=== PATIENT | female | born 1940 | race Caucasian/White ===

== ENCOUNTER → 2016-12-31 | Outpatient (CLI) | payer OTHER ==
[~2016-12-31] MED LIST: ACET650T82 PO; ALBUAER19 INH; ASPI325T45 PO; CYAN10005 PO; GADAVIST IV PRN; KRIL1000 PO; MESA1.2T PO; PRM625 PO; PYRI100T4 PO; SYN112 PO; TIOTCAP INH; VITA400C15 PO; VITATAB19 PO
--- NOTE | 2016-12-31 09:48 | DIAGNOSTIC IMAGING REPORT ---
BRAIN COMBO CLINICAL HISTORY: MENINGIOMA COMPARISON STUDY: 01/17/2016 TECHNIQUE: Utilizing a 1.5 Christiane magnet and dedicated coil, multiplanar, multiecho imaging of the brain was performed pre and postcontrast administration. IV administration of 7.5 mL of Gadavist contrast was uneventful. FINDINGS: The study is unchanged compared to the prior examination of 01/17/2016. The extra-axial mass lesion at the right cavernous sinus region is again noted. Extension to the anterior and posterior temporal fossa region is similar. Trace dural enhancement under medial bases at this site is unchanged. There continues to be encasement of the right carotid artery. Minimal extension to the tentorium is stable. There is no significant mass effect. Diffusion images show no evidence for an acute ischemic process. Minimal age-related chronic small vessel changes noted. Ventricular system is midline. The pituitary and sella remain unremarkable. Optic nerves appear unremarkable. IMPRESSION: 1. 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 2. Dimensions are unchanged from the prior exam. 3. No new or interval finding. The above report was generated using voice recognition software. It may contain grammatical, syntax or spelling errors. Electronically signed by: Tyson Monroe M.D. 12/31/2016 9:47 AM Dictated Date/Time: 12/31/2016 9:36 AM
== END | disposition home or self-care (01) ==
LOC: C.MRIBC 08:23
PROVIDERS: ATTEND Nurse Practitioner
DX: D32.9 Benign neoplasm of meninges, unspecified (principal)

== ENCOUNTER → 2017-01-07 | Day surgery (SDC) | payer OTHER ==
[2016-12-11 10:42] VITALS: Ht 174 cm; Wt 71.8 kg
[~2017-01-07] VITALS: Ht 174 cm; Wt 71.8 kg
[~2017-01-07] MED LIST changes: -GADAVIST IV PRN; +IOPAMIDOL INJ 61% 15 ML VIAL ONE; +LIDOCAINE HCL 1% MPF 5 ML VIAL ONE; +SODIUM CHLORIDE 0.9% INJ 10 ML VIAL ONE
--- NOTE | 2017-01-07 13:29 | History & Physical Bridge - SC ---
H&P Re-Evaluation Bridge Note: I have examined the patient, reviewed the History & Physical and in the interval since the performance of the History & Physical I have noted the following changes of clinical significance: No changes noted
[2017-01-07 13:52] VITALS: TEMP 36.3
--- NOTE | 2017-01-07 13:58 | Discharge Instructions ---
Discharge Instructions Date of Service Jan 07, 2017. Visit Reason for Visit: Lumbar Radiculopathy Discharge Discharge Diagnosis / Problem: right leg pain Discharge Goals Goal(s): Decrease discomfort, Improve function Activity Recommendations Activity Limitations: resume your previous activity Anesthesia . Post Anesthesia Instructions: If you have had General Anesthesia or IV Sedation: * Do not drive today. * Resume driving when surgeon permits. * Do not make important decisions or sign legal documents today. * Call surgeon for: 1. Temperature elevations greater than 101 degrees F. 2. Uncontrollable pain. 3. Excessive bleeding. 4. Persistent nausea and vomiting. 5. Medication intolerance (nausea, vomiting or rash). * For nausea and vomiting use only clear liquids such as: tea, soda, bouillon until nausea subsides, then gradually increase diet as tolerated. * If you have any concerns or questions, call your surgeon's office. If physician is unavailable and it is an emergency, call 911 or go to the nearest emergency room. . Diet Recommendations Recommended Home Diet: resume previous diet Procedures Procedures Performed: LUMBAR EPIDURAL STEROID INJECTION Pending Studies Studies pending at discharge: no Medical Emergencies . Who to Call and When: Medical Emergencies: If at any time you feel your situation is an emergency, please call 911 immediately. . Non-Emergent Contact Non-Emergency issues call your: Specialist . . "Provider Documentation" section prepared by Noel Echols. .
[2017-01-07 14:01] VITALS: BP 140/74; PULSE 64; O2SAT 95
--- NOTE | 2017-01-07 14:10 | OPERATIVE REPORT ---
DATE OF OPERATION: 01/07/2017 PREOPERATIVE DIAGNOSIS: Lumbar spinal stenosis with a right L4 radiculopathy. POSTOPERATIVE DIAGNOSIS: Same. PROCEDURE: Right paramedian L4-L5 intralaminar epidural steroid injection under fluoroscopic guidance. SURGEON: Dr. Noel Echols. INDICATIONS: The patient is a 76-year-old white female who receives epidural steroid injections with good relief. Last one she received was in March 2016; however, the pain has been returning and is problematic to her. She wishes to undergo an epidural injection to provide her with improved function and pain. PHYSICAL EXAMINATION: GENERAL: Pleasant female seated comfortably in no apparent distress. MUSCULOSKELETAL EXAMINATION: She had diminished subjective sensation, more on the right leg than the left leg, although L5 was diminished in the left lower extremity. She was without any focal weakness. Negative seated straight leg raises. CONSENT: Verbal and written consent was obtained from the patient. Risks and benefits were reviewed. Risks include but are not limited to epidural abscess, epidural hematoma, allergic reaction, dural puncture. The patient wishes to proceed. PROCEDURE: The patient was taken back to the special procedures room of the [facility]. She was maintained in a prone position. Backside was cleansed with Betadine x3 and a dry sterile dressing was applied. Fluoroscope was used to identify the L4-L5 intralaminar space. Overlying skin on the right side was anesthetized with 4 mL of lidocaine 1% with a 25 gauge 1.5-inch needle. A 22 gauge 4-1/4 inch Tuohy needle was then directed down towards the intralaminar space. It was advanced under lateral fluoroscopic guidance and loss of resistance was noted at a depth of 5.5 cm. Isovue-300 contrast 1 mL was injected in which demonstrated epidural uptake pattern which was confirmed with both AP and lateral views. She then underwent injection after negative aspiration of 40 mg of Depo-Medrol and 4 mL of preservative free sodium chloride. Injection was well tolerated. DISPOSITION: 1. The patient is taken out into the discharge recovery area where she will be discharged home once discharge criteria have been met. 2. Follow up in the [facility] office in 2-4 weeks. I attest to the content of the Intraoperative Record and any orders documented therein. Any exception s are noted below.
== END | disposition home or self-care (01) ==
LOC: X.SURG 12:42
PROVIDERS: ATTEND Physical Medicine & Rehabilitation
DX: M48.06 Spinal stenosis, lumbar region (principal)

== ENCOUNTER 2018-09-23 07:45 | Inpatient (IN) ==
--- OUTSIDE RECORDS SUMMARY | 2018-09-23 07:48 | External Medical Summary | Continuity of Care Document ---
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 Headache (339.12) Headache (784.0) (R51) Lumbar canal stenosis (724.02) (M48.061) Crohn's disease (555.9) (K50.90) Chronic obstructive pulmonary disease (496) (J44.9) Cervicalgia (723.1) (M54.2) Lumbar radiculopathy (724.4) (M54.16) Carpal tunnel syndrome (354.0) (G56.00) Aortic stenosis (424.1) (I35.0) Rebound headache (339.3) (G44.40) Cervical radiculopathy (723.4) (M54.12) Stroke syndrome Meningioma (225.2) (D32.9) 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 Refills: 0 Levothyroxine Sodium 112 MCG Oral Tablet; TAKE 1 TABLET KAREN Cordero M.D. Refills: 0 Spiriva HandiHaler 18 MCG Inhalation Capsule , M.D. Refills: 0 Premarin 0.625 MG Oral Tablet; TAKE 1 TABLET DAILY. , M.D. Refills: 0 Magnesium 400 MG CAPS; TAKE 1 CAPSULE Daily , M.D. Refills: 0 traMADol HCl - 50 MG Oral Tablet; TAKE 1 TABLET EVERY 6 HOURS NEEDED FOR PAIN. , M.D. Refills: 0 Krill Oil 300 MG Oral Capsule , M.D. Refills: 0 Tylenol Arthritis Pain 8 Hour 650 MG TBCR; TAKE 2 TABLET Twi ce daily PRN , M.D. Refills: 0 Aspirin EC 325 MG Oral Tablet Delayed Release , M.D. Refills: 0 Albuterol Sulfate (5 MG/ML) 0.5% Inhalation Nebulization Kendal ution , M.D. Refills: 0 Vitamin E 400 UNIT Oral Capsule; TAKE 2 CAPSULE Daily , M.D. Refills: 0 Lialda 1.2 GM Oral Tablet Delayed Release; TAKE 3 TABLET Kady ly , M.D. Refills: 0 CVS Vitamin B-12 1000 MCG Oral Tablet , M.D. Refills: 0 Procedures History of Aortic Valve Replacement Stat us: Completed Immunizations Immunizations not documented Family History Mother No pertinent family history (V4.89) (Z78.9) Status: Active Social History - Smoking Status Former smoker Plan of Treatment Planned Observations Planned Goals not documented Results No Known Results Results not documented Encounters Appointment; Jose Looney M.D. 16-Feb-2018 10:00 Encounter Diagnosis: Problem not documented Appointment; Jose Looney M.D. 05-Nov-2017 9:00 Encounter Diagnosis: Problem not documented
[2018-09-23] MEDS ORDERED: SODIUM CHLORIDE 0.9% 1000ML 1,000 ML IV SCH ×2 (08:15→13:15)
[2018-09-23 08:29] LABS: Basophils # (auto) 0.03 K/uL (0-0.2); Basophils % (auto) 0.4 %; Eosinophils % (auto) 1.3 %; Hematocrit (blood only) 42.2 % (37-47); Immature Granulocytes # (auto) 0.01 K/uL (0.00-0.02); Immature Granulocytes % (auto) 0.1 %; Lymphocytes # (auto) 1.74 K/uL (1.2-3.4); Lymphocytes % (auto) 22.7 %; Mean Corpuscular Hgb Conc 33.2 g/dL (32-36); Mean Corpuscular Volume 88.3 fL (80-100); Mean Platelet Volume 9.7 fL (7.4-10.4); Monocytes # (auto) 0.45 K/uL (0.11-0.59); Monocytes % (auto) 5.9 %; Neutrophils # (auto) 5.34 K/uL (1.4-6.5); Neutrophils % (auto) 69.6 %; Platelet Count 187 K/uL (130-400); RDW Coefficient of Variation 14.1 % (11.5-14.5); RDW Standard Deviation 45.8 fL (36.4-46.3); Red Blood Count 4.78 M/uL (4.2-5.4); White Blood Count 7.67 K/uL (4.8-10.8)
[2018-09-23 08:33] LABS: iSTAT Creatinine 0.6 mg/dl (0.6-1.3); iSTAT Hemoglobin 15.3 g/dl (12.0-16.0); iSTAT Ionized Calcium 1.05 mmol/l (1.12-1.32); iSTAT Potassium 3.8 mEq/L (3.3-5.0)
[2018-09-23 08:44] LABS: INR 1.2 (0.9-1.1); Partial Thromboplastin Time 26.2 Seconds (21.0-31.0); Prothrombin Time 12.5 Seconds (9.0-12.0)
[2018-09-23] MEDS ORDERED: IOVERSOL 100ml IV PRN (08:47)
[2018-09-23 08:51] LABS: Albumin Level 3.5 gm/dl (3.4-5.0); Aspartate Aminotransferase 114 U/L (15-37); BUN Creatinine Ratio 10.4 (10-20); Blood Urea Nitrogen 7 mg/dl (7-18); Carbon Dioxide 25 mmol/L (21-32); Chloride 106 mmol/L (98-107); Creatinine Clr Calc Pharmacy 66.5 ml/min; Est GFR (African American) 95.5; Est GFR (Non-African American) 82.4; Glucose 104 mg/dl (70-99); Magnesium 2.1 mg/dl (1.8-2.4); Potassium 3.9 mmol/L (3.5-5.1); Sodium 138 mmol/L (136-145)
--- NOTE | 2018-09-23 08:54 | XRay Report ---
SINGLE VIEW CHEST CLINICAL HISTORY: Generalized weakness. FINDINGS: An AP, portable, upright chest radiograph is compared to study dated 04/22/2012. The examin ation is degraded by portable technique and patient rotation. The patient is status post midline ster notomy and aortic valve surgery. The heart is enlarged and there is atherosclerotic calcification of the thoracic aorta. The pulmonary vasculature is noncongested. There is left basilar scarring/atelect asis. Chronic interstitial thickening is similar to previous. No airspace consolidation or large pleu ral effusion is identified. No pneumothorax is seen. The skeletal structures are osteopenic. The bony thorax is grossly intact. IMPRESSION: Cardiomegaly with no acute cardiopulmonary abnormality. Electronically signed by: Erasto Bhakta M.D. 09/23/2018 8:53 AM
[2018-09-23 09:03] LABS: Alanine Aminotransferase 153 U/L (12-78); Alkaline Phosphatase 366 U/L (45-117); Globulin 3.6 gm/dl (2.5-4.0); Total Protein 7.1 gm/dl (6.4-8.2); Troponin I < 0.015 ng/ml (0-0.045)
--- NOTE | 2018-09-23 09:08 | CT Scan Report ---
CT SCAN OF THE ABDOMEN AND PELVIS WITH IV CONTRAST CLINICAL HISTORY: GI bleeding. Generalized abdominal pain. History of retrosternal mass. COMPARISON STUDY: Abdominal CT dated 02/09/2007. PET/CT dated 03/13/2010. TECHNIQUE: Following the IV administration of 95 cc of Optiray 320, CT scan of the abdomen and pelvi s is performed from the lung bases to the proximal femora. Images are reviewed in the axial, sagittal , and coronal planes. IV contrast was administered without complication. A dose lowering technique wa s utilized adhering to the principles of ALARA. CT DOSE: 338.35 mGy.cm FINDINGS: Lung bases: The heart is enlarged and without pericardial effusion. The coronary arteries and mitral annulus are densely calcified. There is a tiny hiatal hernia. There is bibasilar scarring/atelectasis . No airspace consolidation or pleural effusion is identified. Postoperative change is seen involving the right retrosternal soft tissues. Liver: The contrast-enhanced liver is enlarged, measuring 18.5 cm in length. The liver is markedly he terogeneous in attenuation, and there is nodularity of the hepatic surface contour suggesting early c hange of cirrhosis. There is no intrahepatic biliary ductal dilatation. The hepatic veins and portal veins are patent. A 1.8 cm hemangioma in the left lobe seen on image #144 is again noted. This is bee n seen dating back to at least 2006. Gallbladder: Unremarkable. Spleen: Normal in size and attenuation. Pancreas: Unremarkable. Adrenal glands: Unremarkable. Kidneys: The contrast enhanced kidneys demonstrate mild cortical atrophy and are without hydronephros is. The kidneys enhance symmetrically. A 3.4 cm cyst is noted in the left kidney. Abdominal vasculature: The abdominal aorta is normal in course and caliber noting mild atheroscleroti c calcification. Bowel: There are loops of mildly thick-walled and hyperemic small bowel identified in the right lower quadrant involving the distal ileum. Numerous pill fragment are scattered throughout the bowel. Ther e are postoperative changes from sigmoid colon resection with colocolonic anastomosis. No bowel obstr uction is seen. The appendix is not identified and reported surgically absent. Peritoneum: There is no intraperitoneal free air or abdominal ascites. Lymphadenopathy: None. Pelvic viscera: Although decompressed, the bladder wall appears thickened and there is faint pericyst ic inflammation. The uterus is surgically absent. No adnexal lesion is seen. Findings suggest pelvic floor prolapse. Skeletal structures: The skeletal structures are osteopenic. There is a mild superior endplate compre ssion deformity of T12. There is moderate to advanced lumbosacral spondylosis as well as scoliosis. N o lytic or blastic lesions are seen. IMPRESSION: 1. Findings are consistent with a nonspecific ileitis. This is likely on an infectious or inflammator y basis and clinical correlation will be required. 2. Findings suggest cystitis. Correlation with clinical findings and urinalysis will be required. 3. Cardiomegaly. 4. The liver is enlarged, markedly heterogeneous in attenuation, and there is nodularity of the hepat ic surface contour suggesting changes of cirrhosis. This represents a significant change from the 201 0 examination. Correlation with liver function studies is recommended. 5. Postoperative change is suggested in the retrosternal region. 6. There is postoperative change from sigmoid colon resection with colocolonic anastomosis. No bowel obstruction is identified. 7. Additional findings as above. Electronically signed by: Erasto Bhakta M.D. 09/23/2018 9:06 AM
[2018-09-23] MEDS ORDERED: SODIUM CHLORIDE 0.9% 1000ML 1,000 ML IV ONE (09:27)
[2018-09-23] MEDS ORDERED: cefTRIAXone SODIUM 1,000 MG/50 ML BAG IV STA (09:27)
[2018-09-23] MEDS ORDERED: METOPROLOL TARTRATE 1 MG/ML VIAL IV STA ×2 (09:38→10:15)
--- NOTE | 2018-09-23 10:15 | Emergency Department Note ---
Entered by Peggy Heaton acting as a scribe for Malcolm Brown DO History of Present Illness General Chief complaint: GI Assessment Stated complaint: LOWER COLON PROBLEMS,DIARRHEA,BLOOD Source: patient History of Present Illness Provider complaint: blood in her stool Onset (ago): day(s) (last night) Location: abdomen, left and right Maximum Pain Intensity: 8 Quality: + other (blood in stool) Associated symptoms: + other (abdominal pain); no nausea/vomiting (nausea, no vomiting) The patient is a 78 year old female who presents to the Emergency Department with complaints of blood in her stool last night. She rates her discomfort at an 8/10. The patient states that she has been constipated for 1 month but states that she has been taking Miralax. She states that this has helped over the last week. She reports that Dr. Lynn instructed her to use prune juice which also helped. The patient states that last night she had bloody bowel movements. The patient reports having nausea and intermittent abdominal pain but denies vomiting. She reports a history of a blood transfusion in 2012 or 2013. The patient states that Dr. Jordan recently placed on her on Coumadin and Metoprolol. The patient states that she has had colonoscopies and reports a history of diverticulitis and colitis. She reports a history of a colon resection and states that she had 18 inches taken out in 2002. Home Medications Home Medications Medication Instructions Recorded Confirmed Type Spiriva with HandiHaler 1 cap INHALATION DAILY 04/12/18 09/23/18 History acetaminophen [Tylenol Arthritis 2 tab PO Q8H PRN 04/12/18 09/23/18 History Pain] cyanocobalamin (vitamin B-12) 1,000 mcg PO DAILY 04/12/18 09/23/18 History [Vitamin B-12] gabapentin 100 mg PO TID PRN 04/12/18 09/23/18 History levothyroxine 112 mcg PO DAILY 04/12/18 09/23/18 History mesalamine [Lialda] 3.6 g PO QAM 04/12/18 09/23/18 History tramadol 50 mg PO DAILY PRN 04/12/18 09/23/18 History vitamin E 800 unit PO DAILY 04/12/18 09/23/18 History albuterol sulfate 2 puff INHALATION Q6H PRN 09/23/18 09/23/18 History aspirin [Aspir-81] 81 mg PO DAILY 09/23/18 09/23/18 History atorvastatin 40 mg PO HS 09/23/18 09/23/18 History conjugated estrogens [Premarin] 0.625 mg PO DAILY 09/23/18 09/23/18 History metoprolol succinate 12.5 mg PO BID 09/23/18 09/23/18 History warfarin 2 mg PO UD 09/23/18 09/23/18 History Allergies Allergy/AdvReac Type Severity Reaction Status Date / Time Penicillins Allergy Mild HIVES Verified 09/23/18 08:18 Past Med/Surg History Medical History Crohn disease (Chronic) Ulcerative colitis (Chronic) Diverticulitis (Chronic) Hypothyroidism (Chronic) Meningioma (Chronic) COPD (chronic obstructive pulmonary disease) (Chronic) Atrial flutter (Chronic) Chondrosarcoma (Chronic Unknown) S/P resection History of thyroidectomy (Chronic Unknown) History of total hysterectomy (Chronic Unknown) "2001 " Intracranial meningioma (Chronic Unknown) Carotid artery occlusion (Chronic) Crohns disease (Chronic) Former smoker (Chronic) Hyperlipidemia (Chronic) Osteoarthritis (Chronic) Spinal stenosis (Chronic) Stenosis of aorta (Chronic) Valvular heart disease (Chronic) Cardiac murmur Surgical History S/P colon resection (Chronic) S/P aortic valve replacement (Chronic) History of appendectomy (Chronic) History of thoracic surgery (Chronic) Social History Preferred Language: Arabic Communication Ability: Effective Beliefs That Will Affect Care: None Current Living Situation: Alone Other Information That Helps Us Care for You: No Feels Safe at Home: Yes Safety Concerns: Feels Safe At This Time Smoking Status: Former smoker Second Hand Exposure: No Hx Alcohol Use: Yes Alcohol type: beer and wine Hx Substance Use: No Review of Systems See HPI for pertinent positives & negatives. and A total of 10 systems reviewed and were otherwise negative Physical Exam Vital Signs Vital Signs - 24 hr 09/23/18 07:47 09/23/18 08:30 09/23/18 08:56 Temperature 36.4 C L Temperature Source Oral Sepsis Recent Fever Within 48 Hours No Sepsis Action Taken by Nursing No Action Required Pulse Rate 129 H Pulse Rate [Apical] 126 H 124 H Pulse Rate [Finger] Pulse Rhythm [Apical] Pulse Strength [Apical] Respiratory Rate 18 16 16 Respiratory Effort / Characteristics Non-Labored Spontaneous Respiratory Depth Normal Respiratory Pattern Regular Blood Pressure 109/68 Blood Pressure [Left Arm] Blood Pressure [Right Radial Artery] 93/66 L 109/73 Blood Pressure Mean 81 Blood Pressure Mean [Left Arm] Blood Pressure Mean [Right Radial Artery] 75 85 Blood Pressure Position Sitting Blood Pressure Position [Left Arm] Blood Pressure Position [Right Radial Artery] Pulse Oximetry 94 97 96 Oxygen Delivery Method Room Air Room Air Room Air 09/23/18 09:34 09/23/18 10:04 09/23/18 10:08 Temperature Temperature Source Sepsis Recent Fever Within 48 Hours Sepsis Action Taken by Nursing Pulse Rate Pulse Rate [Apical] 124 H 123 H Pulse Rate [Finger] Pulse Rhythm [Apical] Pulse Strength [Apical] Respiratory Rate 18 15 Respiratory Effort / Characteristics Respiratory Depth Respiratory Pattern Blood Pressure Blood Pressure [Left Arm] Blood Pressure [Right Radial Artery] 104/80 120/86 Blood Pressure Mean Blood Pressure Mean [Left Arm] Blood Pressure Mean [Right Radial Artery] 88 97 Blood Pressure Position Blood Pressure Position [Left Arm] Blood Pressure Position [Right Radial Artery] Pulse Oximetry 95 95 97 Oxygen Delivery Method Room Air Room Air Room Air 09/23/18 10:15 09/23/18 10:24 09/23/18 11:25 Temperature Temperature Source Sepsis Recent Fever Within 48 Hours Sepsis Action Taken by Nursing Pulse Rate Pulse Rate [Apical] 112 H 104 H 120 H Pulse Rate [Finger] Pulse Rhythm [Apical] Regular Pulse Strength [Apical] Normal Respiratory Rate 17 20 18 Respiratory Effort / Characteristics Non-Labored Spontaneous Respiratory Depth Normal Respiratory Pattern Regular Blood Pressure Blood Pressure [Left Arm] Blood Pressure [Right Radial Artery] 111/89 114/87 112/81 Blood Pressure Mean Blood Pressure Mean [Left Arm] Blood Pressure Mean [Right Radial Artery] 96 96 91 Blood Pressure Position Blood Pressure Position [Left Arm] Blood Pressure Position [Right Radial Artery] Lying Pulse Oximetry 97 99 97 Oxygen Delivery Method Room Air Room Air Room Air 09/23/18 13:15 09/23/18 15:40 Temperature 36.6 C 36.3 C L Temperature Source Oral Oral Sepsis Recent Fever Within 48 Hours Sepsis Action Taken by Nursing Pulse Rate Pulse Rate [Apical] 120 H Pulse Rate [Finger] 91 H Pulse Rhythm [Apical] Irregular Pulse Strength [Apical] Normal Respiratory Rate 18 18 Respiratory Effort / Characteristics Non-Labored Respiratory Depth Normal Respiratory Pattern Regular Blood Pressure Blood Pressure [Left Arm] 98/65 L Blood Pressure [Right Radial Artery] 116/70 Blood Pressure Mean Blood Pressure Mean [Left Arm] 76 Blood Pressure Mean [Right Radial Artery] 85 Blood Pressure Position Blood Pressure Position [Left Arm] Lying Blood Pressure Position [Right Radial Artery] Sitting Pulse Oximetry 97 94 Oxygen Delivery Method Room Air Room Air GENERAL: Patient is awake, alert, and in no acute distress.Patient is resting comfortably and showing no signs of anxiety EYES: The conjunctivae are clear. The pupils are round and reactive. EARS, NOSE, MOUTH AND THROAT: The nose is without any evidence of any deformity. Mucous membranes are moist.Tongue is midline NECK: The neck is nontender and supple. RESPIRATORY: Normal respiratory effort is noted. There is no evidence of wheezing rhonchi or rales to auscultation. CARDIOVASCULAR: Tachycardic rate. Irregular rhythm. No murmur. GASTROINTESTINAL: The abdomen is soft and mildly distended. There is lower abdominal tenderness to palpation which was significant. RECTAL: Brown stool, trace heme positive. BACK: No midline tenderness or or step-off noted range of motion in flexion extension as well as rotation no signs of muscle spasm noted. PELVIS: The Pelvis is stable. No tenderness to palpation is noted. MUSCULOSKELETAL/EXTREMITIES: There is no evidence of gross deformity. Full range of motion is noted in the hips and shoulders. SKIN: There is no obvious evidence of any rash. There are no petechiae, pallor or cyanosis noted. NEUROLOGIC: Patient is awake alert and oriented x3. Strength is symmetric. Patellar reflexes are 2+ bilaterally. Course 0754: The patient was evaluated in room B5. A history and physical were performed. 0938: I updated the patient who verbalized agreement and understanding of the treatment plan. 0944: I discussed the patient's case with Kalyn Bonilla who will evaluate the patient for further management. 1004: I discussed the patient's case with Dr. Garza-Cardiology. Consultations Consultation #1: Kalyn Bonilla Time: 09:44 Consultation #2: Dr. Garza-Cardiology Time: 10:04 Administered Medications Ciprofloxacin (Cipro) 400 mg in 200 mls @ 100 mls/hr IV Q12H SALLY Stop: 10/03/18 13:59 Last Admin: 09/23/18 15:42 Dose: 100 mls/hr Documented by: [id number] Metronidazole (Flagyl) 500 mg in 100 mls @ 100 mls/hr IV Q8 SALLY Stop: 10/03/18 13:29 Last Admin: 09/23/18 15:11 Dose: 100 mls/hr Documented by: [id number] Sodium Chloride (Nss 1000ml) 1,000 mls @ 80 mls/hr IV .[id number] SALLY Stop: 09/24/18 01:44 Last Admin: 09/23/18 15:11 Dose: 80 mls/hr Documented by: [id number] Metoprolol Succinate (Toprol Xl) 25 mg PO BID SALLY Stop: 10/23/18 13:59 Last Admin: 09/23/18 15:26 Dose: 25 mg Documented by: [id number] Polyethylene Glycol (Miralax Powder Packet) 119 gm PO 1600,2100 SALLY Stop: 09/23/18 21:01 Last Admin: 09/23/18 16:06 Dose: 119 gm Documented by: [id number] Discontinued Medications Sodium Chloride (Nss 1000ml) 1,000 mls @ 999 mls/hr IV .Q1H1M SALLY Stop: 09/23/18 09:15 Last Infusion: 09/23/18 10:09 Dose: 0 mls/hr Documented by: [id number] Admin: 09/23/18 08:27 Dose: 999 mls/hr Documented by: [id number] Ceftriaxone Sodium (Rocephin) 1,000 mg in 50 mls @ 100 mls/hr IV NOW STA Stop: 09/23/18 09:56 Last Infusion: 09/23/18 10:10 Dose: 0 mls/hr Documented by: [id number] Admin: 09/23/18 09:32 Dose: 100 mls/hr Documented by: [id number] Sodium Chloride (Nss 1000ml) 1,000 mls @ 999 mls/hr IV .Q1H1M ONE Stop: 09/23/18 10:27 Last Infusion: 09/23/18 11:08 Dose: 0 mls/hr Documented by: [id number] Admin: 09/23/18 10:07 Dose: 999 mls/hr Documented by: [id number] Ioversol (Optiray 320 100ml) 95 ml IV ONCE PRN PRN Reason: Interaction Checking Stop: 09/27/18 08:46 Last Admin: 09/23/18 08:48 Dose: 95 ml Documented by: [id number] Metoprolol Tartrate (Lopressor) 5 mg IV NOW STA Stop: 09/23/18 09:39 Last Admin: 09/23/18 10:03 Dose: 5 mg Documented by: [id number] Metoprolol Tartrate (Lopressor) 5 mg IV NOW STA Stop: 09/23/18 10:16 Last Admin: 09/23/18 10:23 Dose: 5 mg Documented by: [id number] Medical Decision Making Differential Diagnosis Differential diagnosis: Etiologies such as biliary colic, cholecystitis, hepatitis, perihepatitis, pancreatitis, cardiac disease, pancreatitis, gastritis, peptic ulcer disease, appendicitis, ovarian cyst, ovarian torsion, pelvic inflammatory disease, cystitis, diverticulitis, mesenteric ischemia, inflammatory bowel disease, ileus, bowel obstruction, aortic pathology, shingles, as well as others were considered. Medical Records Attestation: I reviewed the patient's medical records. Home Medications Current Medication List: was personally reviewed by me Laboratory Data Attestation: I reviewed the patient's lab results. Result diagrams: 09/23/18 13:51 09/23/18 08:15 Lab Results 09/23/18 09/23/18 09/23/18 Range/Units 08:15 08:15 08:15 WBC 7.67 (4.8-10.8) K/uL RBC 4.78 (4.2-5.4) M/uL Hgb 14.0 (12.0-16.0) g/dL POC Hgb (12.0-16.0) g/dl Hct 42.2 (37-47) % POC Hct (37-47) % MCV 88.3 (80-100) fL MCH 29.3 (25-34) pg MCHC 33.2 (32-36) g/dL RDW Std Deviation 45.8 (36.4-46.3) fL RDW Coeff of Brendon 14.1 (11.5-14.5) % Plt Count 187 (130-400) K/uL MPV 9.7 (7.4-10.4) fL Immature Gran % (Auto) 0.1 % Neut % (Auto) 69.6 % Lymph % (Auto) 22.7 % Castro % (Auto) 5.9 % Eos % (Auto) 1.3 % Baso % (Auto) 0.4 % Immature Gran # (Auto) 0.01 (0.00-0.02) K/uL Neut # (Auto) 5.34 (1.4-6.5) K/uL Lymph # (Auto) 1.74 (1.2-3.4) K/uL Castro # (Auto) 0.45 (0.11-0.59) K/uL Eos # (Auto) 0.10 (0-0.5) K/uL Baso # (Auto) 0.03 (0-0.2) K/uL PT 12.5 H (9.0-12.0) Seconds INR 1.2 H (0.9-1.1) APTT 26.2 (21.0-31.0) Seconds PTT Ratio 1.0 POC Sodium (135-144) mEq/L Sodium 138 (136-145) mmol/L POC Potassium (3.3-5.0) mEq/L Potassium 3.9 (3.5-5.1) mmol/L POC Chloride (101-112) mEq/L Chloride 106 (98-107) mmol/L Carbon Dioxide 25 (21-32) mmol/L POC Total CO2 (24-31) mEq/l Anion Gap 8.0 (3-11) POC Anion Gap (16-25) mmol/L POC BUN (7-18) mg/dl BUN 7 (7-18) mg/dl Creatinine 0.70 (0.6-1.2) mg/dl POC Creatinine (0.6-1.3) mg/dl Est Cr Clr Drug Dosing 66.5 ml/min Est GFR ( Amer) 95.5 Est GFR (Non-Af Amer) 82.4 BUN/Creatinine Ratio 10.4 (10-20) Glucose 104 H (70-99) mg/dl POC Glucose (other) (70-99) mg/dl Calcium 9.0 (8.5-10.1) mg/dl POC Ioniz Calcium Natalie (1.12-1.32) mmol/l Magnesium 2.1 (1.8-2.4) mg/dl Total Bilirubin 2.0 H (0.2-1) mg/dl AST 114 H (15-37) U/L ALT 153 H (12-78) U/L Alkaline Phosphatase 366 H (45-117) U/L Troponin I < 0.015 (0-0.045) ng/ml Total Protein 7.1 (6.4-8.2) gm/dl Albumin 3.5 (3.4-5.0) gm/dl Globulin 3.6 (2.5-4.0) gm/dl Albumin/Globulin Ratio 1.0 (0.9-2) TSH 1.500 (0.300-4.500) uIu/ml Hep Bs Antigen (Neg) Hepatitis C Antibody (Neg) Blood Type Antibody Screen Crossmatch 09/23/18 09/23/18 09/23/18 Range/Units 08:15 08:19 09:05 WBC (4.8-10.8) K/uL RBC (4.2-5.4) M/uL Hgb (12.0-16.0) g/dL POC Hgb 15.3 (12.0-16.0) g/dl Hct (37-47) % POC Hct 45 (37-47) % MCV (80-100) fL MCH (25-34) pg MCHC (32-36) g/dL RDW Std Deviation (36.4-46.3) fL RDW Coeff of Brendon (11.5-14.5) % Plt Count (130-400) K/uL MPV (7.4-10.4) fL Immature Gran % (Auto) % Neut % (Auto) % Lymph % (Auto) % Castro % (Auto) % Eos % (Auto) % Baso % (Auto) % Immature Gran # (Auto) (0.00-0.02) K/uL Neut # (Auto) (1.4-6.5) K/uL Lymph # (Auto) (1.2-3.4) K/uL Castro # (Auto) (0.11-0.59) K/uL Eos # (Auto) (0-0.5) K/uL Baso # (Auto) (0-0.2) K/uL PT (9.0-12.0) Seconds INR (0.9-1.1) APTT (21.0-31.0) Seconds PTT Ratio POC Sodium 138 (135-144) mEq/L Sodium (136-145) mmol/L POC Potassium 3.8 (3.3-5.0) mEq/L Potassium (3.5-5.1) mmol/L POC Chloride 101 (101-112) mEq/L Chloride (98-107) mmol/L Carbon Dioxide (21-32) mmol/L POC Total CO2 25 (24-31) mEq/l Anion Gap (3-11) POC Anion Gap 18.0 (16-25) mmol/L POC BUN 6 L (7-18) mg/dl BUN (7-18) mg/dl Creatinine (0.6-1.2) mg/dl POC Creatinine 0.6 (0.6-1.3) mg/dl Est Cr Clr Drug Dosing ml/min Est GFR ( Amer) Est GFR (Non-Af Amer) BUN/Creatinine Ratio (10-20) Glucose (70-99) mg/dl POC Glucose (other) 108 H (70-99) mg/dl Calcium (8.5-10.1) mg/dl POC Ioniz Calcium Natalie 1.05 L (1.12-1.32) mmol/l Magnesium (1.8-2.4) mg/dl Total Bilirubin (0.2-1) mg/dl AST (15-37) U/L ALT (12-78) U/L Alkaline Phosphatase (45-117) U/L Troponin I (0-0.045) ng/ml Total Protein (6.4-8.2) gm/dl Albumin (3.4-5.0) gm/dl Globulin (2.5-4.0) gm/dl Albumin/Globulin Ratio (0.9-2) TSH (0.300-4.500) uIu/ml Hep Bs Antigen (Neg) Hepatitis C Antibody (Neg) Blood Type Cancelled O Negative Antibody Screen Cancelled NEGATIVE Crossmatch See Detail 09/23/18 09/23/18 09/23/18 Range/Units 13:50 13:51 14:53 WBC (4.8-10.8) K/uL RBC (4.2-5.4) M/uL Hgb 12.6 (12.0-16.0) g/dL POC Hgb (12.0-16.0) g/dl Hct 38.7 (37-47) % POC Hct (37-47) % MCV (80-100) fL MCH (25-34) pg MCHC (32-36) g/dL RDW Std Deviation (36.4-46.3) fL RDW Coeff of Brendon (11.5-14.5) % Plt Count (130-400) K/uL MPV (7.4-10.4) fL Immature Gran % (Auto) % Neut % (Auto) % Lymph % (Auto) % Castro % (Auto) % Eos % (Auto) % Baso % (Auto) % Immature Gran # (Auto) (0.00-0.02) K/uL Neut # (Auto) (1.4-6.5) K/uL Lymph # (Auto) (1.2-3.4) K/uL Castro # (Auto) (0.11-0.59) K/uL Eos # (Auto) (0-0.5) K/uL Baso # (Auto) (0-0.2) K/uL PT (9.0-12.0) Seconds INR (0.9-1.1) APTT (21.0-31.0) Seconds PTT Ratio POC Sodium (135-144) mEq/L Sodium (136-145) mmol/L POC Potassium (3.3-5.0) mEq/L Potassium (3.5-5.1) mmol/L POC Chloride (101-112) mEq/L Chloride (98-107) mmol/L Carbon Dioxide (21-32) mmol/L POC Total CO2 (24-31) mEq/l Anion Gap (3-11) POC Anion Gap (16-25) mmol/L POC BUN (7-18) mg/dl BUN (7-18) mg/dl Creatinine (0.6-1.2) mg/dl POC Creatinine (0.6-1.3) mg/dl Est Cr Clr Drug Dosing ml/min Est GFR ( Amer) Est GFR (Non-Af Amer) BUN/Creatinine Ratio (10-20) Glucose (70-99) mg/dl POC Glucose (other) (70-99) mg/dl Calcium (8.5-10.1) mg/dl POC Ioniz Calcium Natalie (1.12-1.32) mmol/l Magnesium (1.8-2.4) mg/dl Total Bilirubin (0.2-1) mg/dl AST (15-37) U/L ALT (12-78) U/L Alkaline Phosphatase (45-117) U/L Troponin I < 0.015 (0-0.045) ng/ml Total Protein (6.4-8.2) gm/dl Albumin (3.4-5.0) gm/dl Globulin (2.5-4.0) gm/dl Albumin/Globulin Ratio (0.9-2) TSH (0.300-4.500) uIu/ml Hep Bs Antigen Neg (Neg) Hepatitis C Antibody Neg (Neg) Blood Type Antibody Screen Crossmatch Imaging Data Radiologist's Impression: Radiology results as stated below per my review and the radiologist's interpretation: SINGLE VIEW CHEST CLINICAL HISTORY: Generalized weakness. FINDINGS: An AP, portable, upright chest radiograph is compared to study dated 04/22/2012. The examination is degraded by portable technique and patient rotation. The patient is status post midline sternotomy and aortic valve surg lis. The heart is enlarged and there is atherosclerotic calcification of the thoracic aorta. The pulmonary vasculature is noncongested. There is left basilar scarring/atelectasis. Chronic interstitial thickening is similar to previous. No airspace consolidation or large pleural effusion is identified. No pneumothorax is seen. The skeletal structures are osteopenic. The bony thorax is grossly intact. IMPRESSION: Cardiomegaly with no acute cardiopulmonary abnormality. Electronically signed by: Erasto Bhakta M.D. 09/23/2018 8:[address] SCAN OF THE ABDOMEN AND PELVIS WITH IV CONTRAST CLINICAL HISTORY: GI bleeding. Generalized abdominal pain. History of retrosternal mass. COMPARISON STUDY: Abdominal CT dated 02/09/2007. PET/CT dated 03/13/2010. TECHNIQUE: Following the IV administration of 95 cc of Optiray 320, CT scan of the abdomen and pelvis is performed from the lung bases to the proximal femora. Images are reviewed in the axial, sagittal, and coronal planes. IV contrast was administered without complication. A dose lowering technique was utilized adhering to the principles of ALARA. CT DOSE: 338.35 mGy.cm FINDINGS: Lung bases: The heart is enlarged and without pericardial effusion. The coronary arteries and mitral annulus are densely calcified. There is a tiny hiatal hernia. There is bibasilar scarring/atelectasis. No airspace consolidation or pleural effusion is identified. Postoperative change is seen involving the right retrosternal soft tissues. Liver: The contrast-enhanced liver is enlarged, measuring 18.5 cm in length. The liver is markedly heterogeneous in attenuation, and there is nodularity of the hepatic surface contour suggesting early change of cirrhosis. There is no intrahepatic biliary ductal dilatation. The hepatic veins and portal veins are patent. A 1.8 cm hemangioma in the left lobe seen on image #144 is again noted. This is been seen dating back to at least 2006. Gallbladder: Unremarkable. Spleen: Normal in size and attenuation. Pancreas: Unremarkable. Adrenal glands: Unremarkable. Kidneys: The contrast enhanced kidneys demonstrate mild cortical atrophy and are without hydronephrosis. The kidneys enhance symmetrically. A 3.4 cm cyst is noted in the left kidney. Abdominal vasculature: The abdominal aorta is normal in course and caliber noting mild atherosclerotic calcification. Bowel: There are loops of mildly thick-walled and hyperemic small bowel identified in the right lower quadrant involving the distal ileum. Numerous pill fragment are scattered throughout the bowel. There are postoperative changes from sigmoid colon resection with colocolonic anastomosis. No bowel obstruction is seen. The appendix is not identified and reported surgically absent. Peritoneum: There is no intraperitoneal free air or abdominal ascites. Lymphadenopathy: None. Pelvic viscera: Although decompressed, the bladder wall appears thickened and there is faint pericystic inflammation. The uterus is surgically absent. No adnexal lesion is seen. Findings suggest pelvic floor prolapse. Skeletal structures: The skeletal structures are osteopenic. There is a mild superior endplate compression deformity of T12. There is moderate to advanced lumbosacral spondylosis as well as scoliosis. No lytic or blastic lesions are seen. IMPRESSION: 1. Findings are consistent with a nonspecific ileitis. This is likely on an infectious or inflammatory basis and clinical correlation will be required. 2. Findings suggest cystitis. Correlation with clinical findings and urinalysis will be required. 3. Cardiomegaly. 4. The liver is enlarged, markedly heterogeneous in attenuation, and there is nodularity of the hepatic surface contour suggesting changes of cirrhosis. This represents a significant change from the 2010 examination. Correlation with liver function studies is recommended. 5. Postoperative change is suggested in the retrosternal region. 6. There is postoperative change from sigmoid colon resection with colocolonic anastomosis. No bowel obstruction is identified. 7. Additional findings as above. Electronically signed by: Erasto Bhakta M.D. 09/23/2018 9:06 AM ECG Data Attestation: I personally reviewed and interpreted this ECG as follows: Indication: abdominal pain Rate (beats per minute): 126 Rhythm: atrial fibrillation Findings: + ST depression (inferior and lateral); no PVC Comparison ECG Date: from (04/22/12) Change: no significant change Blood Pressure Blood Pressure Findings: Normal blood pressure MDM Narrative The patient is a 78-year-old female who presented to the emergency department for an evaluation of abdominal pain and intermittent constipation. The patient has a history of atrial fibrillation. She came in with rapid atrial fibrillation and an abnormal EKG with significant ST segment abnormalities. The patient was treated with IV fluids as well as IV Lopressor. She was also started on IV antibiotics for possible cystitis as well as ileitis. I discussed the patient's laboratory and radiographic studies with her. On subsequent reevaluation she was somewhat improved. I also discussed her case with the on- call [facility] hospitalist group as well as the on-call [facility] home care provider. They have agreed to evaluate the patient in the emergency department for further management and disposition. Impression & Plan Atrial fibrillation with RVR, Abnormal ECG, Elevated LFTs, Ileitis, GI bleed Discharge Plan Visit Data *Final* Discharge Date/Time: 09/23/18 11:26 Chief Complaint: GI Assessment Stated Complaint: LOWER COLON PROBLEMS,DIARRHEA,BLOOD ED Provider: Malcolm Brown Discharge Problem: Atrial fibrillation with RVR, Abnormal ECG, Elevated LFTs, Ileitis, GI bleed Patient Disposition: Admitted As Inpatient Discharge Instructions Interventions: ED Discharge Assessment Last Done: 09/23/18 11:26 Discharge Problem: GI bleed Qualifiers: GI bleed type/associated pathology: unspecified gastrointestinal hemorrhage type Qualified Code(s): K92.2 - Gastrointestinal hemorrhage, unspecified The scribe's documentation has been prepared under my direction and personally reviewed by me in its entirety. I confirm that the note above accurately reflects all work, treatment, procedures, and medical decision making performed by me.
--- NOTE | 2018-09-23 11:15 | History & Physical Report ---
Date of Service September 23, 2018 Assessment & Plan (1) Abdominal pain: (2) Ileitis: (3) GI bleed: Pt reports hx ulcerative colitis. Out patient GI record states hx Crohn's. Hx diverticulitis s/p colon resection Pt presented to ER with c/o lower abdominal pain for past several days. Reports hx constipation and intermittent nausea x 1 month, taking Miralax. Reports loose stools last night. Also reports some red blood in bowel movements. In ER pt afebrile, P: 129, R: 18, BP: 109/68, 94% on RA. WBC: 7.6, H/H: 14/42, INR: 1.2, Total bili: 2.0, AST: 114, ALT: 153, Alk Phos: 366, INR: 1.2 (on Coumadin). Reported heme positive stool. CT ABD/PELVIS: Findings are consistent with a nonspecific ileitis. This is likely on an infectious or inflammatory basis and clinical correlation will be required. The liver is enlarged, markedly heterogeneous in attenuation, and there is nodularity of the hepatic surface contour suggesting changes of cirrhosis. This represents a significant change from the 2010 examination. There is postoperative change from sigmoid colon resection with colocolonic anastomosis. No bowel obstruction is identified. -stool culture, c-diff pending -cipro, flagyl -continue mesalamine -Type and cross and hold -IVF -clear liquid diet -GI consult, appreciate recommendations -monitor CBC, CMP (4) Atrial flutter: 09/15/18 Cardiology started Toprol 12.5mg BID and Coumadin for atrial flutter with HR 128. Had recent echo outpatient (unable to view full report, EF: 40%) Patient had INR of 1.0 yesterday and reports did not get further dosing instructions and has been taking 2 mg daily. She states continues with palpitations and her HR at home has been 120. In ER P: 120's. Pt did not have her am medications. Was given 2L NSS, Lopressor 10mg IV total. No significant electrolyte abnormality, TSH: 1.5 INR: 1.2 -monitor INR -will hold coumadin with reported rectal bleeding -will increase toprol to 25mg BID -lopressor 5mg IV Q6H prn HR>120 -IVF -cardiology consult, appreciate recommendations (5) Elevated LFTs: Total bili: 2.0, AST: 114, ALT: 153, Alk Phos: 366, INR: 1.2 (on Coumadin). 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 Patient states his been having constipation for the past month. Also having intermittent nausea. States past several days has been having lower abdominal pain which increased last night. Patient states his been taking MiraLAX and last night had multiple episodes of loose stools. She states his been noticing some red blood in stool. States past several days has been having mostly liquid diet as to not worsen abdominal pain. Reports decreased abdominal discomfort after having BM. Patient with recent history of rapid atrial flutter. Saw Dr. Jordan with cardiology on 09/15/2018 and had HR of 128, Toprol 12.5 mg twice daily and Coumadin was started. Patient had INR of 1.0 yesterday and reports did not get further dosing instructions and has been taking 2 mg daily. She states continues with palpitations and her HR at home has been 120. Has been feeling chilled. No known fevers. Denies diaphoresis,vomiting, LARKIN, dizziness, syncope, vision changes, neck pain, CP, SOB, orthopnea, palpitations, cough, so re throat, choking, otalgia, rhinorrhea, paresthesias, weakness, extremity weakness, extremity edema, rashes, urinary symptoms. History echo 09/21/2018 (unable to view for report, EF: 40%) History colonoscopy 2014. No active colitis History MRI brain 2017: Meningioma unchanged from MRI 2016. Allergies Allergy/AdvReac Type Severity Reaction Status Date / Time Penicillins Allergy Mild HIVES Verified 09/23/18 08:18 Home Medications Home Medications Medication Instructions Recorded Confirmed Type Spiriva with HandiHaler 1 cap INHALATION DAILY 04/12/18 09/23/18 History acetaminophen [Tylenol Arthritis 2 tab PO Q8H PRN 04/12/18 09/23/18 History Pain] cyanocobalamin (vitamin B-12) 1,000 mcg PO DAILY 04/12/18 09/23/18 History [Vitamin B-12] gabapentin 100 mg PO TID PRN 04/12/18 09/23/18 History levothyroxine 112 mcg PO DAILY 04/12/18 09/23/18 History mesalamine [Lialda] 3.6 g PO QAM 04/12/18 09/23/18 History tramadol 50 mg PO DAILY PRN 04/12/18 09/23/18 History vitamin E 800 unit PO DAILY 04/12/18 09/23/18 History albuterol sulfate 2 puff INHALATION Q6H PRN 09/23/18 09/23/18 History aspirin [Aspir-81] 81 mg PO DAILY 09/23/18 09/23/18 History atorvastatin 40 mg PO HS 09/23/18 09/23/18 History conjugated estrogens [Premarin] 0.625 mg PO DAILY 09/23/18 09/23/18 History metoprolol succinate 12.5 mg PO BID 09/23/18 09/23/18 History warfarin 2 mg PO UD 09/23/18 09/23/18 History Past Med/Surg History Medical History Crohn disease (Chronic) Ulcerative colitis (Chronic) Diverticulitis (Chronic) Hypothyroidism (Chronic) Meningioma (Chronic) COPD (chronic obstructive pulmonary disease) (Chronic) Atrial flutter (Chronic) Chondrosarcoma (Chronic Unknown) S/P resection History of thyroidectomy (Chronic Unknown) History of total hysterectomy (Chronic Unknown) "2001 " Intracranial meningioma (Chronic Unknown) Carotid artery occlusion (Chronic) Crohns disease (Chronic) Former smoker (Chronic) Hyperlipidemia (Chronic) Osteoarthritis (Chronic) Spinal stenosis (Chronic) Stenosis of aorta (Chronic) Valvular heart disease (Chronic) Cardiac murmur Surgical History S/P colon resection (Chronic) S/P aortic valve replacement (Chronic) History of appendectomy (Chronic) History of thoracic surgery (Chronic) Social History Preferred Language: Swedish Communication Ability: Effective Beliefs That Will Affect Care: None Current Living Situation: Alone Other Information That Helps Us Care for You: No Feels Safe at Home: Yes Safety Concerns: Feels Safe At This Time Smoking Status: Former smoker Second Hand Exposure: No Hx Alcohol Use: Yes Alcohol type: beer and wine Hx Substance Use: No Review of Systems Review of Systems: All systems reviewed & are unremarkable except as noted in HPI & below Physical Exam Physical Exam: General: no acute distress, WDWN Head: normocephalic, atraumatic Eyes: PERRL, EOM's intact, conjunctiva non-injected, anicteric ENT: normal inspection external ears, nose, mucous membranes moist Neck: supple, trachea midline Lungs: clear, no respiratory distress, no wheezing/rhonchi/rales Chest: healed surgical scar, no rashes noted CV: irregularly irregular, no pretibial edema Abd: normal BS, soft, +tender to RLQ, LLQ without rebound or guarding Ext: no cyanosis, no calf tenderness Neuro: A&O x 3, no focal deficits noted, normal affect Skin: warm, dry Results & Data Vital Signs (Past 12 Hours) Vital Signs Temp Pulse Pulse Resp BP BP Pulse Ox 09/23/18 10:24 104 H 20 114/87 99 09/23/18 10:15 112 H 17 111/89 97 09/23/18 10:08 123 H 15 120/86 97 09/23/18 10:04 124 H 18 104/80 95 09/23/18 09:34 95 09/23/18 08:56 124 H 16 109/73 96 09/23/18 08:30 126 H 16 93/66 L 97 09/23/18 07:47 36.4 C L 129 H 18 109/68 94 Laboratory Results Short CBC 09/23/18 Range/Units 08:15 WBC 7.67 (4.8-10.8) K/uL Hgb 14.0 (12.0-16.0) g/dL Hct 42.2 (37-47) % Plt Count 187 (130-400) K/uL BMP 09/23/18 08:15 Sodium 138 Potassium 3.9 Chloride 106 Carbon Dioxide 25 BUN 7 Creatinine 0.70 Glucose 104 H Calcium 9.0 Cardiac Enzymes 09/23/18 Range/Units 08:15 Troponin I < 0.015 (0-0.045) ng/ml Liver Function 09/23/18 Range/Units 08:15 Total Bilirubin 2.0 H (0.2-1) mg/dl AST 114 H (15-37) U/L ALT 153 H (12-78) U/L Alkaline Phosphatase 366 H (45-117) U/L Albumin 3.5 (3.4-5.0) gm/dl Diagnostic Findings CT ABD/PELVIS: IMPRESSION: 1. Findings are consistent with a nonspecific ileitis. This is likely on an infectious or inflammatory basis and clinical correlation will be required. 2. Findings suggest cystitis. Correlation with clinical findings and urinalysis will be required. 3. Cardiomegaly. 4. The liver is enlarged, markedly heterogeneous in attenuation, and there is nodularity of the hepatic surface contour suggesting changes of cirrhosis. This represents a significant change from the 2010 examination. Correlation with liver function studies is recommended. 5. Postoperative change is suggested in the retrosternal region. 6. There is postoperative change from sigmoid colon resection with colocolonic anastomosis. No bowel obstruction is identified. 7. Additional findings as above. CXR: IMPRESSION: Cardiomegaly with no acute cardiopulmonary abnormality. Supervising Physician Co-Signing Physician Notes Patient is a 78-year-old female with history of ulcerative colitis, aortic valve replacement, COPD, atrial flutter history of chondroma of sternal status post resection and other medical problems presents with history of constipation, intermittent nausea, lower abdominal pain, diarrhea with use of laxatives, bright red blood per rectum, poor appetite. Please review HPI for complete details of presentation. She was noted to be in atrial flutter RVR while in ED. TSH and electrolytes normal. On exam patient is thin, chronically ill- appearing, frail, decreased breath sounds on auscultation, irregularly irregular rhythm, tachycardia, no pedal edema, abdomen tender RLQ, LLQ, grossly no neurological focal deficits. Her hemoglobin is stable at 14. Mild transaminitis noted on labs, troponin x2 negative, CT abdomen suggestive of nonspecific ileitis, cystitis, changes suggestive of cirrhosis of the liver. Patient is admitted for the management of GI bleed, atrial flutter RVR and transaminitis. Stool negative for C. difficile. Patient will be started on Cipro Flagyl, PPI, clear liquid diet, n.p.o. after midnight, GI consulted appreciate input, EGD colonoscopy in a.m. Will increase metoprolol to 25 mg twice daily for heart rate control. Appreciate cardiology input. Hold Coumadin secondary to GI bleed. IV fluids will be given. Continue mesalamine. Check urine analysis, and urine culture if indicated. Ciprofloxacin for possible UTI. I personally reviewed the record. Patient is interviewed and examined at bedside. Patient's care is coordinated with Kalyn Brooks PA-C. Please refer to the documentation above for details of patient's presentation and for discussion of other issues. (1) GI bleed GI bleed type/associated pathology: unspecified gastrointestinal hemorrhage type Qualified Code(s): K92.2 - Gastrointestinal hemorrhage, unspecified
[2018-09-23] MEDS ORDERED: ALBUTEROL HFA 8 GM INHALER INH PRN (13:15)
[2018-09-23] MEDS ORDERED: TRAMADOL HCL 50 MG TABLET PO PRN (13:15)
[2018-09-23] MEDS ORDERED: METOPROLOL TARTRATE 1 MG/ML VIAL IV PRN (13:15)
--- NOTE | 2018-09-23 13:32 | Gastrointestinal Consultation ---
Date of Consultation September 23, 2018 Assessment & Plan (1) Crohn disease: 78 year old female admitted w/ abd pain, diarrhea w/ intermittent rectal bleeding x [address] reviewed question of ileitis. She does have long history of Crohn's colitis not on therapy overdue for staging colon. Review of OP records indicate newly elevated LFTs but imaging w/ cirrhosis. - Clear liquid diet - NPO after midnight - Golytely - Colonoscopy 09/24/18 - EGD on 09/24/18 for surveillance for varices - Check acute hep panel, UMESH, AMA, ASMA Thank you for allowing us to participate in the care of this patient. Please call with any acute changes, questions or concerns. Please see addendum below with additional recommendation from my supervising physician. Present on Admission?: Yes Supervising Physician Co-Signing Physician Notes I have performed a history and physical examination of this patient and reviewed the electronic medical record. Specifically, on physical examination there is m ild lower abdominal tenderness. I have discussed the case with RAJAN Tripathi. The above note reflects my findings, conclusions, and recommendations. 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 P t was seen and evaluated, chart reviewed. at bedside. Notes that he has been feeling well from a GI standpoint up until about 1-2 months ago. Worsening abd pain. Bilateral lower quadrants. Sharp, stabbing. Constant pain. Stools had become less regular. Formed stool w/ straining. Started on Miralax as an OP which induced diarrhea. Over the last 24 hours diarrhea worsened and was associated w/ BRB streaking. Denies any prior black, tarry stools. Has nausea but no vomiting. No fever, chills, CP, SOB. CT: Findings are consistent with a nonspecific ileitis. This is likely on an infectious or inflammatory basis and clinical correlation will be required. Findings suggest cystitis. Correlation with clinical findings and urinalysis will be required. Cardiomegaly.The liver is enlarged, markedly heterogeneous in attenuation, and there is nodularity of the hepatic surface contour suggesting changes of cirrhosis. This represents a significant change from the 2010 examination. Correlation with liver function studies is recommended. Postoperative change is suggested in the retrosternal region. There is postoperative change from sigmoid colon resection with colocolonic anastomosis. No bowel obstruction is identified. Colonoscopy 2014: No evidence of active colitis; scarring consistent withdiagnosis of Crohn's disease. Unremarkable sigmoid anastamosis. Mild ileitis.Diminutive rectal polyps.Chromoscopy was performed. Biopsies were taken with a cold forceps for histology inthe entire colon. Colonoscopy 2013: active crohn's Colonoscopy 2010: hemorrhoids, patent end-to-end colo-colonic anastomosis @ 20 cm. Colonoscopy 2010: Patent end-to-end colo-colonic anastomosis. This was biopsied. The sigmoid colon is normal. This was biopsied.Granularity rectum. This was biopsied.Inflammation was found in the colon secondary to Crohn's disease. This was biopsied.Granularity terminal ileum. This was biopsied. Colonoscopy 2009: ileitis, diverticulosis Colonoscopy 2007: Erythematous nodular mucasa in the bery end of the TI extending into the IC valve. Biopsied.Pseudopolyps, scared colon from previous severe disease.Biospied Diagnosis: Crohn's Disease Age at Diagnosis: 74 Disease Location: Colonic Crohn's disease behavior: Inflammatory IBD surgical history: sigmoid resection (diverticulosis) Extra-Intestinal manifestations: None Current Non-biologic meds specifically for IBD: Apriso Current Biologic meds: None Meds Tried in the past: none Currently smoking? No TPMT activity level: Unknown PPD status: Unknown Hep B status: unknown Vaccination: DEXA scan required and ordered? no CT: Allergies Allergy/AdvReac Type Severity Reaction Status Date / Time Penicillins Allergy Mild HIVES Verified 09/23/18 08:18 Home Medications Home Medications Medication Instructions Recorded Confirmed Type Spiriva with HandiHaler 1 cap INHALATION DAILY 04/12/18 09/23/18 History acetaminophen [Tylenol Arthritis 2 tab PO Q8H PRN 04/12/18 09/23/18 History Pain] cyanocobalamin (vitamin B-12) 1,000 mcg PO DAILY 04/12/18 09/23/18 History [Vitamin B-12] gabapentin 100 mg PO TID PRN 04/12/18 09/23/18 History levothyroxine 112 mcg PO DAILY 04/12/18 09/23/18 History mesalamine [Lialda] 3.6 g PO QAM 04/12/18 09/23/18 History tramadol 50 mg PO DAILY PRN 04/12/18 09/23/18 History vitamin E 800 unit PO DAILY 04/12/18 09/23/18 History albuterol sulfate 2 puff INHALATION Q6H PRN 09/23/18 09/23/18 History aspirin [Aspir-81] 81 mg PO DAILY 09/23/18 09/23/18 History atorvastatin 40 mg PO HS 09/23/18 09/23/18 History conjugated estrogens [Premarin] 0.625 mg PO DAILY 09/23/18 09/23/18 History metoprolol succinate 12.5 mg PO BID 09/23/18 09/23/18 History warfarin 2 mg PO UD 09/23/18 09/23/18 History Patient History Medical History Crohn disease (Chronic) Ulcerative colitis (Chronic) Diverticulitis (Chronic) Hypothyroidism (Chronic) Meningioma (Chronic) COPD (chronic obstructive pulmonary disease) (Chronic) Atrial flutter (Chronic) Chondrosarcoma (Chronic Unknown) S/P resection History of thyroidectomy (Chronic Unknown) History of total hysterectomy (Chronic Unknown) "2001 " Intracranial meningioma (Chronic Unknown) Carotid artery occlusion (Chronic) Crohns disease (Chronic) Former smoker (Chronic) Hyperlipidemia (Chronic) Osteoarthritis (Chronic) Spinal stenosis (Chronic) Stenosis of aorta (Chronic) Valvular heart disease (Chronic) Cardiac murmur Surgical History S/P colon resection (Chronic) S/P aortic valve replacement (Chronic) History of appendectomy (Chronic) History of thoracic surgery (Chronic) Social History Preferred Language: Slovak Communication Ability: Effective Beliefs That Will Affect Care: None Current Living Situation: Alone Other Information That Helps Us Care for You: No Feels Safe at Home: Yes Safety Concerns: Feels Safe At This Time Smoking Status: Former smoker Second Hand Exposure: No Hx Alcohol Use: Yes Alcohol type: beer and wine Hx Substance Use: No Review of Systems Constitutional: no fever, no body aches, no weakness and no weight gain Respiratory: no cough, no dyspnea, no pain on inspiration and no wheezing Cardiovascular: no chest pain, no radiating jaw, neck or arm pain, no dyspnea on exertion and no palpitations Gastrointestinal: + abdominal pain, + bloating, + change in bowel habits, + change in stools, + constipation, + diarrhea/loose stools and + blood in stools; no belching, no early satiety, no heartburn, no nausea, no vomiting, no coffee ground emesis, no hematemesis, no pain with swallowing, no dysphagia, no cramping, no excessive flatulence, no fecal incontinence and no melena Physical Exam Constitutional: well developed and well nourished; not ill appearing Respiratory: normal respiratory effort, lungs clear to auscultation Cardiovascular: Rate/Rhythm: regular rhythm and + tachycardic Heart Sounds: no click, no gallop and no murmur Gastrointestinal (Abdomen): Inspection/Auscultation: normal bowel sounds Percussion/Palpation: + abdomen tender and abdomen soft; no guarding, abdomen not rigid, no abdominal mass and no ascites Results & Data Vital Signs (Past 12 Hours) Vital Signs Temp Pulse Pulse Resp BP BP Pulse Ox 09/23/18 11:25 120 H 18 112/81 97 09/23/18 10:24 104 H 20 114/87 99 09/23/18 10:15 112 H 17 111/89 97 09/23/18 10:08 123 H 15 120/86 97 09/23/18 10:04 124 H 18 104/80 95 09/23/18 09:34 95 09/23/18 08:56 124 H 16 109/73 96 09/23/18 08:30 126 H 16 93/66 L 97 09/23/18 07:47 36.4 C L 129 H 18 109/68 94 Laboratory Results 09/23/18 09/23/18 09/23/18 Range/Units 13:51 13:50 09:05 WBC (4.8-10.8) K/uL RBC (4.2-5.4) M/uL Hgb 12.6 (12.0-16.0) g/dL POC Hgb (12.0-16.0) g/dl Hct 38.7 (37-47) % POC Hct (37-47) % MCV (80-100) fL MCH (25-34) pg MCHC (32-36) g/dL RDW Std Deviation (36.4-46.3) fL RDW Coeff of Brendon (11.5-14.5) % Plt Count (130-400) K/uL MPV (7.4-10.4) fL Immature Gran % (Auto) % Neut % (Auto) % Lymph % (Auto) % [place] % (Auto) % Eos % (Auto) % Baso % (Auto) % Immature Gran # (Auto) (0.00-0.02) K/uL Neut # (Auto) (1.4-6.5) K/uL Lymph # (Auto) (1.2-3.4) K/uL [place] # (Auto) (0.11-0.59) K/uL Eos # (Auto) (0-0.5) K/uL Baso # (Auto) (0-0.2) K/uL PT (9.0-12.0) Seconds INR (0.9-1.1) APTT (21.0-31.0) Seconds PTT Ratio POC Sodium (135-144) mEq/L Sodium (136-145) mmol/L POC Potassium (3.3-5.0) mEq/L Potassium (3.5-5.1) mmol/L POC Chloride (101-112) mEq/L Chloride (98-107) mmol/L Carbon Dioxide (21-32) mmol/L POC Total CO2 (24-31) mEq/l Anion Gap (3-11) POC Anion Gap (16-25) mmol/L POC BUN (7-18) mg/dl BUN (7-18) mg/dl Creatinine (0.6-1.2) mg/dl POC Creatinine (0.6-1.3) mg/dl Est Cr Clr Drug Dosing ml/min Est GFR ( Amer) Est GFR (Non-Af Amer) BUN/Creatinine Ratio (10-20) Glucose (70-99) mg/dl POC Glucose (other) (70-99) mg/dl Calcium (8.5-10.1) mg/dl POC Ioniz Calcium Natalie (1.12-1.32) mmol/l Magnesium (1.8-2.4) mg/dl Total Bilirubin (0.2-1) mg/dl AST (15-37) U/L ALT (12-78) U/L Alkaline Phosphatase (45-117) U/L Troponin I < 0.015 (0-0.045) ng/ml Total Protein (6.4-8.2) gm/dl Albumin (3.4-5.0) gm/dl Globulin (2.5-4.0) gm/dl Albumin/Globulin Ratio (0.9-2) TSH (0.300-4.500) uIu/ml Blood Type O Negative Antibody Screen NEGATIVE Crossmatch See Detail 09/23/18 09/23/18 09/23/18 Range/Units 08:19 08:15 08:15 WBC (4.8-10.8) K/uL RBC (4.2-5.4) M/uL Hgb (12.0-16.0) g/dL POC Hgb 15.3 (12.0-16.0) g/dl Hct (37-47) % POC Hct 45 (37-47) % MCV (80-100) fL MCH (25-34) pg MCHC (32-36) g/dL RDW Std Deviation (36.4-46.3) fL RDW Coeff of Brendon (11.5-14.5) % Plt Count (130-400) K/uL MPV (7.4-10.4) fL Immature Gran % (Auto) % Neut % (Auto) % Lymph % (Auto) % [place] % (Auto) % Eos % (Auto) % Baso % (Auto) % Immature Gran # (Auto) (0.00-0.02) K/uL Neut # (Auto) (1.4-6.5) K/uL Lymph # (Auto) (1.2-3.4) K/uL [place] # (Auto) (0.11-0.59) K/uL Eos # (Auto) (0-0.5) K/uL Baso # (Auto) (0-0.2) K/uL PT (9.0-12.0) Seconds INR (0.9-1.1) APTT (21.0-31.0) Seconds PTT Ratio POC Sodium 138 (135-144) mEq/L Sodium 138 (136-145) mmol/L POC Potassium 3.8 (3.3-5.0) mEq/L Potassium 3.9 (3.5-5.1) mmol/L POC Chloride 101 (101-112) mEq/L Chloride 106 (98-107) mmol/L Carbon Dioxide 25 (21-32) mmol/L POC Total CO2 25 (24-31) mEq/l Anion Gap 8.0 (3-11) POC Anion Gap 18.0 (16-25) mmol/L POC BUN 6 L (7-18) mg/dl BUN 7 (7-18) mg/dl Creatinine 0.70 (0.6-1.2) mg/dl POC Creatinine 0.6 (0.6-1.3) mg/dl Est Cr Clr Drug Dosing 66.5 ml/min Est GFR ( Amer) 95.5 Est GFR (Non-Af Amer) 82.4 BUN/Creatinine Ratio 10.4 (10-20) Glucose 104 H (70-99) mg/dl POC Glucose (other) 108 H (70-99) mg/dl Calcium 9.0 (8.5-10.1) mg/dl POC Ioniz Calcium Natalie 1.05 L (1.12-1.32) mmol/l Magnesium 2.1 (1.8-2.4) mg/dl Total Bilirubin 2.0 H (0.2-1) mg/dl AST 114 H (15-37) U/L ALT 153 H (12-78) U/L Alkaline Phosphatase 366 H (45-117) U/L Troponin I < 0.015 (0-0.045) ng/ml Total Protein 7.1 (6.4-8.2) gm/dl Albumin 3.5 (3.4-5.0) gm/dl Globulin 3.6 (2.5-4.0) gm/dl Albumin/Globulin Ratio 1.0 (0.9-2) TSH 1.500 (0.300-4.500) uIu/ml Blood Type Cancelled Antibody Screen Cancelled Crossmatch 09/23/18 09/23/18 Range/Units 08:15 08:15 WBC 7.67 (4.8-10.8) K/uL RBC 4.78 (4.2-5.4) M/uL Hgb 14.0 (12.0-16.0) g/dL POC Hgb (12.0-16.0) g/dl Hct 42.2 (37-47) % POC Hct (37-47) % MCV 88.3 (80-100) fL MCH 29.3 (25-34) pg MCHC 33.2 (32-36) g/dL RDW Std Deviation 45.8 (36.4-46.3) fL RDW Coeff of Brendon 14.1 (11.5-14.5) % Plt Count 187 (130-400) K/uL MPV 9.7 (7.4-10.4) fL Immature Gran % (Auto) 0.1 % Neut % (Auto) 69.6 % Lymph % (Auto) 22.7 % [place] % (Auto) 5.9 % Eos % (Auto) 1.3 % Baso % (Auto) 0.4 % Immature Gran # (Auto) 0.01 (0.00-0.02) K/uL Neut # (Auto) 5.34 (1.4-6.5) K/uL Lymph # (Auto) 1.74 (1.2-3.4) K/uL [place] # (Auto) 0.45 (0.11-0.59) K/uL Eos # (Auto) 0.10 (0-0.5) K/uL Baso # (Auto) 0.03 (0-0.2) K/uL PT 12.5 H (9.0-12.0) Seconds INR 1.2 H (0.9-1.1) APTT 26.2 (21.0-31.0) Seconds PTT Ratio 1.0 POC Sodium (135-144) mEq/L Sodium (136-145) mmol/L POC Potassium (3.3-5.0) mEq/L Potassium (3.5-5.1) mmol/L POC Chloride (101-112) mEq/L Chloride (98-107) mmol/L Carbon Dioxide (21-32) mmol/L POC Total CO2 (24-31) mEq/l Anion Gap (3-11) POC Anion Gap (16-25) mmol/L POC BUN (7-18) mg/dl BUN (7-18) mg/dl Creatinine (0.6-1.2) mg/dl POC Creatinine (0.6-1.3) mg/dl Est Cr Clr Drug Dosing ml/min Est GFR ( Amer) Est GFR (Non-Af Amer) BUN/Creatinine Ratio (10-20) Glucose (70-99) mg/dl POC Glucose (other) (70-99) mg/dl Calcium (8.5-10.1) mg/dl POC Ioniz Calcium Natalie (1.12-1.32) mmol/l Magnesium (1.8-2.4) mg/dl Total Bilirubin (0.2-1) mg/dl AST (15-37) U/L ALT (12-78) U/L Alkaline Phosphatase (45-117) U/L Troponin I (0-0.045) ng/ml Total Protein (6.4-8.2) gm/dl Albumin (3.4-5.0) gm/dl Globulin (2.5-4.0) gm/dl Albumin/Globulin Ratio (0.9-2) TSH (0.300-4.500) uIu/ml Blood Type Antibody Screen Crossmatch
[2018-09-23] MEDS ORDERED: SODIUM CHLORIDE 0.9% 250 ML IV PRN (13:47)
[2018-09-23 14:00] LABS: Hematocrit (blood only) 38.7 % (37-47); Hemoglobin 12.6 g/dL (12.0-16.0)
[2018-09-23] MEDS: metroNIDAZOLE 500 MG/100 ML BAG IV SCH ×2 (15:11→21:44)
[2018-09-23] MEDS: METOPROLOL SUCC 25MG EXT REL TAB PO SCH ×2 (15:26→20:12)
[2018-09-23] MEDS ORDERED: LAVAGE SOLUTION 4000ML PO ONE (15:30)
[2018-09-23] MEDS: CIPROFLOXACIN 400 MG/200 ML BAG IV SCH (15:42)
[2018-09-23 15:56] LABS: Hepatitis B Surface Antigen Neg (Neg)
[2018-09-23] MEDS ORDERED: POLYETHYLENE (MIRALAX) 17 GM PACK PO SCH (16:00)
[2018-09-23] MEDS: POLYETHYLENE (MIRALAX) 17 GM PACK PO SCH ×2 (16:06→21:04)
[2018-09-23 16:24] LABS: Hepatitis C IgG 13Yrs+Old_Rflx Neg (Neg)
[2018-09-23 16:58] LABS: Appearance Urine Clear (Clear); Blood Urine Negative (Negative); Color Urine Dark Yellow; Glucose Urine UA Negative (Negative); Ketones Urine Negative (Negative); Leukocyte Esterase Urine Negative (Negative); Nitrite Urine Negative (Negative); Protein Urine Negative (Negative); Specific Gravity Urine > 1.045 (1.000-1.030); Urobilinogen Urine Negative (Negative)
[2018-09-23 17:03] LABS: Bilirubin Urine Negative (Negative); Ictotest Urine Negative (Negative)
[2018-09-23] MEDS ORDERED: ALUMINUM/MAGNESIUM/SIMETH (MAALOX MAX) 30 ML UDC PO PRN (18:10)
--- NOTE | 2018-09-23 18:18 | Cardiology Consultation ---
Date of Consultation September 23, 2018 Assessment & Plan (1) Atrial flutter: (2) Ileitis: (3) GI bleed: (4) S/P aortic valve replacement: GI consultation note was reviewed. Their input is noted and appreciated. CT the abdomen and pelvis performed earlier today was consistent with nonspecific ileitis possibly infectious or inflammatory in etiology. The patient has a history of past Crohn's disease. Given recent change in bowel habits, abdominal discomfort, but per rectum, agree with proceeding with EGD and colonoscopy. The patient's ventricular rate has improved, and she appears hemodynamically stable for the procedure tomorrow. CT findings also suggested findings of cirrhosis. The patient has a significant tricuspid regurgitation, she could have a congestive hepatopathy on the basis of her tricuspid valve regurgitation and elevated right-sided cardiac pressures. Her blood pressure is too low to consider diuretic therapy for now, and she certainly does not appear to be volume overloaded. In terms of the atrial flutter. Per patient description this is been going on for at least 6 months. Low-dose beta-berto was recently initiated several days ago, and will titrate the dose. Her rates are already improved while resting in bed to the range of 85 to 90 bpm at present. We discussed her stroke risk. Given her blood pressure to him, she is not a candidate for anticoagulation at this time and her oral Coumadin has been placed on hold pending further assessment. I do not think she is a candidate for unfractionated heparin or Lovenox anticoagulation due to bleeding. Hopefully her EGD and colonoscopy will help delineate the cause of this. Besides Dr Jordan the patient also follows with Dr Krause who she believes is with the cardiothoracic surgery department at [facility]. His office number is [phone] and she asked that I call to keep him updated. I will attempt to reach out to him tomorrow. History of Present Illness Attending Physician: Piter Sanchez DO History of Present Illness Nereida Stephen is a 78 year old female seen in cardiology consultation per the request of Kalyn Brooks PA-C for the evaluation of atrial flutter with rapid ventricular response. Patient is interviewed in room 256-2. Her son and her granddaughter are at the bedside. 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 She started noticing persistently elevated heart rates in the range of 120 bpm during the holiday season dating back to at least April. She did not seek medical care for this acutely however when she returned to [place] she arrange an appointment with Dr. Jordan whom she saw on 09/15/2018. It had been her first cardiology visit with our practice since February 2016. An EKG had been performed on 09/15/2018 that revealed atypical atrial flutter with 2:1 atrioventricular conduction at a rate of 125 bpm and poor R wave progression noted in lead V2 suggestive of a age-indeterminate septal infarction. Compared to a prior tracing performed on 02/25/2016 atrial flutter had replaced sinus rhythm. Septal infarction pattern was present as well as mild ST segment depression noted in the inferior leads. Coumadin 2 mg daily was initiated, but the patient was yet to have therapeutic INR levels. Low-dose metoprolol succinate 12 g twice daily was also added. She underwent an echocardiogram with results as delineated below. She was to have 1 week outpatient cardiology follow-up today but in the meantime presented to the emergency room with complaints of abdominal discomfort. She notes that she has felt constipated for the last few weeks. Last evening at home she had a bowel movement with blood in it that she said was the consistency of strawberry jelly. She has had no additional bloody bowel movements while here in the hospital. 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 2.No coronary disease by preoperative cardiac catheterization, 2009. 3.Chondrosarcoma of the sternum and chest, status post partial resection with redo surgery April 2017 with resection of the mid lower sternum and right costal cartilage with anterior chest wall reconstruction with mesh and pectoral flap 4.Chronic obstructive lung disease. 5.Status post meningioma resection via gamma knife, May 2014 no growth on followup 2016 6.History of chronic low back pain and spinal stenosis, intermittent epidural injections. 7.History of ulcerative colitis/diverticulosis. Allergies Allergy/AdvReac Type Severity Reaction Status Date / Time Penicillins Allergy Mild HIVES Verified 09/23/18 08:18 Home Medications Home Medications Medication Instructions Recorded Confirmed Type Spiriva with HandiHaler 1 cap INHALATION DAILY 04/12/18 09/23/18 History acetaminophen [Tylenol Arthritis 2 tab PO Q8H PRN 04/12/18 09/23/18 History Pain] cyanocobalamin (vitamin B-12) 1,000 mcg PO DAILY 04/12/18 09/23/18 History [Vitamin B-12] gabapentin 100 mg PO TID PRN 04/12/18 09/23/18 History levothyroxine 112 mcg PO DAILY 04/12/18 09/23/18 History mesalamine [Lialda] 3.6 g PO QAM 04/12/18 09/23/18 History tramadol 50 mg PO DAILY PRN 04/12/18 09/23/18 History vitamin E 800 unit PO DAILY 04/12/18 09/23/18 History albuterol sulfate 2 puff INHALATION Q6H PRN 09/23/18 09/23/18 History aspirin [Aspir-81] 81 mg PO DAILY 09/23/18 09/23/18 History atorvastatin 40 mg PO HS 09/23/18 09/23/18 History conjugated estrogens [Premarin] 0.625 mg PO DAILY 09/23/18 09/23/18 History metoprolol succinate 12.5 mg PO BID 09/23/18 09/23/18 History warfarin 2 mg PO UD 09/23/18 09/23/18 History Patient History Medical History Crohn disease (Chronic) Ulcerative colitis (Chronic) Diverticulitis (Chronic) Hypothyroidism (Chronic) Meningioma (Chronic) COPD (chronic obstructive pulmonary disease) (Chronic) Atrial flutter (Chronic) Chondrosarcoma (Chronic Unknown) S/P resection History of thyroidectomy (Chronic Unknown) History of total hysterectomy (Chronic Unknown) "2001 " Intracranial meningioma (Chronic Unknown) Carotid artery occlusion (Chronic) Crohns disease (Chronic) Former smoker (Chronic) Hyperlipidemia (Chronic) Osteoarthritis (Chronic) Spinal stenosis (Chronic) Stenosis of aorta (Chronic) Valvular heart disease (Chronic) Cardiac murmur Surgical History S/P colon resection (Chronic) S/P aortic valve replacement (Chronic) History of appendectomy (Chronic) History of thoracic surgery (Chronic) Social History Preferred Language: Occitan Communication Ability: Effective Beliefs That Will Affect Care: None Current Living Situation: Alone Other Information That Helps Us Care for You: No Feels Safe at Home: Yes Safety Concerns: Feels Safe At This Time Smoking Status: Former smoker Second Hand Exposure: No Hx Alcohol Use: Yes Alcohol type: beer and wine Hx Substance Use: No Results & Data Vital Signs (Past 12 Hours) Vital Signs Temp Pulse Pulse Pulse Resp BP BP 09/23/18 15:40 36.3 C L 91 H 18 98/65 L 09/23/18 13:15 36.6 C 120 H 18 09/23/18 11:25 120 H 18 09/23/18 10:24 104 H 20 09/23/18 10:15 112 H 17 09/23/18 10:08 123 H 15 09/23/18 10:04 124 H 18 09/23/18 09:34 09/23/18 08:56 124 H 16 09/23/18 08:30 126 H 16 09/23/18 07:47 36.4 C L 129 H 18 109/68 BP Pulse Ox 09/23/18 15:40 94 09/23/18 13:15 116/70 97 09/23/18 11:25 112/81 97 09/23/18 10:24 114/87 99 09/23/18 10:15 111/89 97 09/23/18 10:08 120/86 97 09/23/18 10:04 104/80 95 09/23/18 09:34 95 09/23/18 08:56 109/73 96 09/23/18 08:30 93/66 L 97 09/23/18 07:47 94 Laboratory Results Cardiac Enzymes 09/23/18 09/23/18 Range/Units 08:15 13:50 AST 114 H (15-37) U/L Troponin I < 0.015 < 0.015 (0-0.045) ng/ml Coagulation 09/23/18 Range/Units 08:15 PT 12.5 H (9.0-12.0) Seconds APTT 26.2 (21.0-31.0) Seconds CBC 09/23/18 09/23/18 Range/Units 08:15 13:51 WBC 7.67 (4.8-10.8) K/uL RBC 4.78 (4.2-5.4) M/uL Hgb 14.0 12.6 (12.0-16.0) g/dL Hct 42.2 38.7 (37-47) % Plt Count 187 (130-400) K/uL Neut # (Auto) 5.34 (1.4-6.5) K/uL Lymph # (Auto) 1.74 (1.2-3.4) K/uL Levy # (Auto) 0.45 (0.11-0.59) K/uL Eos # (Auto) 0.10 (0-0.5) K/uL Baso # (Auto) 0.03 (0-0.2) K/uL Comprehensive Metabolic Panel 09/23/18 Range/Units 08:15 Sodium 138 (136-145) mmol/L Potassium 3.9 (3.5-5.1) mmol/L Chloride 106 (98-107) mmol/L Carbon Dioxide 25 (21-32) mmol/L BUN 7 (7-18) mg/dl Creatinine 0.70 (0.6-1.2) mg/dl Glucose 104 H (70-99) mg/dl Calcium 9.0 (8.5-10.1) mg/dl AST 114 H (15-37) U/L ALT 153 H (12-78) U/L Alkaline Phosphatase 366 H (45-117) U/L Total Protein 7.1 (6.4-8.2) gm/dl Albumin 3.5 (3.4-5.0) gm/dl Intake and Output 09/23/18 09/23/18 09/23/18 06:59 14:59 22:59 Intake Total 2049 / 2349 300 / 2350 Balance 2049 / 0 300 / 2350 Intake: IV 2049 / 2349 300 / 2350 CIPRO 400 mg In 200 ml @ 100 200 / 200 mls/hr IV Q12H [facility] Rx#:[id number] Nss 1000ML 1,000 ml @ 999 mls/ 2000 / 2000 hr IV .Q1H1M ONE Rx#:[id number] ROCEPHIN 1,000 mg In 50 ml @ 50 / 50 100 mls/hr IV NOW STA Rx#: [id number] FLAGYL 500 mg In 100 ml @ 100 100 / 100 mls/hr IV Q8 [facility] Rx#:[id number] Other: Weight 64.6 kg Patient Weight 09/24/18 06:59 Weight 64.6 kg Diagnostic Findings Summary of transthoracic echocardiogram performed 09/21/2018: The left ventricular cavity size is normal. The LV wall thickness is mildly increased (concentric). There is mild diffuse left ventricular hypokinesis. The qualitative LV ejection fraction is 40-44% (mildly reduced). The left atrium is mildly enlarged. The right atrium is severely enlarged. There is an aortic valve bioprosthetic present. Patient has a history of bioprosthetic aortic valve replacement with a 21 mm Magna bioprosthesis. Aortic valve prosthesis stenosis is absent. Significant aortic valve prosthesis regurgitation is absent. Mild secondary mitral regurgitation is present. Severe tricuspid regurgitation is present. Dilated IVC with reduced collapsability with sniff indicates an elevated right atrial pressure of 15mmHg. Moderate pulmonary hypertension is present. -Compared to the prior echocardiogram performed 12/28/2017, there is been interval decline in the left ventricular systolic function with ejection fraction of 57% noted at that time. (1) GI bleed GI bleed type/associated pathology: unspecified gastrointestinal hemorrhage type Qualified Code(s): K92.2 - Gastrointestinal hemorrhage, unspecified
[2018-09-23] MEDS ORDERED: ALUMINUM/MAGNESIUM/SIMETH (MAALOX MAX) 30 ML UDC ONE (18:45)
[2018-09-23] MEDS: PANTOprazole 40 MG TAB PO SCH (20:13)
[2018-09-23] MEDS ORDERED: ATORVASTATIN 40 MG TAB PO SCH (21:00)
[2018-09-23 22:57] LABS: Appearance Urine Clear (Clear); Bacteria Urine Automated Negative (Negative); Bilirubin Urine Negative (Negative); Blood Urine Negative (Negative); Color Urine Yellow; Epithelial Cell Urine Auto >30 /lpf (0-5); Glucose Urine UA Negative (Negative); Ketones Urine Negative (Negative); Leukocyte Esterase Urine 1+ (Negative); Nitrite Urine Negative (Negative); Protein Urine Trace (Negative); RBC Urine Automated 0-4 /hpf (0-4); Specific Gravity Urine 1.023 (1.000-1.030); Urobilinogen Urine Negative (Negative)
[2018-09-24] MEDS: CIPROFLOXACIN 400 MG/200 ML BAG IV SCH ×2 (02:07→14:53)
[2018-09-24] MEDS: LEVOTHYROXINE SODIUM 112 MCG TABLET PO SCH (05:47)
[2018-09-24] MEDS: metroNIDAZOLE 500 MG/100 ML BAG IV SCH ×3 (05:47→21:45)
[2018-09-24 07:13] LABS: Hematocrit (blood only) 36.1 % (37-47); Hemoglobin 11.7 g/dL (12.0-16.0); Mean Corpuscular Hgb Conc 32.4 g/dL (32-36); Mean Corpuscular Volume 88.9 fL (80-100); Platelet Count 148 K/uL (130-400); RDW Coefficient of Variation 14.2 % (11.5-14.5); RDW Standard Deviation 46.3 fL (36.4-46.3); Red Blood Count 4.06 M/uL (4.2-5.4); White Blood Count 4.33 K/uL (4.8-10.8)
[2018-09-24 07:21] LABS: INR 1.5 (0.9-1.1); Prothrombin Time 14.6 Seconds (9.0-12.0)
[2018-09-24 07:51] LABS: Albumin Level 2.8 gm/dl (3.4-5.0); BUN Creatinine Ratio 7.5 (10-20); Bilirubin Direct 0.7 mg/dl (0-0.2); Est GFR (African American) 106.7; Est GFR (Non-African American) 92.1; Potassium 3.5 mmol/L (3.5-5.1)
[2018-09-24 07:55] LABS: Albumin Globulin Ratio 0.9 (0.9-2); Bilirubin,Total 1.5 mg/dl (0.2-1); Globulin 3.1 gm/dl (2.5-4.0); Total Protein 5.9 gm/dl (6.4-8.2)
[2018-09-24] MEDS: TIOTROPIUM BROMIDE 5 PUFF/90 MCG INH INH SCH (09:00)
--- NOTE | 2018-09-24 11:44 | Hospitalist Progress Note ---
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 Out patient GI record states hx Crohn's. Hx diverticulitis s/p colon resection Pt presented to ER with c/o lower abdominal pain for past several days. Reports hx constipation and intermittent nausea x 1 month, taking Miralax. Reports loose stools last night. Also reports some red blood in bowel movements. In ER pt afebrile, P: 129, R: 18, BP: 109/68, 94% on RA. WBC: 7.6, H/H: 14/42, INR: 1.2, Total bili: 2.0, AST: 114, ALT: 153, Alk Phos: 366, INR: 1.2 (on Coumadin). Reported heme positive stool. CT ABD/PELVIS: Findings are consistent with a nonspecific ileitis. This is likely on an infectious or inflammatory basis and clinical correlation will be required. The liver is enlarged, markedly heterogeneous in attenuation, and there is nodularity of the hepatic surface contour suggesting changes of cirrhosis. This represents a significant change from the 2010 examination. There is postoperative change from sigmoid colon resection with colocolonic anastomosis. No bowel obstruction is identified. -stool culture, c-diff pending -cipro, flagyl -continue mesalamine -Type and cross and hold -IVF -clear liquid diet -GI consult, appreciate recommendations -monitor CBC, CMP 09/15/18 Cardiology started Toprol 12.5mg BID and Coumadin for atrial flutter with HR 128. Had recent echo outpatient (unable to view full report, EF: 40%) Patient had INR of 1.0 yesterday and reports did not get further dosing instructions and has been taking 2 mg daily. She states continues with palpitations and her HR at home has been 120. In ER P: 120's. Pt did not have her am medications. Was given 2L NSS, Lopressor 10mg IV total. 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 Previous AST: 55, ALT: 51, Alk Phos: 172 on 09/15/18 No upper abdominal pain -monitor liver functions -will hold atorvastatin for now -limit acetaminophen use -GI for EGD/Colon Today DVT Prophylaxis -SCDs DNR as per discussion with pt Follows with Dr Santos for routine care ROS-Pos Abdominal Pain, No Diarrhea, No Hematemesis, No Hemoptysis, No Unexpected Weight Loss, No Flank pain, No Melena, No Hematochezia, No Frequency, No Urgency, No Burning, No Hematuria, No Rashes, No Diaphoresis. Appetite is Normal, No F/C/CP Physical Exam Gen-AAO x 3, NAD, Afebrile Head-NCAT, EOMI, PERRLA, Anicteric Sclera, No Posterior Pharyngeal Erythema Neck-Supple, No JVD, No Thyromegaly, No Masses, No LAD, No Bruits Lungs-Clear to Auscultation Bilaterally, No Rales, No Rhonchi, No Wheezing, No Crepitus Chest-No S4, +S1, +S2, No S3, No Murmurs, No Rubs, No Gallops, No Ectopy Abdomen-Soft, Bowel Sounds Present, Non Tender, Non Distended, No Hepatomegaly, No Splenomegaly, No Palpable Masses, No Rebound, No Rigidity, No Guarding Musculoskeletal-Full Range of Motion Bilaterally, No CVAT Extremities-No Cyanosis, No Clubbing, + Edema, LLE wrapped Nuero-Cranial Nerves II-XII grossly intact, Motor WNL, DTRs WNL, Strength WNL, Non Focal Psych-Normal Mood Results & Data Vital Signs (Past 12 Hours) Vital Signs Temp Pulse Pulse Resp BP BP Pulse Ox 09/24/18 11:16 36.3 C L 121 H 18 118/80 95 09/24/18 07:27 36.8 C 119 H 18 117/83 94 09/24/18 04:28 36.8 C 119 H 20 119/84 95 09/24/18 01:25 120 H Current Diagnoses Malignant neoplasm of bone and articular cartilage, unspecified (09/23/18) Benign neoplasm of meninges, unspecified (09/23/18) Hypothyroidism, unspecified (09/23/18) Unspecified atrial flutter (09/23/18) Chronic obstructive pulmonary disease, unspecified (09/23/18) Crohn's disease, unspecified, without complications (09/23/18) Noninfective gastroenteritis and colitis, unspecified (09/23/18) Gastrointestinal hemorrhage, unspecified (09/23/18) Unspecified abdominal pain (09/23/18) Abnormal results of liver function studies (09/23/18) Presence of prosthetic heart valve (09/23/18) Allergies Penicillins Allergy (Mild, Verified 09/23/18 08:18) HIVES Height/Weight/Isolation Height 5 ft 9 in Weight 64.6 kg Chemistry 09/23/18 09/24/18 08:15 06:46 Sodium 138 138 Potassium 3.9 3.5 Chloride 106 107 Carbon Dioxide 25 23 Anion Gap 8.0 8.0 BUN 7 4 L Creatinine 0.70 0.50 L Glucose 104 H 106 H Urinalysis 09/23/18 09/23/18 22:30 Unknown Urine Color Yellow Dark Yellow Urine Appearance Clear Clear Urine pH 5.0 5.0 Ur Specific [place] 1.023 > 1.045 H Urine Protein Trace H Negative Urine Glucose (UA) Negative Negative Urine Ketones Negative Negative Urine Blood Negative Negative Urine Nitrite Negative Negative Urine Bilirubin Negative Negative Microbiology 09/23/18 22:30 Urine,Clean Catch Urine Culture - Pending 09/23/18 Unknown Stool Shiga Toxin Test - Pending 09/23/18 Unknown Stool Stool Culture - Pending 09/23/18 12:54 Blood Blood Culture - Pending 09/23/18 12:59 Blood Blood Culture - Pending (1) GI bleed GI bleed type/associated pathology: unspecified gastrointestinal hemorrhage type Qualified Code(s): K92.2 - Gastrointestinal hemorrhage, unspecified
[2018-09-24] MEDS ORDERED: METOPROLOL TARTRATE 1 MG/ML VIAL IV ONE (12:26)
--- NOTE | 2018-09-24 12:28 | Anesthesiology Consultation ---
Date of Service September 24, 2018 Assessment & Plan (1) Encounter for pre-operative examination: Chart Review Chart Review: Acceptable Risk for Surgery and Patient NOT seen in Pre Admission Testing Consults Requested none History Surgery Operation Date: 09/24/18 08:10 Proposed Procedures p Colonoscopy, and Esophagastroduodenoscopy Dr Samuel Baker Height/Weight Height: 5 ft 9 in Weight: 64.6 kg Allergies Allergy/AdvReac Type Severity Reaction Status Date / Time Penicillins Allergy Mild HIVES Verified 09/23/18 08:18 Medications Home Medications Medication Instructions Recorded Confirmed Last Taken Spiriva with HandiHaler 1 cap INHALATION DAILY 04/12/18 09/23/18 04/21/18 07:00 acetaminophen [Tylenol Arthritis 2 tab PO Q8H PRN 04/12/18 09/23/18 04/21/18 06:30 Pain] cyanocobalamin (vitamin B-12) 1,000 mcg PO DAILY 04/12/18 09/23/18 04/21/18 07:00 [Vitamin B-12] gabapentin 100 mg PO TID PRN 04/12/18 09/23/18 Unknown levothyroxine 112 mcg PO DAILY 04/12/18 09/23/18 09/22/18 mesalamine [Lialda] 3.6 g PO QAM 04/12/18 09/23/18 04/20/18 07:00 tramadol 50 mg PO DAILY PRN 04/12/18 09/23/18 Unknown vitamin E 800 unit PO DAILY 04/12/18 09/23/18 04/21/18 07:00 albuterol sulfate 2 puff INHALATION Q6H PRN 09/23/18 09/23/18 Unknown aspirin [Aspir-81] 81 mg PO DAILY 09/23/18 09/23/18 Unknown atorvastatin 40 mg PO HS 09/23/18 09/23/18 Unknown conjugated estrogens [Premarin] 0.625 mg PO DAILY 09/23/18 09/23/18 Unknown metoprolol succinate 12.5 mg PO BID 09/23/18 09/23/18 09/22/18 warfarin 2 mg PO UD 09/23/18 09/23/18 Unknown Active Medications Generic Name Dose Route Start Last Admin Trade Name Freq PRN Reason Stop Dose Admin Ciprofloxacin 400 mg in 200 mls @ 100 mls/hr 09/23/18 14:00 05/03/19 04:10 Cipro IV 10/03/18 13:59 Infused Q12H SALLY Infusion Metronidazole 500 mg in 100 mls @ 100 mls/hr 09/23/18 13:30 09/24/18 06:47 Flagyl IV 10/03/18 13:29 Infused Q8 SALLY Infusion Levothyroxine Sodium 112 mcg 09/24/18 06:30 09/24/18 05:47 Synthroid PO 10/24/18 06:29 112 mcg DAILYBB SALLY Administration Metoprolol Succinate 25 mg 09/23/18 14:00 09/23/18 20:12 Toprol Xl PO 10/23/18 13:59 25 mg BID SALLY Administration Miscellaneous 1 ea 09/23/18 16:00 09/24/18 11:07 Order Awaiting Action N/A 10/23/18 15:59 Not Given QS SALLY Pantoprazole Sodium 40 mg 09/23/18 21:00 09/23/18 20:13 Protonix PO 09/27/18 09:01 40 mg BID SALLY Administration NPO Date Last Intake of Fluids: 09/23/18 Time Last Intake of Fluids: 23:59 Last Intake of Fluids Comment: Prep Date Last Intake of Solids: 09/22/18 Time Last Intake of Solids: 09:00 Past Medical History Medical History Crohn disease (Chronic) Ulcerative colitis (Chronic) Diverticulitis (Chronic) Hypothyroidism (Chronic) Meningioma (Chronic) COPD (chronic obstructive pulmonary disease) (Chronic) Atrial flutter (Chronic) Chondrosarcoma (Chronic Unknown) S/P resection History of thyroidectomy (Chronic Unknown) History of total hysterectomy (Chronic Unknown) "2001 " Intracranial meningioma (Chronic Unknown) Carotid artery occlusion (Chronic) Crohns disease (Chronic) Former smoker (Chronic) Hyperlipidemia (Chronic) Osteoarthritis (Chronic) Spinal stenosis (Chronic) Stenosis of aorta (Chronic) Valvular heart disease (Chronic) Cardiac murmur Past Family History Family History Other Coronary heart disease Past Surgical History Surgical History S/P colon resection (Chronic) S/P aortic valve replacement (Chronic) History of appendectomy (Chronic) History of thoracic surgery (Chronic) Social History Smoking Status: Former smoker Hx Alcohol Use: Yes Alcohol type: beer and wine alcohol intake frequency: a few times a week Hx Substance Use: No substance use type: does not use Physical Exam Vital Signs Last Vital Signs Temp 36.5 C 09/24/18 12:01 Pulse 121 H 09/24/18 12:01 Resp 18 09/24/18 12:01 BP 129/97 09/24/18 12:01 Pulse Ox 95 09/24/18 12:01 Testing Laboratory Results 09/24/18 06:46 09/24/18 06:46 Blood Type O Negative 09/23/18 09:05 Antibody Screen NEGATIVE 09/23/18 09:05 PT 14.6 Seconds (9.0-12.0) H 09/24/18 06:46 INR 1.5 (0.9-1.1) H 09/24/18 06:46 APTT 26.2 Seconds (21.0-31.0) 09/23/18 08:15 Urine Color Dark Yellow 09/23/18 Unknown Urine Appearance Clear (Clear) 09/23/18 Unknown Urine pH 5.0 (4.5-7.5) 09/23/18 Unknown Ur Specific [place] > 1.045 (1.000-1.030) H 09/23/18 Unknown Urine Protein Negative (Negative) 09/23/18 Unknown Urine Glucose (UA) Negative (Negative) 09/23/18 Unknown Urine Ketones Negative (Negative) 09/23/18 Unknown Urine Nitrite Negative (Negative) 09/23/18 Unknown Ur Leukocyte Esterase Negative (Negative) 09/23/18 Unknown Urine WBC (Auto) 10-30 /hpf (0-5) H 09/23/18 22:30 Urine RBC (Auto) 0-4 /hpf (0-4) 09/23/18 22:30 U Hyaline Cast (Auto) 1-5 /lpf (0-5) 09/23/18 22:30 U Epithel Cells (Auto) >30 /lpf (0-5) H 09/23/18 22:30 Urine Bacteria (Auto) Negative (Negative) 09/23/18 22:30
[2018-09-24] MEDS ORDERED: ePHEDrine sulfate 50 MG/ML AMP IV PRN (12:31)
[2018-09-24] MEDS ORDERED: ATROPINE SULFATE 0.1 MG/ML 10ML SYR IV PRN (12:31)
--- NOTE | 2018-09-24 13:00 | History & Physical Bridge Note ---
Date of Service September 24, 2018 History & Physical Bridge Note I have examined the patient, reviewed the History & Physical and in the interval since the performance of the History & Physical I have noted the following changes of clinical significance: no changes noted. Upper endoscopy was recommended to evaluate for evidence of portal hypertension given her CT scan. We are also planning for colonoscopy today due to her history of hematochezia. We have discussed the risks of the procedures to include bleeding, infection, perforation pain and need for follow-up studies.
[2018-09-24] MEDS: PANTOprazole 40 MG TAB PO SCH ×2 (13:36→20:41)
[2018-09-24] MEDS: ESTROGENS, CONJUGATED 0.625 MG TAB PO SCH (13:36)
[2018-09-24] MEDS: METOPROLOL SUCC 25MG EXT REL TAB PO SCH ×2 (13:37→20:41)
--- NOTE | 2018-09-24 13:40 | GI REPORT ---
Patient Name: Nereida Stephen Procedure Date: 09/24/2018 1:12 PM Date of : 1940 Admit Type: Inpatient Age: 78 Gender: Female Attending MD: Gauri Baker DO Procedure: Upper GI endoscopy Providers: Gauri Baker DO Referring MD: Al Hassan Indications: Abnormal CT of the GI tract Medicines: Monitored Anesthesia Care Complications: No immediate complications. Estimated blood loss: Minimal. Estimated Blood Loss: Estimated blood loss was minimal. Procedure: Pre-Anesthesia Assessment: - Prior to the procedure, a History and Physical was performed, and patient medications, allergies and sensitivities were reviewed. The patient's tolerance of previous anesthesia was reviewed. - The risks and benefits of the procedure and the sedation options and risks were discussed with the patient. All questions were answered and informed consent was obtained. - Patient identification and proposed procedure were verified prior to the procedure by the physician, the nurse and the dye machine operator. The procedure was verified in the procedure room. - Pre-procedure physical examination revealed no contraindications to sedation. - ASA Grade Assessment: III - A patient with severe systemic disease. - After reviewing the risks and benefits, the patient was deemed in satisfactory condition to undergo the procedure. - The anesthesia plan was to use monitored anesthesia care (MAC). - Immediately prior to administration of medications, the patient was re-assessed for adequacy to receive sedatives. - The heart rate, respiratory rate, oxygen saturations, blood pressure, adequacy of pulmonary ventilation, and response to care were monitored throughout the procedure. - The physical status of the patient was re-assessed after the procedure. After obtaining informed consent, the endoscope was passed under direct vision. Throughout the procedure, the patient's blood pressure, pulse, and oxygen saturations were monitored continuously. The scope was introduced through the mouth, and advanced to the third part of duodenum. The upper GI endoscopy was accomplished without difficulty. The patient tolerated the procedure well. Findings: The examined esophagus was normal. The Z-line was regular and was found 39 cm from the incisors. Diffuse mild inflammation characterized by congestion (edema), erythema and granularity was found in the entire examined stomach. Biopsies were taken with a cold forceps for histology. Estimated blood loss was minimal. The duodenal bulb and second portion of the duodenum were normal. A small submucosal mass with no bleeding was found in the third portion of the duodenum. Biopsies were taken with a cold forceps for histology. Estimated blood loss was minimal, there was white fluid coming out from the biopsy site (suggestive of cyst or chylous material). Impression: - Normal esophagus. - Z-line regular, 39 cm from the incisors. - Gastritis. Biopsied. - Normal duodenal bulb and second portion of the duodenum. - Rule out malignancy, duodenal mass. Biopsied. Recommendation: - Continue present medications. - Perform a colonoscopy today. - Await pathology results. - Repeat upper endoscopy in 1 year for surveillance. Gauri Baker D.O. Gauri Baker, 09/24/2018 1:40:03 PM This report has been signed electronically. Note Initiated On: 09/24/2018 1:12 PM Number of Addenda: 0 I attest to the content of the Intraoperative Record and orders documented therein, exceptions below {[id number]}
--- NOTE | 2018-09-24 13:46 | GI REPORT ---
Patient Name: Nereida Stephen Procedure Date: 09/24/2018 1:11 PM Date of : 1940 Admit Type: Inpatient Age: 78 Gender: Female Attending MD: Gauri Baker DO Procedure: Colonoscopy Providers: Gauri Baker DO Referring MD: Al Hassan Indications: Hematochezia Medicines: Monitored Anesthesia Care Complications: No immediate complications. Estimated blood loss: Minimal. Estimated Blood Loss: Estimated blood loss was minimal. Procedure: Pre-Anesthesia Assessment: - Prior to the procedure, a History and Physical was performed, and patient medications, allergies and sensitivities were reviewed. The patient's tolerance of previous anesthesia was reviewed. - The risks and benefits of the procedure and the sedation options and risks were discussed with the patient. All questions were answered and informed consent was obtained. - Patient identification and proposed procedure were verified prior to the procedure by the physician, the nurse and the senior lead project manager. The procedure was verified in the procedure room. - Pre-procedure physical examination revealed no contraindications to sedation. - ASA Grade Assessment: III - A patient with severe systemic disease. - After reviewing the risks and benefits, the patient was deemed in satisfactory condition to undergo the procedure. - The anesthesia plan was to use monitored anesthesia care (MAC). - Immediately prior to administration of medications, the patient was re-assessed for adequacy to receive sedatives. - The heart rate, respiratory rate, oxygen saturations, blood pressure, adequacy of pulmonary ventilation, and response to care were monitored throughout the procedure. - The physical status of the patient was re-assessed after the procedure. After I obtained informed consent, the scope was passed under direct vision. Throughout the procedure, the patient's blood pressure, pulse, and oxygen saturations were monitored continuously. The scope was introduced through the anus and advanced to the terminal ileum. The colonoscopy was performed without difficulty. The patient tolerated the procedure well. The quality of the bowel preparation was good. Findings: The perianal and digital rectal examinations were normal. Pertinent negatives include normal sphincter tone. The terminal ileum appeared normal. Estimated blood loss was minimal. A diffuse area of granular mucosa with evidence of scarring was found in the entire colon (consistent with her history of IBD). Biopsies were taken with a cold forceps from the right colon, left colon and transverse colon for Crohn's disease surveillance. These biopsy specimens from the right colon, left colon and transverse colon were sent to Pathology. Estimated blood loss was minimal. Internal hemorrhoids were found during retroflexion. The hemorrhoids were mild. There was evidence of a prior end-to-side colo-colonic anastomosis in the sigmoid colon. This was patent and was characterized by healthy appearing mucosa. The anastomosis was traversed. Multiple small-mouthed diverticula were found in the sigmoid colon and anastomosis. Impression: - The examined portion of the ileum was normal. - Granularity in the entire examined colon. Biopsied. - Internal hemorrhoids. - Patent end-to-side colo-colonic anastomosis, characterized by healthy appearing mucosa. - Mild diverticulosis in the sigmoid colon and at the colonic anastomosis. Recommendation: - Return patient to hospital rader for ongoing care. - Resume regular diet today. - Await pathology results. - Repeat colonoscopy in 2 years for surveillance. - Return to GI office in 6 months. - May start anticoagulation in 24 hours given the biopsies from today. Gauri Baker D.O. Gauri Baker, 09/24/2018 1:46:13 PM This report has been signed electronically. Note Initiated On: 09/24/2018 1:11 PM Number of Addenda: 0 I attest to the content of the Intraoperative Record and orders documented therein, exceptions below {[id number]}
[2018-09-24] MEDS ORDERED: LIDOCAINE HCL 2% 2 ML VIAL/AMP(20MG/ML) INFIL ONE (14:43)
[2018-09-24] MEDS ORDERED: PROPOFOL IV EMULSION 10 MG/ML 20 ML VIAL IV ONE (14:43)
--- NOTE | 2018-09-24 15:29 | Anesthesiology Progress Note ---
Date of Service September 24, 2018 Anesthesia Post Procedure Vital Signs Vital Signs: Temp Pulse Pulse Pulse Resp BP BP 09/24/18 14:58 36.7 C 87 20 09/24/18 14:15 36.3 C L 121 H 18 09/24/18 14:09 107 H 16 09/24/18 13:54 108 H 16 09/24/18 13:39 94 H 16 09/24/18 12:27 121 H 129/97 09/24/18 12:01 36.5 C 121 H 18 09/24/18 11:16 36.3 C L 121 H 18 09/24/18 07:27 36.8 C 119 H 18 09/24/18 04:28 36.8 C 119 H 20 119/84 09/24/18 01:25 120 H 09/23/18 22:53 36.2 C L 122 H 18 113/79 09/23/18 19:36 36.4 C L 103 H 09/23/18 15:40 36.3 C L 91 H 18 98/65 L BP Pulse Ox 09/24/18 14:58 119/70 97 09/24/18 14:15 130/80 97 09/24/18 14:09 127/86 97 09/24/18 13:54 122/92 100 09/24/18 13:39 94/59 L 97 09/24/18 12:27 09/24/18 12:01 129/97 95 09/24/18 11:16 118/80 95 09/24/18 07:27 117/83 94 09/24/18 04:28 95 09/24/18 01:25 09/23/18 22:53 95 09/23/18 19:36 99/58 L 96 09/23/18 15:40 94 Transfer of Care Handoff Completed per policy Notes Mental Status: alert / awake / arousable Patient Amnestic to Procedure: Yes Nausea / Vomiting: adequately controlled Pain: adequately controlled Airway Patency, RR, SpO2: stable & adequate BP & HR: stable & adequate Hydration State: stable & adequate Anesthetic Complications: no major complications apparent and Pt Satisfied with anesthetic care
--- NOTE | 2018-09-24 15:38 | Cardiology Progress Note ---
Date of Service September 24, 2018 Assessment & Plan (1) Atrial flutter: (2) S/P aortic valve replacement: (3) Ileitis: Continue metoprolol succinate 25 mg twice daily. GI recommended holding off on initiating anticoagulation for 24 hours post biopsy. When I brought up the discussion regarding possible transesophageal echocardiogram guided cardioversion, the patient was very hesitant yesterday. She appears to favor a trial of rate control. Subjective Chief complaint: Follow-up abdominal discomfort, tachycardia Subjective: Patient seen and examined having had EGD and colonoscopy earlier today. Telemetry reveals ongoing atrial flutter. Resting heart rates are in the range of 90 bpm which is certainly improved compared to admission. She still has an uneasiness in her abdomen. EGD and colonoscopy revealed inflammation without nico source of bleeding. Review of Systems Review of Systems: Denies subjective palpitations at rest Physical Exam Constitutional: + ill appearing (Ill-appearing without acute distress) Respiratory: normal respiratory effort, lungs clear to auscultation Cardiovascular: Irregular rhythm, 1/6 systolic murmur, no edema Gastrointestinal (Abdomen): Percussion/Palpation: abdomen soft; abdomen nontender Neurologic: No focal deficits, conversant, moves all 4 extremities Results & Data Vital Signs (Past 12 Hours) Vital Signs Temp Pulse Pulse Pulse Resp BP BP 09/24/18 14:58 36.7 C 87 20 09/24/18 14:15 36.3 C L 121 H 18 09/24/18 14:09 107 H 16 09/24/18 13:54 108 H 16 09/24/18 13:39 94 H 16 09/24/18 12:27 121 H 129/97 09/24/18 12:01 36.5 C 121 H 18 09/24/18 11:16 36.3 C L 121 H 18 09/24/18 07:27 36.8 C 119 H 18 09/24/18 04:28 36.8 C 119 H 20 119/84 BP Pulse Ox 09/24/18 14:58 119/70 97 09/24/18 14:15 130/80 97 09/24/18 14:09 127/86 97 09/24/18 13:54 122/92 100 09/24/18 13:39 94/59 L 97 09/24/18 12:27 09/24/18 12:01 129/97 95 09/24/18 11:16 118/80 95 09/24/18 07:27 117/83 94 09/24/18 04:28 95 Laboratory Results Cardiac Enzymes 09/23/18 09/24/18 Range/Units 19:52 06:46 AST 93 H (15-37) U/L Troponin I 0.016 (0-0.045) ng/ml Coagulation 09/24/18 Range/Units 06:46 PT 14.6 H (9.0-12.0) Seconds CBC 09/24/18 Range/Units 06:46 WBC 4.33 L (4.8-10.8) K/uL RBC 4.06 L (4.2-5.4) M/uL Hgb 11.7 L (12.0-16.0) g/dL Hct 36.1 L (37-47) % Plt Count 148 (130-400) K/uL Comprehensive Metabolic Panel 09/24/18 Range/Units 06:46 Sodium 138 (136-145) mmol/L Potassium 3.5 (3.5-5.1) mmol/L Chloride 107 (98-107) mmol/L Carbon Dioxide 23 (21-32) mmol/L BUN 4 L (7-18) mg/dl Creatinine 0.50 L (0.6-1.2) mg/dl Glucose 106 H (70-99) mg/dl Calcium 8.0 L (8.5-10.1) mg/dl Direct Bilirubin 0.7 H (0-0.2) mg/dl AST 93 H (15-37) U/L ALT 116 H (12-78) U/L Alkaline Phosphatase 296 H (45-117) U/L Total Protein 5.9 L (6.4-8.2) gm/dl Albumin 2.8 L (3.4-5.0) gm/dl Intake and Output 09/24/18 09/24/18 09/24/18 06:59 14:59 22:59 Intake Total 1400 / 6550 Balance 1400 / 6544 Intake: IV 1400 / 3750 CIPRO 400 mg In 200 ml @ 100 200 / 400 mls/hr IV Q12H SALLY Rx#:[id number] Nss 1000ML 1,000 ml @ 80 mls/hr 1000 / 1000 IV .[id number] SALLY Rx#:[id number] FLAGYL 500 mg In 100 ml @ 100 200 / 300 mls/hr IV Q8 [facility] Rx#:[id number] Other: Other Intake Source NPO NPO Weight 64.6 kg Patient Weight 09/25/18 06:59 Weight 64.6 kg
--- NOTE | 2018-09-24 16:58 | Communication Note ---
Date of Service: September 24, 2018 The patient underwent upper endoscopy and colonoscopy this afternoon. The upper endoscopy was notable for mild gastritis and no evidence of esophageal varices. The colonoscopy was notable for no obvious active disease, liver there was evidence of prior scarring from her Crohn's disease. We did obtain biopsies from the stomach and colon. The colonoscopy also revealed several diverticuli in the region of her colonic anastomosis. Finally internal hemorrhoids were noted which were the likely culprit of her hematochezia prior to admission. Recommendations Advance diet as tolerated MRCP ordered due to elevation of her liver enzymes
--- NOTE | 2018-09-24 20:22 | Magnetic Resonance Report ---
MRCP CLINICAL HISTORY: Generalized abdominal pain. 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 COMPARISON STUDY: Abdominal CT dated 09/23/2018. TECHNIQUE: Abdominal MRCP is performed utilizing various T2-weighted sequences in the axial and coron al planes. IV contrast was not administered for this examination. 3-D reformats were created and asse ssed. The examination is significantly compromised by motion artifact. FINDINGS: The gallbladder is partially distended. There is significant gallbladder wall thickening an d edema. No definite gallstones are clearly identified. There may be intraluminal sludge. There is no intra or extrahepatic biliary ductal dilatation. The common bile duct measures up to 3 mm. No fillin g defects are seen to suggest choledocholithiasis. The pancreatic duct is normal in caliber. There is intrahepatic edema identified around the portal triads. No definite stricturing of the intrahepatic bile ducts is identified. The liver is enlarged and heterogeneous in its signal intensity, measuring over 18 cm in length. A 2. 0 cm hemangioma is again seen in the left hepatic lobe. The unenhanced spleen and adrenal glands are grossly normal. The kidneys demonstrate cortical atrophy and are without hydronephrosis. A left renal cyst measures up to 3.3 cm. Additional smaller cysts are seen bilaterally. The pancreas is atrophic. A 4 mm cystic focus within the pancreatic head likely represents a small sidebranch IPMN. There is n o bowel obstruction. Thick walled bowel loops are identified in the right lower quadrant. The abdomin al aorta is normal in caliber. There is trace perihepatic ascites, which is new from yesterday's CT s can. There are trace pleural effusions. No destructive bony process is identified. IMPRESSION: 1. Significantly motion compromised examination. 2. There is no intra or extrahepatic biliary ductal dilatation. No gallstones are clearly identified and there is no evidence of choledocholithiasis. 3. The gallbladder is not distended. There is significant gallbladder wall thickening and edema, as w ell as mild pericholecystic inflammation. Additionally, there is nonspecific edema identified surroun ding the intrahepatic portal triads. This could be related to volume status/fluid overload. Cholecyst itis and the clinically suspected diagnosis of ascending cholangitis would be impossible to exclude a nd clinical correlation will be required. 4. The intrahepatic bile ducts are not well visualized. No definite stricturing is identified. 5. There is trace perihepatic ascites, new from yesterday. 6. Trace pleural effusions. 7. Thick walled bowel loops are again seen in the right lower quadrant, likely corresponding to ileit is as seen on yesterday's CT scan. Dictated: 09/24/2018 6:44 PM Transcribed: 09/24/2018 8:22 PM Magali [id number] [email or web address] Electronically signed by: Erasto Bhakta M.D. 09/24/2018 8:26 PM
[2018-09-24] MEDS ORDERED: ZOLPIDEM TARTRATE 5 MG TAB PO PRN (22:59)
[2018-09-25] MEDS: CIPROFLOXACIN 400 MG/200 ML BAG IV SCH ×2 (01:46→14:21)
[2018-09-25] MEDS: LEVOTHYROXINE SODIUM 112 MCG TABLET PO SCH (05:39)
[2018-09-25] MEDS: metroNIDAZOLE 500 MG/100 ML BAG IV SCH ×3 (05:39→21:57)
[2018-09-25] MEDS: ACETAMINOPHEN 325 MG TAB PO PRN (07:54)
[2018-09-25] MEDS: TIOTROPIUM BROMIDE 5 PUFF/90 MCG INH INH SCH (07:56)
[2018-09-25] MEDS: ESTROGENS, CONJUGATED 0.625 MG TAB PO SCH (07:56)
[2018-09-25] MEDS: METOPROLOL SUCC 25MG EXT REL TAB PO SCH ×2 (07:56→20:56)
[2018-09-25] MEDS: PANTOprazole 40 MG TAB PO SCH ×2 (07:56→20:56)
[2018-09-25 08:53] LABS: Hematocrit (blood only) 38.2 % (37-47); Hemoglobin 12.8 g/dL (12.0-16.0); Mean Corpuscular Hgb Conc 33.5 g/dL (32-36); Mean Corpuscular Volume 88.6 fL (80-100); Mean Platelet Volume 10.3 fL (7.4-10.4); Platelet Count 154 K/uL (130-400); RDW Coefficient of Variation 14.2 % (11.5-14.5); RDW Standard Deviation 46.4 fL (36.4-46.3); Red Blood Count 4.31 M/uL (4.2-5.4); White Blood Count 5.83 K/uL (4.8-10.8)
[2018-09-25 09:23] LABS: BUN Creatinine Ratio 10.6 (10-20); Calcium 8.5 mg/dl (8.5-10.1); Creatinine Clr Calc Pharmacy 79.5 ml/min; Est GFR (African American) 100.5; Est GFR (Non-African American) 86.7; Potassium 3.4 mmol/L (3.5-5.1)
[2018-09-25 09:26] LABS: Albumin Globulin Ratio 0.9 (0.9-2); Bilirubin,Total 1.5 mg/dl (0.2-1); Globulin 3.4 gm/dl (2.5-4.0); Total Protein 6.4 gm/dl (6.4-8.2)
--- NOTE | 2018-09-25 12:01 | Hospitalist Progress Note ---
Date of Service September 25, 2018 Assessment & Plan (1) Abdominal pain: (2) Ileitis: (3) GI bleed: Pt reports hx ulcerative colitis. Out patient GI record states hx Crohn's. Hx diverticulitis s/p colon resection Pt presented to ER with c/o lower abdominal pain for past several days. Reports hx constipation and intermittent nausea x 1 month, taking Miralax. Reports loose stools last night. Also reports some red blood in bowel movements. In ER pt afebrile, P: 129, R: 18, BP: 109/68, 94% on RA. WBC: 7.6, H/H: 14/42, INR: 1.2, Total bili: 2.0, AST: 114, ALT: 153, Alk Phos: 366, INR: 1.2 (on Coumadin). Reported heme positive stool. CT ABD/PELVIS: Findings are consistent with a nonspecific ileitis. This is likely on an infectious or inflammatory basis and clinical correlation will be required. The liver is enlarged, markedly heterogeneous in attenuation, and there is nodularity of the hepatic surface contour suggesting changes of cirrhosis. This represents a significant change from the 2010 examination. There is postoperative change from sigmoid colon resection with colocolonic anastomosis. No bowel obstruction is identified. -stool culture, c-diff neg -cipro, flagyl -continue mesalamine -Type and cross and hold -IVF -clear liquid diet -GI consult, EGD-Gastritis, Colonoscopy C Diverticulosis, +Internal Hemorrhoids -monitor CBC, CMP (4) Atrial flutter: 09/15/18 Cardiology started Toprol 12.5mg BID and Coumadin for atrial flutter with HR 128. Had recent echo outpatient (unable to view full report, EF: 40%) Patient had INR of 1.0 yesterday and reports did not get further dosing instructions and has been taking 2 mg daily. She states continues with palpitations and her HR at home has been 120. In ER P: 120's. Pt did not have her am medications. Was given 2L NSS, Lopressor 10mg IV total. No significant electrolyte abnormality, TSH: 1.5 INR: 1.2 Long D/W Cardiology about case, we talked about several options, Dr Garza to see later today. (5) Elevated LFTs: Total bili: 2.0, AST: 114, ALT: 153, Alk Phos: 366, INR: 1.2 (on Coumadin). 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 Had recent echo outpatient (unable to view full report, EF: 40%) Patient had INR of 1.0 yesterday and reports did not get further dosing instructions and has been taking 2 mg daily. She states continues with palpitations and her HR at home has been 120. In ER P: 120's. Pt did not have her am medications. Was given 2L NSS, Lopressor 10mg IV total. 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 Appetite is Normal, No F/C/CP Physical Exam Gen-AAO x 3, NAD, Afebrile Head-NCAT, EOMI, PERRLA, Anicteric Sclera, No Posterior Pharyngeal Erythema Neck-Supple, No JVD, No Thyromegaly, No Masses, No LAD, No Bruits Lungs-Clear to Auscultation Bilaterally, No Rales, No Rhonchi, No Wheezing, No Crepitus Chest-No S4, +S1, +S2, No S3, No Murmurs, No Rubs, No Gallops, No Ectopy Abdomen-Soft, Bowel Sounds Present, Non Tender, Non Distended, No Hepatomegaly, No Splenomegaly, No Palpable Masses, No Rebound, No Rigidity, No Guarding Musculoskeletal-Full Range of Motion Bilaterally, No CVAT Extremities-No Cyanosis, No Clubbing, + Edema, LLE wrapped Nuero-Cranial Nerves II-XII grossly intact, Motor WNL, DTRs WNL, Strength WNL, Non Focal Psych-Normal Mood Results & Data Vital Signs (Past 12 Hours) Vital Signs Temp Pulse Pulse Resp BP BP Pulse Ox 09/25/18 08:00 37.0 C 117 H 18 110/77 95 09/25/18 04:00 36.6 C 120 H 18 121/90 94 09/25/18 00:28 119 H Current Diagnoses Malignant neoplasm of bone and articular cartilage, unspecified (09/23/18) Benign neoplasm of meninges, unspecified (09/23/18) Hypothyroidism, unspecified (09/23/18) Unspecified atrial flutter (09/23/18) Chronic obstructive pulmonary disease, unspecified (09/23/18) Crohn's disease, unspecified, without complications (09/23/18) Noninfective gastroenteritis and colitis, unspecified (09/23/18) Gastrointestinal hemorrhage, unspecified (09/23/18) Unspecified abdominal pain (09/23/18) Abnormal results of liver function studies (09/23/18) Encounter for other preprocedural examination (09/23/18) Presence of prosthetic heart valve (09/23/18) Allergies Penicillins Allergy (Mild, Verified 09/23/18 08:18) HIVES Height/Weight/Isolation Height 5 ft 9 in Weight 67.1 kg Chemistry 09/24/18 09/25/18 06:46 08:32 Sodium 138 138 Potassium 3.5 3.4 L Chloride 107 107 Carbon Dioxide 23 22 Anion Gap 8.0 9.0 BUN 4 L 6 L Creatinine 0.50 L 0.60 Glucose 106 H 108 H Urinalysis 09/23/18 09/23/18 22:30 Unknown Urine Color Yellow Dark Yellow Urine Appearance Clear Clear Urine pH 5.0 5.0 Ur Specific [place] 1.023 > 1.045 H Urine Protein Trace H Negative Urine Glucose (UA) Negative Negative Urine Ketones Negative Negative Urine Blood Negative Negative Urine Nitrite Negative Negative Urine Bilirubin Negative Negative Microbiology 09/23/18 Unknown Stool Shiga Toxin Test - Preliminary 09/23/18 Unknown Stool Stool Culture - Preliminary No Salmonella isolated to date, No Shigella isolated to date, No Campylobacter jejuni isolated to date. 09/23/18 12:59 Blood Blood Culture - Preliminary No growth to date. 09/23/18 12:54 Blood Blood Culture - Preliminary No growth to date. 09/23/18 22:30 Urine,Clean Catch Urine Culture - Pending (1) GI bleed GI bleed type/associated pathology: unspecified gastrointestinal hemorrhage type Qualified Code(s): K92.2 - Gastrointestinal hemorrhage, unspecified
[2018-09-25] MEDS ORDERED: POTASSIUM CHLORIDE 20 MEQ TABCR PO STA (16:45)
--- NOTE | 2018-09-25 16:46 | Cardiology Progress Note ---
Date of Service September 25, 2018 Assessment & Plan (1) Atrial flutter: Continue beta-berto. Resume cautious anticoagulation given presentation with blood per rectum. Check stat INR as her INR may have increased since yesterday given antibiotics, if INR less than 2, plan to administer 2 mg of Coumadin today and repeat INR tomorrow. I am hesitant to proceed with transesophageal echocardiogram guided cardioversion until we are certain the patient can tolerate anticoagulation. We will tentatively plan for 4 weeks of therapeutic anticoagulation and then elective cardioversion. Although ideally, I would like to control the patient's tachycardia sooner rather than later, the tachycardia has been an issue for about 6 months, and I do not think we need to villarreal things in terms of increasing her risk of stroke. If she would have a successful transesophageal echocardiogram guided cardioversion and then need to stop anticoagulation shortly thereafter due to leading, her stroke risk would be increased. (2) S/P aortic valve replacement: Stable findings on recent echocardiogram without prosthetic obstruction. Patient has been counseled by her cardiology provider in [place] that at some point, when her valve is to be replaced, the transcatheter aortic valve replacement would be the best approach. (3) Elevated LFTs: Agree with current work-up. This may be due to her tricuspid valve regurgitation with passive liver congestion. Subjective Chief complaint: Follow-up tachycardia Subjective: Patient resting comfortably in bed. Her [id number] who is a experimental assembler who is at the bedside. Telemetry reveals ongoing atrial flutter in the range of 110 to 125 bpm at rest. She was to take 50 mg of metoprolol succinate at 8 AM this morning, but apparently she did not take the pill until about noon. Physical Exam Physical Exam: General: no acute distress and stated age Eyes: conjunctiva are pink and non-injected, sclera clear Neck: normal jugular venous pulse, no hepatojugular reflux Chest: normal shape and normal respiratory effort -Evidence of prior sternal surgery with lack of sternum on the right cardiac border Lungs: clear to auscultation and percussion Cardiac Exam: -Tachycardic, 1/6 systolic murmur Abdomen: abdomen soft, non-tender, no abnormal masses and no hepatosplenomegaly Musculoskeletal: no gait disturbance, no weakness Extremities: no edema and no cyanosis Neuro:awake, coversant, follows commands, no focal motor deficits Psych: appropriate affect and insight. Results & Data Vital Signs (Past 12 Hours) Vital Signs Temp Pulse Resp BP BP Pulse Ox 09/25/18 16:25 36.4 C L 119 H 18 102/70 93 09/25/18 12:00 37.0 C 120 H 18 124/87 94 09/25/18 08:00 37.0 C 117 H 18 110/77 95 Laboratory Results Cardiac Enzymes 09/25/18 Range/Units 08:32 AST 84 H (15-37) U/L CBC 09/25/18 Range/Units 08:32 WBC 5.83 (4.8-10.8) K/uL RBC 4.31 (4.2-5.4) M/uL Hgb 12.8 (12.0-16.0) g/dL Hct 38.2 (37-47) % Plt Count 154 (130-400) K/uL Comprehensive Metabolic Panel 09/25/18 Range/Units 08:32 Sodium 138 (136-145) mmol/L Potassium 3.4 L (3.5-5.1) mmol/L Chloride 107 (98-107) mmol/L Carbon Dioxide 22 (21-32) mmol/L BUN 6 L (7-18) mg/dl Creatinine 0.60 (0.6-1.2) mg/dl Glucose 108 H (70-99) mg/dl Calcium 8.5 (8.5-10.1) mg/dl AST 84 H (15-37) U/L ALT 106 H (12-78) U/L Alkaline Phosphatase 296 H (45-117) U/L Total Protein 6.4 (6.4-8.2) gm/dl Albumin 3.0 L (3.4-5.0) gm/dl Intake and Output 09/25/18 09/25/18 09/25/18 06:59 14:59 22:59 Intake Total 300 / 700 625 / 825 200 / 825 Balance 300 / 700 625 / 825 200 / 825 Intake: IV 300 / 700 100 / 300 200 / 300 CIPRO 400 mg In 200 ml @ 100 200 / 400 200 / 200 mls/hr IV Q12H SALLY Rx#:[id number] FLAGYL 500 mg In 100 ml @ 100 100 / 300 100 / 100 mls/hr IV Q8 SALLY Rx#:[id number] Oral 525 / 525 Other: Other Intake Source npo Weight 67.1 kg
[2018-09-25] MEDS ORDERED: WARFARIN SOD 2 MG TAB PO STA (16:47)
[2018-09-25 17:24] LABS: INR 1.4 (0.9-1.1); Prothrombin Time 13.6 Seconds (9.0-12.0)
[2018-09-25] MEDS ORDERED: WARFARIN SOD 2.5 MG TAB PO STA (18:08)
[2018-09-26] MEDS: CIPROFLOXACIN 400 MG/200 ML BAG IV SCH ×2 (01:47→14:13)
[2018-09-26] MEDS ORDERED: MoRPHine SULFATE 2 MG/ML CARP IV STA (02:58)
[2018-09-26] MEDS ORDERED: ALBUTEROL HFA 8 GM INHALER INH PRN (04:36)
[2018-09-26] MEDS: LEVOTHYROXINE SODIUM 112 MCG TABLET PO SCH (05:46)
[2018-09-26] MEDS: metroNIDAZOLE 500 MG/100 ML BAG IV SCH ×3 (05:46→20:24)
[2018-09-26 05:47] LABS: Hematocrit (blood only) 38.3 % (37-47); Hemoglobin 12.6 g/dL (12.0-16.0); Mean Corpuscular Hgb Conc 32.9 g/dL (32-36); Mean Corpuscular Volume 88.5 fL (80-100); Mean Platelet Volume 9.8 fL (7.4-10.4); Platelet Count 162 K/uL (130-400); RDW Coefficient of Variation 14.2 % (11.5-14.5); RDW Standard Deviation 46.3 fL (36.4-46.3); Red Blood Count 4.33 M/uL (4.2-5.4); White Blood Count 6.33 K/uL (4.8-10.8)
[2018-09-26 06:00] LABS: INR 1.3 (0.9-1.1); Prothrombin Time 13.1 Seconds (9.0-12.0)
[2018-09-26 06:27] LABS: Albumin Globulin Ratio 0.9 (0.9-2); BUN Creatinine Ratio 15.9 (10-20); Bilirubin,Total 1.2 mg/dl (0.2-1); Calcium 8.1 mg/dl (8.5-10.1); Creatinine Clr Calc Pharmacy 73.3 ml/min; Est GFR (African American) 97.9; Est GFR (Non-African American) 84.4; Globulin 3.4 gm/dl (2.5-4.0); Potassium 4.3 mmol/L (3.5-5.1); Total Protein 6.4 gm/dl (6.4-8.2)
[2018-09-26] MEDS: ESTROGENS, CONJUGATED 0.625 MG TAB PO SCH (07:27)
[2018-09-26] MEDS: PANTOprazole 40 MG TAB PO SCH ×2 (07:27→20:24)
[2018-09-26] MEDS: METOPROLOL SUCC 25MG EXT REL TAB PO SCH ×2 (07:27→20:23)
[2018-09-26] MEDS: TIOTROPIUM BROMIDE 5 PUFF/90 MCG INH INH SCH (07:56)
--- NOTE | 2018-09-26 12:11 | Hospitalist Progress Note ---
Date of Service September 26, 2018 Assessment & Plan (1) Abdominal pain: (2) Ileitis: (3) GI bleed: Pt reports hx ulcerative colitis. Out patient GI record states hx Crohn's. Hx diverticulitis s/p colon resection Pt presented to ER with c/o lower abdominal pain for past several days. Reports hx constipation and intermittent nausea x 1 month, taking Miralax. Reports loose stools last night. Also reports some red blood in bowel movements. In ER pt afebrile, P: 129, R: 18, BP: 109/68, 94% on RA. WBC: 7.6, H/H: 14/42, INR: 1.2, Total bili: 2.0, AST: 114, ALT: 153, Alk Phos: 366, INR: 1.2 (on Coumadin). Reported heme positive stool. CT ABD/PELVIS: Findings are consistent with a nonspecific ileitis. This is likely on an infectious or inflammatory basis and clinical correlation will be required. The liver is enlarged, markedly heterogeneous in attenuation, and there is nodularity of the hepatic surface contour suggesting changes of cirrhosis. This represents a significant change from the 2010 examination. There is postoperative change from sigmoid colon resection with colocolonic anastomosis. No bowel obstruction is identified. -stool culture, c-diff neg -cipro, flagyl -continue mesalamine -Type and cross and hold -IVF -clear liquid diet -GI consult, EGD-Gastritis, Colonoscopy C Diverticulosis, +Internal Hemorrhoids -monitor CBC, CMP (4) Atrial flutter: 09/15/18 Cardiology started Toprol 12.5mg BID and Coumadin for atrial flutter with HR 128. Had recent echo outpatient (unable to view full report, EF: 40%) Patient had INR of 1.0 yesterday and reports did not get further dosing instructions and has been taking 2 mg daily. She states continues with palpitations and her HR at home has been 120. In ER P: 120's. Pt did not have her am medications. Was given 2L NSS, Lopressor 10mg IV total. No significant electrolyte abnormality, TSH: 1.5 INR: 1.2 Dr Garza on case (5) Elevated LFTs: Total bili: 2.0, AST: 114, ALT: 153, Alk Phos: 366, INR: 1.2 (on Coumadin). 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 Had recent echo outpatient (unable to view full report, EF: 40%) Patient had INR of 1.0 yesterday and reports did not get further dosing instructions and has been taking 2 mg daily. She states continues with palpitations and her HR at home has been 120. 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 Appetite is Normal, No F/C/CP Physical Exam Gen-AAO x 3, NAD, Afebrile Head-NCAT, EOMI, PERRLA, Anicteric Sclera, No Posterior Pharyngeal Erythema Neck-Supple, No JVD, No Thyromegaly, No Masses, No LAD, No Bruits Lungs-Clear to Auscultation Bilaterally, No Rales, No Rhonchi, No Wheezing, No Crepitus Chest-No S4, +S1, +S2, No S3, No Murmurs, No Rubs, No Gallops, No Ectopy Abdomen-Soft, Bowel Sounds Present, Non Tender, Non Distended, No Hepatomegaly, No Splenomegaly, No Palpable Masses, No Rebound, No Rigidity, No Guarding Musculoskeletal-Full Range of Motion Bilaterally, No CVAT Extremities-No Cyanosis, No Clubbing, + Edema, LLE wrapped Nuero-Cranial Nerves II-XII grossly intact, Motor WNL, DTRs WNL, Strength WNL, Non Focal Psych-Normal Mood Results & Data Vital Signs (Past 12 Hours) Vital Signs Temp Pulse Resp BP BP Pulse Ox 09/26/18 08:17 36.6 C 117 H 16 120/88 92 09/26/18 04:15 36.5 C 118 H 16 122/82 91 09/26/18 02:48 36.7 C 114 H 20 129/95 92 Current Diagnoses Malignant neoplasm of bone and articular cartilage, unspecified (09/23/18) Benign neoplasm of meninges, unspecified (09/23/18) Hypothyroidism, unspecified (09/23/18) Unspecified atrial flutter (09/23/18) Chronic obstructive pulmonary disease, unspecified (09/23/18) Crohn's disease, unspecified, without complications (09/23/18) Noninfective gastroenteritis and colitis, unspecified (09/23/18) Gastrointestinal hemorrhage, unspecified (09/23/18) Unspecified abdominal pain (09/23/18) Abnormal results of liver function studies (09/23/18) Encounter for other preprocedural examination (09/23/18) Presence of prosthetic heart valve (09/23/18) Allergies Penicillins Allergy (Mild, Verified 09/23/18 08:18) HIVES Height/Weight/Isolation Height 5 ft 9 in Weight 67.1 kg Chemistry 09/25/18 09/26/18 08:32 05:17 Sodium 138 135 L Potassium 3.4 L 4.3 D Chloride 107 107 Carbon Dioxide 22 24 Anion Gap 9.0 4.0 BUN 6 L 10 Creatinine 0.60 0.65 Glucose 108 H 111 H Microbiology 09/23/18 22:30 Urine,Clean Catch Urine Culture - Final No growth - less than 1,000 colonies/mL. 09/23/18 Unknown Stool Shiga Toxin Test - Final 09/23/18 Unknown Stool Stool Culture - Final No Salmonella isolated, No Shigella isolated, No Campylobacter jejuni isolated. 09/23/18 12:59 Blood Blood Culture - Preliminary No growth to date. 09/23/18 12:54 Blood Blood Culture - Preliminary No growth to date. (1) GI bleed GI bleed type/associated pathology: unspecified gastrointestinal hemorrhage type Qualified Code(s): K92.2 - Gastrointestinal hemorrhage, unspecified
[2018-09-26] MEDS ORDERED: DIGOXIN 0.25 MG TAB PO ONE (12:53)
--- NOTE | 2018-09-26 13:03 | Cardiology Progress Note ---
Date of Service September 26, 2018 Assessment & Plan (1) Atrial flutter: (2) S/P aortic valve replacement: (3) Chondrosarcoma: (4) Elevated LFTs: Patient presented with bloody bowel movement. This was shortly after starting Coumadin as an outpatient. INR still been subtherapeutic at the time of presentation. By history, it sounds as if she has been in atrial flutter with rapid ventricular response for about 6 months. Anticoagulation with unfractionated heparin or Lovenox was not initiated due to concerns of bleeding on admission. After having completed EGD and colonoscopy, Coumadin has been reinitiated with caution. Continue metoprolol succinate 50 mg every morning, 25 mg every afternoon. Adding digoxin. Future considerations include diltiazem, however given the patient's LFT elevation, and in order to avoid potential fluid retention from calcium channel berto, will proceed with beta-berto and digoxin first. Regarding the patient's chest discomfort, she does have a history of chronic breathlessness. Per description she has chest discomfort episodes occasionally at rest as well as with exertion that come on randomly. Troponin is negative, will continue to observe. No obstructive CAD reported on remote cardiac catheterization prior to her aortic valve surgery. In terms of anticoagulation, Coumadin is the oral agent of choice as she does have a history of bioprosthetic aortic valve replacement. Will plan for 4 weeks of therapeutic anticoagulation and then trial of direct- current cardioversion. Besides the following with cardiology locally, the patient is also followed by the [facility], and she is going to consider having an outpatient EP assessment therapy as well given her complex history. 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 Her family was supportive of this decision to encourage the patient to limit her activity. Subjective Chief complaint: Follow-up tachycardia Subjective patient sitting comfortably in bed. Her daughter is at the bedside. I previously met her [id number] and her son. The patient had an episode of chest discomfort at rest last night. Troponin levels were therefore performed this morning at 5:17 AM and again 11:15 AM which were within normal limits. EKG performed today reveals ongoing flutter, rate 170 bpm, although the computer interpretation raises concerns of lateral ST segment depression, I think this appears stable compared to the prior tracing. There is significant artifact in V1 and it is therefore not diagnostic, the inferior leads actually look improved compared to admission. Physical Exam Physical Exam: General: no acute distress and stated age Eyes: conjunctiva are pink and non-injected, sclera clear Neck: normal jugular venous pulse, no hepatojugular reflux Chest: History of right sternal resection and reconstruction due to chondrosarcoma, right cardiac silhouette therefore noted prominently under her skin Lungs: clear to auscultation and percussion Cardiac Exam: - regular heart sounds, tachycardic, 1/6 systolic murmur rubs, or gallops, no jugular venous distention Abdomen: abdomen soft, non-tender, no abnormal masses and no hepatosplenomegaly Extremities: no edema and no cyanosis Neuro:awake, coversant, follows commands, no focal motor deficits Psych: appropriate affect and insight. Results & Data Vital Signs (Past 12 Hours) Vital Signs Temp Pulse Resp BP BP Pulse Ox 09/26/18 12:27 36.9 C 111 H 16 118/87 92 09/26/18 08:17 36.6 C 117 H 16 120/88 92 09/26/18 04:15 36.5 C 118 H 16 122/82 91 09/26/18 02:48 36.7 C 114 H 20 129/95 92 Laboratory Results INR 1.3 today. Hemoglobin stable at 12.6. Diagnostic Findings EKG as outlined above.
[2018-09-26] MEDS: ACETAMINOPHEN 325 MG TAB PO PRN (15:44)
[2018-09-27] MEDS: CIPROFLOXACIN 400 MG/200 ML BAG IV SCH (01:58)
[2018-09-27] MEDS: metroNIDAZOLE 500 MG/100 ML BAG IV SCH (06:04)
[2018-09-27] MEDS: LEVOTHYROXINE SODIUM 112 MCG TABLET PO SCH (06:08)
[2018-09-27 06:31] LABS: Hematocrit (blood only) 37.2 % (37-47); Hemoglobin 12.3 g/dL (12.0-16.0); Mean Corpuscular Hgb Conc 33.1 g/dL (32-36); Mean Corpuscular Volume 87.9 fL (80-100); Platelet Count 162 K/uL (130-400); RDW Coefficient of Variation 14.3 % (11.5-14.5); RDW Standard Deviation 46.1 fL (36.4-46.3); Red Blood Count 4.23 M/uL (4.2-5.4); White Blood Count 7.56 K/uL (4.8-10.8)
[2018-09-27 06:40] LABS: INR 1.3 (0.9-1.1); Prothrombin Time 13.3 Seconds (9.0-12.0)
[2018-09-27 06:48] LABS: BUN Creatinine Ratio 16.1 (10-20); Calcium 8.3 mg/dl (8.5-10.1); Creatinine Clr Calc Pharmacy 72.2 ml/min; Est GFR (African American) 97.4
[2018-09-27] MEDS: TIOTROPIUM BROMIDE 5 PUFF/90 MCG INH INH SCH (09:31)
[2018-09-27] MEDS: PANTOprazole 40 MG TAB PO SCH (09:32)
[2018-09-27] MEDS: METOPROLOL SUCC 25MG EXT REL TAB PO SCH (09:33)
[2018-09-27] MEDS: ESTROGENS, CONJUGATED 0.625 MG TAB PO SCH (09:34)
--- NOTE | 2018-09-27 10:53 | Cardiology Progress Note ---
Date of Service September 27, 2018 Assessment & Plan (1) Atrial flutter: Increase metoprolol succinate to 50 mg twice daily. Continue digoxin. Patient states that she had several small bowel movements with formed stools that had some visible blood, but no nico bleeding as she had noted at home pr ior to coming to the hospital. Cautiously initiate Coumadin, 2.5 mg now and then daily. Need to monitor INR closely given code ministration of antibiotics. Plan for 4 weeks of therapeutic anticoagulation and then elective direct-current cardioversion. (2) S/P aortic valve replacement: History of moderate prosthetic valve stenosis. Gradients are stable on her most recent outpatient echocardiogram as well as her LVEF. She follows with [facility] valve clinic, and it has been previously recommended that when intervention is deemed to be necessary, should be best served by transcatheter aortic valve replacement approach to avoid repeat sternotomy. 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 Resection April 2017 at [facility]. (4) Elevated LFTs: May be due to significant tricuspid valve regurgitation with passive liver congestion. Continue observation. Tricuspid valve surgical intervention would be very high risk given her past cardiac surgery and would be very difficult to approach given her past sternal surgeries. Subjective Chief complaint: follow abdominal discomfort, tachycardia Subjective: Patient feels well from a heart rate and breathing standpoint. She notes vague abdominal discomfort again today. On telemetry, she remains in atrial flutter, her ventricular rate is improved to the 95 bpm range at rest today. She does increase to over 100 with minimal activity. But overall her heart rate is trended toward improvement compared to her initial admission. Physical Exam Physical Exam: General: no acute distress and stated age Eyes: conjunctiva are pink and non-injected, sclera clear Neck: normal jugular venous pulse, no hepatojugular reflux Chest: s/p sternotomy, status post resection of chondrosarcoma with right costal cartilage and anterior chest wall reconstruction with mesh and pectoral flap Lungs: clear to auscultation and percussion Cardiac Exam: - regular heart sounds, no murmurs, rubs, or gallops, no jugular venous distention Abdomen: abdomen soft, nondistended, vague tenderness Extremities: no edema and no cyanosis Neuro:awake, coversant, follows commands, no focal motor deficits Psych: appropriate affect and insight. Results & Data Vital Signs (Past 12 Hours) Vital Signs Temp Pulse Pulse Pulse Resp BP BP 09/27/18 08:27 85 09/27/18 07:19 36.7 C 88 18 136/88 09/27/18 03:29 36.6 C 100 H 17 129/84 Pulse Ox 09/27/18 08:27 09/27/18 07:19 95 09/27/18 03:29 93 Laboratory Results Cardiac Enzymes 09/26/18 Range/Units 11:15 Troponin I < 0.015 (0-0.045) ng/ml Coagulation 09/27/18 Range/Units 06:03 PT 13.3 H (9.0-12.0) Seconds CBC 09/27/18 Range/Units 06:03 WBC 7.56 (4.8-10.8) K/uL RBC 4.23 (4.2-5.4) M/uL Hgb 12.3 (12.0-16.0) g/dL Hct 37.2 (37-47) % Plt Count 162 (130-400) K/uL Comprehensive Metabolic Panel 09/27/18 Range/Units 06:03 Sodium 135 L (136-145) mmol/L Potassium 4.0 (3.5-5.1) mmol/L Chloride 104 (98-107) mmol/L Carbon Dioxide 28 (21-32) mmol/L BUN 11 (7-18) mg/dl Creatinine 0.66 (0.6-1.2) mg/dl Glucose 106 H (70-99) mg/dl Calcium 8.3 L (8.5-10.1) mg/dl Intake and Output 09/26/18 09/27/18 09/27/18 22:59 06:59 14:59 Intake Total 760 / 1590 350 / 1590 100 / 100 Balance 760 / 1590 350 / 1590 100 / 100 Intake: IV 300 / 700 200 / 700 100 / 100 CIPRO 400 mg In 200 ml @ 100 200 / 400 200 / 400 mls/hr IV Q12H SALLY Rx#:[id number] FLAGYL 500 mg In 100 ml @ 100 100 / 300 100 / 100 mls/hr IV Q8 SALLY Rx#:[id number] Oral 460 / 890 150 / 890 Other: Weight 68.3 kg
--- NOTE | 2018-09-27 11:37 | Discharge Summary ---
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 Patient states his been having constipation for the past month. Also having intermittent nausea. States past several days has been having lower abdominal pain which increased last night. Patient states his been taking MiraLAX and last night had multiple episodes of loose stools. She states his been noticing some red blood in stool. States past several days has been having mostly liquid diet as to not worsen abdominal pain. Reports decreased abdominal discomfort after having BM. Patient with recent history of rapid atrial flutter. Saw Dr. Jordan with cardiology on 09/15/2018 and had HR of 128, Toprol 12.5 mg twice daily and Coumadin was started. Patient had INR of 1.0 yesterday and reports did not get further dosing instructions and has been taking 2 mg daily. She states continues with palpitations and her HR at home has been 120. Has been feeling chilled. No known fevers. Denies diaphoresis,vomiting, LARKIN, dizziness, syncope, vision changes, neck pain, CP, SOB, orthopnea, palpitations, cough, sore throat, choking, otalgia, rhinorrhea, paresthesias, weakness, extremity weakness, extremity edema, rashes, urinary symptoms. History echo 09/21/2018 (unable to view for report, EF: 40%) History colonoscopy 2014. No active colitis History MRI brain 2017: Meningioma unchanged from MRI 2016. Admission Exam Per Admitting Provider General: no acute distress, WDWN Head: normocephalic, atraumatic Eyes: PERRL, EOM's intact, conjunctiva non-injected, anicteric ENT: normal inspection external ears, nose, mucous membranes moist Neck: supple, trachea midline Lungs: clear, no respiratory distress, no wheezing/rhonchi/rales Chest: healed surgical scar, no rashes noted CV: irregularly irregular, no pretibial edema Abd: normal BS, soft, +tender to RLQ, LLQ without rebound or guarding Ext: no cyanosis, no calf tenderness Neuro: A&O x 3, no focal deficits noted, normal affect Skin: warm, dry Principal Diagnosis Aflutter c RVR Gastritis GI Bleed Internal Hemorrhoids Crohn's/UC Hypothyroid Discharge Data Allergies Allergy/AdvReac Type Severity Reaction Status Date / Time Penicillins Allergy Mild HIVES Verified 09/23/18 08:18 Consultations 09/23/18 13:15 Consult Cardiology Routine Consult Gastroenterology Routine Procedures Performed Operation Date: 09/24/18 08:10 Actual Procedures p EGD Biopsy Cytology - Gauri Baker s Colonoscopy Biopsy Cytology - Fuentesbessy Baker Ordered Studies 09/23/18 08:10 CT abd pelvis IV con only Stat 09/24/18 13:48 MR MRCP Routine Hospital Course (1) Abdominal pain: (2) Ileitis: (3) GI bleed: Pt reports hx ulcerative colitis. Out patient GI record states hx Crohn's. Hx diverticulitis s/p colon resection Pt presented to ER with c/o lower abdominal pain for past several days. Reports hx constipation and intermittent nausea x 1 month, taking Miralax. Reports loose stools last night. Also reports some red blood in bowel movements. In ER pt afebrile, P: 129, R: 18, BP: 109/68, 94% on RA. WBC: 7.6, H/H: 14/42, INR: 1.2, Total bili: 2.0, AST: 114, ALT: 153, Alk Phos: 366, INR: 1.2 (on Coumadin). Reported heme positive stool. CT ABD/PELVIS: Findings are consistent with a nonspecific ileitis. This is likely on an infectious or inflammatory basis and clinical correlation will be required. The liver is enlarged, markedly heterogeneous in attenuation, and there is no dularity of the hepatic surface contour suggesting changes of cirrhosis. This represents a significant change from the 2010 examination. There is postoperative change from sigmoid colon resection with colocolonic anastomosis. No bowel obstruction is identified. -stool culture, c-diff neg -cipro, flagyl -continue mesalamine -Type and cross and hold -IVF -clear liquid diet -GI consult, EGD-Gastritis, Colonoscopy C Diverticulosis, +Internal Hemorrhoids -monitor CBC, CMP (4) Atrial flutter: 09/15/18 Cardiology started Toprol 12.5mg BID and Coumadin for atrial flutter with HR 128. Had recent echo outpatient (unable to view full report, EF: 40%) Patient had INR of 1.0 yesterday and reports did not get further dosing instructions and has been taking 2 mg daily. She states continues with palpitations and her HR at home has been 120. In ER P: 120's. Pt did not have her am medications. Was given 2L NSS, Lopressor 10mg IV total. No significant electrolyte abnormality, TSH: 1.5 INR: 1.2 Dr Garza on case (5) Elevated LFTs: Total bili: 2.0, AST: 114, ALT: 153, Alk Phos: 366, INR: 1.2 (on Coumadin). 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 Had recent echo outpatient (unable to view full report, EF: 40%) Patient had INR of 1.0 yesterday and reports did not get further dosing instructions and has been taking 2 mg daily. She states continues with palpitations and her HR at home has been 120. 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 Appetite is Normal, No F/C/CP Physical Exam Gen-AAO x 3, NAD, Afebrile Head-NCAT, EOMI, PERRLA, Anicteric Sclera, No Posterior Pharyngeal Erythema Neck-Supple, No JVD, No Thyromegaly, No Masses, No LAD, No Bruits Lungs-Clear to Auscultation Bilaterally, No Rales, No Rhonchi, No Wheezing, No Crepitus Chest-No S4, +S1, +S2, No S3, No Murmurs, No Rubs, No Gallops, No Ectopy Abdomen-Soft, Bowel Sounds Present, Non Tender, Non Distended, No Hepatomegaly, No Splenomegaly, No Palpable Masses, No Rebound, No Rigidity, No Guarding Musculoskeletal-Full Range of Motion Bilaterally, No CVAT Extremities-No Cyanosis, No Clubbing, + Edema, LLE wrapped Nuero-Cranial Nerves II-XII grossly intact, Motor WNL, DTRs WNL, Strength WNL, Non Focal Psych-Normal Mood Total Time Total Time Spent Total Time Spent (In Minutes): 45 mins Discharge Plan Discharge Items Patient Disposition: Home - Self-Care Reason For Visit: A FLUTTER ABDOMINAL PAIN Discharge Diagnosis: Aflutter c RVR Gastritis GI Bleed Internal Hemorrhoids Crohn's/UC Hypothyroid Condition: Good Discharge Goals: Improve disease control Activity: Resume your previous activity Lifting: Gradually increase as tolerated Bathing: No limitations Sexual Activity: When tolerated Exercise/Sports: Gradually increase as tolerated Driving/Machine Use: No limitations Weightbearing: Left weightbearing and Right weightbearing Non-emergency contact: Primary Care Provider, Customer Development Representative and [employer] Follow-up/Referrals: Gabe Garza DO [Customer Development Representative] - (7-10 days or first opening) Malcolm Stephenson MD [Physician] - (First opening for biopsy result) Al Santos DO [Primary Care Provider] - 10/05/18 11:00 am Diet: Regular Addtl Provider Instructions: Monitor INR for Warfarin dosing Warfarin therapeutic x 4 weeks then DCCV by Cards Prescriptions: New metoprolol succinate 50 mg Tablet Extended Release 24 Hr 50 mg PO BID Qty: 60 RF: 0 digoxin 125 mcg Tablet 0.125 mg PO DAILY@1600 Qty: 30 RF: 0 Mag-Al Plus Extra Strength 400-400-40 mg/5 mL Suspension 15 ml PO Q6H PRN (Reason: Indegestion/Abd Pain) Qty: 250 RF: 0 Continued cyanocobalamin (vitamin B-12) [Vitamin B-12] 1,000 mcg Tablet 1,000 mcg PO DAILY RF: 0 tramadol 50 mg Tablet 50 mg PO DAILY PRN (Reason: Pain) RF: 0 acetaminophen [Tylenol Arthritis Pain] 650 mg Tablet Extended Release 2 tab PO Q8H PRN (Reason: Pain) RF: 0 gabapentin 100 mg Capsule 100 mg PO TID PRN (Reason: Pain) RF: 0 vitamin E 400 unit Capsule 800 unit PO DAILY RF: 0 mesalamine [Lialda] 1.2 gram Tablet,Delayed Release (Dr/Ec) 3.6 g PO QAM RF: 0 levothyroxine 112 mcg Capsule 112 mcg PO DAILY RF: 0 Spiriva with HandiHaler 18 mcg Capsule, W/Inhalation Device 1 cap INHALATION DAILY RF: 0 atorvastatin 40 mg tablet 40 mg PO HS RF: 0 warfarin 2 mg tablet 2 mg PO UD RF: 0 Premarin 0.625 mg tablet 0.625 mg PO DAILY RF: 0 metoprolol succinate 25 mg tablet extended release 24 hr 12.5 mg PO BID RF: 0 aspirin [Aspir-81] 81 mg Tablet,Delayed Release (Dr/Ec) 81 mg PO DAILY RF: 0 albuterol sulfate 90 mcg/actuation Hfa Aerosol Inhaler 2 puff INHALATION Q6H PRN (Reason: shortness of breath) RF: 0 Stand-Alone Forms: [facility], Work/School Release (Inpt) Discharge Orders: Discharge Order (Routine); Ordered 09/27/18 Ordered By: Piter Sanchez Admission Data Admit Date/Time: 09/23/18 11:02 Attending Provider: Piter Sanchez Admit Provider: Chris Haider Primary Care Provider: Al Santos Other Providers: Gabe Garza ; Malcolm Stephenson Service: Telemetry Medical Other Interventions: Discharge Summary Assessment (RN) Last Done: 09/24/18 14:09
[2018-09-27] MEDS ORDERED: DIGOXIN 0.125 MG TAB PO SCH (16:00)
[2018-09-27] MEDS ORDERED: METOPROLOL SUCC 50MG EXT REL TAB PO SCH (21:00)
[2018-09-28 15:21] LABS: Anti Nuclear Antibody Screen POSITIVE (NEGATIVE); Smooth Muscle Antibody 1:20 TITER
[2018-09-28] MEDS ORDERED: WARFARIN SOD 2.5 MG TAB PO SCH ×2 (16:00)
[2018-09-30 14:40] LABS: ANA Pattern HOMOGENEOUS
--- NOTE | 2018-10-04 08:37 | Coding Query ---
CODING QUERY To promote full compliance with coding requirements relating to patient care, provider participation is requested in all cases of label coder uncertainty. Please assist us with the question(s) below: Coding Question(s): There is GI Bleeding documented as well as Internal Hemorrhoids, Gastritis, possible infectious Enteritis, and History of Crohn's Disease and Ulcerative Colitis and Diverticulosis. The Communication Report by Dr. Baker on 09/24 documents, "The upper endoscopy was notable for mild gastritis and no evidence of esophageal varices. The colonoscopy was notable for no obvious active disease, liver there was evidence of prior scarring from her Crohn's disease. We did obtain biopsies from the stomach and colon. The colonoscopy also revealed several diverticuli in the region of her colonic anastomosis. Finally internal hemorrhoids were noted which were the likely culprit of her hematochezia prior to admission.". Please, clarify below, in your clinical opinion, regarding the most likely source(s) of the GI Bleeding. ( XX ) Internal Hemorrhoids ( ) Gastritis ( ) Diverticulosis ( ) Enteritis, likely infectious ( ) Crohn's Disease ( ) Ulcerative Colitis ( ) Other: Please Specify ( ) Unknown Physician's Response(s): Thank you Miriam Landa Principal Diagnosis: "that condition established after study, to be chiefly responsible for occasioning the admission of the patient to the hospital for care." Co-Existing Principal Diagnosis: "when two or more diagnoses equally meet the criteria for principal diagnosis as determined by the circumstances of admission, diagnostic work up, and/or therapy provided, and the Alphabetic Index, Tabular List, or another coding guideline does not provide sequencing direction, any one of the diagnoses may be sequenced first." "When the physician has documented what appears to be a current diagnosis in the body of the record, but has not included the diagnosis in the final diagnostic statement, the physician should be asked whether the diagnosis should be added." (Source Coding Clinic 2 QTR90. p3-4) JOELLE
== END 2018-09-27 14:09 | disposition home or self-care (01) | DRG 378 ==
LOC: ED 07:45 → 2W 11:02

== ENCOUNTER 2021-10-23 14:06 | Inpatient (IN) ==
--- NOTE | 2021-10-23 14:26 | Emergency Department Note ---
Impression & Plan Dizziness, Acute hyponatremia, Headache, Weakness, History of meningioma ED Provider Note Provider: Sean Boo MD DATE OF SERVICE: 10/23/2021 CHIEF COMPLAINT: Dizzy/weak HISTORY OF PRESENT ILLNESS: Patient is a 81-year-old female history of chondrosarcoma status postresection, meningioma status postresection, pulmonary impairment, atrial fibrillation on digoxin, Crohn's disease, COPD, pulmonary hypertension, spinal stenosis, hypothyroidism referred from the outpatient clinic today due to a low sodium level. Patient reports over the last several weeks she has been having increased dizziness. She states there is some worsening with movement. Denies any falls or trauma likely. But reports a bit of a right posterior head pain/headache. Denies numbness or tingling in the extremities. Patient states she eats some bedside Room states it is really not that much. She denies nausea vomiting or diarrhea. Denies abdominal complaints of pain. Denies chest pain. Evidently outpatient blood work reported a low sodium level of 125 and thus was referred here. Review of the note from the medical records at [facility] indicate the patient's daughter was also commenting on the patient was having some worsening short-term memory issues. Some question is that she is taking her thyroid medicine appropriately and if she was taking a diuretic or metoprolol as directed by cardiology. REVIEW OF SYSTEMS: A total of 10 review of systems was obtained and negative except as stated above in the HPI. PAST MEDICAL HISTORY: As noted above MEDICATIONS: Reviewed the listed home medication list. SOCIAL HISTORY: Lives at home by herself PHYSICAL EXAM: GENERAL: alert and oriented in no acute distress on stretcher Head: normocephalic and atraumatic EYES: No injection, discharge or icterus. PERRL, EOMI. NECK: Trachea midline. Supple. ENT: Mucous membranes pink and moist. LUNGS: Airway patent. No retractions. Breath sounds clear with good air entry bilaterally. HEART: Regular rate and rhythm. No chest wall tenderness ABDOMEN: Soft and non-tender, without guarding or rebound. SKIN: Acyanotic, warm, dry, without rashes EXTREMITIES: Without swelling, tenderness or deformity NEUROLOGICAL: No focal deficits. No aphasia. No facial droop or slurred speech. Normal strength and tone in the extremities. Sensation to gross touch normal. Ambulatory. EK bpm normal sinus rhythm. No PVC or PAC. No acute ST segment elevation noted with nonspecific lateral ST changes. QTc 439. In comparison to previous from May 12, 2019 does not appear to be in a flutter at this time with some similar lateral ST changes. CONTINUOUS CARDIAC MONITORING: was ordered and showed a heart rate of 70s-80s bpm in normal sinus rhythm Patient's laboratory studies and imaging reviewed. Differential includes Infection, dehydration, metabolic abnormality, hypo/hyperglycemia, electrolyte disturbance, anemia, hypoxia, cardiac sources, intracerebral event, toxicologic, neurologic, as well as other pathologies. IMPRESSION/MEDICAL DECISION MAKING: Reviewed denies any medical records and laboratory studies. Repeat labs were sent here. CT of the head was obtained as well as EKG. CT head per radiology without acute abnormality noted. Digoxin level was sent. Lower suspicion for acute CVA. Question some component of hyponatremia leading to her symptoms. Unsure if the medications may be contributing as she is taking some furosemide although again it is questionable if she should be on this to begin with. She reports a bit of a headache but does not appear meningitic here. Patient states she has had some headaches chronically related to her prior meningioma. Had gamma knife for this. Benign abdomen. EKG is reassuring. Serum and urine osms were ordered. Laboratory studies confirm hyponatremia of 124. Some component of this may be more related to her history of resected meningioma and/or developing dementia. In the acute setting however believe further monitoring with hyponatremia is indicated. Given a very small 250 cc normal saline bolus. DIAGNOSIS: Hyponatremia, dizziness, weakness, atrial fibrillation, headache, history of meningioma DISPOSITION: Hospitalist will evaluate Patient was agreeable with this plan. Past Med/Surg History Medical History Atrial flutter Cardiac murmur Carotid artery occlusion Cervical facet joint syndrome Cervical spondylosis Cervicogenic headache Chondrosarcoma (Unknown) S/P resection COPD (chronic obstructive pulmonary disease) Crohn disease Crohns disease Diverticulitis Former smoker History of thyroidectomy (Unknown) History of total hysterectomy (Unknown) "2001 " Hyperlipidemia Hypothyroidism Intracranial meningioma (Unknown) Meningioma Osteoarthritis Spinal stenosis Stenosis of aorta Ulcerative colitis Valvular heart disease Surgical History History of appendectomy History of thoracic surgery S/P aortic valve replacement S/P colon resection Family History Mother Coronary heart disease Father Coronary heart disease Social History Smoking Status: Former smoker Second Hand Exposure: No; Hx Alcohol Use: Yes Alcohol type: beer and wine Alcohol type Comment: 3 drinks/day, 5 days a week Hx Substance Use: No Preferred Language: Comoran Communication Ability: Effective Lightning Rod Installer Required: No Beliefs That Will Affect Care: None Current Living Situation: Alone Feels Safe at Home: Yes Assistive Devices: None Allergies Allergies Allergy/AdvReac Type Severity Reaction Status Date / Time Penicillins Allergy Intermediate HIVES Verified 10/23/21 15:30 Home Meds Home Medications Medication Instructions Recorded Confirmed acetaminophen 650 mg 2 tab PO BID PRN 04/12/18 10/23/21 tablet,extended release (Tylenol Arthritis Pain) gabapentin 100 mg capsule 100 mg PO TID 04/12/18 10/23/21 levothyroxine 112 mcg capsule 112 mcg PO DAILY 04/12/18 10/23/21 albuterol sulfate 90 mcg/actuation 2 puff INHALATION Q6H PRN 09/23/18 10/23/21 aerosol inhaler conjugated estrogens 0.625 mg 0.625 mg PO DAILY 09/23/18 10/23/21 tablet (Premarin) naproxen 500 mg tablet 500 mg PO BIDM 10/23/21 10/23/21 Previous Rx's Medication Instructions Recorded digoxin 125 mcg (0.125 mg) tablet 0.125 mg PO DAILY@1600 #30 tab 09/27/18 Results & Data (ED) Vital Signs Vital Signs - 24 hr 10/23/21 14:09 10/23/21 14:23 Temperature 36.6 C Temperature Source Temporal Artery Scan Pulse Rate 86 Respiratory Rate 18 20 Respiratory Effort / Characteristics Non-Labored Respiratory Depth Normal Respiratory Pattern Regular Blood Pressure 137/85 Blood Pressure Mean 102 Pulse Oximetry 96 98 Oxygen Delivery Method Room Air Room Air Sepsis Recent Fever Within 48 Hours No Sepsis New/Unexplained Change in Mental Status No Sepsis Action Taken by Nursing No Action Required Laboratory Data Result diagrams: 10/23/21 14:23 10/23/21 14:23 Lab Results 10/23/21 10/23/21 Range/Units 14:23 14:23 WBC 7.04 (4.8-10.8) K/uL RBC 4.05 L (4.2-5.4) M/uL Hgb 14.0 (12.0-16.0) g/dL Hct 40.2 (37-47) % MCV 99.3 (80-100) fL MCH 34.6 H (25-34) pg MCHC 34.8 (32-36) g/dL RDW Std Deviation 46.3 (36.4-46.3) fL RDW Coeff of Brendon 12.7 (11.5-14.5) % Plt Count 159 (130-400) K/uL MPV 9.1 (7.4-10.4) fL Immature Gran % (Auto) 0.3 % Neut % (Auto) 67.4 % Lymph % (Auto) 21.4 % Upton % (Auto) 9.5 % Eos % (Auto) 1.1 % Baso % (Auto) 0.3 % Neut # (Auto) 4.74 (1.4-6.5) K/uL Lymph # (Auto) 1.51 (1.2-3.4) K/uL Upton # (Auto) 0.67 H (0.11-0.59) K/uL Eos # (Auto) 0.08 (0-0.5) K/uL Baso # (Auto) 0.02 (0-0.2) K/uL Immature Gran # (Auto) 0.02 (0.00-0.02) K/uL Sodium 124 L (136-145) mmol/L Potassium 4.0 (3.5-5.1) mmol/L Chloride 89 L (98-107) mmol/L Carbon Dioxide 27 (21-32) mmol/L Anion Gap 8 (3-11) BUN 19 (6-23) mg/dl Creatinine 0.57 L (0.6-1.2) mg/dl Est Cr Clr Drug Dosing Not Reportable Est GFR ( Amer) 100.1 ml/min Est GFR (Non-Af Amer) 86.3 ml/min BUN/Creatinine Ratio 33.3 H (10-20) Glucose 92 (70-99(Fasting)) mg/dl Calcium 9.4 (8.5-10.1) mg/dl Magnesium 1.9 (1.7-2.4) mg/dl Total Bilirubin 1.3 H (0.2-1.0) mg/dl AST 21 (13-39) U/L ALT 10 (7-52) U/L Alkaline Phosphatase 64 (34-104) U/L Total Protein 7.4 (6.0-8.3) gm/dl Albumin 4.3 (3.4-5.0) gm/dl Globulin 3.1 (2.5-4.0) gm/dl Albumin/Globulin Ratio 1.4 (0.9-2) Imaging Data Radiologist's Impression: Chest X-Ray 10/23/21 14:15 XR chest 1V portable HISTORY: Dizziness. weakness COMPARISON: Chest 05/12/2019. FINDINGS: The cardiac silhouette remains enlarged. There are poststernotomy changes and an aortic valve prosthesis again noted. There is a linear scarlike density at the left lung base. No pleural effusions. No pneumothorax. No evidence for pulmonary edema. No new focal lung consolidations to suggest pneumonia. IMPRESSION: No significant change compared to the prior study. No acute process. ACT 112: Negative or not required by law. Electronically signed by: Curtis Vieyra M.D. 10/23/2021 2:[address] 10/23/21 14:[address] DOSE: 537.48 mGy.cm HISTORY: dizzy TECHNIQUE: Multiaxial CT images of the head were performed without the use of intravenous contrast. Automated exposure control was utilized for this study. A dose lowering technique was utilized adhering to the principles of ALARA. Comparison: Head CT 09/11/2008. Findings: The paranasal sinuses and mastoid air cells are clear. The calvarium and skull base are intact. There is no mass, hematoma, midline shift, acute infarct. White matter hypodensity is nonspecific but suggestive of microvascular ischemic change. The ventricles and sulci demonstrate mild age-related involutional changes. Impression: No acute intracranial abnormality. ACT 112: Negative or not required by law. Electronically signed by: Curtis Vieyra M.D. 10/23/2021 3:28 PM Discharge Plan Visit Data Chief Complaint: Referred by Doctor Stated Complaint: GETTING READY TO HAVE A SEIZURE ED Provider: Sean Boo Discharge Problem: Dizziness, Acute hyponatremia, Headache, Weakness, History of meningioma Patient Disposition: Being Evaluated by Hospitalist Forms Stand Alone Forms: [facility] Prescriptions Prescriptions: No Action acetaminophen [Tylenol Arthritis Pain] 650 mg Tablet Extended Release 2 tab PO BID PRN (Reason: Pain) RF: 0 gabapentin 100 mg Capsule 100 mg PO TID RF: 0 levothyroxine 112 mcg Capsule 112 mcg PO DAILY RF: 0 Premarin 0.625 mg tablet 0.625 mg PO DAILY RF: 0 albuterol sulfate 90 mcg/actuation Hfa Aerosol Inhaler 2 puff INHALATION Q6H PRN (Reason: shortness of breath) RF: 0 digoxin 125 mcg Tablet 0.125 mg PO DAILY@1600 Qty: 30 RF: 0 naproxen 500 mg Tablet 500 mg PO BIDM RF: 0 Referrals Referrals: Al Santos DO [Primary Care Provider] - Discharge Problem: Headache Qualifiers: Headache type: unspecified Headache chronicity pattern: chronic headache Intractability: intractable Qualified Code(s): R51.9 - Headache, unspecified
[2021-10-23 14:42] LABS: Basophils # (auto) 0.02 K/uL (0-0.2); Basophils % (auto) 0.3 %; Eosinophils # (auto) 0.08 K/uL (0-0.5); Eosinophils % (auto) 1.1 %; Hematocrit (blood only) 40.2 % (37-47); Immature Granulocytes # (auto) 0.02 K/uL (0.00-0.02); Immature Granulocytes % (auto) 0.3 %; Lymphocytes # (auto) 1.51 K/uL (1.2-3.4); Lymphocytes % (auto) 21.4 %; Mean Corpuscular Hemoglobin 34.6 pg (25-34); Mean Corpuscular Hgb Conc 34.8 g/dL (32-36); Mean Corpuscular Volume 99.3 fL (80-100); Mean Platelet Volume 9.1 fL (7.4-10.4); Monocytes # (auto) 0.67 K/uL (0.11-0.59); Monocytes % (auto) 9.5 %; Neutrophils # (auto) 4.74 K/uL (1.4-6.5); Neutrophils % (auto) 67.4 %; Platelet Count 159 K/uL (130-400); RDW Coefficient of Variation 12.7 % (11.5-14.5); RDW Standard Deviation 46.3 fL (36.4-46.3); Red Blood Count 4.05 M/uL (4.2-5.4); White Blood Count 7.04 K/uL (4.8-10.8)
--- NOTE | 2021-10-23 14:50 | XRay Report ---
XR chest 1V portable HISTORY: Dizziness. weakness COMPARISON: Chest 05/12/2019. FINDINGS: The cardiac silhouette remains enlarged. There are poststernotomy changes and an aortic kemar ve prosthesis again noted. There is a linear scarlike density at the left lung base. No pleural effus ions. No pneumothorax. No evidence for pulmonary edema. No new focal lung consolidations to suggest p neumonia. IMPRESSION: No significant change compared to the prior study. No acute process. ACT 112: Negative or not required by law. Electronically signed by: Curtis Vieyra M.D. 10/23/2021 2:49 PM
[2021-10-23 15:00] LABS: Anion Gap 8 (3-11); BUN Creatinine Ratio 33.3 (10-20); Blood Urea Nitrogen 19 mg/dl (6-23); Carbon Dioxide 27 mmol/L (21-32); Chloride 89 mmol/L (98-107); Est GFR (African American) 100.1 ml/min; Est GFR (Non-African American) 86.3 ml/min; Glucose 92 mg/dl (70-99(Fasting)); Sodium 124 mmol/L (136-145)
[2021-10-23 15:01] LABS: Alanine Aminotransferase 10 U/L (7-52); Albumin Globulin Ratio 1.4 (0.9-2); Albumin Level 4.3 gm/dl (3.4-5.0); Alkaline Phosphatase 64 U/L (34-104); Aspartate Aminotransferase 21 U/L (13-39); Bilirubin,Total 1.3 mg/dl (0.2-1.0); Calcium 9.4 mg/dl (8.5-10.1); Globulin 3.1 gm/dl (2.5-4.0); Magnesium 1.9 mg/dl (1.7-2.4); Total Protein 7.4 gm/dl (6.0-8.3)
[2021-10-23] MEDS ORDERED: SODIUM CHLORIDE 0.9% 1000ML 250 ML IV ONE (15:23)
--- NOTE | 2021-10-23 15:29 | CT Scan Report ---
HEAD CT NONCONTRAST CT DOSE: 537.48 mGy.cm HISTORY: dizzy TECHNIQUE: Multiaxial CT images of the head were performed without the use of intravenous contrast. A utomated exposure control was utilized for this study. A dose lowering technique was utilized adheri ng to the principles of ALARA. Comparison: Head CT 09/11/2008. Findings: The paranasal sinuses and mastoid air cells are clear. The calvarium and skull base are int act. There is no mass, hematoma, midline shift, acute infarct. White matter hypodensity is nonspecifi c but suggestive of microvascular ischemic change. The ventricles and sulci demonstrate mild age-rela kali involutional changes. Impression: No acute intracranial abnormality. ACT 112: Negative or not required by law. Electronically signed by: Curtis Vieyra M.D. 10/23/2021 3:28 PM
[2021-10-23 16:08] LABS: Troponin I High Sensitivity 14.8 pg/ml (0-14)
--- NOTE | 2021-10-23 16:44 | History & Physical Report ---
Date of Service October 23, 2021 Assessment & Plan (1) Hyponatremia: (2) Dizziness: (3) Cervicogenic headache: (4) History of meningioma: (5) Crohn disease: (6) Hypothyroidism: (7) S/P aortic valve replacement: (8) COPD (chronic obstructive pulmonary disease): (9) History of atrial flutter: Plan: Hyponatremia- unknown chronicity, possibly chronic. Prior sodium levels normal. Currently sodium 124. Possibly from her diuretic, per PCP and cardio note- she was to hold her diuretic but she continues to take it. Volume status looks hypo to euvolemic. LFTs normal, TSH normal, Cr normal. - Sodium level 124, serum osm 265. Check urine sodium, urine osm, uric acid, cortisol am. - Will give gentle IVF and monitor sodium q6hr. Goal correction of upto 130-132 over the next 24 hrs. If does not improve or worsen, consider nephro consult Dizziness- unclear cause. Symptoms ongoing for couple years but worse over the past couple days. No vertigo. No focal neurologic deficits. CT head unremarkable. States she is to get cervical neck injection this Thursday at [facility]. Will check orthostatics, monitor on tele and give gentle fluids. Check B12, Vit D level. Consider meclizine prn if very symptomatic. Hypothyroidism- TSH normal. Continue synthroid COPD- not in exacerbation. Not taking any inhalers currently PAF- currently in sinus rhythm. Not on anticoag per cardiology. Not taking metoprolol. On digoxin, will continue. Dig level not elevated. Chron's disease- not taking lialda anymore Short term memory impairment- ongoing issue. With her Crohn's, will check B12 level if absorption issues and replete if low. Elevated trop- minimally elevated. Will trend for completeness. No CP or EKG changes. H/o meningioma status post resection H/o chondrosarcoma s/p resection H/o cervicogenic headache and neck pain- gets [facility] at [place]- last received in Feb 2021 and due this Thursday. H/o AVR with bioprosthetic valve H/o right sided CHF but last echo was unremarkable and recommended holding off her diuretics by cardiology DVT ppx- sc lovenox Dispo- Medsurg on Tele Full code but states her sternum was removed and she is not to get chest compressions Updated son-in-law at bedside and answered all the questions History of Present Illness Chief Complaint: Sent for hyponatremia, dizziness Primary Care Provider: Al Santos DO 81 year old female with h/o meningioma s/p resection, chondrosarcoma s/p resection, AVR, PAF, COPD, Crohn's disease, hypothyroidism, cervicogenic headache, short term memory impairment who presented to the ED from PCP office for hyponatremia. Patient was seen by her new PCP today and noted to have sodium of 125 in the lab and sent to ED for evaluation. Patient states she has chronic headache and dizziness for past few years but worse over the past couple days. Denies any tinnitus, diplopia, vertigo, numbness, weakness, tingling. Still able to drive and do her ADLs per patient even with dizziness. Denies any fever, chills, nausea, vomiting, diarrhea, dysuria. Denies any chest pain or shortness of breath. States hydrating herself. States she was on 3 waterpills and now down to 1. In the ED, she was afebrile and hemodynamically stable. Given small fluid bolus in the ED. Allergies Allergy/AdvReac Type Severity Reaction Status Date / Time Penicillins Allergy Intermediate HIVES Verified 10/23/21 15:30 Home Medications Medication Instructions Recorded Confirmed Type acetaminophen 650 mg 2 tab PO BID PRN 04/12/18 10/23/21 History tablet,extended release (Tylenol Arthritis Pain) gabapentin 100 mg capsule 100 mg PO TID 04/12/18 10/23/21 History levothyroxine 112 mcg capsule 112 mcg PO DAILY 04/12/18 10/23/21 History albuterol sulfate 90 mcg/actuation 2 puff INHALATION Q6H PRN 09/23/18 10/23/21 History aerosol inhaler conjugated estrogens 0.625 mg 0.625 mg PO DAILY 09/23/18 10/23/21 History tablet (Premarin) digoxin 125 mcg (0.125 mg) tablet 0.125 mg PO DAILY@1600 #30 tab 09/27/18 10/23/21 Rx naproxen 500 mg tablet 500 mg PO BIDM 10/23/21 10/23/21 History Past Med/Surg History Medical History Atrial flutter Cardiac murmur Carotid artery occlusion Cervical facet joint syndrome Cervical spondylosis Cervicogenic headache Chondrosarcoma (Unknown) S/P resection COPD (chronic obstructive pulmonary disease) Crohn disease Crohns disease Diverticulitis Former smoker History of thyroidectomy (Unknown) History of total hysterectomy (Unknown) "2001 " Hyperlipidemia Hypothyroidism Intracranial meningioma (Unknown) Meningioma Osteoarthritis Spinal stenosis Stenosis of aorta Ulcerative colitis Valvular heart disease Surgical History History of appendectomy History of thoracic surgery S/P aortic valve replacement S/P colon resection Family History Mother Coronary heart disease Father Coronary heart disease Social History Smoking Status: Former smoker Second Hand Exposure: No; Hx Alcohol Use: Yes Alcohol type: beer and wine Alcohol type Comment: 3 drinks/day, 5 days a week Hx Substance Use: No Preferred Language: Chadian Communication Ability: Effective 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 Required: No Beliefs That Will Affect Care: None Current Living Situation: Alone Feels Safe at Home: Yes Assistive Devices: None Review of Systems Review of Systems: All systems reviewed & are unremarkable except as noted in Subjective Physical Exam Physical Exam: General: Lying comfortably in bed, not in distress, on room air HEENT: EOMI, LINDA, MMM Chest: Clear breath sounds bilaterally, no wheezes or crackles CVS: Regular rate and rhythm, normal heart sounds, no murmur Abdomen: Soft, non tender, not distended, normal bowel sounds Neuro: Awake, alert, oriented, conversing well, non focal Extremities: No cyanosis, clubbing or edema Results & Data Results & Data ([facility]) Vital Signs (Past 12 Hours) Vital Signs Temp Pulse Pulse Resp BP BP Pulse Ox 10/23/21 16:07 84 18 120/68 98 10/23/21 14:23 20 98 10/23/21 14:09 36.6 C 86 18 137/85 96 Laboratory Results Short CBC 10/23/21 10/23/21 Range/Units 14:23 14:23 WBC 7.04 (4.8-10.8) K/uL Hgb 14.0 (12.0-16.0) g/dL Hct 40.2 (37-47) % Plt Count 159 (130-400) K/uL Sodium 124 L (136-145) mmol/L Chloride 89 L (98-107) mmol/L BMP 10/23/21 14:23 Sodium 124 L Potassium 4.0 Chloride 89 L Carbon Dioxide 27 BUN 19 Creatinine 0.57 L Glucose 92 Calcium 9.4 Liver Function 10/23/21 Range/Units 14:23 Total Bilirubin 1.3 H (0.2-1.0) mg/dl AST 21 (13-39) U/L ALT 10 (7-52) U/L Alkaline Phosphatase 64 (34-104) U/L Albumin 4.3 (3.4-5.0) gm/dl Diagnostic Findings Chest X-Ray 10/23/21 14:15 XR chest 1V portable HISTORY: Dizziness. weakness COMPARISON: Chest 05/12/2019. FINDINGS: The cardiac silhouette remains enlarged. There are poststernotomy changes and an aortic valve prosthesis again noted. There is a linear scarlike density at the left lung base. No pleural effusions. No pneumothorax. No evidence for pulmonary edema. No new focal lung consolidations to suggest pneumonia. IMPRESSION: No significant change compared to the prior study. No acute process. ACT 112: Negative or not required by law. Electronically signed by: Curtis Vieyra M.D. 10/23/2021 2:[address] 10/23/21 14:[address] DOSE: 537.48 mGy.cm HISTORY: dizzy TECHNIQUE: Multiaxial CT images of the head were performed without the use of intravenous contrast. Automated exposure control was utilized for this study. A dose lowering technique was utilized adhering to the principles of ALARA. Comparison: Head CT 09/11/2008. Findings: The paranasal sinuses and mastoid air cells are clear. The calvarium and skull base are intact. There is no mass, hematoma, midline shift, acute infarct. White matter hypodensity is nonspecific but suggestive of microvascular ischemic change. The ventricles and sulci demonstrate mild age-related involutional changes. Impression: No acute intracranial abnormality. ACT 112: Negative or not required by law. Electronically signed by: Curtis Vieyra M.D. 10/23/2021 3:28 PM
[2021-10-23 18:02] LABS: Vitamin D, 25 Hydrox 15.4 ng/ml (30-100)
[2021-10-23 19:12] LABS: Appearance Urine Clear (Clear); Bacteria Urine Automated Negative (Negative); Bilirubin Urine Negative (Negative); Blood Urine Trace (Negative); Cast Urine Automated 0 /lpf (0-5); Color Urine Yellow; Glucose Urine UA Negative (Negative); Ketones Urine Negative (Negative); Leukocyte Esterase Urine Trace (Negative); Nitrite Urine Negative (Negative); Protein Urine Negative (Negative); RBC Urine Automated 0-4 /hpf (0-4); Specific Gravity Urine 1.006 (1.000-1.030); Urobilinogen Urine Negative (Negative); pH Urine 6.5 (4.5-7.5)
[2021-10-23] MEDS ORDERED: ALBUTEROL HFA 8 GM INHALER INH PRN (19:37)
[2021-10-23] MEDS: SODIUM CHLORIDE 0.9% 500 ML IV SCH (20:15)
[2021-10-23] MEDS: Patient's HEIGHT &/or WEIGHT Needed SCH (20:32)
[2021-10-23] MEDS: ACETAMINOPHEN 325 MG TAB PO PRN (20:36)
[2021-10-23 20:57] LABS: Anion Gap 9 (3-11); BUN Creatinine Ratio 30.2 (10-20); Blood Urea Nitrogen 16 mg/dl (6-23); Calcium 9.6 mg/dl (8.5-10.1); Carbon Dioxide 27 mmol/L (21-32); Chloride 91 mmol/L (98-107); Creatinine Clr Calc Pharmacy 74.8 ml/min; Est GFR (African American) 102.5 ml/min; Est GFR (Non-African American) 88.4 ml/min; Glucose 114 mg/dl (70-99(Fasting)); Sodium 127 mmol/L (136-145); Troponin I High Sensitivity 16.7 pg/ml (0-14)
[2021-10-23] MEDS: GABAPENTIN 100 MG CAP PO SCH (21:54)
[2021-10-24] MEDS: SODIUM CHLORIDE 0.9% 500 ML IV SCH ×2 (00:07→06:30)
[2021-10-24] MEDS ORDERED: MELATONIN 3 MG TAB PO PRN (00:21)
[2021-10-24] MEDS ORDERED: Nursing to Pharmacy Communication SCH (00:30)
[2021-10-24 01:35] LABS: Potassium 3.4 mmol/L (3.5-5.1)
[2021-10-24 01:36] LABS: BUN Creatinine Ratio 30.4 (10-20); Calcium 8.9 mg/dl (8.5-10.1); Creatinine Clr Calc Pharmacy 70.4 ml/min; Est GFR (African American) 100.6 ml/min; Est GFR (Non-African American) 86.8 ml/min
[2021-10-24 01:37] LABS: Troponin I High Sensitivity 18.9 pg/ml (0-14)
[2021-10-24] MEDS: LEVOTHYROXINE SODIUM 112 MCG TABLET PO SCH (06:09)
[2021-10-24] MEDS: ENOXAPARIN INJ 40 MG/0.4 ML SYR SQ SCH (07:22)
[2021-10-24] MEDS: GABAPENTIN 100 MG CAP PO SCH ×3 (07:23→21:06)
[2021-10-24] MEDS: ACETAMINOPHEN 325 MG TAB PO PRN (07:24)
[2021-10-24] MEDS: Patient's HEIGHT &/or WEIGHT Needed SCH ×2 (08:14→08:15)
[2021-10-24 09:08] LABS: BUN Creatinine Ratio 23.5 (10-20); Calcium 9.1 mg/dl (8.5-10.1); Creatinine Clr Calc Pharmacy 77.3 ml/min; Est GFR (African American) 103.8 ml/min; Est GFR (Non-African American) 89.5 ml/min; Potassium 3.6 mmol/L (3.5-5.1)
[2021-10-24] MEDS: CHOLECALCIFEROL 1,000 UNITS 25 MCG TAB PO SCH (11:02)
[2021-10-24 15:07] LABS: Calcium 9.1 mg/dl (8.5-10.1); Creatinine Clr Calc Pharmacy 49.3 ml/min; Est GFR (African American) 79.6 ml/min; Est GFR (Non-African American) 68.7 ml/min; Potassium 4.2 mmol/L (3.5-5.1)
[2021-10-24] MEDS ORDERED: DIGOXIN 0.125 MG TAB PO SCH (16:00)
--- NOTE | 2021-10-24 16:02 | Electrocardiogram Report ---
Test Reason : Blood Pressure : / mmHG Vent. Rate : 082 BPM Atrial Rate : 082 BPM P-R Int : 186 ms QRS Dur : 090 ms QT Int : 376 ms P-R-T Axes : 072 -15 093 degrees QTc Int : 439 ms Normal sinus rhythm Left atrial enlargement Chronic Nonspecific ST and T wave abnormality Abnormal ECG When compared with ECG of 12-MAY-2019 22:58, Sinus rhythm has replaced Atrial flutter Confirmed by Omega Rodriguez ([id number]) on 10/24/2021 4:02:17 PM Referred By: Confirmed By:Omega Rodriguez
--- NOTE | 2021-10-24 17:17 | Hospitalist Progress Note ---
Date of Service October 24, 2021 Assessment & Plan (1) Hyponatremia: (2) Dizziness: (3) Cervicogenic headache: (4) History of meningioma: (5) Crohn disease: (6) Hypothyroidism: (7) S/P aortic valve replacement: (8) COPD (chronic obstructive pulmonary disease): (9) History of atrial flutter: Plan: Hypovolemic Hyponatremia Unknown chronicity Likely due to diuretics Diuretics were recently discontinued by PCP Normal TSH, a.m. cortisol Sodium 124>>132 Sodium levels improved with IV fluids Hold IV fluids for now Monitor Sodium levels Will consider D5W if needed Chronic Dizziness Unclear cause -CT Head:No acute intracranial abnormality. 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 as per records Plan for cervical neck injection by pain management at [place] Vitamin D deficiency Started on Vit D supplements Hypothyroidism Noncompliant with levothyroxine as per family Normal TSH Continue levothyroxine COPD Not in exacerbation Currently not on meds Paroxysmal atrial fibrillation Currently in sinus Not on anticoagulation On digoxin Chron's disease Not on meds Short term memory impairment ongoing issue Reorient frequently to minimize delirium 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 valve H/o right sided CHF PCP DCed Diuretics recently Advised to follow-up with cardiology upon discharge No signs of volume overload DVT px SQ Lovenox Code Status Full code but states her sternum was removed and she is not to get chest compressions as per admitting team Admission and Anticipated Discharge Date Admission Date: October 23, 2021 Subjective Patient is seen and examined at bedside States having chronic dizziness, neck pain Sodium levels improved to 132 today Poor appetite as per family Denies any chest pain, shortness of breath, nausea, abdominal pain Discussed with patient's family over the phone Review of Systems Review of Systems: All systems reviewed & are unremarkable except as noted in Subjective Physical Exam Physical Exam: Physical Exam: Vitals signs as noted above General Appearance:Thin, frail, Elderly, no apparent distress Head: normocephalic, Atraumatic Eyes: normal inspection, EOMI Neck: supple, Trachea midline Respiratory/Chest: Normal breath sounds, CTA, No accessory muscle use Cardiovascular: S1, S2, + murmur Abdomen/GI:Soft, Non tender, Bowel sounds present Extremities/Musculoskeletal:normal inspection, no edema Neurologic/Psych:AAOX3, grossly no focal neurological deficits Skin: normal color, warm Results & Data Results & Data ([facility]) Vital Signs (Past 12 Hours) Vital Signs Temp Pulse Pulse Resp BP Pulse Ox 10/24/21 16:11 36.3 C L 74 18 105/61 96 10/24/21 15:21 76 10/24/21 12:03 36.8 C 72 18 105/66 96 10/24/21 08:09 36.7 C 69 18 124/61 96 Laboratory Results [facility] 10/23/21 10/23/21 10/24/21 20:10 21:34 00:56 Sodium 127 L 131 L Potassium TNP 3.6 3.4 L Chloride 91 L 96 L Carbon Dioxide 27 25 BUN 16 17 Creatinine 0.53 L 0.56 L Glucose 114 H 92 Calcium 9.6 8.9 10/24/21 10/24/21 07:59 14:22 Sodium 132 L 132 L Potassium 3.6 4.2 Chloride 97 L 98 Carbon Dioxide 30 30 BUN 12 16 Creatinine 0.51 L 0.80 Glucose 87 86 Calcium 9.1 9.1 Urine 10/23/21 Range/Units 18:35 Urine Color Yellow Urine Appearance Clear (Clear) Urine pH 6.5 (4.5-7.5) Ur Specific [place] 1.006 (1.000-1.030) Urine Protein Negative (Negative) Urine Glucose (UA) Negative (Negative)
[2021-10-24] MEDS ORDERED: POLYETHYLENE (MIRALAX) 17 GM PACK PO PRN (19:46)
[2021-10-24] MEDS: DOCUSATE SODIUM/SENNA 50/8.6MG TAB PO SCH (21:06)
[2021-10-25] MEDS: LEVOTHYROXINE SODIUM 112 MCG TABLET PO SCH (06:25)
[2021-10-25 07:30] LABS: Hematocrit (blood only) 39.7 % (37-47); Hemoglobin 13.6 g/dL (12.0-16.0); Mean Corpuscular Hemoglobin 35.3 pg (25-34); Mean Corpuscular Hgb Conc 34.3 g/dL (32-36); Mean Corpuscular Volume 103.1 fL (80-100); Mean Platelet Volume 9.1 fL (7.4-10.4); Platelet Count 152 K/uL (130-400); RDW Coefficient of Variation 12.9 % (11.5-14.5); RDW Standard Deviation 48.9 fL (36.4-46.3); Red Blood Count 3.85 M/uL (4.2-5.4); White Blood Count 6.18 K/uL (4.8-10.8)
[2021-10-25 07:55] LABS: BUN Creatinine Ratio 29.7 (10-20); Calcium 9.4 mg/dl (8.5-10.1); Est GFR (African American) 96.3 ml/min; Est GFR (Non-African American) 83.1 ml/min; Potassium 4.5 mmol/L (3.5-5.1)
[2021-10-25] MEDS: ENOXAPARIN INJ 40 MG/0.4 ML SYR SQ SCH (09:14)
[2021-10-25] MEDS: CHOLECALCIFEROL 1,000 UNITS 25 MCG TAB PO SCH (09:14)
[2021-10-25] MEDS: GABAPENTIN 100 MG CAP PO SCH ×2 (09:14→13:49)
[2021-10-25] MEDS: DOCUSATE SODIUM/SENNA 50/8.6MG TAB PO SCH (09:26)
[2021-10-25] MEDS: ACETAMINOPHEN 325 MG TAB PO PRN (09:32)
--- NOTE | 2021-10-25 13:03 | Hospitalist Progress Note ---
Date of Service October 25, 2021 Assessment & Plan (1) Hyponatremia: (2) Dizziness: (3) Cervicogenic headache: (4) History of meningioma: (5) Crohn disease: (6) Hypothyroidism: (7) S/P aortic valve replacement: (8) COPD (chronic obstructive pulmonary disease): (9) History of atrial flutter: Plan: Hypovolemic Hyponatremia Unknown chronicity Likely due to diuretics Diuretics were recently discontinued by PCP Normal TSH, a.m. cortisol Sodium 124>>132>>133 Sodium levels improved with IV fluids Monitor Sodium levels Diuretics discontinued Chronic Dizziness Unclear cause -CT Head:No acute intracranial abnormality. 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 as per records Plan for cervical neck injection by pain management at [place] Vitamin D deficiency Started on Vit D supplements Hypothyroidism Noncompliant with levothyroxine as per family Normal TSH Continue levothyroxine COPD Not in exacerbation Currently not on meds Paroxysmal atrial fibrillation Currently in sinus Not on anticoagulation On digoxin Chron's disease Not on meds Short term memory impairment ongoing issue Reorient frequently to minimize delirium 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 valve H/o right sided CHF PCP DCed Diuretics recently Advised to follow-up with cardiology upon discharge No signs of volume overload DVT px SQ Lovenox Code Status Full code but states her sternum was removed and she is not to get chest compressions as per admitting team Admission and Anticipated Discharge Date Admission Date: October 23, 2021 Subjective Patient is seen and examined at bedside Feels well today No new complaints Persistent chronic dizziness, neck pain Sodium levels improved to 133 today Denies any chest pain, shortness of breath, nausea, abdominal pain Eager to get discharged Review of Systems Review of Systems: All systems reviewed & are unremarkable except as noted in Subjective Physical Exam Physical Exam: Physical Exam: Vitals signs as noted above General Appearance:Thin, frail, Elderly, no apparent distress Head: normocephalic, Atraumatic Eyes: normal inspection, EOMI Neck: supple, Trachea midline Respiratory/Chest: Normal breath sounds, CTA, No accessory muscle use Cardiovascular: S1, S2, + murmur Abdomen/GI:Soft, Non tender, Bowel sounds present Extremities/Musculoskeletal:normal inspection, no edema Neurologic/Psych:AAOX3, grossly no focal neurological deficits Skin: normal color, warm Results & Data Results & Data ([facility]) Vital Signs (Past 12 Hours) Vital Signs Temp Pulse Resp BP Pulse Ox 10/25/21 10:56 36.7 C 78 18 100/61 95 10/25/21 07:00 36.3 C L 71 18 113/72 93 10/25/21 03:20 36.5 C 67 18 116/69 94 Laboratory Results Short CBC 10/25/21 Range/Units 06:28 WBC 6.18 (4.8-10.8) K/uL Hgb 13.6 (12.0-16.0) g/dL Hct 39.7 (37-47) % Plt Count 152 (130-400) K/uL BMP 10/24/21 10/25/21 14:22 06:28 Sodium 132 L 133 L Potassium 4.2 4.5 Chloride 98 99 Carbon Dioxide 30 31 BUN 16 19 Creatinine 0.80 0.64 Glucose 86 87 Calcium 9.1 9.4
--- NOTE | 2021-10-25 13:08 | Discharge Summary ---
Date of Service October 25, 2021 Admission HPI Per Admitting Provider 81 year old female with h/o meningioma s/p resection, chondrosarcoma s/p resection, AVR, PAF, COPD, Crohn's disease, hypothyroidism, cervicogenic headache, short term memory impairment who presented to the ED from PCP office for hyponatremia. Patient was seen by her new PCP today and noted to have sodium of 125 in the lab and sent to ED for evaluation. Patient states she has chronic headache and dizziness for past few years but worse over the past couple days. Denies any tinnitus, diplopia, vertigo, numbness, weakness, tingling. Still able to drive and do her ADLs per patient even with dizziness. Denies any fever, chills, nausea, vomiting, diarrhea, dysuria. Denies any chest pain or shortness of breath. States hydrating herself. States she was on 3 waterpills and now down to 1. In the ED, she was afebrile and hemodynamically stable. Given small fluid bolus in the ED. Admission Exam Per Admitting Provider Physical Exam Physical Exam: General: Lying comfortably in bed, not in distress, on room air HEENT: EOMI, LINDA, MMM Chest: Clear breath sounds bilaterally, no wheezes or crackles CVS: Regular rate and rhythm, normal heart sounds, no murmur Abdomen: Soft, non tender, not distended, normal bowel sounds Neuro: Awake, alert, oriented, conversing well, non focal Extremities: No cyanosis, clubbing or edema Principal Diagnosis Hyponatremia Chronic dizziness Vitamin D deficiency Discharge Data Allergies Allergy/AdvReac Type Severity Reaction Status Date / Time Penicillins Allergy Intermediate HIVES Verified 10/23/21 15:30 Consultations 10/23/21 15:44 ED Decision to Admit Stat Ordered Studies 10/23/21 14:15 CT head/brain wo con Stat Hospital Course (1) Hyponatremia: (2) Dizziness: (3) Cervicogenic headache: (4) History of meningioma: (5) Crohn disease: (6) Hypothyroidism: (7) S/P aortic valve replacement: (8) COPD (chronic obstructive pulmonary disease): (9) History of atrial flutter: Hypovolemic Hyponatremia Unknown chronicity Likely due to diuretics Diuretics were recently discontinued by PCP Normal TSH, a.m. cortisol Sodium 124>>132>>133 Sodium levels improved with IV fluids Monitor Sodium levels Diuretics discontinued Chronic Dizziness Unclear cause -CT Head:No acute intracranial abnormality. 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 as per records Plan for cervical neck injection by pain management at [place] Vitamin D deficiency Started on Vit D supplements Hypothyroidism Noncompliant with levothyroxine as per family Normal TSH Continue levothyroxine COPD Not in exacerbation Currently not on meds Paroxysmal atrial fibrillation Currently in sinus Not on anticoagulation On digoxin Chron's disease Not on meds Short term memory impairment ongoing issue Reorient frequently to minimize delirium 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 valve H/o right sided CHF PCP DCed Diuretics recently Advised to follow-up with cardiology upon discharge No signs of volume overload DVT px SQ Lovenox Code Status Full code but states her sternum was removed and she is not to get chest compressions as per admitting team Total Time Total Time Spent Total Time Spent (In Minutes): 39 minutes Discharge Plan Discharge Items Patient Disposition: Home - Self-Care Reason For Visit: DIZZINESS, HYPONATREMIA Discharge Diagnosis: Hyponatremia Chronic dizziness Vitamin D deficiency Activity: Per Instructions section Exercise/Sports: Gradually increase as tolerated Non-emergency contact: Primary Care Provider Call non-emergency contact if: you have any medication questions, your symptoms worsen and your pain is concerning for you Follow-up/Referrals: Al Santos, DO [Primary Care Provider] - Diet: Regular Addtl Attending Provider Instructions: Follow-up with your primary care physician Dr. Santos in 1 week. Please call for appointment Follow-up with your retirement consultant in 2 to 3 weeks as advised. Seek immediate medical attention if your symptoms reoccur or worsen Please take all medications as instructed on discharge list below. Please call if you have any questions or problems. You can reach a [facility] hospitalist on duty at [facility] 24 hours a day by calling [phone] Pending Studies at Discharge: No Stand-Alone Forms: My [facility], Smoking Cessation Medications and DC Order Prescriptions: New cholecalciferol (vitamin D3) 25 mcg (1,000 unit) Capsule 1,000 unit PO QAM Qty: 30 RF: 0 Continued acetaminophen [Tylenol Arthritis Pain] 650 mg Tablet Extended Release 2 tab PO BID PRN (Reason: Pain) RF: 0 gabapentin 100 mg Capsule 100 mg PO TID RF: 0 levothyroxine 112 mcg Capsule 112 mcg PO DAILY RF: 0 Premarin 0.625 mg tablet 0.625 mg PO DAILY RF: 0 albuterol sulfate 90 mcg/actuation Hfa Aerosol Inhaler 2 puff INHALATION Q6H PRN (Reason: shortness of breath) RF: 0 digoxin 125 mcg Tablet 0.125 mg PO DAILY@1600 Qty: 30 RF: 0 naproxen 500 mg Tablet 500 mg PO BIDM RF: 0 Discharge Orders: Discharge Order (Routine); Ordered 10/25/21 Ordered By: Chris Haider Admission Data Admit Date/Time: 10/23/21 16:49 Attending Provider: Chris Haider Admit Provider: Jhonatan Bermudez Primary Care Provider: Al Santos Other Providers: Jhonatan Bermudez
== END 2021-10-25 14:10 | disposition home or self-care (01) | DRG 641 ==
LOC: ED 14:06 → SUATTDRO 16:49 → EDINP 16:49 → 2N 20:54

== ENCOUNTER 2021-12-04 08:50 | Observation (INO) ==
--- NOTE | 2021-12-04 09:08 | Emergency Department Note ---
Impression & Plan Chest pain, Abnormal ECG, Hyponatremia ED Provider Note NAME: KARTHIK TATE AGE: 81 SEX: F : 1940 ARRIVES VIA: Walk-In INFORMANT: Patient, ED PROVIDER(S): Isaias Schneider MD Chief Complaint: Chest pain HPI: Patient presents at the [facility] primary care due to concern for EKG changes with a history of chest pressure. Patient states that the chest pressure is been ongoing approximately 2 weeks is worsening exertionally with associated shortness of breath. The patient denies any cough fevers or chills. No leg pain or Swelling. No prior history of heart attack or PEs or DVTs. Patient does not take aspirin on a regular basis. The patient did have part of her sternum removed approximately 10 to 12 years ago. The patient states that the chest pressure is centralized and nonradiating. Patient denies any nausea vomiting or diaphoresis. ROS: See HPI for pertinent positives and negatives. A total of 10 systems were reviewed and otherwise negative. Past medical history: See below Surgical history: See below Social history: See below Physical Exam: GENERAL: NAD, wearing a mask, non-toxic. EYE EXAM: Normal conjunctiva. PERRL, no anisocoria and EOM's grossly intact w/o pain. NECK: Supple, no nuchal rigidity, no adenopathy, non-tender. No signs of meningismus. Chest: Right side of the lower sternum absent. Well-healed. LUNGS: Clear to auscultation. Normal chest wall mechanics. HEART: NSR, no MRG. ABDOMEN: Abdomen soft, non-tender, normo-active bowel sounds, no masses, no rebound or guarding. BACK: No CVA TTP. SKIN: No rashes and no bruising. UPPER EXTREMITIES: Upper extremities are grossly normal. LOWER EXTREMITIES: Grossly normal, no edema. Negative Homans' sign bilaterally NEURO EXAM: A&O x3, cranial nerves II-XII grossly intact, normal speech, moves all 4 extremities on command w/o issue. Differential diagnoses: Cardiac ischemia, aortic dissection, pulmonary embolism, pneumothorax, pneumonia, pericarditis, myocarditis, esophageal rupture, GERD, cholecystitis, pancreatitis, musculoskeletal, as well as other pathologies. Course: Patient was seen and evaluated the bedside. Full history physical exam was performed. EKG interpreted by me Normal sinus rhythm, rate of 62, normal intervals, normal axis, depressions anteriorly. Possible slight changes from comparison completed November 12 Repeat EKG interpreted by me Normal sinus rhythm, rate 61, normal intervals, normal axis, depressions inferiorly. Repeat posterior EKG interpreted by me Normal sinus rhythm, rate of 62, normal intervals, inferior depressions noted, T wave version in V2 with slight depression in V3. Posterior V45 and 6 with no obvious elevations Imaging Studies: See Below Cardiac monitoring: An order was placed for continuous cardiac monitoring. The monitor shows a rate of 65 with sinus rhythm. MDM: Patient did present due to concern for atypical chest pain with symptoms. EKG was obtained and does show some slight depressions in the anterior leads with associated slight depression in lead II. From comparison EKG the patient may have slight changes from before. The patient was ordered aspirin and nitro and I did ask for a posterior EKG to be completed. I did send EKGs per [employer] text messaging to interventional cardiology Dr. Kumar who did review them. He does agree that there are some changes and did notify [facility] cardiology and they will present to evaluate the patient the bedside. The patient was given a dose of nitro blood pressure was 90s over 50s with no significant change in her chest pain. Patient was ordered IV fluids. The patient is awake alert mentating well. Patient has normal white counts with normal hemoglobin. Platelet count is unremarkable. Mild hyponatremia. The patient's initial troponin was positive. Patient has had mildly chronic elevations in the past. Heparin deferred to cardiology at this time. I did speak and convey the recommendations per cardiology at this time to Zina Tipton PA-C and the patient was admitted by Dr. Bermudez. Patient's blood pressure did improve. Ritu Mccormick PA-C did evaluate the patient and ordered a stat echocardiogram did review the EKGs and case with Dr. Fontenot. They will continue to follow. Past Med/Surg History Medical History Atrial flutter Cardiac murmur Carotid artery occlusion Cervical facet joint syndrome Cervical spondylosis Cervicogenic headache Chondrosarcoma (Unknown) S/P resection COPD (chronic obstructive pulmonary disease) Crohn disease Crohns disease Diverticulitis Former smoker History of thyroidectomy (Unknown) History of total hysterectomy (Unknown) "2001 " Hyperlipidemia Hypothyroidism Intracranial meningioma (Unknown) Meningioma Osteoarthritis Spinal stenosis Stenosis of aorta Ulcerative colitis Valvular heart disease Surgical History History of appendectomy History of thoracic surgery S/P aortic valve replacement S/P colon resection Family History Mother Coronary heart disease Father Coronary heart disease Social History Smoking Status: Former smoker Second Hand Exposure: No; Hx Alcohol Use: Yes Alcohol type: beer Alcohol type Comment: 2 reagan lights a day Hx Substance Use: No Preferred Language: Kosovan Communication Ability: Effective Store Assistant Required: No Beliefs That Will Affect Care: None Current Living Situation: Alone Current Living Situation Comment: Independent, still drives Feels Safe at Home: Yes Assistive Devices: Glasses Allergies Allergies Allergy/AdvReac Type Severity Reaction Status Date / Time Penicillins Allergy Intermediate HIVES Verified 11/12/21 22:54 Home Meds Home Medications Medication Instructions Recorded Confirmed acetaminophen 650 mg 2 tab PO BID PRN Pain 04/12/18 12/04/21 tablet,extended release (Tylenol Arthritis Pain) levothyroxine 112 mcg capsule 112 mcg PO DAILY 04/12/18 12/04/21 albuterol sulfate 90 mcg/actuation 2 puff inhalation Q4H PRN 09/23/18 12/04/21 aerosol inhaler shortness of breath naproxen 500 mg tablet 500 mg PO BIDM PRN Pain 10/23/21 12/04/21 famotidine 20 mg tablet 20 mg PO DAILY 11/12/21 12/04/21 metoprolol succinate 25 mg 12.5 mg PO DAILY 11/12/21 12/04/21 tablet,extended release 24 hr umeclidinium 62.5 mcg-vilanterol 1 inh inhalation QAM 11/12/21 12/04/21 25 mcg/actuation powdr for inhalation (Anoro Ellipta) Oxygen Home 12/04/21 12/04/21 Previous Rx's Medication Instructions Recorded digoxin 125 mcg (0.125 mg) tablet 0.125 mg PO DAILY@1600 #30 tabs 09/27/18 Results & Data (ED) Vital Signs Vital Signs - 24 hr 12/04/21 08:59 12/04/21 10:06 12/04/21 11:15 Temperature 36.7 C Temperature Source Temporal Artery Scan Pulse Rate 64 Pulse Rate [Radial] 64 Pulse Rhythm [Radial] Regular Pulse Strength [Radial] Normal Respiratory Rate 18 17 Respiratory Effort / Characteristics Non-Labored Respiratory Depth Normal Respiratory Pattern Regular Blood Pressure 115/57 L Blood Pressure [Left Arm] 79/62 L Blood Pressure Mean 76 Blood Pressure Mean [Left Arm] 67 Blood Pressure Position [Left Arm] Sitting Pulse Oximetry 97 97 Oxygen Delivery Method Room Air Room Air Room Air Sepsis Recent Fever Within 48 Hours No Sepsis New/Unexplained Change in Mental Status No Sepsis Action Taken by Nursing No Action Required Home Medications Current Medication List: was personally reviewed by me Laboratory Data Attestation: I reviewed the patient's lab results. Result diagrams: 12/04/21 09:40 12/04/21 09:40 Lab Results 12/04/21 12/04/21 12/04/21 Range/Units 09:40 09:40 09:40 WBC 6.87 (4.8-10.8) K/ul RBC 3.64 L (3.93-5.22) M/uL Hgb 12.1 (12.0-16.0) g/dl Hct 35.9 (34.1-44.9) % MCV 98.6 (80.0-100.0) fL MCH 33.2 (25.0-34.0) pg MCHC 33.7 (32.0-36.0) g/dL RDW Std Deviation 44.2 (36.4-46.3) fL RDW Coeff of Brendon 12.1 (11.5-14.5) % Plt Count 152 (130-400) K/uL MPV 8.6 L (9.4-12.3) fL Immature Gran % (Auto) 0.4 % Neut % (Auto) 60.3 % Lymph % (Auto) 23.4 % Sharp % (Auto) 12.2 % Eos % (Auto) 2.8 % Baso % (Auto) 0.9 % Neut # (Auto) 4.14 (1.4-6.5) K/uL Lymph # (Auto) 1.61 (1.2-3.4) K/uL Sharp # (Auto) 0.84 H (0.24-0.82) K/uL Eos # (Auto) 0.19 (0-0.50) K/uL Baso # (Auto) 0.06 (0-0.2) K/uL Immature Gran # (Auto) 0.03 H (0.00-0.02) K/uL PT 11.7 (9.0-12.0) Seconds INR 1.1 (0.9-1.1) APTT 27.8 (21.0-31.0) Seconds PTT Ratio 1.0 Sodium 133 L (136-145) mmol/L Potassium 4.3 (3.5-5.1) mmol/L Chloride 100 (98-107) mmol/L Carbon Dioxide 26 (21-32) mmol/L Anion Gap 7 (3-11) BUN 16 (6-23) mg/dl Creatinine 0.66 (0.6-1.2) mg/dl Est Cr Clr Drug Dosing 58.8 ml/min Est GFR ( Amer) 95.3 ml/min Est GFR (Non-Af Amer) 82.3 ml/min BUN/Creatinine Ratio 24.2 H (10-20) Glucose 93 (70-99(Fasting)) mg/dl Calcium 8.9 (8.5-10.1) mg/dl Total Bilirubin 1.0 (0.2-1.0) mg/dl AST 23 (13-39) U/L ALT 18 (7-52) U/L Alkaline Phosphatase 81 (34-104) U/L Troponin I High Sens 22.0 H (0-14) pg/ml Total Protein 6.5 (6.0-8.3) gm/dl Albumin 3.6 (3.4-5.0) gm/dl Globulin 2.9 (2.5-4.0) gm/dl Albumin/Globulin Ratio 1.2 (0.9-2) Lipase 32 (11-82) U/L SARS-CoV-2, RNA, NAAT (NEGATIVE) 12/04/21 Range/Units 11:09 WBC (4.8-10.8) K/ul RBC (3.93-5.22) M/uL Hgb (12.0-16.0) g/dl Hct (34.1-44.9) % MCV (80.0-100.0) fL MCH (25.0-34.0) pg MCHC (32.0-36.0) g/dL RDW Std Deviation (36.4-46.3) fL RDW Coeff of Brendon (11.5-14.5) % Plt Count (130-400) K/uL MPV (9.4-12.3) fL Immature Gran % (Auto) % Neut % (Auto) % Lymph % (Auto) % Sharp % (Auto) % Eos % (Auto) % Baso % (Auto) % Neut # (Auto) (1.4-6.5) K/uL Lymph # (Auto) (1.2-3.4) K/uL Sharp # (Auto) (0.24-0.82) K/uL Eos # (Auto) (0-0.50) K/uL Baso # (Auto) (0-0.2) K/uL Immature Gran # (Auto) (0.00-0.02) K/uL PT (9.0-12.0) Seconds INR (0.9-1.1) APTT (21.0-31.0) Seconds PTT Ratio Sodium (136-145) mmol/L Potassium (3.5-5.1) mmol/L Chloride (98-107) mmol/L Carbon Dioxide (21-32) mmol/L Anion Gap (3-11) BUN (6-23) mg/dl Creatinine (0.6-1.2) mg/dl Est Cr Clr Drug Dosing ml/min Est GFR ( Amer) ml/min Est GFR (Non-Af Amer) ml/min BUN/Creatinine Ratio (10-20) Glucose (70-99(Fasting)) mg/dl Calcium (8.5-10.1) mg/dl Total Bilirubin (0.2-1.0) mg/dl AST (13-39) U/L ALT (7-52) U/L Alkaline Phosphatase (34-104) U/L Troponin I High Sens (0-14) pg/ml Total Protein (6.0-8.3) gm/dl Albumin (3.4-5.0) gm/dl Globulin (2.5-4.0) gm/dl Albumin/Globulin Ratio (0.9-2) Lipase (11-82) U/L SARS-CoV-2, RNA, NAAT NEGATIVE (NEGATIVE) Administered Medications Nitroglycerin (Nitroglycerin Sl 0.4 Mg/Tab Tab) 0.4 mg SL UD PRN PRN Reason: Chest Pain Stop: 01/03/22 09:13 Last Admin: 12/04/21 09:50 Dose: 0.4 mg Documented By: ROMI Discontinued Medications Aspirin (Aspirin Chew 324 Mg) 324 mg PO NOW STA Stop: 12/04/21 09:15 Last Admin: 12/04/21 09:48 Dose: 324 mg Documented By: ROMI Furosemide (Furosemide Inj 20 Mg/2 Ml Vial) 20 mg IV ONE ONE Stop: 12/04/21 11:17 Last Admin: 12/04/21 11:45 Dose: Not Given Documented By: ROMI Furosemide (Furosemide 40 Mg/4 Ml Vial) Confirm Administered Dose 40 mg IV .STK- MED ONE Stop: 12/04/21 11:26 Last Admin: 12/04/21 11:45 Dose: 20 mg Documented By: ROMI Sodium Chloride (Nss 1000ml) 1,000 mls @ 999 mls/hr IV .Q1H1M ONE Stop: 12/04/21 10:49 Last Infusion: 12/04/21 11:14 Dose: 0 mls/hr Documented By: Admin: 12/04/21 10:04 Dose: 999 mls/hr Documented By: ROMI Ondansetron HCl (Ondansetron Inj 2 Mg/Ml 2 Ml Vial) 4 mg IV NOW STA Stop: 12/04/21 09:15 Last Admin: 12/04/21 11:40 Dose: Not Given Documented By: ROMI Imaging Data Radiologist's Impression: Chest X-Ray 12/04/21 09:14 SINGLE VIEW CHEST CLINICAL HISTORY: Atypical chest pain. FINDINGS: An AP, portable, upright chest radiograph is compared to study dated 10/23/2021. The patient is status post midline sternotomy and aortic valve surgery. The heart is enlarged noting atherosclerotic calcification of the th oracic aorta. The pulmonary vasculature is noncongested. Chronic interstitial thickening is similar to previous. Scarring/atelectasis is noted at the lung bases. No airspace consolidation or large pleural effusion is identified. No pneumothorax is seen. The skeletal structures are osteopenic. The bony thorax is grossly intact. IMPRESSION: Cardiomegaly with no acute cardiopulmonary abnormality identified. ACT 112: Negative or not required by law. Electronically signed by: Erasto Bhakta M.D. 12/04/2021 10:43 AM Discharge Plan Visit Data Chief Complaint: Referred by Doctor Stated Complaint: CHEST PRESSURE, [facility] CALLED ED Provider: Isaias Schneider Discharge Problem: Chest pain, Abnormal ECG, Hyponatremia Patient Disposition: Admitted As Inpatient Discharge Instructions Interventions: ED Discharge Assessment Last Done: 12/04/21 15:25
[2021-12-04] MEDS ORDERED: ONDANSETRON INJ 2 MG/ML 2 ML VIAL IV STA (09:14)
[2021-12-04] MEDS ORDERED: NITROGLYCERIN SL 0.4 MG/TAB TAB SL PRN (09:14)
[2021-12-04] MEDS ORDERED: ASPIRIN CHEW 324 MG PO STA (09:14)
[2021-12-04] MEDS ORDERED: SODIUM CHLORIDE 0.9% 1000ML 1,000 ML IV ONE (09:49)
[2021-12-04 09:52] LABS: Basophils # (auto) 0.06 K/uL (0-0.2); Basophils % (auto) 0.9 %; Eosinophils # (auto) 0.19 K/uL (0-0.50); Eosinophils % (auto) 2.8 %; Hematocrit (blood only) 35.9 % (34.1-44.9); Hemoglobin 12.1 g/dl (12.0-16.0); Immature Granulocytes # (auto) 0.03 K/uL (0.00-0.02); Immature Granulocytes % (auto) 0.4 %; Lymphocytes # (auto) 1.61 K/uL (1.2-3.4); Lymphocytes % (auto) 23.4 %; Mean Corpuscular Hemoglobin 33.2 pg (25.0-34.0); Mean Corpuscular Hgb Conc 33.7 g/dL (32.0-36.0); Mean Corpuscular Volume 98.6 fL (80.0-100.0); Mean Platelet Volume 8.6 fL (9.4-12.3); Monocytes # (auto) 0.84 K/uL (0.24-0.82); Monocytes % (auto) 12.2 %; Neutrophils # (auto) 4.14 K/uL (1.4-6.5); Neutrophils % (auto) 60.3 %; Platelet Count 152 K/uL (130-400); RDW Coefficient of Variation 12.1 % (11.5-14.5); RDW Standard Deviation 44.2 fL (36.4-46.3); Red Blood Count 3.64 M/uL (3.93-5.22); White Blood Count 6.87 K/ul (4.8-10.8)
[2021-12-04 10:06] LABS: INR 1.1 (0.9-1.1); Partial Thromboplastin Time 27.8 Seconds (21.0-31.0); Prothrombin Time 11.7 Seconds (9.0-12.0)
[2021-12-04 10:39] LABS: Albumin Globulin Ratio 1.2 (0.9-2); Albumin Level 3.6 gm/dl (3.4-5.0); BUN Creatinine Ratio 24.2 (10-20); Calcium 8.9 mg/dl (8.5-10.1); Creatinine Clr Calc Pharmacy 58.8 ml/min; Est GFR (African American) 95.3 ml/min; Est GFR (Non-African American) 82.3 ml/min; Globulin 2.9 gm/dl (2.5-4.0); Potassium 4.3 mmol/L (3.5-5.1); Total Protein 6.5 gm/dl (6.0-8.3)
--- NOTE | 2021-12-04 10:45 | XRay Report ---
SINGLE VIEW CHEST CLINICAL HISTORY: Atypical chest pain. FINDINGS: An AP, portable, upright chest radiograph is compared to study dated 10/23/2021. The patient is status post midline sternotomy and aortic valve surgery. The heart is enlarged noting atherosclero tic calcification of the thoracic aorta. The pulmonary vasculature is noncongested. Chronic interstit ial thickening is similar to previous. Scarring/atelectasis is noted at the lung bases. No airspace c onsolidation or large pleural effusion is identified. No pneumothorax is seen. The skeletal structure s are osteopenic. The bony thorax is grossly intact. IMPRESSION: Cardiomegaly with no acute cardiopulmonary abnormality identified. ACT 112: Negative or not required by law. Electronically signed by: Erasto Bhakta M.D. 12/04/2021 10:43 AM
[2021-12-04] MEDS ORDERED: FUROSEMIDE INJ 20 MG/2 ML VIAL IV ONE (11:16)
--- NOTE | 2021-12-04 11:24 | History & Physical Report ---
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 Atypical Chest Pain Abnormal ECG Acute on Chronic HFpEf due to valvular heart disease s/p bioprosthetic avr in 2009 admit to PCU cardiology consulted and has already evaluated patient, they feel ACS less likely and more related to valvular heart disease/CHF pt with CP off/on x 1 week with abnormal ekg in inferior/anterolateral leads 1 SL NTG with improvement of sx but pt became hypotensive and required NS bolus initial trop elevated, but consistent with prior trops Echo -preserved EF with worsening of bioprosthetic aortic stenosis compared to previous CXR with mild pulm vasc congestion Lasix 20mg IV x 1 given in ED pt currently off diuretics in OP setting continue metoprolol, dig, asa dig level, tsh, bnp ordered cycle trops Hematochezia pt reports bloody bms Last colonoscopy 09/2018 -revealed diffuse area of granular mucosa with evidence of scarring in the entire colon consistent with IBD and Crohn's previously had been on mesalamine but pt currently not taking mild lower abd discomfort but abd exam is benign, imaging not warranted at this time will consult our GI colleagues to determine if pt would benefit from resuming her mesalamine, appears it was stopped by pt not picking up prescription/refilling will trend h/h, obtain stool studies, hemocult stool obtain esr/crp consider CT a/p if sx worsen COPD prior tobacco abuse nocturnal hypoxemia no acute exac continue home inhalers 2L of O2 at HS Hypothyroidism continue levothyroxine DVT ppx: SCDS 2/2 to hematochezia PCP: Yahir Collado, pt poor historian, also poor grasp on meds, pt may need CM involvement to assist with meds at home or at the very least make sure she has updated medication list Conditional code: NO CPR due to prior sternum resection, ok with other measures Dispo: PCU under obs pt was seen and examined in collaboration with Dr. Bermudez, please see addendum History of Present Illness Chief Complaint: Chest pain x 1 week. 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 Pain is substernal and does not radiate. Pain comes and goes as far as severity. She describes it as, "something heavy on my chest." This occurs with rest. Activity does not necessarily make pain worse but she runs out of energy quick. She complains of dizziness which is off and on. She does not feel it is related to chest pressure. Over the past week the chest pressure is occurring more frequently. She does have associated SOB. Prior to the chest pressure started she is indepen dent with adls and iadls. She has hx of bioprosthetic avr but no hx of CAD or stents. She has +FH of heart problems in father, "he had a bad heart." She is unsure of specifics. She denies tobacco use and does use alcohol, 2 reagan lights a day. SHe has prior hx of smoking many years ago. She was seen by provider today who referred her to ED 2/2 to chest pain. Overall patient is a poor historian. She also reports having 2 bloody bowel movements, last night and this morning. Per cardiology note it is also reported that having frequent loose stools 3-4 times a day. Her medications were reconciled however she is unsure exactly what she is taking. She does have history of ulcerative colitis and previously had been on mesalamine, but she states she has been off for a few months. She also reports generalized lower abdominal pain. She denies any fever, chills, sweats, lightheadedness, syncope, orthopnea, PND, edema, nausea, vomiting, hematemesis, dysuria, increased urgency or frequency with urination and hematuria. Of significance patient recently hospitalized 10/23-10/25 secondary to hyponatremia. It was felt to be secondary to diuresis and her diuretics were discontinued. Allergies Allergy/AdvReac Type Severity Reaction Status Date / Time Penicillins Allergy Intermediate HIVES Verified 11/12/21 22:54 Home Medications Medication Instructions Recorded Confirmed Type acetaminophen 650 mg 2 tab PO BID PRN Pain 04/12/18 12/04/21 History tablet,extended release (Tylenol Arthritis Pain) levothyroxine 112 mcg capsule 112 mcg PO DAILY 04/12/18 12/04/21 History albuterol sulfate 90 mcg/actuation 2 puff inhalation Q4H PRN 09/23/18 12/04/21 History aerosol inhaler shortness of breath digoxin 125 mcg (0.125 mg) tablet 0.125 mg PO DAILY@1600 #30 tabs 09/27/18 12/04/21 Rx naproxen 500 mg tablet 500 mg PO BIDM PRN Pain 10/23/21 12/04/21 History famotidine 20 mg tablet 20 mg PO DAILY 11/12/21 12/04/21 History metoprolol succinate 25 mg 12.5 mg PO DAILY 11/12/21 12/04/21 History tablet,extended release 24 hr umeclidinium 62.5 mcg-vilanterol 1 inh inhalation QAM 11/12/21 12/04/21 History 25 mcg/actuation powdr for inhalation (Anoro Ellipta) Oxygen Home 12/04/21 12/04/21 History Past Med/Surg History Medical History Atrial flutter Cardiac murmur Carotid artery occlusion Cervical facet joint syndrome Cervical spondylosis Cervicogenic headache Chondrosarcoma (Unknown) S/P resection COPD (chronic obstructive pulmonary disease) Crohn disease Crohns disease Diverticulitis Former smoker History of thyroidectomy (Unknown) History of total hysterectomy (Unknown) "2001 " Hyperlipidemia Hypothyroidism Intracranial meningioma (Unknown) Meningioma Osteoarthritis Spinal stenosis Stenosis of aorta Ulcerative colitis Valvular heart disease Surgical History History of appendectomy History of thoracic surgery S/P aortic valve replacement S/P colon resection Family History Mother Coronary heart disease Father Coronary heart disease Social History (Updated 12/04/21 @ 11:22 by Zina Tipton PA-C) Smoking Status: Former smoker Second Hand Exposure: No; Hx Alcohol Use: Yes Alcohol type: beer Alcohol type Comment: 2 reagan lights a day Hx Substance Use: No Preferred Language: [place] Communication Ability: Effective Byproducts Pump Operator Required: No Beliefs That Will Affect Care: None Current Living Situation: Alone Current Living Situation Comment: Independent, still drives Feels Safe at Home: Yes Assistive Devices: Glasses Review of Systems Review of Systems: All systems reviewed & are unremarkable except as noted in HPI & below Physical Exam Physical Exam: Constitutional: Chronically ill appearing, F, vitals as above, NAD, sitting up in bed, answers questions appropriately Head: Normocephalic, Atraumatic Eyes: PERRL, conjunctivae normal, anicteric sclerae ENMT: external ear and nose normal, oropharynx normal Neck: trachea midline, no thyromegaly normal visual inspection Respiratory: normal respiratory effort, lungs clear to auscultation, no wheeze, rales, rhonchi. Normal insp/exp effort, no accessory muscle use Cardiovascular: RRR, 2/6 IGLESIA noted RUSB, no edema, evidence of sternal resection in psat, Vessels: + JVD or carotid bruit Chest: normal inspection of chest Abdomen: normal bowel sounds, soft, nontender, no hepatosplenomegaly Musculoskeletal: no cyanosis or clubbing, AROM x 4 Skin: no rashes, warm and dry normal turgor Neurologic: PERRL, EOMI, accommodation nl, no face palsy, no dysarthria CN's II-XI intact bilaterally and moves all extremities Psychiatric: A+Ox3 to basics, euthymic affect : deferred Results & Data Results & Data ([facility]) Vital Signs (Past 12 Hours) Vital Signs Temp Pulse Resp BP Pulse Ox O2 Del Method 12/04/21 10:06 Room Air 12/04/21 08:59 36.7 C 64 18 115/57 L 97 Room Air Diagnostic Findings Chest X-Ray 12/04/21 09:14 SINGLE VIEW CHEST CLINICAL HISTORY: Atypical chest pain. FINDINGS: An AP, portable, upright chest radiograph is compared to study dated 10/23/2021. The patient is status post midline sternotomy and aortic valve surgery. The heart is enlarged noting atherosclerotic calcification of the thoracic aorta. The pulmonary vasculature is noncongested. Chronic interstitial thickening is similar to previous. Scarring/atelectasis is noted at the lung bases. No airspace consolidation or large pleural effusion is identified. No pneumothorax is seen. The skeletal structures are osteopenic. The bony thorax is grossly intact. IMPRESSION: Cardiomegaly with no acute cardiopulmonary abnormality identified. ACT 112: Negative or not required by law. Electronically signed by: Erasto Bhakta M.D. 12/04/2021 10:43 AM Medications Administered Medication List Nitroglycerin (Nitroglycerin Sl 0.4 Mg/Tab Tab) 0.4 mg SL UD PRN PRN Reason: Chest Pain Stop: 01/03/22 09:13 Last Admin: 12/04/21 09:50 Dose: 0.4 mg Documented By: ROMI Discontinued Medications Aspirin (Aspirin Chew 324 Mg) 324 mg PO NOW STA Stop: 12/04/21 09:15 Last Admin: 12/04/21 09:48 Dose: 324 mg Documented By: ROMI Sodium Chloride (Nss 1000ml) 1,000 mls @ 999 mls/hr IV .Q1H1M ONE Stop: 12/04/21 10:49 Last Infusion: 12/04/21 11:14 Dose: 0 mls/hr Documented By: Admin: 12/04/21 10:04 Dose: 999 mls/hr Documented By: ROMI ECG Additional Comments: Initial EKG at [address] segment in V2 to V4 at 62 bpm Repeat EKG at [address] segment in lateral leads, 61 bpm, QTC 412 After reviewing prior EKGs appear similar if not improved COVID-19 Results Results COVID-19 Adm Lab Results: RBC 3.64 M/uL (3.93-5.22) L 12/04/21 WBC 6.87 K/ul (4.8-10.8) 12/04/21 Hgb 12.1 g/dl (12.0-16.0) 12/04/21 Hct 35.9 % (34.1-44.9) 12/04/21 Plt Count 152 K/uL (130-400) 12/04/21 Neutrophils (%) (Auto) 60.3 % 12/04/21 Lymphocytes (%) (Auto) 23.4 % 12/04/21 Monocytes # (Auto) 0.84 K/uL (0.24-0.82) H 12/04/21 Eosinophils # (Auto) 0.19 K/uL (0-0.50) 12/04/21 Immature Granulocyte % (Auto) 0.4 % 12/04/21 Neutrophils # (Auto) 4.14 K/uL (1.4-6.5) 12/04/21 Lymphocytes # (Auto) 1.61 K/uL (1.2-3.4) 12/04/21 Monocytes # (Auto) 0.84 K/uL (0.24-0.82) H 12/04/21 Eosinophils # (Auto) 0.19 K/uL (0-0.50) 12/04/21 Basophils # (Auto) 0.06 K/uL (0-0.2) 12/04/21 Immature Granulocyte # (Auto) 0.03 K/uL (0.00-0.02) H 12/04 Na 133 mmol/L (136-145) L 12/04/21 K 4.3 mmol/L (3.5-5.1) 12/04/21 Cl 100 mmol/L (98-107) 12/04/21 CO2 26 mmol/L (21-32) 12/04/21 Anion Gap 7 (3-11) 12/04/21 BUN 16 mg/dl (6-23) 12/04/21 Creatinine 0.66 mg/dl (0.6-1.2) 12/04/21 BUN/Creatinine Ratio 24.2 (10-20) H 12/04/21 Glucose Level 93 mg/dl (70-99(Fasting)) 12/04/21 Ca 8.9 mg/dl (8.5-10.1) 12/04/21 Total Bilirubin 1.0 mg/dl (0.2-1.0) 12/04/21 AST/SGOT 23 U/L (13-39) 12/04/21 ALT/SGPT 18 U/L (7-52) 12/04/21 Alkaline Phosphatase 81 U/L (34-104) 12/04/21 Total Protein 6.5 gm/dl (6.0-8.3) 12/04/21 Albumin 3.6 gm/dl (3.4-5.0) 12/04/21 Globulin 2.9 gm/dl (2.5-4.0) 12/04/21 Albumin/Globulin Ratio 1.2 (0.9-2) 12/04/21 CRP 3.63 mg/dl (0-0.5) H 12/04/21 PTT 27.8 Seconds (21.0-31.0) 12/04/21 INR 1.1 (0.9-1.1) 12/04/21 SARS-CoV-2, RNA, NAAT NEGATIVE (NEGATIVE) 12/04/21 Chest X-Ray 12/04/21 Code Status & VTE Plan Code Status Conditional Code due to prior hx of part of sternum being removed No CPR Ok for cardioversion, intubation Supervising Physician Co-Signing Physician Notes Patient was seen and examined at bedside with Zina Tipton PA-C. Chart reviewed. Case discussed with her and agree with the documentation above. In summary, this is a 81 year old female with h/o prosthetic AVR 1999, PAF off of anticoagulation (discontinued 02/[address] Jordan) non compliance to medications, h/o right sided CHF/moderate pulmonary HTN (non compliant to diuretics), IBD/US (ran out of mesalamine couple months ago and has not taken since), chondrosarcoma of sternum and chest s/p resection 2016, meningioma s/p resection by gamma knife 2014, who presented to the ED from cardiology office for evaluation of chest pressure and SUAREZ. Patient is a poor historian. States worsening chest pressure and SUAREZ for the past week, central chest pressure with no radiation and was seen by cardio in the office today and sent to ED. Also, states she had bloody BM last night and this morning along with lower abdominal pain. Quit smoking 25-30 years ago. In the ED, she was afebrile, hemodynamically stable. No chest pressure or dyspnea during our evaluation. Cardiology was present during our encounter. She is unsure of what medications she took this morning- states she might have taken her toprol. She was given 1 dose of SL nitro with improvement of symptoms but became hypotensive to 79/62 and required NS bolus. During our encounter, vitals stable. Lying comfortably in bed, AAO, chest clear, heart sounds normal, abdomen soft, no LE edema. Labs- Hb 12.1, WBC 6.87, Plt 152, Na 133, K 4.3, Cr 0.66, eGFR 58, BG 93, trop 22. CXR with no acute abnormality. Echo with EF 60-65%, with mod concentric LVH, bioprosthetic leaflets thickened and motion is restricted with elevated systolic AV garadient suggesting obstruction (mean gradient of 42), mild-mod MR, mild TR and systolic PAP 53 mm Hg. Per cardio, likely CHF rather than ACS. Will admit. For CP and SUAREZ, start on iv lasix, monitor response for subsequent dosing, strict I and Os and daily weight. Will trend trop and monitor on tele. For rectal bleeding, H and H stable, could be UC flare given medication non compliance. Trend H&H, resume her mesalamine, check inflammatory markers and consult GI. Might need imaging of CT A/P. Recheck her TFTs as her last TFT abnormal and her synthroid was adjusted at that time. Rest as per the note above.
[2021-12-04] MEDS ORDERED: FUROSEMIDE 40 MG/4 ML VIAL IV ONE (11:25)
--- NOTE | 2021-12-04 11:26 | Cardiology Consultation ---
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 Referred to ER by outpatient cardiology office due to symptoms. 1 SL nitro with mild relief of symptoms, but resulted in worsening hypotension. BP trends lower chronically. Initial cardiac HS troponin without significant elevation or change from previous. Trend markers Echo revealed preserved EF with worsening of bioprosthetic aortic stenosis compared to prior echo. Chest xray with possible mild vascular congestion. She does not examine as significantly volume overloaded, but her symptoms may be due to CHF in the setting of severe valvular disease. Consider low dose furosemide 20 mg x 1 dose if BP allows. Continue low dose metoprolol 12.5 mg daily. Continue ASA and digoxin. Likely will need future intervention on aortic valve bioprosthesis. Case reviewed with Dr. Fontenot. Further recommendations pending further testing/clinical course. Would consult hospitalist for admission. Supervising Physician Co-Signing Physician Notes 81-year-old female present emergency department with chest discomfort from the cardiology clinic. Poor historian. Denies orthopnea or PND. No lower extremity edema or claudication. Reports a history of chronic chest discomfort waxing and waning over several months to years. ECG with ST-T wave changes, however, findings noted on prior ECG. High-sensitivity troponin chronically elevated. Currently resting comfortably. PE: VSS. Gen: NAD, AAOx3. Heart: Regular rhythm. Normal S1-S2. 3/6 medium pitched mid-to-late peaking systolic ejection murmur heard best at the right second intercostal space. Lungs: Clear bilateral, no rales rhonchi or wheeze. Extremities: No edema. A/P: Agree with above PA-C history, physical exam, assessment and plan. Echocardiogram reveals progression of bioprosthetic aortic valve stenosis. Agree with dose of IV furosemide for treatment of suspected heart failure in the setting of progressive valve dysfunction. Echocardiogram reveals normal wall motion. Troponins are not significantly elevated. Continue to trend x3 sets. No role for IV anticoagulation currently. Other cardiovascular medications will be continued as previously ordered. Ultimately when stabilized, patient will require outpatient referral to the [facility] valve clinic. History of Present Illness History of Present Illness Patient is a 81 year old female, known to [facility] cardiology, following with Dr. Jordan and WILMER's, for complex history includin. 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 2. No coronary disease by preoperative cardiac catheterization, 2009. 3. Chondrosarcoma of the sternum and chest, status post partial resection with redo surgery April 2017 with resection of the mid lower sternum and right costal cartilage with anterior chest wall reconstruction with mesh and pectoral flap 4. Status post meningioma resection via gamma knife, May 2014 no growth on followup 2016 5. History of paroxysmal, Atrial flutter, Anticoagulation discontinued on 03/21/[address] Jordan. 6. Carotid artery occlusion, right. Last duplex 2019 7. COPD 8. Dilated right heart structures with moderate pulmonary hypertension 9. Nocturnal hypoxemia treated with supplemental oxygen, 2 L/min 10. Mechanical fall with left tentorium subdural hematoma identified December 28, 2018 11. History of chronic low back pain and spinal stenosis, prior epidural injections. 12. History of ulcerative colitis/diverticulosis. 13. Hypothyroidism 14. B12 deficiency 15. History of hyponatremia secondary to dehydration and alcohol consumption Patient presented to cardiology office today with complaints vague complaints of generalized weakness, chest pressure and not feeling well. She is a rather poor historian and upon questioning does not provide a great deal of information. She reports worsening SOB over the last few months. She denies weight gain, orthopnea, PND or edema. She has lost weight and attributes this to lack of appetite and not eating/drinking. Over the last few days she reports substernal chest pressure. She is unable to report aggravating or alleviating factors, its "just there". No diaphoresis. No associated SOB currently. She reports feeling her heart "pounding". She reports chronic dizziness but not really changed. No syncope or near syncope. She reports frequent diarrhea, which is also common with history of ulcerative colitis. Upon evaluation in outpatient cards office today, she was found to have possible worsening of her ST/T wave abnormality in inferior and anterolateral leads. DUe to chest pressure and abnormal EKG, she was referred to ER for evaluation. Upon arrival, EKG with similar findings, diffuse ST/T wave abnormality, similar to past tracings that comes and goes. She was treated on arrival with 1 SL nitro. Unfortunately this caused some mild hypotension. gentle hydration started. Chest xray with mild pulm vascular congestion. Stat echo ordered. at time of cards evaluation/consult, she was resting comfortably but continued to report mild substernal pressure. Unable to elaborate on timing of symptom onset. She believes symptoms have slightly improved from ER arrival. Allergies Allergy/AdvReac Type Severity Reaction Status Date / Time Penicillins Allergy Intermediate HIVES Verified 11/12/21 22:54 Home Medications Medication Instructions Recorded Confirmed Type acetaminophen 650 mg 2 tab PO BID PRN Pain 04/12/18 12/04/21 History tablet,extended release (Tylenol Arthritis Pain) levothyroxine 112 mcg capsule 112 mcg PO DAILY 04/12/18 12/04/21 History albuterol sulfate 90 mcg/actuation 2 puff inhalation Q4H PRN 09/23/18 12/04/21 History aerosol inhaler shortness of breath digoxin 125 mcg (0.125 mg) tablet 0.125 mg PO DAILY@1600 #30 tabs 09/27/18 12/04/21 Rx naproxen 500 mg tablet 500 mg PO BIDM PRN Pain 10/23/21 12/04/21 History famotidine 20 mg tablet 20 mg PO DAILY 11/12/21 12/04/21 History metoprolol succinate 25 mg 12.5 mg PO DAILY 11/12/21 12/04/21 History tablet,extended release 24 hr umeclidinium 62.5 mcg-vilanterol 1 inh inhalation QAM 11/12/21 12/04/21 History 25 mcg/actuation powdr for inhalation (Anoro Ellipta) Oxygen Home 12/04/21 12/04/21 History Patient History Medical History Atrial flutter Cardiac murmur Carotid artery occlusion Cervical facet joint syndrome Cervical spondylosis Cervicogenic headache Chondrosarcoma (Unknown) S/P resection COPD (chronic obstructive pulmonary disease) Crohn disease Crohns disease Diverticulitis Former smoker History of thyroidectomy (Unknown) History of total hysterectomy (Unknown) "2001 " Hyperlipidemia Hypothyroidism Intracranial meningioma (Unknown) Meningioma Osteoarthritis Spinal stenosis Stenosis of aorta Ulcerative colitis Valvular heart disease Surgical History History of appendectomy History of thoracic surgery S/P aortic valve replacement S/P colon resection Family History Mother Coronary heart disease Father Coronary heart disease Social History Smoking Status: Former smoker Second Hand Exposure: No; Hx Alcohol Use: Yes Alcohol type: beer Alcohol type Comment: 2 reagan lights a day Hx Substance Use: No Preferred Language: Turkmen Communication Ability: Effective Veneer Sawyer Required: No Beliefs That Will Affect Care: None Current Living Situation: Alone Current Living Situation Comment: Independent, still drives Feels Safe at Home: Yes Safety Concerns: Feels Safe At This Time Assistive Devices: None Review of Systems Review of Systems: All systems reviewed & are unremarkable except as noted in HPI & below Physical Exam Constitutional: WD/WN, vitals as above + thin and comfortable; no acute distress Respiratory: normal respiratory effort; no respiratory distress Auscultation: lungs clear to auscultation bilaterally; no crackles and no rales Cardiovascular: Rate/Rhythm: regular rate and regular rhythm Heart Sounds: + murmur (harsh 3/6 systolic murmur throughout the precordium, radiation to neck) Palpation: + thrill Vessels: + JVD Extremities: no edema Gastrointestinal (Abdomen): normal bowel sounds, soft, nontender, no hepatosplenomegaly Musculoskeletal: no cyanosis or clubbing, extremities motor strength 5/5 Skin: no rashes, warm and dry Neurologic: PERRL, EOMI, accommodation nl, no face palsy, no dysarthria Psychiatric: A+Ox3, euthymic affect Results & Data ([facility]) Vital Signs (Past 12 Hours) Vital Signs Temp Pulse Pulse Resp BP BP Pulse Ox 12/04/21 11:15 64 17 79/62 L 97 12/04/21 10:06 12/04/21 08:59 36.7 C 64 18 115/57 L 97 O2 Del Method 12/04/21 11:15 Room Air 12/04/21 10:06 Room Air 12/04/21 08:59 Room Air Laboratory Results Cardiac Enzymes 12/04/21 Range/Units 09:40 AST 23 (13-39) U/L Troponin I High Sens 22.0 H (0-14) pg/ml Coagulation 12/04/21 Range/Units 09:40 PT 11.7 (9.0-12.0) Seconds APTT 27.8 (21.0-31.0) Seconds CBC 12/04/21 Range/Units 09:40 WBC 6.87 (4.8-10.8) K/ul RBC 3.64 L (3.93-5.22) M/uL Hgb 12.1 (12.0-16.0) g/dl Hct 35.9 (34.1-44.9) % Plt Count 152 (130-400) K/uL Neut # (Auto) 4.14 (1.4-6.5) K/uL Lymph # (Auto) 1.61 (1.2-3.4) K/uL Tillman # (Auto) 0.84 H (0.24-0.82) K/uL Eos # (Auto) 0.19 (0-0.50) K/uL Baso # (Auto) 0.06 (0-0.2) K/uL Comprehensive Metabolic Panel 12/04/21 Range/Units 09:40 Sodium 133 L (136-145) mmol/L Potassium 4.3 (3.5-5.1) mmol/L Chloride 100 (98-107) mmol/L Carbon Dioxide 26 (21-32) mmol/L BUN 16 (6-23) mg/dl Creatinine 0.66 (0.6-1.2) mg/dl Glucose 93 (70-99(Fasting)) mg/dl Calcium 8.9 (8.5-10.1) mg/dl AST 23 (13-39) U/L ALT 18 (7-52) U/L Alkaline Phosphatase 81 (34-104) U/L Total Protein 6.5 (6.0-8.3) gm/dl Albumin 3.6 (3.4-5.0) gm/dl Intake and Output 12/03/21 12/04/21 12/04/21 22:59 06:59 14:59 Intake Total 1000 / 1000 Balance 1000 / 1000 Intake: IV 1000 / 1000 Sodium Chloride 0.9% 1000ML 1, 1000 / 1000 000 ml @ 999 mls/hr IV .Q1H1M ONE Rx#:[id number] Other: Weight 56.7 kg Patient Weight 12/05/21 06:59 Weight 56.7 kg Laboratory Results WBC 6.87 K/ul (4.8-10.8) 12/04/21 09:40 RBC 3.64 M/uL (3.93-5.22) L 12/04/21 09:40 Hgb 12.1 g/dl (12.0-16.0) 12/04/21 09:40 Hct 35.9 % (34.1-44.9) 12/04/21 09:40 MCV 98.6 fL (80.0-100.0) 12/04/21 09:40 MCH 33.2 pg (25.0-34.0) 12/04/21 09:40 MCHC 33.7 g/dL (32.0-36.0) 12/04/21 09:40 RDW Std Deviation 44.2 fL (36.4-46.3) 12/04/21 09:40 RDW Coeff of Brendon 12.1 % (11.5-14.5) 12/04/21 09:40 Plt Count 152 K/uL (130-400) 12/04/21 09:40 MPV 8.6 fL (9.4-12.3) L 12/04/21 09:40 Immature Gran % (Auto) 0.4 % 12/04/21 09:40 Neut % (Auto) 60.3 % 12/04/21 09:40 Lymph % (Auto) 23.4 % 12/04/21 09:40 Tillman % (Auto) 12.2 % 12/04/21 09:40 Eos % (Auto) 2.8 % 12/04/21 09:40 Baso % (Auto) 0.9 % 12/04/21 09:40 Neut # (Auto) 4.14 K/uL (1.4-6.5) 12/04/21 09:40 Lymph # (Auto) 1.61 K/uL (1.2-3.4) 12/04/21 09:40 Tillman # (Auto) 0.84 K/uL (0.24-0.82) H 12/04/21 09:40 Eos # (Auto) 0.19 K/uL (0-0.50) 12/04/21 09:40 Baso # (Auto) 0.06 K/uL (0-0.2) 12/04/21 09:40 Immature Gran # (Auto) 0.03 K/uL (0.00-0.02) H 12/04/21 09:40 PT 11.7 Seconds (9.0-12.0) 12/04/21 09:40 INR 1.1 (0.9-1.1) 12/04/21 09:40 APTT 27.8 Seconds (21.0-31.0) 12/04/21 09:40 PTT Ratio 1.0 12/04/21 09:40 Sodium 133 mmol/L (136-145) L 12/04/21 09:40 Potassium 4.3 mmol/L (3.5-5.1) 12/04/21 09:40 Chloride 100 mmol/L (98-107) 12/04/21 09:40 Carbon Dioxide 26 mmol/L (21-32) 12/04/21 09:40 Anion Gap 7 (3-11) 12/04/21 09:40 BUN 16 mg/dl (6-23) 12/04/21 09:40 Creatinine 0.66 mg/dl (0.6-1.2) 12/04/21 09:40 Est Cr Clr Drug Dosing 58.8 ml/min 12/04/21 09:40 Est GFR ( Amer) 95.3 ml/min 12/04/21 09:40 Est GFR (Non-Af Amer) 82.3 ml/min 12/04/21 09:40 BUN/Creatinine Ratio 24.2 (10-20) H 12/04/21 09:40 Glucose 93 mg/dl (70-99(Fasting)) 12/04/21 09:40 Calcium 8.9 mg/dl (8.5-10.1) 12/04/21 09:40 Total Bilirubin 1.0 mg/dl (0.2-1.0) 12/04/21 09:40 AST 23 U/L (13-39) 12/04/21 09:40 ALT 18 U/L (7-52) 12/04/21 09:40 Alkaline Phosphatase 81 U/L (34-104) 12/04/21 09:40 Troponin I High Sens 22.0 pg/ml (0-14) H 12/04/21 09:40 Total Protein 6.5 gm/dl (6.0-8.3) 12/04/21 09:40 Albumin 3.6 gm/dl (3.4-5.0) 12/04/21 09:40 Globulin 2.9 gm/dl (2.5-4.0) 12/04/21 09:40 Albumin/Globulin Ratio 1.2 (0.9-2) 12/04/21 09:40 Lipase 32 U/L (11-82) 12/04/21 09:40 SARS-CoV-2, RNA, NAAT NEGATIVE (NEGATIVE) 12/04/21 11:09 Impressions Diagnostic Findings Telemetry reviewed: NSR, no arrhythmias. EKG's reviewed from admission: NSR with ST/T wave abnormality in anterior and inferior leads. She has had similar findings dating back many years. ST/T wave abnormality waxes/wanes Echo report reviewed dated 12/04/2021: Compared to prior study, changes are noted. LV systolic function is normal. Ejection fraction 60 to 65%. Moderate concentric LVH. Septal motion is consistent with postop state. There is a bioprosthetic aortic valve. Bioprosthetic leaflets are thickened and motion is restricted. Elevated bioprosthetic aortic valve systolic gradient suggesting obstruction. Mean gradient 42 mmHg. Mild intra valvular bioprosthetic aortic valve regurgitation. Mild to moderate MR. Mild TR. Estimated systolic pulmonary pressure at 53 mmHg. Chest xray reviewed, per my review: mild pulm vascular congestion Nuclear stress test 03/29/2021 Myocardial perfusion imaging is normal. Overall left ventricular systolic function was normal without regional wall motion abnormalities. The left ventricular ejection fraction was 60%. There are no prior studies available for comparison. Echo 03/29/2021 The examination is adequate to evaluate the referral indication. The left ventricular cavity size is normal. The LV wall thickness is mildly increased (concentric). The left ventricular wall motion is normal. The qualitative LV ejection fraction is 55-59% (normal). The left ventricular diastolic function is mildly abnormal (grade I). The left atrium is severely enlarged (>48 ml/m^2,). The right atrium is moderately enlarged. There is moderate mitral annular calcification. There is focal thickening of the posterior mitral valve leaflet(s). The mitral valve leaflets are mildly calcified. Mild mitral regurgitation is present. There is an aortic valve bioprosthetic present. The aortic valve prosthesis systolic gradients are are borderline elevated and are indeterminate for obstruction. Normal IVC size and collapsability with inspiration indicates a normal right atrial pressure of 3 mmHg. The estimated pulmonary artery systolic pressure is 50-55mm Hg. Compared with previous study dated 04/26/2020, peak velocity across the aortic valve prosthesis is mildly increased, and valve area is mildly diminished. Estimated pulmonary artery pressure is increased Medications Administered Current Inpatient Medications Nitroglycerin (Nitroglycerin Sl 0.4 Mg/Tab Tab) 0.4 mg SL UD PRN PRN Reason: Chest Pain Stop: 01/03/22 09:13 Last Admin: 12/04/21 09:50 Dose: 0.4 mg Medications acetaminophen 650 mg tablet,extended release (Tylenol Arthritis Pain) 2 tab PO BID PRN Pain 04/12/18 [History Confirmed 12/04/21] gabapentin 100 mg capsule 100 mg PO QAM 04/12/18 [History Confirmed 12/04/21] levothyroxine 112 mcg capsule 112 mcg PO DAILY 04/12/18 [History Confirmed 12/04/21] albuterol sulfate 90 mcg/actuation aerosol inhaler 2 puff inhalation Q4H PRN shortness of breath 09/23/18 [History Confirmed 12/04/21] conjugated estrogens 0.625 mg tablet (Premarin) 0.625 mg PO DAILY 09/23/18 [History Confirmed 12/04/21] digoxin 125 mcg (0.125 mg) tablet 0.125 mg PO DAILY@1600 #30 tabs 09/27/18 [Rx Confirmed 12/04/21] naproxen 500 mg tablet 500 mg PO BIDM PRN Pain 10/23/21 [History Confirmed 12/04/21] cholecalciferol (vitamin D3) 25 mcg (1,000 unit) capsule 1,000 unit PO QAM #30 caps 10/25/21 [Rx Confirmed 11/12/21] famotidine 20 mg tablet 20 mg PO DAILY 11/12/21 [History Confirmed 12/04/21] metoprolol succinate 25 mg tablet,extended release 24 hr 12.5 mg PO DAILY 11/12/21 [History Confirmed 12/04/21] umeclidinium 62.5 mcg-vilanterol 25 mcg/actuation powdr for inhalation (Anoro Ellipta) 1 inh inhalation QAM 11/12/21 [History Confirmed 12/04/21] Oxygen Home 12/04/21 [History Confirmed 12/04/21] Home Medications Nitroglycerin (Nitroglycerin Sl 0.4 Mg/Tab Tab) 0.4 mg SL UD PRN PRN Reason: Chest Pain Stop: 01/03/22 09:13 Last Admin: 12/04/21 09:50 Dose: 0.4 mg
--- NOTE | 2021-12-04 11:30 | Electrocardiogram Report ---
Test Reason : Blood Pressure : / mmHG Vent. Rate : 062 BPM Atrial Rate : 062 BPM P-R Int : 182 ms QRS Dur : 084 ms QT Int : 422 ms P-R-T Axes : 056 -13 034 degrees QTc Int : 428 ms Normal sinus rhythm Possible Left atrial enlargement ST and T wave changes concerning for ischemia Abnormal ECG Confirmed by Jim Stephen ([id number]) on 12/04/2021 11:30:14 AM Referred By: Yahir Collado Confirmed By:Sandro Stephen
--- NOTE | 2021-12-04 11:43 | Electrocardiogram Report ---
Test Reason : Blood Pressure : / mmHG Vent. Rate : 061 BPM Atrial Rate : 061 BPM P-R Int : 178 ms QRS Dur : 092 ms QT Int : 410 ms P-R-T Axes : 078 031 073 degrees QTc Int : 412 ms Normal sinus rhythm ST segement depressions concerning for ischemia Abnormal ECG When compared with ECG of 04-DEC-2021 09:13, (unconfirmed) QRS voltage has decreased Non-specific change in ST segment in Anterior leads Confirmed by Jim Stephen ([id number]) on 12/04/2021 11:42:46 AM Referred By: Yahir Collado Confirmed By:Sandro Stephen
[2021-12-04 13:16] LABS: Thyroid Stimulating Hormone 0.158 uIu/ml (0.300-4.500)
[2021-12-04 13:59] LABS: T4 Free Thyroxine 1.7 ng/dl (0.61-1.60)
[2021-12-04] MEDS ORDERED: ALBUTEROL HFA 8 GM INHALER INH PRN (16:41)
[2021-12-04] MEDS ORDERED: MAGNESIUM HYDROXIDE SUSP 30 ML UDC PO PRN (16:41)
[2021-12-04] MEDS ORDERED: POLYETHYLENE (MIRALAX) 17 GM PACK PO PRN (16:41)
[2021-12-04] MEDS ORDERED: ALUMINUM/MAGNESIUM SUSP 30 ML UDC PO PRN (16:41)
[2021-12-04] MEDS ORDERED: ONDANSETRON INJ 2 MG/ML 2 ML VIAL IV PRN (16:41)
--- NOTE | 2021-12-04 17:53 | Electrocardiogram Report ---
Test Reason : Blood Pressure : / mmHG Vent. Rate : 062 BPM Atrial Rate : 062 BPM P-R Int : 172 ms QRS Dur : 090 ms QT Int : 450 ms P-R-T Axes : 080 042 083 degrees QTc Int : 456 ms Normal sinus rhythm Nonspecific ST and T wave abnormality Abnormal ECG When compared with ECG of 04-DEC-2021 09:19, Borderline criteria for Anteroseptal infarct are no longer Present Confirmed by Jim Stephen ([id number]) on 12/04/2021 5:53:36 PM Referred By: Yahir Collado Confirmed By:Sandro Stephen
[2021-12-04] MEDS ORDERED: MELATONIN 3 MG TAB PO PRN (22:23)
[2021-12-05] MEDS: LEVOTHYROXINE SODIUM 112 MCG TABLET PO SCH (05:34)
[2021-12-05 06:57] LABS: Basophils # (auto) 0.05 K/uL (0-0.2); Basophils % (auto) 0.7 %; Eosinophils # (auto) 0.29 K/uL (0-0.50); Eosinophils % (auto) 3.9 %; Hemoglobin 12.2 g/dl (12.0-16.0); Immature Granulocytes # (auto) 0.03 K/uL (0.00-0.02); Immature Granulocytes % (auto) 0.4 %; Lymphocytes # (auto) 1.38 K/uL (1.2-3.4); Lymphocytes % (auto) 18.8 %; Mean Corpuscular Hemoglobin 33.7 pg (25.0-34.0); Mean Corpuscular Hgb Conc 33.9 g/dL (32.0-36.0); Mean Corpuscular Volume 99.4 fL (80.0-100.0); Mean Platelet Volume 9.1 fL (9.4-12.3); Monocytes % (auto) 10.9 %; Neutrophils % (auto) 65.3 %; Platelet Count 167 K/uL (130-400); RDW Standard Deviation 44.2 fL (36.4-46.3); Red Blood Count 3.62 M/uL (3.93-5.22); White Blood Count 7.35 K/ul (4.8-10.8)
[2021-12-05 07:36] LABS: Albumin Globulin Ratio 1.1 (0.9-2); Albumin Level 3.4 gm/dl (3.4-5.0); BUN Creatinine Ratio 25.5 (10-20); Bilirubin,Total 0.9 mg/dl (0.2-1.0); Calcium 8.4 mg/dl (8.5-10.1); Chol HDL Ratio 3.6 (0-5); Creatinine Clr Calc Pharmacy 72.2 ml/min; Est GFR (African American) 101.2 ml/min; Est GFR (Non-African American) 87.4 ml/min; Magnesium 1.7 mg/dl (1.7-2.4); Potassium 3.8 mmol/L (3.5-5.1); Total Protein 6.4 gm/dl (6.0-8.3)
[2021-12-05] MEDS: ACETAMINOPHEN 325 MG TAB PO PRN ×3 (07:37→19:25)
[2021-12-05 07:48] LABS: Estimated Average Glucose 103 mg/dl; Hemoglobin A1C 5.2 % (4.5-5.6)
[2021-12-05] MEDS ORDERED: PNEUMOCOCCAL POLYSACCHARIDES 25 MCG/0.5 ML VIAL/SYR IM ONE (08:00)
[2021-12-05] MEDS: UMECLIDINIUM/VILANTEROL 62.5/25MCG 7 PUFFS/INHALER INH SCH (08:34)
[2021-12-05] MEDS: DIGOXIN 0.125 MG TAB PO SCH (08:35)
[2021-12-05] MEDS: FAMOTIDINE 20 MG TAB PO SCH (08:35)
[2021-12-05] MEDS: ASPIRIN 81 MG ECTAB PO SCH (08:35)
[2021-12-05] MEDS: METOPROLOL SUCC 25MG EXT REL TAB PO SCH ×2 (08:36→10:07)
[2021-12-05 08:54] LABS: Adenovirus F 40/41 PCR Not Detected (NotDetected); Astrovirus PCR Not Detected (NotDetected); Campylobacter PCR Not Detected (NotDetected); Clostridium diff Toxin A/B PCR Not Detected (NotDetected); Cryptosporidium PCR Not Detected (NotDetected); Cyclospora cayetanensis PCR Not Detected (NotDetected); Entamoeba histolytica PCR Not Detected (NotDetected); Enteroaggregative E.coli(EAEC) Not Detected (NotDetected); Enterotoxigenic E.coli (ETEC) Not Detected (NotDetected); Giardia lamblia PCR Not Detected (NotDetected); Norovirus GI/GII PCR Not Detected (NotDetected); Plesiomonas shigelloides PCR Not Detected (NotDetected); Rotavirus A PCR Not Detected (NotDetected); Salmonella PCR Not Detected (NotDetected); Sapovirus PCR Not Detected (NotDetected); Shiga-like Toxin E.coli (STEC) Not Detected (NotDetected); Shigella/Enteroinvasive E.coli Not Detected (NotDetected); Vibrio cholerae PCR Not Detected (NotDetected); Vibrio species PCR Not Detected (NotDetected); Yersinia enterocolitica PCR Not Detected (NotDetected)
[2021-12-05 09:00] LABS: Enteropathogenic E.coli (EPEC) DETECTED (NotDetected)
--- NOTE | 2021-12-05 11:14 | Gastrointestinal Consultation ---
Date of Consultation December 05, 2021 Assessment & Plan (1) Rectal bleeding: (2) Crohn's colitis: Plan Restart p.o. mesalamine plan for outpatient EGD and colonoscopy in approximately 1 month after cardiac issues have been addressed. Our office w contact her to arrange EGD/Colonoscopy and an OP GI office f/u. GI will sign off. Please notify us if new/worsening GI issues. Supervising Physician Co-Signing Physician Notes I have seen and examined the patient with RAJAN Russ whose note reflects our findings and plan. Outpatient follow up to be arranged. Resume oral mesalamine. Work up and mgt of chest pain per cardiology and primary service. Please call with questions. History of Present Illness Reason for Consultation: hx crohns, off meds, bloody stool/abd pain Requesting Physician: Zina Tipton PA-C Attending Physician: Enzo Mark MD History of Present Illness Ms. Nereida Bhardwaj is an 81-year-old female patient of Dr. 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 She is admitted for chest pain and GI is consulted because she is having rectal bleeding. When I was in the room with the patient, her daughter was also on the phone. Her daughter tells me that she has had decreased appetite and significant weight loss approx 15 since last fall. The patient reports that her she has bilateral lower abdomen cramping after every time she eats anything therefore she is avoiding eating. She was most recently seen in the GI , clinic by Dr. Beckham in 2019 for Crohn's colitis at that time in remission. Her most recent endoscopy was 2019 EGD with gastritis and a recommendation to recheck EGD in 1 year. Colonoscopy at that time with mild diffuse granular mucosa in the entire colon and a patent end-to-end colocolonic anastomosis. She had been maintained on po mesalam,ine but ran out of her supply approx one month ago and has not been on any Crohn's meds since that time. Allergies Allergy/AdvReac Type Severity Reaction Status Date / Time Penicillins Allergy Intermediate HIVES Verified 11/12/21 22:54 Home Medications Medication Instructions Recorded Confirmed Type acetaminophen 650 mg 2 tab PO BID PRN Pain 04/12/18 12/04/21 History tablet,extended release (Tylenol Arthritis Pain) levothyroxine 112 mcg capsule 112 mcg PO DAILY 04/12/18 12/04/21 History albuterol sulfate 90 mcg/actuation 2 puff inhalation Q4H PRN 09/23/18 12/04/21 History aerosol inhaler shortness of breath digoxin 125 mcg (0.125 mg) tablet 0.125 mg PO DAILY@1600 #30 tabs 09/27/18 12/04/21 Rx naproxen 500 mg tablet 500 mg PO BIDM PRN Pain 10/23/21 12/04/21 History famotidine 20 mg tablet 20 mg PO DAILY 11/12/21 12/04/21 History metoprolol succinate 25 mg 12.5 mg PO DAILY 11/12/21 12/04/21 History tablet,extended release 24 hr umeclidinium 62.5 mcg-vilanterol 1 inh inhalation QAM 11/12/21 12/04/21 History 25 mcg/actuation powdr for inhalation (Anoro Ellipta) Oxygen Home 12/04/21 12/04/21 History Patient History Medical History Atrial flutter Cardiac murmur Carotid artery occlusion Cervical facet joint syndrome Cervical spondylosis Cervicogenic headache Chondrosarcoma (Unknown) S/P resection COPD (chronic obstructive pulmonary disease) Crohn disease Crohns disease Diverticulitis Former smoker History of thyroidectomy (Unknown) History of total hysterectomy (Unknown) "2001 " Hyperlipidemia Hypothyroidism Intracranial meningioma (Unknown) Meningioma Osteoarthritis Spinal stenosis Stenosis of aorta Ulcerative colitis Valvular heart disease Surgical History History of appendectomy History of thoracic surgery S/P aortic valve replacement S/P colon resection Family History Mother Coronary heart disease Father Coronary heart disease Social History Smoking Status: Former smoker Second Hand Exposure: No; Hx Alcohol Use: Yes Alcohol type: beer Alcohol type Comment: 2 reagan lights a day Hx Substance Use: No Preferred Language: Kinyarwanda Communication Ability: Effective Currency Machine Operator Required: No Beliefs That Will Affect Care: None Current Living Situation: Alone Current Living Situation Comment: Independent, still drives Feels Safe at Home: Yes Safety Concerns: Feels Safe At This Time Assistive Devices: None Review of Systems Review of Systems: Reports left-sided chest pain and pressure, denies any other signs or symptoms of illness except as mentioned in the HPI, a total of 12 systems were reviewed. Physical Exam Constitutional: well developed, well nourished and + thin; no acute distress Eyes: PERRL, conjunctivae normal, anicteric sclerae ENMT: external ear and nose normal, oropharynx normal Neck: trachea midline, no thyromegaly Respiratory: normal respiratory effort, lungs clear to auscultation Cardiovascular: Rate/Rhythm: regular rhythm Heart Sounds: + murmur (3/6 systolic) Gastrointestinal (Abdomen): normal bowel sounds, soft, nontender, no hepatosplenomegaly Skin: no rashes, warm and dry Neurologic: PERRL, EOMI, accommodation nl, no face palsy, no dysarthria Psychiatric: A+Ox3, euthymic affect Lymphatic: no cervical or axillary lymphadenopathy Results & Data ([facility]) Vital Signs (Past 12 Hours) Vital Signs Temp Pulse Pulse Resp BP Pulse Ox O2 Del Method 12/05/21 11:04 36.4 C L 70 17 103/46 L 93 Room Air 12/05/21 10:27 70 12/05/21 10:14 86/45 L 12/05/21 09:32 81/39 L 12/05/21 08:35 78 82/37 L 12/05/21 08:35 78 12/05/21 07:05 36.7 C 72 16 115/56 L 94 Room Air 12/05/21 00:00 77 12/05/21 03:37 36.8 C 74 16 124/58 L 95 Room Air 12/04/21 23:11 36.7 C 75 18 92/48 L 94 Room Air Laboratory Results WBC 7.35, Hb 12.2, HCT 36, PLT S167, NA 133, K3.8, CL 100, CO2 27, BUN 14, CR 0.5, glucose 97.
[2021-12-05] MEDS ORDERED: FUROSEMIDE INJ 20 MG/2 ML VIAL IV ONE (14:38)
--- NOTE | 2021-12-05 14:45 | Cardiology Progress Note ---
Date of Service December 05, 2021 Assessment & Plan (1) Abnormal ECG: (2) Chest pain: (3) S/P aortic valve replacement: (4) Acute on chronic diastolic heart failure due to valvular disease: Plan Patient presenting with substernal chest pressure, waxing/waning over several days, associated with abnormal EKG with diffuse ST/T wave abnormality in inferior and anterolateral leads. cardiac HS troponin without significant elevation or change from previous. Echo revealed preserved EF with worsening of bioprosthetic aortic stenosis compared to prior echo. Chest xray with possible mild vascular congestion. Symptoms likely consistent due to HFpEF due to valvular heart disease. Symptoms improved with one dose IV furosemide yesterday. Stable labs today. Will repeat additional furosemide 20 mg IV x 1 dose now. Will likely need low dose on discharge. Continue low dose metoprolol 12.5 mg daily. Continue ASA and digoxin. Likely will need future intervention on aortic valve bioprosthesis.Will arrange outpatient valve clinic appt. Case reviewed with Dr. Fontenot. Anticipate discharge tomorrow. Admission and Anticipated Discharge Date Admission Date: December 04, 2021 Supervising Physician Co-Signing Physician Notes 81-year-old female admitted 12/04/2021 with chest discomfort from the cardiology clinic. Treated for acute decompensated heart failure in the setting of progressive bioprosthetic valve stenosis. Clinically improved today. Chest discomfort has returned to baseline. States "I always have tightness". More alert and appropriate today. PE: VSS. Gen: NAD, AAOx3. Heart: Regular rhythm. Normal S1-S2. 3/6 medium pitched mid-to-late peaking systolic ejection murmur heard best at the right second intercostal space. Lungs: Clear bilateral, no rales rhonchi or wheeze. Extremities: No edema. A/P: Agree with above PA-C history, physical exam, assessment and plan. Echocardiogram reveals progression of bioprosthetic aortic valve stenosis. Treat with additional dose of intravenous furosemide this afternoon. Transition to oral Lasix in a.m. pending review of labs and clinical response. Echoc ardiogram reveals normal wall motion. Troponins are not significantly elevated.Other cardiovascular medications will be continued as previously ordered. Plan referral to the [facility] valve clinic upon discharge for evaluation of bioprosthetic aortic valve stenosis. Subjective Patient resting in bed comfortably. Reports improved chest tightness since admission. SHe reports she "always" has some form of chest tightness and this is chronic. Denies worsening SOB. No edema. Cough improving. No dizziness or lightheadedness. Review of Systems Review of Systems: All systems reviewed & are unremarkable except as noted in HPI & below Physical Exam Constitutional: WD/WN, vitals as above well developed, well nourished, + thin and comfortable; no acute distress Respiratory: normal respiratory effort, lungs clear to auscultation normal respiratory effort; no respiratory distress Auscultation: lungs clear to auscultation bilaterally; no crackles and no rales Cardiovascular: Rate/Rhythm: regular rate and regular rhythm Heart Sounds: + murmur (3/6 systolic) Vessels: + JVD Extremities: no edema Gastrointestinal (Abdomen): normal bowel sounds, soft, nontender, no hepatosplenomegaly Skin: no rashes, warm and dry Neurologic: PERRL, EOMI, accommodation nl, no face palsy, no dysarthria Psychiatric: A+Ox3, euthymic affect Results & Data ([facility]) Vital Signs (Past 12 Hours) Vital Signs Temp Pulse Pulse Resp BP Pulse Ox O2 Del Method 12/05/21 11:04 36.4 C L 70 17 103/46 L 93 Room Air 12/05/21 10:27 70 12/05/21 10:14 86/45 L 12/05/21 09:32 81/39 L 12/05/21 08:35 78 82/37 L 12/05/21 08:35 78 12/05/21 07:05 36.7 C 72 16 115/56 L 94 Room Air 12/05/21 03:37 36.8 C 74 16 124/58 L 95 Room Air Laboratory Results Cardiac Enzymes 12/04/21 12/04/21 12/05/21 Range/Units 17:02 22:37 05:54 AST 24 (13-39) U/L Troponin I High Sens 19.7 H 21.5 H (0-14) pg/ml Lipids 12/05/21 Range/Units 05:54 Triglycerides 73 (0-150) mg/dl Cholesterol 142 (0-200) mg/dl HDL Cholesterol 39 mg/dl Cholesterol/HDL Ratio 3.6 (0-5) CBC 12/05/21 Range/Units 05:54 WBC 7.35 (4.8-10.8) K/ul RBC 3.62 L (3.93-5.22) M/uL Hgb 12.2 (12.0-16.0) g/dl Hct 36.0 (34.1-44.9) % Plt Count 167 (130-400) K/uL Neut # (Auto) 4.80 (1.4-6.5) K/uL Lymph # (Auto) 1.38 (1.2-3.4) K/uL [place] # (Auto) 0.80 (0.24-0.82) K/uL Eos # (Auto) 0.29 (0-0.50) K/uL Baso # (Auto) 0.05 (0-0.2) K/uL Comprehensive Metabolic Panel 12/05/21 Range/Units 05:54 Sodium 133 L (136-145) mmol/L Potassium 3.8 (3.5-5.1) mmol/L Chloride 100 (98-107) mmol/L Carbon Dioxide 27 (21-32) mmol/L BUN 14 (6-23) mg/dl Creatinine 0.55 L (0.6-1.2) mg/dl Glucose 97 (70-99(Fasting)) mg/dl Calcium 8.4 L (8.5-10.1) mg/dl AST 24 (13-39) U/L ALT 16 (7-52) U/L Alkaline Phosphatase 76 (34-104) U/L Total Protein 6.4 (6.0-8.3) gm/dl Albumin 3.4 (3.4-5.0) gm/dl Intake and Output 12/04/21 12/05/21 12/05/21 22:59 06:59 14:59 Intake Total 50 / 1150 100 / 1150 480 / 480 Balance 50 / 1150 100 / 1150 480 / 480 Intake: Oral 50 / 150 100 / 150 480 / 480 Other: Weight 58 kg 58 kg 58 kg Weight Measurement Method [facility] Weight 12/06/21 06:59 Weight 58 kg Diagnostic Findings Telemetry reviewed: NSR in the 60-70 range. No arrhyhtmias. Echo report reviewed dated 12/04/2021: Compared to prior study, changes are noted. LV systolic function is normal. Ejection fraction 60 to 65%. Moderate concentric LVH. Septal motion is consistent with postop state. There is a bioprosthetic aortic valve. Bioprosthetic leaflets are thickened and motion is restricted. Elevated bioprosthetic aortic valve systolic gradient suggesting obstruction. Mean gradient 42 mmHg. Mild intra valvular bioprosthetic aortic valve regurgitation. Mild to moderate MR. Mild TR. Estimated systolic pulmonary pressure at 53 mmHg. Medications Administered Current Inpatient Medications Acetaminophen (Acetaminophen 325 Mg Tab) 650 mg PO Q4H PRN PRN Reason: Pain or Fever Stop: 01/03/22 16:40 Last Admin: 12/05/21 07:37 Dose: 650 mg Al Hydrox/Mg Hydrox/Simethicone (Aluminum/Magnesium Susp 30 Ml Udc) 15 ml PO Q4H PRN PRN Reason: Dyspepsia Stop: 01/03/22 16:40 Albuterol (Albuterol Hfa 8 Gm Inhaler) 2 puffs INH Q4H PRN PRN Reason: shortness of breath Stop: 01/03/22 16:40 Aspirin (Aspirin 81 Mg Ectab) 81 mg PO DAILY SALLY Stop: 01/04/22 08:59 Last Admin: 12/05/21 08:35 Dose: 81 mg Digoxin (Digoxin 0.125 Mg Tab) 0.125 mg PO DAILY SALLY Stop: 01/04/22 08:59 Last Admin: 12/05/21 08:35 Dose: 0.125 mg Famotidine (Famotidine 20 Mg Tab) 20 mg PO DAILY SALLY Stop: 01/04/22 08:59 Last Admin: 12/05/21 08:35 Dose: 20 mg Levothyroxine Sodium (Levothyroxine Sodium 112 Mcg Tablet) 112 mcg PO DAILYBB SALLY Stop: 01/04/22 06:29 Last Admin: 12/05/21 05:34 Dose: 112 mcg Magnesium Hydroxide (Magnesium Hydroxide Susp 30 Ml Udc) 30 ml PO Q12H PRN PRN Reason: Constipation Stop: 01/03/22 16:40 Last Admin: 12/05/21 13:12 Dose: 30 ml Melatonin (Melatonin 3 Mg Tab) 3 mg PO HS PRN PRN Reason: Sleep Stop: 01/03/22 22:22 Last Admin: 12/04/21 22:52 Dose: 3 mg Metoprolol Succinate (Metoprolol Succ 25mg Ext Rel Tab) 12.5 mg PO DAILY SALLY Stop: 01/04/22 08:59 Last Admin: 12/05/21 10:07 Dose: Not Given Ondansetron HCl (Ondansetron Inj 2 Mg/Ml 2 Ml Vial) 4 mg IV Q6H PRN PRN Reason: Nausea Stop: 01/03/22 16:40 Polyethylene Glycol (Polyethylene (Miralax) 17 Gm Pack) 17 gm PO DAILY PRN PRN Reason: Constipation Stop: 01/03/22 16:40 Last Admin: 12/05/21 04:40 Dose: 17 gm Umeclidinium/Vilanterol (Umeclidinium/Vilanterol 62.5/25mcg 7 Puffs/Inhaler) 1 puffs INH QAM SALLY Stop: 01/04/22 08:59 Last Admin: 12/05/21 08:34 Dose: 1 puffs
--- NOTE | 2021-12-05 19:40 | Hospitalist Progress Note ---
Date of Service December 05, 2021 Assessment & Plan (1) Chest pain: (2) Acute on chronic diastolic heart failure due to valvular disease: (3) S/P aortic valve replacement: (4) Rectal bleeding: Plan This is an 81-year-old female who has significant past medical history of meningioma status post resection via gamma knife in 2014, chondrosarcoma of sternum status postresection with redo surgery in 2016, history of bioprosthetic aortic valve replacement in 2009, paroxysmal atrial fibrillation/flutter with anticoagulation discontinued in 2018, right carotid artery occlusion, COPD, former tobacco abuse, 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 Atypical Chest Pain Abnormal ECG Acute on Chronic HFpEf due to valvular heart disease s/p bioprosthetic avr in 2009 Present on admission with chest pressure CXR showed Cardiomegaly with no acute cardiopulmonary abnormality identified. BNP on admission 459 Received lasix 20mg IV on admission and today ECHO showed preserved left ventricular systolic function with ejection fraction 60 to 65%. worsening of bioprosthetic aortic stenosis compared to previous Cardiology on board plan to discharge on low dose diuretic will need future intervention on aortic valve bioprosthesis. Cardio will arrange outpatient valve clinic appt. Continue metoprolol, dig and aspirin Clinically improved Hematochezia pt reports bloody bms Last colonoscopy 09/2018 -revealed diffuse area of granular mucosa with evidence of scarring in the entire colon consistent with IBD and Crohn's Stool positive for EPEC PCR - diarrhea improves Gastro on board recommended to resume mesalamine Hemoglobin stable plan for outpatient EGD and colonoscopy in approximately 1 month once stable from her cardiac issues COPD prior tobacco abuse nocturnal hypoxemia continue home inhalers Continue 2L of O2 at HS Stable Hypothyroidism continue levothyroxine DVT ppx: SCDS 2/2 to hematochezia Conditional code: NO CPR due to prior sternum resection, ok with other measures Disposition Will discharge once medically stable Admission and Anticipated Discharge Date Admission Date: December 04, 2021 Subjective Pt was seen and examined for follow up of chest pain and bloody bowel movement Lying in bed with no acute distress watching TV Patient called her daughter while I was seeing her, that I can provide her with update Patient said that she is not having any chest pain currently Denies any fever, palpitation, dizziness, shortness of breath. Review of Systems Review of Systems: All systems reviewed & are unremarkable except as noted in Subjective Physical Exam Physical Exam: General- No acute distress Head- atraumatic Eyes- PERRL, EOMI, ENT- oropharynx clear Neck- supple, no JVD Lungs- clear to auscultation Heart- regular rhythm; +systolic murmur Abdomen- normal bowel sounds, soft, nontender Extremities- no calf tenderness Neuro- alert, oriented x 3; PERRL, EOMI; no facial palsy; no dysarthria Skin- warm & dry Results & Data Results & Data ([facility]) Vital Signs (Past 12 Hours) Vital Signs Temp Pulse Pulse Resp BP Pulse Ox O2 Del Method 12/05/21 15:50 36.6 C 71 18 103/67 92 Room Air 12/05/21 15:20 73 12/05/21 15:08 137/57 L 12/05/21 11:04 36.4 C L 70 17 103/46 L 93 Room Air 12/05/21 10:27 70 12/05/21 10:14 86/45 L 12/05/21 09:32 81/39 L 12/05/21 08:35 78 82/37 L 12/05/21 08:35 78
[2021-12-05] MEDS ORDERED: bisacodyL 10 MG SUPP PR STA (19:44)
[2021-12-06] MEDS: LEVOTHYROXINE SODIUM 112 MCG TABLET PO SCH (05:28)
[2021-12-06 06:44] LABS: Hemoglobin 12.8 g/dl (12.0-16.0); Mean Corpuscular Hemoglobin 33.6 pg (25.0-34.0); Mean Corpuscular Hgb Conc 34.6 g/dL (32.0-36.0); Mean Corpuscular Volume 97.1 fL (80.0-100.0); Mean Platelet Volume 8.8 fL (9.4-12.3); Platelet Count 165 K/uL (130-400); RDW Standard Deviation 42.8 fL (36.4-46.3); Red Blood Count 3.81 M/uL (3.93-5.22); White Blood Count 7.68 K/ul (4.8-10.8)
[2021-12-06 07:21] LABS: BUN Creatinine Ratio 24.5 (10-20); Calcium 8.6 mg/dl (8.5-10.1); Creatinine Clr Calc Pharmacy 76.5 ml/min; Est GFR (African American) 102.5 ml/min; Est GFR (Non-African American) 88.4 ml/min; Potassium 3.8 mmol/L (3.5-5.1)
[2021-12-06] MEDS: DIGOXIN 0.125 MG TAB PO SCH (08:00)
[2021-12-06] MEDS: ASPIRIN 81 MG ECTAB PO SCH (08:00)
[2021-12-06] MEDS: UMECLIDINIUM/VILANTEROL 62.5/25MCG 7 PUFFS/INHALER INH SCH (08:01)
[2021-12-06] MEDS: METOPROLOL SUCC 25MG EXT REL TAB PO SCH (08:01)
[2021-12-06] MEDS: FAMOTIDINE 20 MG TAB PO SCH (08:01)
[2021-12-06] MEDS: ACETAMINOPHEN 325 MG TAB PO PRN (08:04)
--- NOTE | 2021-12-06 12:11 | Cardiology Progress Note ---
Date of Service December 06, 2021 Assessment & Plan (1) Abnormal ECG: (2) Chest pain: (3) S/P aortic valve replacement: (4) Acute on chronic diastolic heart failure due to valvular disease: Plan Patient presenting with substernal chest pressure, waxing/waning over several days, associated with abnormal EKG with diffuse ST/T wave abnormality in inferior and anterolateral leads. cardiac HS troponin without significant elevation or change from previous. Echo revealed preserved EF with worsening of bioprosthetic aortic stenosis compared to prior echo. Chest xray with possible mild vascular congestion. Symptoms consistent due to HFpEF due to valvular heart disease. Symptoms improved after several doses of IV furosemide. Stable labs today. Improved symptoms. will discharge on furosemide 20 mg daily. Continue low dose metoprolol 12.5 mg daily. Continue ASA and digoxin. Likely will need future intervention on aortic valve bioprosthesis. Will arrange outpatient valve clinic appt with [facility]. Information placed in EPIC. Stable for discharge from cardiac perspective. case discussed with Dr. Fontenot Admission and Anticipated Discharge Date Admission Date: December 04, 2021 Supervising Physician Co-Signing Physician Notes 81-year-old female admitted 12/04/2021 with chest discomfort from the cardiology clinic. Treated for acute decompensated heart failure in the setting of progressive bioprosthetic valve stenosis. Improved with diuretic therapy. Requesting discharge. PE: VSS. Gen: NAD, AAOx3. Heart: Regular rhythm. Normal S1-S2. 3/6 medium pitched mid-to-late peaking systolic ejection murmur heard best at the right second intercostal space. Lungs: Clear bilateral, no rales rhonchi or wheeze. Extremities: No edema. A/P: Agree with above PA-C history, physical exam, assessment and plan. Echocardiogram reveals progression of bioprosthetic aortic valve stenosis. Clinically improved with intravenous diuretic therapy. Will discharge on 20 mg of furosemide daily. Outpatient [facility] valve clinic follow-up scheduled. No further inpatient cardiac testing or intervention at this time. Cardiology will sign off. Please call with further concerns/questions. Subjective Patient reports feeling well. Resting in bed comfortably. Reports chest "heaviness'/tightness" improved since admission. Tolerated diuretics yesterday. No chest pain currently. Anxious for discharge. Review of Systems Review of Systems: All systems reviewed & are unremarkable except as noted in HPI & below Physical Exam Constitutional: WD/WN, vitals as above well developed, well nourished, + thin and comfortable; no acute distress Respiratory: normal respiratory effort, lungs clear to auscultation normal respiratory effort; no respiratory distress Auscultation: lungs clear to auscultation bilaterally; no crackles and no rales Cardiovascular: Rate/Rhythm: regular rate and regular rhythm Heart Sounds: + murmur (3/6 systolic) Vessels: + JVD Extremities: no edema Gastrointestinal (Abdomen): normal bowel sounds, soft, nontender, no hepatosplenomegaly Skin: no rashes, warm and dry Neurologic: PERRL, EOMI, accommodation nl, no face palsy, no dysarthria Psychiatric: A+Ox3, euthymic affect Results & Data ([facility]) Vital Signs (Past 12 Hours) Vital Signs Temp Pulse Pulse Resp BP Pulse Ox O2 Del Method 12/06/21 11:22 36.6 C 66 16 101/50 L 95 Room Air 12/06/21 08:54 75 12/06/21 08:00 79 12/06/21 07:22 36.8 C 75 16 105/47 L 95 Room Air 12/06/21 03:24 36.5 C 76 18 105/53 L 91 Room Air Laboratory Results CBC 12/06/21 Range/Units 06:14 WBC 7.68 (4.8-10.8) K/ul RBC 3.81 L (3.93-5.22) M/uL Hgb 12.8 (12.0-16.0) g/dl Hct 37.0 (34.1-44.9) % Plt Count 165 (130-400) K/uL Comprehensive Metabolic Panel 12/06/21 Range/Units 06:14 Sodium 134 L (136-145) mmol/L Potassium 3.8 (3.5-5.1) mmol/L Chloride 100 (98-107) mmol/L Carbon Dioxide 28 (21-32) mmol/L BUN 13 (6-23) mg/dl Creatinine 0.53 L (0.6-1.2) mg/dl Glucose 102 H (70-99(Fasting)) mg/dl Calcium 8.6 (8.5-10.1) mg/dl Intake and Output 12/05/21 12/06/21 12/06/21 22:59 06:59 14:59 Intake Total 120 / 600 Balance 120 / 600 Intake: Oral 120 / 600 Other: Other Intake Source sips sips # Unmeasured Voids 1 Weight 59.2 kg Weight Measurement Method Built in [facility] Diagnostic Findings Telemetry reviewed: NSR in the 60-70 bmp. Medications Administered Current Inpatient Medications Acetaminophen (Acetaminophen 325 Mg Tab) 650 mg PO Q4H PRN PRN Reason: Pain or Fever Stop: 01/03/22 16:40 Last Admin: 12/06/21 08:04 Dose: 650 mg Al Hydrox/Mg Hydrox/Simethicone (Aluminum/Magnesium Susp 30 Ml Udc) 15 ml PO Q4H PRN PRN Reason: Dyspepsia Stop: 01/03/22 16:40 Albuterol (Albuterol Hfa 8 Gm Inhaler) 2 puffs INH Q4H PRN PRN Reason: shortness of breath Stop: 01/03/22 16:40 Aspirin (Aspirin 81 Mg Ectab) 81 mg PO DAILY SALLY Stop: 01/04/22 08:59 Last Admin: 12/06/21 08:00 Dose: 81 mg Digoxin (Digoxin 0.125 Mg Tab) 0.125 mg PO DAILY SALLY Stop: 01/04/22 08:59 Last Admin: 12/06/21 08:00 Dose: 0.125 mg Famotidine (Famotidine 20 Mg Tab) 20 mg PO DAILY SALLY Stop: 01/04/22 08:59 Last Admin: 12/06/21 08:01 Dose: 20 mg Levothyroxine Sodium (Levothyroxine Sodium 112 Mcg Tablet) 112 mcg PO DAILYBB [facility] Stop: 01/04/22 06:29 Last Admin: 12/06/21 05:28 Dose: 112 mcg Magnesium Hydroxide (Magnesium Hydroxide Susp 30 Ml Udc) 30 ml PO Q12H PRN PRN Reason: Constipation Stop: 01/03/22 16:40 Last Admin: 12/05/21 13:12 Dose: 30 ml Melatonin (Melatonin 3 Mg Tab) 3 mg PO HS PRN PRN Reason: Sleep Stop: 01/03/22 22:22 Last Admin: 12/04/21 22:52 Dose: 3 mg Metoprolol Succinate (Metoprolol Succ 25mg Ext Rel Tab) 12.5 mg PO DAILY SALLY Stop: 01/04/22 08:59 Last Admin: 12/06/21 08:01 Dose: 12.5 mg Ondansetron HCl (Ondansetron Inj 2 Mg/Ml 2 Ml Vial) 4 mg IV Q6H PRN PRN Reason: Nausea Stop: 01/03/22 16:40 Polyethylene Glycol (Polyethylene (Miralax) 17 Gm Pack) 17 gm PO DAILY PRN PRN Reason: Constipation Stop: 01/03/22 16:40 Last Admin: 12/05/21 04:40 Dose: 17 gm Umeclidinium/Vilanterol (Umeclidinium/Vilanterol 62.5/25mcg 7 Puffs/Inhaler) 1 puffs INH QAM [facility] Stop: 01/04/22 08:59 Last Admin: 12/06/21 08:01 Dose: 1 puffs
[2021-12-06] MEDS ORDERED: FUROSEMIDE 20 MG TAB PO SCH (13:00)
== END 2021-12-06 15:09 | disposition home or self-care (01) ==
LOC: ED 08:50 → 2E 08:50 → SUATTDRO 11:59 → 2E 15:25

== ENCOUNTER 2021-12-22 21:01 | Inpatient (IN) ==
[2021-12-22] MEDS ORDERED: SODIUM CHLORIDE 0.9% 500 ML IV STA (21:10)
--- NOTE | 2021-12-22 21:39 | Emergency Department Note ---
Impression & Plan Acute GI bleeding, Colitis, Right rib fracture, Lumbar transverse process fracture, Fall ED Provider Note NAME: KARTHIK TATE AGE: 81 SEX: F : 1940 ARRIVES VIA: Walk-In INFORMANT: [Patient][family] ED PROVIDER(S): [Erasto Peña MD] CHIEF COMPLAINT: Rectal bleeding HISTORY OF PRESENT ILLNESS: The patient is an 81-year-old female who fell 2 days ago. She was having some right rib pain and today, was in our ED for imaging. A CT demonstrated 5 rib fractures on the right. Ribs 8 through 12 are broken. She also had an L2 transverse process fracture. Incidentally on CT imaging, there was a potential colitis seen. The patient went home. She states that several hours ago, she began having rectal bleeding. She has had multiple bowel movements that have been quite bloody. She really has minimal abdominal pain. Most of her pain is in the area of the right flank. She is not on anticoagulants. She does have a history of Crohn's and has had a partial colectomy. She has had lower GI bleeding before requiring intervention. The patient did show me photos of today's bloody bowel movements. REVIEW OF SYSTEMS: See HPI for pertinent positives and negatives. A total of ten systems were reviewed and were otherwise negative. PMHx/PSHx: See Below SOCIAL HISTORY: See Below. PHYSICAL EXAM: GENERAL: Patient is in no acute distress. HEENT: No acute trauma, normocephalic atraumatic, mucous membranes moist, no nasal congestion, no scleral icterus. NECK: No stridor, no adenopathy, no meningismus, trachea is midline. LUNGS: Clear to auscultation bilaterally, no wheeze, no rhonchi, breath sounds equal. HEART: 4/6 systolic murmur, regular rate and rhythm. ABDOMEN: Soft, nontender, bowel sounds positive, no peritonitis. EXTREMITIES: No cyanosis or edema, full range of motion of all the joints without pain or difficulty, no signs for acute trauma. NEUROLOGIC: Oriented x 3, no acute motor or sensory deficits, no focal weakness. SKIN: No rash, no jaundice, no diaphoresis. DIFFERENTIAL DIAGNOSIS: Diverticulosis, AVM, coagulopathy, colitis, inflammatory bowel disease, malignancy, Tammie-Churchill tear, esophagitis, peptic ulcer disease, variceal bleed, gastritis, epistaxis, fissure, hemorrhoids, as well as other pathologies. EMERGENCY DEPARTMENT COURSE/PROCEDURES: ECG: Indication was GI bleeding. The ECG shows a normal sinus rhythm with some sinus arrhythmia. The rate is 88. There is some baseline artifact. There is ST depression across the anterior and lateral leads. There is no ST elevation. QTc is 411. Compared to an ECG from 22 December 2021, earlier today, I see no significant change. Continuous Cardiac Monitoring: An order was placed for continuous cardiac monitoring. The monitor shows a rate of 99 with normal sinus rhythm. MEDICAL DECISION MAKING: There is a mild leukocytosis, this certainly could be consistent with infection or possibly just the stress of her presentation. Hemoglobin was 11.4. Slightly lower than earlier but certainly stable. There was a normal platelet count. No coagulopathy. A mild hyponatremia was noted. No renal failure. No concerning liver enzyme elevation. ECG showed a normal sinus rhythm, no ST elevation. The ECG compared to previous ECGs appeared unchanged. Cardiac enzyme testing x1 was slightly elevated, the patient carries a history of a mild chronic troponin elevation. There was no evidence for pancreatitis. Digoxin level was not toxic. COVID test was negative. Chest film showed the right sided rib fractures previously identified. No pneumothorax. Abdominal and pelvis CT demonstrated colitis. No bowel obstruction. The patient was not able to p rovide a stool sample for testing while here in the ED. Patient received IV saline, 500 cc, she is resting comfortably. She did not want anything for pain. Given the acute GI bleeding, given her past history of GI bleeding requiring cauterization, given the rib fractures and transverse process fracture, I do think a hospital stay is warranted. I did speak with the patient and family, the on-call hospitalist was consulted. Case management has been involved. Past Med/Surg History Medical History Acute on chronic diastolic heart failure due to valvular disease Atrial flutter Cardiac murmur Carotid artery occlusion Cervical facet joint syndrome Cervical spondylosis Cervicogenic headache Chondrosarcoma (Unknown) S/P resection COPD (chronic obstructive pulmonary disease) Crohn disease Crohn's colitis Crohns disease Diverticulitis Former smoker History of thyroidectomy (Unknown) History of total hysterectomy (Unknown) "2001 " Hyperlipidemia Hypothyroidism Intracranial meningioma (Unknown) Meningioma Osteoarthritis Rectal bleeding Spinal stenosis Stenosis of aorta Ulcerative colitis Valvular heart disease Surgical History History of appendectomy History of thoracic surgery S/P aortic valve replacement S/P colon resection Family History Mother Coronary heart disease Father Coronary heart disease Social History Smoking Status: Former smoker Second Hand Exposure: No; Hx Alcohol Use: Yes Alcohol type: beer Alcohol type Comment: 2 reagan lights a day Hx Substance Use: No Preferred Language: Cambodian Communication Ability: Effective Quahogger Required: No Beliefs That Will Affect Care: None Current Living Situation: Alone Current Living Situation Comment: Independent, still drives Feels Safe at Home: Yes Assistive Devices: None Allergies Allergies Allergy/AdvReac Type Severity Reaction Status Date / Time Penicillins Allergy Intermediate HIVES Verified 11/12/21 22:54 Home Meds Home Medications Medication Instructions Recorded Confirmed acetaminophen 650 mg 2 tab PO BID PRN Pain 04/12/18 12/04/21 tablet,extended release (Tylenol Arthritis Pain) levothyroxine 112 mcg capsule 112 mcg PO DAILY 04/12/18 12/04/21 albuterol sulfate 90 mcg/actuation 2 puff inhalation Q4H PRN 09/23/18 12/04/21 aerosol inhaler shortness of breath naproxen 500 mg tablet 500 mg PO BIDM PRN Pain 10/23/21 12/04/21 famotidine 20 mg tablet 20 mg PO DAILY 11/12/21 12/04/21 metoprolol succinate 25 mg 12.5 mg PO DAILY 11/12/21 12/04/21 tablet,extended release 24 hr umeclidinium 62.5 mcg-vilanterol 1 inh inhalation QAM 11/12/21 12/04/21 25 mcg/actuation powdr for inhalation (Anoro Ellipta) Oxygen Home 12/04/21 12/04/21 Previous Rx's Medication Instructions Recorded digoxin 125 mcg (0.125 mg) tablet 0.125 mg PO DAILY@1600 #30 tabs 09/27/18 furosemide 20 mg tablet 20 mg PO QAM #30 tabs 12/06/21 mesalamine 1.2 gram tablet,delayed 4.8 g PO DAILY 30 days #120 tabs 12/06/21 release oxycodone 5 mg tablet 5 mg PO Q8H PRN pain #31 tabs 12/22/21 Results & Data (ED) Vital Signs Vital Signs - 24 hr 12/22/21 21:04 12/22/21 22:03 12/22/21 22:00 Temperature 37.6 C H Temperature Source Temporal Artery Scan Pulse Rate 99 H 83 85 Pulse Rate from SpO2 Sensor 86 Respiratory Rate 18 19 18 Blood Pressure 112/70 115/58 L Blood Pressure Mean 84 77 Blood Pressure Position Sitting Pulse Oximetry 93 95 95 Oxygen Delivery Method Room Air Room Air Room Air Sepsis Recent Fever Within 48 Hours No Sepsis New/Unexplained Change in Mental Status N/A Sepsis Action Taken by Nursing No Action Required 12/22/21 23:00 12/23/21 00:00 Temperature Temperature Source Pulse Rate 88 86 Pulse Rate from SpO2 Sensor 88 86 Respiratory Rate 19 24 Blood Pressure 115/54 L 114/69 Blood Pressure Mean 74 84 Blood Pressure Position Pulse Oximetry 93 94 Oxygen Delivery Method Room Air Room Air Sepsis Recent Fever Within 48 Hours Sepsis New/Unexplained Change in Mental Status Sepsis Action Taken by Long-Term Medications Current Medication List: was personally reviewed by me Laboratory Data Attestation: I reviewed the patient's lab results. Result diagrams: 12/22/21 21:28 12/22/21 21:28 Lab Results 12/22/21 12/22/21 12/22/21 Range/Units 21:25 21:28 21:28 WBC 12.37 H (4.8-10.8) K/ul RBC 3.43 L (3.93-5.22) M/uL Hgb 11.4 L (12.0-16.0) g/dl Hct 34.4 (34.1-44.9) % MCV 100.3 H (80.0-100.0) fL MCH 33.2 (25.0-34.0) pg MCHC 33.1 (32.0-36.0) g/dL RDW Std Deviation 45.5 (36.4-46.3) fL RDW Coeff of Brendon 12.5 (11.5-14.5) % Plt Count 172 (130-400) K/uL MPV 8.5 L (9.4-12.3) fL Immature Gran % (Auto) 0.6 % Neut % (Auto) 73.3 % Lymph % (Auto) 15.0 % Bailey % (Auto) 8.9 % Eos % (Auto) 1.6 % Baso % (Auto) 0.6 % Neut # (Auto) 9.07 H (1.4-6.5) K/uL Lymph # (Auto) 1.86 (1.2-3.4) K/uL Bailey # (Auto) 1.10 H (0.24-0.82) K/uL Eos # (Auto) 0.20 (0-0.50) K/uL Baso # (Auto) 0.07 (0-0.2) K/uL Immature Gran # (Auto) 0.07 H (0.00-0.02) K/uL PT 10.9 (9.0-12.0) Seconds INR 1.0 (0.9-1.1) APTT 25.9 (21.0-31.0) Seconds PTT Ratio 0.9 Sodium (136-145) mmol/L Potassium (3.5-5.1) mmol/L Chloride (98-107) mmol/L Carbon Dioxide (21-32) mmol/L Anion Gap (3-11) BUN (6-23) mg/dl Creatinine (0.6-1.2) mg/dl Est Cr Clr Drug Dosing ml/min Est GFR ( Amer) ml/min Est GFR (Non-Af Amer) ml/min BUN/Creatinine Ratio (10-20) Glucose (70-99(Fasting)) mg/dl Calcium (8.5-10.1) mg/dl Total Bilirubin (0.2-1.0) mg/dl AST (13-39) U/L ALT (7-52) U/L Alkaline Phosphatase (34-104) U/L Troponin I High Sens (0-14) pg/ml Total Protein (6.0-8.3) gm/dl Albumin (3.4-5.0) gm/dl Globulin (2.5-4.0) gm/dl Albumin/Globulin Ratio (0.9-2) Lipase (11-82) U/L Digoxin (0.8-2.0) ng/ml SARS-CoV-2, RNA, NAAT (NEGATIVE) Blood Type O Negative Antibody Screen NEGATIVE 12/22/21 12/22/21 12/22/21 Range/Units 21:28 21:28 22:46 WBC (4.8-10.8) K/ul RBC (3.93-5.22) M/uL Hgb (12.0-16.0) g/dl Hct (34.1-44.9) % MCV (80.0-100.0) fL MCH (25.0-34.0) pg MCHC (32.0-36.0) g/dL RDW Std Deviation (36.4-46.3) fL RDW Coeff of Brendon (11.5-14.5) % Plt Count (130-400) K/uL MPV (9.4-12.3) fL Immature Gran % (Auto) % Neut % (Auto) % Lymph % (Auto) % Bailey % (Auto) % Eos % (Auto) % Baso % (Auto) % Neut # (Auto) (1.4-6.5) K/uL Lymph # (Auto) (1.2-3.4) K/uL Bailey # (Auto) (0.24-0.82) K/uL Eos # (Auto) (0-0.50) K/uL Baso # (Auto) (0-0.2) K/uL Immature Gran # (Auto) (0.00-0.02) K/uL PT (9.0-12.0) Seconds INR (0.9-1.1) APTT (21.0-31.0) Seconds PTT Ratio Sodium 134 L (136-145) mmol/L Potassium 3.8 (3.5-5.1) mmol/L Chloride 102 (98-107) mmol/L Carbon Dioxide 23 (21-32) mmol/L Anion Gap 9 (3-11) BUN 23 (6-23) mg/dl Creatinine 0.83 D (0.6-1.2) mg/dl Est Cr Clr Drug Dosing 48.8 ml/min Est GFR ( Amer) 76.1 ml/min Est GFR (Non-Af Amer) 65.7 ml/min BUN/Creatinine Ratio 27.7 H (10-20) Glucose 104 H (70-99(Fasting)) mg/dl Calcium 8.7 (8.5-10.1) mg/dl Total Bilirubin 0.9 (0.2-1.0) mg/dl AST 18 (13-39) U/L ALT 10 (7-52) U/L Alkaline Phosphatase 79 (34-104) U/L Troponin I High Sens 26.0 H (0-14) pg/ml Total Protein 6.7 (6.0-8.3) gm/dl Albumin 3.7 (3.4-5.0) gm/dl Globulin 3.0 (2.5-4.0) gm/dl Albumin/Globulin Ratio 1.2 (0.9-2) Lipase 30 (11-82) U/L Digoxin 0.4 L (0.8-2.0) ng/ml SARS-CoV-2, RNA, NAAT NEGATIVE (NEGATIVE) Blood Type Antibody Screen Administered Medications Discontinued Medications Sodium Chloride (Nss) 500 mls @ 999 mls/hr IV .Q31M STA Stop: 12/22/21 21:40 Last Infusion: 12/22/21 22:53 Dose: 0 mls/hr Documented By: Admin: 12/22/21 22:01 Dose: 999 mls/hr Documented By: ARPIT Ioversol (Optiray 320 100ml) 95 ml IV ONCE ONE Stop: 12/22/21 22:56 Last Admin: 12/22/21 22:56 Dose: 95 ml Documented By: CATHY Imaging Data Attestation: I personally reviewed and interpreted this imaging study as follows: My Impression: Chest x-ray: The patient has some right-sided rib fractures. There are some chronic changes noted on the left. No pneumothorax. Mild cardiomegaly. Film appears basically unchanged from the previous films. Radiologist's Impression: Abdominal and pelvis CT with contrast: There is a short segment of the sigmoid colon showing mild thickening and surrounding edema. This is near the previous anastomosis. This is consistent with a colitis. No free air, no free fluid. No bowel obstruction. 8 mm probable hemangioma in the left lobe of the liver. Discharge Plan Visit Data Chief Complaint: Rectal Bleed Stated Complaint: DEFACTING BLOOD ED Provider: Erasto Peña Discharge Problem: Acute GI bleeding, Colitis, Right rib fracture, Lumbar transverse process fracture, Fall Patient Disposition: Admitted As Inpatient Condition: Fair Forms Stand Alone Forms: My [facility] Prescriptions Prescriptions: No Action acetaminophen [Tylenol Arthritis Pain] 650 mg Tablet Extended Release 2 tab PO BID PRN (Reason: Pain) levothyroxine 112 mcg Capsule 112 mcg PO DAILY albuterol sulfate 90 mcg/actuation Hfa Aerosol Inhaler 2 puff INHALATION Q4H PRN (Reason: shortness of breath) digoxin 125 mcg Tablet 0.125 mg PO DAILY@1600 Qty: 30 0RF famotidine 20 mg tablet 20 mg PO DAILY metoprolol succinate 25 mg tablet extended release 24 hr 12.5 mg PO DAILY Anoro Ellipta 62.5-25 mcg/actuation blister with device 1 inh INHALATION QAM naproxen 500 mg Tablet 500 mg PO BIDM PRN (Reason: Pain) (DME) Oxygen Home furosemide 20 mg Tablet 20 mg PO QAM Qty: 30 0RF mesalamine 1.2 gram tablet,delayed release (DR/EC) 4.8 g PO DAILY 30 Days Qty: 120 0RF oxycodone 5 mg tablet 5 mg PO Q8H PRN (Reason: pain) Qty: 31 0RF Referrals Referrals: Yahir Collado PA-C [Primary Care Provider] -
[2021-12-22 21:46] LABS: Basophils # (auto) 0.07 K/uL (0-0.2); Basophils % (auto) 0.6 %; Eosinophils % (auto) 1.6 %; Hematocrit (blood only) 34.4 % (34.1-44.9); Hemoglobin 11.4 g/dl (12.0-16.0); Immature Granulocytes # (auto) 0.07 K/uL (0.00-0.02); Immature Granulocytes % (auto) 0.6 %; Lymphocytes # (auto) 1.86 K/uL (1.2-3.4); Mean Corpuscular Hemoglobin 33.2 pg (25.0-34.0); Mean Corpuscular Hgb Conc 33.1 g/dL (32.0-36.0); Mean Corpuscular Volume 100.3 fL (80.0-100.0); Mean Platelet Volume 8.5 fL (9.4-12.3); Monocytes % (auto) 8.9 %; Neutrophils # (auto) 9.07 K/uL (1.4-6.5); Neutrophils % (auto) 73.3 %; Platelet Count 172 K/uL (130-400); RDW Coefficient of Variation 12.5 % (11.5-14.5); RDW Standard Deviation 45.5 fL (36.4-46.3); Red Blood Count 3.43 M/uL (3.93-5.22); White Blood Count 12.37 K/ul (4.8-10.8)
[2021-12-22 22:04] LABS: Partial Thromboplastin Ratio 0.9; Partial Thromboplastin Time 25.9 Seconds (21.0-31.0); Prothrombin Time 10.9 Seconds (9.0-12.0)
[2021-12-22 22:18] LABS: Albumin Globulin Ratio 1.2 (0.9-2); Albumin Level 3.7 gm/dl (3.4-5.0); BUN Creatinine Ratio 27.7 (10-20); Bilirubin,Total 0.9 mg/dl (0.2-1.0); Calcium 8.7 mg/dl (8.5-10.1); Creatinine Clr Calc Pharmacy 48.8 ml/min; Est GFR (African American) 76.1 ml/min; Est GFR (Non-African American) 65.7 ml/min; Potassium 3.8 mmol/L (3.5-5.1); Total Protein 6.7 gm/dl (6.0-8.3)
[2021-12-22] MEDS ORDERED: OPTIRAY 320 100ml IV ONE (22:55)
[2021-12-23] MEDS ORDERED: ACETAMINOPHEN 325 MG TAB PO STA (00:21)
[2021-12-23] MEDS ORDERED: metroNIDAZOLE 500 MG/100 ML BAG IV STA (00:25)
--- NOTE | 2021-12-23 00:25 | History & Physical Report ---
Date of Service December 23, 2021 Assessment & Plan (1) Acute GI bleeding: Plan: Possible infectious colitis given sepsis criteria, rule out C. difficile given recent confinement ? IBD flareup chronic diastolic heart failure (EF 60 to 65%, TTE 2021), patient on the dry side valvular heart disease (mild to moderate MR, mild TR) pulmonary hypertension hx bioprosthetic AVR stenosis PAF, patient NSR hx PVD COPD, lung status at baseline hx meningioma status post gamma knife surgery sternal chondrosarcoma status post surgery chronic hyponatremia hypothyroidism, recent TSH noted to be low with elevated free T4. Troponin elevation past tobacco abuse. Medical telemetry CS, stool C. difficile Ceftriaxone, Flagyl Solu-Medrol 1 dose for now for possible IBD flareup GI consult Re: L GIB Defer additional steroid dosing if warranted to GI service Follow-up H&H, transfuse PRBC if hemoglobin less than 7 and or for symptomatic anemia Follow troponin Decrease maintenance levothyroxine dose from 112 to 100 mcg daily, recheck TSH next month. DVT prophylaxis. SCDs Re: L GIB Full code Text document was generated using [employer] voice recognition software. It may contain grammatical or spelling errors. Kindly contact undersigned for clarification of any documentation item in question. History of Present Illness Chief Complaint: Lower GI bleed Primary Care Provider: Dr. Sellers History obtained from patient and records. Medical history significant for chronic diastolic heart failure (EF 60 to 65%, TTE 2021), valvular heart disease (mild to moderate MR, mild TR), pulmonary hypertension, PAF, bioprosthetic AVR stenosis, PVD, COPD, RLS, Crohn's disease, meningioma status post gamma knife surgery, sternal chondrosarcoma status post surgery, chronic hyponatremia, hypothyroidism, past tobacco abuse. Last confinement 2 weeks ago for atypical chest pain, decompensated heart failure During confinement, patient with hematochezia. EPEC PCR positive on testing. GI recommended resuming patient's mesalamine. Outpatient EGD colonoscopy next month if patient cardiac issues stable. 3 nights ago, patient jocelyn over a pillow ed leading to a fall with subsequent hitting the right side of the ribs. Pleuritic right-sided chest pain without shortness of breath. Patient consulted urgent care center 2 days ago. Patient found to have nondisplaced right ninth and 10th rib fractures. Pain medications prescribed by PCP. Yesterday, patient noted rectal bleeding about 4 episodes with worsening right- sided abdominal pain. No emesis. Some chills. Usual chest pain, shortness of breath from right-sided rib fractures. Patient brought to the ER for evaluation. 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 Allergies Allergy/AdvReac Type Severity Reaction Status Date / Time Penicillins Allergy Intermediate HIVES Verified 11/12/21 22:54 Home Medications Medication Instructions Recorded Confirmed Type acetaminophen 650 mg 2 tab PO BID PRN Pain 04/12/18 12/23/21 History tablet,extended release (Tylenol Arthritis Pain) levothyroxine 112 mcg capsule 112 mcg PO DAILY 04/12/18 12/23/21 History albuterol sulfate 90 mcg/actuation 2 puff inhalation Q4H PRN 09/23/18 12/23/21 History aerosol inhaler shortness of breath digoxin 125 mcg (0.125 mg) tablet 0.125 mg PO DAILY@1600 #30 tabs 09/27/18 12/23/21 Rx metoprolol succinate 25 mg 12.5 mg PO DAILY 11/12/21 12/23/21 History tablet,extended release 24 hr umeclidinium 62.5 mcg-vilanterol 1 inh inhalation QAM 11/12/21 12/23/21 History 25 mcg/actuation powdr for inhalation (Anoro Ellipta) Oxygen Home 12/04/21 12/23/21 History furosemide 20 mg tablet 20 mg PO QAM #30 tabs 12/06/21 12/23/21 Rx mesalamine 1.2 gram tablet,delayed 4.8 g PO DAILY 30 days #120 tabs 12/06/21 12/23/21 Rx release oxycodone 5 mg tablet 5 mg PO Q8H PRN pain #31 tabs 12/22/21 12/23/21 Rx gabapentin 100 mg capsule 100 mg PO DAILY 12/23/21 12/23/21 History Past Med/Surg History Medical History Acute on chronic diastolic heart failure due to valvular disease Atrial flutter Cardiac murmur Carotid artery occlusion Cervical facet joint syndrome Cervical spondylosis Cervicogenic headache Chondrosarcoma (Unknown) S/P resection COPD (chronic obstructive pulmonary disease) Crohn disease Crohn's colitis Crohns disease Diverticulitis Former smoker History of thyroidectomy (Unknown) History of total hysterectomy (Unknown) "2001 " Hyperlipidemia Hypothyroidism Intracranial meningioma (Unknown) Meningioma Osteoarthritis Rectal bleeding Spinal stenosis Stenosis of aorta Ulcerative colitis Valvular heart disease Surgical History History of appendectomy History of thoracic surgery S/P aortic valve replacement S/P colon resection Family History Mother Coronary heart disease Father Coronary heart disease Social History Smoking Status: Former smoker Second Hand Exposure: No; Hx Alcohol Use: Yes Alcohol type: beer Alcohol type Comment: 2 reagan lights a day Hx Substance Use: No Preferred Language: Italian Communication Ability: Effective Manager Labor Delivery Required: No Beliefs That Will Affect Care: None Current Living Situation: Alone Current Living Situation Comment: Independent, still drives Other Information That Helps Us Care for You: No Feels Safe at Home: Yes Safety Concerns: Feels Safe At This Time Assistive Devices: None Review of Systems Review of Systems: As per HPI, all other systems reviewed and negative Physical Exam Physical Exam: GENERAL: Slightly anxious, slightly uncomfortable, no respiratory distress SKIN: Pallor, warm HEENT: Pale palpebral conjunctivae, no ptosis, dry buccal mucosa NECK : Supple, no tenderness CHEST : Decreased breath sounds, right chest wall tenderness HEART : RRR, systolic murmur ABDOMEN: no distention, hypogastric tenderness EXTREMITIES : No LE swelling/tenderness, no other conspicuous deformities noted NEUROLOGIC : Coherent, no facial asymmetry, no other gross focality Results & Data Results & Data ([facility]) Vital Signs (Past 12 Hours) Vital Signs Temp Pulse Resp BP Pulse Ox O2 Del Method 12/23/21 00:00 86 24 114/69 94 Room Air 12/22/21 23:00 88 19 115/54 L 93 Room Air 12/22/21 22:00 85 18 115/58 L 95 Room Air 12/22/21 22:03 83 19 95 Room Air 12/22/21 21:04 37.6 C H 99 H 18 112/70 93 Room Air Laboratory Results Laboratory Results WBC 12.37 K/ul (4.8-10.8) H 12/22/21 21: RBC 3.43 M/uL (3.93-5.22) L 12/22/21 21: Hgb 11.4 g/dl (12.0-16.0) L 12/22/21 21: Hct 34.4 % (34.1-44.9) 12/22/21 21: MCV 100.3 fL (80.0-100.0) H 12/22/21 21: MCH 33.2 pg (25.0-34.0) 12/22/21 21: MCHC 33.1 g/dL (32.0-36.0) 12/22/21: RDW Std Deviation 45.5 fL (36.4-46.3) 12/22/21: RDW Coeff of Brendon 12.5 % (11.5-14.5) 12/22/21: Plt Count 172 K/uL (130-400) 12/22/21 21: MPV 8.5 fL (9.4-12.3) L 12/22/21: Immature Gran % (Auto) 0.6 % 12/22/21: Neut % (Auto) 73.3 % 12/22/21: Lymph % (Auto) 15.0 % 12/22/21: [place] % (Auto) 8.9 % 12/22/21: Eos % (Auto) 1.6 % 12/22/21: Baso % (Auto) 0.6 % 12/22/21: Neut # (Auto) 9.07 K/uL (1.4-6.5) H 12/22/21: Lymph # (Auto) 1.86 K/uL (1.2-3.4) 12/22/21: [place] # (Auto) 1.10 K/uL (0.24-0.82) H 12/22/21 21: Eos # (Auto) 0.20 K/uL (0-0.50) 12/22/21 21:28 Baso # (Auto) 0.07 K/uL (0-0.2) 12/22/21 21: Immature Gran # (Auto) 0.07 K/uL (0.00-0.02) H 12/22/21 21: PT 10.9 Seconds (9.0-12.0) 12/22/21: INR 1.0 (0.9-1.1) 12/22/21 21: APTT 25.9 Seconds (21.0-31.0) 12/22/21 21: PTT Ratio 0.9 12/22/21 21: Sodium 134 mmol/L (136-145) L 12/22/21: Potassium 3.8 mmol/L (3.5-5.1) 12/22/21: Chloride 102 mmol/L (98-107) 12/22/21: Carbon Dioxide 23 mmol/L (21-32) 12/22/21: Anion Gap 9 (3-11) 12/22/21 21: BUN 23 mg/dl (6-23) 12/22/21 21: Creatinine 0.83 mg/dl (0.6-1.2) D 12/22/21: Est Cr Clr Drug Dosing 48.8 ml/min 12/22/21 21:28 Est GFR ( Amer) 76.1 ml/min 12/22/21 21: Est GFR (Non-Af Amer) 65.7 ml/min 12/22/21 21: BUN/Creatinine Ratio 27.7 (10-20) H 12/22/21 21: Glucose 104 mg/dl (70-99(Fasting)) H 12/22/21 21: Calcium 8.7 mg/dl (8.5-10.1) 12/22/21: Total Bilirubin 0.9 mg/dl (0.2-1.0) 12/22/21 21: AST 18 U/L (13-39) 12/22/21 21: ALT 10 U/L (7-52) 12/22/21 21: Alkaline Phosphatase 79 U/L (34-104) 12/22/21 21:28 Troponin I High Sens 26.0 pg/ml (0-14) H 12/22/21 21:28 Total Protein 6.7 gm/dl (6.0-8.3) 12/22/21 21: Albumin 3.7 gm/dl (3.4-5.0) 12/22/21 21: Globulin 3.0 gm/dl (2.5-4.0) 12/22/21 21: Albumin/Globulin Ratio 1.2 (0.9-2) 12/22/21 21: Lipase 30 U/L (11-82) 12/22/21 21: Digoxin 0.4 ng/ml (0.8-2.0) L 12/22/21 22:46 SARS-CoV-2, RNA, NAAT NEGATIVE (NEGATIVE) 12/22/21 21: Blood Type O Negative 12/22/21 21: Antibody Screen NEGATIVE 12/22/21 21:[address] abdomen pelvis initial read: Short segment of the sigmoid colon showing mild thickening and surrounding edema. This is near a previous anastomosis. This is consistent with a nonspecific colitis. Diverticula are not clearlyseen in the region. No free intraperitoneal air or fluid. No evidence of bowel obstruction. 18 mmprobable hemangioma in the left lobe of the liver. EKG as per my interpretation : 90, NSR, normal axis, T wave abnormality septal leads
[2021-12-23] MEDS ORDERED: cefTRIAXone SODIUM 1,000 MG in DEXTROSE 5% 50 ML IV STA (00:35)
[2021-12-23] MEDS ORDERED: SODIUM CHLORIDE 0.9% 1000ML 1,000 ML IV ONE (01:08)
[2021-12-23] MEDS ORDERED: oxyCODONE HCL IR 5 MG TAB (IMMEDIATE RELEASE) PO STA (01:08)
[2021-12-23 01:18] LABS: Hematocrit (blood only) 31.2 % (34.1-44.9); Hemoglobin 10.3 g/dl (12.0-16.0)
[2021-12-23] MEDS ORDERED: LORazepam 0.25 MG in SYRINGE 0.25 ML IV PRN (02:21)
[2021-12-23] MEDS ORDERED: PROMETHAZINE HCL 6.25 MG in SODIUM CHLORIDE 0.9% 50 ML IV PRN (02:21)
[2021-12-23] MEDS ORDERED: MoRPHine SULFATE 2 MG/ML CARP IV PRN (02:21)
[2021-12-23] MEDS ORDERED: ACETAMINOPHEN 325 MG TAB PO PRN (02:21)
[2021-12-23] MEDS ORDERED: methylPREDNISolone 20 MG in SYRINGE 0 ML IV ONE (02:50)
[2021-12-23] MEDS: MELATONIN 3 MG TAB PO PRN ×2 (02:54→21:10)
[2021-12-23] MEDS ORDERED: LEVOTHYROXINE SODIUM 112 MCG TABLET PO SCH (06:30)
[2021-12-23 06:45] LABS: Basophils # (auto) 0.04 K/uL (0-0.2); Basophils % (auto) 0.5 %; Eosinophils # (auto) 0.05 K/uL (0-0.50); Eosinophils % (auto) 0.6 %; Hematocrit (blood only) 30.7 % (34.1-44.9); Hemoglobin 10.3 g/dl (12.0-16.0); Immature Granulocytes # (auto) 0.04 K/uL (0.00-0.02); Immature Granulocytes % (auto) 0.5 %; Lymphocytes # (auto) 1.26 K/uL (1.2-3.4); Lymphocytes % (auto) 15.3 %; Mean Corpuscular Hemoglobin 32.9 pg (25.0-34.0); Mean Corpuscular Hgb Conc 33.6 g/dL (32.0-36.0); Mean Corpuscular Volume 98.1 fL (80.0-100.0); Mean Platelet Volume 8.7 fL (9.4-12.3); Monocytes # (auto) 0.22 K/uL (0.24-0.82); Monocytes % (auto) 2.7 %; Neutrophils % (auto) 80.4 %; Platelet Count 153 K/uL (130-400); RDW Coefficient of Variation 12.5 % (11.5-14.5); Red Blood Count 3.13 M/uL (3.93-5.22); White Blood Count 8.21 K/ul (4.8-10.8)
[2021-12-23 06:52] LABS: Appearance Urine Clear (Clear); Bacteria Urine Automated Negative (Negative); Bilirubin Urine Negative (Negative); Blood Urine 1+ (Negative); Cast Urine Automated 0 /lpf (0-5); Color Urine Yellow; Epithelial Cell Urine Auto >30 /lpf (0-5); Glucose Urine UA Negative (Negative); Ketones Urine Negative (Negative); Leukocyte Esterase Urine 1+ (Negative); Nitrite Urine Negative (Negative); Protein Urine Trace (Negative); RBC Urine Automated 0-4 /hpf (0-4); Specific Gravity Urine > 1.045 (1.000-1.030); Urobilinogen Urine Negative (Negative); WBC Urine Automated >30 /hpf (0-5)
[2021-12-23 07:03] LABS: BUN Creatinine Ratio 32.1 (10-20); Calcium 8.2 mg/dl (8.5-10.1); Creatinine Clr Calc Pharmacy 69.2 ml/min; Est GFR (African American) 100.6 ml/min; Est GFR (Non-African American) 86.8 ml/min; Potassium 4.1 mmol/L (3.5-5.1)
--- NOTE | 2021-12-23 07:49 | CT Scan Report ---
CT SCAN OF THE ABDOMEN AND PELVIS WITH IV CONTRAST CLINICAL HISTORY: GI bleeding. Diarrhea appear COMPARISON STUDY: Abdominal CT performed earlier the same day 12/22/2021 and 11/12/2021. TECHNIQUE: Following the IV administration of 95 cc of Optiray 320, CT scan of the abdomen and pelvi s is performed from the lung bases to the proximal femora. Images are reviewed in the axial, sagittal , and coronal planes. IV contrast was administered without complication. A dose lowering technique wa s utilized adhering to the principles of ALARA. CT DOSE: 243.68 mGy.cm FINDINGS: Lung bases: The heart is mildly enlarged and without pericardial effusion. The coronary arteries and mitral annulus are densely calcified. The lung bases are clear noting bibasilar scarring/atelectasis. Liver: The contrast-enhanced liver is normal in size, contour, and attenuation. There is no intrahepa tic biliary ductal dilatation. The hepatic veins and portal veins are patent. Left lobe hemangiomas m easure up to 2.0 cm. Gallbladder: Unremarkable. Spleen: Normal in size and attenuation. Pancreas: Moderately atrophic and grossly unremarkable. Adrenal glands: Unremarkable. Kidneys: The contrast enhanced kidneys demonstrate cortical atrophy and are without hydronephrosis. T he kidneys enhance symmetrically. A 3.8 cm cyst is noted on the left and a 1.5 cm exophytic cyst is s een on the right. Abdominal vasculature: The abdominal aorta is normal in course and caliber noting mild atheroscleroti c calcification. Bowel: There is postoperative change from sigmoid colon resection with colocolonic anastomosis. No george wel obstruction is seen. There is wall thickening and mucosal hyperemia with surrounding inflammation involving the right colon consistent with a nonspecific colitis. Inflammatory changes also seen invo lving the sigmoid colon, greatest around the anastomosis. The cecum is located in the pelvis. The zhou endix is not identified and reported surgically absent. Peritoneum: There is no intraperitoneal free air or abdominal ascites. Lymphadenopathy: None. Pelvic viscera: The bladder is partially decompressed and grossly unremarkable. The uterus is surgica lly absent. No adnexal lesion is seen. Skeletal structures: The skeletal structures are osteopenic. There are acute right posterior 11th and 12th rib fractures. There are acute right lateral 8th through 10th rib fractures. There is an acute fracture of the right transverse process of L2. The bony pelvis and proximal femora appear intact. Th ere is a mild chronic superior endplate compression deformity of T12. Moderate lumbosacral spondylosi s is observed. No lytic or blastic lesions are seen. IMPRESSION: 1. Acute right-sided rib fractures and an acute right transverse process fracture of L2 as above. Thi s is unchanged from today's earlier examination. 2. There is evidence of a nonspecific colitis. This is also unchanged from today's earlier examinatio n. 3. There is no evidence of solid organ injury in the abdomen or pelvis. 4. Additional findings as above. ACT 112: Negative or not required by law. Electronically signed by: Erasto Bhakta M.D. 12/23/2021 7:48 AM
--- NOTE | 2021-12-23 08:16 | XRay Report ---
SINGLE VIEW CHEST CLINICAL HISTORY: GI bleeding. FINDINGS: An AP, portable, upright chest radiograph is compared to study performed earlier the same d ay 12/22/2021. The patient is status post midline sternotomy and cardiac valve surgery. The heart is e nlarged noting atherosclerotic calcification of the thoracic aorta. The pulmonary vasculature is nonc ongested. Chronic interstitial thickening is similar to previous. Scarring/atelectasis is noted at george th lung bases, left greater than right. No airspace consolidation or large pleural effusion is identi fied. No pneumothorax is seen. The skeletal structures are osteopenic. Acute right-sided rib fracture s are again noted. IMPRESSION: 1. Cardiomegaly with no acute cardiopulmonary abnormality identified. 2. Right-sided rib fractures are again noted. ACT 112: Negative or not required by law. Electronically signed by: Erasto Bhakta M.D. 12/23/2021 8:14 AM
[2021-12-23] MEDS: METOPROLOL SUCC 25MG EXT REL TAB PO SCH (08:22)
[2021-12-23] MEDS: UMECLIDINIUM/VILANTEROL 62.5/25MCG 7 PUFFS/INHALER INH SCH (08:23)
[2021-12-23] MEDS: metroNIDAZOLE 500 MG/100 ML BAG IV SCH ×2 (09:46→17:03)
--- NOTE | 2021-12-23 10:55 | Cardiology Consultation ---
Date of Consultation December 23, 2021 Assessment & Plan (1) Acute GI bleeding: (2) Colitis: (3) Prosthetic aortic valve stenosis: 81-year-old female with history of bioprosthetic aortic valve replacement performed in 2009, and recent echocardiogram findings suggestive of severe prosthetic aortic valve stenosis, peak CW velocity at time of echo 12/04/2021 4.13 m/s, mean gradient 42 mmHg, calculated aortic valve area 0.4-0.5 cm. Patient presents off of anticoagulation, with abdominal pain, and bright red blood per rectum, findings concerning for colitis. EKG performed on arrival reveals sinus rhythm with mild repolarization changes in the inferior and lateral leads. Chronic T wave inversion noted in lead V2. Per review of her recent historical EKG tracings, EKG is relatively unchanged compared to October, and in November, admissions, in the past, intermittent repolarization changes have been noted usually when she is tachycardic. Of note, patient is on digoxin on a chronic basis, level as obtained at time of presentation is reassuring, without suggestive of toxicity. Her digoxin may ho wever be influencing the ST segments of the EKG. The patient's chest discomfort is consistent with her rib fractures, and I do not think she has presented with an acute coronary syndrome. She has a mild but flat elevation in her troponin which I do not think is unexpected given her history, including her findings of left ventricular hypertrophy on echocardiogram and her degree of noncardiac acute illness. Patient is considered optimized from a cardiac perspective without findings of acute volume overload with regards to sedation for colonoscopy. She is of course considered to be at high risk, but if her blood per rectum and abdominal pain does not improve with conservative measures, I think she would be a reasonable, albeit high risk candidate for colonoscopy. Ultimately, she needs to be optimized from both a rib fracture standpoint and a colitis standpoint in order to allow future valve in valve transcatheter aortic valve implantation. History of Present Illness Attending Physician: Enzo Mark MD History of Present Illness Nereida Stephen is an 81 year old female seen in cardiology consultation per the request of RAJAN Martinez for preprocedure cardiac assessment prior to colonoscopy. Patient recently been hospitalized last month from 12/04/2021 until 12/06/2021 and has been followed by our service for acute on chronic diastolic heart failure due to valvular heart disease. Echocardiogram during hospital stay revealed preserved left ventricular ejection fraction LVEF 60-65%, moderate concentric left ventricular hypertrophy, and what was felt to be severe prosthetic aortic valve stenosis. The estimated pulmonary systolic pressure was elevated, 53 mmHg. Besides following with our group, the patient has followed with [facility] [place] as well as [facility] , and per her description, an upcoming outpatient consultation with [facility] is planned to discuss options, likely valvee in valve TAVR. Three nights prior to her presentation to the ED last night she tripped and fell with resultant right sided ches pain and nondisplaced fractures of the right 9nth and 10nth ribs. On 12/21/21 she had 3-4 episodes of nico blood per rectum with and abdominal pain. Hgb 10.3 g/dl this am compared to 11.9 g/dl on 12/22/21. BP stable compared to her baseline. Her HS troponin levels of 26, 32, and 27.2 are mildly elevated with relative flat trend. 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 2.No coronary disease by preoperative cardiac catheterization, 2009. 3.Chondrosarcoma of the sternum and chest, status post partial resection with redo surgery April 2017 with resection of the mid lower sternum and right costal cartilage with anterior chest wall reconstruction with mesh and pectoral flap 4.Status post meningioma resection via gamma knife, May 2014 no growth on followup 2016 5.History of paroxysmal, Atrial flutter, Anticoagulation discontinued on 03/21/[address] Jordan. 6.Carotid artery occlusion, right. Last duplex 2019 7.COPD 8. Dilated right heart structures with moderate pulmonary hypertension 9.Nocturnal hypoxemia treated with supplemental oxygen, 2 L/min 10.Mechanical fall with left tentorium subdural hematoma identified December 28, 2018 11.History of chronic low back pain and spinal stenosis, prior epidural injections. 12.History of ulcerative colitis/diverticulosis. 13.Hypothyroidism 14.B12 deficiency 15.History of hyponatremia secondary to dehydration and alcohol consumption Allergies Allergy/AdvReac Type Severity Reaction Status Date / Time Penicillins Allergy Intermediate HIVES Verified 11/12/21 22:54 Home Medications Medication Instructions Recorded Confirmed Type acetaminophen 650 mg 2 tab PO BID PRN Pain 04/12/18 12/23/21 History tablet,extended release (Tylenol Arthritis Pain) levothyroxine 112 mcg capsule 112 mcg PO DAILY 04/12/18 12/23/21 History albuterol sulfate 90 mcg/actuation 2 puff inhalation Q4H PRN 09/23/18 12/23/21 History aerosol inhaler shortness of breath digoxin 125 mcg (0.125 mg) tablet 0.125 mg PO DAILY@1600 #30 tabs 09/27/18 12/23/21 Rx metoprolol succinate 25 mg 12.5 mg PO DAILY 11/12/21 12/23/21 History tablet,extended release 24 hr umeclidinium 62.5 mcg-vilanterol 1 inh inhalation QAM 11/12/21 12/23/21 History 25 mcg/actuation powdr for inhalation (Anoro Ellipta) Oxygen Home 12/04/21 12/23/21 History furosemide 20 mg tablet 20 mg PO QAM #30 tabs 12/06/21 12/23/21 Rx mesalamine 1.2 gram tablet,delayed 4.8 g PO DAILY 30 days #120 tabs 12/06/21 12/23/21 Rx release oxycodone 5 mg tablet 5 mg PO Q8H PRN pain #31 tabs 12/22/21 12/23/21 Rx gabapentin 100 mg capsule 100 mg PO DAILY 12/23/21 12/23/21 History Patient History Medical History Acute on chronic diastolic heart failure due to valvular disease Atrial flutter Cardiac murmur Carotid artery occlusion Cervical facet joint syndrome Cervical spondylosis Cervicogenic headache Chondrosarcoma (Unknown) S/P resection COPD (chronic obstructive pulmonary disease) Crohn disease Crohn's colitis Crohns disease Diverticulitis Former smoker History of thyroidectomy (Unknown) History of total hysterectomy (Unknown) "2001 " Hyperlipidemia Hypothyroidism Intracranial meningioma (Unknown) Meningioma Osteoarthritis Rectal bleeding Spinal stenosis Stenosis of aorta Ulcerative colitis Valvular heart disease Surgical History History of appendectomy History of thoracic surgery S/P aortic valve replacement S/P colon resection Family History Mother Coronary heart disease Father Coronary heart disease Social History Smoking Status: Former smoker Second Hand Exposure: No; Hx Alcohol Use: Yes Alcohol type: beer Alcohol type Comment: 2 reagan lights a day Hx Substance Use: No Preferred Language: Burmese Communication Ability: Effective Scratch Brusher Required: No Beliefs That Will Affect Care: None Current Living Situation: Alone Current Living Situation Comment: Independent, still drives Other Information That Helps Us Care for You: No Feels Safe at Home: Yes Safety Concerns: Feels Safe At This Time Assistive Devices: None Review of Systems Review of Systems: All systems reviewed & are unremarkable except as noted in HPI & below Physical Exam Constitutional: + cachectic Respiratory: normal respiratory effort, lungs clear to auscultation Cardiovascular: Rate/Rhythm: regular rate Heart Sounds: + murmur (2/6 SM) Extremities: no edema Gastrointestinal (Abdomen): normal bowel sounds, soft, nontender, no hepatosplenomegaly Neurologic: PERRL, EOMI, accommodation nl, no face palsy, no dysarthria Results & Data ([facility]) Vital Signs (Past 12 Hours) Vital Signs Temp Pulse Pulse Pulse Resp BP BP 12/23/21 07:50 36.5 C 70 18 12/23/21 07:01 79 12/23/21 02:36 36.9 C 78 16 99/60 L 12/23/21 01:00 80 17 114/58 L 12/23/21 00:00 86 24 114/69 12/22/21 23:00 88 19 115/54 L BP Pulse Ox O2 Del Method 12/23/21 07:50 104/58 L 96 Room Air 12/23/21 07:01 12/23/21 02:36 92 Room Air 12/23/21 01:00 97 Room Air 12/23/21 00:00 94 Room Air 12/22/21 23:00 93 Room Air Diagnostic Findings Summary of CT a/ p:-summary of radiology report Skeletal structures: The skeletal structures are osteopenic. There are acute right posterior 11th and 12th rib fractures. There are acute right lateral 8th through 10th rib fractures. There is an acute fracture of the right transverse process of L2. The bony pelvis and proximal femora appear intact. There is a mild chronic superior endplate compression deformity of T12. Moderate lumbosacral spondylosis is observed. No lytic or blastic lesions are seen. IMPRESSION: 1. Acute right-sided rib fractures and an acute right transverse process fracture of L2 as above. This is unchanged from today's earlier examination. 2. There is evidence of a nonspecific colitis. This is also unchanged from today's earlier examination. 3. There is no evidence of solid organ injury in the abdomen or pelvis. 4. Additional findings as above.
[2021-12-23 11:41] LABS: Adenovirus F 40/41 PCR Not Detected (NotDetected); Astrovirus PCR Not Detected (NotDetected); Campylobacter PCR Not Detected (NotDetected); Clostridium diff Toxin A/B PCR Not Detected (NotDetected); Cryptosporidium PCR Not Detected (NotDetected); Cyclospora cayetanensis PCR Not Detected (NotDetected); Entamoeba histolytica PCR Not Detected (NotDetected); Enteroaggregative E.coli(EAEC) Not Detected (NotDetected); Enteropathogenic E.coli (EPEC) Not Detected (NotDetected); Enterotoxigenic E.coli (ETEC) Not Detected (NotDetected); Giardia lamblia PCR Not Detected (NotDetected); Norovirus GI/GII PCR Not Detected (NotDetected); Plesiomonas shigelloides PCR Not Detected (NotDetected); Rotavirus A PCR Not Detected (NotDetected); Salmonella PCR Not Detected (NotDetected); Sapovirus PCR Not Detected (NotDetected); Shiga-like Toxin E.coli (STEC) Not Detected (NotDetected); Shigella/Enteroinvasive E.coli Not Detected (NotDetected); Vibrio cholerae PCR Not Detected (NotDetected); Vibrio species PCR Not Detected (NotDetected); Yersinia enterocolitica PCR Not Detected (NotDetected)
--- NOTE | 2021-12-23 14:17 | Gastroenterology Progress Note ---
Date of Service December 23, 2021 Assessment & Plan (1) Rectal bleed: (2) Ulcerative colitis: (3) Unexplained weight loss: Plan 81 yr old female with intermittent episodes of rectal bleeding, now w acute anemia, unexplained weight loss. She carries a hx of UC though most recent colonoscopy 3 yrs ago suggested remission CT now with bowel wall thickening suggesting a possible flare. Will plan for EGD, Colonoscopy when cleared by cardiology, - in light of hx of heart disease and elevated troponins. Will place cards consult and plan for EGD/colonoscopy (tentatively on Thu). Will need to get consent from daughter who was agreeable to OP EGD/Colonscopy a few wks ago. Full liquid diet oK for now. Admission and Anticipated Discharge Date Admission Date: December 23, 2021 Supervising Physician Co-Signing Physician Notes Late entry: Patient was seen and examine don 12/23 with RAJAN Russ whose note reflects our findings and plan. EGD and colonoscopy planned for Thursday. Subjective Ms. Nereida Bhardwaj is an 81-year-old female patient of Dr. Sellers with a history of meningioma S/P resection 2014, chondrosarcoma of sternum S/P resection 2016, history of bioprosthetic aortic valve replacement in 2009 now with , paroxysmal atrial fibrillation/flutter with anticoagulation discontinued in 2019, right carotid artery occlusion, COPD, former smoker, right heart failure with moderate pulm hypertension, nocturnal hypoxemia, history of Crohn's/diverticulosis, diverticulitis S/P colon resection, hypothyroidism. She was admitted for chest pain and seen by GI for rectal bleeding 3 wks ago, at that time OP EGD (decreased appetite, unintentional weight loss), and Colonoscop y were arranged. She was admitted yesterday for falls and w report of having passed 4 bloody BMs. She denies any diarrhea or abd pain. She was most recently seen in the GI , clinic by Dr. Beckham in 2019 for Crohn's colitis at that time in remission. Her most recent endoscopy was 2019 EGD with gastritis and a recommendation to recheck EGD in 1 year. Colonoscopy at that time with mild diffuse granular mucosa in the entire colon and a patent end-to-end colocolonic anastomosis. On arrival, Hb is 10.3, down from 12 during the prior admission. Review of Systems Review of Systems: ROS: Of note, pt is a poor historian Gen: + Falls, pt reports tripping. + weight loss; Denies weakness, fevers Eyes: No eye redness, or pain, no recent vision changes Resp: No SOB, no cough Cardio: No palpitations/irregular beats, no chest pain GI: No abdominal pain, no nausea/vomiting : Denies pain on urination Skin: No jaundice, itching or new rashes Physical Exam Constitutional: WD/WN, vitals as above + thin and cooperative Eyes: PERRL, conjunctivae normal, anicteric sclerae Neck: trachea midline, no thyromegaly Respiratory: normal respiratory effort, lungs clear to auscultation Cardiovascular: Rate/Rhythm: regular rate and regular rhythm Heart Sounds: normal S1, normal S2 and + murmur (3/6 systolic) Gastrointestinal (Abdomen): normal bowel sounds, soft, nontender, no hepatosplenomegaly Skin: normal turgor; no rashes and no jaundice Neurologic: PERRL, EOMI, accommodation nl, no face palsy, no dysarthria Psychiatric: A+Ox3, euthymic affect Lymphatic: no cervical or axillary lymphadenopathy Results & Data ([facility]) Vital Signs (Past 12 Hours) Vital Signs Temp Pulse Pulse Pulse Resp BP BP 12/23/21 10:10 37.1 C 70 18 108/54 L 12/23/21 09:10 36.9 C 72 18 99/60 L 12/23/21 07:50 36.5 C 70 18 104/58 L 12/23/21 07:01 79 12/23/21 02:36 36.9 C 78 16 99/60 L Pulse Ox O2 Del Method 12/23/21 10:10 95 Room Air 12/23/21 09:10 94 Room Air 12/23/21 07:50 96 Room Air 12/23/21 07:01 12/23/21 02:36 92 Room Air Laboratory Results WBC 8, Hb 10, Hct 30, Plts 153, INR 1, Na 134, K 4.1, CL 104, CO2 23, BUN 18, Cr 0.5, glucose 130 Trop elevated at 26, 32, 27. Diagnostic Findings CTAP w IV contrast on 12/22/21: 1. Acute right-sided rib fractures and an acute right transverse process fracture of L2 as above. This is unchanged from today's earlier examination. 2. There is evidence of a nonspecific colitis. This is also unchanged from today's earlier examination. 3. There is no evidence of solid organ injury in the abdomen or pelvis. 4. Additional findings as above.
[2021-12-23] MEDS: DIGOXIN 0.125 MG TAB PO SCH (17:04)
[2021-12-23] MEDS: oxyCODONE HCL IR 5 MG TAB (IMMEDIATE RELEASE) PO PRN (20:25)
--- NOTE | 2021-12-23 21:17 | Communication Note ---
Date of Service: December 23, 2021 Pt was seen and examined for follow up of rectal bleed. Lying in bed with no acute distress. Pt said that she feels ok. CT abd/pelvis showed acute right- sided rib fractures and an acute right transverse process fracture of L2 as above. evidence of a nonspecific colitis. There is no evidence of solid organ injury in the abdomen or pelvis.Later I spoke to her daughter (Yola) and provided a detail update and answered all her questions. Pt is schedule for tentative EGD and colonoscopy on Thursday. Patient is considered optimized from a cardiac perspective without findings of acute volume overload with regards to sedation for colonoscopy as per cardiology. GI was notified and daughter Yola would give consent for the procedure. MD Deedee
[2021-12-23] MEDS: cefTRIAXone SODIUM 1,000 MG in DEXTROSE 5% 50 ML IV SCH (22:50)
[2021-12-24] MEDS: metroNIDAZOLE 500 MG/100 ML BAG IV SCH ×3 (02:52→17:42)
[2021-12-24] MEDS: LEVOTHYROXINE SODIUM 100 MCG TABLET PO SCH (06:01)
[2021-12-24 06:57] LABS: Hematocrit (blood only) 27.8 % (34.1-44.9); Hemoglobin 8.9 g/dl (12.0-16.0); Mean Corpuscular Hemoglobin 32.6 pg (25.0-34.0); Mean Corpuscular Volume 101.8 fL (80.0-100.0); Mean Platelet Volume 8.6 fL (9.4-12.3); Platelet Count 140 K/uL (130-400); RDW Coefficient of Variation 12.7 % (11.5-14.5); RDW Standard Deviation 47.1 fL (36.4-46.3); Red Blood Count 2.73 M/uL (3.93-5.22); White Blood Count 7.09 K/ul (4.8-10.8)
[2021-12-24 07:07] LABS: BUN Creatinine Ratio 29.6 (10-20); Calcium 8.2 mg/dl (8.5-10.1); Creatinine Clr Calc Pharmacy 71.3 ml/min; Est GFR (African American) 101.9 ml/min; Est GFR (Non-African American) 87.9 ml/min; Potassium 3.9 mmol/L (3.5-5.1)
[2021-12-24] MEDS ORDERED: LAVAGE SOLUTION 4000ML PO SCH ×3 (09:00→16:15)
[2021-12-24] MEDS: UMECLIDINIUM/VILANTEROL 62.5/25MCG 7 PUFFS/INHALER INH SCH (09:27)
[2021-12-24] MEDS: METOPROLOL SUCC 25MG EXT REL TAB PO SCH (09:30)
--- NOTE | 2021-12-24 09:44 | Cardiology Progress Note ---
Date of Service December 24, 2021 Assessment & Plan (1) Acute GI bleeding: (2) Colitis: (3) Prosthetic aortic valve stenosis: Plan: 81-year-old female with history of bioprosthetic aortic valve replacement performed in 2009, and recent echocardiogram findings suggestive of severe prosthetic aortic valve stenosis, peak CW velocity at time of echo 12/04/2021 4.13 m/s, mean gradient 42 mmHg, calculated aortic valve area 0.4-0.5 cm. Patient presents off of anticoagulation, with abdominal pain, and bright red blood per rectum, findings concerning for colitis. EKG performed on arrival reveals sinus rhythm with mild repolarization changes in the inferior and later al leads. Chronic T wave inversion noted in lead V2. Per review of her recent historical EKG tracings, EKG is relatively unchanged compared to October, and in November, admissions, in the past, intermittent repolarization changes have been noted usually when she is tachycardic. Of note, patient is on digoxin on a chronic basis, level as obtained at time of presentation is reassuring, without suggestive of toxicity. Her digoxin may however be influencing the ST segments of the EKG. Patient is considered optimized from a cardiac perspective without findings of acute volume overload with regards to sedation for colonoscopy. She is of course considered to be at high risk, but if her blood per rectum and abdominal pain does not improve with conservative measures, I think she would be a reasonable, albeit high risk candidate for colonoscopy. Ultimately, she needs to be optimized from both a rib fracture standpoint and a colitis standpoint in order to allow future valve in valve transcatheter aortic valve implantation. Admission and Anticipated Discharge Date Admission Date: December 23, 2021 Subjective Patient seen in cardiology follow-up. Her most significant subjective complaint is right rib pain with inspiration. She states that she has not had another bowel movement with regards to reassessment of her blood per rectum. Telemetry reveals sinus rhythm in the 60s to 70s. Physical Exam Constitutional: + cachectic Respiratory: normal respiratory effort, lungs clear to auscultation Cardiovascular: Rate/Rhythm: regular rate Heart Sounds: + murmur (2/6 SM) Extremities: no edema Gastrointestinal (Abdomen): normal bowel sounds, soft, nontender, no hepatosplenomegaly Neurologic: PERRL, EOMI, accommodation nl, no face palsy, no dysarthria Results & Data ([facility]) Vital Signs (Past 12 Hours) Vital Signs Temp Pulse Pulse Resp BP BP Pulse Ox 12/24/21 08:01 64 12/24/21 06:46 36.5 C 81 20 92/44 L 93 12/23/21 22:19 74 12/24/21 02:51 36.5 C 63 18 99/46 L 96 12/23/21 23:12 36.8 C 74 18 96/58 L 97 O2 Del Method 12/24/21 08:01 12/24/21 06:46 Room Air 12/23/21 22:19 12/24/21 02:51 Room Air 12/23/21 23:12 Room Air
--- NOTE | 2021-12-24 10:04 | Gastroenterology Progress Note ---
Date of Service December 24, 2021 Assessment & Plan (1) Rectal bleed: (2) Ulcerative colitis: (3) Unexplained weight loss: Plan 81 yr old female with intermittent episodes of rectal bleeding, now w acute anemia, unexplained weight loss. She carries a hx of UC though most recent colonoscopy 3 yrs ago suggested remission CT now with bowel wall thickening suggesting a possible flare. Will plan for EGD/Colonoscop tomorrow. Admission and Anticipated Discharge Date Admission Date: December 23, 2021 Supervising Physician Co-Signing Physician Notes Patient was seen and examine don 12/24 with RAJAN Russ whose note reflects our findings and plan. Subjective 81, female, rectal bleeding prior to arrival and also during hospitalization a few weeks ago. Hb 13 in October->11.9 on arrival to 8.9 today. She is reluctant to begin colonoscopy prep, agreeing, then refusing then agreeing again. Review of Systems Review of Systems: ROS: Of note, pt is a poor historian Gen: + Falls, pt reports tripping. + weight loss; Denies weakness, fevers Eyes: No eye redness, or pain, no recent vision changes Resp: No SOB, no cough Cardio: No palpitations/irregular beats, no chest pain GI: No abdominal pain, no nausea/vomiting : Denies pain on urination Skin: No jaundice, itching or new rashes Physical Exam Constitutional: WD/WN, vitals as above + thin and cooperative Eyes: PERRL, conjunctivae normal, anicteric sclerae Neck: trachea midline, no thyromegaly Respiratory: normal respiratory effort, lungs clear to auscultation Cardiovascular: Rate/Rhythm: regular rate and regular rhythm Heart Sounds: normal S1, normal S2 and + murmur (3/6 systolic) Gastrointestinal (Abdomen): normal bowel sounds, soft, nontender, no hepatosplenomegaly Skin: normal turgor; no rashes and no jaundice Neurologic: PERRL, EOMI, accommodation nl, no face palsy, no dysarthria Psychiatric: A+Ox3, euthymic affect Lymphatic: no cervical or axillary lymphadenopathy Results & Data ([facility]) Vital Signs (Past 12 Hours) Vital Signs Temp Pulse Pulse Resp BP BP Pulse Ox 12/24/21 08:01 64 12/24/21 06:46 36.5 C 81 20 92/44 L 93 12/23/21 22:19 74 08/02/22 02:51 36.5 C 63 18 99/46 L 96 12/23/21 23:12 36.8 C 74 18 96/58 L 97 O2 Del Method 12/24/21 08:01 12/24/21 06:46 Room Air 12/23/21 22:19 12/24/21 02:51 Room Air 12/23/21 23:12 Room Air Laboratory Results WBC 7, Hb 8.9, Hct 27, Plts 140, INR 1, Na 135, K 3.9, Cl 107, CO2 23, BUN 16, Cr 0.5, glucose 94. Diagnostic Findings CTAP w IV: 1. Acute right-sided rib fractures and an acute right transverse process fracture of L2 as above. This is unchanged from today's earlier examination. 2. There is evidence of a nonspecific colitis. This is also unchanged from today's earlier examination. 3. There is no evidence of solid organ injury in the abdomen or pelvis. 4. Additional findings as above.
[2021-12-24] MEDS: DIGOXIN 0.125 MG TAB PO SCH (16:49)
[2021-12-24] MEDS: cefTRIAXone SODIUM 1,000 MG in DEXTROSE 5% 50 ML IV SCH (21:06)
[2021-12-24] MEDS: MELATONIN 3 MG TAB PO PRN (21:06)
--- NOTE | 2021-12-24 23:44 | Hospitalist Progress Note ---
Date of Service December 24, 2021 Assessment & Plan (1) Acute GI bleeding: Plan: Hematochezia Presenting admission with episode of bloody bowel movement CT abd pelvis showed evidence of a nonspecific colitis. Hemoglobin dropped from 11.9 on arrival to 8.9 today. Gastro on board plan for EGD and colonoscopy tomorrow Prep started today for the scope Stool for C. difficile and culture negative Continue IV antibiotic with ceftriaxone and metronidazole cardiology was consulted for preop clearance Patient is considered optimized from a cardiac perspective without findings of acute volume overload with regards to sedation for colonoscopy as per cardiology Continue clear liquid diet Will make NPO after midnight Continue monitor H/H Chronic HFpEf due to valvular heart disease s/p bioprosthetic avr in 2009 Last ECHO showed preserved left ventricular systolic function with ejection fraction 60 to 65%. worsening of bioprosthetic aortic stenosis compared to previous Cardiology on board Pt has a follow up on to eval for aortic valve bioprosthesis.. Continue metoprolol, dig Clinically stable COPD nocturnal hypoxemia continue home inhalers Continue 2L of O2 at HS Stable Hypothyroidism continue levothyroxine DVT ppx: SCDS due to hematochezia Conditional code: Full code Admission and Anticipated Discharge Date Admission Date: December 23, 2021 Subjective Patient was seen and examined for follow-up rectal bleeding Lying in bed no acute distress watching TV Patient is not happy because she is getting clear liquid diet She said she is not having anymore bloody bowel movement she Is looking forward to be discharged tomorrow for the appointment on for the valve eval Denies any chest pain, palpitation, dizziness, shortness of breath. Review of Systems Review of Systems: All systems reviewed & are unremarkable except as noted in Subjective Physical Exam Physical Exam: General- No acute distress Head- atraumatic Eyes- PERRL, EOMI, ENT- oropharynx clear Neck- supple, no JVD Lungs- clear to auscultation Heart- regular rhythm; +murmur Abdomen- normal bowel sounds, soft, nontender Extremities- no calf tenderness Neuro- alert, oriented x 3; PERRL, EOMI; no facial palsy; no dysarthria Skin- warm & dry Results & Data Results & [facility] ([facility]) Vital Signs (Past 12 Hours) Vital Signs Temp Pulse Pulse Pulse Resp BP BP 12/24/21 23:39 68 12/24/21 22:51 36.4 C L 80 20 109/53 L 12/24/21 19:10 36.3 C L 73 20 120/68 12/24/21 16:49 64 12/24/21 16:22 64 12/24/21 16:17 36.4 C L 67 18 119/55 L 12/24/21 13:25 36.3 C L 63 16 109/70 Pulse Ox O2 Del Method 12/24/21 23:39 12/24/21 22:51 94 Room Air 12/24/21 19:10 96 Room Air 12/24/21 16:49 12/24/21 16:22 12/24/21 16:17 97 Room Air 12/24/21 13:25 97 Room Air
[2021-12-25] MEDS ORDERED: LORazepam 0.25 MG in SYRINGE 0.125 ML IV STA (00:15)
[2021-12-25] MEDS: metroNIDAZOLE 500 MG/100 ML BAG IV SCH ×3 (02:12→17:00)
[2021-12-25] MEDS: LEVOTHYROXINE SODIUM 100 MCG TABLET PO SCH (05:55)
[2021-12-25 06:33] LABS: Hemoglobin 9.7 g/dl (12.0-16.0); Mean Corpuscular Hemoglobin 33.1 pg (25.0-34.0); Mean Corpuscular Hgb Conc 33.4 g/dL (32.0-36.0); Mean Platelet Volume 8.3 fL (9.4-12.3); Platelet Count 162 K/uL (130-400); RDW Coefficient of Variation 12.6 % (11.5-14.5); RDW Standard Deviation 45.4 fL (36.4-46.3); Red Blood Count 2.93 M/uL (3.93-5.22); White Blood Count 6.43 K/ul (4.8-10.8)
[2021-12-25 06:58] LABS: BUN Creatinine Ratio 15.4 (10-20); Calcium 8.3 mg/dl (8.5-10.1); Creatinine Clr Calc Pharmacy 75.3 ml/min; Est GFR (African American) 103.1 ml/min; Potassium 3.6 mmol/L (3.5-5.1)
[2021-12-25] MEDS ORDERED: LIDOCAINE 2% MPF LOCAL 5 ML VIAL INFIL ONE (07:55)
[2021-12-25] MEDS ORDERED: PROPOFOL IV EMULSION 10 MG/ML 20 ML VIAL IV ONE (07:55)
--- NOTE | 2021-12-25 08:08 | Anesthesiology Consultation ---
Date of Service December 25, 2021 History Surgery Operation Date: 12/25/21 16:00 Proposed Procedures p Colonoscopy EGD Dr Cortez - Hannah Cortez, Height/Weight Height: 5 ft 8 in Weight: 57.2 kg Allergies Allergy/AdvReac Type Severity Reaction Status Date / Time Penicillins Allergy Intermediate HIVES Verified 11/12/21 22:54 Medications Home Medications Medication Instructions Recorded Confirmed Last Taken acetaminophen 650 mg 2 tab PO BID PRN Pain 04/12/18 12/23/21 04/21/18 06:30 tablet,extended release (Tylenol Arthritis Pain) levothyroxine 112 mcg capsule 112 mcg PO DAILY 04/12/18 12/23/21 11/12/21 albuterol sulfate 90 mcg/actuation 2 puff inhalation Q4H PRN 09/23/18 12/23/21 Unknown aerosol inhaler shortness of breath digoxin 125 mcg (0.125 mg) tablet 0.125 mg PO DAILY@1600 #30 tabs 09/27/18 12/23/21 11/12/21 metoprolol succinate 25 mg 12.5 mg PO DAILY 11/12/21 12/23/21 11/12/21 tablet,extended release 24 hr umeclidinium 62.5 mcg-vilanterol 1 inh inhalation QAM 11/12/21 12/23/21 11/12/21 25 mcg/actuation powdr for inhalation (Anoro Ellipta) Oxygen Home 12/04/21 12/23/21 Unknown furosemide 20 mg tablet 20 mg PO QAM #30 tabs 12/06/21 12/23/21 Unknown mesalamine 1.2 gram tablet,delayed 4.8 g PO DAILY 30 days #120 tabs 12/06/21 12/23/21 Unknown release oxycodone 5 mg tablet 5 mg PO Q8H PRN pain #31 tabs 12/22/21 12/23/21 12/22/21 gabapentin 100 mg capsule 100 mg PO DAILY 12/23/21 12/23/21 Unknown Active Medications Generic Name Dose Route Start Last Admin Trade Name Freq PRN Reason Stop Dose Admin Acetaminophen 650 mg 12/23/21 02:21 12/24/21 17:51 Acetaminophen 325 Mg Tab PO 01/22/22 02:20 650 mg Q4H PRN Administration Pain or Fever Digoxin 0.125 mg 12/23/21 16:00 08/02/22 16:49 Digoxin 0.125 Mg Tab PO 01/22/22 15:59 0.125 mg DAILY@1600 SALLY Administration Metronidazole 500 mg in 100 mls @ 100 mls/hr 12/23/21 10:00 12/25/21 03:11 Flagyl IV 01/02/22 09:59 Infused Q8H SALLY Infusion Ceftriaxone Sodium 1,000 mg/ 60 mls @ 100 mls/hr 12/23/21 22:00 12/24/21 21:55 Dextrose IV 01/02/22 21:59 Infused Q24H SALLY Infusion Protocol Lorazepam 0.25 mg/ Syringe 0.375 mls @ 2 mls/min 12/23/21 02:21 12/24/21 22:29 IV 01/22/22 02:20 2 mls/min Q6H PRN Administration Anxiety Levothyroxine Sodium 100 mcg 12/24/21 06:30 12/25/21 05:55 Levothyroxine Sodium 100 Mcg Tablet PO 01/23/22 06:29 100 mcg DAILYBB SALLY Administration Melatonin 3 mg 12/23/21 01:52 12/24/21 21:06 Melatonin 3 Mg Tab PO 01/22/22 01:51 3 mg HS PRN Administration Sleep Metoprolol Succinate 12.5 mg 12/23/21 09:00 12/24/21 09:30 Metoprolol Succ 25mg Ext Rel Tab PO 01/22/22 08:59 Not Given DAILY SALLY Miscellaneous 1 each 12/23/21 08:00 12/25/21 07:32 Mesalamine~Order Awaiting Action N/A 01/22/22 07:59 Not Given QS SALLY Oxycodone HCl 5 - 10 mg 12/23/21 02:21 12/23/21 20:25 Oxycodone Hcl Ir 5 Mg Tab (Immediate Release) PO 01/06/22 02:20 10 mg QID PRN Administration Pain Umeclidinium/Vilanterol 1 puffs 12/23/21 09:00 12/24/21 09:27 Umeclidinium/Vilanterol 62.5/25mcg 7 Puffs/Inhaler INH 01/22/22 08:59 1 puffs QAM SALLY Administration NPO Date Last Intake of Fluids: 12/25/21 Time Last Intake of Fluids: 00:00 Date Last Intake of Solids: 12/25/21 Time Last Intake of Solids: 00:00 Past Medical History Medical History Acute on chronic diastolic heart failure due to valvular disease Atrial flutter Cardiac murmur Carotid artery occlusion Cervical facet joint syndrome Cervical spondylosis Cervicogenic headache Chondrosarcoma (Unknown) S/P resection COPD (chronic obstructive pulmonary disease) Crohn disease Crohn's colitis Crohns disease Diverticulitis Former smoker History of thyroidectomy (Unknown) History of total hysterectomy (Unknown) "2001 " Hyperlipidemia Hypothyroidism Intracranial meningioma (Unknown) Meningioma Osteoarthritis Rectal bleeding Spinal stenosis Stenosis of aorta Ulcerative colitis Valvular heart disease Exercise / Class Metabolic Activity III < 4 Walking/Shop/Light housework Past Family History Family History Mother Coronary heart disease Father Coronary heart disease Past Surgical History Surgical History History of appendectomy History of thoracic surgery S/P aortic valve replacement S/P colon resection Past Anesthesia History No Hx of Anesthesia Complications and No Family Hx of Anesthesia Complications History of PONV No Hx of PONV and No Hx of Motion Sickness Social History Smoking Status: Former smoker tobacco type: cigarettes Hx Alcohol Use: Yes Alcohol type: beer alcohol intake frequency: 0-2 drinks per day Alcohol Intake Frequency Comment: reagan light Hx Substance Use: No substance use type: does not use Review of Systems ROS Unobtainable: All systems reviewed & are unremarkable except as noted in HPI & below Constitutional: as per Subjective / HPI Eyes: as per Subjective / HPI Ear, Nose, Mouth, Throat: as per Subjective / HPI Respiratory: as per Subjective / HPI Cardiovascular: as per Subjective / HPI Additional Comments: s/p prosthetic valve Gastrointestinal: as per Subjective / HPI Genitourinary (Female): as per Subjective / HPI Musculoskeletal: as per Subjective / HPI Integumentary: as per Subjective / HPI Neurologic: as per Subjective / HPI Psychiatric: as per Subjective / HPI Endocrine: as per Subjective / HPI Hematologic / Lymphatic: as per Subjective / HPI Allergy / Immunological: as per Subjective / HPI Physical Exam Vital Signs Last Vital Signs Temp 36.9 C 12/25/21 08:16 Pulse 74 12/25/21 08:16 Resp 16 12/25/21 08:16 BP 146/69 H 12/25/21 08:16 Pulse Ox 98 12/25/21 08:16 O2 Del Method 12/25/21 08:16 Testing Laboratory Results 12/25/21 06:13 12/25/21 06:13 PT 10.9 Seconds (9.0-12.0) 12/22/21 21:28 INR 1.0 (0.9-1.1) 12/22/21 21: APTT 25.9 Seconds (21.0-31.0) 12/22/21 21:28 Urine Color Yellow 12/23/21 06:07 Urine Appearance Clear (Clear) 12/23/21 06:07 Urine pH 5.0 (4.5-7.5) 12/23/21 06:07 Ur Specific [place] > 1.045 (1.000-1.030) H 12/23/21 06:07 Urine Protein Trace (Negative) H 12/23/21 06:07 Urine Glucose (UA) Negative (Negative) 12/23/21 06:07 Urine Ketones Negative (Negative) 12/23/21 06:07 Urine Nitrite Negative (Negative) 12/23/21 06:07 Ur Leukocyte Esterase 1+ (Negative) H 12/23/21 06:07 Urine WBC (Auto) >30 /hpf (0-5) H 12/23/21 06:07 Urine RBC (Auto) 0-4 /hpf (0-4) 12/23/21 06:07 U Hyaline Cast (Auto) 0 /lpf (0-5) 12/23/21 06:07 U Epithel Cells (Auto) >30 /lpf (0-5) H 12/23/21 06:07 Urine Bacteria (Auto) Negative (Negative) 12/23/21 06:07 Blood Type O Negative 12/22/21 21:25 Antibody Screen NEGATIVE 12/22/21 21:25 12/23/21 01:07 Aerobic Blood Culture - Preliminary Blood No growth in Aerobic bottle after 48 hours. Anaerobic Blood Culture - Preliminary No growth in Anaerobic bottle after 48 hours. 12/23/21 01:07 Aerobic Blood Culture - Preliminary Blood No growth in Aerobic bottle after 48 hours. Anaerobic Blood Culture - Preliminary No growth in Anaerobic bottle after 48 hours. 12/23/21 06:07 Urine Culture - Preliminary Urine,Clean Catch No growth - Less than 1,000 colonies/mL, Final report to follow.
--- NOTE | 2021-12-25 08:29 | History & Physical Report ---
Date of Service December 25, 2021 Assessment & Plan (1) Rectal bleed: Plan: EGD and colonoscopy today Admission and Anticipated Discharge Date Admission Date: December 23, 2021 History of Present Illness Chief Complaint: rectal bleeding Primary Care Provider: Yahir Collado PA-C rectal bleeding Allergies Allergy/AdvReac Type Severity Reaction Status Date / Time Penicillins Allergy Intermediate HIVES Verified 11/12/21 22:54 Home Medications Medication Instructions Recorded Confirmed Type acetaminophen 650 mg 2 tab PO BID PRN Pain 04/12/18 12/23/21 History tablet,extended release (Tylenol Arthritis Pain) levothyroxine 112 mcg capsule 112 mcg PO DAILY 04/12/18 12/23/21 History albuterol sulfate 90 mcg/actuation 2 puff inhalation Q4H PRN 09/23/18 12/23/21 History aerosol inhaler shortness of breath digoxin 125 mcg (0.125 mg) tablet 0.125 mg PO DAILY@1600 #30 tabs 09/27/18 12/23/21 Rx metoprolol succinate 25 mg 12.5 mg PO DAILY 11/12/21 12/23/21 History tablet,extended release 24 hr umeclidinium 62.5 mcg-vilanterol 1 inh inhalation QAM 11/12/21 12/23/21 History 25 mcg/actuation powdr for inhalation (Anoro Ellipta) Oxygen Home 12/04/21 12/23/21 History furosemide 20 mg tablet 20 mg PO QAM #30 tabs 12/06/21 12/23/21 Rx mesalamine 1.2 gram tablet,delayed 4.8 g PO DAILY 30 days #120 tabs 12/06/21 12/23/21 Rx release oxycodone 5 mg tablet 5 mg PO Q8H PRN pain #31 tabs 12/22/21 12/23/21 Rx gabapentin 100 mg capsule 100 mg PO DAILY 12/23/21 12/23/21 History Past Med/Surg History Medical History Acute on chronic diastolic heart failure due to valvular disease Atrial flutter Cardiac murmur Carotid artery occlusion Cervical facet joint syndrome Cervical spondylosis Cervicogenic headache Chondrosarcoma (Unknown) S/P resection COPD (chronic obstructive pulmonary disease) Crohn disease Crohn's colitis Crohns disease Diverticulitis Former smoker History of thyroidectomy (Unknown) History of total hysterectomy (Unknown) "2001 " Hyperlipidemia Hypothyroidism Intracranial meningioma (Unknown) Meningioma Osteoarthritis Rectal bleeding Spinal stenosis Stenosis of aorta Ulcerative colitis Valvular heart disease Surgical History History of appendectomy History of thoracic surgery S/P aortic valve replacement S/P colon resection Family History Mother Coronary heart disease Father Coronary heart disease Social History Smoking Status: Former smoker Second Hand Exposure: No; Hx Alcohol Use: Yes Alcohol type: beer Alcohol type Comment: 2 reagan lights a day Hx Substance Use: No Preferred Language: Sinhala Communication Ability: Effective Silicator Required: No Beliefs That Will Affect Care: None Current Living Situation: Alone Current Living Situation Comment: Independent, still drives Other Information That Helps Us Care for You: No Feels Safe at Home: Yes Safety Concerns: Feels Safe At This Time Assistive Devices: Glasses Results & Data ([facility]) Vital Signs (Past 12 Hours) Vital Signs Temp Pulse Pulse Resp BP BP Pulse Ox 12/25/21 08:16 36.9 C 74 16 146/69 H 98 12/25/21 07:25 36.8 C 70 16 104/55 L 95 12/25/21 07:07 87 12/25/21 06:24 36.7 C 84 20 134/83 95 12/25/21 03:11 36.9 C 66 18 91/53 L 95 12/25/21 00:21 109/62 12/24/21 23:39 68 12/24/21 22:51 36.4 C L 80 20 109/53 L 94 O2 Del Method 12/25/21 08:16 Room Air 12/25/21 07:25 Room Air 12/25/21 07:07 12/25/21 06:24 Room Air 12/25/21 03:11 Room Air 12/25/21 00:21 12/24/21 23:39 12/24/21 22:51 Room Air Code Status & VTE Plan VTE Prophylaxis Plan VTE Prophylaxis will be ordered: Yes
--- NOTE | 2021-12-25 08:34 | Anesthesiology Progress Note ---
Date of Service December 25, 2021 Anesthesia Post Procedure Vital Signs Vital Signs: Temp Pulse Pulse Pulse Resp BP BP 12/25/21 08:16 36.9 C 74 16 146/69 H 12/25/21 07:25 36.8 C 70 16 104/55 L 12/25/21 07:07 87 12/25/21 06:24 36.7 C 84 20 134/83 12/25/21 03:11 36.9 C 66 18 91/53 L 12/25/21 00:21 109/62 12/24/21 23:39 68 12/24/21 22:51 36.4 C L 80 20 109/53 L 12/24/21 19:10 36.3 C L 73 20 120/68 12/24/21 16:49 64 12/24/21 16:22 64 12/24/21 16:17 36.4 C L 67 18 119/55 L 12/24/21 13:25 36.3 C L 63 16 109/70 Pulse Ox O2 Del Method 12/25/21 08:16 98 Room Air 12/25/21 07:25 95 Room Air 12/25/21 07:07 12/25/21 06:24 95 Room Air 12/25/21 03:11 95 Room Air 12/25/21 00:21 12/24/21 23:39 12/24/21 22:51 94 Room Air 12/24/21 19:10 96 Room Air 12/24/21 16:49 12/24/21 16:22 12/24/21 16:17 97 Room Air 12/24/21 13:25 97 Room Air Pain Intensity Right Ribs: Pain Intensity: 5 Transfer of Care Handoff Completed per policy Notes Mental Status: alert / awake / arousable and participated in evaluation Patient Amnestic to Procedure: Yes Nausea / Vomiting: adequately controlled Pain: adequately controlled Airway Patency, RR, SpO2: stable & adequate BP & HR: stable & adequate Hydration State: stable & adequate Anesthetic Complications: no major complications apparent and Pt Satisfied with anesthetic care
[2021-12-25] MEDS ORDERED: ENDOSCOPIC MARKER 5 ML SYR TOP ONE (09:00)
--- NOTE | 2021-12-25 09:08 | GI REPORT ---
Patient Name: Nereida Stephen Procedure Date: 12/25/2021 8:21 AM Date of : 1940 Admit Type: Inpatient Age: 81 Gender: Female Attending MD: Hannah Cortez DO Procedure: Upper GI endoscopy Providers: Hannah Cortez DO Referring MD: Referred Maxwell Martinez Indications: Active gastrointestinal bleeding, Weight loss Medicines: Propofol per Anesthesia Complications: No immediate complications. Estimated blood loss: None. Estimated Blood Loss: Estimated blood loss: none. Procedure: Pre-Anesthesia Assessment: - Prior to the procedure, a History and Physical was performed, and patient medications, allergies and sensitivities were reviewed. The patient's tolerance of previous anesthesia was reviewed. - The risks and benefits of the procedure and the sedation options and risks were discussed with the patient. All questions were answered and informed consent was obtained. - Patient identification and proposed procedure were verified prior to the procedure by the physician and the nurse. The procedure was verified in the pre-procedure area in the procedure room. - Mental Status Examination: alert and oriented. Airway Examination: normal oropharyngeal airway and neck mobility. Respiratory Examination: clear to auscultation. CV Examination: normal. Abdominal Examination: bowel sounds present, abdomen soft and non-tender, no masses or organomegaly noted. - ASA Grade Assessment: III - A patient with severe systemic disease. After obtaining informed consent, the endoscope was passed under direct vision. Throughout the procedure, the patient's blood pressure, pulse, and oxygen saturations were monitored continuously. The Colonoscope was introduced through the mouth, and advanced to the second part of duodenum. The upper GI endoscopy was accomplished without difficulty. The patient tolerated the procedure well. Findings: The esophagus was normal. A small hiatal hernia was present. The examined duodenum was normal. Impression: - Normal esophagus. - Small hiatal hernia. - Normal examined duodenum. - No specimens collected. Recommendation: - Perform a colonoscopy today. Hannah Cortez D.O. Hannah Cortez DO 12/25/2021 9:08:29 AM This report has been signed electronically. Note Initiated On: 12/25/2021 8:21 AM Number of Addenda: 0 I attest to the content of the Intraoperative Record and orders documented therein, exceptions below {[id number]}
--- NOTE | 2021-12-25 09:16 | Hospitalist Progress Note ---
Date of Service December 25, 2021 Assessment & Plan (1) Acute GI bleeding: Plan: Hematochezia Presenting admission with episode of bloody bowel movement CT abd pelvis showed evidence of a nonspecific colitis. Hemoglobin dropped from 11.9 on arrival to 8.9 current Hgb 9.7 stable Gastro on board plan for EGD and colonoscopy Now s/p EGD and colonoscopy EGD Impression: - Normal esophagus. - Small hiatal hernia. - Normal examined duodenum. - No specimens collected. Colonoscopy Impression: - The examined portion of the ileum was normal. - Inflammation was found from the hepatic flexure to the cecum. This was moderate in severity. Biopsied. - Normal mucosa from transverse colon to sigmoid colon. Biopsied. - Rule out malignancy, tumor at 15 cm proximal to the anus. Biopsied. - The distal rectum and anal verge are normal on retroflexion view. Recommendation: - Await pathology results. Stool for C. difficile and culture negative Continue IV antibiotic with ceftriaxone and metronidazole Cardiology was consulted for preop clearance Patient is considered optimized from a cardiac perspective without findings of acute volume overload with regards to sedation for colonoscopy as per cardiology Chronic HFpEf due to valvular heart disease s/p bioprosthetic avr in 2009 Last ECHO showed preserved left ventricular systolic function with ejection fraction 60 to 65%. worsening of bioprosthetic aortic stenosis compared to previous Cardiology following Pt has a follow up on to eval for aortic valve bioprosthesis - at this time needs to reschedule Continue metoprolol, dig NSVT -Episode of 30 beat of V. tach overnight, while prepping for endoscopy -Monitor electrolytes, continue close monitor on telemetry COPD nocturnal hypoxemia continue home inhalers Continue 2L of O2 at HS Stable Hypothyroidism continue levothyroxine DVT ppx: SCDS due to hematochezia Conditional code: Full code Admission and Anticipated Discharge Date Admission Date: December 23, 2021 Subjective Patient was seen and examined for follow-up rectal bleeding Had episode of blood per rectum this morning. Underwent endoscopies earlier today. Overnight episode of 30 beat of V. tach. Currently patient is lying in bed, no acute distress, daughter at the bedside She reports that she is feeling well, and she is very much interested into seeing her cardiology at [place]. Discussed that at this time, it is not recommended for her to be discharged. Daughter rescheduled the appointment. Denies any fevers, chills, chest pain, palpitation, dizziness, shortness of breath. Also denies any abdominal pain. Review of Systems Review of Systems: All systems reviewed & are unremarkable except as noted in Subjective Physical Exam Physical Exam: General- No acute distress Head- atraumatic Eyes- PERRL, EOMI, ENT- oropharynx clear Neck- supple, no JVD Lungs- clear to auscultation Heart- regular rhythm; +murmur Abdomen- normal bowel sounds, soft, nontender Extremities- no calf tenderness, moves extremities Neuro- alert, oriented x 3; PERRL, EOMI; no facial palsy; no dysarthria, moves extremities Skin- warm & dry Results & Data Results & Data ([facility]) Vital Signs (Past 12 Hours) Vital Signs Temp Pulse Pulse Resp BP BP Pulse Ox 12/25/21 09:07 68 14 116/75 99 12/25/21 08:16 36.9 C 74 16 146/69 H 98 12/25/21 07:25 36.8 C 70 16 104/55 L 95 12/25/21 07:07 87 12/25/21 06:24 36.7 C 84 20 134/83 95 12/25/21 03:11 36.9 C 66 18 91/53 L 95 12/25/21 00:21 109/62 12/24/21 23:39 68 12/24/21 22:51 36.4 C L 80 20 109/53 L 94 O2 Del Method O2 Flow Rate 12/25/21 09:07 Oxymask 7 12/25/21 08:16 Room Air 12/25/21 07:25 Room Air 12/25/21 07:07 12/25/21 06:24 Room Air 12/25/21 03:11 Room Air 12/25/21 00:21 12/24/21 23:39 12/24/21 22:51 Room Air Laboratory Results 12/25/21 12/25/21 Range/Units 06:13 06:13 WBC 6.43 (4.8-10.8) K/ul RBC 2.93 L (3.93-5.22) M/uL Hgb 9.7 L (12.0-16.0) g/dl Hct 29.0 L (34.1-44.9) % MCV 99.0 (80.0-100.0) fL MCH 33.1 (25.0-34.0) pg MCHC 33.4 (32.0-36.0) g/dL RDW Std Deviation 45.4 (36.4-46.3) fL RDW Coeff of Brendon 12.6 (11.5-14.5) % Plt Count 162 (130-400) K/uL MPV 8.3 L (9.4-12.3) fL Sodium 136 (136-145) mmol/L Potassium 3.6 (3.5-5.1) mmol/L Chloride 103 (98-107) mmol/L Carbon Dioxide 27 (21-32) mmol/L Anion Gap 6 (3-11) BUN 8 (6-23) mg/dl Creatinine 0.52 L (0.6-1.2) mg/dl Est Cr Clr Drug Dosing 75.3 ml/min Est GFR ( Amer) 103.1 ml/min Est GFR (Non-Af Amer) 89.0 ml/min BUN/Creatinine Ratio 15.4 (10-20) Glucose 85 (70-99(Fasting)) mg/dl Calcium 8.3 L (8.5-10.1) mg/dl Medications Administered Current Inpatient Medications Acetaminophen (Acetaminophen 325 Mg Tab) 650 mg PO Q4H PRN PRN Reason: Pain or Fever Stop: 01/22/22 02:20 Last Admin: 12/24/21 17:51 Dose: 650 mg Digoxin (Digoxin 0.125 Mg Tab) 0.125 mg PO DAILY@1600 SALLY Stop: 01/22/22 15:59 Last Admin: 12/24/21 16:49 Dose: 0.125 mg Metronidazole (Flagyl) 500 mg in 100 mls @ 100 mls/hr IV Q8H [facility] Stop: 01/02/22 09:59 Last Infusion: 12/25/21 03:11 Dose: Infused Ceftriaxone Sodium 1,000 mg/ (Dextrose) 60 mls @ 100 mls/hr IV Q24H [facility]; Protocol Stop: 01/02/22 21:59 Last Infusion: 12/24/21 21:55 Dose: Infused Promethazine HCl 6.25 mg/ (Sodium Chloride) 50.25 mls @ 201 mls/hr IV Q6H PRN PRN Reason: Nausea And Vomiting Stop: 01/22/22 02:20 Lorazepam 0.25 mg/ Syringe 0.375 mls @ 2 mls/min IV Q6H PRN PRN Reason: Anxiety Stop: 01/22/22 02:20 Last Admin: 12/24/21 22:29 Dose: 2 mls/min Levothyroxine Sodium (Levothyroxine Sodium 100 Mcg Tablet) 100 mcg PO DAILYBB SALLY Stop: 01/23/22 06:29 Last Admin: 12/25/21 05:55 Dose: 100 mcg Melatonin (Melatonin 3 Mg Tab) 3 mg PO HS PRN PRN Reason: Sleep Stop: 01/22/22 01:51 Last Admin: 12/24/21 21:06 Dose: 3 mg Metoprolol Succinate (Metoprolol Succ 25mg Ext Rel Tab) 12.5 mg PO DAILY [facility]ALLY Stop: 01/22/22 08:59 Last Admin: 12/24/21 09:30 Dose: Not Given Miscellaneous (Mesalamine~Order Awaiting Action) 1 each N/A QS [facility] Stop: 01/22/22 07:59 Last Admin: 12/25/21 07:32 Dose: Not Given Morphine Sulfate (Morphine Sulfate 2 Mg/Ml Carp) 2 mg IV Q3H PRN PRN Reason: Pain Stop: 01/06/22 02:20 Oxycodone HCl (Oxycodone Hcl Ir 5 Mg Tab (Immediate Release)) 5 - 10 mg PO QID PRN PRN Reason: Pain Stop: 01/06/22 02:20 Last Admin: 12/23/21 20:25 Dose: 10 mg Polyethylene Glycol/Electrolytes (Lavage Solution 4000ml) 1 dose PO UD [facility] Stop: 01/23/22 16:14 Umeclidinium/Vilanterol (Umeclidinium/Vilanterol 62.5/25mcg 7 Puffs/Inhaler) 1 puffs INH QAM [facility] Stop: 01/22/22 08:59 Last Admin: 12/24/21 09:27 Dose: 1 puffs
--- NOTE | 2021-12-25 09:17 | GI REPORT ---
Patient Name: Nereida Stephen Procedure Date: 12/25/2021 8:20 AM Date of : 1940 Admit Type: Inpatient Age: 81 Gender: Female Attending MD: Hannah Cortez DO Procedure: Colonoscopy Providers: Hannah Cortez DO Referring MD: Referred Self, Maxwell Sellers, Eduar Beckham MD Indications: Rectal bleeding Medicines: Propofol per Anesthesia Complications: No immediate complications. Estimated blood loss: Minimal. Estimated Blood Loss: Estimated blood loss was minimal. Procedure: Pre-Anesthesia Assessment: - Prior to the procedure, a History and Physical was performed, and patient medications, allergies and sensitivities were reviewed. The patient's tolerance of previous anesthesia was reviewed. - The risks and benefits of the procedure and the sedation options and risks were discussed with the patient. All questions were answered and informed consent was obtained. - Patient identification and proposed procedure were verified prior to the procedure by the physician and the nurse. The procedure was verified in the pre-procedure area in the procedure room. - Mental Status Examination: alert and oriented. Airway Examination: normal oropharyngeal airway and neck mobility. Respiratory Examination: clear to auscultation. CV Examination: normal. Abdominal Examination: bowel sounds present, abdomen soft and non-tender, no masses or organomegaly noted. - ASA Grade Assessment: III - A patient with severe systemic disease. After I obtained informed consent, the scope was passed under direct vision. Throughout the procedure, the patient's blood pressure, pulse, and oxygen saturations were monitored continuously. The Colonoscope was introduced through the anus and advanced to the terminal ileum. The colonoscopy was performed without difficulty. The patient tolerated the procedure well. The quality of the bowel preparation was good. Findings: The perianal and digital rectal examinations were normal. Pertinent negatives include normal sphincter tone and no palpable rectal lesions. The terminal ileum appeared normal. Inflammation characterized by congestion (edema), erosions and erythema was found in a continuous and circumferential pattern from the hepatic flexure to the cecum. This was moderate in severity. Biopsies were taken with a cold forceps for histology. Verification of patient identification for the specimen was done by the physician and nurse using the patient's name and date. Estimated blood loss was minimal. Normal mucosa was found from transverse colon to sigmoid colon. Biopsies were taken with a cold forceps for histology. Verification of patient identification for the specimen was done by the physician and nurse using the patient's name and date. Estimated blood loss was minimal. A frond-like/villous, polypoid and ulcerated non-obstructing mass was found at 15 cm proximal to the anus. The mass was circumferential. The mass measured five cm in length. Oozing was present. Biopsies were taken with a cold forceps for histology. Verification of patient identification for the specimen was done by the physician and nurse using the patient's name and date. Estimated blood loss was minimal. The retroflexed view of the distal rectum and anal verge was normal and showed no anal or rectal abnormalities. Impression: - The examined portion of the ileum was normal. - Inflammation was found from the hepatic flexure to the cecum. This was moderate in severity. Biopsied. - Normal mucosa from transverse colon to sigmoid colon. Biopsied. - Rule out malignancy, tumor at 15 cm proximal to the anus. Biopsied. - The distal rectum and anal verge are normal on retroflexion view. Recommendation: - Await pathology results. - Return patient to hospital rader for ongoing care. Hannah Cortez D.O. Hannah Cortez DO 12/25/2021 9:16:45 AM This report has been signed electronically. Note Initiated On: 12/25/2021 8:20 AM Number of Addenda: 0 I attest to the content of the Intraoperative Record and orders documented therein, exceptions below {[id number]}
[2021-12-25] MEDS ORDERED: POTASSIUM CHLORIDE 10 MEQ TABCR PO STA (10:04)
--- NOTE | 2021-12-25 10:05 | Cardiology Progress Note ---
Date of Service December 25, 2021 Assessment & Plan (1) Rectal bleed: (2) Colitis: (3) NSVT (nonsustained ventricular tachycardia): (4) Prosthetic aortic valve stenosis: Plan: 81-year-old female with history of bioprosthetic aortic valve replacement performed in 2009, and recent echocardiogram findings suggestive of severe prosthetic aortic valve stenosis, peak CW velocity at time of echo 12/04/2021 4.13 m/s, mean gradient 42 mmHg, calculated aortic valve area 0.4-0.5 cm. Patient presents off of anticoagulation, with abdominal pain, and bright red blood per rectum. Patient underwent EGD this morning 12/25/2021 with findings of inflammation from the hepatic flexure to the cecum. There was an ulcerated nonobstructing mass described in the colonoscopy report 15 cm proximal to the anus which was oozing perhaps the source of the bleeding, biopsies taken, malignancy certainly a consideration. -Continue supportive care. -Patient has a tentative appointment in [facility] tomorrow 12/26/2021 to discuss valve in valve transcatheter aortic valve replacement. This will need to be delayed pending pathology and recovery from her acute hospital stay. Regards to the NSVT. Potassium 3.6 this morning. Potassium replacement will be provided. Continue metoprolol. Repeat electrolytes in a.m. Admission and Anticipated Discharge Date Admission Date: December 23, 2021 Argenis Stephen is seen in cardiology follow-up. At the time my assessment she had already undergone colonoscopy, and was in the recovery unit. Sinus rhythm noted on telemetry in the recovery unit in the 60s. Patient had received sedation for the procedure including 120 mg of IV propofol, 80 mg IV lidocaine, 100 mcg of phenylephrine for blood pressure support, and 300 mL of normal saline. Review of her telemetry from overnight last night revealed predominant rhythm of sinus rhythm in the 70s. On 12/24/2021 at 2300 she had a 32 beat run of wide-complex tachycardia consistent with nonsustained ventricular tachycardia. Shortly thereafter at 12:06 AM on 12/25/2021 she had a 5 beat run of nonsustained ventricular tachycardia, ventricular rate for both episodes in the 140s. Physical Exam Constitutional: + cachectic Respiratory: normal respiratory effort, lungs clear to auscultation Cardiovascular: Rate/Rhythm: regular rate Heart Sounds: + murmur (2/6 SM) Extremities: no edema Gastrointestinal (Abdomen): normal bowel sounds, soft, nontender, no hepatosplenomegaly Neurologic: PERRL, EOMI, accommodation nl, no face palsy, no dysarthria Results & Data ([facility]) Vital Signs (Past 12 Hours) Vital Signs Temp Pulse Pulse Resp BP BP Pulse Ox 12/25/21 09:37 69 18 135/58 L 97 12/25/21 09:22 66 16 123/70 97 12/25/21 09:07 68 14 116/75 99 12/25/21 08:16 36.9 C 74 16 146/69 H 98 12/25/21 07:25 36.8 C 70 16 104/55 L 95 12/25/21 07:07 87 12/25/21 06:24 36.7 C 84 20 134/83 95 12/25/21 03:11 36.9 C 66 18 91/53 L 95 12/25/21 00:21 109/62 12/24/21 23:39 68 12/24/21 22:51 36.4 C L 80 20 109/53 L 94 O2 Del Method O2 Flow Rate 12/25/21 09:37 Room Air 12/25/21 09:22 Room Air 12/25/21 09:07 Oxymask 7 12/25/21 08:16 Room Air 12/25/21 07:25 Room Air 12/25/21 07:07 12/25/21 06:24 Room Air 12/25/21 03:11 Room Air 12/25/21 00:21 12/24/21 23:39 12/24/21 22:51 Room Air Laboratory Results CBC 12/25/21 Range/Units 06:13 WBC 6.43 (4.8-10.8) K/ul RBC 2.93 L (3.93-5.22) M/uL Hgb 9.7 L (12.0-16.0) g/dl Hct 29.0 L (34.1-44.9) % Plt Count 162 (130-400) K/uL Comprehensive Metabolic Panel 12/25/21 Range/Units 06:13 Sodium 136 (136-145) mmol/L Potassium 3.6 (3.5-5.1) mmol/L Chloride 103 (98-107) mmol/L Carbon Dioxide 27 (21-32) mmol/L BUN 8 (6-23) mg/dl Creatinine 0.52 L (0.6-1.2) mg/dl Glucose 85 (70-99(Fasting)) mg/dl Calcium 8.3 L (8.5-10.1) mg/dl Intake and Output 12/24/21 12/25/21 12/25/21 22:59 06:59 14:59 Intake Total 160 / 600 340 / 600 Balance 160 / 597 340 / 597 Intake: IV 160 / 360 100 / 360 cefTRIAXone SODIUM 1,000 mg In 60 / 60 Dextrose 5% 50 ml @ 100 mls/hr IV Q24H [facility] Rx#:[id number] metroNIDAZOLE 500 mg In 100 ml 100 / 300 100 / 300 @ 100 mls/hr IV Q8H [facility] Rx#: [id number] Oral 240 / 240 Other: Weight 57.2 kg 57.2 kg Weight Measurement Method Built in [facility] Patient Weight 12/26/21 06:59 Weight 57.2 kg
[2021-12-25] MEDS: METOPROLOL SUCC 25MG EXT REL TAB PO SCH (10:17)
[2021-12-25] MEDS: UMECLIDINIUM/VILANTEROL 62.5/25MCG 7 PUFFS/INHALER INH SCH (10:17)
[2021-12-25] MEDS: DIGOXIN 0.125 MG TAB PO SCH (16:55)
--- NOTE | 2021-12-25 17:39 | Electrocardiogram Report ---
Test Reason : Blood Pressure : / mmHG Vent. Rate : 088 BPM Atrial Rate : 088 BPM P-R Int : 146 ms QRS Dur : 080 ms QT Int : 340 ms P-R-T Axes : -03 -14 088 degrees QTc Int : 411 ms Normal sinus rhythm with sinus arrhythmia ST and T wave changes concerning for ischemia Abnormal ECG When compared with ECG of 22-DEC-2021 11:49, Premature atrial complexes are no longer Present Confirmed by Jim Stephen ([id number]) on 12/25/2021 5:39:20 PM Referred By: REFERRED SELF Confirmed By:Sandro Stephen
[2021-12-25] MEDS: oxyCODONE HCL IR 5 MG TAB (IMMEDIATE RELEASE) PO PRN (21:23)
[2021-12-25] MEDS: MELATONIN 3 MG TAB PO PRN (21:23)
[2021-12-25] MEDS: cefTRIAXone SODIUM 1,000 MG in DEXTROSE 5% 50 ML IV SCH (21:24)
[2021-12-26] MEDS: metroNIDAZOLE 500 MG/100 ML BAG IV SCH ×3 (02:22→17:20)
[2021-12-26] MEDS: LEVOTHYROXINE SODIUM 100 MCG TABLET PO SCH (06:25)
[2021-12-26 07:24] LABS: Hematocrit (blood only) 28.8 % (34.1-44.9); Hemoglobin 9.2 g/dl (12.0-16.0)
[2021-12-26] MEDS: METOPROLOL SUCC 25MG EXT REL TAB PO SCH (07:29)
[2021-12-26] MEDS: UMECLIDINIUM/VILANTEROL 62.5/25MCG 7 PUFFS/INHALER INH SCH (07:32)
[2021-12-26 07:54] LABS: BUN Creatinine Ratio 19.1 (10-20); Creatinine Clr Calc Pharmacy 83.3 ml/min; Est GFR (African American) 106.6 ml/min; Magnesium 1.8 mg/dl (1.7-2.4); Phosphorus 3.2 mg/dl (2.5-4.9); Potassium 3.6 mmol/L (3.5-5.1)
--- NOTE | 2021-12-26 09:27 | Cardiology Progress Note ---
Date of Service December 26, 2021 Assessment & Plan (1) Rectal bleed: (2) Colitis: (3) NSVT (nonsustained ventricular tachycardia): (4) Prosthetic aortic valve stenosis: Plan: Hospital day 3 81-year-old female with history of bioprosthetic aortic valve replacement p erformed in 2009, and recent echocardiogram findings suggestive of severe prosthetic aortic valve stenosis, peak CW velocity at time of echo 12/04/2021 4.13 m/s, mean gradient 42 mmHg, calculated aortic valve area 0.4-0.5 cm. Patient presents off of anticoagulation, with abdominal pain, and bright red blood per rectum. Patient underwent EGD12/25/2021 with findings of inflammation from the hepatic f lexure to the cecum. There was an ulcerated nonobstructing mass described in the colonoscopy report 15 cm proximal to the anus which was oozing, perhaps the source of the bleeding, biopsies taken, malignancy certainly a consideration. -Continue supportive care. -Patient has been scheduled to see the comprehensive valve clinic at the [facility] today to discuss valve in valve transcatheter aortic valve implantation. I think it is most prudent for the patient to have deleted this appointment due to her current hospitalization and to reschedule for in the near future so that the pathology from her colonoscopy will be available. With regards to the NSVT. Electrolytes stable. A 30 beat run of NSVT occurred during sleep in the evening while she was prepping for colonoscopy, without recurrence thus far. Defer determination of need for ongoing antibiotics to GI/hospitalist service. Patient stable from a cardiology standpoint. No further testing recommended at present. Admission and Anticipated Discharge Date Admission Date: December 23, 2021 Subjective Patient seen in cardiology follow-up. Notes no chest discomfort or shortness of breath, reproducible right-sided chest pain with movement and deep inspiration consistent with her rib fractures. Telemetry reveals stable sinus rhythm in the 60s to 70s, with no recurrence of nonsustained ventricular tachycardia in the last 24 hours. Physical Exam Constitutional: + cachectic Respiratory: normal respiratory effort, lungs clear to auscultation Cardiovascular: Rate/Rhythm: regular rate Heart Sounds: + murmur (2/6 SM) Extremities: no edema Gastrointestinal (Abdomen): normal bowel sounds, soft, nontender, no hepatosplenomegaly Neurologic: PERRL, EOMI, accommodation nl, no face palsy, no dysarthria Results & Data ([facility]) Vital Signs (Past 12 Hours) Vital Signs Temp Pulse Pulse Resp BP Pulse Ox O2 Del Method 12/26/21 08:05 36.1 C L 67 16 110/61 94 Room Air 12/26/21 02:34 36.8 C 65 18 97/59 L 93 Room Air 12/26/21 00:20 71 12/25/21 22:05 36.8 C 71 18 120/66 95 Room Air Laboratory Results CBC 12/26/21 Range/Units 06:57 Hgb 9.2 L (12.0-16.0) g/dl Hct 28.8 L (34.1-44.9) % Comprehensive Metabolic Panel 12/26/21 Range/Units 06:57 Sodium 136 (136-145) mmol/L Potassium 3.6 (3.5-5.1) mmol/L Chloride 105 (98-107) mmol/L Carbon Dioxide 26 (21-32) mmol/L BUN 9 (6-23) mg/dl Creatinine 0.47 L (0.6-1.2) mg/dl Glucose 82 (70-99(Fasting)) mg/dl Calcium 8.0 L (8.5-10.1) mg/dl Intake and Output 12/25/21 12/26/21 12/26/21 22:59 06:59 14:59 Intake Total 560 / 1560 350 / 1560 Balance 560 / 1560 350 / 1560 Intake: IV 160 / 360 100 / 360 cefTRIAXone SODIUM 1,000 mg In 60 / 60 Dextrose 5% 50 ml @ 100 mls/hr IV Q24H [facility] Rx#:[id number] metroNIDAZOLE 500 mg In 100 ml 100 / 300 100 / 300 @ 100 mls/hr IV Q8H [facility] Rx#: [id number] Oral 400 / 1200 250 / 1200
[2021-12-26] MEDS ORDERED: POTASSIUM CHLORIDE CRTAB 20 MEQ TABCR PO STA (10:13)
--- NOTE | 2021-12-26 10:13 | Hospitalist Progress Note ---
Date of Service December 26, 2021 Assessment & Plan (1) Acute GI bleeding: Plan: Hematochezia Presenting admission with episode of bloody bowel movement CT abd pelvis showed evidence of a nonspecific colitis. Hemoglobin dropped from 11.9 on arrival to 8.9 current Hgb 9.2 stable Gastro on board plan for EGD and colonoscopy Now s/p EGD and colonoscopy EGD Impression: - Normal esophagus. - Small hiatal hernia. - Normal examined duodenum. - No specimens collected. Colonoscopy Impression: - The examined portion of the ileum was normal. - Inflammation was found from the hepatic flexure to the cecum. This was moderate in severity. Biopsied. - Normal mucosa from transverse colon to sigmoid colon. Biopsied. - Rule out malignancy, tumor at 15 cm proximal to the anus. Biopsied. - The distal rectum and anal verge are normal on retroflexion view. Recommendation: - Await pathology results. Stool for C. difficile and culture negative Continued IV antibiotic with ceftriaxone and metronidazole - can stop Abx per GI No PO steroid at this time. Await pathology results as outpatient. Cardiology was consulted for preop clearance Patient is considered optimized from a cardiac perspective without findings of acute volume overload with regards to sedation for colonoscopy as per cardiology Chronic HFpEf due to valvular heart disease s/p bioprosthetic avr in 2009 Last ECHO showed preserved left ventricular systolic function with ejection fraction 60 to 65%. worsening of bioprosthetic aortic stenosis compared to previous Cardiology following Pt has a follow up on to eval for aortic valve bioprosthesis - at this time needs to reschedule Continue metoprolol, dig NSVT -Episode of 30 beat of V. tach overnight, while prepping for endoscopy -Monitor electrolytes, continue close monitor on telemetry COPD nocturnal hypoxemia continue home inhalers Continue 2L of O2 at HS Stable Hypothyroidism continue levothyroxine DVT ppx: SCDS due to hematochezia Conditional code: Full code Admission and Anticipated Discharge Date Admission Date: December 23, 2021 Subjective Patient was seen and examined for follow-up rectal bleeding Underwent endoscopies yesterday. Overnight when doing prep for endoscopies pt had episode of 30 beat of V. tach. Currently patient is lying in bed, no acute distress She reports that she is feeling well overall, has some mild abdominal discomfort. Denies any fevers, chills, chest pain, palpitation, dizziness, shortness of breath. Review of Systems Review of Systems: All systems reviewed & are unremarkable except as noted in Subjective Physical Exam Physical Exam: General- No acute distress Head- atraumatic Eyes- PERRL, EOMI, ENT- oropharynx clear Neck- supple, no JVD Lungs- clear to auscultation Heart- regular rhythm; +murmur Abdomen- normal bowel sounds, soft, slightly tender to palp. Extremities- no calf tenderness, moves extremities Neuro- alert, oriented x 3; PERRL, EOMI; no facial palsy; no dysarthria, moves extremities Skin- warm & dry Results & Data Results & Data ([facility]) Vital Signs (Past 12 Hours) Vital Signs Temp Pulse Pulse Resp BP Pulse Ox O2 Del Method 12/26/21 08:05 36.1 C L 67 16 110/61 94 Room Air 12/26/21 02:34 36.8 C 65 18 97/59 L 93 Room Air 12/26/21 00:20 71 Laboratory Results 12/26/21 12/26/21 Range/Units 06:57 06:57 Hgb 9.2 L (12.0-16.0) g/dl Hct 28.8 L (34.1-44.9) % Sodium 136 (136-145) mmol/L Potassium 3.6 (3.5-5.1) mmol/L Chloride 105 (98-107) mmol/L Carbon Dioxide 26 (21-32) mmol/L Anion Gap 5 (3-11) BUN 9 (6-23) mg/dl Creatinine 0.47 L (0.6-1.2) mg/dl Est Cr Clr Drug Dosing 83.3 ml/min Est GFR ( Amer) 106.6 ml/min Est GFR (Non-Af Amer) 92.0 ml/min BUN/Creatinine Ratio 19.1 (10-20) Glucose 82 (70-99(Fasting)) mg/dl Calcium 8.0 L (8.5-10.1) mg/dl Phosphorus 3.2 (2.5-4.9) mg/dl Magnesium 1.8 (1.7-2.4) mg/dl Medications Administered Current Inpatient Medications Acetaminophen (Acetaminophen 325 Mg Tab) 650 mg PO Q4H PRN PRN Reason: Pain or Fever Stop: 01/22/22 02:20 Last Admin: 08/02/22 17:51 Dose: 650 mg Digoxin (Digoxin 0.125 Mg Tab) 0.125 mg PO DAILY@1600 [facility] Stop: 01/22/22 15:59 Last Admin: 12/25/21 16:55 Dose: 0.125 mg Metronidazole (Flagyl) 500 mg in 100 mls @ 100 mls/hr IV Q8H [facility] Stop: 01/02/22 09:59 Last Admin: 12/26/21 10:03 Dose: 100 mls/hr Ceftriaxone Sodium 1,000 mg/ (Dextrose) 60 mls @ 100 mls/hr IV Q24H [facility]; Protocol Stop: 01/02/22 21:59 Last Infusion: 12/25/21 22:33 Dose: Infused Promethazine HCl 6.25 mg/ (Sodium Chloride) 50.25 mls @ 201 mls/hr IV Q6H PRN PRN Reason: Nausea And Vomiting Stop: 01/22/22 02:20 Lorazepam 0.25 mg/ Syringe 0.375 mls @ 2 mls/min IV Q6H PRN PRN Reason: Anxiety Stop: 01/22/22 02:20 Last Admin: 12/24/21 22:29 Dose: 2 mls/min Levothyroxine Sodium (Levothyroxine Sodium 100 Mcg Tablet) 100 mcg PO DAILYBB [facility] Stop: 01/23/22 06:29 Last Admin: 12/26/21 06:25 Dose: 100 mcg Melatonin (Melatonin 3 Mg Tab) 3 mg PO HS PRN PRN Reason: Sleep Stop: 01/22/22 01:51 Last Admin: 12/25/21 21:23 Dose: 3 mg Metoprolol Succinate (Metoprolol Succ 25mg Ext Rel Tab) 12.5 mg PO DAILY [facility] Stop: 01/22/22 08:59 Last Admin: 12/26/21 07:29 Dose: 12.5 mg Miscellaneous (Mesalamine~Order Awaiting Action) 1 each N/A QS [facility] Stop: 01/22/22 07:59 Last Admin: 12/26/21 07:30 Dose: Not Given Morphine Sulfate (Morphine Sulfate 2 Mg/Ml Carp) 2 mg IV Q3H PRN PRN Reason: Pain Stop: 01/06/22 02:20 Oxycodone HCl (Oxycodone Hcl Ir 5 Mg Tab (Immediate Release)) 5 - 10 mg PO QID PRN PRN Reason: Pain Stop: 01/06/22 02:20 Last Admin: 12/25/21 21:23 Dose: 5 mg Umeclidinium/Vilanterol (Umeclidinium/Vilanterol 62.5/25mcg 7 Puffs/Inhaler) 1 puffs INH QAM [facility] Stop: 01/22/22 08:59 Last Admin: 12/26/21 07:32 Dose: 1 puffs
--- NOTE | 2021-12-26 10:37 | Communication Note ---
Date of Service: December 26, 2021 81-year-old with rectal bleeding, history of UC. Colonoscopy on 12/25/2021 with inflammation of the cecum, and likely tumor versus area of UC activity in the sigmoid. No GI indication for antibiotics. No GI indication for p.o. steroids at this time. Will address pathology results when available. Outpatient GI follow-up in the next month.
[2021-12-26] MEDS: LIDOCAINE 5% 1 PATCH TD SCH (10:58)
--- NOTE | 2021-12-26 11:56 | Discharge Summary ---
Date of Service December 26, 2021 Admission HPI Per Admitting Provider rectal bleeding Medical history significant for chronic diastolic heart failure (EF 60 to 65%, TTE 2021), valvular heart disease (mild to moderate MR, mild TR), pulmonary hypertension, PAF, bioprosthetic AVR stenosis, PVD, COPD, RLS, Crohn's disease, meningioma status post gamma knife surgery, sternal chondrosarcoma status post surgery, chronic hyponatremia, hypothyroidism, past tobacco abuse. Last confinement 2 weeks ago for atypical chest pain, decompensated heart failure During confinement, patient with hematochezia. EPEC PCR positive on testing. GI recommended resuming patient's mesalamine. Outpatient EGD colonoscopy next month if patient cardiac issues stable. 3 nights ago, patient jocelyn over a pillow ed leading to a fall with subsequent hitting the right side of the ribs. Pleuritic right-sided chest pain without shortness of breath. Patient consulted urgent care center 2 days ago. Patient found to have nondisplaced right ninth and 10th rib fractures. Pain medications prescribed by PCP. Yesterday, patient noted rectal bleeding about 4 episodes with worsening right- sided abdominal pain. No emesis. Some chills. Usual chest pain, shortness of breath from right-sided rib fractures. Patient brought to the ER for evaluation. Admission Exam Per Admitting Provider GENERAL: Slightly anxious, slightly uncomfortable, no respiratory distress SKIN: Pallor, warm HEENT: Pale palpebral conjunctivae, no ptosis, dry buccal mucosa NECK : Supple, no tenderness CHEST : Decreased breath sounds, right chest wall tenderness HEART : RRR, systolic murmur ABDOMEN: no distention, hypogastric tenderness EXTREMITIES : No LE swelling/tenderness, no other conspicuous deformities noted NEUROLOGIC : Coherent, no facial asymmetry, no other gross focality Principal Diagnosis GI bleed, colitis colon mass NSVT Discharge Exam General- No acute distress Head- atraumatic Eyes- PERRL, EOMI, ENT- oropharynx clear Neck- supple, no JVD Lungs- clear to auscultation Heart- regular rhythm; +murmur Abdomen- normal bowel sounds, soft, slightly tender to palp. Extremities- no calf tenderness, moves extremities Neuro- alert, oriented x 3; PERRL, EOMI; no facial palsy; no dysarthria, moves extremities Skin- warm & dry Discharge Data Allergies Allergy/AdvReac Type Severity Reaction Status Date / Time Penicillins Allergy Intermediate HIVES Verified 11/12/21 22:54 Consultations 12/22/21 23:14 ED Decision to Admit Stat 12/23/21 02:21 Consult Gastroenterology Routine 12/23/21 09:10 Consult Cardiology Routine Procedures Performed Operation Date: 12/25/21 16:00 Actual Procedures p Esophagogastroduodenoscopy - Hannah Cortez DO s Colonoscopy Biopsy Cytology - Hannah Cortez DO Ordered Studies 12/22/21 21:10 CT abd pelvis IV con only Urgent FINDINGS: Lung bases: The heart is mildly enlarged and without pericardial effusion. The coronary arteries and mitral annulus are densely calcified. The lung bases are clear noting bibasilar scarring/atelectasis. Liver: The contrast-enhanced liver is normal in size, contour, and attenuation. There is no intrahepatic biliary ductal dilatation. The hepatic veins and portal veins are patent. Left lobe hemangiomas measure up to 2.0 cm. Gallbladder: Unremarkable. Spleen: Normal in size and attenuation. Pancreas: Moderately atrophic and grossly unremarkable. Adrenal glands: Unremarkable. Kidneys: The contrast enhanced kidneys demonstrate cortical atrophy and are without hydronephrosis. The kidneys enhance symmetrically. A 3.8 cm cyst is noted on the left and a 1.5 cm exophytic cyst is seen on the right. Abdominal vasculature: The abdominal aorta is normal in course and caliber noting mild atherosclerotic calcification. Bowel: There is postoperative change from sigmoid colon resection with colocolonic anastomosis. No bowel obstruction is seen. There is wall thickening and mucosal hyperemia with surrounding inflammation involving the right colon consistent with a nonspecific colitis. Inflammatory changes also seen involving the sigmoid colon, greatest around the anastomosis. The cecum is located in the pelvis. The appendix is not identified and reported surgically absent. Peritoneum: There is no intraperitoneal free air or abdominal ascites. Lymphadenopathy: None. Pelvic viscera: The bladder is partially decompressed and grossly unremarkable. The uterus is surgically absent. No adnexal lesion is seen. Skeletal structures: The skeletal structures are osteopenic. There are acute right posterior 11th and 12th rib fractures. There are acute right lateral 8th through 10th rib fractures. There is an acute fracture of the right transverse process of L2. The bony pelvis and proximal femora appear intact. There is a mild chronic superior endplate compression deformity of T12. Moderate lumbosacral spondylosis is observed. No lytic or blastic lesions are seen. IMPRESSION: 1. Acute right-sided rib fractures and an acute right transverse process fracture of L2 as above. This is unchanged from today's earlier examination. 2. There is evidence of a nonspecific colitis. This is also unchanged from today's earlier examination. 3. There is no evidence of solid organ injury in the abdomen or pelvis. 4. Additional findings as above. ACT 112: Negative or not required by law. Electronically signed by: Erasto Bhakta M.D. 12/23/2021 7:48 AM Hospital Course (1) Acute GI bleeding: Hematochezia Presenting admission with episode of bloody bowel movement CT abd pelvis showed evidence of a nonspecific colitis. Hemoglobin dropped from 11.9 on arrival to 8.9 current Hgb 9.2 stable Gastro on board plan for EGD and colonoscopy Now s/p EGD and colonoscopy EGD Impression: - Normal esophagus. - Small hiatal hernia. - Normal examined duodenum. - No specimens collected. Colonoscopy Impression: - The examined portion of the ileum was normal. - Inflammation was found from the hepatic flexure to the cecum. This was moderate in severity. Biopsied. - Normal mucosa from transverse colon to sigmoid colon. Biopsied. - Rule out malignancy, tumor at 15 cm proximal to the anus. Biopsied. - The distal rectum and anal verge are normal on retroflexion view. Recommendation: - Await pathology results. Stool for C. difficile and culture negative Continued IV antibiotic with ceftriaxone and metronidazole - can stop Abx per GI No PO steroid at this time. Await pathology results as outpatient. Cardiology was consulted for preop clearance Patient is considered optimized from a cardiac perspective without findings of acute volume overload with regards to sedation for colonoscopy as per cardiology Chronic HFpEf due to valvular heart disease s/p bioprosthetic avr in 2009 Last ECHO showed preserved left ventricular systolic function with ejection fraction 60 to 65%. worsening of bioprosthetic aortic stenosis compared to previous Cardiology following Pt has a follow up on to eval for aortic valve bioprosthesis - at this time needs to reschedule Continue metoprolol, dig NSVT -Episode of 30 beat of V. tach overnight, while prepping for endoscopy -Monitor electrolytes, continue close monitor on telemetry - no more episodes noted, electrolytes wnl this AM COPD nocturnal hypoxemia continue home inhalers Continue 2L of O2 at HS Stable Hypothyroidism continue levothyroxine Total Time Total Time Spent Total Time Spent (In Minutes): 40 Discharge Plan Discharge Items Patient Disposition: Home - Self-Care Reason For Visit: SEPSIS, COLITIS Discharge Diagnosis: GI bleed, colitis colon mass NSVT Condition on Discharge: Fair Activity: Per Instructions section Non-emergency contact: Primary Care Provider, Securities Sales Associate and Senior Radiation Therapist Call non-emergency contact if: you have any medication questions and your symptoms worsen Follow-up/Referrals: Yahir Collado PA-C [Primary Care Provider] - (Date & Time 01/03/2022 12:00 PM Provider Maxwell Sellers MD Department General Internal Medicine [facility] ) Diet: Regular Diet Comment: Recommend to avoid any heavy or fried foods Addtl Attending Provider Instructions: Follow-up with your primary care doctor, the appointment was scheduled for you for January 03. You will also need to follow-up with gastroenterology. Biopsies were taken during your colonoscopy, you will need to follow-up with them for results. Also recommend to follow-up with your cardiology at [place], regarding your heart valve insufficiency. For pain, you can take Tylenol, up to 3000 mg a day. You can also take your oxycodone as prescribed. You can use lidocaine patch for rib fractures, often you can obtain this [id number] under the name Salonpas. Pending Studies at Discharge: Yes Studies:: Biopsies obtained during colonoscopy Stand-Alone Forms: My [facility], Smoking Cessation Medications and DC Order Prescriptions: Continued acetaminophen [Tylenol Arthritis Pain] 650 mg Tablet Extended Release 2 tab PO BID PRN (Reason: Pain) levothyroxine 112 mcg Capsule 112 mcg PO DAILY albuterol sulfate 90 mcg/actuation Hfa Aerosol Inhaler 2 puff INHALATION Q4H PRN (Reason: shortness of breath) digoxin 125 mcg Tablet 0.125 mg PO DAILY@1600 Qty: 30 0RF metoprolol succinate 25 mg tablet extended release 24 hr 12.5 mg PO DAILY Anoro Ellipta 62.5-25 mcg/actuation blister with device 1 inh INHALATION QAM gabapentin 100 mg capsule 100 mg PO DAILY (DME) Oxygen Home furosemide 20 mg Tablet 20 mg PO QAM Qty: 30 0RF mesalamine 1.2 gram tablet,delayed release (DR/EC) 4.8 g PO DAILY 30 Days Qty: 120 0RF oxycodone 5 mg tablet 5 mg PO Q8H PRN (Reason: pain) Qty: 31 0RF Discharge Orders: Discharge Order (Routine); Ordered 12/26/21 Ordered By: Kamar Mathis Admission Data Admit Date/Time: 12/23/21 01:04 Attending Provider: Kamar Mathis Admit Provider: Jae Yan Primary Care Provider: Yahir Collado Other Providers: Jae Yan ; Taylor Whaley ; Jeanne Olvera ; Jazmine Villatoro ; Lydia Monsivais ; Hernan Mckeon ; Gauri Baker ; Eduar Beckham ; Eliezer Grace ; Ebony Sim ; Hannah Cortez ; Velma Nguyen ; Soledad Camilo ; Radha Rutherford ; David Seaman ; Gabe Garza ; Rajesh Jordan ; Judd Fontenot ; Antony Edwards ; Tyson Sevilla ; Ritu Vasquez ; Barbara Summers ; Pastora Arzate ; Hardeep Greco ; Enzo Mark Other Interventions: Discharge Summary Assessment (RN) Last Done: 12/26/21 11:51
[2021-12-26] MEDS ORDERED: SODIUM CHLORIDE 0.9% 1000ML 250 ML IV ONE (12:52)
[2021-12-26] MEDS ORDERED: SODIUM CHLORIDE 0.9% 1000ML 500 ML IV ONE (13:51)
[2021-12-26] MEDS ORDERED: FAMOTIDINE 20 MG in SYRINGE 3 ML IV ONE (14:45)
[2021-12-26] MEDS: DIGOXIN 0.125 MG TAB PO SCH (15:22)
[2021-12-26] MEDS: oxyCODONE HCL IR 5 MG TAB (IMMEDIATE RELEASE) PO PRN (21:35)
[2021-12-26] MEDS: MELATONIN 3 MG TAB PO PRN (21:36)
[2021-12-27] MEDS: metroNIDAZOLE 500 MG/100 ML BAG IV SCH ×2 (01:36→09:32)
[2021-12-27] MEDS: LEVOTHYROXINE SODIUM 100 MCG TABLET PO SCH (06:18)
--- NOTE | 2021-12-27 07:31 | Hospitalist Progress Note ---
Date of Service December 27, 2021 Assessment & Plan (1) Acute GI bleeding: Plan: Hematochezia Presenting admission with episode of bloody bowel movement CT abd pelvis showed evidence of a nonspecific colitis. Hemoglobin dropped from 11.9 on arrival to 8.9 current Hgb 9.2 stable Gastro on board plan for EGD and colonoscopy Now s/p EGD and colonoscopy EGD Impression: - Normal esophagus. - Small hiatal hernia. - Normal examined duodenum. - No specimens collected. Colonoscopy Impression: - The examined portion of the ileum was normal. - Inflammation was found from the hepatic flexure to the cecum. This was moderate in severity. Biopsied. - Normal mucosa from transverse colon to sigmoid colon. Biopsied. - Rule out malignancy, tumor at 15 cm proximal to the anus. Biopsied. - The distal rectum and anal verge are normal on retroflexion view. Recommendation: - Await pathology results. Stool for C. difficile and culture negative Continued IV antibiotic with ceftriaxone and metronidazole - can stop Abx per GI Pathology results consistent with UC, no carcinoma. Prednisone taper by GI: 40 mg daily x1 week, 35 mg daily x1 week, 30 mg daily x1 week, 25 mg daily x1 week, 20 mg daily x1 week. Follow up w/ GI - January 22 at 12:30 p.m., also has an appointment with Dr. Beckham in March. Cardiology was consulted for preop clearance Patient is considered optimized from a cardiac perspective without findings of acute volume overload with regards to sedation for colonoscopy as per cardiology Chronic HFpEf due to valvular heart disease s/p bioprosthetic avr in 2009 Last ECHO showed preserved left ventricular systolic function with ejection fraction 60 to 65%. worsening of bioprosthetic aortic stenosis compared to previous Cardiology following Pt has a follow up on to eval for aortic valve bioprosthesis - at this time needs to reschedule Continue metoprolol, dig NSVT -Episode of 30 beat of V. tach overnight, while prepping for endoscopy -Monitor electrolytes, continue close monitor on telemetry - no more episodes noted, electrolytes wnl this AM COPD nocturnal hypoxemia continue home inhalers Continue 2L of O2 at HS Stable Hypothyroidism continue levothyroxine Admission and Anticipated Discharge Date Admission Date: December 23, 2021 Subjective Patient was seen and examined for follow-up rectal bleeding Underwent endoscopies -biopsies consistent with UC. Overnight when doing prep for endoscopies pt had episode of 30 beat of V. tach. No other episodes noted. Currently patient is lying in bed, no acute distress She reports that she is feeling well overall. Denies any fevers, chills, chest pain, palpitation, dizziness, shortness of breath. Minimal abd. discomfort. Pt is eager for DC. Review of Systems Review of Systems: All systems reviewed & are unremarkable except as noted in Subjective Physical Exam Physical Exam: General- No acute distress Head- atraumatic Eyes- PERRL, EOMI, ENT- oropharynx clear Neck- supple, no JVD Lungs- clear to auscultation Heart- regular rhythm; +murmur Abdomen- normal bowel sounds, soft, slightly tender to palp. Extremities- no calf tenderness, moves extremities Neuro- alert, oriented x 3; PERRL, EOMI; no facial palsy; no dysarthria, moves extremities Skin- warm & dry Results & Data Results & Data ([facility]) Vital Signs (Past 12 Hours) Vital Signs Temp Pulse Pulse Resp BP BP Pulse Ox 12/26/21 22:55 73 12/27/21 03:01 36.6 C 75 18 104/44 L 96 12/26/21 23:02 37.3 C 72 16 81/45 L 94 12/26/21 19:42 37 C 73 18 105/74 95 O2 Del Method 12/26/21 22:55 12/27/21 03:01 Room Air 12/26/21 23:02 Room Air 12/26/21 19:42 Room Air Laboratory Results 12/27/21 12/27/21 Range/Units 07:10 07:10 WBC 8.47 (4.8-10.8) K/ul RBC 2.86 L (3.93-5.22) M/uL Hgb 9.3 L (12.0-16.0) g/dl Hct 28.9 L (34.1-44.9) % MCV 101.0 H (80.0-100.0) fL MCH 32.5 (25.0-34.0) pg MCHC 32.2 (32.0-36.0) g/dL RDW Std Deviation 47.0 H (36.4-46.3) fL RDW Coeff of Brendon 12.7 (11.5-14.5) % Plt Count 136 (130-400) K/uL MPV 8.7 L (9.4-12.3) fL Sodium 136 (136-145) mmol/L Potassium 4.0 (3.5-5.1) mmol/L Chloride 106 (98-107) mmol/L Carbon Dioxide 28 (21-32) mmol/L Anion Gap 2 L (3-11) BUN 11 (6-23) mg/dl Creatinine 0.58 L (0.6-1.2) mg/dl Est Cr Clr Drug Dosing 67.1 ml/min Est GFR ( Amer) 99.5 ml/min Est GFR (Non-Af Amer) 85.8 ml/min BUN/Creatinine Ratio 19.0 (10-20) Glucose 88 (70-99(Fasting)) mg/dl Calcium 8.0 L (8.5-10.1) mg/dl Phosphorus 3.6 (2.5-4.9) mg/dl Magnesium 1.9 (1.7-2.4) mg/dl Medications Administered Current Inpatient Medications Acetaminophen (Acetaminophen 325 Mg Tab) 650 mg PO Q4H PRN PRN Reason: Pain or Fever Stop: 01/22/22 02:20 Last Admin: 12/24/21 17:51 Dose: 650 mg Digoxin (Digoxin 0.125 Mg Tab) 0.125 mg PO DAILY@1600 [facility] Stop: 01/22/22 15:59 Last Admin: 12/26/21 15:22 Dose: 0.125 mg Metronidazole (Flagyl) 500 mg in 100 mls @ 100 mls/hr IV Q8H [facility] Stop: 01/02/22 09:59 Last Infusion: 12/27/21 02:40 Dose: Infused Promethazine HCl 6.25 mg/ (Sodium Chloride) 50.25 mls @ 201 mls/hr IV Q6H PRN PRN Reason: Nausea And Vomiting Stop: 01/22/22 02:20 Lorazepam 0.25 mg/ Syringe 0.375 mls @ 2 mls/min IV Q6H PRN PRN Reason: Anxiety Stop: 01/22/22 02:20 Last Admin: 12/24/21 22:29 Dose: 2 mls/min Levothyroxine Sodium (Levothyroxine Sodium 100 Mcg Tablet) 100 mcg PO DAILYBB [facility] Stop: 01/23/22 06:29 Last Admin: 12/27/21 06:18 Dose: 100 mcg Lidocaine (Lidocaine 5% 1 Patch) 1 patch TD QAM [facility] Stop: 01/26/22 08:59 Last Admin: 12/26/21 10:58 Dose: 1 patch Melatonin (Melatonin 3 Mg Tab) 3 mg PO HS PRN PRN Reason: Sleep Stop: 01/22/22 01:51 Last Admin: 12/26/21 21:36 Dose: 3 mg Metoprolol Succinate (Metoprolol Succ 25mg Ext Rel Tab) 12.5 mg PO DAILY [facility] Stop: 01/22/22 08:59 Last Admin: 12/26/21 07:29 Dose: 12.5 mg Miscellaneous (Mesalamine~Order Awaiting Action) 1 each N/A QS [facility] Stop: 01/22/22 07:59 Last Admin: 12/26/21 23:32 Dose: Not Given Miscellaneous (Remove Lidoderm Patch) 1 each N/A DAILY@2100 [facility] Stop: 01/25/22 20:59 Last Admin: 12/26/21 20:16 Dose: 1 each Morphine Sulfate (Morphine Sulfate 2 Mg/Ml Carp) 2 mg IV Q3H PRN PRN Reason: Pain Stop: 01/06/22 02:20 Oxycodone HCl (Oxycodone Hcl Ir 5 Mg Tab (Immediate Release)) 5 - 10 mg PO QID PRN PRN Reason: Pain Stop: 01/06/22 02:20 Last Admin: 12/26/21 21:35 Dose: 5 mg Umeclidinium/Vilanterol (Umeclidinium/Vilanterol 62.5/25mcg 7 Puffs/Inhaler) 1 puffs INH QAM [facility] Stop: 01/22/22 08:59 Last Admin: 12/26/21 07:32 Dose: 1 puffs
[2021-12-27 08:15] LABS: Hematocrit (blood only) 28.9 % (34.1-44.9); Hemoglobin 9.3 g/dl (12.0-16.0); Mean Corpuscular Hemoglobin 32.5 pg (25.0-34.0); Mean Corpuscular Hgb Conc 32.2 g/dL (32.0-36.0); Mean Platelet Volume 8.7 fL (9.4-12.3); Platelet Count 136 K/uL (130-400); RDW Coefficient of Variation 12.7 % (11.5-14.5); Red Blood Count 2.86 M/uL (3.93-5.22); White Blood Count 8.47 K/ul (4.8-10.8)
[2021-12-27] MEDS: METOPROLOL SUCC 25MG EXT REL TAB PO SCH (08:19)
[2021-12-27] MEDS: LIDOCAINE 5% 1 PATCH TD SCH (08:19)
[2021-12-27] MEDS: UMECLIDINIUM/VILANTEROL 62.5/25MCG 7 PUFFS/INHALER INH SCH (08:19)
[2021-12-27 08:35] LABS: Creatinine Clr Calc Pharmacy 67.1 ml/min; Est GFR (African American) 99.5 ml/min; Est GFR (Non-African American) 85.8 ml/min; Magnesium 1.9 mg/dl (1.7-2.4); Phosphorus 3.6 mg/dl (2.5-4.9)
[2021-12-27] MEDS ORDERED: SODIUM CHLORIDE 0.9% 1000ML 500 ML IV ONE (08:41)
--- NOTE | 2021-12-27 09:28 | Cardiology Progress Note ---
Date of Service December 27, 2021 Assessment & Plan (1) Rectal bleed: (2) Colitis: (3) NSVT (nonsustained ventricular tachycardia): (4) Prosthetic aortic valve stenosis: Plan: Hospital day 4 r 81-year-old female with history of bioprosthetic aortic valve replacement performed in 2009, and recent echocardiogram findings suggestive of severe prosthetic aortic valve stenosis, peak CW velocity at time of echo 12/04/2021 4.13 m/s, mean gradient 42 mmHg, calculated aortic valve area 0.4-0.5 cm. Patient presents off of anticoagulation, with abdominal pain, and bright red blood per rectum. Patient underwent EGD12/25/2021 with findings of inflammation from the hepatic flexure to the cecum. There was an ulcerated nonobstructing mass described in the colonoscopy report 15 cm proximal to the anus which was oozing, perhaps the source of the bleeding, biopsies taken, malignancy certainly a consideration. -Patient with single 30 beat run of nonsustained ventricular tachycardia followed by a 5 beat run in the implementation engineer hours while prepping for colonoscopy, without recurrence. Continue prior to arrival metoprolol succinate treatment. Hemoglobin electrolytes stable today 12/27/2021. Patient stable from cardiac perspective for discharge. Follow-up with valve clinic, and [facility] discussed valve in valve TAVR after colonoscopy pathology available. Admission and Anticipated Discharge Date Admission Date: December 23, 2021 Subjective Patient seen in cardiology follow-up. She is in good spirits. Telemetry reveals sinus rhythm in the 60s without arrhythmia overnight. Patient denies any recurrent blood per rectum in the last 24 hours. Physical Exam Constitutional: + cachectic Respiratory: normal respiratory effort, lungs clear to auscultation Cardiovascular: Rate/Rhythm: regular rate Heart Sounds: + murmur (2/6 SM) Extremities: no edema Gastrointestinal (Abdomen): normal bowel sounds, soft, nontender, no hepatosplenomegaly Neurologic: PERRL, EOMI, accommodation nl, no face palsy, no dysarthria Results & Data ([facility]) Vital Signs (Past 12 Hours) Vital Signs Temp Pulse Pulse Resp BP BP Pulse Ox 12/27/21 08:04 65 12/27/21 08:02 36.6 C 60 19 95/56 L 94 12/26/21 22:55 73 12/27/21 03:01 36.6 C 75 18 104/44 L 96 08/04/22 23:02 37.3 C 72 16 81/45 L 94 O2 Del Method 12/27/21 08:04 12/27/21 08:02 Room Air 12/26/21 22:55 12/27/21 03:01 Room Air 12/26/21 23:02 Room Air Laboratory Results CBC 12/27/21 Range/Units 07:10 WBC 8.47 (4.8-10.8) K/ul RBC 2.86 L (3.93-5.22) M/uL Hgb 9.3 L (12.0-16.0) g/dl Hct 28.9 L (34.1-44.9) % Plt Count 136 (130-400) K/uL Comprehensive Metabolic Panel 12/27/21 Range/Units 07:10 Sodium 136 (136-145) mmol/L Potassium 4.0 (3.5-5.1) mmol/L Chloride 106 (98-107) mmol/L Carbon Dioxide 28 (21-32) mmol/L BUN 11 (6-23) mg/dl Creatinine 0.58 L (0.6-1.2) mg/dl Glucose 88 (70-99(Fasting)) mg/dl Calcium 8.0 L (8.5-10.1) mg/dl Intake and Output 12/26/21 12/27/21 12/27/21 22:59 06:59 14:59 Intake Total 1040 / 1690 300 / 1690 Balance 1040 / 1690 300 / 1690 Intake: IV 600 / 1050 100 / 1050 Sodium Chloride 0.9% 1000ML 500 500 / 500 ml @ 80 mls/hr IV .Q6H15M ONE Rx#:[id number] metroNIDAZOLE 500 mg In 100 ml 100 / 300 100 / 300 @ 100 mls/hr IV Q8H SALLY Rx#: [id number] Oral 440 / 640 200 / 640 Other: # Unmeasured Voids 1 Weight 56.8 kg Weight Measurement Method Built in [facility]
--- NOTE | 2021-12-27 10:22 | Communication Note ---
Date of Service: December 27, 2021 Colon Biopsies with ulcerative colitis. Dr. Vega notified of results. Soft/low-fiber diet. Please send home on prednisone 40 mg daily x1 week, 35 mg daily x1 week, 30 mg daily x1 week, 25 mg daily x1 week, 20 mg daily x1 week. Recheck in the GI office with myself on January 22 at 12:30 p.m. and has an appointment with Dr. Beckham in March. [email or web address] for discharge from a GI perspective.
[2021-12-27] MEDS ORDERED: predniSONE 20 MG TAB PO STA (11:07)
--- NOTE | 2021-12-27 11:30 | Discharge Summary ---
Date of Service December 27, 2021 Admission HPI Per Admitting Provider rectal bleeding Medical history significant for chronic diastolic heart failure (EF 60 to 65%, TTE 2021), valvular heart disease (mild to moderate MR, mild TR), pulmonary hypertension, PAF, bioprosthetic AVR stenosis, PVD, COPD, RLS, Crohn's disease, meningioma status post gamma knife surgery, sternal chondrosarcoma status post surgery, chronic hyponatremia, hypothyroidism, past tobacco abuse. Last confinement 2 weeks ago for atypical chest pain, decompensated heart failure During confinement, patient with hematochezia. EPEC PCR positive on testing. GI recommended resuming patient's mesalamine. Outpatient EGD colonoscopy next month if patient cardiac issues stable. 3 nights ago, patient jocelyn over a pillow ed leading to a fall with subsequent hitting the right side of the ribs. Pleuritic right-sided chest pain without shortness of breath. Patient consulted urgent care center 2 days ago. Patient found to have nondisplaced right ninth and 10th rib fractures. Pain medications prescribed by PCP. Yesterday, patient noted rectal bleeding about 4 episodes with worsening right- sided abdominal pain. No emesis. Some chills. Usual chest pain, shortness of breath from right-sided rib fractures. Patient brought to the ER for evaluation. Admission Exam Per Admitting Provider GENERAL: Slightly anxious, slightly uncomfortable, no respiratory distress SKIN: Pallor, warm HEENT: Pale palpebral conjunctivae, no ptosis, dry buccal mucosa NECK : Supple, no tenderness CHEST : Decreased breath sounds, right chest wall tenderness HEART : RRR, systolic murmur ABDOMEN: no distention, hypogastric tenderness EXTREMITIES : No LE swelling/tenderness, no other conspicuous deformities noted NEUROLOGIC : Coherent, no facial asymmetry, no other gross focality Principal Diagnosis GI bleed, colitis, colon mass - secondary to ulcerative colitis NSVT Discharge Exam General- No acute distress Head- atraumatic Eyes- PERRL, EOMI, ENT- oropharynx clear Neck- supple, no JVD Lungs- clear to auscultation Heart- regular rhythm; +murmur Abdomen- normal bowel sounds, soft, slightly tender to palp. Extremities- no calf tenderness, moves extremities Neuro- alert, oriented x 3; PERRL, EOMI; no facial palsy; no dysarthria, moves extremities Skin- warm & dry Discharge Data Allergies Allergy/AdvReac Type Severity Reaction Status Date / Time Penicillins Allergy Intermediate HIVES Verified 11/12/21 22:54 Consultations 12/22/21 23:14 ED Decision to Admit Stat 12/23/21 02:21 Consult Gastroenterology Routine 12/23/21 09:10 Consult Cardiology Routine Procedures Performed Operation Date: 12/25/21 16:00 Actual Procedures p Esophagogastroduodenoscopy - Hannah Cortez DO s Colonoscopy Biopsy Cytology - Hannah Crotez DO Ordered Studies 12/22/21 21:10 CT abd pelvis IV con only Urgent FINDINGS: Lung bases: The heart is mildly enlarged and without pericardial effusion. The coronary arteries and mitral annulus are densely calcified. The lung bases are clear noting bibasilar scarring/atelectasis. Liver: The contrast-enhanced liver is normal in size, contour, and attenuation. There is no intrahepatic biliary ductal dilatation. The hepatic veins and portal veins are patent. Left lobe hemangiomas measure up to 2.0 cm. Gallbladder: Unremarkable. Spleen: Normal in size and attenuation. Pancreas: Moderately atrophic and grossly unremarkable. Adrenal glands: Unremarkable. Kidneys: The contrast enhanced kidneys demonstrate cortical atrophy and are without hydronephrosis. The kidneys enhance symmetrically. A 3.8 cm cyst is noted on the left and a 1.5 cm exophytic cyst is seen on the right. Abdominal vasculature: The abdominal aorta is normal in course and caliber noting mild atherosclerotic calcification. Bowel: There is postoperative change from sigmoid colon resection with colocolonic anastomosis. No bowel obstruction is seen. There is wall thickening and mucosal hyperemia with surrounding inflammation involving the right colon consistent with a nonspecific colitis. Inflammatory changes also seen involving the sigmoid colon, greatest around the anastomosis. The cecum is located in the pelvis. The appendix is not identified and reported surgically absent. Peritoneum: There is no intraperitoneal free air or abdominal ascites. Lymphadenopathy: None. Pelvic viscera: The bladder is partially decompressed and grossly unremarkable. The uterus is surgically absent. No adnexal lesion is seen. Skeletal structures: The skeletal structures are osteopenic. There are acute right posterior 11th and 12th rib fractures. There are acute right lateral 8th through 10th rib fractures. There is an acute fracture of the right transverse process of L2. The bony pelvis and proximal femora appear intact. There is a mild chronic superior endplate compression deformity of T12. Moderate lumbosacral spondylosis is observed. No lytic or blastic lesions are seen. IMPRESSION: 1. Acute right-sided rib fractures and an acute right transverse process fracture of L2 as above. This is unchanged from today's earlier examination. 2. There is evidence of a nonspecific colitis. This is also unchanged from today's earlier examination. 3. There is no evidence of solid organ injury in the abdomen or pelvis. 4. Additional findings as above. ACT 112: Negative or not required by law. Electronically signed by: Erasto Bhakta M.D. 12/23/2021 7:48 AM Hospital Course (1) Acute GI bleeding: Hematochezia Presenting admission with episode of bloody bowel movement CT abd pelvis showed evidence of a nonspecific colitis. Hemoglobin dropped from 11.9 on arrival to 8.9 current Hgb 9.2 stable Gastro on board plan for EGD and colonoscopy Now s/p EGD and colonoscopy EGD Impression: - Normal esophagus. - Small hiatal hernia. - Normal examined duodenum. - No specimens collected. Colonoscopy Impression: - The examined portion of the ileum was normal. - Inflammation was found from the hepatic flexure to the cecum. This was moderate in severity. Biopsied. - Normal mucosa from transverse colon to sigmoid colon. Biopsied. - Rule out malignancy, tumor at 15 cm proximal to the anus. Biopsied. - The distal rectum and anal verge are normal on retroflexion view. Recommendation: - Await pathology results. Stool for C. difficile and culture negative Continued IV antibiotic with ceftriaxone and metronidazole while inpt - can stop Abx per GI Pathology results consistent with UC, no carcinoma. Prednisone taper by GI: 40 mg daily x1 week, 35 mg daily x1 week, 30 mg daily x1 week, 25 mg daily x1 week, 20 mg daily x1 week. Follow up w/ GI - January 22 at 12:30 p.m., also has an appointment with Dr. Beckham in March. Cardiology was consulted for preop clearance Patient is considered optimized from a cardiac perspective without findings of acute volume overload with regards to sedation for colonoscopy as per cardiology Chronic HFpEf due to valvular heart disease s/p bioprosthetic avr in 2009 Last ECHO showed preserved left ventricular systolic function with ejection fraction 60 to 65%. worsening of bioprosthetic aortic stenosis compared to pr evious Cardiology following Pt has a follow up on Thursday to eval for aortic valve bioprosthesis - at this time needs to reschedule Continue metoprolol, dig NSVT -Episode of 30 beat of V. tach overnight, while prepping for endoscopy -Monitor electrolytes, continue close monitor on telemetry - no more episodes noted, electrolytes wnl this AM COPD nocturnal hypoxemia continue home inhalers Continue 2L of O2 at HS Stable Hypothyroidism continue levothyroxine Total Time Total Time Spent Total Time Spent (In Minutes): 40 Discharge Plan Discharge Items Patient Disposition: Home - Self-Care Reason For Visit: SEPSIS, COLITIS Discharge Diagnosis: GI bleed, colitis, colon mass - secondary to ulcerative colitis NSVT Condition on Discharge: Fair Activity: Per Instructions section Non-emergency contact: Primary Care Provider, Fuse Spooler and Clinical Trainer Call non-emergency contact if: you have any medication questions and your symptoms worsen Follow-up/Referrals: Yahir Collado PA-C [Primary Care Provider] - (Date & Time 01/03/2022 12:00 PM Provider Maxwell Sellers MD Department General Internal Medicine [facility] ) Diet: Regular and Low Fiber Diet Comment: Recommend soft, low-fiber foods Addtl Attending Provider Instructions: Follow-up with your primary care doctor, the appointment was scheduled for you for January 03. You will also need to follow-up with gastroenterology, the next appointment is scheduled for you for January 22, at 12:30 PM. The biopsy obtained during colonoscopy, showed ulcerative colitis. Take predni sone as prescribed. 40 mg daily x1 week, 35 mg daily x1 week, 30 mg daily x1 week, 25 mg daily x1 week, 20 mg daily x1 week. Prednisone 40 mg daily sent to your pharmacy, for 1 week. Your primary care provider will prescribe the rest of prednisone taper at your next appointment. Recommend to follow-up with your cardiology at [place], regarding your heart valve insufficiency. For pain, you can take Tylenol, up to 3000 mg a day. You can also take your oxycodone as prescribed. You can use lidocaine patch for rib fractures, often you can obtain this [id number] under the name Salonpas. Pending Studies at Discharge: No Stand-Alone Forms: [employer], Smoking Cessation Medications and DC Order Prescriptions: New prednisone 20 mg tablet 40 mg PO DAILY 7 Days Qty: 14 0RF pantoprazole 20 mg tablet,delayed release (DR/EC) 20 mg PO DAILY Qty: 30 0RF Continued acetaminophen [Tylenol Arthritis Pain] 650 mg Tablet Extended Release 2 tab PO BID PRN (Reason: Pain) levothyroxine 112 mcg Capsule 112 mcg PO DAILY albuterol sulfate 90 mcg/actuation Hfa Aerosol Inhaler 2 puff INHALATION Q4H PRN (Reason: shortness of breath) digoxin 125 mcg Tablet 0.125 mg PO DAILY@1600 Qty: 30 0RF metoprolol succinate 25 mg tablet extended release 24 hr 12.5 mg PO DAILY Anoro Ellipta 62.5-25 mcg/actuation blister with device 1 inh INHALATION QAM gabapentin 100 mg capsule 100 mg PO DAILY (DME) Oxygen Home furosemide 20 mg Tablet 20 mg PO QAM Qty: 30 0RF mesalamine 1.2 gram tablet,delayed release (DR/EC) 4.8 g PO DAILY 30 Days Qty: 120 0RF oxycodone 5 mg tablet 5 mg PO Q8H PRN (Reason: pain) Qty: 31 0RF Discharge Orders: Discharge Order (Routine); Ordered 12/27/21 Ordered By: Kamar Mathis Admission Data Admit Date/Time: 12/23/21 01:04 Attending Provider: Kamar Mathis Admit Provider: Jae Yan Primary Care Provider: Yahir Collado Other Providers: Jae Yan ; Taylor Whaley ; Jeanne Olvera ; Jazmine Villatoro ; Lydia Monsivais ; Hernan Mckeon ; Gauri Baker ; Eduar Beckham ; Eliezer Grace ; Ebony Sim ; Hannah Hare ; Velma Nguyen ; Soledad Camilo ; Radha Rutherford ; David Seaman ; Gabe Garza ; Rajesh Jordan ; Judd Fontenot ; Antony Edwards ; Tyson Sevilla ; Ritu Vasquez ; Barbara Summers ; Pastora Arzate ; Hardeep Greco ; Enzo Mark Other Interventions: Discharge Summary Assessment (RN) Last Done: 12/26/21 11:51
== END 2021-12-27 13:52 | disposition home or self-care (01) | DRG 386 ==
LOC: ED 21:01 → 2N 12-23 01:04 → SUATTDRO 12-23 01:04 → 2N 12-23 01:58
DX: Z92.3 Personal history of irradiation; E03.9 Hypothyroidism, unspecified; I50.32 Chronic diastolic (congestive) heart failure; E87.1 Hypo-osmolality and hyponatremia; I27.20 Pulmonary hypertension, unspecified; K51.911 Ulcerative colitis, unspecified with rectal bleeding; S32.028A Other fracture of second lumbar vertebra, initial encounter for closed fracture; I08.1 Rheumatic disorders of both mitral and tricuspid valves; Z79.890 Hormone replacement therapy; R63.4 Abnormal weight loss; Z88.0 Allergy status to penicillin; Y92.009 Unspecified place in unspecified non-institutional (private) residence as the place of occurrence of the external cause; I47.2 Ventricular tachycardia; S22.41XA Multiple fractures of ribs, right side, initial encounter for closed fracture; W19.XXXA Unspecified fall, initial encounter; Z95.2 Presence of prosthetic heart valve; Z87.891 Personal history of nicotine dependence; I47.1 Supraventricular tachycardia

== ENCOUNTER 2023-11-10 17:01 | Observation (INO) ==
--- NOTE | 2023-11-10 17:11 | ED Triage Note ---
Date of Service November 10, 2023 Provider in Triage Author: Saji Everett History of Present Illness This patient was briefly evaluated while in triage. An abbreviated physical exam was performed. This patient is a 83-year-old Female who presents to the ED with his daughter via private transportation for evaluation of hypotension and dizziness. The patient had an appointment with her family doctor today, with a blood pressure of 50/20. Patient reports feeling dizzy as well. Patient also has an oncologist, who is concerned that she has internal bleeding. The patient reports that she does not look at her stools to see if she has had any blood. Physical Exam CONSTITUTIONAL: Healthy and well nourished. HEENT: Mucous membranes are dry. RESPIRATORY: Clear to auscultation bilaterally with no wheezing, crackles, rhonchi or stridor. CARDIOVASCULAR: Bradycardic rhythm with a grade 2 out of 6 systolic ejection murmur. INTEGUMENTARY: No rash or other significant dermatologic conditions noted. HEMATOLOGIC: No ecchymosis or petechiae. PSYCHIATRIC: Positive affect. NEUROLOGIC: No focal neurologic deficits noted. Initial orders for labs and / or imaging were placed and patient was placed in the waiting area until a bed is available. Please see further documentation for the full ED course.
--- NOTE | 2023-11-10 17:40 | Emergency Department Note ---
Impression & Plan Acute hypotension, Dizziness ED Provider Note NAME: KARTHIK TATE AGE: 83 SEX: Female INFORMANT: Patient and daughter ED PROVIDER(S): Akil Fowler MD CHIEF COMPLAINT: Hypotension PLAN: Disposition: Admitted Outpatient prescription management: none Referral: None MEDICAL DECISION MAKING: Patient presented because of hypotension. She was mildly hypotensive here. She was given IV fluids. There was some concern for dehydration. Daughter does note that she is on diuretic. Patient had a workup initiated here she was found to have a flutter on ECG. Daughter notes she does have a history of A-fib. Patient does have KRIS and mild pancytopenia. Minimal elevation of LFTs. Tickborne labs added. In light of the hypotension patient will need further management in the hospital. Consultation was placed with Dr. Jae Yan, [facility] hospitalist service. Care/management discussed with: [facility] Worker Level of care consideration(s): After review of the information above and other included data, I feel the patient requires escalation of care to admission. Triage Nursing notes: reviewed and agree them. Vital Signs: reviewed and remarkable for hypotension Additional History obtained from: Patient's daughter. She does note decreased p.o. intake patient is still using furosemide. Chronic Medical/Social Conditions affecting care: A-fib, Crohn's disease Prior/ Outside/ External records reviewed: none Differential Diagnosis: Infection, dehydration, metabolic abnormality, hypo/hyperglycemia, electrolyte disturbance, anemia, hypoxia, cardiac sources, intracerebral event, toxicologic, neurologic, as well as other pathologies. Diagnostics, independently interpreted by me: ECG: Twelve-lead ECG reveals a flutter with 4 1 conduction at 50 bpm. LVH. Anteroseptal Q waves. Nonspecific ST. When compared to prior ECG the A-flutter is replaced sinus rhythm Cardiac Monitoring: Cardiac monitoring ordered by me: The patient was placed on continuous cardiac monitoring and observed. It revealed slow a flutter at 55 bpm Medical decision rules: none Imaging studies: Chest x-ray. Findings: A chest x-ray was performed and revealed no pneumothorax, effusion, infiltrate, pulmonary edema, free air under the diaphragm, or wide mediastinum. Impression: No acute disease. Head CT: A noncontrast CT scan of the head was performed and was negative for tumor, fracture, intracranial hemorrhage, or other acute pathology. HPI: 83 year old Female arrives for evaluation of hypotension. This started this afternoon and was found by PCP. Daughter noted visible dizziness and difficulty standing today. The patient also notes the following associated symptoms, tiredness. The patient has taken no medicaiton relieving factors. Current pain is rated as 0/10. Pt denies LOC, headache, fevers, chills, diaphoresis, visual changes, new neck pain, chest pain, breathing difficulties, nausea, vomiting, abdominal pain, back pain, melena, hematochezia, urinary symptoms, numbness, lymphadenopathy, rash, or other complaints. . PAST MEDICAL HISTORY: See Below, chronic neck pain, crohns disease PAST SURGICAL HISTORY: See Below, bowel resection SOCIAL HISTORY: See Below, quit smoking HOME MEDICATIONS: See Below ALLERGIES: See Below VITALS: See Below PHYSICAL EXAMINATION: GENERAL: Awake, tired-appearing, in no distress HENT: Normocephalic, atraumatic. Oropharynx unremarkable. EYES: Normal conjunctiva. Sclera non-icteric. NECK: Inspection normal. Non-tender. Supple. No nuchal rigidity. FROM. No masses. RESPIRATORY: Clear to auscultation. No wheezes. No rales. Normal respiratory effort. CARDIAC: Normal rate. Normal rhythm. +IGLESIA. No rubs. Extremities warm and well perfused. Pulses equal. No JVD. GI: Soft, non-distended. No tenderness to palpation. No rebound or guarding. No masses. RECTAL: Deferred. MUSCULOSKELETAL: Atraumatic. Chest examination reveals no tenderness. The back is symmetrical on inspection without obvious abnormality. There is no CVA tenderness to palpation. No joint edema. LOWER EXTREMITIES: Calves are equal size bilaterally and non-tender. No edema. No discoloration. NEURO: Normal sensorium. No sensory or motor deficits noted. SKIN: No rash or jaundice noted. PROCEDURES: none CRITICAL CARE: none OBSERVATION NOTE: none Past Med/Surg History Problem List (Updated 11/10/23 @ 17:40 by Akil Fowler MD) Dizziness (Acute) Acute hypotension (Acute) Encounter for pre-operative examination Encounter for pre-operative examination Chondrosarcoma (Chronic Unknown) S/P resection Atrial fibrillation with RVR (Acute) Elevated LFTs (Acute) Ileitis (Acute) GI bleed (Acute) Atrial flutter (Chronic) Meningioma (Chronic) Diverticulitis (Chronic) Abdominal pain Crohn disease (Chronic) Elevated LFTs Encounter for pre-operative examination Stroke syndrome (Acute) Stenosis, cervical spine (Acute) Spinal stenosis of lumbar region (Acute) Memory loss (Acute) Lumbar radiculopathy (Acute) Migraine headache (Acute) Crohn's disease (Acute) Cervicalgia (Acute) Cervical radiculopathy (Acute) Carpal tunnel syndrome (Acute) Meningioma Cervicalgia Cervical spinal stenosis Cervical facet joint syndrome Cervical spondylosis Cervicogenic headache Dizziness (Acute) Acute hyponatremia (Acute) Headache (Acute) Weakness (Acute) History of meningioma (Acute) Hyponatremia History of atrial flutter Acute GI bleeding (Acute) Colitis (Acute) Right rib fracture (Acute) Lumbar transverse process fracture (Acute) Fall (Acute) Prosthetic aortic valve stenosis Rectal bleed Unexplained weight loss NSVT (nonsustained ventricular tachycardia) Ulcerative colitis (Chronic) S/P colon resection (Chronic) Hypothyroidism (Chronic) COPD (chronic obstructive pulmonary disease) (Chronic) HAS O2 BUT NOT USING CURRENLTY History of thyroidectomy (Chronic Unknown) History of total hysterectomy (Chronic Unknown) "2001 " Intracranial meningioma (Chronic Unknown) PT STATES NO SURGERY Medical History Acute on chronic diastolic heart failure due to valvular disease Cardiac murmur FOLLOWS WITH [employer] CARDS Carotid artery occlusion NO SURGERY ON CAROTID COPD (chronic obstructive pulmonary disease) HAS O2 BUT NOT USING CURRENLTY Crohns disease Former smoker GERD (gastroesophageal reflux disease) History of thyroidectomy (Unknown) History of total hysterectomy (Unknown) "2001 " Hx of sarcoma of bone SURGERY ONLY Hyperlipidemia Hypothyroidism Intracranial meningioma (Unknown) PT STATES NO SURGERY Osteoarthritis Poor historian Spinal stenosis Ulcerative colitis Surgical History H/O knee surgery LEFT History of appendectomy History of colonoscopy History of thoracic surgery SARCOMA REMOVED History of tonsillectomy X 2 History of tooth extraction S/P aortic valve replacement 12+ YEARS AGO *[facility] "NEEDS REPAIRED" S/P colon resection Family History Mother Coronary heart disease Father Coronary heart disease Other No family history of adverse response to anesthesia Social History Smoking Status: Unknown if ever smoked Second Hand Exposure: Yes (IN THE PAST); Do You Dip or Chew Tobacco: No; Hx Alcohol Use: Yes Alcohol type: beer Alcohol type Comment: 2 reagan lights a day Hx Substance Use: No Preferred Language: Mohawk Communication Ability: Effective Physician General Internal Medicine Required: No Beliefs That Will Affect Care: None Current Living Situation: Alone Current Living Situation Comment: Independent, still drives Feels Safe at Home: Yes Assistive Devices: Oxygen - at Night Allergies Allergies Allergy/AdvReac Type Severity Reaction Status Date / Time pantoprazole Allergy Intermediate ITCHY RASH Verified 11/10/23 17:33 Penicillins Allergy Intermediate HIVES Verified 11/10/23 17:33 Home Meds Home Medications Medication Instructions Recorded Confirmed acetaminophen 650 mg 2 tab PO BID PRN Pain 04/12/18 11/10/23 tablet,extended release (Tylenol Arthritis Pain) levothyroxine 112 mcg capsule 112 mcg PO QAM 04/12/18 11/10/23 albuterol sulfate 90 mcg/actuation 2 puff inhalation Q4H PRN 09/23/18 11/10/23 aerosol inhaler shortness of breath metoprolol succinate 25 mg 25 mg PO QAM 11/12/21 11/10/23 tablet,extended release 24 hr Oxygen Home 12/04/21 12/23/21 mesalamine 1.2 gram tablet,delayed 2.4 g PO QAM 02/19/22 11/10/23 release aspirin 81 mg tablet,delayed 81 mg PO DAILY 11/10/23 11/10/23 release cyanocobalamin (vitamin B-12) 1,000 mcg IM Q4WK 11/10/23 11/10/23 1,000 mcg/mL injection solution gabapentin 100 mg capsule 100 mg PO DAILY 11/10/23 11/10/23 sacubitril 24 mg-valsartan 26 mg 1 tab PO BID 11/10/23 11/10/23 tablet (Entresto) Previous Rx's Medication Instructions Recorded furosemide 20 mg tablet 20 mg PO QAM #30 tabs 12/06/21 Results & Data (ED) Vital Signs Vital Signs - 24 hr 11/10/23 17:07 11/10/23 17:23 11/10/23 17:23 Temperature 36.3 C L Temperature Source Oral Pulse Rate - Lying Pulse Rate - Sitting Pulse Rate - Standing Pulse Rate 55 L 50 L Pulse Rate [Apical] 50 L Respiratory Rate 19 14 17 Respiratory Effort / Characteristics Non-Labored Spontaneous Non-Labored Spontaneous Respiratory Depth Normal Normal Respiratory Pattern Regular Blood Pressure - Lying Blood Pressure - Sitting Blood Pressure- Standing Blood Pressure 96/59 L Blood Pressure [Left Arm] 110/67 Blood Pressure Mean 71 Blood Pressure Mean [Left Arm] 81 Pulse Oximetry 97 97 97 Oxygen Delivery Method Room Air Room Air Room Air Sepsis Recent Fever Within 48 Hours No Sepsis New/Unexplained Change in Mental Status N/A Sepsis Action Taken by Nursing No Action Required 11/10/23 17:29 11/10/23 17:29 11/10/23 19:55 Temperature Temperature Source Pulse Rate - Lying 50 L Pulse Rate - Sitting 50 L Pulse Rate - Standing 51 L Pulse Rate 49 L Pulse Rate [Apical] 55 L Respiratory Rate 19 Respiratory Effort / Characteristics Non-Labored Spontaneous Respiratory Depth Normal Respiratory Pattern Regular Blood Pressure - Lying 96/54 L Blood Pressure - Sitting 125/69 Blood Pressure- Standing 110/68 Blood Pressure Blood Pressure [Left Arm] 107/66 Blood Pressure Mean Blood Pressure Mean [Left Arm] 79 Pulse Oximetry 97 Oxygen Delivery Method Room Air Sepsis Recent Fever Within 48 Hours Sepsis New/Unexplained Change in Mental Status Sepsis Action Taken by Nursing Laboratory Data 11/10/23 17:25 11/10/23 17:25 Lab Results 11/10/23 11/10/23 11/10/23 Range/Units 17:25 18:30 19:25 WBC 4.16 L (4.8-10.8) K/ul RBC 4.82 (4.20-5.40) M/uL Hgb 14.1 (12.0-16.0) g/dl Hct 43.6 (37.0-47.0) % MCV 90.5 (80.0-100.0) fL MCH 29.3 (25.0-34.0) pg MCHC 32.3 (32.0-36.0) g/dL RDW Std Deviation 59.5 H (36.4-46.3) fL RDW Coeff of Brendon 17.9 H (11.5-14.5) % Plt Count 110 L (130-400) K/uL MPV 10.2 (9.4-12.4) fL Immature Gran % (Auto) 0.5 % Neut % (Auto) 48.7 % Lymph % (Auto) 34.9 % [place] % (Auto) 13.5 % Eos % (Auto) 1.7 % Baso % (Auto) 0.7 % Neut # (Auto) 2.03 (1.40-6.50) K/uL Lymph # (Auto) 1.45 (1.20-3.40) K/uL [place] # (Auto) 0.56 (0.11-0.59) K/uL Eos # (Auto) 0.07 (0.00-0.50) K/uL Baso # (Auto) 0.03 (0.00-0.20) K/uL Immature Gran # (Auto) 0.02 (0.01-0.20) K/uL Ovalocytes 1+ Acanthocytes (Spur) 1+ ESR 13 (0-30) mm/hr Sodium 134 L (136-145) mmol/L Potassium 4.9 (3.5-5.1) mmol/L Chloride 101 (98-107) mmol/L Carbon Dioxide 26 (21-32) mmol/L Anion Gap 7 (3-11) BUN 43 H (6-23) mg/dl Creatinine 1.27 H (0.6-1.2) mg/dl Est Cr Clr Drug Dosing 29.6 ml/min Est GFR ( Amer) 44.9 ml/min Est GFR (Non-Af Amer) 38.7 ml/min BUN/Creatinine Ratio 33.9 H (10-20) Glucose 84 (70-99(Fasting)) mg/dl Calcium 10.2 (8.6-10.3) mg/dl Magnesium 2.3 (1.7-2.4) mg/dl Total Bilirubin 2.0 H (0.2-1.0) mg/dl AST 42 H (13-39) U/L ALT 18 (7-52) U/L Alkaline Phosphatase 103 (34-104) U/L Ammonia 25.0 (18-72) umol/L Total Protein 8.2 (6.0-8.3) gm/dl Albumin 4.6 (3.4-5.0) gm/dl Globulin 3.6 (2.5-4.0) gm/dl Albumin/Globulin Ratio 1.3 (0.9-2) Procalcitonin 0.04 (0-0.5) ng/ml TSH 0.055 L (0.300-4.500) uIu/ml Free T4 1.74 H (0.61-1.60) ng/dl Digoxin 1.6 (0.8-2.0) ng/ml Anaplasma Smear See Comment Babesia Smear See Comment Lyme Disease Screen Negative (Negative) 11/10/23 Range/Units 19:25 WBC (4.8-10.8) K/ul RBC (4.20-5.40) M/uL Hgb (12.0-16.0) g/dl Hct (37.0-47.0) % MCV (80.0-100.0) fL MCH (25.0-34.0) pg MCHC (32.0-36.0) g/dL RDW Std Deviation (36.4-46.3) fL RDW Coeff of Brendon (11.5-14.5) % Plt Count (130-400) K/uL MPV (9.4-12.4) fL Immature Gran % (Auto) % Neut % (Auto) % Lymph % (Auto) % [place] % (Auto) % Eos % (Auto) % Baso % (Auto) % Neut # (Auto) (1.40-6.50) K/uL Lymph # (Auto) (1.20-3.40) K/uL [place] # (Auto) (0.11-0.59) K/uL Eos # (Auto) (0.00-0.50) K/uL Baso # (Auto) (0.00-0.20) K/uL Immature Gran # (Auto) (0.01-0.20) K/uL Ovalocytes Acanthocytes (Spur) ESR (0-30) mm/hr Sodium (136-145) mmol/L Potassium (3.5-5.1) mmol/L Chloride (98-107) mmol/L Carbon Dioxide (21-32) mmol/L Anion Gap (3-11) BUN (6-23) mg/dl Creatinine (0.6-1.2) mg/dl Est Cr Clr Drug Dosing ml/min Est GFR ( Amer) ml/min Est GFR (Non-Af Amer) ml/min BUN/Creatinine Ratio (10-20) Glucose (70-99(Fasting)) mg/dl Calcium (8.6-10.3) mg/dl Magnesium (1.7-2.4) mg/dl Total Bilirubin (0.2-1.0) mg/dl AST (13-39) U/L ALT (7-52) U/L Alkaline Phosphatase (34-104) U/L Ammonia (18-72) umol/L Total Protein (6.0-8.3) gm/dl Albumin (3.4-5.0) gm/dl Globulin (2.5-4.0) gm/dl Albumin/Globulin Ratio (0.9-2) Procalcitonin (0-0.5) ng/ml TSH (0.300-4.500) uIu/ml Free T4 (0.61-1.60) ng/dl Digoxin (0.8-2.0) ng/ml Anaplasma Smear Babesia Smear Lyme Disease Screen Cancelled (Negative) Administered Medications Sodium Chloride (Nss) 1,000 mls @ 500 mls/hr IV .Q2H ONE Stop: 11/11/23 00:33 Last Admin: 11/10/23 22:50 Dose: 500 mls/hr Documented By: SHERIE Discontinued Medications Sodium Chloride (Nss) 1,000 mls @ 125 mls/hr IV .Q8H SALLY Stop: 11/11/23 01:29 Last Admin: 11/10/23 17:47 Dose: 125 mls/hr Documented By: SHERIE Sodium Chloride (Nss) 250 mls @ 999 mls/hr IV .Q16M ONE Stop: 11/10/23 17:58 Last Infusion: 11/10/23 22:03 Dose: Infused Documented By: Admin: 11/10/23 17:47 Dose: 999 mls/hr Documented By: SHERIE Ioversol (Optiray 320 125ml) 120 ml IV ONCE ONE Stop: 11/10/23 22:19 Last Admin: 11/10/23 22:18 Dose: 120 ml Documented By: KOMAL Imaging Data Radiologist's Impression: Chest X-Ray 11/10/23 17:20 XR chest 1V portable CLINICAL HISTORY: weakness, hypotension TECHNIQUE: Single frontal radiograph of the chest was obtained. Comparison: Comparison is made to chest radiograph 12/22/2021 FINDINGS: Median sternotomy wires are unchanged. Cardiomegaly is noted. The aortic arch is calcified. Valvular prosthesis is unchanged. The lungs are clear. No evidence of pleural effusion or pneumothorax. IMPRESSION: No acute chest disease. Cardiomegaly is noted. ACT 112: Negative or not required by law. Electronically signed by: Robb Burgos M.D. 11/10/2023 6:[address] 11/10/23 17:42 CT head/brain wo con CLINICAL HISTORY: dizziness, hypotension Technique: Contiguous axial CT images of the head were acquired from the base of the skull to the vertex without intravenous contrast administration. Images were viewed in brain, subdural and bone windows. Automated dose lowering techniques and/or adjustment according to patient size were utilized for this exam. Comparison: Comparison is made to CT head 10/23/2021 Findings: The ventricles, basal cisterns, and cerebral sulci are normal. There is no acute intracranial hemorrhage or evidence of acute territorial infarction. Neither mass effect, shift of the midline structures, nor abnormal extra-axial fluid collections are shown. Imaged portions of the paranasal sinuses and mastoid air cells are clear. The orbits appear normal. There are no acute fractures of the calvaria or scalp swelling. Impression: No acute intracranial hemorrhage, no evidence of acute territorial infarction or other acute intracranial disease process. ACT 112: Negative or not required by law. Electronically signed by: Robb Burgos M.D. 11/10/2023 7:23 PM Discharge Plan Visit Data Chief Complaint: Referred by Doctor Stated Complaint: HYPOTENSION ED Provider: Akil Fowler Discharge Problem: Acute hypotension, Dizziness Patient Disposition: Admitted As Inpatient Discharge Instructions Interventions: ED Discharge Assessment Last Done: 11/10/23 22:56
[2023-11-10] MEDS: SODIUM CHLORIDE 0.9% 1,000 ML IV SCH (17:47)
[2023-11-10] MEDS: SODIUM CHLORIDE 0.9% 250 ML IV ONE (17:47)
[2023-11-10 17:54] LABS: Basophils # (auto) 0.03 K/uL (0.00-0.20); Basophils % (auto) 0.7 %; Eosinophils # (auto) 0.07 K/uL (0.00-0.50); Eosinophils % (auto) 1.7 %; Hematocrit (blood only) 43.6 % (37.0-47.0); Hemoglobin 14.1 g/dl (12.0-16.0); Immature Granulocytes # (auto) 0.02 K/uL (0.01-0.20); Immature Granulocytes % (auto) 0.5 %; Lymphocytes # (auto) 1.45 K/uL (1.20-3.40); Lymphocytes % (auto) 34.9 %; Mean Corpuscular Hemoglobin 29.3 pg (25.0-34.0); Mean Corpuscular Hgb Conc 32.3 g/dL (32.0-36.0); Mean Corpuscular Volume 90.5 fL (80.0-100.0); Mean Platelet Volume 10.2 fL (9.4-12.4); Monocytes # (auto) 0.56 K/uL (0.11-0.59); Monocytes % (auto) 13.5 %; Neutrophils # (auto) 2.03 K/uL (1.40-6.50); Neutrophils % (auto) 48.7 %; Platelet Count 110 K/uL (130-400); RDW Coefficient of Variation 17.9 % (11.5-14.5); RDW Standard Deviation 59.5 fL (36.4-46.3); Red Blood Count 4.82 M/uL (4.20-5.40); White Blood Count 4.16 K/ul (4.8-10.8)
[2023-11-10 18:17] LABS: Albumin Globulin Ratio 1.3 (0.9-2); Albumin Level 4.6 gm/dl (3.4-5.0); BUN Creatinine Ratio 33.9 (10-20); Calcium 10.2 mg/dl (8.6-10.3); Creatinine Clr Calc Pharmacy 29.6 ml/min; Est GFR (African American) 44.9 ml/min; Est GFR (Non-African American) 38.7 ml/min; Globulin 3.6 gm/dl (2.5-4.0); Magnesium 2.3 mg/dl (1.7-2.4); Potassium 4.9 mmol/L (3.5-5.1); Total Protein 8.2 gm/dl (6.0-8.3)
--- NOTE | 2023-11-10 18:20 | XRay Report ---
XR chest 1V portable CLINICAL HISTORY: weakness, hypotension TECHNIQUE: Single frontal radiograph of the chest was obtained. Comparison: Comparison is made to chest radiograph 12/22/2021 FINDINGS: Median sternotomy wires are unchanged. Cardiomegaly is noted. The aortic arch is calcified. Valvular prosthesis is unchanged. The lungs are clear. No evidence of pleural effusion or pneumothorax. IMPRESSION: No acute chest disease. Cardiomegaly is noted. ACT 112: Negative or not required by law. Electronically signed by: Robb Burgos M.D. 11/10/2023 6:18 PM
[2023-11-10 18:32] LABS: Thyroid Stimulating Hormone 0.055 uIu/ml (0.300-4.500)
[2023-11-10 19:03] LABS: T4 Free Thyroxine 1.74 ng/dl (0.61-1.60)
--- NOTE | 2023-11-10 19:24 | CT Scan Report ---
CT head/brain wo con CLINICAL HISTORY: dizziness, hypotension Technique: Contiguous axial CT images of the head were acquired from the base of the skull to the chauncey claudia without intravenous contrast administration. Images were viewed in brain, subdural and bone [facility]. Automated dose lowering techniques and/or adjustment according to patient size were utilized for this exam. Comparison: Comparison is made to CT head 10/23/2021 Findings: The ventricles, basal cisterns, and cerebral sulci are normal. There is no acute intracranial hemorrh age or evidence of acute territorial infarction. Neither mass effect, shift of the midline structures , nor abnormal extra-axial fluid collections are shown. Imaged portions of the paranasal sinuses and mastoid air cells are clear. The orbits appear normal. There are no acute fractures of the calvaria or scalp swelling. Impression: No acute intracranial hemorrhage, no evidence of acute territorial infarction or other acute intracra nial disease process. ACT 112: Negative or not required by law. Electronically signed by: Robb Burgos M.D. 11/10/2023 7:23 PM
[2023-11-10 20:00] LABS: Acanthocytes 1+; Ovalocytes 1+
[2023-11-10 20:21] LABS: Procalcitonin 0.04 ng/ml (0-0.5)
--- NOTE | 2023-11-10 20:41 | History & Physical Report ---
Date of Service November 10, 2023 Assessment & Plan (1) Acute hypotension: Plan: Secondary to hypovolemia Decreased p.o. 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 DVT prophylaxis. Heparin subcu Full code Patient daughter requesting updates providers. Yola Campbell, contact #[phone] Text document was generated using [employer] voice recognition software. It may contain grammatical or spelling errors. Kindly contact undersigned for clarification of any documentation item in question. History of Present Illness Chief Complaint: Dizziness, hypertension Primary Care Provider: Leyda Ahn MD History obtained from patient and records. Medical history significant for chronic diastolic heart failure (EF 55 to 59%, TTE 2022), valvular heart disease (mild to moderate MR, severe TR), pulmonary hypertension, PAF, bioprosthetic AVR stenosis status post surgery, PVD, COPD, RLS, Crohn's disease, meningioma status post gamma knife surgery, sternal chondrosarcoma status post surgery, chronic hyponatremia, hypothyroidism, daily alcohol intake, past tobacco abuse. Last confinement [facility] for elective TAVR valve repair. LV thrombus noted during admission. IV heparin started but stopped due to retroperitoneal bleed. Patient has not been acting well the last few days. Dizziness described as lightheadedness. Losing weight. Patient denies depression. Transient chest tightness the last few days. Denies unusual shortness of breath. Not sure about tick bites. Patient brought to PCPs office today on evaluation. Blood pressure and heart rate noted to be low. Lowest SBP of 50s documented at the office. Patient brought to the ER for evaluation by daughter. Lowest SBP of 60s documented at the ER. Medical History as above Surgical History : Gamma knife surgery for meningioma, chest chondrosarcoma surgery, thyroidectomy, partial colectomy, RUTH/BSO, appendectomy, hernia repair, bioprosthetic AVR, TAVR repair Family History : Heart disease, lung cancer, breast cancer, stomach cancer Personal/Social history : Past tobacco abuse, daily EtOH intake denies abuse, [employer] m[employer] Allergies Allergy/AdvReac Type Severity Reaction Status Date / Time pantoprazole Allergy Intermediate ITCHY RASH Verified 11/10/23 17:33 Penicillins Allergy Intermediate HIVES Verified 11/10/23 17:33 Home Medications Medication Instructions Recorded Confirmed Type acetaminophen 650 mg 2 tab PO BID PRN Pain 04/12/18 11/10/23 History tablet,extended release (Tylenol Arthritis Pain) levothyroxine 112 mcg capsule 112 mcg PO QAM 04/12/18 11/10/23 History albuterol sulfate 90 mcg/actuation 2 puff inhalation Q4H PRN 09/23/18 11/10/23 History aerosol inhaler shortness of breath metoprolol succinate 25 mg 25 mg PO QAM 11/12/21 11/10/23 History tablet,extended release 24 hr Oxygen Home 12/04/21 12/23/21 History furosemide 20 mg tablet 20 mg PO QAM #30 tabs 12/06/21 11/10/23 Rx mesalamine 1.2 gram tablet,delayed 2.4 g PO QAM 02/19/22 11/10/23 History release aspirin 81 mg tablet,delayed 81 mg PO DAILY 11/10/23 11/10/23 History release cyanocobalamin (vitamin B-12) 1,000 mcg IM Q4WK 11/10/23 11/10/23 History 1,000 mcg/mL injection solution gabapentin 100 mg capsule 100 mg PO DAILY 11/10/23 11/10/23 History sacubitril 24 mg-valsartan 26 mg 1 tab PO BID 11/10/23 11/10/23 History tablet (Entresto) Past Med/Surg History Problem List (Updated 11/11/23 @ 11:04 by Judd Fontenot DO) Severe tricuspid regurgitation S/P TAVR (transcatheter aortic valve replacement) Atrial flutter with controlled response Dizziness (Acute) Acute hypotension (Acute) Encounter for pre-operative examination Encounter for pre-operative examination Chondrosarcoma (Chronic Unknown) S/P resection Atrial fibrillation with RVR (Acute) Elevated LFTs (Acute) Ileitis (Acute) GI bleed (Acute) Atrial flutter (Chronic) Meningioma (Chronic) Diverticulitis (Chronic) Abdominal pain Crohn disease (Chronic) Elevated LFTs Encounter for pre-operative examination Stroke syndrome (Acute) Stenosis, cervical spine (Acute) Spinal stenosis of lumbar region (Acute) Memory loss (Acute) Lumbar radiculopathy (Acute) Migraine headache (Acute) Crohn's disease (Acute) Cervicalgia (Acute) Cervical radiculopathy (Acute) Carpal tunnel syndrome (Acute) Meningioma Cervicalgia Cervical spinal stenosis Cervical facet joint syndrome Cervical spondylosis Cervicogenic headache Dizziness (Acute) Acute hyponatremia (Acute) Headache (Acute) Weakness (Acute) History of meningioma (Acute) Hyponatremia History of atrial flutter Acute GI bleeding (Acute) Colitis (Acute) Right rib fracture (Acute) Lumbar transverse process fracture (Acute) Fall (Acute) Prosthetic aortic valve stenosis Rectal bleed Unexplained weight loss NSVT (nonsustained ventricular tachycardia) Ulcerative colitis (Chronic) S/P colon resection (Chronic) Hypothyroidism (Chronic) COPD (chronic obstructive pulmonary disease) (Chronic) HAS O2 BUT NOT USING CURRENLTY History of thyroidectomy (Chronic Unknown) History of total hysterectomy (Chronic Unknown) "2001 " Intracranial meningioma (Chronic Unknown) PT STATES NO SURGERY Medical History GERD (gastroesophageal reflux disease) Hx of sarcoma of bone SURGERY ONLY Poor historian Acute on chronic diastolic heart failure due to valvular disease Carotid artery occlusion NO SURGERY ON CAROTID Crohns disease Spinal stenosis Osteoarthritis Cardiac murmur FOLLOWS WITH [facility] CARDS Hyperlipidemia Former smoker Surgical History H/O knee surgery LEFT History of colonoscopy History of tooth extraction History of tonsillectomy X 2 S/P aortic valve replacement 12+ YEARS AGO *[facility] "NEEDS REPAIRED" History of thoracic surgery SARCOMA REMOVED History of appendectomy Family History Mother Coronary heart disease Father Coronary heart disease Other No family history of adverse response to anesthesia Social History (Reviewed 11/11/23 @ 10:59 by SHANE Doe Smoking Status: Former smoker Second Hand Exposure: No; Do You Dip or Chew Tobacco: No; Tobacco Cessation Education Requested by Patient: No Hx Alcohol Use: Yes Alcohol type: beer Alcohol type Comment: 2 reagan lights a day Hx Substance Use: No Preferred Language: German Communication Ability: Effective Marketing Assistant [employer] Required: No Beliefs That Will Affect Care: None Current Living Situation: Alone Current Living Situation Comment: Independent, still drives Other Information That Helps Us Care for You: No Feels Safe at Home: Yes Safety Concerns: Feels Safe At This Time Assistive Devices: Oxygen - at Night Review of Systems Review of Systems: As per HPI, all other systems reviewed and negative Physical Exam Physical Exam: GENERAL: comfortable, underweight, no respiratory distress SKIN: Normal color, cool HEENT: [place] palpebral conjunctivae, no ptosis, dry buccal mucosa NECK : Supple, no tenderness CHEST : Decreased breath sounds, no chest wall tenderness bradycardic HEART : Bradycardic, systolic murmur ABDOMEN: no distention, no tenderness EXTREMITIES : No LE swelling/tenderness, no other conspicuous deformities noted NEUROLOGIC : Coherent, no facial asymmetry, no other gross focality Results & Data Results & Data Vital Signs (Past 12 Hours) Vital Signs Temp Pulse Pulse Resp BP BP Pulse Ox 11/10/23 19:55 55 L 19 107/66 97 11/10/23 17:29 49 L 11/10/23 17:23 50 L 17 97 11/10/23 17:23 36.3 C L 50 L 14 110/67 97 11/10/23 17:07 55 L 19 96/59 L 97 O2 Del Method 11/10/23 19:55 Room Air 11/10/23 17:29 11/10/23 17:23 Room Air 11/10/23 17:23 Room Air 11/10/23 17:07 Room Air Laboratory Results Laboratory Results WBC 4.16 K/ul (4.8-10.8) L 11/10/23 17:25 RBC 4.82 M/uL (4.20-5.40) 11/10/23 17:25 Hgb 14.1 g/dl (12.0-16.0) 11/10/23 17:25 Hct 43.6 % (37.0-47.0) 11/10/23 17:25 MCV 90.5 fL (80.0-100.0) 11/10/23 17:25 MCH 29.3 pg (25.0-34.0) 11/10/23 17: MCHC 32.3 g/dL (32.0-36.0) 11/10/23 17:25 RDW Std Deviation 59.5 fL (36.4-46.3) H 11/10/23 17:25 RDW Coeff of Brendon 17.9 % (11.5-14.5) H 11/10/23 17:25 Plt Count 110 K/uL (130-400) L 11/10/23 17:25 MPV 10.2 fL (9.4-12.4) 11/10/23 17:25 Immature Gran % (Auto) 0.5 % 11/10/23 17:25 Neut % (Auto) 48.7 % 11/10/23 17:25 Lymph % (Auto) 34.9 % 11/10/23 17:25 [place] % (Auto) 13.5 % 11/10/23 17:25 Eos % (Auto) 1.7 % 11/10/23 17:25 Baso % (Auto) 0.7 % 11/10/23 17:25 Neut # (Auto) 2.03 K/uL (1.40-6.50) 11/10/23 17:25 Lymph # (Auto) 1.45 K/uL (1.20-3.40) 11/10/23 17:25 [place] # (Auto) 0.56 K/uL (0.11-0.59) 11/10/23 17:25 Eos # (Auto) 0.07 K/uL (0.00-0.50) 11/10/23 17:25 Baso # (Auto) 0.03 K/uL (0.00-0.20) 11/10/23 17:25 Immature Gran # (Auto) 0.02 K/uL (0.01-0.20) 11/10/23 17:25 Ovalocytes 1+ 11/10/23 17:25 Acanthocytes (Spur) 1+ 11/10/23 17:25 Sodium 134 mmol/L (136-145) L 11/10/23 17:25 Potassium 4.9 mmol/L (3.5-5.1) 11/10/23 17:25 Chloride 101 mmol/L (98-107) 11/10/23 17:25 Carbon Dioxide 26 mmol/L (21-32) 11/10/23 17:25 Anion Gap 7 (3-11) 11/10/23 17:25 BUN 43 mg/dl (6-23) H 11/10/23 17:25 Creatinine 1.27 mg/dl (0.6-1.2) H 11/10/23 17:25 Est Cr Clr Drug Dosing 29.6 ml/min 11/10/23 17:25 Est GFR ( Amer) 44.9 ml/min 11/10/23 17:25 Est GFR (Non-Af Amer) 38.7 ml/min 11/10/23 17:25 BUN/Creatinine Ratio 33.9 (10-20) H 11/10/23 17:25 Glucose 84 mg/dl (70-99(Fasting)) 11/10/23 17:25 Calcium 10.2 mg/dl (8.6-10.3) 11/10/23 17:25 Magnesium 2.3 mg/dl (1.7-2.4) 11/10/23 17:25 Total Bilirubin 2.0 mg/dl (0.2-1.0) H 11/10/23 17:25 AST 42 U/L (13-39) H 11/10/23 17:25 ALT 18 U/L (7-52) 11/10/23 17:25 Alkaline Phosphatase 103 U/L (34-104) 11/10/23 17:25 Ammonia 25.0 umol/L (18-72) 11/10/23 18:30 Total Protein 8.2 gm/dl (6.0-8.3) 11/10/23 17:25 Albumin 4.6 gm/dl (3.4-5.0) 11/10/23 17:25 Globulin 3.6 gm/dl (2.5-4.0) 11/10/23 17:25 Albumin/Globulin Ratio 1.3 (0.9-2) 11/10/23 17:25 Procalcitonin 0.04 ng/ml (0-0.5) 11/10/23 19:25 TSH 0.055 uIu/ml (0.300-4.500) L 11/10/23 17:25 Free T4 1.74 ng/dl (0.61-1.60) H 11/10/23 17:25 Digoxin 1.6 ng/ml (0.8-2.0) 11/10/23 18:30 Anaplasma Smear See Comment 11/10/23 17:25 Babesia Smear See Comment 11/10/23 17:25 Lyme Disease Screen Cancelled 11/10/23 19:25 Impressions Chest X-Ray 11/10/23 17:20 XR chest 1V portable CLINICAL HISTORY: weakness, hypotension TECHNIQUE: Single frontal radiograph of the chest was obtained. Comparison: Comparison is made to chest radiograph 12/22/2021 FINDINGS: Median sternotomy wires are unchanged. Cardiomegaly is noted. The aortic arch is calcified. Valvular prosthesis is unchanged. The lungs are clear. No evidence of pleural effusion or pneumothorax. IMPRESSION: No acute chest disease. Cardiomegaly is noted. ACT 112: Negative or not required by law. Electronically signed by: Robb Burgos M.D. 11/10/2023 6:[address] 11/10/23 17:42 CT head/brain wo con CLINICAL HISTORY: dizziness, hypotension Technique: Contiguous axial CT images of the head were acquired from the base of the skull to the vertex without intravenous contrast administration. Images were viewed in brain, subdural and bone windows. Automated dose lowering techniques and/or adjustment according to patient size were utilized for this exam. Comparison: Comparison is made to CT head 10/23/2021 Findings: The ventricles, basal cisterns, and cerebral sulci are normal. There is no acute intracranial hemorrhage or evidence of acute territorial infarction. Neither mass effect, shift of the midline structures, nor abnormal extra-axial fluid collections are shown. Imaged portions of the paranasal sinuses and mastoid air cells are clear. The orbits appear normal. There are no acute fractures of the calvaria or scalp swelling. Impression: No acute intracranial hemorrhage, no evidence of acute territorial infarction or other acute intracranial disease process. ACT 112: Negative or not required by law. Electronically signed by: Robb Burgos M.D. 11/10/2023 7:[address] angio chest: No PE 1. Cardiomegaly, with severe dilation of the right atrium. 2. Reflux of contrast in the IVC, correlate for right heart failure. Diagnostic Findings EKG as per my interpretation : Rate 50, atrial flutter, LAD, LAFB, T wave inversion anterolateral leads
[2023-11-10 20:46] LABS: Lyme Screen Rflx Confirmation Negative (Negative)
[2023-11-10] MEDS ORDERED: oxyCODONE HCL IR 5 MG TAB (IMMEDIATE RELEASE) PO PRN (20:51)
[2023-11-10] MEDS ORDERED: PROMETHAZINE HCL 6.25 MG in SODIUM CHLORIDE 0.9% 50 ML IV PRN (20:51)
[2023-11-10 21:44] LABS: Troponin I High Sensitivity 14.4 pg/ml (0-14)
[2023-11-10 21:50] LABS: Partial Thromboplastin Time 27 Seconds (21-31)
[2023-11-10 21:53] LABS: D Dimer 1320 ug/L FEU (0-500)
[2023-11-10] MEDS: OPTIRAY 320 125ml IV ONE (22:18)
[2023-11-10] MEDS: SODIUM CHLORIDE 0.9% 1,000 ML IV ONE (22:50)
[2023-11-10] MEDS ORDERED: NITROGLYCERIN SL 0.4 MG/TAB TAB SL PRN (22:56)
[2023-11-10 23:05] LABS: C Reactive Protein < 0.50 mg/dl (0-0.5)
--- NOTE | 2023-11-11 00:09 | CT Scan Report ---
Exam(s): CTA CHEST IV Amt: 120 ml optiray 320 EXAM: CT Angiography Chest With Intravenous Contrast CLINICAL HISTORY: Reason for exam: cp. TECHNIQUE: Axial computed tomographic angiography images of the chest with intravenous contrast. Automated exposure control was utilized for the study. A dose lowering technique was utilized adhering to the principles of ALARA. MIP reconstructed images were created and reviewed. COMPARISON: No relevant prior studies available. FINDINGS: Pulmonary arteries: Unremarkable. No pulmonary embolism. Aorta: No acute findings. No thoracic aortic aneurysm. Inferior vena cava: Reflux of contrast in the IVC, correlate for right heart failure. Lungs: Atelectasis at the lung bases. No mass. Pleural space: Unremarkable. No significant effusion. No pneumothorax. Heart: Cardiomegaly, with severe dilation of the right atrium. Prosthetic aortic valve. Bones/joints: Sternotomy wires. No acute fracture. No dislocation. Soft tissues: Unremarkable. Lymph nodes: Unremarkable. No enlarged lymph nodes. IMPRESSION: 1. Cardiomegaly, with severe dilation of the right atrium. 2. Reflux of contrast in the IVC, correlate for right heart failure. Electronically signed by: Sreedhar Allan MD 11/11/23 00:08 AM
[2023-11-11] MEDS: SODIUM CHLORIDE 0.9% 1,000 ML IV ONE (00:26)
--- OUTSIDE RECORDS SUMMARY | 2023-11-11 05:49 | External Medical Summary | Summary of Care ---
Author Name Unknown Organization [facility] Address [address] [place] [address] Phone [phone] Care Team Providers Care Case Management Coordinator Name Role Phone Maxwell Sellers MD Primary Care Provider + Reason for Visit * Reason Onset Date Comments Advice 09/24/2023 Encounter Details Date Type Department Care Team (Late st Contact Info) Description 09/24/2023 Telephone General Internal Medicine [facility] [address] [place] [address] Maxwell Sellers MD [address] [place] [address] Advice Allergies Active Allergy Reactions Criticality Noted Date Comments Pantoprazole 01/29/2022 Itchiness, rash Penicillins Hives 01/13/2003 hives documented as of this encounter (statuses as of 10/01/2023) Medications Medication Sig Dispensed Refills Start Date End Date Status Acetaminophen ER 650 MG Oral Tablet Extended Release 2 pill daily in AM & 2 pills in afternoon if needed 0 03/20/2015 Active oxygen GASIndications:Noc turnal hypoxemia,COPD, mild (HCC) Use 2.5 L/min(Oxygen) as directed at bedtime. 1 Each 1 03/25/2019 Active Albuterol Sulfate HFA 108 (90 Base) MCG/ACT Inhalation Aerosol SolutionIndication s:COPD, mild (HCC) Inhale by mouth 2 Puffs every 4 hours as needed for Cough, Shortness of Breath or Wheezing. 20.1 g 3 11/06/2021 Active Mesalamine 1.2 GM Oral Tablet Delayed Release (Lialda) Take 2 Tablets by mouth in the morning. 180 Tablet 3 09/29/2022 Active Polyethylene Glycol 3350 17 GM/SCOOP Oral Powder Take 17 g by mouth as needed. 0 Active Aspirin 81 MG Oral Tablet Delayed Release Take 1 Tablet by mouth in the morning. 0 Active oxygen IN GAS 2L/min(Oxygen) continuous via nasal cannula. 1 Each 0 10/09/2022 Active Anoro Ellipta 62.5-25 MCG/ACT Inhalation Aerosol Powder Breath Activated (umeclidinium-luisana nterol)Indications :Pulmonary hypertension (HCC),Chondrosarco ma (HCC),COPD, severity to be determined ([facility]) Inhale 1 Puff by mouth in the morning. 180 Blister Dosing Unit 3 12/18/2022 Active Furosemide 20 MG Oral Tablet (Lasix) 1 tab by mouth 3 days/week until leg edema improves 30 Tablet 11 01/20/2023 Active Additional Information Patient taking differently: PRN, edema, 1 tab by mouth 3 days/week until leg edema improves, Reported on 05/15/2023 Metoprolol Succinate ER 25 MG Oral Tablet Extended Release 24 Hour (toPROL XL)Indications:Par oxysmal atrial fibrillation (HCC) Take 0.5 Tablets by mouth daily. 45 Tablet 3 08/12/2023 Active Gabapentin 100 MG Oral Capsule (Neurontin) Take 1 tab three times daily 270 Capsule 1 09/02/2023 Active Levothyroxine Sodium 112 MCG Oral Tablet (Levoxyl) Take 1 Tablet by mouth daily first thing in the morning. (at least 30 min prior to breakfast or other meds) 90 Tablet 2 09/02/2023 Active Entresto 24-26 MG Oral Tablet Take 1 Tablet by mouth in the morning and 1 Tablet before bedtime. 0 08/04/2023 Active Fluticasone Propionate 50 MCG/ACT Nasal Suspension (Flonase) Administer 2 Sprays into each nostril in the morning. 16 g 5 09/12/2023 Active Hospital, Clinic, or Other Facility Administered Medication Ordered Dose Route Frequency Start Date End Date Status albuterol sulfate (PROVENTIL) (2.5 MG/3ML) 0.083% inhalation solution 2.5 mgIndications:COPD, severity to be determined (HCC),Chondrosarcoma (HCC),Pulmonary hypertension (HCC) 2.5 mg NEBULIZER PRN 01/07/2019 Active vitamin b-12 (Cyanocobalamin) inj 1,000 mcgIndications:B12 deficiency 1000 mcg IM [id number] 04/19/2023 03/19/2024 Active documented as of this encounter (statuses as of 10/01/2023) Active Problems Problem Noted Date Diagnosed Date Venous insufficiency 09/12/2023 Chronic rhinitis 09/12/2023 Spinal stenosis of lumbar re gion without neurogenic claudication 03/12/2022 Stenosis of prosthetic aortic valve 01/06/2022 Pulmonary hypertension 11/06/2021 COPD, group B, by GOLD 2017 classification 01/31 Overview: Per COPD GOLD Classification Idiopathic peripheral neuropathy 11/16/2018 Crohn's disease of large intestine without compl ication 09/20/2018 Paroxysmal atrial fibrillation 09/15/2018 Right internal carotid occlusion 10/04/2017 Meningioma 12/23/2013 B12 deficiency 11/25/2011 History of transcatheter aortic valve replacemen t (TAVR) 04/29/2010 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 Hypothyroidism 05/21/2007 Cervical spondylosis 02/11/2005 documented as of this encounter (statuses as of 10/01/2023) Resolved Problems Problem Noted Date Diagnosed Date Resolved Date Permanent atrial fibrillation 03/28/2019 10/28/2021 Chronic systolic CHF (conges tive heart failure) 03/28/2019 01/03/2021 CHF with right heart failure 03/21/2019 03/12/2022 Atherosclerosis of aorta 11/16/2018 Carpal tunnel syndrome 03/28/201302/10 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 Henriquez [facility] N/S asymptomatic en plaque cavernous sinus meningioma and I would not recommend treatment for this, either. ICD-10 update of inactive term ADVANCE DIRECTIVE INFORMATION 11/11/2004 03/12/2022 Overview: No, Advance Directive brochure given to patient. MITRAL INSUF-AORT STENOS 11/09/200310/2016 Overview: NEEDS YEARLY ECHOCARDIOGRAMS Other ventral hernia without mention of obstruction or gangrene 09/14/2003 02/10/2017 Overview: 553.21 INCISIONAL HERNIA Healing well after 03/29 surgical repair LOC PRIM [id number] 05/09/2003 1010/2016 Esotropia 01/13/2003 02/10/2017 Overview: 11/24- R sixth nerve palsy- improving MRI/MRA negative Alopecia 01/13/2003 02/10/2017 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/2002 09/20/2018 Overview: not bx proven DIVERTICULOSIS OF COLON 06/16/200202/22 Menopause 06/16/2002 10/23/2021 Abnormal weight gain 06/16/2002 017 Other ulcerative colitis with rectal bleeding 03/12/2022 documented as of this encounter (statuses as of 10/01/2023) Immunizations Name Administration Dates Next Due COVID-19 mRNA, LNP-s, No Pre serve, 2-Dose Series (Moderna) 08/30/2020,07/25/2020 COVID-19, MRNA-LNP, 23-24, P F, 30 MCG/0.3 mL, 12 YRS AND ABOVE, IM (PFIZER-Comirnaty) 09/29/2023 COVID-19, mRNA, LNP-s, PF, B ooster, 100mcg/0.5mg (Moderna) 05/13/2021 Covid-19, Mrna, Lnp-s, Pf, B ivalent, 30 Mcg, IM, 12 yrs and above (Pfizer) 03/18/2022 PPD 02/14/2011 Pneumococcal Conjugate Vacc, 13 Valent (Prevnar) 11/16/2014 Pneumococcal Polysaccharide PPV23 (Pneumovax) 12/06/2021,02/22/2007,10/21/2000 Season Influenza, Quad, PF, Adjuvanted, 65+ Yrs, IM (FLUAD) 02/20/2020 Seasonal Influenza, PF, 6 M & above, IM , (FluLaval or Fluzone) 02/16/2019,02/09/2018 Seasonal Influenza, Quadriva lent Hd (Fluzone Hd) 02/16/2023,02/19/2022,02/27/2021 Seasonal Influenza, Quadriva lent, No Preserve, IM 02/10/2017,03/23/2016,03/20/2015 Seasonal Influenza, Split, I IV3, With Preserve, Inj 02/08/2013,03/15/2012,02/11/2011,04/29,04/04/2009,03/23/2008,02/25/2007 ,03/17/2006,03/19/2005 Seasonal Influenza, Trivalen t, High Dose, No Preserve, IM 01/24/2020 TD - Tetanus/Diptheria (ADULT) 10/13/2007 TDAP (age 10 and older)(Boostrix) 03/02/2019, Varicella Zoster Vaccine (Adult) 09/14/2014 Zoster Vaccine Recombinant (Shingrix) 09/29/2023 documented as of this encounter Social History Tobacco Use Types Packs/Day Years Used Date Smoking Tobacco: Former Cigarettes 3 23 0 05/25/1978 - 05/25/2001 Smokeless Tobacco: Never Alcohol Use Standard Drinks/Week Comments Yes 14 (1 standard drink = 0.6 oz pu re alcohol) PHQ-2 Answer Date Recorded PHQ Adult Total Score 0 05/15/2023 Hunger Vital Sign Answer Date Recorded Within the past 12 months, y ou worried that your food would run out before you got the money to buy more. Never true 03/25/20 22 Within the past 12 months, t he food you bought just didn't last and you didn't have money to get more. Never true 03/25/2022 Sex and Gender Information Value Date Recorded Sex Assigned at Female 05/19/2019 10:26 AM EST Gender Identity Female 05/19/2019 10:26 AM EST Sexual Orientation Straight 05/19/2019 10 :26 AM EST Job Start Date Occupation Industry Not on file Not on file Not on file documented as of this encounter Miscellaneous Notes * Telephone Encounter - Robert Herman OSA - 10/01/2023 1:54 PM EDT Patients daughter said she was going to call next week to schedule an acute visit * Telephone Encounter - Kait Turner LPN - 09/24/2023 5:13 PM EDT Patient's daughter notified of message below. She is currently in [place] and will be until Thursday. She is going to call Thursday and schedule an acute appointment for her mother. * Telephone Encounter - Maxwell Sellers MD - 09/24/2023 4:06 PM EDT Please call, I was notified by podiatry she has a potential skin wound on face. I would like to seeher for this so we can evaluate and treat it accordingly. Please schedule a visit with me or other physician/pa for evaul of this acute issue Dr. Quintin eng documented in this encounter Plan of Treatment Upcoming Encounters Date Type Department Care Team (Late st Contact Info) Description 11/09/2023 11:20 AM EDT Office Visit General Internal Medicine [facility] [address] [place] [address] Leyda Ahn MD [address] [facility] [place] [address] 05/03/2024 9:00 AM EST Office Visit Neurology [facility] [address] [facility] [place] [address] Ellen Carias PA-C [address] [place] [address] Scheduled Procedures Name Priority Associated Diagnoses Date/Ti me COLONOSCOPY FLEXIBLE PROXIMA L DIAGNOSTIC Recall IBD (inflammatory bowel disease) Health Maintenance Due Date Last Done Comments DXA Scan 08/10/2023 08/09/2020, 07/23, 11/07/2009, Additional history exists Zoster Vaccines (3 of 3) 11/24/2023 024, 09/14/2014, 09/14/2014 Colonoscopy 12/26/2023 12/25/2021, 08/0 07/2021, 09/24/2018, Additional history exists Depression Screening 05/15/2024 05/15/2023 TSH 05/15/2024 05/15/2023, 01/24, 10/02/2022, Additional history exists O2 ASSESSMENT COMPLETED IN PAST YEAR FOR COPD 09/11/2024 09/12/2023 DTaP,Tdap,and Td Vaccines (3 - Td or Tdap) 03/02/2029 03/02/2019, 09/14/2014, 10/13/2007 Alpha-1 Antitrypsin Completed 11/01/2021 Pneumococcal Vaccine: 65+ Years Completed 12/06/2021, 11/16/2014, 02/22/2007, Additional history exists RETIRED - COLONOSCOPY-EVERY 2 YRS AGES 18-100 Discontinued 12/25/2021, 12/25/2021, 09/24/2018, Additional history exists Influenza Vaccine (FLU shot) Completed 02/16/2023, 02/19/2022, 02/27/2021, Additional history exists COVID-19 Vaccine Completed 09/29/2023, , 05/13/2021, Additional history exists GARDASIL-HPV IMMUNIZATION SERIES Aged Out No longer eligible based on patient's age to complete this topic Hepatitis B Aged Out No longer eligi ble based on patient's age to complete this topic MENINGOCOCCAL (MENACTRA/MENVEO) Aged Out No longer eligible based on patient's age to complete this topic documented as of this encounter Medical Devices Implanted Type Area Manager International Device Identifier Shelf Expiration Date Model / Serial / Lot Valve Ce Aortic 21mm 3000tfx - [id number] Implanted:Qty : 1 on 04/17/2010 at [place] [facility] Tissue - Non Human N/A: Chest [employer] ELISABETH 04/17/2010 3000TFX-2 / [id number] / Patch Pericard 8x14cm [id number] - [id number] Implanted:Qty : 1 on 04/17/2010 at [place] [facility] Tissue - Non Human N/A: Chest [employer] 12/05/2014 -[id number] / / [id number] Sut Steel 6 M654g - [id number] Implanted:Qty : 4 on 04/17/2010 at [place] [facility] N/A: Chest DO NOT USE 06/17/2014 [id number] / / [id number] documented as of this encounter Advance Directives Documents on File Type Date Recorded Patient Litigation Services Manager Expl anation Advance Directives and Living Will 11/01/2008 LIVING WILL Latest Code Status on File Code Status Date Activated Date Inactivated Comments Full Code 04/17/2010 12:37 PM 04/22/2010 9:47 PM Th is order reflects the patients wishes and were consensually agreed upon. Care Teams Case Management Coordinator Relationship Specialty Start Date End Date Maxwell Sellers MD [address] [place] [id number] PCP - General Internal Medicine 01/03/21 documented as of this encounter
--- OUTSIDE RECORDS SUMMARY | 2023-11-11 05:49 | External Medical Summary | Summary of Care ---
Author Name Unknown Organization [facility] Address [address] [facility] [place] [address] Phone [phone] Care Team Providers Care Air Crew Member Name Role Phone Maxwell Sellers MD Primary Care Provider + Encounter Details Date Type Department Care Team (Late st Contact Info) Description 09/29/2023 1:00 PM EDT Immunization Pharmacy, [facility] [address] [place] [address] [place] [address] Vaccine Pharmacy [facility] [address] [place] [address] Arrived Allergies Active Allergy Reactions Criticality Noted Date Comments Pantoprazole 01/29/2022 Itchiness, rash Penicillins Hives 01/13/2003 hives documented as of this encounter (statuses as of 09/29/2023) Medications Medication Sig Dispensed Refills Start Date End Date Status Acetaminophen ER 650 MG Oral Tablet Extended Release 2 pill daily in AM & 2 pills in afternoon if needed 0 03/20/2015 Active oxygen GASIndications:Noct urnal hypoxemia,COPD, mild (HCC) Use 2.5 L/min(Oxygen) as directed at bedtime. 1 Each 1 03/25/2019 Active Albuterol Sulfate HFA 108 (90 Base) MCG/ACT Inhalation Aerosol SolutionIndications :COPD, mild (HCC) Inhale by mouth 2 Puffs [...] 62.5-25 MCG/ACT Inhalation Aerosol Powder Breath Activated (umeclidinium-vilan terol)Indications:P ulmonary hypertension ([facility]),Chondrosarcom a ([facility]),COPD, severity to be determined ([facility]) Inhale 1 Puff by mouth in the [...] Oral Tablet Extended Release 24 Hour (toPROL XL)Indications:Paro xysmal atrial fibrillation (HCC) Take 0.5 Tablets by [...] the morning. 16 g 5 09/12/2023 Active Zoster Vac Recomb Adjuvanted 50 MCG/0.5ML Intramuscular Suspension Reconstituted (Shingrix)Indicatio ns:Need for shingles vaccine Inject 0.5 mL into a large muscle now and repeat dose in 60 to 180 days 1 Each 1 09/29/2023 Active Comirnaty 30 MCG/0.3ML Intramuscular Suspension Prefilled Syringe (COVID-19 mRNA Vac-Bobbi(RPI ([employer]))) Inject into a large muscle as directed 0.3 mL 0 09/29/2023 Active Hospital, Clinic, or Other Facility Administered Medication Ordered Dose Route Frequency Start Date End Date Status albuterol sulfate (PROVENTIL) (2.5 MG/3ML) 0.083% inhalation solution 2.5 mgIndications:COPD, severity to be determined (HCC),Chondrosarcoma (HCC),Pulmonary hypertension (HCC) 2.5 mg NEBULIZER PRN 01/07/2019 Active vitamin b-12 (Cyanocobalamin) inj 1,000 mcgIndications:B12 deficiency 1000 mcg IM [id number] 04/19/2023 03/19/2024 Active documented as of this encounter (statuses as of 09/29/2023) Active Problems Problem Noted Date Diagnosed Date [...] as of this encounter (statuses as of 09/29/2023) Resolved Problems Problem Noted Date Diagnosed Date Resolved Date Permanent atrial fibrillation 03/28/2019 10/28/2021 Chronic systolic CHF (conges tive heart failure) 03/28/2019 01/03/2021 CHF with right heart failure 03/21/2019 03/12/2022 Atherosclerosis of aorta 11/16/2018 Carpal tunnel syndrome 03/28/201302/10 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 Henriquez [facility] [place] N/S asymptomatic en plaque cavernous sinus meningioma [...] well after 03/29 surgical repair LOC PRIM [id number] 05/09/2003 1010/2016 Esotropia 01/13/2003 02/10/2017 Overview: /03- R sixth nerve palsy- improving MRI/MRA negative Alopecia 01/13/2003 02/10/2017 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/2002 09/20/2018 Overview: not bx proven DIVERTICULOSIS OF COLON 06/16/200202/22 Menopause 06/16/2002 10/23/2021 Abnormal weight gain 06/16/2002 017 Other ulcerative colitis with rectal bleeding 03/12/2022 documented as of this encounter (statuses as of 09/29/2023) Immunizations Name Administration Dates Next Due COVID-19 mRNA, LNP-s, No Pre serve, 2-Dose Series (Moderna) 08/30/2020,07/25/2020 COVID-19, MRNA-LNP, 23-24, P F, 30 MCG/0.3 mL, 12 YRS AND ABOVE, IM ([employer]) 09/29/2023 COVID-19, mRNA, LNP-s, PF, B ooster, 100mcg/0.5mg (Moderna) 05/13/2021 Covid-19, Mrna, Lnp-s, Pf, B ivalent, 30 Mcg, IM, 12 yrs and above (Pfizer) 03/18/2022 PPD 02/14/2011 Pneumococcal Conjugate Vacc, 13 Valent (Prevnar) 11/16/2014 Pneumococcal Polysaccharide PPV23 (Pneumovax) 12/06/2021,02/22/2007 Season Influenza, Quad, PF, Adjuvanted, 65+ Yrs, IM (FLUAD) 02/20/2020 Seasonal Influenza, PF, 6 M & above, IM , (FluLaval or Fluzone) 02/16/2019,02/09/2018 Seasonal Influenza, Quadriva lent Hd (Fluzone Hd) 02/16/2023,02/19/2022,02/27/2021 Seasonal Influenza, Quadriva lent, No Preserve, IM 02/10/2017,03/23/2016,03/20/2015 Seasonal Influenza, Split, I IV3, With Preserve, Inj 02/08/2013,03/15/2012,02/11/2011,04/29,04/04/2009,03/23/2008,02/25/2007 ,03/17/2006 Seasonal Influenza, Trivalen t, High Dose, No [...] on file documented as of this encounter Plan of Treatment Upcoming Encounters Date Type Department Care Team (Late st Contact Info) Description 09/30/2023 8:20 AM EDT Office Visit Wound Care, [facility] [address] [place] [address] Radha Ribeiro DPM [address] [place] [address] 11/09/2023 11:20 AM EDT Office Visit General Internal Medicine [facility] [address] [place] [address] Leyda Ahn MD [address] [place] [address] 05/03/2024 9:00 AM EST Office Visit Neurology [facility] [address] [place] [address] Ellen Carias PA-C [address] [facility] [address] Scheduled Procedures Name Priority Associated Diagnoses Date/Ti me COLONOSCOPY FLEXIBLE PROXIMA L DIAGNOSTIC Recall IBD (inflammatory bowel disease) Health Maintenance Due Date Last Done Comments COVID-19 Vaccine (2022- season) 2023 09/29/2023, 03/18/2022, 05/13/2021, Additional history exists DXA Scan 08/10/2023 08/09/2020, 07/23, 11/07/2009, Additional [...] Completed 02/16/2023, 02/19/2022, 02/27/2021, Additional history exists GARDASIL-HPV IMMUNIZATION SERIES Aged Out No longer eligible based on patient's age to complete this topic Hepatitis B Aged Out No longer eligi ble based on patient's age to complete this topic MENINGOCOCCAL (MENACTRA/MENVEO) Aged Out No longer eligible based on patient's age to complete this topic documented as of this encounter Medical Devices Implanted Type Area Monitoring Specialist Device Identifier Shelf Expiration Date Model / Serial / Lot Valve Ce Aortic 21mm 3000tfx - [id number] Implanted:Qty : 1 on 04/17/2010 at OR [facility] [place] Tissue - Non Human N/A: Chest [employer] 04/17/2010 3000TFX-2 [id number] / Patch Pericard 8x14cm [id number] - [id number] Implanted:Qty : 1 on 04/17/2010 at OR [facility] [place] Tissue - Non Human N/A: Chest [employer] 12/05/2014 PC-[id number] / / [id number] Sut Steel 6 M654g - [id number] Implanted:Qty : 4 on 04/17/2010 at OR [facility] [place] N/A: Chest DO NOT USE 06/17/2014 [id number] / / [id number] documented as of this encounter Advance Directives Documents on File Type Date Recorded Patient Glass Maker Expl anation Advance Directives and Living Will 11/01/2008 LIVING WILL Latest Code Status on File Code Status Date Activated Date Inactivated Comments Full Code 04/17/2010 12:37 PM 04/22/2010 9:47 PM Th is order reflects the patients wishes and were consensually agreed upon. Care Teams Air Crew Member Relationship Specialty Start Date End Date Maxwell Sellers MD [address] [place] [address] PCP - General Internal Medicine 01/03/21 documented as of this encounter
--- OUTSIDE RECORDS SUMMARY | 2023-11-11 05:49 | External Medical Summary | Summary of Care ---
Author Name Unknown Organization [facility] Address [address] [place] [address] Phone [phone] Care Team Providers Care Chief Mechanical Officer Name Role Phone Maxwell Sellers MD Primary Care Provider + Reason for Visit * Reason Comments Follow Up RLE -- WOUNDS Encounter Details Date Type Department Care Team (Late st Contact Info) Description 09/30/2023 8:20 AM EDT Office Visit Wound Care, [address] [address] Radha Ribeiro DPM [address] [place], [place] [id number] Delayed healing of traumatic wound*; Venous insufficiency Allergies Active Allergy Reactions Criticality Noted Date Comments Pantoprazole 01/29/2022 Itchiness, rash Penicillins Hives 01/13/2003 hives documented as of this encounter (statuses as of 09/30/2023) Medications Medication Sig Dispensed Refills Start Date [...] Powder Breath Activated (umeclidinium-vilan terol)Indications:P ulmonary hypertension ([facility]),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 45 [...] MCG/0.3ML Intramuscular Suspension Prefilled Syringe (COVID-19 mRNA Vac-Bobbi(SiSense)) Inject into a large muscle as directed 0.3 mL 0 09/29/2023 Active Hospital, Clinic, or Other Facility Administered Medication Ordered Dose Route Frequency Start Date End Date Status albuterol sulfate (PROVENTIL) (2.5 MG/3ML) 0.083% inhalation solution 2.5 mgIndications:COPD, severity to be determined (HCC),Chondrosarcoma (HCC),Pulmonary hypertension (HCC) 2.5 mg NEBULIZER PRN 01/07/2019 Active vitamin b-12 (Cyanocobalamin) inj 1,000 mcgIndications:B12 deficiency 1000 mcg IM [id number] 04/19/2023 03/19/2024 Active documented as of this encounter (statuses as of 09/30/2023) Active Problems Problem Noted Date Diagnosed Date [...] as of this encounter (statuses as of 09/30/2023) Resolved Problems Problem Noted Date Diagnosed Date Resolved Date Permanent atrial fibrillation 03/28/2019 10/28/2021 Chronic systolic CHF (conges tive heart failure) 03/28/2019 01/03/2021 CHF with right heart failure 03/21/2019 03/12/2022 Atherosclerosis of aorta 11/16/2018 Carpal tunnel syndrome 03/28/201302/10 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 Henriquez [facility] N/S asymptomatic en [...] well after 03/29 surgical repair LOC PRIM [id number] 05/09/2003 1010/2016 Esotropia 01/13/2003 02/10/2017 Overview: 7/03- R sixth nerve palsy- improving MRI/MRA negative Alopecia 01/13/2003 02/10/2017 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/2002 09/20/2018 Overview: not bx proven DIVERTICULOSIS OF COLON 06/16/200202/222 Menopause 06/16/2002 10/23/2021 Abnormal weight gain 06/16/2002 017 Other ulcerative colitis with rectal bleeding 03/12/2022 documented as of this encounter (statuses as of 09/30/2023) Immunizations Name Administration Dates Next Due COVID-19 mRNA, LNP-s, No Pre serve, 2-Dose Series (Moderna) 08/30/2020,07/25/2020 COVID-19, MRNA-LNP, 23-24, P F, 30 MCG/0.3 mL, 12 YRS AND ABOVE, IM ([employer]-Comirnaty) 09/29/2023 COVID-19, mRNA, LNP-s, PF, B ooster, [...] on file documented as of this encounter Progress Notes * Radha Ribeiro, DPM - 09/30/2023 8:15 AM EDT Images from the original note were not included. Follow up Examination Patient: Nereida Stephen Allergies: Pantoprazole and Penicillins Chief Complaint: Chief Complaint Patient presents with Follow Up RLE -- WOUNDS History of Present Illness Nereida Stephen is a 83 year old female here today for RIGHT lower leg wound. Pt reports with Daughter who provides most of the history. Wound present at least since May. Currently being treated for cellulitis. Does not wear compression although has been told previously she needed to wear compression. Currently on Lasix. 09/22 Follow up right lower leg. 09/30/2023: Follow up right lower leg wound. Reports she's not sure what happened to her wrap. She feels like it fell off. Constitutional There were no vitals taken for this visit. Appearance: clean and neat Musculoskeletal Digits and nails within normal limits No joint swelling/tenderness Range of motion within normal limits Vascular Dorsalis Pedis Palpable Posterior Tibial Palpable Abnormalities: +1 pitting edema Respiratory Respiratory effort within normal limits No tenderness/masses/fremutis Integumentary warm & dry Abnormalities: See wound care assessment Psychiatric Judgment/insight intact mood/affect within normal limits Neurological No focal weakness Past Medical History Past Medical History: Diagnosis Date Aortic valve disorder Cervical spondylosis 02/11/2005 Colitis, enteritis, and gastroenteritis of presumed infectious origin COPD, mild (HCC) 05/08/2005 Crohn's colitis, unspecified complication (HCC) Idiopathic peripheral neuropathy 11/16/2018 Meningioma (HCC) 12/23/2013 Prosthetic aortic valve stenosis 01/06/2022 Restless leg syndrome 05/08/2005 Right internal carotid occlusion 10/04/2017 S/P aortic valve replacement 04/29/2010 Spinal stenosis of lumbar region without neurogenic claudication 03/19/2006 Past Surgical History Past Surgical History: Procedure Laterality Date CARDIAC CATH-CARDIOLOGY ONLY 04/08/2010 CATHETERIZE LEFT HEART THRU SKIN 04/08/2010 LEFT HEART CATH, PERCUTANEOUS performed by YOLIS CHEATHAM at [facility] COLONOSCOPY 02/26/2005 Colonoscopy done at [facility] by Dr. Hilliard COLONOSCOPY THRU STOMA, W/BIOPSY 02/2009 chronic colitis with moderate activity, sm bowel ileitis, f/u in office COLONOSCOPY W/ BIOPSY (RECTUM) 11/15/2007 bx's taken COLONOSCOPY W/ BIOPSY (RECTUM) 02/14/2011 inflammation in colon- await path COLONOSCOPY, DIAGNOSTIC (RECTUM) 09/12/2014 normal bx, repeat 2 yrs/COLONOSCOPY FLEXIBLE PROXIMAL DIAGNOSTIC performed by Eduar Beckham MD at [facility] COLONOSCOPY, DIAGNOSTIC (RECTUM) 09/24/2018 diverticulosis, repeat 3 yrs / [facility] COLONOSCOPY, DIAGNOSTIC (RECTUM) 12/25/2021 chronic active colitis / INPT [facility] EGD, FLEXIBLE, DIAGNOSTIC 09/24/2018 gastritis / [facility] EGD, FLEXIBLE, DIAGNOSTIC 12/25/2021 sm hiatal hernia / INPT [facility] INFORMATION 04/17/2010 [employer] Aortic Valve Model# 3000TFX-21 MISCELLANEOUS ORDER ([facility] ONLY) 05/2104 Gamma Knife for meningioma at [facility] MISCELLANEOUS ORDER ([facility] ONLY) N/A 05/04/2017 redo of chest chondrosarcoma at [facility] NECK/CHEST DEEP TUMOR REMOVAL, UNDER 5 CM 04/17/2010 EXCISION TUMOR DEEP NECK THORAX performed by DEVORAH CARSON at [facility] NONE 07/2004 thyroidectomy in [place] PARTIAL COLECTOMY W/ANASTOMOSIS 10/2001 Colectomy Partial rectosigmoid resection with RUTH/BSO and incidental appy REMOVAL OF APPENDIX 10/2001 Appendectomy REMOVAL OF OVARY/OVIDUCT(S) 10/2001 Ovary/Tube(S) Removal REMOVAL OF THYROID GLAND 2004 Thyroidectomy REPAIR INITIAL INCISIONAL HERNIA 04/14/2005 [facility] Dr. Hilliard REPAIR INITIAL INCISIONAL OR VENTRAL HERNIA; REDUCIBLE 01/08/2004 Lower abdominal hernia repair with mesh [facility] Dr. 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 Tobacco Use Smoking status: Former Current packs/day: 0.00 Average packs/day: 3.0 packs/day for 23.0 years (69.0 ttl pk-yrs) Types: Cigarettes Start date: 05/25/1978 Quit date: 05/25/2001 Years since quittin.3 Smokeless tobacco: Never Vaping Use Vaping Use: Never used Substance and Sexual Activity Alcohol use: Yes Alcohol/week: 14.0 standard drinks of alcohol Types: 14 12 oz of beer per week Drug use: No Sexual activity: Yes Partners: Male Other Topics Concern Service Not Asked Blood Transfusions No Caffeine Concern Not Asked Occupational Exposure Not Asked Hobby Hazards Not Asked Sleep Concern Not Asked Stress Concern Not Asked Weight Concern Not Asked Special Diet Not Asked Back Care Not Asked Exercise Not Asked Bike Helmet Not Asked Seat Belt Not Asked Self-Exams Not Asked Social History Narrative No pets No mold Social Determinants of Health Financial Resource Strain: Not on file Food Insecurity: No Food Insecurity (03/25/2022) Hunger Vital Sign Worried About Running Out of Food in the Last Year: Never true Ran Out of Food in the Last Year: Never true Transportation Needs: Not on file Physical Activity: Not on file Stress: Not on file Social Connections: Not on file Intimate Partner Violence: Not on file Housing Stability: Not on file Current Meds Current Outpatient Medications Medication Sig Dispense Refill Acetaminophen ER 650 MG Oral Tablet Extended Release 2 pill daily in AM & 2 pills in afternoon if needed oxygen GAS Use 2.5 L/min(Oxygen) as directed at bedtime. 1 Each 1 Albuterol Sulfate HFA 108 (90 Base) MCG/ACT Inhalation Aerosol Solution Inhale by mouth 2 Puffs every 4 hours as needed for Cough, Shortness of Breath or Wheezing. 20.1 g 3 Mesalamine 1.2 GM Oral Tablet Delayed Release (Lialda) Take 2 Tablets by mouth in the morning. 180 Tablet 3 Polyethylene Glycol 3350 17 GM/SCOOP Oral Powder Take 17 g by mouth as needed. Aspirin 81 MG Oral Tablet Delayed Release Take 1 Tablet by mouth in the morning. oxygen IN GAS 2L/min(Oxygen) continuous via nasal cannula. 1 Each 0 Anoro Ellipta 62.5-25 MCG/ACT Inhalation Aerosol Powder Breath Activated (umeclidinium-vilanterol) Inhale 1 Puff by mouth in the morning. 180 Blister Dosing Unit 3 Furosemide 20 MG Oral Tablet (Lasix) 1 tab by mouth 3 days/week until leg edema improves (Patient taking differently: as needed (edema). 1 tab by mouth 3 days/week until leg edema improves) 30 [id number] Metoprolol Succinate ER 25 MG Oral Tablet Extended Release 24 Hour (toPROL XL) Take 0.5 Tablets by mouth daily. 45 Tablet 3 Gabapentin 100 MG Oral Capsule (Neurontin) Take 1 tab three times daily 270 Capsule 1 Levothyroxine Sodium 112 MCG Oral Tablet (Levoxyl) Take 1 Tablet by mouth daily first thing in the morning. (at least 30 min prior to breakfast or other meds) 90 Tablet 2 Entresto 24-26 MG Oral Tablet Take 1 Tablet by mouth in the morning and 1 Tablet before bedtime. Fluticasone Propionate 50 MCG/ACT Nasal Suspension (Flonase) Administer 2 Sprays into each nostril in the morning. 16 g 5 Zoster Vac Recomb Adjuvanted 50 MCG/0.5ML Intramuscular Suspension Reconstituted (Shingrix) Inject 0.5 mL into a large muscle now and repeat dose in 60 to 180 days 1 Each 1 Shingrix 50 MCG/0.5ML Intramuscular Suspension Reconstituted (Zoster Vac Recomb Adjuvanted) inject 0.5ml intramuscularly as directed 1 Each 0 Comirnaty 30 MCG/0.3ML Intramuscular Suspension Prefilled Syringe (COVID-19 mRNA Vac-Bobbi(SiSense)) Inject into a large muscle as directed 0.3 mL 0 Current Facility-Administered Medications Medication Dose Route Frequency Provider Last Rate Last Admin albuterol sulfate (PROVENTIL) (2.5 MG/3ML) 0.083% inhalation solution 2.5 mg 2.5 mg Nebulizer PRN Kelsey Bowles, DO 2.5 mg at 11/12/21 1153 vitamin b-12 (Cyanocobalamin) inj 1,000 mcg 1,000 mcg Intramuscular Q4 Weeks Yahir Collado PA-C 1,000 mcg at 05/29/23 1022 WOUND ASSESSMENT Wound Grade/Stage/Type (if changed): Wound/Ulcer Etiology: Trauma, Other Alteration in Skin Integrity Anterior;Lower;Right Leg (Active) Clinical Image 09/30/23 08 Wound Length (cm) 1.7 cm 09/30/23 0806 Wound Width (cm) 0.6 cm 09/30/23 0806 Wound Depth (cm) -- (Unknown due to scab) 09/30/23 0806 Yellow Fibrinous Slough (%) none 09/30/23 0806 Drainage none 09/30/23 0806 Odor (after cleansing wound) No 09/30/23 0806 Eleanor-Wound (Surrounding Skin) Intact 09/30/23 0806 Wound Surface Area (cm^2) 1.02 cm^2 09/30/23 0806 Wound Profile Wound Type: Trauma (23) Wound Location: RIGHT lower leg Pressure Wound: N/A Diabetic Wound/Lower Extremity: N/A All Others: Full Thickness Wound/Ulcer Debridement No Debridement Performed Assessment/Plan: (T14.8XXD) Delayed healing of traumatic wound (primary encounter diagnosis) (I87.2) Venous insufficiency - Pt seen and evaluated - Wound healed - D/c from wound care - Follow up PRN Radha Ribeiro DPM 09/30/2023 documented in this encounter Nursing Notes * Breonna Ferris, IAN - 09/30/2023 8:01 AM EDT Assisted to sit safely from W/C to exam seating. Wrap placed last week has come off - not sure whenfor certain as Nereida can not say for sure" let's say yesterday" Wound is uncovered , and no dressing in place - denies pain at this time as well. Dry scabbed to surface. Photo and measurements taken. Will alert provider of ready for care. Will provide treatment per order post visit. documented in this encounter Plan of Treatment Upcoming Encounters Date Type Department Care Team (Late st Contact Info) Description 11/09/2023 11:20 AM EDT Office Visit General Internal Medicine [facility] [address] [place] [address] Leyda Ahn MD [address] [facility] [place] [address] 05/03/2024 9:00 AM EST Office Visit Neurology [facility] [place] [address] [facility] [place] [address] Ellen Carias PA-C [address] [place] [address] Scheduled Procedures Name Priority Associated Diagnoses Date/Ti [...] this encounter Medical Devices Implanted Type Area Interventional Cardiologist Device Identifier Shelf Expiration Date Model / Serial / Lot Valve Ce Aortic 21mm 3000tfx - [id number] Implanted:Qty : 1 on 04/17/2010 at [facility] Tissue - Non Human N/A: Chest [id number] ELISABETH 04/17/2010 3000TFX-[id number] / Patch Pericard 8x14cm [id number] - [id number] Implanted:Qty : 1 on 04/17/2010 at [facility] Tissue - Non Human N/A: Chest [employer] 12/05/2014 [id number] / / [id number] [employer] 6 [id number] - [id number] Implanted:Qty : 4 on 04/17/2010 at [facility] N/A: Chest DO NOT USE 06/17/2014 [id number] / / [id number] documented as of this encounter Visit Diagnoses Diagnosis Delayed healing of traumatic wound- Primary Venous insufficiency Unspecified venous (peripheral) insufficiency documented in this encounter Advance Directives Documents on File Type Date Recorded 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 Care Teams Chief Mechanical Officer Relationship Specialty Start Date End Date Maxwell Sellers MD [address] [place] [address] PCP - General Internal Medicine 01/03/21 documented as of this encounter
--- OUTSIDE RECORDS SUMMARY | 2023-11-11 05:49 | External Medical Summary | Summary of Care ---
Author Name Unknown Organization [facility] Address [address] [facility] [place] [address] Phone [phone] Care Team Providers Care Utilization Management Um Nurse Name Role Phone Maxwell Sellers MD Primary Care Provider + Reason for Visit * Reason Comments eRx-Medication Refill Encounter Details Date Type Department Care Team (Late st Contact Info) Description 10/27/2023 Refill [facility], [facility] [address] [facility] [address] Jason Whaley CRNP [address] [address] Allergies Active Allergy Reactions Criticality Noted Date Comments Pantoprazole 01/29/2022 Itchiness, rash Penicillins Hives 01/13/2003 hives documented as of this encounter (statuses as of 10/29/2023) Medications Medication Sig Dispensed Refills Start Date End Date Status Acetaminophen ER 650 MG Oral Tablet Extended Release 2 pill daily in AM & 2 pills in afternoon if needed 5 Active oxygen GASIndications:Noc turnal hypoxemia,COPD, mild (HCC) Use 2.5 L/min(Oxygen) as directed at bedtime. 1 Each 1 9 Active Albuterol Sulfate HFA 108 (90 Base) MCG/ACT Inhalation Aerosol SolutionIndication s:COPD, mild (HCC) Inhale by mouth 2 Puffs every 4 hours as needed for Cough, Shortness of Breath or Wheezing. 20.1 g 3 2 Active Polyethylene Glycol 3350 17 GM/SCOOP Oral Powder Take 17 g by mouth as needed. Active Aspirin 81 MG Oral Tablet Delayed Release Take 1 Tablet by mouth in the morning. Active oxygen IN GAS 2L/min(Oxygen) continuous via nasal cannula. 1 Each 3 Active Anoro Ellipta 62.5-25 MCG/ACT Inhalation Aerosol Powder Breath Activated (umeclidinium-luisana nterol)Indications :Pulmonary hypertension (HCC),Chondrosarco ma ([facility]),COPD, severity to be determined (HCC) Inhale 1 Puff by mouth in the morning. 180 Blister Dosing Unit 3 3 Active Furosemide 20 MG Oral Tablet (Lasix) 1 tab by mouth 3 days/week until leg edema improves 30 Tablet 11 3 Active Additional Information Patient taking differently: PRN, edema, 1 tab by mouth 3 days/week until leg edema improves, Reported on 05/15/2023 Metoprolol Succinate ER 25 MG Oral Tablet Extended Release 24 Hour (toPROL XL)Indications:Par oxysmal atrial fibrillation (HCC) Take 0.5 Tablets by mouth daily. 45 Tablet 3 4 Active Gabapentin 100 MG Oral Capsule (Neurontin) Take 1 tab three times daily 270 Capsule 1 4 Active Levothyroxine Sodium 112 MCG Oral Tablet (Levoxyl) Take 1 Tablet by mouth daily first thing in the morning. (at least 30 min prior to breakfast or other meds) 90 Tablet 2 4 Active Entresto 24-26 MG Oral Tablet Take 1 Tablet by mouth in the morning and 1 Tablet before bedtime. 4 Active Fluticasone Propionate 50 MCG/ACT Nasal Suspension (Flonase) Administer 2 Sprays into each nostril in the morning. 16 g 5 4 Active Zoster Vac Recomb Adjuvanted 50 MCG/0.5ML Intramuscular Suspension Reconstituted (Shingrix)Indicati ons:Need for shingles vaccine Inject 0.5 mL into a large muscle now and repeat dose in 60 to 180 days 1 Each 1 4 Active Comirnaty 30 MCG/0.3ML Intramuscular Suspension Prefilled Syringe (COVID-19 mRNA Vac-Bobbi([employer])) Inject into a large muscle as directed 0.3 mL 4 Active Mesalamine 1.2 GM Oral Tablet Delayed Release (Lialda) TAKE 2 TABLETS BY MOUTH EVERY MORNING 180 Tablet 3 4 Active Mesalamine 1.2 GM Oral Tablet Delayed Release (Lialda) Take 2 Tablets by mouth in the morning. 180 Tablet 3 3 10/29/19 24 Discontinued Hospital, Clinic, or Other Facility Administered Medication Ordered Dose Route Frequency Start Date End Date Status albuterol sulfate (PROVENTIL) (2.5 MG/3ML) 0.083% inhalation solution 2.5 mgIndications:COPD, severity to be determined (HCC),Chondrosarcoma (HCC),Pulmonary hypertension (HCC) 2.5 mg NEBULIZER PRN 01/07/2019 Active vitamin b-12 (Cyanocobalamin) inj 1,000 mcgIndications:B12 deficiency 1000 mcg IM A1LEIOR 04/19/2023 03/19/2024 Active documented as of this encounter (statuses as of 10/29/2023) Active Problems Problem Noted Date Diagnosed Date [...] as of this encounter (statuses as of 10/29/2023) Resolved Problems Problem Noted Date Diagnosed Date Resolved Date Permanent atrial fibrillation 03/28/2019 10/28/2021 Chronic systolic CHF (conges tive heart failure) 03/28/2019 01/03/2021 CHF with right heart failure 03/21/2019 03/12/2022 Atherosclerosis of aorta 11/16/2018 Carpal tunnel syndrome 03/28/201302/10 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 Henriquez [facility] N/S asymptomatic en plaque [...] well after 03/29 surgical repair LOC PRIM [id number] 05/09/2003 10/10/2016 Esotropia 01/13/2003 02/10/2017 Overview: 11/24- R sixth nerve palsy- improving MRI/MRA negative Alopecia 01/13/2003 02/10/2017 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/2002 09/20/2018 Overview: not bx proven DIVERTICULOSIS OF COLON 06/16/200202/22 Menopause 06/16/2002 10/23/2021 Abnormal weight gain 06/16/2002 017 Other ulcerative colitis with rectal bleeding 03/12/2022 documented as of this encounter (statuses as of 10/29/2023) Immunizations Name Administration Dates Next Due COVID-19 mRNA, LNP-s, No Pre serve, 2-Dose Series (Moderna) 08/30/2020,07/25/2020 COVID-19, MRNA-LNP, 23-24, P F, 30 MCG/0.3 mL, 12 YRS AND ABOVE, IM ([employer]) 09/29/2023 COVID-19, mRNA, LNP-s, PF, B ooster, 100mcg/0.5mg (Moderna) 05/13/2021 Covid-19, Mrna, Lnp-s, Pf, B ivalent, 30 Mcg, IM, 12 yrs and above ([employer]) 03/18/2022 PPD 02/14/2011 Pneumococcal Conjugate Vacc, 13 [...] encounter Miscellaneous Notes * Telephone Encounter - Jason Whaley CRNP - 10/29/2023 1:36 PM EDTSigned Prescriptions: Disp Refills Mesalamine 1.2 GM Oral Tablet Delayed Rele*180 Ta*3 Sig: TAKE 2 TABLETS BY MOUTH EVERY MORNING Authorizing Provider: JASON WHALEY * Telephone Encounter - Chasity [facility] Denise Inbound - 10/29/2023 11:43 AM EDT Pending Prescriptions: Disp Refills Mesalamine 1.2 GM Oral Tablet Delayed Rele*180 Ta*3 Sig: TAKE 2 TABLETS BY MOUTH EVERY MORNING * Telephone Encounter - Al Cabrera, [facility] - 10/28/2023 4:39 PM EDT Pending Prescriptions: Disp Refills Mesalamine 1.2 GM Oral Tablet Delayed Rele*180 Ta*3 Sig: TAKE 2 TABLETS BY MOUTH EVERY MORNING * Telephone Encounter - Al Cabrera [facility] - 10/28/2023 4:39 PM EDT Last office visit in 2021. Jason - may you review and refill if agreeable? * Telephone Encounter - Ashwiin Angulo [facility] - 10/28/2023 1:27 PM EDTPending Prescriptions: Disp Refills Mesalamine 1.2 GM Oral Tablet Delayed Rele*180 Ta*3 Sig: TAKE 2TABLETS BY MOUTH EVERY MORNING documented in this encounter Plan of Treatment Upcoming Encounters Date Type Department Care Team ([facility] st Contact Info) Description 11/09/2023 11:20 AM EDT Office Visit General Internal Medicine [address] [place] [address] Leyda Ahn MD [address] [facility] [place] [address] 05/03/2024 9:00 AM EST Office Visit Neurology [facility] [address] [facility] [place] [address] Ellen Carias PA-C [address] [place] [address] Scheduled Procedures Name Priority Associated Diagnoses Date/Ti me COLONOSCOPY FLEXIBLE PROXIMA L DIAGNOSTIC Recall IBD (inflammatory bowel disease) Health Maintenance Due Date Last Done Comments DXA Scan 08/10/2023 08/09/2020, 07/23, 11/07/2009, Additional history exists Zoster Vaccines (3 of 3) 11/24/2023 024, 09/14/2014, 09/14/2014 Colonoscopy 12/26/2023 12/25/2021, 08/0 07/2021, 09/24/2018, Additional history exists COVID-19 Vaccine (2022- season) 2024 09/29/2023, 03/18/2022, 05/13/2021, Additional history exists Depression Screening 05/15/2024 05/15/2023 [...] this encounter Medical Devices Implanted Type Area Internal Communications Specialist Device Identifier Shelf Expiration Date Model / Serial / Lot Valve Ce Aortic 21mm 3000tfx - [id number] Implanted:Qty : 1 on 04/17/2010 at OR [facility] Tissue - Non Human N/A: Chest [employer] ELISABETH 04/17/2010 3000TFX-2 [id number] / Patch Pericard 8x14cm [id number] - [id number] Implanted:Qty : 1 on 04/17/2010 at OR [facility] Tissue - Non Human N/A: Chest [employer] 12/05/2014 PC-0814N / / [id number] Sut Steel 6 [id number] - [id number] Implanted:Qty : 4 on 04/17/2010 at OR [facility] N/A: Chest DO NOT USE 06/17/2014 [id number] / / [id number] documented as of this encounter Advance Directives Documents on File Type Date Recorded Patient Manager Editorial Expl 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 Care Teams Utilization Management Um Nurse Relationship Specialty Start Date End Date Maxwell Sellers MD [address] [place] [address] PCP - General Internal Medicine 01/03/21 documented as of this encounter
--- OUTSIDE RECORDS SUMMARY | 2023-11-11 05:50 | External Medical Summary | Summary of Care ---
Author Name Unknown Organization [facility] Address [address] [place] [address] Phone [phone] Care Team Providers Care Rehab Liaison Name Role Phone Maxwell Sellers MD Primary Care Provider + Reason for Visit * Reason Comments eRx-Medication Refill Encounter Details Date Type Department Care Team (Late st Contact Info) Description 08/30/2023 [facility] [address] [place] [address] Barbara Dunbar PA-C [address] [facility] [place] [address] Allergies Active Allergy Reactions Criticality Noted Date Comments Pantoprazole 01/29/2022 Itchiness, rash Penicillins Hives 01/13/2003 hives documented as of this encounter (statuses as of 09/02/2023) Medications Medication Sig Dispensed Refills Start Date End Date Status Acetaminophen ER 650 MG Oral Tablet Extended Release 2 pill daily in AM & 2 pills in afternoon if needed 0 03/20/2015 Active oxygen GASIndications:No cturnal hypoxemia,COPD, mild (HCC) Use 2.5 L/min(Oxygen) as directed at bedtime. 1 Each 1 03/25/2019 Active Albuterol Sulfate HFA 108 (90 Base) MCG/ACT Inhalation Aerosol SolutionIndicatio ns:COPD, mild (HCC) Inhale by mouth 2 Puffs every 4 hours as needed for Cough, Shortness of Breath or Wheezing. 20.1 g 3 11/06/2021 Active Mesalamine 1.2 GM Oral Tablet Delayed Release (Lialda) Take 2 Tablets by mouth in the morning. 180 Tablet 3 09/29/2022 Active Levothyroxine Sodium 112 MCG Oral Tablet (Levoxyl) Take 1 Tablet by mouth daily first thing in the morning. (at least 30 min prior to breakfast or other meds) 90 Tablet 3 10/01/2022 Active Polyethylene Glycol 3350 17 GM/SCOOP Oral Powder Take 17 g by mouth as needed. 0 Active Aspirin 81 MG Oral Tablet Delayed Release Take 1 Tablet by mouth in the morning. 0 Active oxygen IN GAS 2L/min(Oxygen) continuous via nasal cannula. 1 Each 0 10/09/2022 Active Anoro Ellipta 62.5-25 MCG/ACT Inhalation Aerosol Powder Breath Activated (umeclidinium-dale anterol)Indicatio ns:Pulmonary hypertension (HCC),Chondrosarc arline (HCC),COPD, severity to be determined (HCC) Inhale 1 [...] Oral Tablet Extended Release 24 Hour (toPROL XL)Indications:Pa roxysmal atrial fibrillation (HCC) Take 0.5 Tablets by mouth daily. 45 Tablet 3 08/12/2023 Active Gabapentin 100 MG Oral Capsule (Neurontin) 1 tab am 1 tab noon x 7days then 1 tab three times daily 270 Capsule 1 05/13/2022 4 Discontinue d(Refill) Hospital, Clinic, or Other Facility Administered Medication Ordered Dose Route Frequency Start Date End Date Status albuterol sulfate (PROVENTIL) (2.5 MG/3ML) 0.083% inhalation solution 2.5 mgIndications:COPD, severity to be determined (HCC),Chondrosarcoma (HCC),Pulmonary hypertension (HCC) 2.5 mg NEBULIZER PRN 01/07/2019 Active vitamin b-12 (Cyanocobalamin) inj 1,000 mcgIndications:B12 deficiency 1000 mcg IM [id number] 04/19/2023 03/19/2024 Active documented as of this encounter (statuses as of 09/02/2023) Active Problems Problem Noted Date Diagnosed Date Spinal stenosis of lumbar re gion without [...] as of this encounter (statuses as of 09/02/2023) Resolved Problems Problem Noted Date Diagnosed Date Resolved Date Permanent atrial fibrillation 03/28/2019 10/28/2021 Chronic systolic CHF (conges tive heart failure) 03/28/2019 01/03/2021 CHF with right heart failure 03/21/2019 03/12/2022 Atherosclerosis of aorta 11/16/2018 Carpal tunnel syndrome 03/28/201302/10 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 Henriquez [facility] N/S asymptomatic en plaque cavernous [...] well after 03/29 surgical repair LOC PRIM [id number] 05/09/2003 1010/2016 Esotropia 01/13/2003 02/10/2017 Overview: /- R sixth nerve palsy- improving MRI/MRA negative Alopecia 01/13/2003 02/10/2017 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/2002 09/20/2018 Overview: not bx proven DIVERTICULOSIS OF COLON 06/16/200202/22 Menopause 06/16/2002 10/23/2021 Abnormal weight gain 06/16/2002 017 Other ulcerative colitis with rectal bleeding 03/12/2022 documented as of this encounter (statuses as of 09/02/2023) Immunizations Name Administration Dates Next Due COVID-19 mRNA, LNP-s, No Pre serve, 2-Dose Series (Moderna) 08/30/2020,07/25/2020 COVID-19, mRNA, LNP-s, PF, B ooster, 100mcg/0.5mg [...] older)(Boostrix) 03/02/2019, Varicella Zoster Vaccine (Adult) 09/14/2014 documented as of this encounter Social History [...] encounter Miscellaneous Notes * Telephone Encounter - Cole Perdue [facility] - 09/02/2023 9:52 AM EDTRefused Prescriptions: Disp Refills Gabapentin 100 MG Oral Capsule (Neurontin) 270 Ca*1 Sig: TAKE 1TAB BY MOUTH IN AM, 1 TAB NOON X 7DAYS THEN 1 TAB THREE TIMES DAILYRefused By: Filomena PERDUE for Refusal: Duplicate Request documented in this encounter Plan of Treatment Upcoming Encounters Date Type Department Care Team (Late st Contact Info) Description 11/09/2023 11:20 AM EDT Office Visit General Internal Medicine [facility] [address] [facility] [place] [address] Leyda Ahn MD [address] [facility] [place] [address] 05/03/2024 9:00 AM EST Office Visit Neurology [facility] [address] [facility] [place] [address] Ellen Carias PA-C [address] [place] [address] Scheduled Procedures Name Priority Associated Diagnoses Date/Ti me COLONOSCOPY FLEXIBLE PROXIMA L DIAGNOSTIC Recall IBD (inflammatory bowel disease) Health Maintenance Due Date Last Done Comments Zoster Vaccines (2 of 3) 11/09/2014 09/14/2014, 08/24 COVID-19 Vaccine ( season) 2023 03/18/2022, 05/13/2021, 08/30/2020, Additional history exists DXA Scan 08/10/2023 08/09/2020, 10/23, 11/07/2009, Additional history exists COLONOSCOPY-EVERY 2 YRS AGES 18-100 12/26/2023 12/25/2021, 12/25/2021, 09/24/2018, Additional history exists Depression Screening 05/15/2024 05/15/2023 O2 ASSESSMENT COMPLETED IN PAST YEAR FOR COPD 05/15/2024 05/15/2023 TSH 05/15/2024 05/15/2023, 01/24, 10/02/2022, Additional history exists DTaP,Tdap,and Td Vaccines (3 - Td or Tdap) 03/02/2029 03/02/2019, 09/14/2014, 10/13/2007 Alpha-1 Antitrypsin Completed 11/01/2021 Pneumococcal Vaccine: 65+ Years Completed 12/06/2021, 11/16/2014, 02/22/2007, Additional history exists Influenza Vaccine (FLU shot) Completed , 02/19/2022, 02/27/2021, Additional history exists GARDASIL-HPV IMMUNIZATION SERIES Aged Out No longer eligible based on patient's age to complete this topic Hepatitis B Aged Out No longer eligi ble based on patient's age to complete this topic MENINGOCOCCAL (MENACTRA/MENVEO) Aged Out No longer eligible based on patient's age to complete this topic documented as of this encounter Medical Devices Implanted Type Area Agricultural Research Director Device Identifier Shelf Expiration Date Model / Serial / Lot Valve Ce Aortic 21mm 3000tfx - [id number] Implanted:Qty : 1 on 04/17/2010 at OR [facility] Tissue - Non Human N/A: Chest [employer] ELISABETH 04/17/2010 3000TFX-2 [id number] / Patch Pericard 8x14cm [id number] - [id number] Implanted:Qty : 1 on 04/17/2010 at OR [facility] Tissue - Non Human N/A: Chest [employer] 12/05/2014 PC-0814N / / [id number] Sut Steel 6 M654g - [id number] Implanted:Qty : 4 on 04/17/2010 at OR [facility] N/A: Chest DO NOT USE 06/17/2014 M654G / / [id number] documented as of this encounter Advance Directives Documents on File Type Date Recorded Patient Residential Carpenter Expl anation Advance Directives and Living Will 11/01/2008 LIVING WILL Latest Code Status on File Code Status Date Activated Date Inactivated Comments Full Code 04/17/2010 12:37 PM 04/22/2010 9:47 PM Th is order reflects the patients wishes and were consensually agreed upon. Care Teams Rehab Liaison Relationship Specialty Start Date End Date Maxwell Sellers MD [address] [place] [address] PCP - General Internal Medicine 01/03/21 documented as of this encounter
--- OUTSIDE RECORDS SUMMARY | 2023-11-11 05:50 | External Medical Summary | Summary of Care ---
Author Name Unknown Organization [facility] Address [address] [place] [address] Phone [phone] Care Team Providers Care Freight Handler Name Role Phone Maxwell Sellers MD Primary Care Provider + Reason for Referral * Medication Prior Authorization - Pending Review Specialty Diagnoses / Procedures Referred By Vinita t Referred To Contact Diagnoses Need for shingles vaccine Maxwell Sellers MD [address] [place] [address] Referral ID Status Reason Start Date Expiration Date V isits Requested Visits Authorized [id number] Pending Review [phone] Reason for Visit * Reason Onset Date Comments Order Request 09/29/2023 Encounter Details Date Type Department Care Team (Late st Contact Info) Description 09/29/2023 Telephone Family Practice [facility] [address] [facility] [address] Maxwell Sellers MD [address] [place] [address] Order Request Allergies Active Allergy Reactions Criticality Noted Date Comments Pantoprazole 01/29/2022 Itchiness, rash Penicillins Hives 01/13/2003 hives documented as of this encounter (statuses as of 09/29/2023) Medications Medication Sig Dispensed Refills Start Date End Date Status Acetaminophen ER 650 MG Oral Tablet Extended Release 2 pill daily in AM & 2 pills in afternoon if needed 0 03/20/2015 Active oxygen GASIndications:Noct urnal hypoxemia,COPD, mild ([facility]) Use 2.5 L/min(Oxygen) as directed at bedtime. [...] Powder Breath Activated (umeclidinium-vilan terol)Indications:P ulmonary hypertension ([facility]),Chondrosarcom a ([facility]),COPD, severity to be determined ([facility]) Inhale 1 Puff by mouth [...] 180 days 1 Each 1 09/29/2023 Active Hospital, Clinic, or Other Facility Administered Medication Ordered Dose Route Frequency Start Date End Date Status albuterol sulfate (PROVENTIL) (2.5 MG/3ML) 0.083% inhalation solution 2.5 mgIndications:COPD, severity to be determined (HCC),Chondrosarcoma (HCC),Pulmonary hypertension (HCC) 2.5 mg NEBULIZER PRN 01/07/2019 Active vitamin b-12 (Cyanocobalamin) inj 1,000 mcgIndications:B12 deficiency 1000 mcg IM [id number] 04/19/2023 03/19/2024 Active documented as of this [...] tunnel syndrome 03/28/201302/10 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 Henriquez [facility] N/S asymptomatic en plaque cavernous sinus meningioma [...] well after 03/29 surgical repair LOC PRIM [id number] 05/09/2003 10/0 10/2016 Esotropia 01/13/2003 02/10/2017 Overview: 7/03- R sixth [...] 30 Mcg, IM, 12 yrs and above ([place] [facility]) 03/18/2022 PPD 02/14/2011 Pneumococcal Conjugate Vacc, 13 [...] encounter Miscellaneous Notes * Telephone Encounter - Niya Pierre LPN - 09/29/2023 8:44 AM EDT Pt coming in today for Shinrix vaccine and need order sent to [facility] pharmacy as she has medicare. Pt also receiving Covid booster at pharmacy, can do them at together. documented in this encounter Plan of Treatment Upcoming Encounters Date Type Department Care Team (Late st Contact Info) Description 09/29/2023 10:15 AM EDT Immunization [facility] [address] [place] [address] [place] [facility] [address] [place] [address] 09/29/2023 10:30 AM EDT Nurse Only Ancillary [facility] Damar [address] [place] [address] Nurse Ankit Fam Prac [place] [address] [facility] [place] [address] 09/30/2023 8:20 AM EDT Office Visit Wound [facility], [facility] [address] [facility] [address] Radha Ribeiro, ABBY [address] [place] [address] 11/09/2023 11:20 AM EDT Office Visit General Internal Medicine [facility] [address] [facility] [place] [address] Leyda Ahn MD [address] [facility] [place] [address] 05/03/2024 9:00 AM EST Office Visit Neurology [facility] [address] [facility] [place] [address] Ellen Carias PA-C [address] [facility] [address] Scheduled Procedures Name Priority Associated Diagnoses Date/Ti me COLONOSCOPY FLEXIBLE PROXIMA L DIAGNOSTIC Recall IBD (inflammatory bowel disease) Health Maintenance Due Date Last Done Comments Zoster Vaccines (2 of 3) 11/09/2014 09/14/2014, 08/24 COVID-19 Vaccine ( season) 2023 03/18/2022, 05/13/2021, 08/30/2020, Additional history exists DXA Scan 08/10/2023 08/09/2020, 07/23, 11/07/2009, Additional history exists Colonoscopy 12/26/2023 12/25/2021, 07/2021, 09/24/2018, Additional history exists Depression Screening [...] this encounter Medical Devices Implanted Type Area Grocery Store Manager Device Identifier Shelf Expiration Date Model / Serial / Lot Valve Ce Aortic 21mm 3000tfx - [id number] Implanted:Qty : 1 on 04/17/2010 at OR [facility] Tissue - Non Human N/A: Chest [employer] ELISABETH 04/17/2010 3000TFX-2 [id number] / Patch Pericard 8x14cm [id number] - [id number] Implanted:Qty : 1 on 04/17/2010 at OR [facility] Tissue - Non Human N/A: Chest [employer] 12/05/2014 PC-0814N / / [id number] Sut Steel 6 M654g - [id number] Implanted:Qty : 4 on 04/17/2010 at OR [facility] N/A: Chest DO NOT USE 06/17/2014 M654G / / [id number] documented as of this encounter Visit Diagnoses Diagnosis Need for shingles vaccine- Primary Need for prophylactic vaccination and inoculation against other viral diseases documented in this encounter Advance Directives Documents on File Type Date Recorded Patient Supervisor Painting Shipyard Expl anation Advance Directives and Living Will 11/01/2008 LIVING WILL Latest Code Status on File Code Status Date Activated Date Inactivated Comments Full Code 04/17/2010 12:37 PM 04/22/2010 9:47 PM Th is order reflects the patients wishes and were consensually agreed upon. Care Teams Freight Handler Relationship Specialty Start Date End Date Maxwell Sellers MD [address] [facility] [place] [address] PCP - General Internal Medicine 01/03/21 documented as of this encounter
--- OUTSIDE RECORDS SUMMARY | 2023-11-11 05:50 | External Medical Summary | Summary of Care ---
Author Name Unknown Organization [facility] Address [address] [place] [address] Phone [phone] Care Team Providers Care Assistant Produce Manager Name Role Phone Maxwell Sellers MD Primary Care Provider + Reason for Referral * Evaluate & Treat - Unlimited Visits (Within 10 days (routine)) - Authorized Specialty Diagnoses / Procedures Referred By Contac t Referred To Contact Wound Care Diagnoses Cellulitis of right lower extremity Venous insufficiency Chronic wound Alicia Membreno MD [address] [place] [address] Referral ID Status Reason Start Date Expiration Date Visits Requested Visits Authorized [id number] Authorized Specialty Services Required 09/12/[phone] Question Answer Referral Priority Within 10 days (routine) Where should this appointment be scheduled? Chad Comments Assess for: Present over 30 days Reason for Visit * Reason Comments Acute Pt here today for fo llow up from appointment on . Pt had a US done to rule out blood clot Encounter Details Date Type Department Care Team (Latest Contact Info) Description 09/12/2023 11:20 AM EDT Office Visit Family [facility] [address] [facility] [place] [address] Alicia Membreno MD [address] [place] [address] Cellulitis of right lower extremity*; Venous insufficiency; Chronic wound; Chronic rhinitis; COPD, group B, by GOLD 2017 classification (HCC) Allergies Active Allergy Reactions Criticality Noted Date Comments Pantoprazole 01/29/2022 Itchiness, rash Penicillins Hives 01/13/2003 hives documented as of this encounter (statuses as of 09/12/2023) Medications Medication Sig Dispensed Refills Start Date End Date Status Acetaminophen ER 650 MG Oral Tablet Extended Release 2 pill daily in AM & 2 pills in afternoon if needed 0 03/20/2015 Active oxygen GASIndications:Noc turnal hypoxemia,COPD, mild ([facility]) Use 2.5 L/min(Oxygen) as directed at bedtime. [...] Powder Breath Activated (umeclidinium-luisana nterol)Indications :Pulmonary hypertension ([facility]),Chondrosarco ma ([facility]),COPD, severity to be determined ([facility]) Inhale 1 Puff by mouth [...] 24 Hour (toPROL XL)Indications:Par oxysmal atrial fibrillation ([facility]) Take 0.5 Tablets by mouth daily. 45 Tablet 3 08/12/2023 Active Gabapentin 100 MG Oral Capsule (Neurontin) Take 1 tab three times daily 270 Capsule 1 09/02/2023 Active Levothyroxine Sodium 112 MCG Oral Tablet (Levoxyl) Take 1 Tablet by mouth daily first thing in the morning. (at least 30 min prior to breakfast or other meds) 90 Tablet 2 09/02/2023 Active Doxycycline Hyclate 100 MG Oral Capsule Take 1 Capsule by mouth in the morning and 1 Capsule before bedtime. Do all this for 10 days. Until gone.. 20 Capsule 0 09/10/2023 Active Entresto 24-26 MG Oral Tablet Take [...] inj 1,000 mcgIndications:B12 deficiency 1000 mcg IM [id number] 04/19/2023 03/19/2024 Active documented as of this encounter (statuses as of 09/12/2023) Active Problems Problem Noted Date Diagnosed Date [...] as of this encounter (statuses as of 09/12/2023) Resolved Problems Problem Noted Date Diagnosed Date Resolved Date Permanent atrial fibrillation 03/28/2019 10/28/2021 Chronic systolic CHF (conges tive heart failure) 03/28/2019 01/03/2021 CHF with right heart failure 03/21/2019 03/12/2022 Atherosclerosis of aorta 11/16/2018 Carpal tunnel syndrome 03/28/201302/10 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 Henriquez [facility] [place] asymptomatic en plaque cavernous sinus meningioma [...] well after 03/29 surgical repair LOC PRIM [id number] 05/09/2003 10/0 10/2016 Esotropia 01/13/2003 02/10/2017 Overview: 11/24- R sixth nerve palsy- improving MRI/MRA negative Alopecia 01/13/2003 02/10/2017 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/2002 09/20/2018 Overview: not bx proven DIVERTICULOSIS OF COLON 06/16/200202/22 Menopause 06/16/2002 10/23/2021 Abnormal weight gain 06/16/2002 017 Other ulcerative colitis with rectal bleeding 03/12/2022 documented as of this encounter (statuses as of 09/12/2023) Immunizations Name Administration Dates Next Due COVID-19 [...] on file documented as of this encounter Last Filed Vital Signs Vital Sign Reading Time Taken Comments Blood Pressure 108/64 09/12/2023 11:17 AM EDT Pulse 54 09/12/2023 11:17 AM EDT Temperature 36.4 C (97.5 F) 09/12/2023 11:17 AM E DT Respiratory Rate 16 09/12/2023 11:17 AM EDT Oxygen Saturation 99% 09/12/2023 11:17 AM EDT Inhaled Oxygen Concentration - - Weight 61.3 kg (135 lb 3.2 oz) 09/12/2023 11:17 AM EDT Height - - Body Mass Index 20.56 01/21/2023 10:04 AM EDT documented in this encounter Patient Instructions * Patient Instructions* Alicia Membreno MD - 09/12/2023 11:33 AM EDT Compression stockings everyday Lasix 20 mg daily and half banana And fu with PCP for kidney function , blood test F/u wound clinic Floarturo zyrtec documented in this encounter Progress Notes * Alicia Membreno MD - 09/12/2023 11:31 AM EDT Images from the original note were not included. Subjective Nereida Stephen is a 83 year old female. Chief Complaint Patient presents with Acute Pt here today for follow up from appointment on . 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 B12 deficiency E53.8 Meningioma ([facility]) D32.9 Right internal carotid occlusion I65.21 Paroxysmal atrial fibrillation ([facility]) I48.0 Crohn's disease of large intestine without complication ([facility]) K50.10 Idiopathic peripheral neuropathy G60.9 COPD, group B, by GOLD 2017 classification ([facility]) J44.9 Pulmonary hypertension ([facility]) I27.20 Stenosis of prosthetic aortic valve T82.857A Spinal stenosis of lumbar region without neurogenic claudication M48.061 Venous insufficiency I87.2 Chronic rhinitis J31.0 Current Outpatient Medications Medication Sig Dispense Refill [...] 3 days/week until leg edema improves) 30 [id number] Metoprolol Succinate ER 25 MG Oral Tablet [...] breakfast or other meds) 90 Tablet 2 Doxycycline Hyclate 100 MG Oral Capsule Take 1 Capsule by mouth in the morning and 1 Capsule beforebedtime. Do all this for 10 days. Until gone.. 20 Capsule 0 Entresto 24-26 MG Oral Tablet Take 1 Tablet by mouth in the morning and 1 Tablet before bedtime. Fluticasone Propionate 50 MCG/ACT Nasal Suspension (Flonase) Administer 2 Sprays into each nostril in the morning. 16 g 5 Current Facility-Administered Medications Medication Dose Route Frequency Provider Last Rate Last Admin albuterol sulfate (PROVENTIL) (2.5 MG/3ML) 0.083% inhalation solution 2.5 mg 2.5 mg Nebulizer PRN Kelsey Bowles, 2.5 mg at 11/12/21 1153 vitamin b-12 (Cyanocobalamin) inj 1,000 mcg 1,000 mcg Intramuscular Q4 Weeks Yahir Collado PA-C 1,000 mcg at 05/29/23 1022 Past Medical History: Diagnosis Date Aortic valve [...] region without neurogenic claudication 03/19/2006 Past Surgical History: Procedure Laterality Date CARDIAC CATH-CARDIOLOGY ONLY 04/08/2010 CATHETERIZE LEFT HEART THRU SKIN 04/08/2010 LEFT HEART CATH, PERCUTANEOUS performed by YOLIS CHEATHAM at [facility] COLONOSCOPY 02/26/2005 Colonoscopy done at [facility] by Dr. Hilliard COLONOSCOPY THRU STOMA, W/BIOPSY 02/2009 chronic colitis with moderate activity, sm bowel ileitis, f/u in office COLONOSCOPY W/ BIOPSY (RECTUM) 11/15/2007 bx's taken COLONOSCOPY W/ BIOPSY (RECTUM) 02/14/2011 inflammation in colon- await path COLONOSCOPY, DIAGNOSTIC (RECTUM) 09/12/2014 normal bx, repeat 2 yrs/COLONOSCOPY FLEXIBLE PROXIMAL DIAGNOSTIC performed by Eduar Beckham MD at [facility]COPY [facility] COLONOSCOPY, DIAGNOSTIC (RECTUM) 09/24/2018 diverticulosis, repeat 3 yrs / [facility] COLONOSCOPY, DIAGNOSTIC (RECTUM) 12/25/2021 chronic active colitis / INPT [facility] EGD, FLEXIBLE, DIAGNOSTIC 09/24/2018 gastritis / [facility] EGD, FLEXIBLE, DIAGNOSTIC 12/25/2021 sm hiatal hernia / INPT [facility] INFORMATION 04/17/2010 [employer] Aortic Valve Model# 3000TFX-21 MISCELLANEOUS ORDER ([facility] ONLY) 05/2104 Gamma Knife for meningioma at [facility] MISCELLANEOUS ORDER ([facility] ONLY) N/A 05/04/2017 redo of chest chondrosarcoma at [facility] NECK/CHEST DEEP TUMOR REMOVAL, UNDER 5 CM 04/17/2010 EXCISION TUMOR DEEP NECK THORAX performed by DEVORAH CARSON at [place] [facility] NONE 07/2004 thyroidectomy in [place] PARTIAL COLECTOMY W/ANASTOMOSIS 10/2001 Colectomy Partial rectosigmoid resection with RUTH/BSO and incidental appy REMOVAL OF APPENDIX 10/2001 Appendectomy REMOVAL OF OVARY/OVIDUCT(S) 10/2001 Ovary/Tube(S) Removal REMOVAL OF THYROID GLAND 2004 Thyroidectomy REPAIR INITIAL INCISIONAL HERNIA 04/14/2005 [facility] Surgi-Center Dr. Hilliard REPAIR INITIAL INCISIONAL OR VENTRAL HERNIA; REDUCIBLE 01/08/2004 Lower abdominal hernia repair with mesh [facility] SurgiCenter Dr. Hilliard REPLACEMENT AORTIC VALVE, BYPASS WITH PROSTHETIC VALVE 04/17/2010 REPLACEMENT AORTIC VALVE performed by SAIDA PARKINSON at [place] [facility] TOTAL HYSTERECTOMY 10/2001 RUTH (Total Abdominal Hysterectomy) Review of patient's allergies indicates: Allergen Reactions Pantoprazole Itchiness, rash Penicillins Hives hives Family History Problem Relation Age of Onset Heart Disorder Mother (dec) Lung Disorder Mother Heart Disorder Father (dec) Heart disease Brother Other (Paraplegia due to an accident) Brother Cancer Aunt (Unspecified) paternal;stomach Cancer Aunt (Unspecified) maternal half sister; breast Family Status Relation Status Mo at age 78 emphysema and heart trouble Fa at age 88 old age Bro AUNT (Not Specified) AUNT (Not Specified) Social History Socioeconomic History Marital status: Spouse name: Not on file Number of children: 3 Years of education: Not on file Highest education level: Not on file Occupational History 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 Negative for activity change, appetite change, chills, diaphoresis, fever and unexpected weight change. HENT: Positive for congestion, postnasal drip and rhinorrhea. Respiratory: Positive for cough (occ). Negative for chest tightness, shortness of breath and wheezing. Cardiovascular: Positive for leg swelling (chronic , worse on rt lower leg). Negative for chest pain and palpitations. Endocrine: Negative. Musculoskeletal: Positive for arthralgias. Skin: Positive for color change and wound. Allergic/Immunologic: Positive for environmental allergies. Neurological: Negative for dizziness and light-headedness. Psychiatric/Behavioral: Negative for agitation and behavioral problems. Objective BP 108/64 | Pulse 54 | Temp 36.4 C (97.5 F) (Tympanic) | Resp 16 | Wt 61.3 kg (135 lb 3.2 oz) |SpO2 99% | BMI 20.56 kg/m | BSA 1.71 m Physical Exam Constitutional: General: She is not in acute distress. Appearance: Normal appearance. She is not ill-appearing, toxic-appearing or diaphoretic. HENT: Head: Normocephalic and atraumatic. Nose: Congestion and rhinorrhea present. Eyes: Extraocular Movements: Extraocular movements intact. Musculoskeletal: General: Tenderness present. Right lower leg: Edema present. Left lower leg: Edema present. Legs: Skin: Findings: Erythema and lesion present. Neurological: General: No focal deficit present. Mental Status: She is alert and oriented to person, place, and time. Psychiatric: Behavior: Behavior normal. ASSESSMENT/PLAN: Cellulitis of right lower extremity (Primary) - WOUND CARE REFERRAL OP Venous insufficiency - WOUND CARE REFERRAL OP Chronic wound - WOUND CARE REFERRAL OP Chronic rhinitis COPD, group B, by GOLD 2017 classification ([facility]) Other orders - Fluticasone Propionate 50 MCG/ACT Nasal Suspension (Flonase); Administer 2 Sprays into each nostril in the morning. Check-out note: Woudn clinic referral Patient Instructions Compression stockings everyday Lasix 20 mg daily and half banana And fu with PCP for kidney function , blood test F/u wound clinic princess Rosenberg MD documented in this encounter Nursing Notes * Edie Hernández LPN - 09/12/2023 11:14 AM EDT Chief Complaint Patient presents with Acute Pt here today for follow up from appointment on . Pt had a US done to rule out blood clot documented in this encounter Plan of Treatment Upcoming Encounters Date Type Department Care Team (Late st Contact Info) Description 11/09/2023 11:20 AM EDT Office Visit General Internal Medicine [facility] [address] [facility] [place] [address] Leyda Ahn MD [address] [facility] [place] [address] 05/03/2024 9:00 AM EST Office Visit Neurology [facility] [address] [facility] [place] [address] Ellen Carias PA-C [address] [place] [phone] Scheduled Procedures Name Priority Associated Diagnoses Date/Ti me COLONOSCOPY FLEXIBLE PROXIMA L DIAGNOSTIC Recall IBD (inflammatory bowel disease) Scheduled Referrals Name Type Priority Associated Diagnoses Orde r Schedule WOUND CARE REFERRAL OP Referral Within 10 days (routine) Cellulitis of right lower extremity Venous insufficiency Chronic wound Ordered: 09/12/2023 Health Maintenance Due Date Last Done Comments Zoster Vaccines (2 of 3) 11/09/2014 09/14/2014, 08/24 COVID-19 Vaccine ( season) 2023 03/18/2022, 05/13/2021, 08/30/2020, Additional history exists DXA Scan 08/10/2023 08/09/2020, 07/23, 11/07/2009, Additional history exists COLONOSCOPY-EVERY 2 YRS [...] this encounter Medical Devices Implanted Type Area Space Studies Faculty Member Device Identifier Shelf Expiration Date Model / Serial / Lot Valve Ce Aortic 21mm 3000tfx - [id number] Implanted:Qty : 1 on 04/17/2010 [place] [facility] Tissue - Non Human N/A: Chest [employer] ELISABETH 04/17/2010 3000TFX-2 [id number] / Patch Pericard 8x14cm [id number] - [id number] Implanted:Qty : 1 on 04/17/2010 at [place] [facility] Tissue - Non Human N/A: Chest [employer] 12/05/2014 PC-0814N / / [id number] Sut Steel 6 M654g - [id number] Implanted:Qty : 4 on 04/17/2010 at [place] [facility] N/A: Chest DO NOT USE 06/17/2014 M654G / / [id number] documented as of this encounter Visit Diagnoses Diagnosis Cellulitis of right lower extremity- Primary Cellulitis and abscess of leg, except foot Venous insufficiency Unspecified venous (peripheral) insufficiency Chronic wound Chronic rhinitis COPD, group B, by GOLD 2017 classification (HCC) documented in this encounter Advance Directives Documents on File Type Date Recorded Patient Display Coordinator Expl anation Advance Directives and Living Will 11/01/2008 LIVING WILL Latest Code Status on File Code Status Date Activated Date Inactivated Comments Full Code 04/17/2010 12:37 PM 04/22/2010 9:47 PM Th is order reflects the patients wishes and were consensually agreed upon. Care Teams Assistant Produce Manager Relationship Specialty Start Date End Date Maxwell Sellers MD [address] [place], [place] [id number] PCP - General Internal Medicine 01/03/21 documented as of this encounter"
--- OUTSIDE RECORDS SUMMARY | 2023-11-11 05:50 | External Medical Summary | Summary of Care ---
Author Name Unknown Organization [facility] Address [address] [place] [address] Phone [phone] Care Team Providers Care Theatre Instructor Name Role Phone Maxwell Sellers MD Primary Care Provider + Reason for Visit * Reason Comments Edema Swelling in the righ t let (calf) looks like a lot of fluid there. Possibly infected. Swelling has been going on for about a week and the infection (discoloration) last night. Patient also reports an itch over the past couple of days. Encounter Details Date Type Department Care Team (Latest Contact Info) Description 09/10/2023 3:40 PM EDT Office Visit Family Practice [facility] [address] [facility] [address] Sunitha Dill PA-C [address] [facility] [address] Cellulitis of right leg*; Right leg swelling; Localized edema; Pulmonary hypertension (HCC); COPD, group B, by GOLD 2017 classification ([facility]) Allergies Active Allergy Reactions Criticality Noted Date Comments Pantoprazole 01/29/2022 Itchiness, rash Penicillins Hives 01/13/2003 hives documented as of this encounter (statuses as of 09/10/2023) Medications Medication Sig Dispensed Refills Start Date End Date Status Acetaminophen ER 650 MG Oral Tablet Extended Release 2 pill daily in AM & 2 pills in afternoon if needed 0 5 Active oxygen GASIndications:No cturnal hypoxemia,COPD, mild (HCC) Use 2.5 L/min(Oxygen) as directed at bedtime. 1 Each 1 9 Active Albuterol Sulfate HFA 108 (90 Base) MCG/ACT Inhalation Aerosol SolutionIndicatio ns:COPD, mild (HCC) Inhale by mouth 2 Puffs every 4 hours as needed for Cough, Shortness of Breath or Wheezing. 20.1 g 3 2 Active Mesalamine 1.2 GM Oral Tablet Delayed Release (Lialda) Take 2 Tablets by mouth in the morning. 180 Tablet 3 3 Active Polyethylene Glycol 3350 17 GM/SCOOP Oral Powder Take 17 g by mouth as needed. 0 Active Aspirin 81 MG Oral Tablet Delayed Release Take 1 Tablet by mouth in the morning. 0 Active oxygen IN GAS 2L/min(Oxygen) continuous via nasal cannula. 1 Each 0 3 Active Anoro Ellipta 62.5-25 MCG/ACT Inhalation Aerosol Powder Breath Activated (umeclidinium-dale anterol)Indicatio ns:Pulmonary hypertension (HCC),Chondrosarc arline (HCC),COPD, severity to be determined (HCC) Inhale 1 Puff by mouth in the morning. 180 Blister Dosing Unit 3 3 Active Additional Information Patient not taking.Reported on 09/10/2023 Furosemide 20 MG Oral Tablet (Lasix) 1 [...] other meds) 90 Tablet 2 4 Active Doxycycline Hyclate 100 MG Oral Capsule Take 1 Capsule by mouth in the morning and 1 Capsule before bedtime. Do all this for 10 days. Until gone.. 20 Capsule 0 4 09/20/19 24 Active Doxycycline Hyclate 100 MG Oral CapsuleIndication s:Cellulitis of lower extremity, unspecified laterality,Abrasi on of skin TAKE 1 CAPSULE BY MOUTH IN THE MORNING AND 1 CAPSULE BEFORE BEDTIME. DO ALL THIS FOR 10 DAYS. UNTIL GONE.. 20 Capsule 0 4 09/10/19 24 Discontinued Hospital, Clinic, or Other Facility Administered Medication Ordered Dose Route Frequency Start Date End Date Status albuterol sulfate (PROVENTIL) (2.5 MG/3ML) 0.083% inhalation solution 2.5 mgIndications:COPD, severity to be determined (HCC),Chondrosarcoma (HCC),Pulmonary hypertension (HCC) 2.5 mg NEBULIZER PRN 01/07/2019 Active vitamin b-12 (Cyanocobalamin) inj 1,000 mcgIndications:B12 deficiency 1000 mcg IM [id number] 04/19/2023 03/19/2024 Active cefTRIAXone (Rocephin) inj 1 gIndications:Cellulitis of right leg 1 g IM ONCE 09/10/2023 09/10/2023 Ended documented as of this encounter (statuses as of 09/10/2023) Active Problems Problem Noted Date Diagnosed Date [...] as of this encounter (statuses as of 09/10/2023) Resolved Problems Problem Noted Date Diagnosed Date Resolved Date Permanent atrial fibrillation 03/28/2019 10/28/2021 Chronic systolic CHF (conges tive heart failure) 03/28/2019 01/03/2021 CHF with right heart failure 03/21/2019 03/12/2022 Atherosclerosis of aorta 11/16/2018 Carpal tunnel syndrome 03/28/201302/10 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 Henriquez [facility] N/S asymptomatic en plaque cavernous sinus meningioma [...] well after 03/29 surgical repair LOC PRIM [id number] 05/09/200310/2016 Esotropia 01/13/2003 02/10/2017 Overview: 7/03- R sixth nerve palsy- improving MRI/MRA negative Alopecia 01/13/2003 02/10/2017 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/2002 09/20/2018 Overview: not bx proven DIVERTICULOSIS OF COLON 06/16/200202/22 Menopause 06/16/2002 10/23/2021 Abnormal weight gain 06/16/2002 017 Other ulcerative colitis with rectal bleeding 03/12/2022 documented as of this encounter (statuses as of 09/10/2023) Immunizations Name Administration Dates Next Due COVID-19 mRNA, LNP-s, No Pre serve, 2-Dose Series (Moderna) 08/30/2020,07/25/2020 COVID-19, mRNA, LNP-s, PF, B ooster, 100mcg/0.5mg (Moderna) 05/13/2021 Covid-19, Mrna, Lnp-s, Pf, B ivalent, 30 Mcg, IM, 12 yrs and above (Ecociclus) 03/18/2022 PPD 02/14/2011 Pneumococcal Conjugate Vacc, 13 [...] Sign Reading Time Taken Comments Blood Pressure 110/60 09/10/2023 4:08 PM EDT Pulse 98 09/10/2023 4:08 PM EDT Temperature 36.7 C (98 F) 09/10/2023 4:08 PM EDT Respiratory Rate 16 09/10/2023 4:08 PM EDT Oxygen Saturation 96% 09/10/2023 4:08 PM EDT Inhaled Oxygen Concentration - - Weight 61.2 kg (135 lb) 09/10/2023 4:08 PM EDT Height - - Body Mass Index 20.53 01/21/2023 10:04 AM EDT documented in this encounter Progress Notes * Sunitha Dill PA-C - 09/10/2023 4:15 PM EDT Images from the original note were not included. History of Present Illness Nereida Stephen is a 83 year old female that presents for Edema (Swelling in the right let (calf) looks like a lot of fluid there. Possibly infected. Swelling has been going on for about a week and theinfection (discoloration) last night. Patient also reports an itch over the past couple of days.) Patient is an 83 year old female who presents with right lower extremity redness and swelling whichstarted about a week ago. Her leg got cut by printer. Has taking showers . No draing or bleeding. Physical Exam Vitals: 09/10/23 1608 Temp: 36.7 C (98 F) Pulse: 98 Resp: 16 SpO2: 96% BP: 110/60 BP Readings from Last 3 Encounters: 09/10/23 110/60 05/15/23 95/53 05/05/23 108/62 Wt Readings from Last 3 Encounters: 09/10/23 61.2 kg (135 lb) 05/15/23 58.2 kg (128 lb 6.4 oz) 05/05/23 56.6 kg (124 lb 12.8 oz) General: alert, healthy, no distress, well nourished, well developed, and cooperative Head: Normocephalic, No masses, lesions, tenderness or abnormalities Eye Exam: PERRLA, extraocular movements intact, conjunctiva are pink and non- injected, sclera clear Lungs: chest symmetric with normal AP diameter, no chest deformities noted, normal respiratory rateand rhythm, diaphragmatic excursion normal Extremities: less than 2 second capillary refill, no joint deformities, effusion, or inflammation, no clubbing, no cyanosis, positive edema and erythema of right lateral ruano Skin: skin color, texture, turgor are normal, area of cellulitis on right lateral ruano. I have reviewed the following results: None Assessment and Plan Cellulitis of right leg (Primary) - cefTRIAXone (Rocephin) inj 1 g Right leg swelling - VASC DUPLEX VENOUS LE UNILAT; Future; Expected date: 09/11/2023 Localized edema - VASC DUPLEX VENOUS LE UNILAT; Future; Expected date: 09/11/2023 Pulmonary hypertension (HCC) COPD, group B, by GOLD 2017 classification (HCC) Other orders - Doxycycline Hyclate 100 MG Oral Capsule; Take 1 Capsule by mouth in the morning and 1 Capsule before bedtime. Do all this for 10 days. Until gone.. Follow-up: Return in about 2 days (around 09/12/2023). | Check-out note: Schedule doppler Wrap-Up Time: I spent a total of 20-29 minutes (exact time 27 mins) on the date of service in preparation, delivery, and documentation of the care provided to Nereida Stephen excluding any time spent in the performance of separately billed services. documented in this encounter Nursing Notes * Ghada Galicia LPN - 09/10/2023 4:47 PM EDT Pre-Administration Time Out Procedure Performed: Yes Patient Identified (Ask Name/Date of ): Yes Does the patient have a fever greater than 101 degrees today? No Patient allergic to latex? No Has the patient ever fainted after receiving an injection? No VFC Stock: No Injection(s) verified: Yes, Injection Name: Rocephin 1 gram Verified Side and Site: Yes Verified Shot(s) with Parent(s)/Patient: Yes * Lobito Corona MED ASSIST - 09/10/2023 4:01 PM EDT The patient has been properly identified by confirmation of name and date of . Chief Complaint Patient presents with Edema Swelling in the right let (calf) looks like a lot of fluid there. Possibly infected. Swelling has been going on for about a week and the infection (discoloration) last night. documented in this encounter Plan of Treatment Upcoming Encounters Date Type Department Care Team (Late st Contact Info) Description 09/11/2023 1:00 PM EDT Imaging Vascular Lab, [facility] 2nd Floor, [place] [address] [facility] [place] [address] 09/12/2023 11:20 AM EDT Office Visit Family Practice [facility] [address] [address] Alic[facility] [address] [facility] [address] 11/09/2023 11:20 AM EDT Office Visit General Internal Medicine [facility] [address] [facility] [address] Leyda Ahn MD [address] [facility] [place] [address] 05/03/2024 9:00 AM EST Office Visit Neurology [facility] [address] [facility] [place] [address] Ellen Carias PA-C [address] [place] [address] Scheduled Orders Name Type Priority Associated Diagnoses Orde r Schedule VASC DUPLEX VENOUS LE UNILAT Medical Imaging STAT Right leg swelling Localized edema Expected: 09/11/2023, Expires: 10/09/2024 Scheduled Procedures Name Priority Associated Diagnoses Date/Ti [...] ASSESSMENT COMPLETED IN PAST YEAR FOR COPD 09/09/2024 09/10/2023 DTaP,Tdap,and Td Vaccines (3 - Td or [...] this encounter Medical Devices Implanted Type Area Race Engine Builder Device Identifier Shelf Expiration Date Model / Serial / Lot Valve Ce Aortic 21mm [id number] - [id number] Implanted:Qty : 1 on 04/17/2010 at OR [facility] Tissue - Non Human N/A: Chest [employer] 04/17/2010 [id number] / Patch Pericard 8x14cm [id number] - [id number] Implanted:Qty : 1 on 04/17/2010 at [facility] Tissue - Non Human N/A: Chest [employer] 12/05/2014 [id number] / / [id number] Sut Steel 6 [id number] - [id number] Implanted:Qty : 4 on 04/17/2010 at [facility] N/A: Chest DO NOT USE 06/17/2014 [id number] / / [id number] documented as of this encounter Visit Diagnoses Diagnosis Cellulitis of right leg- Primary Cellulitis and abscess of leg, except foot Right leg swelling Localized edema Edema Pulmonary hypertension (HCC) Other chronic pulmonary heart diseases COPD, group B, by GOLD 2017 classification (HCC) documented in this encounter Administered Medications Inactive Administered Medications - up to 3 most recent administrations Medication Order MAR Action Action Date Dose Rate Site cefTRIAXone (Rocephin) inj 1 g 1 g, Intramuscular, ONCE, On Starla 09/10/23 at 1700, For 1 dose Given 09/10/2023 4:49 PM EDT 1 g Ventrogluteal Right documented in this encounter Advance Directives Documents on File Type Date Recorded Patient Clinical Biochemist Expl anation Advance Directives and Living Will 11/01/2008 LIVING WILL Latest Code Status on File Code Status Date Activated Date Inactivated Comments Full Code 04/17/2010 12:37 PM 04/22/2010 9:47 PM Th is order reflects the patients wishes and were consensually agreed upon. Care Teams Theatre Instructor Relationship Specialty Start Date End Date Maxwell Sellers MD [address] [place] [address] PCP - General Internal Medicine 01/03/21 documented as of this encounter"
--- OUTSIDE RECORDS SUMMARY | 2023-11-11 05:50 | External Medical Summary | Summary of Care ---
Author Name Unknown Organization [facility] Address [address] [place] [address] Phone [phone] Care Team Providers Care Inserter Operator Name Role Phone Maxwell Sellers MD Primary Care Provider + Reason for Visit * Reason Comments NEW PATIENT RLE -- WOUND --EDEMA * Evaluate & Treat - Unlimited Visits (Within 10 days (routine)) - Authorized Specialty Diagnoses / Procedures Referred By Vinita ramirez Referred To Contact Wound Care Diagnoses Cellulitis of right lower extremity Venous insufficiency Chronic wound Alicia Membreno MD [address] [place] [address] Referral ID Status Reason Start Date Expiration Date Visits Requested Visits Authorized [id number] Authorized Specialty Services Required 09/12/[id number] Encounter Details Date Type Department Care Team (Late st Contact Info) Description 09/16/2023 8:00 AM EDT Office Visit Wound Care, [facility] [address] [place] [address] Radha Ribeiro DPM [address], [place] [id number] Delayed healing of traumatic wound*; Venous insufficiency Allergies Active Allergy Reactions Criticality Noted Date Comments Pantoprazole 01/29/2022 Itchiness, rash Penicillins Hives 01/13/2003 hives documented as of this encounter (statuses as of 09/23/2023) Medications Medication Sig Dispensed Refills Start Date [...] (HCC),Chondrosarco ma (HCC),COPD, severity to be determined (HCC) Inhale [...] the morning. 16 g 5 09/12/2023 Active Doxycycline Hyclate 100 MG Oral Capsule Take 1 Capsule by mouth in the morning and 1 Capsule before bedtime. Do all this for 10 days. Until gone.. 20 Capsule 0 09/10/2023 Hospital, Clinic, or Other Facility Administered Medication Ordered Dose Route Frequency Start Date End Date Status albuterol sulfate (PROVENTIL) (2.5 MG/3ML) 0.083% inhalation solution 2.5 mgIndications:COPD, severity to be determined (HCC),Chondrosarcoma (HCC),Pulmonary hypertension (HCC) 2.5 mg NEBULIZER PRN 01/07/2019 Active vitamin b-12 (Cyanocobalamin) inj 1,000 mcgIndications:B12 deficiency 1000 mcg IM [id number] 04/19/2023 03/19/2024 Active documented as of this encounter (statuses as of 09/23/2023) Active Problems Problem Noted Date Diagnosed Date [...] as of this encounter (statuses as of 09/23/2023) Resolved Problems Problem Noted Date Diagnosed Date Resolved Date Permanent atrial fibrillation 03/28/2019 10/28/2021 Chronic systolic CHF (conges tive heart failure) 03/28/2019 01/03/2021 CHF with right heart failure 03/21/2019 03/12/2022 Atherosclerosis of aorta 11/16/2018 Carpal tunnel syndrome 03/28/201302/10 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 Henriquez [facility] N/S asymptomatic en plaque cavernous sinus meningioma [...] well after 03/29 surgical repair LOC PRIM [id number] 05/09/2003 10/0 10/2016 Esotropia 01/13/2003 02/10/2017 Overview: 7/03- R sixth nerve palsy- improving MRI/MRA negative Alopecia 01/13/2003 02/10/2017 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/2002 09/20/2018 Overview: not bx proven DIVERTICULOSIS OF COLON 06/16/200202/22 Menopause 06/16/2002 10/23/2021 Abnormal weight gain 06/16/2002 017 Other ulcerative colitis with rectal bleeding 03/12/2022 documented as of this encounter (statuses as of 09/23/2023) Immunizations Name Administration Dates Next Due COVID-19 mRNA, LNP-s, No Pre serve, 2-Dose Series (Moderna) 08/30/2020,07/25/2020 COVID-19, mRNA, LNP-s, PF, B ooster, 100mcg/0.5mg (Moderna) 05/13/2021 Covid-19, Mrna, Lnp-s, Pf, B ivalent, 30 Mcg, IM, 12 yrs and above ([employer]) 03/18/2022 PPD 02/14/2011 Pneumococcal Conjugate Vacc, 13 [...] on file documented as of this encounter Patient Instructions * Patient Instructions* Sailaja Parisi RN - 09/16/2023 8:48 AM EDT Compression Therapy Education: Any questions, redness or swelling around the wound and development of a temperature of 101F or greater, please contact the [facility]. Please check your toes frequently. If they become blue, purple, pale, cool, numb, and/or tingling elevate your leg higher than your heart for one hour. If you have no relief of the symptoms, cut the entire wrap off and call the [facility], . Keep the wrap dry. If the wrap slides down or bunches at the ankle, call [facility]. Elevate legs above heart for 30 minutes 2-3 times a day. documented in this encounter Progress Notes * Radha Ribeiro DPM - 09/16/2023 9:03 AM EDT Images from the original note were not included. Initial Examination Patient: Nereida Stephen Allergies: Pantoprazole and Penicillins Chief Complaint: Chief Complaint Patient presents with NEW PATIENT RLE -- WOUND --EDEMA History of Present Illness Nereida Stephen is a 83 year old female here today for RIGHT lower leg wound. Pt reports with Daughter who provides most of the history. Wound present at least since May. Currently being treated for cellulitis. Does not wear compression although has been told previously she needed to wear compression. Currently on Lasix. Constitutional There were no vitals taken for [...] performed by YOLIS CHEATHAM at [facility] COLONOSCOPY 02/26/2005 Colonoscopy done at [facility] by Dr. Hilliard COLONOSCOPY THRU STOMA, W/BIOPSY 02/2009 chronic colitis with moderate activity, sm bowel ileitis, f/u in office COLONOSCOPY W/ BIOPSY (RECTUM) 11/15/2007 bx's taken COLONOSCOPY W/ BIOPSY (RECTUM) 02/14/2011 inflammation in colon- await path COLONOSCOPY, DIAGNOSTIC (RECTUM) 09/12/2014 normal bx, repeat 2 yrs/COLONOSCOPY FLEXIBLE PROXIMAL DIAGNOSTIC performed by Eduar Beckham MD at ENDOSCOPY [facility] COLONOSCOPY, DIAGNOSTIC (RECTUM) 09/24/2018 diverticulosis, repeat 3 yrs / [facility] COLONOSCOPY, DIAGNOSTIC (RECTUM) 12/25/2021 chronic active colitis / INPT [facility] EGD, FLEXIBLE, DIAGNOSTIC 09/24/2018 gastritis / [facility] EGD, FLEXIBLE, DIAGNOSTIC 12/25/2021 sm hiatal hernia / INPT [facility] INFORMATION 04/17/2010 [employer] Aortic Valve Model# 3000TFX-21 MISCELLANEOUS ORDER ([facility] ONLY) 05/2104 Gamma Knife for meningioma at [facility] MISCELLANEOUS ORDER ([facility] ONLY) N/A 05/04/2017 redo of chest chondrosarcoma at [facility] NECK/CHEST DEEP TUMOR REMOVAL, UNDER 5 CM 04/17/2010 EXCISION TUMOR DEEP NECK THORAX performed by DEVORAH CARSON at OR [facility] NONE 07/2004 thyroidectomy in [place] PARTIAL COLECTOMY W/ANASTOMOSIS 10/2001 Colectomy Partial rectosigmoid resection with RUTH/BSO and incidental appy REMOVAL OF APPENDIX 10/2001 Appendectomy REMOVAL OF OVARY/OVIDUCT(S) 10/2001 Ovary/Tube(S) Removal REMOVAL OF THYROID GLAND 2004 Thyroidectomy REPAIR INITIAL INCISIONAL HERNIA 04/14/2005 [facility] Surgi-Center Dr. Hilliard REPAIR INITIAL INCISIONAL OR VENTRAL HERNIA; REDUCIBLE 01/08/2004 Lower abdominal hernia repair with mesh [facility] SurgiCenter Dr. 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 Tobacco Use Smoking status: Former Current [...] 3 days/week until leg edema improves) 30 [id number] Metoprolol Succinate ER 25 MG Oral Tablet [...] Skin Integrity Anterior;Lower;Right Leg (Active) Clinical Image 09/16/23823 Wound Length (cm) 2.5 cm 09/16/23823 Wound Width (cm) 1.2 cm 09/16/23823 Wound Depth (cm) 0.1 cm 09/16/23823 Yellow Fibrinous Slough (%) none 09/16/23823 Granulation Tissue (%) 100% 09/16/23823 Granulation Tissue Color red 09/16/23823 Necrotic Tissue (%) none 09/16/23823 Drainage serosanguinous, moderate 09/16/23823 Odor (after cleansing wound) No 09/16/23823 Eleanor-Wound (Surrounding Skin) Edema;Erythematous 09/16/23823 Wound Surface Area (cm^2) 3 cm^2 09/16/23823 Wound Volume (cm^3) 0.3 cm^3 09/16/23823 Wound Profile Wound Type: Trauma (23) Wound Location: RIGHT lower leg Pressure Wound: N/A Diabetic Wound/Lower Extremity: N/A All Others: Full Thickness Wound/Ulcer Debridement No Debridement Performed Assessment/Plan: (T14.8XXD) Delayed healing of traumatic wound (primary encounter diagnosis) (I87.2) Venous insufficiency - Pt seen and evaluated - Will start with light compression (Aquacel and coban 2 lite) - Will need changed daily - Delays in wound healing secondary to edema which hopefully the compression wrap will aid - Pt instructed to keep legs elevated and also be compliant with medications - Follow up in 1 week - Call with any questions or concerns. Radha Ribeiro DPM 09/16/2023 documented in this encounter Nursing Notes * Breonna Ferris LPN - 09/16/2023 8:21 AM EDT Assisted to sit safely on exam seating - Daughter is by her side.Nereida is aware to not rise unassisted for her safety. RLE - WOUND present for uncertain time -- edema to RLE is currently on Antx for tx. Wound washed with soap and water towel dried tolerated well. Photos and measurements taken. Will alert provider of ready for care and provide care as per order. documented in this encounter Plan of Treatment Upcoming Encounters Date Type Department Care Team (Late st Contact Info) Description 09/30/2023 8:20 AM EDT Office Visit Wound Care, [address] [address] Radha Ribeiro DPM [address] [place] [address] 11/09/2023 11:20 AM EDT Office Visit General Internal Medicine [facility] [place] [address] [place] [address] Leyda Ahn MD [address] [facility] [address] [place] [address] 05/03/2024 9:00 AM EST Office Visit Neurology [facility] [place] [address] [facility] [place] [address] Ellen Carias PA-C [address] [address] Scheduled Procedures Name Priority Associated Diagnoses Date/Ti [...] of 3) 11/09/2014 09/14/2014, 08/24 COVID-19 Vaccine (2022- season) 2023 03/18/2022, 05/13/2021, 08/30/2020, Additional history exists DXA Scan 08/10/2023 08/09/2020, 07/23, 11/07/2009, Additional history exists Colonoscopy 12/26/2023 12/25/2021, 0807/2021, 09/24/2018, Additional history exists Depression Screening 05/15/2024 [...] this encounter Medical Devices Implanted Type Area Splicing Supervisor Device Identifier Shelf Expiration Date Model / Serial / Lot Valve Ce Aortic 21mm 3000tfx - [id number] Implanted:Qty : 1 on 04/17/2010 at OR [facility] Tissue - Non Human N/A: Chest [employer] ELISABETH 04/17/2010 3000TFX-2 / [id number] / Patch Pericard 8x14cm [id number] - [id number] Implanted:Qty : 1 on 04/17/2010 at OR [facility] Tissue - Non Human N/A: Chest [employer] 12/05/2014 -0814N / / [id number] Sut Steel 6 M654g - [id number] Implanted:Qty : 4 on 04/17/2010 at OR [facility] N/A: Chest DO NOT USE 06/17/2014 M654G / / [id number] documented as of this encounter Visit Diagnoses Diagnosis Delayed healing of traumatic wound- Primary Venous insufficiency Unspecified venous (peripheral) insufficiency documented in this encounter Advance Directives Documents on File Type Date Recorded Patient [employer] Rolls Expl anation Advance Directives and Living Will 11/01/2008 LIVING WILL Latest Code Status on File Code Status Date Activated Date Inactivated Comments Full Code 04/17/2010 12:37 PM 04/22/2010 9:47 PM Th is order reflects the patients wishes and were consensually agreed upon. Care Teams Inserter Operator Relationship Specialty Start Date End Date Maxwell Sellers MD [address] [place] [address] PCP - General Internal Medicine 01/03/21 documented as of this encounter
--- OUTSIDE RECORDS SUMMARY | 2023-11-11 05:50 | External Medical Summary | Summary of Care ---
Author Name Unknown Organization [facility] Address [address] [place] [address] Phone [phone] Care Team Providers Care Environmental Services Project Manager Name Role Phone Maxwell Willoughby MD Primary Care Provider + Reason for Visit * Reason Onset Date Comments Medication Refill 08/31/2023 Encounter Details Date Type Department Care Team (Late st Contact Info) Description 08/31/2023 Refill General Internal Medicine [facility] [address] [place] [address] Maxwell Willoughby MD [address] [facility] [place] [address] Allergies Active Allergy Reactions Criticality Noted Date [...] mouth daily. 45 Tablet 3 08/12/2023 Active Doxycycline Hyclate 100 MG Oral CapsuleIndication s:Cellulitis of lower extremity, unspecified laterality,Abrasi on of skin TAKE 1 CAPSULE BY MOUTH IN THE MORNING AND 1 CAPSULE BEFORE BEDTIME. DO ALL THIS FOR 10 DAYS. UNTIL GONE.. 20 Capsule 0 08/31/2023 4 Active Gabapentin 100 MG Oral Capsule (Neurontin) Take 1 tab three times daily 270 Capsule 1 09/02/2023 Active Levothyroxine Sodium 112 MCG Oral Tablet (Levoxyl) Take 1 Tablet by mouth daily first thing in the morning. (at least 30 min prior to breakfast or other meds) 90 Tablet 2 09/02/2023 Active Levothyroxine Sodium 112 MCG Oral Tablet (Levoxyl) Take 1 Tablet by mouth daily first thing in the morning. 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 Henriquez [facility] N/S asymptomatic en plaque cavernous sinus meningioma [...] well after 03/29 surgical repair LOC PRIM [id number] 05/09/2003 1010/2016 Esotropia 01/13/2003 02/10/2017 Overview: /03- [...] encounter Miscellaneous Notes * Telephone Encounter - Ina Torres [facility] - 09/02/2023 10:52 AM EDTSigned Prescriptions: Disp Refills Levothyroxine Sodium 112 MCG Oral Tablet (*90 Tab*2 Sig: Take 1 Tablet by mouth daily first thing in the morning. (at least 30 min prior to breakfast or other meds)Authorizing Provider: MAXWELL WILLOUGHBY User: INA TORRES documented in this encounter Plan of Treatment Upcoming Encounters Date Type Department Care Team (Late st Contact Info) Description 11/09/2023 11:20 AM EDT Office Visit General Internal Medicine [facility] [place] [address] [place] [address] Leyda Ahn MD [address] [address] [address] 05/03/2024 9:00 AM EST Office [facility] [place] [address] [place] [address] Ellen Carias PA-C [address] [address] Scheduled Procedures Name Priority Associated Diagnoses Date/Ti [...] this encounter Medical Devices Implanted Type Area Dial Maker Device Identifier Shelf Expiration Date Model / Serial / Lot Valve Ce Aortic 21mm 3000tfx - [id number] Implanted:Qty : 1 on 04/17/2010 at OR [facility] Tissue - Non Human N/A: Chest [employer]Y [employer] ELISABETH 04/17/2010 3000TFX-2 [id number] / Patch Pericard 8x14cm [id number] - [id number] Implanted:Qty : 1 on 04/17/2010 at OR [facility] Tissue - Non Human N/A: Chest [employer] 12/05/2014 -0814N / / [id number] Sut Steel 6 M654g - [id number] Implanted:Qty : 4 on 04/17/2010 at OR [facility] N/A: Chest DO NOT USE 06/17/2014 M654G / / [id number] documented as of this encounter Advance Directives Documents on File Type Date Recorded Patient Humidifier Operator Expl anation Advance Directives and Living Will 11/01/2008 LIVING WILL Latest Code Status on File Code Status Date Activated Date Inactivated Comments Full Code 04/17/2010 12:37 PM 04/22/2010 9:47 PM Th is order reflects the patients wishes and were consensually agreed upon. Care Teams Environmental Services Project Manager Relationship Specialty Start Date End Date Maxwell Willoughby MD [address] [facility] [place] [address] PCP - General Internal Medicine 01/03/21 documented as of this encounter
--- OUTSIDE RECORDS SUMMARY | 2023-11-11 05:50 | External Medical Summary | Summary of Care ---
Author Name Unknown Organization [facility] Address [address] [place] [address] Phone [phone] Care Team Providers Care Belt Molder Name Role Phone Maxwell Willoughby MD Primary Care Provider + Reason for Visit * Reason Comments eRx-Medication Refill Encounter Details Date Type Department Care Team (Late st Contact Info) Description 08/30/2023 Refill General Internal Medicine [facility] [address] [place] [address] Leyda Ahn MD [address] [place] [address] Cellulitis of lower extremity, unspecified laterality; Abrasion of skin Allergies Active Allergy Reactions Criticality Noted Date Comments Pantoprazole 01/29/2022 Itchiness, rash Penicillins Hives 01/13/2003 hives documented as of this encounter (statuses as of 08/31/2023) Medications Medication Sig Dispensed Refills Start Date [...] or Wheezing. 20.1 g 3 11/06/2021 Active Gabapentin 100 MG Oral Capsule (Neurontin) 1 tab am 1 tab noon x 7days then 1 tab three times daily 270 Capsule 1 05/13/2022 Active Additional Information Patient taking differently: 100 mg Oral Daily(AM), (No instructions reported), Reported on 02/16/2023 Mesalamine 1.2 GM Oral Tablet Delayed Release [...] 08/12/2023 Active Doxycycline Hyclate 100 MG Oral CapsuleIndications :Cellulitis of lower extremity, unspecified laterality,Abrasio n of skin TAKE 1 CAPSULE BY MOUTH IN THE MORNING AND 1 CAPSULE BEFORE BEDTIME. DO ALL THIS FOR 10 DAYS. UNTIL GONE.. 20 Capsule 0 08/31/2023 Active Hospital, Clinic, or Other Facility Administered Medication Ordered Dose Route Frequency Start Date End Date Status albuterol sulfate (PROVENTIL) (2.5 MG/3ML) 0.083% inhalation solution 2.5 mgIndications:COPD, severity to be determined (HCC),Chondrosarcoma (HCC),Pulmonary hypertension (HCC) 2.5 mg NEBULIZER PRN 01/07/2019 Active vitamin b-12 (Cyanocobalamin) inj 1,000 mcgIndications:B12 deficiency 1000 mcg IM [id number] 04/19/2023 03/19/2024 Active documented as of this encounter (statuses as of 08/31/2023) Active Problems Problem Noted Date Diagnosed Date [...] as of this encounter (statuses as of 08/31/2023) Resolved Problems Problem Noted Date Diagnosed Date Resolved Date Permanent atrial fibrillation 03/28/2019 10/28/2021 Chronic systolic CHF (conges tive heart failure) 03/28/2019 01/03/2021 CHF with right heart failure 03/21/2019 03/12/2022 Atherosclerosis of aorta 11/16/2018 Carpal tunnel syndrome 03/28/201302/10 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 Henriquez [facility] [place] asymptomatic en plaque cavernous [...] well after 03/29 surgical repair LOC PRIM [id number] 05/09/200310/2016 Esotropia 01/13/2003 02/10/2017 Overview: 11/24- R sixth nerve palsy- improving MRI/MRA negative Alopecia 01/13/2003 02/10/2017 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/2002 09/20/2018 Overview: not bx proven DIVERTICULOSIS OF COLON 06/16/200202/22 Menopause 06/16/2002 10/23/2021 Abnormal weight gain 06/16/2002 017 Other ulcerative colitis with rectal bleeding 03/12/2022 documented as of this encounter (statuses as of 08/31/2023) Immunizations Name Administration Dates Next Due COVID-19 [...] encounter Miscellaneous Notes * Telephone Encounter - Maxwell Willoughby MD - 08/31/2023 10:07 AM EDT Signed Prescriptions: Disp Refills Doxycycline Hyclate 100 MG Oral Capsule 20 Cap*0 Sig: TAKE 1 CAPSULE BY MOUTH IN THE MORNING AND 1 CAPSULE BEFORE BEDTIME. DO ALL THIS FOR 10 DAYS. UNTIL GONE.. Authorizing Provider: MAXWELL WILLOUGHBY * Telephone Encounter - Bran Ace RN - 08/31/2023 10:03 AM EDTPending Prescriptions: Disp Refills Doxycycline Hyclate 100 MG Oral Capsule [P*20 Cap*0 Sig: Take 1 Capsule by mouth in the morning and 1 Capsule before bedtime. Do all this for 10 days. Until gone.. * Telephone Encounter - Bran Ace RN - 08/31/2023 10:02 AM EDT Images from the original note were not included. Refill routed to provider. Provider to address: med Reason for Call: eRx-Medication Refill Contact: My Chad Contact Type: Medication Outcome: See above Face to face time spent with Patient (minutes): 0 Total Time including non face to face (minutes): 10 Bran Ace BLOG WRITER [facility] Primary Care Nurse Coordinator [facility] (Helping out) * Telephone Encounter - Slade Capellan - 08/31/2023 5:11 AM EDTPending Prescriptions: Disp Refills Doxycycline Hyclate 100 MG Oral Capsule [P*20 Cap*0 Sig: Take 1Capsule by mouth in the morning and 1 Capsule before bedtime. Do all this for 10 days. Until gone..- documented in this encounter Plan of Treatment Upcoming Encounters Date Type Department Care Team (Late st Contact Info) Description 11/09/2023 11:20 AM EDT Office Visit General Internal Medicine [facility] [place] [address] [place] [address] Leyda Ahn MD [address] [place] [address] 05/03/2024 9:00 AM EST Office Visit Neurology [facility] [place] [address] [place] [address] Ellen Carias PA-C [address] [place] [address] Scheduled Procedures Name Priority Associated Diagnoses Date/Ti [...] this encounter Medical Devices Implanted Type Area Fly Rail Operator Device Identifier Shelf Expiration Date Model / Serial / Lot Valve Ce Aortic 21mm 3000tfx - [id number] Implanted:Qty : 1 on 04/17/2010 at [place] [facility] Tissue - Non Human N/A: Chest [employer]Y [employer] ELISABETH 04/17/2010 3000TFX-2 / [id number] / Patch Pericard 8x14cm [id number] - [id number] Implanted:Qty : 1 on 04/17/2010 at [place] [facility] Tissue - Non Human N/A: Chest [employer] 12/05/2014 PC-0814N / / [id number] Sut Steel 6 M654g - [id number] Implanted:Qty : 4 on 04/17/2010 at [place] [facility] N/A: Chest DO NOT USE 06/17/2014 M654G / / [id number] documented as of this encounter Visit Diagnoses Diagnosis Cellulitis of lower extremity, unspecified laterality Abrasion of skin Abrasion or friction burn of other, multiple, and unspecified sites, without mention of infection documented in this encounter Advance Directives Documents on File Type Date Recorded Patient Package Checker Expl anation Advance Directives and Living Will 11/01/2008 LIVING WILL Latest Code Status on File Code Status Date Activated Date Inactivated Comments Full Code 04/17/2010 12:37 PM 04/22/2010 9:47 PM Th is order reflects the patients wishes and were consensually agreed upon. Care Teams Belt Molder Relationship Specialty Start Date End Date Maxwell Willoughby MD [address] [place] [address] PCP - General Internal Medicine 01/03/21 documented as of this encounter
--- OUTSIDE RECORDS SUMMARY | 2023-11-11 05:50 | External Medical Summary | Summary of Care ---
Author Name Unknown Organization [facility] Address [address] [place] [address] Phone [phone] Care Team Providers Care Certified Diabetes Educator Name Role Phone Maxwell Sellers MD Primary Care Provider + Reason for Visit * Reason Onset Date Comments Medication Refill 08/31/2023 Encounter Details Date Type Department Care Team (Late st Contact Info) Description 08/31/2023 Refill Neurology [facility] [place] [address] [place] [address] Barbara Delgadillo PA-C [address] [facility] [place] [address] Allergies Active Allergy Reactions Criticality Noted Date [...] times daily 270 Capsule 1 09/02/2023 Active Gabapentin 100 MG Oral Capsule (Neurontin) [...] inj 1,000 mcgIndications:B12 deficiency 1000 mcg IM [id number] 04/19/2023 03/19/2024 Active documented as of this [...] 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 Henriquez [facility] N/[place] asymptomatic en plaque cavernous sinus meningioma [...] well after 03/29 surgical repair LOC PRIM [id number] 05/09/200310/2016 Esotropia 01/13/2003 02/10/2017 Overview: 7/03- R [...] encounter Miscellaneous Notes * Telephone Encounter - Barbara Delgadillo PA-C - 09/02/2023 7:59 AM EDT Signed Prescriptions: Disp Refills Gabapentin 100 MG Oral Capsule (Neurontin) 270 Ca*1 Sig: Take 1 tab three times daily Authorizing Provider: BARBARA DELGADILLO * Telephone Encounter - Gissell Grimes, [employer] - 09/01/2023 8:38 AM EDT Pending Prescriptions: Disp Refills Gabapentin 100 MG Oral Capsule (Neurontin) 270 Ca*1 Sig: Take 1tab three times daily documented in this encounter Plan of Treatment Upcoming Encounters Date Type Department Care Team (Late st Contact Info) Description 11/09/2023 11:20 AM EDT Office Visit General Internal Medicine [facility] [place] [address] [place], [place] [address] Leyda Ahn MD [address] [place] [address] 05/03/2024 9:00 AM EST Office Visit Neurology [facility] [place] [address] [facility] [place] [address] Ellen Carias PA-C [address] [place] [address] Scheduled Procedures Name Priority Associated Diagnoses Date/Ti [...] this encounter Medical Devices Implanted Type Area Professor Of Biblical Studies Device Identifier Shelf Expiration Date Model / Serial / Lot Valve Ce Aortic 21mm 3000tfx - [id number] Implanted:Qty : 1 on 04/17/2010 at OR [facility] Tissue - Non Human N/A: Chest [employer]Y [employer] ELISABETH 04/17/2010 3000TFX-2 1 / [id number] / Patch Pericard 8x14cm [id number] - [id number] Implanted:Qty : 1 on 04/17/2010 at OR [facility] Tissue - Non Human N/A: Chest [employer] 12/05/2014 -0814N / / [id number] Sut Steel 6 M654g - [id number] Implanted:Qty : 4 on 04/17/2010 at OR [facility] N/A: Chest DO NOT USE 06/17/2014 M654G / / [id number] documented as of this encounter Advance Directives Documents on File Type Date Recorded Patient Material Handler Expl anation Advance Directives and Living Will 11/01/2008 LIVING WILL Latest Code Status on File Code Status Date Activated Date Inactivated Comments Full Code 04/17/2010 12:37 PM 04/22/2010 9:47 PM Th is order reflects the patients wishes and were consensually agreed upon. Care Teams Certified Diabetes Educator Relationship Specialty Start Date End Date Maxwell Sellers MD [address] [place] [address] PCP - General Internal Medicine 01/03/21 documented as of this encounter
--- OUTSIDE RECORDS SUMMARY | 2023-11-11 05:50 | External Medical Summary | Summary of Care ---
Author Name Unknown Organization [facility] Address [address] [place] [address] Phone [phone] Care Team Providers Care Senior Product Designer Name Role Phone Maxwell Sellers MD Primary Care Provider + Reason for Visit * Reason Comments Follow Up Encounter Details Date Type Department Care Team (Late st Contact Info) Description 09/23/2023 8:00 AM EDT Office Visit Wound Care, [facility] [address] [place] [address] Radha Ribeiro DPM [address] [place] [address] Delayed healing of traumatic wound*; Venous insufficiency [...] Powder Breath Activated (umeclidinium-luisana nterol)Indications :Pulmonary hypertension ([facility]),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 Henriquez [facility] [place] asymptomatic en plaque cavernous sinus meningioma [...] well after 03/29 surgical repair LOC PRIM [id number] 05/09/2003 1010/2016 Esotropia 01/13/2003 02/10/2017 Overview: 7/03- [...] * Patient Instructions* Sailaja Parisi RN - 09/23/2023 8:46 AM EDT Compression Therapy Education: Any questions, redness or swelling around the wound and development of a temperature of 101F or greater, please contact the [facility]. Please check your toes frequently. If they become blue, purple, pale, cool, numb, and/or tingling elevate your leg higher than your heart for one hour. If you have no relief of the symptoms, cut the entire wrap off and call the [facility], . Keep the wrap dry. If the wrap slides down or bunches at the ankle, call [facility]. Elevate legs above heart for 30 minutes 2-3 times a day. documented in this encounter Progress Notes * Radha Ribeiro DPM - 09/23/2023 8:44 AM EDT Follow up Examination Patient: Nereida Stephen Allergies: Pantoprazole and Penicillins Chief Complaint: Chief Complaint Patient presents with Follow Up History of Present Illness Nereida Stephen is a 83 year old female here today for RIGHT lower leg wound. Pt reports with Daughter who provides most of the history. Wound present at least since May. Currently being treated for cellulitis. Does not wear compression although has been told previously she needed to wear compression. Currently on Lasix. 09/22 Follow up right lower leg. Constitutional There were no vitals taken for [...] performed by YOLIS CHEATHAM at [facility] [place]ONOSCOPY 02/26/2005 Colonoscopy done at [facility] by Dr. Hilliard COLONOSCOPY THRU STOMA, W/BIOPSY 02/2009 chronic colitis with moderate activity, sm bowel ileitis, f/u in office COLONOSCOPY W/ BIOPSY (RECTUM) 11/15/2007 bx's taken COLONOSCOPY W/ BIOPSY (RECTUM) 02/14/2011 inflammation in colon- await path COLONOSCOPY, DIAGNOSTIC (RECTUM) 09/12/2014 normal bx, repeat 2 yrs/COLONOSCOPY FLEXIBLE PROXIMAL DIAGNOSTIC performed by Eduar Beckham MD at ENDOSCOPY [facility] COLONOSCOPY, DIAGNOSTIC (RECTUM) 09/24/2018 diverticulosis, repeat 3 yrs / [facility] COLONOSCOPY, DIAGNOSTIC (RECTUM) 12/25/2021 chronic active colitis / INPT [facility] EGD, FLEXIBLE, DIAGNOSTIC 09/24/2018 gastritis / [facility] EGD, FLEXIBLE, DIAGNOSTIC 12/25/2021 sm hiatal hernia / INPT [facility] INFORMATION 04/17/2010 [employer] Aortic Valve Model# 3000TFX-21 MISCELLANEOUS ORDER ([facility] ONLY) 05/2104 Gamma Knife for meningioma at [facility] MISCELLANEOUS ORDER ([facility] ONLY) N/A 05/04/2017 redo of chest chondrosarcoma at [facility] NECK/CHEST DEEP TUMOR REMOVAL, UNDER 5 CM 04/17/2010 EXCISION TUMOR DEEP NECK THORAX performed by DEVORAH CARSON at [place] [facility] NONE 07/2004 thyroidectomy in [place] PARTIAL COLECTOMY W/ANASTOMOSIS 10/2001 Colectomy Partial rectosigmoid resection with RUTH/BSO and incidental appy REMOVAL OF APPENDIX 10/2001 Appendectomy REMOVAL OF OVARY/OVIDUCT(S) 10/2001 Ovary/Tube(S) Removal REMOVAL OF THYROID GLAND 2004 Thyroidectomy REPAIR INITIAL INCISIONAL HERNIA 04/14/2005 [facility] Surgi-Center Dr. Hilliard REPAIR INITIAL INCISIONAL OR VENTRAL HERNIA; REDUCIBLE 01/08/2004 Lower abdominal hernia repair with mesh [facility] Surgi[facility] Dr. 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 180 Tablet 3 Aspirin 81 MG Oral Tablet Delayed Release Take 1 Tablet by mouth in the morning. Furosemide 20 MG Oral Tablet (Lasix) 1 tab by mouth 3 days/week until leg edema improves (Patient taking differently: as needed (edema). 1 tab by mouth 3 days/week until leg edema improves) 30 [id number] Metoprolol Succinate ER 25 MG Oral Tablet [...] nostril in the morning. 16 g 5 Acetaminophen ER 650 MG Oral Tablet Extended Release 2 pill daily in AM & 2 pills in afternoon if needed oxygen GAS Use 2.5 L/min(Oxygen) as directed at bedtime. 1 Each 1 Albuterol Sulfate HFA 108 (90 Base) MCG/ACT Inhalation Aerosol Solution Inhale by mouth 2 Puffs every 4 hours as needed for Cough, Shortness of Breath or Wheezing. 20.1 g 3 Polyethylene Glycol 3350 17 GM/SCOOP Oral Powder Take 17 g by mouth as needed. oxygen IN GAS 2L/min(Oxygen) continuous via nasal cannula. 1 Each 0 Anoro Ellipta 62.5-25 MCG/ACT Inhalation Aerosol Powder Breath Activated (umeclidinium-vilanterol) Inhale 1 Puff by mouth in the morning. 180 Blister Dosing Unit 3 Current Facility-Administered Medications Medication Dose Route Frequency Provider Last Rate Last Admin albuterol sulfate (PROVENTIL) (2.5 MG/3ML) 0.083% inhalation solution 2.5 mg 2.5 mg Nebulizer PRN Kelsey Bowles DO 2.5 mg at 11/12/21 1153 vitamin b-12 (Cyanocobalamin) inj 1,000 mcg 1,000 mcg Intramuscular Q4 Weeks Yahir Collado PA-C 1,000 mcg at 05/29/23 1022 WOUND ASSESSMENT Wound Grade/Stage/Type (if changed): Wound/Ulcer Etiology: Trauma, Other Alteration in Skin Integrity Anterior;Lower;Right Leg (Active) Clinical Image 09/23/23 08 Wound Length (cm) 2 cm 09/23/23 08 Wound Width (cm) 0.8 cm 09/23/23 08 Wound Depth (cm) -- (Unable to determine ) 09/23/23 08 Necrotic Tissue (%) 100% 09/23/23 08 Drainage none 09/23/23 08 Odor (after cleansing wound) No 09/23/[address] Eleanor-Wound (Surrounding Skin) Erythematous 09/23/238[address] Wound Surface Area (cm^2) 1.6 cm^2 09/23/23 08 Wound Profile Wound Type: Trauma (23) Wound Location: RIGHT lower leg Pressure Wound: N/A Diabetic Wound/Lower Extremity: N/A All Others: Full Thickness Wound/Ulcer Debridement No Debridement Performed Assessment/Plan: (T14.8XXD) Delayed healing of traumatic wound (primary encounter diagnosis) (I87.2) Venous insufficiency - Pt seen and evaluated - Cont Coban 2 lite - Will need changed weekly - Delays in wound healing secondary to edema which hopefully the compression wrap will aid - Pt instructed to keep legs elevated and also be compliant with medications - Follow up in 2-3 weeks - Weekly for nursing changes. - Call with any questions or concerns. Radha Ribeiro DPM 09/23/2023 documented in this encounter Nursing Notes * Sailaja Parisi, RN - 09/23/2023 8:19 AM EDT Wrap removed and leg washed with soap edema is decreased and wound is dry and scabbed. documented in this encounter Plan of Treatment Upcoming Encounters Date Type Department Care Team (Late st Contact Info) Description 09/30/2023 8:20 AM EDT Office Visit Wound Care, [address] [place] [address] Radha Ribeiro, DPM [address] [facility] [place] [address] 11/09/2023 11:20 AM EDT Office Visit General Internal Medicine [facility] [address] [facility] [place] [address] Leyda Ahn MD [address] [facility] [place] [address] 05/03/2024 9:00 AM EST Office Visit Neurology [facility] [address] [facility] [place] [address] Ellen Carias PA-C [address] [place] [address] Scheduled Procedures Name Priority Associated Diagnoses Date/Ti me COLONOSCOPY FLEXIBLE PROXIMA L DIAGNOSTIC Recall IBD (inflammatory bowel disease) Health Maintenance Due Date Last Done Comments Zoster Vaccines (2 of 3) 11/09/2014 09/14/2014, 08/24 COVID-19 Vaccine ( season) 2023 03/18/2022, 05/13/2021, 08/30/2020, Additional history exists DXA Scan 08/10/2023 08/09/2020, 07/23, 11/07/2009, Additional history exists Colonoscopy 12/26/2023 12/25/2021, 08/07/2021, 09/24/2018, Additional history exists Depression Screening 05/15/2024 [...] this encounter Medical Devices Implanted Type Area Arborer Device Identifier Shelf Expiration Date Model / Serial / Lot Valve Ce Aortic 21mm 3000tfx - [id number] Implanted:Qty : 1 on 04/17/2010 [place] [facility] Tissue - Non Human N/A: Chest FRY [employer] Formula E ELISABETH 04/17/2010 3000TFX-2 / [id number] / Patch Pericard 8x14cm [id number] - [id number] Implanted:Qty : 1 on 04/17/2010 at [place] [facility] Tissue - Non Human N/A: Chest [employer] 12/05/2014 -0814N / / [id number] Sut Steel 6 M654g - [id number] Implanted:Qty : 4 on 04/17/2010 at [place] [facility] N/A: Chest DO NOT USE 06/17/2014 M654G / / [id number] documented as of this encounter Visit Diagnoses Diagnosis Delayed healing of traumatic wound- Primary Venous insufficiency Unspecified venous (peripheral) insufficiency documented in this encounter Advance Directives Documents on File Type Date Recorded Patient Shotblast Equipment Operator Expl anation Advance Directives and Living Will 11/01/2008 LIVING WILL Latest Code Status on File Code Status Date Activated Date Inactivated Comments Full Code 04/17/2010 12:37 PM 04/22/2010 9:47 PM Th is order reflects the patients wishes and were consensually agreed upon. Care Teams Senior Product Designer Relationship Specialty Start Date End Date Maxwell Sellers MD [address] [place] [address], [place] [address] PCP - General Internal Medicine 01/03/21 documented as of this encounter
--- OUTSIDE RECORDS SUMMARY | 2023-11-11 05:50 | External Medical Summary | Summary of Care ---
Author Name Unknown Organization [facility] Address [address] [place] [address] Phone [phone] Care Team Providers Care Protein Scientist Name Role Phone Maxwell Sellers MD Primary Care Provider + Reason for Visit * Reason Onset Date Comments Advice 09/24/2023 Encounter Details Date Type Department Care Team (Late st Contact Info) Description 09/24/2023 Telephone General Internal Medicine [facility] [address] [place] [address] Maxwell Sellers MD [address] [place] [address] Advice Allergies Active Allergy Reactions Criticality Noted Date Comments Pantoprazole 01/29/2022 Itchiness, rash Penicillins Hives 01/13/2003 hives documented as of this encounter (statuses as of 09/24/2023) Medications Medication Sig Dispensed Refills Start Date [...] (HCC),Chondrosarco ma (HCC),COPD, severity to be determined ([facility]) Inhale 1 Puff by mouth [...] inj 1,000 mcgIndications:B12 deficiency 1000 mcg IM [id number] 04/19/2023 03/19/2024 Active documented as of this encounter (statuses as of 09/24/2023) Active Problems Problem Noted Date Diagnosed Date [...] as of this encounter (statuses as of 09/24/2023) Resolved Problems Problem Noted Date Diagnosed Date Resolved Date Permanent atrial fibrillation 03/28/2019 10/28/2021 Chronic systolic CHF (conges tive heart failure) 03/28/2019 01/03/2021 CHF with right heart failure 03/21/2019 03/12/2022 Atherosclerosis of aorta 11/16/2018 Carpal tunnel syndrome 03/28/201302/10 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 Henriquez [facility] asymptomatic en plaque cavernous sinus meningioma [...] well after 03/29 surgical repair LOC PRIM [id number] 05/09/2003 1010/2016 Esotropia 01/13/2003 02/10/2017 Overview: 11/24- R sixth nerve palsy- improving MRI/MRA negative Alopecia 01/13/2003 02/10/2017 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/2002 09/20/2018 Overview: not bx proven DIVERTICULOSIS OF COLON 06/16/200202/22 Menopause 06/16/2002 10/23/2021 Abnormal weight gain 06/16/2002 017 Other ulcerative colitis with rectal bleeding 03/12/2022 documented as of this encounter (statuses as of 09/24/2023) Immunizations Name Administration Dates Next Due COVID-19 [...] encounter Miscellaneous Notes * Telephone Encounter - Kait Turner LPN - 09/24/2023 5:13 PM EDT Patient's daughter notified of message below. She is currently in [place] and will be until Thursday. She is [...] 8:20 AM EDT Office Visit Wound Care, [address] [address] Radha Ribeiro DPM [address] [place] [address] 11/09/2023 11:20 AM EDT Office Visit General [place] [address] [address] [address] Leyda Ahn MD [address] [place] [address] [address] 05/03/2024 9:00 AM EST Office Visit [place] [address] [address] [address] [address] Ellen Carias PA-C [address] [address] Scheduled Procedures Name Priority Associated Diagnoses Date/Ti [...] this encounter Medical Devices Implanted Type Area Tree Trimming Supervisor Device Identifier Shelf Expiration Date Model / Serial / Lot Valve Ce Aortic 21mm 3000tfx - [id number] Implanted:Qty : 1 on 04/17/2010 [place] [facility] [place] Tissue - Non Human N/A: Chest [employer] 04/17/2010 3000TFX-2 / [id number] / Patch Pericard 8x14cm [id number] - [id number] Implanted:Qty : 1 on 04/17/2010 at [place] [facility] [place] Tissue - Non Human N/A: Chest [employer] 12/05/2014 PC-0814N / / [id number] Sut Steel 6 M654g - [id number] Implanted:Qty : 4 on 04/17/2010 at [place] [facility] [place] N/A: Chest DO NOT USE 06/17/2014 M654G / / [id number] documented as of this encounter Advance Directives Documents on File Type Date Recorded Patient Packager Expl anation Advance Directives and Living Will 11/01/2008 LIVING WILL Latest Code Status on File Code Status Date Activated Date Inactivated Comments Full Code 04/17/2010 12:37 PM 04/22/2010 9:47 PM Th is order reflects the patients wishes and were consensually agreed upon. Care Teams Protein Scientist Relationship Specialty Start Date End Date Maxwell Sellers MD [address] [place] [address] PCP - General Internal Medicine 01/03/21 documented as of this encounter
--- OUTSIDE RECORDS SUMMARY | 2023-11-11 05:51 | External Medical Summary | Summary of Care ---
Author Name Unknown Organization [facility] Address [address] [place] [address] Phone [phone] Care Team Providers Care Derrick Boat Leverman Name Role Phone Maxwell Sellers MD Primary Care Provider + Reason for Visit * Reason Comments eRx-Medication Refill Encounter Details Date Type Department Care Team (Late st Contact Info) Description 08/12/2023 Refill Cardiology, [facility] [address] [facility] [address] Pastora Arzate CRNP [address] [facility] [place] [address] Paroxysmal atrial fibrillation (HCC) Allergies Active Allergy Reactions Criticality Noted Date Comments Pantoprazole 01/29/2022 Itchiness, rash Penicillins Hives 01/13/2003 hives documented as of this encounter (statuses as of 08/12/2023) Medications Medication Sig Dispensed Refills Start Date [...] or Wheezing. 20.1 g 3 2 Active Gabapentin 100 MG Oral Capsule (Neurontin) 1 tab am 1 tab noon x 7days then 1 tab three times daily 270 Capsule 1 2 Active Additional Information Patient taking differently: 100 mg Oral Daily(AM), (No instructions reported), Reported on 02/16/2023 Mesalamine 1.2 GM Oral Tablet Delayed Release (Lialda) Take 2 Tablets by mouth in the morning. 180 Tablet 3 3 Active Levothyroxine Sodium 112 MCG Oral Tablet (Levoxyl) Take 1 Tablet by mouth daily first thing in the morning. (at least 30 min prior to breakfast or other meds) 90 Tablet 3 3 Active Polyethylene Glycol 3350 [...] mouth daily. 45 Tablet 3 4 Active Metoprolol Succinate ER 25 MG Oral Tablet Extended Release 24 Hour (toPROL XL)Indications:Pa roxysmal atrial fibrillation (HCC) Take 0.5 Tablets by mouth daily. 45 Tablet 3 4 08/12/19 24 Discontinued Hospital, Clinic, or Other Facility Administered Medication Ordered Dose Route Frequency Start Date End Date Status albuterol sulfate (PROVENTIL) (2.5 MG/3ML) 0.083% inhalation solution 2.5 mgIndications:COPD, severity to be determined (HCC),Chondrosarcoma (HCC),Pulmonary hypertension (HCC) 2.5 mg NEBULIZER PRN 01/07/2019 Active vitamin b-12 (Cyanocobalamin) inj 1,000 mcgIndications:B12 deficiency 1000 mcg IM [id number] 04/19/2023 03/19/2024 Active documented as of this encounter (statuses as of 08/12/2023) Active Problems Problem Noted Date Diagnosed Date [...] as of this encounter (statuses as of 08/12/2023) Resolved Problems Problem Noted Date Diagnosed Date Resolved Date Permanent atrial fibrillation 03/28/2019 10/28/2021 Chronic systolic CHF (conges tive heart failure) 03/28/2019 01/03/2021 CHF with right heart failure 03/21/2019 03/12/2022 Atherosclerosis of aorta 11/16/2018 Carpal tunnel syndrome 03/28/201302/10 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 Henriquez [facility] [place] asymptomatic en plaque cavernous sinus [...] well after 03/29 surgical repair LOC PRIM [id number] 05/09/2003 1010/2016 Esotropia 01/13/2003 02/10/2017 Overview: 11/24- R sixth nerve palsy- improving MRI/MRA negative Alopecia 01/13/2003 02/10/2017 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/2002 09/20/2018 Overview: not bx proven DIVERTICULOSIS OF COLON 06/16/200202/22 Menopause 06/16/2002 10/23/2021 Abnormal weight gain 06/16/2002 017 Other ulcerative colitis with rectal bleeding 03/12/2022 documented as of this encounter (statuses as of 08/12/2023) Immunizations Name Administration Dates Next Due COVID-19 [...] encounter Miscellaneous Notes * Telephone Encounter - Amber Torres PA-C - 08/12/2023 4:22 PM EDT Signed Prescriptions: Disp Refills Metoprolol Succinate ER 25 MG Oral Tablet *45 Tab*3 Sig: Take 0.5 Tablets by mouth daily. Authorizing Provider: AMBER TORRES * Telephone Encounter - Ghada Sheppard COT - 08/12/2023 11:55 AM EDTPending Prescriptions: Disp Refills Metoprolol Succinate ER 25 MG Oral Tablet *45 Tab*3 Sig: Take 0.5 Tablets by mouth daily. * Telephone Encounter - Ghada Sheppard COT - 08/12/2023 11:53 AM EDT Pharmacy change Did you pend patient's preferred pharmacy and medication before forwarding?no Pharmacy: [id number] Pending Prescriptions: Disp Refills Metoprolol Succinate ER 25 MG Oral Tablet*90 Tab*1 Sig: TAKE 1 TABLET BY MOUTH EVERY DAY IN THE MORNING Last Visit: 10/06/2022 (in office), Visit date not found (telemedicine) Next Visit: Visit date not found If no future appointments scheduled, and last appointment is greater than a year ago, please schedule patient for a follow-up appointment Last date the medication was ordered: 08-05-2023 Is this request for a controlled substance?No Urine Drug Screen:No results found. However, due to the size of the patient record, not all encounters were searched. Please check Results Review for a complete set of results. Patient Phone Numbers Labs: Lab Results Component Value Date/Time CREAT 0.8 02/16/2023 11:52 AM CREAT 0.42 (L) 09/19/2022 03:07 AM CREAT 1.0 06/15/2020 01:48 PM POTASSIUM 4.3 02/16/2023 11:52 AM POTASSIUM 3.9 09/19/2022 03:07 AM POTASSIUM 4.2 06/15/2020 01:48 PM TSH 0.63 05/15/2023 12:02 PM TSH 0.174 (A) 11/12/2021 12:00 AM TSH 0.87 06/15/2020 01:48 PM LDLCALC 78 06/15/2020 01:48 PM LDLDIRECT NOT APPLICABLE 06/15/2020 01:48 PM LDLDIRECT 77 10/13/2007 11:23 AM ALT 17 02/16/2023 11:52 AM ALT 25 06/15/2020 01:48 PM HGBA1C 5.0 06/15/2020 01:48 PM documented in this encounter Plan of Treatment Upcoming Encounters Date Type Department Care Team (Late st Contact Info) Description 11/09/2023 11:20 AM EDT Office Visit General Internal Medicine [place] [address] [place] [address] Leyda Ahn MD [address] [place] [address] 05/03/2024 9:00 AM EST Office Visit Neurology [place] [address] [place] [address] Ellen Carias PA-C [address] [place] [address] Scheduled Procedures Name Priority Associated Diagnoses Date/Ti [...] this encounter Medical Devices Implanted Type Area Director Of Coding Device Identifier Shelf Expiration Date Model / Serial / Lot Valve Ce Aortic 21mm 3000tfx - [id number] Implanted:Qty : 1 on 04/17/2010 [place] [facility] [place] Tissue - Non Human N/A: Chest [employer] 04/17/2010 3000TFX-2 [id number] / Patch Pericard 8x14cm [id number] - [id number] Implanted:Qty : 1 on 04/17/2010 at [place] [facility] Tissue - Non Human N/A: Chest [employer] 12/05/2014 PC-0814N / / [id number] Sut Steel 6 M654g - [id number] Implanted:Qty : 4 on 04/17/2010 at [place] [facility] [place] N/A: Chest DO NOT USE 06/17/2014 M654G / / [id number] documented as of this encounter Visit Diagnoses Diagnosis Paroxysmal atrial fibrillation (HCC) Atrial fibrillation documented in this encounter Advance Directives Documents on File Type Date Recorded Patient Body Repairer Expl anation Advance Directives and Living Will 11/01/2008 LIVING WILL Latest Code Status on File Code Status Date Activated Date Inactivated Comments Full Code 04/17/2010 12:37 PM 04/22/2010 9:47 PM Th is order reflects the patients wishes and were consensually agreed upon. Care Teams Derrick Boat Leverman Relationship Specialty Start Date End Date Maxwell Sellers MD [address] [place] [address] PCP - General Internal Medicine 01/03/21 documented as of this encounter
--- OUTSIDE RECORDS SUMMARY | 2023-11-11 05:51 | External Medical Summary | Summary of Care ---
Author Name Unknown Organization [facility] Address [address] [place] [address] Phone [phone] Care Team Providers Care Import/Export Agent Name Role Phone Maxwell Sellers MD Primary Care Provider + Reason for Visit * Reason Comments eRx-Medication Refill Encounter Details Date Type Department Care Team (Late st Contact Info) Description 08/05/2023 Refill Cardiology, [facility] [address] [place] [address] Pastora Arzate CRNP [address] [address] Paroxysmal atrial fibrillation (HCC) Allergies Active Allergy Reactions Criticality Noted Date Comments Pantoprazole 01/29/2022 Itchiness, rash Penicillins Hives 01/13/2003 hives documented as of this encounter (statuses as of 08/05/2023) Medications Medication Sig Dispensed Refills Start Date [...] fibrillation (HCC) Take 0.5 Tablets by mouth in the morning. --dec 05/15/2023. 90 Tablet 3 3 08/05/19 24 Discontinued Hospital, Clinic, or Other Facility Administered Medication Ordered Dose Route Frequency Start Date End Date Status albuterol sulfate (PROVENTIL) (2.5 MG/3ML) 0.083% inhalation solution 2.5 mgIndications:COPD, severity to be determined (HCC),Chondrosarcoma (HCC),Pulmonary hypertension (HCC) 2.5 mg NEBULIZER PRN 01/07/2019 Active vitamin b-12 (Cyanocobalamin) inj 1,000 mcgIndications:B12 deficiency 1000 mcg IM [id number] 04/19/2023 03/19/2024 Active documented as of this encounter (statuses as of 08/05/2023) Active Problems Problem Noted Date Diagnosed Date [...] as of this encounter (statuses as of 08/05/2023) Resolved Problems Problem Noted Date Diagnosed Date Resolved Date Permanent atrial fibrillation 03/28/2019 10/28/2021 Chronic systolic CHF (conges tive heart failure) 03/28/2019 01/03/2021 CHF with right heart failure 03/21/2019 03/12/2022 Atherosclerosis of aorta 11/16/2018 Carpal tunnel syndrome 03/28/201302/10 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 [employer] Other*[id number] 04/08/2010 07/01/2016 Overview: Study Titile: [employer] Markers for Patients with Cardiovascular Disease Project # [id number] PI: Aleisha Loredo MD Please call [phone] with study related questions AORTIC VALVE STENOSIS [...] well after 03/29 surgical repair LOC PRIM [id number] 05/09/2003 1010/2016 Esotropia 01/13/2003 02/10/2017 Overview: 7/03- R sixth nerve palsy- improving MRI/MRA negative Alopecia 01/13/2003 02/10/2017 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/2002 09/20/2018 Overview: not bx proven DIVERTICULOSIS OF COLON 06/16/200202/22 Menopause 06/16/2002 10/23/2021 Abnormal weight gain 06/16/2002 017 Other ulcerative colitis with rectal bleeding 03/12/2022 documented as of this encounter (statuses as of 08/05/2023) Immunizations Name Administration Dates Next Due COVID-19 [...] Telephone Encounter - Amber Torres PA-C - 08/05/2023 12:14 PM EDT Signed Prescriptions: Disp Refills Metoprolol Succinate ER 25 MG Oral Tablet *45 Tab*3 Sig: Take 0.5 Tablets by mouth daily. Authorizing Provider: AMBER TORRES * Telephone Encounter - Ghada Sheppard COT - 08/05/2023 10:07 AM EDTPending Prescriptions: Disp Refills Metoprolol Succinate ER 25 MG Oral Tablet *45 Tab*3 Sig: Take 0.5 Tablets by mouth daily. * Telephone Encounter - Ghada Sheppard COT - 08/05/2023 10:05 AM EDT Did you pend patient's preferred pharmacy and medication before forwarding?yes [facility]acy: [id number] [facility] Pending Prescriptions: Disp Refills Metoprolol Succinate ER 25 MG Oral Tablet*45 Tab*3 Sig: Take 0.5 Tablets by mouth daily. Last Visit: 10/06/2022 (in office), Visit date not found (telemedicine) Next Visit: Visit date not found If no future appointments scheduled, and last appointment is greater than a year ago, please schedule patient for a follow-up appointment Last date the medication was ordered: 05-15-2023 Is this request for a controlled substance?No [...] Internal [place] [address] Leyda Ahn MD [address] [address] 05/03/2024 9:00 AM EST Office Visit Neurology [place] [address] [place] [address] Ellen Carias PA-C [address] [facility] [address] [place] [id number] Scheduled Procedures Name Priority Associated Diagnoses Date/Ti [...] this encounter Medical Devices Implanted Type Area Aircraft Avionics Technician Device Identifier Shelf Expiration Date Model / Serial / Lot Valve Ce Aortic 21mm 3000tfx - [id number] Implanted:Qty : 1 on 04/17/2010 at OR [facility] [place] Tissue - Non Human N/A: Chest [employer] 04/17/2010 3000TFX-2 / [id number] / Patch Pericard 8x14cm [id number] - [id number] Implanted:Qty : 1 on 04/17/2010 at OR [facility] [place] Tissue - Non Human N/A: Chest [employer] 12/05/2014 PC-0814N / / [id number] Sut Steel 6 M654g - [id number] Implanted:Qty : 4 on 04/17/2010 at OR [facility] N/A: Chest DO NOT USE 06/17/2014 M654G / / [id number] documented as of this encounter Visit Diagnoses Diagnosis Paroxysmal atrial fibrillation (HCC) Atrial fibrillation documented in this encounter Advance Directives Documents on File Type Date Recorded Patient Intake Assessor Expl anation Advance Directives and Living Will 11/01/2008 LIVING WILL Latest Code Status on File Code Status Date Activated Date Inactivated Comments Full Code 04/17/2010 12:37 PM 04/22/2010 9:47 PM Th is order reflects the patients wishes and were consensually agreed upon. Care Teams Import/Export Agent Relationship Specialty Start Date End Date Maxwell Sellers MD [address] [place] [address] PCP - General Internal Medicine 01/03/21 documented as of this encounter
--- OUTSIDE RECORDS SUMMARY | 2023-11-11 05:51 | External Medical Summary | Summary of Care ---
Author Name Unknown Organization [facility] Address [address] [place] [address] Phone [phone] Care Team Providers Care Massage Operator Name Role Phone Maxwell Sellers MD Primary Care Provider + Encounter Details Date Type Department Care Team (Late st Contact Info) Description 05/29/2023 Telephone General Internal Medicine [facility] [address] [facility] [place] [address] Maxwell Sellers MD [address] [facility] [place] [address] Allergies Active Allergy Reactions Criticality Noted Date Comments Pantoprazole 01/29/2022 Itchiness, rash Penicillins Hives 01/13/2003 hives documented as of this encounter (statuses as of 05/29/2023) Medications Medication Sig Dispensed Refills Start Date [...] 0.5 Tablets by mouth in the morning. --05/15/2023. 90 Tablet 3 05/15/2023 Active Hospital, Clinic, or Other Facility Administered Medication Ordered Dose Route Frequency Start Date End Date Status albuterol sulfate (PROVENTIL) (2.5 MG/3ML) 0.083% inhalation solution 2.5 mgIndications:COPD, severity to be determined (HCC),Chondrosarcoma (HCC),Pulmonary hypertension (HCC) 2.5 mg NEBULIZER PRN 01/07/2019 Active vitamin b-12 (Cyanocobalamin) inj 1,000 mcgIndications:B12 deficiency 1000 mcg IM [id number] 04/19/2023 03/19/2024 Active documented as of this encounter (statuses as of 05/29/2023) Active Problems Problem Noted Date Diagnosed Date [...] as of this encounter (statuses as of 05/29/2023) Resolved Problems Problem Noted Date Diagnosed Date Resolved Date Permanent atrial fibrillation 03/28/2019 10/28/2021 Chronic systolic CHF (conges tive heart failure) 03/28/2019 01/03/2021 CHF with right heart failure 03/21/2019 03/12/2022 Atherosclerosis of aorta 11/16/2018 Carpal tunnel syndrome 03/28/201302/10 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 Henriquez [facility] N/S asymptomatic en plaque [...] well after 03/29 surgical repair LOC PRIM [id number] 05/09/2003 10/0 10/2016 Esotropia 01/13/2003 02/10/2017 Overview: 7/03- R sixth nerve palsy- improving MRI/MRA negative Alopecia 01/13/2003 02/10/2017 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/2002 09/20/2018 Overview: not bx proven DIVERTICULOSIS OF COLON 06/16/200202/22 Menopause 06/16/2002 10/23/2021 Abnormal weight gain 06/16/2002 017 Other ulcerative colitis with rectal bleeding 03/12/2022 documented as of this encounter (statuses as of 05/29/2023) Immunizations Name Administration Dates Next Due COVID-19 [...] Date Smoking Tobacco: Former Cigarettes 3 23 Q uit: 05/25/2001 Smokeless Tobacco: Never Alcohol Use Standard [...] encounter Miscellaneous Notes * Telephone Encounter - Pastora Carpenter OSA - 05/29/2023 2:48 PM EST Pt. Going to [place] for 3 months. Says she will call in to get order * Telephone Encounter - Ghada Galicia LPN - 05/29/2023 11:56 AM EST Per order she is to have a B12 injection every 4 weeks. Please call to schedule next injection. vitamin b-12 (Cyanocobalamin) inj 1,000 mcg 1,000 mcg, Intramuscular, [id number] * Telephone Encounter - Eirc Carrillo OSA - 05/29/2023 10:53 AM EST Pt stopped by my desk after her B12 shot today with the nurses, she was very confused about how often she gets the shots and about scheduling. Please call pt to set up next inj documented in this encounter Plan of Treatment Upcoming Encounters Date Type Department Care Team (Late st Contact Info) Description 11/09/2023 11:20 AM EDT Office Visit General Internal Medicine [place] [address] [place] [address] [address] Leyda Ahn MD [address] [facility] [place] [address] 05/03/2024 9:00 AM EST Office Visit Neurology [facility] [address] [facility] [place] [address] Ellen Carias PA-C [address] [address] Scheduled Procedures Name Priority Associated Diagnoses Date/Ti [...] this encounter Medical Devices Implanted Type Area Career Coach Device Identifier Shelf Expiration Date Model / Serial / Lot Patch Pericard 8x14cm [id number] - [id number] Implanted:Qty : 1 on 04/17/2010 at [place] [facility] [place] Tissue - Non Human N/A: Chest [employer] 12/05/2014 PC-0814N / / [id number] Sut Steel 6 M654g - [id number] Implanted:Qty : 4 on 04/17/2010 at [place] [facility] [place] N/A: Chest DO NOT USE 06/17/2014 M654G / / [id number] documented as of this encounter Advance Directives Documents on File Type Date Recorded Patient Publishing Editor Expl anation Advance Directives and Living Will 11/01/2008 LIVING WILL Latest Code Status on File Code Status Date Activated Date Inactivated Comments Full Code 04/17/2010 12:37 PM 04/22/2010 9:47 PM Th is order reflects the patients wishes and were consensually agreed upon. Care Teams Massage Operator Relationship Specialty Start Date End Date Maxwell Sellers MD [address] [place] [address] PCP - General Internal Medicine 01/03/21 documented as of this encounter
--- OUTSIDE RECORDS SUMMARY | 2023-11-11 05:51 | External Medical Summary | Summary of Care ---
Author Name Unknown Organization [facility] Address [address] [place] [address] Phone [phone] Care Team Providers Care Multiple Slide Operator Name Role Phone Maxwell Sellers MD Primary Care Provider + Reason for Visit * Reason Onset Date Comments Advice 03/23/2023 Encounter Details Date Type Department Care Team (Late st Contact Info) Description 03/23/2023 Telephone General Internal Medicine [facility] [address] [place] [address] Maxwell Sellers MD [address] [place] [address] Advice Allergies Active Allergy Reactions Criticality Noted Date Comments Pantoprazole 01/29/2022 Itchiness, rash Penicillins Hives 01/13/2003 hives documented as of this encounter (statuses as of 05/28/2023) Medications Medication Sig Dispensed Refills Start Date [...] until leg edema improves, Reported on 05/15/2023 Hospital, Clinic, or Other Facility Administered Medication Ordered Dose Route Frequency Start Date End Date Status albuterol sulfate (PROVENTIL) (2.5 MG/3ML) 0.083% inhalation solution 2.5 mgIndications:COPD, severity to be determined (HCC),Chondrosarcoma (HCC),Pulmonary hypertension (HCC) 2.5 mg NEBULIZER PRN 01/07/2019 Active vitamin b-12 (Cyanocobalamin) inj 1,000 mcgIndications:B12 deficiency 1000 mcg IM [id number] 04/19/2023 03/19/2024 Active documented as of this encounter (statuses as of 05/28/2023) Active Problems Problem Noted Date Diagnosed Date [...] as of this encounter (statuses as of 05/28/2023) Resolved Problems Problem Noted Date Diagnosed Date Resolved Date Permanent atrial fibrillation 03/28/2019 10/28/2021 Chronic systolic CHF (conges tive heart failure) 03/28/2019 01/03/2021 CHF with right heart failure 03/21/2019 03/12/2022 Atherosclerosis of aorta 11/16/2018 Carpal tunnel syndrome 03/28/201302/10 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 Informed of message. Verbalized understanding. * Telephone Encounter - Maxwell Sellers MD - 03/23/2023 12:19 PM EDT I would suggest she have a doctor or person in [place] to continue the monthly vit b12 for her * Telephone Encounter - Angela Carlton OSA - 03/23/2023 9:09 AM EDT Pt calling in regard to B12 inj. She was due to have monthly injections x4 (just had 1st dose, 2nd is scheduled 04/09). Pt will be in [place] from May to the end of July, so will not be able to get the 4th inj prior to leaving. Is this okay? Pt was unsure if PCP would rather she come in early for the 3rd inj, so that the 4th one could be done at the end of April instead of mid-May when she would be due. Pls advise? [phone]. For now, I will hold off scheduling the 3rd injection until PCP responds. documented in this encounter Plan of Treatment Upcoming Encounters Date Type Department Care Team (Late st Contact Info) Description 05/29/2023 10:00 AM EST Nurse Only Ancillary [facility] [address] [place] [address] Nurse, Int Med [address] [facility] [place] [address] 11/09/2023 11:20 AM EDT Office Visit General Internal Medicine [facility] [address] [place] [address] Leyda Ahn MD [address] [facility] [place] [address] 05/03/2024 9:00 AM EST Office Visit Neurology [facility] [place] [address] [facility] [place] [address] Ellen Carias PA-C [address] [place] [address] Scheduled Procedures Name Priority Associated Diagnoses Date/Ti me COLONOSCOPY FLEXIBLE PROXIMA L DIAGNOSTIC Recall IBD (inflammatory bowel disease) Health Maintenance Due Date Last Done Comments Zoster Vaccines (2 of 3) 11/09/2014 09/14/2014 COVID-19 Vaccine (2022- season) 2023 03/18/2022, 05/13/2021, [...] this encounter Medical Devices Implanted Type Area Gripper Machine Operator Device Identifier Shelf Expiration Date Model / Serial / Lot Patch Pericard 8x14cm [id number] - [id number] Implanted:Qty : 1 on 04/17/2010 at [place] [facility] Tissue - Non Human N/A: Chest [employer] 12/05/2014 -[id number] / / [id number] Sut Steel 6 M654g - [id number] Implanted:Qty : 4 on 04/17/2010 at [place] [facility] N/A: Chest DO NOT USE 06/17/2014 M654G / / [id number] documented as of this encounter Advance Directives Documents on File Type Date Recorded Patient Vice President Tax Expl anation Advance Directives and Living Will 11/01/2008 LIVING WILL Latest Code Status on File Code Status Date Activated Date Inactivated Comments Full Code 04/17/2010 12:37 PM 04/22/2010 9:47 PM Th is order reflects the patients wishes and were consensually agreed upon. Care Teams Multiple Slide Operator Relationship Specialty Start Date End Date Maxwell Sellers MD [address] [facility] [place] [address] PCP - General Internal Medicine 01/03/21 documented as of this encounter
--- OUTSIDE RECORDS SUMMARY | 2023-11-11 05:51 | External Medical Summary | Summary of Care ---
Author Name Unknown Organization [facility] Address [address] [place] [address] Phone [phone] Care Team Providers Care Professional Soccer Player Name Role Phone Maxwell Sellers MD Primary Care Provider + Reason for Visit * Reason Comments Medication Administration Encounter Details Date Type Department Care Team (Late st Contact Info) Description 05/29/2023 9:40 AM EST Nurse Only Ancillary [facility] [address] [place] [address] [facility], Nurse [facility] [address] [place] [address] Medication Administration Allergies Active Allergy Reactions Criticality Noted Date [...] inj 1,000 mcgIndications:B12 deficiency 1000 mcg IM [id number] 04/19/2023 03/19/2024 Active documented as of this [...] 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 Henriquez [place] N/S asymptomatic en plaque cavernous sinus meningioma [...] well after 03/29 surgical repair LOC PRIM [id number] 05/09/200310/2016 Esotropia 01/13/2003 02/10/2017 Overview: 11/24- R [...] 30 Mcg, IM, 12 yrs and above ([facility]) 03/18/2022 PPD 02/14/2011 Pneumococcal Conjugate Vacc, 13 [...] as of this encounter Progress Notes * Lizbeth Beatty LPN - 05/29/2023 10:24 AM EST B12 injection given as per Dr. crockett. documented in this encounter Plan of Treatment Upcoming Encounters Date Type Department Care Team (Late st Contact Info) Description 11/09/2023 11:20 AM EDT Office Visit General Internal Medicine [facility] [address] [facility] [place] [address] Leyda Ahn MD [address] [facility] [place] [address] 05/03/2024 9:00 AM EST Office Visit Neurology [facility] [address] [facility] [place] [address] Ellen Carias PA-C [address] [place] [address] Scheduled Procedures Name Priority Associated Diagnoses Date/Ti [...] this encounter Medical Devices Implanted Type Area Binding Cementer French Cord Device Identifier Shelf Expiration Date Model / Serial / Lot Patch Pericard 8x14cm [id number] - [id number] Implanted:Qty : 1 on 04/17/2010 at OR [place] Tissue - Non Human N/A: Chest [employer] 12/05/2014 PC-[id number] / / [id number] Sut Steel 6 M654g - [id number] Implanted:Qty : 4 on 04/17/2010 at OR [place] N/A: Chest DO NOT USE 06/17/2014 M654G / / [id number] documented as of this encounter Administered Medications Active Administered Medications - up to 3 most recent administrations Medication Order MAR Action Action Date Dose Rate Site vitamin b-12 (Cyanocobalamin) inj 1,000 mcg 1,000 mcg, Intramuscular, [id number], First dose on 04/19/23 at 0000, Last dose on 02/21/24 at 0000, For 12 doses Given 05/29/2023 10:22 AM EST 1,000 mcg Deltoid Left Upper Given 05/22/2023 10:24 AM EST 1,000 mcg D eltoid Left Upper Given 05/15/2023 11:48 AM EST 1,000 mcg D eltoid Left Upper documented in this encounter Advance Directives Documents on File Type Date Recorded Patient Professional Security Officer Expl anation Advance Directives and Living Will 11/01/2008 LIVING WILL Latest Code Status on File Code Status Date Activated Date Inactivated Comments Full Code 04/17/2010 12:37 PM 04/22/2010 9:47 PM T his order reflects the patients wishes and were consensually agreed upon. Care Teams Professional Soccer Player Relationship Specialty Start Date End Date Maxwell Sellers MD [address] [place], [place] [id number] PCP - General Internal Medicine 01/03/21 documented as of this encounter
--- OUTSIDE RECORDS SUMMARY | 2023-11-11 05:51 | External Medical Summary | Summary of Care ---
Author Name Unknown Organization [facility] Address [address] [place] [address] Phone [phone] Care Team Providers Care Supervisor Backfilling Name Role Phone Maxwell Sellers MD Primary Care Provider + Reason for Visit * Reason Comments Medication Administration Encounter Details Date Type Department Care Team (Late st Contact Info) Description 05/29/2023 9:40 AM EST Nurse Only Ancillary [facility] [address] [place] [address] [facility], Nurse [facility] [address] [place] [address] Medication Administration Allergies Active Allergy Reactions Criticality [...] the morning. --dec 05/15/2023. 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 Henriquez [facility] [place] asymptomatic en plaque cavernous sinus meningioma [...] well after 03/29 surgical repair LOC PRIM [id number] 05/09/2003 1010/2016 Esotropia 01/13/2003 02/10/2017 Overview: 11/24- [...] 30 Mcg, IM, 12 yrs and above ([employer]) 03/18/2022 PPD 02/14/2011 Pneumococcal Conjugate Vacc, 13 [...] AM EDT Office Visit General Internal Medicine [facility] [address] [facility] [place] [address] Leyda Ahn MD [address] [facility] [place] [address] 05/03/2024 9:00 AM EST Office Visit Neurology [facility] [address] [facility] [place] [address] Ellen Carias PA-C [address] [place] [address] Scheduled Procedures Name Priority Associated Diagnoses Date/Ti [...] this encounter Medical Devices Implanted Type Area Fender Finisher Device Identifier Shelf Expiration Date Model / Serial / Lot Patch Pericard 8x14cm [id number] - [id number] Implanted:Qty : 1 on 04/17/2010 at [place] [facility] Tissue - Non Human N/A: Chest [employer] 12/05/2014 -[id number] / / [id number] Sut Steel 6 M654g - [id number] Implanted:Qty : 4 on 04/17/2010 at [place] [facility] N/A: Chest DO NOT USE 06/17/2014 M654G / / [id number] documented as of this encounter Administered Medications Active Administered Medications - up to 3 most recent administrations Medication Order MAR Action Action Date Dose Rate Site vitamin b-12 (Cyanocobalamin) inj 1,000 mcg 1,000 mcg, Intramuscular, [id number], First dose on 04/19/23 at 0000, Last dose on 02/21/24 at 0000, For 12 doses Given 05/29/2023 10:22 AM EST 1,000 mcg Deltoid Left Upper Given 05/22/2023 10:24 AM EST 1,000 mcg D eltoid Left Upper Given 05/15/2023 11:48 AM EST 1,000 mcg D eltoid Left Upper documented in this encounter Advance Directives Documents on File Type Date Recorded Patient Substitute Nurse Expl anation Advance Directives and Living Will 11/01/2008 LIVING WILL Latest Code Status on File Code Status Date Activated Date Inactivated Comments Full Code 04/17/2010 12:37 PM 04/22/2010 9:47 PM Th is order reflects the patients wishes and were consensually agreed upon. Care Teams Supervisor Backfilling Relationship Specialty Start Date End Date Maxwell Sellers MD [address] [facility] [place] [address] PCP - General Internal Medicine 01/03/21 documented as of this encounter
--- OUTSIDE RECORDS SUMMARY | 2023-11-11 05:52 | External Medical Summary | Summary of Care ---
Author Name Unknown Organization [facility] Address [address] [place] [address] Phone [phone] Care Team Providers Care Ash Conveyor Operator Name Role Phone Maxwell Sellers MD Primary Care Provider + Reason for Visit * Reason Comments Follow Up The pt stated she is here for a follow up appointment and to get a b12 injection. The pt also had a recent fall in March and hit the back of her head Encounter Details Date Type Department Care Team (Latest Contact Info) Description 05/15/2023 10:40 AM EST Office Visit General Internal Medicine [facility] [place] [address] [place] [id number] Leyda Ahn MD [address] [place] [address] Hypothyroidism due to acquired atrophy of thyroid*; B12 deficiency; Memory loss; Paroxysmal atrial fibrillation (HCC); History of transcatheter aortic valve replacement (TAVR); Crohn's disease of large intestine without complication (HCC); Dizziness; Cervical spinal stenosis; Spasm of muscle; Vitamin D deficiency; Nocturnal hypoxemia; Pulmonary hypertension (HCC) Allergies Active Allergy Reactions Criticality Noted Date Comments Pantoprazole 01/29/2022 Itchiness, rash Penicillins Hives 01/13/2003 hives documented as of this encounter (statuses as of 05/15/2023) Medications Medication Sig Dispensed Refills Start Date [...] --dec 05/15/2023. 90 Tablet 3 05/15/2023 Active Metoprolol Succinate ER 25 MG Oral Tablet Extended Release 24 Hour (toPROL XL)Indications:S/ P aortic valve replacement,Parox ysmal atrial fibrillation (HCC) Take 1 Tablet by mouth in the morning. 90 Tablet 3 10/01/2022 3 Discontinu ed(Refill) Hospital, Clinic, or Other Facility Administered Medication Ordered Dose Route Frequency Start Date End Date Status albuterol sulfate (PROVENTIL) (2.5 MG/3ML) 0.083% inhalation solution 2.5 mgIndications:COPD, severity to be determined (HCC),Chondrosarcoma (HCC),Pulmonary hypertension (HCC) 2.5 mg NEBULIZER PRN 01/07/2019 Active vitamin b-12 (Cyanocobalamin) inj 1,000 mcgIndications:B12 deficiency 1000 mcg IM [id number] 04/19/2023 03/19/2024 Active documented as of this encounter (statuses as of 05/15/2023) Active Problems Problem Noted Date Diagnosed Date [...] as of this encounter (statuses as of 05/15/2023) Resolved Problems Problem Noted Date Diagnosed Date Resolved Date Permanent atrial fibrillation 03/28/2019 10/28/2021 Chronic systolic CHF (conges tive heart failure) 03/28/2019 01/03/2021 CHF with right heart failure 03/21/2019 03/12/2022 Atherosclerosis of aorta 11/16/2018 Carpal tunnel syndrome 03/28/201302/10 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 Henriquez [facility] N/S asymptomatic en [...] well after 03/29 surgical repair LOC PRIM [id number] 05/09/2003 1010/2016 Esotropia 01/13/2003 02/10/2017 Overview: 11/24- R sixth nerve palsy- improving MRI/MRA negative Alopecia 01/13/2003 02/10/2017 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/2002 09/20/2018 Overview: not bx proven DIVERTICULOSIS OF COLON 06/16/200202/22 Menopause 06/16/2002 10/23/2021 Abnormal weight gain 06/16/2002 017 Other ulcerative colitis with rectal bleeding 03/12/2022 documented as of this encounter (statuses as of 05/15/2023) Immunizations Name Administration Dates Next Due COVID-19 mRNA, LNP-s, No Pre serve, 2-Dose Series (Moderna) 08/30/2020,07/25/2020 COVID-19, mRNA, LNP-s, PF, B ooster, 100mcg/0.5mg (Moderna) 05/13/2021 Covid-19, Mrna, Lnp-s, Pf, B ivalent, 30 Mcg, IM, 12 yrs and above ([place]) 03/18/2022 PPD 02/14/2011 Pneumococcal Conjugate Vacc, 13 [...] money to buy more. Never true 03/25/20 Within the past 12 months, t he [...] Sign Reading Time Taken Comments Blood Pressure 95/53 05/15/2023 1:37 PM EST Pulse 61 05/15/2023 1:37 PM EST Temperature 36.1 C (97 F) 05/15/2023 10:53 AM EST Respiratory Rate - - Oxygen Saturation 100% 05/15/2023 10:53 AM EST Inhaled Oxygen Concentration - - Weight 58.2 kg (128 lb 6.4 oz) 05/15/2023 10:53 AM EST Height - - Body Mass Index 19.52 01/21/2023 10:04 AM EDT documented in this encounter Progress Notes * Leyda Ahn MD - 05/15/2023 11:05 AM EST SUBJECTIVE: Nereida Stephen is a 83 year old female. Chief Complaint Patient presents with Follow Up The pt stated she is here for a follow up appointment and to get a b12 injection. The pt also had arecent fall in March and hit the back of her head HPI: as above Wt Readings from Last 10 Encounters: 05/15/23 58.2 kg (128 lb 6.4 oz) 05/05/23 56.6 kg (124 lb 12.8 oz) 02/16/23 57.5 kg (126 lb 11.2 oz) 01/21/23 55.4 kg (122 lb 3.2 oz) 10/29/22 56.5 kg (124 lb 9.6 oz) 10/27/22 59 kg (130 lb 1.6 oz) 10/06/22 57.2 kg (126 lb) 10/01/22 55.8 kg (123 lb 1.6 oz) 05/13/22 57.8 kg (127 lb 8 oz) 03/25/22 58.2 kg (128 lb 3.2 oz) BP Readings from Last 5 Encounters: 05/15/23 108/62 05/05/23 108/62 02/16/23 110/68 01/27/23 88/52 01/21/23 100/52 I saw her for hosp fu 10/01/22 - [facility] 09/11/2022, discharged 09/19/2022 to the 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 Discharged on aspirin 81 mg daily 09/16/2022, metoprolol XL 25 mg half tablet daily--she is still taking 1 tablet daily, Lasix only as needed. Saw Cardiology in September at [facility] and at [facility] in November, medication list reviewed Past medical history as noted below, med list updated, diagnosed with Crohn's colitis in December 2021. Taking gabapentin only 1 tablet at night, currently not on oxygen--was on oxygen started about 5 years ago at night, she goes to [place] May to August and had declined it, [facility]. And states that is the remain reason they are here. --had desaturation on exertion and st O2 2 lts with exertion., no w ff Reviewed last pulmonology notes from february, 6 minute walk test did not show desaturation at the time, nocturnal pulse oximetry was ordered but not completed---done 10/09/2022, fitness leader advised to start oxygen 2 L at night 10/02/22-no DVT left leg on Venous doppler. 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 Gives history of fall about a month ago, she states she tripped and fell backwards hitting her the back of her head, did not lose consciousness, had a soft tissue swelling which gradually resolved. Saw neurology May 05, felt memory changes were stable. History of chronic neck pain, has severe spinal stenosis, follows up with pain Clinic at [facility], got injection in January, taking gabapentin only 1 daily. Complains of dizziness when she stood up to get onto the exam table, weight is stable but noted taking metoprolol xl 25mg 1 daily instead of half as was advised by insulation supervisor. TSH Results: Lab Results Component Value Date/Time TSH - [facility] 0.31 02/16/2023 11:52 AM TSH - [facility] 0.37 10/02/2022 10:44 AM TSH - [facility] 1.68 10/23/2021 09:49 AM TSH - [facility] 0.87 06/15/2020 01:48 PM TSH - [facility] 2.71 06/08/2020 11:45 AM TSH - [facility] 3.10 02/22/2020 10:36 AM TSH - [facility] 0.174 (A) 11/12/2021 12:00 AM TSH - [facility] 1.500 09/23/2018 12:00 AM Hemoglobin Results: Lab Results Component Value Date/Time HGB - [facility] 13.3 12/18/2022 10:42 AM HGB - [facility] 11.6 (L) 10/02/2022 10:44 AM HGB - [facility] 11.2 (L) 02/19/2022 01:35 PM HGB - [facility] 15.2 06/08/2020 11:45 AM HGB - [facility] 14.2 02/22/2020 10:36 AM HGB - [facility] 12.5 12/28/2018 10:26 AM Component Latest Ref Rng 11/06/2021 10/02/2022 02/16/2023 25-Hydroxy Vitamin D >19 ng/mL 25 14 (L) 53 Legend: (L) Low Results for orders placed or performed in visit on 02/16/23 25-HYDROXY VITAMIN D Result Value Ref Range 25-Hydroxy Vitamin D 53 >19 ng/mL DIGOXIN LEVEL Result Value Ref Range Digoxin Level <0.4 (L) 0.5 - 1.1 ng/mL TSH WITH FREE T4 IF INDICATED Result Value Ref Range TSH 0.31 0.27 - 4.20 uIU/mL VITAMIN B12 Result Value Ref Range Vitamin B12 192 (L) 232 - 1,245 pg/mL VITAMIN B1 (THIAMINE), BLOOD, LC/MS/MS Result Value Ref Range Vitamin B1 (Thiamine),B 115 78 - 185 nmol/L COMPREHENSIVE METABOLIC PANEL Result Value Ref Range BUN 21 (H) 6 - 20 mg/dL Creatinine 0.8 0.5 - 1.0 mg/dL Estimated Glomerular Filtration Rate 74 >=60 mL/min Sodium 141 135 - 146 mmol/L Potassium 4.3 3.5 - 5.1 mmol/L Chloride 102 98 - 107 mmol/L CO2 28 22 - 32 mmol/L Anion Gap 11 7 - 15 mmol/L Glucose 83 70 - 120 mg/dL Albumin 4.6 3.8 - 5.0 g/dL AST 25 10 - 35 U/L Alkaline Phosphatase 71 35 - 130 U/L Bilirubin, Total 1.3 (H) <=1.2 mg/dL Calcium 9.6 8.4 - 10.2 mg/dL Protein 6.9 6.0 - 8.3 g/dL ALT 17 10 - 35 U/L CULTURE, URINE, QUANTITATIVE Specimen: Urine, Clean Catch Result Value Ref Range Culture Growth No significant growth *Note: Due to a large number of results and/or encounters for the requested time period, some results have not been displayed. A complete set of results can be found in Results Review. 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) Z95.2 B12 deficiency E53.8 Meningioma (HCC) D32.9 Right internal carotid occlusion I65.21 Paroxysmal atrial fibrillation (HCC) I48.0 Crohn's disease of large intestine without complication ([facility]) K50.10 Idiopathic peripheral neuropathy G60.9 COPD, group B, by GOLD 2017 classification ([facility]) J44.9 Pulmonary hypertension ([facility]) I27.20 Stenosis of prosthetic aortic valve T82.857A Spinal stenosis of lumbar region without neurogenic claudication M48.061 Current Outpatient Medications Medication Sig Dispense Refill [...] of Breath or Wheezing. 20.1 g 3 Gabapentin 100 MG Oral Capsule (Neurontin) 1 tab am 1 tab noon x 7days then 1 tab three times daily(Patient taking differently: Take 1 Capsule by mouth in the morning.) 270 Capsule 1 Mesalamine 1.2 GM Oral Tablet Delayed Release (Lialda) Take 2 Tablets by mouth in the morning. 180 Tablet 3 Levothyroxine Sodium 112 MCG Oral Tablet (Levoxyl) Take 1 Tablet by mouth daily first thing in the morning. (at least 30 min prior to breakfast or other meds) 90 Tablet 3 Polyethylene Glycol 3350 17 GM/SCOOP Oral Powder Take 17 g by mouth as needed. Metoprolol Succinate ER 25 MG Oral Tablet Extended Release 24 Hour (toPROL XL) Take 1 Tablet by mouth in the morning. 90 Tablet 3 Aspirin 81 MG Oral Tablet [...] 3 days/week until leg edema improves) 30 [id number] Current Facility-Administered Medications Medication Dose Route Frequency Provider Last Rate Last Admin albuterol sulfate (PROVENTIL) (2.5 MG/3ML) 0.083% inhalation solution 2.5 mg 2.5 mg Nebulizer PRN Kelsey Bowles [place], DO 2.5 mg at 11/12/21 1153 vitamin b-12 (Cyanocobalamin) inj 1,000 mcg 1,000 mcg Intramuscular Q4 Weeks Yahir Collado PA-C Review of patient's allergies indicates: Allergen Reactions Pantoprazole Itchiness, rash Penicillins Hives hives Discussed about covid booster, RSV vaccine. May have had shingrix at Immunization History Administered Date(s) Administered COVID-19 mRNA, LNP-s, No Preserve, 2-Dose Series (Moderna) 07/25/2020, 08/30/2020 COVID-19, mRNA, LNP-s, PF, Booster, 100mcg/0.5mg (Moderna) 05/13/2021 Covid-19, Mrna, Lnp-s, Pf, Bivalent, 30 Mcg, IM, 12 yrs and above (Pfizer) 03/18/2022 PPD 02/14/2011 Pneumococcal Conjugate Vacc, 13 Valent (Prevnar) 11/16/2014 Pneumococcal Polysaccharide PPV23 (Pneumovax) 10/21/2000, 02/22/2007, 12/06/2021 Season Influenza, Quad, PF, Adjuvanted, 65+ Yrs, IM (FLUAD) 02/20/2020 Seasonal Influenza, PF, 6 M & above, IM , (FluLaval or Fluzone) 02/09/2018, 02/16/2019 Seasonal Influenza, Quadrivalent Hd (Fluzone Hd) 02/27/2021, 02/19/2022, 02/16/2023 Seasonal Influenza, Quadrivalent, No Preserve, IM 03/20/2015, 03/23/2016, 02/10/2017 Seasonal Influenza, Split, IIV3, With Preserve, Inj 03/19/2005, 03/17/2006, 02/25/2007, 03/23/2008,04/04/2009, 04/29/2010, 02/11/2011, 03/15/2012, 02/08/2013 Seasonal Influenza, Trivalent, High Dose, No Preserve, IM 01/24/2020 TD - Tetanus/Diptheria (ADULT) 10/13/2007 TDAP (age 10 and older)(Boostrix) 09/14/2014, 03/02/2019 Varicella Zoster Vaccine (Adult) 09/14/2014 Vitamin B12 Injection 11/25/2011, 12/03/2011, 03/15/2012 OBJECTIVE: BP 108/62 | Pulse 64 | Temp 36.1 C (97 F) | Wt 58.2 kg (128 lb 6.4 oz) | SpO2 100% | BMI 19.52 kg/m | BSA 1.67 m PHYSICAL EXAM: General: alert, healthy, no distress, well nourished and well developed Head: Normocephalic, atraumatic, scalp-no swelling Eye Exam: PERRLA, EOMI, Conjunctiva are pink and non-injected, sclera clear Ears: External ears normal, Canal clear, Tm normal Nose: no mucosal erythema, no mucosal edema, no purulent discharge Oropharynx: no exudate and no erythema Neck: supple, no bruits, no JVD, thyroid normal size, non-tender, without nodularity Lymph: No palpable lymphadenopathy. Heart: Regular rhythm and rate, 3/6 SM base and no gallops Lungs: lungs clear to auscultation Abdomen: Soft, non-tender, MLSUV scar normal bowel sounds, no masses or organomegaly, no bruits Extremities: no edema, no clubbing, no cyanosis. Neuro Exam: alert & oriented x 3 with fluent speech, no focal motor/sensory deficits, gait normal Skin: skin color, texture-dry, turgor are normal, no rashes ASSESSMENT/PLAN: Hypothyroidism due to acquired atrophy of thyroid (Primary) - TSH WITH FREE T4 IF INDICATED; Future; Expected date: 05/15/2023 If low normal consider decreasing dose B12 deficiency See hpi B12 inj today Memory loss Stable , f/b neuro Paroxysmal atrial fibrillation (HCC) - Metoprolol Succinate ER 25 MG Oral Tablet Extended Release 24 Hour (toPROL XL); Take 0.5 Tablets by mouth in the morning. --05/15/2023. Was taking 1/d History of transcatheter aortic valve replacement (TAVR) Ct fu cardiology Crohn's disease of large intestine without complication (HCC) Ct fu GI Dizziness - 3 POSITIONAL BLOOD PRESSURE--no significant orthostatic changes but was slightly lower, decrease metoprolol as advised, f/u PCP in [place] for recheck Cervical spinal stenosis Spasm of muscle F/b pain clinic. Do not take more than 1000 mg Tylenol 1 dose, maximum 3gm/d Advised to apply warm moist compress to the affected areas for 10- min tid prn Consider PT in [place] Vitamin D deficiency - 25-HYDROXY VITAMIN D; Future; Expected date: 05/15/2023 Nocturnal hypoxemia Pulmonary hypertension (HCC) Resume oxygen at night 40 min total time spent with patient, time spent reviewing subspecialty notes, diagnostic studies done, follow-up orders/medication refills,over 1/2 time spent in counseling, coordinating care. Follow Up: Return if symptoms worsen or fail to improve, for Labs Today. | For: Labs Today | Check-out note: Jerald appt pcp next available 3-6 mths (This note was completed using the dictation program Fluency Direct. As such, there may be misspellings, word substitutions, or other variations that should not change the essence of the clinical content of this encounter note. If there is need for further clarification, please direct questions to the provider listed above.) Patient and / caregiver verbalize understanding of above instructions and agrees with plan of care. Leyda Ahn MD 05/15/2023 documented in this encounter Nursing Notes * Jamir Vega LPN - 05/15/2023 10:53 AM EST Chief Complaint Patient presents with Follow Up The pt stated she is here for a follow up appointment and to get a b12 injection documented in this encounter Plan of Treatment Upcoming Encounters Date Type Department Care Team (Late st Contact Info) Description 05/20/2023 11:30 AM EST Nurse Only Ancillary State Deena Tomas [address] [place] [id number] Nurse, Int Med [address] [place] [place] [id number] 11/09/2023 11:20 AM EDT Office Visit General Internal Medicine [place] Deena Tomas [address] [place] [place] [address] [address] Leyda Ahn MD [address] [place] [id number] 05/03/2024 9:00 AM EST Office Visit Neurology [facility] [place] [address] [place] [address] Ellen Carias PA-C [address] [id number] Pending Results Name Type Priority Associated Diagnoses Date /Time TSH WITH FREE T4 IF INDICATED Lab Routine Hypothyroidism due to acquired atrophy of thyroid 05/15/2023 12:02 PM EST 25-HYDROXY VITAMIN D Lab Routine Vitamin D deficiency 05/15/2023 12:02 PM EST Scheduled Orders Name Type Priority Associated Diagnoses Orde r Schedule TSH WITH FREE T4 IF INDICATED Lab Routine Hypothyroidism due to acquired atrophy of thyroid Expected: 05/15/2023 (Approximate), Expires: 05/14/2024 3 POSITIONAL BLOOD PRESSURE Procedures Routine Dizziness Ordered: 05/15/2023 25-HYDROXY VITAMIN D Lab Routine Vitamin D deficiency Expected: 05/15/2023 (Approximate), Expires: 05/14/2024 Scheduled Procedures Name Priority Associated Diagnoses Date/Ti me COLONOSCOPY FLEXIBLE PROXIMA L DIAGNOSTIC Recall IBD (inflammatory bowel disease) Health Maintenance Due Date Last Done Comments Zoster Vaccines (2 of 3) 11/09/2014 09/14/2014 Depression Screening 01/06/2023 05/15/2023 COVID-19 Vaccine ( season) 2023 03/18/2022, 05/13/2021, 08/30/2020, Additional history exists DXA Scan 08/10/2023 08/09/2020, 10/23, 11/07/2009, Additional history exists COLONOSCOPY-EVERY 2 YRS AGES 18-100 12/26/2023 12/25/2021, 12/25/2021, 09/24/2018, Additional history exists TSH 02/17/2024 02/16/2023, 09/22, 11/12/2021, Additional history exists O2 ASSESSMENT COMPLETED IN PAST YEAR FOR COPD 05/05/2024 05/15/2023 DTaP,Tdap,and Td Vaccines (3 - Td or [...] this encounter Medical Devices Implanted Type Area Fuel Cell Builder Device Identifier Shelf Expiration Date Model / Serial / Lot Patch Pericard 8x14cm [id number] - [id number] Implanted:Qty : 1 on 04/17/2010 at [facility] [facility] Tissue - Non Human N/A: Chest [employer] 12/05/2014 [id number] / / [id number] Sut Steel 6 [id number] - [id number] Implanted:Qty : 4 on 04/17/2010 at [facility] [place] [facility] N/A: Chest DO NOT USE 06/17/2014 [id number] / / [id number] documented as of this encounter Visit Diagnoses Diagnosis Hypothyroidism due to acquired atrophy of thyroid- Primary B12 deficiency Other B-complex deficiencies Memory loss Paroxysmal atrial fibrillation (HCC) Atrial fibrillation History of transcatheter aortic valve replacement (TAVR) Crohn's disease of large intestine without complication (HCC) Regional enteritis of large intestine Dizziness Dizziness and giddiness Cervical spinal stenosis Spinal stenosis in cervical region Spasm of muscle Vitamin D deficiency Unspecified vitamin D deficiency Nocturnal hypoxemia Hypoxemia Pulmonary hypertension (HCC) Other chronic pulmonary heart diseases documented in this encounter Administered Medications Active Administered Medications - up to 3 most recent administrations Medication Order MAR Action Action Date Dose Rate Site vitamin b-12 (Cyanocobalamin) inj 1,000 mcg 1,000 mcg, Intramuscular, [id number], First dose on 04/19/23 at 0000, Last dose on 02/21/24 at 0000, For 12 doses Given 05/15/2023 11:48 AM EST 1,000 mcg Deltoid Left Upper documented in this encounter Advance Directives Documents on File Type Date Recorded Patient Glove Finisher Expl anation Advance Directives and Living Will 11/01/2008 LIVING WILL Latest Code Status on File Code Status Date Activated Date Inactivated Comments Full Code 04/17/2010 12:37 PM 04/22/2010 9:47 PM Th is order reflects the patients wishes and were consensually agreed upon. Care Teams Ash Conveyor Operator Relationship Specialty Start Date End Date Maxwell Sellers MD [address] [place], [place] [phone] PCP - General Internal Medicine 01/03/21 documented as of this encounter"
--- OUTSIDE RECORDS SUMMARY | 2023-11-11 05:52 | External Medical Summary ---
Author Name Unknown Address Unknown Organization [id number]:[facility] [place] [address] [facility] [address] Laboratory Report Ordering Provider Test Date Status BREANNA CHISHOLM 05/15/2023 12:02:32 Final Observation Date Value Abnormality Reference (Units ) Status TSH 05/15/2023 12:02:32 0.63 0.27-4.20 (uIU/mL) Final Performing Location [facility] [place] [address] [facility] [address]
--- OUTSIDE RECORDS SUMMARY | 2023-11-11 05:52 | External Medical Summary | Summary of Care ---
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 Henriquez [facility] N/S asymptomatic en plaque cavernous sinus [...] well after 03/29 surgical repair LOC PRIM [id number] 05/09/2003 1010/2016 Esotropia 01/13/2003 02/10/2017 Overview: 11/24- [...] 30 Mcg, IM, 12 yrs and above (Glofox) 03/18/2022 PPD 02/14/2011 Pneumococcal Conjugate Vacc, 13 [...] Sign Reading Time Taken Comments Blood Pressure 102/51 05/15/2023 11:41 AM EST Pulse 64 05/15/2023 10:53 AM EST Temperature 36.1 C (97 F) 05/15/2023 [...] saw her for hosp fu 10/01/22 - [facility] 09/11/2022, discharged 09/19/[address] [facility] and discharge to home 09/29/2022.History of [...] as needed. Saw Cardiology in September at [facility] and at [facility] in November, medication list reviewed Past medical history as noted below, med list updated, diagnosed with Crohn's colitis in December 2021. Taking gabapentin only 1 tablet at night, currently not on oxygen--was on oxygen started about 5 years ago at night, she goes to [place] May to August and had declined it, [facility]. And states that is the remain reason they are here. --had desaturation on exertion and st O2 2 lts with exertion., no w ff Reviewed last pulmonology notes from february, 6 minute walk test did not show desaturation at the time, nocturnal pulse oximetry was ordered but not completed---done 10/09/2022, log cutter advised to start oxygen 2 L at night 10/02/22-no DVT left leg on Venous doppler. 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, got injection in January, taking gabapentin only 1 daily. Complains of dizziness when she stood up to get onto the exam table, weight is stable but noted taking metoprolol xl 25mg 1 daily instead of half as was advised by supervisor fabrication. 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 T82.857A [...] 3 days/week until leg edema improves) 30 [id number] Current Facility-Administered Medications Medication Dose Route Frequency [...] decrease metoprolol as advised, f/[place] in [place] recheck Cervical spinal stenosis Spasm of [...] 05/20/2023 11:30 AM EST Nurse Only Ancillary [facility] [place] [address] [place] [address] Nurse, Int Med [address] [place] [address] 11/09/2023 11:20 AM EDT Office Visit General Internal Medicine Carmen Medina [place] [address] [place] [address] [address] Leyda Ahn MD 200 [facility] [place] [address] 05/03/2024 9:00 AM EST Office Visit Neurology [facility] [place] [place] [address] [facility] [address] Ellen Carias PA-C [address] [place] [address] Pending Results Name Type Priority Associated Diagnoses [...] this encounter Medical Devices Implanted Type Area Barrel Maker Device Identifier Shelf Expiration Date Model / Serial / Lot Patch Pericard 8x14cm [id number] - [id number] Implanted:Qty : 1 on 04/17/2010 at OR [facility] Tissue - Non Human N/A: Chest [employer] 12/05/2014 [id number] / / [id number] Sut Steel 6 [id number] - [id number] Implanted:Qty : 4 on 04/17/2010 at OR [facility] N/A: Chest DO NOT USE 06/17/2014 [id number] / / [id number] documented as of this encounter Visit Diagnoses [...] (Cyanocobalamin) inj 1,000 mcg 1,000 mcg, Intramuscular, [id number], First dose on 04/19/23 at 0000, Last dose on 02/21/24 at 0000, For 12 doses Given 05/15/2023 11:48 AM EST 1,000 mcg Deltoid Left Upper documented in this encounter Advance Directives Documents on File Type Date Recorded Patient Glass Tinter Expl anation Advance Directives and Living Will 11/01/2008 LIVING WILL Latest Code Status on File Code Status Date Activated Date Inactivated Comments Full Code 04/17/2010 12:37 PM 04/22/2010 9:47 PM Th is order reflects the patients wishes and were consensually agreed upon. Care Teams Engineering Technician Parking Relationship Specialty Start Date End Date Maxwell Sellers MD 200 [facility], [place] [phone] PCP - General Internal Medicine 01/03/21 documented as of this encounter"
--- OUTSIDE RECORDS SUMMARY | 2023-11-11 05:52 | External Medical Summary | Summary of Care ---
Author Name Unknown Organization [facility] Address [address] [place] [address] Phone [phone] Care Team Providers Care Chemical Worker Name Role Phone Maxwell Sellers MD Primary Care Provider + Reason for Visit * Reason Comments Outpatient Testing Encounter Details Date Type Department Care Team (Late st Contact Info) Description 05/15/2023 12:00 PM EST Laboratory Laboratory [facility] [address] [place] [id number] [place], [facility] [address] [place] [address] Decreased platelet count (HCC); Hypothyroidism due to acquired atrophy of thyroid; Vitamin D deficiency Allergies Active Allergy Reactions Criticality Noted Date [...] inj 1,000 mcgIndications:B12 deficiency 1000 mcg IM [id number] 04/19/2023 03/19/2024 Active documented as of this [...] 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 [employer] Other*[id number] 04/08/2010 07/01/2016 Overview: Study Titile: [employer] Markers for Patients with Cardiovascular Disease Project # [id number] PI: Aleisha Loredo MD Please call [phone] with study related questions AORTIC VALVE STENOSIS [...] well after 03/29 surgical repair LOC PRIM [id number] 05/09/2003 1010/2016 Esotropia 01/13/2003 02/10/2017 Overview: 11/24- [...] Date Recorded PHQ Adult Total Score 0 01/06/2022 Hunger Vital Sign Answer Date Recorded Within [...] 05/20/2023 11:30 AM EST Nurse Only Ancillary [facility] 200 [facility] [place] [address] Nurse, Int Med 200 [facility] [place] [address] 11/09/2023 11:20 AM EDT Office Visit General Internal Medicine [facility] 200 [facility] [place] [address] Leyda Ahn MD 200 [facility] [place] [address] 05/03/2024 9:00 AM EST Office Visit Neurology [facility] 200 [facility] [place] [address] Ellen Carias PA-C [address] [facility] [place] [address] Pending Results Name Type Priority Associated Diagnoses Date /Time TSH WITH FREE T4 IF INDICATED Lab Routine Hypothyroidism due to acquired atrophy of thyroid 05/15/2023 12:02 PM EST 25-HYDROXY VITAMIN D Lab Routine Vitamin D deficiency 05/15/2023 12:02 PM EST Scheduled Procedures Name Priority Associated Diagnoses Date/Ti [...] this encounter Medical Devices Implanted Type Area Can Technician Device Identifier Shelf Expiration Date Model / Serial / Lot Patch Pericard 8x14cm [id number] - [id number] Implanted:Qty : 1 on 04/17/2010 at [place] [facility] Tissue - Non Human N/A: Chest [employer] 12/05/2014 -[id number] / / [id number] Sut Steel 6 [id number] - [id number] Implanted:Qty : 4 on 04/17/2010 at [place] [facility] N/A: Chest DO NOT USE 06/17/2014 [id number] / / [id number] documented as of this encounter Procedures Procedure Name Priority Date/Time Associated Diagnosis Comments DIFFERENTIAL, AUTOMATED Routine 05/15/2023 12:02 PM EST Decreased platelet count (HCC) CBC Routine 05/15/2023 12:02 PM EST Decreased platelet count (HCC) CBC Routine 05/15/2023 12:02 PM EST Decreased platelet count (HCC) documented in this encounter Results * (ABNORMAL) DIFFERENTIAL, AUTOMATED (05/15/2023 12:02 PM EST) WBC 5.39 4.00 - 10.80 K/uL 05/15/2023 12:08 PM EST [facility] 56-02 Neutrophils % 53.6 40.0 - 75.0 % 05/15/2023 12:08 PM EST [facility] 56-02 Lymphocytes % 32.1 18.0 - 42.0 % 05/15/2023 12:08 PM EST [facility] 56-02 Monocytes % 11.3(H) 1.0 - 11.0 % 05/15/2023 12:08 PM EST [facility] 56-02 Eosinophils % 1.3 0.0 - 6.0 % 05/15/2023 12:08 PM EST [facility] 56-02 Basophils % 1.7 0.0 - 2.0 % 05/15/2023 12:08 PM EST [facility] 56-02 Absolute Neutrophils 2.89 1.80 - 7.70 K/uL 05/15/2023 12:08 PM EST [facility] 56-02 Absolute Lymphocytes 1.73 1.00 - 4.80 K/ul 05/15/2023 12:08 PM EST [facility] 56-02 Absolute Monocytes 0.61 0.00 - 1.10 K/uL 05/15/2023 12:08 PM EST [facility] 56-02 Absolute Eosinophils 0.07 0.00 - 0.70 K/uL 05/15/2023 12:08 PM EST [facility] 56-02 Absolute Basophils 0.09 0.00 - 0.20 K/uL 05/15/2023 12:08 PM EST [facility] 56-02 Blood Venous blood specimen / Unknown Venipuncture / Unknown 05/15/2023 12:02 PM EST 05/15/2023 12:02 PM EST Maxwell Sellers MD LAB BLOOD ORDERA BLES [facility] [address] [place] [address] * CBC (05/15/2023 12:02 PM EST) WBC 5.39 4.00 - 10.80 K/uL 05/15/2023 12:08 PM [place] [address] RBC 4.14 3.85 - 5.15 M/uL 05/15/2023 12:[address] HGB 13.9 12.0 - 15.3 g/dL 05/15/2023 12:08 PM [place] [address] HCT 42.4 36.0 - 45.2 % 05/15/2023 12:[address] MCV 102.4 81.5 - 97.5 fL 05/15/2023 12:[address] MCH 33.6 27.0 - 34.0 pg 05/15/2023 12:08 PM [place] [address] MCHC 32.8 32.0 - 36.0 g/dL 05/15/2023 12:08 PM [place] [address] RDW 13.0 11.5 - 15.5 % 05/15/2023 12:[address] PLT 152 140 - 400 K/uL 05/15/2023 12:[address] MPV 8.7 6.6 - 11.1 fL 05/15/2023 12:08 PM [place] [address] Blood Venous blood specimen / Unknown Venipuncture / Unknown 05/15/2023 12:02 PM EST 05/15/2023 12:02 PM EST Maxwell Sellers MD LAB BLOOD ORDERA BLES Performing Organization Address City/State/[facility] Co de Phone Number [place] [address] [place] [address] documented in this encounter Visit Diagnoses Diagnosis Decreased platelet count (HCC) Thrombocytopenia, unspecified Hypothyroidism due to acquired atrophy of thyroid Vitamin D deficiency Unspecified vitamin D deficiency documented in this encounter Advance Directives Documents on File Type Date Recorded Patient Bobbin Disker Expl anation Advance Directives and Living Will 11/01/2008 LIVING WILL Latest Code Status on File Code Status Date Activated Date Inactivated Comments Full Code 04/17/2010 12:37 PM 04/22/2010 9:47 PM Th is order reflects the patients wishes and were consensually agreed upon. Care Teams Chemical Worker Relationship Specialty Start Date End Date Maxwell Sellers MD 200 [facility] [place] [address] PCP - General Internal Medicine 01/03/21 documented as of this encounter
--- OUTSIDE RECORDS SUMMARY | 2023-11-11 05:52 | External Medical Summary ---
Author Name Unknown Address Unknown Organization K01[place] [place] [address] [place] [address] Laboratory Report Ordering Provider Test Date Status BREANNA CHISHOLM 05/15/2023 12:02:32 Final Deficient: <20 ng/mL
Ins ufficient: 20-29 ng/mL
Recommended/Optimum:30-50 ng/mL

Vitamin D intoxication is rare. If suspicious of Vitamin D toxicity, evaluation of serum Calcium and PTH is recommended. Observation Date Value Abnormality Reference (Units ) Status 25-OH Vitamin D total 05/15/2023 12:02:32 41 >19 (ng/mL) Final Performing Location [facility] [place] [address] [place] [address]
--- OUTSIDE RECORDS SUMMARY | 2023-11-11 05:52 | External Medical Summary ---
Author Name Unknown Address Unknown Organization K01[place] [place] [address] [place] [address] Laboratory Report Ordering Provider Test Date Status CASE WHITLOCK 05/15/2023 12:02:32 Final Observation Date Value Abnormality Reference (Units ) Status Vitamin B12 05/15/2023 12:02:32 >2000 Above high normal 232-1245 (pg/mL) Final Performing Location LABORATORY C - [address] [place] [address]
--- OUTSIDE RECORDS SUMMARY | 2023-11-11 05:52 | External Medical Summary ---
Author Name Unknown Address Unknown Organization K09:[facility] [place] [address] Laboratory Report Ordering Provider Test Date Status CASE WHITLOCK 05/15/2023 12:02:32 Final Observation Date Value Abnormality Reference (Units ) Status SYNC LEUKOCYTES IN BLOOD BY AUTOMATED COUNT 05/15/2023 12:02:32 5.39 4.00-10.80 (K/uL) Final Segs 05/15/2023 12:02:32 53.6 40.0-75.0 (%) Final Lymphs % 05/15/2023 12:02:32 32.1 18.0-42.0 (%) Final Monos 05/15/2023 12:02:32 11.3 Above high normal 1.0-11.0 (%) Final Eosinophils 05/15/2023 12:02:32 1.3 0.0-6.0 (%) Final Basos 05/15/2023 12:02:32 1.7 0.0-2.0 (%) Final Absolute Segs 05/15/2023 12:02:32 2.89 1.80-7.70 (K/uL) Final Lymphs, absolute 05/15/2023 12:02:32 1.73 1.00-4.80 (K/ul) Final Monos, Abs 05/15/2023 12:02:32 0.61 0.00-1.10 (K/uL) Final Eos, Abs 05/15/2023 12:02:32 0.07 0.00-0.70 (K/uL) Final Basos, Abs 05/15/2023 12:02:32 0.09 0.00-0.20 (K/uL) Final Performing Location [facility] [place] [address]
--- OUTSIDE RECORDS SUMMARY | 2023-11-11 05:52 | External Medical Summary | Summary of Care ---
Author Name Unknown Organization [facility] Address [address] [place] [address] Phone [phone] Care Team Providers Care Mussel Farmer Name Role Phone Maxwell Sellers MD Primary Care Provider + Reason for Visit * Reason Comments Outpatient Testing Encounter Details Date Type Department Care Team (Late st Contact Info) Description 05/15/2023 12:00 PM EST Laboratory Laboratory [facility] [address] [place] [id number] [place], [address] [place] [address] Decreased platelet count (HCC); Hypothyroidism due to acquired atrophy of thyroid; Vitamin D deficiency; B12 deficiency Allergies Active Allergy Reactions Criticality Noted Date Comments Pantoprazole 01/29/2022 Itchiness, rash Penicillins Hives 01/13/2003 hives documented as of this encounter (statuses as of 05/19/2023) Medications Medication Sig Dispensed Refills Start Date [...] inj 1,000 mcgIndications:B12 deficiency 1000 mcg IM [id number] 04/19/2023 03/19/2024 Active documented as of this encounter (statuses as of 05/19/2023) Active Problems Problem Noted Date Diagnosed Date [...] as of this encounter (statuses as of 05/19/2023) Resolved Problems Problem Noted Date Diagnosed Date Resolved Date Permanent atrial fibrillation 03/28/2019 10/28/2021 Chronic systolic CHF (conges tive heart failure) 03/28/2019 01/03/2021 CHF with right heart failure 03/21/2019 03/12/2022 Atherosclerosis of aorta 11/16/2018 Carpal tunnel syndrome 03/28/201302/10 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 09/20/2018 Overview: not bx proven DIVERTICULOSIS OF COLON 06/16/200202/22 Menopause 06/16/2002 10/23/2021 Abnormal weight gain 06/16/2002 017 Other ulcerative colitis with rectal bleeding 03/12/2022 documented as of this encounter (statuses as of 05/19/2023) Immunizations Name Administration Dates Next Due COVID-19 [...] AM EDT Office Visit General Internal Medicine [facility] [address] [place] [address] Leyda Ahn MD [address] [place] [address] 05/03/2024 9:00 AM EST Office Visit Neurology [facility] [address] [place] [address] Ellen Carias PA-C [address] [facility] [place] [address] Scheduled Procedures Name Priority Associated Diagnoses Date/Ti [...] this encounter Medical Devices Implanted Type Area Head Athletic Trainer Device Identifier Shelf Expiration Date Model / Serial / Lot Patch Pericard 8x14cm [id number] - [id number] Implanted:Qty : 1 on 04/17/2010 at OR [facility] Tissue - Non Human N/A: Chest [employer] 12/05/2014 [id number] / / [id number] Sut Steel 6 [id number] - [id number] Implanted:Qty : 4 on 04/17/2010 at OR [facility] N/A: Chest DO NOT USE 06/17/2014 [id number] / / [id number] documented as of this encounter Procedures Procedure Name Priority Date/Time Associated Diagnosis Comments DIFFERENTIAL, AUTOMATED Routine 05/15/2023 12:02 PM EST Decreased platelet count (HCC) TSH WITH FREE T4 IF INDICATED Routine 05/15/2023 12:02 PM EST Hypothyroidism due to acquired atrophy of thyroid 25-HYDROXY VITAMIN D Routine 05/15/2023 12:02 PM EST Vitamin D deficiency CBC Routine 05/15/2023 12:02 PM EST Decreased platelet count (HCC) CBC Routine 05/15/2023 12:02 PM EST Decreased platelet count (HCC) VITAMIN B12 Routine 05/15/2023 12:02 PM EST B12 deficiency documented in this encounter Results * (ABNORMAL) VITAMIN B12 (05/15/2023 12:02 PM EST) Vitamin B12 >2,000(H) 232 - 1,245 pg/mL 05/15/2023 9:38 PM EST LABORATORY [facility] Blood Venous blood specimen / Unknown Venipuncture / Unknown 05/15/2023 12:02 PM EST 05/15/2023 12:02 PM EST Maxwell Sellers MD LAB BLOOD ORDERA BLES LABORATORY [facility] [address] [place] [address] * (ABNORMAL) DIFFERENTIAL, AUTOMATED (05/15/2023 12:02 PM EST) WBC 5.39 4.00 - 10.80 K/uL 05/15/2023 12:08 PM EST [facility] 56-02 Neutrophils % 53.6 40.0 - 75.0 % 05/15/2023 12:08 PM EST [facility] 56-02 Lymphocytes % 32.1 18.0 - 42.0 % 05/15/2023 12:08 PM EST [facility] 56-02 Monocytes % 11.3(H) 1.0 - 11.0 % 05/15/2023 12:08 PM EST [facility] 56-02 Eosinophils % 1.3 0.0 - 6.0 % 05/15/2023 12:08 PM EST [facility] 56-02 Basophils % 1.7 0.0 - 2.0 % 05/15/2023 12:08 PM EST [facility] 56-02 Absolute Neutrophils 2.89 1.80 - 7.70 K/uL 05/15/2023 12:08 PM EST [facility] 56-02 Absolute Lymphocytes 1.73 1.00 - 4.80 K/ul 05/15/2023 12:08 PM EST [facility] 56-02 Absolute Monocytes 0.61 0.00 - 1.10 K/uL 05/15/2023 12:08 PM EST [facility] 56-02 Absolute Eosinophils 0.07 0.00 - 0.70 K/uL 05/15/2023 12:08 PM EST [facility] 56-02 Absolute Basophils 0.09 0.00 - 0.20 K/uL 05/15/2023 12:08 PM EST [facility] 56-02 Blood Venous blood specimen / Unknown Venipuncture / Unknown 05/15/2023 12:02 PM EST 05/15/2023 12:02 PM EST Maxwell Sellers MD LAB BLOOD ORDERA BLES [facility] 56-[address] [place] [address] * CBC (05/15/2023 12:02 PM EST) WBC 5.39 4.00 - 10.80 K/uL 05/15/2023 12:08 PM EST [facility] 56 RBC 4.14 3.85 - 5.15 M/uL 05/15/2023 12:08 PM EST [address] HGB 13.9 12.0 - 15.3 g/dL 05/15/2023 12:08 PM EST [address] HCT 42.4 36.0 - 45.2 % 05/15/2023 12:08 PM EST [facility] 56 MCV 102.4 81.5 - 97.5 fL 05/15/2023 12:08 PM EST [facility] 56 MCH 33.6 27.0 - 34.0 pg 05/15/2023 12:08 PM EST [facility] 5602 MCHC 32.8 32.0 - 36.0 g/dL 05/15/2023 12:08 PM EST [facility] 56 RDW 13.0 11.5 - 15.5 % 05/15/2023 12:08 PM EST [facility] 56 PLT 152 140 - 400 K/uL 05/15/2023 12:08 PM EST [facility] 56 MPV 8.7 6.6 - 11.1 fL 05/15/2023 12:08 PM [facility] 56- Blood Venous blood specimen / Unknown Venipuncture / Unknown 05/15/2023 12:02 PM EST 05/15/2023 12:02 PM EST Maxwell Sellers MD LAB BLOOD ORDERA BLES [facility] [place] [address] [place] [address] * 25-HYDROXY VITAMIN D (05/15/2023 12:02 PM EST) 25-Hydroxy Vitamin D 41 >19 ng/mL 05/15/2023 9:38 PM EST LABORATORY [facility] Blood Venous blood specimen / Unknown Venipuncture / Unknown 05/15/2023 12:02 PM EST 05/15/2023 12:02 PM EST Narrative LABORATORY [facility] - 05/15/2023 9:38 PM EST Deficient: <20 ng/mL Insufficient: 20-29 ng/mL Recommended/Optimum:30-50 ng/mL Vitamin D intoxication is rare. If suspicious of Vitamin D toxicity, evaluation of serum Calcium and PTH is recommended. Leyda Ahn MD LAB BLOOD ORDERABLES Performing Organization Address [facility] Co de Phone Number LABORATORY [facility] [address] [place] [address] * TSH WITH FREE T4 IF INDICATED (05/15/2023 12:02 PM EST) TSH 0.63 0.27 - 4.20 uIU/mL 05/15/2023 9:38 PM EST LABORATORY [facility] Blood Venous blood specimen / Unknown Venipuncture / Unknown 05/15/2023 12:02 PM EST 05/15/2023 12:02 PM EST Leyda Ahn MD LAB BLOOD ORDERABLES Performing Organization Address [facility]/ZIP Co de Phone Number LABORATORY [facility] [address] [place] [address] documented in this encounter Visit Diagnoses Diagnosis Decreased platelet count (HCC) Thrombocytopenia, unspecified Hypothyroidism due to acquired atrophy of thyroid Vitamin D deficiency Unspecified vitamin D deficiency B12 deficiency Other B-complex deficiencies documented in this encounter Advance Directives Documents on File Type Date Recorded Patient Hydramatic Specialist Expl anation Advance Directives and Living Will 11/01/2008 LIVING WILL Latest Code Status on File Code Status Date Activated Date Inactivated Comments Full Code 04/17/2010 12:37 PM 04/22/2010 9:47 PM Th is order reflects the patients wishes and were consensually agreed upon. Care Teams Mussel Farmer Relationship Specialty Start Date End Date Maxwell Sellers MD [address] [place] [address] PCP - General Internal Medicine 01/03/21 documented as of this encounter
--- OUTSIDE RECORDS SUMMARY | 2023-11-11 05:52 | External Medical Summary ---
Author Name Unknown Address Unknown Organization K09:[facility] [address] Laboratory Report Ordering Provider Test Date Status CASE WHITLOCK 05/15/2023 12:02:32 Final Observation Date Value Abnormality Reference (Units ) Status WBC, Total 05/15/2023 12:02:32 5.39 4.00-10.8 0 (K/uL) Final RBC 05/15/2023 12:02:32 4.14 3.85-5.15 (M/uL) Final Hemoglobin 05/15/2023 12:02:32 13.9 12.0-15.3 (g/dL) Final HCT 05/15/2023 12:02:32 42.4 36.0-45.2 (%) Final MCV 05/15/2023 12:02:32 102.4 81.5-97.5 (fL) Final MCH 05/15/2023 12:02:32 33.6 27.0-34.0 (pg) Final MCHC 05/15/2023 12:02:32 32.8 32.0-36.0 (g/dL) Final RDW 05/15/2023 12:02:32 13.0 11.5-15.5 (%) Final Platelets 05/15/2023 12:02:32 152 140-400 (K /uL) Final MPV 05/15/2023 12:02:32 8.7 6.6-11.1 ( fL) Final Performing Location [facility] [address]
--- OUTSIDE RECORDS SUMMARY | 2023-11-11 05:52 | External Medical Summary | Summary of Care ---
Author Name Unknown Organization [facility] Address [address] [facility] [place] [address] Phone [phone] Care Team Providers Care Solid Waste Facility Supervisor Name Role Phone Maxwell Sellers MD Primary Care Provider + Encounter Details Date Type Department Care Team (Late st Contact Info) Description 05/22/2023 11:30 AM EST Nurse Only Ancillary [facility] [address] [facility] [place] [address] Nurse, Int Med [address] [place] [address] Arrived Allergies Active Allergy Reactions Criticality Noted Date Comments Pantoprazole 01/29/2022 Itchiness, rash Penicillins Hives 01/13/2003 hives documented as of this encounter (statuses as of 05/22/2023) Medications Medication Sig Dispensed Refills Start Date [...] inj 1,000 mcgIndications:B12 deficiency 1000 mcg IM [id number] 04/19/2023 03/19/2024 Active documented as of this encounter (statuses as of 05/22/2023) Active Problems Problem Noted Date Diagnosed Date [...] as of this encounter (statuses as of 05/22/2023) Resolved Problems Problem Noted Date Diagnosed Date Resolved Date Permanent atrial fibrillation 03/28/2019 10/28/2021 Chronic systolic CHF (conges tive heart failure) 03/28/2019 01/03/2021 CHF with right heart failure 03/21/2019 03/12/2022 Atherosclerosis of aorta 11/16/2018 Carpal tunnel syndrome 03/28/201302/10 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 Henriquez [facility] N/S asymptomatic [...] well after 03/29 surgical repair LOC PRIM [id number] 05/09/2003 1010/2016 Esotropia 01/13/2003 02/10/2017 Overview: 11/24- R sixth nerve palsy- improving MRI/MRA negative Alopecia 01/13/2003 02/10/2017 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/2002 09/20/2018 Overview: not bx proven DIVERTICULOSIS OF COLON 06/16/200202/22 Menopause 06/16/2002 10/23/2021 Abnormal weight gain 06/16/2002 017 Other ulcerative colitis with rectal bleeding 03/12/2022 documented as of this encounter (statuses as of 05/22/2023) Immunizations Name Administration Dates Next Due COVID-19 mRNA, LNP-s, No Pre serve, 2-Dose Series (Moderna) 08/30/2020,07/25/2020 COVID-19, mRNA, LNP-s, PF, B ooster, 100mcg/0.5mg (Moderna) 05/13/2021 Covid-19, Mrna, Lnp-s, Pf, B ivalent, 30 Mcg, IM, 12 yrs and above (Gleam) 03/18/2022 PPD 02/14/2011 Pneumococcal Conjugate Vacc, 13 [...] as of this encounter Progress Notes * Gambocurta, Barbra, BRAND MARKETING COORDINATOR - 05/22/2023 10:21 AM EST Pre-Administration Time Out Procedure Performed: Yes Patient Identified (Ask Name/Date of ): Yes Does the patient have a fever greater than 101 degrees today? No Patient allergic to latex? No Has the patient ever fainted after receiving an injection? No VFC Stock: No Injection(s) verified: Yes, Injection Name: B12 Verified Side and Site: Yes Verified Shot(s) with Parent(s)/Patient: Yes documented in this encounter Plan of Treatment Upcoming Encounters Date Type Department Care Team (Late st Contact Info) Description 05/29/2023 10:00 AM EST Nurse Only Ancillary [facility] [address] [place] [address] Nurse, Int Med [address] [facility] [place] [address] 11/09/2023 11:20 AM EDT Office Visit General Internal Medicine [facility] [address] [place] [address] Leyda Ahn MD [address] [facility] [place] [address] 05/03/2024 9:00 AM EST Office Visit Neurology [facility] [address] [place] [address] Ellen Carias PA-C [address] [facility] [place] [address] Scheduled Procedures Name Priority Associated Diagnoses Date/Ti me COLONOSCOPY FLEXIBLE PROXIMA L DIAGNOSTIC Recall IBD (inflammatory bowel disease) Health Maintenance Due Date Last Done Comments Zoster Vaccines (2 of 3) 11/09/2014 09/14/2014 COVID-19 Vaccine ( season) 2023 03/18/2022, 05/13/2021, [...] this encounter Medical Devices Implanted Type Area Garbage Pick Up Man Device Identifier Shelf Expiration Date Model / Serial / Lot Patch Pericard 8x14cm [id number] - [id number] Implanted:Qty : 1 on 04/17/2010 at OR [facility] Tissue - Non Human N/A: Chest [employer] 12/05/2014 [id number] / / [id number] Sut Steel 6 M654g - [id number] Implanted:Qty : 4 on 04/17/2010 at OR [facility] N/A: Chest DO NOT USE 06/17/2014 [id number] / / [id number] documented as of this encounter Administered Medications Active Administered Medications - up to 3 most recent administrations Medication Order MAR Action Action Date Dose Rate Site vitamin b-12 (Cyanocobalamin) inj 1,000 mcg 1,000 mcg, Intramuscular, [id number], First dose on 04/19/23 at 0000, Last dose on 02/21/24 at 0000, For 12 doses Given 05/22/2023 10:24 AM EST 1,000 mcg Deltoid Left Upper Given 05/15/2023 11:48 AM EST 1,000 mcg D eltoid Left Upper documented in this encounter Advance Directives Documents on File Type Date Recorded 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 Care Teams Solid Waste Facility Supervisor Relationship Specialty Start Date End Date Maxwell Sellers MD [address] [place] [address] PCP - General Internal Medicine 01/03/21 documented as of this encounter
[2023-11-11] MEDS: LEVOTHYROXINE SODIUM 100 MCG TABLET PO SCH (06:02)
[2023-11-11 08:22] LABS: BUN Creatinine Ratio 45.5 (10-20); Creatinine Clr Calc Pharmacy 39.5 ml/min; Est GFR (African American) 69.9 ml/min; Est GFR (Non-African American) 60.3 ml/min; Potassium 4.5 mmol/L (3.5-5.1)
[2023-11-11 08:23] LABS: Hematocrit (blood only) 39.7 % (37.0-47.0); Hemoglobin 12.4 g/dl (12.0-16.0); Mean Corpuscular Hemoglobin 28.8 pg (25.0-34.0); Mean Corpuscular Hgb Conc 31.2 g/dL (32.0-36.0); Mean Corpuscular Volume 92.3 fL (80.0-100.0); Platelet Count 85 K/uL (130-400); White Blood Count 4.26 K/ul (4.8-10.8)
[2023-11-11 08:25] LABS: Basophils # (auto) 0.03 K/uL (0.00-0.20); Basophils % (auto) 0.7 %; Echinocytes 1+; Eosinophils # (auto) 0.11 K/uL (0.00-0.50); Eosinophils % (auto) 2.6 %; Immature Granulocytes # (auto) 0.01 K/uL (0.01-0.20); Immature Granulocytes % (auto) 0.2 %; Lymphocytes # (auto) 1.39 K/uL (1.20-3.40); Lymphocytes % (auto) 32.6 %; Monocytes # (auto) 0.55 K/uL (0.11-0.59); Monocytes % (auto) 12.9 %; Neutrophils # (auto) 2.17 K/uL (1.40-6.50); Platelet Estimate Decreased (Normal)
[2023-11-11] MEDS: ASPIRIN 81 MG ECTAB PO SCH (09:38)
[2023-11-11] MEDS: MESALAMINE 800 MG TABCR PO SCH (09:39)
[2023-11-11] MEDS: GABAPENTIN 100 MG CAP PO SCH (09:39)
--- NOTE | 2023-11-11 11:10 | Cardiology Consultation ---
Date of Consultation November 11, 2023 Assessment & Plan (1) Atrial flutter with controlled response: (2) Acute hypotension: (3) Dizziness: (4) S/P TAVR (transcatheter aortic valve replacement): (5) Severe tricuspid regurgitation: Plan 83-year-old female present to hospital with dizziness, hypotension, and dehydration. Agree with gentle IV hydration at this time. Echocardiogram with evidence of right ventricular enlargement severe tricuspid regurgitation with mild pulmonary hypertension. No overt evidence of decompensated heart failure at this time. Taking furosemide 3 days/week prior to admission. Hold furosemide, Entresto, and metoprolol at this time. Heart rate well-controlled with low-dose metoprolol. Consider restarting within the next 24 hours pending ongoing blood pressure assessment. Patient is not chronically anticoagulated despite history of paroxysmal atrial fibrillation and atrial flutter. Per review of medical records, anticoagulation discontinued in 2019 in the setting of recurrent falls, and subdural hematoma. Since that time she suffered a spontaneous retroperitoneal bleed while receiving IV heparin at the [facility]. At this time, risks of long-term anticoagulation outweigh benefit. Continue low-dose aspirin. Preliminary review of bedside echocardiogram demonstrates stable findings with normal TAVR function. Right ventricular enlargement and severe tricuspid regurgitation [facility]. No further inpatient cardiac testing or intervention recommended at this time. I spent a total of 60 minutes on the date of service in preparation, delivery, and documentation of the care provided to this patient, excluding any time spent in the performance of separately billed services. History of Present Illness Reason for Consultation: atrial flutter, hypotension Requesting Physician: Dr. Calin Recinos Attending Physician: Frederick Recinos MD History of Present Illness 83-year-old female with complex history noted below presented to the emergency department for evaluation of hypotension. Patient is a poor historian unable to offer much meaningful history. Unsure of why she came to the hospital. Per review of ER records, daughter reported visible dizziness and difficulty standing earlier in the day 11/10/2023. Patient reporting symptoms including fatigue. No falls or injuries reported. Denies headache, fever, chills, sick contacts, chest discomfort, palpitations, syncope, or near syncope. Blood pressure initially 80s/40s upon arrival. Treated with intravenous normal saline overnight. Feeling better today. Seated upright without subjective complaints of dizziness or lightheadedness. Requesting discharge if possible. Unable to recall details regarding initial presentation 11/10/2023. No family present at bedside. Cardiac/medical history: 1. 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 2. Patient underwent TAVR valve in valve 09/12/22 at [facility]. LV thrombus noted during case. Started on heparin and developed retroperitoneal bleed. IV heparin discontinued. LV thrombus was resolved on repeat echo and no anticoagulation therapy was given on discharge 3. No coronary disease by preoperative cardiac catheterization, 2009. 4. Repeat cardiac catheterization at [facility] showing mild luminal irregularities of the coronary anatomy, 03/03/2022 5. 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 Status post meningioma resection via gamma knife, May 2014 no growth on follow-up 2016 7. History of paroxsymal, Atrial flutter, Anticoagulation discontinued on 03/21/[address] Jordan. 8. Carotid artery occlusion, right. Last duplex 2019 9. COPD 10. Dilated right heart structures with moderate pulmonary hypertension 11. Nocturnal hypoxemia treated with supplemental oxygen, 2 L/min 12. Mechanical fall with left tentorium subdural hematoma identified December 28, 2018 13. History of chronic low back pain and spinal stenosis, prior epidural injections. 14. History of ulcerative colitis/diverticulosis. 15. Hypothyroidism 16. B12 deficiency 17. History of hyponatremia secondary to dehydration and alcohol consumption -2-3 Mallory lites daily Allergies Allergy/AdvReac Type Severity Reaction Status Date / Time pantoprazole Allergy Intermediate ITCHY RASH Verified 11/10/23 17:33 Penicillins Allergy Intermediate HIVES Verified 11/10/23 17:33 Home Medications Medication Instructions Recorded Confirmed Type acetaminophen 650 mg 2 tab PO BID PRN Pain 04/12/18 11/10/23 History tablet,extended release (Tylenol Arthritis Pain) levothyroxine 112 mcg capsule 112 mcg PO QAM 04/12/18 11/10/23 History albuterol sulfate 90 mcg/actuation 2 puff inhalation Q4H PRN 09/23/18 11/10/23 History aerosol inhaler shortness of breath metoprolol succinate 25 mg 25 mg PO QAM 11/12/21 11/10/23 History tablet,extended release 24 hr Oxygen Home 12/04/21 12/23/21 History furosemide 20 mg tablet 20 mg PO QAM #30 tabs 12/06/21 11/10/23 Rx mesalamine 1.2 gram tablet,delayed 2.4 g PO QAM 02/19/22 11/10/23 History release aspirin 81 mg tablet,delayed 81 mg PO DAILY 11/10/23 11/10/23 History release cyanocobalamin (vitamin B-12) 1,000 mcg IM Q4WK 11/10/23 11/10/23 History 1,000 mcg/mL injection solution gabapentin 100 mg capsule 100 mg PO DAILY 11/10/23 11/10/23 History sacubitril 24 mg-valsartan 26 mg 1 tab PO BID 11/10/23 11/10/23 History tablet (Entresto) Patient History Medical History GERD (gastroesophageal reflux disease) Hx of sarcoma of bone SURGERY ONLY Poor historian Acute on chronic diastolic heart failure due to valvular disease Carotid artery occlusion NO SURGERY ON CAROTID Crohns disease Spinal stenosis Osteoarthritis Cardiac murmur FOLLOWS WITH innocutis CARDS Hyperlipidemia Former smoker Surgical History H/O knee surgery LEFT History of colonoscopy History of tooth extraction History of tonsillectomy X 2 S/P aortic valve replacement 12+ YEARS AGO *[facility] "NEEDS REPAIRED" History of thoracic surgery SARCOMA REMOVED History of appendectomy Family History Mother Coronary heart disease Father Coronary heart disease Other No family history of adverse response to anesthesia Social History Smoking Status: Former smoker Second Hand Exposure: No; Do You Dip or Chew Tobacco: No; Tobacco Cessation Education Requested by Patient: No Hx Alcohol Use: Yes Alcohol type: beer Alcohol type Comment: 2 mallory lights a day Hx Substance Use: No Preferred Language: Yi Communication Ability: Effective Water Attendant Required: No Beliefs That Will Affect Care: None Current Living Situation: Alone Current Living Situation Comment: Independent, still drives Other Information That Helps Us Care for You: No Feels Safe at Home: Yes Safety Concerns: Feels Safe At This Time Assistive Devices: Oxygen - at Night Review of Systems Review of Systems: All systems reviewed & are unremarkable except as noted in Subjective Physical Exam Constitutional: well nourished; no acute distress and not ill appearing Respiratory: no respiratory distress, no labored breathing and no retractions Auscultation: no crackles, no rales, no rhonchi and no wheezes Cardiovascular: Rate/Rhythm: + irregularly irregular Heart Sounds: normal S1, normal S2 and + murmur (2/6 IGLESIA) Vessels: no JVD and no carotid bruit Extremities: no edema Gastrointestinal (Abdomen): Inspection/Auscultation: abdomen normal to inspection and normal bowel sounds; abdomen not distended Percussion/Palpation: abdomen soft; abdomen nontender, no guarding and abdomen not rigid Neurologic: CN's II-XI intact bilaterally and moves all extremities; no focal motor deficits Results & Data Vital Signs (Past 12 Hours) Vital Signs Temp Pulse Pulse Resp BP Pulse Ox O2 Del Method 11/11/23 08:21 53 L 11/11/23 08:01 106 H 18 126/79 95 Room Air 11/11/23 00:50 49 L 11/11/23 00:48 36.2 C L 76 18 116/56 L 96 Room Air 11/11/23 00:15 Room Air 11/10/23 23:08 50 L 92/42 L 11/10/23 23:01 50 L 94/41 L 11/10/23 23:00 49 L 14 107/48 L 98 Room Air Laboratory Results Cardiac Enzymes 11/10/23 11/10/23 Range/Units 17:25 20:56 AST 42 H (13-39) U/L Troponin I High Sens 14.4 H (0-14) pg/ml Coagulation 11/10/23 Range/Units 20:56 APTT 27 (21-31) Seconds CBC 11/10/23 11/11/23 Range/Units 17:25 07:09 WBC 4.16 L 4.26 L (4.8-10.8) K/ul RBC 4.82 4.30 (4.20-5.40) M/uL Hgb 14.1 12.4 (12.0-16.0) g/dl Hct 43.6 39.7 (37.0-47.0) % Plt Count 110 L 85 L (130-400) K/uL Neut # (Auto) 2.03 2.17 (1.40-6.50) K/uL Lymph # (Auto) 1.45 1.39 (1.20-3.40) K/uL Wheeler # (Auto) 0.56 0.55 (0.11-0.59) K/uL Eos # (Auto) 0.07 0.11 (0.00-0.50) K/uL Baso # (Auto) 0.03 0.03 (0.00-0.20) K/uL Comprehensive Metabolic Panel 11/10/23 11/11/23 Range/Units 17:25 07:09 Sodium 134 L 138 (136-145) mmol/L Potassium 4.9 4.5 (3.5-5.1) mmol/L Chloride 101 107 (98-107) mmol/L Carbon Dioxide 26 24 (21-32) mmol/L BUN 43 H 40 H (6-23) mg/dl Creatinine 1.27 H 0.88 D (0.6-1.2) mg/dl Glucose 84 95 (70-99(Fasting)) mg/dl Calcium 10.2 9.0 (8.6-10.3) mg/dl AST 42 H (13-39) U/L ALT 18 (7-52) U/L Alkaline Phosphatase 103 (34-104) U/L Total Protein 8.2 (6.0-8.3) gm/dl Albumin 4.6 (3.4-5.0) gm/dl Intake and Output 11/10/23 11/11/23 11/11/23 22:59 06:59 14:59 Intake Total 250 / 2570 2320 / 2570 Balance 250 / 2570 2320 / 2570 Intake: IV 250 / 2470 2220 / 2470 Sodium Chloride 0.9% 1,000 ml @ 250 / 2470 2220 / 2470 75 mls/hr IV .[id number] ONE Rx#: [id number] Oral 100 / 100 Other: Weight 56.8 kg 52.6 kg Weight Measurement Method Built in [facility] Built in [facility]
[2023-11-11] MEDS: ACETAMINOPHEN 325 MG TAB PO PRN ×2 (13:21→16:12)
--- NOTE | 2023-11-11 16:19 | Electrocardiogram Report ---
Test Reason : Blood Pressure : / mmHG Vent. Rate : 050 BPM Atrial Rate : 202 BPM P-R Int : 000 ms QRS Dur : 094 ms QT Int : 436 ms P-R-T Axes : 102 -22 -30 degrees QTc Int : 397 ms Atrial flutter with 4:1 A-V conduction Left ventricular hypertrophy with repolarization abnormality ( R in aVL ) Anteroseptal infarct , age undetermined Abnormal ECG When compared with ECG of 22-DEC-2021 21:22, Significant changes have occurred Confirmed by Malcolm Hendrix ([id number]) on 11/11/2023 4:19:34 PM Referred By: Confirmed By:Malcolm Hendrix
--- NOTE | 2023-11-11 16:46 | Hospitalist Progress Note ---
Date of Service November 11, 2023 Assessment & Plan (1) Acute hypotension: Plan: Secondary to hypovolemia Decreased p.o. intake in the setting of warm ambient weather Rule out tickborne infection given bradycardic episodes Received cautious amount of IV fluid She has been feeling much better since admission Blood pressure is maintained at 147/83 Has had physical therapy and did very well Atypical chest pain EKG showed a flutter with 40s to 1 block Serial cardiac enzymes are unremarkable for any ACS Echo of the heart showed-LVEF 55 to 60%, the moderate concentric LVH, RV is mildly dilated, RV systolic function is normal, right atrium is severely dilated, left atrium is moderately dilated, the patient is status post TAVR, normal gradient across prosthetic aortic valve, there is severe tricuspid regurgitation, the estimated systolic pulmonary pressure is 40 mmHg and there is moderate mitral regurgitation Appreciate cardiology input and recommendation Chronic diastolic heart failure, patient clinically dry valvular heart disease (mild to moderate MR, severe TR) Received cautious amount of intravenous fluid due to dehydration No signs and or symptoms of fluid overload Atrial flutter with bolus to 1 block PAF, slow atrial flutter on EKG, not on anticoagulation due to past bleeding bioprosthetic AVR stenosis status post surgery Not on any anticoagulation due to prior history of bleeding Other significant chronic medical conditions are stable and as below: COPD, lung status at baseline Crohn's disease stable on regimen Meningioma status post gamma knife surgery Sternal chondrosarcoma status post surgery Chronic hyponatremia Hypothyroidism, patient hyperthyroid with note of abnormal TFTs Daily alcohol intake, patient denies abuse Past tobacco abuse DVT prophylaxis. Heparin subcu Full code Patient daughter requesting updates providers. Ms. Yola Campbell, contact #[phone] Discussed with the patient daughter in detail Likely discharge tomorrow Admission and Anticipated Discharge Date Admission Date: November 10, 2023 Subjective 11/11/2023 The patient was seen and examined in telemetry unit in presence of the daughter She wants to go home She denies any more dizziness and has had physical therapy and did very well She was seen by the beef splitter and medications are being adjusted to control the heart rate and rhythm Review of Systems Review of Systems: All systems reviewed and are unremarkable except as noted below Physical Exam Physical Exam: Lying in bed without any acute distress Constitutional: + ill appearing and + thin Eyes: PERRL, conjunctivae normal, anicteric sclerae ENMT: external ear and nose normal, oropharynx normal Neck: trachea midline, no thyromegaly Respiratory: no respiratory distress Auscultation: lungs clear to auscultation bilaterally and + crackles (Minimal crackles at the bases) Cardiovascular: Rate/Rhythm: + irregularly irregular; not tachycardic Heart Sounds: normal S1, normal S2 and + murmur (2/6 to 3/6 ESM over precordium) Extremities: no edema Gastrointestinal (Abdomen): Inspection/Auscultation: normal bowel sounds; abdomen not distended Percussion/Palpation: abdomen soft; abdomen nontender Musculoskeletal: No acute arthritis involving any of the joint Neurologic: normal touch/pain/proprioception and moves all extremities; no focal motor deficits Generally very weak and later Lymphatic: no cervical or axillary lymphadenopathy Results & Data Results & Data Vital Signs (Past 12 Hours) Vital Signs Temp Pulse Pulse Resp BP Pulse Ox O2 Del Method 11/11/23 16:02 76 11/11/23 15:31 36.4 C L 62 18 147/83 H 94 Room Air 11/11/23 11:31 36.5 C 60 18 115/64 95 Room Air 11/11/23 08:21 53 L 11/11/23 08:01 106 H 18 126/79 95 Room Air Laboratory Results Short CBC 11/10/23 11/11/23 Range/Units 17:25 07:09 WBC 4.16 L 4.26 L (4.8-10.8) K/ul Hgb 14.1 12.4 (12.0-16.0) g/dl Hct 43.6 39.7 (37.0-47.0) % Plt Count 110 L 85 L (130-400) K/uL BMP 11/10/23 11/11/23 17:25 07:09 Sodium 134 L 138 Potassium 4.9 4.5 Chloride 101 107 Carbon Dioxide 26 24 BUN 43 H 40 H Creatinine 1.27 H 0.88 D Glucose 84 95 Calcium 10.2 9.0 Liver Function 11/10/23 Range/Units 17:25 Total Bilirubin 2.0 H (0.2-1.0) mg/dl AST 42 H (13-39) U/L ALT 18 (7-52) U/L Alkaline Phosphatase 103 (34-104) U/L Albumin 4.6 (3.4-5.0) gm/dl Medications Administered Current Inpatient Medications Acetaminophen (Acetaminophen 325 Mg Tab) 650 mg PO Q4H PRN PRN Reason: Pain Stop: 12/11/23 15:30 Last Admin: 11/11/23 16:12 Dose: 650 mg Aspirin (Aspirin 81 Mg Ectab) 81 mg PO DAILY [facility] Stop: 12/11/23 08:59 Last Admin: 11/11/23 09:38 Dose: 81 mg Gabapentin (Gabapentin 100 Mg Cap) 100 mg PO DAILY [facility] Stop: 12/11/23 08:59 Last Admin: 11/11/23 09:39 Dose: 100 mg Promethazine HCl 6.25 mg/ (Sodium Chloride) 50.25 mls @ 201 mls/hr IV Q6H PRN PRN Reason: Nausea And Vomiting Stop: 12/10/23 20:50 Levothyroxine Sodium (Levothyroxine Sodium 100 Mcg Tablet) 100 mcg PO DAILYBB [facility] Stop: 12/11/23 06:29 Last Admin: 11/11/23 06:02 Dose: 100 mcg Mesalamine (Mesalamine 800 Mg Tabcr) 2,400 mg PO QAM [facility] Stop: 12/11/23 08:59 Last Admin: 11/11/23 09:39 Dose: 2,400 mg Nitroglycerin (Nitroglycerin Sl 0.4 Mg/Tab Tab) 0.4 mg SL Q5M PRN PRN Reason: Chest Pain Stop: 12/10/23 22:55 Oxycodone HCl (Oxycodone Hcl Ir 5 Mg Tab (Immediate Release)) 5 mg PO Q4H PRN PRN Reason: Pain Stop: 11/24/23 20:50
[2023-11-12 03:04] LABS: Appearance Urine Clear (Clear); Bacteria Urine Automated None Seen (None Seen); Bilirubin Urine Negative (Negative); Blood Urine Negative (Negative); Cast Urine Automated 0-2 /lpf (0-2); Color Urine Yellow; Epithelial Cell Urine Auto 0-2 /hpf (0-2); Glucose Urine UA Negative (Negative); Ketones Urine Negative (Negative); Leukocyte Esterase Urine Trace (Negative); Nitrite Urine Negative (Negative); Protein Urine Negative (Negative); RBC Urine Automated 0-2 /hpf (0-2); Specific Gravity Urine 1.021 (1.000-1.030); Urobilinogen Urine Negative (Negative); WBC Urine Automated 0-5 /hpf (0-5); pH Urine 5.5 (4.5-7.5)
[2023-11-12 06:35] LABS: Basophils # (auto) 0.04 K/uL (0.00-0.20); Eosinophils % (auto) 2.4 %; Hematocrit (blood only) 35.5 % (37.0-47.0); Hemoglobin 11.5 g/dl (12.0-16.0); Immature Granulocytes # (auto) 0.01 K/uL (0.01-0.20); Immature Granulocytes % (auto) 0.2 %; Lymphocytes # (auto) 1.54 K/uL (1.20-3.40); Lymphocytes % (auto) 37.3 %; Mean Corpuscular Hemoglobin 29.1 pg (25.0-34.0); Mean Corpuscular Hgb Conc 32.4 g/dL (32.0-36.0); Mean Corpuscular Volume 89.9 fL (80.0-100.0); Mean Platelet Volume 10.5 fL (9.4-12.4); Monocytes # (auto) 0.52 K/uL (0.11-0.59); Monocytes % (auto) 12.6 %; Neutrophils # (auto) 1.92 K/uL (1.40-6.50); Neutrophils % (auto) 46.5 %; Platelet Count 89 K/uL (130-400); RDW Coefficient of Variation 17.9 % (11.5-14.5); RDW Standard Deviation 59.2 fL (36.4-46.3); Red Blood Count 3.95 M/uL (4.20-5.40); White Blood Count 4.13 K/ul (4.8-10.8)
[2023-11-12 06:53] LABS: BUN Creatinine Ratio 41.4 (10-20); Calcium 9.4 mg/dl (8.6-10.3); Creatinine Clr Calc Pharmacy 49.1 ml/min; Est GFR (African American) 92.2 ml/min; Est GFR (Non-African American) 79.6 ml/min; Magnesium 1.8 mg/dl (1.7-2.4); Potassium 4.3 mmol/L (3.5-5.1)
--- NOTE | 2023-11-12 10:32 | Cardiology Progress Note ---
Date of Service November 12, 2023 Assessment & Plan (1) Atrial flutter with controlled response: (2) Acute hypotension: (3) Dizziness: (4) S/P TAVR (transcatheter aortic valve replacement): (5) Severe tricuspid regurgitation: Plan 83-year-old female present to hospital with dizziness, hypotension, and dehydration. Blood pressure improved with IV hydration. No recurrent hypotension since admission. Echocardiogram with evidence of right ventricular enlargement severe tricuspid regurgitation with mild pulmonary hypertension. Patient volume depleted without decompensated heart failure on admission. Taking furosemide 3 days/week prior to admission. Patient may resume furosemide as needed at time of discharge. Restart Toprol-XL 25 mg daily. Hold Entresto. Patient is not chronically anticoagulated despite history of paroxysmal atrial fibrillation and atrial flutter. Per review of medical records, anticoagulation discontinued in 2019 in the setting of recurrent falls, and subdural hematoma. Since that time she suffered a spontaneous retroperitoneal bleed while receiving IV heparin at the [facility]. At this time, risks of long-term anticoagulation outweigh benefit. Continue low-dose aspirin. Outpatient cardiology follow-up in 2 weeks I spent a total of 30 minutes on the date of service in preparation, delivery, and documentation of the care provided to this patient, excluding any time spent in the performance of separately billed services. Admission and Anticipated Discharge Date Admission Date: November 10, 2023 Subjective 83-year-old female seen examined the bedside. Blood pressure improved. Manage atrial flutter on telemetry with fair rate control. No symptomatic bradycardia. Heart rate at rest up to 110 bpm. Denies palpitations, lightheadedness, or dizziness. Entresto and metoprolol on hold since admission. Review of Systems Review of Systems: All systems reviewed & are unremarkable except as noted in Subjective Physical Exam Constitutional: well nourished; no acute distress and not ill appearing Respiratory: no respiratory distress, no labored breathing and no retractions Auscultation: no crackles, no rales, no rhonchi and no wheezes Cardiovascular: Rate/Rhythm: + irregularly irregular Heart Sounds: normal S1, normal S2 and + murmur (2/6 IGLESIA) Vessels: no JVD and no carotid bruit Extremities: no edema Gastrointestinal (Abdomen): Inspection/Auscultation: abdomen normal to inspection and normal bowel sounds; abdomen not distended Percussion/Palpation: abdomen soft; abdomen nontender, no guarding and abdomen not rigid Neurologic: CN's II-XI intact bilaterally and moves all extremities; no focal motor deficits Results & Data Vital Signs (Past 12 Hours) Vital Signs Temp Pulse Pulse Resp BP Pulse Ox O2 Del Method 11/12/23 08:28 54 L 11/12/23 08:13 36.4 C L 69 18 126/85 94 Room Air 11/12/23 02:55 36.5 C 106 H 18 114/68 92 Room Air 11/11/23 23:15 103 H Laboratory Results CBC 11/12/23 Range/Units 05:58 WBC 4.13 L (4.8-10.8) K/ul RBC 3.95 L (4.20-5.40) M/uL Hgb 11.5 L (12.0-16.0) g/dl Hct 35.5 L (37.0-47.0) % Plt Count 89 L (130-400) K/uL Neut # (Auto) 1.92 (1.40-6.50) K/uL Lymph # (Auto) 1.54 (1.20-3.40) K/uL [place] # (Auto) 0.52 (0.11-0.59) K/uL Eos # (Auto) 0.10 (0.00-0.50) K/uL Baso # (Auto) 0.04 (0.00-0.20) K/uL Comprehensive Metabolic Panel 11/12/23 Range/Units 05:58 Sodium 139 (136-145) mmol/L Potassium 4.3 (3.5-5.1) mmol/L Chloride 110 H (98-107) mmol/L Carbon Dioxide 24 (21-32) mmol/L BUN 29 H (6-23) mg/dl Creatinine 0.70 (0.6-1.2) mg/dl Glucose 94 (70-99(Fasting)) mg/dl Calcium 9.4 (8.6-10.3) mg/dl Intake and Output 11/11/23 11/12/23 11/12/23 22:59 06:59 14:59 Intake Total 420 / 1900 400 / 1900 Balance 420 / 1900 400 / 1900 Intake: Oral 420 / 1120 400 / 1120 Other: # Unmeasured Voids 1 1 Weight 52 kg Weight Measurement Method Built in [facility]
[2023-11-12] MEDS: METOPROLOL SUCC 25MG EXT REL TAB PO SCH (11:36)
--- NOTE | 2023-11-12 11:42 | Hospitalist Progress Note ---
Date of Service November 12, 2023 Assessment & Plan (1) Acute hypotension: Plan: Secondary to hypovolemia Decreased p.o. intake in the setting of warm ambient weather Rule out tickborne infection given bradycardic episodes Received cautious amount of IV fluid She has been feeling much better since admission Blood pressure is maintained at 147/83 Has had physical therapy and did very well She remains stable and no more hypotension and no dizziness noted She has been ambulating without any difficulties She will be discharged home this afternoon Her Entresto will be on hold and she will be given Toprol-XL 25 mg daily for control of blood pressure and also heart rate Atypical chest pain EKG showed a flutter with 40s to 1 block Serial cardiac enzymes are unremarkable for any ACS Echo of the heart showed-LVEF 55 to 60%, the moderate concentric LVH, RV is mild ly dilated, RV systolic function is normal, right atrium is severely dilated, left atrium is moderately dilated, the patient is status post TAVR, normal gradient across prosthetic aortic valve, there is severe tricuspid regurgitation, the estimated systolic pulmonary pressure is 40 mmHg and there is moderate mitral regurgitation Appreciate cardiology input and recommendation No more chest pain and/or palpitation Chronic diastolic heart failure, patient clinically dry valvular heart disease (mild to moderate MR, severe TR) Received cautious amount of intravenous fluid due to dehydration No signs and or symptoms of fluid overload Her furosemide will be prescribed as needed depending on the weight gain and leg edema or symptoms of fluid overload Atrial flutter with bolus to 1 block PAF, slow atrial flutter on EKG, not on anticoagulation due to past bleeding bioprosthetic AVR stenosis status post surgery Not on any anticoagulation due to prior history of bleeding Heart rate is controlled at around 54 this morning Other significant chronic medical conditions are stable and as below: COPD, lung status at baseline Crohn's disease stable on regimen Meningioma status post gamma knife surgery Sternal chondrosarcoma status post surgery Chronic hyponatremia Hypothyroidism, patient hyperthyroid with note of abnormal TFTs Daily alcohol intake, patient denies abuse Past tobacco abuse DVT prophylaxis. Heparin subcu Full code Patient daughter requesting updates providers. Ms. Yola Campbell, contact #[phone] Discussed with the patient daughter in detail She will be discharged home this afternoon Admission and Anticipated Discharge Date Admission Date: November 10, 2023 Subjective 11/11/2023 The patient was seen and examined in telemetry unit in presence of the daughter She wants to go home She denies any more dizziness and has had physical therapy and did very well She was seen by the marine insurance claim examiner and medications are being adjusted to control the heart rate and rhythm 11/12/2023 The patient was seen and examined in telemetry unit She has been stable and wants to be discharged Denies any more dizziness while ambulating Blood pressure remains stable and denies any more cardiac symptoms Review of Systems Review of Systems: All systems reviewed and are unremarkable except as noted below Physical Exam Physical Exam: Lying in bed without any acute distress Constitutional: + ill appearing and + thin Eyes: PERRL, conjunctivae normal, anicteric sclerae ENMT: external ear and nose normal, oropharynx normal Neck: trachea midline, no thyromegaly Respiratory: no respiratory distress Auscultation: lungs clear to auscultation bilaterally and + crackles (Minimal crackles at the bases) Cardiovascular: Rate/Rhythm: + irregularly irregular; not tachycardic Heart Sounds: normal S1, normal S2 and + murmur (2/6 to 3/6 ESM over precordium) Extremities: no edema Gastrointestinal (Abdomen): Inspection/Auscultation: normal bowel sounds; abdomen not distended Percussion/Palpation: abdomen soft; abdomen nontender Musculoskeletal: no cyanosis or clubbing, extremities motor strength 5/5 Neurologic: normal touch/pain/proprioception and moves all extremities; no focal motor deficits Psychiatric: A+Ox3, euthymic affect Lymphatic: no cervical or axillary lymphadenopathy Results & Data Results & Data Vital Signs (Past 12 Hours) Vital Signs Temp Pulse Pulse Resp BP Pulse Ox O2 Del Method 11/12/23 08:28 54 L 11/12/23 08:13 36.4 C L 69 18 126/85 94 Room Air 11/12/23 02:55 36.5 C 106 H 18 114/68 92 Room Air Laboratory Results Short CBC 11/12/23 Range/Units 05:58 WBC 4.13 L (4.8-10.8) K/ul Hgb 11.5 L (12.0-16.0) g/dl Hct 35.5 L (37.0-47.0) % Plt Count 89 L (130-400) K/uL BMP 11/12/23 05:58 Sodium 139 Potassium 4.3 Chloride 110 H Carbon Dioxide 24 BUN 29 H Creatinine 0.70 Glucose 94 Calcium 9.4 Urine 11/12/23 Range/Units Unknown Urine Color Yellow Urine Appearance Clear (Clear) Urine pH 5.5 (4.5-7.5) Ur Specific [place] 1.021 (1.000-1.030) Urine Protein Negative (Negative) Urine Glucose (UA) Negative (Negative) Medications Administered Current Inpatient Medications Acetaminophen (Acetaminophen 325 Mg Tab) 650 mg PO Q4H PRN PRN Reason: Pain Stop: 12/11/23 15:30 Last Admin: 11/12/23 09:40 Dose: 650 mg Aspirin (Aspirin 81 Mg Ectab) 81 mg PO DAILY [facility] Stop: 12/11/23 08:59 Last Admin: 11/12/23 09:33 Dose: 81 mg Gabapentin (Gabapentin 100 Mg Cap) 100 mg PO DAILY [facility] Stop: 12/11/23 08:59 Last Admin: 11/12/23 09:33 Dose: 100 mg Promethazine HCl 6.25 mg/ (Sodium Chloride) 50.25 mls @ 201 mls/hr IV Q6H PRN PRN Reason: Nausea And Vomiting Stop: 12/10/23 20:50 Levothyroxine Sodium (Levothyroxine Sodium 100 Mcg Tablet) [facility] Stop: 12/11/23 06:29 Last Admin: 11/12/23 06:11 Dose: 100 mcg Mesalamine (Mesalamine 800 Mg Tabcr) 2,[facility] Stop: 12/11/23 08:59 Last Admin: 11/12/23 09:33 Dose: 2,400 mg Metoprolol Succinate (Metoprolol Succ 25mg Ext Rel Tab) [facility] Stop: 12/12/23 10:29 Last Admin: 11/12/23 11:36 Dose: 25 mg Nitroglycerin (Nitroglycerin Sl 0.4 Mg/Tab Tab) 0.4 mg SL Q5M PRN PRN Reason: Chest Pain Stop: 12/10/23 22:55 Oxycodone HCl (Oxycodone Hcl Ir 5 Mg Tab (Immediate Release)) 5 mg PO Q4H PRN PRN Reason: Pain Stop: 11/24/23 20:50
--- NOTE | 2023-11-12 16:55 | Discharge Summary ---
Date of Service November 12, 2023 Admission HPI Per Admitting Provider History obtained from patient and records. Medical history significant for chronic diastolic heart failure (EF 55 to 59%, TTE 2022), valvular heart disease (mild to moderate MR, severe TR), pulmonary hypertension, PAF, bioprosthetic AVR stenosis status post surgery, PVD, COPD, RLS, Crohn's disease, meningioma status post gamma knife surgery, sternal chondrosarcoma status post surgery, chronic hyponatremia, hypothyroidism, daily alcohol intake, past tobacco abuse. Last confinement [facility] for elective TAVR valve repair. LV thrombus noted during admission. IV heparin started but stopped due to retroperitoneal bleed. Patient has not been acting well the last few days. Dizziness described as lightheadedness. Losing weight. Patient denies depression. Transient chest tightness the last few days. Denies unusual shortness of breath. Not sure about tick bites. Patient brought to PCPs office today on evaluation. Blood pressure and heart rate noted to be low. Lowest SBP of 50s documented at the office. Patient brought to the ER for evaluation by daughter. Lowest SBP of 60s documented at the ER. 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 Admission Exam Per Admitting Provider Physical Exam: GENERAL: comfortable, underweight, no respiratory distress SKIN: Normal color, cool HEENT: [place] palpebral conjunctivae, no ptosis, dry buccal mucosa NECK : Supple, no tenderness CHEST : Decreased breath sounds, no chest wall tenderness bradycardic HEART : Bradycardic, systolic murmur ABDOMEN: no distention, no tenderness EXTREMITIES : No LE swelling/tenderness, no other conspicuous deformities noted NEUROLOGIC : Coherent, no facial asymmetry, no other gross focality Principal Diagnosis Acute hypotension, likely secondary to hypovolemia, chest pain-no ACS, atrial flutter Discharge Exam Lying in bed without any acute distress Constitutional + ill appearing and + thin Eyes PERRL, conjunctivae normal, anicteric sclerae ENMT external ear and nose normal, oropharynx normal Neck trachea midline, no thyromegaly Respiratory no respiratory distress Auscultation: lungs clear to auscultation bilaterally and + crackles (Minimal crackles at the bases) Cardiovascular Rate/Rhythm: + irregularly irregular; not tachycardic Heart Sounds: normal S1, normal S2 and + murmur (2/6 to 3/6 ESM over precordium) Extremities: no edema Gastrointestinal (Abdomen) Inspection/Auscultation: normal bowel sounds; abdomen not distended Percussion/Palpation: abdomen soft; abdomen nontender Musculoskeletal no cyanosis or clubbing, extremities motor strength 5/5 Neurologic normal touch/pain/proprioception and moves all extremities; no focal motor deficits Psychiatric A+Ox3, euthymic affect Lymphatic no cervical or axillary lymphadenopathy Discharge Data Allergies Allergy/AdvReac Type Severity Reaction Status Date / Time pantoprazole Allergy Intermediate ITCHY RASH Verified 11/10/23 17:33 Penicillins Allergy Intermediate HIVES Verified 11/10/23 17:33 Consultations 11/10/23 19:55 ED Decision to Admit Stat 11/11/23 09:21 Consult Cardiology Routine Ordered Studies 11/10/23 17:42 CT head/brain wo con Stat 11/10/23 22:00 CT angio chest PE protocol Stat Hospital Course (1) Acute hypotension: Secondary to hypovolemia Decreased p.o. intake in the setting of warm ambient weather Rule out tickborne infection given bradycardic episodes Received cautious amount of IV fluid She has been feeling much better since admission Blood pressure is maintained at 147/83 Has had physical therapy and did very well She remains stable and no more hypotension and no dizziness noted She has been ambulating without any difficulties She will be discharged home this afternoon Her Entresto will be on hold and she will be given Toprol-XL 25 mg daily for control of blood pressure and also heart rate Atypical chest pain EKG showed a flutter with 40s to 1 block Serial cardiac enzymes are unremarkable for any ACS Echo of the heart showed-LVEF 55 to 60%, the moderate concentric LVH, RV is mildly dilated, RV systolic function is normal, right atrium is severely dilated, left atrium is moderately dilated, the patient is status post TAVR, normal gradient across prosthetic aortic valve, there is severe tricuspid regurgitation, the estimated systolic pulmonary pressure is 40 mmHg and there is moderate mitral regurgitation Appreciate cardiology input and recommendation No more chest pain and/or palpitation Chronic diastolic heart failure, patient clinically dry valvular heart disease (mild to moderate MR, severe TR) Received cautious amount of intravenous fluid due to dehydration No signs and or symptoms of fluid overload Her furosemide will be prescribed as needed depending on the weight gain and leg edema or symptoms of fluid overload Atrial flutter with bolus to 1 block PAF, slow atrial flutter on EKG, not on anticoagulation due to past bleeding bioprosthetic AVR stenosis status post surgery Not on any anticoagulation due to prior history of bleeding Heart rate is controlled at around 54 this morning Other significant chronic medical conditions are stable and as below: COPD, lung status at baseline Crohn's disease stable on regimen Meningioma status post gamma knife surgery Sternal chondrosarcoma status post surgery Chronic hyponatremia Hypothyroidism, patient hyperthyroid with note of abnormal TFTs Daily alcohol intake, patient denies abuse Past tobacco abuse DVT prophylaxis. Heparin subcu Full code Patient daughter requesting updates providers. Ms. Yola Campbell, contact #[phone] Discussed with the patient daughter in detail She will be discharged home this afternoon Total Time Total Time Spent Total Time Spent (In Minutes): 35 minutes Discharge Plan Discharge Items Patient Disposition: Home - Self-Care Reason For Visit: CP, TRANSIENT HYPOTENSION Discharge Diagnosis: Acute hypotension, likely secondary to hypovolemia, chest pain-no ACS, atrial flutter Condition on Discharge: Fair Activity: Resume your previous activity Non-emergency contact: Primary Care Provider Call non-emergency contact if: you have any medication questions and your symptoms worsen Follow-up/Referrals: Rajesh Jordan MD [Physician] - (The Cardiology office will contact you for follow up appointment.) Leyda Ahn MD [Primary Care Provider] - (Date & Time 11/19/2023 11:20 AM Provider Maxwell Sellers MD Department General Internal Medicine [facility] ) Diet: Heart Healthy Addtl Attending Provider Instructions: Please take precautions to avoid falls Your Entresto has been discontinued due to low blood pressure and dizziness Continue with metoprolol succinate Take your furosemide as needed-(20 mg daily for 2 to 3 days )if you have weight gain for about 2 to 3 pounds in a week, swelling of the legs and feel congested with shortness of breath. Try to avoid overexerting yourself Keep appointments with your healthcare providers Pending Studies at Discharge: No Stand-Alone Forms: My [employer] K12, Smoking Cessation Medications and DC Order Prescriptions: Continued acetaminophen [Tylenol Arthritis Pain] 650 mg Tablet Extended Release 2 tab PO BID PRN (Reason: Pain) levothyroxine 112 mcg Capsule 112 mcg PO QAM albuterol sulfate 90 mcg/actuation Hfa Aerosol Inhaler 2 puff INHALATION Q4H PRN (Reason: shortness of breath) metoprolol succinate 25 mg tablet extended release 24 hr 25 mg PO QAM (DME) Oxygen Home furosemide 20 mg Tablet 20 mg PO QAM Qty: 30 0RF mesalamine 1.2 gram Tablet,Delayed Release (Dr/Ec) 2.4 g PO QAM aspirin 81 mg Tablet,Delayed Release (Dr/Ec) 81 mg PO DAILY cyanocobalamin (vitamin B-12) 1,000 mcg/mL Solution 1,000 mcg IM Q4WK gabapentin 100 mg capsule 100 mg PO DAILY Rx Instructions: PER [facility]--UP TO TID Discontinued Entresto 24-26 mg tablet 1 tab PO BID Discharge Orders: Discharge Order (Routine); Ordered 11/12/23 Ordered By: Frederick Recinso Discharge Order- CHF (Routine); Ordered 11/12/23 Ordered By: Frederick Recinos Admission Data Admit Date/Time: 11/10/23 20:44 Attending Provider: Frederick Recinos Admit Provider: Jae Yan Primary Care Provider: Leyda Ahn Other Providers: Jae Yan; Pastora Al; Gabe Garza; Rajesh Jordan; Judd Fontenot; Antony Edwards; Tyson Sevilla; Ritu Vasquez; Barbara Summers; Janice Ahuja Ashley M.; Link Arriola; Hardeep Greco; Cele Borrego; Davida Bassett; Marya Holland; Ryan Fournier; David Harmon; Suzie Cardona Other Interventions: Discharge Summary Assessment (RN) Last Done: 11/12/23 12:46
[2023-11-14 12:27] LABS: Babesia microti DNA Not Detected (Not Detected)
[2023-11-16 14:55] LABS: Ehrlichia chaff DNA Bld Negative (Negative)
== END 2023-11-12 14:30 | disposition home or self-care (01) ==
LOC: ED 17:01 → EDINP 17:01 → 4W 22:56

== ENCOUNTER 2024-05-12 10:25 | Inpatient (IN) ==
[2024-05-12 11:27] LABS: Basophils # (auto) 0.04 K/uL (0.00-0.20); Basophils % (auto) 0.8 %; Immature Granulocytes # (auto) 0.02 K/uL (0.01-0.20); Immature Granulocytes % (auto) 0.4 %; Lymphocytes # (auto) 0.87 K/uL (1.20-3.40); Lymphocytes % (auto) 18.2 %; Mean Corpuscular Hemoglobin 31.2 pg (25.0-34.0); Mean Corpuscular Hgb Conc 31.6 g/dL (32.0-36.0); Mean Corpuscular Volume 98.7 fL (80.0-100.0); Mean Platelet Volume 9.6 fL (9.4-12.4); Monocytes # (auto) 0.56 K/uL (0.11-0.59); Monocytes % (auto) 11.7 %; Neutrophils % (auto) 68.9 %; Platelet Count 140 K/uL (130-400); RDW Coefficient of Variation 16.2 % (11.5-14.5); RDW Standard Deviation 58.9 fL (36.4-46.3); Red Blood Count 3.85 M/uL (4.20-5.40); White Blood Count 4.79 K/ul (4.8-10.8)
[2024-05-12 11:43] LABS: Albumin Globulin Ratio 1.4 (0.9-2); Albumin Level 4.4 gm/dl (3.4-5.0); BUN Creatinine Ratio 38.5 (10-20); Bilirubin,Total 2.6 mg/dl (0.2-1.0); Calcium 9.4 mg/dl (8.6-10.3); Creatinine Clr Calc Pharmacy 51.3 ml/min; Globulin 3.1 gm/dl (2.5-4.0); Potassium 4.4 mmol/L (3.5-5.1); Total Protein 7.5 gm/dl (6.0-8.3)
[2024-05-12 11:49] LABS: INR 1.2 (0.9-1.1); Partial Thromboplastin Time 27 Seconds (21-31); Prothrombin Time 12.8 Seconds (9.0-12.0)
[2024-05-12] MEDS: GELATIN SPONGE 12-7MM EXT ONE (12:14)
--- NOTE | 2024-05-12 12:39 | XRay Report ---
XR chest 1V portable HISTORY: 84 years-old Female chest pain earlier this morning acute chest pain COMPARISON: 11/10/2023 TECHNIQUE: AP view the chest FINDINGS: Cardiomegaly. Sternotomy wires are noted along with cardiac valve prosthesis. Chronic interstitial co arsening. No pneumothorax, large pleural effusion or overt pulmonary edema. Chronic blunting of the c ostophrenic angles with mild left basilar atelectasis versus scarring. Bones appear grossly intact. IMPRESSION: Cardiomegaly without acute process. ACT 112: Negative or not required by law. The above report was generated using voice recognition software. It may contain grammatical, syntax o r spelling errors. Electronically signed by: Cole Peguero M.D. 05/12/2024 12:38 PM
--- NOTE | 2024-05-12 13:45 | Ultrasound Report ---
RIGHT LOWER EXTREMITY VENOUS DOPPLER CLINICAL HISTORY: Right pain, hx of edema COMPARISON STUDY: No previous studies for comparison. TECHNIQUE: Sonography of the deep venous system of the right lower extremity was performed. Compress ion and augmentation were evaluated. FINDINGS: The right common femoral, superficial femoral and popliteal veins were compressible. Augme ntation was normal. Flow was shown within the deep calf vessels. Right lower extremity subcutaneous e duong is present. IMPRESSION: No evidence of deep venous thrombus within the right lower extremity. ACT 112: Negative or not required by law. Electronically signed by: Denilson Ruelas M.D. 05/12/2024 1:43 PM
--- NOTE | 2024-05-12 14:28 | Emergency Department Note ---
ED Provider Note History of Present Illness Chief Complaint: Referred by Doctor Stated Complaint: REF BY DOC, BLEEDING ON R CALF Time Seen by Provider: 05/12/24 11:40 Source: patient Mode of arrival: ambulatory Limitations: no limitations Patient is an 84-year-old female who presents to the emergency department with complaints of bleeding from her right calf. Patient states that she woke up from sleep and had "3 cups of blood" in her bed from a "pinhole" on her leg. Patient also notes that she was having some intermittent bouts of chest pain last night but denies any chest pain at this time. Patient denies any other complaints at this time. Home Medications Medication Instructions Recorded Confirmed Type acetaminophen 650 mg 2 tab PO BID PRN Pain 04/12/18 05/12/24 History tablet,extended release (Tylenol Arthritis Pain) levothyroxine 112 mcg capsule 100 mcg PO QAM 04/12/18 05/12/24 History metoprolol succinate 25 mg 25 mg PO QAM 11/12/21 05/12/24 History tablet,extended release 24 hr Oxygen Home 12/04/21 05/12/24 History mesalamine 1.2 gram tablet,delayed 2.4 g PO QAM 02/19/22 05/12/24 History release aspirin 81 mg tablet,delayed 81 mg PO DAILY 11/10/23 05/12/24 History release cyanocobalamin (vitamin B-12) 1,000 mcg IM Q4WK 11/10/23 05/12/24 History 1,000 mcg/mL injection solution cetirizine 10 mg tablet (Zyrtec) 10 mg PO DAILY 05/12/24 05/12/24 History ferrous sulfate 325 mg (65 mg 325 mg PO DAILY 05/12/24 05/12/24 History iron) tablet (Iron (ferrous sulfate)) umeclidinium 62.5 mcg-vilanterol 1 inh inhalation QAM 05/12/24 05/12/24 History 25 mcg/actuation powdr for inhalation (Anoro Ellipta) vitamin B12 1,000 mcg-folic acid 1 tye sublingual DAILY 05/12/24 05/12/24 History 400 mcg sublingual lozenge digoxin 125 mcg (0.125 mg) tablet 125 mcg PO 3XWK 05/13/24 05/13/24 History furosemide 40 mg tablet 40 mg PO Q OTHER DAY mwf #30 tabs 12/20/24 Rx Allergies Allergy/AdvReac Type Severity Reaction Status Date / Time pantoprazole Allergy Intermediate ITCHY RASH Verified 05/12/24 16:41 Penicillins Allergy Intermediate HIVES Verified 05/12/24 16:41 Past Med/Surg History Problem List (Updated 05/15/24 @ 16:17 by RAJAN Victoria) Leg pain (Acute) Elevated troponin (Acute) Chest tightness Leg wound, right Heart failure, diastolic, with acute decompensation Atrial flutter with rapid ventricular response Severe tricuspid regurgitation S/P TAVR (transcatheter aortic valve replacement) Atrial flutter with controlled response Dizziness (Acute) Acute hypotension (Acute) Encounter for pre-operative examination Encounter for pre-operative examination Chondrosarcoma (Chronic Unknown) S/P resection Atrial fibrillation with RVR (Acute) Elevated LFTs (Acute) Ileitis (Acute) GI bleed (Acute) Atrial flutter (Chronic) Meningioma (Chronic) Diverticulitis (Chronic) Abdominal pain Crohn disease (Chronic) Elevated LFTs Encounter for pre-operative examination Stroke syndrome (Acute) Stenosis, cervical spine (Acute) Spinal stenosis of lumbar region (Acute) Memory loss (Acute) Lumbar radiculopathy (Acute) Migraine headache (Acute) Crohn's disease (Acute) Cervicalgia (Acute) Cervical radiculopathy (Acute) Carpal tunnel syndrome (Acute) Meningioma Cervicalgia Cervical spinal stenosis Cervical facet joint syndrome Cervical spondylosis Cervicogenic headache Dizziness (Acute) Acute hyponatremia (Acute) Headache (Acute) Weakness (Acute) History of meningioma (Acute) Hyponatremia History of atrial flutter Acute GI bleeding (Acute) Colitis (Acute) Right rib fracture (Acute) Lumbar transverse process fracture (Acute) Fall (Acute) Prosthetic aortic valve stenosis Rectal bleed Unexplained weight loss NSVT (nonsustained ventricular tachycardia) Ulcerative colitis (Chronic) S/P colon resection (Chronic) Hypothyroidism (Chronic) COPD (chronic obstructive pulmonary disease) (Chronic) HAS O2 BUT NOT USING CURRENLTY History of thyroidectomy (Chronic Unknown) History of total hysterectomy (Chronic Unknown) "2001 " Intracranial meningioma (Chronic Unknown) PT STATES NO SURGERY Medical History GERD (gastroesophageal reflux disease) Hx of sarcoma of bone SURGERY ONLY Poor historian Acute on chronic diastolic heart failure due to valvular disease Carotid artery occlusion NO SURGERY ON CAROTID Crohns disease Spinal stenosis Osteoarthritis Cardiac murmur FOLLOWS WITH [facility] CARDS Hyperlipidemia Former smoker Surgical History H/O knee surgery LEFT History of colonoscopy History of tooth extraction History of tonsillectomy X 2 S/P aortic valve replacement 12+ YEARS AGO *[facility] "NEEDS REPAIRED" History of thoracic surgery SARCOMA REMOVED History of appendectomy Family History Mother Coronary heart disease Father Coronary heart disease Other No family history of adverse response to anesthesia Social History Smoking Status: Never smoker Second Hand Exposure: No; Do You Dip or Chew Tobacco: No; Hx Alcohol Use: Yes Alcohol type: beer Alcohol type Comment: 2 reagan lights a day Hx Substance Use: No Preferred Language: Sami Communication Ability: Effective [employer] Supervisor Required: No Beliefs That Will Affect Care: None Current Living Situation: Alone Current Living Situation Comment: Independent, still drives Feels Safe at Home: Yes Safety Concerns: Feels Safe At This Time Assistive Devices: None Physical Exam Vital Signs Vital Signs - 24 hr 05/12/24 10:44 05/12/24 11:30 05/12/24 12:04 Temperature 36.9 C Temperature Source Temporal Artery Scan Pulse Rate 84 105 H 104 H Respiratory Rate 20 16 Respiratory Effort / Characteristics Non-Labored Spontaneous Respiratory Depth Normal Blood Pressure 115/75 115/79 Blood Pressure Mean 88 95 Pulse Oximetry 97 96 Oxygen Delivery Method Room Air Sepsis Recent Fever Within 48 Hours No Sepsis New/Unexplained Change in Mental Status No Sepsis Action Taken by Nursing No Action Required 05/12/24 12:30 Temperature Temperature Source Pulse Rate 103 H Respiratory Rate 24 Respiratory Effort / Characteristics Respiratory Depth Blood Pressure 117/86 Blood Pressure Mean 91 Pulse Oximetry 97 Oxygen Delivery Method Sepsis Recent Fever Within 48 Hours Sepsis New/Unexplained Change in Mental Status Sepsis Action Taken by Nursing VITAL SIGNS - Vital signs and nursing notes were reviewed. GENERAL -84-year-old female appearing their stated age, who is in no acute distress. Communicates well with provider and answers questions appropriately. HEAD - Normocephalic, Atraumatic. EYES - PERRL with EOMI bilaterally. Sclera anicteric. Conjunctiva pink and moist with no injection noted. NECK - Neck with FROM. Supple to palpation. No lymphadenopathy noted. LUNGS - Chest wall symmetric without accessory muscle use, intercostals retractions, or central cyanosis. Normal vesicular breath sounds CTA B/L. No wheezes, rales, or rhonchi appreciated. CARDIAC - RRR with S1/S2. No murmur, rubs, or gallops appreciated. EXTREMITIES -patient has some trace edema noted bilaterally. Patient has a small laceration noted to the right lower ruano which continues to bleed without pressure. No repairable wound noted. NEUROLOGIC -Sensory intact to light touch throughout. PSYCH - A&Ox3 and cooperates fully with examiner. Pt is very pleasant and interacts well with examiner Course Administered Medications Discontinued Medications Acetaminophen (Acetaminophen 325 Mg Tab) 650 mg PO Q4H PRN PRN Reason: Pain or Fever Stop: 06/11/24 17:41 Last Admin: 05/13/24 11:08 Dose: 650 mg Documented By: CORIN Aspirin (Aspirin 81 Mg Ectab) 81 mg PO DAILY [facility] Stop: 06/12/24 08:59 Last Admin: 05/13/24 11:08 Dose: 81 mg Documented By: CORIN Digoxin (Digoxin 0.125 Mg Tab) 0.125 mg PO NOW ONE Stop: 05/13/24 14:46 Last Admin: 05/13/24 15:04 Dose: 0.125 mg Documented By: AM Furosemide (Furosemide Inj 20 Mg/2 Ml Vial) 20 mg IV ONE ONE Stop: 05/12/24 15:15 Last Admin: 05/12/24 15:47 Dose: 20 mg Documented By: JOSH Furosemide (Furosemide Inj 20 Mg/2 Ml Vial) 20 mg IV ONCE ONE Stop: 05/12/24 16:31 Last Admin: 05/12/24 17:19 Dose: 20 mg Documented By: CARLOS Gelatin (Gelatin Sponge 12-7mm) 1 each EXT NOW ONE Stop: 05/12/24 11:54 Last Admin: 05/12/24 12:14 Dose: 1 each Documented By: ANT Levothyroxine Sodium (Levothyroxine Sodium 112 Mcg Tablet) 112 mcg PO DAILYBB [facility] Stop: 06/12/24 06:29 Last Admin: 05/13/24 05:35 Dose: Not Given Documented By: TMG Metoprolol Succinate (Metoprolol Succ 25mg Ext Rel Tab) 25 mg PO QAM [facility] Stop: 06/12/24 08:59 Last Admin: 05/13/24 11:08 Dose: 25 mg Documented By: CORIN Miscellaneous (Mesalamine Dr ~ Order Awaiting Action) 1 each N/A QS SALLY Stop: 06/12/24 00:00 Last Admin: 05/13/24 11:28 Dose: Not Given Documented By: Admin: 05/12/24 23:50 Dose: Not Given Documented By: TMG Medical Decision Making Differential Diagnosis Laceration, abrasion, skin tear, as well as concerns for cardiac episode, elevated troponin, angina, CHF exacerbation, among others Medical Records Attestation: I reviewed the patient's medical records. Home Medications was personally reviewed by me Laboratory Data Attestation: I reviewed the patient's lab results. 05/13/24 13:03 05/13/24 06:06 Lab Results 05/12/24 05/12/24 05/12/24 Range/Units 11:00 12:17 14:28 WBC 4.79 L (4.8-10.8) K/ul RBC 3.85 L (4.20-5.40) M/uL Hgb 12.0 (12.0-16.0) g/dl Hct 38.0 (37.0-47.0) % MCV 98.7 (80.0-100.0) fL MCH 31.2 (25.0-34.0) pg MCHC 31.6 L (32.0-36.0) g/dL RDW Std Deviation 58.9 H (36.4-46.3) fL RDW Coeff of Brendon 16.2 H (11.5-14.5) % Plt Count 140 (130-400) K/uL MPV 9.6 (9.4-12.4) fL Immature Gran % (Auto) 0.4 % Neut % (Auto) 68.9 % Lymph % (Auto) 18.2 % [place] % (Auto) 11.7 % Eos % (Auto) 0.0 % Baso % (Auto) 0.8 % Neut # (Auto) 3.30 (1.40-6.50) K/uL Lymph # (Auto) 0.87 L (1.20-3.40) K/uL [place] # (Auto) 0.56 (0.11-0.59) K/uL Eos # (Auto) 0.00 (0.00-0.50) K/uL Baso # (Auto) 0.04 (0.00-0.20) K/uL Immature Gran # (Auto) 0.02 (0.01-0.20) K/uL PT 12.8 H (9.0-12.0) Seconds INR 1.2 H (0.9-1.1) APTT 27 (21-31) Seconds PTT Ratio 1.0 Sodium 136 (136-145) mmol/L Potassium 4.4 (3.5-5.1) mmol/L Chloride 99 (98-107) mmol/L Carbon Dioxide 31 (21-32) mmol/L Anion Gap 6 (3-11) BUN 30 H (6-23) mg/dl Creatinine 0.78 (0.6-1.2) mg/dl Est Cr Clr Drug Dosing 51.3 ml/min eGFR 74.39 BUN/Creatinine Ratio 38.5 H (10-20) Glucose 92 (70-99(Fasting)) mg/dl Calcium 9.4 (8.6-10.3) mg/dl Total Bilirubin 2.6 H (0.2-1.0) mg/dl AST 42 H (13-39) U/L ALT 12 (7-52) U/L Alkaline Phosphatase 108 H (34-104) U/L Troponin I High Sens 17.8 H 17.9 H (0-14) pg/ml Total Protein 7.5 (6.0-8.3) gm/dl Albumin 4.4 (3.4-5.0) gm/dl Globulin 3.1 (2.5-4.0) gm/dl Albumin/Globulin Ratio 1.4 (0.9-2) TSH 1.157 (0.300-4.500) uIu/ml Imaging Data Radiologist's Impression: Chest X-Ray 05/12/24 11:52 XR chest 1V portable HISTORY: 84 years-old Female chest pain earlier this morning acute chest pain COMPARISON: 11/10/2023 TECHNIQUE: AP view the chest FINDINGS: Cardiomegaly. Sternotomy wires are noted along with cardiac valve prosthesis. Chronic interstitial coarsening. No pneumothorax, large pleural effusion or overt pulmonary edema. Chronic blunting of the costophrenic angles with mild left basilar atelectasis versus scarring. Bones appear grossly intact. IMPRESSION: Cardiomegaly without acute process. ACT 112: Negative or not required by law. The above report was generated using voice recognition software. It may contain grammatical, syntax or spelling errors. Electronically signed by: Cole Peguero M.D. 05/12/2024 12:38 PM Venous Doppler Study 05/12/24 11:52 RIGHT LOWER EXTREMITY VENOUS DOPPLER CLINICAL HISTORY: Right pain, hx of edema COMPARISON STUDY: No previous studies for comparison. TECHNIQUE: Sonography of the deep venous system of the right lower extremity was performed. Compression and augmentation were evaluated. FINDINGS: The right common femoral, superficial femoral and popliteal veins were compressible. Augmentation was normal. Flow was shown within the deep calf vessels. Right lower extremity subcutaneous edema is present. IMPRESSION: No evidence of deep venous thrombus within the right lower extremity. ACT 112: Negative or not required by law. Electronically signed by: Denilson Ruelas M.D. 05/12/2024 1:43 PM MDM Narrative Patient is an 84-year-old female who presents to the emergency department with complaints of bleeding from her right calf. Patient states that she woke up from sleep and had "3 cups of blood" in her bed from a "pinhole" on her leg. Patient also notes that she was having some intermittent bouts of chest pain last night but denies any chest pain at this time. Patient denies any other complaints at this time. Patient was evaluated by myself and findings are noted in the physical exam above. Patient was ordered IV placement and lab work which included a troponin and coags. Patient was also ordered a TSH level. Patient was ordered a chest x-ray and venous Doppler study of her right lower extremity as well as an EKG. Cardiac workup was considered and ordered due to the patient's complaints of intermittent chest pain the night before. Patient and her daughter at bedside were agreeable to this plan. Patient's lab work resulted with unremarkable results outside of an elevated troponin. Patient's initial troponin level is 17.8. Patient was ordered some Gelfoam to place over the wound. Gelfoam was held in place with pressure and a bulky dressing was placed around it. Hemostasis was achieved and patient had no further bleeding from the wound. No blood soaked through the gauze dressing. Patient's EKG showed her to be in a normal sinus rhythm. Patient's chest x-ray was completed and interpreted by radiology to show cardiomegaly with no acute cardiopulmonary disease. Patient also had a an ultrasound of her extremity which showed no evidence of DVT. I discussed all these findings with the patient and her daughter at bedside who both verbalized understanding. I discussed with the patient that because she has an elevated troponin level, though it is not significantly elevated, she should probably stay in the hospital for further evaluation and management to look into why her troponin level is elevated, especially with her episode of chest pain. Patient was ordered a repeat troponin level at this time. Patient was agreeable to stay in the hospital as an observation to further evaluate why she may have had this episode of chest pain and the elevated troponin. Patient's daughter was happy with this decision as well because she was concerned about the patient falling when she got home as she has been having some falls recently. I spoke with the [facility] hospitalist group about this patient. I gave them a full report on the patient's chief complaint, current status, results of her lab work and imaging. They were agreeable to accept this patient under their service for hospital admission. Please refer to the [facility] hospitalist group's documentation for further evaluation and management of this patient. Impression Elevated troponin, Leg pain Discharge Plan Visit Data Chief Complaint: Referred by Doctor Stated Complaint: REF BY DOC, BLEEDING ON R CALF ED Provider: Mynor Castillo ED Midlevel Provider: Jyoti Lennon Discharge Problem: Elevated troponin, Leg pain Patient Disposition: Admitted As Inpatient Condition: Fair Discharge Instructions Interventions: ED Discharge Assessment Last Done: 05/12/24 17:25 Discharge Problem: Leg pain Qualifiers: Laterality: right Qualified Code(s): M79.604 - Pain in right leg
--- NOTE | 2024-05-12 14:28 | Emergency Department Note ---
ED Visit Note I was consulted by the Advanced Practice Provider. I personally made or approved the management plan for the patient. I performed a substantive portion of the visit. This includes the aspects of: MDM. .
--- NOTE | 2024-05-12 15:03 | History & Physical Report ---
Date of Service May 12, 2024 Assessment & Plan (1) Severe tricuspid regurgitation: (2) Atrial flutter with controlled response: (3) Atrial fibrillation with RVR: (4) Crohn disease: (5) Hypothyroidism: (6) COPD (chronic obstructive pulmonary disease): (7) History of thyroidectomy: (8) GERD (gastroesophageal reflux disease): Plan Assessment and plan: Chest pain, rule out ACS: EKG without acute changes, troponin flat, [id number], chest pain-free now Recent echo in October 2023, will defer to cardiology for repeat Telemetry monitoring, consult cardiology, n.p.o. after midnight for possible stress test if indicated Trend troponins, recent echo showed EF 55-60%, LVH, TAVR, severe tricuspid regurg Monitor closely with extensive cardiac history Right lower extremity pinhole wound Bleeding resolved with Gelfoam, hemoglobin stable at 12 Consider further workup if bleeding continues Hx TAVR x 2/A flutter/SVT/CHF: Continue metoprolol/aspirin/Lasix Strict I&O, daily weights Hx hypothyroidism s/p thyroidectomy: Continue levothyroxine, check TSH Chronic hypoxic respiratory failure Hx COPD 2 L oxygen as needed as needed, not in acute exacerbation, albuterol as needed A total of 60 minutes was spent on chart review/reviewing diagnostic data/facilitating plan of care/discussion with consultants Full code DVT prophylaxis: SCDs, avoid AC with history of GI bleed/recent right lower extremity leading History of Present Illness Chief Complaint: Right lower extremity bleeding wound, chest tightness Primary Care Provider: Leyda Ahn MD The patient is an 84-year-old female with a past medical history of AVR x 2, atrial flutter, chondrosarcoma, meningioma, COPD2 L as needed at home, SVT, hypothyroidism s/p thyroidectomy who presents to the ED on 05/12/2024 with c omplaints of a right lower extremity "pinhole "wound that she noticed originally on 04/30/2024. A pressure wound was placed and she did not have any further bleeding until today 05/12. Patient texted the [id number] at 6 AM, went to the doctor's office and when the pressure bandage was removed, the leg began spurting blood. The patient reports she noticed the blood while she was sleeping in the bed and reported feeling blood trickle down her leg. On arrival to the ER, Gelfoam was placed in the ER and the bleeding was controlled. At this time, the patient endorsed that she had some chest pain around 7 this a.m. and she forgot to wear her oxygen last night. Reported chest tightness developing at rest while she was sitting in her recliner. Her [id number] directed her to use her inhaler and place her oxygen on which improved the chest tightness. She denies the chest tightness radiating. Also reports some intermittent lightheadedness. Chest pain is now resolved on exam. Vargas [id number] reports aspirin 81 mg was started about 2 weeks ago. The patient denies any coughing. Reports some chronic leg swelling and some ascites intermittently. On exam, right lower leg dressing in place clean dry and intact. The patient denies any recent respiratory illness. Denies any nausea/vomiting/diarrhea/fever/chills On arrival, Labs fairly unremarkable, initial troponin 17.8.repeat troponin 17.9, EKG without acute changes. Chest x-ray without acute findings right lower extremity Doppler negative for DVT The patient will be admitted for rule out ACS Allergies Allergy/AdvReac Type Severity Reaction Status Date / Time pantoprazole Allergy Intermediate ITCHY RASH Verified 11/10/23 17:33 Penicillins Allergy Intermediate HIVES Verified 11/10/23 17:33 Home Medications Medication Instructions Recorded Confirmed Type acetaminophen 650 mg 2 tab PO BID PRN Pain 04/12/18 05/12/24 History tablet,extended release (Tylenol Arthritis Pain) levothyroxine 112 mcg capsule 100 mcg PO QAM 04/12/18 05/12/24 History albuterol sulfate 90 mcg/actuation 2 puff inhalation Q4H PRN 09/23/18 05/12/24 History aerosol inhaler shortness of breath metoprolol succinate 25 mg 25 mg PO QAM 11/12/21 05/12/24 History tablet,extended release 24 hr Oxygen Home 12/04/21 05/12/24 History mesalamine 1.2 gram tablet,delayed 2.4 g PO QAM 02/19/22 05/12/24 History release aspirin 81 mg tablet,delayed 81 mg PO DAILY 11/10/23 05/12/24 History release cyanocobalamin (vitamin B-12) 1,000 mcg IM Q4WK 11/10/23 05/12/24 History 1,000 mcg/mL injection solution furosemide 20 mg tablet 40 mg PO Q2D 05/12/24 05/12/24 History Past Med/Surg History Problem List (Updated 12/13/23 @ 00:07 by Daksha Adhikari) Severe tricuspid regurgitation S/P TAVR (transcatheter aortic valve replacement) Atrial flutter with controlled response Dizziness (Acute) Acute hypotension (Acute) Encounter for pre-operative examination Encounter for pre-operative examination Chondrosarcoma (Chronic Unknown) S/P resection Atrial fibrillation with RVR (Acute) Elevated LFTs (Acute) Ileitis (Acute) GI bleed (Acute) Atrial flutter (Chronic) Meningioma (Chronic) Diverticulitis (Chronic) Abdominal pain Crohn disease (Chronic) Elevated LFTs Encounter for pre-operative examination Stroke syndrome (Acute) Stenosis, cervical spine (Acute) Spinal stenosis of lumbar region (Acute) Memory loss (Acute) Lumbar radiculopathy (Acute) Migraine headache (Acute) Crohn's disease (Acute) Cervicalgia (Acute) Cervical radiculopathy (Acute) Carpal tunnel syndrome (Acute) Meningioma Cervicalgia Cervical spinal stenosis Cervical facet joint syndrome Cervical spondylosis Cervicogenic headache Dizziness (Acute) Acute hyponatremia (Acute) Headache (Acute) Weakness (Acute) History of meningioma (Acute) Hyponatremia History of atrial flutter Acute GI bleeding (Acute) Colitis (Acute) Right rib fracture (Acute) Lumbar transverse process fracture (Acute) Fall (Acute) Prosthetic aortic valve stenosis Rectal bleed Unexplained weight loss NSVT (nonsustained ventricular tachycardia) Ulcerative colitis (Chronic) S/P colon resection (Chronic) Hypothyroidism (Chronic) COPD (chronic obstructive pulmonary disease) (Chronic) HAS O2 BUT NOT USING CURRENLTY History of thyroidectomy (Chronic Unknown) History of total hysterectomy (Chronic Unknown) "2001 " Intracranial meningioma (Chronic Unknown) PT STATES NO SURGERY Medical History GERD (gastroesophageal reflux disease) Hx of sarcoma of bone SURGERY ONLY Poor historian Acute on chronic diastolic heart failure due to valvular disease Carotid artery occlusion NO SURGERY ON CAROTID Crohns disease Spinal stenosis Osteoarthritis Cardiac murmur FOLLOWS WITH [facility] CARDS Hyperlipidemia Former smoker Surgical History H/O knee surgery LEFT History of colonoscopy History of tooth extraction History of tonsillectomy X 2 S/P aortic valve replacement 12+ YEARS AGO [facility]NEEDS [facility]" History of thoracic surgery SARCOMA REMOVED History of appendectomy Family History Mother Coronary heart disease Father Coronary heart disease Other No family history of adverse response to anesthesia Social History Smoking Status: Unknown if ever smoked Second Hand Exposure: No; Do You Dip or Chew Tobacco: No; Hx Alcohol Use: Yes Alcohol type: beer Alcohol type Comment: 2 reagan lights a day Hx Substance Use: No Preferred Language: Montenegrin Communication Ability: Effective Websphere Portal Architect Required: No Beliefs That Will Affect Care: None Current Living Situation: Alone Current Living Situation Comment: Independent, still drives Feels Safe at Home: Yes Assistive Devices: Cane and Oxygen - at Night Review of Systems Review of Systems: All systems reviewed & are unremarkable except as noted in HPI & below Physical Exam Constitutional: WD/WN, vitals as above + cachectic and + underweight; + not appropriately hydrated Eyes: PERRL, conjunctivae normal, anicteric sclerae ENMT: external ear and nose normal, oropharynx normal Neck: trachea midline, no thyromegaly Respiratory: Auscultation: + diminished lung sounds Cardiovascular: RRR, no murmur, no edema (+1 non pitting edema ble ) Gastrointestinal (Abdomen): normal bowel sounds, soft, nontender, no hepatosplenomegaly Musculoskeletal: no cyanosis or clubbing, extremities motor strength 5/5 Skin: no rashes, warm and dry (Right lower extremity dressing in place, Gelfoam, CDI) Neurologic: PERRL, EOMI, accommodation nl, no face palsy, no dysarthria Psychiatric: A+Ox3, euthymic affect Lymphatic: no cervical or axillary lymphadenopathy Results & Data Results & Data Vital Signs (Past 12 Hours) Vital Signs Temp Pulse Resp BP Pulse Ox O2 Del Method 05/12/24 12:30 103 H 24 117/86 97 05/12/24 12:04 104 H 05/12/24 11:30 105 H 16 115/79 96 05/12/24 10:44 36.9 C 84 20 115/75 97 Room Air Laboratory Results Laboratory Results WBC 4.79 K/ul (4.8-10.8) L 05/12/24 11:00 RBC 3.85 M/uL (4.20-5.40) L 05/12/24 11:00 Hgb 12.0 g/dl (12.0-16.0) 05/12/24 11:00 Hct 38.0 % (37.0-47.0) 05/12/24 11:00 MCV 98.7 fL (80.0-100.0) 05/12/24 11:00 MCH 31.2 pg (25.0-34.0) 05/12/24 11:00 MCHC 31.6 g/dL (32.0-36.0) L 05/12/24 11:00 RDW Std Deviation 58.9 fL (36.4-46.3) H 05/12/24 11:00 RDW Coeff of Brendon 16.2 % (11.5-14.5) H 05/12/24 11:00 Plt Count 140 K/uL (130-400) 05/12/24 11:00 MPV 9.6 fL (9.4-12.4) 05/12/24 11:00 Immature Gran % (Auto) 0.4 % 05/12/24 11:00 Neut % (Auto) 68.9 % 05/12/24 11:00 Lymph % (Auto) 18.2 % 05/12/24 11:00 [place] % (Auto) 11.7 % 05/12/24 11:00 Eos % (Auto) 0.0 % 05/12/24 11:00 Baso % (Auto) 0.8 % 05/12/24 11:00 Neut # (Auto) 3.30 K/uL (1.40-6.50) 05/12/24 11:00 Lymph # (Auto) 0.87 K/uL (1.20-3.40) L 05/12/24 11:00 [place] # (Auto) 0.56 K/uL (0.11-0.59) 05/12/24 11:00 Eos # (Auto) 0.00 K/uL (0.00-0.50) 05/12/24 11:00 Baso # (Auto) 0.04 K/uL (0.00-0.20) 05/12/24 11:00 Immature Gran # (Auto) 0.02 K/uL (0.01-0.20) 05/12/24 11:00 PT 12.8 Seconds (9.0-12.0) H 05/12/24 11:00 INR 1.2 (0.9-1.1) H 05/12/24 11:00 APTT 27 Seconds (21-31) 05/12/24 11:00 PTT Ratio 1.0 05/12/24 11:00 Sodium 136 mmol/L (136-145) 05/12/24 11:00 Potassium 4.4 mmol/L (3.5-5.1) 05/12/24 11:00 Chloride 99 mmol/L (98-107) 05/12/24 11:00 Carbon Dioxide 31 mmol/L (21-32) 05/12/24 11:00 Anion Gap 6 (3-11) 05/12/24 11:00 BUN 30 mg/dl (6-23) H 05/12/24 11:00 Creatinine 0.78 mg/dl (0.6-1.2) 05/12/24 11:00 Est Cr Clr Drug Dosing 51.3 ml/min 05/12/24 11:00 eGFR 74.39 05/12/24 11:00 BUN/Creatinine Ratio 38.5 (10-20) H 05/12/24 11:00 Glucose 92 mg/dl (70-99(Fasting)) 05/12/24 11:00 Calcium 9.4 mg/dl (8.6-10.3) 05/12/24 11:00 Total Bilirubin 2.6 mg/dl (0.2-1.0) H 05/12/24 11:00 AST 42 U/L (13-39) H 05/12/24 11:00 ALT 12 U/L (7-52) 05/12/24 11:00 Alkaline Phosphatase 108 U/L (34-104) H 05/12/24 11:00 Troponin I High Sens 17.9 pg/ml (0-14) H 05/12/24 14:28 Total Protein 7.5 gm/dl (6.0-8.3) 05/12/24 11:00 Albumin 4.4 gm/dl (3.4-5.0) 05/12/24 11:00 Globulin 3.1 gm/dl (2.5-4.0) 05/12/24 11:00 Albumin/Globulin Ratio 1.4 (0.9-2) 05/12/24 11:00 Impressions Chest X-Ray 05/12/24 11:52 XR chest 1V portable HISTORY: 84 years-old Female chest pain earlier this morning acute chest pain COMPARISON: 11/10/2023 TECHNIQUE: AP view the chest FINDINGS: Cardiomegaly. Sternotomy wires are noted along with cardiac valve prosthesis. Chronic interstitial coarsening. No pneumothorax, large pleural effusion or overt pulmonary edema. Chronic blunting of the costophrenic angles with mild left basilar atelectasis versus scarring. Bones appear grossly intact. IMPRESSION: Cardiomegaly without acute process. ACT 112: Negative or not required by law. The above report was generated using voice recognition software. It may contain grammatical, syntax or spelling errors. Electronically signed by: Cole Peguero M.D. 05/12/2024 12:38 PM Venous Doppler Study 05/12/24 11:52 RIGHT LOWER EXTREMITY VENOUS DOPPLER CLINICAL HISTORY: Right pain, hx of edema COMPARISON STUDY: No previous studies for comparison. TECHNIQUE: Sonography of the deep venous system of the right lower extremity was performed. Compression and augmentation were evaluated. FINDINGS: The right common femoral, superficial femoral and popliteal veins were compressible. Augmentation was normal. Flow was shown within the deep calf vessels. Right lower extremity subcutaneous edema is present. IMPRESSION: No evidence of deep venous thrombus within the right lower extremity. ACT 112: Negative or not required by law. Electronically signed by: Denilson Ruelas M.D. 05/12/2024 1:43 PM Supervising Physician Co-Signing Physician Notes Patient seen and examined DIL at bedside reported patient had recurrent of RLE bleeding this AM on waking up. Bled first sometime ago. DIL thinks she had a scab and dilated vein there. Gel and pressure dressing applied in ER DIL reports she had chest tightness this AM. Reports patient has SUAREZ On exam General: Thin elderly woman in no distress Eyes: PERRL, conjunctivae normal, not pale, anicteric sclerae, EOM intact bilaterally ENMT: External ear and nose normal, oropharynx normal Respiratory: Normal respiratory effort, no respiratory distress, lungs clear to auscultation, no crackles and no wheezes Cardiovascular: RRR S1 S2 Gastrointestinal (Abdomen): Abdomen is not distended, soft, non-tender to palpation, no guarding, no palpable hepatosplenomegaly, normal bowel sounds Musculoskeletal: Bilateral leg edema. Dressing over RLE Neurologic: Alert and oriented x 3, No focal weakness, sensation grossly intact Psychiatric: Euthymic affect Trop is 17 Dopplers negative for DVT With report of SUAREZ, chest tightness, lower extremity swelling and her cardiac hx; will give IV lasix for possible mild CHF Will get Card eval per family's wishes Trend trop Tele monitor I spent a total of 45 minutes coordinating, documenting and providing care for this patient excluding time spent in performance of separately billed services
[2024-05-12 15:12] LABS: Troponin I High Sensitivity 17.9 pg/ml (0-14)
[2024-05-12] MEDS: FUROSEMIDE INJ 20 MG/2 ML VIAL IV ONE ×2 (15:47→17:19)
[2024-05-12] MEDS ORDERED: ALBUTEROL HFA 8 GM INHALER INH PRN (15:58)
[2024-05-12 16:59] LABS: Thyroid Stimulating Hormone 1.157 uIu/ml (0.300-4.500)
--- OUTSIDE RECORDS SUMMARY | 2024-05-12 21:47 | External Medical Summary | Summary of Care ---
Author Name Unknown Organization [facility] Address [address] [place] [address] Phone [phone] Care Team Providers Care Library Circulation Technician Name Role Phone Leyda Ahn MD Primary Care Provider [phone] Reason for Visit * Reason Onset Date Comments Test Results Lab 01/27/2024 Encounter Details Date Type Department Care Team (Late st Contact Info) Description 01/27/2024 Telephone General Internal Medicine [facility] [address] [facility] [place] [address] Maxwell Sellers MD 200 [place] [address] Test Results Lab Allergies Active Allergy Reactions Criticality Noted Date Comments Pantoprazole 01/29/2022 Itchiness, rash Penicillins Hives 01/13/2003 hives documented as of this encounter (statuses as of 04/27/2024) Medications Acetaminophen ER 650 MG Oral Tablet Extended Release 2 pill daily in AM & 2 pills in afternoon if needed 5 Active Albuterol Sulfate HFA 108 (90 Base) MCG/ACT Inhalation Aerosol SolutionIndicatio ns:COPD, mild (HCC) Inhale by mouth 2 Puffs every 4 hours as needed for Cough, Shortness of Breath or Wheezing. 20.1 g 3 2 Active Aspirin 81 MG Oral Tablet Delayed Release Take 1 Tablet by mouth in the morning. Active oxygen IN GAS 2L/min(Oxygen) continuous via nasal cannula. 1 Each 3 Active Metoprolol Succinate ER 25 MG Oral Tablet Extended Release 24 Hour (toPROL XL)Indications:Pa roxysmal atrial fibrillation (HCC) Take 0.5 Tablets by mouth daily. 45 Tablet 3 4 Active Mesalamine 1.2 GM Oral Tablet Delayed Release (Lialda) TAKE 2 TABLETS BY MOUTH EVERY MORNING 180 Tablet 3 4 Active Hospital, Clinic, or Other Facility Administered Medication Ordered Dose Route Frequency Start Date End Date Status albuterol sulfate (PROVENTIL) (2.5 MG/3ML) 0.083% inhalation solution 2.5 mgIndications:COPD, severity to be determined (HCC),Chondrosarcoma (HCC),Pulmonary hypertension (HCC) 2.5 mg NEBULIZER PRN 01/07/2019 Active documented as of this encounter (statuses as of 04/27/2024) Active Problems Problem Noted Date Diagnosed Date Thrombocytopenia 04/05/2024 Elevated bilirubin 04/05/2024 Hemangioma of liver 04/05/2024 Osteopenia of necks of both femurs 04/05/2024 Atrial flutter 11/30/2023 Venous insufficiency 09/12/2023 Chronic rhinitis 09/12/2023 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) 04/29/2010 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 Acquired hypothyroidism 05/21/2007 Cervical spondylosis 02/11/2005 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 documented as of this encounter (statuses as of 04/27/2024) Resolved Problems Problem Noted Date Diagnosed Date Resolved Date Permanent atrial fibrillation 03/28/2019 10/28/2021 Chronic systolic CHF (conges tive heart failure) 03/28/2019 01/03/2021 CHF with right heart failure 03/21/2019 03/12/2022 Atherosclerosis of aorta 11/16/2018 Carpal tunnel syndrome 03/28/201302/10 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 [facility] [place] asymptomatic en plaque cavernous sinus meningioma and I would not recommend treatment for this, either. ICD-10 update of inactive term ADVANCE DIRECTIVE INFORMATION 11/11/2004 03/12/2022 Overview (11/11/2004): No, Advance Directive brochure given to patient. MITRAL INSUF-AORT STENOS 11/09/200310/2016 Overview (02/15/2007): NEEDS YEARLY ECHOCARDIOGRAMS Other ventral hernia without mention of obstruction or gangrene 09/14/2003 02/10/2017 Overview (05/08/2005): 553.21 INCISIONAL HERNIA Healing well after 03/29 surgical repair LOC PRIM [id number] 05/09/2003 10/0 10/2016 Esotropia 01/13/2003 02/10/2017 Overview (01/13/2003): 11/24- R sixth nerve palsy- improving MRI/MRA negative Alopecia 01/13/2003 02/10/2017 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/2002 09/20/2018 Overview (06/16/2002): not bx proven DIVERTICULOSIS OF COLON 06/16/200202/22 Menopause 06/16/2002 10/23/2021 Abnormal weight gain 06/16/2002 017 documented as of this encounter (statuses as of 04/27/2024) Immunizations Name Administration Dates Next Due COVID-19 mRNA, LNP-s, No Pre serve, 2-Dose Series (Moderna) 08/30/2020,07/25/2020 COVID-19, MRNA-LNP, PF, 30 M CG/0.3 mL, 12 YRS AND ABOVE, IM (PFIZER-Comirnaty) 09/29/2023 COVID-19, mRNA, LNP-s, PF, B ooster, 100mcg/0.5mg (Moderna) 05/13/2021 Covid-19, Mrna, Lnp-s, Pf, B ivalent, 30 Mcg, IM, 12 yrs and above (Pfizer) 03/18/2022 PPD 09/27/2022,09/19/2022,02/14/2011 Pneumococcal Conjugate Vacc, 13 Valent (Prevnar) 11/16/2014 Pneumococcal Polysaccharide PPV23 (Pneumovax) 12/06/2021,02/22/2007 Season Influenza, Quad, PF, Adjuvanted, 65+ Yrs, IM (FLUAD) 02/20/2020 Seasonal Influenza Vac., MDV , IM, 0.5 mL (Fluzone) 02/08/2013,03/15/2012,02/11/2011,04/29,04/04/2009,03/23/2008,02/25/2007 ,03/17/2006 Seasonal Influenza Virus Vac cine, Unspecified Formulation 02/16/2023,02/19/2022,02/27/2021,02/19,02/16/2019 Seasonal Influenza, High Dos e, Trivalent, PF, IM (Fluzone HD) 01/24/2020 Seasonal Influenza, PF, 6 M & above, IM , (FluLaval or Fluzone) 02/16/2019,02/09/2018 Seasonal Influenza, Quadriva lent Hd (Fluzone Hd) 02/16/2023,02/19/2022,02/27/2021 Seasonal Influenza, Quadriva lent, No Preserve, IM 02/10/2017,03/23/2016,03/20/2015 TD - Tetanus/Diptheria (ADULT) 10/13/2007 TDAP (age 10 and older)(Boostrix) 03/02/2019, Varicella Zoster Vaccine (Adult) 09/14/2014 Zoster Vaccine Recombinant (Shingrix) 09/29/2023 ,09/14/2014 documented as of this encounter Social History [...] money to get more. 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 * Telephone Encounter - Heaven Mckoy CMA - 01/27/2024 11:27 AM EDT Attempted to call, LVM for patient to return call. Please transfer to designated nurse line for information. * Telephone Encounter - Heaven Mckoy CMA - 01/27/2024 11:27 AM EDT ----- Message from Maxwell Sellers MD sent at 01/27/2024 8:37 AM EDT ----- Hgb a little low, but stable, recheck 1 month Lft slightly high, but stable, recheck 1 month documented in this encounter Plan of Treatment Upcoming Encounters Date Type Department Care Team (Late st Contact Info) Description 05/26/2024 10:20 AM EST Office Visit Rheumatology [address] [place] [address] Jose Johnston MD [address] [place] [address] [place] [address] 05/30/2024 10:30 AM EST Office Visit Cardiology, [facility] 132 [facility] [place] [address] Rajesh Jordan MD [address] [place] [address] 08/12/2024 1:00 PM EDT Office Visit General Internal Medicine [facility] [address] [place] [address] Leyda Ahn MD 200 [facility] [place] [address] 08/17/2024 9:40 AM EDT Office Visit Gastroenterology, [facility] [address] [place] [address] Eduar Beckham MD [address] [place] [address] 10/20/2024 2:30 PM EDT Office Visit Hematology/Oncology [facility] [place] 200 [facility] [place] [address] Ghada Whaley, DISTRICT ADMINISTRATIVE ASSISTANT [address] [place] [address] Scheduled Procedures Name Priority Associated Diagnoses Date/Ti me COLONOSCOPY FLEXIBLE PROXIMA L DIAGNOSTIC Recall IBD (inflammatory bowel disease) Health Maintenance Due Date Last Done Comments DXA Scan 08/10/2023 08/09/2020, 07/23, 11/07/2009, Additional history exists Colonoscopy 12/26/2023 12/25/2021, 07/2021, 09/24/2018, Additional history exists COVID-19 Vaccine ( season) 2024 09/29/2023, 03/18/2022, 05/13/2021, Additional history exists Adult Wellness Visit 05/07/2024 05/07/2023 Depression Screening 05/15/2024 05/15/2023 DIG LEVEL FOR MEDICATION MONITORING YEARLY 04/04/2025 04/04/2024, 02/16/2023, 10/28/2021, Additional history exists TSH 04/04/2025 04/04/2024, 12/24, 05/15/2023, Additional history exists O2 ASSESSMENT COMPLETED IN PAST YEAR FOR COPD 04/15/2025 04/15/2024 DTap/Tdap Vaccines (3 - Td or Tdap) 03/02/2029 03/02/2019, 09/14/2014, 10/13/2007 Alpha-1 Antitrypsin Completed 11/01/2021 Pneumococcal Vaccine: 65+ Years Completed 12/06/2021, 11/16/2014, 02/22/2007, Additional history exists RETIRED - COLONOSCOPY-EVERY 2 YRS AGES 18-100 Discontinued 12/25/2021, 12/25/2021, 09/24/2018, Additional history exists Influenza Vaccine (FLU shot) Completed 02/02/2024, 02/16/2023, 02/16/2023, Additional history exists Zoster Vaccines Completed 02/02/2024, 050 11/2023, 09/14/2014, Additional history exists HPV (Gardasil) Vaccine Aged Out No lo nger eligible based on patient's age to complete this topic Hepatitis B Vaccine Aged Out No longe r eligible based on patient's age to complete this topic MENINGOCOCCAL (MENACTRA/MENVEO) Aged Out No longer eligible based on patient's age to complete this topic documented as of this encounter Medical Devices Implanted Type Area Sales Representative Livestock Device Identifier Shelf Expiration Date Model / Serial / Lot Valve Ce Aortic 21mm [id number] - [id number] Implanted:Qty : 1 on 04/17[place]2010 [place] [facility] [place] - Non Human N/A: Chest FRY LIFESCIKelan ELISABETH 04/17/2010 3000TFX-2 / [id number] / Patch Pericard 8x14cm [id number] - [id number] Implanted:Qty : 1 on 04/17/2010 [place] [facility] [place] - Non Human N/A: Chest [employer] 12/05/2014 -[id number] / / [id number] Sut Steel 6 M654g - [id number] Implanted:Qty : 4 on 04/17/2010 at [place] [facility] [place] N/A: Chest DO NOT USE 06/17/2014 [id number] / / [id number] documented as of this encounter Advance Directives Documents on File Type Date Recorded Patient Information Systems Auditor Expl 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 Care Teams Library Circulation Technician Relationship Specialty Start Date End Date Leyda Ahn MD [address] [place] [address], [place] [address] PCP - General Internal Medicine 02/02/24 documented as of this encounter
--- OUTSIDE RECORDS SUMMARY | 2024-05-12 21:47 | External Medical Summary | Summary of Care ---
Author Name Unknown Organization [facility] Address [address] [place] [address] Phone [phone] Care Team Providers Care Manager Documentation Name Role Phone Leyda Ahn MD Primary Care Provider Reason for Visit * Reason Onset Date Comments Medication Refill 05/04/2024 Encounter Details Date Type Department Care Team (Late st Contact Info) Description 05/04/2024 Refill Cardiology, [facility] [address] [place] [address] Rajesh Jordan MD [address] [place] [address] Allergies Active Allergy Reactions Criticality Noted Date Comments Pantoprazole 01/29/2022 Itchiness, rash Penicillins Hives 01/13/2003 hives documented as of this encounter (statuses as of 05/05/2024) Medications Acetaminophen ER 650 MG Oral Tablet [...] EVERY MORNING 180 Tablet 3 4 Active Clobetasol Propionate 0.05 % External SolutionIndication s:Pruritic dermatosis of scalp,Scalp itch Apply topically to affected area 2 times a day. On scalp , use till better then as needed 25 mL 1 4 Active Hydrocortisone 2.5 % External CreamIndications:E czematous skin lesions,Dry skin Apply topically to affected area 2 times a day. To affected area. On Rt upper back till better then as needed 30 g 4 Active Zoster Vac Recomb Adjuvanted 50 MCG/0.5ML Intramuscular Suspension Reconstituted (Shingrix)Indicati ons:Need for shingles vaccine Inject 0.5 mL into a large muscle now and repeat dose in 60 to 180 days 1 Each 1 4 Active Digoxin 125 MCG Oral Tablet (Lanoxin) Take one three days per week 36 Tablet 3 4 Active Gabapentin 100 MG Oral Capsule (Neurontin)Indicat ions:Idiopathic peripheral neuropathy,Spinal stenosis of lumbar region without neurogenic claudication Take 1 tab daily, 2nd as needed per pt 04/17 4 Active Cetirizine HCl 10 MG Oral Tablet (ZyrTEC Allergy)Indication s:Chronic rhinitis Take 1 Tablet by mouth in the morning. 4 Active Furosemide 40 MG Oral Tablet (Lasix)Indications :Paroxysmal atrial fibrillation (HCC),Paroxysmal atrial flutter (HCC),Stenosis of prosthetic aortic valve, sequela,History of transcatheter aortic valve replacement (TAVR),Bilateral leg edema,Chronic diastolic heart failure due to valvular disease (HCC),Pulmonary hypertension (HCC) 20 mg tue,nigel,Saturd ay from 04/05/2024 1 Tablet 4 Active B-12 1000 MCG Oral TabletIndications: B12 deficiency 1 tab daily, start 04/05/2024 4 Active Levothyroxine Sodium 100 MCG Oral Tablet (Levoxyl)Indicatio ns:Acquired hypothyroidism Take 1 Tablet by mouth in the morning. (at least 30 min prior to breakfast or other meds)--dec 02/03/2024, lab 10 wks. 90 Tablet Active Hospital, Clinic, or Other Facility Administered Medication Ordered Dose Route Frequency Start Date End Date Status albuterol sulfate (PROVENTIL) (2.5 MG/3ML) 0.083% inhalation solution 2.5 mgIndications:COPD, severity to be determined (HCC),Chondrosarcoma (HCC),Pulmonary hypertension (HCC) 2.5 mg NEBULIZER PRN 01/07/2019 Active documented as of this encounter (statuses as of 05/05/2024) Active Problems Problem Noted Date Diagnosed Date [...] as of this encounter (statuses as of 05/05/2024) Resolved Problems Problem Noted Date Diagnosed Date Resolved Date Permanent atrial fibrillation 03/28/2019 10/28/2021 Chronic systolic CHF (conges tive heart failure) 03/28/2019 01/03/2021 CHF with right heart failure 03/21/2019 03/12/2022 Atherosclerosis of aorta 11/16/2018 Carpal tunnel syndrome 03/28/201302/10 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 Henriquez [facility] [place] asymptomatic en plaque cavernous sinus meningioma [...] well after 03/29 surgical repair LOC PRIM [id number] 05/09/2003 1010/2016 Esotropia 01/13/2003 02/10/2017 Overview (01/13/2003): /03- R sixth nerve palsy- improving MRI/MRA negative Alopecia 01/13/2003 02/10/2017 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/2002 09/20/2018 Overview (06/16/2002): not bx proven DIVERTICULOSIS OF COLON 06/16/200202/22 Menopause 06/16/2002 10/23/2021 Abnormal weight gain 06/16/2002 017 documented as of this encounter (statuses as of 05/05/2024) Immunizations Name Administration Dates Next Due COVID-19 mRNA, LNP-s, No Pre serve, 2-Dose Series (Moderna) 08/30/2020,07/25/2020 COVID-19, MRNA-LNP, PF, 30 M CG/0.3 mL, 12 YRS AND ABOVE, IM ([facility]) 09/29/2023 COVID-19, mRNA, LNP-s, PF, B ooster, [...] Dos e, Trivalent, PF, IM (Fluzone HD) 02/02/2024,01/24/2020 Seasonal Influenza, PF, 6 M & above, IM , (FluLaval or Fluzone) 02/16/2019,02/09/2018 Seasonal Influenza, Quadriva lent Hd (Fluzone Hd) 02/16/2023,02/19/2022,02/27/2021 Seasonal Influenza, Quadriva lent, No Preserve, IM 02/10/2017,03/23/2016,03/20/2015 TD - Tetanus/Diptheria (ADULT) 10/13/2007 TDAP (age 10 and older)(Boostrix) 03/02/2019, Varicella Zoster Vaccine (Adult) 09/14/2014 Zoster Vaccine Recombinant (Shingrix) 02/02/2024 ,09/29/2023,09/14/2014 documented as of this encounter Social History [...] Date 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 on file Not on file Not on file documented as of this encounter Miscellaneous Notes * Telephone Encounter - Kyara Xiao ingris - 05/05/2024 12:54 PM ESTRefused Prescriptions: Disp Refills Digoxin 125 MCG Oral Tablet (Lanoxin) 36 Tab*3 Sig: Take one three days per weekRefused By: Harish XIAO for Refusal: Too soon * Telephone Encounter - Kyara Xiao RPh - 05/05/2024 12:50 PM EST Medication prescribed 03/02/24 for year Kyara Ba, PharmD Clinical Pharmacist [facility] 05/05/2024, 12:52 PM * Telephone Encounter - Slade Capellan two - 05/04/2024 4:28 PM ESTPending Prescriptions: Disp Refills Digoxin 125 MCG Oral Tablet (Lanoxin) 36 Tab*3 Sig: Take one three days per week * Telephone Encounter - Slade Capellan two - 05/04/2024 4:26 PM EST Did you pend patient's preferred pharmacy and medication before forwarding?yes Pharmacy: [id number] Pending Prescriptions: Disp Refills Digoxin 125 MCG Oral Tablet (Lanoxin) 36 Tab*3 Sig: Take one three days per week Last Visit: 03/02/2024 (in office), Visit date not found (telemedicine) Next Visit: 05/30/2024 If no future appointments scheduled, and last appointment is greater than a year ago, please schedule patient for a follow-up appointment Last date the medication was ordered: 03/02/2024 Is this request for a controlled substance?No Urine Drug Screen:No results found. However, due to the size of the patient record, not all encounters were searched. Please check Results Review for a complete set of results. Patient Phone Numbers Labs: Lab Results Component Value Date/Time CREAT 0.7 04/04/2024 01:22 PM CREAT 0.42 (L) 09/19/2022 03:07 AM CREAT 1.0 06/15/2020 01:48 PM POTASSIUM 5.3 (H) 04/04/2024 01:22 PM POTASSIUM 3.9 09/19/2022 03:07 AM POTASSIUM 4.2 06/15/2020 01:48 PM TSH 1.59 04/04/2024 01:22 PM TSH 0.174 (A) 11/12/2021 12:00 AM TSH 0.87 06/15/2020 01:48 PM LDL 78 06/15/2020 01:48 PM LDL NOT APPLICABLE 06/15/2020 01:48 PM ALT 16 04/04/2024 01:22 PM ALT 25 06/15/2020 01:48 PM HGBA1C 5.0 06/15/2020 01:48 PM documented in this encounter Plan of Treatment Upcoming Encounters Date Type Department Care Team (Late st Contact Info) Description 05/26/2024 10:20 AM EST Office Visit Rheumatology [place] [address] [place] [address] Jose Johnston MD [address] [place] [address] [place] [address] 05/30/2024 10:30 AM EST Office Visit Cardiology, [facility] [address] [place] [address] Rajesh Jordan MD [address] [place] [address] 08/12/2024 1:00 PM EDT Office Visit General Internal Medicine [facility] 200 [place] [address] Leyda Ahn MD 200 [place] [address] 08/17/2024 9:40 AM EDT Office Visit Gastroenterology, [facility] [address] [place] [address] Eduar Beckham MD [address] [place] [address] 10/20/2024 2:30 PM EDT Office Visit Hematology/Oncology [facility] 200 [facility] [place] [phone] Ghada Whaley CRNP 400 [facility] [place] [address] Scheduled Procedures Name Priority Associated Diagnoses Date/Ti me COLONOSCOPY FLEXIBLE PROXIMA L DIAGNOSTIC Recall IBD (inflammatory bowel disease) Health Maintenance Due Date Last Done Comments DXA Scan 08/10/2023 08/09/2020, 07/23, 11/07/2009, Additional history exists Colonoscopy 12/26/2023 12/25/2021, 0807/2021, 09/24/2018, Additional history exists COVID-19 Vaccine ( [...] Additional history exists Zoster Vaccines Completed 02/02/2024, 11/2023, 09/14/2014, Additional history exists HPV (Gardasil) [...] this encounter Medical Devices Implanted Type Area Jumpbasting Armhole Baster Device Identifier Shelf Expiration Date Model / Serial / Lot Valve Ce Aortic 21mm 3000tfx - [id number] Implanted:Qty : 1 on 04/17/2010 at [place] [facility] Tissue - Non Human N/A: Chest FRY LIFESCIDiscoveRX ELISABETH 04/17/2010 3000TFX-[id number] / Patch Pericard 8x14cm [id number] - [id number] Implanted:Qty : 1 on 04/17/2010 at [place] [facility] Tissue - Non Human N/A: Chest [employer] 12/05/2014 -[id number] / / [id number] Sut Steel 6 M654g - [id number] Implanted:Qty : 4 on 04/17/2010 at [place] [facility] N/A: Chest DO NOT USE 06/17/2014 [id number] / / [id number] documented as of this encounter Advance Directives Documents on File Type Date Recorded Patient Epoxy Fabrication Supervisor Expl 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 Care Teams Manager Documentation Relationship Specialty Start Date End Date Leyda Ahn MD [address] [place] [address], [place] [address] PCP - General Internal Medicine 02/02/24 documented as of this encounter
--- OUTSIDE RECORDS SUMMARY | 2024-05-12 21:47 | External Medical Summary | Summary of Care ---
Author Name Unknown Organization [facility] Address [address] [place] [address] Phone [phone] Care Team Providers Care Supervisor Plastics Name Role Phone Leyda Ahn MD Primary Care Provider [phone] Reason for Visit * Reason Onset Date Comments Medication Refill 05/04/2024 Encounter Details Date Type Department Care Team (Late st Contact Info) Description 05/04/2024 Refill General Internal Medicine [facility] [address] [place] [address] Leyda Ahn MD [address] [place] [address] Paroxysmal atrial fibrillation (HCC); Paroxysmal atrial flutter (HCC); Stenosis of prosthetic aortic valve, sequela; History of transcatheter aortic valve replacement (TAVR); Bilateral leg edema; Chronic diastolic heart failure due to valvular disease (HCC); Pulmonary hypertension (HCC) Allergies Active Allergy Reactions Criticality Noted Date Comments Pantoprazole 01/29/2022 Itchiness, rash Penicillins Hives 01/13/2003 hives documented as of this encounter (statuses as of 05/04/2024) Medications Acetaminophen ER 650 MG Oral Tablet [...] mg tue,nigel,Saturd ay from 04/05/2024 1 Tablet Active B-12 1000 MCG Oral TabletIndications: B12 deficiency 1 tab daily, start 04/05/2024 Active Levothyroxine Sodium 100 MCG Oral Tablet [...] as of this encounter (statuses as of 05/04/2024) Active Problems Problem Noted Date Diagnosed Date [...] as of this encounter (statuses as of 05/04/2024) Resolved Problems Problem Noted Date Diagnosed Date Resolved Date Permanent atrial fibrillation 03/28/2019 10/28/2021 Chronic systolic CHF (conges tive heart failure) 03/28/2019 01/03/2021 CHF with right heart failure 03/21/2019 03/12/2022 Atherosclerosis of aorta 11/16/2018 Carpal tunnel syndrome 03/28/201302/10 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 Henriquez [facility] [place] asymptomatic en plaque cavernous sinus meningioma [...] well after 03/29 surgical repair LOC PRIM [id number] 05/09/2003 10/0 10/2016 Esotropia 01/13/2003 02/10/2017 Overview (01/13/2003): 11/24- R sixth nerve palsy- improving MRI/MRA negative Alopecia 01/13/2003 02/10/2017 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/2002 09/20/2018 Overview (06/16/2002): not bx proven DIVERTICULOSIS OF COLON 06/16/200202/22 Menopause 06/16/2002 10/23/2021 Abnormal weight gain 06/16/2002 017 documented as of this encounter (statuses as of 05/04/2024) Immunizations Name Administration Dates Next Due COVID-19 mRNA, LNP-s, No Pre serve, 2-Dose Series (Moderna) 08/30/2020,07/25/2020 COVID-19, MRNA-LNP, PF, 30 M CG/0.3 mL, 12 YRS AND ABOVE, IM (Geosho-Comirnaty) 09/29/2023 COVID-19, mRNA, LNP-s, PF, B ooster, 100mcg/0.5mg (Moderna) 05/13/2021 Covid-19, Mrna, Lnp-s, Pf, B ivalent, 30 Mcg, IM, 12 yrs and above ([email or web address]) 03/18/2022 PPD 09/27/2022,09/19/2022,02/14/2011 Pneumococcal Conjugate Vacc, 13 [...] Date Job End Date [employer] Not on file Not on file Not on file documented as of this encounter Miscellaneous Notes * Telephone Encounter - Slade Capellan - 05/04/2024 3:19 PM ESTRefused Prescriptions: Disp Refills Furosemide 40 MG Oral Tablet (Lasix) 1 Tabl*0 Si mg thu,thu,Thursday from 4Refused By: Rhianna CAPELLAN for Refusal: Duplicate Request documented in this encounter Plan of Treatment Upcoming Encounters Date Type Department Care Team (Late st Contact Info) Description 05/26/2024 10:20 AM EST Office Visit Rheumatology [address] [place] [address] Jose Johnston MD [address] [place] [address] [place] [address] 05/30/2024 10:30 AM EST Office Visit Cardiology, [facility] [address] [address] Rajesh Jordan MD [address] [address] 08/12/2024 1:00 PM EDT Office Visit General Internal Medicine [address] [place] [address] Leyda Ahn MD [address] [facility], [place] [address] 08/17/2024 9:40 AM EDT Office Visit Gastroenterology, [facility] [address] [address] Eduar Beckham MD [address] [address] 10/20/2024 2:30 PM EDT Office Visit Hematology/Oncology [facility] [address] [place] [address] Ghada Maldonado CRNP [address] [place] [address] Scheduled Procedures Name Priority Associated Diagnoses Date/Ti [...] encounter Medical Devices Implanted Type Area Manager Utilization Management Device Identifier Shelf Expiration Date Model / Serial / Lot Valve Ce Aortic 21mm 3000tfx - [id number] Implanted:Qty : 1 on 04/17/2010 [place] [facility] [place] Tissue - Non Human N/A: Chest [employer] 04/17/2010 3000TFX-2 / [id number] / Patch Pericard 8x14cm [id number] - [id number] Implanted:Qty : 1 on 04/17/2010 at [place] [facility] [place] Tissue - Non Human N/A: Chest [employer] 12/05/2014 -[id number] / / [id number] S[employer] 6 [id number] - [id number] Implanted:Qty : 4 on 04/17/2010 [place] [facility] [place] N/A: Chest DO NOT USE 06/17/2014 [id number] / / [id number] documented as of this encounter Visit Diagnoses Diagnosis Paroxysmal atrial fibrillation (HCC) Atrial fibrillation Paroxysmal atrial flutter (HCC) Atrial flutter Stenosis of prosthetic aortic valve, 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 Care Teams Supervisor Plastics Relationship Specialty Start Date End Date Leyda Ahn MD [address] [place] [address] PCP - General Internal Medicine 02/02/24 documented as of this encounter
--- OUTSIDE RECORDS SUMMARY | 2024-05-12 21:47 | External Medical Summary | Summary of Care ---
Author Name Unknown Organization [facility] Address [address] [place] [address] Phone [phone] Care Team Providers Care Senior Medical Billing Specialist Name Role Phone Leyda Ahn MD Primary Care Provider [phone] Reason for Visit * Reason Comments NEW PATIENT * Evaluate & Treat - Unlimited Visits (Within 30 days (routine)) - Authorized Specialty Diagnoses / Procedures Referred By Contfunmilayo t Referred To Contact Hematology/Oncology / Hematology Oncology Diagnoses Thrombocytopenia (HCC) Elevated bilirubin Leyda Ahn MD [address] [place] [address] Phone: tel: fax: Referral ID Status Reason Start Date Expiration Date Visits Requested Visits Authorized [id number] Authorized Specialty Services Required [phone] Encounter Details Date Type Department Care Team (Latest Contact Info) Description 04/15/2024 10:00 AM EST Office Visit Hematology/Oncology [facility] [address] [place] [id number] Ghada Whaley CRNP [address] [place] [address] Thrombocytopenia (HCC)* Allergies Active Allergy Reactions Criticality Noted Date Comments Pantoprazole 01/29/2022 Itchiness, rash Penicillins Hives 01/13/2003 hives documented as of this encounter (statuses as of 04/24/2024) Medications Acetaminophen ER 650 MG Oral Tablet [...] per week 36 Tablet 3 4 Active Levothyroxine Sodium 100 MCG Oral Tablet (Levoxyl)Indicatio ns:Acquired hypothyroidism TAKE 1 TABLET BY MOUTH IN THE MORNING. (AT LEAST 30 MIN PRIOR TO BREAKFAST OR OTHER MEDS)--DEC 02/03/2024, LAB 10 WKS. 30 Tablet 4 Active Gabapentin 100 MG Oral Capsule [...] 1 tab daily, start 04/05/2024 4 Active Hospital, Clinic, or Other Facility Administered Medication Ordered Dose Route Frequency Start Date End Date Status albuterol sulfate (PROVENTIL) (2.5 MG/3ML) 0.083% inhalation solution 2.5 mgIndications:COPD, severity to be determined (HCC),Chondrosarcoma (HCC),Pulmonary hypertension (HCC) 2.5 mg NEBULIZER PRN 01/07/2019 Active documented as of this encounter (statuses as of 04/24/2024) Active Problems Problem Noted Date Diagnosed Date [...] as of this encounter (statuses as of 04/24/2024) Resolved Problems Problem Noted Date Diagnosed Date Resolved Date Permanent atrial fibrillation 03/28/2019 10/28/2021 Chronic systolic CHF (conges tive heart failure) 03/28/2019 01/03/2021 CHF with right heart failure 03/21/2019 03/12/2022 Atherosclerosis of aorta 11/16/2018 Carpal tunnel syndrome 03/28/201302/10 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 Henriquez [facility] N/S asymptomatic en plaque cavernous [...] well after 03/29 surgical repair LOC PRIM [id number] 05/09/2003 1010/2016 Esotropia 01/13/2003 02/10/2017 Overview (01/13/2003): 11/24- R sixth nerve palsy- improving MRI/MRA negative Alopecia 01/13/2003 02/10/2017 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/2002 09/20/2018 Overview (06/16/2002): not bx proven DIVERTICULOSIS OF COLON 06/16/200202/22 Menopause 06/16/2002 10/23/2021 Abnormal weight gain 06/16/2002 017 documented as of this encounter (statuses as of 04/24/2024) Immunizations Name Administration Dates Next Due COVID-19 [...] Date 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 Not on file Not on file Not on file documented as of this encounter Last Filed Vital Signs Vital Sign Reading Time Taken Comments Blood Pressure 128/80 04/15/2024 10:14 AM EST Pulse 105 04/15/2024 10:14 AM EST Temperature 36.2 C (97.1 F) 04/15/2024 10:[address] Respiratory Rate - - Oxygen Saturation 90% 04/15/2024 10:14 AM EST Inhaled Oxygen Concentration - - Weight 62 kg (136 lb 9.6 oz) 04/15/2024 10:14 AM EST Height 170.2 cm (5' 7") 04/15/2024 10:14 AM EST Body Mass Index 21.39 04/15/2024 10:14 AM EST documented in this encounter Progress Notes * Ghada Whaley CRNP - 04/15/2024 10:10 AM EST Hematology/Oncology Outpatient Clinic note [facility] [address] [facility] [place] [address] Name: Nereida Stephen Date: 04/15/2024 REFERRED BY: Dr. Leyda Ahn CHIEF COMPLAINT: Nereida Stephen is a 84 year old female here today for new consultation for thrombocytopenia. HISTORY OF PRESENT ILLNESS: 84 y/o female referred for thrombocytopenia. 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 Takes aspirin 81 mg daily. Patient with chronic mildly low platelet count since November 2023. Most recent CBC from 04/04/24 showing platelet count of 107K. No current abnormalities in other cell lines. MRI abdomen completed 02/26/24 showing top normal size liver with spleen WNL. Denies any excessive bruising or bleeding issues. Does bruise easily. Does drink alcohol a couple times a week when she goes out to eat, 1-2 drinks. Previously drank alcohol on a daily basis but stopped this over the summer. Drank alcohol on a daily basis for approximately 20-30 years. 1-2 drinks a night. Has not yet started the oral vitamin b12 supplement, this was just recommended last week by her PCP. Has a lot of complaints of light headedness and dizziness. Followed closely by cardiology. Closely watching her weight to assess for fluid overload in her belly. Taking flurosemide T, R, S. Takes extra dose if weight gain is noted. Was struggling with constipation previously and treated with Miralax with relief. Denies any blood in her stool. Is not compliant with her home oxygen. Has a lot of daytime fatigue. Patient's past medical history, social history, and family history were reviewed and updated. Past Medical History: Diagnosis Date Aortic valve disorder Cervical spondylosis 02/11/2005 Colitis, enteritis, and gastroenteritis of presumed infectious origin COPD, mild (HCC) 05/08/2005 Crohn's colitis, unspecified complication (HCC) Idiopathic peripheral neuropathy 11/16/2018 Meningioma (HCC) 12/23/2013 Prosthetic aortic valve stenosis 01/06/2022 Restless leg syndrome 05/08/2005 Right internal carotid occlusion 10/04/2017 S/P aortic valve replacement 04/29/2010 Spinal stenosis of lumbar region without neurogenic claudication 03/19/2006 Family History Problem Relation Name Age of Onset Heart Disorder Mother (dec) Lung Disorder Mother Heart Disorder Father (dec) Heart disease Brother Other (Paraplegia due to an accident) Brother Cancer Aunt (Unspecified) paternal;stomach Cancer Aunt (Unspecified) maternal half sister; breast Social History Socioeconomic History Marital status: Spouse name: Not on file Number of children: 3 Years of education: Not on file Highest education level: Not on file Occupational History 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 Tobacco Use Smoking status: Former Current packs/day: 0.00 Average packs/day: 3.0 packs/day for 23.0 years (69.0 ttl pk-yrs) Types: Cigarettes Start date: 05/25/1978 Quit date: 05/25/2001 Years since quittin.9 Smokeless tobacco: Never Vaping Use Vaping status: Never Used Substance and Sexual Activity Alcohol use: Yes [...] History Narrative No pets No mold Social Needs Financial Resource Strain: Low Risk (09/11/2022) [facility] Overall Financial Resource Strain (CARDIA) Difficulty of Paying Living Expenses: Not hard at all Food Insecurity: No Food Insecurity (09/11/2022) [facility] Hunger Vital Sign Worried About Running Out of Food in the Last Year: Never true Ran Out of Food in the Last Year: Never true Transportation Needs: No Transportation Needs (09/11/2022) [facility] from [facility] PRAPARE - Transportation Lack of Transportation (Medical): No Lack of Transportation (Non-Medical): No Social Connections: Not on file Housing Stability: Not on file Review of patient's allergies indicates: Allergen Reactions Pantoprazole Itchiness, rash Penicillins Hives hives Current Outpatient Medications Medication Sig Dispense Refill Acetaminophen ER 650 MG Oral Tablet Extended Release 2 pill daily in AM & 2 pills in afternoon if needed Albuterol Sulfate HFA 108 (90 Base) MCG/ACT Inhalation Aerosol Solution Inhale by mouth 2 Puffs every 4 hours as needed for Cough, Shortness of Breath or Wheezing. 20.1 g 3 Aspirin 81 MG Oral Tablet Delayed Release Take 1 Tablet by mouth in the morning. (Patient not taking: Reported on 04/05/2024) oxygen IN GAS 2L/min(Oxygen) continuous via nasal cannula. 1 Each 0 Metoprolol Succinate ER 25 MG Oral Tablet Extended Release 24 Hour (toPROL XL) Take 0.5 Tablets by mouth daily. 45 Tablet 3 Mesalamine 1.2 GM Oral Tablet Delayed Release (Lialda) TAKE 2 TABLETS BY MOUTH EVERY MORNING 180 Tablet 3 Clobetasol Propionate 0.05 % External Solution Apply topically to affected area 2 times a day. On scalp , use till better then as needed 25 mL 1 Hydrocortisone 2.5 % External Cream Apply topically to affected area 2 times a day. To affected area. On Rt upper back till better then as needed 30 g 0 Zoster Vac Recomb Adjuvanted 50 MCG/0.5ML Intramuscular Suspension Reconstituted (Shingrix) Inject 0.5 mL into a large muscle now and repeat dose in 60 to 180 days 1 Each 1 Digoxin 125 MCG Oral Tablet (Lanoxin) Take one three days per week 36 Tablet 3 Levothyroxine Sodium 100 MCG Oral Tablet (Levoxyl) TAKE 1 TABLET BY MOUTH IN THE MORNING. (AT LEAST30 MIN PRIOR TO BREAKFAST OR OTHER MEDS)--DEC 02/03/2024, LAB 10 WKS. 30 Tablet 0 Gabapentin 100 MG Oral Capsule (Neurontin) Take 1 tab daily, 2nd as needed per pt 04/17 Cetirizine HCl 10 MG Oral Tablet (ZyrTEC Allergy) Take 1 Tablet by mouth in the morning. Furosemide 40 MG Oral Tablet (Lasix) 20 mg thu,thu,Thursday from 04/05/2024 1 Tablet 0 B-12 1000 MCG Oral Tablet 1 tab daily, start 04/05/2024 Current Facility-Administered Medications Medication Dose Route Frequency Provider Last Rate Last Admin albuterol sulfate (PROVENTIL) (2.5 MG/3ML) 0.083% inhalation solution 2.5 mg 2.5 mg Nebulizer PRN Kelsey Bowles DO 2.5 mg at 11/12/21 1153 REVIEW OF SYSTEMS: SEE HPI - otherwise negative OBJECTIVE: Filed Vitals: 04/15/24 1014 BP: 128/80 Pulse: 105 Temp: 36.2 C (97.1 F) TempSrc: Tympanic SpO2: 90% Weight: 62 kg (136 lb 9.6 oz) Height: 1.702 m (5' 7") Wt Readings from Last 5 Encounters: 04/05/24 61.2 kg (134 lb 14.4 oz) 03/02/24 55.3 kg (122 lb) 02/24/24 56.9 kg (125 lb 8 oz) 02/02/24 57.9 kg (127 lb 9.6 oz) 01/21/24 58.5 kg (129 lb) PHYSICAL EXAM: Constitutional: no acute distress Neuro: alert, oriented to person and place, gait normal HEENT: normal: normocephalic, atraumatic; neck with no masses or tenderness; no cervical/supraclavicular lymphadenopathy CV: normal rate and rhythm, +murmur Chest: normal respiratory effort, lungs clear to auscultation Abdomen: softly distended, bowel sounds normal Extremities: +BLE edema Skin: warm and dry LABS: Results for orders placed or performed in visit on 04/04/24 TSH WITH FREE T4 IF INDICATED Result Value Ref Range TSH 1.59 0.27 - 4.20 uIU/mL COMPREHENSIVE METABOLIC PANEL Result Value Ref Range BUN 23 (H) 6 - 20 mg/dL CREATININE 0.7 0.5 - 1.0 mg/dL EGFR 79 >=60 mL/min SODIUM 138 135 - 146 mmol/L POTASSIUM 5.3 (H) 3.5 - 5.1 mmol/L CHLORIDE 99 98 - 107 mmol/L CO2 29 22 - 32 mmol/L ANION GAP 10 7 - 15 mmol/L GLUCOSE 67 (L) 70 - 120 mg/dL Albumin 3.9 3.8 - 5.0 g/dL AST 49 (H) 10 - 35 U/L Alkaline Phosphatase 124 35 - 130 U/L Bilirubin, Total 1.6 (H) <=1.2 mg/dL CALCIUM 9.5 8.4 - 10.2 mg/dL Protein 7.2 6.0 - 8.3 g/dL ALT 16 10 - 35 U/L DIGOXIN LEVEL Result Value Ref Range Digoxin Level 0.7 0.5 - 1.1 ng/mL CBC Result Value Ref Range WBC 4.44 4.00 - 10.80 K/uL RBC 4.14 3.85 - 5.15 M/uL HGB 12.5 12.0 - 15.3 g/dL HCT 40.5 36.0 - 45.2 % MCV 97.8 81.5 - 97.5 fL MCH 30.2 27.0 - 34.0 pg MCHC 30.9 32.0 - 36.0 g/dL RDW 20.0 11.5 - 15.5 % PLT 107 (L) 140 - 400 K/uL MPV 9.8 6.6 - 11.1 fL DIFFERENTIAL, AUTOMATED Result Value Ref Range WBC 4.44 4.00 - 10.80 K/uL Neutrophils % 57.9 40.0 - 75.0 % Lymphocytes % 26.1 18.0 - 42.0 % Monocytes % 14.0 (H) 1.0 - 11.0 % Eosinophils % 0.2 0.0 - 6.0 % Basophils % 1.8 0.0 - 2.0 % Absolute Neutrophils 2.57 1.80 - 7.70 K/uL Absolute Lymphocytes 1.16 1.00 - 4.80 K/ul Absolute Monocytes 0.62 0.00 - 1.10 K/uL Absolute Eosinophils 0.01 0.00 - 0.70 K/uL Absolute Basophils 0.08 0.00 - 0.20 K/uL BILIRUBIN, DIRECT Result Value Ref Range Bilirubin, Direct 0.6 (H) 0.0 - 0.3 mg/dL DIFFERENTIAL, TECHNOLOGIST REVIEW Result Value Ref Range nRBCs *Note: Due to a large number of results and/or encounters for the requested time period, some results have not been displayed. A complete set of results can be found in Results Review. IMPRESSION: Mild Thrombocytopenia: 84 y/o female referred for thrombocytopenia. 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 Takes aspirin 81 mg daily. Patient with chronic mildly low platelet count since November 2023. Most recent CBC from 04/04/24 showing platelet count of 107K. No current abnormalities in other cell lines. MRI abdomen completed 02/26/24 showing top normal size liver with spleen WNL. Denies any excessive bruising or bleeding issues. Does bruise easily. Does drink alcohol a couple times a week when she goes out to eat, 1-2 drinks. Previously drank alcohol on a daily basis but stopped this over the summer. Drank alcohol on a daily basis for approximately 20-30 years. 1-2 drinks a night. Has not yet started the oral vitamin b12 supplement, this was just recommended last week by her PCP. Has a lot of complaints of light headedness and dizziness. Followed closely by cardiology. Closely watching her weight to assess for fluid overload in her belly. Taking flurosemide T, R, S. Takes extra dose if weight gain is noted. Was struggling with constipation previously and treated with Miralax with relief. Denies any blood in her stool. Is not compliant with her home oxygen. Has a lot of daytime fatigue. PLAN: Common diagnoses for asymptomatic outpatients with mild thrombocytopenia include ITP, occult liver disease and MDS. Patient will complete lab work as previously ordered including ferritin, iron screen, vitamin b12, folic acid and ldh. Further recommendations based on results Recommended patient to start oral vitamin b12 supplement as prescribed by PCP. Ok to continue aspirin 81 mg daily with platelet count >50K. If above work up unremarkable recommended continued observation with repeat CBCd in three months. RTC in six months with provider with cbc/diff and cmp RAJAN Matute documented in this encounter Nursing Notes * Jeanne Pham MED ASSIST - 04/15/2024 10:18 AM EST Patient identifed by name and birthdate Do you have any concerns about pain management for today's visit? Yes. Patient instructed to discuss pain concerns with provider during the visit today Living Will or Advance Directive for Health Care as noted on the problem list. [facility] is a way you can talk to your provider on line through e-mail. Would you like to sign up? I can activate it for you? ALREADY ACTIVE Filed Vitals: 04/15/24 1014 BP: 128/80 Pulse: 105 Temp: 36.2 C (97.1 F) TempSrc: Tympanic SpO2: 90% Weight: 62 kg (136 lb 9.6 oz) Height: 1.702 m (5' 7") Patient was instructed to not get up on the exam table/exam chair until directed and assisted by their provider; patient is to remain seated in the chair/ wheelchair/ exam table/ exam chair for fall prevention and safety reasons. Patient is aware to have assistance to step down off exam table/exam chair with personnel. Patient voiced full comprehension of instructions. documented in this encounter Plan of Treatment Upcoming Encounters Date Type Department Care Team (Late st Contact Info) Description 05/26/2024 10:20 AM EST Office Visit Rheumatology [place] [id number] [facility] [place] [address] Jose Johnston MD [address] [place] [address] [place] [address] 05/30/2024 10:30 AM EST Office Visit Cardiology, [facility] [address] [facility] [place] [address] Rajesh Jordan MD [address] [facility] [place] [address] 08/12/2024 1:00 PM EDT Office Visit General Internal Medicine [facility] [address] [facility] [place] [address] Leyda Ahn MD [address] [facility] [place] [address] 08/17/2024 9:40 AM EDT Office Visit Gastroenterology, [facility] [address] [facility] [place] [address] Eduar Beckham MD [address] [facility] [place] [address] 10/20/2024 2:30 PM EDT Office Visit Hematology/Oncology [facility] [address] [facility] [place] [phone] Ghada Whaley CRNP [address] [place] [address] [place] [address] Scheduled Orders Name Type Priority Associated Diagnoses Orde r Schedule CBC WITH WBC DIFFERENTIAL Lab STAT Thrombocytopenia (HCC) Every 3 Months for 4 Occurrences starting 04/24/2024 until 05/25/2025 COMPREHENSIVE METABOLIC PANEL Lab STAT Thrombocytopenia (HCC) Every 6 Months for 2 Occurrences starting 04/24/2024 until 05/25/2025 Scheduled Procedures Name Priority Associated Diagnoses Date/Ti me COLONOSCOPY FLEXIBLE PROXIMA L DIAGNOSTIC Recall IBD (inflammatory bowel disease) Health Maintenance Due Date Last Done Comments DXA Scan 08/10/2023 08/09/2020, 07/23, 11/07/2009, Additional history exists Colonoscopy 12/26/2023 12/25/2021, 07/2021, 09/24/2018, Additional history exists COVID-19 Vaccine (2023- season) 2024 09/29/2023, 03/18/2022, 05/13/2021, Additional history [...] this encounter Medical Devices Implanted Type Area Open Hearth Worker Device Identifier Shelf Expiration Date Model / Serial / Lot Valve Ce Aortic 21mm [id number] - [id number] Implanted:Qty : 1 on 04/17/2010 at [facility] Tissue - Non Human N/A: Chest [employer]ETH 04/17/2010 3000TFX-[id number] / [id number] / Patch Pericard 8x14cm [id number] - [id number] Implanted:Qty : 1 on 04/17/2010 at OR [facility] Tissue - Non Human N/A: Chest [employer] 12/05/2014 [id number] / / [id number] Sut Steel 6 [id number] - [id number] Implanted:Qty : 4 on 04/17/2010 at OR [facility] N/A: Chest DO NOT USE 06/17/2014 [id number] / / [id number] documented as of this encounter Visit Diagnoses Diagnosis Thrombocytopenia (HCC)- Primary Thrombocytopenia, unspecified documented in this encounter Advance Directives Documents on File Type Date Recorded Patient Hammerer Tab Expl 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 Care Teams Senior Medical Billing Specialist Relationship Specialty Start Date End Date Leyda Ahn MD [address] [place] [address] PCP - General Internal Medicine 02/02/24 documented as of this encounter
--- OUTSIDE RECORDS SUMMARY | 2024-05-12 21:47 | External Medical Summary | Summary of Care ---
Author Name Unknown Organization [facility] Address [address] [place] [address] Phone [phone] Care Team Providers Care Manager Of Software Development Name Role Phone Leyda Ahn MD Primary Care Provider [phone] Reason for Visit * Reason Onset Date Comments Advice 04/06/2024 Encounter Details Date Type Department Care Team (Late st Contact Info) Description 04/06/2024 Telephone General Internal Medicine [facility] [address] [facility] [place] [address] Leyda Ahn MD [address] [place] [address] Advice Allergies Active Allergy Reactions Criticality Noted [...] 30 MIN PRIOR TO BREAKFAST OR OTHER MEDS)--02/03/2024, LAB 10 WKS. 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 Henriquez [facility] asymptomatic en plaque cavernous sinus meningioma [...] well after 03/29 surgical repair LOC PRIM [id number] 05/09/2003 10/10/2016 Esotropia 01/13/2003 02/10/2017 Overview (01/13/2003): 7/03- R sixth nerve palsy- improving MRI/MRA [...] CG/0.3 mL, 12 YRS AND ABOVE, IM (Volta-Comirnatel?) 09/29/2023 COVID-19, mRNA, LNP-s, PF, B ooster, 100mcg/0.5mg (Moderna) 05/13/2021 Covid-19, Mrna, Lnp-s, Pf, B ivalent, 30 Mcg, IM, 12 yrs and above (Pfizer) 03/18/2022 PPD 09/27/2022,09/19/2022,02/14/2011 Pneumococcal Conjugate Vacc, 13 Valent (Prevnar) 11/16/2014 Pneumococcal Polysaccharide PPV23 (Pneumovax) 12/06/2021,02/22/2007,10/21/2000 Season Influenza, Quad, PF, Adjuvanted, 65+ Yrs, IM (FLUAD) 02/20/2020 Seasonal Influenza Vac., MDV , IM, 0.5 mL (Fluzone) 02/08/2013,03/15/2012,02/11/2011,04/29,04/04/2009,03/23/2008,02/25/2007 ,03/17/2006,03/19/2005 Seasonal Influenza Virus Vac cine, Unspecified Formulation [...] 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 Thank you * Telephone Encounter - Zina Greenfield RN - 04/06/2024 11:26 AM EST ----- Message from Leyda Ahn MD sent at 04/05/2024 12:57 PM EST ----- Pl fax to [place] [facility] [place], d/w pt today documented in this encounter Plan of Treatment Upcoming Encounters Date Type Department Care Team (Late st Contact Info) Description 05/26/2024 10:20 AM EST Office Visit [address]umatology [address] [place] [address] Jose Johnston MD [address] [place] [address] [place] [address] 05/30/2024 10:30 AM EST Office Visit Cardiology, [facility] [address] [facility] [place] [address] Rajesh Jordan MD [address] [facility] [place] [address] 08/12/2024 1:00 PM EDT Office Visit General Internal Medicine [facility] 200 [facility] [place] [address] Leyda Ahn MD 200 [facility] [place] [address] 08/17/2024 9:40 AM EDT Office Visit Gastroenterology, [facility] [address] [place] [address] Eduar Beckham MD [address] [facility] [place] [address] 10/20/2024 2:30 PM EDT Office Visit Hematology/Oncology [facility] [place] 200 [facility] [place], [place] [address] Ghada Whalye CRNP [address] [place] [address] Scheduled Procedures Name Priority Associated [...] this encounter Medical Devices Implanted Type Area Churn Tender Device Identifier Shelf Expiration Date Model / Serial / Lot Valve Ce Aortic 21mm 3000tfx - [id number] Implanted:Qty : 1 on 04/17/2010 at [place] [facility] Tissue - Non Human N/A: Chest [employer] ELISABETH 04/17/2010 3000TFX-2 [id number] / Patch Pericard 8x14cm [id number] - [id number] Implanted:Qty : 1 on 04/17/2010 at [place] [facility] Tissue - Non Human N/A: Chest [employer] 12/05/2014 PC-0814N / / [id number] Sut Steel 6 M654g - [id number] Implanted:Qty : 4 on 04/17/2010 at [place] [facility] N/A: Chest DO NOT USE 06/17/2014 [id number] / / [id number] documented as of this encounter Advance Directives Documents on File Type Date Recorded 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 Care Teams Manager Of Software Development Relationship Specialty Start Date End Date Leyad Ahn MD [address] [place], [place] [address] PCP - General Internal Medicine 02/02/24 documented as of this encounter
--- OUTSIDE RECORDS SUMMARY | 2024-05-12 21:47 | External Medical Summary | Summary of Care ---
Author Name Unknown Organization [facility] Address [address] [place] [address] Phone [phone] Care Team Providers Care Developer Analyst Name Role Phone Leyda Ahn MD Primary Care Provider [phone] Reason for Visit * Reason Comments eRx-Medication Refill Encounter Details Date Type Department Care Team (Late st Contact Info) Description 05/02/2024 Refill [facility] [address] Leyda Ahn MD [address] [place] [address] Paroxysmal atrial fibrillation (HCC); Paroxysmal atrial flutter [...] valvular disease (HCC),Pulmonary hypertension (HCC) 20 mg jonna,nigel,Crispin ay from 04/05/2024 1 Tablet 4 Active [...] 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 -[employer] 01/08/24.Refused By: GUY WASHINGTON for Refusal: Refill Not Appropriate documented in this encounter Plan of Treatment Upcoming Encounters Date Type Department Care Team (Late st Contact Info) Description 05/26/2024 10:20 AM EST Office Visit Rheumatology [address] [place] [address] Jose Johnston MD [address] [place] [address] [place] [address] 05/30/2024 10:30 AM EST Office Visit Cardiology, [facility] [address] [place] [address] Rajesh Jordan MD [address] [place] [address] 08/12/2024 1:00 PM EDT Office Visit General Internal Medicine [facility] 200 [facility] [place] [address] Leyda Ahn MD 200 [facility], [place] [address] 08/17/2024 9:40 AM EDT Office Visit Gastroenterology, [facility] [address] [place] [address] Eduar Beckham MD [address] [place] [address] 10/20/2024 2:30 PM EDT Office Visit Hematology/Oncology [facility] [address] [facility] [place] [address] Ghada Whaley CRNP [address] [place] [address] Scheduled Procedures Name Priority Associated Diagnoses Date/Ti [...] this encounter Medical Devices Implanted Type Area Underliner Device Identifier Shelf Expiration Date Model / Serial / Lot Valve Ce Aortic 21mm 3000tfx - [id number] Implanted:Qty : 1 on 04[place]17/2010 [place] [facility] - Non Human N/A: Chest [employer] ELISABETH 04/17/2010 3000TFX-2 / [id number] / Patch Pericard 8x14cm [id number] - [id number] Implanted:Qty : 1 on 04/17/2010 [place] [facility] Tissue - Non Human N/A: Chest [employer] 12/05/2014 -0814N / / [id number] Sut Steel 6 M654g - [id number] Implanted:Qty : 4 on 04/17/2010 [place] [facility] N/A: Chest DO NOT USE 06/17/2014 M654G / / [id number] documented as of this encounter Visit Diagnoses [...] Documents on File Type Date Recorded 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 Care Teams Developer Analyst Relationship Specialty Start Date End Date Leyda Ahn MD 200 [facility] [place] [address] PCP - General Internal Medicine 02/02/24 documented as of this encounter
--- OUTSIDE RECORDS SUMMARY | 2024-05-12 21:47 | External Medical Summary | Summary of Care ---
Author Name Unknown Organization [facility] Address [address] [place] [address] Phone [phone] Care Team Providers Care Mobile Security Specialist Name Role Phone Leyda Ahn MD Primary Care Provider [phone] Reason for Visit * Reason Onset Date Comments Medication Refill 05/04/2024 Encounter Details Date Type Department Care Team (Late st Contact Info) Description 05/04/2024 Refill General Internal Medicine [facility] 200 [facility] [place] [address] Leyda Ahn MD [address] [place] [address] Acquired hypothyroidism Allergies Active Allergy Reactions Criticality Noted Date Comments Pantoprazole 01/29/2022 Itchiness, rash Penicillins Hives 01/13/2003 hives documented as of this encounter (statuses as of 05/04/2024) Medications Acetaminophen ER 650 MG Oral Tablet Extended Release 2 pill daily in AM & 2 pills in afternoon if needed 03/20/20 15 Active Albuterol Sulfate HFA 108 (90 Base) MCG/ACT Inhalation Aerosol SolutionIndication s:COPD, mild (HCC) Inhale by mouth 2 Puffs every 4 hours as needed for Cough, Shortness of Breath or Wheezing. 20.1 g 3 11/07/19 22 Active Aspirin 81 MG Oral Tablet Delayed Release Take 1 Tablet by mouth in the morning. Active oxygen IN GAS 2L/min(Oxygen) continuous via nasal cannula. 1 Each 10/10/19 23 Active Metoprolol Succinate ER 25 MG Oral Tablet Extended Release 24 Hour (toPROL XL)Indications:Par oxysmal atrial fibrillation (HCC) Take 0.5 Tablets by mouth daily. 45 Tablet 3 08/12/19 24 Active Mesalamine 1.2 GM Oral Tablet Delayed Release (Lialda) TAKE 2 TABLETS BY MOUTH EVERY MORNING 180 Tablet 3 10/29/19 24 Active Clobetasol Propionate 0.05 % External SolutionIndication s:Pruritic dermatosis of scalp,Scalp itch Apply topically to affected area 2 times a day. On scalp , use till better then as needed 25 mL 1 02/02/20 24 Active Hydrocortisone 2.5 % External CreamIndications:E czematous skin lesions,Dry skin Apply topically to affected area 2 times a day. To affected area. On Rt upper back till better then as needed 30 g 02/02/20 24 Active Zoster Vac Recomb Adjuvanted 50 MCG/0.5ML Intramuscular Suspension Reconstituted (Shingrix)Indicati ons:Need for shingles vaccine Inject 0.5 mL into a large muscle now and repeat dose in 60 to 180 days 1 Each 1 02/02/20 24 Active Digoxin 125 MCG Oral Tablet (Lanoxin) Take one three days per week 36 Tablet 3 03/02/20 24 Active Gabapentin 100 MG Oral Capsule (Neurontin)Indicat ions:Idiopathic peripheral neuropathy,Spinal stenosis of lumbar region without neurogenic claudication Take 1 tab daily, 2nd as needed per pt 04/1704/05/20 24 Active Cetirizine HCl 10 MG Oral Tablet (ZyrTEC Allergy)Indication s:Chronic rhinitis Take 1 Tablet by mouth in the morning. 04/05/20 24 Active Furosemide 40 MG Oral Tablet (Lasix)Indications :Paroxysmal atrial fibrillation (HCC),Paroxysmal atrial flutter (HCC),Stenosis of prosthetic aortic valve, sequela,History of transcatheter aortic valve replacement (TAVR),Bilateral leg edema,Chronic diastolic heart failure due to valvular disease (HCC),Pulmonary hypertension (HCC) 20 mg tue,nigel,Saturd ay from 04/05/2024 1 Tablet 04/05/20 24 Active B-12 1000 MCG Oral TabletIndications: B12 deficiency 1 tab daily, start 04/05/2024 04/05/20 24 Active Levothyroxine Sodium 100 MCG Oral Tablet (Levoxyl)Indicatio ns:Acquired hypothyroidism Take 1 Tablet by mouth in the morning. (at least 30 min prior to breakfast or other meds)--02/03/2024, lab 10 wks. 90 Tablet 05/04/20 24 Active Levothyroxine Sodium 100 MCG Oral Tablet (Levoxyl)Indicatio ns:Acquired hypothyroidism TAKE 1 TABLET BY MOUTH IN THE MORNING. (AT LEAST 30 MIN PRIOR TO BREAKFAST OR OTHER MEDS)--02/03/2024, LAB 10 WKS. 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 (at least 30 min prior to breakfast or other meds)--02/03/2024, lab 10 wks. Authorizing Provider: MAXWELL SELLERS * Telephone Encounter - Kiarra Mahoney CMA - 05/04/2024 12:54 PM ESTPending Prescriptions: Disp Refills Levothyroxine Sodium 100 MCG Oral Tablet (*90 Tab*0 Sig: Take 1 Tablet by mouth in the morning. (at least 30 min prior to breakfast or other meds)--02/03/2024, lab 10 wks. * Telephone Encounter - Kiarra Maohney CMA - 05/04/2024 12:54 PM EST Did you pend patient's preferred pharmacy and medication before forwarding?yes Pharmacy: [id number] [id number] [facility] Pending Prescriptions: Disp Refills Levothyroxine Sodium 100 MCG Oral Tablet *90 Tab*0 Sig: Take 1 Tablet by mouth in the morning. (at least 30 min prior to breakfast or other meds)--02/03/2024, lab 10 wks. Last Visit: 04/05/2024 (in office), Visit date not found (telemedicine) Next Visit: 08/12/2024 If no future appointments scheduled, and last appointment is greater than a year ago, please schedule patient for a follow-up appointment Last date the medication was ordered: 03/29/24 Is this request for a controlled substance?No [...] 01:48 PM HGBA1C 5.0 06/15/2020 01:48 PM * Telephone Encounter - Maryse Ferris OSA - 05/04/2024 11:55 AM EST 90 day request * Telephone Encounter - Maryse Ferris OSA - 05/04/2024 11:54 AM EST Did you pend patient's preferred pharmacy and medication before forwarding?yes Pharmacy: [id number] [id number] [facility] Pending Prescriptions: Disp Refills Levothyroxine Sodium 100 MCG Oral Tablet *30 Tab*0 Sig: Take 1 Tablet by mouth in the morning. (at least 30 min prior to breakfast or other meds)--02/03/2024, lab 10 wks. Last Visit: 04/05/2024 (in office), Visit date not found (telemedicine) Next Visit: 08/12/2024 If no future appointments scheduled, and last appointment is greater than a year ago, please schedule patient for a follow-up appointment Last date the medication was ordered: [id number] Is this request for a controlled substance?No [...] 05/26/2024 10:20 AM EST Office Visit Rheumatology [facility] [address] [place] [address] Jose Johnston MD [address] [place] [address] 05/30/2024 10:30 AM EST Office Visit Cardiology, [facility] 132 [facility] [place] [address] Rajesh Jordan MD [address] [place] [address] 08/12/2024 1:00 PM EDT Office Visit General Internal Medicine [facility] 200 [facility] [place] [address] Lyeda Ahn MD 200 [facility] [place] [address] 08/17/2024 9:40 AM EDT Office Visit Gastroenterology, [facility] [address] [place] [address] Eduar Beckham MD [address] [place] [address] 10/20/2024 2:30 PM EDT Office Visit Hematology/Oncology [facility] 200 [facility] [place] [address] Ghada Whaley CRNP [address] [place] [address] Scheduled Procedures Name Priority Associated Diagnoses Date/Ti [...] this encounter Medical Devices Implanted Type Area Preparator Device Identifier Shelf Expiration Date Model / Serial / Lot Valve Ce Aortic 21mm 3000tfx - [id number] Implanted:Qty : 1 on 04/17/2010 at [place] [facility] [place] Tissue - Non Human N/A: Chest [employer] ELISABETH 04/17/2010 3000TFX-2 [id number] / Patch Pericard 8x14cm [id number] - [id number] Implanted:Qty : 1 on 04/17/2010 at OR [facility] [place] Tissue - Non Human N/A: Chest [employer] 12/05/2014 PC-0814N / / [id number] Sut Steel 6 M654g - [id number] Implanted:Qty : 4 on 04/17/2010 at OR [facility] [place] N/A: Chest DO NOT USE 06/17/2014 M654G / / [id number] documented as of this encounter Visit Diagnoses Diagnosis Acquired hypothyroidism Unspecified hypothyroidism documented in this encounter Advance Directives Documents on File Type Date Recorded Patient Virtual Assistant For Advertisers Expl 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 Care Teams Mobile Security Specialist Relationship Specialty Start Date End Date Leyda Ahn MD [address] [place] [address] PCP - General Internal Medicine 02/02/24 documented as of this encounter
--- OUTSIDE RECORDS SUMMARY | 2024-05-12 21:48 | External Medical Summary ---
Author Name Unknown Address Unknown Organization [facility] [address] [place] [address] Laboratory Report Ordering Provider Test Date Status BREANNA CHISHOLM 04/04/2024 13:22:15 Final Observation Date Value Abnormality Reference (Units ) Status BUN 04/04/2024 13:22:15 23 Above high normal 6-20 (mg/dL) Final Creatinine 04/04/2024 13:22:15 0.7 0.5-1.0 (mg/dL) Final Glomerular filtration rate/1.73 sq M.predicted [Volume Rate/Area] in Serum, Plasma or Blood by Creatinine-based formula (CKD-EPI) 04/04/2024 13:22:15 79 >=60 (mL/min) Final eGFR is calculated based on the CKD-EPI 2020 equation. Sodium 04/04/2024 13:22:15 138 135-146 (m mol/L) Final Potassium 04/04/2024 13:22:15 5.3 Above high normal 3. 5-5.1 (mmol/L) Final Cl 04/04/2024 13:22:15 99 98-107 (mm ol/L) Final CO2 04/04/2024 13:22:15 29 22-32 (mmo l/L) Final Anion gap 04/04/2024 13:22:15 10 7-15 (mmol /L) Final Glucose 04/04/2024 13:22:15 67 Below low normal 70- 120 (mg/dL) Final Albumin 04/04/2024 13:22:15 3.9 3.8-5.0 (g /dL) Final AST (Aspartate aminotransferase) 04/04/2024 13:22:15 49 Above high normal 10-35 (U/L) Final Alk Phos 04/04/2024 13:22:15 124 35-130 (U/ L) Final Bilirubin, Total 04/04/2024 13:22:15 1.6 Above high no rmal <=1.2 (mg/dL) Final Calcium 04/04/2024 13:22:15 9.5 8.4-10.2 ( mg/dL) Final Protein 04/04/2024 13:22:15 7.2 6.0-8.3 (g /dL) Final ALT (Alanine aminotransferase) 04/04/2024 13:22:15 16 10-35 (U/L) Tommie rosales Performing Location [facility] [place] [facility] [address]
--- OUTSIDE RECORDS SUMMARY | 2024-05-12 21:48 | External Medical Summary | Summary of Care ---
Author Name Unknown Organization [facility] Address [address] [place] [address] Phone [phone] Care Team Providers Care Display Maker Name Role Phone Leyda Ahn MD Primary Care Provider [phone] Reason for Visit * Reason Onset Date Comments Test Results 04/06/2024 Encounter Details Date Type Department Care Team (Late st Contact Info) Description 04/06/2024 Telephone Cardiology, [facility] [address] [place] [address] Rajesh Jordan MD [address] [place] [address] Test Results Allergies Active Allergy Reactions Criticality Noted Date Comments Pantoprazole 01/29/2022 Itchiness, rash Penicillins Hives 01/13/2003 hives documented as of this encounter (statuses as of 04/14/2024) Medications Acetaminophen ER 650 MG Oral Tablet [...] as of this encounter (statuses as of 04/14/2024) Active Problems Problem Noted Date Diagnosed Date [...] as of this encounter (statuses as of 04/14/2024) Resolved Problems Problem Noted Date Diagnosed Date Resolved Date Permanent atrial fibrillation 03/28/2019 10/28/2021 Chronic systolic CHF (conges tive heart failure) 03/28/2019 01/03/2021 CHF with right heart failure 03/21/2019 03/12/2022 Atherosclerosis of aorta 11/16/2018 Carpal tunnel syndrome 03/28/201302/10 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 Henriquez [facility] N/S asymptomatic en [...] well after 03/29 surgical repair LOC PRIM [id number] 05/09/2003 1010/2016 Esotropia 01/13/2003 02/10/2017 Overview (01/13/2003): /03- R sixth nerve palsy- improving MRI/MRA negative Alopecia 01/13/2003 02/10/2017 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/2002 09/20/2018 Overview (06/16/2002): not bx proven DIVERTICULOSIS OF COLON 06/16/200202/22 Menopause 06/16/2002 10/23/2021 Abnormal weight gain 06/16/2002 017 documented as of this encounter (statuses as of 04/14/2024) Immunizations Name Administration Dates Next Due COVID-19 mRNA, LNP-s, No Pre serve, 2-Dose Series (Moderna) 08/30/2020,07/25/2020 COVID-19, MRNA-LNP, PF, 30 M CG/0.3 mL, 12 YRS AND ABOVE, IM ([employer] 09/29/2023 COVID-19, mRNA, LNP-s, PF, B ooster, [...] 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 * Telephone Encounter - Eliu Decker LPN - 04/06/2024 1:29 PM EST Sent patient a [employer] message to make aware. ----- Message from Rajesh Jordan MD sent at 04/06/2024 12:44 PM EST ----- Digoxin level good. No changes documented in this encounter Plan of Treatment Upcoming Encounters Date Type Department Care Team (Late st Contact Info) Description 04/15/2024 10:00 AM EST Office Visit Hematology/Oncology [facility] [address] [facility] [place] [phone] Ghada Whaley CRNP [address] [place] [address] 05/26/2024 10:20 AM EST Office Visit Rheumatology [address] [place] [address] Jose Johnston MD [address] [place] [address] [place] [address] 05/30/2024 10:30 AM EST Office Visit Cardiology, [facility] 132 [place] [address] Rajesh Jordan MD [address] [place] [address] 08/12/2024 1:00 PM EDT Office Visit General Internal Medicine [facility] [address] [facility] [place] [address] Leyda Ahn MD [address] [facility] [place] [address] 08/17/2024 9:40 AM EDT Office Visit Gastroenterology, [facility] [address] [facility] [place] [address] Eduar Beckham MD [address] [place] [address] Scheduled Procedures Name Priority Associated Diagnoses Date/Ti [...] ASSESSMENT COMPLETED IN PAST YEAR FOR COPD 04/05/2025 04/05/2024 DTap/Tdap Vaccines (3 - Td or Tdap) [...] this encounter Medical Devices Implanted Type Area Title Camera Operator Device Identifier Shelf Expiration Date Model / Serial / Lot Valve Ce Aortic 21mm 3000tfx - [id number] Implanted:Qty : 1 on 04/17/[address] [facility] Tissue - Non Human N/A: Chest [employer] ELISABETH 04/17/2010 3000TFX-2 / [id number] / Patch Pericard 8x14cm [id number] - [id number] Implanted:Qty : 1 on 04/17/[address] [facility] Tissue - Non Human N/A: Chest [employer] 12/05/2014 -[id number] / / [id number] Sut Steel 6 M654g - [id number] Implanted:Qty : 4 on 04/17/[address] 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 Care Teams Display Maker Relationship Specialty Start Date End Date Leyda Ahn MD [address] [place] [address] PCP - General Internal Medicine 02/02/24 documented as of this encounter
--- OUTSIDE RECORDS SUMMARY | 2024-05-12 21:48 | External Medical Summary ---
Author Name Unknown Address Unknown Organization [id number]:[facility] [address] [place] [address] Laboratory Report Ordering Provider Test Date Status CASE WHITLOCK 04/04/2024 13:22:15 Final Observation Date Value Abnormality Reference (Units ) Status Nucleated erythrocytes/100 leukocytes [Ratio] in Blood by Automated count 04/04/2024 13:22:15 Final Performing Location [facility] [address] - [address] [place] [address]
--- OUTSIDE RECORDS SUMMARY | 2024-05-12 21:48 | External Medical Summary ---
Author Name Unknown Address Unknown Organization [id number]:[facility] [address] - [address] [place] [address] Laboratory Report Ordering Provider Test Date Status CASE WHITLOCK 04/04/2024 13:22:15 Final Observation Date Value Abnormality Reference (Units ) Status WBC, Total 04/04/2024 13:22:15 4.44 4.00-10.8 0 (K/uL) Final RBC 04/04/2024 13:22:15 4.14 3.85-5.15 (M/uL) Final Hemoglobin 04/04/2024 13:22:15 12.5 12.0-15.3 (g/dL) Final HCT 04/04/2024 13:22:15 40.5 36.0-45.2 (%) Final MCV 04/04/2024 13:22:15 97.8 81.5-97.5 (fL) Final MCH 04/04/2024 13:22:15 30.2 27.0-34.0 (pg) Final MCHC 04/04/2024 13:22:15 30.9 32.0-36.0 (g/dL) Final RDW 04/04/2024 13:22:15 20.0 11.5-15.5 (%) Final Platelets 04/04/2024 13:22:15 107 Below low normal 140 -400 (K/uL) Final MPV 04/04/2024 13:22:15 9.8 6.6-11.1 ( fL) Final Per[facility] - [address] [place] [address]
--- OUTSIDE RECORDS SUMMARY | 2024-05-12 21:48 | External Medical Summary ---
Author Name Unknown Address Unknown Organization K01:[facility] - [address] [facility] [address] Laboratory Report Ordering Provider Test Date Status LOBITO PARRA 04/04/2024 13:22:15 Final Recommended trough therapeut ic ranges:
0.5 to 0.8 for heart failure
0.5 to 1.1 for atrial fibrillation Observation Date Value Abnormality Reference (Units ) Status Digoxin 04/04/2024 13:22:15 0.7 0.5-1.1 (n g/mL) Final Performing Location [facility] - [address] [place] [address]
--- OUTSIDE RECORDS SUMMARY | 2024-05-12 21:48 | External Medical Summary | Summary of Care ---
Author Name Unknown Organization [facility] Address [address] [place] [address] Phone [phone] Care Team Providers Care Analytics Senior Manager Name Role Phone Leyda Ahn MD Primary Care Provider [phone] Reason for Visit * Reason Onset Date Comments Referral 04/05/2024 SP 30-Day Encounter Details Date Type Department Care Team (Late st Contact Info) Description 04/05/2024 New Patient Triage (FURNITURE SERVICER USE ONLY) Hematology/Oncology [facility] [address] [place] [address] Ghada Whaley CRNP [address] [place] [address] Referral (SP 30-Day) Allergies Active Allergy Reactions Criticality Noted Date Comments Pantoprazole 01/29/2022 Itchiness, rash Penicillins Hives 01/13/2003 hives documented as of this encounter (statuses as of 04/06/2024) Medications Acetaminophen ER 650 MG Oral Tablet [...] as of this encounter (statuses as of 04/06/2024) Active Problems Problem Noted Date Diagnosed Date [...] as of this encounter (statuses as of 04/06/2024) Resolved Problems Problem Noted Date Diagnosed Date Resolved Date Permanent atrial fibrillation 03/28/2019 10/28/2021 Chronic systolic CHF (conges tive heart failure) 03/28/2019 01/03/2021 CHF with right heart failure 03/21/2019 03/12/2022 Atherosclerosis of aorta 11/16/2018 Carpal tunnel syndrome 03/28/201302/10 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 Henriquez [facility] N/S asymptomatic en plaque cavernous sinus meningioma [...] well after 03/29 surgical repair LOC PRIM [id number] 05/09/2003 10/0 10/2016 Esotropia 01/13/2003 02/10/2017 Overview (01/13/2003): 7/03- R sixth nerve palsy- improving MRI/MRA negative Alopecia 01/13/2003 02/10/2017 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/2002 09/20/2018 Overview (06/16/2002): not bx proven DIVERTICULOSIS OF COLON 06/16/200202/22 Menopause 06/16/2002 10/23/2021 Abnormal weight gain 06/16/2002 017 documented as of this encounter (statuses as of 04/06/2024) Immunizations Name Administration Dates Next Due COVID-19 mRNA, LNP-s, No Pre serve, 2-Dose Series (Moderna) 08/30/2020,07/25/2020 COVID-19, MRNA-LNP, PF, 30 M CG/0.3 mL, 12 YRS AND ABOVE, IM ([facility]) 09/29/2023 COVID-19, mRNA, LNP-s, PF, B ooster, [...] Date 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 Sent to CS: Ok to schedule with RAJAN Rosales withinthe next 10-days, New Benign Hematology, "Thrombocytopenia". Please schedule patient for lab work 3-4 days prior for; "CBCd, ferritin, iron screen, vitamin b12, folic acid and ldh". Orders placed in chart. Communicated with patient on Date (mm/dd/yyyy): 04/06/2024 at Time ([facility]): 09:57 AM Additional imaging needed: No Additional imaging orders pended: No Further labs recommended and ordered: Yes CBCd, ferritin, iron screen, vitamin b12, folic acid and ldh Bone Marrow biopsy recommended:No [facility] clinic review recommended: No * Ghada Whaley CRNP - 04/05/2024 4:42 PM EST Hematology New Referral Triage Note 84 y/o female referred for thrombocytopenia. 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 Takes aspirin 81 mg daily. Patient with chronic mildly low platelet count since November 2023. Most recent CBC from 04/04/24 showing platelet count of 107K. No current abnormalities in other cell lines. MRI abdomen completed 02/26/24 showing top normal size liver with spleen WNL. Timeframe to be seen: 10 days Can the patient be seen by an advanced practitioner? Yes - physician or RAJAN Rosales Are additional labs or studies needed prior to initial visit? Yes - CBCd, ferritin, iron screen, vitamin b12, folic acid and ldh Is an infusion appointment needed after initial visit? no Discussed care plan with patient or proxy?: No Nurse to call. Previously seen hematology? No RAJAN Matute Hematology * Itzel Johnson LPN - 04/05/2024 1:27 PM EST Images from the original note were not included. New Patient Triage What is the diagnosis/reason for referral?: Thrombocytopenia, Elevated bilirubin Enter order ID here: [id number] Specialty specific documentation: Hematology/Oncology NEW PATIENT - HEMATOLOGY/ONCOLOGY SPECIALTY TRIAGE Triage needed?: Yes Referring provider name: Dr. Ahn Confirmation of diagnosis: No TRIAGE PLAN: Baseline/staging imaging complete: No Labs available: Yes Referral to other specialty recommended (ie. Surgery, outpatient infusion): No Additional triage comments: Dr. Jimy Macedo, 04/05/2024 documented in this encounter Miscellaneous Notes * Addendum Note - Itzel Johnson LPN - 04/06/2024 10:05 AM ESTAddended by: ITZEL JOHNSON on: 04/06/2024 10:05 AM Modules accepted: Orders documented in this encounter Plan of Treatment Upcoming Encounters Date Type Department Care Team (Late st Contact Info) Description 04/11/2024 9:00 AM EST Imaging Radiology, [address] [place] [address] 05/26/2024 10:20 AM EST Office Visit Rheumatology [address] [place] [address] Jose Johnston MD [address] [place] [address] [place] [address] 05/30/2024 10:30 AM EST Office Visit Cardiology, [facility] [address] [facility] [place] [address] Rajesh Jordan MD [address] [place] [address] 08/12/2024 1:00 PM EDT Office Visit General Internal Medicine [facility] 200 [facility] [place] [address] Leyda Ahn MD [address] [facility] [place] [address] 08/17/2024 9:40 AM EDT Office Visit Gastroenterology, [facility] [address] [place] [address] Eduar Beckham MD [address] [place] [address] Scheduled Orders Name Type Priority Associated Diagnoses Orde r Schedule CBC WITH WBC DIFFERENTIAL Lab Routine Thrombocytopenia (HCC) Expected: 04/06/2024 (Approximate), Expires: 06/24/2024 FERRITIN Lab Routine Thrombocytopenia (HCC) Expected: 04/06/2024 (Approximate), Expires: 06/24/2024 IRON SCREEN, INCLUDING TIBC Lab Routine Thrombocytopenia (HCC) Expected: 04/06/2024 (Approximate), Expires: 06/24/2024 VITAMIN B12 Lab Routine Thrombocytopenia (HCC) Encounter for long-term (current) use of medications Expected: 04/06/2024 (Approximate), Expires: 06/24/2024 FOLIC ACID Lab Routine Thrombocytopenia (HCC) Encounter for long-term (current) use of medications Expected: 04/06/2024 (Approximate), Expires: 06/24/2024 LD Lab Routine Thrombocytopenia (HCC) Expected: 04/06/2024 (Approximate), Expires: 06/24/2024 Scheduled Procedures Name Priority Associated Diagnoses Date/Ti [...] this encounter Medical Devices Implanted Type Area Arch Cushion Skiving Machine Operator Device Identifier Shelf Expiration Date Model / Serial / Lot Valve Ce Aortic 21mm 3000tfx - [id number] Implanted:Qty : 1 on 04/17/2010 at OR [facility] Tissue - Non Human N/A: Chest [employer]IS[employer]ETH 04/17/2010 3000TFX-2 [id number] / Patch Pericard 8x14cm [id number] - [id number] Implanted:Qty : 1 on 04/17/2010 at OR [facility] Tissue - Non Human N/A: Chest [employer] 12/05/2014 PC-[id number] / / [id number] Sut Steel 6 M654g - [id number] Implanted:Qty : 4 on 04/17/2010 at OR [facility] N/A: Chest DO NOT USE 06/17/2014 [id number] / / [id number] documented as of this encounter Visit Diagnoses Diagnosis Thrombocytopenia (HCC)- Primary Thrombocytopenia, unspecified Thrombocytopenia, 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 thrombocytopenic purpura Erythrocytosis Polycythemia, secondary Anemia, unspecified type Encounter for long-term (current) use of medications Encounter for long-term (current) use of other medications documented in this encounter Advance Directives Documents on File Type Date Recorded 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 Care Teams Analytics Senior Manager Relationship Specialty Start Date End Date Leyda Ahn MD [address] [place] [address] PCP - General Internal Medicine 02/02/24 documented as of this encounter
--- OUTSIDE RECORDS SUMMARY | 2024-05-12 21:48 | External Medical Summary ---
Author Name Unknown Address Unknown Organization K01:[facility] - [address] [facility] [address] Laboratory Report Ordering Provider Test Date Status BREANNA CHISHOLM 04/04/2024 13:22:15 Final Observation Date Value Abnormality Reference (Units ) Status TSH 04/04/2024 13:22:15 1.59 0.27-4.20 (uIU/mL) Final Performing Location [facility] - [address] [facility] [address]
--- OUTSIDE RECORDS SUMMARY | 2024-05-12 21:48 | External Medical Summary | Summary of Care ---
Author Name Unknown Organization [facility] Address [address] [place] [address] Phone [phone] Care Team Providers Care Weld Engineer Name Role Phone Leyda Ahn MD Primary Care Provider Reason for Visit * Reason Comments Outpatient Testing Encounter Details Date Type Department Care Team (Late st Contact Info) Description 04/04/2024 2:00 PM EST Laboratory Laboratory, [facility] [address] [place] [address] [facility] [address] [place] [place] [address] Abnormal CBC; Elevated LFTs; Acquired hypothyroidism; Atrial flutter, unspecified type (HCC); Anemia in chronic illness; History of transcatheter aortic valve replacement (TAVR); Chronic diastolic heart failure due to valvular disease (HCC); Bilateral lower extremity edema; Pulmonary hypertension ([facility]); Typical atrial flutter ([facility]); Paroxysmal atrial fibrillation ([facility]); S/P aortic valve replacement; Stenosis of prosthetic aortic valve, initial encounter; Chronic heart failure with preserved ejection fraction (HCC); Chronic right-sided heart failure (HCC) Allergies Active Allergy Reactions Criticality Noted Date Comments Pantoprazole 01/29/2022 Itchiness, rash Penicillins Hives 01/13/2003 hives documented as of this encounter (statuses as of 04/04/2024) Medications Acetaminophen ER 650 MG Oral Tablet Extended Release 2 pill daily in AM & 2 pills in afternoon if needed 03/20/20 15 Active oxygen GASIndications:Noc turnal hypoxemia,COPD, mild (HCC) Use 2.5 L/min(Oxygen) as directed at bedtime. 1 Each 1 03/25/20 19 Active Albuterol Sulfate HFA 108 (90 Base) [...] daily. 45 Tablet 3 08/12/19 24 Active Additional Information Patient taking differently: 25 mgOral Daily(Non-Specified), Reported on 11/16/2023 Gabapentin 100 MG Oral Capsule (Neurontin) Take 1 tab three times daily 270 Capsule 1 09/02/19 24 Active Mesalamine 1.2 GM Oral Tablet [...] days 1 Each 1 02/02/20 24 Active Furosemide 40 MG Oral Tablet (Lasix)Indications :Bilateral lower extremity edema,History of transcatheter aortic valve replacement (TAVR),Pulmonary hypertension (HCC) Take 1 Tablet by mouth in the morning. -dose inc 01/08/24. 30 Tablet 02/24/20 Active Digoxin 125 MCG Oral Tablet (Lanoxin) Take one three days per week 36 Tablet 3 03/02/20 Active Levothyroxine Sodium 100 MCG Oral Tablet (Levoxyl)Indicatio ns:Acquired hypothyroidism TAKE 1 TABLET BY MOUTH IN THE MORNING. (AT LEAST 30 MIN PRIOR TO BREAKFAST OR OTHER MEDS)--DEC 02/03/2024, LAB 10 WKS. 30 Tablet 03/29/20 Active Hospital, Clinic, or Other Facility Administered Medication Ordered Dose Route Frequency Start Date End Date Status albuterol sulfate (PROVENTIL) (2.5 MG/3ML) 0.083% inhalation solution 2.5 mgIndications:COPD, severity to be determined (HCC),Chondrosarcoma (HCC),Pulmonary hypertension (HCC) 2.5 mg NEBULIZER PRN 01/07/2019 Active documented as of this encounter (statuses as of 04/04/2024) Active Problems Problem Noted Date Diagnosed Date Atrial flutter 11/30/2023 Venous insufficiency 09/12/2023 Chronic [...] 03/18/2010 Acquired hypothyroidism 05/21/2007 Cervical spondylosis 02/11/2005 documented as of this encounter (statuses as of 04/04/2024) Resolved Problems Problem Noted Date Diagnosed Date Resolved Date Permanent atrial fibrillation 03/28/2019 10/28/2021 Chronic systolic CHF (conges tive heart failure) 03/28/2019 01/03/2021 CHF with right heart failure 03/21/2019 03/12/2022 Atherosclerosis of aorta 11/16/2018 Carpal tunnel syndrome 03/28/201302/10 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 [...] well after 03/29 surgical repair LOC PRIM [id number] 05/09/2003 1010/2016 Esotropia 01/13/2003 02/10/2017 Overview (01/13/2003): /03- R sixth nerve palsy- improving MRI/MRA negative Alopecia 01/13/2003 02/10/2017 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/2002 09/20/2018 Overview (06/16/2002): not bx proven DIVERTICULOSIS OF COLON 06/16/200202/22 Menopause 06/16/2002 10/23/2021 Abnormal weight gain 06/16/2002 017 Other ulcerative colitis with rectal bleeding 03/12/2022 documented as of this encounter (statuses as of 04/04/2024) Immunizations Name Administration Dates Next Due COVID-19 mRNA, LNP-s, No Pre serve, 2-Dose Series (Moderna) 08/30/2020,07/25/2020 COVID-19, MRNA-LNP, PF, 30 M CG/0.3 mL, 12 YRS AND ABOVE, IM [facility] 09/29/2023 COVID-19, mRNA, LNP-s, PF, B ooster, 100mcg/0.5mg (Moderna) 05/13/2021 Covid-19, Mrna, Lnp-s, Pf, B ivalent, 30 Mcg, IM, 12 yrs and above (Pfizer) 03/18/2022 PPD 02/14/2011 Pneumococcal Conjugate Vacc, 13 Valent (Prevnar) 11/16/2014 Pneumococcal Polysaccharide PPV23 (Pneumovax) 12/06/2021,02/22/2007 Season Influenza, Quad, PF, Adjuvanted, 65+ Yrs, IM (FLUAD) 02/20/2020 Seasonal Influenza Vac., MDV , IM, 0.5 mL (Fluzone) 02/08/2013,03/15/2012,02/11/2011,04/29,04/04/2009,03/23/2008,02/25/2007 ,03/17/2006 Seasonal Influenza, High Dos e, Trivalent, PF, IM (Fluzone HD) 02/02/2024,01/24/2020 Seasonal Influenza, PF, 6 M & above, IM , (FluLaval or Fluzone) 02/16/2019,02/09/2018 Seasonal Influenza, Quadriva lent Hd (Fluzone Hd) 02/16/2023,02/19/2022,02/27/2021 Seasonal Influenza, Quadriva lent, No Preserve, IM 02/10/2017,03/23/2016,03/20/2015 TD - Tetanus/Diptheria (ADULT) 10/13/2007 TDAP (age 10 and older)(Boostrix) 03/02/2019, Varicella Zoster Vaccine (Adult) 09/14/2014 Zoster Vaccine Recombinant (Shingrix) 02/02/2024 ,09/29/2023 documented as of this encounter Social History [...] money to get more. Never true 03/25/2022 Utilities Answer Date Recorded Do you have trouble paying y our heating, water, or electric bill? (Adult - for ages 18 years and over) Not on file 11/10/2023 Is your family able to pay t he heat, water, or electric bill? (Household - for ages 0-17 years) Not on file 11/10/2023 Does your family have access to good internet? (Household - for ages 0-17 years) Not on file 11/10/2023 Social Connections Answer Date Recorded How often do you feel lonely or isolated from those around you? 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 Not on file Not on file Not on file documented as of this encounter Plan of Treatment Upcoming Encounters Date Type Department Care Team (Late st Contact Info) Description 04/05/2024 8:20 AM EST Office Visit General Internal Medicine [facility] [address] [facility] [place], [place] [address] Leyda Ahn MD [address] [facility] [place] [address] 05/30/2024 10:30 AM EST Office Visit Cardiology, [facility] [address] [place] [address] Rajesh Jordan MD [address] [facility] [address] 08/17/2024 9:40 AM EDT Office Visit Gastroenterology, [facility] [address] [facility] [place] [address] Eduar Beckham MD [address] [facility] [place] [address] Pending Results Name Type Priority Associated Diagnoses Date /Time CBC WITH WBC DIFFERENTIAL Lab Routine Abnormal CBC 04/04/2024 1:22 PM EST TSH WITH FREE T4 IF INDICATED Lab Routine Acquired hypothyroidism 04/04/2024 1:22 PM EST COMPREHENSIVE METABOLIC PANEL Lab STAT Atrial flutter, unspecified type (HCC) History of transcatheter aortic valve replacement (TAVR) Chronic diastolic heart failure due to valvular disease (HCC) 04/04/2024 1:22 PM EST DIGOXIN LEVEL Lab Routine Typical atrial flutter (HCC) Paroxysmal atrial fibrillation (HCC) S/P aortic valve replacement Stenosis of prosthetic aortic valve, initial encounter Chronic heart failure with preserved ejection fraction (HCC) Chronic right-sided heart failure (HCC) 04/04/2024 1:22 PM EST CBC Lab Routine Abnormal CBC 04/04/2024 1:22 PM EST DIFFERENTIAL, AUTOMATED Lab Routine Abnormal CBC 04/04/2024 1:22 PM EST BILIRUBIN, DIRECT Lab Routine Elevated LFTs 04/04/2024 1:22 PM EST Scheduled Procedures Name Priority Associated Diagnoses Date/Ti me COLONOSCOPY FLEXIBLE PROXIMA L DIAGNOSTIC Recall IBD (inflammatory bowel disease) Health Maintenance Due Date Last Done Comments DXA Scan 08/10/2023 08/09/2020, 07/23, 11/07/2009, Additional history exists Colonoscopy 12/26/2023 12/25/2021, 07/2021, 09/24/2018, Additional history exists COVID-19 Vaccine (2023- season) 2024 09/29/2023, 03/18/2022, 05/13/2021, Additional history exists DIG LEVEL FOR MEDICATION MONITORING YEARLY 02/17/2024 02/16/2023, 10/28/2021, 04/22/2021, Additional history exists Adult Wellness Visit 05/07/2024 05/07/2023 Depression Screening 05/15/2024 05/15/2023 TSH 01/20/2025 01/21/2024, 04/25, 02/16/2023, Additional history exists O2 ASSESSMENT COMPLETED IN PAST YEAR FOR COPD 02/01/2025 02/02/2024 DTap/Tdap Vaccines (3 - Td or Tdap) 03/02/2029 03/02/2019, 09/14/2014, 10/13/2007 Alpha-1 Antitrypsin Completed 11/01/2021 Pneumococcal Vaccine: 65+ Years Completed 12/06/2021, 11/16/2014, 02/22/2007, Additional history exists RETIRED - COLONOSCOPY-EVERY 2 YRS AGES 18-100 Discontinued 12/25/2021, 12/25/2021, 09/24/2018, Additional history exists Influenza Vaccine (FLU shot) Completed 02/02/2024, 02/16/2023, 02/19/2022, Additional history exists Zoster Vaccines Completed 02/02/2024, [...] this encounter Medical Devices Implanted Type Area Steam Service Inspector Device Identifier Shelf Expiration Date Model / Serial / Lot Valve Ce Aortic 21mm 3000tfx - [id number] Implanted:Qty : 1 on 04/17/2010 at OR [facility] Tissue - Non Human N/A: Chest [employer] ELISABETH 04/17/2010 3000TFX-2 [id number] / Patch Pericard 8x14cm [id number] - [id number] Implanted:Qty : 1 on 04/17/2010 at OR [facility] Tissue - Non Human N/A: Chest [employer] 12/05/2014 [id number]-[id number] / / [id number] Sut Steel 6 M654g - [id number] Implanted:Qty : 4 on 04/17/2010 at OR [facility] N/A: Chest DO NOT USE 06/17/2014 [id number] / / [id number] documented as of this encounter Visit Diagnoses Diagnosis Abnormal CBC Other abnormal blood chemistry Elevated LFTs Other abnormal blood chemistry Acquired hypothyroidism Unspecified hypothyroidism Atrial flutter, unspecified type (HCC) Anemia in chronic illness Anemia of other chronic disease History of transcatheter aortic valve replacement (TAVR) Chronic diastolic heart failure due to valvular disease (HCC) Bilateral lower extremity edema Edema Pulmonary hypertension (HCC) Other chronic pulmonary heart diseases Typical atrial flutter (HCC) Atrial flutter Paroxysmal atrial fibrillation (HCC) Atrial fibrillation S/P aortic valve replacement Heart valve replaced by other means Stenosis of prosthetic aortic valve, initial encounter Chronic heart failure with preserved ejection fraction (HCC) Chronic right-sided heart failure (HCC) Congestive heart failure, unspecified documented in this encounter Advance Directives Documents on File Type Date Recorded 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 Care Teams Weld Engineer Relationship Specialty Start Date End Date Leyda Ahn MD [address] [place], [place] [address] PCP - General Internal Medicine 02/02/24 documented as of this encounter
--- OUTSIDE RECORDS SUMMARY | 2024-05-12 21:48 | External Medical Summary | Summary of Care ---
Author Name Unknown Organization [facility] Address [address] [place] [address] Phone [phone] Care Team Providers Care Pack Puller Name Role Phone Leyda Ahn MD Primary Care Provider [phone] Reason for Visit * Reason Onset Date Comments Referral 04/05/2024 SP 30-Day Encounter Details Date Type Department Care Team (Late st Contact Info) Description 04/05/2024 New Patient Triage (ASSEMBLY DEPARTMENT SUPERVISOR USE ONLY) Hematology/Oncology [facility] [address] [place] [address] Ghada Whaley CRNP [address] [place] [address] Referral (SP 30-Day) Allergies Active Allergy Reactions Criticality Noted Date Comments Pantoprazole 01/29/2022 Itchiness, rash Penicillins Hives 01/13/2003 hives documented as of this encounter (statuses as of 04/05/2024) Medications Acetaminophen ER 650 MG Oral Tablet [...] as of this encounter (statuses as of 04/05/2024) Active Problems Problem Noted Date Diagnosed Date [...] as of this encounter (statuses as of 04/05/2024) Resolved Problems Problem Noted Date Diagnosed Date Resolved Date Permanent atrial fibrillation 03/28/2019 10/28/2021 Chronic systolic CHF (conges tive heart failure) 03/28/2019 01/03/2021 CHF with right heart failure 03/21/2019 03/12/2022 Atherosclerosis of aorta 11/16/2018 Carpal tunnel syndrome 03/28/201302/10 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 Henriquez [facility] N/S asymptomatic en [...] well after 03/29 surgical repair LOC PRIM [id number] 05/09/2003 10/0 10/2016 Esotropia 01/13/2003 02/10/2017 Overview (01/13/2003): 7/03- R sixth nerve palsy- improving MRI/MRA negative Alopecia 01/13/2003 02/10/2017 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/2002 09/20/2018 Overview (06/16/2002): not bx proven DIVERTICULOSIS OF COLON 06/16/200202/22 Menopause 06/16/2002 10/23/2021 Abnormal weight gain 06/16/2002 017 documented as of this encounter (statuses as of 04/05/2024) Immunizations Name Administration Dates Next Due COVID-19 mRNA, LNP-s, No Pre serve, 2-Dose Series (Moderna) 08/30/2020,07/25/2020 COVID-19, MRNA-LNP, PF, 30 M CG/0.3 mL, 12 YRS AND ABOVE, IM ([facility]) 09/29/2023 COVID-19, mRNA, LNP-s, PF, [...] Date 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 New Patient Triage What is the diagnosis/reason for referral?: Thrombocytopenia, Elevated bilirubin Enter order ID here: [id number] Specialty specific documentation: Hematology/Oncology NEW PATIENT - HEMATOLOGY/ONCOLOGY SPECIALTY TRIAGE Triage needed?: Yes Referring provider name: Dr. Ahn Confirmation of diagnosis: No TRIAGE PLAN: Baseline/staging imaging complete: No Labs available: Yes Referral to other specialty recommended (ie. Surgery, outpatient infusion): No Additional triage comments: Dr. Jimy Macedo, 04/05/2024 documented in this encounter Plan of Treatment Upcoming Encounters Date Type Department Care Team (Late st Contact Info) Description 04/11/2024 9:00 AM EST Imaging Radiology, [address] [place] [address] 05/26/2024 10:20 AM EST Office Visit Rheumatology [address] [place] [address] Jose Johnston MD [address] [place] [address] [place] [address] 05/30/2024 10:30 AM EST Office Visit Cardiology, [facility] [address] [place] [address] Rajesh Jordan MD [address] [place] [address] 08/12/2024 1:00 PM EDT Office Visit General Internal Medicine [facility] [address] [place] [address] Leyda Ahn MD [address] [facility] [place] [address] 08/17/2024 9:40 AM EDT Office Visit Gastroenterology, [facility] [address] [place] [address] Eduar Beckham MD [address] [place] [address] Scheduled Procedures Name Priority Associated Diagnoses Date/Ti [...] this encounter Medical Devices Implanted Type Area Bank Teller Machine Mechanic Device Identifier Shelf Expiration Date Model / Serial / Lot Valve Ce Aortic 21mm 3000tfx - [id number] Implanted:Qty : 1 on 04/17/[address] [facility] Tissue - Non Human N/A: Chest [employer] ELISABETH 04/17/2010 3000TFX-2 [id number] / Patch Pericard 8x14cm [id number] - [id number] Implanted:Qty : 1 on 04/17/[address] [facility] Tissue - Non Human N/A: Chest [employer] 12/05/2014 PC-0814N / / [id number] Sut Steel 6 M654g - [id number] Implanted:Qty : 4 on 04/17/[address] 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 Care Teams Pack Puller Relationship Specialty Start Date End Date Leyda Ahn MD [address] [place] [address] PCP - General Internal Medicine 02/02/24 documented as of this encounter
--- OUTSIDE RECORDS SUMMARY | 2024-05-12 21:48 | External Medical Summary ---
Author Name Unknown Address Unknown Organization [facility] [address] [place] [address] Laboratory Report Ordering Provider Test Date Status CASE WHITLOCK 04/04/2024 13:22:15 Final Observation Date Value Abnormality Reference (Units ) Status Bilirubin, Direct 04/04/2024 13:22:15 0.6 Above high normal 0.0-0.3 (mg/dL) Final Performing Location [facility] [place] [address]
--- OUTSIDE RECORDS SUMMARY | 2024-05-12 21:48 | External Medical Summary | Summary of Care ---
Author Name Unknown Organization [facility] Address [address] [place] [address] Phone [phone] Care Team Providers Care In Tube Conversion Technician Name Role Phone Leyda Ahn MD Primary Care Provider [phone] Reason for Referral * Evaluate & Treat - Unlimited Visits (Within 10 days (routine)) - Authorized Specialty Diagnoses / Procedures Referred By [place] t Referred To Contact Rheumatology Diagnoses Osteopenia of necks of both femurs Menopause Leyda Ahn MD [address] [place] [address] Phone: tel: fax: Referral ID Status Reason Start Date Expiration Date Visits Requested Visits Authorized [id number] Authorized Specialty Services Required [phone] Question Answer Referral Priority Within 10 days (routine) Where should this appointment be scheduled? [facility] * Evaluate & Treat - Unlimited Visits (Within 30 days (routine)) - Authorized Specialty Diagnoses / Procedures Referred By Contac t Referred To Contact [facility] Nurse / Home Care Diagnoses Paroxysmal atrial fibrillation (HCC) Paroxysmal atrial flutter (HCC) Bilateral leg edema Chronic diastolic heart failure due to valvular disease (HCC) Pulmonary hypertension (HCC) 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) Leyda Ahn MD [address] [place] [address] Phone: tel: fax: Referral ID Status Reason Start Date Expiration Date Visits Requested Visits Authorized [id number] Authorized Specialty Services Required [phone] Question Answer Referral Priority Within 30 days (routine) Where should this appointment be scheduled? [facility] Comments Referred for Medical Home Care Management---[facility] * Evaluate & Treat - Unlimited Visits (Within 30 days (routine)) - Authorized Specialty Diagnoses / Procedures Referred By Contac t Referred To Contact Hematology/Oncology / Hematology Oncology Diagnoses Thrombocytopenia (HCC) Elevated bilirubin Leyda Ahn MD [address] [place] [address] Phone: tel: fax: Referral ID Status Reason Start Date Expiration Date Visits Requested Visits Authorized [id number] Authorized Specialty Services Required [phone] Question Answer Referral Priority Within 30 days (routine) Where should this appointment be scheduled? [facility] Reason for Referral Abnormal CBC * Ancillary Services (Within 30 days (routine)) - Authorized Specialty Diagnoses / Procedures [facility] To Contact Gastroenterology Diagnoses Thrombocytopenia (HCC) Elevated bilirubin 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) Leyda Ahn MD [address] [place] [address] Phone: tel: fax: Referral ID Status Reason Start Date Expiration Date Visits Requested Visits Authorized [id number] Authorized Ancillary Services Required [phone] Question Answer Referral Priority Within 30 days (routine) Where should this appointment be scheduled? [facility] Comments ALERT: Do not order for pediatric patients (18 years or younger). Cancel off screen and order PEDS GASTROENTEROLOGY CONSULT (Type: 1 visit only-Evaluate and Treat) The following Pt. Instructions are available: - Gastro Colonoscopy Prep Instructions [34656] - Gastro Colonoscopy Prep Instructions (Lithuanian Version) [[id number]] Go to the Pt. Instructions section within the Visit Navigator to access. Colonoscopy ASGE Guidelines: Ulcerative colitis, Crohn's colitis surveillance after 8 yr of pancolitis or 15 yr of left-sided colitis ADDITIONAL INFORMATION 1. Is the patient on Coumadin? No 2. Is the patient on Pradaxa? No Reason for Visit * Reason Comments Re-Check Encounter Details Date Type Department Care Team (Latest Contact Info) Description 04/05/2024 8:20 AM EST Office Visit General Internal Medicine [place] Deena Tomas [address] [place] [id number] Leyda Ahn MD [address] [place] [address] [id number] Paroxysmal atrial fibrillation (HCC)*; Paroxysmal atrial flutter (HCC); Stenosis of prosthetic aortic valve, sequela; History of transcatheter aortic valve replacement (TAVR); Bilateral leg edema; Acquired hypothyroidism; Chronic rhinitis; COPD, group B, by GOLD 2017 classification (HCC); B12 deficiency; Idiopathic peripheral neuropathy; Spinal stenosis of lumbar region without neurogenic claudication; Chronic diastolic heart failure due to valvular disease (HCC); Pulmonary hypertension (HCC); Thrombocytopenia (HCC); Elevated bilirubin; 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); Hemangioma of liver; Osteopenia of necks of both femurs; Menopause; Pruritic dermatosis of scalp Allergies Active Allergy Reactions Criticality Noted Date Comments Pantoprazole 01/29/2022 Itchiness, rash Penicillins Hives 01/13/2003 hives documented as of this encounter (statuses as of 04/05/2024) Medications Acetaminophen ER 650 MG Oral Tablet Extended Release 2 pill daily in AM & 2 pills in afternoon if needed 015 Active Albuterol Sulfate HFA 108 (90 Base) MCG/ACT Inhalation Aerosol SolutionIndicatio ns:COPD, mild (HCC) Inhale by mouth 2 Puffs every 4 hours as needed for Cough, Shortness of Breath or Wheezing. 20.1 g 3 022 Active Aspirin 81 MG Oral Tablet Delayed Release Take 1 Tablet by mouth in the morning. Active oxygen IN GAS 2L/min(Oxygen ) continuous via nasal cannula. 1 Each 023 Active Metoprolol Succinate ER 25 MG Oral Tablet Extended Release 24 Hour (toPROL XL)Indications:Pa roxysmal atrial fibrillation (HCC) Take 0.5 Tablets by mouth daily. 45 Tablet 3 024 Active Mesalamine 1.2 GM Oral Tablet Delayed Release (Lialda) TAKE 2 TABLETS BY MOUTH EVERY MORNING 180 Tablet 3 Active Clobetasol Propionate 0.05 % External SolutionIndicatio ns:Pruritic dermatosis of scalp,Scalp itch Apply topically to affected area 2 times a day. On scalp , use till better then as needed 25 mL 1 Active Hydrocortisone 2.5 % External CreamIndications: Eczematous skin lesions,Dry skin Apply topically to affected area 2 times a day. To affected area. On Rt upper back till better then as needed 30 g Active Zoster Vac Recomb Adjuvanted 50 MCG/0.5ML Intramuscular Suspension Reconstituted (Shingrix)Indicat ions:Need for shingles vaccine Inject 0.5 mL into a large muscle now and repeat dose in 60 to 180 days 1 Each 1 Active Digoxin 125 MCG Oral Tablet (Lanoxin) Take one three days per week 36 Tablet 3 Active Levothyroxine Sodium 100 MCG Oral Tablet (Levoxyl)Indicati ons:Acquired hypothyroidism TAKE 1 TABLET BY MOUTH IN THE MORNING. (AT LEAST 30 MIN PRIOR TO BREAKFAST OR OTHER MEDS)--DEC 02/03/2024, LAB 10 WKS. 30 Tablet Active Gabapentin 100 MG Oral Capsule (Neurontin)Indica tions:Idiopathic peripheral neuropathy,Spinal stenosis of lumbar region without neurogenic claudication Take 1 tab daily, 2nd as needed per pt 04/17 Active Cetirizine HCl 10 MG Oral Tablet (ZyrTEC Allergy)Indicatio ns:Chronic rhinitis Take 1 Tablet by mouth in the morning. Active Furosemide 40 MG Oral Tablet (Lasix)Indication s:Paroxysmal atrial fibrillation (HCC),Paroxysmal atrial flutter (HCC),Stenosis of prosthetic aortic valve, sequela,History of transcatheter aortic valve replacement (TAVR),Bilateral leg edema,Chronic diastolic heart failure due to valvular disease (HCC),Pulmonary hypertension (HCC) 20 mg thu,thu, from 04/05/2024 1 Tablet Active B-12 1000 MCG Oral TabletIndications :B12 deficiency 1 tab daily, start 04/05/2024 024 Active oxygen GASIndications:No cturnal hypoxemia,COPD, mild (HCC) Use 2.5 L/min(Oxygen) as directed at bedtime. 1 Each 1 019 2023 Discontinued(E nd of Procedure) Gabapentin 100 MG Oral Capsule (Neurontin) Take 1 tab three times daily 270 Capsule 1 024 2023 Discontinued Doxycycline Hyclate 100 MG Oral CapsuleIndication s:Scratch Take 1 Capsule by mouth in the morning and 1 Capsule before bedtime. Do all this for 7 days. Take for 7 days. 14 Capsule 2023 Discontinued(E nd of Procedure) Furosemide 40 MG Oral Tablet (Lasix)Indication s:Bilateral lower extremity edema,History of transcatheter aortic valve replacement (TAVR),Pulmonary hypertension (HCC) Take 1 Tablet by mouth in the morning. -dose inc 01/08/24. 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 Not on file Not on file Not on file documented as of this encounter Last Filed Vital Signs Vital Sign Reading Time Taken Comments Blood Pressure 112/74 04/05/2024 8:13 AM EST Pulse 79 04/05/2024 8:13 AM EST Temperature 36.1 C (97 F) 04/05/2024 8:13 AM EST Respiratory Rate - - Oxygen Saturation 100% 04/05/2024 8:13 AM EST Inhaled Oxygen Concentration - - Weight 61.2 kg (134 lb 14.4 oz) 04/05/2024 8:13 AM EST Height 172.7 cm (5' 7.99") 04/05/2024 8:13 AM ES T Body Mass Index 20.52 04/05/2024 8:13 AM EST documented in this encounter Progress Notes * Leyda Ahn MD - 04/05/2024 8:31 AM EST SUBJECTIVE: Nereida Stephen is a 83 year old female. Chief Complaint Patient presents with Re-Check Nursing Notes: Heaven Mckoy CMA 04/05/24 0816 Signed Nereida Stephen presents for 4 month recheck. She denies any new concerns at this time. Medications & HM reviewed. 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 No CAD on preop catheterization 2009, repeat catheterization 03/03/2022-mild luminal irregularities 10/02/22-no DVT left leg on Venous doppler. -history of hypotension in October after she had been started on Entresto and continued Lasix by tannery worker in [place] 08/03/23 for diagnosis of atrial flutter, pulmonary hypertension, CHF- - admitted to [facility], saw Dr. Sellers in follow-up as well as Cardiology Echo of the heart showed-LVEF 55 to 60%, the moderate concentric LVH, RV is mildly dilated, RV systolic function is normal, right atrium is severely dilated, left atrium is moderately dilated, the patient is status post TAVR, normal gradient across prosthetic aortic valve, there is severe tricuspid regurgitation, the estimated systolic pulmonary pressure is 40 mmHg and there is moderate mitral regurgitation -discharged on Lasix as needed PAF, slow atrial flutter on EKG, not on anticoagulation due to past bleeding 11/15-saw Dr. Jordan, 3 day Zio showed atrial flutter no tachycardia or bradycardia recommend use of oxygen at night -02/15-was on Lasix 20 mg 3 days a week, increased to Lasix 40mg daily at [facility] for bilateral leg edema 01/08/202404/17--saw [facility] 03/02/24> Atrial flutter with elevated ventricular response rate, with activity event monitor without significant bradycardia. Will add low- dose digoxin 125 mcg 3 days per week ,taking lasix 1/wk--wt gain noted, refer CM Does get exertional chest discomfort/sob, K high, add lasix 20mg 3d/wk and ch bmp 2 wks Seen in clinic by Dr. Graves 01/21/2024 SP fall at a pharmacy,falling backwards hitting her head, unsure if she had lost consciousness. EKG had shown atrial flutter with variable block, had labs and CT of the head, orthostatics negative 01/21/2024-CT head-no interval changes from last CT head 03/22/20194767-iqcj-xo-moderate age-related cerebral atrophy with compensatory dilation of the ventricles, mild chronic small-vessel ischemic changes, atherosclerotic calcifications intracranial carotid and vertebral arteries sinuses clear 01/21/2024-labs reviewed-stable hemoglobin 11.5-12 range, chronic decrease in platelets 102-126, normal WBC, TSH 0.36, ferritin 30, iron saturation 6% with low iron and low iron binding capacity consistent with anemia of chronic disease, B12 772, LFT with increase AST 53 normal ALT, bilirubin 2.2 with a direct bilirubin slightly high at 0.7-upper limit of normal 0.3, BMP with high BUN 43, creatinine 0.9, sodium improved from 129-138 and bicarb from 21-25 Echo-12/15-Echo of the heart showed-LVEF 55 to 60%, the moderate concentric LVH, RV is mildly dilated, RV systolic function is normal, right atrium is severely dilated, left atrium is moderately dilated, the patient is status post TAVR, normal gradient across prosthetic aortic valve, there is severetricuspid regurgitation, the estimated systolic pulmonary pressure is 40 mmHg and there is moderatemitral regurgitation 01/26/24--US RUQ_result note Abigail-1. Mild gallbladder thickening, any ruq pain, nausea, vomiting? 2. Mild ascites 3. Has a fatty liver infiltration vs hemangioma (benign collection blood vessel) radiology reccomending mri, but if she has a lot of metal in body, claustrophobia can try ct instead--agreed to MRI 02/26/24-MRI of the abdomen in evaluation of abnormal ultrasound-normal gallbladder, 3 cm hemangioma(benign vascular growth) in left lobe of the liver, Cardiomegaly with right atrial enlargement, dilated hepatic veins as well as small volume ascites and mild body wall edema--all suggestive of right heart dysfunction-addressed by . carotid Doppler 10/13/2022-per Cardiology-PHUC occlusion , less that 50% stenosis of the LICA- unchanged from 2020. Please let them know and fax prior report. 04/04/24--CD--same COPD with nocturnal hypoxia, does not use oxygen regularly. ---04/17-reg now History of meningioma status post gamma knife surgery 05/2014. 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- resection mid lower sternum and right costal cartilage and anterior chest wall reconstruction with mesh and pectoral flap Hypothyroidism-had low TSH at hosp 11/15 Daily alcohol intake, past tobacco abuse History of vitamin-D deficiency completed 86478 units weekly for 12 weeks in 2022, currently not onsupplements Diagnosed with severe B12 deficiency on labs 02/16/2023, started B12 weekly for 4 weeks and then monthly getting her 2nd dose today, she will be going to [place] in 3 weeks till August, advised to havelabs repeated in [place] in about a month and if stable can changed to 1000 mcg daily. History of hyponatremia due to dehydration in the past and alcohol use Ulc colitis diag in December 2021 -per GI note-- EGD Impression: - Normal esophagus. - Small hiatal hernia. - Normal examined duodenum. - No specimens collected. Colonoscopy Impression: - The examined portion of the ileum was normal. - Inflammation was found from the hepatic flexure to the cecum. This was moderate in severity. Biopsied. - Normal mucosa from transverse colon to sigmoid colon. Biopsied. - Rule out malignancy, tumor at 15 cm proximal to the anus. Biopsied. - The distal rectum and anal verge are normal on retroflexion view. Path consistent with UC -on mesalamine 4t/d 10/14-Labs-nml cbc ex mild anemia -Hb improved to 11.6, nml CMP ex bilirubin( high before , may haveGilberts syndrome) Drinks alcohol at least 4 to 5 times a week, denies any skin bruising. Denies fever or chills/ abdominal pain/ nausea or vomiting. -scalp itching has improved with clobetasol solution as well with resolution of hyperkeratosis and hydrocortisone OTC to the affected area on the right upper back Taking Zyrtec for itchy watery eyes denies any runny nose Also had pain in her neck and received injections by pain Clinic currently taking Tylenol 3 a day off aspirin, taking gabapentin only 1 a day Discussed about covid booster, RSV vaccine. TSH Results: Lab Results Component Value Date/Time TSH - [facility] 1.59 04/04/2024 01:22 PM TSH - [facility] 0.36 01/21/2024 12:27 PM TSH - [facility] 0.63 05/15/2023 12:02 PM TSH - [facility] 0.87 06/15/2020 01:48 PM TSH - [facility] 2.71 06/08/2020 11:45 AM TSH - [facility] 3.10 02/22/2020 10:36 AM TSH - OUTSIDE LAB 0.174 (A) 11/12/2021 12:00 AM TSH - [facility] 1.500 09/23/2018 12:00 AM Potassium Results: Lab Results Component Value Date/Time POTASSIUM - [facility] 5.3 (H) 04/04/2024 01:22 PM POTASSIUM - [facility] 5.1 03/02/2024 11:12 AM POTASSIUM - [facility] 4.1 01/21/2024 12:27 PM POTASSIUM - [facility] 3.9 09/19/2022 03:07 AM POTASSIUM - [facility] 3.9 09/18/2022 07:39 AM POTASSIUM - [facility] 4.0 09/17/2022 01:15 AM POTASSIUM - [facility] 4.2 06/15/2020 01:48 PM POTASSIUM - [facility] 4.4 06/08/2020 11:45 AM POTASSIUM - [facility] 4.8 02/22/2020 10:36 AM POTASSIUM POCT - [facility] 4.2 04/17/2010 11:27 AM POTASSIUM POCT - [facility] 5.2 (H) 04/17/2010 10:00 AM POTASSIUM POCT - [facility] 5.4 (H) 04/17/2010 10:00 AM AST Results: Lab Results Component Value Date/Time AST - [facility] 49 (H) 04/04/2024 01:22 PM AST - [facility] 53 (H) 01/21/2024 12:27 PM AST - [facility] 43 (H) 01/11/2024 10:09 AM AST - [facility] 42 (H) 06/15/2020 01:48 PM AST - [facility] 43 (H) 06/08/2020 11:45 AM AST - [facility] 39 (H) 02/22/2020 10:36 AM ALT Results: Lab Results Component Value Date/Time ALT - [facility] 16 04/04/2024 01:22 PM ALT - [facility] 24 01/21/2024 12:27 PM ALT - [facility] 17 01/11/2024 10:09 AM ALT - [facility] 25 06/15/2020 01:48 PM ALT - [facility] 30 06/08/2020 11:45 AM ALT - [facility] 25 02/22/2020 10:36 AM ALT-OUTSIDE LAB 31 (A) 05/31/2019 12:00 AM Component Latest Ref Rng 12/18/2022 05/15/2023 11/30/2023 12/07/2023 01/11/2024 01/21/2024 04/04/2024 PLT 140 - 400 K/uL 139 (L) 152 102 (L) 99 (L) 114 (L) 126 (L) 107 (L) MPV 6.6 - 11.1 fL 8.4 8.7 9.7 9.7 9.8 10.2 9.8 Legend: (L) Low Component Latest Ref Rng 02/16/2023 11/30/2023 12/07/2023 01/21/2024 Albumin 3.8 - 5.0 g/dL 4.6 4.5 4.5 4.4 AST 10 - 35 U/L 25 53 (H) 50 (H) 53 (H) Alkaline Phosphatase 35 - 130 U/L 71 147 (H) 116 121 Bilirubin, Total <=1.2 mg/dL 1.3 (H) 1.7 (H) 2.4 (H) 2.2 (H) CALCIUM 8.4 - 10.2 mg/dL 9.6 9.5 9.4 9.3 Protein 6.0 - 8.3 g/dL 6.9 7.3 7.0 7.6 ALT 10 - 35 U/L 17 27 25 24 Iron 33 - 151 ug/dL 25 (L) Iron Binding Capacity 250 - 425 ug/dL 447 (H) Transferrin Saturation Percent 15 - 55 % 6 (L) Ferritin 13 - 150 ng/mL 30 Vitamin B12 232 - 1,245 pg/mL 772 Bilirubin, Direct 0.0 - 0.3 mg/dL 0.7 (H) Digoxin Level 0.5 - 1.1 ng/mL Component Latest Ref Rng 03/02/2024 04/04/2024 Albumin 3.8 - 5.0 g/dL 3.9 AST 10 - 35 U/L 49 (H) Alkaline Phosphatase 35 - 130 U/L 124 Bilirubin, Total <=1.2 mg/dL 1.6 (H) CALCIUM 8.4 - 10.2 mg/dL 10.0 9.5 Protein 6.0 - 8.3 g/dL 7.2 ALT 10 - 35 U/L 16 Iron 33 - 151 ug/dL Iron Binding Capacity 250 - 425 ug/dL Transferrin Saturation Percent 15 - 55 % Ferritin 13 - 150 ng/mL Vitamin B12 232 - 1,245 pg/mL Bilirubin, Direct 0.0 - 0.3 mg/dL 0.6 (H) Digoxin Level 0.5 - 1.1 ng/mL 0.7 Legend: (H) High (L) Low Results for orders placed or [...] Results Review. 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 (Patient taking differently: Take 1 Tablet by mouth daily.) 45 Tablet 3 Gabapentin 100 MG Oral Capsule (Neurontin) Take 1 tab three times daily 270 Capsule 1 Mesalamine 1.2 GM Oral [...] 60 to 180 days 1 Each 1 Furosemide 40 MG Oral Tablet (Lasix) Take 1 Tablet by mouth in the morning. - dose inc 01/08/24. 30 Tablet 0 Digoxin 125 MCG Oral Tablet (Lanoxin) Take one three days per week 36 Tablet 3 Levothyroxine Sodium 100 MCG Oral Tablet (Levoxyl) TAKE 1 TABLET BY MOUTH IN THE MORNING. (AT LEAST30 MIN PRIOR TO BREAKFAST OR OTHER MEDS)--02/03/2024, LAB 10 WKS. 30 Tablet 0 Current Facility-Administered Medications Medication Dose Route Frequency Provider Last Rate Last Admin albuterol sulfate (PROVENTIL) (2.5 MG/3ML) 0.083% inhalation solution 2.5 mg 2.5 mg Nebulizer PRN Kelsey Bowles DO 2.5 mg at 11/12/21 1153 Review of patient's allergies indicates: Allergen Reactions Pantoprazole Itchiness, rash Penicillins Hives hives Discussed about covid booster, RSV vaccine.at Immunization History Administered Date(s) Administered COVID-19 mRNA, LNP-s, No Preserve, 2-Dose Series (Moderna) 07/25/2020, 08/30/2020 COVID-19, MRNA-LNP, PF, 30 MCG/0.3 mL, 12 YRS AND ABOVE, IM (PFIZER-Comirnaty) 09/29/2023 COVID-19, mRNA, LNP-s, PF, Booster, 100mcg/0.5mg (Moderna) 05/13/2021 Covid-19, Mrna, Lnp-s, Pf, Bivalent, 30 Mcg, IM, 12 yrs and above (Pfizer) 03/18/2022 PPD 02/14/2011, 09/19/2022, 09/27/2022 Pneumococcal Conjugate Vacc, 13 Valent (Prevnar) 11/16/2014 Pneumococcal Polysaccharide PPV23 (Pneumovax) 10/21/2000, 02/22/2007, 12/06/2021 Season Influenza, Quad, PF, Adjuvanted, 65+ Yrs, IM (FLUAD) 02/20/2020 Seasonal Influenza Vac., MDV, IM, 0.5 mL (Fluzone) 03/19/2005, 03/17/2006, 02/25/2007, 03/23/2008, 04/04/2009, 04/29/2010, 02/11/2011, 03/15/2012, 02/08/2013 Seasonal Influenza Virus Vaccine, Unspecified Formulation 02/16/2019, 02/20/2020, 02/27/2021, 02/19/2022, 02/16/2023 Seasonal Influenza, High Dose, Trivalent, PF, IM (Fluzone HD) 01/24/2020, 02/02/2024 Seasonal Influenza, PF, 6 M & above, IM , (FluLaval or Fluzone) 02/09/2018, 02/16/2019 Seasonal Influenza, Quadrivalent Hd (Fluzone Hd) 02/27/2021, 02/19/2022, 02/16/2023 Seasonal Influenza, Quadrivalent, No Preserve, IM 03/20/2015, 03/23/2016, 02/10/2017 TD - Tetanus/Diptheria (ADULT) 10/13/2007 TDAP (age 10 and older)(Boostrix) 09/14/2014, 03/02/2019 Varicella Zoster Vaccine (Adult) 09/14/2014 Vitamin B12 Injection 11/25/2011, 12/03/2011, 03/15/2012 Zoster Vaccine Recombinant (Shingrix) 09/14/2014, 09/29/2023, 02/02/2024 OBJECTIVE: BP 112/74 (BP Site: Left Arm, BP Position: Sitting, BP Cuff Size: Regular) | Pulse 79 | Temp 36.1 C (97 F) (Tympanic) | Ht 1.727 m (5' 7.99") | Wt 61.2 kg (134 lb 14.4 oz) | SpO2 100% | BMI 20.52kg/m | BSA 1.71 m Blood pressure 112/74, pulse 79, temperature 36.1 C (97 F), temperature source Tympanic, height1.727 m (5' 7.99"), weight 61.2 kg (134 lb 14.4 oz), SpO2 100%, not currently . PHYSICAL EXAM: General: alert, healthy, no distress, well developed Neck: supple, no adenopathy, thyroid Not enlarged without nodularity Heart: regular rhythm and rate,4/6 ESM base and apex Lungs: lungs clear to auscultation, ex sl dec BS left base Extremities: skin tight edema Abdomen: Soft, non-tender, normal bowel sounds, no masses or organomegaly Skin--sl dry Scalp-areas thick hyperkeratotic lesions resolved ASSESSMENT/PLAN: Paroxysmal atrial fibrillation (HCC) (Primary) - MEDICAL HOME CASE MANAGEMENT REFERRAL OP - BASIC METABOLIC PANEL; Future; Expected date: 04/19/2024 - Furosemide 40 MG Oral Tablet (Lasix); 20 mg thu,thu,Thursday from 04/05/2024 Paroxysmal atrial flutter (HCC) - MEDICAL HOME CASE MANAGEMENT REFERRAL OP - BASIC METABOLIC PANEL; Future; Expected date: 04/19/2024 - Furosemide 40 MG Oral Tablet (Lasix); 20 mg thu,thu,Thursday from 04/05/2024 Stenosis of prosthetic aortic valve, sequela - Furosemide 40 MG Oral Tablet (Lasix); 20 mg thu,thu,Thursday from 04/05/2024 History of transcatheter aortic valve replacement (TAVR) - Furosemide 40 MG Oral Tablet (Lasix); 20 mg thu,thu,Thursday from 04/05/2024 Bilateral leg edema - MEDICAL HOME CASE MANAGEMENT REFERRAL OP - BASIC METABOLIC PANEL; Future; Expected date: 04/19/2024 - Furosemide 40 MG Oral Tablet (Lasix); 20 mg thu,thu,Thursday from 04/05/2024 Acquired hypothyroidism - TSH WITH FREE T4 IF INDICATED; Future; Expected date: 07/06/[address] current meds COPD, group B, by GOLD 2017 classification ([facility]) B12 deficiency - B-12 1000 MCG Oral Tablet; 1 tab daily, start 04/05/2024 - VITAMIN B12; Future; Expected date: 07/06/2024 Idiopathic peripheral neuropathy Spinal stenosis of lumbar region without neurogenic claudication Chronic diastolic heart failure due to valvular disease ([facility]) - MEDICAL HOME CASE MANAGEMENT REFERRAL OP - BASIC METABOLIC PANEL; Future; Expected date: 04/19/2024 - Furosemide 40 MG Oral Tablet (Lasix); 20 mg thu,thu,Thursday from 04/05/2024 Pulmonary hypertension ([facility]) - MEDICAL HOME CASE MANAGEMENT REFERRAL OP - BASIC METABOLIC PANEL; Future; Expected date: 04/19/2024 - Furosemide 40 MG Oral Tablet (Lasix); 20 mg thu,thu,Thursday from 04/05/2024 Thrombocytopenia ([facility]) - PT INR; Future; Expected date: 07/06/2024 - COLONOSCOPY, GI REFERRAL OP - HEMATOLOGY/ONCOLOGY REFERRAL OP Elevated bilirubin - PT INR; Future; Expected date: 07/06/2024 - COLONOSCOPY, GI REFERRAL OP - HEMATOLOGY/ONCOLOGY REFERRAL OP 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 ([facility]) - PT INR; Future; Expected date: 07/06/2024 - COLONOSCOPY, GI REFERRAL OP - CBC WITH WBC DIFFERENTIAL; Future; Expected date: 07/06/2024 - COMPREHENSIVE METABOLIC PANEL; Future; Expected date: 07/06/2024 - MEDICAL HOME CASE MANAGEMENT REFERRAL OP - VITAMIN B12; Future; Expected date: 07/06/2024 Hemangioma of liver Osteopenia of necks of both femurs - DEXA SCAN/BONE MINERAL AXIAL; Future; Expected date: 04/05/2024 - HIGH RISK OSTEOPOROSIS CLINIC REFERRAL OP Menopause - DEXA SCAN/BONE MINERAL AXIAL; Future; Expected date: 04/05/2024 - HIGH RISK OSTEOPOROSIS CLINIC REFERRAL OP Pruritic dermatosis of scalp Improved. Follow Up: Return in about 3 months (around 07/06/2024), or if symptoms worsen or fail to improve, for Return with Physician, Labs 2-5 Days Before Next Visit. | For: Return with Physician, Labs 2-5 Days Before Next Visit | Check-out note: BMP 2 wks (This note was completed using the dictation [...] with plan of care. Leyda Ahn MD 04/05/2024 documented in this encounter Nursing Notes * Heaven Mckoy CMA - 04/05/2024 8:13 AM EST Nereida Stephen presents for 4 month recheck. She denies any new concerns at this time. Medications & HM reviewed. documented in this encounter Plan of Treatment Upcoming Encounters Date Type Department Care Team (Late st Contact Info) Description 04/11/2024 9:00 AM EST Imaging Radiology, [address] [place] [address] 05/26/2024 10:20 AM EST Office Visit Rheumatology [address] [place] [address] Jose Johnston MD [address] [place] [address] [place] [address] 05/30/2024 10:30 AM EST Office Visit Cardiology, [facility] [address] [place] [address] Rajesh Jordan MD [address] [place] [address] 08/12/2024 1:00 PM EDT Office Visit General Internal Medicine [facility] [address] [facility] [place] [address] Leyda Ahn MD [address] [facility] [place] [address] 08/17/2024 9:40 AM EDT Office Visit Gastroenterology, [facility] [address] [place] [address] Eduar Beckham MD [address] [place] [address] Scheduled Orders Name Type Priority Associated Diagnoses Orde r Schedule PT INR Lab Routine Thrombocytopenia (HCC) Elevated bilirubin 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) Expected: 07/06/2024 (Approximate), Expires: 04/05/2025 TSH WITH FREE T4 IF INDICATED Lab Routine Acquired hypothyroidism Expected: 07/06/2024 (Approximate), Expires: 04/05/2025 CBC WITH WBC DIFFERENTIAL Lab Routine 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) Expected: 07/06/2024 (Approximate), Expires: 04/05/2025 COMPREHENSIVE METABOLIC PANEL Lab Routine 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) Expected: 07/06/2024 (Approximate), Expires: 04/05/2025 BASIC METABOLIC PANEL Lab Routine Paroxysmal atrial fibrillation (HCC) Paroxysmal atrial flutter (HCC) Bilateral leg edema Chronic diastolic heart failure due to valvular disease (HCC) Pulmonary hypertension (HCC) Expected: 04/19/2024 (Approximate), Expires: 04/05/2025 DEXA SCAN/BONE MINERAL AXIAL Medical Imaging Routine Osteopenia of necks of both femurs Menopause Expected: 04/05/2024, Expires: 05/05/2025 VITAMIN B12 Lab Routine B12 deficiency 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) Expected: 07/06/2024 (Approximate), Expires: 04/05/2025 Scheduled Procedures Name Priority Associated Diagnoses Date/Ti me COLONOSCOPY FLEXIBLE PROXIMA L DIAGNOSTIC Recall IBD (inflammatory bowel disease) Scheduled Referrals Name Type Priority Associated Diagnoses Orde r Schedule COLONOSCOPY, GI REFERRAL OP Referral Within 30 days (routine) Thrombocytopenia (HCC) Elevated bilirubin 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) Ordered: 04/05/2024 HEMATOLOGY/ONCOLOGY REFERRAL OP Referral Within 30 days (routine) Thrombocytopenia (HCC) Elevated bilirubin Ordered: 04/05/2024 MEDICAL HOME CASE MANAGEMENT REFERRAL OP Referral Within 30 days (routine) Paroxysmal atrial fibrillation (HCC) Paroxysmal atrial flutter (HCC) Bilateral leg edema Chronic diastolic heart failure due to valvular disease (HCC) Pulmonary hypertension (HCC) 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) Ordered: 04/05/2024 HIGH RISK OSTEOPOROSIS CLINIC REFERRAL OP Referral Within 10 days (routine) Osteopenia of necks of both femurs Menopause Ordered: 04/05/2024 Health Maintenance Due Date Last Done Comments [...] this encounter Medical Devices Implanted Type Area Client Relationship Manager Device Identifier Shelf Expiration Date Model / Serial / Lot Valve Ce Aortic 21mm 3000tfx - [id number] Implanted:Qty : 1 on 04[place]17[place]2010 [place] [facility] [place] - Non Human N/A: Chest [employer] ELISABETH 04/17/2010 3000TFX-2 / [id number] / Patch Pericard 8x14cm [id number] - [id number] Implanted:Qty : 1 on 04/17/2010 [place] [facility] [place] Tissue - Non Human N/A: Chest [employer] 12/05/2014 -[id number] / / [id number] Sut Steel 6 M654g - [id number] Implanted:Qty : 4 on 04/17/2010 [place] [facility] [place] N/A: Chest DO NOT USE 06/17/2014 [id number] / / [id number] documented as of this encounter Visit Diagnoses Diagnosis Paroxysmal atrial fibrillation (HCC)- Primary Atrial fibrillation Paroxysmal atrial flutter (HCC) Atrial flutter Stenosis of prosthetic aortic valve, 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 (TAVR) Bilateral leg edema Edema Acquired hypothyroidism Unspecified hypothyroidism Chronic rhinitis COPD, group B, by GOLD 2017 classification (HCC) B12 deficiency Other B-complex deficiencies Idiopathic peripheral neuropathy Unspecified hereditary and idiopathic peripheral neuropathy Spinal stenosis of lumbar region without neurogenic claudication Spinal stenosis, lumbar region, without neurogenic claudication Chronic diastolic heart failure due to valvular disease (HCC) Pulmonary hypertension (HCC) Other chronic pulmonary heart diseases Thrombocytopenia (HCC) Thrombocytopenia, unspecified Elevated bilirubin Jaundice, unspecified, not of 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) Hemangioma of liver Hemangioma of intra-abdominal structures Osteopenia of necks of both femurs Menopause Asymptomatic postmenopausal status (age-related) (natural) Pruritic dermatosis of scalp documented in this encounter Advance Directives Documents on File Type Date Recorded Patient Convertible Power Shovel Operator Expl 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 Care Teams In Tube Conversion Technician Relationship Specialty Start Date End Date Leyda Ahn MD [address] [place] [address], [place] [id number] PCP - General Internal Medicine 02/02/24 documented as of this encounter
--- OUTSIDE RECORDS SUMMARY | 2024-05-12 21:48 | External Medical Summary | Summary of Care ---
Author Name Unknown Organization [facility] Address [address] [place] [address] Phone [phone] Care Team Providers Care Core Composer Machine Tender Name Role Phone Leyda Ahn MD Primary Care Provider Reason for Visit * Reason Onset Date Comments Test Results Lab 12/08/2023 Encounter Details Date Type Department Care Team (Late st Contact Info) Description 12/08/2023 Telephone General Internal Medicine [facility] [address] [facility] [place] [address] Leyda Ahn MD [address] [place] [address] Test Results Lab Allergies Active Allergy Reactions Criticality Noted Date Comments Pantoprazole 01/29/2022 Itchiness, rash Penicillins Hives 01/13/2003 hives documented as of this encounter (statuses as of 03/08/2024) Medications Medication Sig Dispensed Refills Start Date End Date Status Acetaminophen ER 650 MG Oral Tablet Extended Release 2 pill daily in AM & 2 pills in afternoon if needed 5 Active oxygen GASIndications:No cturnal hypoxemia,COPD, mild [...] mouth daily. 45 Tablet 3 4 Active Additional Information Patient taking differently: 25 mgOral Daily(Non-Specified), Reported on 11/16/2023 Gabapentin 100 MG Oral Capsule (Neurontin) Take 1 tab three times daily 270 Capsule 1 4 Active Mesalamine 1.2 GM Oral Tablet Delayed Release (Lialda) TAKE 2 TABLETS BY MOUTH EVERY MORNING 180 Tablet 3 4 Active Furosemide 20 MG Oral Tablet (Lasix) 1 tab by mouth 3 days/week until leg edema improves 30 Tablet 11 3 01/08/20 24 Discontinued Levothyroxine Sodium 112 MCG Oral Tablet (Levoxyl) Take 1 Tablet by mouth daily first thing in the morning. (at least 30 min prior to breakfast or other meds) 90 Tablet 2 4 02/02/20 24 Discontinued(Me dication/Dose Changed) Zoster Vac Recomb Adjuvanted 50 MCG/0.5ML Intramuscular Suspension Reconstituted (Shingrix)Indicat ions:Need for shingles vaccine Inject 0.5 mL into a large muscle now and repeat dose in 60 to 180 days 1 Each 1 4 02/02/20 24 Discontinued Hospital, Clinic, or Other Facility Administered Medication Ordered Dose Route Frequency Start Date End Date Status albuterol sulfate (PROVENTIL) (2.5 MG/3ML) 0.083% inhalation solution 2.5 mgIndications:COPD, severity to be determined (HCC),Chondrosarcoma (HCC),Pulmonary hypertension (HCC) 2.5 mg NEBULIZER PRN 01/07/2019 Active vitamin b-12 (Cyanocobalamin) inj 1,000 mcgIndications:B12 deficiency 1000 mcg IM [id number] 04/19/2023 03/19/2024 Active documented as of this encounter (statuses as of 03/08/2024) Active Problems Problem Noted Date Diagnosed Date [...] as of this encounter (statuses as of 03/08/2024) Resolved Problems Problem Noted Date Diagnosed Date Resolved Date Permanent atrial fibrillation 03/28/2019 10/28/2021 Chronic systolic CHF (conges tive heart failure) 03/28/2019 01/03/2021 CHF with right heart failure 03/21/2019 03/12/2022 Atherosclerosis of aorta 11/16/2018 Carpal tunnel syndrome 03/28/201302/10 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 Henriquez [facility] [...] well after 03/29 surgical repair LOC PRIM EOUFURFT-T-TEL 05/09/200310/2016 Esotropia 01/13/2003 02/10/2017 Overview: 11/24- R sixth nerve palsy- improving MRI/MRA negative Alopecia 01/13/2003 02/10/2017 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/2002 09/20/2018 Overview: not bx proven DIVERTICULOSIS OF COLON 06/16/200202/22 Menopause 06/16/2002 10/23/2021 Abnormal weight gain 06/16/2002 017 Other ulcerative colitis with rectal bleeding 03/12/2022 documented as of this encounter (statuses as of 03/08/2024) Immunizations Name Administration Dates Next Due COVID-19 [...] years and over) Not on file 11/10/2023 Sex and Gender Information Value Date Recorded Sex Assigned at Female 05/19/2019 10:26 AM EST Gender Identity Female 05/19/2019 10:26 AM EST Sexual Orientation Straight 05/19/2019 10 :26 AM EST Job Start Date Occupation Industry Not on file Not on file Not on file documented as of this encounter Miscellaneous Notes * Telephone Encounter - Jeanne Hooper LPN - 12/10/2023 12:59 PM EDT Yola calling back: Aware of the message. She stated that her mom does not get anywhere near 2 Liters. She said that she drinks and 8 oz glass of water in the morning with her pills and does not drink much more throughout the day. She is in [place] at the moment and will bring her mom in Thursday to have labs done. * Telephone Encounter - Linda Peterson LPN - 12/09/2023 3:30 PM EDT Left message for pt's daughter to call back. * Telephone Encounter - Leyda Mckoy MED ASSIST - 12/08/2023 1:04 PM EDT Left message for Yola, patient's daughter, to call the office. Upon return call please transfer to a dedicated telephone nurse. * Telephone Encounter - Leyda Mckoy MED ASSIST - 12/08/2023 1:04 PM EDT ----- Message from Maxwell Sellers MD sent at 12/08/2023 8:39 AM EDT ----- Would call patient/daughter. Sodium is lower, how much fluid is she drinking? Strive for 2 liters total/day. Recheck bmp 2-3 days to follow this. Platelets a little low, please monitor for bleeding/bruising documented in this encounter Plan of Treatment Upcoming Encounters Date Type Department Care Team (Late st Contact Info) Description 04/01/2024 3:00 PM EST Imaging Vascular Lab, [facility] [address] [place] [address] 04/05/2024 8:20 AM EST Office Visit General Internal Medicine [facility] [address] [place] [address] Leyda Ahn MD 200 [facility] [place] [address] 05/30/2024 10:30 AM EST Office Visit Cardiology, [facility] [address] [place] [address] Rajesh Jordan MD [address] [place] [address] 08/17/2024 9:40 AM EDT Office Visit Gastroenterology, [facility] [address] [place] [address] Eduar Beckham MD [address] [place] [address] Scheduled Procedures Name Priority Associated Diagnoses Date/Ti [...] this encounter Medical Devices Implanted Type Area Building Custodian Device Identifier Shelf Expiration Date Model / Serial / Lot Valve Ce Aortic 21mm 3000tfx - [id number] Implanted:Qty : 1 [place]17[place] [facility] [place] Human N/A: Chest [employer]body. ELISABETH 04/17/2010 3000TFX-2 / [id number] / Patch Pericard 8x14cm [id number] - [id number] Implanted:Qty : 1 on 04/17/2010 [place] [facility] [place] - Non Human N/A: Chest [employer] 12/05/2014 PC-0814N / / [id number] Sut Steel 6 M654g - [id number] Implanted:Qty : 4 on 04/17/2010 [place] [facility] [place]A: Chest DO NOT USE 06/17/2014 M654G / / [id number] documented as of this encounter Advance Directives Documents on File Type Date Recorded Patient Corporate Health Consultant Expl 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 Care Teams Core Composer Machine Tender Relationship Specialty Start Date End Date Leyda Ahn MD [address] [facility] [place] [address] PCP - General Internal Medicine 02/02/24 documented as of this encounter
--- OUTSIDE RECORDS SUMMARY | 2024-05-12 21:48 | External Medical Summary | Summary of Care ---
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 ----- Message from Rajesh Jordan MD sent at 04/06/2024 12:44 PM EST ----- Digoxin level good. No changes documented in this encounter Plan of Treatment Upcoming Encounters Date Type Department Care Team (Late st Contact Info) Description 04/11/2024 9:00 AM EST Imaging Radiology, [address] [place] [address] 04/15/2024 10:00 AM EST Office Visit Hematology/Oncology [facility] [address] [facility] [place] [id number] Ghada Whaley CRNP [address] [facility] [place] [address] 05/26/2024 10:20 AM EST Office Visit Rheumatology [address] [place] [address] Jose Johnston MD [address] [place] [address] [place] [address] 05/30/2024 10:30 AM EST Office Visit Cardiology, [facility] [address] [place] [address] Rajesh Jordan MD [address] [facility] [place] [address] 08/12/2024 1:00 PM EDT Office Visit General Internal Medicine [facility] [address] [facility] [place] [address] Leyda Ahn MD [address] [facility] [place] [address] 08/17/2024 9:40 AM EDT Office Visit Gastroenterology, [facility] [address] [place] [address] Eduar Beckham MD [address] [facility] [place] [address] Scheduled Procedures Name Priority Associated Diagnoses Date/Ti [...] this encounter Medical Devices Implanted Type Area Insurance Customer Service Specialist Device Identifier Shelf Expiration Date Model / Serial / Lot Valve Ce Aortic 21mm 3000tfx - [id number] Implanted:Qty : 1 on 04[place]17[place]2010 [place] [facility] [place] - Non Human N/A: Chest [employer] ELISABETH 04/17/2010 3000TFX-2 1 / [id number] / Patch Pericard 8x14cm [id number] - [id number] Implanted:Qty : 1 on 04/17/2010 [place] [facility] [place] - Non Human N/A: Chest [employer] 12/05/2014 -0814N / / [id number] Sut Steel 6 M654g - [id number] Implanted:Qty : 4 on 04/17/2010 [place] [facility] [place]: Chest DO NOT USE 06/17/2014 M654G / / [id number] documented as of this encounter Advance Directives Documents on File Type Date Recorded Patient Primer Inserting Machine Operator Expl 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 Care Teams Student Development Coordinator Relationship Specialty Start Date End Date Leyda Ahn MD 200 [place] [address] PCP - General Internal Medicine 02/02/24 documented as of this encounter
--- OUTSIDE RECORDS SUMMARY | 2024-05-12 21:48 | External Medical Summary ---
Author Name Unknown Address Unknown Organization [facility] [place] [address] Laboratory Report Ordering Provider Test Date Status CASE WHITLOCK 04/04/2024 13:22:15 Final Observation Date Value Abnormality Reference (Units ) Status SYNC LEUKOCYTES IN BLOOD BY AUTOMATED COUNT 04/04/2024 13:22:15 4.44 4.00-10.80 (K/uL) Final Segs 04/04/2024 13:22:15 57.9 40.0-75.0 (%) Final Lymphs % 04/04/2024 13:22:15 26.1 18.0-42.0 (%) Final Monos 04/04/2024 13:22:15 14.0 Above high normal 1.0-11.0 (%) Final Eosinophils 04/04/2024 13:22:15 0.2 0.0-6.0 (%) Final Basos 04/04/2024 13:22:15 1.8 0.0-2.0 (%) Final Absolute Segs 04/04/2024 13:22:15 2.57 1.80-7.70 (K/uL) Final Lymphs, absolute 04/04/2024 13:22:15 1.16 1.00-4.80 (K/ul) Final Monos, Abs 04/04/2024 13:22:15 0.62 0.00-1.10 (K/uL) Final Eos, Abs 04/04/2024 13:22:15 0.01 0.00-0.70 (K/uL) Final Basos, Abs 04/04/2024 13:22:15 0.08 0.00-0.20 (K/uL) Final Performing Location [facility] [address] - [address] [place] [address]
--- OUTSIDE RECORDS SUMMARY | 2024-05-12 21:48 | External Medical Summary | Summary of Care ---
Author Name Unknown Organization [facility] Address [address] [place] [address] Phone [phone] Care Team Providers Care Smoking Pipes Cleaner Name Role Phone Leyda Ahn MD Primary Care Provider [phone] Reason for Visit * Reason Onset Date Comments Advice 04/06/2024 Encounter Details Date Type Department Care Team (Late st Contact Info) Description 04/06/2024 Telephone General Internal Medicine [facility] [address] [facility] [address] Leyda Ahn MD [address] [place] [address] Advice Allergies Active Allergy Reactions Criticality Noted Date Comments Pantoprazole 01/29/2022 Itchiness, rash Penicillins Hives 01/13/2003 hives documented as of this encounter (statuses as of 04/07/2024) Medications Acetaminophen ER 650 MG Oral Tablet [...] as of this encounter (statuses as of 04/07/2024) Active Problems Problem Noted Date Diagnosed Date [...] as of this encounter (statuses as of 04/07/2024) Resolved Problems Problem Noted Date Diagnosed Date Resolved Date Permanent atrial fibrillation 03/28/2019 10/28/2021 Chronic systolic CHF (conges tive heart failure) 03/28/2019 01/03/2021 CHF with right heart failure 03/21/2019 03/12/2022 Atherosclerosis of aorta 11/16/2018 Carpal tunnel syndrome 03/28/201302/10 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 Henriquez [facility] N/S asymptomatic en plaque cavernous sinus [...] well after 03/29 surgical repair LOC PRIM [id number] 05/09/2003 10/10/2016 Esotropia 01/13/2003 02/10/2017 Overview (01/13/2003): 7/03- R sixth nerve palsy- improving MRI/MRA negative Alopecia 01/13/2003 02/10/2017 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/2002 09/20/2018 Overview (06/16/2002): not bx proven DIVERTICULOSIS OF COLON 06/16/200202/22 Menopause 06/16/2002 10/23/2021 Abnormal weight gain 06/16/2002 017 documented as of this encounter (statuses as of 04/07/2024) Immunizations Name Administration Dates Next Due COVID-19 mRNA, LNP-s, No Pre serve, 2-Dose Series (Moderna) 08/30/2020,07/25/2020 COVID-19, MRNA-LNP, PF, 30 M CG/0.3 mL, 12 YRS AND ABOVE, IM (Unomy-Comirnaty) 09/29/2023 COVID-19, mRNA, LNP-s, PF, B ooster, [...] 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 on file Not on file Not on file documented as of this encounter Miscellaneous Notes * Telephone Encounter - Zina Greenfield RN [...] Description 04/11/2024 9:00 AM EST Imaging [place]iology, [address] [place] [address] 04/15/2024 10:00 AM EST Office Visit Hematology/Oncology [facility] [address] [facility] [place] [id number] Ghada Whaley CRNP [address] [place] [address] [place] [address] 05/26/2024 10:20 AM EST Office Visit Rheumatology [address] [place] [address] Jose Johnston MD [address] [place] [address] [place] [address] 05/30/2024 10:30 AM EST Office Visit Cardiology, [facility] [address] [facility] [place] [address] Rajesh Jordan MD [address] [facility] [place] [address] 08/12/2024 1:00 PM EDT Office Visit General Internal Medicine [facility] [address] [facility] [place] [address] Leyda Ahn MD [address] [facility] [place] [address] 08/17/2024 9:40 AM EDT Office Visit Gastroenterology, [facility] [address] [facility] [place] [address] Eduar Beckham MD [address] [place] [address] Scheduled Procedures Name Priority Associated Diagnoses Date/Ti [...] this encounter Medical Devices Implanted Type Area Clinical Geneticist Device Identifier Shelf Expiration Date Model / Serial / Lot Valve Ce Aortic 21mm 3000tfx - [id number] Implanted:Qty : 1 on 04/17/2010 at OR [facility] Tissue - Non Human N/A: Chest [employer] ELISABETH 04/17/2010 3000TFX-2 / [id number] / Patch Pericard 8x14cm [id number] - [id number] Implanted:Qty : 1 on 04/17/2010 at OR [facility] Tissue - Non Human N/A: Chest [employer] 12/05/2014 PC-0814N / / [id number] Sut Steel 6 M654g - [id number] Implanted:Qty : 4 on 04/17/2010 at OR [facility] N/A: Chest DO NOT USE 06/17/2014 M654G / / [id number] documented as of this encounter Advance Directives Documents on File Type Date Recorded Patient Long Term Care Pharmacist Expl 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 Care Teams Smoking Pipes Cleaner Relationship Specialty Start Date End Date Leyda Ahn MD [address] [facility] [address] PCP - General Internal Medicine 02/02/24 documented as of this encounter
--- OUTSIDE RECORDS SUMMARY | 2024-05-12 21:48 | External Medical Summary | Summary of Care ---
Author Name Unknown Organization [facility] Address [address] [place] [address] Phone [phone] Care Team Providers Care Lyric Writer Name Role Phone Leyda Ahn MD Primary Care Provider [phone] Reason for Visit * Reason Onset Date Comments Referral 04/05/2024 SP 30-Day Encounter Details Date Type Department Care Team (Late st Contact Info) Description 04/05/2024 New Patient Triage (TRIPLE AIR VALVE TESTER USE ONLY) Hematology/Oncology 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 No [facility] * Rin Johnson LPN - 04/05/2024 1:27 PM EST Images from the original note were not included. New Patient Triage What is the diagnosis/reason for referral?: Thrombocytopenia, Elevated bilirubin Enter order ID here: [id number] Specialty specific documentation: Hematology/Oncology NEW PATIENT - [...] Description 04/11/2024 9:00 AM EST Imaging Radiology, [place] [address] [address] 05/26/2024 10:20 AM EST Office Visit Rheumatology [place] [address] [address] Jose Johnston MD [address] [place] [address] [place] [address] 05/30/2024 10:30 AM EST Office Visit Cardiology, [facility] [address] [facility] [place] [address] Rajesh Jordan MD [address] [facility] [place] [address] 08/12/2024 1:00 PM EDT Office Visit General Internal Medicine [facility] [address] [place] [address] Leyda Ahn MD [address] [facility] [place] [address] 08/17/2024 9:40 AM EDT Office Visit Gastroenterology, [facility] [address] [facility] [place] [address] Eduar Beckham MD [address] [facility] [place] [address] Scheduled Procedures Name Priority Associated Diagnoses Date/Ti [...] this encounter Medical Devices Implanted Type Area Medical Instrument Cable Fabricator Device Identifier Shelf Expiration Date Model / Serial / Lot Valve Ce Aortic 21mm 3000tfx - [id number] Implanted:Qty : 1 on 04/17/2010 at OR [facility] Tissue - Non Human N/A: Chest [employer] 04/17/2010 3000TFX-2 / [id number] / Patch Pericard 8x14cm [id number] - [id number] Implanted:Qty : 1 on 04/17/2010 at OR [facility] Tissue - Non Human N/A: Chest [employer] 12/05/2014 PC-0814N / / [id number] Sut Steel 6 M654g - [id number] Implanted:Qty : 4 on 04/17/2010 at OR [facility] N/A: Chest DO NOT USE 06/17/2014 M654G / / [id number] documented as of this encounter Advance Directives Documents on File Type Date Recorded Patient Missing Persons Investigator Expl 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 Care Teams Lyric Writer Relationship Specialty Start Date End Date Leyda Ahn MD [address] [facility] [place] [address] PCP - General Internal Medicine 02/02/24 documented as of this encounter
--- OUTSIDE RECORDS SUMMARY | 2024-05-12 21:49 | External Medical Summary | Summary of Care ---
Author Name Unknown Organization [facility] Address [address] [place] [address] Phone [phone] Care Team Providers Care Non Ferrous Material Handler Name Role Phone Leyda Ahn MD Primary Care Provider [phone] Reason for Referral * Medication Prior Authorization - Pending Review Specialty Diagnoses / Procedures Referred By Contac t Referred To Contact Diagnoses Need for shingles vaccine Leyda Ahn MD [address] [facility] [place] [address] Referral ID Status Reason Start Date Expiration Date V isits Requested Visits Authorized [id number] Pending Review 999 999 * Precert (Within 10 days (routine)) - Authorized Specialty Diagnoses / Procedures Referred By Contac t Referred To Contact Radiology Diagnoses Elevated bilirubin Abnormal US (ultrasound) of abdomen Procedures MRI LIVER W WO CONTRAST Leyda Ahn MD [address] [facility] [place] [address] Referral ID Status Reason Start Date Expiration Date V isits Requested Visits Authorized [id number] Authorized 02/03/2024 999 999 Reason for Visit * Reason Onset Date Comments Injury Fall Immunizations 02/02/2024 Shingrix Medication Administration 02/02/2024 Flu an d/or Pneumo Inj Encounter Details Date Type Department Care Team (Latest Contact Info) Description 02/02/2024 9:20 AM EDT Office Visit General Internal Medicine [facility] [address] [place] [address] Leyda Ahn MD [address] [place] [address] Pruritic dermatosis of scalp*; Scalp itch; Eczematous skin lesions; Personal history of fall; Acquired hypothyroidism; Atrial flutter, unspecified type (HCC); History of transcatheter aortic valve replacement (TAVR); Chronic diastolic heart failure due to valvular disease (HCC); DDD (degenerative disc disease), cervical; Cervicalgia; Chronic hypoxic respiratory failure, on home oxygen therapy (HCC); Dry skin; Elevated bilirubin; Abnormal US (ultrasound) of abdomen; Anemia in chronic illness; Need for shingles vaccine; Need for vaccination for zoster; Need for prophylactic vaccination and inoculation against influenza Allergies Active Allergy Reactions Criticality Noted Date Comments Pantoprazole 01/29/2022 Itchiness, rash Penicillins Hives 01/13/2003 hives documented as of this encounter (statuses as of 02/14/2024) Medications Medication Sig Dispensed Refills Start Date [...] MORNING 180 Tablet 3 4 Active Furosemide 40 MG Oral Tablet (Lasix) Take 1 Tablet by mouth in the morning. 30 Tablet 4 Active Clobetasol Propionate 0.05 % External SolutionIndication s:Pruritic dermatosis of scalp,Scalp itch Apply topically to affected area 2 times a day. On scalp , use till better then as needed 25 mL 1 4 Active Levothyroxine Sodium 100 MCG Oral Tablet (Levoxyl)Indicatio ns:Acquired hypothyroidism Take 1 Tablet by mouth in the morning. (at least 30 min prior to breakfast or other meds)--02/03/2024, lab 10 wks. 30 Tablet 1 4 Active Hydrocortisone 2.5 % External [...] 180 days 1 Each 1 4 Active Levothyroxine Sodium 112 MCG Oral Tablet (Levoxyl) Take 1 Tablet by mouth daily first thing in the morning. (at least 30 min prior to breakfast or other meds) 90 Tablet 2 4 024 Discontinued(Me dication/Dose Changed) Zoster Vac Recomb Adjuvanted 50 MCG/0.5ML Intramuscular Suspension Reconstituted (Shingrix)Indicati ons:Need for shingles vaccine Inject 0.5 mL into a large muscle now and repeat dose in 60 to 180 days 1 Each 1 4 024 Discontinued Hospital, Clinic, or Other Facility Administered Medication Ordered Dose Route Frequency Start Date End Date Status albuterol sulfate (PROVENTIL) (2.5 MG/3ML) 0.083% inhalation solution 2.5 mgIndications:COPD, severity to be determined (HCC),Chondrosarcoma (HCC),Pulmonary hypertension (HCC) 2.5 mg NEBULIZER PRN 01/07/2019 Active vitamin b-12 (Cyanocobalamin) inj 1,000 mcgIndications:B12 deficiency 1000 mcg IM [id number] 04/19/2023 03/19/2024 Active documented as of this encounter (statuses as of 02/14/2024) Active Problems Problem Noted Date Diagnosed Date [...] as of this encounter (statuses as of 02/14/2024) Resolved Problems Problem Noted Date Diagnosed Date Resolved Date Permanent atrial fibrillation 03/28/2019 10/28/2021 Chronic systolic CHF (conges tive heart failure) 03/28/2019 01/03/2021 CHF with right heart failure 03/21/2019 03/12/2022 Atherosclerosis of aorta 11/16/2018 Carpal tunnel syndrome 03/28/201302/10 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 Henriquez [facility] N/S asymptomatic en plaque [...] well after 03/29 surgical repair LOC PRIM [id number] 05/09/2003 1010/2016 Esotropia 01/13/2003 02/10/2017 Overview: 11/24- R sixth nerve palsy- improving MRI/MRA negative Alopecia 01/13/2003 02/10/2017 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/2002 09/20/2018 Overview: not bx proven DIVERTICULOSIS OF COLON 06/16/200202/22 Menopause 06/16/2002 10/23/2021 Abnormal weight gain 06/16/2002 017 Other ulcerative colitis with rectal bleeding 03/12/2022 documented as of this encounter (statuses as of 02/14/2024) Immunizations Name Administration Dates Next Due COVID-19 [...] 65+ Yrs, IM (FLUAD) 02/20/2020 Seasonal Influenza, High Dos e, Trivalent, PF, IM (Fluzone HD) 02/02/2024,01/24/2020 Seasonal Influenza, PF, 6 M & above, IM , (FluLaval or Fluzone) 02/16/2019,02/09/2018 Seasonal Influenza, Quadriva lent Hd (Fluzone Hd) 02/16/2023,02/19/2022,02/27/2021 Seasonal Influenza, Quadriva lent, No Preserve, IM 02/10/2017,03/23/2016,03/20/2015 Seasonal Influenza, Trivalen t, (IIV3), with Preserv, (Fluzone) 02/08/2013,03/15/2012,02/11/2011,04/29,04/04/2009,03/23/2008,02/25/2007 ,03/17/2006 TD - Tetanus/Diptheria (ADULT) 10/13/2007 TDAP (age [...] Sign Reading Time Taken Comments Blood Pressure 98/58 02/02/2024 9:45 AM EDT Pulse 63 02/02/2024 9:45 AM EDT Temperature 36.2 C (97.2 F) 02/02/2024 9:45 AM ED T Respiratory Rate - - Oxygen Saturation 95% 02/02/2024 9:45 AM EDT Inhaled Oxygen Concentration - - Weight 57.9 kg (127 lb 9.6 oz) 02/02/2024 9:45 A M EDT Height 172.7 cm (5' 7.99") 02/02/2024 9:45 AM ED T Body Mass Index 19.41 02/02/2024 9:45 AM EDT documented in this encounter Patient Instructions * Patient Instructions* Heaven Mckoy CMA - 02/02/2024 10:40 AM EDT ~~PATIENT INSTRUCTIONS FOR SHINGRIX VACCINE~~ Possible side effects of Shingrix vaccine, (shingles), are usually mild and can include: 1. Soreness or redness at injection site 2. Low grade fever 3. Body aches You may use a fever / pain reducing medication as needed for these symptoms. LET YOUR DOCTOR KNOW IMMEDIATELY IF YOU HAVE DIFFICULTY BREATHING OR SWALLOWING, EXPERIENCE ITCHINGOF FEET OR HANDS, HAVE SWELLING OF EYES, FACE OR INSIDE OF NOSE. ~~PATIENT INSTRUCTIONS FOR FLU SHOT~~ Possible side effects of influenza vaccine, (flu shot), are usually mild and include: 1. Soreness or redness at injection site 2. Low grade fever 3. Body aches You may use Tylenol/Acetaminophen as needed for these symptoms. LET YOUR DOCTOR KNOW IMMEDIATELY IF YOU HAVE DIFFICULTY BREATHING OR SWALLOWING, EXPERIENCE ITCHINGOF FEET OR HANDS, HAVE SWELLING OF EYES, FACE OR INSIDE OF NOSE. documented in this encounter Progress Notes * Heaven Mckoy CMA - 02/02/2024 10:40 AM EDT Does the patient have active shingles? No If, yes, patient must wait to receive vaccine till after rash is gone. Does the patient have an illness today with a fever more than 101?F? No Has the patient ever had a serious allergic reaction after receiving a vaccination? No Has the patient had a blood test showing they are not immune to Chicken Pox (rare)? No If yes, should get Chicken pox vaccine instead of shingrix. Verified patient has prescription/drug coverage. Patient has been informed that ITN copays are close to $0. In most cases copays will be around $10. The maximum co-pay patients may get could as high as $200. yes Shingrix Vaccine Information Sheet has been provided. Hevaen Mckoy CMA 02/02/2024 10:40 AM IMMUNIZATION ADMINISTRATION DOCUMENTATION Time Out Procedure Performed: Yes Patient Identified (Ask Name/Date of ): Yes Patient allergic to latex?No VFC Stock? No Immunization(s) verified: Yes, Immunization Name: Flu and Shingrix, VIS Sheet(s) given: Yes Verified Side and Site: Yes Verified Shot(s) with Parent(s)/Patient: Yes Shingrix was administered per clinic protocol. Patient received the Shingrix VIS (Vaccine Information Sheet). Heaven Mckoy CMA, 02/02/2024, 10:40 AM * Leyda Ahn MD - 02/02/2024 9:51 AM EDT SUBJECTIVE: Nereida Stephen is a 83 year old female. Chief Complaint Patient presents with Injury Fall Nursing Notes: Heaven Mckoy CMA 02/02/24 0948 Signed Patient presents today with complaints of head pain, daughter states she took a fall two weeks ago in [facility]. They are unsure that the patient had hit her head on the fall. States that it is only on theright side of her head down into her neck. Patient typically uses a cane to walk, but is very unsteady and daughter states she may even need to start to use her walker. HPI: as above. Wt Readings from Last 6 Encounters: 02/02/24 57.9 kg (127 lb 9.6 oz) 01/21/24 58.5 kg (129 lb) 01/08/24 59.4 kg (131 lb) 11/30/23 55.4 kg (122 lb 3.2 oz) 11/16/23 54.4 kg (120 lb) 11/10/23 50.9 kg (112 lb 3.2 oz) BP Readings from Last 6 Encounters: 02/02/24 98/58 01/21/24 108/67 01/08/24 102/60 11/30/23 108/68 11/16/23 124/70 11/10/23 50/20 Patient was seen in clinic by Dr. Graves 01/21/2024 status post fall at a pharmacy,falling backwards hitting her head, unsure if she had lost consciousness. EKG had shown atrial flutter with variable block, had labs and CT of the head, orthostatics negative 01/21/2024-CT head-no interval changes from last CT head 03/22/20192746-mtyu-wu-moderate age-related cerebral atrophy with compensatory dilation of [...] claustrophobia can try ct instead--agreed to MRI Denies fever or chills abdominal pain nausea or vomiting. Complains of itchiness of the scalp as well as itchiness of the skin on her right upper back. Taking Zyrtec for itchy watery eyes denies any runny nose Also had pain in her neck and received injections by [facility] currently taking Tylenol 3 a day off aspirin, taking gabapentin only 1 a day H/o bioprosthetic aortic valve stenosis, SP transcatheter [...] started on Entresto and continued Lasix by consumer credit counselor in [place] 08/03/23 for diagnosis of atrial flutter, pulmonary hypertension, CHF- - admitted to [facility], saw Dr. Sellers in follow-up as well [...] a week, increased to Lasix 40mg daily seen Dale bedoya for bilateral leg edema 01/08/2024 COPD with nocturnal hypoxia, does not use oxygen regularly. History of meningioma status post gamma knife surgery 05/2014. 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) TSH Results: Lab Results Component Value Date/Time TSH - [facility] 0.36 01/21/2024 12:27 PM TSH - [facility] 0.63 05/15/2023 12:02 PM TSH - [facility] 0.31 02/16/2023 11:52 AM TSH - [facility] 0.87 06/15/2020 01:48 PM TSH - [facility] 2.71 06/08/2020 11:45 AM TSH - [facility] 3.10 02/22/2020 10:36 AM TSH - [facility] 0.174 (A) 11/12/2021 12:00 AM TSH - [facility] 1.500 09/23/2018 12:00 AM Potassium Results: Lab Results Component Value Date/Time POTASSIUM - [facility] 4.1 01/21/2024 12:27 PM POTASSIUM - [facility] 3.8 01/11/2024 10:09 AM POTASSIUM - [facility] 5.0 12/07/2023 10:41 AM POTASSIUM - [facility] 3.9 09/19/2022 03:07 AM [...] - [facility] 5.4 (H) 04/17/2010 10:00 AM Patient Active Problem List Diagnosis Cervical spondylosis Acquired hypothyroidism 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 20.1 g 3 oxygen IN GAS 2L/min(Oxygen) continuous via nasal [...] breakfast or other meds) 90 Tablet 2 Mesalamine 1.2 GM Oral Tablet Delayed Release (Lialda) TAKE 2 TABLETS BY MOUTH EVERY MORNING 180 Tablet 3 Furosemide 40 MG Oral Tablet (Lasix) Take 1 Tablet by mouth in the morning. 30 Tablet 0 Aspirin 81 MG Oral Tablet Delayed Release Take 1 Tablet by mouth in the morning. Zoster Vac Recomb Adjuvanted 50 MCG/0.5ML Intramuscular Suspension Reconstituted (Shingrix) Inject 0.5 mL into a large muscle now and repeat dose in 60 to 180 days 1 Each 1 Current Facility-Administered Medications Medication Dose Route Frequency Provider Last Rate Last Admin albuterol sulfate (PROVENTIL) (2.5 MG/3ML) 0.083% inhalation solution 2.5 mg 2.5 mg Nebulizer PRN Kelsey Bowles DO 2.5 mg at 11/12/21 1153 vitamin b-12 (Cyanocobalamin) inj 1,000 mcg 1,000 mcg Intramuscular Q4 Weeks Yahir Collado PA-C 1,000 mcg at 05/29/23 1022 Review of patient's allergies indicates: Allergen Reactions Pantoprazole Itchiness, rash Penicillins Hives hives Discussed about covid booster, RSV vaccine.at Immunization History Administered Date(s) Administered COVID-19 mRNA, LNP-s, No Preserve, 2-Dose Series (Moderna) 07/25/2020, 08/30/2020 COVID-19, MRNA-LNP, 23-24, PF, 30 MCG/0.3 mL, 12 YRS AND ABOVE, IM ([facility]) 09/29/2023 COVID-19, mRNA, LNP-s, PF, Booster, 100mcg/0.5mg (Moderna) 05/13/2021 Covid-19, Mrna, Lnp-s, Pf, Bivalent, 30 Mcg, IM, 12 yrs and above (Pfizer) 03/18/2022 PPD 02/14/2011 Pneumococcal Conjugate Vacc, 13 Valent (Prevnar) 11/16/2014 Pneumococcal Polysaccharide PPV23 (Pneumovax) 10/21/2000, 02/22/2007, 12/06/2021 Season Influenza, Quad, PF, Adjuvanted, 65+ Yrs, IM (FLUAD) 02/20/2020 Seasonal Influenza, High Dose, Trivalent, PF, IM (Fluzone HD) 01/24/2020 Seasonal Influenza, PF, 6 M & above, IM , (FluLaval or Fluzone) 02/09/2018, 02/16/2019 Seasonal Influenza, Quadrivalent Hd (Fluzone Hd) 02/27/2021, 02/19/2022, 02/16/2023 Seasonal Influenza, Quadrivalent, No Preserve, IM 03/20/2015, 03/23/2016, 02/10/2017 Seasonal Influenza, Trivalent, (IIV3), with Preserv, (Fluzone) 03/19/2005, 03/17/2006, 02/25/2007, 03/23/2008, 04/04/2009, 04/29/2010, 02/11/2011, 03/15/2012, 02/08/2013 TD - Tetanus/Diptheria (ADULT) 10/13/2007 TDAP (age 10 and older)(Boostrix) 09/14/2014, 03/02/2019 Varicella Zoster Vaccine (Adult) 09/14/2014 Vitamin B12 Injection 11/25/2011, 12/03/2011, 03/15/2012 Zoster Vaccine Recombinant (Shingrix) 09/29/2023 OBJECTIVE: BP 98/58 | Temp 36.2 C (97.2 F) | Ht 1.727 m (5' 7.99") | Wt 57.9 kg (127 lb 9.6 oz) | BMI 19.41 kg/m | BSA 1.67 m Blood pressure 98/58, pulse 63, temperature 36.2 C (97.2 F), height 1.727 m (5' 7.99"), weight 57.9 kg (127 lb 9.6 oz), SpO2 95%, not currently . PHYSICAL EXAM: General: alert, healthy, no distress, well developed Neck: supple, no adenopathy, thyroid Not enlarged without nodularity Heart: regular rhythm and rate,4/6 ESM base Lungs: lungs clear to auscultation Extremities: no edema Abdomen: Soft, non-tender, normal bowel sounds, no masses or organomegaly Skin--dry, excoriation Rt upper back, rt neck, Scalp-areas thick hyperkeratotic lesions ASSESSMENT/PLAN: Pruritic dermatosis of scalp (Primary) - Clobetasol Propionate 0.05 % External Solution; Apply topically to affected area 2 times a day. On scalp , use till better then as needed Scalp itch - Clobetasol Propionate 0.05 % External Solution; Apply topically to affected area 2 times a day. On scalp , use till better then as needed Eczematous skin lesions - Hydrocortisone 2.5 % External Cream; Apply topically to affected area 2 times a day. To affected area. On Rt upper back till better then as needed Personal history of fall Dry skin - Hydrocortisone 2.5 % External Cream; Apply topically to affected area 2 times a day. To affected area. 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 (at least 30 min prior to breakfast or other meds)--02/03/2024, lab 10 wks. Atrial flutter, unspecified type (HCC) - CBC WITH WBC DIFFERENTIAL; Future; Expected date: 03/28/2024 - COMPREHENSIVE METABOLIC PANEL; Future; Expected date: 03/28/2024 History of transcatheter aortic valve replacement (TAVR) - COMPREHENSIVE METABOLIC PANEL; Future; Expected date: 03/28/2024 Chronic diastolic heart failure due to valvular disease (HCC) - COMPREHENSIVE METABOLIC PANEL; Future; Expected date: 03/28/2024 DDD (degenerative disc disease), cervical Cervicalgia Chronic hypoxic respiratory failure, on home oxygen therapy (HCC) Need for shingles vaccine - Zoster Vac Recomb Adjuvanted 50 MCG/0.5ML Intramuscular Suspension Reconstituted (Shingrix); Inject 0.5 mL into a large muscle now and repeat dose in 60 to 180 days Need for vaccination for zoster - ZOSTER VACCINE RECOMB, 2 DOSE, IM (SHINGRIX) Need for prophylactic vaccination and inoculation against influenza - INFLUENZA VAC., TRIVALENT, HD, PF, 65 AND ABOVE, 0.5 ML IM (FLUZONE HD) Follow Up: Return if symptoms worsen or fail to improve, for Return with Physician. | For: Return with Physician | Check-out note: As janine in nov, Labs early mar (This note was completed using the dictation [...] with plan of care. Leyda Ahn MD 02/02/2024 documented in this encounter Nursing Notes * Heaven Mckoy CMA - 02/02/2024 9:43 AM EDT Patient presents today with complaints of head pain, daughter states she took a fall two weeks ago in [facility]. They are unsure that the patient had hit her head on the fall. States that it is only on theright side of her head down into her neck. Patient typically uses a cane to walk, but is very unsteady and daughter states she may even need to start to use her walker. documented in this encounter Plan of Treatment Upcoming Encounters Date Type Department Care Team (Late st Contact Info) Description 02/26/2024 11:15 AM EDT Imaging Radiology [address] [place] [address] 03/02/2024 10:00 AM EDT Office Visit Cardiology, [facility] [address] [place] [address] Rajesh Jordan MD [address] [place] [address] 04/05/2024 8:20 AM EST Office Visit General Internal Medicine [facility] [address] [facility] [place] [address] Leyda Ahn MD [address] [facility] [place] [id number] Scheduled Orders Name Type Priority Associated Diagnoses Orde r Schedule TSH WITH FREE T4 IF INDICATED Lab Routine Acquired hypothyroidism Expected: 03/28/2024 (Approximate), Expires: 02/01/2025 CBC WITH WBC DIFFERENTIAL Lab Routine Atrial flutter, unspecified type (HCC) Anemia in chronic illness Expected: 03/28/2024 (Approximate), Expires: 02/01/2025 COMPREHENSIVE METABOLIC PANEL Lab Routine Atrial flutter, unspecified type (HCC) History of transcatheter aortic valve replacement (TAVR) Chronic diastolic heart failure due to valvular disease (HCC) Expected: 03/28/2024 (Approximate), Expires: 02/01/2025 MRI LIVER W WO CONTRAST Medical Imaging Routine Elevated bilirubin Abnormal US (ultrasound) of abdomen Expected: 02/03/2024, Expires: 03/03/2025 Scheduled Procedures Name Priority Associated Diagnoses Date/Ti [...] this encounter Medical Devices Implanted Type Area Chest Pain Coordinator Device Identifier Shelf Expiration Date Model / Serial / Lot Valve Ce Aortic 21mm [id number] - [id number] Implanted:Qty : 1 on 04/17/2010 at OR [facility] Tissue - Non Human N/A: Chest FRY LIFESCIInotrem ELISABETH 04/17/2010 [id number] / Patch Pericard 8x14cm [id number] - [id number] Implanted:Qty : 1 on 04/17/2010 at OR [facility] Tissue - Non Human N/A: Chest [employer] 12/05/2014 [id number] / / [id number] Sut Steel 6 [id number] - [id number] Implanted:Qty : 4 on 04/17/2010 at OR [facility] N/A: Chest DO NOT USE 06/17/2014 [id number] / / [id number] documented as of this encounter Visit Diagnoses Diagnosis Pruritic dermatosis of scalp- Primary Scalp itch Unspecified pruritic disorder Eczematous skin lesions Unspecified disorder of skin and subcutaneous tissue Personal history of fall Acquired hypothyroidism Unspecified hypothyroidism Atrial flutter, unspecified type (HCC) History of transcatheter aortic valve replacement (TAVR) Chronic diastolic heart failure due to valvular disease (HCC) DDD (degenerative disc disease), cervical Degeneration of cervical intervertebral disc Cervicalgia Chronic hypoxic respiratory failure, on home oxygen therapy (HCC) Dry skin Other specified disease of sebaceous glands Elevated bilirubin Jaundice, unspecified, not of Abnormal US (ultrasound) of abdomen Nonspecific (abnormal) findings on radiological and other examination of abdominal area, including retroperitoneum Anemia in chronic illness Anemia of other chronic disease Need for shingles vaccine Need for prophylactic vaccination and inoculation against other viral diseases Need for vaccination for zoster Need for prophylactic vaccination and inoculation against other viral diseases Need for prophylactic vaccination and inoculation against influenza documented in this encounter Advance Directives Documents on File Type Date Recorded Patient [employer] Expl 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 Care Teams Non Ferrous Material Handler Relationship Specialty Start Date End Date Leyda Ahn MD [address] [place] [address] PCP - General Internal Medicine 02/02/24 documented as of this encounter
--- OUTSIDE RECORDS SUMMARY | 2024-05-12 21:49 | External Medical Summary | Summary of Care ---
Author Name Unknown Organization [facility] Address [address] [place] [address] Phone [phone] Care Team Providers Care Scrap Bunch Maker Name Role Phone Unavailable Primary Care Provider Unavailabl e Reason for Referral * Precert (Within 24 hrs (call dept; emergent)) - Authorized Specialty Diagnoses / Procedures Referred By Contfunmilayo t Referred To Contact Radiology Diagnoses Dizziness Near syncope Injury of head, initial encounter Other lack of coordination Procedures CT HEAD/BRAIN WO CONTRAST Akil Graves III, MD [address] [place] [address] Referral ID Status Reason Start Date Expiration Date V isits Requested Visits Authorized [id number] Authorized 01/21/2024 999 999 Reason for Visit * Reason Comments Dizziness Encounter Details Date Type Department Care Team (Late st Contact Info) Description 01/21/2024 10:40 AM EDT Office Visit [facility] [address] [place] [address] Akil Graves III, MD [address] [place] [address] Dizziness*; Near syncope; Injury of head, initial encounter; Other lack of coordination; Hypotension, unspecified hypotension type; Anemia, unspecified type Allergies Active Allergy Reactions Criticality Noted Date Comments Pantoprazole 01/29/2022 Itchiness, rash Penicillins Hives 01/13/2003 hives documented as of this encounter (statuses as of 02/01/2024) Medications Medication Sig Dispensed Refills Start Date End Date Status Acetaminophen ER 650 MG Oral Tablet Extended Release 2 pill daily in AM & 2 pills in afternoon if needed 03/20/2015 Active oxygen GASIndications:Noct urnal hypoxemia,COPD, mild (HCC) Use 2.5 L/min(Oxygen) as directed at bedtime. 1 Each 1 03/25/2019 Active Albuterol Sulfate HFA 108 (90 Base) MCG/ACT Inhalation Aerosol SolutionIndications :COPD, mild (HCC) Inhale by mouth 2 Puffs every 4 hours as needed for Cough, Shortness of Breath or Wheezing. 20.1 g 3 11/06/2021 Active Aspirin 81 MG Oral Tablet Delayed Release Take 1 Tablet by mouth in the morning. Active oxygen IN GAS 2L/min(Oxygen) continuous via nasal cannula. 1 Each 10/09/2022 Active Metoprolol Succinate ER 25 MG Oral Tablet Extended Release 24 Hour (toPROL XL)Indications:Paro xysmal atrial fibrillation (HCC) Take 0.5 Tablets by mouth daily. 45 Tablet 3 08/12/2023 Active Additional Information Patient taking differently: 25 mgOral Daily(Non-Specified), Reported on 11/16/2023 Gabapentin 100 MG Oral Capsule (Neurontin) Take 1 tab three times daily 270 Capsule 1 09/02/2023 Active Levothyroxine Sodium 112 MCG Oral Tablet (Levoxyl) Take 1 Tablet by mouth daily first thing in the morning. (at least 30 min prior to breakfast or other meds) 90 Tablet 2 09/02/2023 Active Zoster Vac Recomb Adjuvanted 50 MCG/0.5ML Intramuscular Suspension Reconstituted (Shingrix)Indicatio ns:Need for shingles vaccine Inject 0.5 mL into a large muscle now and repeat dose in 60 to 180 days 1 Each 1 09/29/2023 Active Additional Information Patient not taking.Reported on 11/16/2023 Mesalamine 1.2 GM Oral Tablet Delayed Release (Lialda) TAKE 2 TABLETS BY MOUTH EVERY MORNING 180 Tablet 3 10/29/2023 Active Furosemide 40 MG Oral Tablet (Lasix) Take 1 Tablet by mouth in the morning. 30 Tablet 01/08/2024 Active Hospital, Clinic, or Other Facility Administered Medication Ordered Dose Route Frequency Start Date End Date Status albuterol sulfate (PROVENTIL) (2.5 MG/3ML) 0.083% inhalation solution 2.5 mgIndications:COPD, severity to be determined (HCC),Chondrosarcoma (HCC),Pulmonary hypertension (HCC) 2.5 mg NEBULIZER PRN 01/07/2019 Active vitamin b-12 (Cyanocobalamin) inj 1,000 mcgIndications:B12 deficiency 1000 mcg IM [id number] 04/19/2023 03/19/2024 Active documented as of this encounter (statuses as of 02/01/2024) Active Problems Problem Noted Date Diagnosed Date [...] as of this encounter (statuses as of 02/01/2024) Resolved Problems Problem Noted Date Diagnosed Date Resolved Date Permanent atrial fibrillation 03/28/2019 10/28/2021 Chronic systolic CHF (conges tive heart failure) 03/28/2019 01/03/2021 CHF with right heart failure 03/21/2019 03/12/2022 Atherosclerosis of aorta 11/16/2018 Carpal tunnel syndrome 03/28/201302/10 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 Henriquez [facility] [...] well after 03/29 surgical repair LOC PRIM [id number] 05/09/2003 1010/2016 Esotropia 01/13/2003 02/10/2017 Overview: /03- R sixth nerve palsy- improving MRI/MRA negative Alopecia 01/13/2003 02/10/2017 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/2002 09/20/2018 Overview: not bx proven DIVERTICULOSIS OF COLON 06/16/200202/22 Menopause 06/16/2002 10/23/2021 Abnormal weight gain 06/16/2002 017 Other ulcerative colitis with rectal bleeding 03/12/2022 documented as of this encounter (statuses as of 02/01/2024) Immunizations Name Administration Dates Next Due COVID-19 [...] Sign Reading Time Taken Comments Blood Pressure 108/67 01/21/2024 12:11 PM EDT si tting Pulse 194 01/21/2024 12:11 PM EDT Temperature 36.4 C (97.5 F) 01/21/2024 10:29 AM E DT Respiratory Rate 16 01/21/2024 10:29 AM EDT Oxygen Saturation 99% 01/21/2024 10:29 AM EDT Inhaled Oxygen Concentration - - Weight 58.5 kg (129 lb) 01/21/2024 10:29 AM EDT Height - - Body Mass Index 19.61 11/30/2023 12:09 PM EDT documented in this encounter Progress Notes * Star ZHU, Akil Ryan MD - 01/21/2024 12:06 PM EDT Subjective: Nereida Stephen is a 83 year old female. 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 30 Tablet 0 Zoster Vac Recomb Adjuvanted 50 MCG/0.5ML Intramuscular Suspension Reconstituted (Shingrix) Inject 0.5 mL into a large muscle now and repeat dose in 60 to 180 days (Patient not taking: Reported on 11/16/2023) 1 Each 1 Current Facility-Administered Medications Medication Dose Route Frequency Provider Last Rate Last Admin albuterol sulfate (PROVENTIL) (2.5 MG/3ML) 0.083% inhalation solution 2.5 mg 2.5 mg Nebulizer PRN Kelsey Bowlese, 2.5 mg at 11/12/21 1153 vitamin b-12 (Cyanocobalamin) inj 1,000 mcg 1,000 mcg Intramuscular Q4 Weeks Yahir Collado PA-C 1,000 mcg at 05/29/23 1022 Review of patient's allergies indicates: Allergen Reactions Pantoprazole Itchiness, rash Penicillins Hives hives Past Medical History: Diagnosis Date Aortic valve [...] performed by YOLIS CHEATHAM at [facility] COLONOSCOPY 02/26/2005 Colonoscopy done at [facility] by Dr. Hilliard COLONOSCOPY THRU STOMA, W/BIOPSY 02/2009 chronic colitis with moderate activity, sm bowel ileitis, f/u in office COLONOSCOPY W/ BIOPSY (RECTUM) 11/15/2007 bx's taken COLONOSCOPY W/ BIOPSY (RECTUM) 02/14/2011 inflammation in colon- await path COLONOSCOPY, DIAGNOSTIC (RECTUM) 09/12/2014 normal bx, repeat 2 yrs/COLONOSCOPY FLEXIBLE PROXIMAL DIAGNOSTIC performed by Eduar Beckham MD at ENDOSCOPY [facility] COLONOSCOPY, DIAGNOSTIC (RECTUM) 09/24/2018 diverticulosis, repeat 3 yrs / [facility] COLONOSCOPY, DIAGNOSTIC (RECTUM) 12/25/2021 chronic active colitis / INPT [facility] EGD, FLEXIBLE, DIAGNOSTIC 09/24/2018 gastritis / [facility] EGD, FLEXIBLE, DIAGNOSTIC 12/25/2021 sm hiatal hernia / INPT [facility] INFORMATION 04/17/2010 [employer] Aortic Valve Model# [id number]-[id number] MISCELLANEOUS ORDER ([facility] ONLY) 05/2104 Gamma Knife for meningioma at [facility] MISCELLANEOUS ORDER ([facility] ONLY) N/A 05/04/2017 redo of chest chondrosarcoma at [facility] NECK/CHEST DEEP TUMOR REMOVAL, UNDER 5 CM 04/17/2010 EXCISION TUMOR DEEP NECK THORAX performed by DEVORAH CARSON at OR [facility] NONE 07/2004 thyroidectomy in [place] PARTIAL COLECTOMY W/ANASTOMOSIS 10/2001 Colectomy Partial rectosigmoid resection with RUTH/BSO and incidental appy REMOVAL OF APPENDIX 10/2001 Appendectomy REMOVAL OF OVARY/OVIDUCT(S) 10/2001 Ovary/Tube(S) Removal REMOVAL OF THYROID GLAND 2004 Thyroidectomy REPAIR INITIAL INCISIONAL HERNIA 04/14/2005 [facility] Surgi-Center Dr. Hilliard REPAIR INITIAL INCISIONAL OR VENTRAL HERNIA; REDUCIBLE 01/08/2004 Lower abdominal hernia repair with mesh [facility] SurgiCenter Dr. Hilliard REPLACEMENT AORTIC VALVE, BYPASS WITH PROSTHETIC VALVE 04/17/2010 REPLACEMENT AORTIC VALVE performed by SAIDA PARKINSON at [facility] TOTAL HYSTERECTOMY 10/2001 RUTH (Total Abdominal Hysterectomy) Objective: The patient is a 83 year old female BP 92/67 | Pulse 107 | Temp 36.4 C (97.5 F) | Resp 16 | Wt 58.5 kg (129 lb) | SpO2 99% | BMI 19.61 kg/m | BSA 1.68 m General: alert Head: tender lump top back of the head to the right Eye Exam: PERRLA, extraocular movements intact, conjunctiva are pink and non- injected, sclera clear Oropharynx: no exudate, no erythema, lips, buccal mucosa, and tongue normal, and mucous membranes are moist Heart: no gallops and regular rate with extrasystoles Lungs: lungs clear to auscultation Extremities: no edema, no clubbing, no cyanosis ASSESSMENT: (R42) Dizziness (primary encounter diagnosis) (R55) Near syncope (S09.90XA) Injury of head, initial encounter (R27.8) Other lack of coordination (I95.9) Hypotension, unspecified hypotension type (D64.9) Anemia, unspecified type PLAN: EKG atrial flutter variable block check lab work get CT scan of the head orthostatic s did feel a little lightheaded and dizzy but not a significant drop in pressure Total time over 53 minutes Follow up as needed. Akil Graves III, MD * Judy Rivero RN - 01/21/2024 10:29 AM EDT Dizziness, blacked out on Thursday, rash on back right side. Pain in head, back right side. Doesn't know if she hit her head when she fell. documented in this encounter Miscellaneous Notes * Result Encounter Note - Akil Graves III, MD - 01/22/2024 10:13 AM EDT Call please CT stable no acute changes noted documented in this encounter Plan of Treatment Upcoming Encounters Date Type Department Care Team (Late st Contact Info) Description 02/02/2024 9:20 AM EDT Office Visit General Internal Medicine [facility] [address] [place] [address] Leyda Ahn MD [address] [place] [address] 03/02/2024 10:00 AM EDT [facility] [address] [address] Rajesh Jordan MD [address] [address] 04/05/2024 8:20 AM EST Office Visit General Internal Medicine [facility] [address] [place] [address] Leyda Ahn MD [address] [place] [address] Scheduled Procedures Name Priority Associated Diagnoses Date/Ti me COLONOSCOPY FLEXIBLE PROXIMA L DIAGNOSTIC Recall IBD (inflammatory bowel disease) Health Maintenance Due Date Last Done Comments DXA Scan 08/10/2023 08/09/2020, 07/23, 11/07/2009, Additional history exists Zoster Vaccines (3 of 3) 11/24/2023 024, 09/14/2014, 09/14/2014 Colonoscopy 12/26/2023 12/25/2021, 0807/2021, 09/24/2018, Additional history exists COVID-19 Vaccine ( season) 2024 09/29/2023, 03/18/2022, 05/13/2021, Additional history exists Influenza Vaccine (FLU shot) (#1) 2024 02/16/2023, 02/19/2022, 02/27/2021, Additional history exists Depression Screening 05/15/2024 05/15/2023 O2 ASSESSMENT COMPLETED IN PAST YEAR FOR COPD 01/20/2025 01/21/2024 TSH 01/20/2025 01/21/2024, 04/25, 02/16/2023, Additional history exists DTap/Tdap Vaccines (3 - Td or Tdap) 03/02/2029 03/02/2019, 09/14/2014, 10/13/2007 Alpha-1 Antitrypsin Completed 11/01/2021 Pneumococcal Vaccine: 65+ Years Completed 12/06/2021, 11/16/2014, 02/22/2007, Additional history exists RETIRED - COLONOSCOPY-EVERY 2 YRS AGES 18-100 Discontinued 12/25/2021, 12/25/2021, 09/24/2018, Additional history exists HPV (Gardasil) Vaccine Aged Out No lo nger eligible based on patient's age to complete this topic Hepatitis B Vaccine Aged Out No longe r eligible based on patient's age to complete this topic MENINGOCOCCAL (MENACTRA/MENVEO) Aged Out No longer eligible based on patient's age to complete this topic documented as of this encounter Medical Devices Implanted Type Area Foundation Maker Device Identifier Shelf Expiration Date Model / Serial / Lot Valve Ce Aortic 21mm 3000tfx - [id number] Implanted:Qty : 1 on 04/17/2010 at [place] [facility] Tissue - Non Human N/A: Chest [employer] 04/17/2010 3000TFX-2 / [id number] / Patch Pericard 8x14cm [id number] - [id number] Implanted:Qty : 1 on 04/17/2010 at OR [facility] Tissue - Non Human N/A: Chest [employer] 12/05/2014 [id number] / / [id number] Sut Steel 6 M654g - [id number] Implanted:Qty : 4 on 04/17/2010 at [place] [facility] N/A: Chest DO NOT USE 06/17/2014 [id number] / / [id number] documented as of this encounter Procedures Procedure Name Priority Date/Time Associated Diagnosis Comments CT HEAD/BRAIN WO CONTRAST STAT 01/21/2024 4:59 PM EDT Dizziness Near syncope Injury of head, initial encounter Other lack of coordination documented in this encounter Results * CT HEAD/BRAIN WO CONTRAST (01/21/2024 4:59 PM EDT) Anatomical Region Laterality Modality Head Computed Tomogra phy 01/21/2024 7:42 PM EDT Impressions 01/21/2024 7:39 PM EDT IMPRESSION 1. No significant interval changes. No convincing new or acute abnormality identified. Stable chronic predominantly age-related findings as detailed above. MRI scan of the brain is much more sensitive for detection of many intracranial pathologies, and could obtained as clinically indicated. Narrative 01/21/2024 7:[address] scan of the head without contrast - 01/21/2024. HISTORY 83 years old female status post possible syncope and fall complaining of dizziness. TECHNIQUE Multiple contiguous axial sections of the head were obtained from the vertex to the base of the skull. Axial and reformatted sagittal and coronal images were reviewed in bone, soft tissue, and brain windows. COMPARISON Several previous CT scans of the head, the most recent dated 03/22/2019. FINDINGS No significant interval changes are identified compared to the prior examinations. Mild to moderate generalized age-related cerebral parenchymal atrophy is appreciated with compensatory dilatation of the ventricles, sulci, and basal cisterns. Small patchy areas of hypodensity in the bilateral cerebral white matter most likely represent mild chronic small vessel ischemic changes. Atherosclerotic calcifications are present in the intracranial carotid and vertebral arteries. There is no evidence of intracranial space-occupying lesion, edema, hemorrhage, mass effect, midline shift, hydrocephalus, or extraaxial fluid collection. The levi/white matter differentiation is maintained. No calvarial abnormalities are detected. The [place] ocular lenses were surgically replaced; otherwise, the intraorbital contents are within normal limits. The paranasal sinuses and mastoid air cells are clear and well aerated. Procedure Note Jose Peacock MD - 01/21/[address] scan of the head without contrast - 01/21/2024. HISTORY 83 years old female status post possible syncope and fall complaining ofdizziness. TECHNIQUE Multiple contiguous axial sections of the head were obtained from thevertex to the base of the skull. Axial and reformatted sagittal andcoronal images were reviewed in bone, soft tissue, and brain windows. COMPARISON Several previous CT scans of the head, the most recent dated 03/22/2019. FINDINGS No significant interval changes are identified compared to the priorexaminations. Mild to moderate generalized age-related cerebralparenchymal atrophy is appreciated with compensatory dilatation of theventricles, sulci, and basal cisterns. Small patchy areas of hypodensityin the bilateral cerebral white matter most likely represent mild chronicsmall vessel ischemic changes. Atherosclerotic calcifications are presentin the intracranial carotid and vertebral arteries. There is no evidenceof intracranial space-occupying lesion, edema, hemorrhage, mass effect,midline shift, hydrocephalus, or extraaxial fluid collection. Thegray/white matter differentiation is maintained. No calvarialabnormalities are detected. The [place] ocular lenses were surgicallyreplaced; otherwise, the intraorbital contents are within normal limits.The paranasal sinuses and mastoid air cells are clear and well aerated. IMPRESSION IMPRESSION 1. No significant interval changes. No convincing new or acuteabnormality identified. Stable chronic predominantly age-related findingsas detailed above. MRI scan of the brain is much more sensitive for detection of manyintracranial pathologies, and could obtained as clinically indicated. Akil Graves III, MD RAD CT * VITAMIN B12 (01/21/2024 12:27 PM EDT) Vitamin B12 772 232 - 1,245 pg/mL 01/22/2024 4:03 AM EDT LABORATORY [facility] Blood Venous blood specimen / Unknown Venipuncture / Unknown 01/21/2024 12:27 PM EDT 01/21/2024 12:27 PM EDT Akil Graves III, MD LAB BLOOD ORDERABLE S Performing Organization Address [facility] de Phone Number LABORATORY [facility] [address] [place] [address] * (ABNORMAL) IRON SCREEN, INCLUDING TIBC (01/21/2024 12:27 PM EDT) Iron 25(L) 33 - 151 ug/dL 01/22/2024 3:19 AM EDT LABORATORY C Iron Binding Capacity 447(H) 250 - 425 ug/dL 01/22/2024 3:19 AM EDT LABORATORY C Transferrin Saturation Percent 6(L) 15 - 55 % 01/22/2024 3:19 AM EDT LABORATORY [facility] Blood Venous blood specimen / Unknown Venipuncture / Unknown 01/21/2024 12:27 PM EDT 01/21/2024 12:27 PM EDT Akil Graves III, MD LAB BLOOD ORDERABLE S Performing Organization Address [facility] Co de Phone Number LABORATORY [address] [address] * FERRITIN (01/21/2024 12:27 PM EDT) Ferritin 30 13 - 150 ng/mL 01/22/2024 4:03 AM EDT LABORATORY [facility] Comment:Postmenopausal women have higher ferritin levels than pre-menopausal women. The above reference interval is based on pre-menopausal women. Blood Venous blood specimen / Unknown Venipuncture / Unknown 01/21/2024 12:27 PM EDT 01/21/2024 12:27 PM EDT Akil Graves III, MD LAB BLOOD ORDERABLE S LABORATORY [facility] [address] [place] [address] * TSH WITH FREE T4 IF INDICATED (01/21/2024 12:27 PM EDT) TSH 0.36 0.27 - 4.20 uIU/mL 01/22/2024 4:03 AM EDT LABORATORY [facility] Blood Venous blood specimen / Unknown Venipuncture / Unknown 01/21/2024 12:27 PM EDT 01/21/2024 12:27 PM EDT Akil Graves III, MD LAB BLOOD ORDERABLE S Performing Organization Address City/[facility]/ZIP Co de Phone Number LABORATORY [facility] [address] [place] [address] * (ABNORMAL) COMPREHENSIVE METABOLIC PANEL (01/21/2024 12:27 PM EDT) BUN 43(H) 6 - 20 mg/dL 01/21/2024 1:26 PM EDT [facility] 56 Creatinine 0.9 0.5 - 1.0 mg/dL 01/21/2024 1:26 PM EDT [facility] 56 Estimated Glomerular Filtration Rate 60 >=60 mL/min 01/21/2024 1:26 PM EDT [facility] 56- Comment:eGFR is calculated b ased on the CKD-EPI 2020 equation. Sodium 138 135 - 146 mmol/L 01/21/2024 1:26 PM EDT [facility] 56- Potassium 4.1 3.5 - 5.1 mmol/L 01/21/2024 1:26 PM EDT [facility] 56- Chloride 99 98 - 107 mmol/L 01/21/2024 1:26 PM EDT [facility] 56- CO2 25 22 - 32 mmol/L 01/21/2024 1:26 PM EDT [facility] 56- Anion Gap 14 7 - 15 mmol/L 01/21/2024 1:26 PM EDT [facility] Glucose 92 70 - 120 mg/dL 01/21/2024 1:26 PM EDT [address] Albumin 4.4 3.8 - 5.0 g/dL 01/21/2024 1:[address]T [address] AST 53(H) 10 - 35 U/L 01/21/2024 1:26 PM EDT [address] Alkaline Phosphatase 121 35 - 130 U/L 01/21/2024 1:26 PM EDT [address] Bilirubin, Total 2.2(H) <=1.2 mg/dL 01/21/2024 1:26 PM EDT [address] Calcium 9.3 8.4 - 10.2 mg/dL 01/21/2024 1:26 PM EDT [address] Protein 7.6 6.0 - 8.3 g/dL 01/21/2024 1:[address] EDT [address] ALT 24 10 - 35 U/L 01/21/2024 1:26 PM EDT [address] Blood Venous blood specimen / Unknown Venipuncture / Unknown 01/21/2024 12:27 PM EDT 01/21/2024 12:27 PM EDT Akil Graves III, MD LAB BLOOD ORDERABLE S [place] [address] [place] [address] * EKG (01/21/2024 11:35 AM EDT) 01/21/2024 11:3 5 AM EDT Narrative Procedure Note Rajesh Jordan MD - 01/21/2024 11:35 AM EDT REASON FOR STUDY: ?syncope;?syncope CONCLUSIONS: Atrial flutter with variable A-V block Left axis deviation Nonspecific ST and T wave abnormality Prolonged QT interval or tu fusion, consider myocardial disease,electrolyte imbalance, or drug effects Abnormal ECG When compared with ECG of 10-Nov-2023 16:32, No significant change Ventricular Rate: 82 Atrial Rate: 220 QRS Duration: 90 QT/QTc: 416/486 ms P-R-T Prole: 0 : -31 : 264 degrees Akil Graves III, MD EKG [facility] documented in this encounter Visit Diagnoses Diagnosis Dizziness- Primary Dizziness and giddiness Near syncope Syncope and collapse Injury of head, initial encounter Other lack of coordination Hypotension, unspecified hypotension type Anemia, unspecified type Dizziness Dizziness and giddiness Near syncope Syncope and collapse documented in this encounter Advance Directives Documents on File Type Date Recorded Patient Litigation Examiner Expl 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"
--- OUTSIDE RECORDS SUMMARY | 2024-05-12 21:49 | External Medical Summary | Summary of Care ---
Author Name Unknown Organization [facility] Address [address] [place] [address] Phone [phone] Care Team Providers Care Medical Malpractice Paralegal Name Role Phone Leyda Ahn MD Primary Care Provider Reason for Visit * Reason Onset Date Comments Test Results 03/02/2024 Encounter Details Date Type Department Care Team (Late st Contact Info) Description 03/02/2024 Telephone Cardiology, [facility] [address] [place] [address] Rajesh Jordan MD [address] [place] [address] Test Results Allergies Active Allergy Reactions Criticality Noted Date Comments Pantoprazole 01/29/2022 Itchiness, rash Penicillins Hives 01/13/2003 hives documented as of this encounter (statuses as of 03/02/2024) Medications Medication Sig Dispensed Refills Start Date End Date Status Acetaminophen ER 650 MG Oral Tablet Extended Release 2 pill daily in AM & 2 pills in afternoon if needed 03/20/2015 Active oxygen GASIndications:Noctu rnal hypoxemia,COPD, mild (HCC) Use 2.5 L/min(Oxygen) as directed at bedtime. 1 Each 1 03/25/2019 Active Albuterol Sulfate HFA 108 (90 Base) MCG/ACT Inhalation Aerosol SolutionIndications: COPD, mild (HCC) Inhale by mouth 2 Puffs [...] Oral Tablet Extended Release 24 Hour (toPROL XL)Indications:Parox ysmal atrial fibrillation (HCC) Take 0.5 Tablets by mouth daily. 45 Tablet 3 08/12/2023 Active Additional Information Patient taking differently: 25 mgOral Daily(Non-Specified), Reported on 11/16/2023 Gabapentin 100 MG Oral Capsule (Neurontin) Take 1 tab three times daily 270 Capsule 1 09/02/2023 Active Mesalamine 1.2 GM Oral Tablet Delayed Release (Lialda) TAKE 2 TABLETS BY MOUTH EVERY MORNING 180 Tablet 3 10/29/2023 Active Clobetasol Propionate 0.05 % External SolutionIndications: Pruritic dermatosis of scalp,Scalp itch Apply topically to affected area 2 times a day. On scalp , use till better then as needed 25 mL 1 02/02/2024 Active Levothyroxine Sodium 100 MCG Oral Tablet (Levoxyl)Indications :Acquired hypothyroidism Take 1 Tablet by mouth in the morning. (at least 30 min prior to breakfast or other meds)--dec 02/03/2024, lab 10 wks. 30 Tablet 1 02/02/2024 Active Hydrocortisone 2.5 % External CreamIndications:Ecz ematous skin lesions,Dry skin Apply topically to affected area 2 times a day. To affected area. On Rt upper back till better then as needed 30 g 02/02/2024 Active Zoster Vac Recomb Adjuvanted 50 MCG/0.5ML Intramuscular Suspension Reconstituted (Shingrix)Indication s:Need for shingles vaccine Inject 0.5 mL into a large muscle now and repeat dose in 60 to 180 days 1 Each 1 02/02/2024 Active Furosemide 40 MG Oral Tablet (Lasix)Indications:B ilateral lower extremity edema,History of transcatheter aortic valve replacement (TAVR),Pulmonary hypertension (HCC) Take 1 Tablet by mouth in the morning. -dose inc 01/08/24. 30 Tablet 02/24/2024 Active Digoxin 125 MCG Oral Tablet (Lanoxin) Take one three days per week 36 Tablet 3 03/02/2024 Active Hospital, Clinic, or Other Facility Administered Medication Ordered Dose Route Frequency Start Date End Date Status albuterol sulfate (PROVENTIL) (2.5 MG/3ML) 0.083% inhalation solution 2.5 mgIndications:COPD, severity to be determined (HCC),Chondrosarcoma (HCC),Pulmonary hypertension (HCC) 2.5 mg NEBULIZER PRN 01/07/2019 Active vitamin b-12 (Cyanocobalamin) inj 1,000 mcgIndications:B12 deficiency 1000 mcg IM [id number] 04/19/2023 03/19/2024 Active documented as of this encounter (statuses as of 03/02/2024) Active Problems Problem Noted Date Diagnosed Date [...] as of this encounter (statuses as of 03/02/2024) Resolved Problems Problem Noted Date Diagnosed Date Resolved Date Permanent atrial fibrillation 03/28/2019 10/28/2021 Chronic systolic CHF (conges tive heart failure) 03/28/2019 01/03/2021 CHF with right heart failure 03/21/2019 03/12/2022 Atherosclerosis of aorta 11/16/2018 Carpal tunnel syndrome 03/28/201302/10 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 [employer] Other*[id number] 04/08/2010 07/01/2016 Overview: Study Titile: [employer] Markers for Patients with Cardiovascular Disease Project # [id number] PI: Aleisha Loredo MD Please call [phone] with study related questions AORTIC VALVE STENOSIS [...] well after 03/29 surgical repair LOC PRIM [id number] 05/09/2003 1010/2016 Esotropia 01/13/2003 02/10/2017 Overview: 7/03- R sixth nerve palsy- improving MRI/MRA negative Alopecia 01/13/2003 02/10/2017 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/2002 09/20/2018 Overview: not bx proven DIVERTICULOSIS OF COLON 06/16/200202/22 Menopause 06/16/2002 10/23/2021 Abnormal weight gain 06/16/2002 017 Other ulcerative colitis with rectal bleeding 03/12/2022 documented as of this encounter (statuses as of 03/02/2024) Immunizations Name Administration Dates Next Due COVID-19 [...] Telephone Encounter - Eliu Decker LPN - 03/02/2024 2:11 PM EDT Sent patient a [email or web address] message to make aware. Lab ordered. ----- Message from Rajesh Jordan MD sent at 03/02/2024 2:07 PM EDT ----- Good BMP and digoxin level 3 weeks documented in this encounter Plan of Treatment Upcoming Encounters Date Type Department Care Team (Late st Contact Info) Description 04/05/2024 8:20 AM EST Office Visit General Internal Medicine [address] [place] [address] Leyda Ahn MD [address] [place] [address] 05/30/2024 10:30 AM EST Office Visit Cardiology, [facility] [address] [place] [address] Rajesh Jordan MD [address] [place] [address] 08/17/2024 9:40 AM EDT Office Visit Gastroenterology, [facility] [address] [facility] [place] [address] Eduar Beckham MD [address] [facility] [place] [address] Scheduled Orders Name Type Priority Associated Diagnoses Orde r Schedule DIGOXIN LEVEL Lab Routine Typical atrial flutter (HCC) Paroxysmal atrial fibrillation (HCC) S/P aortic valve replacement Stenosis of prosthetic aortic valve, initial encounter Chronic heart failure with preserved ejection fraction (HCC) Chronic right-sided heart failure (HCC) Expected: 03/23/2024 (Approximate), Expires: 03/02/2025 BASIC METABOLIC PANEL Lab Routine Typical atrial flutter (HCC) Paroxysmal atrial fibrillation (HCC) S/P aortic valve replacement Stenosis of prosthetic aortic valve, initial encounter Chronic heart failure with preserved ejection fraction (HCC) Chronic right-sided heart failure (HCC) Expected: 03/23/2024 (Approximate), Expires: 03/02/2025 Scheduled Procedures Name Priority Associated Diagnoses Date/Ti [...] this encounter Medical Devices Implanted Type Area Research Affiliate Device Identifier Shelf Expiration Date Model / Serial / Lot Valve Ce Aortic 21mm 3000tfx - [id number] Implanted:Qty : 1 on 04/17/2010 at OR [facility] [place] Tissue - Non Human N/A: Chest [employer] ELISABETH 04/17/2010 3000TFX-2 [id number] / Patch Pericard 8x14cm [id number] - [id number] Implanted:Qty : 1 on 04/17/2010 at OR [facility] [place] Tissue - Non Human N/A: Chest [employer] 12/05/2014 -[id number] / / [id number] Sut Steel 6 M654g - [id number] Implanted:Qty : 4 on 04/17/2010 at OR [facility] [place] N/A: Chest DO NOT USE 06/17/2014 [id number] / / [id number] documented as of this encounter Visit Diagnoses Diagnosis Typical atrial flutter (HCC)- Primary Atrial flutter Paroxysmal atrial fibrillation (HCC) Atrial fibrillation S/P aortic valve replacement Heart valve replaced by other means Stenosis of prosthetic aortic valve, initial encounter Chronic heart failure with preserved ejection fraction (HCC) Chronic right-sided heart failure (HCC) Congestive heart failure, unspecified documented in this encounter Advance Directives Documents on File Type Date Recorded 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 Care Teams Medical Malpractice Paralegal Relationship Specialty Start Date End Date Leyda Ahn MD [address] [place] [address] PCP - General Internal Medicine 02/02/24 documented as of this encounter
--- OUTSIDE RECORDS SUMMARY | 2024-05-12 21:49 | External Medical Summary | Summary of Care ---
Author Name Unknown Organization [facility] Address [address] [place] [address] Phone [phone] Care Team Providers Care Radio Mechanic Helper Name Role Phone Leyda Ahn MD Primary Care Provider [phone] Reason for Referral * Precert (Within 10 days (routine)) - Authorized Specialty Diagnoses / Procedures Referred By Contac t Referred To Contact Radiology Diagnoses Liver mass Procedures MRI ABDOMEN W WO CONTRAST Maxwell Willoughby MD [address] [place] [address] [place] [id number] Referral ID Status Reason Start Date Expiration Date V isits Requested Visits Authorized [id number] Authorized 02/03/2024 999 999 Reason for Visit * Reason Onset Date Comments Test Results 01/27/2024 Unexpected or In determinate Result Encounter Details Date Type Department Care Team (Late st Contact Info) Description 01/27/2024 Telephone [facility] [address] [place] [address] Maxwell Willoughby MD [address] [facility] [place] [address] Test Results (Unexpected or Indeterminate ... Allergies Active Allergy Reactions Criticality Noted Date Comments Pantoprazole 01/29/2022 Itchiness, rash Penicillins Hives 01/13/2003 hives documented as of this encounter (statuses as of 02/15/2024) Medications Medication Sig Dispensed Refills Start Date [...] in the morning. 30 Tablet 4 Active Levothyroxine Sodium 112 MCG Oral [...] inj 1,000 mcgIndications:B12 deficiency 1000 mcg IM [id number] 04/19/2023 03/19/2024 Active documented as of this encounter (statuses as of 02/15/2024) Active Problems Problem Noted Date Diagnosed Date [...] as of this encounter (statuses as of 02/15/2024) Resolved Problems Problem Noted Date Diagnosed Date Resolved Date Permanent atrial fibrillation 03/28/2019 10/28/2021 Chronic systolic CHF (conges tive heart failure) 03/28/2019 01/03/2021 CHF with right heart failure 03/21/2019 03/12/2022 Atherosclerosis of aorta 11/16/2018 Carpal tunnel syndrome 03/28/201302/10 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 [employer] Other*[id number] 04/08/2010 07/01/2016 Overview: Study Titile: [employer] Markers for Patients with Cardiovascular Disease Project # [id number] PI: Aleisha Loredo MD Please call [phone] with study related questions AORTIC VALVE STENOSIS [...] well after 03/29 surgical repair LOC PRIM [id number] 05/09/200310/2016 Esotropia 01/13/2003 02/10/2017 Overview: /- R sixth nerve palsy- improving MRI/MRA negative Alopecia 01/13/2003 02/10/2017 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/2002 09/20/2018 Overview: not bx proven DIVERTICULOSIS OF COLON 06/16/200202/22 Menopause 06/16/2002 10/23/2021 Abnormal weight gain 06/16/2002 017 Other ulcerative colitis with rectal bleeding 03/12/2022 documented as of this encounter (statuses as of 02/15/2024) Immunizations Name Administration Dates Next Due COVID-19 [...] Trivalen t, (IIV3), with Preserv, (Fluzone) 02/08/2013,03/15/2012,02/11/2011,04/29,04/04/2009,03/23/2008,02/25/2007 ,03/17/2006,03/19/2005 TD - Tetanus/Diptheria (ADULT) 10/13/2007 TDAP (age [...] Miscellaneous Notes * Telephone Encounter - Jeanne Villanueva OSA - 02/15/2024 11:42 AM EDT Patient calling in would like a call back to discuss results. * Addendum Note - Maxwell Willoughby MD - 02/03/2024 9:11 AM EDTAddended by: MAXWELL WILLOUGHBY on: 02/03/2024 09:11 AM Modules accepted: Orders * Telephone Encounter - Sage Clifton RN - 02/01/2024 10:18 AM EDT Called and spoke with patient's daughter Yola and informed her of Dr. Willoughby's previous message. She verbalized understanding of all information. She said the patient has no metal in her body and is not claustrophobic. She said patient would be agreeable to MRI. * Telephone Encounter - Maxwell Willoughby MD - 01/29/2024 10:18 AM EDT See result note 1. Mild gallbladder thickening, any ruq pain, nausea, vomiting? 2. Mild ascites 3. Has a fatty liver infiltration vs hemangioma (benign collection blood vessel) radiology reccomending mri, but if she has a lot of metal in body, claustrophobia can try ct instead * Telephone Encounter - Ruth Negron OSA - 01/27/2024 10:56 AM EDT Hello- The radiologist discovered an unexpected or indeterminate finding on Nereida Stephen ([id number]) and asks that you review the following report. Study Type: US ABDOMEN LIMITED Date of Study: 01/26/2024 IMPRESSION 1. Mild nonspecific gallbladder wall thickening. 2. Focal fat infiltration versus hemangioma in the left hepatic lobe. This may be further evaluatedwith MRI abdomen with gadolinium. 3. Mild ascites. Please respond to this encounter to acknowledge receipt of this message and take responsibility to ensure this report is reviewed. Thank you, ROSIBEL Kim Client Service [facility] documented in this encounter Plan of Treatment Upcoming Encounters Date Type Department Care Team (Late st Contact Info) Description 02/26/2024 11:15 AM EDT Imaging Radiology [address] [place] [address] 03/02/2024 10:00 AM EDT Office Visit Cardiology, [facility] [address] [place] [address] Rajesh Jordan MD [address] [place] [address] 04/05/2024 8:20 AM EST Office Visit General Internal Medicine [facility] [address] [facility] [place] [address] Leyda Ahn MD [address] [facility] [place] [address] Scheduled Orders Name Type Priority Associated Diagnoses Orde r Schedule MRI ABDOMEN W WO CONTRAST Medical Imaging Routine Liver mass Expected: 02/03/2024, Expires: 03/04/2025 Scheduled Procedures Name Priority Associated Diagnoses Date/Ti [...] this encounter Medical Devices Implanted Type Area Retail Sales Lead Device Identifier Shelf Expiration Date Model / Serial / Lot Valve Ce Aortic 21mm 3000tfx - [id number] Implanted:Qty : 1 on 04/17/2010 at OR [facility] [place] Tissue - Non Human N/A: Chest [employer] ELISABETH 04/17/2010 3000TFX-2 / [id number] / Patch Pericard 8x14cm [id number] - [id number] Implanted:Qty : 1 on 04/17/2010 at OR [facility] [place] Tissue - Non Human N/A: Chest [employer] 12/05/2014 PC-0814N / / [id number] Sut Steel 6 M654g - [id number] Implanted:Qty : 4 on 04/17/2010 at OR [facility] [place] N/A: Chest DO NOT USE 06/17/2014 M654G / / [id number] documented as of this encounter Visit Diagnoses Diagnosis Liver mass- Primary Unspecified disorder of liver documented in this encounter Advance Directives Documents on File Type Date Recorded Patient Actuarial Science Teacher Expl 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 Care Teams Radio Mechanic Helper Relationship Specialty Start Date End Date Leyda Ahn MD [address] [facility] [place] [address] PCP - General Internal Medicine 02/02/24 documented as of this encounter
--- OUTSIDE RECORDS SUMMARY | 2024-05-12 21:49 | External Medical Summary | Summary of Care ---
Author Name Unknown Organization [facility] Address [address] [place] [address] Phone [phone] Care Team Providers Care Enterprise Application Developer Name Role Phone Leyda Ahn MD Primary Care Provider [phone] Reason for Visit * Reason Onset Date Comments Test Results 03/02/2024 Encounter Details Date Type Department Care Team (Late st Contact Info) Description 03/02/2024 Telephone Cardiology, [facility] [address] [place] [address] Rajesh Jordan MD [address] [place] [address] Test Results Allergies Active Allergy Reactions Criticality [...] inj 1,000 mcgIndications:B12 deficiency 1000 mcg IM [id number] 04/19/2023 03/19/2024 Active documented as of this [...] 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 Henriquez [facility] [place] N/S asymptomatic en [...] well after 03/29 surgical repair LOC PRIM [id number] 05/09/2003 1010/2016 Esotropia 01/13/2003 02/10/2017 Overview: 7/03- [...] IM, 0.5 mL (Fluzone) 02/08/2013,03/15/2012,02/11/2011,04/29,04/04/2009,03/23/2008,02/25/2007 ,03/17/2006,03/19/2005 Seasonal Influenza, High Dos e, Trivalent, PF, [...] Telephone Encounter - Eliu Decker LPN - 03/08/2024 10:32 AM EDT Called and spoke to patient's daughter and informed of unread [employer] message. Yola verbalized understanding. * Telephone Encounter - Eliu Decker LPN - 03/02/2024 2:11 PM EDT Sent patient a [employer]atchMe[employer]hart message to make aware. Lab ordered. ----- Message from Rajesh Jordan MD sent at 03/02/2024 2:07 PM EDT ----- Good BMP and digoxin level 3 weeks documented in this encounter Plan of Treatment Upcoming Encounters Date Type Department Care Team (Late st Contact Info) Description 04/05/2024 8:20 AM EST Office Visit General Internal Medicine [facility] [address] [place] [address] Leyda Ahn MD [address] [place] [address] 05/30/2024 10:30 AM EST Office Visit Cardiology, [facility] [address] [facility] [place] [address] Rajesh Jordan MD 132 [place] [address] 08/17/2024 9:40 AM EDT Office Visit Gastroenterology, [facility] [address] [facility] [place] [address] Eduar Beckham MD 132 [facility] [place] [address] Scheduled Orders Name Type Priority Associated Diagnoses [...] this encounter Medical Devices Implanted Type Area Band Splitter Device Identifier Shelf Expiration Date Model / Serial / Lot Valve Ce Aortic 21mm 3000tfx - [id number] Implanted:Qty : 1 on 04/17/2010 at OR [facility] [place] Tissue - Non Human N/A: Chest [employer] ELISABETH 04/17/2010 3000TFX-2 1 / [id number] / Patch Pericard 8x14cm [id number] - [id number] Implanted:Qty : 1 on 04/17/2010 at OR [facility] [place] Tissue - Non Human N/A: Chest [employer] 12/05/2014 -0814N / / [id number] Sut Steel 6 M654g - [id number] Implanted:Qty : 4 on 04/17/2010 at OR [facility] [place] N/A: Chest DO NOT USE 06/17/2014 M654G / / [id number] documented as of this encounter Visit Diagnoses [...] Documents on File Type Date Recorded 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 Care Teams Enterprise Application Developer Relationship Specialty Start Date End Date Leyda Ahn MD [facility] [address] PCP - General Internal Medicine 02/02/24 documented as of this encounter
--- OUTSIDE RECORDS SUMMARY | 2024-05-12 21:49 | External Medical Summary | Summary of Care ---
Author Name Unknown Organization [facility] Address [address] [place] [address] Phone [phone] Care Team Providers Care Plant Breeder Name Role Phone Leyda Ahn MD Primary Care Provider [phone] Reason for Referral * Precert (Within 10 days (routine)) - Authorized Specialty Diagnoses / Procedures Referred By Contac t Referred To Contact Radiology Diagnoses Liver mass Procedures MRI ABDOMEN W WO CONTRAST Maxwell Sellers MD [address] [place] [address] [place] [address] Referral ID Status Reason Start Date Expiration Date V isits Requested Visits Authorized [id number] Authorized 02/03/2024 999 999 Reason for Visit * Reason Onset Date Comments Test Results 01/27/2024 Unexpected or In determinate Result Encounter Details Date Type Department Care Team (Late st Contact Info) Description 01/27/2024 Telephone General Internal [facility] [place] [address] [place] [address] Maxwell Sellers MD [address] [facility] [place] [address] Test Results (Unexpected or Indeterminate ... Allergies Active Allergy Reactions Criticality Noted Date Comments Pantoprazole 01/29/2022 Itchiness, rash Penicillins Hives 01/13/2003 hives documented as of this encounter (statuses as of 02/03/2024) Medications Medication Sig Dispensed Refills Start Date [...] inj 1,000 mcgIndications:B12 deficiency 1000 mcg IM [id number] 04/19/2023 03/19/2024 Active documented as of this encounter (statuses as of 02/03/2024) Active Problems Problem Noted Date Diagnosed Date [...] as of this encounter (statuses as of 02/03/2024) Resolved Problems Problem Noted Date Diagnosed Date Resolved Date Permanent atrial fibrillation 03/28/2019 10/28/2021 Chronic systolic CHF (conges tive heart failure) 03/28/2019 01/03/2021 CHF with right heart failure 03/21/2019 03/12/2022 Atherosclerosis of aorta 11/16/2018 Carpal tunnel syndrome 03/28/201302/10 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 Henriquez [facility] [place] asymptomatic en plaque cavernous sinus meningioma [...] well after 03/29 surgical repair LOC PRIM [id number] 05/09/200310/2016 Esotropia 01/13/2003 02/10/2017 Overview: /- R sixth nerve palsy- improving MRI/MRA negative Alopecia 01/13/2003 02/10/2017 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/2002 09/20/2018 Overview: not bx proven DIVERTICULOSIS OF COLON 06/16/200202/22 Menopause 06/16/2002 10/23/2021 Abnormal weight gain 06/16/2002 017 Other ulcerative colitis with rectal bleeding 03/12/2022 documented as of this encounter (statuses as of 02/03/2024) Immunizations Name Administration Dates Next Due COVID-19 [...] as of this encounter Miscellaneous Notes * Addendum Note - Maxwell Sellers MD - 02/03/2024 9:11 AM EDTAddended by: MAXWELL SELLERS on: 02/03/2024 09:11 AM Modules accepted: Orders * Telephone Encounter - Sage Clifton RN - 02/01/2024 10:18 AM EDT Called and spoke with patient's daughter Yola and informed her of Dr. Sellers's previous message. She verbalized understanding of all information. She said the patient has no metal in her body and is not claustrophobic. She said patient would be agreeable to MRI. * Telephone Encounter - Maxwell Sellers MD - 01/29/2024 10:18 AM EDT See [...] an unexpected or indeterminate finding on Nereida K Hailee ([id number]) and asks that you review the following [...] you, ROSIBEL Kim Client Service [facility] documented in this encounter Plan of Treatment Upcoming Encounters Date Type Department Care Team (Late st Contact Info) Description 02/26/2024 11:15 AM EDT Imaging Radiology [facility] [address] [place] [address] 03/02/2024 10:00 AM EDT Office Visit Cardiology, [facility] [address] [place] [address] Rajesh Jordan MD [address] [place] [address] 04/05/2024 8:20 AM EST Office Visit General Internal Medicine [facility] [place] [address] [place], [place] [address] Leyda Ahn MD [address] [place] [address] Scheduled Orders Name Type Priority Associated Diagnoses Orde r Schedule MRI ABDOMEN W WO CONTRAST Medical Imaging Routine Liver mass Expected: 02/03/2024, Expires: 03/04/2025 Scheduled Procedures Name Priority Associated Diagnoses Date/Ti me COLONOSCOPY FLEXIBLE PROXIMA L DIAGNOSTIC Recall IBD (inflammatory bowel disease) Health Maintenance Due Date Last Done Comments Colonoscopy 12/26/2023 12/25/2021, 07/2021, 09/24/2018, Additional history exists COVID-19 Vaccine ( season) 2024 09/29/2023, 03/18/2022, 05/13/2021, Additional history exists DXA Scan 02/09/2024 08/09/2020, 07/23, 11/07/2009, Additional history exists Postponed from 08/10/2023 (Other) Adult Wellness Visit 05/07/2024 05/07/2023 Depression Screening [...] this encounter Medical Devices Implanted Type Area Metal Off Bearer Device Identifier Shelf Expiration Date Model / Serial / Lot Valve Ce Aortic 21mm 3000tfx - [id number] Implanted:Qty : 1 on 04/17/2010 [place] [facility] [place] Tissue - Non Human N/A: Chest FRY [employer] ELISABETH 04/17/2010 3000TFX-2 / [id number] / Patch Pericard 8x14cm [id number] - [id number] Implanted:Qty : 1 on 04/17/2010 [place] [facility] [place] Tissue - Non Human N/A: Chest [employer] 12/05/2014 PC-0814N / / [id number] Sut Steel 6 M654g - [id number] Implanted:Qty : 4 on 04/17/2010 [place] [facility] [place] N/A: Chest DO NOT USE 06/17/2014 M654G / / [id number] documented as of this encounter Visit Diagnoses Diagnosis Liver mass- Primary Unspecified disorder of liver documented in this encounter Advance Directives Documents on File Type Date Recorded Patient Conduit Helper Expl 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 Care Teams Plant Breeder Relationship Specialty Start Date End Date Leyda Ahn MD [address] [facility] [place] [address] PCP - General Internal Medicine 02/02/24 documented as of this encounter
--- OUTSIDE RECORDS SUMMARY | 2024-05-12 21:49 | External Medical Summary | Summary of Care ---
Author Name Unknown Organization [facility] Address [address] [place] [address] Phone [phone] Care Team Providers Care Voltage Inspector Name Role Phone Leyda Ahn MD Primary Care Provider [phone] Reason for Visit * Reason Comments Outpatient Testing Encounter Details Date Type Department Care Team (Late st Contact Info) Description 03/02/2024 11:20 AM EDT Laboratory Laboratory, [facility] [address] [place] [address] [facility] [address] [place] [address] Typical atrial flutter (HCC) Allergies Active Allergy Reactions Criticality Noted [...] inj 1,000 mcgIndications:B12 deficiency 1000 mcg IM [id number] 04/19/2023 03/19/2024 Active documented as of this [...] 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 Henri[facility] [...] well after 03/29 surgical repair LOC PRIM [id number] 05/09/2003 10/0 10/2016 Esotropia 01/13/2003 02/10/2017 Overview: /03- R sixth [...] AM EST Office Visit General Internal Medicine [facility] [address] [place] [address] Leyda Ahn MD [address] [place] [address] 05/30/2024 10:30 AM EST Office Visit Cardiology, [facility] [address] [place] [address] Rajesh Jordan MD [address] [place] [address] 08/17/2024 9:40 AM EDT Office Visit Gastroenterology, [facility] [address] [place] [address] Eduar Beckham MD [address] [place] [address] Pending Results Name Type Priority Associated Diagnoses Date /Time BASIC METABOLIC PANEL Lab Routine Typical atrial flutter (HCC) 03/02/2024 11:12 AM EDT Scheduled Procedures Name Priority Associated Diagnoses Date/Ti [...] this encounter Medical Devices Implanted Type Area Tools And Parts Attendant Device Identifier Shelf Expiration Date Model / Serial / Lot Valve Ce Aortic 21mm 3000tfx - [id number] Implanted:Qty : 1 on [place]17[place] [facility] [place] - Non Human N/A: Chest [employer] ELISABETH 04/17/2010 3000TFX-2 [id number] / Patch Pericard 8x14cm Ie9144g - [id number] Implanted:Qty : 1 on 04/17/2010 [place] [facility] [place] Tissue - Non Human N/A: Chest [employer] 12/05/2014 PC-0814N / / [id number] Sut Steel 6 M654g - [id number] Implanted:Qty : 4 on 04/17/2010 [place] [facility] [place] N/A: Chest DO NOT USE 06/17/2014 M654G / / [id number] documented as of this encounter Visit Diagnoses Diagnosis Typical atrial flutter (HCC) Atrial flutter documented in this encounter Advance Directives Documents on File Type Date Recorded Patient Stars Coordinator Expl 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 Care Teams Voltage Inspector Relationship Specialty Start Date End Date Leyda Ahn MD [address] [place] [address] PCP - General Internal Medicine 02/02/24 documented as of this encounter
--- OUTSIDE RECORDS SUMMARY | 2024-05-12 21:49 | External Medical Summary | Summary of Care ---
Author Name Unknown Organization [facility] Address [address] [place] [address] Phone [phone] Care Team Providers Care Financial Services Education Consultant Name Role Phone Leyda Ahn MD Primary Care Provider [phone] Reason for Visit * Reason Onset Date Comments Test Results 03/08/2024 Encounter Details Date Type Department Care Team (Late st Contact Info) Description 03/08/2024 Telephone General Internal Medicine [facility] [address] [facility] [place] [address] Leyda Ahn MD [address] [place] [address] Test Results Allergies Active Allergy Reactions Criticality [...] inj 1,000 mcgIndications:B12 deficiency 1000 mcg IM [id number] 04/19/2023 03/19/2024 Active documented as of this [...] 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 Henriquez [facility] [place] asymptomatic en plaque cavernous sinus meningioma [...] well after 03/29 surgical repair LOC PRIM [id number] 05/09/2003 10/10/2016 Esotropia 01/13/2003 02/10/2017 Overview: 7/03- R sixth [...] encounter Miscellaneous Notes * Telephone Encounter - Linda Peterson LPN - 03/08/2024 11:24 AM EDT Patient's daughter aware and verbalized understanding * Telephone Encounter - Linda Peterson LPN - 03/08/2024 11:22 AM EDT ----- Message from Leyda Ahn MD sent at 2024 9:32 PM EDT ----- MRI of the abdomen in evaluation of abnormal ultrasound-normal gallbladder, 3 cm hemangioma(benign vascular growth) in left lobe of the liver, Cardiomegaly with right atrial enlargement, dilated hepatic veins as well as small volume ascites and mild body wall edema--all suggestive of right heart dysfunction-addressed by . Please see refill encounter chain 02/22/24 regarding Lasix and clarify frequency of use. documented in this encounter Plan of Treatment Upcoming Encounters Date Type Department Care Team (Late st Contact Info) Description 04/05/2024 8:20 AM EST Office Visit General Internal Medicine [facility] [address] [facility] [place] [address] Leyda Ahn MD [address] [facility] [place] [address] 05/30/2024 10:30 AM EST Office Visit Cardiology, [facility] [address] [place] [address] Rajesh Jordan MD [address] [place] [address] 08/17/2024 9:40 AM EDT Office Visit Gastroenterology, [facility] [address] [place] [address] Eduar Beckham MD [address] [place] [address] Scheduled Procedures Name Priority Associated Diagnoses Date/Ti [...] this encounter Medical Devices Implanted Type Area Mobile Application Tester Device Identifier Shelf Expiration Date Model / Serial / Lot Valve Ce Aortic 21mm 3000tfx - [id number] Implanted:Qty : 1 on 04/17/2010 [place] [facility] [place] Tissue - Non Human N/A: Chest [employer] ELISABETH 04/17/2010 3000TFX-2 [id number] / Patch Pericard 8x14cm [id number] - [id number] Implanted:Qty : 1 on 04/17/2010 at [place] [facility] [place] Tissue - Non Human N/A: Chest [employer] 12/05/2014 PC-0814N / / [id number] Sut Steel 6 M654g - [id number] Implanted:Qty : 4 on 04/17/2010 at [place] [facility] [place] N/A: Chest DO NOT USE 06/17/2014 M654G / / [id number] documented as of this encounter Advance Directives Documents on File Type Date Recorded Patient Tiger Machine Operator Expl 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 Care Teams Financial Services Education Consultant Relationship Specialty Start Date End Date Leyda Ahn MD [address] [facility] [place] [address] PCP - General Internal Medicine 02/02/24 documented as of this encounter
--- OUTSIDE RECORDS SUMMARY | 2024-05-12 21:49 | External Medical Summary | Summary of Care ---
Author Name Unknown Organization [facility] Address [address] [place] [address] Phone [phone] Care Team Providers Care Wheel Assembler Name Role Phone Leyda Ahn MD Primary Care Provider [phone] Reason for Visit * Reason Comments Follow Up Encounter Details Date Type Department Care Team (Late st Contact Info) Description 03/02/2024 10:00 AM EDT Office Visit Cardiology, [facility] [address] [place] [address] Rajesh Jordan MD [address] [place] [address] Typical atrial flutter (HCC)* Allergies Active Allergy Reactions Criticality Noted [...] inj 1,000 mcgIndications:B12 deficiency 1000 mcg IM [id number] 04/19/2023 03/19/2024 Active documented as of this [...] 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 Henriquez [facility] N/S asymptomatic en plaque cavernous sinus meningioma [...] well after 03/29 surgical repair LOC PRIM [id number] 05/09/2003 10/0 10/2016 Esotropia 01/13/2003 02/10/2017 Overview: [...] Sign Reading Time Taken Comments Blood Pressure 116/82 03/02/2024 10:28 AM EDT Pulse 124 03/02/2024 10:28 AM EDT Temperature - - Respiratory Rate 16 03/02/2024 10:28 AM EDT Oxygen Saturation - - Inhaled Oxygen Concentration - - Weight 55.3 kg (122 lb) 03/02/2024 10:28 AM EDT Height - - Body Mass Index 18.55 02/02/2024 9:45 AM EDT documented in this encounter Progress Notes * Rajesh Jordan MD - 03/02/2024 10:00 AM EDT March 02, 2024 Cardiology Follow Up Referring Provider: PCP: [place] [address] [phone] Chief Complaint: Follow-up valvular disease SUBJECTIVE: Nereida Stephen is a 83 year old year old female with ongoing cardiac issues 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 Patient underwent TAVR valve in valve 09/12/22 at [facility]. LV thrombus noted during case. Started onheparin and developed retroperitoneal bleed. IV heparin discontinued. LV thrombus was resolved on repeat echo and no anticoagulation therapy was given on discharge No coronary disease by preoperative cardiac catheterization, 2009. 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 Not on chronic anticoagulation due to bleeding complications Carotid artery occlusion, right. Last duplex 2019 COPD Dilated right heart structures with moderate pulmonary hypertension Nocturnal hypoxemia treated with supplemental oxygen, 2 L/min Mechanical fall with left tentorium subdural hematoma identified December 28, 2018 History of chronic low back pain and spinal stenosis, prior epidural injections. History of ulcerative colitis/diverticulosis. Hypothyroidism B12 deficiency History of hyponatremia secondary to dehydration and alcohol consumption Patient is seen in close clinical follow-up. Patient accompanied by daughter who aids in history Patient has been relatively sedentary recently does become fatigued with activity. No syncope or near syncope no edema. Prescription for furosemide ran out of proximally 1-1/2 weeks ago and has not used any diuretics. No worsening edema or dramatic weight gain Appetite only fair Does admit to mild abdominal girth increase No fevers or chills no bleeding difficulties Just started iron supplement A Complete Review of Systems is as stated above or negative. Patient Active Problem List Diagnosis Cervical spondylosis Acquired hypothyroidism Chondrosarcoma (HCC) History of transcatheter aortic valve replacement (TAVR) B12 deficiency Meningioma (HCC) Right internal carotid occlusion Paroxysmal atrial fibrillation (HCC) Crohn's disease of large intestine without complication (HCC) Idiopathic peripheral neuropathy COPD, group B, by GOLD 2017 classification ([facility]) Pulmonary hypertension ([facility]) Stenosis of prosthetic aortic valve Spinal stenosis of lumbar region without neurogenic claudication Venous insufficiency Chronic rhinitis Atrial flutter ([facility]) Review of patient's allergies indicates: Allergen Reactions [...] of Breath or Wheezing. 20.1 g 3 Metoprolol Succinate ER 25 MG Oral Tablet [...] BY MOUTH EVERY MORNING 180 Tablet 3 Levothyroxine Sodium 100 MCG Oral Tablet (Levoxyl) Take 1 Tablet by mouth in the morning. (at least30 min prior to breakfast or other meds)--dec 02/03/2024, lab 10 wks. 30 Tablet 1 Furosemide 40 MG Oral Tablet (Lasix) Take 1 Tablet by mouth in the morning. - dose inc 01/08/24. 30 Tablet 0 Aspirin 81 MG Oral Tablet Delayed Release Take 1 Tablet by mouth in the morning. (Patient not taking: Reported on 02/24/2024) oxygen IN GAS 2L/min(Oxygen) continuous via nasal cannula. 1 Each 0 Clobetasol Propionate 0.05 % External Solution Apply [...] Collado PA-C 1,000 mcg at 05/29/23 1022 OBJECTIVE/PHYSICAL EXAMINATION: BP 116/82 | Pulse 124 | Resp 16 | Wt 55.3 kg (122 lb) | BMI 18.55 kg/m | BSA 1.63 m General: Age appropriate female n no acute distress Head: normocephalic, no masses, lesions, tenderness or abnormalities Eyes: conjunctiva are pink and non-injected, sclera clear Throat: clear Nares: without discharge Neck: supple, no adenopathy, normal jugular venous pulse, no hepatojugular reflux, no carotid bruits Chest: normal shape and normal respiratory effort Lungs: clear to auscultation and percussion Cardiac Exam: - regular rate with atrial flutter, grade 3/6 systolic murmur right sided heave, no diastolic murmur, gallop or rub - normal S-1, normal S-2 Abdomen: abdomen soft, non-tender, no abnormal masses, no hepatosplenomegaly, no abdominal bruit, no femoral bruit Musculoskeletal: no gait disturbance, no joint inflammation, no deforming arthritis Extremities: no edema, no cyanosis, pulses intact 2+/4 Neuro: grossly normal exam Data: Echocardiogram November 11, 2023, [facility] Moderate left ventricular hypertrophy, EF 55 dash 60% Moderate left atrial and severe right atrial dilation Mild right ventricular dilation Normally functioning TAVR Moderate mitral insufficiency and severe tricuspid insufficiency Estimated systolic pulmonary pressure 40 mm Hg Not significantly changed from November 04, 2022 ASSESSMENT: 83 year old year old female With complex constellation of cardiac issues as above. Currently without physical findings of acute heart failure at risk for further right-sided heart failure abdominal distention and edema PLAN: 1. Atrial flutter with elevated ventricular response rate, with activity event monitor without significant bradycardia. Will add low-dose digoxin 125 mcg 3 days per week 2. Symptomatic hypotension possibly secondary to Entresto and volume depletion. Currently appears euvolemic. Using furosemide only sporadically Recommended continuing daily weights sodium and fluid restriction. Weight has trended downward. Suspect patient will require dose of furosemide at least once weekly and noted that the patient and caregiver BMP today to reassess electrolytes and renal function 3. Dilated right heart with tricuspid insufficiency. No signs of right heart failure. Abdominal girth increase , small amount of ascites and hepatic congestion reflect patient's right heart failure. DISPOSITION: Return 3 months Rajesh Jordan MD Cardiology, [facility] [address] [facility] [place] [address] I spent a total of 40-54 minutes (exact time 40 mins) on the date of service in preparation, delivery, and documentation of the care provided to Nereida Stephen excluding any time spent in the performance of separately billed services. documented in this encounter Nursing Notes * Dorita Marie LPN - 03/02/2024 10:27 AM EDT Examination Room: 14 Name: Nereida Stephen Date of : 1940 Reason for Visit: Follow up Problems/Concerns: Edema has improved. Weights steady around 125lb Interim Hosp(s): denies Chest Pain/SOB: denies MyChart Discussed: ALREADY ACTIVE Patient was instructed to not get up on the exam table until directed and assisted by their provider; patient is to remain seated in the chair/ wheelchair/ exam table for fall prevention and safety reasons. Patient is aware staff will assist stepping down off exam table with personnel. documented in this encounter Plan of Treatment Upcoming Encounters Date Type Department Care Team (Late st Contact Info) Description 04/05/2024 8:20 AM EST Office Visit General Internal Medicine [address] [place] [address] [facility] [place] [address] Leyda Ahn MD [address] [facility] [place] [address] 05/30/2024 10:30 AM EST Office Visit Cardiology, [facility] [address] [place] [address] Rajesh Jordan MD [address] [place] [address] 08/17/2024 9:40 AM EDT Office Visit Gastroenterology, [facility] [address] [place] [address] Eduar Beckham MD 132 [facility] [place] [address] Pending Results Name Type Priority Associated Diagnoses Date /Time BASIC METABOLIC PANEL Lab Routine Typical atrial flutter (HCC) 03/02/2024 11:12 AM EDT Scheduled Orders Name Type Priority Associated Diagnoses Orde r Schedule BASIC METABOLIC PANEL Lab Routine Typical atrial flutter (HCC) Expected: 03/02/2024, Expires: 03/02/2025 Scheduled Procedures Name Priority Associated [...] this encounter Medical Devices Implanted Type Area Laborer [place] Device Identifier Shelf Expiration Date Model / Serial / Lot Valve Ce Aortic 21mm 3000tfx - [id number] Implanted:Qty : 1 on 04/17/2010 at OR [facility] Tissue - Non Human N/A: Chest FRY [id number] ELISABETH 04/17/2010 3000TFX-2 [id number] / Patch Pericard 8x14cm [id number] - [id number] Implanted:Qty : 1 on 04/17/2010 at OR [facility] Tissue - Non Human N/A: Chest [employer] 12/05/2014 [id number]-[id number] / / [id number] Sut Steel 6 M654g - [id number] Implanted:Qty : 4 on 04/17/2010 at OR [facility] N/A: Chest DO NOT USE 06/17/2014 [id number] / / [id number] documented as of this encounter Visit Diagnoses Diagnosis Typical atrial flutter (HCC)- Primary Atrial flutter documented in this encounter Advance Directives Documents on File Type Date Recorded Patient Student Loan Counselor Expl 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 Care Teams Wheel Assembler Relationship Specialty Start Date End Date Leyda Ahn MD [address] [place] [address] PCP - General Internal Medicine 02/02/24 documented as of this encounter"
--- OUTSIDE RECORDS SUMMARY | 2024-05-12 21:49 | External Medical Summary | Summary of Care ---
Author Name Unknown Organization [facility] Address [address] [place] [address] Phone [phone] Care Team Providers Care Cloth Sander Name Role Phone Leyda Ahn MD Primary Care Provider [phone] Reason for Referral * Evaluate & Treat - Unlimited Visits (Within 10 days (routine)) - Authorized Specialty Diagnoses / Procedures Referred By Contfunmilayo ramirez Referred To Contact Gastroenterology Diagnoses Crohn's disease of large intestine without complication (HCC) Amalia Ricci PA-C [address] [place] [address] [address] Eduar Beckham MD 132 [facility] [place] [address] Referral ID Status Reason Start Date Expiration Date Visits Requested Visits Authorized [id number] Authorized Specialty Services Required 02/24/[phone] Question Answer Referral Priority Within 10 days (routine) Where should this appointment be scheduled? [facility] For what condition is the patient being referred? All Gastro Conditions Reason for Visit * Reason Comments Return Visit Eye doctor wanted he r seen for her low BP at earlier appt. Patient denies any other concerns. Encounter Details Date Type Department Care Team (Late st Contact Info) Description 02/24/2024 8:00 AM EDT Office Visit General Internal Medicine State Deena Tomas [address] [place] [address] [place] [address] Amalia Ricci PA-C [address] [place] [address] [address] Blood pressure check*; Crohn's disease of large intestine without complication (HCC) Allergies Active Allergy Reactions Criticality Noted Date Comments Pantoprazole 01/29/2022 Itchiness, rash Penicillins Hives 01/13/2003 hives documented as of this encounter (statuses as of 02/24/2024) Medications Medication Sig Dispensed Refills Start Date [...] in the morning. 30 Tablet 01/08/2024 Active Clobetasol Propionate 0.05 % External SolutionIndications: [...] 180 days 1 Each 1 02/02/2024 Active Hospital, Clinic, or Other Facility Administered Medication Ordered Dose Route Frequency Start Date End Date Status albuterol sulfate (PROVENTIL) (2.5 MG/3ML) 0.083% inhalation solution 2.5 mgIndications:COPD, severity to be determined (HCC),Chondrosarcoma (HCC),Pulmonary hypertension (HCC) 2.5 mg NEBULIZER PRN 01/07/2019 Active vitamin b-12 (Cyanocobalamin) inj 1,000 mcgIndications:B12 deficiency 1000 mcg IM [id number] 04/19/2023 03/19/2024 Active documented as of this encounter (statuses as of 02/24/2024) Active Problems Problem Noted Date Diagnosed Date [...] as of this encounter (statuses as of 02/24/2024) Resolved Problems Problem Noted Date Diagnosed Date Resolved Date Permanent atrial fibrillation 03/28/2019 10/28/2021 Chronic systolic CHF (conges tive heart failure) 03/28/2019 01/03/2021 CHF with right heart failure 03/21/2019 03/12/2022 Atherosclerosis of aorta 11/16/2018 Carpal tunnel syndrome 03/28/201302/10 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 Henriquez [facility] [place]/S asymptomatic en plaque cavernous sinus meningioma [...] well after 03/29 surgical repair LOC PRIM [id number] 05/09/2003 10/0 10/2016 Esotropia 01/13/2003 02/10/2017 Overview: /- R sixth nerve palsy- improving MRI/MRA negative Alopecia 01/13/2003 02/10/2017 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/2002 09/20/2018 Overview: not bx proven DIVERTICULOSIS OF COLON 06/16/200202/22 Menopause 06/16/2002 10/23/2021 Abnormal weight gain 06/16/2002 017 Other ulcerative colitis with rectal bleeding 03/12/2022 documented as of this encounter (statuses as of 02/24/2024) Immunizations Name Administration Dates Next Due COVID-19 mRNA, LNP-s, No Pre serve, 2-Dose Series (Moderna) 08/30/2020,07/25/2020 COVID-19, MRNA-LNP, 23-24, P F, 30 MCG/0.3 mL, 12 YRS AND ABOVE, IM (NavigatorMD-Comirnat) 09/29/2023 COVID-19, mRNA, LNP-s, PF, B ooster, [...] Sign Reading Time Taken Comments Blood Pressure 104/60 02/24/2024 8:18 AM EDT Pulse 103 02/24/2024 8:18 AM EDT Temperature 36.1 C (96.9 F) 02/24/2024 8:18 AM ED T Respiratory Rate - - Oxygen Saturation - - Inhaled Oxygen Concentration - - Weight 56.9 kg (125 lb 8 oz) 02/24/2024 8:18 AM EDT Height - - Body Mass Index 19.09 02/02/2024 9:45 AM EDT documented in this encounter Progress Notes * Amalia Ricci PA-C - 02/24/2024 8:23 AM EDT Images from the original note were not included. History of Present Illness Nereida Stephen is a 83 year old female that presents for Return Visit (Eye doctor wanted her seen for her low BP at earlier appt. Patient denies any other concerns. ) Pt here today for an acute visit to discuss low BP. Was seen at a new eye doctor and they wanted her seen for her low BP. Pt's BP has been running low for years. Pt feels at her baseline and has no concerns. Accompanied today by her daughter who assists with history. Review of Systems: See HPI for pertinent positives. All other review of systems is negative. Physical Exam Vitals: 02/24/24 0818 Temp: 36.1 C (96.9 F) Pulse: 103 BP: 104/60 Physical Exam Constitutional: General: She is not in acute distress. Appearance: She is not diaphoretic. Cardiovascular: Rate and Rhythm: Normal rate. Pulmonary: Effort: Pulmonary effort is normal. Skin: General: Skin is warm and dry. Neurological: General: No focal deficit present. Mental Status: She is alert. Mental status is at baseline. I have reviewed the following results: Assessment and Plan Blood pressure check Blood pressure stable with past readings today. Pt is feeling at her baseline. Crohn's disease of large intestine without complication (HCC) Pt has not had f/up with GI since 2021. Was to have repeat colonoscopy but don't see that this has been done. Pt is agreeable to referral back to see them. - ADULT GASTROENTEROLOGY REFERRAL OP Wrap-Up Follow Up: Return if symptoms worsen or fail to improve. Time: I spent a total of 20-29 minutes (exact time 24 mins) on the date of service in preparation, delivery, and documentation of the care provided to Nereida Stephen excluding any time spent in the performance of separately billed services. documented in this encounter Nursing Notes * Lesly Ramirez MED ASSIST - 02/24/2024 8:21 AM EDT Chief Complaint Patient presents with Return Visit Eye doctor wanted her seen for her low BP at earlier appt. Patient denies any other concerns. Patient has been verbally educated on the need or importance of Colon Cancer Screening and Dexa Scan and has declined topic(s). documented in this encounter Plan of Treatment Upcoming Encounters Date Type Department Care Team (Late st Contact Info) Description 02/26/2024 11:15 AM EDT Imaging Radiology [facility] [address] [place] [address] 03/02/2024 10:00 AM EDT Office Visit Cardiology, [facility] [address] [place] [address] Rajesh Jordan MD [address] [place] [address] 04/05/2024 8:20 AM EST Office Visit General Internal Medicine [address] [place] [address] [place] [address] Leyda Ahn MD [address] [facility] [place] [address] 08/17/2024 9:40 AM EDT Office Visit Gastroenterology, [facility] [address] [facility] [place] [address] Eduar Beckham MD [address] [place] [address] Scheduled Procedures Name Priority Associated Diagnoses Date/Ti me COLONOSCOPY FLEXIBLE PROXIMA L DIAGNOSTIC Recall IBD (inflammatory bowel disease) Scheduled Referrals Name Type Priority Associated Diagnoses Orde r Schedule ADULT GASTROENTEROLOGY REFERRAL OP Referral Within 10 days (routine) Crohn's disease of large intestine without complication (HCC) Ordered: 02/24/2024 Health Maintenance Due Date Last Done Comments DXA Scan 08/10/2023 08/09/2020, 07/23, 11/07/2009, Additional history exists Colonoscopy 12/26/2023 12/25/2021, 07/2021, 09/24/2018, Additional history exists COVID-19 Vaccine ( season) 2024 09/29/2023, 03/18/2022, 05/13/2021, Additional history exists Postponed from 01/24/2024 (Unavailable) Adult Wellness Visit 05/07/2024 05/07/2023 Depression Screening [...] this encounter Medical Devices Implanted Type Area Qa Software Test Engineer Device Identifier Shelf Expiration Date Model / Serial / Lot Valve Ce Aortic 21mm 3000tfx - [id number] Implanted:Qty : 1 on 04/17/2010 at [place] [facility] Tissue - Non Human N/A: Chest FRY [employer]IF[employer]CI[employer] ELISABETH 04/17/2010 3000TFX-2 / [id number] / Patch Pericard 8x14cm [id number] - [id number] Implanted:Qty : 1 on 04/17/2010 at [place] [facility] Tissue - Non Human N/A: Chest [employer] 12/05/2014 PC-0814N / / [id number] Sut Steel 6 M654g - [id number] Implanted:Qty : 4 on 04/17/2010 at [place] [facility] N/A: Chest DO NOT USE 06/17/2014 M654G / / [id number] documented as of this encounter Visit Diagnoses Diagnosis Blood pressure check- Primary Screening for hypertension Crohn's disease of large intestine without complication (HCC) Regional enteritis of large intestine documented in this encounter Advance Directives Documents on File Type Date Recorded Patient Supervisor Residential Expl 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 Care Teams Cloth Sander Relationship Specialty Start Date End Date Leyda Ahn MD [address] [place] [address] PCP - General Internal Medicine 02/02/24 documented as of this encounter
--- OUTSIDE RECORDS SUMMARY | 2024-05-12 21:49 | External Medical Summary ---
Author Name Unknown Address Unknown Organization [facility] [address] [place] [address] Laboratory Report Ordering Provider Test Date Status LOBITO PARRA 03/02/2024 11:12:25 Final Observation Date Value Abnormality Reference (Units ) Status BUN 03/02/2024 11:12:25 42 Above high normal 6-20 (mg/dL) Final Creatinine 03/02/2024 11:12:25 0.8 0.5-1.0 (mg/dL) Final Glomerular filtration rate/1.73 sq M.predicted [Volume Rate/Area] in Serum, Plasma or Blood by Creatinine-based formula (CKD-EPI) 03/02/2024 11:12:25 76 >=60 (mL/min) Final eGFR is calculated based on the CKD-EPI 2020 equation. Sodium 03/02/2024 11:12:25 140 135-146 (m mol/L) Final Potassium 03/02/2024 11:12:25 5.1 3.5-5.1 (m mol/L) Final Cl 03/02/2024 11:12:25 101 98-107 (mm ol/L) Final CO2 03/02/2024 11:12:25 30 22-32 (mmo l/L) Final Anion gap 03/02/2024 11:12:25 9 7-15 (mmol /L) Final Glucose 03/02/2024 11:12:25 84 70-120 (mg /dL) Final Calcium 03/02/2024 11:12:25 10.0 8.4-10.2 ( mg/dL) Final Performing Location [facility] [address] [place] [address]
--- OUTSIDE RECORDS SUMMARY | 2024-05-12 21:49 | External Medical Summary | Summary of Care ---
Author Name Unknown Organization [facility] Address [address] [place] [address] Phone [phone] Care Team Providers Care Basketball Referee Name Role Phone Leyda Ahn MD Primary Care Provider [phone] Encounter Details Date Type Department Care Team (Late st Contact Info) Description 02/29/2024 Orders Only PATIENT PORTAL DO NOT DELETE THIS DEPT USED BY [place] [id number] Allergies Active Allergy Reactions Criticality Noted Date Comments Pantoprazole 01/29/2022 Itchiness, rash Penicillins Hives 01/13/2003 hives documented as of this encounter (statuses as of 02/29/2024) Medications Medication Sig Dispensed Refills Start Date [...] -dose inc 01/08/24. 30 Tablet 02/24/2024 Active Hospital, Clinic, or Other Facility Administered Medication Ordered Dose Route Frequency Start Date End Date Status albuterol sulfate (PROVENTIL) (2.5 MG/3ML) 0.083% inhalation solution 2.5 mgIndications:COPD, severity to be determined (HCC),Chondrosarcoma (HCC),Pulmonary hypertension (HCC) 2.5 mg NEBULIZER PRN 01/07/2019 Active vitamin b-12 (Cyanocobalamin) inj 1,000 mcgIndications:B12 deficiency 1000 mcg IM [id number] 04/19/2023 03/19/2024 Active documented as of this encounter (statuses as of 02/29/2024) Active Problems Problem Noted Date Diagnosed Date [...] as of this encounter (statuses as of 02/29/2024) Resolved Problems Problem Noted Date Diagnosed Date Resolved Date Permanent atrial fibrillation 03/28/2019 10/28/2021 Chronic systolic CHF (conges tive heart failure) 03/28/2019 01/03/2021 CHF with right heart failure 03/21/2019 03/12/2022 Atherosclerosis of aorta 11/16/2018 Carpal tunnel syndrome 03/28/201302/10 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 [address] [address] Rajesh Jordan MD [address] [address] 04/05/2024 8:20 AM EST [facility] [address] [place] [address] Leyda Ahn MD [address] [place] [address] 08/17/2024 9:40 AM EDT Office Visit Gastroenterology, [facility] [address] [address] Eduar Beckham MD [address] [address] Scheduled Procedures Name Priority Associated Diagnoses Date/Ti [...] this encounter Medical Devices Implanted Type Area Employee Communications Manager Device Identifier Shelf Expiration Date Model / Serial / Lot Valve Ce Aortic 21mm 3000tfx - [id number] Implanted:Qty : 1 on 04/17/2010 [place] [facility] [place] - Non Human N/A: Chest [employer] ELISABETH 04/17/2010 3000TFX-2 1 / [id number] / Patch Pericard 8x14cm [id number] - [id number] Implanted:Qty : 1 on 04/17/2010 [place] [facility] [place] - Non Human N/A: Chest [employer] 12/05/2014 -0814N / / [id number] Sut Steel 6 M654g - [id number] Implanted:Qty : 4 on 04/17/2010 [place] [facility] [place] N/A: Chest DO NOT USE 06/17/2014 [id number] / / [id number] documented as of this encounter Advance Directives Documents on File Type Date Recorded Patient Communications Department Chairperson Expl 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 Care Teams Basketball Referee Relationship Specialty Start Date End Date Leyda Ahn MD [address] [place] [address] PCP - General Internal Medicine 02/02/24 documented as of this encounter
--- OUTSIDE RECORDS SUMMARY | 2024-05-12 21:50 | External Medical Summary ---
Author Name Unknown Address Unknown Organization [id number]:[facility] - [address] [facility] [address] Laboratory Report Ordering Provider Test Date Status DONOVAN LIN 01/11/2024 10:14:10 Final Observation Date Value Abnormality Reference (Units ) Status Sodium, Urine 01/11/2024 10:14:10 40 (mmol/ L) Final Performing Location [facility] - [address] [place] [address]
--- OUTSIDE RECORDS SUMMARY | 2024-05-12 21:50 | External Medical Summary | Summary of Care ---
Author Name Unknown Organization [facility] Address [address] [place] [address] Phone [phone] Care Team Providers Care Firearms Model Maker Name Role Phone Unavailable Primary Care Provider Unavailabl e Reason for Visit * Reason Onset Date Comments Test Results Imaging Study 01/22/2024 Encounter Details Date Type Department Care Team (Late st Contact Info) Description 01/22/2024 Telephone Family Practice [facility] 200 [facility] [place] [address] Akil Graves III, MD [address] [place] [address] Test Results Imaging Study Allergies Active Allergy Reactions Criticality Noted Date Comments Pantoprazole 01/29/2022 Itchiness, rash Penicillins Hives 01/13/2003 hives documented as of this encounter (statuses as of 01/22/2024) Medications Medication Sig Dispensed Refills Start Date [...] inj 1,000 mcgIndications:B12 deficiency 1000 mcg IM [id number] 04/19/2023 03/19/2024 Active documented as of this encounter (statuses as of 01/22/2024) Active Problems Problem Noted Date Diagnosed Date [...] as of this encounter (statuses as of 01/22/2024) Resolved Problems Problem Noted Date Diagnosed Date Resolved Date Permanent atrial fibrillation 03/28/2019 10/28/2021 Chronic systolic CHF (conges tive heart failure) 03/28/2019 01/03/2021 CHF with right heart failure 03/21/2019 03/12/2022 Atherosclerosis of aorta 11/16/2018 Carpal tunnel syndrome 03/28/201302/10 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 Henriquez [facility] [place] asymptomatic en plaque cavernous sinus meningioma [...] well after 03/29 surgical repair LOC PRIM [id number] 05/09/2003 10/0 10/2016 Esotropia 01/13/2003 02/10/2017 Overview: 11/24- R sixth nerve palsy- improving MRI/MRA negative Alopecia 01/13/2003 02/10/2017 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/2002 09/20/2018 Overview: not bx proven DIVERTICULOSIS OF COLON 06/16/200202/22 Menopause 06/16/2002 10/23/2021 Abnormal weight gain 06/16/2002 017 Other ulcerative colitis with rectal bleeding 03/12/2022 documented as of this encounter (statuses as of 01/22/2024) Immunizations Name Administration Dates Next Due COVID-19 [...] encounter Miscellaneous Notes * Telephone Encounter - Heaven Mckoy CMA - 01/22/2024 10:35 AM EDT Spoke with patient's daughter regarding CT and other lab results. She verbalized understanding. * Telephone Encounter - Heaven Mckoy CMA - 01/22/2024 10:35 AM EDT ----- Message from Akil Graves MD sent at 01/22/2024 10:13 AM EDT ----- Call please CT stable no acute changes noted documented in this encounter Plan of Treatment Upcoming Encounters Date Type Department Care Team (Late st Contact Info) Description 01/26/2024 12:45 PM EDT Imaging Radiology [facility] [address] [facility] [place] [address] 01/27/2024 12:20 PM EDT Office Visit General Internal Medicine [address] [place] [address] [place] [address] Leyda Ahn MD [address] [facility] [place] [address] [address] 03/02/2024 10:00 AM EDT Office Visit Cardiology, [facility] [address] [address] Rajesh Jordan MD [address] [address] 04/05/2024 8:20 AM EST Office Visit General Internal Medicine [facility] [address] [facility] [place], [place] [address] Leyda Ahn MD [address] [facility] [place], [place] [address] Scheduled Procedures Name Priority Associated Diagnoses Date/Ti me COLONOSCOPY FLEXIBLE PROXIMA L DIAGNOSTIC Recall IBD (inflammatory bowel disease) Health Maintenance Due Date Last Done Comments DXA Scan 08/10/2023 08/09/2020, 07/23, 11/07/2009, Additional history exists Zoster Vaccines (3 of 3) 11/24/2023 024, 09/14/2014, 09/14/2014 Colonoscopy 12/26/2023 12/25/2021, 0807/2021, 09/24/2018, Additional history exists Influenza Vaccine (FLU shot) (#1) 2024 02/16/2023, 02/19/2022, 02/27/2021, Additional history exists COVID-19 Vaccine ( - 2022- season) 2024 09/29/2023, 03/18/2022, 05/13/2021, Additional history [...] encounter Medical Devices Implanted Type Area Manager Concrete Device Identifier Shelf Expiration Date Model / Serial / Lot Valve Ce Aortic 21mm 3000tfx - [id number] Implanted:Qty : 1 on 04/17/2010 [place] [facility] [place] - Non Human N/A: Chest [employer] ELISABETH 04/17/2010 3000TFX-2 [id number] / Patch Pericard 8x14cm [id number] - [id number] Implanted:Qty : 1 on 04/17/2010 at [place] [facility] [place] Tissue - Non Human N/A: Chest [employer] 12/05/2014 PC-0814N / / [id number] Sut Steel 6 M654g - [id number] Implanted:Qty : 4 on 04/17/2010 at [place] [facility] [place] N/A: Chest DO NOT USE 06/17/2014 M654G / / [id number] documented as of this encounter Advance Directives Documents on File Type Date Recorded Patient Internal Controls Consultant Expl 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
--- OUTSIDE RECORDS SUMMARY | 2024-05-12 21:50 | External Medical Summary ---
Author Name Unknown Address Unknown Organization K09:[facility] - [address] [place] [address] Laboratory Report Ordering Provider Test Date Status CASE WHITLOCK 01/11/2024 10:09:56 Final Observation Date Value Abnormality Reference (Units ) Status BUN 01/11/2024 10:09:56 45 Above high normal 6-20 (mg/dL) Final Creatinine 01/11/2024 10:09:56 0.9 0.5-1.0 (mg/dL) Final Glomerular filtration rate/1.73 sq M.predicted [Volume Rate/Area] in Serum, Plasma or Blood by Creatinine-based formula (CKD-EPI) 01/11/2024 10:09:56 61 >=60 (mL/min) Final eGFR is calculated based on the CKD-EPI 2020 equation. Sodium 01/11/2024 10:09:56 140 135-146 (m mol/L) Final Potassium 01/11/2024 10:09:56 3.8 3.5-5.1 (m mol/L) Final Cl 01/11/2024 10:09:56 98 98-107 (mm ol/L) Final CO2 01/11/2024 10:09:56 29 22-32 (mmo l/L) Final Anion gap 01/11/2024 10:09:56 13 7-15 (mmol /L) Final Glucose 01/11/2024 10:09:56 93 70-120 (mg /dL) Final Albumin 01/11/2024 10:09:56 4.3 3.8-5.0 (g /dL) Final AST (Aspartate aminotransferase) 01/11/2024 10:09:56 43 Above high normal 10-35 (U/L) Final Alk Phos 01/11/2024 10:09:56 92 35-130 (U/ L) Final Bilirubin, Total 01/11/2024 10:09:56 2.9 Above high no rmal <=1.2 (mg/dL) Final Calcium 01/11/2024 10:09:56 9.6 8.4-10.2 ( mg/dL) Final Protein 01/11/2024 10:09:56 7.3 6.0-8.3 (g /dL) Final ALT (Alanine aminotransferase) 01/11/2024 10:09:56 17 10-35 (U/L) Tommie rosales Performing Location [facility] [address] [place] [address]
--- OUTSIDE RECORDS SUMMARY | 2024-05-12 21:50 | External Medical Summary ---
Author Name Unknown Address Unknown Organization K01:[facility] - [address] [place] [address] Laboratory Report Ordering Provider Test Date Status NADIR CHACON III 01/21/2024 12:27:14 Final Observation Date Value Abnormality Reference (Units ) Status Iron 01/21/2024 12:27:14 25 Below low normal 33-151 (ug/dL) Final Iron-binding capacity 01/21/2024 12:27:14 447 Above high normal 250-425 (ug/dL) Final Transferrin Sat % 01/21/2024 12:27:14 6 Below low normal 15-55 (%) Final Performing Location [facility] - [address] [place] [address]
--- OUTSIDE RECORDS SUMMARY | 2024-05-12 21:50 | External Medical Summary | Summary of Care ---
Author Name Unknown Organization [facility] Address [address] [place] [address] Phone [phone] Care Team Providers Care Vtc Technician Name Role Phone Unavailable Primary Care Provider Unavailabl e Reason for Visit * Reason Onset Date Comments Test Results Lab 01/13/2024 Encounter Details Date Type Department Care Team (Late st Contact Info) Description 01/13/2024 Telephone General Internal Medicine [facility] [address] [facility] [place] [address] Leyda Ahn MD 200 [place] [address] Test Results Lab Allergies Active Allergy Reactions Criticality Noted Date Comments Pantoprazole 01/29/2022 Itchiness, rash Penicillins Hives 01/13/2003 hives documented as of this encounter (statuses as of 01/14/2024) Medications Medication Sig Dispensed Refills Start Date [...] inj 1,000 mcgIndications:B12 deficiency 1000 mcg IM [id number] 04/19/2023 03/19/2024 Active documented as of this encounter (statuses as of 01/14/2024) Active Problems Problem Noted Date Diagnosed Date [...] as of this encounter (statuses as of 01/14/2024) Resolved Problems Problem Noted Date Diagnosed Date Resolved Date Permanent atrial fibrillation 03/28/2019 10/28/2021 Chronic systolic CHF (conges tive heart failure) 03/28/2019 01/03/2021 CHF with right heart failure 03/21/2019 03/12/2022 Atherosclerosis of aorta 11/16/2018 Carpal tunnel syndrome 03/28/201302/10 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 09/20/2018 Overview: not bx proven DIVERTICULOSIS OF COLON 06/16/200202/22 Menopause 06/16/2002 10/23/2021 Abnormal weight gain 06/16/2002 017 Other ulcerative colitis with rectal bleeding 03/12/2022 documented as of this encounter (statuses as of 01/14/2024) Immunizations Name Administration Dates Next Due COVID-19 [...] Telephone Encounter - Robert Herman OSA - 01/14/2024 1:59 PM EDT LMOM 01/13 * Telephone Encounter - Robert Herman OSA - 01/14/2024 1:59 PM EDT ----- Message from Leyda Ahn MD sent at 01/13/2024 7:26 PM EDT ----- Jerald Neo mckinney, With new attrition I am listed as PCP as I saw her for hops f/u and acute visits She has seen since 2020, please check who she wants listed as PCP and jerald follow up in 1 month given lab abnormalities . Thank you, Leyda ----- Message ----- From: Maxwell Sellers MD Sent: 01/12/2024 8:48 AM EDT To: Leyda Ahn MD; # 1. Sodium back to normal, good news, I hope she is feeling ok 2. Bilirubin increasing, check abdominal u/s to assess anatomy ,recheck labs 2-4 weeks 3. Hemoglobin mildly lower, but close to her baseline, will recheck 2-3 weeks as well 4. Platelets a little low (help us clot) monitor for increasing bleeding/bruising, will recheck 2-4weeks * Telephone Encounter - Kaia Delgado LPN - 01/13/2024 4:00 PM EDT Daughter, Yola lolyd. Given message. Verbalized understanding. Transferred to Lashawn in scheduling. * Telephone Encounter - Leyda Mckoy MED ASSIST - 01/13/2024 2:48 PM EDT Left message for the patient to call the office. Upon return call please transfer to a dedicated telephone nurse. * Telephone Encounter - Leyda Mckoy MED ASSIST - 01/13/2024 2:46 PM EDT ----- Message from Maxwell Sellers MD sent at 01/12/2024 8:48 AM EDT ----- 1. Sodium back to normal, good news, I hope she is feeling ok 2. Bilirubin increasing, check abdominal u/s to assess anatomy ,recheck labs 2-4 weeks 3. Hemoglobin mildly lower, but close to her baseline, will recheck 2-3 weeks as well 4. Platelets a little low (help us clot) monitor for increasing bleeding/bruising, will recheck 2-4weeks documented in this encounter Plan of Treatment Upcoming Encounters Date Type Department Care Team (Late st Contact Info) Description 01/26/2024 12:45 PM EDT Imaging Radiology [facility] [address] [place] [address] 03/02/2024 10:00 AM EDT Office Visit Cardiology, [facility] [address] [place] [address] Rajesh Jordan MD 132 [facility] [place] [address] 04/05/2024 8:20 AM EST Office Visit General Internal Medicine [facility] [address] [place] [address] Leyda Ahn MD [address] [facility] [address] [address] [address] Scheduled Procedures Name Priority Associated Diagnoses Date/Ti me COLONOSCOPY FLEXIBLE PROXIMA L DIAGNOSTIC Recall IBD (inflammatory bowel disease) Health Maintenance Due Date Last Done Comments DXA Scan 08/10/2023 08/09/2020, 07/23, 11/07/2009, Additional history exists Zoster Vaccines (3 of 3) 11/24/2023 024, 09/14/2014, 09/14/2014 Colonoscopy 12/26/2023 12/25/2021, 08/07/2021, 09/24/2018, Additional history exists Influenza Vaccine (FLU shot) (#1) 2024 02/16/2023, 02/19/2022, 02/27/2021, Additional history exists COVID-19 Vaccine (2022- season) 2024 09/29/2023, 03/18/2022, 05/13/2021, Additional history exists Depression Screening 05/15/2024 05/15/2023 TSH 05/15/2024 05/15/2023, 01/24, 10/02/2022, Additional history exists O2 ASSESSMENT COMPLETED IN PAST YEAR FOR COPD 11/29/2024 11/30/2023 DTaP,Tdap,and Td Vaccines (3 - Td or [...] this encounter Medical Devices Implanted Type Area Mold Shaker Device Identifier Shelf Expiration Date Model / Serial / Lot Valve Ce Aortic 21mm 3000tfx - [id number] Implanted:Qty : 1 on 04/17/2010 at [place] [facility] [place] Tissue - Non Human N/A: Chest [employer] ELISABETH 04/17/2010 3000TFX-2 / [id number] / Patch Pericard 8x14cm [id number] - [id number] Implanted:Qty : 1 on 04/17/2010 at OR [facility] [place] Tissue - Non Human N/A: Chest [employer] 12/05/2014 -0814N / / [id number] Sut Steel 6 M654g - [id number] Implanted:Qty : 4 on 04/17/2010 at OR [facility] [place] N/A: Chest DO NOT USE 06/17/2014 M654G / / [id number] documented as of this encounter Advance Directives Documents on File Type Date Recorded Patient Access Clinician Expl 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
--- OUTSIDE RECORDS SUMMARY | 2024-05-12 21:50 | External Medical Summary ---
Author Name Unknown Address Unknown Organization K09:[facility] [place] [address] Laboratory Report Ordering Provider Test Date Status CASE WHITLOCK 01/21/2024 12:27:14 Final Observation Date Value Abnormality Reference (Units ) Status SYNC LEUKOCYTES IN BLOOD BY AUTOMATED COUNT 01/21/2024 12:27:14 4.99 4.00-10.80 (K/uL) Final Segs 01/21/2024 12:27:14 62.4 40.0-75.0 (%) Final Lymphs % 01/21/2024 12:27:14 23.2 18.0-42.0 (%) Final Monos 01/21/2024 12:27:14 11.0 1.0-11.0 (%) Final Eosinophils 01/21/2024 12:27:14 1.6 0.0-6.0 (%) Final Basos 01/21/2024 12:27:14 1.8 0.0-2.0 (%) Final Absolute Segs 01/21/2024 12:27:14 3.11 1.80-7.70 (K/uL) Final Lymphs, absolute 01/21/2024 12:27:14 1.16 1.00-4.80 (K/ul) Final Monos, Abs 01/21/2024 12:27:14 0.55 0.00-1.10 (K/uL) Final Eos, Abs 01/21/2024 12:27:14 0.08 0.00-0.70 (K/uL) Final Basos, Abs 01/21/2024 12:27:14 0.09 0.00-0.20 (K/uL) Final Performing Location [facility] [place] [address]
--- OUTSIDE RECORDS SUMMARY | 2024-05-12 21:50 | External Medical Summary ---
Author Name Unknown Address Unknown Organization K09:[facility] [place] [address] Laboratory Report Ordering Provider Test Date Status CASE WHITLOCK 01/11/2024 10:09:56 Final Observation Date Value Abnormality Reference (Units ) Status WBC, Total 01/11/2024 10:09:56 4.52 4.00-10.8 0 (K/uL) Final RBC 01/11/2024 10:09:56 4.04 3.85-5.15 (M/uL) Final Hemoglobin 01/11/2024 10:09:56 11.8 Below low normal 12 .0-15.3 (g/dL) Final HCT 01/11/2024 10:09:56 38.4 36.0-45.2 (%) Final MCV 01/11/2024 10:09:56 95.0 81.5-97.5 (fL) Final MCH 01/11/2024 10:09:56 29.2 27.0-34.0 (pg) Final MCHC 01/11/2024 10:09:56 30.7 32.0-36.0 (g/dL) Final RDW 01/11/2024 10:09:56 16.3 11.5-15.5 (%) Final Platelets 01/11/2024 10:09:56 114 Below low normal 140 -400 (K/uL) Final MPV 01/11/2024 10:09:56 9.8 6.6-11.1 ( fL) Final Performing Location [facility] [place] [address]
--- OUTSIDE RECORDS SUMMARY | 2024-05-12 21:50 | External Medical Summary ---
Author Name Unknown Address Unknown Organization K09:[facility] [place] [address] Laboratory Report Ordering Provider Test Date Status DONOVAN LIN 01/11/2024 10:09:56 Final Observation Date Value Abnormality Reference (Units ) Status Phosphate 01/11/2024 10:09:56 4.5 2.5-4.8 (m g/dL) Final Performing Location [facility] [place] [address]
--- OUTSIDE RECORDS SUMMARY | 2024-05-12 21:50 | External Medical Summary ---
Author Name Unknown Address Unknown Organization K01:[facility] - [address] [facility] [address] Laboratory Report Ordering Provider Test Date Status DONOVAN LIN 01/11/2024 10:14:10 Final Observation Date Value Abnormality Reference (Units ) Status Osmolality, Urine 01/11/2024 10:14:10 606 50 -1200 (mOsm/kg) Final Performing Location [facility] - [address] [facility] [address]
--- OUTSIDE RECORDS SUMMARY | 2024-05-12 21:50 | External Medical Summary ---
Author Name Unknown Address Unknown Organization K09:[facility] [place] [address] Laboratory Report Ordering Provider Test Date Status CASE WHITLOCK 01/21/2024 12:27:14 Final Observation Date Value Abnormality Reference (Units ) Status Bilirubin, Direct 01/21/2024 12:27:14 0.7 Above high normal 0.0-0.3 (mg/dL) Final Performing Location [facility] [address]
--- OUTSIDE RECORDS SUMMARY | 2024-05-12 21:50 | External Medical Summary | Summary of Care ---
Author Name Unknown Organization [facility] Address [address] [place] [address] Phone [phone] Care Team Providers Care Drying Oven Attendant Name Role Phone Unavailable Primary Care Provider Unavailabl e Reason for Visit * Reason Onset Date Comments Test Results 01/27/2024 Unexpected or In determinate Result Encounter Details Date Type Department Care Team (Late st Contact Info) Description 01/27/2024 Telephone General Internal Medicine [facility] 200 [facility] [place] [address] Maxwell Sellers MD [address] [place] [address] Test Results (Unexpected or Indeterminate ... 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 Henriquez [facility] [place] asymptomatic en plaque cavernous sinus meningioma [...] well after 03/29 surgical repair LOC PRIM [id number] 05/09/2003 1010/2016 Esotropia 01/13/2003 02/10/2017 Overview: 11/24- [...] encounter Miscellaneous Notes * Telephone Encounter - Sage Clifton RN [...] unexpected or indeterminate finding on Nereida Stephen ([id number]) and asks that you review the following [...] reviewed. Thank you, ROSIBEL Kim Client Service Rep [facility] documented in this encounter Plan of Treatment Upcoming Encounters Date Type Department Care Team (Late st Contact Info) Description 02/02/2024 9:20 AM EDT Office Visit General Internal Medicine [address] [place] [address] Leyda Ahn MD [address] [place] [address] [facility] [place] [address] 03/02/2024 10:00 AM EDT Office Visit Cardiology, [facility] [address] [place] [address] Rajesh Jordan MD [address] [place] [address] 04/05/2024 8:20 AM EST Office Visit General Internal Medicine [facility] 200 [facility] [place] [address] Leyda Ahn MD [address] [place] [address] [place] [address] Scheduled Procedures Name Priority Associated Diagnoses Date/Ti [...] encounter Medical Devices Implanted Type Area Building Tech Device Identifier Shelf Expiration Date Model / Serial / Lot Valve Ce Aortic 21mm 3000tfx - [id number] Implanted:Qty : 1 on 04/17/2010 at OR [facility] Tissue - Non Human N/A: Chest [employer] ELISABETH 04/17/2010 3000TFX-2 [id number] / Patch Pericard 8x14cm [id number] - [id number] Implanted:Qty : 1 on 04/17/2010 at OR [facility] Tissue - Non Human N/A: Chest [employer] 12/05/2014 PC-0814N / / [id number] Sut Steel 6 M654g - [id number] Implanted:Qty : 4 on 04/17/2010 at OR [facility] N/A: Chest DO NOT USE 06/17/2014 M654G / / [id number] documented as of this encounter Advance Directives Documents on File Type Date Recorded Patient Space Systems Operations Craftsman Expl 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
--- OUTSIDE RECORDS SUMMARY | 2024-05-12 21:50 | External Medical Summary ---
Author Name Unknown Address Unknown Organization K09[facility] [place] [address] Laboratory Report Ordering Provider Test Date Status CASE WHITLOCK 01/21/2024 12:27:14 Final Observation Date Value Abnormality Reference (Units ) Status WBC, Total 01/21/2024 12:27:14 4.99 4.00-10.8 0 (K/uL) Final RBC 01/21/2024 12:27:14 4.04 3.85-5.15 (M/uL) Final Hemoglobin 01/21/2024 12:27:14 11.5 Below low normal 12 .0-15.3 (g/dL) Final HCT 01/21/2024 12:27:14 38.3 36.0-45.2 (%) Final MCV 01/21/2024 12:27:14 94.8 81.5-97.5 (fL) Final MCH 01/21/2024 12:27:14 28.5 27.0-34.0 (pg) Final MCHC 01/21/2024 12:27:14 30.0 32.0-36.0 (g/dL) Final RDW 01/21/2024 12:27:14 16.4 11.5-15.5 (%) Final Platelets 01/21/2024 12:27:14 126 Below low normal 140 -400 (K/uL) Final MPV 01/21/2024 12:27:14 10.2 6.6-11.1 ( fL) Final Performing Location [facility] [place] [address]
--- OUTSIDE RECORDS SUMMARY | 2024-05-12 21:50 | External Medical Summary | Summary of Care ---
Author Name Unknown Organization [facility] Address [address] [place] [address] Phone [phone] Care Team Providers Care Office Admin Name Role Phone Unavailable Primary Care Provider Unavailabl e Reason for Visit * Reason Onset Date Comments Medication Refill 01/26/2024 Encounter Details Date Type Department Care Team (Late st Contact Info) Description 01/26/2024 Refill Gastroenterology, [facility] [address] [place] [address] Pastora Arzate CRNP [address] [place] [address] Paroxysmal atrial fibrillation (HCC) Allergies Active Allergy Reactions Criticality Noted Date Comments Pantoprazole 01/29/2022 Itchiness, rash Penicillins Hives 01/13/2003 hives documented as of this encounter (statuses as of 01/26/2024) Medications Medication Sig Dispensed Refills Start Date [...] inj 1,000 mcgIndications:B12 deficiency 1000 mcg IM [id number] 04/19/2023 03/19/2024 Active documented as of this encounter (statuses as of 01/26/2024) Active Problems Problem Noted Date Diagnosed Date [...] as of this encounter (statuses as of 01/26/2024) Resolved Problems Problem Noted Date Diagnosed Date Resolved Date Permanent atrial fibrillation 03/28/2019 10/28/2021 Chronic systolic CHF (conges tive heart failure) 03/28/2019 01/03/2021 CHF with right heart failure 03/21/2019 03/12/2022 Atherosclerosis of aorta 11/16/2018 Carpal tunnel syndrome 03/28/201302/10 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 Henriquez [facility] [place] asymptomatic en plaque cavernous [...] well after 03/29 surgical repair LOC PRIM [id number] 05/09/2003 1010/2016 Esotropia 01/13/2003 02/10/2017 Overview: 11/24- R sixth nerve palsy- improving MRI/MRA negative Alopecia 01/13/2003 02/10/2017 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/2002 09/20/2018 Overview: not bx proven DIVERTICULOSIS OF COLON 06/16/200202/22 Menopause 06/16/2002 10/23/2021 Abnormal weight gain 06/16/2002 017 Other ulcerative colitis with rectal bleeding 03/12/2022 documented as of this encounter (statuses as of 01/26/2024) Immunizations Name Administration Dates Next Due COVID-19 [...] encounter Miscellaneous Notes * Telephone Encounter - Keara Ibanez LPN - 01/26/2024 3:49 PM EDTRefused Prescriptions: Disp Refills Metoprolol Succinate ER 25 MG Oral Tablet *45 Tab*3 Sig: Take 0.5 Tablets by mouth daily.Refused By: Brianna IBANEZ for Refusal: Managed by another physician-- documented in this encounter Plan of Treatment Upcoming Encounters Date Type Department Care Team (Late st Contact Info) Description 01/27/2024 12:20 PM EDT Office Visit General Internal Medicine [facility] [address] [place] [address] Leyda Ahn MD [address] [place] [address] 03/02/2024 10:00 AM EDT Office Visit Cardiology, [facility] [address] [place] [address] Rajesh Jordan MD [address] [place] [address] 04/05/2024 8:20 AM EST Office Visit General Internal Medicine [facility] [place] 200 [facility] [place] [address] Leyda Ahn MD 200 [facility] [place] [address] Scheduled Procedures Name Priority Associated Diagnoses Date/Ti [...] this encounter Medical Devices Implanted Type Area Small Products I Assembler Device Identifier Shelf Expiration Date Model / Serial / Lot Valve Ce Aortic 21mm 3000tfx - [id number] Implanted:Qty : 1 on 04/17/2010 at [place] [facility] Tissue - Non Human N/A: Chest [employer] ELISABETH 04/17/2010 3000TFX-2 / [id number] / Patch Pericard 8x14cm [id number] - [id number] Implanted:Qty : 1 on 04/17/2010 at OR [facility] Tissue - Non Human N/A: Chest [employer] 12/05/2014 -0814N / / [id number] Sut Steel 6 M654g - [id number] Implanted:Qty : 4 on 04/17/2010 at OR [facility] N/A: Chest DO NOT USE 06/17/2014 M654G / / [id number] documented as of this encounter Visit Diagnoses Diagnosis Paroxysmal atrial fibrillation (HCC) Atrial fibrillation documented in this encounter Advance Directives Documents on File Type Date Recorded Patient Agility Instructor Expl 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
--- OUTSIDE RECORDS SUMMARY | 2024-05-12 21:50 | External Medical Summary ---
Author Name Unknown Address Unknown Organization K09:[facility] [address] [place] [address] Laboratory Report Ordering Provider Test Date Status NADIR CHACON III 01/21/2024 12:27:14 Final Observation Date Value Abnormality Reference (Units ) Status BUN 01/21/2024 12:27:14 43 Above high normal 6-20 (mg/dL) Final Creatinine 01/21/2024 12:27:14 0.9 0.5-1.0 (mg/dL) Final Glomerular filtration rate/1.73 sq M.predicted [Volume Rate/Area] in Serum, Plasma or Blood by Creatinine-based formula (CKD-EPI) 01/21/2024 12:27:14 60 >=60 (mL/min) Final eGFR is calculated based on the CKD-EPI 2020 equation. Sodium 01/21/2024 12:27:14 138 135-146 (m mol/L) Final Potassium 01/21/2024 12:27:14 4.1 3.5-5.1 (m mol/L) Final Cl 01/21/2024 12:27:14 99 98-107 (mm ol/L) Final CO2 01/21/2024 12:27:14 25 22-32 (mmo l/L) Final Anion gap 01/21/2024 12:27:14 14 7-15 (mmol /L) Final Glucose 01/21/2024 12:27:14 92 70-120 (mg /dL) Final Albumin 01/21/2024 12:27:14 4.4 3.8-5.0 (g /dL) Final AST (Aspartate aminotransferase) 01/21/2024 12:27:14 53 Above high normal 10-35 (U/L) Final Alk Phos 01/21/2024 12:27:14 121 35-130 (U/ L) Final Bilirubin, Total 01/21/2024 12:27:14 2.2 Above high no rmal <=1.2 (mg/dL) Final Calcium 01/21/2024 12:27:14 9.3 8.4-10.2 ( mg/dL) Final Protein 01/21/2024 12:27:14 7.6 6.0-8.3 (g /dL) Final ALT (Alanine aminotransferase) 01/21/2024 12:27:14 24 10-35 (U/L) Tommie rosales Performing Location [facility] [address] [place] [address]
--- OUTSIDE RECORDS SUMMARY | 2024-05-12 21:50 | External Medical Summary ---
Author Name Unknown Address Unknown Organization K01:[facility] [place] [place] - [address] [facility] [place]. [facility] [address] Laboratory Report Ordering Provider Test Date Status NADIR CHACON III 01/21/2024 12:27:14 Final Observation Date Value Abnormality Reference (Units ) Status Ferritin 01/21/2024 12:27:14 30 13-150 (ng /mL) Final Postmenopausal women have hi gher ferritin levels than pre-menopausal women. The above reference interval is based on pre-menopausal women. Performing Location [facility] - [address] [facility] [address]
--- OUTSIDE RECORDS SUMMARY | 2024-05-12 21:50 | External Medical Summary | Summary of Care ---
Author Name Unknown Organization [facility] Address [address] [place] [address] Phone [phone] Care Team Providers Care Retail Business Manager Name Role Phone Unavailable Primary Care Provider Unavailabl e Reason for Visit * Reason Onset Date Comments Test Results 01/27/2024 Unexpected or In determinate Result Encounter Details Date Type Department Care Team (Late st Contact Info) Description 01/27/2024 Telephone General Internal Medicine [facility] 200 [place] [address] Maxwell Sellers MD [address] [place] [address] Test Results (Unexpected or Indeterminate ... Allergies Active Allergy Reactions Criticality Noted Date Comments Pantoprazole 01/29/2022 Itchiness, rash Penicillins Hives 01/13/2003 hives documented as of this encounter (statuses as of 01/29/2024) Medications Medication Sig Dispensed Refills Start Date [...] inj 1,000 mcgIndications:B12 deficiency 1000 mcg IM [id number] 04/19/2023 03/19/2024 Active documented as of this encounter (statuses as of 01/29/2024) Active Problems Problem Noted Date Diagnosed Date [...] as of this encounter (statuses as of 01/29/2024) Resolved Problems Problem Noted Date Diagnosed Date Resolved Date Permanent atrial fibrillation 03/28/2019 10/28/2021 Chronic systolic CHF (conges tive heart failure) 03/28/2019 01/03/2021 CHF with right heart failure 03/21/2019 03/12/2022 Atherosclerosis of aorta 11/16/2018 Carpal tunnel syndrome 03/28/201302/10 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 Henriquez [facility] [place] asymptomatic en plaque cavernous [...] well after 03/29 surgical repair LOC PRIM [id number] 05/09/2003 1010/2016 Esotropia 01/13/2003 02/10/2017 Overview: 11/24- R sixth nerve palsy- improving MRI/MRA negative Alopecia 01/13/2003 02/10/2017 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/2002 09/20/2018 Overview: not bx proven DIVERTICULOSIS OF COLON 06/16/200202/22 Menopause 06/16/2002 10/23/2021 Abnormal weight gain 06/16/2002 017 Other ulcerative colitis with rectal bleeding 03/12/2022 documented as of this encounter (statuses as of 01/29/2024) Immunizations Name Administration Dates Next Due COVID-19 [...] unexpected or indeterminate finding on Nereida Stephen ([id number]) and asks that you review the following [...] reviewed. Thank you, ROSIBEL Kim Client Service [facility] documented in this encounter Plan of Treatment Upcoming Encounters Date Type Department Care Team (Late st Contact Info) Description 02/02/2024 9:20 AM EDT Office Visit General Internal Medicine [facility] 200 [facility] [place] [address] Leyda Ahn MD 200 [facility] [place] [address] 03/02/2024 10:00 AM EDT Office Visit Cardiology, [facility] [address] [place] [address] Rajesh Jordan MD [address] [place] [address] 04/05/2024 8:20 AM EST Office Visit General Internal Medicine [facility] [address] [facility] [place] [address] Leyda Ahn MD [address] [facility] [place] [address] Scheduled Procedures Name Priority Associated Diagnoses Date/Ti me COLONOSCOPY FLEXIBLE PROXIMA L DIAGNOSTIC Recall IBD (inflammatory bowel disease) Health Maintenance Due Date Last Done Comments DXA Scan 08/10/2023 08/09/2020, 07/23, 11/07/2009, Additional history exists Zoster Vaccines (3 of 3) 11/24/2023 024, 09/14/2014, 09/14/2014 Colonoscopy 12/26/2023 12/25/2021, 08/0 07/2021, 09/24/2018, Additional history exists Influenza Vaccine (FLU [...] this encounter Medical Devices Implanted Type Area Meat Service Team Member Device Identifier Shelf Expiration Date Model / Serial / Lot Valve Ce Aortic 21mm 3000tfx - [id number] Implanted:Qty : 1 on 04/17/2010 at OR [facility] Tissue - Non Human N/A: Chest FRY LIFESC[employer] ELISABETH 04/17/2010 3000TFX-2 [id number] / Patch Pericard 8x14cm [id number] - [id number] Implanted:Qty : 1 on 04/17/2010 at OR [facility] Tissue - Non Human N/A: Chest [employer] 12/05/2014 PC-0814N / / [id number] Sut Steel 6 M654g - [id number] Implanted:Qty : 4 on 04/17/2010 at OR [facility] N/A: Chest DO NOT USE 06/17/2014 M654G / / [id number] documented as of this encounter Advance Directives Documents on File Type Date Recorded Patient 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
--- OUTSIDE RECORDS SUMMARY | 2024-05-12 21:50 | External Medical Summary | Summary of Care ---
Author Name Unknown Organization [facility] Address [address] [place] [address] Phone [phone] Care Team Providers Care Supervisor Nutritional Yeast Name Role Phone Leyda Ahn MD Primary Care Provider [phone] Reason for Visit * Reason Comments Outpatient Testing Encounter Details Date Type Department Care Team (Late st Contact Info) Description 01/11/2024 10:00 AM EDT Laboratory Laboratory [facility] [address] [place] [id number] [place], Lab Scenery [address] [place] [address] Hyponatremia; Decreased platelet count (HCC); Venous insufficiency Allergies Active Allergy Reactions Criticality Noted Date Comments Pantoprazole 01/29/2022 Itchiness, rash Penicillins Hives 01/13/2003 hives documented as of this encounter (statuses as of 01/11/2024) Medications Medication Sig Dispensed Refills Start Date [...] inj 1,000 mcgIndications:B12 deficiency 1000 mcg IM [id number] 04/19/2023 03/19/2024 Active documented as of this encounter (statuses as of 01/11/2024) Active Problems Problem Noted Date Diagnosed Date [...] as of this encounter (statuses as of 01/11/2024) Resolved Problems Problem Noted Date Diagnosed Date Resolved Date Permanent atrial fibrillation 03/28/2019 10/28/2021 Chronic systolic CHF (conges tive heart failure) 03/28/2019 01/03/2021 CHF with right heart failure 03/21/2019 03/12/2022 Atherosclerosis of aorta 11/16/2018 Carpal tunnel syndrome 03/28/201302/10 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 09/20/2018 Overview: not bx proven DIVERTICULOSIS OF COLON 06/16/200202/22 Menopause 06/16/2002 10/23/2021 Abnormal weight gain 06/16/2002 017 Other ulcerative colitis with rectal bleeding 03/12/2022 documented as of this encounter (statuses as of 01/11/2024) Immunizations Name Administration Dates Next Due COVID-19 [...] Care Team (Late st Contact Info) Description 01/15/2024 9:30 AM EDT Office Visit Ophthalmology, [facility] [address] [place] [address] Jim Tran DO [address] [place] [address] 03/02/2024 10:00 AM EDT Office Visit Cardiology, [facility] [address] [place] [address] Rajesh Jordan MD [address] [place] [address] 04/05/2024 8:20 AM EST Office Visit General Internal Medicine [facility] [address] [place] [address] Leyda Ahn MD 200 [facility] [place] [address] Pending Results Name Type Priority Associated Diagnoses Date /Time COMPREHENSIVE METABOLIC PANEL Lab Routine Hyponatremia 01/11/2024 10:09 AM EDT OSMOLALITY, SERUM Lab Routine Hyponatremia 01/11/2024 10:09 AM EDT PHOSPHORUS Lab Routine Hyponatremia 01/11/2024 10:09 AM EDT OSMOLALITY, URINE Lab Routine Hyponatremia 01/11/2024 10:14 AM EDT SODIUM, RANDOM URINE Lab Routine Hyponatremia 01/11/2024 10:14 AM EDT Scheduled Procedures Name Priority Associated [...] 02/27/2021, Additional history exists COVID-19 Vaccine ( season) 2024 09/29/2023, 03/18/2022, 05/13/2021, Additional history exists Adult Wellness Visit 05/07/2024 05/07/2023 Depression Screening 05/15/2024 05/15/2023 TSH 05/15/2024 05/15/2023, [...] this encounter Medical Devices Implanted Type Area Scaler Device Identifier Shelf Expiration Date Model / Serial / Lot Valve Ce Aortic 21mm 3000tfx - [id number] Implanted:Qty : 1 on 04/17/2010 [place] [facility] [place] - Non Human N/A: Chest [employer] ELISABETH 04/17/2010 3000TFX-2 1 / [id number] / Patch Pericard 8x14cm [id number] - [id number] Implanted:Qty : 1 on 04/17/2010 [place] [facility] - Non Human N/A: Chest [employer] 12/05/2014 PC-0814N / / [id number] Sut Steel 6 M654g - [id number] Implanted:Qty : 4 on 04/17/2010 [place] [facility] N/A: Chest DO NOT USE 06/17/2014 [id number] / / [id number] documented as of this encounter Procedures Procedure Name Priority Date/Time Associated Diagnosis Comments DIFFERENTIAL, AUTOMATED Routine 01/11/2024 10:09 AM EDT Decreased platelet count (HCC) CBC Routine 01/11/2024 10:09 AM EDT Decreased platelet count (HCC) CBC Routine 01/11/2024 10:09 AM EDT Decreased platelet count (HCC) documented in this encounter Results * (ABNORMAL) DIFFERENTIAL, AUTOMATED (01/11/2024 10:09 AM EDT) WBC 4.52 4.00 - 10.80 K/uL 01/11/2024 10:24 AM EDT LAB[facility]ORY [facility] 56-02 Neutrophils % 57.5 40.0 - 75.0 % 01/11/2024 10:24 AM EDT LABORATORY [facility] 56-02 Lymphocytes % 25.9 18.0 - 42.0 % 01/11/2024 10:24 AM EDT LAB[facility]ATORY [facility] 56-02 Monocytes % 12.6(H) 1.0 - 11.0 % 01/11/2024 10:24 AM EDT LAB[facility]ATORY [facility] 56-02 Eosinophils % 2.0 0.0 - 6.0 % 01/11/2024 10:24 AM EDT [facility] 56 Basophils % 2.0 0.0 - 2.0 % 01/11/2024 10:24 AM EDT [facility] 56 Absolute Neutrophils 2.60 1.80 - 7.70 K/uL 01/11/2024 10:24 AM EDT [facility] 56 Absolute Lymphocytes 1.17 1.00 - 4.80 K/ul 01/11/2024 10:24 AM EDT [facility] 56 Absolute Monocytes 0.57 0.00 - 1.10 K/uL 01/11/2024 10:24 AM EDT [facility] 56 Absolute Eosinophils 0.09 0.00 - 0.70 K/uL 01/11/2024 10:24 AM EDT [facility] 56 Absolute Basophils 0.09 0.00 - 0.20 K/uL 01/11/2024 10:24 AM EDT [facility] Blood Venous blood specimen / Unknown Venipuncture / Unknown 01/11/2024 10:09 AM EDT 01/11/2024 10:09 AM EDT Maxwell Sellers MD LAB BLOOD [facility] [address] [place] [address] * (ABNORMAL) CBC (01/11/2024 10:09 AM EDT) WBC 4.52 4.00 - 10.80 K/uL 01/11/2024 10:24 AM EDT [facility] RBC 4.04 3.85 - 5.15 M/uL 01/11/2024 10:24 AM EDT [facility] HGB 11.8(L) 12.0 - 15.3 g/dL 01/11/2024 10:24 AM EDT [facility] HCT 38.4 36.0 - 45.2 % 01/11/2024 10:24 AM EDT [facility] MCV 95.0 81.5 - 97.5 fL 01/11/2024 10:24 AM EDT [facility] 56 MCH 29.2 27.0 - 34.0 pg 01/11/2024 10:24 AM EDT [facility] 56 MCHC 30.7 32.0 - 36.0 g/dL 01/11/2024 10:24 AM EDT [facility] 56 RDW 16.3 11.5 - 15.5 % 01/11/2024 10:24 AM EDT [facility] 56 PLT 114(L) 140 - 400 K/uL 01/11/2024 10:24 AM EDT [facility] 56 MPV 9.8 6.6 - 11.1 fL 01/11/2024 10:24 AM EDT [facility] 56 Blood Venous blood specimen / Unknown Venipuncture / Unknown 01/11/2024 10:09 AM EDT 01/11/2024 10:09 AM EDT Maxwell Sellers MD LAB BLOOD [address] [facility] [address] [place] [address] documented in this encounter Visit Diagnoses Diagnosis Hyponatremia Hyposmolality and/or hyponatremia Decreased platelet count (HCC) Thrombocytopenia, unspecified Venous insufficiency Unspecified venous (peripheral) insufficiency documented in this encounter Advance Directives Documents on File Type Date Recorded 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 Care Teams Supervisor Nutritional Yeast Relationship Specialty Start Date End Date Leyda Ahn MD 200 [facility] [place] [address] PCP - General Internal Medicine 12/06/23 documented as of this encounter
--- OUTSIDE RECORDS SUMMARY | 2024-05-12 21:50 | External Medical Summary | Summary of Care ---
Author Name Unknown Organization [facility] Address [address] [place] [address] Phone [phone] Care Team Providers Care Clerk Travel Reservations Name Role Phone Unavailable Primary Care Provider Unavailabl e Reason for Visit * Reason Comments Outpatient Testing Encounter Details Date Type Department Care Team (Late st Contact Info) Description 01/21/2024 12:20 PM EDT Laboratory Laboratory [facility] [place] [address] [place] [address] [place], Lab Scenery [address] [facility] [place] [address] Abnormal LFTs; Decreased hemoglobin; Dizziness; Near syncope; Injury of head, initial encounter; Hypotension, unspecified hypotension type; Anemia, unspecified type; Other lack of coordination Allergies Active Allergy Reactions Criticality Noted Date Comments Pantoprazole 01/29/2022 Itchiness, rash Penicillins Hives 01/13/2003 hives documented as of this encounter (statuses as of 01/21/2024) Medications Medication Sig Dispensed Refills Start Date [...] inj 1,000 mcgIndications:B12 deficiency 1000 mcg IM [id number] 04/19/2023 03/19/2024 Active documented as of this encounter (statuses as of 01/21/2024) Active Problems Problem Noted Date Diagnosed Date [...] as of this encounter (statuses as of 01/21/2024) Resolved Problems Problem Noted Date Diagnosed Date Resolved Date Permanent atrial fibrillation 03/28/2019 10/28/2021 Chronic systolic CHF (conges tive heart failure) 03/28/2019 01/03/2021 CHF with right heart failure 03/21/2019 03/12/2022 Atherosclerosis of aorta 11/16/2018 Carpal tunnel syndrome 03/28/201302/10 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 [employer] Other*[id number] 04/08/2010 07/01/2016 Overview: Study Titile: Genomics Markers for Patients with Cardiovascular Disease Project # [id number] PI: Aleisha Loredo MD Please call [phone] with study related questions AORTIC VALVE STENOSIS [...] well after 03/29 surgical repair LOC PRIM [id number] 05/09/2003 1010/2016 Esotropia 01/13/2003 02/10/2017 Overview: 11/24- R sixth nerve palsy- improving MRI/MRA negative Alopecia 01/13/2003 02/10/2017 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/2002 09/20/2018 Overview: not bx proven DIVERTICULOSIS OF COLON 06/16/200202/22 Menopause 06/16/2002 10/23/2021 Abnormal weight gain 06/16/2002 017 Other ulcerative colitis with rectal bleeding 03/12/2022 documented as of this encounter (statuses as of 01/21/2024) Immunizations Name Administration Dates Next Due COVID-19 [...] Team (Late st Contact Info) Description 01/21/2024 5:00 PM EDT Imaging Radiology [facility] [address] [facility] [place] [address] 01/26/2024 12:45 PM EDT Imaging Radiology [facility] [address] [facility] [place] [address] 03/02/2024 10:00 AM EDT Office Visit Cardiology, [facility] [address] [facility] [place] [address] Rajesh Jordan MD 132 [facility] [place] [address] 04/05/2024 8:20 AM EST Office Visit General Internal Medicine [facility] [address] [place] [address] Leyda Ahn MD [address] [place] [address] Pending Results Name Type Priority Associated Diagnoses Date /Time CBC WITH WBC DIFFERENTIAL Lab Routine Decreased hemoglobin 01/21/2024 12:27 PM EDT COMPREHENSIVE METABOLIC PANEL Lab Routine Dizziness Near syncope Injury of head, initial encounter Hypotension, unspecified hypotension type Anemia, unspecified type 01/21/2024 12:27 PM EDT TSH WITH FREE T4 IF INDICATED Lab Routine Dizziness Near syncope Injury of head, initial encounter Other lack of coordination Hypotension, unspecified hypotension type Anemia, unspecified type 01/21/2024 12:27 PM EDT FERRITIN Lab Routine Dizziness Near syncope Injury of head, initial encounter Hypotension, unspecified hypotension type Anemia, unspecified type 01/21/2024 12:27 PM EDT IRON SCREEN, INCLUDING TIBC Lab Routine Dizziness Near syncope Injury of head, initial encounter Hypotension, unspecified hypotension type Anemia, unspecified type 01/21/2024 12:27 PM EDT VITAMIN B12 Lab Routine Dizziness Near syncope Other lack of coordination Hypotension, unspecified hypotension type Anemia, unspecified type 01/21/2024 12:27 PM EDT CBC Lab Routine Decreased hemoglobin 01/21/2024 12:27 PM EDT DIFFERENTIAL, AUTOMATED Lab Routine Decreased hemoglobin 01/21/2024 12:27 PM EDT BILIRUBIN, DIRECT Lab Routine Abnormal LFTs 01/21/2024 12:27 PM EDT Scheduled Procedures Name Priority Associated Diagnoses [...] IN PAST YEAR FOR COPD 01/20/2025 01/21/2024 DTap/Tdap Vaccines (3 - Td or Tdap) [...] this encounter Medical Devices Implanted Type Area Tractor Distributor Device Identifier Shelf Expiration Date Model / Serial / Lot Valve Ce Aortic 21mm 3000tfx - [id number] Implanted:Qty : 1 on 04/17/2010 at OR [place] Tissue - Non Human N/A: Chest [employer] ELISABETH 04/17/2010 3000TFX-2 [id number] / Patch Pericard 8x14cm [id number] - [id number] Implanted:Qty : 1 on 04/17/2010 at OR [place] Tissue - Non Human N/A: Chest [employer] 12/05/2014 -0814N / / [id number] Sut Steel 6 M654g - [id number] Implanted:Qty : 4 on 04/17/2010 at OR [place] N/A: Chest DO NOT USE 06/17/2014 M654G / / [id number] documented as of this encounter Visit Diagnoses Diagnosis Abnormal LFTs Other abnormal blood chemistry Decreased hemoglobin Anemia, unspecified Dizziness Dizziness and giddiness Near syncope Syncope and collapse Injury of head, initial encounter Hypotension, unspecified hypotension type Anemia, unspecified type Other lack of coordination documented in this encounter Advance Directives Documents on File Type Date Recorded Patient Medication Nurse Expl 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
--- OUTSIDE RECORDS SUMMARY | 2024-05-12 21:50 | External Medical Summary ---
Author Name Unknown Address Unknown Organization [id number]:[facility] [address] [facility] [address] Laboratory Report Ordering Provider Test Date Status NADIR CHACON III 01/21/2024 12:27:14 Final Observation Date Value Abnormality Reference (Units ) Status TSH 01/21/2024 12:27:14 0.36 0.27-4.20 (uIU/mL) Final Performing Location [facility] [facility] [address] [facility] [address]
--- OUTSIDE RECORDS SUMMARY | 2024-05-12 21:50 | External Medical Summary | Summary of Care ---
Author Name Unknown Organization [facility] Address [address] [place] [address] Phone [phone] Care Team Providers Care Pilot Plant Supervisor Name Role Phone Unavailable Primary Care Provider Unavailabl e Reason for Visit * Reason Onset Date Comments Test Results 01/27/2024 Unexpected or In determinate Result Encounter Details Date Type Department Care Team (Late st Contact Info) Description 01/27/2024 Telephone General Internal Medicine [facility] [address] [place] [address] Maxwell Sellers MD [address] [place] [address] Test Results (Unexpected or Indeterminate ... Allergies Active Allergy Reactions Criticality Noted Date Comments Pantoprazole 01/29/2022 Itchiness, rash Penicillins Hives 01/13/2003 hives documented as of this encounter (statuses as of 01/27/2024) Medications Medication Sig Dispensed Refills Start Date [...] inj 1,000 mcgIndications:B12 deficiency 1000 mcg IM [id number] 04/19/2023 03/19/2024 Active documented as of this encounter (statuses as of 01/27/2024) Active Problems Problem Noted Date Diagnosed Date [...] as of this encounter (statuses as of 01/27/2024) Resolved Problems Problem Noted Date Diagnosed Date Resolved Date Permanent atrial fibrillation 03/28/2019 10/28/2021 Chronic systolic CHF (conges tive heart failure) 03/28/2019 01/03/2021 CHF with right heart failure 03/21/2019 03/12/2022 Atherosclerosis of aorta 11/16/2018 Carpal tunnel syndrome 03/28/201302/10 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 [employer] Other*[id number] 04/08/2010 07/01/2016 Overview: Study Titile: [employer] Markers for Patients with Cardiovascular Disease Project # [id number] PI: Aleisha Loredo MD Please call [phone] with study related questions AORTIC VALVE STENOSIS [...] well after 03/29 surgical repair LOC PRIM [id number] 05/09/200310/2016 Esotropia 01/13/2003 02/10/2017 Overview: 11/24- R sixth nerve palsy- improving MRI/MRA negative Alopecia 01/13/2003 02/10/2017 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/2002 09/20/2018 Overview: not bx proven DIVERTICULOSIS OF COLON 06/16/200202/22 Menopause 06/16/2002 10/23/2021 Abnormal weight gain 06/16/2002 017 Other ulcerative colitis with rectal bleeding 03/12/2022 documented as of this encounter (statuses as of 01/27/2024) Immunizations Name Administration Dates Next Due COVID-19 [...] encounter Miscellaneous Notes * Telephone Encounter - Ruth Negron OSA - 01/27/2024 10:56 AM EDT Hello- The radiologist discovered an unexpected or indeterminate finding on Nereida Stephen ([id number]) and asks that you review the following [...] Thank you, ROSIBEL Kim Client Service Rep [facility] documented in this encounter Plan of Treatment Upcoming Encounters Date Type Department Care Team (Late st Contact Info) Description 02/02/2024 9:20 AM EDT Office Visit General Internal Medicine [facility] [address] [place] [address] Leyda Ahn MD [address] [facility] [place] [address] 03/02/2024 10:00 AM EDT Office Visit Cardiology, [facility] [address] [place] [address] Rajesh Jordan MD [address] [place] [address] 04/05/2024 8:20 AM EST Office Visit General Internal Medicine [address] [place] [place] 200 [facility] [place] [address] Leyda Ahn MD 200 [facility] [place] [address] Scheduled Procedures Name Priority Associated Diagnoses Date/Ti [...] FOR COPD 01/20/2025 01/21/2024 TSH 01/20/2025 01/21/2024, 12/06/2022, 02/16/2023, Additional history exists DTap/Tdap Vaccines (3 [...] this encounter Medical Devices Implanted Type Area Senior Integration Developer Device Identifier Shelf Expiration Date Model / Serial / Lot Valve Ce Aortic 21mm 3000tfx - [id number] Implanted:Qty : 1 on 04/17/2010 at [place] [facility] [place] Tissue - Non Human N/A: Chest [employer] ELISABETH 04/17/2010 3000TFX-2 / [id number] / Patch Pericard 8x14cm [id number] - [id number] Implanted:Qty : 1 on 04/17/2010 at OR [facility] [place] Tissue - Non Human N/A: Chest [employer] 12/05/2014 PC-0814N / / [id number] Sut Steel 6 M654g - [id number] Implanted:Qty : 4 on 04/17/2010 at OR [facility] [place] N/A: Chest DO NOT USE 06/17/2014 M654G / / [id number] documented as of this encounter Advance Directives Documents on File Type Date Recorded Patient Vascular Technician Expl 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
--- OUTSIDE RECORDS SUMMARY | 2024-05-12 21:50 | External Medical Summary ---
Author Name Unknown Address Unknown Organization [id number]:[facility] [place] [address] Laboratory Report Ordering Provider Test Date Status CASE WHITLOCK 01/11/2024 10:09:56 Final Observation Date Value Abnormality Reference (Units ) Status SYNC LEUKOCYTES IN BLOOD BY AUTOMATED COUNT 01/11/2024 10:09:56 4.52 4.00-10.80 (K/uL) Final Segs 01/11/2024 10:09:56 57.5 40.0-75.0 (%) Final Lymphs % 01/11/2024 10:09:56 25.9 18.0-42.0 (%) Final Monos 01/11/2024 10:09:56 12.6 Above high normal 1.0-11.0 (%) Final Eosinophils 01/11/2024 10:09:56 2.0 0.0-6.0 (%) Final Basos 01/11/2024 10:09:56 2.0 0.0-2.0 (%) Final Absolute Segs 01/11/2024 10:09:56 2.60 1.80-7.70 (K/uL) Final Lymphs, absolute 01/11/2024 10:09:56 1.17 1.00-4.80 (K/ul) Final Monos, Abs 01/11/2024 10:09:56 0.57 0.00-1.10 (K/uL) Final Eos, Abs 01/11/2024 10:09:56 0.09 0.00-0.70 (K/uL) Final Basos, Abs 01/11/2024 10:09:56 0.09 0.00-0.20 (K/uL) Final Performing Location [facility] [address] [place] [address]
--- OUTSIDE RECORDS SUMMARY | 2024-05-12 21:50 | External Medical Summary | Summary of Care ---
Author Name Unknown Organization [facility] Address [address] [place] [address] Phone [phone] Care Team Providers Care Cutting Table Operator Name Role Phone Unavailable Primary Care Provider Unavailabl e Reason for Visit * Reason Onset Date Comments Test Results Lab 01/22/2024 Encounter Details Date Type Department Care Team (Late st Contact Info) Description 01/22/2024 Telephone Family Practice 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 Henriquez [facility] N/S asymptomatic en plaque [...] well after 03/29 surgical repair LOC PRIM [id number] 05/09/2003 10/0 10/2016 Esotropia 01/13/2003 02/10/2017 Overview: [...] Encounter - Heaven Mckoy CMA - 01/22/2024 10:34 AM EDT Spoke with patient's daughter and advised regarding message below. She verbalized understanding andwill have Nereida start taking an OTC iron supplement. * Telephone Encounter - Heaven Mckoy CMA - 01/22/2024 10:34 AM EDT ----- Message from Akil Graves MD sent at 01/22/2024 10:12 AM EDT ----- Call please appears to be iron deficient would start iron B12 normal TSH normal comprehensive panelAST a little elevated but has been that way in the past would begin iron if amenable documented in this encounter Plan of Treatment Upcoming Encounters Date Type Department Care Team (Late st Contact Info) Description 01/26/2024 12:45 PM EDT Imaging Radiology [facility] [address] [place] [id number] 01/27/2024 12:20 PM EDT Office Visit General Internal Medicine [facility] [place] [address] [place] [address] Leyda Ahn MD [address] [place] [address] 03/02/2024 10:00 AM EDT Office Visit Cardiology, [facility] [address] [place] [address] Rajesh Jordan MD [address] [place] [address] 04/05/2024 8:20 AM EST Office Visit General Internal Medicine [facility] [address] [facility] [place] [address] Leyda Ahn MD [address] [facility] [place] [address] Scheduled Procedures Name Priority Associated Diagnoses Date/Ti [...] this encounter Medical Devices Implanted Type Area Forest Practices Field Coordinator Device Identifier Shelf Expiration Date Model / Serial / Lot Valve Ce Aortic 21mm 3000tfx - [id number] Implanted:Qty : 1 on 04/17/2010 at [place] [facility] Tissue - Non Human N/A: Chest FRY [employer]ed[employer] ELISABETH 04/17/2010 3000TFX-2 [id number] / Patch Pericard 8x14cm [id number] - [id number] Implanted:Qty : 1 on 04/17/2010 at OR [facility] Tissue - Non Human N/A: Chest [employer] 12/05/2014 PC-0814N / / [id number] Sut Steel 6 M654g - [id number] Implanted:Qty : 4 on 04/17/2010 at OR [facility] N/A: Chest DO NOT USE 06/17/2014 [id number] / / [id number] documented as of this encounter Advance Directives Documents on File Type Date Recorded Patient Reforestation Worker Expl 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
--- OUTSIDE RECORDS SUMMARY | 2024-05-12 21:50 | External Medical Summary ---
Author Name Unknown Address Unknown Organization [id number]:[facility] [place] [address] [place] [address] Laboratory Report Ordering Provider Test Date Status DONOVAN LIN 01/11/2024 10:09:56 Final Observation Date Value Abnormality Reference (Units ) Status Osmolality 01/11/2024 10:09:56 304 278-305 ( mOsm/kg) Final Performing Location [facility] - [address] [place] [address]
--- OUTSIDE RECORDS SUMMARY | 2024-05-12 21:51 | External Medical Summary | Summary of Care ---
Author Name Unknown Organization [facility] Address [address] [facility] [place] [address] Phone [phone] Care Team Providers Care Patient Accounting Representative Name Role Phone Maxwell Sellers MD Primary Care Provider + Reason for Visit * Reason Onset Date Comments Test Results 11/27/2023 Encounter Details Date Type Department Care Team (Late st Contact Info) Description 11/27/2023 Telephone Cardiology, [facility] [address] [place] [address] Rajesh Jordan MD [address] [place] [address] Test Results Allergies Active Allergy Reactions Criticality Noted Date Comments Pantoprazole 01/29/2022 Itchiness, rash Penicillins Hives 01/13/2003 hives documented as of this encounter (statuses as of 11/27/2023) Medications Medication Sig Dispensed Refills Start Date [...] via nasal cannula. 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 180 Blister Dosing Unit 3 12/18/2022 Active Additional Information Patient not taking.Reported on 11/10/2023 Furosemide 20 MG Oral Tablet (Lasix) 1 tab by mouth 3 days/week until leg edema improves 30 Tablet 11 01/20/2023 Active Additional Information Patient taking differently: PRN, edema, 1 tab by mouth 3 days/week until leg edema improves, Reported on 05/15/2023 Metoprolol Succinate ER 25 MG Oral Tablet Extended Release 24 Hour (toPROL XL)Indications:Paro xysmal atrial fibrillation ([facility]) Take 0.5 Tablets by mouth daily. 45 [...] Additional Information Patient not taking.Reported on 11/16/2023 Comirnaty 30 MCG/0.3ML Intramuscular Suspension Prefilled Syringe (COVID-19 mRNA Vac-Bobbi(Telogis)) Inject into a large muscle as directed 0.3 mL 09/29/2023 Active Additional Information Patient not taking.Reported on 11/16/2023 Mesalamine 1.2 GM Oral Tablet Delayed Release (Lialda) TAKE 2 TABLETS BY MOUTH EVERY MORNING 180 Tablet 3 10/29/2023 Active Hospital, Clinic, or Other Facility Administered Medication Ordered Dose Route Frequency Start Date End Date Status albuterol sulfate (PROVENTIL) (2.5 MG/3ML) 0.083% inhalation solution 2.5 mgIndications:COPD, severity to be determined (HCC),Chondrosarcoma (HCC),Pulmonary hypertension (HCC) 2.5 mg NEBULIZER PRN 01/07/2019 Active vitamin b-12 (Cyanocobalamin) inj 1,000 mcgIndications:B12 deficiency 1000 mcg IM [id number] 04/19/2023 03/19/2024 Active documented as of this encounter (statuses as of 11/27/2023) Active Problems Problem Noted Date Diagnosed Date [...] as of this encounter (statuses as of 11/27/2023) Resolved Problems Problem Noted Date Diagnosed Date Resolved Date Permanent atrial fibrillation 03/28/2019 10/28/2021 Chronic systolic CHF (conges tive heart failure) 03/28/2019 01/03/2021 CHF with right heart failure 03/21/2019 03/12/2022 Atherosclerosis of aorta 11/16/2018 Carpal tunnel syndrome 03/28/201302/10 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 [employer] Other*[id number] 04/08/2010 07/01/2016 Overview: Study Titile: Gen[employer] Markers for Patients with Cardiovascular Disease Project # [id number] PI: Aleisha Loredo MD Please call [phone] with study related questions AORTIC VALVE STENOSIS [...] well after 03/29 surgical repair LOC PRIM [id number] 05/09/2003 10/10/2016 Esotropia 01/13/2003 02/10/2017 Overview: 7/03- R sixth nerve palsy- improving MRI/MRA negative Alopecia 01/13/2003 02/10/2017 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/2002 09/20/2018 Overview: not bx proven DIVERTICULOSIS OF COLON 06/16/200202/22 Menopause 06/16/2002 10/23/2021 Abnormal weight gain 06/16/2002 017 Other ulcerative colitis with rectal bleeding 03/12/2022 documented as of this encounter (statuses as of 11/27/2023) Immunizations Name Administration Dates Next Due COVID-19 mRNA, LNP-s, No Pre serve, 2-Dose Series (Moderna) 08/30/2020,07/25/2020 COVID-19, MRNA-LNP, 23-24, P F, 30 MCG/0.3 mL, 12 YRS AND ABOVE, IM (PFIZER[facility]) 09/29/2023 COVID-19, mRNA, LNP-s, PF, B ooster, [...] encounter Miscellaneous Notes * Telephone Encounter - Sari Joaquin CMA - 11/27/2023 9:56 AM EDT My g sent. * Telephone Encounter - Sari Joaquin CMA - 11/27/2023 9:55 AM EDT ----- Message from Rajesh Jordan MD sent at 11/25/2023 5:31 PM EDT ----- Event monitor demonstrates atrial flutter but with normal rates no too fast or too slow rhythms No indications for pacemaker at this time. Continue current medications as discussed documented in this encounter Plan of Treatment Upcoming Encounters Date Type Department Care Team (Late st Contact Info) Description 11/30/2023 12:00 PM EDT Office Visit General Internal Medicine [facility] [address] [facility] [place] [address] Maxwell Sellers MD [address] [facility] [place] [address] 03/02/2024 10:00 AM EDT Office Visit Cardiology, [facility] [address] [facility] [place] [address] Rajesh Jordan MD [address] [place] [address] 05/03/2024 9:00 AM EST Office Visit Neurology [facility] [address] [facility] [place] [address] Ellen Carias PA-C [address] [place] [address] Scheduled Procedures Name Priority Associated Diagnoses Date/Ti me COLONOSCOPY FLEXIBLE PROXIMA L DIAGNOSTIC Recall IBD (inflammatory bowel disease) Health Maintenance Due Date Last Done Comments DXA Scan 08/10/2023 08/09/2020, 07/23, 11/07/2009, Additional history exists Zoster Vaccines (3 of 3) 11/24/2023 052 024, 09/14/2014, 09/14/2014 Colonoscopy 12/26/2023 12/25/2021, 08/0 07/2021, 09/24/2018, Additional history exists Influenza Vaccine (FLU shot) (#1) 2024 02/16/2023, 02/19/2022, 02/27/2021, Additional history exists COVID-19 Vaccine ( season) 2024 09/29/2023, 03/18/2022, 05/13/2021, Additional history exists Depression Screening 05/15/2024 05/15/2023 TSH 05/15/2024 05/15/2023, 01/24, 10/02/2022, Additional history exists O2 ASSESSMENT COMPLETED IN PAST YEAR FOR COPD 11/09/2024 11/10/2023 DTaP,Tdap,and Td Vaccines (3 - Td or [...] this encounter Medical Devices Implanted Type Area Folder Tier Device Identifier Shelf Expiration Date Model / Serial / Lot Valve Ce Aortic 21mm 3000tfx - [id number] Implanted:Qty : 1 on 04/17/2010 at [place] [facility] Tissue - Non Human N/A: Chest FRY [employer] ELISABETH 04/17/2010 3000TFX-2 / [id number] / Patch Pericard 8x14cm [id number] - [id number] Implanted:Qty : 1 on 04/17/2010 at [place] [facility] Tissue - Non Human N/A: Chest [employer] 12/05/2014 PC-0814N / / [id number] Sut Steel 6 M654g - [id number] Implanted:Qty : 4 on 04/17/2010 at [place] [facility] N/A: Chest DO NOT USE 06/17/2014 M654G / / [id number] documented as of this encounter Advance Directives Documents on File Type Date Recorded Patient Cap Jewel Plate Assembler Expl 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 Care Teams Patient Accounting Representative Relationship Specialty Start Date End Date Maxwell Sellers MD [address] [facility] [place] [address] PCP - General Internal Medicine 01/03/21 documented as of this encounter
--- OUTSIDE RECORDS SUMMARY | 2024-05-12 21:51 | External Medical Summary | Summary of Care ---
Author Name Unknown Organization [facility] Address [address] [place] [address] Phone [phone] Care Team Providers Care Service Station Attendant Name Role Phone Maxwell Sellers MD Primary Care Provider + Reason for Visit * Reason Onset Date Comments Test Results 12/01/2023 Encounter Details Date Type Department Care Team (Late st Contact Info) Description 12/01/2023 Telephone General Internal Medicine [facility] [address] [place] [address] Maxwell Sellers MD [address] [place] [address] Test Results Allergies Active Allergy Reactions Criticality Noted Date Comments Pantoprazole 01/29/2022 Itchiness, rash Penicillins Hives 01/13/2003 hives documented as of this encounter (statuses as of 12/01/2023) Medications Medication Sig Dispensed Refills Start Date [...] via nasal cannula. 1 Each 10/09/2022 Active Furosemide 20 MG Oral Tablet (Lasix) [...] EVERY MORNING 180 Tablet 3 10/29/2023 Active Doxycycline Hyclate 100 MG Oral CapsuleIndications: Scratch Take 1 Capsule by mouth in the morning and 1 Capsule before bedtime. Do all this for 7 days. Take for 7 days. 14 Capsule 11/30/2023 Active Hospital, Clinic, or Other Facility Administered Medication Ordered Dose Route Frequency Start Date End Date Status albuterol sulfate (PROVENTIL) (2.5 MG/3ML) 0.083% inhalation solution 2.5 mgIndications:COPD, severity to be determined (HCC),Chondrosarcoma (HCC),Pulmonary hypertension (HCC) 2.5 mg NEBULIZER PRN 01/07/2019 Active vitamin b-12 (Cyanocobalamin) inj 1,000 mcgIndications:B12 deficiency 1000 mcg IM [id number] 04/19/2023 03/19/2024 Active documented as of this encounter (statuses as of 12/01/2023) Active Problems Problem Noted Date Diagnosed Date [...] as of this encounter (statuses as of 12/01/2023) Resolved Problems Problem Noted Date Diagnosed Date Resolved Date Permanent atrial fibrillation 03/28/2019 10/28/2021 Chronic systolic CHF (conges tive heart failure) 03/28/2019 01/03/2021 CHF with right heart failure 03/21/2019 03/12/2022 Atherosclerosis of aorta 11/16/2018 Carpal tunnel syndrome 03/28/201302/10 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 [...] well after 03/29 surgical repair LOC PRIM [id number] 05/09/2003 1010/2016 Esotropia 01/13/2003 02/10/2017 Overview: 11/24- R sixth nerve palsy- improving MRI/MRA negative Alopecia 01/13/2003 02/10/2017 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/2002 09/20/2018 Overview: not bx proven DIVERTICULOSIS OF COLON 06/16/200202/22 Menopause 06/16/2002 10/23/2021 Abnormal weight gain 06/16/2002 017 Other ulcerative colitis with rectal bleeding 03/12/2022 documented as of this encounter (statuses as of 12/01/2023) Immunizations Name Administration Dates Next Due COVID-19 mRNA, LNP-s, No Pre serve, 2-Dose Series (Moderna) 08/30/2020,07/25/2020 COVID-19, MRNA-LNP, 23-24, P F, 30 MCG/0.3 mL, 12 YRS AND ABOVE, IM (PFIZERComirnat) 09/29/2023 COVID-19, mRNA, LNP-s, PF, B ooster, [...] encounter Miscellaneous Notes * Telephone Encounter - Sallie Whaley MED ASSIST - 12/01/2023 9:15 AM EDT Patient's daughter aware and verbalized understanding * Telephone Encounter - Sallie Whaley MED ASSIST - 12/01/2023 9:13 AM EDT ----- Message from Maxwell Sellers MD sent at 12/01/2023 8:22 AM EDT ----- 1. Sodium a little low, make sure eating reguarly - recheck bmp 1 week to recheck 2. Potassium borderline high will recheck next labs 3. Platelets a little low, monitor for bleeding/bruising, will recheck next labs documented in this encounter Plan of Treatment Upcoming Encounters Date Type Department Care Team (Late st Contact Info) Description 03/02/2024 10:00 AM EDT Office Visit Cardiology, [facility] [address] [place] [address] Rajesh Jordan MD [address] [place] [address] 04/05/2024 8:20 AM EST Office Visit General Internal Medicine [facility] [address] [facility] [place] [address] Leyda Ahn MD [address] [facility] [place] [address] 05/03/2024 9:00 AM EST Office Visit Neurology [facility] [address] [facility] [place] [address] Ellen Carias PA-C [address] [place] [address] Scheduled Procedures Name Priority Associated Diagnoses Date/Ti [...] encounter Medical Devices Implanted Type Area Sales Representatives Device Identifier Shelf Expiration Date Model / Serial / Lot Valve Ce Aortic 21mm 3000tfx - [id number] Implanted:Qty : 1 [place]17[place] [facility] - Non Human N/A: Chest FRY [employer] ELISABETH 04/17/2010 3000TFX-2 [id number] / Patch Pericard 8x14cm [id number] - [id number] Implanted:Qty : 1 on 04/17/2010 [place] [facility] Tissue - Non Human N/A: Chest [employer] 12/05/2014 -0814N / / [id number] Sut Steel 6 M654g - [id number] Implanted:Qty : 4 on 04/17/2010 [place] [facility] N/A: Chest DO NOT USE 06/17/2014 M654G / / [id number] documented as of this encounter Advance Directives Documents on File Type Date Recorded Patient Decorating Inspector Expl 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 Care Teams Service Station Attendant Relationship Specialty Start Date End Date Maxwell Sellers MD [address] [place] [address] PCP - General Internal Medicine 01/03/21 documented as of this encounter
--- OUTSIDE RECORDS SUMMARY | 2024-05-12 21:51 | External Medical Summary ---
Author Name Unknown Address Unknown Organization K09:[facility] [place] [address] Laboratory Report Ordering Provider Test Date Status CASE WHITLOCK 11/30/2023 12:36:39 Final Observation Date Value Abnormality Reference (Units ) Status SYNC LEUKOCYTES IN BLOOD BY AUTOMATED COUNT 11/30/2023 12:36:39 5.62 4.00-10.80 (K/uL) Final Segs 11/30/2023 12:36:39 54.3 40.0-75.0 (%) Final Lymphs % 11/30/2023 12:36:39 31.7 18.0-42.0 (%) Final Monos 11/30/2023 12:36:39 11.4 Above high normal 1.0-11.0 (%) Final Eosinophils 11/30/2023 12:36:39 1.4 0.0-6.0 (%) Final Basos 11/30/2023 12:36:39 1.2 0.0-2.0 (%) Final Absolute Segs 11/30/2023 12:36:39 3.05 1.80-7.70 (K/uL) Final Lymphs, absolute 11/30/2023 12:36:39 1.78 1.00-4.80 (K/ul) Final Monos, Abs 11/30/2023 12:36:39 0.64 0.00-1.10 (K/uL) Final Eos, Abs 11/30/2023 12:36:39 0.08 0.00-0.70 (K/uL) Final Basos, Abs 11/30/2023 12:36:39 0.07 0.00-0.20 (K/uL) Final Performing Location [facility] [place] [address]
--- OUTSIDE RECORDS SUMMARY | 2024-05-12 21:51 | External Medical Summary ---
Author Name Unknown Address Unknown Organization K09:[facility] [place] [address] Laboratory Report Ordering Provider Test Date Status CASE WHITLOCK 12/07/2023 10:41:55 Final Observation Date Value Abnormality Reference (Units ) Status WBC, Total 12/07/2023 10:41:55 5.14 4.00-10.8 0 (K/uL) Final RBC 12/07/2023 10:41:55 4.01 3.85-5.15 (M/uL) Final Hemoglobin 12/07/2023 10:41:55 12.3 12.0-15.3 (g/dL) Final HCT 12/07/2023 10:41:55 37.6 36.0-45.2 (%) Final MCV 12/07/2023 10:41:55 93.8 81.5-97.5 (fL) Final MCH 12/07/2023 10:41:55 30.7 27.0-34.0 (pg) Final MCHC 12/07/2023 10:41:55 32.7 32.0-36.0 (g/dL) Final RDW 12/07/2023 10:41:55 17.8 11.5-15.5 (%) Final Platelets 12/07/2023 10:41:55 99 Below low normal 140 -400 (K/uL) Final MPV 12/07/2023 10:41:55 9.7 6.6-11.1 ( fL) Final Performing Location [facility] [place] [address]
--- OUTSIDE RECORDS SUMMARY | 2024-05-12 21:51 | External Medical Summary ---
Author Name Unknown Address Unknown Organization K09:[facility] [place] [address] Laboratory Report Ordering Provider Test Date Status CASE WHITLOCK 12/07/2023 10:41:55 Final Observation Date Value Abnormality Reference (Units ) Status Nucleated erythrocytes/100 leukocytes [Ratio] in Blood by Automated count 12/07/2023 10:41:55 Final Performing Location [facility] [place] [address]
--- OUTSIDE RECORDS SUMMARY | 2024-05-12 21:51 | External Medical Summary | Summary of Care ---
Author Name Unknown Organization [facility] Address [address] [place] [address] Phone [phone] Care Team Providers Care Material Engineer Name Role Phone Maxwell Sellers MD Primary Care Provider + Reason for Visit * Reason Comments Return Visit Patient has not been eating very much. Fatigued, dizzy when walking. She said that she has some wax in her ears. Not able to hear as well. Wants the wax out if there is some present.Lost some weight, very low blood pressure, slow heart rate, and low oxygen saturation. . Questions about prescriptions. Encounter Details Date Type Department Care Team (Latest Contact Info) Description 11/10/2023 3:40 PM EDT Office Visit General Internal Medicine [facility] [address] [place] [address] Leyda Ahn MD [address] [place] [address] Hypotension, unspecified hypotension type*; History of transcatheter aortic valve replacement (TAVR); Paroxysmal atrial fibrillation (HCC); Systolic heart failure, unspecified HF chronicity (HCC); Pulmonary hypertension (HCC); COPD, group B, by GOLD 2017 classification (HCC); Loss of weight; Dizziness; History of chondrosarcoma; Nocturnal hypoxemia; B12 deficiency; Cervical spondylosis; Crohn's disease of large intestine without complication (HCC); Atrial flutter, unspecified type (HCC) Allergies Active Allergy Reactions Criticality Noted Date Comments Pantoprazole 01/29/2022 Itchiness, rash Penicillins Hives 01/13/2003 hives documented as of this encounter (statuses as of 11/22/2023) Medications Medication Sig Dispensed Refills Start Date [...] other meds) 90 Tablet 2 4 Active Zoster Vac Recomb Adjuvanted 50 MCG/0.5ML Intramuscular Suspension Reconstituted (Shingrix)Indicat ions:Need for shingles vaccine Inject 0.5 mL into a large muscle now and repeat dose in 60 to 180 days 1 Each 1 4 Active Additional Information Patient not taking.Reported on 11/16/2023 Comirnaty 30 MCG/0.3ML Intramuscular Suspension Prefilled Syringe (COVID-19 mRNA Vac-Bobbi(Fulcrum SP Materials)) Inject into a large muscle as directed 0.3 mL 4 Active Additional Information Patient not taking.Reported on 11/16/2023 Mesalamine 1.2 GM Oral Tablet Delayed Release (Lialda) TAKE 2 TABLETS BY MOUTH EVERY MORNING 180 Tablet 3 4 Active Polyethylene Glycol 3350 17 GM/SCOOP Oral Powder Take 17 g by mouth as needed. 11/10/19 24 Discontinued(La dication List Clean Up) Entresto 24-26 MG Oral Tablet Take 1 Tablet by mouth in the morning and 1 Tablet before bedtime. 4 11/16/19 24 Discontinued Fluticasone Propionate 50 MCG/ACT Nasal Suspension (Flonase) Administer 2 Sprays into each nostril in the morning. 16 g 5 4 11/10/19 24 Discontinued(La dication List Clean Up) Hospital, Clinic, or Other Facility Administered Medication Ordered Dose Route Frequency Start Date End Date Status albuterol sulfate (PROVENTIL) (2.5 MG/3ML) 0.083% inhalation solution 2.5 mgIndications:COPD, severity to be determined (HCC),Chondrosarcoma (HCC),Pulmonary hypertension (HCC) 2.5 mg NEBULIZER PRN 01/07/2019 Active vitamin b-12 (Cyanocobalamin) inj 1,000 mcgIndications:B12 deficiency 1000 mcg IM [id number] 04/19/2023 03/19/2024 Active documented as of this encounter (statuses as of 11/22/2023) Active Problems Problem Noted Date Diagnosed Date [...] as of this encounter (statuses as of 11/22/2023) Resolved Problems Problem Noted Date Diagnosed Date Resolved Date Permanent atrial fibrillation 03/28/2019 10/28/2021 Chronic systolic CHF (conges tive heart failure) 03/28/2019 01/03/2021 CHF with right heart failure 03/21/2019 03/12/2022 Atherosclerosis of aorta 11/16/2018 Carpal tunnel syndrome 03/28/201302/10 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 Henriquez [facility] N/S asymptomatic en plaque cavernous [...] well after 03/29 surgical repair LOC PRIM [id number] 05/09/2003 10/0 10/2016 Esotropia 01/13/2003 02/10/2017 Overview: 11/24- R sixth nerve palsy- improving MRI/MRA negative Alopecia 01/13/2003 02/10/2017 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/2002 09/20/2018 Overview: not bx proven DIVERTICULOSIS OF COLON 06/16/200202/22 Menopause 06/16/2002 10/23/2021 Abnormal weight gain 06/16/2002 017 Other ulcerative colitis with rectal bleeding 03/12/2022 documented as of this encounter (statuses as of 11/22/2023) Immunizations Name Administration Dates Next Due COVID-19 [...] Sign Reading Time Taken Comments Blood Pressure 50/20 11/10/2023 3:59 PM EDT Pulse 54 11/10/2023 3:59 PM EDT Temperature 36.7 C (98.1 F) 11/10/2023 3 :59 PM EDT Respiratory Rate 16 11/10/2023 3:59 PM EDT Oxygen Saturation 85% 11/10/2023 3:5 9 PM EDT Inhaled Oxygen Concentration - - Weight 50.9 kg (112 lb 3.2 oz) 11/10/2023 3:59 PM EDT this is her correct weight (patient is not eating very much) Height - - Body Mass Index 17.06 01/21/2023 10:04 AM EDT documented in this encounter Progress Notes * Leyda Ahn MD - 11/10/2023 4:10 PM EDT SUBJECTIVE: Nereida Stephen is a 83 year old female. Chief Complaint Patient presents with Return Visit Patient has not been eating very much. Fatigued, dizzy when walking. She said that she has some waxin her ears. Not able to hear as well. Wants the wax out if there is some present.Lost some weight,very low blood pressure, slow heart rate, and low oxygen saturation. . Questions about prescriptions. HPI: as above. Wt Readings from Last 6 Encounters: 11/10/23 50.9 kg (112 lb 3.2 oz) 09/12/23 61.3 kg (135 lb 3.2 oz) 09/10/23 61.2 kg (135 lb) 05/15/23 58.2 kg (128 lb 6.4 oz) 05/05/23 56.6 kg (124 lb 12.8 oz) 02/16/23 57.5 kg (126 lb 11.2 oz) BP Readings from Last 6 Encounters: 11/10/23 50/20 09/12/23 108/64 09/10/23 110/60 05/15/23 95/53 05/05/23 108/62 02/16/23 110/[address] Sellers who I saw for hospital follow-up 10/01/2022, had a follow-up 05/16 I saw her for hosp fu 10/01/22 - [facility] 09/11/2022, discharged 09[facility]19/2022 to the [facility] and discharge to home 09/29/2022.History of bioprosthetic [...] as needed. Saw Cardiology in September at [facility] and at [facility] in November, medication list reviewed Past medical history as noted below, med list updated, diagnosed with Crohn's colitis in December 2021. Taking gabapentin only 1 tablet at night, currently not on oxygen--was on oxygen started about 5 years ago at night, she goes to [place] May to August and had declined it, [facility]. And states that is the remain reason they are here. --had desaturation on exertion and st O2 2 lts with exertion., no w ff Reviewed last pulmonology notes from february, 6 minute walk test did not show desaturation at the time, nocturnal pulse oximetry was ordered but not completed---done 10/09/2022, environmental educator advised to start oxygen 2 L at night 10/02/22-no DVT left leg on Venous doppler. Labs-nml cbc ex mild anemia -Hb improved to 11.6, nml CMP ex bilirubin( high before , may have Levels syndrome) Use lasix 20mg she has 1 tab 3d/week till leg edema improve History of vitamin-D deficiency completed 57393 units weekly for 12 weeks, currently not on supplements Diagnosed with severe B12 deficiency on labs 02/16/2023, started B12 weekly for 4 weeks and then monthly getting her 2nd dose today, she will be going to [place] in 3 weeks till August, advised to havelabs repeated in [place] in about a month and if stable [...] stenosis, follows up with pain Clinic at [facility], got injection in January, taking gabapentin only 1 daily. Complains of dizziness when she stood up to get onto the exam table, weight is stable but noted taking metoprolol xl 25mg 1 daily instead of half as was advised by veterinary nurse. Presents today for acute appointment accompanied by her daughter with complains of decreased appetite, noted to have very low blood pressure, elevated heart rate, significant weight loss with associated fatigue, dizziness. Noted cardiology notes from [place] 08/03/23 -diagnosis of atrial flutter, pulmonary hypertension, CHF- was started on Entresto , also taking Lasix every day -, saw PCP 08/10/23, seen in clinic for cellulitis of right leg in August and then saw Podiatry. 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] the morning and 1 Tablet before bedtime. Mesalamine 1.2 GM Oral Tablet Delayed Release (Lialda) TAKE 2 TABLETS BY MOUTH EVERY MORNING 180 Tablet 3 oxygen GAS Use 2.5 L/min(Oxygen) as directed at bedtime. 1 Each 1 oxygen IN GAS 2L/min(Oxygen) continuous via nasal cannula. 1 Each 0 Anoro Ellipta 62.5-25 MCG/ACT Inhalation Aerosol Powder Breath Activated (umeclidinium-vilanterol) Inhale 1 Puff by mouth in the morning. (Patient not taking: Reported on 11/10/2023) 180 Blister Dosing Unit 3 Zoster Vac Recomb Adjuvanted 50 MCG/0.5ML Intramuscular Suspension Reconstituted (Shingrix) Inject 0.5 mL into a large muscle now and repeat dose in 60 to 180 days 1 Each 1 Shingrix 50 MCG/0.5ML Intramuscular Suspension Reconstituted (Zoster Vac Recomb Adjuvanted) inject 0.5ml intramuscularly as directed 1 Each 0 Comirnaty 30 MCG/0.3ML Intramuscular Suspension Prefilled Syringe (COVID-19 mRNA Vac-Bobbi(Fulcrum SP Materials)) Inject into a large muscle as directed [...] Reactions Pantoprazole Itchiness, rash Penicillins Hives hives OBJECTIVE: BP 50/20 | Pulse 54 | Temp 36.7 C (98.1 F) (Tympanic) | Resp 16 | SpO2 85% PHYSICAL EXAM: Rpt BP low General: alert, healthy, no distress, well developed Neck: supple, no adenopathy, thyroid Not enlarged without nodularity Heart: regular rhythm and rate,No murmurs. Lungs: lungs clear to auscultation Extremities: no edema Abdomen: Soft, non-tender, normal bowel sounds, no masses or organomegaly ASSESSMENT/PLAN: Hypotension, unspecified hypotension type (Primary) - EKG; Future; Expected date: 11/10/2023 - EKG History of transcatheter aortic valve replacement (TAVR) Paroxysmal atrial fibrillation (HCC) Systolic heart failure, unspecified HF chronicity (HCC) Pulmonary hypertension (HCC) COPD, group B, by GOLD 2017 classification (HCC) Loss of weight Dizziness History of chondrosarcoma Nocturnal hypoxemia B12 deficiency Cervical spondylosis Crohn's disease of large intestine without complication (HCC) Atrial flutter, unspecified type (HCC) -per daughter was started on Entresto by veterinary nurse in July, she is also taking Lasix every day -had her lay on table, feels better with incline EKG --atrial flutter with 4:1 conduction, diffuse ST/T inversion --discussed need for ER evaluation and recommend transfer by ambulance, patient refuses , daughter agreeable to take her Nereida Jaureguier refuses treatment and/or wishes to leave the office against medical advice. 1. The circumstances surrounding the care: hypotension , 2. The patient's mental status: AAO x 3 3. The exact care refused: transport by ambulance to ER, daughter in room and agrees to take her toER, nurse to notify ER 4. I have discussed with the nature of the patient's condition; the potential risks and consequences of the patient/parent refusing the care or leaving the office against medical advice; any factual scenarios that prompt an immediate return to the emergency department. --hypotension causing syncope, loc, 5. Follow up instructions for the patient: Leyda Ahn MD 11/10/2023 4:40 PM Follow-up: Return if symptoms worsen or fail to improve. | Check-out note: To ER (This note was completed using the dictation [...] with plan of care. Leyda Ahn MD 11/10/2023 documented in this encounter Procedure Notes * Antony Edwards DO - 11/10/2023 4:32 PM EDTAssociated Order(s): EKG REASON FOR STUDY: HYPOTENSION CONCLUSIONS: Atrial flutter with 4:1 A-V conduction ST & T wave abnormality, consider inferior ischemia ST & T wave abnormality, consider anterolateral ischemia Abnormal ECG When compared with ECG of 10-Nov-2023 16:32, T wave inversion less evident in Lateral leads Ventricular Rate: 52 Atrial Rate: 208 QRS Duration: 80 QT/QTc: 442/411 ms P-R-T Murdock: 217 : -28 : -79 degrees documented in this encounter Nursing Notes * Ghada Galicia LPN - 11/10/2023 5:16 PM EDT OVN and EKG were faxed to [facility] ED, confirmation received. Lobito Corona MA contacted ED to inform them that patient would be arriving via private vehicle from our office. * Lobito Corona, MED ASSIST - 11/10/2023 4:05 PM EDT The patient has been properly identified by confirmation of name and date of . Chief Complaint Patient presents with Return Visit Patient has not been eating very much. Fatigued, dizzy when walking. She said that she has some waxin her ears. Not able to hear as well. Wants the wax out if there is some present.Lost some weight,very low blood pressure, slow heart rate, and low oxygen saturation. . Questions about prescriptions. documented in this encounter Plan of Treatment Upcoming Encounters Date Type Department Care Team (Late st Contact Info) Description 11/30/2023 12:00 PM EDT Office Visit General Internal Medicine [facility] [address] [place] [address] Maxwell Sellers MD [address] [place] [address] 03/02/2024 10:00 AM EDT Office Visit Cardiology, [facility] [address] [place] [address] Rajesh Jordan MD [address] [place] [address] 05/03/2024 9:00 AM EST Office Visit Neurology [facility] [address] [place] [address] Ellen Carias PA-C [address] [place] [address] Scheduled Procedures Name Priority Associated Diagnoses Date/Ti [...] this encounter Medical Devices Implanted Type Area Sample Maker Original Device Identifier Shelf Expiration Date Model / Serial / Lot Valve Ce Aortic 21mm [id number] - [id number] Implanted:Qty : 1 on 04/17/2010 at OR [facility] Tissue - Non Human N/A: Chest [employer] ELISABETH 04/17/2010 [id number] / Patch Pericard 8x14cm [id number] - [id number] Implanted:Qty : 1 on 04/17/2010 at OR [facility] Tissue - Non Human N/A: Chest [employer] 12/05/2014 [id number] / / [id number] Sut Steel 6 M654g - [id number] Implanted:Qty : 4 on 04/17/2010 at OR [facility] N/A: Chest DO NOT USE 06/17/2014 [id number] / / [id number] documented as of this encounter Procedures Procedure Name Priority Date/Time Associated Diagnosis Comments FL ECG ROUTINE ECG W/LEAST 12 LDS I&R ONLY Routine 11/10/2023 4:32 PM EDT Hypotension, unspecified hypotension type documented in this encounter Results * EKG (11/10/2023 4:32 PM EDT) 11/10/2023 4:32 PM EDT Narrative Procedure Note Antony Edwards, DO - 11/10/2023 4:32 PM EDT REASON FOR STUDY: HYPOTENSION CONCLUSIONS: Atrial flutter with 4:1 A-V conduction ST & T wave abnormality, consider inferior ischemia ST & T wave abnormality, consider anterolateral ischemia Abnormal ECG When compared with ECG of 10-Nov-2023 16:32, T wave inversion less evident in Lateral leads Ventricular Rate: 52 Atrial Rate: 208 QRS Duration: 80 QT/QTc: 442/411 ms P-R-T Murdock: 217 : -28 : -79 degrees Leyda Ahn MD EKG [facility] documented in this encounter Visit Diagnoses Diagnosis Hypotension, unspecified hypotension type- Primary History of transcatheter aortic valve replacement (TAVR) Paroxysmal atrial fibrillation (HCC) Atrial fibrillation Systolic heart failure, unspecified HF chronicity (HCC) Pulmonary hypertension (HCC) Other chronic pulmonary heart diseases COPD, group B, by GOLD 2017 classification (HCC) Loss of weight Dizziness Dizziness and giddiness 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 Nocturnal hypoxemia Hypoxemia B12 deficiency Other B-complex deficiencies Cervical spondylosis Cervical spondylosis without myelopathy Crohn's disease of large intestine without complication (HCC) Regional enteritis of large intestine Atrial flutter, unspecified type (HCC) documented in this encounter Advance Directives Documents on File Type Date Recorded 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 Care Teams Material Engineer Relationship Specialty Start Date End Date Maxwell Sellers MD [address] [place] [address] PCP - General Internal Medicine 01/03/21 documented as of this encounter"
--- OUTSIDE RECORDS SUMMARY | 2024-05-12 21:51 | External Medical Summary ---
Author Name Unknown Address Unknown Organization K09[facility] [place] [address] Laboratory Report Ordering Provider Test Date Status CASE WHITLOCK 11/30/2023 12:36:39 Final Observation Date Value Abnormality Reference (Units ) Status Nucleated erythrocytes/100 leukocytes [Ratio] in Blood by Automated count 11/30/2023 12:36:39 Final Performing Location [facility] [place] [address]
--- OUTSIDE RECORDS SUMMARY | 2024-05-12 21:51 | External Medical Summary ---
Author Name Unknown Address Unknown Organization K09[facility] [place] [address] Laboratory Report Ordering Provider Test Date Status CASE WHITLOCK 11/30/2023 12:36:39 Final Observation Date Value Abnormality Reference (Units ) Status WBC, Total 11/30/2023 12:36:39 5.62 4.00-10.8 0 (K/uL) Final RBC 11/30/2023 12:36:39 3.94 3.85-5.15 (M/uL) Final Hemoglobin 11/30/2023 12:36:39 11.9 Below low normal 12 .0-15.3 (g/dL) Final HCT 11/30/2023 12:36:39 37.5 36.0-45.2 (%) Final MCV 11/30/2023 12:36:39 95.2 81.5-97.5 (fL) Final MCH 11/30/2023 12:36:39 30.2 27.0-34.0 (pg) Final MCHC 11/30/2023 12:36:39 31.7 32.0-36.0 (g/dL) Final RDW 11/30/2023 12:36:39 18.9 11.5-15.5 (%) Final Platelets 11/30/2023 12:36:39 102 Below low normal 140 -400 (K/uL) Final MPV 11/30/2023 12:36:39 9.7 6.6-11.1 ( fL) Final Performing Location [facility] [place] [address]
--- OUTSIDE RECORDS SUMMARY | 2024-05-12 21:51 | External Medical Summary | Summary of Care ---
Author Name Unknown Organization [facility] Address [address] [place] [address] Phone [phone] Care Team Providers Care Financial Wellness Coach Name Role Phone Maxwell Sellers MD Primary Care Provider + Reason for Visit * Reason Onset Date Comments Hospital Follow-Up Pt was admitt ed to [facility] for hypotension and dehydration. Pt denied any new concerns Hospital Follow-Up 11/30/2023 Encounter Details Date Type Department Care Team (Late st Contact Info) Description 11/30/2023 12:00 PM EDT Office Visit General Internal Medicine [facility] [address] [facility] [place] [id number] Maxwell Sellers MD [address] [place] [address] Hospital discharge follow-up*; Dehydration; Hypotension due to drugs; Chondrosarcoma (HCC); Meningioma (HCC); Acquired hypothyroidism; Typical atrial flutter (HCC); Scratch; Skin lesion of face; Subjective hearing change Allergies Active Allergy Reactions Criticality Noted Date Comments Pantoprazole 01/29/2022 Itchiness, rash Penicillins Hives 01/13/2003 hives documented as of this encounter (statuses as of 11/30/2023) Medications Medication Sig Dispensed Refills Start Date End Date Status Acetaminophen ER 650 MG Oral Tablet Extended Release 2 pill daily in AM & 2 pills in afternoon if needed 03/20/2015 Active oxygen GASIndications:Noc turnal hypoxemia,COPD, mild [...] 10/29/2023 Active Doxycycline Hyclate 100 MG Oral CapsuleIndications :Scratch Take 1 Capsule by mouth in the morning and 1 Capsule before bedtime. Do all this for 7 days. Take for 7 days. 14 Capsule 11/30/2023 07/15/202 4 Active Anoro Ellipta 62.5-25 MCG/ACT Inhalation Aerosol Powder Breath Activated (umeclidinium-luisana nterol)Indications :Pulmonary hypertension (HCC),Chondrosarco ma (HCC),COPD, severity to be determined (HCC) Inhale 1 Puff by mouth in the morning. 180 Blister Dosing Unit 3 12/18/2022 4 Discontinu ed(Patient preference /discontin uation) Doxycycline Hyclate 100 MG Oral Capsule Take 1 Capsule by mouth in the morning and 1 Capsule before bedtime. Do all this for 10 days. Until gone.. 20 Capsule 09/10/2023 4 Discontinu ed(Patient preference /discontin uation) Comirnaty 30 MCG/0.3ML Intramuscular Suspension Prefilled Syringe (COVID-19 mRNA Vac-Bobbi(Glisten)) Inject into a large muscle as directed 0.3 mL 09/29/2023 Discontinu ed(Patient preference /discontin uation) Hospital, Clinic, or Other Facility Administered Medication Ordered Dose Route Frequency Start Date End Date Status albuterol sulfate (PROVENTIL) (2.5 MG/3ML) 0.083% inhalation solution 2.5 mgIndications:COPD, severity to be determined (HCC),Chondrosarcoma (HCC),Pulmonary hypertension (HCC) 2.5 mg NEBULIZER PRN 01/07/2019 Active vitamin b-12 (Cyanocobalamin) inj 1,000 mcgIndications:B12 deficiency 1000 mcg IM [id number] 04/19/2023 03/19/2024 Active documented as of this encounter (statuses as of 11/30/2023) Active Problems Problem Noted Date Diagnosed Date [...] as of this encounter (statuses as of 11/30/2023) Resolved Problems Problem Noted Date Diagnosed Date Resolved Date Permanent atrial fibrillation 03/28/2019 10/28/2021 Chronic systolic CHF (conges tive heart failure) 03/28/2019 01/03/2021 CHF with right heart failure 03/21/2019 03/12/2022 Atherosclerosis of aorta 11/16/2018 Carpal tunnel syndrome 03/28/201302/10 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 [employer] Other*[id number] 04/08/2010 07/01/2016 Overview: Study Titile: Genomics Markers for Patients with Cardiovascular Disease Project # [id number] PI: Aleisha Loredo MD Please call [phone] with study related questions AORTIC VALVE STENOSIS [...] well after 03/29 surgical repair LOC PRIM [id number] 05/09/200310/2016 Esotropia 01/13/2003 02/10/2017 Overview: 11/24- R sixth nerve palsy- improving MRI/MRA negative Alopecia 01/13/2003 02/10/2017 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/2002 09/20/2018 Overview: not bx proven DIVERTICULOSIS OF COLON 06/16/200202/22 Menopause 06/16/2002 10/23/2021 Abnormal weight gain 06/16/2002 017 Other ulcerative colitis with rectal bleeding 03/12/2022 documented as of this encounter (statuses as of 11/30/2023) Immunizations Name Administration Dates Next Due COVID-19 mRNA, LNP-s, No Pre serve, 2-Dose Series (Moderna) 08/30/2020,07/25/2020 COVID-19, MRNA-LNP, 23-24, P F, 30 MCG/0.3 mL, 12 YRS AND ABOVE, IM (LiveHotSpot-Comirnat) 09/29/2023 COVID-19, mRNA, LNP-s, PF, B ooster, [...] 0 05/25/1978 - 05/25/2001 Smokeless Tobacco: Never Tobacco Cessation:Counseling Given: Not Answered Alcohol Use Standard Drinks/Week Comments Yes 14 [...] Sign Reading Time Taken Comments Blood Pressure 108/68 11/30/2023 12:09 PM EDT Pulse 95 11/30/2023 12:09 PM EDT Temperature 36.7 C (98 F) 11/30/2023 12:09 PM EDT Respiratory Rate - - Oxygen Saturation 96% 11/30/2023 12:09 PM EDT Inhaled Oxygen Concentration - - Weight 55.4 kg (122 lb 3.2 oz) 11/30/2023 12:09 PM EDT Height 172.7 cm (5' 8") 11/30/2023 12:09 PM EDT Body Mass Index 18.58 11/30/2023 12:09 PM EDT documented in this encounter Progress Notes * Maxwell Sellers MD - 11/30/2023 12:38 PM EDT Chief Complaint Patient presents with Hospital Follow-Up Pt was admitted to [facility] for hypotension and dehydration. Pt denied any new concerns Hospital Follow-Up SUBJECTIVE: Nereida Stephen is a 83 year old female with PMH as below who presents for hospital follow up. Admitted [facility] 11/09-11/11 for dizziness, fatigue, low bp. [place] to be dehydrated, wasn't drinking enough fluid. She was also found to be in atrial flutter, no anti-coag recommended given bleeding history. She was hydrated, bp meds adjusted and sent home. Has felt ok since. Drinking more water. No cp, sob, dizziness. Wound on right face wound center concerned about has healed per daughter, she was picking at it prior. Does have scrape right leg after dog scratched her 2 weeks ago. Is scabbed over, but tender at times. No discharge. No fevers. 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 1 Each 0 Furosemide 20 MG Oral Tablet (Lasix) 1 tab by mouth 3 days/week until leg edema improves (Patient taking differently: as needed (edema). 1 tab by mouth 3 days/week until leg edema improves) 30 [id number] Metoprolol Succinate ER 25 MG Oral Tablet [...] BY MOUTH EVERY MORNING 180 Tablet 3 Doxycycline Hyclate 100 MG Oral Capsule Take 1 Capsule by mouth in the morning and 1 Capsule beforebedtime. Do all this for 7 days. Take for 7 days. 14 Capsule 0 Zoster Vac Recomb Adjuvanted 50 MCG/0.5ML [...] Reactions Pantoprazole Itchiness, rash Penicillins Hives hives Health Maintenance Due Topic Date Due DXA Scan 08/10/2023 Zoster Vaccines (3 of 3) 11/24/2023 Colonoscopy 12/26/2023 ROS: CONSTITUTIONAL: No fevers, sweats, or chills EYE: No recent significant change in vision, No eye pain, redness, discharge, and No diplopia EARS: No ear pain, No drainage, No tinnitus or vertigo, and feels hearing decreased right ear PULMONARY: No cough, sputum, or hemoptysis, No wheezing, No rales, No shortness of breath, and No recent change in breathing CARDIOVASCULAR: No chest pain, No shortness of breath, No dyspnea on exertion, No orthopnea, No paroxysmal nocturnal dyspnea, No palpitations, and No syncope GASTROINTESTINAL: No abdominal pain, No change in bowel habits, No significant heartburn, No significant change in appetite, No nausea, vomiting, diarrhea, or constipation, No hematemesis, No blood in stools or black tarry stools, No abdominal bloating or early satiety, and No dysphagia ALL OTHER SYSTEMS NEGATIVE I reviewed social, PMH, PSH, and family history and updated where needed. 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 Tobacco Use Smoking status: Former Current packs/day: 0.00 Average packs/day: 3.0 packs/day for 23.0 years (69.0 ttl pk-yrs) Types: Cigarettes Start date: 05/25/1978 Quit date: 05/25/2001 Years since quittin.5 Smokeless tobacco: Never Vaping Use Vaping status: [...] Social Determinants of Health Financial Resource Strain: Low Risk (09/11/2022) [facility] Overall Financial Resource Strain (CARDIA) Difficulty of Paying Living Expenses: Not hard at all Food Insecurity: No Food Insecurity (09/11/2022) [facility] Hunger Vital Sign Worried About Running Out of Food in the Last Year: Never true Ran Out of Food in the Last Year: Never true Transportation Needs: No Transportation Needs (09/11/2022) [facility] PRAPARE - Transportation Lack of Transportation (Medical): No Lack of Transportation (Non-Medical): No Social Connections: Unknown (11/10/2023) Social Connections How often do you feel lonely or isolated from those around you? (Adult - for ages 18 years and over): Not on file Housing Stability: Not on file Past Medical History: Diagnosis Date Aortic valve [...] by YOLIS CHEATHAM at [facility] COLONOSCOPY 02/26/2005 Colonoscopy done at [facility] by Dr. Hilliard COLONOSCOPY THRU STOMA, W/BIOPSY 02/2009 chronic colitis with moderate activity, sm bowel ileitis, f/u in office COLONOSCOPY W/ BIOPSY (RECTUM) 11/15/2007 bx's taken COLONOSCOPY W/ BIOPSY (RECTUM) 02/14/2011 inflammation in colon- await path COLONOSCOPY, DIAGNOSTIC (RECTUM) 09/12/2014 normal bx, repeat 2 yrs/COLONOSCOPY FLEXIBLE PROXIMAL DIAGNOSTIC performed by Eduar Beckham MD at ENDOSCOPY [facility] COLONOSCOPY, DIAGNOSTIC (RECTUM) 09/24/2018 diverticulosis, repeat 3 yrs / [facility] COLONOSCOPY, DIAGNOSTIC (RECTUM) 12/25/2021 chronic active colitis / INPT [facility] EGD, FLEXIBLE, DIAGNOSTIC 09/24/2018 gastritis / [facility] EGD, FLEXIBLE, DIAGNOSTIC 12/25/2021 sm hiatal hernia / INPT [facility] INFORMATION 04/17/2010 [employer] Aortic Valve Model# [id number]-[id number] MISCELLANEOUS ORDER ([facility] ONLY) 05/2104 Gamma Knife for meningioma at [facility] MISCELLANEOUS ORDER ([facility] ONLY) N/A 05/04/2017 redo of chest chondrosarcoma at [facility] NECK/CHEST DEEP TUMOR REMOVAL, UNDER 5 CM 04/17/2010 EXCISION TUMOR DEEP NECK THORAX performed by DEVORAH CARSON at [facility] NONE 07/2004 thyroidectomy in [place] PARTIAL COLECTOMY W/ANASTOMOSIS 10/2001 Colectomy Partial rectosigmoid resection with RUTH/BSO and incidental appy REMOVAL OF APPENDIX 10/2001 Appendectomy REMOVAL OF OVARY/OVIDUCT(S) 10/2001 Ovary/Tube(S) Removal REMOVAL OF THYROID GLAND 2004 Thyroidectomy REPAIR INITIAL INCISIONAL HERNIA 04/14/2005 [facility] Surgi-Center Dr. Hilliard REPAIR INITIAL INCISIONAL OR VENTRAL HERNIA; REDUCIBLE 01/08/2004 Lower abdominal hernia repair with mesh [facility] Surgi[facility] Dr. Hilliard REPLACEMENT AORTIC VALVE, BYPASS WITH PROSTHETIC VALVE 04/17/2010 REPLACEMENT AORTIC VALVE performed by SAIAD PARKINSON at [place] [facility] TOTAL HYSTERECTOMY 10/2001 RUTH (Total Abdominal Hysterectomy) Family History Problem Relation Name Age of Onset Heart Disorder Mother (dec) Lung Disorder Mother Heart Disorder Father (dec) Heart disease Brother Other (Paraplegia due to an accident) Brother Cancer Aunt (Unspecified) paternal;stomach Cancer Aunt (Unspecified) maternal half sister; breast OBJECTIVE: PHYSICAL EXAM: BP 108/68 | Pulse 95 | Temp 36.7 C (98 F) (Tympanic) | Ht 1.727 m (5' 8") | Wt 55.4 kg (122 lb 3.2 oz) | SpO2 96% | BMI 18.58 kg/m | BSA 1.63 m General: alert, healthy, and no distress Head: Normocephalic, No masses, lesions, tenderness or abnormalities, scar right jain area, no open wounds Eye Exam: conjunctiva are pink and non-injected, sclera clear Ears: External ears normal, TM's Normal, very mild cerumen right ear, no obstruction Heart: regular rate & rhythm, no murmur, no gallops, S-1 normal, and S-2 normal Lungs: normal respiratory rate and rhythm, lungs clear to auscultation Extremities: no clubbing, no cyanosis, scab right ruano, surrounding redness, tender, but not warm, no collection Psych: normal affect, no flight of ideas or tangential thought, good eye contact, no pressured speech D/C Summary: (1) Acute hypotension: Secondary to hypovolemia Decreased p.o. intake in the setting of warm ambient weather Rule out tickborne infection given bradycardic episodes Received cautious amount of IV fluid She has been feeling much better since admission Blood pressure is maintained at 147/83 Has had physical therapy and did very well She remains stable and no more hypotension and no dizziness noted She has been ambulating without any difficulties She will be discharged home this afternoon Her Entresto will be on hold and she will be given Toprol-XL 25 mg daily for control of blood pressure and also heart rate Atypical chest pain EKG showed a flutter with 40s to 1 block Serial cardiac enzymes are unremarkable for any ACS Echo of the heart showed-LVEF 55 to 60%, the moderate concentric LVH, RV is mildly dilated, RV systolic function is normal, right atrium is severely dilated, left atrium is moderately dilated, the patient is status post TAVR, normal gradient across prosthetic aortic valve, there is severe tricuspid regurgitation, the estimated systolic pulmonary pressure is 40 mmHg and there is moderate mitral regurgitation Appreciate cardiology input and recommendation No more chest pain and/or palpitation Chronic diastolic heart failure, patient clinically dry valvular heart disease (mild to moderate MR, severe TR) Received cautious amount of intravenous fluid due to dehydration No signs and or symptoms of fluid overload Her furosemide will be prescribed as needed depending on the weight gain and leg edema or symptoms of fluid overload Atrial flutter with bolus to 1 block PAF, slow atrial flutter on EKG, not on anticoagulation due to past bleeding bioprosthetic AVR stenosis status post surgery Not on any anticoagulation due to prior history of bleeding Heart rate is controlled at around 54 this morning Other significant chronic medical conditions are stable and as below: COPD, lung status at baseline Crohn's disease stable on regimen Meningioma status post gamma knife surgery Sternal chondrosarcoma status post surgery Chronic hyponatremia Hypothyroidism, patient hyperthyroid with note of abnormal TFTs Daily alcohol intake, patient denies abuse Past tobacco abuse 11/16/23 cardiology: 1. Atrial flutter with controlled ventricular response rate, possibly trending slower. Three day ZIO patch event monitor placed to assess heart rate both tachy and Yoni. Discussed potential need forpacemaker or medication adjustment depending on results 2. Symptomatic hypotension possibly secondary to Entresto and volume depletion. Currently appears euvolemic. Following weights at home with plans to use diuretic on a p.r.n. basis. Entresto discontinued. Preserved LV systolic function and chronic right heart failure limits benefits 3. Dilated right heart with tricuspid insufficiency. No signs of right heart failure. Patient to continue daily weights. Urged nocturnal oxygen usage ASSESSMENT: Z09 Hospital discharge follow-up (primary encounter diagnosis) E86.0 Dehydration I95.2 Hypotension due to drugs C41.9 Chondrosarcoma (HCC) D32.9 Meningioma (HCC) E03.9 Acquired hypothyroidism I48.3 Typical atrial flutter (HCC) T14.8XXA Scratch L98.9 Skin lesion of face H91.90 Subjective hearing change PLAN: Hospital discharge follow-up (Primary) - DISCH MED RECON CUR MED LIS As below Dehydration - COMPREHENSIVE METABOLIC PANEL; Future; Expected date: 11/30/2023 - CBC WITH WBC DIFFERENTIAL; Future; Expected date: 11/30/2023 Better Discussed hydration Hypotension due to drugs - COMPREHENSIVE METABOLIC PANEL; Future; Expected date: 11/30/2023 - CBC WITH WBC DIFFERENTIAL; Future; Expected date: 11/30/2023 Cont metoprolol, off entresto Chondrosarcoma (HCC) S/p surgery Meningioma (HCC) S/p treatment Acquired hypothyroidism Cont levothyroxine Typical atrial flutter (HCC) Appreciate cardiology aid Scratch - Doxycycline Hyclate 100 MG Oral Capsule; Take 1 Capsule by mouth in the morning and 1 Capsule before bedtime. Do all this for 7 days. Take for 7 days. Perhaps early cellulitis Cont wound care, start abx as above, tolerated in past, discussed keeping covered in sun on this Skin lesion of face Healed Follow, told if changes/new lesions let me know Subjective hearing change Exam ok Discussed audiology/ent, declines Follow Up: Return in about 4 months (around 04/01/2024), or if symptoms worsen or fail to improve, for Labs Today. | For: Labs Today Maxwell Sellers MD documented in this encounter Nursing Notes * Sallie Whaley MED ASSIST - 11/30/2023 12:06 PM EDT Chief Complaint Patient presents with Hospital Follow-Up Pt was admitted to [facility] for hypotension and dehydration. Pt denied any new concerns documented in this encounter Plan of Treatment Upcoming Encounters Date Type Department Care Team (Late st Contact Info) Description 03/02/2024 10:00 AM EDT Office Visit Cardiology, [facility] [address] [address] Rajesh Jordan MD [address] [address] 04/05/2024 8:20 AM EST Office Visit General Internal Medicine [address] [place] [address] Leyda Ahn MD [address] [facility] [place] [address] [address] 05/03/2024 9:00 AM EST Office Visit Neurology [address] [place] [address] Ellen Carias PA-C [address] [facility] [place] [address] Pending Results Name Type Priority Associated Diagnoses Date /Time COMPREHENSIVE METABOLIC PANEL Lab Routine Dehydration Hypotension due to drugs 11/30/2023 12:36 PM EDT CBC WITH WBC DIFFERENTIAL Lab Routine Dehydration Hypotension due to drugs 11/30/2023 12:36 PM EDT Scheduled Orders Name Type Priority Associated Diagnoses Orde r Schedule COMPREHENSIVE METABOLIC PANEL Lab Routine Dehydration Hypotension due to drugs Expected: 11/30/2023 (Approximate), Expires: 11/29/2024 CBC WITH WBC DIFFERENTIAL Lab Routine Dehydration Hypotension due to drugs Expected: 11/30/2023 (Approximate), Expires: 11/29/2024 Scheduled Procedures Name Priority Associated Diagnoses Date/Ti [...] this encounter Medical Devices Implanted Type Area Transplant Nurse Practitioner Device Identifier Shelf Expiration Date Model / Serial / Lot Valve Ce Aortic 21mm [id number] - [id number] Implanted:Qty : 1 on 04/17/2010 at [place] [facility] Tissue - Non Human N/A: Chest [employer] ELIS[employer]ETH 04/17/2010 [id number] / Patch Pericard 8x14cm [id number] - [id number] Implanted:Qty : 1 on 04/17/2010 at OR [facility] Tissue - Non Human N/A: Chest [employer] 12/05/2014 -[id number] / / [id number] S[employer] 6 [id number] - [id number] Implanted:Qty : 4 on 04/17/2010 at OR [facility] N/A: Chest DO NOT USE 06/17/2014 [id number] / / [id number] documented as of this encounter Visit Diagnoses Diagnosis Hospital discharge follow-up- Primary Other follow-up examination Dehydration Hypotension due to drugs Other iatrogenic hypotension 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, site unspecified Meningioma (HCC) Benign neoplasm of cerebral meninges Acquired hypothyroidism Unspecified hypothyroidism Typical atrial flutter (HCC) Atrial flutter Scratch Abrasion or friction burn of other, multiple, and unspecified sites, without mention of infection Skin lesion of face Unspecified disorder of skin and subcutaneous tissue Subjective hearing change documented in this encounter Advance Directives Documents on File Type Date Recorded 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 Care Teams Financial Wellness Coach Relationship Specialty Start Date End Date Maxwell Sellers MD [address] [facility] [place] [address] PCP - General Internal Medicine 01/03/21 documented as of this encounter
--- OUTSIDE RECORDS SUMMARY | 2024-05-12 21:51 | External Medical Summary | Summary of Care ---
Author Name Unknown Organization [facility] Address [address] [place] [facility] [address] Phone [phone] Care Team Providers Care Instructional Coach Name Role Phone Maxwell Sellers MD Primary Care Provider + Reason for Visit * Reason Onset Date Comments Test Results 11/27/2023 Encounter Details Date Type Department Care Team (Late st Contact Info) Description 11/27/2023 Telephone Cardiology, [facility] [address] [place] [address] Rajesh Jordan MD [address] [place] [address] Test Results Allergies Active Allergy Reactions Criticality [...] EVERY MORNING 180 Tablet 3 10/29/2023 Active Anoro Ellipta 62.5-25 MCG/ACT Inhalation Aerosol [...] MCG/0.3ML Intramuscular Suspension Prefilled Syringe (COVID-19 mRNA Vac-Bobbi([employer])) Inject into a large muscle as directed 0.3 mL 09/29/2023 4 Discontinu ed(Patient preference /discontin uation) Hospital, Clinic, or Other Facility Administered Medication Ordered Dose Route Frequency Start Date End Date Status albuterol sulfate (PROVENTIL) (2.5 MG/3ML) 0.083% inhalation solution 2.5 mgIndications:COPD, severity to be determined (HCC),Chondrosarcoma (HCC),Pulmonary hypertension (HCC) 2.5 mg NEBULIZER PRN 01/07/2019 Active vitamin b-12 (Cyanocobalamin) inj 1,000 mcgIndications:B12 deficiency 1000 mcg IM [id number] 04/19/2023 03/19/2024 Active documented as of this [...] 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 [employer] Other*[id number] 04/08/2010 07/01/2016 Overview: Study Titile: [employer] Markers for Patients with Cardiovascular Disease Project # [id number] PI: Aleisha Loredo MD Please call [phone] with study related questions AORTIC VALVE STENOSIS [...] well after 03/29 surgical repair LOC PRIM [id number] 05/09/2003 1010/2016 Esotropia 01/13/2003 02/10/2017 Overview: /03- [...] MCG/0.3 mL, 12 YRS AND ABOVE, IM ([facility]) 09/29/2023 COVID-19, mRNA, LNP-s, PF, B ooster, [...] Telephone Encounter - Sari Joaquin CMA - 11/30/2023 1:50 PM EDT Letter mailed. * Telephone Encounter - Sari Joaquin CMA [...] 03/02/2024 10:00 AM EDT Office Visit Cardiology, [facility] [address] [address] Rajesh Jordan MD [address] [place] [address] 04/05/2024 8:20 AM EST Office Visit General Internal Medicine [address] [place] [address] Leyda Ahn MD [address] [facility] [place] [address] 05/03/2024 9:00 AM EST Office Visit Neurology [facility] [address] [facility] [place] [address] Ellen Carias PA-C [address] [facility] [place] [address] Scheduled Procedures Name Priority Associated Diagnoses Date/Ti [...] this encounter Medical Devices Implanted Type Area Traffic Assistant Device Identifier Shelf Expiration Date Model / Serial / Lot Valve Ce Aortic 21mm 3000tfx - [id number] [place]planted:[place] 1 on [place]17[place]2010 [place] [facility] [place] Human N/A: Chest [employer] ELISABETH 04/17/2010 3000TFX-2 [id number] / Patch Pericard 8x14cm [id number] - [id number] Implanted:Qty : 1 on 04/17/2010 [place] [facility] [place] - Non Human N/A: Chest [employer] 12/05/2014 -0814N / / [id number] Sut Steel 6 M654g - [id number] Implanted:Qty : 4 on 04/17/2010 [place] [facility] [place]A: Chest DO NOT USE 06/17/2014 [id number] / / [id number] documented as of this encounter Advance Directives Documents on File Type Date Recorded Patient Stator Connector Expl 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 Care Teams Instructional Coach Relationship Specialty Start Date End Date Maxwell Sellers MD [address] [facility] [place] [address] PCP - General Internal Medicine 01/03/21 documented as of this encounter
--- OUTSIDE RECORDS SUMMARY | 2024-05-12 21:51 | External Medical Summary ---
Author Name Unknown Address Unknown Organization K09:[facility] [place] [address] Laboratory Report Ordering Provider Test Date Status CASE WHITLOCK 11/30/2023 12:36:39 Final Observation Date Value Abnormality Reference (Units ) Status BUN 11/30/2023 12:36:39 25 Above high normal 6-20 (mg/dL) Final Creatinine 11/30/2023 12:36:39 0.7 0.5-1.0 (mg/dL) Final Glomerular filtration rate/1.73 sq M.predicted [Volume Rate/Area] in Serum, Plasma or Blood by Creatinine-based formula (CKD-EPI) 11/30/2023 12:36:39 86 >=60 (mL/min) Final eGFR is calculated based on the CKD-EPI 2020 equation Sodium 11/30/2023 12:36:39 132 Below low normal 135 -146 (mmol/L) Final Potassium 11/30/2023 12:36:39 5.2 Above high normal 3. 5-5.1 (mmol/L) Final Cl 11/30/2023 12:36:39 99 98-107 (mm ol/L) Final CO2 11/30/2023 12:36:39 21 Below low normal 22- 32 (mmol/L) Final Anion gap 11/30/2023 12:36:39 12 7-15 (mmol /L) Final Glucose 11/30/2023 12:36:39 86 70-120 (mg /dL) Final Albumin 11/30/2023 12:36:39 4.5 3.8-5.0 (g /dL) Final AST (Aspartate aminotransferase) 11/30/2023 12:36:39 53 Above high normal 10-35 (U/L) Final Alk Phos 11/30/2023 12:36:39 147 Above high normal 35 -130 (U/L) Final Bilirubin, Total 11/30/2023 12:36:39 1.7 Above high no rmal <=1.2 (mg/dL) Final Calcium 11/30/2023 12:36:39 9.5 8.4-10.2 ( mg/dL) Final Protein 11/30/2023 12:36:39 7.3 6.0-8.3 (g /dL) Final ALT (Alanine aminotransferase) 11/30/2023 12:36:39 27 10-35 (U/L) Tommie rosales Performing Location [facility] [address] [place] [address]
--- OUTSIDE RECORDS SUMMARY | 2024-05-12 21:51 | External Medical Summary | Summary of Care ---
Author Name Unknown Organization [facility] Address [address] [place] [address] Phone [phone] Care Team Providers Care Drier Operator Head Name Role Phone Leyda Ahn MD Primary Care Provider [phone] Reason for Visit * Reason Comments Outpatient Testing Encounter Details Date Type Department Care Team (Late st Contact Info) Description 12/07/2023 10:40 AM EDT Laboratory Laboratory [facility] [address] [place] [id number] [place], [facility] [address] [place] [address] Hyponatremia Allergies Active Allergy Reactions Criticality Noted Date Comments Pantoprazole 01/29/2022 Itchiness, rash Penicillins Hives 01/13/2003 hives documented as of this encounter (statuses as of 12/07/2023) Medications Medication Sig Dispensed Refills Start Date [...] inj 1,000 mcgIndications:B12 deficiency 1000 mcg IM [id number] 04/19/2023 03/19/2024 Active documented as of this encounter (statuses as of 12/07/2023) Active Problems Problem Noted Date Diagnosed Date [...] as of this encounter (statuses as of 12/07/2023) Resolved Problems Problem Noted Date Diagnosed Date Resolved Date Permanent atrial fibrillation 03/28/2019 10/28/2021 Chronic systolic CHF (conges tive heart failure) 03/28/2019 01/03/2021 CHF with right heart failure 03/21/2019 03/12/2022 Atherosclerosis of aorta 11/16/2018 Carpal tunnel syndrome 03/28/201302/10 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 [employer] Other*[id number] 04/08/2010 07/01/2016 Overview: Study Titile: [employer] Markers for Patients with Cardiovascular Disease Project # [id number] PI: Aleisha Loredo MD Please call [phone] with study related questions AORTIC VALVE STENOSIS [...] well after 03/29 surgical repair LOC PRIM [id number] 05/09/2003 10/0 10/2016 Esotropia 01/13/2003 02/10/2017 Overview: 11/24- R sixth nerve palsy- improving MRI/MRA negative Alopecia 01/13/2003 02/10/2017 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/2002 09/20/2018 Overview: not bx proven DIVERTICULOSIS OF COLON 06/16/200202/22 Menopause 06/16/2002 10/23/2021 Abnormal weight gain 06/16/2002 017 Other ulcerative colitis with rectal bleeding 03/12/2022 documented as of this encounter (statuses as of 12/07/2023) Immunizations Name Administration Dates Next Due COVID-19 mRNA, LNP-s, No Pre serve, 2-Dose Series (Moderna) 08/30/2020,07/25/2020 COVID-19, MRNA-LNP, 23-24, P F, 30 MCG/0.3 mL, 12 YRS AND ABOVE, IM (PFIZER-Comirnat) 09/29/2023 COVID-19, mRNA, LNP-s, PF, B ooster, [...] 03/02/2024 10:00 AM EDT Office Visit Cardiology, [facility] [address] [address] Rajesh Jordan MD [address] [place] [address] 04/05/2024 8:20 AM EST Office Visit General Internal Medicine [facility] [address] [place] [address] Leyda Ahn MD [address] [facility] [place] [address] 05/03/2024 9:00 AM EST Office Visit Neurology [facility] [address] [place] [address] Ellen Carias PA-C [address] [facility] [place] [address] Pending Results Name Type Priority Associated Diagnoses Date /Time COMPREHENSIVE METABOLIC PANEL Lab Routine Hyponatremia 12/07/2023 10:41 AM EDT CBC WITH WBC DIFFERENTIAL Lab Routine Hyponatremia 12/07/2023 10:41 AM EDT CBC Lab Routine Hyponatremia 12/07/2023 10:41 AM EDT DIFFERENTIAL, AUTOMATED Lab Routine Hyponatremia 12/07/2023 10:41 AM EDT Scheduled Procedures Name Priority Associated Diagnoses Date/Ti me COLONOSCOPY FLEXIBLE PROXIMA L DIAGNOSTIC Recall IBD (inflammatory bowel disease) Health Maintenance Due Date Last Done Comments DXA Scan 08/10/2023 08/09/2020, 07/23, 11/07/2009, Additional history exists Zoster Vaccines (3 of 3) 11/24/2023 024, 09/14/2014, 09/14/2014 *CXR OR CT FOR COPD EVER 12/06/2023 Colonoscopy 12/26/2023 12/25/2021, 08/07/2021, 09/24/2018, Additional history [...] this encounter Medical Devices Implanted Type Area Dumbwaiter Operator Device Identifier Shelf Expiration Date Model / Serial / Lot Valve Ce Aortic 21mm 3000tfx - [id number] Implanted:Qty : 1 on 04/17/2010 at [place] [facility] [place] Tissue - Non Human N/A: Chest [employer] ELISABETH 04/17/2010 3000TFX-2 / [id number] / Patch Pericard 8x14cm [id number] - [id number] Implanted:Qty : 1 on 04/17/2010 at [place] [facility] [place] Tissue - Non Human N/A: Chest [employer] 12/05/2014 -0814N / / [id number] Sut Steel 6 M654g - [id number] Implanted:Qty : 4 on 04/17/2010 at [place] [facility] [place] N/A: Chest DO NOT USE 06/17/2014 M654G / / [id number] documented as of this encounter Visit Diagnoses Diagnosis Hyponatremia Hyposmolality and/or hyponatremia documented in this encounter Advance Directives Documents on File Type Date Recorded Patient Casualty Claims Supervisor Expl 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 Care Teams Drier Operator Head Relationship Specialty Start Date End Date Leyda Ahn MD [address] [place] [address] PCP - General Internal Medicine 12/06/23 documented as of this encounter
--- OUTSIDE RECORDS SUMMARY | 2024-05-12 21:51 | External Medical Summary | Summary of Care ---
Author Name Unknown Organization [facility] Address [address] [facility] [place] [address] Phone [phone] Care Team Providers Care Drug Abuse Counselor Name Role Phone Leyda Ahn MD Primary Care Provider [phone] Reason for Visit * Reason Onset Date Comments Hospital Follow-Up Pt was admitt ed to [facility] for hypotension and dehydration. Pt denied any new concerns Hospital Follow-Up 11/30/2023 Encounter Details Date Type Department Care Team (Late st Contact Info) Description 11/30/2023 12:00 PM EDT Office Visit General Internal Medicine [facility] [address] [facility] [place] [id number] Maxwell Sellers MD [address] [facility] [place] [address] Hospital discharge follow-up*; Dehydration; Hypotension due to drugs; Chondrosarcoma (HCC); Meningioma (HCC); Acquired hypothyroidism; Typical atrial flutter (HCC); Scratch; Skin lesion of face; Subjective hearing change; Hyponatremia; Decreased platelet count (HCC) Allergies Active Allergy Reactions Criticality Noted Date Comments Pantoprazole 01/29/2022 Itchiness, rash Penicillins Hives 01/13/2003 hives documented as of this encounter (statuses as of 12/08/2023) Medications Medication Sig Dispensed Refills Start Date [...] morning. 180 Blister Dosing Unit 3 12/18/2022 11/30/19 24 Discontinue d(Patient preference/ discontinua tion) Doxycycline Hyclate 100 MG Oral Capsule Take 1 Capsule by mouth in the morning and 1 Capsule before bedtime. Do all this for 10 days. Until gone.. 20 Capsule 09/10/2023 11/30/19 24 Discontinue d(Patient preference/ discontinua tion) Comirnaty 30 MCG/0.3ML Intramuscular Suspension Prefilled Syringe (COVID-19 mRNA Vac-Bobbi([employer])) Inject into a large muscle as directed 0.3 mL 09/29/2023 11/30/19 24 Discontinue d(Patient preference/ discontinua tion) Doxycycline Hyclate 100 MG Oral CapsuleIndications :Scratch Take 1 Capsule by mouth in the morning and 1 Capsule before bedtime. Do all this for 7 days. Take for 7 days. 14 Capsule 11/30/2023 12/07/19 24 Hospital, Clinic, or Other Facility Administered Medication Ordered Dose Route Frequency Start Date End Date Status albuterol sulfate (PROVENTIL) (2.5 MG/3ML) 0.083% inhalation solution 2.5 mgIndications:COPD, severity to be determined (HCC),Chondrosarcoma (HCC),Pulmonary hypertension (HCC) 2.5 mg NEBULIZER PRN 01/07/2019 Active vitamin b-12 (Cyanocobalamin) inj 1,000 mcgIndications:B12 deficiency 1000 mcg IM [id number] 04/19/2023 03/19/2024 Active documented as of this encounter (statuses as of 12/08/2023) Active Problems Problem Noted Date Diagnosed Date [...] as of this encounter (statuses as of 12/08/2023) Resolved Problems Problem Noted Date Diagnosed Date Resolved Date Permanent atrial fibrillation 03/28/2019 10/28/2021 Chronic systolic CHF (conges tive heart failure) 03/28/2019 01/03/2021 CHF with right heart failure 03/21/2019 03/12/2022 Atherosclerosis of aorta 11/16/2018 Carpal tunnel syndrome 03/28/201302/10 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 Henriquez [facility] N/S asymptomatic en plaque cavernous [...] well after 03/29 surgical repair LOC PRIM [id number] 05/09/2003 10/0 10/2016 Esotropia 01/13/2003 02/10/2017 Overview: 11/24- R sixth nerve palsy- improving MRI/MRA negative Alopecia 01/13/2003 02/10/2017 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/2002 09/20/2018 Overview: not bx proven DIVERTICULOSIS OF COLON 06/16/200202/22 Menopause 06/16/2002 10/23/2021 Abnormal weight gain 06/16/2002 017 Other ulcerative colitis with rectal bleeding 03/12/2022 documented as of this encounter (statuses as of 12/08/2023) Immunizations Name Administration Dates Next Due COVID-19 mRNA, LNP-s, No Pre serve, 2-Dose Series (Moderna) 08/30/2020,07/25/2020 COVID-19, MRNA-LNP, 23-24, P F, 30 MCG/0.3 mL, 12 YRS AND ABOVE, IM (Connected-Comirnat) 09/29/2023 COVID-19, mRNA, LNP-s, PF, B ooster, [...] with Hospital Follow-Up Pt was admitted to [facility] for hypotension and dehydration. Pt denied any new concerns Hospital Follow-Up SUBJECTIVE: Nereida Stephen is a 83 year old female with PMH as below who presents for hospital follow up. Admitted [facility] 11/09-11/11 for dizziness, fatigue, low bp. [place] to be dehydrated, wasn't drinking enough fluid. 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 Tobacco Use Smoking status: Former Current packs/day: [...] Resource Strain: Low Risk (09/11/2022) [facility] Overall Financial Resource Strain (CARDIA) Difficulty of Paying Living Expenses: Not hard at all Food Insecurity: No Food Insecurity (09/11/2022) [facility] Hunger Vital Sign Worried About Running Out of Food in the Last Year: Never true Ran Out of Food in the Last Year: Never true Transportation Needs: No Transportation Needs (09/11/2022) [facility] PRAPARE - Transportation Lack of Transportation [...] performed by YOLIS CHEATHAM at [facility] COLONOSCOPY 02/26/2005 Colonoscopy done at [facility] by Dr. Hilliard COLONOSCOPY THRU STOMA, W/BIOPSY 02/2009 chronic colitis with moderate activity, sm bowel ileitis, f/u in office COLONOSCOPY W/ BIOPSY (RECTUM) 11/15/2007 bx's taken COLONOSCOPY W/ BIOPSY (RECTUM) 02/14/2011 inflammation in colon- await path COLONOSCOPY, DIAGNOSTIC (RECTUM) 09/12/2014 normal bx, repeat 2 yrs/COLONOSCOPY FLEXIBLE PROXIMAL DIAGNOSTIC performed by Eduar Beckham MD at ENDOSCOPY [facility] COLONOSCOPY, DIAGNOSTIC (RECTUM) 09/24/2018 diverticulosis, repeat 3 yrs / [facility] COLONOSCOPY, DIAGNOSTIC (RECTUM) 12/25/2021 chronic active colitis / INPT [facility] EGD, FLEXIBLE, DIAGNOSTIC 09/24/2018 gastritis / [facility] EGD, FLEXIBLE, DIAGNOSTIC 12/25/2021 sm hiatal hernia / INPT [facility] INFORMATION 04/17/2010 [employer] Aortic Valve Model# 3000TFX-21 MISCELLANEOUS ORDER ([facility] ONLY) 05/2104 Gamma Knife for meningioma at [facility] MISCELLANEOUS ORDER ([facility] ONLY) N/A 05/04/2017 redo of chest chondrosarcoma at [facility] NECK/CHEST DEEP TUMOR REMOVAL, UNDER 5 CM 04/17/2010 EXCISION TUMOR DEEP NECK THORAX performed by DEVORAH CARSON at OR [facility] NONE 07/2004 thyroidectomy in [place] PARTIAL COLECTOMY W/ANASTOMOSIS 10/2001 Colectomy Partial rectosigmoid resection with RUTH/BSO and incidental appy REMOVAL OF APPENDIX 10/2001 Appendectomy REMOVAL OF OVARY/OVIDUCT(S) 10/2001 Ovary/Tube(S) Removal REMOVAL OF THYROID GLAND 2004 Thyroidectomy REPAIR INITIAL INCISIONAL HERNIA 04/14/2005 [facility] Surgi-Center Dr. Hilliard REPAIR INITIAL INCISIONAL OR VENTRAL HERNIA; REDUCIBLE 01/08/2004 Lower abdominal hernia repair with mesh [facility] SurgiCenter Dr. Hilliard REPLACEMENT AORTIC VALVE, BYPASS WITH PROSTHETIC VALVE 04/17/2010 REPLACEMENT AORTIC VALVE performed by SAIDA PARKINSON at OR [facility] TOTAL HYSTERECTOMY 10/2001 RUTH (Total Abdominal Hysterectomy) [...] masses, lesions, tenderness or abnormalities, scar right protestant area, no open wounds Eye Exam: conjunctiva [...] with Hospital Follow-Up Pt was admitted to [facility] for hypotension and dehydration. Pt denied any new concerns documented in this encounter Miscellaneous Notes * Addendum Note - Maxwell Sellers MD - 12/08/2023 8:39 AM EDTAddended by: MAXWELL SELLERS on: 12/08/2023 08:39 AM Modules accepted: Orders * Addendum Note - Maxwell Sellers MD - 12/01/2023 8:22 AM EDTAddended by: MAXWELL SELLERS on: 12/01/2023 08:22 AM Modules accepted: Orders documented in this encounter Plan of Treatment Upcoming Encounters Date Type Department Care Team (Late st Contact Info) Description 03/02/2024 10:00 AM EDT Office Visit Cardiology, [facility] [address] [place] [address] Rajesh Jordan MD [address] [place] [address] 04/05/2024 8:20 AM EST Office Visit General Internal Medicine [facility] [address] [facility] [place] [address] Leyda Ahn MD [address] [facility] [place] [address] 05/03/2024 9:00 AM EST Office Visit Neurology [facility] [address] [facility] [place] [address] Ellen Carias PA-C [address] [facility] [place] [address] Scheduled Orders Name Type Priority Associated Diagnoses Orde r Schedule COMPREHENSIVE METABOLIC PANEL Lab Routine Hyponatremia Expected: 12/08/2023 (Approximate), Expires: 12/07/2024 CBC WITH WBC DIFFERENTIAL Lab Routine Decreased platelet count (HCC) Expected: 12/08/2023 (Approximate), Expires: 12/07/2024 Scheduled Procedures Name Priority Associated Diagnoses Date/Ti [...] this encounter Medical Devices Implanted Type Area Brim Shaper Device Identifier Shelf Expiration Date Model / Serial / Lot Valve Ce Aortic 21mm 3000tfx - [id number] Implanted:Qty : 1 on 04/17/2010 at OR [facility] Tissue - Non Human N/A: Chest [employer] ELISABETH 04/17/2010 3000TFX-2 / [id number] / Patch Pericard 8x14cm [id number] - [id number] Implanted:Qty : 1 on 04/17/2010 at OR [facility] Tissue - Non Human N/A: Chest [employer] 12/05/2014 [id number] / / [id number] Sut Steel 6 [id number] - [id number] Implanted:Qty : 4 on 04/17/2010 at OR [facility] N/A: Chest DO NOT USE 06/17/2014 [id number] / / [id number] documented as of this encounter Results * (ABNORMAL) COMPREHENSIVE METABOLIC PANEL (12/07/2023 10:41 AM EDT) BUN 26(H) 6 - 20 mg/dL 12/07/2023 12:54 PM EDT [facility] 56-02 Creatinine 0.8 0.5 - 1.0 mg/dL 12/07/2023 12:54 PM EDT [facility] 56-02 Estimated Glomerular Filtration Rate 75 >=60 mL/min 12/07/2023 12:54 PM EDT [facility] 56 Comment:eGFR is calculated b ased on the CKD-EPI 2020 equation Sodium 129(L) 135 - 146 mmol/L 12/07/2023 12:54 PM EDT [facility] 56 Potassium 5.0 3.5 - 5.1 mmol/L 12/07/2023 12:54 PM EDT [facility] 56 Chloride 94(L) 98 - 107 mmol/L 12/07/2023 12:54 PM EDT [facility] 56 CO2 21(L) 22 - 32 mmol/L 12/07/2023 12:54 PM EDT [facility] 56 Anion Gap 14 7 - 15 mmol/L 12/07/2023 12:54 PM EDT [address] Glucose 106 70 - 120 mg/dL 12/07/2023 12:54 PM EDT [facility] 56 Albumin 4.5 3.8 - 5.0 g/dL 12/07/2023 12:54 PM EDT [address] AST 50(H) 10 - 35 U/L 12/07/2023 12:54 PM EDT [facility] 56 Alkaline Phosphatase 116 35 - 130 U/L 12/07/2023 12:54 PM T [facility] 56 Bilirubin, Total 2.4(H) <=1.2 mg/dL 12/07/2023 12:54 PM EDT [facility] 56 Calcium 9.4 8.4 - 10.2 mg/dL 12/07/2023 12:54 PM T [facility] 56 Protein 7.0 6.0 - 8.3 g/dL 12/07/2023 12:54 PM EDT [facility] 56 ALT 25 10 - 35 U/L 12/07/2023 12:54 PM T [facility] 56 Blood Venous blood specimen / Unknown Venipuncture / Unknown 12/07/2023 10:41 AM EDT 12/07/2023 10:41 AM EDT Maxwell Sellers MD LAB BLOOD ORDERA BLES [facility] [address] [place] [address] * (ABNORMAL) COMPREHENSIVE METABOLIC PANEL (11/30/2023 12:36 PM EDT) BUN 25(H) 6 - 20 mg/dL 11/30/2023 2:58 PM EDT [facility] 56 Creatinine 0.7 0.5 - 1.0 mg/dL 11/30/2023 2:58 PM EDT [facility] 56 Estimated Glomerular Filtration Rate 86 >=60 mL/min 11/30/2023 2:58 PM EDT [facility] 56 Comment:eGFR is calculated b ased on the CKD-EPI 2020 equation Sodium 132(L) 135 - 146 mmol/L 11/30/2023 2:58 PM EDT [facility] 56 Potassium 5.2(H) 3.5 - 5.1 mmol/L 11/30/2023 2:58 PM EDT [facility] 56 Chloride 99 98 - 107 mmol/L 11/30/2023 2:58 PM EDT [facility] 56 CO2 21(L) 22 - 32 mmol/L 11/30/2023 2:58 PM EDT [facility] 56 Anion Gap 12 7 - 15 mmol/L 11/30/2023 2:58 PM EDT [facility] 56 Glucose 86 70 - 120 mg/dL 11/30/2023 2:58 PM EDT [facility] 56 Albumin 4.5 3.8 - 5.0 g/dL 11/30/2023 2:58 PM EDT [facility] 56 AST 53(H) 10 - 35 U/L 11/30/2023 2:58 PM EDT [facility] 56 Alkaline Phosphatase 147(H) 35 - 130 U/L 11/30/2023 2:58 PM EDT [facility] 56 Bilirubin, Total 1.7(H) <=1.2 mg/dL 11/30/2023 2:58 PM EDT [facility] 56 Calcium 9.5 8.4 - 10.2 mg/dL 11/30/2023 2:58 PM EDT [facility] 56 Protein 7.3 6.0 - 8.3 g/dL 11/30/2023 2:58 PM EDT [facility] 56- ALT 27 10 - 35 U/L 11/30/2023 2:58 PM EDT [facility] 56- Blood Venous blood specimen / Unknown Venipuncture / Unknown 11/30/2023 12:36 PM EDT 11/30/2023 12:36 PM EDT Maxwell Sellers MD LAB BLOOD ORDERA BLES [facility] [address] [facility] [address] documented in this encounter Visit Diagnoses Diagnosis Hospital discharge [...] skin and subcutaneous tissue Subjective hearing change Hyponatremia Hyposmolality and/or hyponatremia Decreased platelet count (HCC) Thrombocytopenia, unspecified documented in this encounter Advance Directives Documents on File Type Date Recorded Patient Safety Patrol Officer Expl 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 Care Teams Drug Abuse Counselor Relationship Specialty Start Date End Date [facility]hn [facility] [address] [facility] [address] P[facility] - General Internal Medicine 12/06/23 documented as of this encounter
--- OUTSIDE RECORDS SUMMARY | 2024-05-12 21:51 | External Medical Summary | Summary of Care ---
Author Name Unknown Organization [facility] Address [address] [place] [address] Phone [phone] Care Team Providers Care Client Success Manager Name Role Phone Maxwell Sellers MD Primary Care Provider + Reason for Visit * Reason Onset Date Comments Hospital Follow-Up Pt was admitt ed to [facility] for hypotension and dehydration. Pt denied any new concerns Hospital Follow-Up 11/30/2023 Encounter Details Date Type Department Care Team (Late st Contact Info) Description 11/30/2023 12:00 PM EDT Office Visit General Internal Medicine [facility] [address] [facility] [place] [id number] Maxwell Sellers MD 200 [facility] [place] [address] Hospital discharge follow-up*; Dehydration; Hypotension due to drugs; Chondrosarcoma (HCC); Meningioma (HCC); Acquired hypothyroidism; Typical atrial flutter (HCC); Scratch; Skin lesion of face; Subjective hearing change; Hyponatremia Allergies Active Allergy Reactions Criticality Noted [...] MCG/0.3ML Intramuscular Suspension Prefilled Syringe (COVID-19 mRNA Vac-Bobbi(Volumental)) Inject into a large muscle as directed [...] inj 1,000 mcgIndications:B12 deficiency 1000 mcg IM [id number] 04/19/2023 03/19/2024 Active documented as of this [...] 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 [employer] Other*[id number] 04/08/2010 07/01/2016 Overview: Study Titile: [employer] Markers for Patients with Cardiovascular Disease Project # [id number] PI: Aleisha Loredo MD Please call [phone] with study related questions AORTIC VALVE STENOSIS [...] well after 03/29 surgical repair LOC PRIM [id number] 05/09/2003 100 10/2016 Esotropia 01/13/2003 02/10/2017 Overview: 11/24- R [...] MCG/0.3 mL, 12 YRS AND ABOVE, IM ([facility]) 09/29/2023 COVID-19, mRNA, LNP-s, PF, B ooster, [...] with Hospital Follow-Up Pt was admitted to [facility] for hypotension and dehydration. Pt denied any new concerns Hospital Follow-Up SUBJECTIVE: Nereida Stephen is a 83 year old female with PMH as below who presents for hospital follow up. Admitted [facility] 11/09-11/11 for dizziness, fatigue, low bp. [place] to be dehydrated, wasn't drinking enough fluid. 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 Tobacco Use Smoking status: Former Current packs/day: [...] Resource Strain: Low Risk (09/11/2022) Received from [facility], [facility] Overall Financial Resource Strain (CARDIA) Difficulty of Paying Living Expenses: Not hard at all Food Insecurity: No Food Insecurity (09/11/2022) Received from [facility], [facility] Hunger Vital Sign Worried About Running Out of Food in the Last Year: Never true Ran Out of Food in the Last Year: Never true Transportation Needs: No Transportation Needs (09/11/2022) Received from [facility], [facility] PRAPARE - Transportation Lack of Transportation (Medical): [...] performed by YOLIS CHEATHAM at [facility] COLONOSCOPY 02/26/2005 Colonoscopy done at [facility] by Dr. Hilliard COLONOSCOPY THRU [...] (RECTUM) 09/24/2018 diverticulosis, repeat 3 yrs / [facility] COLONOSCOPY, DIAGNOSTIC (RECTUM) 12/25/2021 chronic active colitis / INPT [facility] EGD, FLEXIBLE, DIAGNOSTIC 09/24/2018 gastritis / [facility] EGD, FLEXIBLE, DIAGNOSTIC 12/25/2021 sm hiatal hernia / INPT [facility] INFORMATION 04/17/2010 [employer] Aortic Valve Model# 3000TFX-21 MISCELLANEOUS ORDER ([facility] ONLY) 05/2104 Gamma Knife for meningioma at [facility] MISCELLANEOUS ORDER ([facility] ONLY) N/A 05/04/2017 redo of chest chondrosarcoma at [facility] NECK/CHEST DEEP TUMOR REMOVAL, UNDER 5 CM 04/17/2010 EXCISION TUMOR DEEP NECK THORAX performed by DEOVRAH CARSON at OR [facility] NONE 07/2004 thyroidectomy in [place] PARTIAL COLECTOMY W/ANASTOMOSIS 10/2001 Colectomy Partial rectosigmoid resection with RUTH/BSO and incidental appy REMOVAL OF APPENDIX 10/2001 Appendectomy REMOVAL OF OVARY/OVIDUCT(S) 10/2001 Ovary/Tube(S) Removal REMOVAL OF THYROID GLAND 2004 Thyroidectomy REPAIR INITIAL INCISIONAL HERNIA 04/14/2005 [facility] Surgi-Center Dr. Hilliard REPAIR INITIAL INCISIONAL OR VENTRAL HERNIA; REDUCIBLE 01/08/2004 Lower abdominal hernia repair with mesh [facility] SurgiCenter Dr. Hilliard REPLACEMENT AORTIC VALVE, BYPASS WITH PROSTHETIC VALVE 04/17/2010 REPLACEMENT AORTIC VALVE performed by SAIDA PARKINSON at OR [facility] TOTAL HYSTERECTOMY 10/2001 RUTH [...] masses, lesions, tenderness or abnormalities, scar right lutheran area, no open wounds Eye Exam: conjunctiva [...] with Hospital Follow-Up Pt was admitted to [facility] for hypotension and dehydration. Pt [...] 03/02/2024 10:00 AM EDT Office Visit Cardiology, [facility] [address] [facility] [place] [address] Rajesh Jordan MD 132 [facility] [place] [address] 04/05/2024 8:20 AM EST Office Visit [facility] [place] [address] [place] [address] Leyda Ahn MD 200 [facility] [place] [address] 05/03/2024 9:00 AM EST Office Visit Neurology [facility] [place] [address] [facility] [place] [address] Ellen Carias PA-C [address] [place] [address] Scheduled Orders Name Type Priority Associated Diagnoses Orde r Schedule COMPREHENSIVE METABOLIC PANEL Lab Routine Hyponatremia Expected: 12/01/2023 (Approximate), Expires: 11/30/2024 CBC WITH WBC DIFFERENTIAL Lab Routine Hyponatremia Expected: 12/01/2023 (Approximate), Expires: 11/30/2024 Scheduled Procedures Name Priority Associated Diagnoses Date/Ti [...] encounter Medical Devices Implanted Type Area Agricultural Service Technician Device Identifier Shelf Expiration Date Model / Serial / Lot Valve Ce Aortic 21mm 3000tfx - [id number] Implanted:Qty : 1 on 04/17/2010 at OR [facility] Tissue - Non Human N/A: Chest [employer] ELISABETH 04/17/2010 3000TFX-2 [id number] / Patch Pericard 8x14cm [id number] - [id number] Implanted:Qty : 1 on 04/17/[address] [facility] - Non Human N/A: Chest [employer] 12/05/2014 PC-0814N / / [id number] Sut Steel 6 M654g - [id number] Implanted:Qty : 4 on 04/17/2010 at OR [facility] N/A: Chest DO NOT USE 06/17/2014 M654G / / [id number] documented as of this encounter Results * (ABNORMAL) COMPREHENSIVE METABOLIC PANEL (11/30/2023 12:36 PM EDT) BUN 25(H) 6 - 20 mg/dL 11/30/2023 2:58 PM EDT [facility] 56- Creatinine 0.7 0.5 - 1.0 mg/dL 11/30/2023 2:58 PM EDT [facility] 56- Estimated Glomerular Filtration Rate 86 >=60 mL/min 11/30/2023 2:58 PM EDT [facility] 56- Comment:eGFR is calculated b ased on the CKD-EPI 2020 equation Sodium 132(L) 135 - 146 mmol/L 11/30/2023 2:58 PM EDT [facility] 56- Potassium 5.2(H) 3.5 - 5.1 mmol/L 11/30/2023 2:58 PM EDT [facility] 56- Chloride 99 98 - 107 mmol/L 11/30/2023 2:58 PM EDT [facility] 56-02 CO2 21(L) 22 - 32 mmol/L 11/30/2023 2:58 PM EDT [facility] 56- Anion Gap 12 7 - 15 mmol/L 11/30/2023 2:58 PM EDT [facility] 56- Glucose 86 70 - 120 mg/dL 11/30/2023 2:58 PM EDT [facility] 56 Albumin 4.5 3.8 - 5.0 g/dL 11/30/2023 2:58 PM EDT [facility] 56- AST 53(H) 10 - 35 U/L 11/30/2023 2:58 PM EDT [facility] 56 Alkaline Phosphatase 147(H) 35 - 130 U/L 11/30/2023 2:58 PM EDT [facility] 56 Bilirubin, Total 1.7(H) <=1.2 mg/dL 11/30/2023 2:58 PM EDT [facility] 56 Calcium 9.5 8.4 - 10.2 mg/dL 11/30/2023 2:58 PM EDT [facility] 56 Protein 7.3 6.0 - 8.3 g/dL 11/30/2023 2:58 PM EDT [facility] 56 ALT 27 10 - 35 U/L 11/30/2023 2:58 PM EDT [facility] 56 Blood Venous blood specimen / Unknown Venipuncture / Unknown 11/30/2023 12:36 PM EDT 11/30/2023 12:36 PM EDT Maxwell Sellers MD LAB BLOOD ORDERA BLES [facility] [address] [place] [address] documented in this encounter Visit [...] Subjective hearing change Hyponatremia Hyposmolality and/or hyponatremia documented in this encounter Advance Directives Documents on File Type Date Recorded Patient Library Historian Expl 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 Care Teams Client Success Manager Relationship Specialty Start Date End Date Maxwell Sellers MD 200 [facility] [address] PCP - General Internal Medicine 01/03/21 documented as of this encounter
--- OUTSIDE RECORDS SUMMARY | 2024-05-12 21:51 | External Medical Summary | Summary of Care ---
Author Name Unknown Organization [facility] Address [address] [facility] [address] Phone [phone] Care Team Providers Care Footwear Factory Worker Name Role Phone Leyda Ahn MD Primary Care Provider [phone] Reason for Visit * Reason Comments Acute Pt here with lower l eg edema, with redness and has pitting edema up to her knee. Has had this for 3 days now Encounter Details Date Type Department Care Team (Late st Contact Info) Description 01/08/2024 1:00 PM EDT Office Visit Family Practice [facility] [address] [facility] [place] [address] Paramjit Hurtado MD 132 [facility] [place] [address] Bilateral lower extremity edema*; Venous insufficiency; Hyponatremia Allergies Active Allergy Reactions Criticality Noted Date Comments Pantoprazole 01/29/2022 Itchiness, rash Penicillins Hives 01/13/2003 hives documented as of this encounter (statuses as of 01/08/2024) Medications Medication Sig Dispensed Refills Start Date [...] in the morning. 30 Tablet 4 Active Furosemide 20 MG Oral Tablet (Lasix) 1 tab by mouth 3 days/week until leg edema improves 30 Tablet 11 3 01/08/20 24 Discontinued Hospital, Clinic, or Other Facility Administered Medication Ordered Dose Route Frequency Start Date End Date Status albuterol sulfate (PROVENTIL) (2.5 MG/3ML) 0.083% inhalation solution 2.5 mgIndications:COPD, severity to be determined (HCC),Chondrosarcoma (HCC),Pulmonary hypertension (HCC) 2.5 mg NEBULIZER PRN 01/07/2019 Active vitamin b-12 (Cyanocobalamin) inj 1,000 mcgIndications:B12 deficiency 1000 mcg IM [id number] 04/19/2023 03/19/2024 Active documented as of this encounter (statuses as of 01/08/2024) Active Problems Problem Noted Date Diagnosed Date [...] as of this encounter (statuses as of 01/08/2024) Resolved Problems Problem Noted Date Diagnosed Date Resolved Date Permanent atrial fibrillation 03/28/2019 10/28/2021 Chronic systolic CHF (conges tive heart failure) 03/28/2019 01/03/2021 CHF with right heart failure 03/21/2019 03/12/2022 Atherosclerosis of aorta 11/16/2018 Carpal tunnel syndrome 03/28/201302/10 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 Henriquez [facility] [place]S [...] well after 03/29 surgical repair LOC PRIM [id number] 05/09/2003 1010/2016 Esotropia 01/13/2003 02/10/2017 Overview: 11/24- R sixth nerve palsy- improving MRI/MRA negative Alopecia 01/13/2003 02/10/2017 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/2002 09/20/2018 Overview: not bx proven DIVERTICULOSIS OF COLON 06/16/200202/22 Menopause 06/16/2002 10/23/2021 Abnormal weight gain 06/16/2002 017 Other ulcerative colitis with rectal bleeding 03/12/2022 documented as of this encounter (statuses as of 01/08/2024) Immunizations Name Administration Dates Next Due COVID-19 [...] Sign Reading Time Taken Comments Blood Pressure 102/60 01/08/2024 1:02 PM EDT Pulse 80 01/08/2024 1:02 PM EDT Temperature 36.8 C (98.3 F) 01/08/2024 1:02 PM ED T Respiratory Rate 16 01/08/2024 1:02 PM EDT Oxygen Saturation - - Inhaled Oxygen Concentration - - Weight 59.4 kg (131 lb) 01/08/2024 1:02 PM EDT Height - - Body Mass Index 19.92 11/30/2023 12:09 PM EDT documented in this encounter Progress Notes * Paramjit Hurtado MD - 01/08/2024 1:21 PM EDT Images from the original note were not included. History of Present Illness Nereida Stephen is a 83 year old female that presents for Acute (Pt here with lower leg edema, with redness and has pitting edema up to her knee. Has had this for 3 days now) Patient here with family member. Physical Exam BP 102/60 | Pulse 80 | Temp 36.8 C (98.3 F) (Tympanic) | Resp 16 | Wt 59.4 kg (131 lb) | BMI 19.92 kg/m | BSA 1.69 m AAOx3 Elderly, frail-appearing woman Normal affect NCAT/ Neck supple, + Throat clear RRR Lungs CTABL Abd soft +BS No gross neuro deficits + tense pitting edema to knees bilaterally with purplish discoloration from upper calf to distal legs - equal bilateterally, sensation intact, + distal pulses Slow to stand from seated position, balance poor I have reviewed most recent labs CBC and BMP Assessment and Plan Bilateral lower extremity edema To knee and not above. Equal bilaterally. There is significant discoloration with tension on the soft tissue. She has gained 9 lbs since her visit 5 weeks ago, which is even more signfiicant considering her thin and frail frame. This is mostly water weight. Needs diuresis - lasix 40mg daily and check labs Thursday. This is likely due to increased H20 intake s/p admission for dehydration in October. Venous insufficiency - chronic. Now with significant edema. Compression/elevation. Hyponatremia - on labs last month. Repeat next week after furosemide admin 40mg daily until further instructions. Wrap-Up TBD - will contact next week - she will get her repeat labs on Thursday. Time: I spent a total of 20-29 minutes (exact time 25 mins) on the date of service in preparation, delivery, and documentation of the care provided to Nereida Stephen excluding any time spent in the performance of separately billed services. documented in this encounter Plan of Treatment Upcoming Encounters Date Type Department Care Team (Late st Contact Info) Description 01/15/2024 9:30 AM EDT Office Visit Ophthalmology, [facility] [address] [place] [address] Jim Tran DO [address] [place] [address] 03/02/2024 10:00 AM EDT Office Visit Cardiology, [facility] [address] [place] [address] Rajesh Jordan MD [address] [place] [address] 04/05/2024 8:20 AM EST Office Visit General Internal Medicine [address] [place] 200 [facility] [place] [address] Leyda Ahn MD 200 [facility] [place], [place] [address] Scheduled Orders Name Type Priority Associated Diagnoses Orde r Schedule RENAL FUNCTION PANEL Lab Routine Hyponatremia Expected: 01/08/2024 (Approximate), Expires: 01/07/2025 OSMOLALITY, URINE Lab Routine Hyponatremia Expected: 01/08/2024 (Approximate), Expires: 01/07/2025 OSMOLALITY, SERUM Lab Routine Hyponatremia Expected: 01/08/2024, Expires: 01/07/2025 SODIUM, RANDOM URINE Lab Routine Hyponatremia Expected: 01/08/2024 (Approximate), Expires: 01/07/2025 CBC Lab Routine Venous insufficiency Expected: 01/08/2024 (Approximate), Expires: 01/07/2025 Scheduled Procedures Name Priority Associated Diagnoses Date/Ti [...] this encounter Medical Devices Implanted Type Area Material Control Supervisor Device Identifier Shelf Expiration Date Model / Serial / Lot Valve Ce Aortic 21mm 3000tfx - [id number] Implanted:Qty : 1 on 04/17/[place] [facility] [place] - Non Human N/A: Chest [employer]CI[employer] ELISABETH 04/17/2010 3000TFX-2 / [id number] / Patch Pericard 8x14cm [id number] - [id number] Implanted:Qty : 1 on 04/17/2010 [place] [facility] Tissue - Non Human N/A: Chest [employer] 12/05/2014 PC-0814N / / [id number] Sut Steel 6 M654g - [id number] Implanted:Qty : 4 on 04/17/2010 [place] [facility] N/A: Chest DO NOT USE 06/17/2014 M654G / / [id number] documented as of this encounter Visit Diagnoses Diagnosis Bilateral lower extremity edema- Primary Edema Venous insufficiency Unspecified venous (peripheral) insufficiency Hyponatremia Hyposmolality and/or hyponatremia documented in this encounter Advance Directives Documents on File Type Date Recorded Patient Developer Designer Expl 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 Care Teams Footwear Factory Worker Relationship Specialty Start Date End Date Leyda Ahn MD [address] [place] [address] PCP - General Internal Medicine 12/06/23 documented as of this encounter"
--- OUTSIDE RECORDS SUMMARY | 2024-05-12 21:51 | External Medical Summary | Summary of Care ---
Author Name Unknown Organization [facility] Address [address] [place] [address] Phone [phone] Care Team Providers Care Business Services Coordinator Name Role Phone Maxwell Sellers MD Primary Care Provider + Reason for Visit * Reason Comments Outpatient Testing Encounter Details Date Type Department Care Team (Late st Contact Info) Description 11/30/2023 12:40 PM EDT Laboratory Laboratory [facility] [address] [place] [id number] [facility] [address] [place] [address] Dehydration; Hypotension due to drugs Allergies Active Allergy Reactions Criticality Noted Date [...] inj 1,000 mcgIndications:B12 deficiency 1000 mcg IM [id number] 04/19/2023 03/19/2024 Active documented as of this [...] 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 Henriquez [facility] N/S asymptomatic en plaque cavernous sinus meningioma [...] well after 03/29 surgical repair LOC PRIM [id number] 05/09/2003 1010/2016 Esotropia 01/13/2003 02/10/2017 Overview: 11/24- [...] the money to buy more. Never true 11/01/20 22 Within the past 12 months, t [...] 03/02/2024 10:00 AM EDT Office Visit Cardiology, [facility] [address] [place] [address] Rajesh Jordan MD [address] [place] [address] 04/05/2024 8:20 AM EST Office Visit General Internal Medicine [facility] [address] [place] [address] Leyda Ahn MD [address] [facility] [place] [address] 05/03/2024 9:00 AM EST Office Visit Neurology [facility] [place] [address] [place] [address] Ellen Carias PA-C [address] [place] [address] Pending Results Name Type Priority Associated Diagnoses Date /Time COMPREHENSIVE METABOLIC PANEL Lab Routine Dehydration Hypotension due to drugs 11/30/2023 12:36 PM EDT CBC WITH WBC DIFFERENTIAL Lab Routine Dehydration Hypotension due to drugs 11/30/2023 12:36 PM EDT CBC Lab Routine Dehydration Hypotension due to drugs 11/30/2023 12:36 PM EDT DIFFERENTIAL, AUTOMATED Lab Routine Dehydration Hypotension due to drugs 11/30/2023 12:36 PM EDT Scheduled Procedures Name Priority Associated [...] this encounter Medical Devices Implanted Type Area Certified Nurse Device Identifier Shelf Expiration Date Model / Serial / Lot Valve Ce Aortic 21mm 3000tfx - [id number] Implanted:Qty : 1 on 04/17/2010 at [place] [facility] Tissue - Non Human N/A: Chest [employer] ELISABETH 04/17/2010 3000TFX-2 / [id number] / Patch Pericard 8x14cm [id number] - [id number] Implanted:Qty : 1 on 04/17/2010 at OR [facility] Tissue - Non Human N/A: Chest [employer] 12/05/2014 -0814N / / [id number] Sut Steel 6 M654g - [id number] Implanted:Qty : 4 on 04/17/2010 at OR [facility] N/A: Chest DO NOT USE 06/17/2014 M654G / / [id number] documented as of this encounter Visit Diagnoses Diagnosis Dehydration Hypotension due to drugs Other iatrogenic hypotension documented in this encounter Advance Directives Documents on File Type Date Recorded Patient Capacity Manager Expl 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 Care Teams Business Services Coordinator Relationship Specialty Start Date End Date Maxwell Sellers MD 200 [facility] [place] [address] PCP - General Internal Medicine 01/03/21 documented as of this encounter
--- OUTSIDE RECORDS SUMMARY | 2024-05-12 21:52 | External Medical Summary | Summary of Care ---
Author Name Unknown Organization [facility] Address [address] [place] [address] Phone [phone] Care Team Providers Care Independent Living Advisor Name Role Phone Maxwell Sellers MD Primary Care Provider + Reason for Visit * Reason Comments Follow Up Encounter Details Date Type Department Care Team (Late st Contact Info) Description 11/16/2023 10:00 AM EDT Office Visit Cardiology, [facility] [address] [facility] [place] [id number] Rajesh Jordan MD [address] [facility] [address] Typical atrial flutter (HCC)* Allergies Active Allergy Reactions Criticality Noted Date Comments Pantoprazole 01/29/2022 Itchiness, rash Penicillins Hives 01/13/2003 hives documented as of this encounter (statuses as of 11/16/2023) Medications Medication Sig Dispensed Refills Start Date [...] MCG/0.3ML Intramuscular Suspension Prefilled Syringe (COVID-19 mRNA Vac-Bobbi(Ventrix)) Inject into a large muscle as directed 0.3 mL 4 Active Additional Information Patient not taking.Reported on 11/16/2023 Mesalamine 1.2 GM Oral Tablet Delayed Release (Lialda) TAKE 2 TABLETS BY MOUTH EVERY MORNING 180 Tablet 3 4 Active Entresto 24-26 MG Oral Tablet Take 1 Tablet by mouth in the morning and 1 Tablet before bedtime. 4 11/16/19 Discontinued Hospital, Clinic, or Other Facility Administered Medication Ordered Dose Route Frequency Start Date End Date Status albuterol sulfate (PROVENTIL) (2.5 MG/3ML) 0.083% inhalation solution 2.5 mgIndications:COPD, severity to be determined (HCC),Chondrosarcoma (HCC),Pulmonary hypertension (HCC) 2.5 mg NEBULIZER PRN 01/07/2019 Active vitamin b-12 (Cyanocobalamin) inj 1,000 mcgIndications:B12 deficiency 1000 mcg IM [id number] 04/19/2023 03/19/2024 Active documented as of this encounter (statuses as of 11/16/2023) Active Problems Problem Noted Date Diagnosed Date [...] as of this encounter (statuses as of 11/16/2023) Resolved Problems Problem Noted Date Diagnosed Date Resolved Date Permanent atrial fibrillation 03/28/2019 10/28/2021 Chronic systolic CHF (conges tive heart failure) 03/28/2019 01/03/2021 CHF with right heart failure 03/21/2019 03/12/2022 Atherosclerosis of aorta 11/16/2018 Carpal tunnel syndrome 03/28/201302/10 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 Henri[place] [facility] asymptomatic en plaque cavernous sinus meningioma [...] well after 03/29 surgical repair LOC PRIM [id number] 05/09/2003 10/0 10/2016 Esotropia 01/13/2003 02/10/2017 Overview: 7/03- R sixth nerve palsy- improving MRI/MRA negative Alopecia 01/13/2003 02/10/2017 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/2002 09/20/2018 Overview: not bx proven DIVERTICULOSIS OF COLON 06/16/200202/22 Menopause 06/16/2002 10/23/2021 Abnormal weight gain 06/16/2002 017 Other ulcerative colitis with rectal bleeding 03/12/2022 documented as of this encounter (statuses as of 11/16/2023) Immunizations Name Administration Dates Next Due COVID-19 mRNA, LNP-s, No Pre serve, 2-Dose Series (Moderna) 08/30/2020,07/25/2020 COVID-19, MRNA-LNP, 23-24, P F, 30 MCG/0.3 mL, 12 YRS AND ABOVE, IM ([facility]) 09/29/2023 COVID-19, mRNA, LNP-s, PF, B ooster, 100mcg/0.5mg (Moderna) 05/13/2021 Covid-19, Mrna, Lnp-s, Pf, B ivalent, 30 Mcg, IM, 12 yrs and above (Ventrix) 03/18/2022 PPD 02/14/2011 Pneumococcal Conjugate Vacc, 13 [...] Sign Reading Time Taken Comments Blood Pressure 124/70 11/16/2023 10:32 AM EDT Pulse 60 11/16/2023 10:32 AM EDT Temperature - - Respiratory Rate 14 11/16/2023 10:32 AM EDT Oxygen Saturation - - Inhaled Oxygen Concentration - - Weight 54.4 kg (120 lb) 11/16/2023 10:32 AM EDT Height - - Body Mass Index 18.25 01/21/2023 10:04 AM EDT documented in this encounter Progress Notes * Rajesh Jordan MD - 11/16/2023 10:00 AM EDT 11/16/2023 Cardiology Follow Up Referring Provider: PCP: [place] [address] [place] [address] [phone] Chief Complaint: Post hospital follow-up SUBJECTIVE: Nereida Stephen is a 83 year old year old female with ongoing cardiac issues 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 Patient underwent TAVR valve in valve 09/12/22 at [facility]. LV thrombus noted during case. Started onheparin and developed retroperitoneal bleed. IV heparin discontinued. LV thrombus was resolved on repeat echo and no anticoagulation therapy was given on discharge No coronary disease by preoperative cardiac catheterization, 2009. Repeat cardiac catheterization at [facility] showing mild luminal irregularities of the coronary [...] dehydration and alcohol consumption Patient is seen post hospital follow-up after admission on November 10, 2023 with symptomatic hypotension. Records and in-hospital studies reviewed. Patient accompanied by daughter who aids in history Atrial flutter with controlled ventricular response rate noted on admission and throughout Patient treated with IV fluid replacement with improvement in symptoms Entresto begun earlier this year discontinued Notes medication begun by primary care physician in [place] due to concerns regarding heart failure. Generally has been doing well since hospital discharge. Struggling somewhat to restrict activities. No further dizziness lightheadedness syncope or near syncope but feels occasionally unsteady on feet. Weight has gone up but predominantly due to increased appetite in reduce diuretic usage No sense of tachy palpitations or heart racing A Complete Review of Systems is as stated above or negative. 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) B12 deficiency Meningioma (HCC) Right internal carotid occlusion Paroxysmal atrial fibrillation (HCC) Crohn's disease of large intestine without complication (HCC) Idiopathic peripheral neuropathy COPD, group B, by GOLD 2017 classification ([facility]) Pulmonary hypertension (HCC) Stenosis of prosthetic aortic valve Spinal stenosis of lumbar region without neurogenic claudication Venous insufficiency Chronic rhinitis Review of patient's allergies indicates: Allergen Reactions [...] 3 days/week until leg edema improves) 30 [id number] Metoprolol Succinate ER 25 MG Oral Tablet [...] BY MOUTH EVERY MORNING 180 Tablet 3 Anoro Ellipta 62.5-25 MCG/ACT Inhalation Aerosol Powder [...] taking: Reported on 11/16/2023) 1 Each 1 Shingrix 50 MCG/0.5ML Intramuscular Suspension Reconstituted (Zoster Vac Recomb Adjuvanted) inject 0.5ml intramuscularly as directed (Patient not taking: Reported on 11/16/2023) 1 Each 0 Comirnaty 30 MCG/0.3ML Intramuscular Suspension Prefilled Syringe (COVID-19 mRNA Vac-Bobbi(Ventrix)) Inject into a large muscle as directed (Patient not taking: Reported on 11/16/2023) 0.3 mL 0 Current Facility-Administered Medications Medication Dose Route Frequency Provider Last Rate Last Admin albuterol sulfate (PROVENTIL) (2.5 MG/3ML) 0.083% inhalation solution 2.5 mg 2.5 mg Nebulizer PRN Kelsey Bowles DO 2.5 mg at 11/12/21 1153 vitamin b-12 (Cyanocobalamin) inj 1,000 mcg 1,000 mcg Intramuscular Q4 Weeks Yahir Collado PA-C 1,000 mcg at 05/29/23 1022 OBJECTIVE/PHYSICAL EXAMINATION: BP 124/70 | Pulse 60 | Resp 14 | Wt 54.4 kg (120 lb) | BMI 18.25 kg/m | BSA 1.62 m General: Age appropriate in no acute distress Head: normocephalic, no masses, lesions, tenderness or abnormalities Eyes: conjunctiva are pink and non-injected, sclera clear Throat: clear Nares: without discharge Neck: supple, no adenopathy, normal jugular venous pulse, no hepatojugular reflux, no carotid bruits Chest: normal shape and normal respiratory effort Lungs: clear to auscultation and percussion Cardiac Exam: - regular rate & rhythm, no murmur, gallop or rub - normal S-1, normal S-2 Abdomen: abdomen soft, non-tender, no abnormal masses, no hepatosplenomegaly, no abdominal bruit, no femoral bruit Musculoskeletal: no gait disturbance, no joint inflammation, no deforming arthritis Extremities: no edema, no cyanosis, pulses intact 2+/4 Neuro: grossly normal exam Data: Echocardiogram November 11, 2023, [facility] Moderate left ventricular hypertrophy, EF 55 dash 60% Moderate left atrial and severe right atrial dilation Mild right ventricular dilation Normally functioning TAVR Moderate mitral insufficiency and severe tricuspid insufficiency Estimated systolic pulmonary pressure 40 mm Hg Not significantly changed from November 04, 2022 ASSESSMENT: 83 year old year old female With complex constellation of cardiac issues as above hospitalized with lightheadedness dizziness and hypotension/hypovolemia. Atrial flutter observed on admission and likely persistent Blood pressures improved since discontinuation of Entresto PLAN: 1. Atrial flutter with controlled ventricular response [...] continue daily weights. Urged nocturnal oxygen usage DISPOSITION: Return 3 months Rajesh Jordan MD Cardiology, [address] [address] I spent a total of 40-54 minutes (exact time 50 mins) on the date of service in preparation, delivery, and documentation of the care provided to Nereida Stephen excluding any time spent in the performance of separately billed services. documented in this encounter Nursing Notes * Dorita Marie LPN - 11/16/2023 10:32 AM EDT Examination Room: 14 Name: Nereida Stephen Date of : 1940 Reason for Visit: Follow up Problems/Concerns: Feeling better since hospital d/c Interim Hosp(s): 11/10/23 hypotension Chest Pain/SOB: denies MyChart Discussed: ALREADY ACTIVE [...] PM EDT Office Visit General Internal Medicine [facility] [address] [facility] [place] [address] Maxwell Sellers MD [address] [address] [place] [address] 03/02/2024 10:00 AM EDT Office Visit Cardiology, [facility] [address] [place] [address] Rajesh Jordan MD [address] [place] [address] 05/03/2024 9:00 AM EST Office Visit Neurology [facility] [address] [facility] [address] Ellen Carias PA-C [address] [place] [address] Scheduled Orders Name Type Priority Associated Diagnoses Orde r Schedule EXTERNAL EKG 2 TO 7 DAYS Holter Routine Typical atrial flutter (HCC) Expected: 11/16/2023 (Approximate), Expires: 11/15/2024 Scheduled Procedures Name Priority Associated Diagnoses Date/Ti [...] encounter Medical Devices Implanted Type Area Manager Inventory Control Device Identifier Shelf Expiration Date Model / Serial / Lot Valve Ce Aortic 21mm [id number] - [id number] Implanted:Qty : 1 on 04[place]17/2010 [place] [facility] [place] - Non Human N/A: Chest [employer] 04/17/2010 [id number] / Patch Pericard 8x14cm [id number] - [id number] Implanted:Qty : 1 on 04/17/2010 [place] [facility] Tissue - Non Human N/A: Chest [employer] 12/05/2014 [id number] / / [id number] [employer] 6 [id number] - [id number] Implanted:Qty : 4 on 04/17/2010 [place] [facility] N/A: Chest DO NOT USE 06/17/2014 [id number] / / [id number] documented as of this encounter Visit Diagnoses Diagnosis Typical atrial flutter (HCC)- Primary Atrial flutter documented in this encounter Advance Directives Documents on File Type Date Recorded Patient Project Manager Senior Expl 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 Care Teams Independent Living Advisor Relationship Specialty Start Date End Date Maxwell Sellers MD [address] [facility] [place] [address] PCP - General Internal Medicine 01/03/21 documented as of this encounter"
[2024-05-13] MEDS: LEVOTHYROXINE SODIUM 112 MCG TABLET PO SCH (05:35)
[2024-05-13 06:57] LABS: Hematocrit (blood only) 33.5 % (37.0-47.0); Hemoglobin 10.9 g/dl (12.0-16.0); Mean Corpuscular Hemoglobin 31.4 pg (25.0-34.0); Mean Corpuscular Hgb Conc 32.5 g/dL (32.0-36.0); Mean Corpuscular Volume 96.5 fL (80.0-100.0); Mean Platelet Volume 9.8 fL (9.4-12.4); Platelet Count 129 K/uL (130-400); RDW Coefficient of Variation 16.1 % (11.5-14.5); RDW Standard Deviation 56.9 fL (36.4-46.3); Red Blood Count 3.47 M/uL (4.20-5.40); White Blood Count 4.28 K/ul (4.8-10.8)
[2024-05-13 07:11] LABS: Albumin Globulin Ratio 1.2 (0.9-2); Albumin Level 3.5 gm/dl (3.4-5.0); BUN Creatinine Ratio 34.6 (10-20); Bilirubin,Total 1.9 mg/dl (0.2-1.0); Calcium 8.7 mg/dl (8.6-10.3); Creatinine Clr Calc Pharmacy 51.3 ml/min; Potassium 4.2 mmol/L (3.5-5.1); Total Protein 6.5 gm/dl (6.0-8.3)
--- OUTSIDE RECORDS SUMMARY | 2024-05-13 09:01 | External Medical Summary | Summary of Care ---
Author Name Unknown Organization [facility] Address [address] [place] [address] Phone [phone] Care Team Providers Care Dye House Supervisor Name Role Phone Leyda Ahn MD Primary Care Provider [phone] Reason for Visit * Reason Comments Acute Encounter Details Date Type Department Care Team (Late st Contact Info) Description 05/12/2024 10:20 AM EST [facility] [place] [address] [place] [address] Maxwell Sellers MD [address] [place] [address] Bleeding*; Leg wound, right, initial encounter; Thrombocytopenia (HCC) Allergies Active Allergy Reactions Criticality Noted Date Comments Pantoprazole 01/29/2022 Itchiness, rash Penicillins Hives 01/13/2003 hives documented as of this encounter (statuses as of 05/12/2024) Medications Acetaminophen ER 650 MG Oral Tablet [...] as needed 25 mL 1 4 Active Zoster Vac Recomb Adjuvanted 50 [...] meds)--dec 02/03/2024, lab 10 wks. 90 Tablet 4 Active Hydrocortisone 2.5 % External CreamIndications:E czematous skin lesions,Dry skin Apply topically to affected area 2 times a day. To affected area. On Rt upper back for 1 week or till better then as needed 30 g 1 4 Active Hospital, Clinic, or Other Facility Administered Medication Ordered Dose Route Frequency Start Date End Date Status albuterol sulfate (PROVENTIL) (2.5 MG/3ML) 0.083% inhalation solution 2.5 mgIndications:COPD, severity to be determined (HCC),Chondrosarcoma (HCC),Pulmonary hypertension (HCC) 2.5 mg NEBULIZER PRN 01/07/2019 Active documented as of this encounter (statuses as of 05/12/2024) Active Problems Problem Noted Date Diagnosed Date [...] as of this encounter (statuses as of 05/12/2024) Resolved Problems Problem Noted Date Diagnosed Date Resolved Date Permanent atrial fibrillation 03/28/2019 10/28/2021 Chronic systolic CHF (conges tive heart failure) 03/28/2019 01/03/2021 CHF with right heart failure 03/21/2019 03/12/2022 Atherosclerosis of aorta 11/16/2018 Carpal tunnel syndrome 03/28/201302/10 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 [employer] Other*[id number] 04/08/2010 07/01/2016 Overview (04/30/2010): Study Titile: Genomics Markers for Patients with Cardiovascular Disease Project # [id number] PI: Aleisha Loredo MD Please call [phone] with study related questions AORTIC VALVE STENOSIS [...] well after 03/29 surgical repair LOC PRIM [id number] 05/09/2003 10/10/2016 Esotropia 01/13/2003 02/10/2017 Overview (01/13/2003): /03- R sixth nerve palsy- improving MRI/MRA negative Alopecia 01/13/2003 02/10/2017 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/2002 09/20/2018 Overview (06/16/2002): not bx proven DIVERTICULOSIS OF COLON 06/16/200202/22 Menopause 06/16/2002 10/23/2021 Abnormal weight gain 06/16/2002 017 documented as of this encounter (statuses as of 05/12/2024) Immunizations Name Administration Dates Next Due COVID-19 mRNA, LNP-s, No Pre serve, 2-Dose Series (Moderna) 08/30/2020,07/25/2020 COVID-19, MRNA-LNP, PF, 30 M CG/0.3 mL, 12 YRS AND ABOVE, IM [facility] 09/29/2023 COVID-19, mRNA, LNP-s, PF, B ooster, 100mcg/0.5mg (Moderna) 05/13/2021 Covid-19, Mrna, Lnp-s, Pf, B ivalent, 30 Mcg, IM, 12 yrs and above ([employer]) 03/18/2022 PPD 09/27/2022,09/19/2022,02/14/2011 Pneumococcal Conjugate Vacc, 13 [...] Date 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 Not on file Not on file Not on file documented as of this encounter Last Filed Vital Signs Vital Sign Reading Time Taken Comments Blood Pressure 108/72 05/12/2024 9:50 AM EST Pulse - - Temperature 36.8 C (98.3 F) 05/12/2024 9:50 AM ES T Respiratory Rate - - Oxygen Saturation - - Inhaled Oxygen Concentration - - Weight 62.4 kg (137 lb 8 oz) 05/12/2024 9:50 AM EST Height - - Body Mass Index 21.53 05/11/2024 10:40 AM EST documented in this encounter Progress Notes * Maxwell Sellers MD - 05/12/2024 10:07 AM EST Chief Complaint Patient presents with Acute SUBJECTIVE: Nereida Stephen is a 84 year old female with PMH as below who presents for acute. 04.30.24 has small "pinhole" lesion right leg, bleed "3 cups" per daughter, soaked carpet, got to stop. Last night bled again, soaked mattress. Got to stop with compression. Nereida has no pain, falls, or purulence. Is on ASA 81 mg, h/o low platelets. No other bleeding. 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) Acquired hypothyroidism Chondrosarcoma (HCC) History of transcatheter [...] Venous insufficiency Chronic rhinitis Atrial flutter (HCC) Thrombocytopenia (HCC) Elevated bilirubin Hemangioma of liver Osteopenia of necks of both femurs Current Outpatient Medications Medication Sig Dispense Refill [...] better then as needed 25 mL 1 Zoster Vac Recomb Adjuvanted 50 MCG/0.5ML Intramuscular Suspension Reconstituted (Shingrix) Inject 0.5 mL into a large muscle now and repeat dose in 60 to 180 days 1 Each 1 Digoxin 125 MCG Oral Tablet (Lanoxin) Take one three days per week 36 Tablet 3 Gabapentin 100 MG Oral Capsule (Neurontin) Take 1 tab daily, 2nd as needed per pt 04/17 Cetirizine HCl 10 MG Oral Tablet (ZyrTEC Allergy) Take 1 Tablet by mouth in the morning. Furosemide 40 MG Oral Tablet (Lasix) 20 mg thu,thu,Thursday from 04/05/2024 1 Tablet 0 B-12 1000 MCG Oral Tablet 1 tab daily, start 04/05/2024 Levothyroxine Sodium 100 MCG Oral Tablet (Levoxyl) Take 1 Tablet by mouth in the morning. (at least30 min prior to breakfast or other meds)--02/03/2024, lab 10 wks. 90 Tablet 0 Hydrocortisone 2.5 % External Cream Apply topically to affected area 2 times a day. To affected area. On Rt upper back for 1 week or till better then as needed 30 g 1 Current Facility-Administered Medications Medication Dose Route Frequency Provider Last Rate Last Admin albuterol sulfate (PROVENTIL) (2.5 MG/3ML) 0.083% inhalation solution 2.5 mg 2.5 mg Nebulizer PRN Kelsey Bowles, 2.5 mg at 11/12/21 1153 Review of patient's allergies indicates: Allergen Reactions Pantoprazole Itchiness, rash Penicillins Hives hives Health Maintenance Due Topic Date Due DXA Scan 08/10/2023 Colonoscopy 12/26/2023 COVID-19 Vaccine ( season) 2024 Adult Wellness Visit 05/07/2024 Depression Screening 05/15/2024 ROS: CONSTITUTIONAL: No fevers, sweats, or chills EXTREMITIES: as per hpi SKIN/INTEGUMENTARY: No itching ALL OTHER SYSTEMS NEGATIVE I reviewed social, PMH, PSH, and family history and updated where needed. 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 Tobacco Use Smoking status: Former Current packs/day: [...] Resource Strain: Low Risk (09/11/2022) [facility] Overall Financial Resource Strain (CARDIA) Difficulty of Paying Living Expenses: Not hard at all Food Insecurity: No Food Insecurity (09/11/2022) Received from [facility], [facility] Hunger Vital Sign Worried About Running Out of Food in the Last Year: Never true Ran Out of Food in the Last Year: Never true Transportation Needs: No Transportation Needs (09/11/2022) Received from [facility], [facility] PRAPARE - Transportation Lack of Transportation [...] performed by YOLIS CHEATHAM at CARDIAC LABS [facility] COLONOSCOPY 02/26/2005 Colonoscopy done at [facility] by Dr. Hilliard COLONOSCOPY THRU STOMA, W/BIOPSY 02/2009 chronic colitis with moderate activity, sm bowel ileitis, f/u in office COLONOSCOPY W/ BIOPSY (RECTUM) 11/15/2007 bx's taken COLONOSCOPY W/ BIOPSY (RECTUM) 02/14/2011 inflammation in colon- await path COLONOSCOPY, DIAGNOSTIC (RECTUM) 09/12/2014 normal bx, repeat 2 yrs/COLONOSCOPY FLEXIBLE PROXIMAL DIAGNOSTIC performed by Eduar Beckham MD at ENDOSCOPY [facility] COLONOSCOPY, DIAGNOSTIC (RECTUM) 09/24/2018 diverticulosis, repeat 3 yrs / [facility] COLONOSCOPY, DIAGNOSTIC (RECTUM) 12/25/2021 chronic active colitis / INPT [facility] EGD, FLEXIBLE, DIAGNOSTIC 09/24/2018 gastritis / [facility] EGD, FLEXIBLE, DIAGNOSTIC 12/25/2021 sm hiatal hernia / INPT [facility] INFORMATION 04/17/2010 [employer] Aortic Valve Model# 3000TFX-21 MISCELLANEOUS ORDER ([facility] ONLY) 05/2104 Gamma Knife for meningioma at [facility] MISCELLANEOUS ORDER ([facility] ONLY) N/A 05/04/2017 redo of chest chondrosarcoma at [facility] NECK/CHEST DEEP TUMOR REMOVAL, UNDER 5 CM 04/17/2010 EXCISION TUMOR DEEP NECK THORAX performed by DEVORAH CARSON at OR [facility] NONE 07/2004 thyroidectomy in [place] PARTIAL COLECTOMY W/ANASTOMOSIS 10/2001 Colectomy Partial rectosigmoid resection with RUTH/BSO and incidental appy REMOVAL OF APPENDIX 10/2001 Appendectomy REMOVAL OF OVARY/OVIDUCT(S) 10/2001 Ovary/Tube(S) Removal REMOVAL OF THYROID GLAND 2004 Thyroidectomy REPAIR INITIAL INCISIONAL HERNIA 04/14/2005 [facility] Surgi-Center Dr. Hilliard REPAIR INITIAL INCISIONAL OR VENTRAL HERNIA; REDUCIBLE 01/08/2004 Lower abdominal hernia repair with mesh [facility] Surgi[facility] Dr. Hilliard REPLACE AORTIC VALVE, OPEN FEMORAL 2022 [facility] REPLACEMENT AORTIC VALVE, BYPASS WITH PROSTHETIC VALVE 04/17/2010 REPLACEMENT AORTIC VALVE performed by SAIDA PARKINSON at OR [facility] TOTAL HYSTERECTOMY 10/2001 RUTH (Total Abdominal Hysterectomy) Family History Problem Relation Name Age of Onset Heart Disorder Mother (dec) Lung Disorder Mother Heart Disorder Father (dec) Heart disease Brother Other (Paraplegia due to an accident) Brother Cancer Aunt (Unspecified) paternal;stomach Cancer Aunt (Unspecified) maternal half sister; breast OBJECTIVE: PHYSICAL EXAM: BP 108/72 (BP Site: Left Arm, BP Position: Sitting, BP Cuff Size: Regular) | Temp 98.3 F (36.8 C) (Tympanic) | Wt 137 lb 8 oz (62.4 kg) | BMI 21.53 kg/m | BSA 1.72 m General: alert, healthy, and no distress Extremities: no clubbing, no cyanosis, trace edema with redness bilaterally, small lesion right anterior ruano with brisk bleed once bandaged removed, compressed and bleeding stopped. No pain, warmth Neuro: stands on own, walks with cane Latest Reference Range & Units 04/04/24 13:22 SODIUM 135 - 146 mmol/L 138 POTASSIUM 3.5 - 5.1 mmol/L 5.3 (H) CHLORIDE 98 - 107 mmol/L 99 CO2 22 - 32 mmol/L 29 BUN 6 - 20 mg/dL 23 (H) CREATININE 0.5 - 1.0 mg/dL 0.7 EGFR >=60 mL/min 79 ANION GAP 7 - 15 mmol/L 10 GLUCOSE 70 - 120 mg/dL 67 (L) CALCIUM 8.4 - 10.2 mg/dL 9.5 Protein 6.0 - 8.3 g/dL 7.2 TSH 0.27 - 4.20 uIU/mL 1.59 TSH WITH FREE T4 IF INDICATED Rpt CBC Rpt ! WBC 4.00 - 10.80 K/uL 4.44 RBC 3.85 - 5.15 M/uL 4.14 HGB 12.0 - 15.3 g/dL 12.5 HCT 36.0 - 45.2 % 40.5 MCV 81.5 - 97.5 fL 97.8 MCH 27.0 - 34.0 pg 30.2 MCHC 32.0 - 36.0 g/dL 30.9 RDW 11.5 - 15.5 % 20.0 PLT 140 - 400 K/uL 107 (L) MPV 6.6 - 11.1 fL 9.8 CBC WITH WBC DIFFERENTIAL Rpt ! Absolute Neutrophils 1.80 - 7.70 K/uL 2.57 Absolute Lymphocytes 1.00 - 4.80 K/ul 1.16 Absolute Monocytes 0.00 - 1.10 K/uL 0.62 Absolute Eosinophils 0.00 - 0.70 K/uL 0.01 Absolute Basophils 0.00 - 0.20 K/uL 0.08 Albumin 3.8 - 5.0 g/dL 3.9 AST 10 - 35 U/L 49 (H) ALT 10 - 35 U/L 16 Alkaline Phosphatase 35 - 130 U/L 124 Bilirubin, Total <=1.2 mg/dL 1.6 (H) Bilirubin, Direct 0.0 - 0.3 mg/dL 0.6 (H) Digoxin Level 0.5 - 1.1 ng/mL 0.7 VASC DUPLEX CAROTID BILAT Rpt (H): Data is abnormally high (L): Data is abnormally low !: Data is abnormal Rpt: View report in Results Review for more information 04.15.24 heme: Mild Thrombocytopenia: 84 y/o female referred for [...] observation with repeat CBCd in three months. ASSESSMENT: (R58) Bleeding (primary encounter diagnosis) (S81.801A) Leg wound, right, initial encounter (D69.6) Thrombocytopenia (HCC) PLAN: Bleeding (Primary) Brisk, persistent, looks like lot of blood loss via pictures Suggest er for stat labs and possible intervention to stop bleeding, not sure if bleeding vessel Family agree, daughter will take May need to stop asa Called ER to expect patient Leg wound, right, initial encounter As above Thrombocytopenia (HCC) As above Follow Up: Return if symptoms worsen or fail to improve. Maxwell Sellers MD\\ documented in this encounter Nursing Notes * Heaven Mckoy CMA - 05/12/2024 9:48 AM EST Patient presents today due to pin hole sized open wound on her right leg that was bleeding profusely this morning and through the night last night. Patient also has a profuse bleed on 04/30/24 from the same area. She does have significant edema and redness to the area. Lasix was given this morning to try to reduce the swelling. She does not recall any injury to the area of her leg to have caused the wound or the bleeding. documented in this encounter Plan of Treatment Upcoming Encounters Date Type Department Care Team (Late st Contact Info) Description 05/26/2024 10:20 AM EST Office Visit Rheumatology [facility] [address] [facility] [place] [address] Jose Johnston MD [address] [facility] [place] [address] 05/30/2024 10:30 AM EST Office Visit Cardiology, [facility] [address] [place] [address] Rajesh Jordan MD [address] [facility] [place] [address] 08/12/2024 1:00 PM EDT Office Visit General Internal Medicine [facility] [address] [facility] [place], [place] [address] Leyda Ahn MD [address] [facility], [place] [address] 08/17/2024 9:40 AM EDT Office Visit Gastroenterology, [facility] [address] [facility] [place] [address] Eduar Beckham MD [address] [facility] [place] [address] 10/20/2024 2:30 PM EDT Office Visit Hematology/Oncology [facility] [address] [facility] [place], [place] [id number] Ghada Whaley CRNP [address] [place] [address] Scheduled Procedures Name Priority Associated Diagnoses Date/Ti [...] ASSESSMENT COMPLETED IN PAST YEAR FOR COPD 05/11/2025 05/11/2024 DTap/Tdap Vaccines (3 - Td or Tdap) [...] this encounter Medical Devices Implanted Type Area Hand Tube Winder Device Identifier Shelf Expiration Date Model / Serial / Lot Valve Ce Aortic 21mm [id number] - [id number] Implanted:Qty : 1 on 04/17/[address] [facility] Tissue - Non Human N/A: Chest [employer] 04/17/2010 3000TFX-[id number] / [id number] / Patch Pericard 8x14cm [id number] - [id number] Implanted:Qty : 1 on 04/17/[address] [facility] Tissue - Non Human N/A: Chest [employer] 12/05/2014 [id number] / / [id number] S[employer] 6 [id number] - [id number] Implanted:Qty : 4 on 04/17/[address] 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 Care Teams Dye House Supervisor Relationship Specialty Start Date End Date Leyda Ahn MD [address] [place] [address] PCP - General Internal Medicine 02/02/24 documented as of this encounter
--- NOTE | 2024-05-13 10:19 | Cardiology Consultation ---
Date of Consultation May 13, 2024 Assessment & Plan (1) Leg wound, right: (2) Chest tightness: (3) Atrial flutter with rapid ventricular response: (4) Heart failure, diastolic, with acute decompensation: (5) S/P TAVR (transcatheter aortic valve replacement): Plan Right lower extremity wound/bleeding. As per Hospitalist. Chest tightness. Atypical. Chronically elevated troponin. EKG without acute change. Cardiac catheterization last on March 03, 2022 with mild luminal irregularities only. Patient not concerned, uninterested in further evaluation. Recommend medical management. Mild acute decompensated diastolic congestive heart failure. Chronic right heart failure. Patient received 20 mg IV furosemide on admission. Recommend utilization of oral furosemide 2-3 days per week. History of hyponatremia secondary to dehydration and alcohol consumption noted Persistent atrial flutter with mildly elevated ventricular rates. Increase metoprolol succinate to 25 mg/day. Continue digoxin 125 mcg MWF. Patient with multiple contraindications to anticoagulation. Aortic valve disease. Status post valve in valve TAVR on September 12, 2022, course complicated by LV thrombus, prescribed IV heparin transiently with resultant retroperitoneal bleeding; LV thrombus resolved. History of chondrosarcoma of the sternum and chest, status post partial resection with redo surgery in April 2017, resection of mid lower sternum and right costal cartilage with anterior chest wall reconstruction with mesh and pectoral flap Supervising Physician Co-Signing Physician Notes I have personally performed a history and physical examination on the patient. I have reviewed the advance practitioner's documentation, and I agree with, and take responsibility for the plan of care. 84-year-old female presenting to the ER with right lower extremity wound/bleeding. Notes chronic, atypical chest discomfort and dyspnea on exertion. History of normal cardiac catheterization February 2022 and TAVR 2022. Evidence of mild hypervolemia on exam. She received 20 mg of IV furosemide on admission. Recommend furosemide 20 mg 2- 3 days/week. She will require follow-up lab testing, (basic metabolic panel) due to history of hyponatremia and dehydration/alcohol consumption. Agree with gentle titration of Toprol-XL to improve rate control. Continue current dose of digoxin. No further inpatient cardiac testing or intervention recommended at this time. Outpatient cardiology follow-up in 2 to 4 weeks. Judd Fontenot DO, [facility] History of Present Illness Reason for Consultation: Chest pain, rule out ACS, AVR x 2 history Requesting Physician: [facility] Hospitalist Service, Estefani Attending Physician: [facility] Hospitalist Service, Dr. Kamar Mathis MD History of Present Illness Nereida Stephen is a complex 84-year-old female who is being seen at the request of [facility] hospitalist, evaluation of chest discomfort, rule out ACS "I want to go home. I got a little pinhole opening (right leg) and it started to bleed, and it bled a lot. I could not get it to stop. I guess I did not try hard encough." Initially evaluated as an acute visit at the [facility] on May 12, 2024 due to right lower extremity bleeding. Referred to the [facility] ER on 05/12/2024 due to ongoing bleeding. Gelfom applied in the ER with control of the bleeding. ROS on admission notable for chest tightness and chronic dyspnea. The quality of the pain is described as a tightness. The pain is located across the entire anterior chest The pains occurs radoonly. When the pain occurs, it's duration is up to 30 minutes. The pain does not radiate. The symptoms occur occasionally without rhyme or reason Associated symptoms described are not described. The pattern of symptoms has been stable for an unknown period of time. Precipitating factors are not described by the patient. Factors which relieve the discomfort are not described by the patient, ? inhaler and oxygen. Data: - EKG on presentation revealed atrial flutter with ventricular rate of 105 bpm, nonspecific STT wave abnormality. - EKG this morning is technically limited in quality, also appearing to show atrial flutter with a ventricular rate of 106 bpm. - Review of the patient's continuous lunchroom monitor reveals typical atrial flutter with heart rates around 100 to 110 bpm. - High-sensitivity troponin chronically elevated, 17.8 -> 17.9 -> 15.7 pg/mL this admission - Chest x-ray without acute process - Hemoglobin 10.9, down from 12 g/dL yesterday. Platelet count 129K - Venous duplex negative for DVT Problem list Mixed aortic valve disease, and AI Status post aortic valve replacement in March of 2010, receiving a 21 mm Magna bioprosthesis Severe prosthesis stenosis status post TAVR valve in valve on 09/12/22 at [facility]. LV thrombus noted during TAVR case with patient started on heparin, developing a retroperitoneal bleed requiring discontinuation. LV thrombus was resolved on repeat echo and no anticoagulation therapy was given on discharge No coronary disease by preoperative cardiac catheterization, 2009. Repeat cardiac catheterization at [facility] showing mild luminal irregularities of the coronary anatomy, 03/03/2022 Chondrosarcoma of the sternum and chest, status post partial resection with redo surgery April 2017 with resection of the mid lower sternum and right costal cartilage with anterior chest wall reconstruction with mesh and pectoral flap Status post meningioma resection via gamma knife, May 2014 no growth on follow-up 2016 Paroxsymal/Pesistent Atrial flutter. Not on chronic anticoagulation due to bleeding complications Carotid artery occlusion, right. COPD Dilated right heart structures with moderate pulmonary hypertension Nocturnal hypoxemia treated with supplemental oxygen, 2 L/min Mechanical fall with left tentorium subdural hematoma identified December 28, 2018 History of chronic low back pain and spinal stenosis, prior epidural injections. History of ulcerative colitis/diverticulosis. Hypothyroidism B12 deficiency History of hyponatremia secondary to dehydration and alcohol consumption Allergies Allergy/AdvReac Type Severity Reaction Status Date / Time pantoprazole Allergy Intermediate ITCHY RASH Verified 05/12/24 16:41 Penicillins Allergy Intermediate HIVES Verified 05/12/24 16:41 Home Medications Medication Instructions Recorded Confirmed Type acetaminophen 650 mg 2 tab PO BID PRN Pain 04/12/18 05/12/24 History tablet,extended release (Tylenol Arthritis Pain) levothyroxine 112 mcg capsule 100 mcg PO QAM 04/12/18 05/12/24 History metoprolol succinate 25 mg 25 mg PO QAM 11/12/21 05/12/24 History tablet,extended release 24 hr Oxygen Home 12/04/21 05/12/24 History mesalamine 1.2 gram tablet,delayed 2.4 g PO QAM 02/19/22 05/12/24 History release aspirin 81 mg tablet,delayed 81 mg PO DAILY 11/10/23 05/12/24 History release cyanocobalamin (vitamin B-12) 1,000 mcg IM Q4WK 11/10/23 05/12/24 History 1,000 mcg/mL injection solution cetirizine 10 mg tablet (Zyrtec) 10 mg PO DAILY 05/12/24 05/12/24 History ferrous sulfate 325 mg (65 mg 325 mg PO DAILY 05/12/24 05/12/24 History iron) tablet (Iron (ferrous sulfate)) furosemide 20 mg tablet 40 mg PO Q2D 05/12/24 05/12/24 History umeclidinium 62.5 mcg-vilanterol 1 inh inhalation QAM 05/12/24 05/12/24 History 25 mcg/actuation powdr for inhalation (Anoro Ellipta) vitamin B12 1,000 mcg-folic acid 1 tye sublingual DAILY 05/12/24 05/12/24 History 400 mcg sublingual lozenge digoxin 125 mcg (0.125 mg) tablet 125 mcg PO 3XWK 05/13/24 05/13/24 History Patient History Medical History GERD (gastroesophageal reflux disease) Hx of sarcoma of bone SURGERY ONLY Poor historian Acute on chronic diastolic heart failure due to valvular disease Carotid artery occlusion NO SURGERY ON CAROTID Crohns disease Spinal stenosis Osteoarthritis Cardiac murmur FOLLOWS WITH Group [employer] CARDS Hyperlipidemia Former smoker Surgical History H/O knee surgery LEFT History of colonoscopy History of tooth extraction History of tonsillectomy X 2 S/P aortic valve replacement 12+ YEARS AGO *[facility] "NEEDS REPAIRED" History of thoracic surgery SARCOMA REMOVED History of appendectomy Family History Mother Coronary heart disease Father Coronary heart disease Other No family history of adverse response to anesthesia Social History Smoking Status: Never smoker Second Hand Exposure: No; Do You Dip or Chew Tobacco: No; Hx Alcohol Use: Yes Alcohol type: beer Alcohol type Comment: 2 reagan lights a day Hx Substance Use: No Preferred Language: Danish Communication Ability: Effective Machine Compositor Required: No Beliefs That Will Affect Care: None Current Living Situation: Alone Current Living Situation Comment: Independent, still drives Feels Safe at Home: Yes Safety Concerns: Feels Safe At This Time Assistive Devices: Oxygen - at Night and Walker Review of Systems Review of Systems: Complete Review of Systems is as stated above, negative, or noncontributory. Physical Exam Physical Exam: General: Alert and oriented x 3. No acute distress Head: Normocephalic, no masses, lesions, tenderness or abnormalities Eyes: conjunctiva are pink and non-injected, sclera clear Throat: Petechiae on upper palate Neck: + JVD. + Bilateral carotid bruits Lungs: Diminished. Clear. No wheeze. No rales. Cardiac Exam: Regular, 110 bpm. Grade 2/6 systolic murmur. Right sided heave. No diastolic murmur. Blood pressures on my evaluation were 104/62 and 106/60 Abdomen: + BS. Nontender. No organomegaly. Extremities: Stasis changes. Mild peripheral edema. Dressing not removed from right lower extremity. Neuro: grossly normal exam Results & Data Vital Signs (Past 12 Hours) Vital Signs Temp Pulse Pulse Resp BP Pulse Ox O2 Del Method 05/13/24 10:15 97/66 L 05/13/24 09:48 106 H 97/63 L 05/13/24 07:13 36.5 C 106 H 18 103/64 93 Room Air 05/13/24 04:00 36.3 C L 106 H 18 136/84 93 Room Air 05/12/24 22:55 108 H 05/12/24 22:26 36.4 C L 110 H 20 107/73 94 Room Air Laboratory Results Cardiac Enzymes 05/12/24 05/12/24 05/12/24 Range/Units 11:00 12:17 14:28 AST 42 H (13-39) U/L Troponin I High Sens 17.8 H 17.9 H (0-14) pg/ml 05/12/24 05/13/24 Range/Units 20:18 06:06 AST 30 (13-39) U/L Troponin I High Sens 15.7 H (0-14) pg/ml Coagulation 05/12/24 Range/Units 11:00 PT 12.8 H (9.0-12.0) Seconds APTT 27 (21-31) Seconds CBC 05/12/24 05/13/24 Range/Units 11:00 06:06 WBC 4.79 L 4.28 L (4.8-10.8) K/ul RBC 3.85 L 3.47 L (4.20-5.40) M/uL Hgb 12.0 10.9 L (12.0-16.0) g/dl Hct 38.0 33.5 L (37.0-47.0) % Plt Count 140 129 L (130-400) K/uL Neut # (Auto) 3.30 (1.40-6.50) K/uL Lymph # (Auto) 0.87 L (1.20-3.40) K/uL Yell # (Auto) 0.56 (0.11-0.59) K/uL Eos # (Auto) 0.00 (0.00-0.50) K/uL Baso # (Auto) 0.04 (0.00-0.20) K/uL Comprehensive Metabolic Panel 05/12/24 05/13/24 Range/Units 11:00 06:06 Sodium 136 138 (136-145) mmol/L Potassium 4.4 4.2 (3.5-5.1) mmol/L Chloride 99 100 (98-107) mmol/L Carbon Dioxide 31 31 (21-32) mmol/L BUN 30 H 27 H (6-23) mg/dl Creatinine 0.78 0.78 (0.6-1.2) mg/dl Glucose 92 92 (70-99(Fasting)) mg/dl Calcium 9.4 8.7 (8.6-10.3) mg/dl AST 42 H 30 (13-39) U/L ALT 12 9 (7-52) U/L Alkaline Phosphatase 108 H 87 (34-104) U/L Total Protein 7.5 6.5 (6.0-8.3) gm/dl Albumin 4.4 3.5 (3.4-5.0) gm/dl Intake and Output 05/12/24 05/13/24 05/13/24 22:59 06:59 14:59 Intake Total 840 / 840 0 840 Balance 840 / 840 0 840 Intake: Oral 840 / 840 0 840 Other: # Unmeasured Voids 1 1 Weight 61 kg 64 kg Weight Measurement Method Built in [facility]
[2024-05-13 11:02] VITALS: BP 101/68; RESP 19; TEMP 97.5; O2SAT 95
[2024-05-13] MEDS: ASPIRIN 81 MG ECTAB PO SCH (11:08)
[2024-05-13] MEDS: METOPROLOL SUCC 25MG EXT REL TAB PO SCH (11:08)
[2024-05-13] MEDS: ACETAMINOPHEN 325 MG TAB PO PRN (11:08)
[2024-05-13 13:22] LABS: Hematocrit (blood only) 33.7 % (37.0-47.0); Hemoglobin 10.8 g/dl (12.0-16.0)
--- NOTE | 2024-05-13 14:50 | Discharge Summary ---
Discharge Summary Date of Service May 13, 2024 The patient is an 84-year-old female with a past medical history of AVR x 2, atrial flutter, chondrosarcoma, meningioma, COPD2 L as needed at home, SVT, hypothyroidism s/p thyroidectomy who presents to the ED on 05/12/2024 with complaints of a right lower extremity "pinhole "wound that she noticed originally on 04/30/2024. A pressure wound was placed and she did not have any further bleeding until today 05/12. Patient texted the [id number] at 6 AM, went to the doctor's office and when the pressure bandage was removed, the leg began spurting blood. The patient reports she noticed the blood while she was sleeping in the bed and reported feeling blood trickle down her leg. On arrival to the ER, Gelfoam was placed in the ER and the bleeding was controlled. At this time, the patient endorsed that she had some chest pain around 7 this a.m. and she forgot to wear her oxygen last night. Reported chest tightness developing at rest while she was sitting in her recliner. Her [id number] directed her to use her inhaler and place her oxygen on which improved the chest tightness. On exam, the patient's chest pain was resolved. The patient's labs are fairly unremarkable on arrival and initial troponin was 17, remain flat with trending troponins 15, no acute changes noted and telemetry was fairly unremarkable. The patient's chest x-ray was negative, her right lower extremity venous Doppler was negative for DVT The patient was seen by cardiology and they recommended increasing the patient's metoprolol dose to 25 mg daily for rate control and continuing her digoxin dose of 3 times a week. No further cardiac workup recommended at this time while inpatient. Patient will need to follow with cardiology within 2-4 weeks. The patient's labs/vitals are stable. She stable for discharge home today. She will need to follow with her PCP within 1 week of discharge. A referral was provided for vascular surgery in the event that the patient's right lower extremity wound continues to bleed. Continue wound care at home. Wound care nursing recommending kaltostat and omnifoam Principal Dx & Hospital Course #1 = Principal Diagnosis (1) Severe tricuspid regurgitation: (2) Atrial flutter with controlled response: (3) Atrial fibrillation with RVR: (4) Crohn disease: (5) Hypothyroidism: (6) COPD (chronic obstructive pulmonary disease): (7) History of thyroidectomy: (8) GERD (gastroesophageal reflux disease): Plan Assessment and plan: Chest pain, rule out ACS: EKG without acute changes, troponin flat, 17.817.9, chest pain-free now Recent echo in October 2023, will defer to cardiology for repeat Telemetry monitoring, consult cardiology, n.p.o. after midnight for possible stress test if indicated Trend troponins, recent echo showed EF 55-60%, LVH, TAVR, severe tricuspid regurg Monitor closely with extensive cardiac history Right lower extremity pinhole wound Bleeding resolved with Gelfoam, hemoglobin stable at 12 Consider further workup if bleeding continues Hx TAVR x 2/A flutter/SVT/CHF: Continue metoprolol/aspirin/Lasix Strict I&O, daily weights Hx hypothyroidism s/p thyroidectomy: Continue levothyroxine, check TSH Chronic hypoxic respiratory failure Hx COPD 2 L oxygen as needed as needed, not in acute exacerbation, albuterol as needed A total of 60 minutes was spent on chart review/reviewing diagnostic data/facilitating plan of care/discussion with consultants Full code DVT prophylaxis: SCDs, avoid AC with history of GI bleed/recent right lower extremity leading Notes For Next Care Provider Medication Changes From Visit increase metoprolol to 25 mg daily Admission HPI Per Admitting Provider The patient is an 84-year-old female with a past medical history of AVR x 2, atrial flutter, chondrosarcoma, meningioma, COPD2 L as needed at home, SVT, hypothyroidism s/p thyroidectomy who presents to the ED on 05/12/2024 with com plaints of a right lower extremity "pinhole "wound that she noticed originally on 04/30/2024. A pressure wound was placed and she did not have any further bleeding until today 05/12. Patient texted the [id number] at 6 AM, went to the doctor's office and when the pressure bandage was removed, the leg began spurting blood. The patient reports she noticed the blood while she was sleeping in the bed and reported feeling blood trickle down her leg. On arrival to the ER, Gelfoam was placed in the ER and the bleeding was controlled. At this time, the patient endorsed that she had some chest pain around 7 this a.m. and she forgot to wear her oxygen last night. Reported chest tightness developing at rest while she was sitting in her recliner. Her [id number] directed her to use her inhaler and place her oxygen on which improved the chest tightness. She denies the chest tightness radiating. Also reports some intermittent lightheadedness. Chest pain is now resolved on exam. Jennifer hter-in-law reports aspirin 81 mg was started about 2 weeks ago. The patient denies any coughing. Reports some chronic leg swelling and some ascites intermittently. On exam, right lower leg dressing in place clean dry and intact. The patient denies any recent respiratory illness. Denies any nausea/vomiting/diarrhea/fever/chills On arrival, Labs fairly unremarkable, initial troponin 17.8.repeat troponin 17.9, EKG without acute changes. Chest x-ray without acute findings right lower extremity Doppler negative for DVT The patient will be admitted for rule out ACS Admission Exam Per Admitting Provider On exam General: Thin elderly woman in no distress Eyes: PERRL, conjunctivae normal, not pale, anicteric sclerae, EOM intact bilaterally ENMT: External ear and nose normal, oropharynx normal Respiratory: Normal respiratory effort, no respiratory distress, lungs clear to auscultation, no crackles and no wheezes Cardiovascular: RRR S1 S2 Gastrointestinal (Abdomen): Abdomen is not distended, soft, non-tender to palpation, no guarding, no palpable hepatosplenomegaly, normal bowel sounds Musculoskeletal: Bilateral leg edema. Dressing over RLE Neurologic: Alert and oriented x 3, No focal weakness, sensation grossly intact Psychiatric: Euthymic affect Discharge Exam On exam General: Thin elderly woman in no distress Eyes: PERRL, conjunctivae normal, not pale, anicteric sclerae, EOM intact bilaterally ENMT: External ear and nose normal, oropharynx normal Respiratory: Normal respiratory effort, no respiratory distress, lungs clear to auscultation, no crackles and no wheezes Cardiovascular: RRR S1 S2 Gastrointestinal (Abdomen): Abdomen is not distended, soft, non-tender to palpation, no guarding, no palpable hepatosplenomegaly, normal bowel sounds Musculoskeletal: Bilateral leg edema. Dressing over RLE Neurologic: Alert and oriented x 3, No focal weakness, sensation grossly intact Psychiatric: Euthymic affect Constitutional WD/WN, vitals as above + cachectic and + underweight; + not appropriately hydrated Eyes PERRL, conjunctivae normal, anicteric sclerae ENMT external ear and nose normal, oropharynx normal Neck trachea midline, no thyromegaly Respiratory Auscultation: + diminished lung sounds Cardiovascular RRR, no murmur, no edema (+1 non pitting edema ble ) Gastrointestinal (Abdomen) normal bowel sounds, soft, nontender, no hepatosplenomegaly Musculoskeletal no cyanosis or clubbing, extremities motor strength 5/5 Skin no rashes, warm and dry (Right lower extremity dressing in place, Gelfoam, CDI) Neurologic PERRL, EOMI, accommodation nl, no face palsy, no dysarthria Psychiatric A+Ox3, euthymic affect Lymphatic no cervical or axillary lymphadenopathy Updated Medication List Medication Instructions Recorded Confirmed Type acetaminophen 650 mg 2 tab PO BID PRN Pain 04/12/18 05/12/24 History tablet,extended release (Tylenol Arthritis Pain) levothyroxine 112 mcg capsule 100 mcg PO QAM 04/12/18 05/12/24 History metoprolol succinate 25 mg 25 mg PO QAM 11/12/21 05/12/24 History tablet,extended release 24 hr Oxygen Home 12/04/21 05/12/24 History mesalamine 1.2 gram tablet,delayed 2.4 g PO QAM 02/19/22 05/12/24 History release aspirin 81 mg tablet,delayed 81 mg PO DAILY 11/10/23 05/12/24 History release cyanocobalamin (vitamin B-12) 1,000 mcg IM Q4WK 11/10/23 05/12/24 History 1,000 mcg/mL injection solution cetirizine 10 mg tablet (Zyrtec) 10 mg PO DAILY 05/12/24 05/12/24 History ferrous sulfate 325 mg (65 mg 325 mg PO DAILY 05/12/24 05/12/24 History iron) tablet (Iron (ferrous sulfate)) furosemide 20 mg tablet 40 mg PO Q2D 05/12/24 05/12/24 History umeclidinium 62.5 mcg-vilanterol 1 inh inhalation QAM 05/12/24 05/12/24 History 25 mcg/actuation powdr for inhalation (Anoro Ellipta) vitamin B12 1,000 mcg-folic acid 1 tye sublingual DAILY 05/12/24 05/12/24 History 400 mcg sublingual lozenge digoxin 125 mcg (0.125 mg) tablet 125 mcg PO 3XWK 05/13/24 05/13/24 History Hospital Stay Data Consultations 05/12/24 14:55 ED Decision to Admit Stat 05/12/24 17:42 Consult Cardiology Routine Diagnostic Imagining Performed 05/12/24 11:52 US leg [US venous doppler LE RT] Stat Pending Results Patient Have Any Pending Studies at Discharge: No Discharge Instructions Given to Patient (Per Discharging Provider) Please follow with cardiology within 2 weeks of discharge. Please follow with vascular within a month of discharge if bleeding continues. Please follow-up with PCP within a week of discharge. Wound care orders: Wound care nursing recommends kaltostat and covering with Optifoam for right lower extremity pinhole wound. Report back to the ED with worsening symptoms. Total Time Total Time Spent Total Time Spent (In Minutes): 60 Total Time Includes: Examination of the Patient, Discharge Planning, Medication Reconciliation, Communication With Other Providers and Other Supervising Physician Co-Signing Physician Notes Patient seen and examined by me, care coordinated with RAJAN Casey, pls refer to her note above for further detail. Pt presented w/ bleed from LE which was stopped in the ED. She was also seen by cardiology today as she presented with mild hypervolemia. Patient is feeling well and wishes to be discharged, she is to follow up with PCP, and cardiology. MD Delfina
[2024-05-13] MEDS: DIGOXIN 0.125 MG TAB PO ONE (15:04)
[2024-05-13 15:09] VITALS: PULSE 105
--- NOTE | 2024-05-14 12:37 | Electrocardiogram Report ---
Test Reason : Blood Pressure : */* mmHG Vent. Rate : 105 BPM Atrial Rate : 105 BPM P-R Int : 132 ms QRS Dur : 82 ms QT Int : 458 ms P-R-T Axes : * -31 266 degrees QTcB Int : 605 ms Sinus tachycardia Left axis deviation Nonspecific ST and T wave abnormality Prolonged QT Abnormal ECG When compared with ECG of 10-Nov-2023 17:17, Significant changes have occurred Confirmed by Malcolm Hendrix ([id number]) on 05/14/2024 12:37:03 PM Referred By: Confirmed By: Malcolm Hendrix
--- NOTE | 2024-05-14 12:41 | Electrocardiogram Report ---
Test Reason : Blood Pressure : */* mmHG Vent. Rate : 106 BPM Atrial Rate : 106 BPM P-R Int : 182 ms QRS Dur : 86 ms QT Int : 328 ms P-R-T Axes : 80 -43 104 degrees QTcB Int : 435 ms Poor data quality, interpretation may be adversely affected Sinus tachycardia Left axis deviation Nonspecific ST and T wave abnormality Abnormal ECG When compared with ECG of 12-May-2024 10:54, (unconfirmed) ST less depressed in Inferior leads ST no longer depressed in Anterior leads QT has shortened Confirmed by Malcolm Hendrix ([id number]) on 05/14/2024 12:41:07 PM Referred By: REFERRED SELF Confirmed By: Malcolm Hendrix
== END 2024-05-13 15:56 | disposition home or self-care (01) | DRG 292 ==
LOC: ED 10:25 → 2S 15:40 → SUATTDRO 15:40 → 2S 17:25
DX: Z79.899 Other long term (current) drug therapy; Z95.3 Presence of xenogenic heart valve; E86.0 Dehydration; Z88.0 Allergy status to penicillin; K51.90 Ulcerative colitis, unspecified, without complications; E89.0 Postprocedural hypothyroidism; Z87.891 Personal history of nicotine dependence; I07.1 Rheumatic tricuspid insufficiency; R18.8 Other ascites; I48.91 Unspecified atrial fibrillation; J96.11 Chronic respiratory failure with hypoxia; I50.33 Acute on chronic diastolic (congestive) heart failure; R07.89 Other chest pain; J44.9 Chronic obstructive pulmonary disease, unspecified; E53.8 Deficiency of other specified B group vitamins; Z88.8 Allergy status to other drugs, medicaments and biological substances; S81.831A Puncture wound without foreign body, right lower leg, initial encounter; Z79.82 Long term (current) use of aspirin; I48.92 Unspecified atrial flutter; K21.9 Gastro-esophageal reflux disease without esophagitis; X58.XXXA Exposure to other specified factors, initial encounter

== ENCOUNTER 2024-08-27 10:48 | Inpatient (IN) ==
--- OUTSIDE RECORDS SUMMARY | 2024-08-27 10:56 | External Medical Summary | Summary of Care ---
Author Name Unknown Organization [facility] Address [address] [place] [address] Phone [phone] Care Team Providers Care Molder Machine Tender Name Role Phone Leyda Ahn MD Primary Care Provider [phone] Reason for Visit * Reason Onset Date Comments Test Results 08/11/2024 Encounter Details Date Type Department Care Team (Late st Contact Info) Description 08/11/2024 Telephone General Internal Medicine [facility] [address] [place] [address] Leyda Ahn MD [address] [place] [address] Test Results Allergies Active Allergy Reactions Criticality Noted Date Comments Pantoprazole 01/29/2022 Itchiness, rash Penicillins Hives 01/13/2003 hives documented as of this encounter (statuses as of 08/26/2024) Medications Acetaminophen ER 650 MG Oral Tablet Extended Release 2 pill daily in AM & 2 pills in afternoon if needed 03/20/20 15 Active Clobetasol Propionate 0.05 % External SolutionIndicatio ns:Pruritic dermatosis of scalp,Scalp itch Apply topically to affected area 2 times a day. On scalp , use till better then as needed 25 mL 1 02/02/20 24 Active Cetirizine HCl 10 MG Oral Tablet (ZyrTEC Allergy)Indicatio ns:Chronic rhinitis Take 1 Tablet by mouth in the morning. 04/05/20 24 Active Digoxin 125 MCG Oral Tablet (Lanoxin)Indicati ons:Paroxysmal atrial flutter (HCC) Take 1 Tablet by mouth once a day on Thursday, Thursday, and Thursday only. Take one 3 days per week 05/16/20 24 Active Albuterol Sulfate HFA 108 (90 Base) MCG/ACT Inhalation Aerosol SolutionIndicatio ns:COPD, mild (HCC) Inhale 2 Puffs by mouth every 4 hours as needed for Cough, Shortness of Breath or Wheezing. 20.1 g 3 05/30/19 25 Active Metoprolol Succinate ER 25 MG Oral Tablet Extended Release 24 Hour (toPROL XL)Indications:Pa roxysmal atrial fibrillation (HCC) Take 1 Tablet by mouth in the morning. 90 Tablet 3 05/30/19 25 Active Aspirin 81 MG Oral Tablet Delayed Release Take one 3 days per week 05/30/19 25 Active Hydrocortisone 2.5 % External CreamIndications: Eczematous skin lesions,Dry skin Apply topically to affected area 2 times a day. To affected area. On Rt upper back for 1 week or till better then as needed 30 g 1 07/01/19 25 Active B-12 1000 MCG Oral TabletIndications :B12 deficiency 1 tab daily, start 04/05/2024--d ec to 4d/wk 07/06/2024 1 Tablet 07/06/19 25 Active Gabapentin 100 MG Oral Capsule (Neurontin)Indica tions:Idiopathic peripheral neuropathy,Spinal stenosis of lumbar region without neurogenic claudication Take 1 cap daily 90 Capsule 1 07/22/19 25 Active Mesalamine ER 0.375 GM Oral Capsule Extended Release 24 Hour (Apriso)Indicatio ns:Crohn's disease of large intestine without complication (HCC) Take 4 Capsules by mouth in the morning. 120 Capsule 12 08/03/19 25 Active Levothyroxine Sodium 100 MCG Oral Tablet (Levoxyl)Indicati ons:Acquired hypothyroidism TAKE 1 TABLET BY MOUTH IN THE MORNING. (AT LEAST 30 MIN PRIOR TO BREAKFAST OR OTHER MEDS) 90 Tablet 1 08/08/19 25 Active Furosemide 40 MG Oral Tablet (Lasix)Indication s:Chronic diastolic heart failure due to valvular disease (HCC),Pulmonary hypertension (HCC),Stenosis of prosthetic aortic valve, sequela,Typical atrial flutter (HCC),Bilateral leg edema,History of transcatheter aortic valve replacement (TAVR),Paroxysmal atrial fibrillation (HCC),Other ascites,Acute on chronic right-sided heart failure (HCC) 40 mg daily--inc 08/11/2024, stat lab 08/22/24 45 Tablet 1 08/12/19 25 Active oxygen IN GAS 2L/min(Oxygen ) continuous at night via nasal cannula. 08/12/19 25 Active oxygen IN GAS 2L/min(Oxygen ) continuous via nasal cannula. 1 Each 10/10/19 23 2024 Discontinued documented as of this encounter (statuses as of 08/26/2024) Active Problems Problem Noted Date Diagnosed Date Other ascites 08/22/2024 Acute on chronic right-sided heart failure 08/22 Chronic diastolic heart failure due to valvular disease 08/22/2024 Nocturnal hypoxia 08/22/2024 Chronic hypoxic respiratory failure, on home oxy gen therapy 07/24/2024 Chronic right-sided heart failure 07/24/2024 Bilateral leg edema 07/24/2024 Epigastric hernia 07/24/2024 Thrombocytopenia 04/05/2024 Elevated bilirubin 04/05/2024 Hemangioma of [...] fibrillation 09/15/2018 Right internal carotid occlusion 10/04/2017 History of resection of meningioma 12/23/2013 B12 deficiency 11/25/2011 History of transcatheter aortic valve replacemen t (TAVR) 04/29/2010 History of chondrosarcoma 03/18/2010 Acquired hypothyroidism 05/21/2007 Cervical spondylosis 02/11/2005 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 documented as of this encounter (statuses as of 08/26/2024) Resolved Problems Problem Noted Date Diagnosed Date Resolved Date Permanent atrial fibrillation 03/28/2019 10/28/2021 Chronic systolic CHF (conges tive heart failure) 03/28/2019 01/03/2021 CHF with right heart failure 03/21/2019 03/12/2022 Atherosclerosis of aorta 11/16/2018 Carpal tunnel syndrome 03/28/201302/10 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 Henriquez [facility] [place] asymptomatic en plaque cavernous sinus meningioma [...] well after 03/29 surgical repair LOC PRIM [id number] 05/09/2003 10/10/2016 Esotropia 01/13/2003 02/10/2017 Overview (01/13/2003): 7/- R sixth nerve palsy- improving MRI/MRA negative Alopecia 01/13/2003 02/10/2017 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/2002 09/20/2018 Overview (06/16/2002): not bx proven DIVERTICULOSIS OF COLON 06/16/200202/22 Menopause 06/16/2002 10/23/2021 Abnormal weight gain 06/16/2002 017 documented as of this encounter (statuses as of 08/26/2024) Immunizations Name Administration Dates Next Due COVID-19 [...] 10 and older)(Boostrix) 03/02/2019, Varicella Zoster Vaccine Merlin lt (Zostavax) 09/14/2014 Zoster Vaccine Recombinant (Shingrix) 02/02/2024 ,09/29/2023,09/14/2014 documented as of this encounter Social History Tobacco Use Types Packs/Day Years Used Date Smoking Tobacco: Former Cigarettes 3 23 0 05/25/1978 - 05/25/2001 Smokeless Tobacco: Never Alcohol Use Standard Drinks/Week Comments Yes 14 (1 standard drink = 0.6 oz pu re alcohol) PHQ-2 Answer Date Recorded PHQ Adult Total Score 0 07/01/2024 Hunger Vital Sign Answer Date Recorded Within [...] Date 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 08/25 * Telephone Encounter - Edie Pimentel LPN - 08/25/2024 12:54 PM EDT Please assist patient in scheduling the Pulmonary referral from 08-22-24 * Telephone Encounter - Edie Pimentel LPN - 08/12/2024 11:09 AM EDT Form faxed along with office notes and spirometry note to [facility] * Telephone Encounter - Leyda Ahn MD - 08/11/2024 2:17 PM EDT DME for oxygen therapy from [facility] form reviewed. Was started on oxygen 2 lts at night by Pulmonology, last night oximetry reviewed, order signed -med list updated for oxygen 2 L at night * Telephone Encounter - Edie Pimentel LPN - 08/11/2024 1:05 PM EDT MyG message sent * Telephone Encounter - Edie Pimentel LPN - 08/11/2024 1:05 PM EDT ----- Message from Leyda Ahn MD sent at 08/11/2024 12:51 PM EDT ----- Stable CMP on 08/01/2024, saw message from daughter which was not routed to provider. Inc lasix to 40 mg daily, BMP 1 hr before appt 08/22/24 If symptoms are worse schedule earlier appointment or go to ER if after hours for evaluation She does not have [facility] insurance , [facility] cannot see her, pl f/u on HH referral documented in this encounter Plan of Treatment Upcoming Encounters Date Type Department Care Team (Late st Contact Info) Description 08/29/2024 7:15 AM EDT Laboratory Lab Mobile Ph[facility]botomy [place] [facility] [place] [address] [facility] [place] [address] 09/27/2024 7:00 AM EDT Laboratory Lab [facility] [place] [facility] [place] [address] [place], [facility] [place] [address] 10/07/2024 2:20 PM EDT Office Visit General Internal Medicine [facility] [address] [place] [address] Leyda Ahn MD [address] [place] [address] 10/20/2024 2:00 PM EDT Office Visit Hematology/Oncology [facility] [address] [place] [address] Patricia Shin CRNP [address] [place] [id number] 10/25/2024 2:30 PM EDT Office Visit Rheumatology [facility] [address] [place] [phone] Jose Manuel Thurston CRNP [address] [place] [address] [place] [address] 11/21/2024 1:00 PM EDT Imaging Radiology [facility] [address] [place] [phone] 11/29/2024 8:30 AM EDT Office Visit Cardiology, [facility] [address] [place] [phone] Ritu Vasquez, PATRICIAC [address] [place] [address] Scheduled Procedures Name Priority Associated Diagnoses Date/Ti me COLONOSCOPY FLEXIBLE PROXIMA L DIAGNOSTIC Recall IBD (inflammatory bowel disease) Health Maintenance Due Date Last Done Comments DXA Scan 08/10/2023 08/09/2020, 07/23, 11/07/2009, Additional history exists Colonoscopy 12/26/2023 12/25/2021, 07/2021, 09/24/2018, Additional history exists COVID-19 Vaccine ( season) 2024 09/29/2023, 03/18/2022, 05/13/2021, Additional history exists Adult Wellness Visit 05/07/2024 05/07/2023 DIG LEVEL FOR MEDICATION MONITORING YEARLY 05/30/2025 05/30/2024, 04/04/2024, 02/16/2023, Additional history exists Depression Screening 07/01/2025 07/01/2024 TSH 07/01/2025 07/01/2024, 03/25, 01/21/2024, Additional history exists O2 ASSESSMENT COMPLETED IN PAST YEAR FOR COPD 07/22/2025 07/22/2024 DTap/Tdap Vaccines (3 - Td or Tdap) 03/02/2029 03/02/2019, 09/14/2014, 10/13/2007 Alpha-1 Antitrypsin Completed 11/01/2021 Pneumococcal Vaccine: 50+ Years Completed 12/06/2021, 11/16/2014, 02/22/2007, Additional history [...] on patient's age to complete this topic Meningitis B Vaccine (Bexsero/Trumemba) Aged Out No longer eligible based on patient's age to complete this topic documented as of this encounter Medical Devices Implanted Type Area Pest Technician Device Identifier Shelf Expiration Date Model / Serial / Lot Valve Ce Aortic 21mm 3000tfx - [id number] Implanted:Qty : 1 on 04/17/2010 [place] [facility] [place] Tissue - Non Human N/A: Chest FRY [employer] ELISABETH 04/17/2010 3000TFX-2 [id number] / Patch Pericard 8x14cm [id number] - [id number] Implanted:Qty : 1 on 04/17/2010 at [place] [facility] [place] Tissue - Non Human N/A: Chest [employer] 12/05/2014 PC-[id number] / / [id number] Sut Steel 6 M654g - [id number] Implanted:Qty : 4 on 04/17/2010 at [place] [facility] [place] N/A: Chest DO NOT USE 06/17/2014 [id number] / / [id number] documented as of this encounter Advance Directives Documents on File Type Date Recorded Patient Grain Loader Expl 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 Care Teams Molder Machine Tender Relationship Specialty Start Date End Date Leyda Ahn MD [address] [place] [address] PCP - General Internal Medicine 02/02/24 documented as of this encounter
--- OUTSIDE RECORDS SUMMARY | 2024-08-27 10:56 | External Medical Summary | Summary of Care ---
Author Name Unknown Organization [facility] Address [address] [place] [address] Phone [phone] Care Team Providers Care Cleaning Professional Name Role Phone Leyda Ahn MD Primary Care Provider [phone] Reason for Visit * Reason Onset Date Comments Referral 08/22/2024 Encounter Details Date Type Department Care Team (Late st Contact Info) Description 08/22/2024 Telephone General Internal Medicine [facility] [address] [facility] [place] [address] Leyda Ahn MD [address] [place] [address] Referral Allergies Active Allergy Reactions Criticality Noted Date Comments Pantoprazole 01/29/2022 Itchiness, rash Penicillins Hives 01/13/2003 hives documented as of this encounter (statuses as of 08/22/2024) Medications Acetaminophen ER 650 MG Oral Tablet Extended Release 2 pill daily in AM & 2 pills in afternoon if needed 5 Active Clobetasol Propionate 0.05 % External SolutionIndication s:Pruritic dermatosis of scalp,Scalp itch Apply topically to affected area 2 times a day. On scalp , use till better then as needed 25 mL 1 4 Active Cetirizine HCl 10 MG Oral Tablet (ZyrTEC Allergy)Indication s:Chronic rhinitis Take 1 Tablet by mouth in the morning. 4 Active Digoxin 125 MCG Oral Tablet (Lanoxin)Indicatio ns:Paroxysmal atrial flutter (HCC) Take 1 Tablet by mouth once a day on Thursday, Thursday, and Thursday only. Take one 3 days per week 4 Active Albuterol Sulfate HFA 108 (90 Base) MCG/ACT Inhalation Aerosol SolutionIndication s:COPD, mild (HCC) Inhale 2 Puffs by mouth every 4 hours as needed for Cough, Shortness of Breath or Wheezing. 20.1 g 3 5 Active Metoprolol Succinate ER 25 MG Oral Tablet Extended Release 24 Hour (toPROL XL)Indications:Par oxysmal atrial fibrillation (HCC) Take 1 Tablet by mouth in the morning. 90 Tablet 3 5 Active Aspirin 81 MG Oral Tablet Delayed Release Take one 3 days per week 5 Active Hydrocortisone 2.5 % External CreamIndications:E czematous skin lesions,Dry skin Apply topically to affected area 2 times a day. To affected area. On Rt upper back for 1 week or till better then as needed 30 g 1 5 Active B-12 1000 MCG Oral TabletIndications: B12 deficiency 1 tab daily, start 04/05/2024--de c to 4d/wk 07/06/2024 1 Tablet 5 Active Gabapentin 100 MG Oral Capsule (Neurontin)Indicat ions:Idiopathic peripheral neuropathy,Spinal stenosis of lumbar region without neurogenic claudication Take 1 cap daily 90 Capsule 1 5 Active Mesalamine ER 0.375 GM Oral Capsule Extended Release 24 Hour (Apriso)Indication s:Crohn's disease of large intestine without complication (HCC) Take 4 Capsules by mouth in the morning. 120 Capsule 12 5 Active Levothyroxine Sodium 100 MCG Oral Tablet (Levoxyl)Indicatio ns:Acquired hypothyroidism TAKE 1 TABLET BY MOUTH IN THE MORNING. (AT LEAST 30 MIN PRIOR TO BREAKFAST OR OTHER MEDS) 90 Tablet 1 5 Active Furosemide 40 MG Oral Tablet (Lasix)Indications :Chronic diastolic heart failure due to valvular disease (HCC),Pulmonary hypertension (HCC),Stenosis of prosthetic aortic valve, sequela,Typical atrial flutter (HCC),Bilateral leg edema,History of transcatheter aortic valve replacement (TAVR),Paroxysmal atrial fibrillation (HCC),Other ascites,Acute on chronic right-sided heart failure (HCC) 40 mg daily--inc 08/11/2024, stat lab 08/22/24 45 Tablet 1 Active oxygen IN GAS 2L/min(Oxygen) continuous at night via nasal cannula. Active oxygen IN GASIndications:Chr onic diastolic heart failure due to valvular disease (HCC),Pulmonary hypertension (HCC),Bilateral leg edema,Acute on chronic right-sided heart failure (HCC),COPD, group B, by GOLD 2017 classification (HCC),Nocturnal hypoxia,History of transcatheter aortic valve replacement (TAVR),Other ascites Administer 2 L/min(Oxygen) into nostril as needed for Dyspnea or Shortness of Breath (with ambulation). Component Ref Range & Units 13:42 1 yr ago Pulse Oximetry-Initi al Rest 96 93 CM Comment: room air Pulse Oximetry-Durin g Exercise 77 87 CM Comment: room air Pulse Oximetry-Post Exercise 94 94 CM Comment: room air Pulse Oximetry-Post Nebulizer 1 Each 5 Active documented as of this encounter (statuses as of 08/22/2024) Active Problems Problem Noted Date Diagnosed Date [...] as of this encounter (statuses as of 08/22/2024) Resolved Problems Problem Noted Date Diagnosed Date Resolved Date Permanent atrial fibrillation 03/28/2019 10/28/2021 Chronic systolic CHF (conges tive heart failure) 03/28/2019 01/03/2021 CHF with right heart failure 03/21/2019 03/12/2022 Atherosclerosis of aorta 11/16/2018 Carpal tunnel syndrome 03/28/201302/10 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 Henriquez [facility] [place] asymptomatic en plaque cavernous sinus meningioma [...] well after 03/29 surgical repair LOC PRIM [id number] 05/09/2003 10/0 10/2016 Esotropia 01/13/2003 02/10/2017 Overview (01/13/2003): 11/24- R sixth nerve palsy- improving MRI/MRA negative Alopecia 01/13/2003 02/10/2017 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/2002 09/20/2018 Overview (06/16/2002): not bx proven DIVERTICULOSIS OF COLON 06/16/200202/22 Menopause 06/16/2002 10/23/2021 Abnormal weight gain 06/16/2002 017 documented as of this encounter (statuses as of 08/22/2024) Immunizations Name Administration Dates Next Due COVID-19 [...] Date 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 She verbalized understanding. Elyssa asked for signed Home Health order, signed office note, and patient demographics to be faxed to them at [phone]. All requested information faxed. Office notes included 08/22/2024, 07/22/2024, and 07/01/2024 with confirmation. Oxygen order along with office note from 08/22/2024, patient demographics, and office pulse ox resting and walking results faxed to [facility] at [phone] with confirmation. Home phlebotomy referral along with lab order from 08/22/2024 - renal function panel faxed to [facility] lab at [phone] with confirmation. documented in this encounter Plan of Treatment Upcoming Encounters Date Type Department Care Team (Late st Contact Info) Description 08/29/2024 7:15 AM EDT Laboratory Lab Mobile Phlebotomy [address] [place] [address] [facility] Mobile Home Draw [facility] [place] [address] 10/07/2024 2:20 PM EDT Office Visit General Internal Medicine [facility] [address] [facility] [place] [address] Leyda Ahn MD [address] [facility] [place], [place] [address] 10/20/2024 2:00 PM EDT Office Visit Hematology/Oncology [facility] [address] [facility] [place], [place] [phone] Patricia Shin CRNP [address] [facility] [place] [address] 10/25/2024 2:30 PM EDT Office Visit Rheumatology [facility] [address] [place] [phone] Jose Manuel Thurston CRNP [address] [facility] [place], [place] [address] 11/21/2024 1:00 PM EDT Imaging Radiology [facility] [address] [place] [phone] 11/29/2024 8:30 AM EDT Office Visit Cardiology, [facility] [address] [place] [phone] Riut Vasquez PA-C [address] [place] [address] Scheduled Procedures Name Priority Associated Diagnoses Date/Ti [...] this encounter Medical Devices Implanted Type Area Count Room Clerk Device Identifier Shelf Expiration Date Model / Serial / Lot Valve Ce Aortic 21mm 3000tfx - [id number] Implanted:Qty : 1 on 04/17/2010 at [place] [facility] [place] Tissue - Non Human N/A: Chest [employer] ELISABETH 04/17/2010 3000TFX-2 1 [id number] / Patch Pericard 8x14cm [id number] - [id number] Implanted:Qty : 1 on 04/17/2010 at [place] [facility] [place] Tissue - Non Human N/A: Chest [employer] 12/05/2014 -0814N / / [id number] Sut Steel 6 M654g - [id number] Implanted:Qty : 4 on 04/17/2010 at [place] [facility] [place] N/A: Chest DO NOT USE 06/17/2014 M654G / / [id number] documented as of this encounter Advance Directives Documents on File Type Date Recorded Patient Lead Database Developer Expl 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 Care Teams Cleaning Professional Relationship Specialty Start Date End Date Leyda Ahn MD [address] [place] [address] PCP - General Internal Medicine 02/02/24 documented as of this encounter
--- OUTSIDE RECORDS SUMMARY | 2024-08-27 10:56 | External Medical Summary | Summary of Care ---
Author Name Unknown Organization [facility] Address [address] [place] [address] Phone [phone] Care Team Providers Care Glue Reel Operator Name Role Phone Leyda Ahn MD Primary Care Provider Reason for Referral * Ancillary Services (Within 10 days (routine)) - Authorized Specialty Diagnoses / Procedures Referred By Contac james Referred To Contact Hospice Volunteer Diagnoses Pulmonary hypertension (HCC) Typical atrial flutter (HCC) Bilateral leg edema Acute on chronic right-sided heart failure (HCC) Leyda Ahn MD [address] [place] [address] Phone: tel: fax: Referral ID Status Reason Start Date Expiration Date Visits Requested Visits Authorized [id number] Authorized Ancillary Services Required 08/22/2024 999 [id number] Question Answer Referral Priority Within 10 days (routine) Where should this appointment be scheduled? [facility] Comments Is Patient homebound? Yes All sections of this form must be filled out completely. Forms with missing or illegible information will be returned for completion. This form should not be modified in any way. Forms that have been modified will be returned. This form may not be submitted by a home health agency. It must be complete and submitted by the ordering provider. One full business day lead time is required and service will be scheduled based on the next service day for the [facility] Home Phlebotomy does not service every geographical location on a daily basis. Contact [facility] Client Services at to find out service days for a specific location. Medical Laboratory SP Patient Name: Nereida Stephen : 1940 Sex: female Address [address] [facility] [place] [address] Provider: @REF@? Leyda Ahn MD? Diagnosis: No diagnosis found. Tests Requested BMP - 08/29/24 and as directed --see lab orders * Evaluate & Treat - Unlimited Visits (Within 10 days (routine)) - Authorized Specialty Diagnoses / Procedures Referred By Contac t Referred To Contact Pulmonary Diseases / Pulmonary Diagnoses Pulmonary hypertension (HCC) Bilateral leg edema Acute on chronic right-sided heart failure (HCC) COPD, group B, by GOLD 2017 classification (HCC) Nocturnal hypoxia Leyda Ahn MD [address] [facility] [place] [address] Phone: tel: fax: Referral ID Status Reason Start Date Expiration Date Visits Requested Visits Authorized [id number] Authorized Specialty Services Required 08/22/2024 999 999 Question Answer Referral Priority Within 10 days (routine) Where should this appointment be scheduled? [facility] Primary Reason for Referral? Asthma/COPD - noc hypoxia,rt CHF Reason for Visit * Reason Comments Re-Check 1 month recheck; emily weaver accompanied by daughter Yola Other Patient states her l egs feel heavy like they are full of water - daughter states ongoing for a couple months Referral Case management and physical therapy Encounter Details Date Type Department Care Team (Latest Contact Info) Description 08/22/2024 12:40 PM EDT Office Visit General Internal Medicine [facility] [place] [address] [place] [id number] Leyda Ahn MD [address] [place] [address] Acute on chronic right-sided heart failure (HCC)*; Chronic diastolic heart failure due to valvular disease (HCC); Pulmonary hypertension (HCC); Stenosis of prosthetic aortic valve, sequela; Typical atrial flutter (HCC); Bilateral leg edema; Elevated bilirubin; COPD, group B, by GOLD 2017 classification (HCC); Nocturnal hypoxia; Thrombocytopenia (HCC); History of resection of meningioma; History of transcatheter aortic valve replacement (TAVR); History of chondrosarcoma; Other ascites; Chronic hypoxic respiratory failure, on home oxygen therapy (HCC); Skin ulcer of cheek, limited to breakdown of skin (HCC) Allergies Active Allergy Reactions Criticality Noted [...] 08/11/2024, stat lab 08/22/24 45 Tablet 1 5 Active oxygen IN GAS 2L/min(Oxygen) continuous at night via nasal cannula. 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 Henriquez [facility] [...] well after 03/29 surgical repair LOC PRIM [id number] 05/09/2003 10/10/2016 Esotropia 01/13/2003 02/10/2017 Overview (01/13/2003): /- R [...] CG/0.3 mL, 12 YRS AND ABOVE, IM ([employer]) 09/29/2023 COVID-19, mRNA, LNP-s, PF, B ooster, [...] Date Job End Date [employer] blanket folder Not on file Not on file Not on file documented as of this encounter Last Filed Vital Signs Vital Sign Reading Time Taken Comments Blood Pressure 104/64 08/22/2024 12:56 PM EDT Pulse 72 08/22/2024 12:56 PM EDT Temperature 36.4 °C (97.6 °F) 08/22/2024 1 2:56 PM EDT Respiratory Rate 16 08/22/2024 12:5 6 PM EDT Oxygen Saturation - - Inhaled Oxygen Concentration - - Weight 70.7 kg (155 lb 14.4 oz) 025 12:56 PM EDT Height - - Body Mass Index 24.42 07/22/2024 1:27 PM EST documented in this encounter Progress Notes * Leyda Ahn MD - 08/22/2024 12:57 PM EDT SUBJECTIVE: Nereida Stephen is a 83 year old female. Chief Complaint Patient presents with Re-Check 1 month recheck; patient accompanied by daughter Yola Other Patient states her legs feel heavy like they are full of water - daughter states ongoing for a couple months Referral Case management and physical therapy Nursing Notes: Sage Clifton RN 08/22/24 1307 Signed Chief Complaint Patient presents with Re-Check 1 month recheck; patient accompanied by daughter Yola Other Patient states her legs feel heavy like they are full of water - daughter states ongoing for a couple months Referral Case management and physical therapy HPI: 1 mth f/u Wt Readings from Last 10 Encounters: 08/22/24 155 lb 14.4 oz (70.7 kg) 08/17/24 152 lb (68.9 kg) 07/22/24 147 lb 3.2 oz (66.8 kg) 07/01/24 142 lb 3.2 oz (64.5 kg) 05/30/24 138 lb (62.6 kg) 05/16/24 137 lb 14.4 oz (62.6 kg) 05/12/24 137 lb 8 oz (62.4 kg) 05/11/24 139 lb 4.8 oz (63.2 kg) 04/15/24 136 lb 9.6 oz (62 kg) 04/05/24 134 lb 14.4 oz (61.2 kg) BP Readings from Last 8 Encounters: 08/22/24 104/64 08/17/24 102/68 07/22/24 98/60 07/01/24 98/62 05/30/24 122/54 05/16/24 102/70 05/12/24 108/72 05/11/24 118/86 H/o bioprosthetic aortic valve stenosis, SP transcatheter AVR on 09/12/2022 via right femoral approach, had 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 No CAD on preop catheterization 2009, repeat catheterization 03/03/2022-mild luminal irregularities 10/02/22-no DVT left leg on Venous doppler. -history of hypotension in October 2022 after she had been started on Entresto and continued Lasix by infrastructure manager in [place] 08/03/23 for diagnosis of atrial flutter, pulmonary hypertension, CHF- -PAF, slow atrial flutter on EKG, not on anticoagulation due to past bleeding 11/15-saw Dr. Jordan, 3 day Zio showed atrial flutter no tachycardia or bradycardia recommend use of oxygen at night admitted to [facility] 11/2023 Echo-LVEF 55 to 60%moderate concentric LVH, RV is mildly dilated, RV systolic function is normal, right atrium is severely dilated, left atrium is moderately dilated, the patient is status post TAVR, normal gradient across prosthetic aortic valve, there is severe tricuspid regurgitation, the estimated systolic pulmonary pressure is 40 mmHg and there is moderate mitral regurgitation -discharged on Lasix as needed -02/15-was on Lasix 20 mg 3 days a week, increased to Lasix 40mg daily at [facility] for bilateral leg edema 01/08/202404/17--saw [place] 03/02/24> Atrial flutter with elevated ventricular response rate, with activity event monitor without significant bradycardia. Will add low- dose digoxin 125 mcg 3 days per week ,taking lasix 1/wk--wt gain noted, refer CM Does get exertional chest discomfort/sob, K high, add lasix 20mg 3d/wk and ch bmp 2 wks 07/22/24--was hospitalized for a bleeding leg ulcer 05/17 -toprol inc 25mg, ct digoxin 3d/wk >, VD neg DVT rt>., saw Cardiology in follow-up 05/30/2024, Ct metoprolol xl 25 mg daily, continue Lasix 40 mg daily-- --still on 3d/wk consider adding Aldactone, start aspirin 3 days a week, albuterol inhaler refilled--Past poor tolerance of Entresto including profound hypotension and hyperkalemia. >> daughter had surgery and was not aware of medication changes, currently on Lasix 20 mg 3 days a week, has gained weight as above, has also noticed abdominal distention/swelling; appears morefatigued and weak, denies dizziness or palpitations -seen in clinic 07/01/2024 and refer to physical therapy for generalized weakness, has not been scheduled yet, nurse to follow up 08/22/2024>dtr did not see message on myg, message sent to nurse who also sent her Myg , lasix Still on 40 mg 3d/wk, 20 4d/wk Gained wt 7 lbs, on about 4 cups fl /day -- Stable CMP on 08/01/2024, saw message from daughter which was not routed to provider. Inc lasix to 40 mg daily, BMP 1 hr before appt 08/22/24 If symptoms are worse schedule earlier appointment or go to ER if after hours for evaluation She does not have [employer] insurance , [facility] cannot see her, pl f/u on referral --was done 07/01/24 Seen in clinic by Dr. Graves 01/21/2024 SP fall at a pharmacy,falling backwards hitting her head, unsure if she had lost consciousness. EKG had shown atrial flutter with variable block, had labs and CT of the head, orthostatics negative 01/21/2024-CT head-no interval changes from last CT head 03/22/20193267-qwak-zr-moderate age-related cerebral atrophy with compensatory dilation of [...] improved from 129-138 and bicarb from 21-25 01/26/24--US RUQ_result note Abigail-1. Mild gallbladder thickening, any ruq pain, nausea, vomiting? 2. Mild ascites 3. Has a fatty liver infiltration vs hemangioma (benign collection blood vessel) radiology reccomending mri, but if she has a lot of metal in body, claustrophobia can try ct instead--agreed to MRI 02/26/24-MRI of the abdomen -normal gallbladder, 3 cm hemangioma(benign vascular growth) in left lobe of the liver, Cardiomegaly with right atrial enlargement, dilated hepatic veins as well as small volume ascites and mild body wall edema- -all suggestive of right heart dysfunction-addressed by . Carotid Doppler 10/13/2022-per Cardiology-PHUC occlusion , less that 50% stenosis of the LICA- unchanged from 2020. Please let them know and fax prior report. 04/04/24--CD--same COPD with nocturnal hypoxia, does not use oxygen regularly. -- -04/17-reg now 08/11/24-DME for oxygen therapy from [facility] form reviewed. Was started on oxygen 2 lts at night by Pulmonology, last night oximetry reviewed, order signed Night ox 10/09/2022. --st 2lts hs by pulm Basal SpO2 93.9% Time (min) <89% 07 min Time (min) <88% 16 min Minimum SpO2 69% -med list updated for oxygen 2 L at night History of meningioma status post gamma knife surgery 05/2014. 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 History of hyponatremia due to dehydration in the past and alcohol use 04/17 -Drinks alcohol at least 4 to 5 times a week, denies any skin bruising. Denies fever or chills/ abdominal pain/ nausea or vomiting. Hematology evaluation 04/15/2024- DD-- ITP/alcoholic liver disease and MDS, labs ordered, start oral B12 as I had ordered, continue aspirin if platelet count greater than 50 Ulcerative colitis diag in December 2021 -per GI note--on mesalamine 1.2 gm 2/d EGD Impression: - Normal esophagus. - Small [...] on retroflexion view. Path consistent with UC 10/14-Labs-nml cbc ex mild anemia -Hb improved to 11.6, nml CMP ex bilirubin( high before , may haveGilberts syndrome) 04/17-referred for colonoscopy, it to be scheduled, has appointment with GI 08/17/2024 :- eval>IMPRESSION/RECOMMENDATIONS: IBD, symptomatic remission on 5 ASA Severe CHF - Cont 5ASA. Pt does not want colonoscopy; given her frailty and evidence of severe heart failure on exam, this seems reasonable. I discussed yield of calprotectin, non-invasive markers with pt and sone; given her frailty and comorbid severe heart disease, we decided to forego any further testing for IBD. - Indirect hyperbillirubinemia, ascites likely related to congesitve hepatopathy. Also, her AST is mildly increased but >> than ALT. Uls from January shows ascites and no gunner dil. Can consider checking CPK; I discussed with son and pt, they prefer to minimize w/u due to comorbid frailty andsevere heart disease. DEXA schedule 11/21/2024, Rheumatology 10/25/202404/17-scalp itching has improved with clobetasol solution as well with resolution of hyperkeratosisand hydrocortisone OTC to the affected area on the right upper back Taking Zyrtec for itchy watery eyes denies any runny nose Also had pain in her neck and received injections by [facility] pain [facility] currently taking Tylenol 3 a day, off aspirin, taking gabapentin only 1 a day 07/01/2024-INR 1.4, B12 1938, TSH 0.76, stable BMP except potassium 6.1, - hemolysed LFTs with known elevated AST, total bilirubin 2.7 direct slightly high 0.5, ALT normal, normal CBC except MCV 102.9 platelets 125--dec b12 4d/wk TSH Results: Lab Results Component Value Date/Time TSH - [facility] 0.76 07/01/2024 01:52 PM TSH - [facility] 1.59 04/04/2024 01:22 PM TSH - [facility] 0.36 01/21/2024 12:27 PM TSH - [facility] 0.87 06/15/2020 01:48 PM TSH - [facility] 2.71 06/08/2020 11:45 AM TSH - [facility] 3.10 02/22/2020 10:36 AM TSH - [facility] 0.174 (A) 11/12/2021 12:00 AM TSH - [facility] 1.500 09/23/2018 12:00 AM Potassium Results: hemolysed specimen Lab Results Component Value Date/Time POTASSIUM - [facility] 4.9 08/03/2024 10:17 AM POTASSIUM - [facility] 4.4 07/22/2024 02:29 PM POTASSIUM - [facility] 6.1 (H) 07/01/2024 01:52 PM POTASSIUM - [facility] 3.9 09/19/2022 03:07 [...] Results Component Value Date/Time AST - [facility] 38 (H) 08/03/2024 10:17 AM AST - [facility] 64 (H) 07/01/2024 01:52 PM AST - [facility] 49 (H) 04/04/2024 01:22 PM AST - [facility] 42 (H) 06/15/2020 01:48 PM AST - [facility] 43 (H) 06/08/2020 11:45 AM AST - [facility] 39 (H) 02/22/2020 10:36 AM ALT Results: Lab Results Component Value Date/Time ALT - [facility] 6 (L) 08/03/2024 10:17 AM ALT - [facility] 9 (L) 07/01/2024 01:52 PM ALT - [facility] 16 04/04/2024 01:22 PM ALT - [facility] 25 06/15/2020 01:48 PM ALT - [facility] 30 06/08/2020 11:45 AM ALT - [facility] 25 02/22/2020 10:36 AM ALT-[facility]IDE [facility] 31 (A) 05/31/2019 12:00 AM Results for orders placed or performed in visit on 08/03/24 COMPREHENSIVE METABOLIC PANEL Result Value Ref Range BUN 32 (H) 6 - 20 mg/dL CREATININE 0.9 0.5 - 1.0 mg/dL EGFR 61 >=60 mL/min SODIUM 138 135 - 146 mmol/L POTASSIUM 4.9 3.5 - 5.1 mmol/L CHLORIDE 99 98 - 107 mmol/L CO2 31 22 - 32 mmol/L ANION GAP 8 7 - 15 mmol/L GLUCOSE 84 70 - 120 mg/dL Albumin 3.8 3.8 - 5.0 g/dL AST 38 (H) 10 - 35 U/L Alkaline Phosphatase 85 35 - 130 U/L Bilirubin, Total 2.4 (H) <=1.2 mg/dL CALCIUM 9.5 8.4 - 10.2 mg/dL Protein 7.1 6.0 - 8.3 g/dL ALT 6 (L) 10 - 35 U/L BILIRUBIN, DIRECT Result Value Ref Range Bilirubin, Direct 1.0 (H) 0.0 - 0.3 mg/dL *Note: Due to a large number of results and/or encounters for the requested time period, some results have not been displayed. A complete set of results can be found in Results Review. 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) B12 deficiency History of resection of meningioma Right internal carotid occlusion Paroxysmal atrial fibrillation (HCC) Crohn's disease of large intestine without complication (HCC) Idiopathic peripheral neuropathy COPD, group B, by GOLD 2017 classification (HCC) Pulmonary hypertension (HCC) Stenosis of prosthetic aortic valve Spinal stenosis of lumbar region without neurogenic claudication Venous insufficiency Chronic rhinitis Atrial flutter (HCC) Thrombocytopenia (HCC) Elevated bilirubin Hemangioma of liver Osteopenia of necks of both femurs Chronic hypoxic respiratory failure, on home oxygen therapy (HCC) Chronic right-sided heart failure (HCC) Bilateral leg edema Epigastric hernia Current Outpatient Medications Medication Sig Dispense Refill Acetaminophen ER 650 MG Oral Tablet Extended Release 2 pill daily in AM & 2 pills in afternoon if needed Clobetasol Propionate 0.05 % External Solution Apply topically to affected area 2 times a day. On scalp , use till better then as needed 25 mL 1 Cetirizine HCl 10 MG Oral Tablet (ZyrTEC Allergy) Take 1 Tablet by mouth in the morning. Digoxin 125 MCG Oral Tablet (Lanoxin) Take 1 Tablet by mouth once a day on Thursday, Thursday, and Thursday only. Take one 3 days per week Albuterol Sulfate HFA 108 (90 Base) MCG/ACT Inhalation Aerosol Solution Inhale 2 Puffs by mouth every 4 hours as needed for Cough, Shortness of Breath or Wheezing. 20.1 g 3 Metoprolol Succinate ER 25 MG Oral Tablet Extended Release 24 Hour (toPROL XL) Take 1 Tablet by mouth in the morning. 90 Tablet 3 Aspirin 81 MG Oral Tablet Delayed Release Take one 3 days per week Hydrocortisone 2.5 % External Cream Apply topically to affected area 2 times a day. To affected area. On Rt upper back for 1 week or till better then as needed 30 g 1 B-12 1000 MCG Oral Tablet 1 tab daily, start 04/05/2024--dec to 4d/wk 07/06/2024 1 Tablet 0 Gabapentin 100 MG Oral Capsule (Neurontin) Take 1 cap daily 90 Capsule 1 Mesalamine ER 0.375 GM Oral Capsule Extended Release 24 Hour (Apriso) Take 4 Capsules by mouth in the morning. 120 Capsule 12 Levothyroxine Sodium 100 MCG Oral Tablet (Levoxyl) TAKE 1 TABLET BY MOUTH IN THE MORNING. (AT LEAST30 MIN PRIOR TO BREAKFAST OR OTHER MEDS) 90 Tablet 1 Furosemide 40 MG Oral Tablet (Lasix) 40 mg daily--inc 08/11/2024, stat lab 08/22/24 45 Tablet 1 oxygen IN GAS 2L/min(Oxygen) continuous at night via nasal cannula. No current facility-administered medications for this visit. Review of patient's allergies indicates: Allergen Reactions Pantoprazole Itchiness, rash Penicillins Hives hives Discussed about covid booster, RSV vaccine.at Immunization History Administered Date(s) Administered COVID-19 mRNA, LNP-s, No Preserve, 2-Dose Series (Moderna) 07/25/2020, 08/30/2020 COVID-19, MRNA-LNP, PF, 30 MCG/0.3 mL, 12 YRS AND ABOVE, IM (RADSONE-Comirat[employer]) 09/29/2023 COVID-19, mRNA, LNP-s, PF, Booster, 100mcg/0.5mg [...] Recombinant (Shingrix) 09/14/2014, 09/29/2023, 02/02/2024 OBJECTIVE: BP 104/64 (BP Site: Left Arm, BP Position: Sitting, BP Cuff Size: Regular) | Pulse 72 | Temp 97.6 °F (36.4 °C) (Tympanic) | Resp 16 | Wt 155 lb 14.4 oz (70.7 kg) | BMI 24.42 kg/m² | BSA 1.83 m² PHYSICAL EXAM: General: alert, healthy, no distress, well developed Neck: supple, no adenopathy, thyroid Not enlarged without nodularity Heart: regular rhythm and rate,4/6 ESM base and apex 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 Lungs: lungs clear to auscultation, ex sl dec BS left base Extremities: skin tight edema gunner legs ext to thighs Abdomen: Soft, distension,+ascites, bloating, epigastric hernia [place] size,reducible, non-tender, nlBS, no masses or organomegaly Scalp-areas thick hyperkeratotic lesions resolved Neuro-no focal deficits, needs assistance to get onto the exam table Skin-left cheek- 0.5mm ulcer with dry base --has dec in size Component Ref Range & Units 13:42 1 yr ago Pulse Oximetry-Initial Rest 96 93 CM Comment: room air Pulse Oximetry-During Exercise 77 87 CM Comment: room air Pulse Oximetry-Post Exercise 94 94 CM Comment: room air Pulse Oximetry-Post Nebulizer ASSESSMENT/PLAN: Acute on chronic right-sided heart failure (HCC) (Primary) - PULMONARY REFERRAL OP - PULSE OX W/ REST/EXERCISE, MULTIPLE (OP) - RENAL FUNCTION PANEL; Future; Expected date: 10/03/2024 - HOME PHLEBOTOMY REFERRAL OP - oxygen IN GAS; Administer 2 L/min(Oxygen) into nostril as needed for Dyspnea or Shortness of Breath (with ambulation). Component Ref Range & Units 13:42 1 yr ago Pulse Oximetry-Initial Rest 96 93 CM Comment: room air Pulse Oximetry-During Exercise 77 87 CM Comment: room air Pulse Oximetry-Post Exercise 94 94 CM Comment: room air Pulse Oximetry-Post Nebulizer Chronic diastolic heart failure due to valvular disease (HCC) - PULSE OX W/ REST/EXERCISE, MULTIPLE (OP) - oxygen IN GAS; Administer 2 L/min(Oxygen) into nostril as needed for Dyspnea or Shortness of Breath (with ambulation). Component Ref Range & Units 13:42 1 yr ago Pulse Oximetry-Initial Rest 96 93 CM Comment: room air Pulse Oximetry-During Exercise 77 87 CM Comment: room air Pulse Oximetry-Post Exercise 94 94 CM Comment: room air Pulse Oximetry-Post Nebulizer Pulmonary hypertension (HCC) - PULMONARY REFERRAL OP - PULSE OX W/ REST/EXERCISE, MULTIPLE (OP) - HOME PHLEBOTOMY REFERRAL OP - oxygen IN GAS; Administer 2 L/min(Oxygen) into nostril as needed for Dyspnea or Shortness of Breath (with ambulation). Component Ref Range & Units 13:42 1 yr ago Pulse Oximetry-Initial Rest 96 93 CM Comment: room air Pulse Oximetry-During Exercise 77 87 CM Comment: room air Pulse Oximetry-Post Exercise 94 94 CM Comment: room air Pulse Oximetry-Post Nebulizer Stenosis of prosthetic aortic valve, sequela - PULSE OX W/ REST/EXERCISE, MULTIPLE (OP) Typical atrial flutter (HCC) - PULSE OX W/ REST/EXERCISE, MULTIPLE (OP) - HOME PHLEBOTOMY REFERRAL OP Bilateral leg edema - PULMONARY REFERRAL OP - PULSE OX W/ REST/EXERCISE, MULTIPLE (OP) - HOME PHLEBOTOMY REFERRAL OP - oxygen IN GAS; Administer 2 L/min(Oxygen) into nostril as needed for Dyspnea or Shortness of Breath (with ambulation). Component Ref Range & Units 13:42 1 yr ago Pulse Oximetry-Initial Rest 96 93 CM Comment: room air Pulse Oximetry-During Exercise 77 87 CM Comment: room air Pulse Oximetry-Post Exercise 94 94 CM Comment: room air Pulse Oximetry-Post Nebulizer Elevated bilirubin - PULSE OX W/ REST/EXERCISE, MULTIPLE (OP) COPD, group B, by GOLD 2017 classification (HCC) - PULMONARY REFERRAL OP - PULSE OX W/ REST/EXERCISE, MULTIPLE (OP) - oxygen IN GAS; Administer 2 L/min(Oxygen) into nostril as needed for Dyspnea or Shortness of Breath (with ambulation). Component Ref Range & Units 13:42 1 yr ago Pulse Oximetry-Initial Rest 96 93 CM Comment: room air Pulse Oximetry-During Exercise 77 87 CM Comment: room air Pulse Oximetry-Post Exercise 94 94 CM Comment: room air Pulse Oximetry-Post Nebulizer Nocturnal hypoxia - PULMONARY REFERRAL OP - PULSE OX W/ REST/EXERCISE, MULTIPLE (OP) - oxygen IN GAS; Administer 2 L/min(Oxygen) into nostril as needed for Dyspnea or Shortness of Breath (with ambulation). Component Ref Range & Units 13:42 1 yr ago Pulse Oximetry-Initial Rest 96 93 CM Comment: room air Pulse Oximetry-During Exercise 77 87 CM Comment: room air Pulse Oximetry-Post Exercise 94 94 CM Comment: room air Pulse Oximetry-Post Nebulizer Thrombocytopenia (HCC) History of resection of meningioma History of transcatheter aortic valve replacement (TAVR) - oxygen IN GAS; Administer 2 L/min(Oxygen) into nostril as needed for Dyspnea or Shortness of Breath (with ambulation). Component Ref Range & Units 13:42 1 yr ago Pulse Oximetry-Initial Rest 96 93 CM Comment: room air Pulse Oximetry-During Exercise 77 87 CM Comment: room air Pulse Oximetry-Post Exercise 94 94 CM Comment: room air Pulse Oximetry-Post Nebulizer History of chondrosarcoma Other ascites - oxygen IN GAS; Administer 2 L/min(Oxygen) into nostril as needed for Dyspnea or Shortness of Breath (with ambulation). Component Ref Range & Units 13:42 1 yr ago Pulse Oximetry-Initial Rest 96 93 CM Comment: room air Pulse Oximetry-During Exercise 77 87 CM Comment: room air Pulse Oximetry-Post Exercise 94 94 CM Comment: room air Pulse Oximetry-Post Nebulizer Chronic hypoxic respiratory failure, on home oxygen therapy (HCC) Skin ulcer of cheek, limited to breakdown of skin (HCC) Ct Fluid restriction to 5 cups(8oz)/d Low salt diet. Check daily weight Call for weight gain >3lb/24hr or 5lb/3d Inc lasix to 40 mg daily Labs in 1 wk, home phlebotomy referral placed, Nurse to fu on HH referral Not f/b CM now--[facility], cc CM to f/u Decrease vitamin B12 Continue decrease alcohol intake in the diet. Continue home oxygen at night, also start using 2 L with exercise, refer to service car operator Avoid putting steroid cream on the skin ulcer, use Aquaphor daily till better- has improved, avoid sticking long bandaid Hernia reducible, if any worsening despite diuresis and decrease in ascites consider referral to General Surgery Liver congestion sec to RHF/alc use Had GI appointment 08/17/2024, Hematology 10/20/2024,card 11/29/24 Desaturation with the ambulation, to use 2 lts O2 with ambulation 40 min total time spent with patient, time spent reviewing subspecialty notes, diagnostic studies done, follow-up orders/medication refills,over 1/2 time spent in counseling, coordinating care. Follow-up: Return if symptoms worsen or fail to improve. 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 Leyda Ahn MD 08/22/2024 documented in this encounter Nursing Notes * Sage Clifton, RN - 08/22/2024 12:58 PM EDT Chief Complaint Patient presents with Re-Check 1 month recheck; patient accompanied by daughter Yola Other Patient states her legs feel heavy like they are full of water - daughter states ongoing for a couple months Referral Case management and physical therapy documented in this encounter Plan of Treatment Upcoming Encounters Date Type Department Care Team (Late st Contact Info) Description 08/29/2024 7:15 AM EDT Laboratory Lab Mobile Phlebotomy [address] [place] [address] [facility] Mobile Home Draw [facility] [place] [address] 10/07/2024 2:20 PM EDT Office Visit General Internal Medicine [facility] [address] [facility] [place], [place] [address] Leyda Ahn MD [address] [facility] [place], [place] [address] 10/20/2024 2:00 PM EDT Office Visit Hematology/Oncology [facility] [address] [facility] [place], [place] [phone] Patricia Shin CRNP [address] [facility] [place] [address] 10/25/2024 2:30 PM EDT Office Visit Rheumatology [facility] [address] [place] [phone] Jose Manuel Thurston CRNP [address] [facility] [place], [place] [address] 11/21/2024 1:00 PM EDT Imaging Radiology [facility] [address] [place] [phone] 11/29/2024 8:30 AM EDT Office Visit Cardiology, [facility] [address] [place] [phone] Ritu Vasquez PA-C [address] [place] [address] Scheduled Orders Name Type Priority Associated Diagnoses Orde r Schedule RENAL FUNCTION PANEL Lab Routine Acute on chronic right-sided heart failure (HCC) Expected: 10/03/2024 (Approximate), Expires: 08/22/2025 Scheduled Procedures Name Priority Associated Diagnoses Date/Ti me COLONOSCOPY FLEXIBLE PROXIMA L DIAGNOSTIC Recall IBD (inflammatory bowel disease) Scheduled Referrals Name Type Priority Associated Diagnoses Orde r Schedule PULMONARY REFERRAL OP Referral Within 10 days (routine) Pulmonary hypertension (HCC) Bilateral leg edema Acute on chronic right-sided heart failure (HCC) COPD, group B, by GOLD 2017 classification (HCC) Nocturnal hypoxia Ordered: 08/22/2024 HOME PHLEBOTOMY REFERRAL OP Referral Within 10 days (routine) Pulmonary hypertension (HCC) Typical atrial flutter (HCC) Bilateral leg edema Acute on chronic right-sided heart failure (HCC) Ordered: 08/22/2024 Health Maintenance Due Date Last Done Comments [...] this encounter Medical Devices Implanted Type Area Nurses Assistant Device Identifier Shelf Expiration Date Model / Serial / Lot Valve Ce Aortic 21mm 3000tfx - [id number] Implanted:Qty : 1 on 04/17/2010 [place] [facility] [place] Tissue - Non Human N/A: Chest [employer] ELIS[employer]ETH 04/17/2010 3000TFX-[id number] / Patch Pericard 8x14cm [id number] - [id number] Implanted:Qty : 1 on 04/17/2010 [place] [facility] [place] Tissue - Non Human N/A: Chest [employer] 12/05/2014 -[id number] / / [id number] Sut Steel 6 M654g - [id number] Implanted:Qty : 4 on 04/17/2010 at [place] [facility] [place] N/A: Chest DO NOT USE 06/17/2014 [id number] / / [id number] documented as of this encounter Procedures Procedure Name Priority Date/Time Associated Diagnosis Comments PULSE OX W/ REST/EXERCISE, MULTIPLE (OP) Routine 08/22/2024 1:42 PM EDT Chronic diastolic heart failure due to valvular disease (HCC) Pulmonary hypertension (HCC) Stenosis of prosthetic aortic valve, sequela Typical atrial flutter (HCC) Bilateral leg edema Acute on chronic right-sided heart failure (HCC) Elevated bilirubin COPD, group B, by GOLD 2017 classification (HCC) Nocturnal hypoxia documented in this encounter Results * PULSE OX W/ REST/EXERCISE, MULTIPLE (OP) (08/22/2024 1:42 PM EDT) Pulse Oximetry-Initia l Rest 96 Comment:room air Pulse Oximetry-During Exercise 77 Comment:room air Pulse Oximetry-Post Exercise 94 Comment:room air Pulse Oximetry-Post Nebulizer Leyda Ahn MD MEDICINE Final Result documented in this encounter Visit Diagnoses Diagnosis Acute on chronic right-sided heart failure (HCC)- Primary Chronic diastolic heart failure due to valvular disease (HCC) Pulmonary hypertension (HCC) Other chronic pulmonary heart diseases Stenosis of prosthetic aortic valve, sequela Typical atrial flutter (HCC) Atrial flutter Bilateral leg edema Edema Elevated bilirubin Jaundice, unspecified, not of COPD, group B, by GOLD 2017 classification (HCC) Nocturnal hypoxia Hypoxemia Thrombocytopenia (HCC) Thrombocytopenia, unspecified History of resection of meningioma Other postprocedural status 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 Care Teams Glue Reel Operator Relationship Specialty Start Date End Date Leyda Ahn MD [address] [facility] [place] [address] PCP - General Internal Medicine 02/02/24 documented as of this encounter"
--- OUTSIDE RECORDS SUMMARY | 2024-08-27 10:56 | External Medical Summary | Summary of Care ---
Author Name Unknown Organization [facility] Address [address] [place] [address] Phone [phone] Care Team Providers Care Rotor Casting Machine Setup Operator Name Role Phone Leyda Ahn MD Primary Care Provider [phone] Reason for Visit * Reason Comments Follow Up Follow up for Crohn' s. Pt unsure why she is here today. With son Mery. EGD/[place] 2021. Per son pt taking mesalamine 2 tabs daily. BM every 2-3 days. Denies hard/dark stools, bleeding or abd pain/cramping. No loose stools. Per pt stools are formed. * Evaluate & Treat - Unlimited Visits (Within 10 days (routine)) - Authorized Specialty Diagnoses / Procedures Referred By Contfunmilayo t Referred To Contact Gastroenterology Diagnoses Crohn's disease of large intestine without complication (HCC) Amalia Ricci PA-C [address] [place] [address] Phone: tel: fax: Eduar Beckham MD [address] [place] [address] Phone: tel: fax: Referral ID Status Reason Start Date Expiration Date Visits Requested Visits Authorized [id number] Authorized Specialty Services Required 02/24/2024 [id number] Encounter Details Date Type Department Care Team (Late st Contact Info) Description 08/17/2024 9:40 AM EDT Office Visit Gastroenterology, [facility] [address] [place] [address] Eduar Beckham MD [address] [place] [address] Crohn's disease of large intestine without complication (HCC)* Allergies Active Allergy Reactions Criticality Noted Date Comments Pantoprazole 01/29/2022 Itchiness, rash Penicillins Hives 01/13/2003 hives documented as of this encounter (statuses as of 08/20/2024) Medications Acetaminophen ER 650 MG Oral Tablet Extended Release 2 pill daily in AM & 2 pills in afternoon if needed 03/20/20 15 Active Clobetasol Propionate 0.05 % External SolutionIndication s:Pruritic dermatosis of scalp,Scalp itch Apply topically to affected area 2 times a day. On scalp , use till better then as needed 25 mL 1 02/02/20 24 Active Cetirizine HCl 10 MG Oral Tablet (ZyrTEC Allergy)Indication s:Chronic rhinitis Take 1 Tablet by mouth in the morning. 04/05/20 24 Active Digoxin 125 MCG Oral Tablet (Lanoxin)Indicatio [...] 05/30/19 25 Active Hydrocortisone 2.5 % External CreamIndications:E czematous skin lesions,Dry skin Apply topically to affected area 2 times a day. To affected area. On Rt upper back for 1 week or till better then as needed 30 g 1 07/01/19 25 Active B-12 1000 MCG Oral TabletIndications: B12 deficiency 1 tab daily, start 04/05/2024--dec to 4d/wk 07/06/2024 1 Tablet 07/06/19 25 Active Gabapentin 100 MG Oral Capsule (Neurontin)Indicat ions:Idiopathic peripheral neuropathy,Spinal stenosis of lumbar region without neurogenic claudication Take 1 cap daily 90 Capsule 1 07/22/19 25 Active Mesalamine ER 0.375 GM Oral Capsule Extended Release 24 Hour (Apriso)Indication s:Crohn's disease of large intestine without complication (HCC) Take 4 Capsules by mouth in the morning. 120 Capsule 12 08/03/19 25 Active Additional Information Patient taking differently:1.5 g Oral Daily(AM),Per son pt taking 2 tabs daily, Reported on 08/17/2024 Levothyroxine Sodium 100 MCG Oral Tablet (Levoxyl)Indicatio ns:Acquired hypothyroidism TAKE 1 TABLET BY MOUTH IN THE MORNING. (AT LEAST 30 MIN PRIOR TO BREAKFAST OR OTHER MEDS) 90 Tablet 1 08/08/19 25 Active Furosemide 40 MG Oral Tablet (Lasix)Indications :Chronic diastolic heart failure due to valvular disease (HCC),Pulmonary hypertension (HCC),Stenosis of prosthetic aortic valve, sequela,Typical atrial flutter (HCC),Bilateral leg edema,History of transcatheter aortic valve replacement (TAVR),Paroxysmal atrial fibrillation (HCC),Other ascites,Acute on chronic right-sided heart failure (HCC) 40 mg daily--inc 08/11/2024, stat lab 08/22/24 45 Tablet 1 08/12/19 25 Active oxygen IN GAS 2L/min(Oxygen) continuous at night via nasal cannula. 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 [place] [facility] [place] en plaque cavernous sinus meningioma [...] well after 03/29 surgical repair LOC PRIM [id number] 05/09/2003 1010/2016 Esotropia 01/13/2003 02/10/2017 Overview (01/13/2003): 11/24- R sixth nerve palsy- improving MRI/MRA negative Alopecia 01/13/2003 02/10/2017 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/2002 09/20/2018 Overview (06/16/2002): not bx proven DIVERTICULOSIS OF COLON 06/16/200202/22 Menopause 06/16/2002 10/23/2021 Abnormal weight gain 06/16/2002 017 documented as of this encounter (statuses as of 08/20/2024) Immunizations Name Administration Dates Next Due COVID-19 [...] Sign Reading Time Taken Comments Blood Pressure 102/68 08/17/2024 10:03 AM EDT Pulse - - Temperature 36.8 °C (98.2 °F) 08/17/2024 10:03 AM E DT Respiratory Rate - - Oxygen Saturation - - Inhaled Oxygen Concentration - - Weight 68.9 kg (152 lb) 08/17/2024 10:03 AM EDT Height - - Body Mass Index 23.81 07/22/2024 1:27 PM EST documented in this encounter Progress Notes * Eduar Beckham MD - 08/17/2024 10:15 AM EDT HPI: Recall that Ms. Nereida Stephen is an 84 year old seen for IBD follow up. She was last seen in 2021. At that time, had cscopy which showed pseudopolyp vs mass; bx = IBD. At present, she has no complaints. On Mesalamaine 2.4 gms a day. BM's regular once daily, no bleeding, or urgency. EXAM: BP 102/68 | Temp 36.8 °C (98.2 °F) | Wt 68.9 kg (152 lb) | BMI 23.81 kg/m² | BSA 1.8 m² GENERAL: 81 year old female, frail appearing. She uses walker to ambulate around clinic, walks slowly. SKIN: Mild pallor HEENT: + vitiligo. She has JVP to mandible of jaw even when seated upright. NECK: supple, no lymphadenopathy, no masses or thyroid enlargement LUNGS: clear to auscultation anterior and posterior HEART: regular rate & rhythm, 3/6 systolic murmur ABDOMEN: moderately distended, dull to percurssion. EXTREMITIES: no palmar erythema, marked edema of thighs, no skin discoloration, no clubbing, no cyanosis NEURO: no lateralizing findings, Sensory/Motor grossly normal Labs reviewed IMPRESSION/RECOMMENDATIONS: IBD, symptomatic remission on 5 ASA Severe [...] due to comorbid frailty andsevere heart disease. * Emperatriz Delong CMA - 08/17/2024 10:06 AM EDT Chief Complaint Patient presents with Follow Up Follow up for Crohn's. Pt unsure why she is here today. With son Mery. EGD/[place] 2021. Per son pt taking mesalamine 2 tabs daily. BM every 2-3 days. Denies hard/dark stools, bleeding or abd pain/cramping. No loose stools. Per pt stools are formed. documented in this encounter Nursing Notes * Emperatriz Delong CMA - 08/17/2024 10:04 AM EDT Chief Complaint Patient presents with Follow Up Follow up for Crohn's. Pt unsure why she is here today. With son Mery. EGD/[place] 2021. Per son pt taking mesalamine 2 tabs daily. Pt currently not on any meds for her IBD. BM every 2-3 days. Denies hard/dark stools, bleeding or abd pain/cramping. No loose stools. Per pt stools are formed. documented in this encounter Plan of Treatment Upcoming Encounters Date Type Department Care Team (Late st Contact Info) Description 08/22/2024 12:40 PM EDT Office Visit General Internal Medicine [facility] [address] [facility] [place] [address] Leyda Ahn MD [address] [facility] [place] [address] 10/07/2024 2:20 PM EDT Office Visit General Internal Medicine [facility] [address] [facility] [place] [address] Leyda Ahn MD [address] [facility] [place] [address] 10/20/2024 2:00 PM EDT Office Visit Hematology/Oncology [facility] [address] [facility] [place] [phone] Patricia Shin CRNP [address] [place] [facility] [address] 10/25/2024 2:30 PM EDT Office Visit Rheumatology [facility] [address] [place] [phone] Jose Manuel Thurston CRNP [address] [facility] [place] [address] 11/21/2024 1:00 PM EDT Imaging Radiology [facility] [address] [place] [phone] 11/29/2024 8:30 AM EDT Office Visit Cardiology, [facility] [address] [place] [phone] Ritu Vasquez, MANOLO [address] [place] [address] Scheduled Procedures Name Priority Associated Diagnoses Date/Ti [...] encounter Medical Devices Implanted Type Area Hand Carver Device Identifier Shelf Expiration Date Model / Serial / Lot Valve Ce Aortic 21mm 3000tfx - [id number] Implanted:Qty : 1 on 04/17/[address] [facility] [place] - Non Human N/A: Chest [employer] 04/17/2010 3000TFX-2 [id number] / Patch Pericard 8x14cm [id number] - [id number] Implanted:Qty : 1 on 04/17/[address] [facility] [place] - Non Human N/A: Chest [employer] 12/05/2014 [id number]-[id number] / / [id number] Sut Steel 6 M654g - [id number] Implanted:Qty : 4 on 04/17/[address] [facility] [place] N/A: Chest DO NOT USE 06/17/2014 [id number] / / [id number] documented as of this encounter Visit Diagnoses Diagnosis Crohn's disease of large intestine without complication (HCC)- Primary Regional enteritis of large intestine documented in this encounter Advance Directives Documents on File Type Date Recorded Patient Bee Farmer Expl 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 Care Teams Rotor Casting Machine Setup Operator Relationship Specialty Start Date End Date Leyda Ahn MD [address] [facility] [place] [address] PCP - General Internal Medicine 02/02/24 documented as of this encounter"
--- OUTSIDE RECORDS SUMMARY | 2024-08-27 10:57 | External Medical Summary | Summary of Care ---
Author Name Unknown Organization [facility] Address [address] [place] [address] Phone [phone] Care Team Providers Care Gravity Meter Operator Name Role Phone Leyda Ahn MD Primary Care Provider [phone] Encounter Details Date Type Department Care Team (Late st Contact Info) Description 07/26/2024 Orders Only PATIENT PORTAL DO NOT DELETE THIS DEPT USED BY VESNA ANDRADE [id number] Allergies Active Allergy Reactions Criticality Noted Date Comments Pantoprazole 01/29/2022 Itchiness, rash Penicillins Hives 01/13/2003 hives documented as of this encounter (statuses as of 07/26/2024) Medications Acetaminophen ER 650 MG Oral Tablet Extended Release 2 pill daily in AM & 2 pills in afternoon if needed 5 Active oxygen IN GAS 2L/min(Oxygen) continuous via nasal cannula. 1 Each 3 Active Clobetasol Propionate 0.05 % External SolutionIndication s:Pruritic dermatosis of scalp,Scalp itch Apply topically to affected area 2 times a day. On scalp , use till better then as needed 25 mL 1 4 Active Cetirizine HCl 10 MG Oral Tablet (ZyrTEC Allergy)Indication s:Chronic rhinitis Take 1 Tablet by mouth in the morning. 4 Active Levothyroxine Sodium 100 MCG Oral Tablet (Levoxyl)Indicatio ns:Acquired hypothyroidism Take 1 Tablet by mouth in the morning. (at least 30 min prior to breakfast or other meds)--dec 02/03/2024, lab 10 wks. 90 Tablet 4 Active Digoxin 125 MCG Oral Tablet [...] to 4d/wk 07/06/2024 1 Tablet 5 Active Mesalamine 1.2 GM Oral Tablet Delayed Release (Lialda)Indication s:Crohn's disease of large intestine without complication (HCC) Take 2 Tablets by mouth in the morning. 90 Tablet 3 5 Active Gabapentin 100 MG Oral Capsule (Neurontin)Indicat ions:Idiopathic peripheral neuropathy,Spinal stenosis of lumbar region without neurogenic claudication Take 1 cap daily 90 Capsule 1 5 Active Furosemide 40 MG Oral Tablet (Lasix)Indications :Chronic diastolic heart failure due to valvular disease (HCC),Pulmonary hypertension (HCC),Stenosis of prosthetic aortic valve, sequela,Typical atrial flutter (HCC),Bilateral leg edema,History of transcatheter aortic valve replacement (TAVR),Paroxysmal atrial fibrillation (HCC),Other ascites,Acute on chronic right-sided heart failure (HCC) 40 mg tue,nigel,Sat, 20 mg other days from 07/22/2024, lab 10 days 45 Tablet 1 5 Active documented as of this encounter (statuses as of 07/26/2024) Active Problems Problem Noted Date Diagnosed Date [...] as of this encounter (statuses as of 07/26/2024) Resolved Problems Problem Noted Date Diagnosed Date Resolved Date Permanent atrial fibrillation 03/28/2019 10/28/2021 Chronic systolic CHF (conges tive heart failure) 03/28/2019 01/03/2021 CHF with right heart failure 03/21/2019 03/12/2022 Atherosclerosis of aorta 11/16/2018 Carpal tunnel syndrome 03/28/201302/10 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 Henriquez [facility] [place] [facility] [place] asymptomatic en plaque [...] well after 03/29 surgical repair LOC PRIM [id number] 05/09/2003 1010/2016 Esotropia 01/13/2003 02/10/2017 Overview (01/13/2003): 7/03- R sixth nerve palsy- improving MRI/MRA negative Alopecia 01/13/2003 02/10/2017 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/2002 09/20/2018 Overview (06/16/2002): not bx proven DIVERTICULOSIS OF COLON 06/16/200202/22 Menopause 06/16/2002 10/23/2021 Abnormal weight gain 06/16/2002 017 documented as of this encounter (statuses as of 07/26/2024) Immunizations Name Administration Dates Next Due COVID-19 mRNA, LNP-s, No Pre serve, 2-Dose Series (Moderna) 08/30/2020,07/25/2020 COVID-19, MRNA-LNP, PF, 30 M CG/0.3 mL, 12 YRS AND ABOVE, IM (PFIZER-Comirnat) [...] Date 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 Not on file Not on file Not on file documented as of this encounter Plan of Treatment Upcoming Encounters Date Type Department Care Team (Late st Contact Info) Description 08/17/2024 9:40 AM EDT Office Visit Gastroenterology, [facility] [address] [address] Eduar Beckham MD [address] [place] [place] [address] 08/22/2024 12:40 PM EDT Office Visit General Internal Medicine [address] [place] [address] [place] [address] Leyda Ahn MD [address] [place] [address] 10/07/2024 2:20 PM EDT Office Visit General Internal Medicine [facility] [address] [facility] [place] [address] Leyda Ahn MD [address] [facility] [place] [address] 10/20/2024 2:00 PM EDT Office Visit Hematology/Oncology [facility] [address] [facility] [place] [phone] Patricia Shin CRNP [address] [place] [address] 10/25/2024 2:30 PM EDT Office Visit Rheumatology [facility] 132 [facility] [place] [phone] Jose Manuel Thurston CRNP [address] [facility] [place], [place] [address] 11/21/2024 1:00 PM EDT Imaging Radiology [facility] [address] [facility] [place] [phone] 11/29/2024 8:30 AM EDT Office Visit Cardiology, [facility] 132 [facility] [place] [address] Ritu Vasquez PA-C [address] [place] [address] Scheduled Procedures Name Priority Associated Diagnoses Date/Ti [...] this encounter Medical Devices Implanted Type Area Maintenance Plumber Device Identifier Shelf Expiration Date Model / Serial / Lot Valve Ce Aortic 21mm 3000tfx - [id number] Implanted:Qty : 1 on 04/17/2010 at [place] [facility] [place] [facility] [place] Tissue - Non Human N/A: Chest [employer] ELISABETH 04/17/2010 3000TFX-2 / [id number] / Patch Pericard 8x14cm [id number] - [id number] Implanted:Qty : 1 on 04/17/2010 at [place] [facility] [place] Tissue - Non Human N/A: Chest [employer] 12/05/2014 [id number]-[id number] / / [id number] Sut Steel 6 [id number] - [id number] Implanted:Qty : 4 on 04/17/2010 at [place] [facility] [place] [facility] [place] N/A: Chest DO NOT USE 06/17/2014 [id number] / / [id number] documented as of this encounter Advance Directives Documents on File Type Date Recorded Patient Meat Cutting Teacher Expl 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 Care Teams Gravity Meter Operator Relationship Specialty Start Date End Date Leyda Ahn MD [address] [facility] [place] [address] PCP - General Internal Medicine 02/02/24 documented as of this encounter
--- OUTSIDE RECORDS SUMMARY | 2024-08-27 10:57 | External Medical Summary ---
Author Name Unknown Address Unknown Organization K09:[facility] [place] [address] Laboratory Report Ordering Provider Test Date Status BREANNA CHISHOLM 08/03/2024 10:17:57 Final Observation Date Value Abnormality Reference (Units ) Status BUN 08/03/2024 10:17:57 32 Above high normal 6-20 (mg/dL) Final Creatinine 08/03/2024 10:17:57 0.9 0.5-1.0 (mg/dL) Final Glomerular filtration rate/1.73 sq M.predicted [Volume Rate/Area] in Serum, Plasma or Blood by Creatinine-based formula (CKD-EPI) 08/03/2024 10:17:57 61 >=60 (mL/min) Final eGFR is calculated based on the CKD-EPI 2020 equation. Sodium 08/03/2024 10:17:57 138 135-146 (m mol/L) Final Potassium 08/03/2024 10:17:57 4.9 3.5-5.1 (m mol/L) Final Cl 08/03/2024 10:17:57 99 98-107 (mm ol/L) Final CO2 08/03/2024 10:17:57 31 22-32 (mmo l/L) Final Anion gap 08/03/2024 10:17:57 8 7-15 (mmol /L) Final Glucose 08/03/2024 10:17:57 84 70-120 (mg /dL) Final Albumin 08/03/2024 10:17:57 3.8 3.8-5.0 (g /dL) Final AST (Aspartate aminotransferase) 08/03/2024 10:17:57 38 Above high normal 10-35 (U/L) Final Alk Phos 08/03/2024 10:17:57 85 35-130 (U/ L) Final Bilirubin, Total 08/03/2024 10:17:57 2.4 Above high no rmal <=1.2 (mg/dL) Final Calcium 08/03/2024 10:17:57 9.5 8.4-10.2 ( mg/dL) Final Protein 08/03/2024 10:17:57 7.1 6.0-8.3 (g /dL) Final ALT (Alanine aminotransferase) 08/03/2024 10:17:57 6 Below low normal 10-35 (U/L) Final Performing Location [facility] [address] [place] [address]
--- OUTSIDE RECORDS SUMMARY | 2024-08-27 10:57 | External Medical Summary | Summary of Care ---
Author Name Unknown Organization [facility] Address [address] [place] [address] Phone [phone] Care Team Providers Care Reproducer Name Role Phone Leyda Ahn MD Primary Care Provider [phone] Reason for Visit * Reason Comments Outpatient Testing Encounter Details Date Type Department Care Team (Late st Contact Info) Description 08/03/2024 10:00 AM EDT Laboratory Laboratory [facility] [address] [place] [phone] [place], [address] [place] [address] Elevated LFTs; Chronic diastolic heart failure due to valvular disease (HCC); Other ascites; Acute on chronic right-sided heart failure (HCC) Allergies Active Allergy Reactions Criticality Noted Date Comments Pantoprazole 01/29/2022 Itchiness, rash Penicillins Hives 01/13/2003 hives documented as of this encounter (statuses as of 08/03/2024) Medications Acetaminophen ER 650 MG Oral Tablet [...] 10 days 45 Tablet 1 5 Active Mesalamine ER 0.375 GM Oral Capsule Extended Release 24 Hour (Apriso)Indication s:Crohn's disease of large intestine without complication (HCC) Take 4 Capsules by mouth in the morning. 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 Henriquez [facility] [place] asymptomatic en [...] well after 03/29 surgical repair LOC PRIM [id number] 05/09/2003 10/0 10/2016 Esotropia 01/13/2003 02/10/2017 Overview (01/13/2003): 7/03- R sixth nerve palsy- improving MRI/MRA negative Alopecia 01/13/2003 02/10/2017 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/2002 09/20/2018 Overview (06/16/2002): not bx proven DIVERTICULOSIS OF COLON 06/16/200202/22 Menopause 06/16/2002 10/23/2021 Abnormal weight gain 06/16/2002 017 documented as of this encounter (statuses as of 08/03/2024) Immunizations Name Administration Dates Next Due COVID-19 [...] Date 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 file Not on file Not on file documented as of this encounter Plan of Treatment Upcoming Encounters Date Type Department Care Team (Late st Contact Info) Description 08/17/2024 9:40 AM EDT Office Visit Gastroenterology, [facility] [address] [address] Eduar Beckham MD [address] [place] [address] 08/22/2024 12:40 PM EDT Office Visit General Internal Medicine [facility] 200 [facility] [place], [place] [address] Leyda Ahn MD 200 [facility] [place], [place] [address] 10/07/2024 2:20 PM EDT Office Visit General Internal Medicine [facility] [address] [facility] [place], [place] [address] Leyda Ahn MD [address] [facility] [place], [place] [address] 10/20/2024 2:00 PM EDT Office Visit Hematology/Oncology [facility] [address] [facility] [place], [place] [phone] Patricia Shin [facility]NP [address] [facility] [address] 10/25/2024 2:30 PM EDT Office Visit Rheumatology [facility] [address] [place] [phone] Jose Manuel Thurston CRNP [address] [facility] [place], [place] [address] 11/21/2024 1:00 PM EDT Imaging Radiology [facility] [address] [place] [phone] 11/29/2024 8:30 AM EDT Office Visit Cardiology, [facility] [address] [address] [address] Ritu Vasquez PA-C [address] [place] [address] Scheduled Procedures Name Priority Associated Diagnoses Date/Ti [...] this encounter Medical Devices Implanted Type Area Government Guard Device Identifier Shelf Expiration Date Model / Serial / Lot Valve Ce Aortic 21mm 3000tfx - [id number] Implanted:Qty : 1 on 04/17/2010 at [place] [facility] [place] Tissue - Non Human N/A: Chest [employer] ELISABETH 04/17/2010 3000TFX-2 1 / [id number] / Patch Pericard 8x14cm [id number] - [id number] Implanted:Qty : 1 on 04/17/2010 at [place] [facility] [place] Tissue - Non Human N/A: Chest [employer] 12/05/2014 PC-0814N / / [id number] Sut Steel 6 M654g - [id number] Implanted:Qty : 4 on 04/17/2010 at [place] [facility] [place] N/A: Chest DO NOT USE 06/17/2014 M654G / / [id number] documented as of this encounter Procedures Procedure Name Priority Date/Time Associated Diagnosis Comments BILIRUBIN, DIRECT Routine 08/03/2024 10: 17 AM EDT Elevated LFTs COMPREHENSIVE METABOLIC PANEL STAT 08/03/2024 10:17 AM EDT Chronic diastolic heart failure due to valvular disease (HCC) Other ascites Acute on chronic right-sided heart failure (HCC) documented in this encounter Results * (ABNORMAL) BILIRUBIN, DIRECT (08/03/2024 10:17 AM EDT) Bilirubin, Direct 1.0(H) 0.0 - 0.3 mg/dL 08/03/2024 10:45 AM EDT [facility] 56-02 Blood Venous blood specimen / Unknown Venipuncture / Unknown 08/03/2024 10:17 AM EDT 08/03/2024 10:17 AM EDT us Maxwell Sellers MD LAB BLOOD ORDERABLES Fin al Result [facility] [address] [place] [address] * (ABNORMAL) COMPREHENSIVE METABOLIC PANEL (08/03/2024 10:17 AM EDT) BUN 32(H) 6 - 20 mg/dL 08/03/2024 10:45 AM [facility] 56 CREATININE 0.9 0.5 - 1.0 mg/dL 08/03/2024 10:45 AM [facility] 56 EGFR 61 >=60 mL/min 08/03/2024 10:45 AM [facility] 56 Comment:eGFR is calculated b ased on the CKD-EPI 2020 equation. SODIUM 138 135 - 146 mmol/L 08/03/2024 10:45 AM [facility] 56 POTASSIUM 4.9 3.5 - 5.1 mmol/L 08/03/2024 10:45 AM [facility] 56 CHLORIDE 99 98 - 107 mmol/L 08/03/2024 10:45 AM [facility] 56 CO2 31 22 - 32 mmol/L 08/03/2024 10:45 AM [facility] 56 ANION GAP 8 7 - 15 mmol/L 08/03/2024 10:[address] GLUCOSE 84 70 - 120 mg/dL 08/03/2024 10:45 AM [facility] 56 Albumin 3.8 3.8 - 5.0 g/dL 08/03/2024 10:45 AM [facility] 56 AST 38(H) 10 - 35 U/L 08/03/2024 10:45 AM [facility] 56 Alkaline Phosphatase 85 35 - 130 U/L 08/03/2024 10:45 AM [facility] 56 Bilirubin, Total 2.4(H) <=1.2 mg/dL 08/03/2024 10:45 AM [facility] 56 CALCIUM 9.5 8.4 - 10.2 mg/dL 08/03/2024 10:45 AM [facility] 56 Protein 7.1 6.0 - 8.3 g/dL 08/03/2024 10:45 AM [facility] 56 ALT 6(L) 10 - 35 U/L 08/03/2024 10:45 AM [facility] 56 Blood Venous blood specimen / Unknown Venipuncture / Unknown 08/03/2024 10:17 AM EDT 08/03/2024 10:17 AM EDT Leyda Ahn MD LAB BLOOD ORDERABLES Final Resul t [facility] [address] [facility] [address] documented in this encounter Visit Diagnoses Diagnosis Elevated LFTs Other abnormal blood chemistry Chronic diastolic heart failure due to valvular disease (HCC) Other ascites Acute on chronic right-sided heart failure (HCC) documented in this encounter Advance Directives Documents on File Type Date Recorded Patient Rug Layer Expl 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 Care Teams Reproducer Relationship Specialty Start Date End Date [facility] Ahn [facility] [address] [facility] [address] PCP - General Internal Medicine 02/02/24 documented as of this encounter
--- OUTSIDE RECORDS SUMMARY | 2024-08-27 10:57 | External Medical Summary | Summary of Care ---
Author Name Unknown Organization [facility] Address [address] [place] [address] Phone [phone] Care Team Providers Care Warm In Name Role Phone Leyda Ahn MD Primary Care Provider [phone] Reason for Visit * Reason Comments eRx-Medication Refill Encounter Details Date Type Department Care Team (Late st Contact Info) Description 08/07/2024 Refill General Internal Medicine [facility] [address] [facility] [place] [address] Maxwell Sellers MD 200 [place] [address] Acquired hypothyroidism Allergies Active Allergy Reactions Criticality Noted Date Comments Pantoprazole 01/29/2022 Itchiness, rash Penicillins Hives 01/13/2003 hives documented as of this encounter (statuses as of 08/07/2024) Medications Acetaminophen ER 650 MG Oral Tablet Extended Release 2 pill daily in AM & 2 pills in afternoon if needed 03/20/20 15 Active oxygen IN GAS 2L/min(Oxygen ) continuous via nasal cannula. 1 Each 10/10/19 23 Active Clobetasol Propionate 0.05 % External SolutionIndicatio [...] daily 90 Capsule 1 07/22/19 25 Active Furosemide 40 MG Oral Tablet (Lasix)Indication s:Chronic diastolic heart failure due to valvular disease (HCC),Pulmonary hypertension (HCC),Stenosis of prosthetic aortic valve, sequela,Typical atrial flutter (HCC),Bilateral leg edema,History of transcatheter aortic valve replacement (TAVR),Paroxysmal atrial fibrillation (HCC),Other ascites,Acute on chronic right-sided heart failure (HCC) 40 mg tue,nigel,Sat, 20 mg other days from 07/22/2024, lab 10 days 45 Tablet 1 07/22/19 25 Active Mesalamine ER 0.375 [...] MEDS) 90 Tablet 1 08/08/19 25 Active Levothyroxine Sodium 100 MCG Oral Tablet (Levoxyl)Indicati ons:Acquired hypothyroidism Take 1 Tablet by mouth in the morning. (at least 30 min prior to breakfast or other meds)--02/03/2024, lab 10 wks. 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 Henriquez [facility] N/S asymptomatic en plaque cavernous sinus meningioma [...] well after 03/29 surgical repair LOC PRIM [id number] 05/09/2003 10/2016 Esotropia 01/13/2003 02/10/2017 Overview (01/13/2003): 11/24- R sixth nerve palsy- improving MRI/MRA negative Alopecia 01/13/2003 02/10/2017 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/2002 09/20/2018 Overview (06/16/2002): not bx proven DIVERTICULOSIS OF COLON 06/16/200202/22 Menopause 06/16/2002 10/23/2021 Abnormal weight gain 06/16/2002 017 documented as of this encounter (statuses as of 08/07/2024) Immunizations Name Administration Dates Next Due COVID-19 [...] Date 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 (AT LEAST 30 MIN PRIOR TO BREAKFAST OR OTHER MEDS)Authorizing Provider: Ben AHN User: TISHA PIERSON documented in this encounter Plan of Treatment Upcoming Encounters Date Type Department Care Team (Late st Contact Info) Description 08/17/2024 9:40 AM EDT Office Visit Gastroenterology, [facility] 132 [facility] [place] [address] Eduar Beckham MD [address] [place] [address] 08/22/2024 12:40 PM EDT Office Visit General Internal Medicine [address] [place] [address] Leyda Ahn MD [address] [place] [address] [place] [address] 10/07/2024 2:20 PM EDT Office Visit General Internal Medicine [address] [place], [place] [address] Leyda Ahn MD [address] [place] [address] [place] [address] 10/20/2024 2:00 PM EDT Office Visit Hematology/Oncology [facility] [address] [facility] [place] [address] Patricia Shin CRNP [address] [place], [place] [address] [place] [address] 10/25/2024 2:30 PM EDT Office Visit Rheumatology [facility] [address] [place] [phone] Jose Manuel Thurston CRNP [address] [facility] [place] [address] 11/21/2024 1:00 PM EDT Imaging Radiology [facility] [address] [place] [address] 11/29/2024 8:30 AM EDT Office Visit Cardiology, [facility] [address] [place] [address] Ritu Vasquez PA-C [address] [place] [address] Scheduled Procedures Name Priority Associated Diagnoses Date/Ti [...] this encounter Medical Devices Implanted Type Area Plastic Welding Machine Operator Device Identifier Shelf Expiration Date Model / Serial / Lot Valve Ce Aortic 21mm 3000tfx - [id number] Implanted:Qty : 1 on 04/17/2010 at OR [facility] Tissue - Non Human N/A: Chest [employer] ELISABETH 04/17/2010 3000TFX-2 [id number] / Patch Pericard 8x14cm [id number] - [id number] Implanted:Qty : 1 on 04/17/2010 at OR [facility] Tissue - Non Human N/A: Chest [employer] 12/05/2014 PC-0814N / / [id number] Sut Steel 6 M654g - [id number] Implanted:Qty : 4 on 04/17/2010 at OR [facility] N/A: Chest DO NOT USE 06/17/2014 [id number] / / [id number] documented as of this encounter Visit Diagnoses Diagnosis Acquired hypothyroidism Unspecified hypothyroidism documented in this encounter Advance Directives Documents on File Type Date Recorded Patient Account Liaison Hospice Expl 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 Care Teams Warm In Relationship Specialty Start Date End Date Leyda Ahn MD [address] [facility] [place] [address] PCP - General Internal Medicine 02/02/24 documented as of this encounter
--- OUTSIDE RECORDS SUMMARY | 2024-08-27 10:57 | External Medical Summary | Summary of Care ---
Author Name Unknown Organization [facility] Address [address] [place] [address] Phone [phone] Care Team Providers Care Diet Aid Name Role Phone Leyda Ahn MD Primary Care Provider [phone] Reason for Visit * Reason Onset Date Comments Precert Denied 08/01/2024 Mesalamine Encounter Details Date Type Department Care Team (Late st Contact Info) Description 08/01/2024 Telephone [facility]astroenterology, [facility] [place] [address] Jason Lagos CRNP [address] [facility] [place] [address] Precert Denied (Mesalamine) Allergies Active Allergy Reactions Criticality Noted Date Comments Pantoprazole 01/29/2022 Itchiness, rash Penicillins Hives 01/13/2003 hives documented as of this encounter (statuses as of 08/03/2024) Medications Acetaminophen ER 650 MG Oral Tablet Extended Release 2 pill daily in AM & 2 pills in afternoon if needed 03/20/20 15 Active oxygen IN GAS 2L/min(Oxygen) continuous via nasal cannula. 1 Each 10/10/19 23 Active Clobetasol Propionate 0.05 % External SolutionIndication s:Pruritic dermatosis of scalp,Scalp itch Apply topically to affected area 2 times a day. On scalp , use till better then as needed 25 mL 1 02/02/20 24 Active Cetirizine HCl 10 MG Oral Tablet (ZyrTEC Allergy)Indication s:Chronic rhinitis Take 1 Tablet by mouth in the morning. 04/05/20 24 Active Levothyroxine Sodium 100 MCG Oral Tablet (Levoxyl)Indicatio ns:Acquired hypothyroidism Take 1 Tablet by mouth in the morning. (at least 30 min prior to breakfast or other meds)--dec 02/03/2024, lab 10 wks. 90 Tablet 05/04/20 24 Active Digoxin 125 MCG Oral Tablet [...] 04/05/2024--de c to 4d/wk 07/06/2024 1 Tablet 07/06/19 25 [...] morning. 120 Capsule 12 08/03/19 25 Active Mesalamine 1.2 GM Oral Tablet Delayed Release (Lialda)Indication s:Crohn's disease of large intestine without complication (HCC) Take 2 Tablets by mouth in the morning. 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 States patient has not tried and failed Mesalamine ER 0.375 gm capsules. Please advise Thanks * Telephone Encounter - Haven Oseguera RN - 08/02/2024 11:52 AM EDT Images from the original note were not included. Type Date User Summary Attachment Precert 08/02/2024 10:51 AM Dianne Polanco OSA Please see scanned fax from insurance under the Media Tab. - Note: Please see scanned fax from insurance under the Media Tab. Approved/Denied: denied Formulary alternatives not tried/failed Drug Name and Formulation: Mesalamine 1.2 GM Oral Tablet Delayed Release (Lialda), 2 Tablets by mouth in the morning How Prescribed(directions/sig): Mesalamine 1.2 GM Oral Tablet Delayed Release (Lialda), 2 Tablets by mouth in the morning Qty and Day Supply: 120/30 Did you receive insurance information from outside the chart? No, received insurance information within the chart Valid auth start date: N/A Valid auth end date: N/A Rx Insurance Info: miguel MALAGON Reference #: Dianne Polanco Medication Physician Primary Care Sports Medicine III [facility] ([facility]) P: [phone] F: [phone] 08/02/24,10:51 AM * Telephone Encounter - Keara Degroot LPN - 08/01/2024 2:09 PM EDT Gastro Pre-Cert Request Specialty Medication: No. Medication/Disease State Information: Medication: Mesalamine 1.2 GM Oral Tablet Delayed Release (Lialda), 2 Tablets by mouth in the morning Diagnosis (including ICD-10): Crohn's disease of large intestine without complication (HCC) [K50.10] Site of care: Self-administered - route pre-cert request to [id number] Office Information: Prescriber: RAJAN Martinez documented in this encounter Plan of Treatment Upcoming Encounters Date Type Department Care Team (Late st Contact Info) Description 08/17/2024 9:40 AM EDT Office Visit Gastroenterology, [facility] [address] [place] [address] Eduar Beckham MD [address] [place] [address] 08/22/2024 12:40 PM EDT Office Visit General Internal Medicine [address] [place] [address] Leyda Ahn MD [address] [place] [address] [place] [address] 10/07/2024 2:20 PM EDT Office Visit General Internal Medicine [facility] 200 [facility] [place] [address] Leyda Ahn MD [address] [place] [address] [place] [address] 10/20/2024 2:00 PM EDT Office Visit Hematology/Oncology [facility] 200 [facility] [place] [phone] Patricia Shin CRNP [address] [place] [address] [place] [address] 10/25/2024 2:30 PM EDT Office Visit Rheumatology [facility] [address] [place] [phone] Jose Manuel Thurston, CORRECTIONAL MEDICINE PHYSICIAN [address] [facility] [place], [place] [address] 11/21/2024 1:00 PM EDT Imaging Radiology [facility] [address] [place] [phone] 11/29/2024 8:30 AM EDT Office Visit Cardiology, [facility] [address] [place] [address] Ritu Vasquez, MANOLO [address] [place] [address] Scheduled Procedures Name Priority Associated Diagnoses Date/Ti [...] this encounter Medical Devices Implanted Type Area Broom Man Device Identifier Shelf Expiration Date Model / Serial / Lot Valve Ce Aortic 21mm 3000tfx - [id number] Implanted:Qty : 1 on 04/17/2010 at OR [facility] Tissue - Non Human N/A: Chest [employer] ELISABETH 04/17/2010 3000TFX-2 [id number] / Patch Pericard 8x14cm [id number] - [id number] Implanted:Qty : 1 on 04/17/2010 at OR [facility] Tissue - Non Human N/A: Chest [employer] 12/05/2014 PC-0814N / / [id number] Sut Steel 6 M654g - [id number] Implanted:Qty : 4 on 04/17/2010 at OR [facility] N/A: Chest DO NOT USE 06/17/2014 M654G / / [id number] documented as of this encounter Visit Diagnoses Diagnosis Crohn's disease of large intestine without complication (HCC)- Primary Regional enteritis of large intestine documented in this encounter Advance Directives Documents on File Type Date Recorded Patient Automation And Controls Instructor Expl 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 Care Teams Diet Aid Relationship Specialty Start Date End Date Leyda Ahn MD 200 [facility], [place] [phone] PCP - General Internal Medicine 02/02/24 documented as of this encounter
--- OUTSIDE RECORDS SUMMARY | 2024-08-27 10:57 | External Medical Summary ---
Author Name Unknown Address Unknown Organization K09:[facility] [place] [address] Laboratory Report Ordering Provider Test Date Status CASE WHITLOCK 08/03/2024 10:17:57 Final Observation Date Value Abnormality Reference (Units ) Status Bilirubin, Direct 08/03/2024 10:17:57 1.0 Above high normal 0.0-0.3 (mg/dL) Final Performing Location [facility] [place] [address]
--- OUTSIDE RECORDS SUMMARY | 2024-08-27 10:57 | External Medical Summary | Summary of Care ---
Author Name Unknown Organization [facility] Address [address] [place] [address] Phone [phone] Care Team Providers Care Civil Lawyer Name Role Phone Leyda Ahn MD Primary Care Provider [phone] Reason for Visit * Reason Onset Date Comments Precert Denied 08/01/2024 Mesalamine Encounter Details Date Type Department Care Team (Late st Contact Info) Description 08/01/2024 Telephone [facility]astroenterology, [facility] [place] [address] Taylor Whaley CRNP [facility] [place] [address] Precert Denied (Mesalamine) Allergies Active Allergy Reactions Criticality Noted Date Comments Pantoprazole 01/29/2022 Itchiness, rash Penicillins Hives 01/13/2003 hives documented as of this encounter (statuses as of 08/02/2024) Medications Acetaminophen ER 650 MG Oral Tablet [...] as of this encounter (statuses as of 08/02/2024) Active Problems Problem Noted Date Diagnosed Date [...] as of this encounter (statuses as of 08/02/2024) Resolved Problems Problem Noted Date Diagnosed Date Resolved Date Permanent atrial fibrillation 03/28/2019 10/28/2021 Chronic systolic CHF (conges tive heart failure) 03/28/2019 01/03/2021 CHF with right heart failure 03/21/2019 03/12/2022 Atherosclerosis of aorta 11/16/2018 Carpal tunnel syndrome 03/28/201302/10 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 Henriquez [facility] well after 03/29 surgical repair LOC PRIM [id number] 05/09/2003 10/0 10/2016 Esotropia 01/13/2003 02/10/2017 Overview (01/13/2003): 11/24- R sixth nerve palsy- improving MRI/MRA negative Alopecia 01/13/2003 02/10/2017 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/2002 09/20/2018 Overview (06/16/2002): not bx proven DIVERTICULOSIS OF COLON 06/16/200202/22 Menopause 06/16/2002 10/23/2021 Abnormal weight gain 06/16/2002 017 documented as of this encounter (statuses as of 08/02/2024) Immunizations Name Administration Dates Next Due COVID-19 [...] 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 States patient has not tried and failed Mesalamine ER 0.375 gm capsules. Please advise Thanks * Telephone Encounter - Haven Oseguera RN - 08/02/2024 11:52 AM EDT Images from the original note were not included. Type Date User Summary Attachment Precert 08/02/2024 10:51 AM Dianne Polanco, ROSIBEL Please see scanned fax from insurance under [...] auth end date: N/A Rx Insurance Info: adelitaa [place] Reference #: Dianne Polanco Medication Logger III [facility] ([facility]) P: [phone] F: [phone] 08/02/24,10:51 AM * Telephone Encounter - Keara Degroot LPN - 08/01/2024 2:09 PM EDT Gastro Pre-Cert Request Specialty Medication: No. Medication/Disease State Information: Medication: Mesalamine 1.2 GM Oral Tablet Delayed Release (Lialda), 2 Tablets by mouth in the morning Diagnosis (including ICD-10): Crohn's disease of large intestine without complication (HCC) [K50.10] Site of care: Self-administered - route pre-cert request to [id number] Office Information: Prescriber: RAJAN Martinez documented in this encounter Plan of Treatment Upcoming Encounters Date Type Department Care Team ([facility] Contact Info) Description 08/17/2024 9:40 AM EDT Office Visit Gastroenterology, [facility] 132 [facility] [place] [address] Eduar Beckham MD [address] [place] [address] 08/22/2024 12:40 PM EDT Office Visit General Internal Medicine [facility] 200 [facility] [place], [place] [address] Leyda Ahn MD [address] [facility] [place] [address] 10/07/2024 2:20 PM EDT Office Visit General Internal Medicine [facility] [address] [facility] [place], [place] [address] Leyda Ahn MD [address] [facility] [place], [place] [address] 10/20/2024 2:00 PM EDT Office Visit Hematology/Oncology [facility] [address] [facility] [place], [place] [phone] Patricia Shin [facility] [address] [facility] [address] 10/25/2024 2:30 PM EDT Office Visit Rheumatology [facility] 132 [facility] [place] [phone] Jose Manuel Thurston CRNP [address] [facility] [place], [place] [address] 11/21/2024 1:00 PM EDT Imaging Radiology [facility] [address] [place] [phone] 11/29/2024 8:30 AM EDT Office Visit Cardiology, [facility] 132 [facility] [place] [address] Ritu Vasquez PA-C [address] [place] [address] Scheduled Procedures Name Priority Associated Diagnoses Date/Ti [...] encounter Medical Devices Implanted Type Area Director Government Device Identifier Shelf Expiration Date Model / Serial / Lot Valve Ce Aortic 21mm 3000tfx - [id number] Implanted:Qty : 1 on 04/17/2010 at [place] [facility] Tissue - Non Human N/A: Chest [employer] ELISABETH 04/17/2010 3000TFX-2 / [id number] / Patch Pericard 8x14cm [id number] - [id number] Implanted:Qty : 1 on 04/17/2010 at [place] [facility] Tissue - Non Human N/A: Chest [employer] 12/05/2014 PC-0814N / / [id number] Sut Steel 6 M654g - [id number] Implanted:Qty : 4 on 04/17/2010 at [place] [facility] N/A: Chest DO NOT USE 06/17/2014 M654G / / [id number] documented as of this encounter Advance Directives Documents on File Type Date Recorded Patient Baggage Security Checker Expl 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 Care Teams Civil Lawyer Relationship Specialty Start Date End Date Leyda Ahn MD [address] [place] [address] PCP - General Internal Medicine 02/02/24 documented as of this encounter
--- OUTSIDE RECORDS SUMMARY | 2024-08-27 10:57 | External Medical Summary | Summary of Care ---
Author Name Unknown Organization [facility] Address [address] [place] [address] Phone [phone] Care Team Providers Care Supply Coordinator Name Role Phone Leyda Ahn MD Primary Care Provider [phone] Reason for Visit * Reason Onset Date Comments Precert Denied 08/01/2024 Mesalamine Encounter Details Date Type Department Care Team (Late st Contact Info) Description 08/01/2024 Telephone Gastroenterology, [facility] [address] [place] [address] Taylor Whaley CRNP [address] [facility] [place] [address] Precert Denied (Mesalamine) Allergies Active Allergy Reactions [...] 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 Medication/Disease State Information: Medication: Mesalamine 1.2 GM Oral Tablet Delayed Release (Lialda), 2 Tablets by mouth in the morning Diagnosis (including ICD-10): Crohn's disease of large intestine without complication (HCC) [K50.10] Site of care: Self-administered - route pre-cert request to [id number] Office Information: Prescriber: RAJAN Martinez documented in this encounter Plan of Treatment Upcoming Encounters Date Type Department Care Team ([facility] Contact Info) Description 08/17/2024 9:40 AM EDT Office Visit Gastroenterology, [facility] [address] [facility] [place] [address] Eduar Beckham MD [address] [place] [address] 08/22/2024 12:40 PM EDT Office Visit General Internal Medicine [facility] [address] [facility] [place], [place] [address] Leyda Ahn MD [address] [place] [address] 10/07/2024 2:20 PM EDT Office Visit General Internal Medicine [facility] [address] [facility] [place], [place] [address] Leyda Ahn MD [address] [facility] [place], [place] [address] 10/20/2024 2:00 PM EDT Office Visit Hematology/Oncology [facility] [address] [facility] [place], [place] [phone] Patricia Shin [facility] [address] [facility] [address] 10/25/2024 2:30 PM EDT Office Visit Rheumatology [facility] [address] [facility] [place] [phone] Jose Manuel Thurston CRNP [address] [facility] [place], [place] [address] 11/21/2024 1:00 PM EDT Imaging Radiology [facility] [address] [place] [phone] 11/29/2024 8:30 AM EDT Office Visit Cardiology, [facility] [address] [facility] [place] [address] Ritu Vasquez PA-C [address] [place] [address] Scheduled Procedures Name Priority Associated Diagnoses Date/Ti [...] this encounter Medical Devices Implanted Type Area Pilot Teacher Device Identifier Shelf Expiration Date Model / Serial / Lot Valve Ce Aortic 21mm 3000tfx - [id number] Implanted:Qty : 1 on 04/17/2010 at OR [facility] Tissue - Non Human N/A: Chest [employer] 04/17/2010 3000TFX-2 / [id number] / Patch Pericard 8x14cm [id number] - [id number] Implanted:Qty : 1 on 04/17/2010 at OR [facility] Tissue - Non Human N/A: Chest [employer] 12/05/2014 [id number] / / [id number] Sut [employer] 6 [id number] - [id number] Implanted:Qty : 4 on 04/17/2010 at OR [facility] N/A: Chest DO NOT USE 06/17/2014 [id number] / / [id number] documented as of this encounter Advance Directives Documents on File Type Date Recorded Patient Dot Net Developer Expl 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 Care Teams Supply Coordinator Relationship Specialty Start Date End Date Leyda Ahn MD [address] [place] [address] PCP - General Internal Medicine 02/02/24 documented as of this encounter
--- OUTSIDE RECORDS SUMMARY | 2024-08-27 10:57 | External Medical Summary | Summary of Care ---
Author Name Unknown Organization [facility] Address [address] [place] [address] Phone [phone] Care Team Providers Care News Video Editor Name Role Phone Phan Ahn MD Primary Care Provider [phone] Reason for Visit * Reason Comments Acute Leg swelling, abdomi nal swelling Encounter Details Date Type Department Care Team (Latest Contact Info) Description 07/22/2024 1:00 PM EST Office Visit General Internal Medicine [facility] [address] [facility] [place] [address] Phan Ahn MD [address] [place] [address] Chronic diastolic heart failure due to valvular disease (HCC)*; Pulmonary hypertension (HCC); Stenosis of prosthetic aortic valve, sequela; Typical atrial flutter (HCC); Bilateral leg edema; History of transcatheter aortic valve replacement (TAVR); Acquired hypothyroidism; Thrombocytopenia (HCC); Elevated bilirubin; 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); B12 deficiency; COPD, group B, by GOLD 2017 classification (HCC); Chronic rhinitis; Osteopenia of necks of both femurs; Idiopathic peripheral neuropathy; Spinal stenosis of lumbar region without neurogenic claudication; History of chondrosarcoma; Paroxysmal atrial fibrillation (HCC); Other ascites; Acute on chronic right-sided heart failure (HCC); Skin ulcer of cheek, limited to breakdown of skin (HCC); Epigastric hernia; Chronic hypoxic respiratory failure, on home oxygen therapy (HCC); Chronic right-sided heart failure (HCC); History of resection of meningioma; Alcohol ingestion of more than 4 drinks/week Allergies Active Allergy Reactions Criticality Noted Date Comments Pantoprazole 01/29/2022 Itchiness, rash Penicillins Hives 01/13/2003 hives documented as of this encounter (statuses as of 08/11/2024) Medications Acetaminophen ER 650 MG Oral Tablet Extended Release 2 pill daily in AM & 2 pills in afternoon if needed 015 Active Clobetasol Propionate 0.05 % External SolutionIndicatio ns:Pruritic dermatosis of scalp,Scalp itch Apply topically to affected area 2 times a day. On scalp , use till better then as needed 25 mL 1 024 Active Cetirizine HCl 10 MG Oral Tablet (ZyrTEC Allergy)Indicatio ns:Chronic rhinitis Take 1 Tablet by mouth in the morning. 024 Active Digoxin 125 MCG Oral Tablet (Lanoxin)Indicati ons:Paroxysmal atrial flutter (HCC) Take 1 Tablet by mouth once a day on Thursday, Thursday, and Thursday only. Take one 3 days per week 024 Active Albuterol Sulfate HFA 108 (90 Base) MCG/ACT Inhalation Aerosol SolutionIndicatio ns:COPD, mild (HCC) Inhale 2 Puffs by mouth every 4 hours as needed for Cough, Shortness of Breath or Wheezing. 20.1 g 3 025 Active Metoprolol Succinate ER 25 MG Oral Tablet Extended Release 24 Hour (toPROL XL)Indications:Pa roxysmal atrial fibrillation (HCC) Take 1 Tablet by mouth in the morning. 90 Tablet 3 025 Active Aspirin 81 MG Oral Tablet Delayed Release Take one 3 days per week 025 Active Hydrocortisone 2.5 % External CreamIndications: Eczematous skin lesions,Dry skin Apply topically to affected area 2 times a day. To affected area. On Rt upper back for 1 week or till better then as needed 30 g 1 025 Active B-12 1000 MCG Oral TabletIndications :B12 deficiency 1 tab daily, start 04/05/2024--d ec to 4d/wk 07/06/2024 1 Tablet 025 Active Gabapentin 100 MG Oral Capsule (Neurontin)Indica tions:Idiopathic peripheral neuropathy,Spinal stenosis of lumbar region without neurogenic claudication Take 1 cap daily 90 Capsule 1 025 Active Furosemide 40 MG Oral Tablet (Lasix)Indication s:Chronic diastolic heart failure due to valvular disease (HCC),Pulmonary hypertension (HCC),Stenosis of prosthetic aortic valve, sequela,Typical atrial flutter (HCC),Bilateral leg edema,History of transcatheter aortic valve replacement (TAVR),Paroxysmal atrial fibrillation (HCC),Other ascites,Acute on chronic right-sided heart failure (HCC) 40 mg daily--inc 08/11/2024, stat lab 08/22/24 45 Tablet 1 025 Active oxygen IN GAS 2L/min(Oxygen ) continuous via nasal cannula. 1 Each 023 2024 Discontinued Zoster Vac Recomb Adjuvanted 50 MCG/0.5ML Intramuscular Suspension Reconstituted (Shingrix)Indicat ions:Need for shingles vaccine Inject 0.5 mL into a large muscle now and repeat dose in 60 to 180 days 1 Each 1 024 2024 Discontinued(M edication List Clean Up) Gabapentin 100 MG Oral Capsule (Neurontin)Indica tions:Idiopathic peripheral neuropathy,Spinal stenosis of lumbar region without neurogenic claudication Take 1 tab daily, 2nd as needed per pt 04/17 024 2024 Discontinued(R efill) Levothyroxine Sodium 100 MCG Oral Tablet (Levoxyl)Indicati ons:Acquired hypothyroidism Take 1 Tablet by mouth in the morning. (at least 30 min prior to breakfast or other meds)--dec 02/03/2024, lab 10 wks. 90 Tablet 024 2024 Discontinued Furosemide 40 MG Oral Tablet (Lasix)Indication s:Stenosis of prosthetic aortic valve, sequela,Pulmonary hypertension (HCC),Paroxysmal atrial fibrillation (HCC),Paroxysmal atrial flutter (HCC),History of transcatheter aortic valve replacement (TAVR),Bilateral leg edema,Chronic diastolic heart failure due to valvular disease (HCC) Take 1 Tablet by mouth. 40 mg tue,nigel,Sa. Take an extra day if more leg swelling 024 2024 Discontinued Mesalamine 1.2 GM Oral Tablet Delayed Release (Lialda)Indicatio ns:Crohn's disease of large intestine without complication (HCC) Take 2 Tablets by mouth in the morning. 90 Tablet 3 025 2024 Discontinued(F ormulary/Cost) Furosemide 40 MG Oral Tablet (Lasix)Indication s:Chronic diastolic heart failure due to valvular disease (HCC),Pulmonary hypertension (HCC),Stenosis of prosthetic aortic valve, sequela,Typical atrial flutter (HCC),Bilateral leg edema,History of transcatheter aortic valve replacement (TAVR),Paroxysmal atrial fibrillation (HCC),Other ascites,Acute on chronic right-sided heart failure (HCC) 40 mg tue,nigel,Sat, 20 mg other days from 07/22/2024, lab 10 days 45 Tablet 1 025 2024 Discontinued documented as of this encounter (statuses as of 08/11/2024) Active Problems Problem Noted Date Diagnosed Date [...] as of this encounter (statuses as of 08/11/2024) Resolved Problems Problem Noted Date Diagnosed Date Resolved Date Permanent atrial fibrillation 03/28/2019 10/28/2021 Chronic systolic CHF (conges tive heart failure) 03/28/2019 01/03/2021 CHF with right heart failure 03/21/2019 03/12/2022 Atherosclerosis of aorta 11/16/2018 Carpal tunnel syndrome 03/28/201302/10 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 [place] [facility] [place] asymptomatic en plaque cavernous [...] well after 03/29 surgical repair LOC PRIM [id number] 05/09/2003 10/10/2016 Esotropia 01/13/2003 02/10/2017 Overview (01/13/2003): 11/24- R sixth nerve palsy- improving MRI/MRA negative Alopecia 01/13/2003 02/10/2017 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/2002 09/20/2018 Overview (06/16/2002): not bx proven DIVERTICULOSIS OF COLON 06/16/200202/22 Menopause 06/16/2002 10/23/2021 Abnormal weight gain 06/16/2002 017 documented as of this encounter (statuses as of 08/11/2024) Immunizations Name Administration Dates Next Due COVID-19 [...] Date 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 Not on file Not on file Not on file documented as of this encounter Last Filed Vital Signs Vital Sign Reading Time Taken Comments Blood Pressure 98/60 07/22/2024 1:27 PM EST Pulse 88 07/22/2024 1:27 PM EST Temperature 36.7 °C (98.1 °F) 07/22/2024 1:27 PM ES T Respiratory Rate - - Oxygen Saturation 99% 07/22/2024 1:27 PM EST Inhaled Oxygen Concentration - - Weight 66.8 kg (147 lb 3.2 oz) 07/22/2024 1:27 PM EST Height 170.2 cm (5' 7") 07/22/2024 1:27 PM EST Body Mass Index 23.05 07/22/2024 1:27 PM EST documented in this encounter Progress Notes * Phan Ahn MD - 07/22/2024 1:00 PM EST SUBJECTIVE: Nereida Stephen is a 83 year old female. Chief Complaint Patient presents with Acute Leg swelling, abdominal swelling Nursing Notes: Edie Pimentel LPN 07/22/24 1336 Signed The patient has been properly identified by confirmation of name and date of . Chief Complaint Patient presents with Follow Up Leg swelling, abdominal swelling Patient here for swelling-bilateral legs worsening, symptoms for two weeks, abdominal swelling maybe a little longer than two weeks. Moving bowels okay but not urinating very much. Took extra 1/2 dose of lasix on Thursday this week. HPI: 3 mth f/u Wt Readings from Last 10 Encounters: 07/22/24 147 lb 3.2 oz (66.8 kg) 07/01/24 142 lb 3.2 oz (64.5 kg) 05/30/24 138 lb (62.6 kg) 05/16/24 137 lb 14.4 oz (62.6 kg) 05/12/24 137 lb 8 oz (62.4 kg) 05/11/24 139 lb 4.8 oz (63.2 kg) 04/15/24 136 lb 9.6 oz (62 kg) 04/05/24 134 lb 14.4 oz (61.2 kg) 03/02/24 122 lb (55.3 kg) 02/24/24 125 lb 8 oz (56.9 kg) BP Readings from Last 8 Encounters: 07/22/24 98/60 07/01/24 98/62 05/30/24 122/54 05/16/24 102/70 05/12/24 108/72 05/11/24 118/86 04/15/24 128/80 04/05/24 112/74 H/o bioprosthetic aortic valve stenosis, SP transcatheter [...] started on Entresto and continued Lasix by vp & general counsel in [place] 08/03/23 for diagnosis of atrial flutter, pulmonary hypertension, CHF- -PAF, slow atrial flutter on EKG, not on anticoagulation due to past bleeding 11/15-saw Dr. Jordan, 3 day Zio showed atrial flutter no tachycardia or bradycardia recommend use of oxygen at night admitted to [facility] 11/2023 Echo-LVEF 55 to 60%moderate concentric LVH, [...] week, increased to Lasix 40mg daily at [facility] for bilateral leg edema 01/08/202404/17--saw [facility] 03/02/24> [...] been scheduled yet, nurse to follow up Seen in clinic by Dr. Graves 01/21/2024 SP fall at a pharmacy,falling backwards hitting her head, unsure if she had lost consciousness. EKG had shown atrial flutter with variable block, had labs and CT of the head, orthostatics negative 01/21/2024-CT head-no interval changes from last CT head 03/22/20196648-hxxa-ku-moderate age-related cerebral atrophy with compensatory dilation of [...] not use oxygen regularly. -- -04/17-reg now History of meningioma status post gamma knife surgery 05/2014. 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- resection mid lower sternum and right costal cartilage and anterior chest wall reconstruction with mesh and pectoral flap Hypothyroidism- -on supplement Daily alcohol intake, past tobacco abuse History of vitamin-D deficiency completed 84864 units weekly for 12 weeks in 2022, currently not onsupplements Diagnosed with severe B12 deficiency on labs 02/16/2023, started B12 weekly for 4 weeks and then monthly getting her 2nd dose today, she will be going to [place] in 3 weeks till August, advised to havelabs repeated in [place] in about a month and if stable [...] be scheduled, has appointment with GI 08/17/2024 DEXA schedule 11/21/2024, Rheumatology 10/25/202404/17-scalp itching has improved with clobetasol solution as well with resolution of hyperkeratosisand hydrocortisone OTC to the affected area on the right upper back Taking Zyrtec for itchy watery eyes denies any runny nose Also had pain in her neck and received injections by [facility] pain [facility] currently taking Tylenol 3 a day, off aspirin, taking gabapentin only 1 a day 07/01/2024-INR 1.4, B12 1939, TSH 0.76, stable BMP except potassium 6.1, [...] Results Component Value Date/Time POTASSIUM - [facility] 6.1 (H) 07/01/2024 01:52 PM POTASSIUM - [facility] 4.2 05/30/2024 11:35 AM POTASSIUM - [facility] 5.3 (H) 04/04/2024 01:22 PM POTASSIUM - [facility] 3.9 09/19/2022 03:07 [...] Results Component Value Date/Time AST - [facility] 64 (H) 07/01/2024 01:52 PM AST - [facility] 49 (H) 04/04/2024 01:22 PM AST - [facility] 53 (H) 01/21/2024 12:27 PM AST - [facility] 42 (H) 06/15/2020 01:48 PM AST - [facility] 43 (H) 06/08/2020 11:45 AM AST - [facility] 39 (H) 02/22/2020 10:36 AM ALT Results: Lab Results Component Value Date/Time ALT - [facility] 9 (L) 07/01/2024 01:52 PM ALT - [facility] 16 04/04/2024 01:22 PM ALT - [facility] 24 01/21/2024 12:27 PM ALT - [facility] 25 06/15/2020 01:48 PM ALT - [facility] 30 06/08/2020 11:45 AM ALT - [facility] 25 02/22/2020 10:36 AM ALT-OUTSIDE LAB 31 (A) 05/31/2019 12:00 AM Results for orders placed or performed in visit on 07/01/24 PT INR Result Value Ref Range Prothrombin Time 16.9 (H) 11.6 - 15.2 seconds INR 1.4 (H) 0.8 - 1.2 TSH WITH FREE T4 IF INDICATED Result Value Ref Range TSH 0.76 0.27 - 4.20 uIU/mL VITAMIN B12 Result Value Ref Range Vitamin B12 1,939 (H) 232 - 1,245 pg/mL COMPREHENSIVE METABOLIC PANEL Result Value Ref Range BUN 26 (H) 6 - 20 mg/dL CREATININE 0.9 0.5 - 1.0 mg/dL EGFR 66 >=60 mL/min SODIUM 138 135 - 146 mmol/L POTASSIUM 6.1 (H) 3.5 - 5.1 mmol/L CHLORIDE 99 98 - 107 mmol/L CO2 27 22 - 32 mmol/L ANION GAP 12 7 - 15 mmol/L GLUCOSE 82 70 - 120 mg/dL Albumin 4.0 3.8 - 5.0 g/dL AST 64 (H) 10 - 35 U/L Alkaline Phosphatase 99 35 - 130 U/L Bilirubin, Total 2.7 (H) <=1.2 mg/dL CALCIUM 9.3 8.4 - 10.2 mg/dL Protein 7.7 6.0 - 8.3 g/dL ALT 9 (L) 10 - 35 U/L CBC Result Value Ref Range WBC 4.63 4.00 - 10.80 K/uL RBC 4.41 3.85 - 5.15 M/uL HGB 13.9 12.0 - 15.3 g/dL HCT 45.4 (H) 36.0 - 45.2 % MCV 102.9 81.5 - 97.5 fL MCH 31.5 27.0 - 34.0 pg MCHC 30.6 32.0 - 36.0 g/dL RDW 16.3 11.5 - 15.5 % PLT 125 (L) 140 - 400 K/uL MPV 9.7 6.6 - 11.1 fL DIFFERENTIAL, AUTOMATED Result Value Ref Range WBC 4.63 4.00 - 10.80 K/uL Neutrophils % 58.6 40.0 - 75.0 % Lymphocytes % 22.9 18.0 - 42.0 % Monocytes % 15.3 (H) 1.0 - 11.0 % Eosinophils % 0.0 0.0 - 6.0 % Basophils % 3.2 (H) 0.0 - 2.0 % Absolute Neutrophils 2.71 1.80 - 7.70 K/uL Absolute Lymphocytes 1.06 1.00 - 4.80 K/ul Absolute Monocytes 0.71 0.00 - 1.10 K/uL Absolute Eosinophils 0.00 0.00 - 0.70 K/uL Absolute Basophils 0.15 0.00 - 0.20 K/uL BILIRUBIN, DIRECT Result Value Ref Range Bilirubin, Direct 0.5 (H) 0.0 - 0.3 mg/dL *Note: Due [...] 2 pills in afternoon if needed oxygen IN GAS 2L/min(Oxygen) continuous via nasal cannula. 1 Each 0 Clobetasol Propionate 0.05 % External Solution Apply topically to affected area 2 times a day. On scalp , use till better then as needed 25 mL 1 Gabapentin 100 MG Oral Capsule (Neurontin) Take 1 tab daily, 2nd as needed per pt 04/17 Cetirizine HCl 10 MG Oral Tablet (ZyrTEC Allergy) Take 1 Tablet by mouth in the morning. Levothyroxine Sodium 100 MCG Oral Tablet (Levoxyl) Take 1 Tablet by mouth in the morning. (at least30 min prior to breakfast or other meds)--02/03/2024, lab 10 wks. 90 Tablet 0 Digoxin 125 MCG Oral Tablet (Lanoxin) Take 1 Tablet by mouth once a day on Thursday, Thursday, and Thursday only. Take one 3 days per week Furosemide 40 MG Oral Tablet (Lasix) Take 1 Tablet by mouth. 40 mg tue,nigel,Sa. Take an extra day ifmore leg swelling Albuterol Sulfate HFA 108 (90 Base) MCG/ACT [...] 04/05/2024--dec to 4d/wk 07/06/2024 1 Tablet 0 Mesalamine 1.2 GM Oral Tablet Delayed Release (Lialda) Take 2 Tablets by mouth in the morning. 90 Tablet 3 No current facility-administered medications for this visit. Review of patient's allergies indicates: Allergen Reactions Pantoprazole Itchiness, rash Penicillins Hives hives Discussed about covid booster, RSV vaccine.at Immunization History Administered Date(s) Administered COVID-19 mRNA, LNP-s, No Preserve, 2-Dose Series (Moderna) 07/25/2020, 08/30/2020 COVID-19, MRNA-LNP, PF, 30 MCG/0.3 mL, 12 YRS AND ABOVE, IM ([facility]) 09/29/2023 COVID-19, mRNA, LNP-s, PF, Booster, 100mcg/0.5mg [...] Recombinant (Shingrix) 09/14/2014, 09/29/2023, 02/02/2024 OBJECTIVE: BP 98/60 | Pulse 88 | Temp 98.1 °F (36.7 °C) (Tympanic) | Ht 5' 7" (1.702 m) | Wt 147 lb 3.2 oz (66.8 kg) | SpO2 99% | BMI 23.05 kg/m² | BSA 1.78 m² PHYSICAL EXAM: General: alert, healthy, no distress, well developed Neck: supple, no adenopathy, thyroid Not enlarged without nodularity Heart: regular rhythm and rate,4/6 ESM base and apex 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 Lungs: lungs clear to auscultation, ex sl dec BS left base Extremities: skin tight edema gunner legs ext to thighs Abdomen: Soft, distension,+ascites, bloating, epigastric hernia [place] size,reducible, non-tender, normal bowel sounds, no masses or organomegaly Scalp-areas thick hyperkeratotic lesions resolved Neuro-no focal deficits, needs assistance to get onto the exam table Skin-left cheek--triangle shaped ulcer skin from picking per daughter ASSESSMENT/PLAN: Chronic diastolic heart failure due to valvular disease (HCC) (Primary) - Furosemide 40 MG Oral Tablet (Lasix); 40 mg tue,nigel,Sat, 20 mg other days from 07/22/2024, lab 10 days - COMPREHENSIVE METABOLIC PANEL; Future; Expected date: 08/03/2024 Pulmonary hypertension (HCC) - Furosemide 40 MG Oral Tablet (Lasix); 40 mg tue,nigel,Sat, 20 mg other days from 07/22/2024, lab 10 days Stenosis of prosthetic aortic valve, sequela - Furosemide 40 MG Oral Tablet (Lasix); 40 mg tue,nigel,Sat, 20 mg other days from 07/22/2024, lab 10 days Typical atrial flutter (HCC) - Furosemide 40 MG Oral Tablet (Lasix); 40 mg tue,nigel,Sat, 20 mg other days from 07/22/2024, lab 10days Bilateral leg edema - Furosemide 40 MG Oral Tablet (Lasix); 40 mg tue,nigel,Sat, 20 mg other days from 07/22/2024, lab 10 days History of transcatheter aortic valve replacement (TAVR) - Furosemide 40 MG Oral Tablet (Lasix); 40 mg tue,nigel,Sat, 20 mg other days from 07/22/2024, lab 10 days Acquired hypothyroidism Thrombocytopenia (HCC) Elevated bilirubin 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) B12 deficiency COPD, group B, by GOLD 2017 classification (HCC) Chronic rhinitis Osteopenia of necks of both femurs Idiopathic peripheral neuropathy - Gabapentin 100 MG Oral Capsule (Neurontin); Take 1 cap daily Spinal stenosis of lumbar region without neurogenic claudication - Gabapentin 100 MG Oral Capsule (Neurontin); Take 1 cap daily History of chondrosarcoma Paroxysmal atrial fibrillation (HCC) - Furosemide 40 MG Oral Tablet (Lasix); 40 mg tue,nigel,Sat, 20 mg other days from 07/22/2024, lab 10 days Other ascites - Furosemide 40 MG Oral Tablet (Lasix); 40 mg tue,nigel,Sat, 20 mg other days from 07/22/2024, lab 10 days - COMPREHENSIVE METABOLIC PANEL; Future; Expected date: 08/03/2024 Acute on chronic right-sided heart failure (HCC) - Furosemide 40 MG Oral Tablet (Lasix); 40 mg tue,nigel,Sat, 20 mg other days from 07/22/2024, lab 10 days - COMPREHENSIVE METABOLIC PANEL; Future; Expected date: 08/03/2024 Skin ulcer of cheek, limited to breakdown of skin (HCC) Epigastric hernia Chronic hypoxic respiratory failure, on home oxygen therapy (HCC) Chronic right-sided heart failure (HCC) History of resection of meningioma Alcohol ingestion of more than 4 drinks/week Fluid restriction to 5 cups(8oz)/d Low salt diet. Check daily weight Call for weight gain >3lb/24hr or 5lb/3d Inc lasix as above Labs today and 08/03 Nurse to fu on HH referral Not f/b CM now--no plans to go to [place], cc CM to f/u Decrease vitamin B12 Continue decrease alcohol intake in the diet. Continue home oxygen Avoid putting steroid cream on the skin ulcer, use Aquaphor daily till better Hernia reducible, if any worsening despite diuresis and decrease in ascites consider referral to General Surgery Liver congestion sec to RHF/alc use Keep GI appointment 08/17/2024, Hematology 10/20/2024,card 11/29/24 BMP with improved potassium to 4.4 40 min total time spent with patient, time spent reviewing subspecialty notes, diagnostic studies done, follow-up orders/medication refills,over 1/2 time spent in counseling, coordinating care. Follow Up: Return in about 1 month (around 08/19/2024), or if symptoms worsen or fail to improve, for Return with Physician, Labs Today. | For: Return with Physician, Labs Today | Check-out note: Lab 08/03/24 (This note was completed using the dictation [...] instructions and agrees with plan of care. Phan Ahn MD 07/22/2024 documented in this encounter Nursing Notes * Edie Pimentel LPN - 07/22/2024 1:22 PM EST The patient has been properly identified by confirmation of name and date of . Chief Complaint Patient presents with Follow Up Leg swelling, abdominal swelling Patient here for swelling-bilateral legs worsening, symptoms for two weeks, abdominal swelling maybe a little longer than two weeks. Moving bowels okay but not urinating very much. Took extra 1/2 dose of lasix on Thursday this week. documented in this encounter Miscellaneous Notes * Addendum Note - Phan Ahn MD - 08/11/2024 12:51 PM EDTAddended by: PHAN AHN on: 08/11/2024 12:51 PM Modules accepted: Orders documented in this encounter Plan of Treatment Upcoming Encounters Date Type Department Care Team (Late st Contact Info) Description 08/17/2024 9:40 AM EDT Office Visit Gastroenterology, [facility] [address] [place] [address] Eduar Beckham MD [address] [place] [address] 08/22/2024 12:40 PM EDT Office Visit General Internal Medicine [facility] [address] [place], [place] [address] Phan Ahn MD [address] [place], [place] [address] 10/07/2024 2:20 PM EDT Office Visit General Internal Medicine [facility] [address] [place], [place] [address] Phan Ahn MD [address] [place] [address] 10/20/2024 2:00 PM EDT Office Visit Hematology/Oncology [facility] [address] [place], [place] [id number] Patricia Shin CRNP [address] [facility] [place] [address] 10/25/2024 2:30 PM EDT Office Visit Rheumatology [facility] [address] [place] [id number] Jose Manuel Thurston, RAJAN [address] [facility] [place] [address] 11/21/2024 1:00 PM EDT Imaging Radiology [facility] [address] [place] [phone] 11/29/2024 8:30 AM EDT Office Visit Cardiology, [facility] [address] [place] [address] Ritu Vasquez, PAHarpreet [address] [place] [address] Scheduled Orders Name Type Priority Associated Diagnoses Orde r Schedule BASIC METABOLIC PANEL Lab STAT Chronic diastolic heart failure due to valvular disease (HCC) Bilateral leg edema Other ascites Expected: 08/22/2024 (Approximate), Expires: 08/11/2025 Scheduled Procedures Name Priority Associated Diagnoses Date/Ti [...] this encounter Medical Devices Implanted Type Area Special Population Paraprofessional Device Identifier Shelf Expiration Date Model / Serial / Lot Valve Ce Aortic 21mm [id number] - [id number] Implanted:Qty : 1 on 04[place]17/2010 [place] [facility] - Non Human N/A: Chest [facility] [employer] ELISABETH 04/17/2010 [id number] / Patch Pericard 8x14cm [id number] - [id number] Implanted:Qty : 1 on 04/17/2010 [place] [facility] - Non Human N/A: Chest [employer] 12/05/2014 [id number] / / [id number] [employer] 6 M654g - [id number] Implanted:Qty : 4 on 04/17/2010 [place] [facility] N/A: Chest DO NOT USE 06/17/2014 [id number] / / [id number] documented as of this encounter Results * (ABNORMAL) COMPREHENSIVE METABOLIC PANEL (08/03/2024 10:17 AM EDT) Pathologist [facility] BUN 32(H) 6 - 20 mg/dL 08/03/2024 10:45 AM [facility] 56 CREATININE 0.9 0.5 - 1.0 mg/dL 08/03/2024 10:45 AM [facility] 56 EGFR 61 >=60 mL/min 08/03/2024 10:45 AM [facility] 56 Comment:eGFR is calculated b ased on the CKD-EPI 2020 equation. SODIUM 138 135 - 146 mmol/L 08/03/2024 10:45 AM [facility] 56 POTASSIUM 4.9 3.5 - 5.1 mmol/L 08/03/2024 10:45 AM [facility] 56 CHLORIDE 99 98 - 107 mmol/L 08/03/2024 10:45 AM [facility] [facility] CO2 31 22 - 32 mmol/L 08/03/2024 10:45 AM [facility] 56 ANION GAP 8 7 - 15 mmol/L 08/03/2024 10:45 AM [facility] 56 GLUCOSE 84 70 - 120 mg/dL 08/03/2024 10:45 AM [facility] 56 Albumin 3.8 3.8 - 5.0 g/dL 08/03/2024 10:45 AM [facility] 56 AST 38(H) 10 - 35 U/L 08/03/2024 10:45 AM [facility] 56 Alkaline Phosphatase 85 35 - 130 U/L 08/03/2024 10:45 AM [facility] 56 Bilirubin, Total 2.4(H) <=1.2 mg/dL 08/03/2024 10:45 AM [facility] 56 CALCIUM 9.5 8.4 - 10.2 mg/dL 08/03/2024 10:45 AM [facility] 56- Protein 7.1 6.0 - 8.3 g/dL 08/03/2024 10:45 AM [facility] 56 ALT 6(L) 10 - 35 U/L 08/03/2024 10:45 AM [facility] 56 Blood Venous blood specimen / Unknown Venipuncture / Unknown 08/03/2024 10:17 AM EDT 08/03/2024 10:17 AM EDT us Phan Ahn MD LAB BLOOD ORDERABLES Final Resul t [facility] 56-[address] [place] [address] documented in this encounter Visit Diagnoses Diagnosis Chronic diastolic heart failure due to valvular disease (HCC)- Primary Pulmonary hypertension (HCC) Other chronic pulmonary heart diseases Stenosis of prosthetic aortic valve, sequela Typical atrial flutter (HCC) Atrial flutter Bilateral leg edema Edema History of transcatheter aortic valve replacement (TAVR) Acquired hypothyroidism Unspecified hypothyroidism Thrombocytopenia (HCC) Thrombocytopenia, unspecified Elevated bilirubin Jaundice, unspecified, not of 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) B12 deficiency Other B-complex deficiencies COPD, group B, by GOLD 2017 classification (HCC) Chronic rhinitis Osteopenia of necks of both femurs Idiopathic peripheral neuropathy Unspecified hereditary and idiopathic peripheral neuropathy Spinal stenosis of lumbar region without neurogenic claudication Spinal stenosis, lumbar region, without neurogenic claudication 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 Paroxysmal atrial fibrillation (HCC) Atrial fibrillation Other ascites Acute on chronic right-sided heart failure (HCC) Skin ulcer of cheek, limited to breakdown of skin (HCC) Epigastric hernia Other ventral hernia without mention of obstruction or gangrene Chronic hypoxic respiratory failure, on home oxygen therapy (HCC) Chronic right-sided heart failure (HCC) Congestive heart failure, unspecified History of resection of meningioma Other postprocedural status Alcohol ingestion of more than 4 drinks/week Other problems related to lifestyle documented in this encounter Advance Directives Documents on File Type Date Recorded 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 Care Teams News Video Editor Relationship Specialty Start Date End Date Phan Ahn MD [address] [facility] [address] [place] [address] PCP - General Internal Medicine 02/02/24 documented as of this encounter
--- OUTSIDE RECORDS SUMMARY | 2024-08-27 10:57 | External Medical Summary | Summary of Care ---
Author Name Unknown Organization [facility] Address [address] [place] [address] Phone [phone] Care Team Providers Care Flyer Repairer Name Role Phone Lyeda Ahn MD Primary Care Provider [phone] Reason for Visit * Reason Onset Date Comments Pre Cert/Prior Auth 08/01/2024 Encounter Details Date Type Department Care Team (Late st Contact Info) Description 08/01/2024 Telephone Gastroenterology, [facility] [address] [place] [address] Taylor Whaley CRNP [address] [place] [address] Pre Cert/Prior Auth Allergies Active Allergy Reactions Criticality Noted Date Comments Pantoprazole 01/29/2022 Itchiness, rash Penicillins Hives 01/13/2003 hives documented as of this encounter (statuses as of 08/01/2024) Medications Acetaminophen ER 650 MG Oral Tablet [...] 07/22/2024, lab 10 days 45 Tablet 1 Active documented as of this encounter (statuses as of 08/01/2024) Active Problems Problem Noted Date Diagnosed Date [...] as of this encounter (statuses as of 08/01/2024) Resolved Problems Problem Noted Date Diagnosed Date Resolved Date Permanent atrial fibrillation 03/28/2019 10/28/2021 Chronic systolic CHF (conges tive heart failure) 03/28/2019 01/03/2021 CHF with right heart failure 03/21/2019 03/12/2022 Atherosclerosis of aorta 11/16/2018 Carpal tunnel syndrome 03/28/201302/10 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 well after 03/29 surgical repair LOC PRIM [id number] 05/09/2003 10/0 10/2016 Esotropia 01/13/2003 02/10/2017 Overview (01/13/2003): 7/03- R sixth nerve palsy- improving MRI/MRA negative Alopecia 01/13/2003 02/10/2017 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/2002 09/20/2018 Overview (06/16/2002): not bx proven DIVERTICULOSIS OF COLON 06/16/200202/22 Menopause 06/16/2002 10/23/2021 Abnormal weight gain 06/16/2002 017 documented as of this encounter (statuses as of 08/01/2024) Immunizations Name Administration Dates Next Due COVID-19 mRNA, LNP-s, No Pre serve, 2-Dose Series (Moderna) 08/30/2020,07/25/2020 COVID-19, MRNA-LNP, PF, 30 M CG/0.3 mL, 12 YRS AND ABOVE, IM ([employer]-Comirnaty) 09/29/2023 COVID-19, mRNA, LNP-s, PF, B ooster, [...] Date 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 Medication/Disease State Information: Medication: Mesalamine 1.2 GM Oral Tablet Delayed Release (Lialda), 2 Tablets by mouth in the morning Diagnosis (including ICD-10): Crohn's disease of large intestine without complication (HCC) [K50.10] Site of care: Self-administered - route pre-cert request to [facility] Office Information: Prescriber: RAJAN Martinez documented in this encounter Plan of Treatment Upcoming Encounters Date Type Department Care Team (Late st Contact Info) Description 08/17/2024 9:40 AM EDT Office Visit Gastroenterology, [facility] [address] [place] [address] Eduar Beckham MD [address] [place] [address] 08/22/2024 12:40 PM EDT Office Visit General Internal Medicine [address] [place] [address] Leyda Ahn MD [address] [place] [address] [place] [address] 10/07/2024 2:20 PM EDT Office Visit General Internal Medicine [address] [place] [address] Leyda Ahn MD [address] [place] [address] [place] [address] 10/20/2024 2:00 PM EDT Office Visit Hematology/Oncology [facility] [address] [facility] [place] [phone] Patricia Shin CRNP [address] [facility] [place] [address] 10/25/2024 2:30 PM EDT Office Visit Rheumatology [facility] [address] [place] [phone] Jose Manuel Thurston CRNP [address] [place] [address] [place] [address] 11/21/2024 1:00 PM EDT Imaging Radiology [facility] [address] [place] [address] 11/29/2024 8:30 AM EDT Office Visit Cardiology, [facility] [address] [place] [address] Ritu Vasquez PA-C [address] [place] [address] Scheduled Procedures Name Priority Associated Diagnoses Date/Ti [...] this encounter Medical Devices Implanted Type Area Cemetery Warden Device Identifier Shelf Expiration Date Model / Serial / Lot Valve Ce Aortic 21mm 3000tfx - [id number] Implanted:Qty : 1 on 04/17/2010 at OR [facility] Tissue - Non Human N/A: Chest [employer] ELISABETH 04/17/2010 3000TFX-2 / [id number] / Patch Pericard 8x14cm [id number] - [id number] Implanted:Qty : 1 on 04/17/2010 at OR [facility] Tissue - Non Human N/A: Chest [employer] 12/05/2014 -[id number] / / [id number] Sut Steel 6 M654g - [id number] Implanted:Qty : 4 on 04/17/2010 at OR [facility] N/A: Chest DO NOT USE 06/17/2014 [id number] / / [id number] documented as of this encounter Advance Directives Documents on File Type Date Recorded Patient Checker And Packer Expl 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 Care Teams Flyer Repairer Relationship Specialty Start Date End Date Leyda Ahn MD [address] [facility] [place] [address] PCP - General Internal Medicine 02/02/24 documented as of this encounter
--- OUTSIDE RECORDS SUMMARY | 2024-08-27 10:57 | External Medical Summary | Summary of Care ---
Author Name Unknown Organization [facility] Address [address] [place] [address] Phone [phone] Care Team Providers Care Nuclear Fuels Research Engineer Name Role Phone Leyda Ahn MD Primary Care Provider Reason for Visit * Reason Onset Date Comments Precert In Process 08/01/2024 11 Dianne Blumalamgavi Encounter Details Date Type Department Care Team (Late st Contact Info) Description 08/01/2024 Telephone [facility]astroenterology, [facility] [address] [facility] [place] [address] Taylor Whaley CRNP [address] [facility] [place] [address] Precert In Process (11 Dianne Salazar... 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 Not on file Not on file [...] care: Self-administered - route pre-cert request to [id number] Office Information: Prescriber: RAJAN Martinez documented in this encounter Plan of Treatment Upcoming Encounters Date Type Department Care Team (Late st Contact Info) Description 08/17/2024 9:40 AM EDT Office Visit Gastroenterology, [facility] [address] [place] [address] Eduar Beckham MD [address] [place] [address] 08/22/2024 12:40 PM EDT Office Visit General Internal Medicine [facility] [address] [facility] [place] [address] Leyda Ahn MD [address] [facility] [place] [address] 10/07/2024 2:20 PM EDT Office Visit General Internal Medicine [facility] [address] [facility] [place] [address] Leyda Ahn MD [address] [place] [address] [place] [address] 10/20/2024 2:00 PM EDT Office Visit Hematology/Oncology [facility] [address] [facility] [place] [phone] Patricia Shin CRNP [address] [facility] [place] [address] 10/25/2024 2:30 PM EDT Office Visit Rheumatology [facility] [address] [place] [phone] Jose Manuel Thurston, RAJAN [address] [place] [address] 11/21/2024 1:00 PM EDT Imaging Radiology [facility] [address] [place] [phone] 11/29/2024 8:30 AM EDT Office Visit Cardiology, [facility] [address] [place] [address] Ritu Vasquez, MANOLO [address] [place] [address] Scheduled Procedures Name Priority Associated Diagnoses Date/Ti [...] this encounter Medical Devices Implanted Type Area Food Stylist Device Identifier Shelf Expiration Date Model / Serial / Lot Valve Ce Aortic 21mm 3000tfx - [id number] Implanted:Qty : 1 on 04/17/2010 [place] [facility] Tissue - Non Human N/A: Chest [employer] 04/17/2010 3000TFX-2 [id number] / Patch Pericard 8x14cm [id number] - [id number] Implanted:Qty : 1 on 04/17/2010 at [place] [facility] Tissue - Non Human N/A: Chest [employer] 12/05/2014 PC-[id number] / / [id number] Sut Steel 6 M654g - [id number] Implanted:Qty : 4 on 04/17/2010 at [place] [facility] N/A: Chest DO NOT USE 06/17/2014 M654G / / [id number] documented as of this encounter Advance Directives Documents on File Type Date Recorded Patient Head Transfer Clerk Expl 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 Care Teams Nuclear Fuels Research Engineer Relationship Specialty Start Date End Date Leyda Ahn MD [address] [place] [address] PCP - General Internal Medicine 02/02/24 documented as of this encounter
--- OUTSIDE RECORDS SUMMARY | 2024-08-27 10:58 | External Medical Summary | Summary of Care ---
Author Name Unknown Organization [facility] Address [address] [place] [address] Phone [phone] Care Team Providers Care Community Resource Consultant Name Role Phone Leyda Ahn MD Primary Care Provider [phone] Reason for Referral * Evaluate & Treat - Unlimited Visits (Within 3 days (urgent)) - Authorized Specialty Diagnoses / Procedures Referred By Vinita ramirez Referred To Contact HOME CARE / Home Care Diagnoses Generalized weakness Gait disturbance Wound of left cheek, initial encounter Chronic diastolic heart failure due to valvular disease (HCC) Idiopathic peripheral neuropathy Spinal stenosis of lumbar region without neurogenic claudication Amalia Ricci PA-C [address] [place] [address] Phone: tel: fax: Referral ID Status Reason Start Date Expiration Date Visits Requested Visits Authorized [id number] Authorized Specialty Services Required 07/01/[phone] Question Answer Referral Priority Within 3 days (urgent) Where should this appointment be scheduled? Chad Comments Documentation of Jtfy-pz-Zdtm Encounter Addendum Patient Name: Nereida Stephen I certify that this patient is under my care and that I, or a nurse practitioner or physician's conservation assistant working with me, had a [id number] encounter that meets the physician udrw-kh-cbyg encounter requirements with this patient on: 07/01/24 The encounter with the patient was in whole, or in part, for the following medical condition, which is the primary reason for home health care (List medical condition): Gait dysfunction I certify that, based on my findings, the following services are medically necessary home health services: Nursing and Physical Therapy To provide the following care/treatments: (All hospitalists not following the patient after discharge should complete this section): Physical Therapy Primary Care Physician to follow home care plan of care after discharge: Yes My clinical findings support the need for the above services because: patient's strength and mobility declining. Fall risk high. No longer able to leave home independently. Further, I certify that my clinical findings support that this patient is homebound (i.e. Absences from home require considerable and taxing effort and are for medical reasons or religion services or infrequently or of short duration when for other reason) because: Pt no longer drives and requires assistance with caregiver and cane to ambulate Physician Signature: Date of Signature: Physician Printed Name: Amalia Ricci PA-C Reason for Visit * Reason Comments Follow Up Encounter Details Date Type Department Care Team (Latest Contact Info) Description 07/01/2024 1:00 PM EST Office Visit General Internal Medicine [facility] [address] [place] [address] Amalia Ricci PA-C [address] [facility] [place] [address] Generalized weakness*; Gait disturbance; Wound of left cheek, initial encounter; Chronic diastolic heart failure due to valvular disease (HCC); History of transcatheter aortic valve replacement (TAVR); Idiopathic peripheral neuropathy; Spinal stenosis of lumbar region without neurogenic claudication; Eczematous skin lesions; Dry skin; Crohn's disease of large intestine without complication (HCC) Allergies Active Allergy Reactions Criticality Noted Date Comments Pantoprazole 01/29/2022 Itchiness, rash Penicillins Hives 01/13/2003 hives documented as of this encounter (statuses as of 07/01/2024) Medications Acetaminophen ER 650 MG Oral Tablet Extended Release 2 pill daily in AM & 2 pills in afternoon if needed 03/20/20 15 Active oxygen IN GAS 2L/min(Oxygen) continuous via nasal cannula. 1 Each 10/10/19 23 Active Mesalamine 1.2 GM Oral Tablet Delayed Release (Lialda) TAKE 2 TABLETS BY MOUTH EVERY MORNING 180 Tablet 3 10/29/19 24 Active Clobetasol Propionate 0.05 % External SolutionIndication s:Pruritic dermatosis of scalp,Scalp itch Apply topically to affected area 2 times a day. On scalp , use till better then as needed 25 mL 1 02/02/20 24 Active Zoster Vac Recomb Adjuvanted 50 MCG/0.5ML Intramuscular Suspension Reconstituted (Shingrix)Indicati ons:Need for shingles vaccine Inject 0.5 mL into a large muscle now and repeat dose in 60 to 180 days 1 Each 1 02/02/20 24 Active Gabapentin 100 MG Oral Capsule (Neurontin)Indicat ions:Idiopathic peripheral neuropathy,Spinal stenosis of lumbar region without neurogenic claudication Take 1 tab daily, 2nd as needed per pt 04/1704/05/20 24 Active Cetirizine HCl 10 MG Oral Tablet (ZyrTEC Allergy)Indication s:Chronic rhinitis Take 1 Tablet by mouth in the morning. 04/05/20 24 Active B-12 1000 MCG Oral [...] once a day on Thursday, Thursday, and Kedar only. Take one 3 days per week 05/16/20 24 Active Furosemide 40 MG Oral Tablet (Lasix)Indications :Stenosis of prosthetic aortic valve, sequela,Pulmonary hypertension (HCC),Paroxysmal atrial fibrillation (HCC),Paroxysmal atrial flutter (HCC),History of transcatheter aortic valve replacement (TAVR),Bilateral leg edema,Chronic diastolic heart failure due to valvular disease (HCC) Take 1 Tablet by mouth. 40 mg tue,nigel,Sa. Take an extra day if more leg swelling 05/16/20 24 Active Albuterol Sulfate HFA 108 [...] needed 30 g 1 07/01/19 25 Active Hydrocortisone 2.5 % External CreamIndications:E czematous skin lesions,Dry skin Apply topically to affected area 2 times a day. To affected area. 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 Henriquez [facility] [...] well after 03/29 surgical repair LOC PRIM [id number] 05/09/2003 1010/2016 Esotropia 01/13/2003 02/10/2017 Overview (01/13/2003): 11/24- R sixth nerve palsy- improving MRI/MRA negative Alopecia 01/13/2003 02/10/2017 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/2002 09/20/2018 Overview (06/16/2002): not bx proven DIVERTICULOSIS OF COLON 06/16/200202/22 Menopause 06/16/2002 10/23/2021 Abnormal weight gain 06/16/2002 017 documented as of this encounter (statuses as of 07/01/2024) Immunizations Name Administration Dates Next Due COVID-19 [...] Date 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 History of Present Illness Nereida Stephen is a 84 year old female that presents for Follow Up Pt here today for a 3 month f/up of chronic medical conditions. No recent labs. Pt accompanied by biomedical photographer. Nuclear Equipment Sales Engineer reports family is requesting PT through [facility] for the pt as she is becoming weaker and they are concerned of the pt falling. Pt denies any recent falls. Also c/o area on the pt's L cheek that she keeps picking and scratching at. The area keeps tearing back open and bleeding. Pt reports it is itchy. Pt denies any new chest pain or SOB. Moving bowels fine. Has upcoming appt with GI next month. Review of Systems: See HPI for pertinent positives. All other review of systems is negative. Physical Exam Vitals: 07/01/24 1316 Temp: 97.6 °F (36.4 °C) Pulse: 76 BP: 98/62 Physical Exam Constitutional: General: She is not in acute distress. HENT: Head: Right Ear: Tympanic membrane, ear canal and external ear normal. Left Ear: Tympanic membrane, ear canal and external ear normal. Mouth/Throat: Mouth: Mucous membranes are moist. Pharynx: Oropharynx is clear. Cardiovascular: Rate and Rhythm: Normal rate. Heart sounds: Murmur heard. Pulmonary: Effort: Pulmonary effort is normal. Breath sounds: Normal breath sounds. Musculoskeletal: Cervical back: Normal range of motion and neck supple. Right lower le+ Pitting Edema present. Left lower le+ Pitting Edema present. Comments: Ambulating slowly with cane. Skin: General: Skin is warm and dry. Neurological: General: No focal deficit present. Mental Status: She is alert. Mental status is at baseline. I have reviewed the following results: Assessment and Plan Generalized weakness Referral to [facility] for PT placed to help with strength, endurance, and mobility to reduce pt's fall risk and maintain as much independence as possible. - HOME HEALTH REFERRAL OP Gait disturbance See above. - HOME HEALTH REFERRAL OP Wound of left cheek, initial encounter Discussion with pt on the importance of avoiding picking or scratching at the area due to infectionrisk. Can use hydrocortisone cream on the area to help with any itchiness. Home nursing can also monitor this area as well. - HOME HEALTH REFERRAL OP Chronic diastolic heart failure due to valvular disease (HCC) Edema stable. - HOME HEALTH REFERRAL OP History of transcatheter aortic valve replacement (TAVR) Idiopathic peripheral neuropathy - HOME HEALTH REFERRAL OP Spinal stenosis of lumbar region without neurogenic claudication - HOME HEALTH REFERRAL OP Eczematous skin lesions - Hydrocortisone 2.5 % External Cream; Apply topically to affected area 2 times a day. To affected area. On Rt upper back for 1 week or till better then as needed Dry skin - Hydrocortisone 2.5 % External Cream; Apply topically to affected area 2 times a day. To affected area. On Rt upper back for 1 week or till better then as needed Wrap-Up Pt to have labs done today while here. Follow Up: Return in about 3 months (around 09/28/2024) for Return with Physician, Labs Today. | For:Return with Physician, Labs Today | Check-out note: Please do labs ordered on 04/05/24 today. Routine f/up with Dr. Ahn in 3 months. Time: I spent a total of 40-54 minutes (exact time 40 mins) on the date of service in preparation, delivery, and documentation of the care provided to Nereida Stephen excluding any time spent in the performance of separately billed services. documented in this encounter Nursing Notes * Colleen Jaquez CCMA - 07/01/2024 1:12 PM EST Pt is here today for follow up pt's daughter wants PT for at home pt's care takers is here today with pt pt has a sore by left ear and pt keeps picking at it pt is not really sure why she is here today documented in this encounter Plan of Treatment Upcoming Encounters Date Type Department Care Team (Late st Contact Info) Description 08/17/2024 9:40 AM EDT Office Visit Gastroenterology, [facility] [address] [place] [address] Eduar Beckham MD [address] [place] [address] 10/07/2024 2:20 PM EDT Office Visit General Internal Medicine [facility] [address] [facility] [place] [address] Leyda Ahn MD [address] [facility] [place] [address] 10/25/2024 2:30 PM EDT Office Visit Rheumatology [facility] [address] [place] [phone] Jose Manuel Thurston CRNP [address] [place] [address] [place] [address] 11/21/2024 1:00 PM EDT Imaging Radiology [facility] [address] [place] [phone] 11/29/2024 8:30 AM EDT Office Visit Cardiology, [facility] [address] [place] [address] Ritu Vasquez PA-C [address] [place] [address] Scheduled Procedures Name Priority Associated Diagnoses Date/Ti me COLONOSCOPY FLEXIBLE PROXIMA L DIAGNOSTIC Recall IBD (inflammatory bowel disease) Scheduled Referrals Name Type Priority Associated Diagnoses Orde r Schedule HOME HEALTH REFERRAL OP Referral Within 3 days (urgent) Generalized weakness Gait disturbance Wound of left cheek, initial encounter Chronic diastolic heart failure due to valvular disease (HCC) Idiopathic peripheral neuropathy Spinal stenosis of lumbar region without neurogenic claudication Ordered: 07/01/2024 Health Maintenance Due Date Last Done Comments DXA Scan 08/10/2023 08/09/2020, 07/23, 11/07/2009, Additional history exists Colonoscopy 12/26/2023 12/25/2021, 07/2021, 09/24/2018, Additional history exists COVID-19 Vaccine ( season) 2024 09/29/2023, 03/18/2022, 05/13/2021, Additional history exists Adult Wellness Visit 05/07/2024 05/07/2023 TSH 04/04/2025 04/04/2024, 12/24, 05/15/2023, Additional history exists O2 ASSESSMENT COMPLETED IN PAST YEAR FOR COPD 05/16/2025 05/16/2024 DIG LEVEL FOR MEDICATION MONITORING YEARLY 05/30/2025 05/30/2024, 04/04/2024, 02/16/2023, Additional history exists Depression Screening 07/01/2025 07/01/2024 DTap/Tdap Vaccines (3 - Td or Tdap) [...] this encounter Medical Devices Implanted Type Area Nuclear Equipment Sales Engineer Device Identifier Shelf Expiration Date Model / Serial / Lot Valve Ce Aortic 21mm 3000tfx - [id number] Implanted:Qty : 1 on [place]17/[place] [facility] [place] - Non Human N/A: Chest [employer] ELISABETH 04/17/2010 3000TFX-2 / [id number] / Patch Pericard 8x14cm [id number] - [id number] Implanted:Qty : 1 on 04/17/2010 [place] [facility] [place] Tissue - Non Human N/A: Chest [employer] 12/05/2014 -[id number] / / [id number] Sut Steel 6 M654g - [id number] Implanted:Qty : 4 on 04/17/2010 [place] [facility] [place] N/A: Chest DO NOT USE 06/17/2014 [id number] / / [id number] documented as of this encounter Visit Diagnoses Diagnosis Generalized weakness- Primary Other malaise and fatigue Gait disturbance Abnormality of gait Wound of left cheek, initial encounter Chronic diastolic heart failure due to valvular disease (HCC) History of transcatheter aortic valve replacement (TAVR) Idiopathic peripheral neuropathy Unspecified hereditary and idiopathic peripheral neuropathy Spinal stenosis of lumbar region without neurogenic claudication Spinal stenosis, lumbar region, without neurogenic claudication Eczematous skin lesions Unspecified disorder of skin and subcutaneous tissue Dry skin Other specified disease of sebaceous glands Crohn's disease of large intestine without complication (HCC) Regional enteritis of large intestine documented in this encounter Advance Directives Documents on File Type Date Recorded Patient Electrotyper Apprentice Expl 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 Care Teams Community Resource Consultant Relationship Specialty Start Date End Date Leyda Ahn MD [address] [place] [address] PCP - General Internal Medicine 02/02/24 documented as of this encounter"
--- OUTSIDE RECORDS SUMMARY | 2024-08-27 10:58 | External Medical Summary | Summary of Care ---
Author Name Unknown Organization [facility] Address [address] [place] [address] Phone [phone] Care Team Providers Care Graduate Student Name Role Phone Leyda Ahn MD Primary Care Provider [phone] Reason for Visit * Reason Onset Date Comments Test Results Lab 04/11/2024 Encounter Details Date Type Department Care Team (Late st Contact Info) Description 04/11/2024 Telephone General Internal Medicine [facility] [address] [place] [address] Maxwell Sellers MD [address] [place] [address] Test Results Lab Allergies Active Allergy Reactions Criticality Noted Date Comments Pantoprazole 01/29/2022 Itchiness, rash Penicillins Hives 01/13/2003 hives documented as of this encounter (statuses as of 07/06/2024) Medications Acetaminophen ER 650 MG Oral Tablet Extended Release 2 pill daily in AM & 2 pills in afternoon if needed 5 Active oxygen IN GAS 2L/min(Oxygen) continuous via nasal cannula. 1 Each 3 Active Mesalamine 1.2 GM Oral Tablet Delayed Release (Lialda) TAKE 2 TABLETS BY MOUTH EVERY MORNING 180 Tablet 3 4 Active Clobetasol Propionate 0.05 % External SolutionIndicatio [...] 180 days 1 Each 1 4 Active Gabapentin 100 MG Oral Capsule (Neurontin)Indica tions:Idiopathic peripheral neuropathy,Spinal stenosis of lumbar region without neurogenic claudication Take 1 tab daily, 2nd as needed per pt 04/17 4 Active Cetirizine HCl 10 MG Oral Tablet (ZyrTEC Allergy)Indicatio ns:Chronic rhinitis Take 1 Tablet by mouth in the morning. 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/2002 09/20/2018 Overview (06/16/2002): not bx proven DIVERTICULOSIS OF COLON 06/16/200202/22 Menopause 06/16/2002 10/23/2021 Abnormal weight gain 06/16/2002 017 documented as of this encounter (statuses as of 07/06/2024) Immunizations Name Administration Dates Next Due COVID-19 [...] Date 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 When patient returns call, ok for ROSIBEL to relay message, please refer to below documentation. If needed, can transfer to dedicated nurse line. * Telephone Encounter - Heaven Mckoy CMA - 04/11/2024 3:35 PM EST Attempted to call, LVM to return call. Please transfer to DNL. * Telephone Encounter - Heaven Mckoy CMA - 04/11/2024 3:35 PM EST ----- Message from Maxwell Sellers MD sent at 04/11/2024 3:01 PM EST ----- 1. Anemia resolved 2. Platelets a little low but stable, monitor for bleeding/bruising, recheck 3 months 3. Lft slightly high but stable, recheck 3 months to follow Looks like she is following with Dr. Ahn (who is great!) now, will also forward to her documented in this encounter Plan of Treatment Upcoming Encounters Date Type Department Care Team (Late st Contact Info) Description 08/17/2024 9:40 AM EDT Office Visit Gastroenterology, [facility] [address] [place] [address] Eduar Beckham MD [address] [place] [address] 10/07/2024 2:20 PM EDT Office Visit General Internal Medicine [facility] [address] [place] [address] Leyda Ahn MD [address] [place] [address] 10/25/2024 2:30 PM EDT Office Visit Rheumatology [facility] [address] [place] [phone] Jose Manuel Thurston CRNP [address] [facility] [place] [address] 11/21/2024 1:00 PM EDT Imaging Radiology [facility] [address] [place] [phone] 11/29/2024 8:30 AM EDT Office Visit Cardiology, [facility] [address] [place] [address] Ritu Vasquez PA-C [address] [place] [address] Scheduled Procedures Name Priority Associated Diagnoses Date/Ti me COLONOSCOPY FLEXIBLE PROXIMA L DIAGNOSTIC Recall IBD (inflammatory bowel disease) Health Maintenance Due Date Last Done Comments DXA Scan 08/10/2023 08/09/2020, 07/23, 11/07/2009, Additional history exists Colonoscopy 12/26/2023 12/25/2021, 0807/2021, 09/24/2018, Additional history exists COVID-19 Vaccine ( season) 2024 09/29/2023, 03/18/2022, 05/13/2021, Additional history exists Adult Wellness Visit 05/07/2024 05/07/2023 O2 ASSESSMENT COMPLETED IN PAST YEAR FOR COPD 05/16/2025 05/16/2024 DIG LEVEL FOR MEDICATION MONITORING YEARLY 05/30/2025 05/30/2024, 04/04/2024, 02/16/2023, Additional history exists Depression Screening 07/01/2025 07/01/2024 TSH 07/01/2025 07/01/2024, 03/25, 01/21/2024, Additional history exists DTap/Tdap Vaccines (3 - [...] this encounter Medical Devices Implanted Type Area Bread Oven Operator Device Identifier Shelf Expiration Date Model / Serial / Lot Valve Ce Aortic 21mm 3000tfx - [id number] Implanted:Qty : 1 on 04/17/2010 at [place] [facility] [place] Tissue - Non Human N/A: Chest [employer] ELISABETH 04/17/2010 3000TFX-2 [id number] / Patch Pericard 8x14cm [id number] - [id number] Implanted:Qty : 1 on 04/17/2010 at [place] [facility] [place] Tissue - Non Human N/A: Chest [employer] 12/05/2014 [id number] / / [id number] Sut Steel 6 M654g - [id number] Implanted:Qty : 4 on 04/17/2010 at [place] [facility] [place] N/A: Chest DO NOT USE 06/17/2014 [id number] / / [id number] documented as of this encounter Advance Directives Documents on File Type Date Recorded Patient Quality Assurance Clerk Expl 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 Care Teams Graduate Student Relationship Specialty Start Date End Date Leyda Ahn MD [address] [facility] [place] [address] PCP - General Internal Medicine 02/02/24 documented as of this encounter
--- OUTSIDE RECORDS SUMMARY | 2024-08-27 10:58 | External Medical Summary | Summary of Care ---
Author Name Unknown Organization [facility] Address [address] [place] [address] Phone [phone] Care Team Providers Care Producer Name Role Phone Leyda Ahn MD Primary Care Provider [phone] Reason for Visit * Reason Onset Date Comments Test Results 07/04/2024 Encounter Details Date Type Department Care Team (Late st Contact Info) Description 07/04/2024 Telephone General Internal Medicine [facility] [address] [facility] [place] [address] Leyda Ahn MD [address] [place] [address] Test Results Allergies Active Allergy Reactions Criticality Noted Date Comments Pantoprazole 01/29/2022 Itchiness, rash Penicillins Hives 01/13/2003 hives documented as of this encounter (statuses as of 07/12/2024) Medications Acetaminophen ER 650 MG Oral Tablet [...] other meds)--02/03/2024, lab 10 wks. 90 Tablet 4 Active Digoxin 125 MCG Oral Tablet (Lanoxin)Indicatio ns:Paroxysmal atrial flutter (HCC) Take 1 Tablet by mouth once a day on Thursday, Thursday, and Thursday only. Take one 3 days per week 4 Active Furosemide 40 MG Oral Tablet (Lasix)Indications :Stenosis of prosthetic aortic valve, sequela,Pulmonary hypertension (HCC),Paroxysmal atrial fibrillation (HCC),Paroxysmal atrial flutter (HCC),History of transcatheter aortic valve replacement (TAVR),Bilateral leg edema,Chronic diastolic heart failure due to valvular disease (HCC) Take 1 Tablet by mouth. 40 mg tue,nigel,Sa. 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 [place] [facility] [place] asymptomatic en plaque cavernous sinus meningioma [...] well after 03/29 surgical repair LOC PRIM [id number] 05/09/2003 10/10/2016 Esotropia 01/13/2003 02/10/2017 Overview (01/13/2003): 11/24- R sixth nerve palsy- improving MRI/MRA negative Alopecia 01/13/2003 02/10/2017 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/2002 09/20/2018 Overview (06/16/2002): not bx proven DIVERTICULOSIS OF COLON 06/16/200202/22 Menopause 06/16/2002 10/23/2021 Abnormal weight gain 06/16/2002 017 documented as of this encounter (statuses as of 07/12/2024) Immunizations Name Administration Dates Next Due COVID-19 [...] 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 Informed of message. Verbalized understanding. Will have her repeat the test in 2 to 4 weeks. * Telephone Encounter - Tono Reese OSA - 07/05/2024 10:38 AM EST Reason for patient's call: returning call results Caller was transferred to Kaia at the nurse line. * Telephone Encounter - Kaia Delgado LPN - 07/04/2024 10:20 AM EST Called, left message for patient to return call. * Telephone Encounter - Kaia Delgado LPN - 07/04/2024 10:18 AM EST ----- Message from Maxwell Sellers MD sent at 07/03/2024 11:42 AM EST ----- Lft elevated but hemolyzed, would recheck 2-4 weeks to re-assess documented in this encounter Plan of Treatment Upcoming Encounters Date Type Department Care Team (Late st Contact Info) Description 08/17/2024 9:40 AM EDT Office Visit Gastroenterology, [facility] [place] [address] Eduar Beckham MD [facility] [place] [address] 10/07/2024 2:20 PM EDT Office Visit General Internal Medicine [address] [place] [address] Leyda Ahn MD 200 [facility] [place], [place] [address] 10/20/2024 2:00 PM EDT Office Visit Hematology/Oncology [facility] [address] [facility] [place], [place] [phone] Patricia Shin CRNP [address] [place] [address] 10/25/2024 2:30 PM EDT Office Visit Rheumatology [facility] [address] [facility] [phone] Jose Manuel Thurston CRNP [address] [place] [address] [place] [address] 11/21/2024 1:00 PM EDT Imaging Radiology [facility] [address] [place] [phone] 11/29/2024 8:30 AM EDT [facility] [address] [place] [address] Ritu Vasquez, PAHarpreet [address] [place] [address] Scheduled Procedures Name Priority Associated Diagnoses Date/Ti [...] this encounter Medical Devices Implanted Type Area [id number] Application Developer Device Identifier Shelf Expiration Date Model / Serial / Lot Valve Ce Aortic 21mm 3000tfx - [id number] Implanted:Qty : 1 on [place]17/2010 [place] [facility] [place] - Non Human N/A: Chest [employer] 04/17/2010 3000TFX-2 [id number] / Patch Pericard 8x14cm [id number] - [id number] Implanted:Qty : 1 on 04/17/2010 [place] [facility] Tissue - Non Human N/A: Chest [employer] 12/05/2014 -[id number] / / [id number] Sut Steel 6 M654g - [id number] Implanted:Qty : 4 on 04/17/2010 [place] [facility] N/A: Chest DO NOT USE 06/17/2014 M654G / / [id number] documented as of this encounter Advance Directives Documents on File Type Date Recorded 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 Care Teams Producer Relationship Specialty Start Date End Date Leyda Ahn MD [address] [place] [address], [place] [address] PCP - General Internal Medicine 02/02/24 documented as of this encounter
--- OUTSIDE RECORDS SUMMARY | 2024-08-27 10:58 | External Medical Summary | Summary of Care ---
Author Name Unknown Organization [facility] Address [address] [place] [address] Phone [phone] Care Team Providers Care Plant Safety Leader Name Role Phone Leyda Ahn MD Primary Care Provider [phone] Reason for Visit * Reason Onset Date Comments Referral 07/22/2024 Home Health Encounter Details Date Type Department Care Team (Late st Contact Info) Description 07/22/2024 Telephone General Internal Medicine [facility] [address] [facility] [place] [address] Leyda Ahn MD [address] [place] [address] Referral (Home Health) Allergies Active Allergy Reactions Criticality Noted Date Comments Pantoprazole 01/29/2022 Itchiness, rash Penicillins Hives 01/13/2003 hives documented as of this encounter (statuses as of 07/22/2024) Medications Acetaminophen ER 650 MG Oral Tablet [...] (HCC),Pulmonary hypertension (HCC),Stenosis of prosthetic aortic valve, sequela,Paroxysmal atrial flutter (HCC),Bilateral leg edema,History of transcatheter aortic valve replacement (TAVR),Paroxysmal atrial fibrillation (HCC),Other ascites,Acute on chronic right-sided heart failure (HCC) 40 mg tue,nigel,Sat, 20 mg other days from 07/22/2024, lab 10 days 45 Tablet 1 Active documented as of this encounter (statuses as of 07/22/2024) Active Problems Problem Noted Date Diagnosed Date [...] as of this encounter (statuses as of 07/22/2024) Resolved Problems Problem Noted Date Diagnosed Date Resolved Date Permanent atrial fibrillation 03/28/2019 10/28/2021 Chronic systolic CHF (conges tive heart failure) 03/28/2019 01/03/2021 CHF with right heart failure 03/21/2019 03/12/2022 Atherosclerosis of aorta 11/16/2018 Carpal tunnel syndrome 03/28/201302/10 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 Henriquez [facility] [place] asymptomatic en plaque [...] well after 03/29 surgical repair LOC PRIM [id number] 05/09/2003 10/0 10/2016 Esotropia 01/13/2003 02/10/2017 Overview (01/13/2003): 7/03- R sixth nerve palsy- improving MRI/MRA negative Alopecia 01/13/2003 02/10/2017 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/2002 09/20/2018 Overview (06/16/2002): not bx proven DIVERTICULOSIS OF COLON 06/16/200202/22 Menopause 06/16/2002 10/23/2021 Abnormal weight gain 06/16/2002 017 documented as of this encounter (statuses as of 07/22/2024) Immunizations Name Administration Dates Next Due COVID-19 mRNA, LNP-s, No Pre serve, 2-Dose Series (Moderna) 08/30/2020,07/25/2020 COVID-19, MRNA-LNP, PF, 30 M CG/0.3 mL, 12 YRS AND ABOVE, IM [facility] 09/29/2023 COVID-19, mRNA, LNP-s, PF, B ooster, [...] 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 * Telephone Encounter - Edie Pimentel LPN - 07/22/2024 2:33 PM EST On 07-01-2024 a home health referral was placed for this patient, looks like for [facility]. Is there anyway to check if this was done? Patient has received no phone calls about this. documented in this encounter Plan of Treatment Upcoming Encounters Date Type Department Care Team (Late st Contact Info) Description 08/17/2024 9:40 AM EDT Office Visit Gastroenterology, [facility] [address] [place] [address] Eduar Beckham MD [address] [place] [address] 08/22/2024 12:40 PM EDT Office Visit General Internal Medicine [facility] [address] [facility] [place] [address] Leyda Ahn MD [address] [facility] [place] [address] 10/07/2024 2:20 PM EDT Office Visit General Internal Medicine [facility] [address] [facility] [place] [address] Leyda Ahn MD [address] [facility] [place] [address] 10/20/2024 2:00 PM EDT Office Visit Hematology/Oncology [facility] [address] [facility] [place] [phone] Patricia Shin CRNP [address] [facility] [place] [address] 10/25/2024 2:30 PM EDT Office Visit Rheumatology [facility] [address] [place] [phone] Jose Manuel Thurston CRNP [address] [place] [address] [place] [address] 11/21/2024 1:00 PM EDT Imaging Radiology [facility] [address] [place] [phone] 11/29/2024 8:30 AM EDT Office Visit Cardiology, [facility] [address] [place] [address] Ritu Vasquez, MANOLO [address] [place] [address] Scheduled Procedures Name Priority Associated Diagnoses Date/Ti [...] Additional history exists Zoster Vaccines Completed 02/02/2024, 0511/2023, 09/14/2014, Additional history exists HPV (Gardasil) Vaccine [...] this encounter Medical Devices Implanted Type Area Appointment Setter Device Identifier Shelf Expiration Date Model / Serial / Lot Valve Ce Aortic 21mm 3000tfx - [id number] Implanted:Qty : 1 on 04/17/2010 [place] [facility] Tissue - Non Human N/A: Chest [employer] 04/17/2010 3000TFX-2 [id number] / Patch Pericard 8x14cm [id number] - [id number] Implanted:Qty : 1 on 04/17/2010 at [place] [facility] Tissue - Non Human N/A: Chest [employer] 12/05/2014 PC-[id number] / / [id number] Sut Steel 6 M654g - [id number] Implanted:Qty : 4 on 04/17/2010 at [place] [facility] N/A: Chest DO NOT USE 06/17/2014 M654G / / [id number] documented as of this encounter Advance Directives Documents on File Type Date Recorded 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 Care Teams Plant Safety Leader Relationship Specialty Start Date End Date Leyda Ahn MD [address] [place] [address] PCP - General Internal Medicine 02/02/24 documented as of this encounter
--- OUTSIDE RECORDS SUMMARY | 2024-08-27 10:58 | External Medical Summary ---
Author Name Unknown Address Unknown Organization K09:[facility] [place] [address] Laboratory Report Ordering Provider Test Date Status CASE WHITLOCK 07/22/2024 14:29:13 Final Observation Date Value Abnormality Reference (Units ) Status BUN 07/22/2024 14:29:13 29 Above high normal 6-20 (mg/dL) Final Creatinine 07/22/2024 14:29:13 0.9 0.5-1.0 (mg/dL) Final Glomerular filtration rate/1.73 sq M.predicted [Volume Rate/Area] in Serum, Plasma or Blood by Creatinine-based formula (CKD-EPI) 07/22/2024 14:29:13 67 >=60 (mL/min) Final eGFR is calculated based on the CKD-EPI 2020 equation. Sodium 07/22/2024 14:29:13 139 135-146 (m mol/L) Final Potassium 07/22/2024 14:29:13 4.4 3.5-5.1 (m mol/L) Final Cl 07/22/2024 14:29:13 97 Below low normal 98- 107 (mmol/L) Final CO2 07/22/2024 14:29:13 30 22-32 (mmo l/L) Final Anion gap 07/22/2024 14:29:13 12 7-15 (mmol /L) Final Glucose 07/22/2024 14:29:13 76 70-120 (mg /dL) Final Calcium 07/22/2024 14:29:13 9.2 8.4-10.2 ( mg/dL) Final Performing Location [facility] [place] [address]
--- OUTSIDE RECORDS SUMMARY | 2024-08-27 10:58 | External Medical Summary | Summary of Care ---
Author Name Unknown Organization [facility] Address [address] [place] [address] Phone [phone] Care Team Providers Care Functional Manager Name Role Phone Leyda Ahn MD Primary Care Provider Reason for Visit * Reason Onset Date Comments Medication Refill 07/11/2024 Encounter Details Date Type Department Care Team (Late st Contact Info) Description 07/11/2024 Refill Gastroenterology, [facility] [address] [facility] [place] [address] Jason Lagos CRNP [address] [place] [address] Crohn's disease of large intestine without complication [...] 4d/wk 07/06/2024 1 Tablet 07/06/19 25 Active Mesalamine 1.2 GM Oral Tablet Delayed Release (Lialda)Indication s:Crohn's disease of large intestine without complication (HCC) Take 2 Tablets by mouth in the morning. 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 Authorizing Provider: JASON LAGOS * Telephone Encounter - Keara Degroot LPN - 07/12/2024 8:33 AM ESTPending Prescriptions: Disp Refills Mesalamine 1.2 GM Oral Tablet Delayed Rele*90 Tab*0 Sig: Take 2 Tablets by mouth in the morning. * Telephone Encounter - Keara Degroot LPN - 07/12/2024 8:29 AM EST Did you pend patient's preferred pharmacy and medication before forwarding?yes Pharmacy: [id number] Pending Prescriptions: Disp Refills Mesalamine 1.2 GM Oral Tablet Delayed Rel*60 Tab*0 Sig: Take 2 Tablets by mouth in the morning. Last Visit: 01/22/2022 (in office), Visit date not found (telemedicine) Next Visit: 08/17/2024 If no future appointments scheduled, and last appointment is greater than a year ago, please schedule patient for a follow-up appointment Last date the medication was ordered: 10/29/2023 Is this request for a controlled substance?No Urine Drug Screen:No results found. However, due to the size of the patient record, not all encounters were searched. Please check Results Review for a complete set of results. Patient Phone Numbers Labs: Lab Results Component Value Date/Time CREAT 0.9 07/01/2024 01:52 PM CREAT 0.42 (L) 09/19/2022 03:07 AM CREAT 1.0 06/15/2020 01:48 PM POTASSIUM 6.1 (H) 07/01/2024 01:52 PM POTASSIUM 3.9 09/19/2022 03:07 AM POTASSIUM 4.2 06/15/2020 01:48 PM TSH 0.76 07/01/2024 01:52 PM TSH 0.174 (A) 11/12/2021 12:00 AM TSH 0.87 06/15/2020 01:48 PM LDL 78 06/15/2020 01:48 PM LDL NOT APPLICABLE 06/15/2020 01:48 PM ALT 9 (L) 07/01/2024 01:52 PM ALT 25 06/15/2020 01:48 PM HGBA1C 5.0 06/15/2020 01:48 PM documented in this encounter Plan of Treatment Upcoming Encounters Date Type Department Care Team (Late st Contact Info) Description 08/17/2024 9:40 AM EDT Office Visit Gastroenterology, [facility] [address] [place] [address] Eduar Beckham MD [address] [place] [address] 10/07/2024 2:20 PM EDT Office Visit General Internal Medicine [facility] [place] [address] [facility] [place] [address] Leyda Ahn MD [address] [facility] [place] [address] 10/20/2024 2:00 PM EDT Office Visit Hematology/Oncology [facility] [place] [address] [place] [address] Patricia Shin CRNP [address] [place] [address] [place] [phone] 10/25/2024 2:30 PM EDT Office Visit Rheumatology [facility] [address] [place] [phone] Jose Manuel Thurston CRNP [address] [facility] [place] [address] 11/21/2024 1:00 PM EDT Imaging Radiology [facility] [address] [place] [phone] 11/29/2024 8:30 AM EDT Office Visit Cardiology, [facility] [address] [place] [address] Ritu Vasquez, MANOLO [address] [place] [address] Scheduled Procedures Name Priority Associated Diagnoses Date/Ti [...] this encounter Medical Devices Implanted Type Area Message Clerk Device Identifier Shelf Expiration Date Model / Serial / Lot Valve Ce Aortic 21mm 3000tfx - [id number] Implanted:Qty : 1 on 04/17/2010 [place] [facility] Tissue - Non Human N/A: Chest [employer] 04/17/2010 3000TFX-2 [id number] / Patch Pericard 8x14cm [id number] - [id number] Implanted:Qty : 1 on 04/17/2010 [place] [facility] Tissue - Non Human N/A: Chest [employer] 12/05/2014 PC-0814N / / [id number] Sut Steel 6 M654g - [id number] Implanted:Qty : 4 on 04/17/2010 [place] [facility] N/A: Chest DO NOT USE 06/17/2014 M654G / / [id number] documented as of this encounter Visit Diagnoses Diagnosis Crohn's disease of large intestine without complication (HCC)- Primary Regional enteritis of large intestine documented in this encounter Advance Directives Documents on File Type Date Recorded Patient Trade Sales Assistant Expl 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 Care Teams Functional Manager Relationship Specialty Start Date End Date Leyda Ahn MD [address] [place] [address] PCP - General Internal Medicine 02/02/24 documented as of this encounter
--- OUTSIDE RECORDS SUMMARY | 2024-08-27 10:58 | External Medical Summary | Summary of Care ---
Author Name Unknown Organization [facility] Address [address] [place] [address] Phone [phone] Care Team Providers Care Bead Picker Name Role Phone Leyda Ahn MD Primary Care Provider [phone] Reason for Visit * Reason Comments Acute Leg swelling, abdomi nal swelling Encounter Details Date Type Department Care Team (Latest Contact Info) Description 07/22/2024 1:00 PM EST Office Visit General Internal Medicine [facility] [address] [place] [address] Leyda Ahn MD [address] [place] [address] Chronic diastolic heart failure due to valvular [...] as of this encounter (statuses as of 07/24/2024) Medications Acetaminophen ER 650 MG Oral Tablet Extended Release 2 pill daily in AM & 2 pills in afternoon if needed 015 Active oxygen IN GAS 2L/min(Oxygen ) continuous via nasal cannula. 1 Each 023 Active Clobetasol Propionate 0.05 % External SolutionIndicatio ns:Pruritic dermatosis of scalp,Scalp itch Apply topically to affected area 2 times a day. On scalp , use till better then as needed 25 mL 1 024 Active Cetirizine HCl 10 MG Oral Tablet (ZyrTEC Allergy)Indicatio ns:Chronic rhinitis Take 1 Tablet by mouth in the morning. 024 Active Levothyroxine Sodium 100 MCG Oral Tablet (Levoxyl)Indicati ons:Acquired hypothyroidism Take 1 Tablet by mouth in the morning. (at least 30 min prior to breakfast or other meds)--02/03/2024, lab 10 wks. 90 Tablet 024 Active Digoxin 125 MCG Oral Tablet [...] to 4d/wk 07/06/2024 1 Tablet 025 Active Mesalamine 1.2 GM Oral Tablet Delayed Release (Lialda)Indicatio ns:Crohn's disease of large intestine without complication (HCC) Take 2 Tablets by mouth in the morning. 90 Tablet 3 025 Active Gabapentin 100 MG Oral Capsule [...] lab 10 days 45 Tablet 1 025 Active Zoster Vac Recomb Adjuvanted 50 MCG/0.5ML [...] per pt 04/17 024 2024 Discontinued(R efill) Furosemide 40 MG Oral Tablet (Lasix)Indication s:Stenosis of prosthetic aortic valve, sequela,Pulmonary hypertension (HCC),Paroxysmal atrial fibrillation (HCC),Paroxysmal atrial flutter (HCC),History of transcatheter aortic valve replacement (TAVR),Bilateral leg edema,Chronic diastolic heart failure due to valvular disease (HCC) Take 1 Tablet by mouth. 40 mg tue,nigel,Sa. 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 09/20/2018 Overview (06/16/2002): not bx proven DIVERTICULOSIS OF COLON 06/16/200202/222 Menopause 06/16/2002 10/23/2021 Abnormal weight gain 06/16/2002 017 documented as of this encounter (statuses as of 07/24/2024) Immunizations Name Administration Dates Next Due COVID-19 [...] 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 Jordan, 3 day Zio showed atrial flutter no tachycardia or bradycardia recommend use of oxygen at night admitted to [facility] 11/2023 Echo-LVEF 55 to 60%moderate concentric LVH, [...] week, increased to Lasix 40mg daily at [facility] for bilateral leg edema 01/08/202404/17--saw [facility] [...] head-no interval changes from last CT head 03/22/20198010-wxcu-ki-moderate age-related cerebral atrophy with compensatory dilation of [...] tobacco abuse History of vitamin-D deficiency completed 49076 units weekly for 12 weeks in 2022, [...] in her neck and received injections by [facility] pain [facility] currently taking Tylenol 3 a [...] thighs Abdomen: Soft, distension,+ascites, bloating, epigastric hernia gakona size,reducible, non-tender, normal bowel sounds, no masses [...] other days from 07/22/2024, lab 10 days Bilateral leg edema - Furosemide 40 MG [...] with plan of care. Leyda Ahn MD 07/22/2024 documented in this encounter [...] Thursday this week. documented in this encounter Plan of Treatment Upcoming Encounters Date Type Department Care Team (Late st Contact Info) Description 08/17/2024 9:40 AM EDT Office Visit Gastroenterology, [facility] [address] [place] [address] Eduar Beckham MD [address] [place] [address] 08/22/2024 12:40 PM EDT Office Visit General Internal Medicine [facility] [address] [facility] [place], [place] [address] Leyda Ahn MD [address] [facility] [place], [place] [address] 10/07/2024 2:20 PM EDT Office Visit General Internal Medicine [facility] [address] [facility] [place] [address] Leyda Ahn MD [address] [facility] [place], [place] [address] 10/20/2024 2:00 PM EDT Office Visit Hematology/Oncology [facility] [address] [facility] [place], [place] [phone] Patricia Shin CRNP [address] [place] [address] 10/25/2024 2:30 PM EDT Office Visit Rheumatology [facility] [address] [place] [phone] Jose Manuel Thurston CRNP [address] [facility] [place], [place] [address] 11/21/2024 1:00 PM EDT Imaging Radiology [facility] [address] [place] [phone] 11/29/2024 8:30 AM EDT Office Visit Cardiology, [facility] [address] [place] [address] Ritu Vasquez PA-C [address] [place] [address] Scheduled Orders Name Type Priority Associated Diagnoses Orde r Schedule COMPREHENSIVE METABOLIC PANEL Lab STAT Chronic diastolic heart failure due to valvular disease (HCC) Other ascites Acute on chronic right-sided heart failure (HCC) Expected: 08/03/2024 (Approximate), Expires: 07/22/2025 Scheduled Procedures Name Priority Associated Diagnoses Date/Ti [...] this encounter Medical Devices Implanted Type Area Quality Control Assistant Device Identifier Shelf Expiration Date Model / Serial / Lot Valve Ce Aortic 21mm 3000tfx - [id number] Implanted:Qty : 1 on 04/17/2010 at OR [facility] Tissue - Non Human N/A: Chest [employer] ELISABETH 04/17/2010 3000TFX-2 / [id number] / Patch Pericard 8x14cm [id number] - [id number] Implanted:Qty : 1 on 04/17/2010 at OR [facility] Tissue - Non Human N/A: Chest [employer] 12/05/2014 -0814N / / [id number] Sut Steel 6 M654g - [id number] Implanted:Qty : 4 on 04/17/2010 at OR [facility] N/A: Chest DO NOT USE 06/17/2014 M654G / / [id number] documented as of this encounter Visit Diagnoses Diagnosis Chronic diastolic [...] unspecified, not of 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 ([facility]) B12 deficiency Other B-complex deficiencies COPD, group B, by GOLD 2017 classification ([facility]) Chronic rhinitis Osteopenia of necks of both [...] Documents on File Type Date Recorded Patient Compress Trucker Expl 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 Care Teams Bead Picker Relationship Specialty Start Date End Date Leyda Ahn MD [address] [place] [address] PCP - General Internal Medicine 02/02/24 documented as of this encounter
--- OUTSIDE RECORDS SUMMARY | 2024-08-27 10:58 | External Medical Summary | Summary of Care ---
Author Name Unknown Organization [facility] Address [address] [place] [address] Phone [phone] Care Team Providers Care Typewriter Tester Name Role Phone Leyda Ahn MD Primary Care Provider Reason for Visit * Reason Onset Date Comments Medication Refill 07/11/2024 Encounter Details Date Type Department Care Team (Late st Contact Info) Description 07/11/2024 Refill Cardiology, [facility] [address] [place] [address] Rajesh Jordan MD [address] [facility] [place] [address] Paroxysmal atrial fibrillation (HCC) Allergies Active Allergy [...] 04/05/2024--de c to 4d/wk 07/06/2024 1 Tablet Active documented as of this encounter (statuses [...] 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 Not on file Not on file documented as of this encounter Miscellaneous Notes * Telephone Encounter - Tamia Capellan two - 07/12/2024 12:00 AM ESTRefused Prescriptions: Disp Refills Metoprolol Succinate ER 25 MG Oral Tablet *90 Tab*3 Sig: Take 1Tablet by mouth in the morning.Refused By: TAMIA CAPELLANReason for Refusal: Too soon documented in this encounter Plan of Treatment Upcoming Encounters Date Type Department Care Team (Late st Contact Info) Description 08/17/2024 9:40 AM EDT Office Visit Gastroenterology, [facility] [address] [place] [address] [address] Eduar Beckham MD [address] [place] [address] 10/07/2024 2:20 PM EDT Office Visit General Internal Medicine [facility] [address] [facility] [place] [address] Leyda Ahn MD [address] [facility] [place] [address] 10/25/2024 2:30 PM EDT Office Visit Rheumatology [facility] [address] [place] [phone] Jose Manuel Thurston CRNP [address] [place] [address] [place], [place] [address] 11/21/2024 1:00 PM EDT Imaging Radiology [facility] [address] [place] [phone] 11/29/2024 8:30 AM EDT Office Visit Cardiology, [facility] [address] [place] [address] Ritu Vasquez PA-C [address] [place] [address] Scheduled Procedures Name Priority Associated Diagnoses Date/Ti [...] this encounter Medical Devices Implanted Type Area Shovel Logger Device Identifier Shelf Expiration Date Model / Serial / Lot Valve Ce Aortic 21mm 3000tfx - [id number] Implanted:Qty : 1 on 04/17/2010 at [place] [facility] Tissue - Non Human N/A: Chest [employer] ELISABETH 04/17/2010 3000TFX-2 [id number] / Patch Pericard 8x14cm [id number] - [id number] Implanted:Qty : 1 on 04/17/2010 at [place] [facility] Tissue - Non Human N/A: Chest [employer] 12/05/2014 PC-0814N / / [id number] Sut Steel 6 M654g - [id number] Implanted:Qty : 4 on 04/17/2010 at [place] [facility] N/A: Chest DO NOT USE 06/17/2014 M654G / / [id number] documented as of this encounter Visit Diagnoses Diagnosis Paroxysmal atrial fibrillation (HCC) Atrial fibrillation documented in this encounter Advance Directives Documents on File Type Date Recorded Patient Staple Fiber Washer Expl 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 Care Teams Typewriter Tester Relationship Specialty Start Date End Date Leyda Ahn MD [address] [place] [address] PCP - General Internal Medicine 02/02/24 documented as of this encounter
--- OUTSIDE RECORDS SUMMARY | 2024-08-27 10:58 | External Medical Summary | Summary of Care ---
Author Name Unknown Organization [facility] Address [address] [place] [address] Phone [phone] Care Team Providers Care Helper Shear Operator Name Role Phone Leyda Ahn MD Primary Care Provider [phone] Reason for Visit * Reason Onset Date Comments Test Results Lab 07/12/2024 Encounter Details Date Type Department Care Team (Late st Contact Info) Description 07/12/2024 Telephone General Internal Medicine [facility] [address] [facility] [address] Leyda Ahn MD [address] [place] [address] Test Results Lab Allergies Active Allergy Reactions [...] 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 Henriquez [facility] [...] well after 03/29 surgical repair LOC PRIM [id number] 05/09/200310/2016 Esotropia 01/13/2003 02/10/2017 Overview (01/13/2003): 11/24- [...] CG/0.3 mL, 12 YRS AND ABOVE, IM ([facility]) 09/29/2023 COVID-19, mRNA, LNP-s, PF, B ooster, [...] Telephone Encounter - Heaven Mckoy CMA - 07/12/2024 10:31 AM EST Spoke with patient's daughter. She is aware as she read the results and note in the zhou. Will decrease. * Telephone Encounter - Heaven Mckoy CMA - 07/12/2024 10:30 AM EST ----- Message from Leyda Ahn MD sent at 07/11/2024 5:49 PM EST ----- Regarding: Notification of Unviewed Test Results Contact: Please call patient/daughter with unread result notes documented in this encounter Plan of Treatment Upcoming Encounters Date Type Department Care Team (Late st Contact Info) Description 08/17/2024 9:40 AM EDT Office Visit Gastroenterology, [facility] [address] [place] [address] Eduar Beckham MD [address] [place] [address] 10/07/2024 2:20 PM EDT Office Visit General Internal Medicine [facility] [address] [facility] [place] [address] Leyda Ahn MD [address] [facility] [place] [address] 10/25/2024 2:30 PM EDT Office Visit Rheumatology [facility] [address] [place] [phone] Jose Manuel Thurston CRNP [address] [place] [address] [place] [address] 11/21/2024 1:00 PM EDT Imaging Radiology [facility] [address] [place] [phone] 11/29/2024 8:30 AM EDT Office Visit Cardiology, [facility] [address] [place] [address] Ritu Vasquez PA-C [address] [place] [address] Scheduled Procedures Name Priority Associated Diagnoses Date/Ti [...] encounter Medical Devices Implanted Type Area Senior Support Analyst Device Identifier Shelf Expiration Date Model / Serial / Lot Valve Ce Aortic 21mm 3000tfx - [id number] Implanted:Qty : 1 on 04/17/2010 at [place] [facility] Tissue - Non Human N/A: Chest [employer] ELISABETH 04/17/2010 3000TFX-2 / [id number] / Patch Pericard 8x14cm [id number] - [id number] Implanted:Qty : 1 on 04/17/2010 at OR [facility] Tissue - Non Human N/A: Chest [employer] 12/05/2014 PC-0814N / / [id number] Sut Steel 6 M654g - [id number] Implanted:Qty : 4 on 04/17/2010 at OR [facility] N/A: Chest DO NOT USE 06/17/2014 M654G / / [id number] documented as of this encounter Advance Directives Documents on File Type Date Recorded Patient Order Entry Clerk Expl 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 Care Teams Helper Shear Operator Relationship Specialty Start Date End Date Leyda Ahn MD [address] [place] [address] PCP - General Internal Medicine 02/02/24 documented as of this encounter
--- OUTSIDE RECORDS SUMMARY | 2024-08-27 10:58 | External Medical Summary | Summary of Care ---
Author Name Unknown Organization [facility] Address [address] [place] [address] Phone [phone] Care Team Providers Care Snowboarding Instructor Name Role Phone Leyda Ahn MD Primary Care Provider [phone] Reason for Visit * Reason Comments Outpatient Testing Encounter Details Date Type Department Care Team (Late st Contact Info) Description 07/22/2024 2:30 PM EST Laboratory Laboratory [facility] [place] [address] [place] [phone] [facility] [address] [place] [address] Hyperkalemia Allergies Active Allergy Reactions Criticality Noted Date [...] 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 Not on file Not on file documented as of this encounter Plan of Treatment Upcoming Encounters Date Type Department Care Team (Late st Contact Info) Description 08/17/2024 9:40 AM EDT Office Visit Gastroenterology, [facility] [address] [place] [address] Eduar Beckham MD [address] [place] [address] 08/22/2024 12:40 PM EDT Office Visit [facility] Internal [facility] [place] [address] [place], [place] [address] Leyda Ahn MD [address] [place] [address] 10/07/2024 2:20 PM EDT Office Visit General Internal Medicine [facility] [address] [facility] [place] [place] [address] Leyda Ahn MD 200 [facility] [place] [address] 10/20/2024 2:00 PM EDT Office Visit Hematology/Oncology [facility] [place] [address] [facility] [place] [phone] Patricia Shin CRNP [address] [facility] [place] [address] 10/25/2024 2:30 PM EDT Office Visit Rheumatology [facility] [address] [facility] [place] [phone] Jose Manuel Thurston CRNP [address] [facility] [place] [address] 11/21/2024 1:00 PM EDT Imaging Radiology [facility] [address] [facility] [place] [phone] 11/29/2024 8:30 AM EDT Office Visit Cardiology, [facility] 132 [facility] [place] [address] Ritu Vasquez PA-C [address] [place] [address] Scheduled Procedures Name Priority Associated Diagnoses Date/Ti [...] this encounter Medical Devices Implanted Type Area Avionics Systems Engineer Device Identifier Shelf Expiration Date Model / Serial / Lot Valve Ce Aortic 21mm 3000tfx - [id number] Implanted:Qty : 1 on 04/17/2010 at OR [facility] Tissue - Non Human N/A: Chest [employer] ELISABETH 04/17/2010 3000TFX-2 / [id number] / Patch Pericard 8x14cm [id number] - [id number] Implanted:Qty : 1 on 04/17/2010 at OR [facility] Tissue - Non Human N/A: Chest [employer] 12/05/2014 -0814N / / [id number] Sut Steel 6 M654g - [id number] Implanted:Qty : 4 on 04/17/2010 at OR [facility] N/A: Chest DO NOT USE 06/17/2014 M654G / / [id number] documented as of this encounter Procedures Procedure Name Priority Date/Time Associated Diagnosis Comments BASIC METABOLIC PANEL Routine 07/22/2024 2:29 PM EST Hyperkalemia documented in this encounter Results * (ABNORMAL) BASIC METABOLIC PANEL (07/22/2024 2:29 PM EST) BUN 29(H) 6 - 20 mg/dL 07/22/2024 4:41 PM EST [facility] 56 CREATININE 0.9 0.5 - 1.0 mg/dL 07/22/2024 4:41 PM EST [facility] 56 EGFR 67 >=60 mL/min 07/22/2024 4:41 PM EST [facility] 56 Comment:eGFR is calculated b ased on the CKD-EPI 2020 equation. SODIUM 139 135 - 146 mmol/L 07/22/2024 4:41 PM EST [facility] [place] 56 POTASSIUM 4.4 3.5 - 5.1 mmol/L 07/22/2024 4:41 PM EST [facility] 56 CHLORIDE 97(L) 98 - 107 mmol/L 07/22/2024 4:41 PM EST [facility] 56 CO2 30 22 - 32 mmol/L 07/22/2024 4:41 PM EST [facility] 56 ANION GAP 12 7 - 15 mmol/L 07/22/2024 4:41 PM EST [facility] 56 GLUCOSE 76 70 - 120 mg/dL 07/22/2024 4:41 PM EST [facility] 56 CALCIUM 9.2 8.4 - 10.2 mg/dL 07/22/2024 4:41 PM EST [facility] 56 Blood Venous blood specimen / Unknown Venipuncture / Unknown 07/22/2024 2:29 PM EST 07/22/2024 2:29 PM EST us Maxwell Sellers MD LAB BLOOD ORDERABLES Fin al Result [facility] 56 200 [facility] [place] [address] documented in this encounter Visit Diagnoses Diagnosis Hyperkalemia Hyperpotassemia documented in this encounter Advance Directives Documents on File Type Date Recorded Patient Physical Therapist Aide Expl 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 Care Teams Snowboarding Instructor Relationship Specialty Start Date End Date Leyda Ahn MD 200 [facility] [place] [address] PCP - General Internal Medicine 02/02/24 documented as of this encounter
--- OUTSIDE RECORDS SUMMARY | 2024-08-27 10:58 | External Medical Summary | Summary of Care ---
Author Name Unknown Organization [facility] Address [address] [place] [address] Phone [phone] Care Team Providers Care Flaking Roll Operator Name Role Phone Leyda Ahn MD Primary Care Provider [phone] Encounter Details Date Type Department Care Team (Late st Contact Info) Description 07/19/2024 Orders Only PATIENT PORTAL DO NOT DELETE THIS DEPT USED BY VESNA ANDRADE [id number] Allergies Active Allergy Reactions Criticality Noted Date Comments Pantoprazole 01/29/2022 Itchiness, rash Penicillins Hives 01/13/2003 hives documented as of this encounter (statuses as of 07/19/2024) Medications Acetaminophen ER 650 MG Oral Tablet [...] c to 4d/wk 07/06/2024 1 Tablet Active Mesalamine 1.2 GM Oral Tablet Delayed Release (Lialda)Indication s:Crohn's disease of large intestine without complication (HCC) Take 2 Tablets by mouth in the morning. 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 09/20/2018 Overview (06/16/2002): not bx proven DIVERTICULOSIS OF COLON 06/16/200202/22 Menopause 06/16/2002 10/23/2021 Abnormal weight gain 06/16/2002 017 documented as of this encounter (statuses as of 07/19/2024) Immunizations Name Administration Dates Next Due COVID-19 mRNA, LNP-s, No Pre serve, 2-Dose Series (Moderna) 08/30/2020,07/25/2020 COVID-19, MRNA-LNP, PF, 30 M CG/0.3 mL, 12 YRS AND ABOVE, IM ([employer]) 09/29/2023 COVID-19, mRNA, LNP-s, PF, B ooster, [...] 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 Not on file Not on file documented as of this encounter Plan of Treatment Upcoming Encounters Date Type Department Care Team (Late st Contact Info) Description 07/22/2024 1:00 PM EST Office Visit General Internal Medicine [facility] [address] [place] [address] Leyda Ahn MD [address] [facility] [place] [address] [address] 08/17/2024 9:40 AM EDT Office Visit Gastroenterology, [facility] [address] [address] Eduar Beckham MD [address] [place] [address] 10/07/2024 2:20 PM EDT Office Visit General Internal Medicine [facility] [address] [facility] [place] [address] Leyda Ahn MD 200 [facility] [place] [address] 10/20/2024 2:00 PM EDT Office Visit Hematology/Oncology [facility] 200 [facility] [place] [phone] Patricia Shin CRNP [address] [facility] [place] [phone] 10/25/2024 2:30 PM EDT Office Visit Rheumatology [facility] [address] [facility] [place] [phone] Jose Manuel Thurston CRNP [address] [facility] [place] [address] 11/21/2024 1:00 PM EDT Imaging Radiology [facility] [address] [place] [phone] 11/29/2024 8:30 AM EDT Office Visit Cardiology, [facility] 132 [facility] [place] [address] Ritu Vasquez PA-C [address] [place] [address] Scheduled Procedures Name Priority Associated Diagnoses Date/Ti [...] this encounter Medical Devices Implanted Type Area Napper Tender Device Identifier Shelf Expiration Date Model / Serial / Lot Valve Ce Aortic 21mm 3000tfx - [id number] Implanted:Qty : 1 on [place] [facility] [place] Human N/A: Chest [employer] 04/17/2010 3000TFX-2 [id number] / Patch Pericard 8x14cm [id number] - [id number] Implanted:Qty : 1 on [place]17/[place] [facility] [place] - Non Human N/A: Chest [employer] 12/05/2014 -0814N / / [id number] Sut Steel 6 M654g - [id number] Implanted:Qty : 4 on 04/17/2010 [place] [facility] [place]A: Chest DO NOT USE 06/17/2014 [id number] / / [id number] documented as of this encounter Advance Directives Documents on File Type Date Recorded Patient Assurance Senior Manager Expl 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 Care Teams Flaking Roll Operator Relationship Specialty Start Date End Date Leyda Ahn MD [address] [place] [address] PCP - General Internal Medicine 02/02/24 documented as of this encounter
--- OUTSIDE RECORDS SUMMARY | 2024-08-27 10:59 | External Medical Summary ---
Author Name Unknown Address Unknown Organization K09:[facility] [address] [facility] [place] [address] Laboratory Report Ordering Provider Test Date Status YOLIS REDDING 07/01/2024 13:52:16 Final Observation Date Value Abnormality Reference (Units ) Status SYNC LEUKOCYTES IN BLOOD BY AUTOMATED COUNT 07/01/2024 13:52:16 4.63 4.00-10.80 (K/uL) Final Segs 07/01/2024 13:52:16 58.6 40.0-75.0 (%) Final Lymphs % 07/01/2024 13:52:16 22.9 18.0-42.0 (%) Final Monos 07/01/2024 13:52:16 15.3 Above high normal 1.0-11.0 (%) Final Eosinophils 07/01/2024 13:52:16 0.0 0.0-6.0 (%) Final Basos 07/01/2024 13:52:16 3.2 Above high normal 0.0-2.0 (%) Final Absolute Segs 07/01/2024 13:52:16 2.71 1.80-7.70 (K/uL) Final Lymphs, absolute 07/01/2024 13:52:16 1.06 1.00-4.80 (K/ul) Final Monos, Abs 07/01/2024 13:52:16 0.71 0.00-1.10 (K/uL) Final Eos, Abs 07/01/2024 13:52:16 0.00 0.00-0.70 (K/uL) Final Basos, Abs 07/01/2024 13:52:16 0.15 0.00-0.20 (K/uL) Final Performing Location [facility] [address] [place] [address]
--- OUTSIDE RECORDS SUMMARY | 2024-08-27 10:59 | External Medical Summary | Summary of Care ---
Author Name Unknown Organization [facility] Address [address] [place] [address] Phone [phone] Care Team Providers Care Blanking Press Operator Name Role Phone Leyda Ahn MD Primary Care Provider [phone] Reason for Visit * Reason Comments Outpatient Testing Encounter Details Date Type Department Care Team (Late st Contact Info) Description 05/30/2024 11:40 AM EST Laboratory Laboratory, [facility] [address] [place] [address] [facility] [address] [place] [address] COPD, mild (HCC); Paroxysmal atrial fibrillation (HCC); Venous insufficiency Allergies Active Allergy Reactions Criticality Noted Date Comments Pantoprazole 01/29/2022 Itchiness, rash Penicillins Hives 01/13/2003 hives documented as of this encounter (statuses as of 05/30/2024) Medications Acetaminophen ER 650 MG Oral Tablet [...] morning. 4 Active B-12 1000 MCG Oral TabletIndications: [...] as needed 30 g 1 4 Active Digoxin 125 MCG Oral [...] one 3 days per week 5 Active documented as of this encounter (statuses as of 05/30/2024) Active Problems Problem Noted Date Diagnosed Date [...] as of this encounter (statuses as of 05/30/2024) Resolved Problems Problem Noted Date Diagnosed Date Resolved Date Permanent atrial fibrillation 03/28/2019 10/28/2021 Chronic systolic CHF (conges tive heart failure) 03/28/2019 01/03/2021 CHF with right heart failure 03/21/2019 03/12/2022 Atherosclerosis of aorta 11/16/2018 Carpal tunnel syndrome 03/28/201302/10 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 10/19/202 2 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 [employer] Other*[id number] 04/08/2010 07/01/2016 Overview (04/30/2010): Study Titile: Genomics Markers for Patients with Cardiovascular Disease Project # [id number] PI: Aleisha Loredo MD Please call [phone] with study related questions AORTIC VALVE STENOSIS [...] well after 03/29 surgical repair LOC PRIM [id number] 05/09/2003 10/0 10/2016 Esotropia 01/13/2003 02/10/2017 Overview (01/13/2003): /- R sixth nerve palsy- improving MRI/MRA negative Alopecia 01/13/2003 02/10/2017 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/2002 09/20/2018 Overview (06/16/2002): not bx proven DIVERTICULOSIS OF COLON 06/16/200202/22 Menopause 06/16/2002 10/23/2021 Abnormal weight gain 06/16/2002 017 documented as of this encounter (statuses as of 05/30/2024) Immunizations Name Administration Dates Next Due COVID-19 mRNA, LNP-s, No Pre serve, 2-Dose Series (Moderna) 08/30/2020,07/25/2020 COVID-19, MRNA-LNP, PF, 30 M CG/0.3 mL, 12 YRS AND ABOVE, IM ([employer]) 09/29/2023 COVID-19, mRNA, LNP-s, PF, B ooster, [...] Care Team (Late st Contact Info) Description 08/12/2024 1:00 PM EDT Office Visit General Internal Medicine [facility] [address] [place] [address] [place] [address] [place] [address] Leyda Ahn MD [address] [place] [address] 08/17/2024 9:40 AM EDT Office Visit Gastroenterology, [facility] 132 [facility] [place] [address] Eduar Beckham MD [address] [place] [address] 10/20/2024 2:30 PM EDT Office Visit Hematology/Oncology [facility] 200 [facility] [place] [phone] Ghada Whaley CRNP 400 [facility] [place] [address] 10/25/2024 2:30 PM EDT Office Visit Rheumatology [facility] [address] [facility] [place] [address] Jose Manuel Thurston CRNP [address] [facility] [place] [address] 11/21/2024 1:00 PM EDT Imaging Radiology [facility] [address] [place] [phone] 11/29/2024 8:30 AM EDT Office Visit Cardiology, [facility] [address] [place] [address] Ritu Vasquez PA-C [address] [place] [address] Pending Results Name Type Priority Associated Diagnoses Date /Time BASIC METABOLIC PANEL Lab Routine COPD, mild (HCC) Paroxysmal atrial fibrillation (HCC) Venous insufficiency 05/30/2024 11:35 AM EST DIGOXIN LEVEL Lab Routine COPD, mild (HCC) Paroxysmal atrial fibrillation (HCC) Venous insufficiency 05/30/2024 11:35 AM EST Scheduled Procedures Name Priority Associated Diagnoses [...] IN PAST YEAR FOR COPD 05/16/2025 05/16/2024 DTap/Tdap Vaccines (3 - Td or Tdap) [...] this encounter Medical Devices Implanted Type Area Scratcher Device Identifier Shelf Expiration Date Model / Serial / Lot Valve Ce Aortic 21mm 3000tfx - [id number] Implanted:Qty : 1 on 04/17/[address] [facility] [place] - Non Human N/A: Chest [employer] ELISABETH 04/17/2010 3000TFX-2 [id number] / Patch Pericard 8x14cm [id number] - [id number] Implanted:Qty : 1 on 04/17/[address] [facility] [place] - Non Human N/A: Chest [employer] 12/05/2014 -0814N / / [id number] Sut Steel 6 M654g - [id number] Implanted:Qty : 4 on 04/17/[address] [facility] [place] N/A: Chest DO NOT USE 06/17/2014 [id number] / / [id number] documented as of this encounter Visit Diagnoses Diagnosis COPD, mild (HCC) Chronic airway obstruction, not elsewhere classified Paroxysmal atrial fibrillation (HCC) Atrial fibrillation Venous insufficiency Unspecified venous (peripheral) insufficiency documented in this encounter Advance Directives Documents on File Type Date Recorded Patient Reed Press Feeder Expl 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 Care Teams Blanking Press Operator Relationship Specialty Start Date End Date Leyda Ahn MD [address] [place] [address] PCP - General Internal Medicine 02/02/24 documented as of this encounter
--- OUTSIDE RECORDS SUMMARY | 2024-08-27 10:59 | External Medical Summary ---
Author Name Unknown Address Unknown Organization K01:[facility] [place] [address] [place] [address] Laboratory Report Ordering Provider Test Date Status BREANNA CHISHOLM 07/01/2024 13:52:16 Final Observation Date Value Abnormality Reference (Units ) Status Vitamin B12 07/01/2024 13:52:16 1938 Above high normal 232-1245 (pg/mL) Final Performing Location [facility] [address] [facility] [address]
--- OUTSIDE RECORDS SUMMARY | 2024-08-27 10:59 | External Medical Summary | Summary of Care ---
Author Name Unknown Organization [facility] Address [address] [place] [address] Phone [phone] Care Team Providers Care Night Nurse Name Role Phone Leyda Ahn MD Primary Care Provider [phone] Encounter Details Date Type Department Care Team (Late st Contact Info) Description 05/12/2024 Result Scan Unspecified Department <No scans attached> Allergies Active Allergy Reactions Criticality Noted Date Comments Pantoprazole 01/29/2022 Itchiness, rash Penicillins Hives 01/13/2003 hives documented as of this encounter (statuses as of 05/31/2024) Medications Acetaminophen ER 650 MG Oral Tablet [...] as needed 30 g 1 4 Active documented as of this encounter (statuses as of 05/31/2024) Active Problems Problem Noted Date Diagnosed Date [...] as of this encounter (statuses as of 05/31/2024) Resolved Problems Problem Noted Date Diagnosed Date Resolved Date Permanent atrial fibrillation 03/28/2019 10/28/2021 Chronic systolic CHF (conges tive heart failure) 03/28/2019 01/03/2021 CHF with right heart failure 03/21/2019 03/12/2022 Atherosclerosis of aorta 11/16/2018 Carpal tunnel syndrome 03/28/201302/10 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 09/20/2018 Overview (06/16/2002): not bx proven DIVERTICULOSIS OF COLON 06/16/200202/22 Menopause 06/16/2002 10/23/2021 Abnormal weight gain 06/16/2002 017 documented as of this encounter (statuses as of 05/31/2024) Immunizations Name Administration Dates Next Due COVID-19 [...] 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 Not on file Not on file documented as of this encounter Plan of Treatment Upcoming Encounters Date Type Department Care Team (Late st Contact Info) Description 08/12/2024 1:00 PM EDT Office Visit General Internal Medicine [facility] [address] [facility] [place] [address] Leyda Ahn MD [address] [facility] [place] [address] 08/17/2024 9:40 AM EDT Office Visit Gastroenterology, [facility] [address] [place] [address] Eduar Beckham MD 132 [facility] [place] [address] 10/20/2024 2:30 PM EDT Office Visit Hematology/Oncology [facility] [address] [facility] [place] [phone] Ghada Whaley CRNP [address] [place] [address] [place] [address] 10/25/2024 2:30 PM EDT Office Visit Rheumatology [address] [place] [address] Jose Manuel Thurston CRNP [address] [place] [address] [place] [address] 11/21/2024 1:00 PM EDT Imaging Radiology [facility] [address] [facility] [place] [phone] 11/29/2024 8:30 AM EDT Office Visit Cardiology, [facility] [address] [place] [address] Ritu Vasquez PA-C [address] [place] [address] Scheduled Procedures Name Priority Associated Diagnoses Date/Ti me COLONOSCOPY FLEXIBLE PROXIMA L DIAGNOSTIC Recall IBD (inflammatory bowel disease) Health Maintenance Due Date Last Done Comments DXA Scan 08/10/2023 08/09/2020, 07/23, 11/07/2009, Additional history exists Colonoscopy 12/26/2023 12/25/2021, 07/2021, 09/24/2018, Additional history exists COVID-19 Vaccine ( season) 2024 09/29/2023, 03/18/2022, 05/13/2021, Additional history exists Adult Wellness Visit 05/07/2024 05/07/2023 Depression Screening 05/15/2024 05/15/2023 TSH 04/04/2025 04/04/2024, 12/24, 05/15/2023, Additional history exists O2 ASSESSMENT COMPLETED IN PAST YEAR FOR COPD 05/16/2025 05/16/2024 DIG LEVEL FOR MEDICATION MONITORING YEARLY 05/30/2025 05/30/2024, 04/04/2024, 02/16/2023, Additional history exists DTap/Tdap Vaccines (3 [...] encounter Medical Devices Implanted Type Area Director Athletic Device Identifier Shelf Expiration Date Model / Serial / Lot Valve Ce Aortic 21mm 3000tfx - [id number] Implanted:Qty : 1 on 04/17/2010 at [place] [facility] [place] Tissue - Non Human N/A: Chest [employer] ELISABETH 04/17/2010 3000TFX-2 / [id number] / Patch Pericard 8x14cm [id number] - [id number] Implanted:Qty : 1 on 04/17/2010 at [place] [facility] [place] Tissue - Non Human N/A: Chest [employer] 12/05/2014 PC-0814N / / [id number] Sut Steel 6 M654g - [id number] Implanted:Qty : 4 on 04/17/2010 at [place] [facility] [place] N/A: Chest DO NOT USE 06/17/2014 M654G / / [id number] documented as of this encounter Procedures Procedure Name Priority Date/Time Associated Diagnosis Comments RADIOLOGY SCANNED RESULT 05/12/2024 RADIOLOGY SCANNED RESULT 05/12/2024 documented in this encounter Results * RADIOLOGY SCANNED RESULT (05/12/2024) 05/12/2024 us No Physician Data Unknown DIAGNOSTIC RADIOLOGY S ERVICES Final Result * RADIOLOGY SCANNED RESULT (05/12/2024) 05/12/2024 us No Physician Data Unknown DIAGNOSTIC RADIOLOGY S ERVICES Final Result documented in this encounter Advance Directives Documents on File Type Date Recorded Patient Composition Stone Applicator Expl 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 Care Teams Night Nurse Relationship Specialty Start Date End Date Leyda Ahn MD [address] [facility] [place] [address] PCP - General Internal Medicine 02/02/24 documented as of this encounter
--- OUTSIDE RECORDS SUMMARY | 2024-08-27 10:59 | External Medical Summary | Summary of Care ---
Author Name Unknown Organization [facility] Address [address] [place] [address] Phone [phone] Care Team Providers Care Retail Service Representative Name Role Phone Leyda Ahn MD Primary Care Provider [phone] Reason for Visit * Reason Comments Outpatient Testing Encounter Details Date Type Department Care Team (Latest Contact Info) Description 07/01/2024 1:50 PM EST Laboratory Laboratory [facility] [place] [address] [place] [phone] [facility] [address] [place] [address] Thrombocytopenia (HCC); Elevated bilirubin; 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); Acquired hypothyroidism; Paroxysmal atrial fibrillation (HCC); Paroxysmal atrial flutter (HCC); Bilateral leg edema; Chronic diastolic heart failure due to valvular disease (HCC); Pulmonary hypertension (HCC); B12 deficiency; Decreased platelet count (HCC); Elevated LFTs Allergies Active Allergy Reactions Criticality Noted Date [...] Release Take one 3 days per week Active Hydrocortisone 2.5 % External CreamIndications:E czematous skin lesions,Dry skin Apply topically to affected area 2 times a day. To affected area. 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 [employer] [facility] Other*[id number] 04/08/2010 07/01/2016 Overview (04/30/2010): Study Titile: [employer] Mark[employer] for Patients with Cardiovascular Disease Project # [id number] PI: Aleisha Loredo MD Please call [phone] with study related questions AORTIC VALVE STENOSIS [...] well after 03/29 surgical repair LOC PRIM [id number] 05/09/2003 10/0 10/2016 Esotropia 01/13/2003 02/10/2017 Overview [...] Date Job End Date [employer] Not on file Not on file Not on file documented as of this encounter Plan of Treatment Upcoming Encounters Date Type Department Care Team (Late st Contact Info) Description 08/17/2024 9:40 AM EDT Office Visit Gastroenterology, [facility] [address] [place] [address] Eduar Beckham MD [address] [place] [address] 10/07/2024 2:20 PM EDT Office Visit General Internal Medicine [facility] [address] [facility] [place] [address] Leyda Ahn MD [address] [facility] [place] [address] 10/25/2024 2:30 PM EDT Office Visit Rheumatology [facility] [address] [place] [phone] Jose Manuel Thurston CRNP [facility] [facility] [place], [place] [address] 11/21/2024 1:00 PM EDT Imaging Radiology [facility] [address] [place] [phone] 11/29/2024 8:30 AM EDT Office Visit Cardiology, [facility] [address] [place] [address] Ritu Vasquez PA-C [address] [place] [phone] Pending Results Name Type Priority Associated Diagnoses Date /Time TSH WITH FREE T4 IF INDICATED Lab Routine Acquired hypothyroidism 07/01/2024 1:52 PM EST VITAMIN B12 Lab Routine B12 deficiency 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) 07/01/2024 1:52 PM EST Scheduled Procedures Name Priority Associated [...] this encounter Medical Devices Implanted Type Area Fruit Loader Device Identifier Shelf Expiration Date Model / Serial / Lot Valve Ce Aortic 21mm [id number] - [id number] Implanted:Qty : 1 on 04/17/2010 at OR [facility] Tissue - Non Human N/A: Chest FRY Tego[employer]ish ELISABETH 04/17/2010 [id number] / Patch Pericard 8x14cm [id number] - [id number] Implanted:Qty : 1 on 04/17/2010 at OR [facility] Tissue - Non Human N/A: Chest [employer] 12/05/2014 -[id number] / / [id number] Sut [employer] 6 [id number] - [id number] Implanted:Qty : 4 on 04/17/2010 at OR [facility] N/A: Chest DO NOT USE 06/17/2014 [id number] / / [id number] documented as of this encounter Procedures Procedure Name Priority Date/Time Associated Diagnosis Comments DIFFERENTIAL, AUTOMATED STAT 07/01/2024 1:52 PM EST Thrombocytopenia (HCC) BILIRUBIN, DIRECT Routine 07/01/2024 1:5 2 PM EST Elevated LFTs COMPREHENSIVE METABOLIC PANEL STAT 07/01/2024 1:52 PM EST Thrombocytopenia (HCC) CBC STAT 07/01/2024 1:52 PM EST Thrombocytopenia (HCC) PT INR Routine 07/01/2024 1:52 PM EST Thrombocytopenia (HCC) Elevated bilirubin 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) CBC STAT 07/01/2024 1:52 PM EST Thrombocytopenia (HCC) documented in this encounter Results * (ABNORMAL) BILIRUBIN, DIRECT (07/01/2024 1:52 PM EST) Pathologist [facility] Bilirubin, Direct 0.5(H) 0.0 - 0.3 mg/dL 07/01/2024 2:26 PM EST [facility] 56-02 Blood Venous blood specimen / Unknown Venipuncture / Unknown 07/01/2024 1:52 PM EST 07/01/2024 1:52 PM EST us Maxwell Sellers MD LAB BLOOD ORDERABLES Fin al Result [facility] [address] [place] [address] * (ABNORMAL) DIFFERENTIAL, AUTOMATED (07/01/2024 1:52 PM EST) [facility] WBC 4.63 4.00 - 10.80 K/uL 07/01/2024 1:59 PM EST [facility] 56-02 Neutrophils % 58.6 40.0 - 75.0 % 07/01/2024 1:59 PM [facility] 56-02 Lymphocytes % 22.9 18.0 - 42.0 % 07/01/2024 1:59 PM EST [facility] 56-02 Monocytes % 15.3(H) 1.0 - 11.0 % 07/01/2024 1:59 PM EST [facility] 56-02 Eosinophils % 0.0 0.0 - 6.0 % 07/01/2024 1:59 PM EST [facility] 56-02 Basophils % 3.2(H) 0.0 - 2.0 % 07/01/2024 1:59 PM EST [facility] 56-02 Absolute Neutrophils 2.71 1.80 - 7.70 K/uL 07/01/2024 1:59 PM [facility] 56-02 Absolute Lymphocytes 1.06 1.00 - 4.80 K/ul 07/01/2024 1:59 PM EST [facility] 56-02 Absolute Monocytes 0.71 0.00 - 1.10 K/uL 07/01/2024 1:59 PM [facility] 56-02 Absolute Eosinophils 0.00 0.00 - 0.70 K/uL 07/01/2024 1:59 PM [facility] 56-02 Absolute Basophils 0.15 0.00 - 0.20 K/uL 07/01/2024 1:59 PM [facility] 56-02 Blood Venous blood specimen / Unknown Venipuncture / Unknown 07/01/2024 1:52 PM EST 07/01/2024 1:52 PM EST us Ghada TOLENTINO LAB BLOOD ORDERABLES Fi nal Result [facility] [address] [place] [address] * (ABNORMAL) CBC (07/01/2024 1:52 PM EST) WBC 4.63 4.00 - 10.80 K/uL 07/01/2024 1:59 PM [facility] 56 RBC 4.41 3.85 - 5.15 M/uL 07/01/2024 1:59 PM EST [facility] 56 HGB 13.9 12.0 - 15.3 g/dL 07/01/2024 1:59 PM EST [facility] 56 HCT 45.4(H) 36.0 - 45.2 % 07/01/2024 1:59 PM EST [facility] 56 MCV 102.9 81.5 - 97.5 fL 07/01/2024 1:59 PM EST [facility] 56 MCH 31.5 27.0 - 34.0 pg 07/01/2024 1:59 PM EST [facility] 56 MCHC 30.6 32.0 - 36.0 g/dL 07/01/2024 1:59 PM [facility] 56 RDW 16.3 11.5 - 15.5 % 07/01/2024 1:59 PM [facility] 56 PLT 125(L) 140 - 400 K/uL 07/01/2024 1:59 PM [facility] 56 MPV 9.7 6.6 - 11.1 fL 07/01/2024 1:59 PM [facility] 56 Blood Venous blood specimen / Unknown Venipuncture / Unknown 07/01/2024 1:52 PM EST 07/01/2024 1:52 PM EST us Ghada TOLENTINO LAB BLOOD ORDERABLES nal Result [facility] 56 [address] [place] [address] * (ABNORMAL) COMPREHENSIVE METABOLIC PANEL (07/01/2024 1:52 PM EST) BUN 26(H) 6 - 20 mg/dL 07/01/2024 2:26 PM [facility] 56 CREATININE 0.9 0.5 - 1.0 mg/dL 07/01/2024 2:26 PM [facility] 56 EGFR 66 >=60 mL/min 07/01/2024 2:26 PM [facility] 56 Comment:eGFR is calculated b ased on the CKD-EPI 2020 equation. SODIUM 138 135 - 146 mmol/L 07/01/2024 2:26 PM [facility] 56 POTASSIUM 6.1(H) 3.5 - 5.1 mmol/L 07/01/2024 2:26 PM [facility] 56 Comment:Result may be falsel y elevated due to hemolysis. CHLORIDE 99 98 - 107 mmol/L 07/01/2024 2:26 PM [facility] 56 CO2 27 22 - 32 mmol/L 07/01/2024 2:26 PM [facility] 56 ANION GAP 12 7 - 15 mmol/L 07/01/2024 2:26 PM [facility] 56 GLUCOSE 82 70 - 120 mg/dL 07/01/2024 2:26 PM [facility] 56 Albumin 4.0 3.8 - 5.0 g/dL 07/01/2024 2:26 PM [facility] 56 AST 64(H) 10 - 35 U/L 07/01/2024 2:26 PM [facility] 56 Comment:Result may be falsel y elevated due to hemolysis. Alkaline Phosphatase 99 35 - 130 U/L 07/01/2024 2:26 PM [facility] 56 Bilirubin, Total 2.7(H) <=1.2 mg/dL 07/01/2024 2:26 PM [facility] 56 CALCIUM 9.3 8.4 - 10.2 mg/dL 07/01/2024 2:26 PM [facility] 56 Protein 7.7 6.0 - 8.3 g/dL 07/01/2024 2:26 PM [facility] 56 ALT 9(L) 10 - 35 U/L 07/01/2024 2:26 PM [facility] 56 Blood Venous blood specimen / Unknown Venipuncture / Unknown 07/01/2024 1:52 PM EST 07/01/2024 1:52 PM EST us Ghada TOLENTINO LAB BLOOD ORDERABLES Fi nal Result [facility] [address] [place] [address] * (ABNORMAL) PT INR (07/01/2024 1:52 PM EST) Prothrombin Time 16.9(H) 11.6 - 15.2 seconds 07/01/2024 2:15 PM EST [facility] INR 1.4(H) 0.8 - 1.2 07/01/2024 2:15 PM EST [facility] Blood Venous blood specimen / Unknown Venipuncture / Unknown 07/01/2024 1:52 PM EST 07/01/2024 1:52 PM EST Narrative [facility] 56 - 07/01/2024 2:15 PM EST Warfarin Therapy INR: 2.0-3.0 conventional anticoagulation INR: 2.5-3.5 high intensity anticoagulation us Leyda Ahn MD LAB BLOOD ORDERABLES Final Resul t [facility] [address] [place] [address] documented in this encounter Visit Diagnoses Diagnosis Thrombocytopenia (HCC) Thrombocytopenia, unspecified Elevated bilirubin Jaundice, unspecified, not of 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) Acquired hypothyroidism Unspecified hypothyroidism Paroxysmal atrial fibrillation (HCC) Atrial fibrillation Paroxysmal atrial flutter (HCC) Atrial flutter Bilateral leg edema Edema Chronic diastolic heart failure due to valvular disease (HCC) Pulmonary hypertension (HCC) Other chronic pulmonary heart diseases B12 deficiency Other B-complex deficiencies Decreased platelet count (HCC) Thrombocytopenia, unspecified Elevated LFTs Other abnormal blood chemistry documented in this encounter Advance Directives Documents on File Type Date Recorded Patient Ed Tech Expl 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 Care Teams Retail Service Representative Relationship Specialty Start Date End Date Leyda Ahn MD [address] [place] [address] PCP - General Internal Medicine 02/02/24 documented as of this encounter
--- OUTSIDE RECORDS SUMMARY | 2024-08-27 10:59 | External Medical Summary | Summary of Care ---
Author Name Unknown Organization [facility] Address [address] [place] [address] Phone [phone] Care Team Providers Care Director Cardiac Name Role Phone Leyda Ahn MD Primary Care Provider [phone] Reason for Visit * Reason Onset Date Comments Hospital Follow-Up Hospital Follow-Up 05/16/2024 Encounter Details Date Type Department Care Team (Latest Contact Info) Description 05/16/2024 11:00 AM EST Office Visit General Internal Medicine Carmen Medina [place] [address] [facility] [place] [address] Adwoa Basilio MD 200 [facility] [place] [address] Ulcer of right lower extremity, unspecified ulcer stage (HCC)*; 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); Thrombocytopenia, congenital and hereditary (HCC); Chronic diastolic heart failure due to valvular disease (HCC); Hospital discharge follow-up; Stenosis of prosthetic aortic valve, sequela; Spinal stenosis of lumbar region without neurogenic claudication; Pulmonary hypertension (HCC); Paroxysmal atrial fibrillation (HCC); Idiopathic peripheral neuropathy; Crohn's disease of large intestine without complication (HCC); COPD, group B, by GOLD 2017 classification (HCC); Chondrosarcoma (HCC); B12 deficiency; Typical atrial flutter (HCC); Acquired hypothyroidism; Meningioma (HCC); Hemangioma of liver; Paroxysmal atrial flutter (HCC); History of transcatheter aortic valve replacement (TAVR); Bilateral leg edema Allergies Active Allergy Reactions Criticality Noted Date Comments Pantoprazole 01/29/2022 Itchiness, rash Penicillins Hives 01/13/2003 hives documented as of this encounter (statuses as of 05/16/2024) Medications Acetaminophen ER 650 MG Oral Tablet [...] 24 Active Clobetasol Propionate 0.05 % External SolutionIndicatio [...] 24 Active Gabapentin 100 MG Oral Capsule (Neurontin)Indica tions:Idiopathic peripheral neuropathy,Spinal stenosis of lumbar region without neurogenic claudication Take 1 tab daily, 2nd as needed per pt 04/1704/05/20 24 Active Cetirizine HCl 10 MG Oral Tablet (ZyrTEC Allergy)Indicatio ns:Chronic rhinitis Take 1 Tablet by mouth in the morning. 04/05/20 24 Active B-12 1000 MCG Oral TabletIndications :B12 deficiency 1 tab daily, start 04/05/2024 04/05/20 24 Active Levothyroxine Sodium 100 MCG Oral Tablet (Levoxyl)Indicati ons:Acquired hypothyroidism Take 1 Tablet by mouth in the morning. (at least 30 min prior to breakfast or other meds)--dec 02/03/2024, lab 10 wks. 90 Tablet 05/04/20 24 Active Hydrocortisone 2.5 % External CreamIndications: Eczematous skin lesions,Dry skin Apply topically to affected area 2 times a day. To affected area. On Rt upper back for 1 week or till better then as needed 30 g 1 05/11/20 24 Active Digoxin 125 MCG Oral Tablet (Lanoxin)Indicati ons:Paroxysmal atrial flutter (HCC) Take one 4 days per week 05/16/20 24 Active Furosemide 40 MG Oral Tablet (Lasix)Indication s:Stenosis of prosthetic aortic valve, sequela,Pulmonary hypertension (HCC),Paroxysmal atrial fibrillation (HCC),Paroxysmal atrial flutter (HCC),History of transcatheter aortic valve replacement (TAVR),Bilateral leg edema,Chronic diastolic heart failure due to valvular disease (HCC) 20 mg tue,nigel,Sat and Sun . Take an extra day if more leg swelling 05/16/20 24 Active Digoxin 125 MCG Oral Tablet (Lanoxin) Take one three days per week 36 Tablet 3 03/02/20 24 2023 Discontinued Furosemide 40 MG Oral Tablet (Lasix)Indication s:Paroxysmal atrial fibrillation (HCC),Paroxysmal atrial flutter (HCC),Stenosis of prosthetic aortic valve, sequela,History of transcatheter aortic valve replacement (TAVR),Bilateral leg edema,Chronic diastolic heart failure due to valvular disease (HCC),Pulmonary hypertension (HCC) 20 mg tue,nigel, day from 04/05/2024 1 Tablet 04/05/20 24 2023 Discontinued Hospital, Clinic, or Other Facility Administered Medication Ordered Dose Route Frequency Start Date End Date Status albuterol sulfate (PROVENTIL) (2.5 MG/3ML) 0.083% inhalation solution 2.5 mgIndications:COPD , severity to be determined (HCC),Chondrosarco ma (HCC),Pulmonary hypertension (HCC) 2.5 mg NEBULIZER PRN 01/07/2019 05/16/2024 Discon tinued documented as of this encounter (statuses as of 05/16/2024) Active Problems Problem Noted Date Diagnosed Date [...] as of this encounter (statuses as of 05/16/2024) Resolved Problems Problem Noted Date Diagnosed Date Resolved Date Permanent atrial fibrillation 03/28/2019 10/28/2021 Chronic systolic CHF (conges tive heart failure) 03/28/2019 01/03/2021 CHF with right heart failure 03/21/2019 03/12/2022 Atherosclerosis of aorta 11/16/2018 Carpal tunnel syndrome 03/28/201302/10 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 Henri[place] [facility] [place] asymptomatic en plaque cavernous sinus meningioma [...] well after 03/29 surgical repair LOC PRIM [id number] 05/09/2003 10/10/2016 Esotropia 01/13/2003 02/10/2017 Overview (01/13/2003): 11/24- R sixth nerve palsy- improving MRI/MRA negative Alopecia 01/13/2003 02/10/2017 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/2002 09/20/2018 Overview (06/16/2002): not bx proven DIVERTICULOSIS OF COLON 06/16/200202/22 Menopause 06/16/2002 10/23/2021 Abnormal weight gain 06/16/2002 017 documented as of this encounter (statuses as of 05/16/2024) Immunizations Name Administration Dates Next Due COVID-19 [...] Date 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 on file Not on file Not on file documented as of this encounter Last Filed Vital Signs Vital Sign Reading Time Taken Comments Blood Pressure 102/70 05/16/2024 11:02 AM EST Pulse 100 05/16/2024 11:02 AM EST Temperature 36.1 °C (97 °F) 05/16/2024 11: 02 AM EST Respiratory Rate 18 05/16/2024 11:0 2 AM EST Oxygen Saturation 95% 05/16/2024 11: 02 AM EST Inhaled Oxygen Concentration - - Weight 62.6 kg (137 lb 14.4 oz) 024 11:02 AM EST Height 170.2 cm (5' 7.01") 05/16/2024 1 1:02 AM EST Body Mass Index 21.59 05/16/2024 11:02 AM EST documented in this encounter Progress Notes * Adwoa Basilio MD - 05/16/2024 11:22 AM EST SUBJECTIVE: Nereida Stephen is a 84 year old female. Chief Complaint Patient presents with Hospital Follow-Up HPI: 84 year old YOfemale with PMH as listed below presents here for hospital follow up. Pt was seen by Dr. Sellers for a pin hole wound on the right leg which was bleeding, it was looked at in the clinic and had dressing done however it started to bleed and started pouring when she got home and she also had some chest tightness and shortness of breath so went to emergency for evaluation . Presented to hospital on 05/12/24 . She was found to have bleeding right like wound which was dressed with pressure bandage bleeding was controlled in the ER. She was then admitted for observation overnight for chest pain. No respiratory symptoms. Labs were overall stable except slightly troponin at 1st but then it was stable and did not progress with no acute change in EKG and Imaging chest x- ray without heart failure or pneumonia. Duplex was done that ruled out DVT. She was seen by Cardiology and metoprolol was increased from half to 1 tablet daily . Rest of the hospital course unremarkable . She was sent home on 05/13/24 on increase metoprolol dose and rest of the home medication with instruction to change dressing and covering with Optifoam every day until healed. Since discharge feeling better . Hospital records reviewed and updated. The patient's medication list was reviewed and updated as needed. Current issues now- -she has been having dizziness since home and blood pressure looks lot lower than baseline today. -swelling is overall better compared to 2 months ago when she was put on Lasix but it is only 20 mg3 days a week. Echo from 2022 reviewed she had severe tricuspid regurgitation with by atrium severedilatation and moderate pulmonary hypertension Patient Active Problem List Diagnosis Cervical spondylosis [...] better then as needed 25 mL 1 Digoxin 125 MCG Oral Tablet (Lanoxin) Take one three days per week 36 Tablet 3 Cetirizine HCl 10 MG Oral Tablet (ZyrTEC [...] better then as needed 30 g 1 Zoster Vac Recomb Adjuvanted 50 MCG/0.5ML Intramuscular Suspension Reconstituted (Shingrix) Inject 0.5 mL into a large muscle now and repeat dose in 60 to 180 days 1 Each 1 Gabapentin 100 MG Oral Capsule (Neurontin) Take 1 tab daily, 2nd as needed per pt 04/17 No current facility-administered medications for this visit. [...] performed by YOLIS CHEATHAM at [facility] [place] 02/26/2005 Colonoscopy done at [facility] by Dr. Hilliard COLONOSCOPY THRU STOMA, W/BIOPSY 02/2009 chronic colitis with moderate activity, sm bowel ileitis, f/u in office COLONOSCOPY W/ BIOPSY (RECTUM) 11/15/2007 bx's taken COLONOSCOPY W/ BIOPSY (RECTUM) 02/14/2011 inflammation in colon- await path COLONOSCOPY, DIAGNOSTIC (RECTUM) 09/12/2014 normal bx, repeat 2 yrs/COLONOSCOPY FLEXIBLE PROXIMAL DIAGNOSTIC performed by Eduar Beckham MD at ENDOSCOPY [facility] COLONOSCOPY, DIAGNOSTIC (RECTUM) 09/24/2018 diverticulosis, repeat 3 yrs / [facility] COLONOSCOPY, DIAGNOSTIC (RECTUM) 12/25/2021 chronic active colitis / INPT [facility] EGD, FLEXIBLE, DIAGNOSTIC 09/24/2018 gastritis / [facility] EGD, FLEXIBLE, DIAGNOSTIC 12/25/2021 sm hiatal hernia / INPT [facility] INFORMATION 04/17/2010 [employer] Aortic Valve Model# 3000TFX-21 MISCELLANEOUS ORDER ([facility] ONLY) 05/2104 Gamma Knife for meningioma at [facility] MISCELLANEOUS ORDER ([facility] ONLY) N/A 05/04/2017 redo of chest chondrosarcoma at [facility] NECK/CHEST DEEP TUMOR REMOVAL, UNDER 5 CM 04/17/2010 EXCISION TUMOR DEEP NECK THORAX performed by DEVORAH CARSON [place] [facility] NONE 07/2004 thyroidectomy in [place] PARTIAL COLECTOMY W/ANASTOMOSIS 10/2001 Colectomy Partial rectosigmoid resection with RUTH/BSO and incidental appy REMOVAL OF APPENDIX 10/2001 Appendectomy REMOVAL OF OVARY/OVIDUCT(S) 10/2001 Ovary/Tube(S) Removal REMOVAL OF THYROID GLAND 2004 Thyroidectomy REPAIR INITIAL INCISIONAL HERNIA 04/14/2005 [facility] Surgi-Center Dr. Hilliard REPAIR INITIAL INCISIONAL OR VENTRAL HERNIA; REDUCIBLE 01/08/2004 Lower abdominal hernia repair with mesh [facility] Surgi[facility] Dr. Hliliard REPLACE AORTIC VALVE, OPEN FEMORAL 2022 [facility] REPLACEMENT AORTIC VALVE, BYPASS WITH PROSTHETIC VALVE 04/17/2010 REPLACEMENT AORTIC VALVE performed by SAIDA PARKINSON at [facility] TOTAL HYSTERECTOMY 10/2001 RUTH (Total Abdominal Hysterectomy) Family History Problem Relation Name Age of Onset Heart Disorder Mother (dec) Lung Disorder Mother Heart Disorder Father (dec) Heart disease Brother Other (Paraplegia due to an accident) Brother Cancer Aunt (Unspecified) paternal;stomach Cancer Aunt (Unspecified) maternal half sister; breast Social History Socioeconomic History Marital status: Number of children: 3 Occupational History 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 Tobacco Use Smoking status: Former Current packs/day: [...] activity: Yes Partners: Male Other Topics Concern Blood Transfusions No Social History Narrative No pets No mold [...] (Medical): No Lack of Transportation (Non-Medical): No Family History Problem Relation Name Age of Onset Heart Disorder Mother (dec) Lung Disorder Mother Heart Disorder Father (dec) Heart disease Brother Other (Paraplegia due to an accident) Brother Cancer Aunt (Unspecified) paternal;stomach Cancer Aunt (Unspecified) maternal half sister; breast REVIEW OF SYSTEMS: All 10 systems reviewed and negative except mentioned in HPI OBJECTIVE: BP 102/70 | Pulse 100 | Temp 97 °F (36.1 °C) (Tympanic) | Resp 18 | Ht 5' 7.01" (1.702 m) | Wt 137 lb 14.4 oz (62.6 kg) | SpO2 95% | BMI 21.59 kg/m² | BSA 1.72 m² PHYSICAL EXAM: General: alert, healthy, and no distress Head: Normocephalic, No masses, lesions, tenderness or abnormalities Oropharynx: no exudate, no erythema, lips, buccal mucosa, and tongue normal, and mucous membranes are moist Neck: supple, no adenopathy, no bruits, thyroid normal size, non-tender, without nodularity Heart: regular rate & rhythm, irregularly irregular, and systolic murmur in pulmonary area Lungs: chest symmetric with normal AP diameter, no chest deformities noted, no chest wall tenderness, lungs clear to auscultation Abdomen: abdomen soft, non-tender, normal bowel sounds, and no masses or organomegaly Extremities: less than 2 second capillary refill, trace edema bilateral legs with changes of venousstasis dermatitis. 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) Doing well overall Thrombocytopenia, congenital and hereditary (HCC) Chronic diastolic heart failure due to valvular disease (HCC) - DISCH MED RECON CUR MED LIS Looks hypervolemic so would increase Lasix little bit and decrease metoprolol to half a tablet daily due to hypotension This will also help with her leg swelling and ulcer Hospital discharge follow-up - DISCH MED RECON CUR MED LIS Stenosis of prosthetic aortic valve, sequela Spinal stenosis of lumbar region without neurogenic claudication Pulmonary hypertension (HCC) As above Paroxysmal atrial fibrillation (HCC) Decrease metoprolol to half tablet daily and increase digoxin to 4 days a week Idiopathic peripheral neuropathy Crohn's disease of large intestine without complication (HCC) COPD, group B, 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 Treatment and plan was discussed with patient and was given opportunity to ask questions which wereanswered appropriately. Patient verbalizing understanding. This note was prepared with the help of fluency and if there is any mis-spelled words , sentences or something which doesn't represent the content of the subject that could be technical error and please refer to the author for clarification. Adwoa Basilio MD 11:22 AM 05/16/2024 documented in this encounter Nursing Notes * Kiarra Mahoney CMA - 05/16/2024 10:58 AM EST Pt here for a hospital follow up. No changes since DC documented in this encounter Plan of Treatment Upcoming Encounters Date Type Department Care Team (Late st Contact Info) Description 05/26/2024 10:20 AM EST Office Visit Rheumatology [place] [address] [facility] [place] [address] Jose Johnston MD [address] [place] [address] [place] [address] 05/30/2024 10:30 AM EST Office Visit Cardiology, [facility] [address] [facility] [place] [address] Rajesh Jordan MD [address] [facility] [place] [address] 08/12/2024 1:00 PM EDT Office Visit General Internal Medicine [facility] [place] [address] [place] [address] Leyda Ahn MD [address] [place] [address] 08/17/2024 9:40 AM EDT Office Visit Gastroenterology, [facility] [address] [place] [address] Eduar Beckham MD [address] [place] [address] 10/20/2024 2:30 PM EDT Office Visit Hematology/Oncology [facility] [place] [address] [facility] [address] Ghada Whaley CRNP [address] [place] [address] Scheduled Procedures Name Priority [...] this encounter Medical Devices Implanted Type Area Supervisor Shuttle Veneering Device Identifier Shelf Expiration Date Model / Serial / Lot Valve Ce Aortic 21mm 3000tfx - [id number] Implanted:Qty : 1 on 04/17/2010 [place] [facility] Tissue - Non Human N/A: Chest [employer] ELISABETH 04/17/2010 3000TFX-[id number] / Patch Pericard 8x14cm [id number] - [id number] Implanted:Qty : 1 on 04/17/2010 at [place] [facility] Tissue - Non Human N/A: Chest [employer] 12/05/2014 [id number] / / [id number] Sut Steel 6 [id number] - [id number] Implanted:Qty : 4 on 04/17/2010 at [facility] N/A: Chest DO NOT USE 06/17/2014 [id number] / / [id number] documented as of this encounter Visit Diagnoses Diagnosis Ulcer of right lower extremity, unspecified ulcer stage (HCC)- Primary 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, 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 thrombocytopenic purpura Chronic diastolic heart failure due to valvular disease (HCC) Hospital discharge follow-up Other follow-up examination Stenosis of prosthetic aortic valve, sequela Spinal stenosis of lumbar region without neurogenic claudication Spinal stenosis, lumbar region, without neurogenic claudication Pulmonary hypertension (HCC) Other chronic pulmonary heart diseases Paroxysmal atrial fibrillation (HCC) Atrial fibrillation Idiopathic peripheral neuropathy Unspecified hereditary and idiopathic peripheral neuropathy Crohn's disease of large intestine without complication (HCC) Regional enteritis of large intestine COPD, group B, 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, site unspecified B12 deficiency Other B-complex deficiencies Typical atrial flutter (HCC) Atrial flutter Acquired hypothyroidism Unspecified hypothyroidism Meningioma (HCC) Benign neoplasm of cerebral meninges Hemangioma of liver Hemangioma of intra-abdominal structures Paroxysmal atrial flutter (HCC) Atrial flutter History of transcatheter aortic valve replacement (TAVR) Bilateral leg edema Edema documented in this encounter Advance Directives Documents on File Type Date Recorded Patient Clinical Laboratory Service Teacher Expl 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 Care Teams Director Cardiac Relationship Specialty Start Date End Date Leyda Ahn MD [address] [place] [address] PCP - General Internal Medicine 02/02/24 documented as of this encounter
--- OUTSIDE RECORDS SUMMARY | 2024-08-27 10:59 | External Medical Summary ---
Author Name Unknown Address Unknown Organization [id number]:[facility] - [address] [facility] [address] Laboratory Report Ordering Provider Test Date Status BREANNA CHISHOLM 07/01/2024 13:52:16 Final Observation Date Value Abnormality Reference (Units ) Status TSH 07/01/2024 13:52:16 0.76 0.27-4.20 (uIU/mL) Final Performing Location [facility] - [address] [facility] [address]
--- OUTSIDE RECORDS SUMMARY | 2024-08-27 10:59 | External Medical Summary ---
Author Name Unknown Address Unknown Organization K09:[facility] [address] [place] [address] Laboratory Report Ordering Provider Test Date Status YOLIS REDDING 07/01/2024 13:52:16 Final Observation Date Value Abnormality Reference (Units ) Status WBC, Total 07/01/2024 13:52:16 4.63 4.00-10.8 0 (K/uL) Final RBC 07/01/2024 13:52:16 4.41 3.85-5.15 (M/uL) Final Hemoglobin 07/01/2024 13:52:16 13.9 12.0-15.3 (g/dL) Final HCT 07/01/2024 13:52:16 45.4 Above high normal 36 .0-45.2 (%) Final MCV 07/01/2024 13:52:16 102.9 81.5-97.5 (fL) Final MCH 07/01/2024 13:52:16 31.5 27.0-34.0 (pg) Final MCHC 07/01/2024 13:52:16 30.6 32.0-36.0 (g/dL) Final RDW 07/01/2024 13:52:16 16.3 11.5-15.5 (%) Final Platelets 07/01/2024 13:52:16 125 Below low normal 140 -400 (K/uL) Final MPV 07/01/2024 13:52:16 9.7 6.6-11.1 ( fL) Final Performing Location [facility] [place] [address]
--- OUTSIDE RECORDS SUMMARY | 2024-08-27 10:59 | External Medical Summary | Summary of Care ---
Author Name Unknown Organization [facility] Address [address] [place] [facility] [place] [address] Phone [phone] Care Team Providers Care Community Health Nurse Name Role Phone Leyda Ahn MD Primary Care Provider [phone] Reason for Visit * Reason Onset Date Comments Test Results 05/31/2024 Encounter Details Date Type Department Care Team (Late st Contact Info) Description 05/31/2024 Telephone Cardiology, [facility] [address] [place] [address] Rajesh Jordan MD [address] [place] [address] Test Results Allergies Active Allergy Reactions Criticality [...] Take one 3 days per week Active documented as of this encounter (statuses [...] 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 [employer] Other*[id number] 04/08/2010 07/01/2016 Overview (04/30/2010): Study Titile: Genomics Markers for Patients with Cardiovascular Disease Project # [id number] PI: Aleisha Loredo MD Please call [phone] with study related questions AORTIC VALVE STENOSIS [...] well after 03/29 surgical repair LOC PRIM [id number] 05/09/2003 10/0 10/2016 Esotropia 01/13/2003 02/10/2017 Overview [...] CG/0.3 mL, 12 YRS AND ABOVE, IM ([facility]) 09/29/2023 COVID-19, mRNA, LNP-s, PF, B [...] 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 * Telephone Encounter - Sepideh Mantilla LPN - 05/31/2024 12:43 PM EST ----- Message from Rajesh Jordan MD sent at 05/31/2024 12:43 PM EST ----- Labs look good. Continue current therapies documented in this encounter Plan of Treatment Upcoming Encounters Date Type Department Care Team (Late st Contact Info) Description 08/12/2024 1:00 PM EDT Office Visit General Internal Medicine [facility] [address] [facility] [place] [address] Leyda Ahn MD [address] [place] [address] 08/17/2024 9:40 AM EDT Office Visit Gastroenterology, [facility] [address] [place] [address] Eduar Beckham MD [address] [place] [address] 10/20/2024 2:30 PM EDT Office Visit Hematology/Oncology [facility] [address] [facility] [place] [phone] Ghada Whaley CRNP [address] [place] [address] 10/25/2024 2:30 PM EDT Office Visit Rheumatology [address] [place] [address] Jose Manuel Thurston CRNP [facility] [place] [address] 11/21/2024 1:00 PM EDT Imaging Radiology [facility] [address] [place] [phone] 11/29/2024 8:30 AM EDT Office Visit Cardiology, [facility] [address] [place] [address] Ritu Vasquez PA-C [address] [place] [address] Scheduled Procedures Name Priority Associated Diagnoses Date/Ti [...] this encounter Medical Devices Implanted Type Area Grain Manager Device Identifier Shelf Expiration Date Model / Serial / Lot Valve Ce Aortic 21mm 3000tfx - [id number] Implanted:Qty : 1 on 04/17/2010 [place] [facility] [place] - Non Human N/A: Chest [employer] ELISABETH 04/17/2010 3000TFX-2 / [id number] / Patch Pericard 8x14cm [id number] - [id number] Implanted:Qty : 1 on 04/17/2010 [place] [facility] [place] - Non Human N/A: Chest [employer] 12/05/2014 [id number] / / [id number] Sut Steel 6 M654g - [id number] Implanted:Qty : 4 on 04/17/2010 at [place] [facility] [place] N/A: Chest DO NOT USE 06/17/2014 [id number] / / [id number] documented as of this encounter Advance Directives Documents on File Type Date Recorded Patient Bilingual Student Tutor Expl 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 Care Teams Community Health Nurse Relationship Specialty Start Date End Date Leyda Ahn MD [address] [place] [address] PCP - General Internal Medicine 02/02/24 documented as of this encounter
--- OUTSIDE RECORDS SUMMARY | 2024-08-27 10:59 | External Medical Summary ---
Author Name Unknown Address Unknown Organization K09:[facility] [place] [address] Laboratory Report Ordering Provider Test Date Status BREANNA CHISHOLM 07/01/2024 13:52:16 Final Warfarin Therapy
INR: 2 .0-3.0 conventional anticoagulation
INR: 2.5- 3.5 high intensity anticoagulation Observation Date Value Abnormality Reference (Units ) Status PT 07/01/2024 13:52:16 16.9 Above high normal 11 .6-15.2 (seconds) Final INR 07/01/2024 13:52:16 1.4 Above high normal 0. 8-1.2 Final Performing Location [facility] [place] [address]
--- OUTSIDE RECORDS SUMMARY | 2024-08-27 10:59 | External Medical Summary | Summary of Care ---
Author Name Unknown Organization [facility] Address [address] [facility] [address] Phone [phone] Care Team Providers Care Material Inspector Name Role Phone Leyda Ahn MD Primary Care Provider [phone] Reason for Visit * Reason Comments Follow Up Hospital Follow-Up Encounter Details Date Type Department Care Team (Late st Contact Info) Description 05/30/2024 10:30 AM EST Office Visit Cardiology, [facility] [address] [place] [address] Rajesh Jordan MD [address] [place] [address] Venous insufficiency*; COPD, mild (HCC); Paroxysmal atrial fibrillation (HCC) Allergies Active Allergy Reactions Criticality Noted Date Comments Pantoprazole 01/29/2022 Itchiness, rash Penicillins Hives 01/13/2003 hives documented as of this encounter (statuses as of 06/02/2024) Medications Acetaminophen ER 650 MG Oral Tablet Extended Release 2 pill daily in AM & 2 pills in afternoon if needed 015 Active oxygen IN GAS 2L/min(Oxygen ) continuous via nasal cannula. 1 Each 023 Active Mesalamine 1.2 GM Oral Tablet Delayed Release (Lialda) TAKE 2 TABLETS BY MOUTH EVERY MORNING 180 Tablet 3 024 Active Clobetasol Propionate 0.05 % External SolutionIndicatio ns:Pruritic dermatosis of scalp,Scalp itch Apply topically to affected area 2 times a day. On scalp , use till better then as needed 25 mL 1 Active Zoster Vac Recomb Adjuvanted 50 MCG/0.5ML Intramuscular Suspension Reconstituted (Shingrix)Indicat ions:Need for shingles vaccine Inject 0.5 mL into a large muscle now and repeat dose in 60 to 180 days 1 Each 1 Active Gabapentin 100 MG Oral Capsule (Neurontin)Indica tions:Idiopathic peripheral neuropathy,Spinal stenosis of lumbar region without neurogenic claudication Take 1 tab daily, 2nd as needed per pt 04/17 Active Cetirizine HCl 10 MG Oral Tablet (ZyrTEC Allergy)Indicatio ns:Chronic rhinitis Take 1 Tablet by mouth in the morning. Active B-12 1000 MCG Oral TabletIndications :B12 deficiency 1 tab daily, start 04/05/2024 Active Levothyroxine Sodium 100 MCG Oral Tablet (Levoxyl)Indicati ons:Acquired hypothyroidism Take 1 Tablet by mouth in the morning. (at least 30 min prior to breakfast or other meds)--02/03/2024, lab 10 wks. 90 Tablet Active Hydrocortisone 2.5 % External CreamIndications: Eczematous skin lesions,Dry skin Apply topically to affected area 2 times a day. To affected area. On Rt upper back for 1 week or till better then as needed 30 g 1 Active Digoxin 125 MCG Oral Tablet (Lanoxin)Indicati ons:Paroxysmal atrial flutter (HCC) Take 1 Tablet by mouth once a day on Thursday, Thursday, and Thursday only. Take one 3 days per week Active Furosemide 40 MG Oral Tablet (Lasix)Indication s:Stenosis of prosthetic aortic valve, sequela,Pulmonary hypertension (HCC),Paroxysmal atrial fibrillation (HCC),Paroxysmal atrial flutter (HCC),History of transcatheter aortic valve replacement (TAVR),Bilateral leg edema,Chronic diastolic heart failure due to valvular disease (HCC) Take 1 Tablet by mouth. 40 mg tue,nigel,Sa. Take an extra day if more leg swelling 12/23/2 024 Active Albuterol Sulfate HFA 108 (90 [...] one 3 days per week 025 Active Albuterol Sulfate HFA 108 (90 Base) MCG/ACT Inhalation Aerosol SolutionIndicatio ns:COPD, mild (HCC) Inhale by mouth 2 Puffs every 4 hours as needed for Cough, Shortness of Breath or Wheezing. 20.1 g 3 022 2024 Discontinued(R efill) Aspirin 81 MG Oral Tablet Delayed Release Take 1 Tablet by mouth in the morning. 2024 Discontinued Metoprolol Succinate ER 25 MG Oral Tablet Extended Release 24 Hour (toPROL XL)Indications:Pa roxysmal atrial fibrillation (HCC) Take 0.5 Tablets by mouth daily. 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 [employer] Other*[id number] 04/08/2010 07/01/2016 Overview (04/30/2010): Study Titile: Genomics Markers for Patients with Cardiovascular Disease Project # [id number] PI: Aleisha Loredo MD Please call [phone] with study related questions AORTIC VALVE STENOSIS [...] well after 03/29 surgical repair LOC PRIM [id number] 05/09/2003 10/0 10/2016 Esotropia 01/13/2003 02/10/2017 Overview (01/13/2003): /- R sixth nerve palsy- improving MRI/MRA negative Alopecia 01/13/2003 02/10/2017 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/2002 09/20/2018 Overview (06/16/2002): not bx proven DIVERTICULOSIS OF COLON 06/16/200202/22 Menopause 06/16/2002 10/23/2021 Abnormal weight gain 06/16/2002 017 documented as of this encounter (statuses as of 06/02/2024) Immunizations Name Administration Dates Next Due COVID-19 [...] Date 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 Not on file Not on file Not on file documented as of this encounter Last Filed Vital Signs Vital Sign Reading Time Taken Comments Blood Pressure 122/54 05/30/2024 10:57 AM EST Pulse 128 05/30/2024 10:57 AM EST Temperature - - Respiratory Rate 16 05/30/2024 10:57 AM EST Oxygen Saturation - - Inhaled Oxygen Concentration - - Weight 62.6 kg (138 lb) 05/30/2024 10:57 AM EST Height - - Body Mass Index 21.61 05/16/2024 11:02 AM EST documented in this encounter Progress Notes * Rajesh Jordan MD - 05/30/2024 10:30 AM EST May 30, 2024 Cardiology Follow Up Referring Provider: PCP: [place] [address] [phone] Chief Complaint: Follow-up valvular disease, post hospital evaluation SUBJECTIVE: Nereida Stephen is an 84 year old year old female with ongoing cardiac issues 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 Patient underwent TAVR valve in valve 09/12/22 at [facility]. LV thrombus noted during case. Started onheparin and developed retroperitoneal bleed. IV heparin discontinued. LV thrombus was resolved on repeat echo and no anticoagulation therapy was given on discharge No coronary disease by preoperative cardiac catheterization, 2009. Repeat cardiac catheterization at [facility] showing mild luminal irregularities of the coronary [...] in close clinical follow-up. Patient accompanied by son who aids in history History of Present Illness The patient is an 84-year-old female who recently had an acute hospitalization due to a bleeding wound on her right lower extremity. During her hospital stay, she was noted to have an increased heartrate associated with chronic atrial fibrillation flutter, leading to slight adjustments in her medications. The patient reports that her leg wound seems to be healing well, with no further bleeding or significant swelling. She does note occasional dizziness, but it is unclear if this is related to her heart condition. The patient sleeps on her side at night and has oxygen at home, which she uses only when feeling short of breath. Her appetite is reported to be good. She is currently on furosemide, which was increased to 40mg three days a week during her hospital stay. She also takes metoprolol succinate 12.5 mg daily and digoxin three days a week. The patient has been experiencing some tightness or pressure in her chest, but it is unclear if this is related to her heart condition or another issue. She also uses an albuterol inhaler as needed, but does not notice a significant difference in her breathing after using it. The patient is planning to spend six weeks in a warmer climate, which she believes may benefit her overall health. She is scheduled for a follow-up appointment with PCP in July. A Complete Review of Systems is as [...] liver Osteopenia of necks of both femurs Review of patient's allergies indicates: Allergen Reactions [...] 1 Tablet by mouth in the morning. B-12 1000 MCG Oral Tablet 1 tab [...] better then as needed 30 g 1 Digoxin 125 MCG Oral Tablet (Lanoxin) Take one 4 days per week Furosemide 40 MG Oral Tablet (Lasix) 20 mg tue,nigel,Sat and Sun . Take an extra day if more leg swelling No current facility-administered medications for this visit. OBJECTIVE/PHYSICAL EXAMINATION: There were no vitals taken for this visit. General: Age appropriate female n no acute [...] normal exam Data: Echocardiogram November 11, 2023, [facility] Moderate left ventricular hypertrophy, EF 55 dash 60% Moderate left atrial and severe right atrial dilation Mild right ventricular dilation Normally functioning TAVR Moderate mitral insufficiency and severe tricuspid insufficiency Estimated systolic pulmonary pressure 40 mm Hg Not significantly changed from November 04, 2022 ASSESSMENT: 84 year old year old female With complex constellation of cardiac issues as above. Currently without physical findings of acute heart failure at risk for further right-sided heart failure abdominal distention and edema PLAN: Assessment & Plan Chronic Atrial Fibrillation/flutter Recent hospitalization due to leg wound with noted increased heart rate. Currently asymptomatic with no reported palpitations or chest tightness. -Increase Metoprolol Succinate to 25mg daily. -Continue Digoxin 3 days a week (Thursday, Thursday, Thursday). Will check digoxin level and BMP Chronic right heart failure with persistent stasis edema multifactorial Mixed valvular disease status post TAVR, severe tricuspid insufficiency Continue increase diuretic dosing at 40 mg furosemide daily. May consider addition of spironolactone depending on renal function and potassium levels. Past poor tolerance of Entresto including profound hypotension and hyperkalemia. Lower Extremity Wound Recent hospitalization due to bleeding. Currently healed with no further bleeding or significant swelling. -Continue current wound care regimen. General Health Maintenance -Order labs to check kidney function and Digoxin level. -Consider addition of Spironolactone for chronic leg swelling, pending lab results. -Refill Albuterol inhaler as needed. -Add Aspirin 3 days a week for cardiovascular protection. -Schedule follow-up appointment in 6 months, sooner if needed. DISPOSITION: Return 3 months Rajesh Jordan MD Cardiology, [address] [place] [address] I spent a total of 40-54 minutes (exact time 40 mins) on the date of service in preparation, delivery, and documentation of the care provided to Nereida Stephen excluding any time spent in the performance of separately billed services. documented in this encounter Nursing Notes * Dorita Marie LPN - 05/30/2024 10:57 AM EST Examination Room: 14 Name: Nereida Stephen Date of : 1940 Reason for Visit: Follow up Problems/Concerns: Denies cp since hospital d/c Interim Hosp(s): 05/13/24 Chest Pain/SOB: Denies today MyChart Discussed: ALREADY ACTIVE Patient was instructed [...] PM EDT Office Visit General Internal Medicine [address] [place] [address] Leyda Ahn MD [address] [place] [address] [place] [address] 08/17/2024 9:40 AM EDT Office Visit Gastroenterology, [facility] [address] [facility] [place] [address] Eduar Beckham MD [address] [facility] [place] [address] 10/20/2024 2:30 PM EDT Office Visit Hematology/Oncology [facility] [address] [place] [phone] Ghada Whaley CRNP [address] [place] [address] 10/25/2024 2:30 PM EDT Office Visit Rheumatology [facility] [address] [facility] [place] [address] Jose Manuel Thurston CRNP [address] [facility] [place] [address] 11/21/2024 1:00 PM EDT Imaging Radiology [facility] [address] [place] [phone] 11/29/2024 8:30 AM EDT Office Visit Cardiology, [facility] [address] [place] [address] Ritu Vasquez PA-C [address] [place] [address] Scheduled Procedures Name Priority Associated Diagnoses Date/Ti [...] Depression Screening 05/15/2024 05/15/2023 TSH 04/04/2025 04/04/2024, 0801/2024, 05/15/2023, Additional history exists O2 ASSESSMENT COMPLETED [...] this encounter Medical Devices Implanted Type Area Engineering Production Worker Device Identifier Shelf Expiration Date Model / Serial / Lot Valve Ce Aortic 21mm 3000tfx - [id number] Implanted:Qty : 1 on 04/17/2010 [place] [facility] [place] - Non Human N/A: Chest [employer] ELISABETH 04/17/2010 3000TFX-2 [id number] / Patch Pericard 8x14cm [id number] - [id number] Implanted:Qty : 1 on 04/17/2010 [place] [facility] [place] - Non Human N/A: Chest [employer] 12/05/2014 PC-0814N / / [id number] Sut Steel 6 M654g - [id number] Implanted:Qty : 4 on 04/17/2010 [place] [facility] [place]/A: Chest DO NOT USE 06/17/2014 [id number] / / [id number] documented as of this encounter Results * DIGOXIN LEVEL (05/30/2024 11:35 AM EST) Digoxin Level 0.5 0.5 - 1.1 ng/mL 05/30/2024 7:51 PM EST [facility] Blood Venous blood specimen / Unknown Venipuncture / Unknown 05/30/2024 11:35 AM EST 05/30/2024 11:35 AM EST Narrative [facility] - 05/30/2024 7:51 PM EST Recommended trough therapeutic ranges: 0.5 to 0.8 for heart failure 0.5 to 1.1 for atrial fibrillation us Rajesh Jordan MD LAB BLOOD ORDERABLES Final Re sult [facility] [address] [place] [address] * BASIC METABOLIC PANEL (05/30/2024 11:35 AM EST) BUN 16 6 - 20 mg/dL 05/30/2024 1:42 PM EST [facility] [place] [facility] CREATININE 0.7 0.5 - 1.0 mg/dL 05/30/2024 1:42 PM EST [facility] [place] [facility] EGFR 81 >=60 mL/min 05/30/2024 1:42 PM EST [facility] [place] [facility]10 Comment:eGFR is calculated b ased on the CKD-EPI 2020 equation. SODIUM 139 135 - 146 mmol/L 05/30/2024 1:42 PM EST [facility] [place] [facility] POTASSIUM 4.2 3.5 - 5.1 mmol/L 05/30/2024 1:42 PM EST [facility] [place] [facility] CHLORIDE 100 98 - 107 mmol/L 05/30/2024 1:42 PM EST [facility] [place] [facility] CO2 28 22 - 32 mmol/L 05/30/2024 1:42 PM EST [facility] [place] [facility] ANION GAP 11 7 - 15 mmol/L 05/30/2024 1:42 PM EST [facility] [place] [facility] GLUCOSE 77 70 - 120 mg/dL 05/30/2024 1:42 PM EST [facility] [place] [facility] CALCIUM 9.5 8.4 - 10.2 mg/dL 05/30/2024 1:42 PM EST [facility] [place] [place] [facility] Blood Venous blood specimen / Unknown Venipuncture / Unknown 05/30/2024 11:35 AM EST 05/30/2024 11:35 AM EST Rajesh Jordan MD LAB BLOOD ORDERABLES Final Re sult [facility] [place] [facility] [address] [facility] [place] [address] documented in this encounter Visit Diagnoses Diagnosis Venous insufficiency- Primary Unspecified venous (peripheral) insufficiency COPD, mild (HCC) Chronic airway obstruction, not elsewhere classified Paroxysmal atrial fibrillation (HCC) Atrial fibrillation documented in this encounter Advance Directives Documents on File Type Date Recorded Patient 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 Care Teams Material Inspector Relationship Specialty Start Date End Date Leyda Ahn MD [address] [facility] [place] [address] PCP - General Internal Medicine 02/02/24 documented as of this encounter
--- OUTSIDE RECORDS SUMMARY | 2024-08-27 10:59 | External Medical Summary ---
Author Name Unknown Address Unknown Organization K01:[facility] [place] [address] [facility] [address] Laboratory Report Ordering Provider Test Date Status LOBITO PARRA 05/30/2024 11:35:22 Final Recommended trough therapeut ic ranges:
0.5 to 0.8 for heart failure
0.5 to 1.1 for atrial fibrillation Observation Date Value Abnormality Reference (Units ) Status Digoxin 05/30/2024 11:35:22 0.5 0.5-1.1 (n g/mL) Final Performing Location [facility] [place] [address] [place] [address]
--- OUTSIDE RECORDS SUMMARY | 2024-08-27 10:59 | External Medical Summary ---
Author Name Unknown Address Unknown Organization K09:[facility] [place] [address] Laboratory Report Ordering Provider Test Date Status CASE WHITLOCK 07/01/2024 13:52:16 Final Observation Date Value Abnormality Reference (Units ) Status Bilirubin, Direct 07/01/2024 13:52:16 0.5 Above high normal 0.0-0.3 (mg/dL) Final Performing Location [facility] [place] [address]
--- OUTSIDE RECORDS SUMMARY | 2024-08-27 10:59 | External Medical Summary ---
Author Name Unknown Address Unknown Organization K09:[facility] [place] [facility] - [address] [place] [address] Laboratory Report Ordering Provider Test Date Status YOLIS REDDING 07/01/2024 13:52:16 Final Observation Date Value Abnormality Reference (Units ) Status BUN 07/01/2024 13:52:16 26 Above high normal 6-20 (mg/dL) Final Creatinine 07/01/2024 13:52:16 0.9 0.5-1.0 (mg/dL) Final Glomerular filtration rate/1.73 sq M.predicted [Volume Rate/Area] in Serum, Plasma or Blood by Creatinine-based formula (CKD-EPI) 07/01/2024 13:52:16 66 >=60 (mL/min) Final eGFR is calculated based on the CKD-EPI 2020 equation. Sodium 07/01/2024 13:52:16 138 135-146 (m mol/L) Final Potassium 07/01/2024 13:52:16 6.1 Above high normal 3. 5-5.1 (mmol/L) Final Result may be falsely elevat ed due to hemolysis. Cl 07/01/2024 13:52:16 99 98-107 (mm ol/L) Final CO2 07/01/2024 13:52:16 27 22-32 (mmo l/L) Final Anion gap 07/01/2024 13:52:16 12 7-15 (mmol /L) Final Glucose 07/01/2024 13:52:16 82 70-120 (mg /dL) Final Albumin 07/01/2024 13:52:16 4.0 3.8-5.0 (g /dL) Final AST (Aspartate aminotransferase) 07/01/2024 13:52:16 64 Above high normal 10-35 (U/L) Final Result may be falsely elevat ed due to hemolysis. Alk Phos 07/01/2024 13:52:16 99 35-130 (U/ L) Final Bilirubin, Total 07/01/2024 13:52:16 2.7 Above high no rmal <=1.2 (mg/dL) Final Calcium 07/01/2024 13:52:16 9.3 8.4-10.2 ( mg/dL) Final Protein 07/01/2024 13:52:16 7.7 6.0-8.3 (g /dL) Final ALT (Alanine aminotransferase) 07/01/2024 13:52:16 9 Below low normal 10-35 (U/L) Final Performing Location [facility] [place] [address] [place] [address]
--- OUTSIDE RECORDS SUMMARY | 2024-08-27 10:59 | External Medical Summary | Summary of Care ---
Author Name Unknown Organization [facility] Address [address] [place] [address] Phone [phone] Care Team Providers Care Liquor Maker Name Role Phone Leyda Ahn MD Primary Care Provider [phone] Reason for Visit * Reason Comments Acute Itch Encounter Details Date Type Department Care Team (Latest Contact Info) Description 05/11/2024 10:40 AM EST Office Visit General Internal Medicine [facility] [place] [address] [place] [address] Adwoa Basilio MD [address] [place] [address] Dry skin*; Eczematous skin lesions; Pulmonary hypertension (HCC); Paroxysmal atrial fibrillation (HCC); Chronic rhinitis; COPD, group B, by GOLD 2017 classification ([facility]) Allergies Active Allergy Reactions Criticality Noted Date Comments Pantoprazole 01/29/2022 Itchiness, rash Penicillins Hives 01/13/2003 hives documented as of this encounter (statuses as of 05/20/2024) Medications Acetaminophen ER 650 MG Oral Tablet [...] as needed 25 mL 1 024 Active Zoster Vac Recomb Adjuvanted 50 MCG/0.5ML Intramuscular Suspension Reconstituted (Shingrix)Indicat ions:Need for shingles vaccine Inject 0.5 mL into a large muscle now and repeat dose in 60 to 180 days 1 Each 1 024 Active Gabapentin 100 MG Oral Capsule (Neurontin)Indica [...] 02/03/2024, lab 10 wks. 90 Tablet Active Hydrocortisone 2.5 % External CreamIndications: Eczematous skin lesions,Dry skin Apply topically to affected area 2 times a day. To affected area. On Rt upper back for 1 week or till better then as needed 30 g 1 024 Active Hydrocortisone 2.5 % External CreamIndications: Eczematous skin lesions,Dry skin Apply topically to affected area 2 times a day. To affected area. On Rt upper back till better then as needed 30 g 024 2023 Discontinued(R efill) Digoxin 125 MCG Oral Tablet (Lanoxin) Take one three days per week 36 Tablet 3 024 2023 Discontinued Furosemide 40 MG Oral Tablet (Lasix)Indication s:Paroxysmal atrial fibrillation (HCC),Paroxysmal atrial flutter (HCC),Stenosis of prosthetic aortic valve, sequela,History of transcatheter aortic valve replacement (TAVR),Bilateral leg edema,Chronic diastolic heart failure due to valvular disease (HCC),Pulmonary hypertension (HCC) 20 mg thu,thu, from 04/05/2024 1 Tablet 024 2023 Discontinued Hospital, Clinic, or Other Facility Administered Medication Ordered Dose Route Frequency Start Date End Date Status albuterol sulfate (PROVENTIL) (2.5 MG/3ML) 0.083% inhalation solution 2.5 mgIndications:COPD , severity to be determined (HCC),Chondrosarco ma (HCC),Pulmonary hypertension (HCC) 2.5 mg NEBULIZER PRN 01/07/2019 05/16/2024 Discon tinued documented as of this encounter (statuses as of 05/20/2024) Active Problems Problem Noted Date Diagnosed Date [...] as of this encounter (statuses as of 05/20/2024) Resolved Problems Problem Noted Date Diagnosed Date Resolved Date Permanent atrial fibrillation 03/28/2019 10/28/2021 Chronic systolic CHF (conges tive heart failure) 03/28/2019 01/03/2021 CHF with right heart failure 03/21/2019 03/12/2022 Atherosclerosis of aorta 11/16/2018 Carpal tunnel syndrome 03/28/201302/10 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 [...] well after 03/29 surgical repair LOC PRIM [id number] 05/09/2003 1010/2016 Esotropia 01/13/2003 02/10/2017 Overview (01/13/2003): 11/24- R sixth nerve palsy- improving MRI/MRA negative Alopecia 01/13/2003 02/10/2017 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/2002 09/20/2018 Overview (06/16/2002): not bx proven DIVERTICULOSIS OF COLON 06/16/200202/22 Menopause 06/16/2002 10/23/2021 Abnormal weight gain 06/16/2002 017 documented as of this encounter (statuses as of 05/20/2024) Immunizations Name Administration Dates Next Due COVID-19 mRNA, LNP-s, No Pre serve, 2-Dose Series (Moderna) 08/30/2020,07/25/2020 COVID-19, MRNA-LNP, PF, 30 M CG/0.3 mL, 12 YRS AND ABOVE, IM ([employer]-Comirnat) 09/29/2023 COVID-19, mRNA, LNP-s, PF, B [...] 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 Not on file Not on file Not on file documented as of this encounter Last Filed Vital Signs Vital Sign Reading Time Taken Comments Blood Pressure 118/86 05/11/2024 10:40 AM EST Pulse 100 05/11/2024 10:40 AM EST Temperature 36.4 °C (97.5 °F) 05/11/2024 10:[address] Respiratory Rate 18 05/11/2024 10:40 AM EST Oxygen Saturation 98% 05/11/2024 10:40 AM EST Inhaled Oxygen Concentration - - Weight 63.2 kg (139 lb 4.8 oz) 05/11/2024 10:40 AM EST Height 170.2 cm (5' 7.01") 05/11/2024 10:[address] Body Mass Index 21.81 05/11/2024 10:40 AM EST documented in this encounter Progress Notes * Adwoa Basilio MD - 05/20/2024 4:47 PM EST Images from the original note were not included. History of Present Illness Nereida Stephen is a 84 year old female that presents for Acute and Itch 84 year old YOfemale with PMH as listed below presents here for evaluation of itching. Duration of illness: Few months Symptoms present : persistent itching on her back and it has been going on for a "long while". Pt has tried lotion to help with the symptoms without desired effects. Is very annoying and affecting him a day-to-day basis Symptoms not present: Obvious rash, fever chills, pain, tick bite, any bug bite or recent travel Have same similar thing in past : Not before a year to Since symptoms started things getting : Same Used anything for this illness: Different lotione Other concerns or issues present : No Physical Exam Vitals: 05/11/24 1040 Temp: 97.5 °F (36.4 °C) Pulse: 100 Resp: 18 SpO2: 98% BP: 118/86 BMI: 21.81 Physical Exam Constitutional: Appearance: Normal appearance. She is normal weight. Cardiovascular: Rate and Rhythm: Normal rate and regular rhythm. Pulmonary: Effort: No respiratory distress. Breath sounds: No wheezing. Musculoskeletal: General: No swelling or tenderness. Skin: Findings: No rash. Comments: Dry skin particularly more so on the back with scratch arabella but no obvious rash, flaking in some areas Neurological: Mental Status: She is alert. I have reviewed the following results: Assessment and Plan Dry skin Claritin or Zyrtec once a day Avoid using soap daily and prolonged hot shower Daily good emollient 1-2 times a day like Eucerin ,amlactin,neutrogena or petroleum jelly - Hydrocortisone 2.5 % External Cream; Apply topically to affected area 2 times a day. To affected area. On Rt upper back for 1 week or till better then as needed Eczematous skin lesions - Hydrocortisone 2.5 % External Cream; Apply topically to affected area 2 times a day. To affected area. On Rt upper back for 1 week or till better then as needed Pulmonary hypertension (HCC) Paroxysmal atrial fibrillation (HCC) Chronic rhinitis COPD, group B, by GOLD 2017 classification (HCC) Wrap-Up Time: I spent a total of 20-29 minutes (exact time 28 mins) on the date of service in preparation, delivery, and documentation of the care provided to Nereida Stephen excluding any time spent in the performance of separately billed services. documented in this encounter Nursing Notes * Kiarra Mahoney CMA - 05/11/2024 10:34 AM EST Pt here for persistent itching on her back and it has been going on for a "long while". Pt has tried lotion to help with the symptoms without desired effects documented in this encounter Plan of Treatment Upcoming Encounters Date Type Department Care Team (Late st Contact Info) Description 05/26/2024 10:20 AM EST Office Visit Rheumatology [facility] [address] [place] [address] Jose Johnston MD [address] [place] [address] 05/30/2024 10:30 AM EST Office Visit Cardiology, [facility] [address] [place] [address] Rajesh Jordan MD [address] [place] [address] 08/12/2024 1:00 PM EDT Office Visit General Internal Medicine [facility] [address] [facility] [place] [address] Leyda Ahn MD [address] [facility] [place] [address] 08/17/2024 9:40 AM EDT Office Visit Gastroenterology, [facility] [address] [place] [address] Eduar Beckham MD [address] [place] [address] 10/20/2024 2:30 PM EDT Office Visit Hematology/Oncology [facility] [address] [facility] [place] [phone] Ghada Whaley CRNP [address] [facility] [place] [address] Scheduled Procedures Name Priority Associated Diagnoses Date/Ti [...] this encounter Medical Devices Implanted Type Area Framing Mill Operator Helper Device Identifier Shelf Expiration Date Model / Serial / Lot Valve Ce Aortic 21mm 3000tfx - [id number] Implanted:Qty : 1 on 04/17/2010 at OR [facility] Tissue - Non Human N/A: Chest [employer] ELISABETH 04/17/2010 3000TFX-2 / [id number] / Patch Pericard 8x14cm [id number] - [id number] Implanted:Qty : 1 on 04/17/2010 at OR [facility] Tissue - Non Human N/A: Chest [employer] 12/05/2014 PC-0814N / / [id number] Sut Steel 6 M654g - [id number] Implanted:Qty : 4 on 04/17/2010 at OR [facility] N/A: Chest DO NOT USE 06/17/2014 [id number] / / [id number] documented as of this encounter Visit Diagnoses Diagnosis Dry skin- Primary Other specified disease of sebaceous glands Eczematous skin lesions Unspecified disorder of skin and subcutaneous tissue Pulmonary hypertension (HCC) Other chronic pulmonary heart diseases Paroxysmal atrial fibrillation (HCC) Atrial fibrillation Chronic rhinitis COPD, group B, by GOLD 2017 classification (HCC) documented in this encounter Advance Directives Documents on File Type Date Recorded Patient Tax Adjuster Expl 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 Care Teams Liquor Maker Relationship Specialty Start Date End Date Leyda Ahn MD [address] [facility] [place], [place] [address] PCP - General Internal Medicine 02/02/24 documented as of this encounter
--- OUTSIDE RECORDS SUMMARY | 2024-08-27 10:59 | External Medical Summary ---
Author Name Unknown Address Unknown Organization [id number]:[facility] [address] [place] [address] Laboratory Report Ordering Provider Test Date Status LOBITO PARRA 05/30/2024 11:35:22 Final Observation Date Value Abnormality Reference (Units ) Status BUN 05/30/2024 11:35:22 16 6-20 (mg/dL) Final Creatinine 05/30/2024 11:35:22 0.7 0.5-1.0 (mg/dL) Final Glomerular filtration rate/1.73 sq M.predicted [Volume Rate/Area] in Serum, Plasma or Blood by Creatinine-based formula (CKD-EPI) 05/30/2024 11:35:22 81 >=60 (mL/min) Final eGFR is calculated based on the CKD-EPI 2020 equation. Sodium 05/30/2024 11:35:22 139 135-146 (m mol/L) Final Potassium 05/30/2024 11:35:22 4.2 3.5-5.1 (m mol/L) Final Cl 05/30/2024 11:35:22 100 98-107 (mm ol/L) Final CO2 05/30/2024 11:35:22 28 22-32 (mmo l/L) Final Anion gap 05/30/2024 11:35:22 11 7-15 (mmol /L) Final Glucose 05/30/2024 11:35:22 77 70-120 (mg /dL) Final Calcium 05/30/2024 11:35:22 9.5 8.4-10.2 ( mg/dL) Final Performing Location [facility] [address] [place] [address]
--- OUTSIDE RECORDS SUMMARY | 2024-08-27 10:59 | External Medical Summary | Summary of Care ---
Author Name Unknown Organization [facility] Address [address] [place] [address] Phone [phone] Care Team Providers Care Sugar Drier Name Role Phone Leyda Ahn MD Primary Care Provider [phone] Reason for Visit * Reason Onset Date Comments Order Request 02/22/2024 Encounter Details Date Type Department Care Team (Late st Contact Info) Description 02/22/2024 Telephone General Internal Medicine [facility] [address] [place] [address] Leyda Ahn MD [address] [place] [address] Order Request Allergies Active Allergy Reactions Criticality Noted Date Comments Pantoprazole 01/29/2022 Itchiness, rash Penicillins Hives 01/13/2003 hives documented as of this encounter (statuses as of 05/23/2024) Medications Acetaminophen ER 650 MG Oral Tablet [...] 180 days 1 Each 1 024 Active oxygen GASIndications:No cturnal hypoxemia,COPD, mild [...] days. Take for 7 days. 14 Capsule 024 2023 Discontinued(E nd of Procedure) Levothyroxine Sodium 100 MCG Oral Tablet (Levoxyl)Indicati ons:Acquired hypothyroidism Take 1 Tablet by mouth in the morning. (at least 30 min prior to breakfast or other meds)--dec 02/03/2024, lab 10 wks. 30 Tablet 1 024 2023 Discontinued Hydrocortisone 2.5 % External CreamIndications: Eczematous skin lesions,Dry skin Apply topically to affected area 2 times a day. To affected area. On Rt upper back till better then as needed 30 g 024 2023 Discontinued(R efill) Hospital, Clinic, or Other Facility Administered Medication Ordered Dose Route Frequency Start Date End Date Status albuterol sulfate (PROVENTIL) (2.5 MG/3ML) 0.083% inhalation solution 2.5 mgIndications:COPD , severity to be determined (HCC),Chondrosarco ma (HCC),Pulmonary hypertension (HCC) 2.5 mg NEBULIZER PRN 01/07/2019 05/16/2024 Discon tinued vitamin b-12 (Cyanocobalamin) inj 1,000 mcgIndications:B12 deficiency 1000 mcg IM [id number] 04/19/2023 03/19/2024 Ended documented as of this encounter (statuses as of 05/23/2024) Active Problems Problem Noted Date Diagnosed Date [...] as of this encounter (statuses as of 05/23/2024) Resolved Problems Problem Noted Date Diagnosed Date Resolved Date Permanent atrial fibrillation 03/28/2019 10/28/2021 Chronic systolic CHF (conges tive heart failure) 03/28/2019 01/03/2021 CHF with right heart failure 03/21/2019 03/12/2022 Atherosclerosis of aorta 11/16/2018 Carpal tunnel syndrome 03/28/201302/10 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 [employer] Other*[id number] 04/08/2010 07/01/2016 Overview (04/30/2010): Study Titile: Genomics Markers for Patients with Cardiovascular Disease Project # [id number] PI: Aleisha Loredo MD Please call [phone] with study related questions AORTIC VALVE STENOSIS [...] well after 03/29 surgical repair LOC PRIM [id number] 05/09/2003 1010/2016 Esotropia 01/13/2003 02/10/2017 Overview (01/13/2003): /- R sixth nerve palsy- improving MRI/MRA negative Alopecia 01/13/2003 02/10/2017 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/2002 09/20/2018 Overview (06/16/2002): not bx proven DIVERTICULOSIS OF COLON 06/16/200202/22 Menopause 06/16/2002 10/23/2021 Abnormal weight gain 06/16/2002 017 documented as of this encounter (statuses as of 05/23/2024) Immunizations Name Administration Dates Next Due COVID-19 mRNA, LNP-s, No Pre serve, 2-Dose Series (Moderna) 08/30/2020,07/25/2020 COVID-19, MRNA-LNP, PF, 30 M CG/0.3 mL, 12 YRS AND ABOVE, IM ([email or web address]) 09/29/2023 COVID-19, mRNA, LNP-s, PF, B ooster, 100mcg/0.5mg (Moderna) 05/13/2021 Covid-19, Mrna, Lnp-s, Pf, B ivalent, 30 Mcg, IM, 12 yrs and above (Fon) 03/18/2022 PPD 09/27/2022,09/19/2022,02/14/2011 Pneumococcal Conjugate Vacc, 13 [...] 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 Please let them know and fax prior report. New Order placed --please let her know and schedule. * Telephone Encounter - Tiffanie Pedroza OSA - 02/22/2024 3:30 PM EDT An order was requested for this patient. Name of Requesting Provider: Olga Workman. Order Requested: Carotid ultrasound. Diagnosis/Reason for Request: Olga from [place] Work[place] states that would like the patient to have a carotid ultrasound. Olga states that had wanted the patient's primary doctor to order the testing. If order request is for Mammogram: Is the patient having any breast symptoms? N/A Is there a chance of ? N/A Has the patient had any breast problems in the past? NA What location AND department does the patient wish to have their order completed at? Fax Number, if applicable: If the caller is not a current patient, please advise the patient to call their current PCP to havethe order's prior to being seen in our office. The patient was informed that our providers would not order anything (medication, labs, etc.) prior to being seen. documented in this encounter Plan of Treatment Upcoming Encounters Date Type Department Care Team (Late st Contact Info) Description 05/26/2024 10:20 AM EST Office Visit Rheumatology [facility] [address] [facility] [place] [address] Jose Johnston MD [address] [employer] [place] [address] 05/30/2024 10:30 AM EST Office Visit Cardiology, [facility] [address] [facility] [place] [address] Rajesh Jordan MD [address] [facility] [place] [address] 08/12/2024 1:00 PM EDT Office Visit General Internal Medicine [facility] [address] [facility] [place], [place] [address] Leyda Ahn MD [address] [facility] [place] [address] 08/17/2024 9:40 AM EDT Office Visit Gastroenterology, [facility] [address] [place] [address] Eduar Beckham MD [address] [place] [address] 10/20/2024 2:30 PM EDT Office Visit Hematology/Oncology [facility] [address] [facility] [place] [phone] Ghada Whaley CRNP [address] [place] [address] [place] [address] Scheduled Procedures Name Priority Associated Diagnoses Date/Ti [...] this encounter Medical Devices Implanted Type Area Plant Cytologist Device Identifier Shelf Expiration Date Model / Serial / Lot Valve Ce Aortic 21mm 3000tfx - [id number] Implanted:Qty : 1 on 04/17/2010 at OR [facility] Tissue - Non Human N/A: Chest [employer] ELISABETH 04/17/2010 3000TFX-2 [id number] / Patch Pericard 8x14cm [id number] - [id number] Implanted:Qty : 1 on 04/17/2010 at OR [facility] Tissue - Non Human N/A: Chest [employer] 12/05/2014 PC-0814N / / [id number] Sut Steel 6 M654g - [id number] Implanted:Qty : 4 on 04/17/2010 at OR [facility] N/A: Chest DO NOT USE 06/17/2014 M654G / / [id number] documented as of this encounter Results * VASC DUPLEX CAROTID BILAT (04/04/2024 1:22 PM EST) Anatomical Region Laterality Modality Neck, Vascular Ultrasound Narrative 04/04/2024 1:33 PM EST VASCULAR LAB RESULTS DATE OF EXAM: 04/04/24 PRESENTING CONDITIONS: known carotid occlusion PHUC,left <50%, at request of opthalmologist This is an interpretation of an exam performed at [facility]. PHYSICIAN REPORT Carotid Artery Duplex Examination Immediately before proceeding with the vascular lab procedure reported below, the identity of the patient, the correct exam and the correct procedural site were verified. Humphrey scale and color flow Doppler imaging was performed for evaluation of the right carotid artery. Duplex examination of the right carotid artery identifies atherosclerotic plaque at the carotid bifurcation. The plaque is echogenic and appears to have an irregular surface. Duplex ultrasound was performed of the right carotid bifurcation demonstrating extensive plaque with no detectable Doppler flow in the right internal carotid artery . The right external carotid artery has a peak velocity of 53.8 centimeters per second. Humphrey scale and color flow Doppler imaging was performed for the evaluation of the left carotid artery. Duplex examination of the left carotid artery identifies atherosclerotic plaque at the carotid bifurcation. The plaque is echogenic and appears to have an irregular surface. Color Doppler imaging was performed for the evaluation of the left carotid bifurcation. Spectral analysis of the left internal carotid artery demonstrates peak systolic velocities of 62.6 cm/sec. Maximum end diastolic velocities are 27.8 cm/sec. Peak left common carotid velocity is 45.3 cm/sec. The left internal carotid to common carotid ratio is 1.4. The left external carotid artery has a peak velocity of 46.0 centimeters per second. The right vertebral artery demonstrates antegrade flow. The left vertebral artery demonstrates antegrade flow. Impression: Right carotid artery duplex examination indicates evidence of an occlusion of the internal carotid artery. Left carotid artery duplex examination indicates evidence of less than 50% stenosis of the internal carotid artery. us Leyda Ahn MD RAD VASCULAR Final Result documented in this encounter Visit Diagnoses Diagnosis Right internal carotid occlusion- Primary Occlusion and stenosis of carotid artery without mention of cerebral infarction Right internal carotid occlusion Occlusion and stenosis of carotid artery without mention of cerebral infarction documented in this encounter Advance Directives Documents on File Type Date Recorded Patient Bread Panner Expl 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 Care Teams Sugar Drier Relationship Specialty Start Date End Date Leyda Ahn MD [address] [place] [address], [place] [id number] PCP - General Internal Medicine 02/02/24 documented as of this encounter
--- OUTSIDE RECORDS SUMMARY | 2024-08-27 10:59 | External Medical Summary | Summary of Care ---
Author Name Unknown Organization [facility] Address [address] [place] [address] Phone [phone] Care Team Providers Care Administrator Name Role Phone Leyda Ahn MD Primary Care Provider [phone] Encounter Details Date Type Department Care Team (Late st Contact Info) Description 06/16/2024 Population Health External Data Unspecified Department Allergies Active Allergy Reactions Criticality Noted Date Comments Pantoprazole 01/29/2022 Itchiness, rash Penicillins Hives 01/13/2003 hives documented as of this encounter (statuses as of 06/16/2024) Medications Acetaminophen ER 650 MG Oral Tablet [...] as of this encounter (statuses as of 06/16/2024) Active Problems Problem Noted Date Diagnosed Date [...] as of this encounter (statuses as of 06/16/2024) Resolved Problems Problem Noted Date Diagnosed Date Resolved Date Permanent atrial fibrillation 03/28/2019 10/28/2021 Chronic systolic CHF (conges tive heart failure) 03/28/2019 01/03/2021 CHF with right heart failure 03/21/2019 03/12/2022 Atherosclerosis of aorta 11/16/2018 Carpal tunnel syndrome 03/28/201302/10 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 Henriquez [facility] N/S asymptomatic en [...] well after 03/29 surgical repair LOC PRIM BLEINOWT-I-XHL 05/09/2003 10/10/2016 Esotropia 01/13/2003 02/10/2017 Overview (01/13/2003): 7/03- R sixth nerve palsy- improving MRI/MRA negative Alopecia 01/13/2003 02/10/2017 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/2002 09/20/2018 Overview (06/16/2002): not bx proven DIVERTICULOSIS OF COLON 06/16/200202/22 Menopause 06/16/2002 10/23/2021 Abnormal weight gain 06/16/2002 017 documented as of this encounter (statuses as of 06/16/2024) Immunizations Name Administration Dates Next Due COVID-19 [...] Date 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 Not on file Not on file Not on file documented as of this encounter Plan of Treatment Upcoming Encounters Date Type Department Care Team (Late st Contact Info) Description 08/12/2024 1:00 PM EDT Office Visit General Internal Medicine [facility] [address] [place] [address] Leyda Ahn MD [address] [facility] [place] [address] 08/17/2024 9:40 AM EDT Office Visit Gastroenterology, [facility] [address] [address] Eduar Beckham MD [address] [address] 10/25/2024 2:30 PM EDT Office Visit Rheumatology [facility] [address] [phone] Jose Manuel Thurston CRNP [address] [facility] [place] [address] 11/21/2024 1:00 PM EDT Imaging Radiology [facility] [address] [place] [phone] 11/29/2024 8:30 AM EDT Office Visit Cardiology, [facility] [address] [place] [address] Ritu Vasquez, MANOLO [address] [place] [address] Scheduled Procedures Name Priority Associated Diagnoses Date/Ti [...] this encounter Medical Devices Implanted Type Area Casino Supervisor Device Identifier Shelf Expiration Date Model / Serial / Lot Valve Ce Aortic 21mm [id number] - [id number] Implanted:Qty : 1 on 04/17/2010 at OR [facility] Tissue - Non Human N/A: Chest [employer] 04/17/2010 [id number] / Patch Pericard 8x14cm [id number] - [id number] Implanted:Qty : 1 on 04/17/2010 at OR [facility] Tissue - Non Human N/A: Chest [employer] 12/05/2014 -[id number] / / [id number] Sut [employer] 6 [id number] - [id number] Implanted:Qty : 4 on 04/17/2010 at OR [facility] N/A: Chest DO NOT USE 06/17/2014 [id number] / / [id number] documented as of this encounter Advance Directives Documents on File Type Date Recorded Patient Nurses Educator Expl 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 Care Teams Administrator Relationship Specialty Start Date End Date Leyda Anh MD [address] [place], [place] [address] [address] PCP - General Internal Medicine 02/02/24 documented as of this encounter
--- NOTE | 2024-08-27 11:31 | Emergency Department Note ---
Impression & Plan Fall, CHI (closed head injury), Facial contusion, Traumatic periorbital ecchymosis, Traumatic subconjunctival hemorrhage of left eye ED Provider Note NAME: KARTHIK TATE AGE: 84 SEX: Female INFORMANT: Patient and family ED PROVIDER(S): Akil Fowler MD CHIEF COMPLAINT: Fall PLAN: Disposition: Admitted Outpatient prescription management: none Referral: None MEDICAL DECISION MAKING: Patient presented because of a fall. She actually had 2 falls in the last 48 hours. She suffered significant contusions of the face. CT imaging of the head, facial bones and cervical spine ordered. Chest x-ray ordered. ECG showed atrial fibrillation without ischemia. Patient did have some nausea. She was treated with IV Zofran and Tylenol. Blood work and urinalysis obtained. Patient myofiber cytopenia. Troponin was borderline but patient had no chest pain. Patient did have a fib on ECG. Chest x-ray does show effusions but no trauma. She underwent CT imaging and no acute fracture or intracranial bleeding noted. Patient underwent CT imaging of the chest and was found to have findings consistent with CHF with bilateral effusions. Patient's blood pressures were borderline but record review indicates that she frequently runs quite low. Given the multiple falls, imaging consistent with some volume overload, and the fact that she is so swollen from her contusions that she is having difficulty opening her eyes the patient requires further evaluation and management in the hospital. [facility] Patient was evaluated in the ER and admitted for further management. Care/management discussed with: field reimbursement manager Level of care consideration(s): After review of the information above and other included data, I feel the patient requires escalation of care to admission Triage Nursing notes: reviewed and agree them. Vital Signs: reviewed and remarkable for no significant abnormalities Additional History obtained from: Patient's family. Patient lives alone. Chronic Medical/Social Conditions affecting care: A flutter, advanced age Prior/ Outside/ External records reviewed: none Differential Diagnosis: Fracture, dislocation, contusion, intra-abdominal, pneumothorax, intrathoracic, intracranial, neurologic, electrolyte abnormality, UTI, cardiac sources, rhabdomyolysis, as well as other pathologies. Diagnostics, independently interpreted by me: ECG: Twelve-lead ECG reveals atrial fibrillation at 60. Low voltage QRS. Poor progression anterior. No ST elevation or T WI. Cardiac Monitoring: Cardiac monitoring ordered by me: The patient was placed on continuous cardiac monitoring and observed. It revealed atrial fibrillation at 66 bpm. Medical decision rules: none Imaging studies: Chest x-ray reveals bilateral pleural effusions. No pneumothorax. Head CT: A noncontrast CT scan of the head was performed and was negative for tumor, fracture, intracranial hemorrhage, or other acute pathology. I refer you to the EMR for further details. HPI: 84 year old Female arrives for evaluation of a fall. Family notes patient fell this morning but also had a fall 2 days ago. She tripped over her dog bed. Patient landed on her left side. She was developing bruising on the left side of her face. After the fall today she had bruising around the right eye. The patient also notes the following associated symptoms, mild nausea. The patient has taken no medication for relieving factors. Current pain is rated as 5/10. Patient does live alone. Family states that she was able to ambulate with assistance to get to their vehicle and come to the emergency department. Patient notes she is having difficulty keeping her eyes open due to swelling but denies any visual changes. Pt denies LOC, neck pain, chest pain, breathing difficulties, vomiting, abdominal pain, back pain, extremity pain, numbness, focal weakness, open wounds, active bleeding, or other complaints. PAST MEDICAL HISTORY: See Below, GI bleed, a flutter, hyponatremia PAST SURGICAL HISTORY: See Below, colon resection, sternal resection SOCIAL HISTORY: See Below, lives alone HOME MEDICATIONS: See Below ALLERGIES: See Below VITALS: See Below PHYSICAL EXAMINATION: GENERAL: Awake, tired-appearing, in no distress HENT: Normocephalic, scalp atraumatic. Oropharynx unremarkable. Mild dried blood at the right naris. No septal hematoma. Mild left-sided facial tenderness. Significant left facial contusions/ecchymosis present. EYES: Normal conjunctiva. Sclera non-icteric. Pupils equal round and reactive. No hyphema. Left subconjunctival hemorrhage present.raccoon eyes present. NECK: Inspection normal. Non-tender. Supple. No nuchal rigidity. FROM. No masses. RESPIRATORY: Clear to auscultation. No wheezes. No rales. Normal respiratory effort. CARDIAC: Normal rate. Normal rhythm. No murmurs. No rubs. Extremities warm and well perfused. Pulses equal. No JVD. GI: Soft, non-distended. No tenderness to palpation. No rebound or guarding. No masses. MUSCULOSKELETAL: Atraumatic. Chest examination reveals no tenderness. The back is symmetrical on inspection without obvious abnormality. There is no CVA tenderness to palpation. No joint edema. LOWER EXTREMITIES: Calves are equal size bilaterally and non-tender. 1-2+ edema. Chronic venous stasis discoloration. NEURO: Normal sensorium. No sensory or motor deficits noted. SKIN: Dry skin of the lower extremities. No rash or jaundice noted. PROCEDURES: none CRITICAL CARE: none OBSERVATION NOTE: none Past Med/Surg History Problem List (Updated 08/27/24 @ 11:31 by Akil Fowler MD) Traumatic subconjunctival hemorrhage of left eye (Acute) Traumatic periorbital ecchymosis (Acute) Facial contusion (Acute) CHI (closed head injury) (Acute) Fall (Acute) Leg pain (Acute) Elevated troponin (Acute) Leg wound, right Dizziness (Acute) Acute hypotension (Acute) Encounter for pre-operative examination Encounter for pre-operative examination Chondrosarcoma (Chronic Unknown) S/P resection Elevated LFTs (Acute) Ileitis (Acute) GI bleed (Acute) Atrial flutter (Chronic) Meningioma (Chronic) Diverticulitis (Chronic) Abdominal pain Elevated LFTs Encounter for pre-operative examination Stroke syndrome (Acute) Stenosis, cervical spine (Acute) Spinal stenosis of lumbar region (Acute) Memory loss (Acute) Lumbar radiculopathy (Acute) Migraine headache (Acute) Crohn's disease (Acute) Cervicalgia (Acute) Cervical radiculopathy (Acute) Carpal tunnel syndrome (Acute) Meningioma Cervicalgia Cervical spinal stenosis Cervical facet joint syndrome Cervical spondylosis Cervicogenic headache Dizziness (Acute) Acute hyponatremia (Acute) Headache (Acute) Weakness (Acute) History of meningioma (Acute) Hyponatremia History of atrial flutter Acute GI bleeding (Acute) Colitis (Acute) Right rib fracture (Acute) Lumbar transverse process fracture (Acute) Fall (Acute) Prosthetic aortic valve stenosis Rectal bleed Unexplained weight loss NSVT (nonsustained ventricular tachycardia) Ulcerative colitis (Chronic) S/P colon resection (Chronic) History of total hysterectomy (Chronic Unknown) "2001 " Intracranial meningioma (Chronic Unknown) PT STATES NO SURGERY Medical History GERD (gastroesophageal reflux disease) Hx of sarcoma of bone SURGERY ONLY Poor historian Acute on chronic diastolic heart failure due to valvular disease Carotid artery occlusion NO SURGERY ON CAROTID Crohns disease Spinal stenosis Osteoarthritis Cardiac murmur FOLLOWS WITH [facility] CARDS Hyperlipidemia Former smoker Surgical History H/O knee surgery LEFT History of colonoscopy History of tooth extraction History of tonsillectomy X 2 S/P aortic valve replacement 12+ YEARS AGO *[facility] "NEEDS REPAIRED" History of thoracic surgery SARCOMA REMOVED History of appendectomy Family History Mother Coronary heart disease Father Coronary heart disease Other No family history of adverse response to anesthesia Social History Smoking Status: Former smoker Tobacco Type: Cigarettes Second Hand Exposure: No; Do You Dip or Chew Tobacco: No; Hx Alcohol Use: Yes Alcohol type: beer Alcohol type Comment: 2 reagan lights a day Hx Substance Use: No Preferred Language: Maori Communication Ability: Effective Field Manager Required: No Beliefs That Will Affect Care: None Current Living Situation: Alone Current Living Situation Comment: Independent, still drives Feels Safe at Home: Yes Assistive Devices: None Allergies Allergies Allergy/AdvReac Type Severity Reaction Status Date / Time pantoprazole Allergy Intermediate ITCHY RASH Verified 08/27/24 12:57 Penicillins Allergy Intermediate HIVES Verified 08/27/24 12:57 Home Meds Home Medications Medication Instructions Recorded Confirmed acetaminophen 650 mg 2 tab PO BID PRN Pain 04/12/18 08/27/24 tablet,extended release (Tylenol Arthritis Pain) metoprolol succinate 25 mg 25 mg PO QAM 11/12/21 08/27/24 tablet,extended release 24 hr Oxygen Home 12/04/21 05/12/24 aspirin 81 mg tablet,delayed 81 mg PO UD 11/10/23 08/27/24 release cyanocobalamin (vitamin B-12) 1,000 mcg IM Q4WK 11/10/23 08/27/24 1,000 mcg/mL injection solution cetirizine 10 mg tablet (Zyrtec) 10 mg PO DAILY 05/12/24 08/27/24 ferrous sulfate 325 mg (65 mg 325 mg PO DAILY 05/12/24 08/27/24 iron) tablet (Iron (ferrous sulfate)) umeclidinium 62.5 mcg-vilanterol 1 inh inhalation QAM 05/12/24 08/27/24 25 mcg/actuation powdr for inhalation (Anoro Ellipta) vitamin B12 1,000 mcg-folic acid 1 tye sublingual DAILY 05/12/24 08/27/24 400 mcg sublingual lozenge digoxin 125 mcg (0.125 mg) tablet 125 mcg PO 3XWK 05/13/24 08/27/24 albuterol sulfate 90 mcg/actuation 2 puff inhalation Q4H PRN 08/27/24 08/27/24 aerosol inhaler Shortness Of Breath Or Wheezing furosemide 40 mg tablet 40 mg PO DAILY 08/27/24 08/27/24 gabapentin 100 mg capsule 100 mg PO DAILY 08/27/24 08/27/24 levothyroxine 100 mcg tablet 100 mcg PO DAILYBB 08/27/24 08/27/24 mesalamine 0.375 gram 1.5 g PO QAM 08/27/24 08/27/24 capsule,extended release 24 hr Results & Data (ED) Vital Signs Vital Signs - 24 hr 08/27/24 10:51 08/27/24 11:44 08/27/24 12:00 Temperature 36.6 C Temperature Source Temporal Artery Scan Pulse Rate 74 59 L Pulse Rate [Apical] 59 L Pulse Rate from SpO2 Sensor Respiratory Rate 18 19 22 Respiratory Effort / Characteristics Non-Labored Spontaneous Non-Labored Spontaneous Respiratory Depth Normal Normal Respiratory Pattern Regular Blood Pressure 137/75 Blood Pressure [Right Arm] 109/64 Blood Pressure Mean 95 Blood Pressure Mean [Right Arm] 79 Pulse Oximetry 96 96 96 Oxygen Delivery Method Room Air Room Air Room Air Sepsis Recent Fever Within 48 Hours No Sepsis New/Unexplained Change in Mental Status N/A Sepsis Action Taken by Nursing No Action Required 08/27/24 12:30 08/27/24 12:30 08/27/24 12:42 Temperature Temperature Source Pulse Rate 67 Pulse Rate [Apical] Pulse Rate from SpO2 Sensor Respiratory Rate Respiratory Effort / Characteristics Respiratory Depth Respiratory Pattern Blood Pressure 113/83 113/83 Blood Pressure [Right Arm] Blood Pressure Mean 91 91 Blood Pressure Mean [Right Arm] Pulse Oximetry Oxygen Delivery Method Sepsis Recent Fever Within 48 Hours Sepsis New/Unexplained Change in Mental Status Sepsis Action Taken by Nursing 08/27/24 12:54 08/27/24 13:12 08/27/24 14:00 Temperature Temperature Source Pulse Rate 80 66 66 Pulse Rate [Apical] Pulse Rate from SpO2 Sensor 75 61 66 Respiratory Rate 19 16 14 Respiratory Effort / Characteristics Respiratory Depth Respiratory Pattern Blood Pressure 113/83 92/61 L 88/55 L Blood Pressure [Right Arm] Blood Pressure Mean 93 71 66 Blood Pressure Mean [Right Arm] Pulse Oximetry 96 91 91 Oxygen Delivery Method Sepsis Recent Fever Within 48 Hours Sepsis New/Unexplained Change in Mental Status Sepsis Action Taken by Nursing Laboratory Data 08/27/24 11:46 08/27/24 11:46 Lab Results 08/27/24 08/27/24 08/27/24 Range/Units 11:46 13:30 14:11 WBC 4.21 L (4.8-10.8) K/ul RBC 4.21 (4.20-5.40) M/uL Hgb 13.3 (12.0-16.0) g/dl Hct 41.4 (37.0-47.0) % MCV 98.3 (80.0-100.0) fL MCH 31.6 (25.0-34.0) pg MCHC 32.1 (32.0-36.0) g/dL RDW Std Deviation 59.8 H (36.4-46.3) fL RDW Coeff of Brendon 16.6 H (11.5-14.5) % Plt Count 96 L (130-400) K/uL MPV 9.9 (9.4-12.4) fL Immature Gran % (Auto) 0.2 % Neut % (Auto) 63.9 % Lymph % (Auto) 21.4 % Schleicher % (Auto) 13.1 % Eos % (Auto) 0.2 % Baso % (Auto) 1.2 % Neut # (Auto) 2.69 (1.40-6.50) K/uL Lymph # (Auto) 0.90 L (1.20-3.40) K/uL Schleicher # (Auto) 0.55 (0.11-0.59) K/uL Eos # (Auto) 0.01 (0.00-0.50) K/uL Baso # (Auto) 0.05 (0.00-0.20) K/uL Immature Gran # (Auto) 0.01 (0.01-0.20) K/uL Sodium 136 (136-145) mmol/L Potassium 4.2 (3.5-5.1) mmol/L Chloride 98 (98-107) mmol/L Carbon Dioxide 36 H (21-32) mmol/L Anion Gap 2 L (3-11) BUN 29 H (6-23) mg/dl Creatinine 0.96 (0.6-1.2) mg/dl Est Cr Clr Drug Dosing Not Reportable eGFR 57.98 BUN/Creatinine Ratio 30.2 H (10-20) Glucose 88 (70-99(Fasting)) mg/dl Calcium 9.2 (8.6-10.3) mg/dl Magnesium 2.3 (1.7-2.4) mg/dl Total Bilirubin 2.7 H (0.2-1.0) mg/dl AST 31 (13-39) U/L ALT 9 (7-52) U/L Alkaline Phosphatase 71 (34-104) U/L Troponin I High Sens 76.9 H* 82.1 H* (0-14) pg/ml Total Protein 7.0 (6.0-8.3) gm/dl Albumin 3.8 (3.4-5.0) gm/dl Globulin 3.2 (2.5-4.0) gm/dl Albumin/Globulin Ratio 1.2 (0.9-2) TSH 1.155 (0.300-4.500) uIu/ml Urine Color Yellow Urine Appearance Clear (Clear) Urine pH 6.5 (4.5-7.5) Ur Specific Hartwick 1.012 (1.000-1.030) Urine Protein Negative (Negative) Urine Glucose (UA) Negative (Negative) Urine Ketones Negative (Negative) Urine Blood Negative (Negative) Urine Nitrite Negative (Negative) Urine Bilirubin Negative (Negative) Urine Urobilinogen Negative (Negative) Ur Leukocyte Esterase Negative (Negative) Administered Medications Discontinued Medications Furosemide (Furosemide Inj 20 Mg/2 Ml Vial) 20 mg IV ONE ONE Stop: 08/27/24 16:43 Last Admin: 08/27/24 17:17 Dose: Not Given Documented By: BS Acetaminophen (Ofirmev) 1,000 mg in 100 mls @ 400 mls/hr IV NOW STA Stop: 08/27/24 11:30 Last Infusion: 08/27/24 18:01 Dose: Infused Documented By: Admin: 08/27/24 12:35 Dose: 400 mls/hr Documented By: LIAM Ondansetron HCl (Ondansetron Inj 2 Mg/Ml 2 Ml Vial) 4 mg IV NOW STA Stop: 08/27/24 11:17 Last Admin: 08/27/24 12:35 Dose: 4 mg Documented By: LIAM Imaging Data Radiologist's Impression: Cervical Spine CT 08/27/24 11:16 CT cervical spine wo con CT DOSE: 1235.91 mGy.cm CLINICAL HISTORY: 84 years-old Female with fall, CHI. Acute neck injury status post fall COMPARISON: CT head and maxillofacial studies of same day, CT cervical spine 10/24/2020 TECHNIQUE: Multiple axial CT images of the cervical spine were obtained without contrast. A dose lowering technique was utilized adhering to the principles of ALARA. FINDINGS: Demineralized appearance of the bones. Straightening of the normal cervical lordosis. Moderate to severe degenerative changes of the cervical spine redemonstrated. No acute cervical spine fracture or subluxation is identified. Mildly progressive degenerative related erosive changes at C1-C2. The cervical soft tissues appear unremarkable. Layering left pleural effusion. No pneumothorax. Multinodular thyroid goiter redemonstrated. Atherosclerosis of the carotid bulbs, severe on the right. IMPRESSION: 1. No acute cervical spine fracture or subluxation identified. 2. Layering left pleural effusion. 3. Severe calcified plaque at the right carotid bulb. ACT 112: Negative or not required by law. The above report was generated using voice recognition software. It may contain grammatical, syntax or spelling errors. Electronically signed by: Cole Peguero M.D. 08/27/2024 12:50 PM Chest X-Ray 08/27/24 11:16 XR chest 1V portable HISTORY: 84 years-old Female weakness COMPARISON: 05/12/2024 TECHNIQUE: AP view the chest FINDINGS: Cardiac silhouette is enlarged. Median sternotomy with prosthetic aortic valve. Pulmonary vascular congestion with chronic interstitial coarsening. Linear atelectasis versus scarring in the midlung distributions bilaterally. Small pleural effusions with bibasilar opacities, left greater than right. Bones appear grossly intact. IMPRESSION: 1. Cardiomegaly with chronic interstitial coarsening. 2. Left greater than right small pleural effusions with bibasilar opacities favoring atelectasis. ACT 112: Negative or not required by law. The above report was generated using voice recognition software. It may contain grammatical, syntax or spelling errors. Electronically signed by: Cole Peguero M.D. 08/27/2024 12:[address] 08/27/24 11:16 CT facial bones wo con CLINICAL HISTORY: 84 years-old Female presenting with fall, CHI, sig L facial and periorbital swelling. COMPARISON STUDY: Head CT of same day TECHNIQUE: High-resolution CT scan of the facial bones is performed. Images are reviewed in the axial, sagittal, and coronal planes. IV contrast was not administered for this examination. A dose lowering technique was utilized adhering to the principles of ALARA. FINDINGS: Large left scalp, periorbital and facial contusions with small contusions on the right. Prior bilateral lens repair. Streak artifact from dental amalgam hardware. Severe calcified plaque of the right carotid bulb. Advanced changes of the cervical spine. Severe degeneration of the temporomandibular joints. Mastoid air cells and middle ear cavities are clear. Paranasal sinuses are also generally clear. No acute facial bone fracture is seen. IMPRESSION: 1. No acute facial bone fracture. 2. Large left scalp and facial contusions. ACT 112: Negative or not required by law. The above report was generated using voice recognition software. It may contain grammatical, syntax or spelling errors. Electronically signed by: Cole Peguero M.D. 08/27/2024 12:[address] 08/27/24 11:17 CT head/brain wo con CLINICAL HISTORY: 84 years-old Female with FALL, chi, sig L facial and periorbital swelling. Acute head trauma status post fall TECHNIQUE: Multiple axial CT images of the head were obtained without contrast. A dose lowering technique was utilized adhering to the principles of ALARA. COMPARISON: 11/10/2023 FINDINGS: No acute intracranial hemorrhage, midline shift, intracranial mass, hydrocephalus, territorial ischemia or abnormal extra-axial collection. Involutional changes with chronic microvascular ischemic disease. Study is mildly motion degraded. The calvarium is intact. There is a large contusion/hematoma the left frontal temporal scalp extending into the periorbital tissues and left cheek. Small right periorbital contusion. Bilateral prior lens repair The paranasal sinuses, mastoid air cells, and middle ear cavities are clear. IMPRESSION: 1. No acute intracranial abnormality or calvarial fracture. 2. Large scalp/facial contusions. ACT 112: Negative or not required by law. The above report was generated using voice recognition software. It may contain grammatical, syntax or spelling errors. Electronically signed by: Cole Peguero M.D. 08/27/2024 12:[address] 08/27/24 12:43 CT chest diagnostic wo con CT DOSE: 244.44 mGy.cm CLINICAL HISTORY: 84 years-old Female with fall, effusions on cxr. Acute chest trauma status post fall TECHNIQUE: Multiaxial CT images of the chest were performed without contrast. A dose lowering technique was utilized adhering to the principles of ALARA. COMPARISON: CT chest 11/10/2023 FINDINGS: Multinodular thyroid. Mildly enlarged left axillary and mediastinal lymph nodes measuring up to approximately 11 mm are unchanged. Marked cardiomegaly without pericardial effusion. Aortic valvular prosthesis. Moderate coronary artery calcifications. Median sternotomy. Probable pulmonary arterial hypertension. Soft tissue thickening posterior to the sternum, likely postoperative. Small right with moderate left pleural effusions. Intralobular septal thickening with bronchial wall thickening. Pulmonary emphysema. Minimal right basilar atelectasis. Left basilar consolidation, also likely atelectatic. Central airways are patent. Probable hepatic steatosis. Small amount of upper abdominal ascites. Anasarca. No acute fracture. IMPRESSION: 1. Cardiomegaly with mild interstitial pulmonary edema, small right and moderate left pleural effusions. 2. Left basilar predominant consolidation suggestive of probable atelectasis. 3. Anasarca with abdominal ascites. 4. No acute fracture or pneumothorax. 5. Unchanged mediastinal and left axillary lymphadenopathy. ACT 112: Negative or not required by law. Electronically signed by: Cole Peguero M.D. 08/27/2024 2:02 PM Discharge Plan Visit Data Chief Complaint: Fall Stated Complaint: FALL THURSDAY, FALL AGAIN THIS MORNING ED Provider: Akil Fowler Discharge Problem: Fall, CHI (closed head injury), Facial contusion, Traumatic periorbital ecchymosis, Traumatic subconjunctival hemorrhage of left eye
[2024-08-27 12:20] LABS: Basophils # (auto) 0.05 K/uL (0.00-0.20); Basophils % (auto) 1.2 %; Eosinophils # (auto) 0.01 K/uL (0.00-0.50); Eosinophils % (auto) 0.2 %; Hematocrit (blood only) 41.4 % (37.0-47.0); Hemoglobin 13.3 g/dl (12.0-16.0); Immature Granulocytes # (auto) 0.01 K/uL (0.01-0.20); Immature Granulocytes % (auto) 0.2 %; Lymphocytes % (auto) 21.4 %; Mean Corpuscular Hemoglobin 31.6 pg (25.0-34.0); Mean Corpuscular Hgb Conc 32.1 g/dL (32.0-36.0); Mean Corpuscular Volume 98.3 fL (80.0-100.0); Mean Platelet Volume 9.9 fL (9.4-12.4); Monocytes # (auto) 0.55 K/uL (0.11-0.59); Monocytes % (auto) 13.1 %; Neutrophils # (auto) 2.69 K/uL (1.40-6.50); Neutrophils % (auto) 63.9 %; Platelet Count 96 K/uL (130-400); RDW Coefficient of Variation 16.6 % (11.5-14.5); RDW Standard Deviation 59.8 fL (36.4-46.3); Red Blood Count 4.21 M/uL (4.20-5.40); White Blood Count 4.21 K/ul (4.8-10.8)
[2024-08-27 12:24] LABS: Alanine Aminotransferase 9 U/L (7-52); Albumin Globulin Ratio 1.2 (0.9-2); Albumin Level 3.8 gm/dl (3.4-5.0); Alkaline Phosphatase 71 U/L (34-104); Anion Gap 2 (3-11); Aspartate Aminotransferase 31 U/L (13-39); BUN Creatinine Ratio 30.2 (10-20); Bilirubin,Total 2.7 mg/dl (0.2-1.0); Blood Urea Nitrogen 29 mg/dl (6-23); Calcium 9.2 mg/dl (8.6-10.3); Carbon Dioxide 36 mmol/L (21-32); Chloride 98 mmol/L (98-107); Globulin 3.2 gm/dl (2.5-4.0); Glucose 88 mg/dl (70-99(Fasting)); Magnesium 2.3 mg/dl (1.7-2.4); Potassium 4.2 mmol/L (3.5-5.1); Sodium 136 mmol/L (136-145)
[2024-08-27] MEDS: ONDANSETRON INJ 2 MG/ML 2 ML VIAL IV STA (12:35)
[2024-08-27] MEDS: ACETAMINOPHEN 1,000 MG/100 ML VIAL IV STA (12:35)
[2024-08-27 12:39] LABS: Thyroid Stimulating Hormone 1.155 uIu/ml (0.300-4.500)
--- NOTE | 2024-08-27 12:39 | CT Scan Report ---
CT head/brain wo con CLINICAL HISTORY: 84 years-old Female with FALL, chi, sig L facial and periorbital swelling. Acute h ead trauma status post fall TECHNIQUE: Multiple axial CT images of the head were obtained without contrast. A dose lowering tech nique was utilized adhering to the principles of ALARA. COMPARISON: 11/10/2023 FINDINGS: No acute intracranial hemorrhage, midline shift, intracranial mass, hydrocephalus, territorial ischem ia or abnormal extra-axial collection. Involutional changes with chronic microvascular ischemic disea se. Study is mildly motion degraded. The calvarium is intact. There is a large contusion/hematoma the left frontal temporal scalp extendin g into the periorbital tissues and left cheek. Small right periorbital contusion. Bilateral prior ricky s repair The paranasal sinuses, mastoid air cells, and middle ear cavities are clear. IMPRESSION: 1. No acute intracranial abnormality or calvarial fracture. 2. Large scalp/facial contusions. ACT 112: Negative or not required by law. The above report was generated using voice recognition software. It may contain grammatical, syntax o r spelling errors. Electronically signed by: Cole Peguero M.D. 08/27/2024 12:37 PM
--- NOTE | 2024-08-27 12:41 | XRay Report ---
XR chest 1V portable HISTORY: 84 years-old Female weakness COMPARISON: 05/12/2024 TECHNIQUE: AP view the chest FINDINGS: Cardiac silhouette is enlarged. Median sternotomy with prosthetic aortic valve. Pulmonary vascular co ngestion with chronic interstitial coarsening. Linear atelectasis versus scarring in the midlung dist ributions bilaterally. Small pleural effusions with bibasilar opacities, left greater than right. Bon es appear grossly intact. IMPRESSION: 1. Cardiomegaly with chronic interstitial coarsening. 2. Left greater than right small pleural effusions with bibasilar opacities favoring atelectasis. ACT 112: Negative or not required by law. The above report was generated using voice recognition software. It may contain grammatical, syntax o r spelling errors. Electronically signed by: Cole Peguero M.D. 08/27/2024 12:40 PM
--- NOTE | 2024-08-27 12:52 | CT Scan Report ---
CT cervical spine wo con CT DOSE: 1235.91 mGy.cm CLINICAL HISTORY: 84 years-old Female with fall, CHI. Acute neck injury status post fall COMPARISON: CT head and maxillofacial studies of same day, CT cervical spine 10/24/2020 TECHNIQUE: Multiple axial CT images of the cervical spine were obtained without contrast. A dose low ering technique was utilized adhering to the principles of ALARA. FINDINGS: Demineralized appearance of the bones. Straightening of the normal cervical lordosis. Moder ate to severe degenerative changes of the cervical spine redemonstrated. No acute cervical spine frac ture or subluxation is identified. Mildly progressive degenerative related erosive changes at C1-C2. The cervical soft tissues appear unremarkable. Layering left pleural effusion. No pneumothorax. Mul tinodular thyroid goiter redemonstrated. Atherosclerosis of the carotid bulbs, severe on the right. IMPRESSION: 1. No acute cervical spine fracture or subluxation identified. 2. Layering left pleural effusion. 3. Severe calcified plaque at the right carotid bulb. ACT 112: Negative or not required by law. The above report was generated using voice recognition software. It may contain grammatical, syntax o r spelling errors. Electronically signed by: Cole Peguero M.D. 08/27/2024 12:50 PM
--- NOTE | 2024-08-27 12:54 | CT Scan Report ---
CT facial bones wo con CLINICAL HISTORY: 84 years-old Female presenting with fall, CHI, sig L facial and periorbital swellin g. COMPARISON STUDY: Head CT of same day TECHNIQUE: High-resolution CT scan of the facial bones is performed. Images are reviewed in the axia l, sagittal, and coronal planes. IV contrast was not administered for this examination. A dose lower ing technique was utilized adhering to the principles of ALARA. FINDINGS: Large left scalp, periorbital and facial contusions with small contusions on the right. Prior bilater al lens repair. Streak artifact from dental amalgam hardware. Severe calcified plaque of the right ca rotid bulb. Advanced changes of the cervical spine. Severe degeneration of the temporomandibular join ts. Mastoid air cells and middle ear cavities are clear. Paranasal sinuses are also generally clear. No acute facial bone fracture is seen. IMPRESSION: 1. No acute facial bone fracture. 2. Large left scalp and facial contusions. ACT 112: Negative or not required by law. The above report was generated using voice recognition software. It may contain grammatical, syntax o r spelling errors. Electronically signed by: Cole Peguero M.D. 08/27/2024 12:53 PM
[2024-08-27 13:56] LABS: Appearance Urine Clear (Clear); Bilirubin Urine Negative (Negative); Blood Urine Negative (Negative); Color Urine Yellow; Glucose Urine UA Negative (Negative); Ketones Urine Negative (Negative); Leukocyte Esterase Urine Negative (Negative); Nitrite Urine Negative (Negative); Protein Urine Negative (Negative); Specific Gravity Urine 1.012 (1.000-1.030); Urobilinogen Urine Negative (Negative); pH Urine 6.5 (4.5-7.5)
--- NOTE | 2024-08-27 14:04 | CT Scan Report ---
CT chest diagnostic wo con CT DOSE: 244.44 mGy.cm CLINICAL HISTORY: 84 years-old Female with fall, effusions on cxr. Acute chest trauma status post fa ll TECHNIQUE: Multiaxial CT images of the chest were performed without contrast. A dose lowering techni que was utilized adhering to the principles of ALARA. COMPARISON: CT chest 11/10/2023 FINDINGS: Multinodular thyroid. Mildly enlarged left axillary and mediastinal lymph nodes measuring u p to approximately 11 mm are unchanged. Marked cardiomegaly without pericardial effusion. Aortic valv ular prosthesis. Moderate coronary artery calcifications. Median sternotomy. Probable pulmonary arter ial hypertension. Soft tissue thickening posterior to the sternum, likely postoperative. Small right with moderate left pleural effusions. Intralobular septal thickening with bronchial wall thickening. Pulmonary emphysema. Minimal right basilar atelectasis. Left basilar consolidation, also likely atelectatic. Central airways are patent. Probable hepatic steatosis. Small amount of upper abd ominal ascites. Anasarca. No acute fracture. IMPRESSION: 1. Cardiomegaly with mild interstitial pulmonary edema, small right and moderate left pleural effusio ns. 2. Left basilar predominant consolidation suggestive of probable atelectasis. 3. Anasarca with abdominal ascites. 4. No acute fracture or pneumothorax. 5. Unchanged mediastinal and left axillary lymphadenopathy. ACT 112: Negative or not required by law. Electronically signed by: Cole Peguero M.D. 08/27/2024 2:02 PM
--- NOTE | 2024-08-27 14:22 | History & Physical Report ---
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 Fall Scalp and facial contusions Traumatic periorbital ecchymosis Left eye conjunctivitis Pt unsure of details Family notes that she has been having frequent falls, lives alone, unsure how long she was on the ground Pt with swollen and bruised eyelids On aspirin at home Head CT and Face CT noting large scalp and facial contusions but no acute fracture Cervical spine CT and chest CT without acute fracture/acute trauma signs CPK pending Hold home aspirin, on it 3x a week OMFS consult for contusions and impressive facial traumatic changes Erythromycin ointment to L eye PT/OT Acute on Chronic Congestive heart failure Acute on Chronic hypoxic respiratory failure Pt unsure if she has taken her daily diuretic States she uses oxygen at home, 2L nightly Chest XR concerning for Left greater than right small pleural effusions CT chest noting mild interstitial pulmonary edema, small right and moderate left pleural effusions. Repeat echo pending VBG ordered and pending BNP pending Pt currently hypotensive, will need very cautious diuretics Cardiology consulted, appreciate recs. -case discussed with Dr Greco who recommended midodrine with diuresis -midodrine 2.5mg TID ordered, titrate dose as needed -IV lAsix once BP improves -holding home lasix 40mg daily (dose was increased on 08/11/24) Pulmonology consulted for possible thoracentesis as well, appreciate recs Oxygen supplementation as needed Continue to monitor Atrial Fibrillation s/p TAVR Pt on metoprolol 25mg daily with digoxin 125mcg MWF Not on anticoagulation due multiple contraindications Ascites Pt with noted ascites on CT chest No known diagnosis of cirrhosis Consider dedicated imaging of the abdomen Diuresis as above Consider GI consult Chronic alcohol use Thrombocytopenia Frequent falls and pt with poor memory of what happened Alcohol level pending Thrombocytopenia chronic likely in the setting of chronic alcohol use AWSS at risk protocol Monitor for signs of withdrawal Elevated Troponin Trop elevated at 76.9 and 82.1, repeat pending EKG with known atrial fibrillation Repeat Echo pending Likely elevated in demand setting Multinodular Goiter Noted on imaging TSH normal Continue home levothyroxine Outpt followup Skin Wounds Pt with multiple scratches and skin wounds on lower extremities and face Notes dogs at home that scratch Wound care consult Hx of sternal chondrosarcoma s/p sternotomy Pt nots she was told she should not have CPR as a result of her sternotomy so she is a DNR However she would like defib if needed as well as intubation Continue other home meds as ordered Diet: HH DVT prophylaxis: SCDs in the setting of thrombocytopenia Dispo: admit to PCU/tele History of Present Illness Chief Complaint: Fall Primary Care Provider: Leyda Ahn MD Pt is an 84yoF with PMhx significant for chronic diastolic heart failure, valvular heart disease (mild to moderate MR, severe TR), pulmonary hypertension, PAF, bioprosthetic AVR stenosis status post surgery, PVD, COPD, RLS, Crohn's disease, meningioma status post gamma knife surgery, 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 History obtained from patient sitting at bedside. Patient is alert and oriented x 3 but seems confused while gathering the history and providing collaborating details. Family states [place] 3 days ago she tripped over her dog blanket. Patient states she keeps the dog blanket at the front of her bed and she had another fall again last night. They state she fell and could not get up. she kept yelling and someone working at the farm came to help her out. Patient is unclear as to exactly how she fell. She does have a history of chronic alcohol use. They note she has had recent eye surgery especially on the right side. She denies any new vision loss. States that she uses oxygen at nighttime at baseline but she was unsure of how much. The son-in-law confirms that it might be a few Liters at baseline. They also note that she has no sternum and that she was told that she can never have CPR. She is however agreeable to defibrillation if needed as well as intubation. States that she follows with Dr. Jordan as her certified orthotist practice manager and is unsure of whether or not she takes a diuretic. Patient notes that she frequently gets lower extremity edema and today her legs look much improved from baseline. She stated at the time of exam that she was feeling short of breath and that they were noting on the monitor that her oxygen saturations was decreasing to the 70s. better after placed on oxygen. Allergies Allergy/AdvReac Type Severity Reaction Status Date / Time pantoprazole Allergy Intermediate ITCHY RASH Verified 08/27/24 12:57 Penicillins Allergy Intermediate HIVES Verified 08/27/24 12:57 Home Medications Medication Instructions Recorded Confirmed Type acetaminophen 650 mg 2 tab PO BID PRN Pain 04/12/18 08/27/24 History tablet,extended release (Tylenol Arthritis Pain) metoprolol succinate 25 mg 25 mg PO QAM 11/12/21 08/27/24 History tablet,extended release 24 hr Oxygen Home 12/04/21 05/12/24 History aspirin 81 mg tablet,delayed 81 mg PO UD 11/10/23 08/27/24 History release cyanocobalamin (vitamin B-12) 1,000 mcg IM Q4WK 11/10/23 08/27/24 History 1,000 mcg/mL injection solution cetirizine 10 mg tablet (Zyrtec) 10 mg PO DAILY 05/12/24 08/27/24 History ferrous sulfate 325 mg (65 mg 325 mg PO DAILY 05/12/24 08/27/24 History iron) tablet (Iron (ferrous sulfate)) umeclidinium 62.5 mcg-vilanterol 1 inh inhalation QAM 05/12/24 08/27/24 History 25 mcg/actuation powdr for inhalation (Anoro Ellipta) vitamin B12 1,000 mcg-folic acid 1 tye sublingual DAILY 05/12/24 08/27/24 History 400 mcg sublingual lozenge digoxin 125 mcg (0.125 mg) tablet 125 mcg PO 3XWK 05/13/24 08/27/24 History albuterol sulfate 90 mcg/actuation 2 puff inhalation Q4H PRN 08/27/24 08/27/24 History aerosol inhaler Shortness Of Breath Or Wheezing furosemide 40 mg tablet 40 mg PO DAILY 08/27/24 08/27/24 History gabapentin 100 mg capsule 100 mg PO DAILY 08/27/24 08/27/24 History levothyroxine 100 mcg tablet 100 mcg PO DAILYBB 08/27/24 08/27/24 History mesalamine 0.375 gram 1.5 g PO QAM 08/27/24 08/27/24 History capsule,extended release 24 hr Past Med/Surg History Problem List (Updated 08/27/24 @ 11:31 by Akil Fowler MD) Traumatic subconjunctival hemorrhage of left eye (Acute) Traumatic periorbital ecchymosis (Acute) Facial contusion (Acute) CHI (closed head injury) (Acute) Fall (Acute) Leg pain (Acute) Elevated troponin (Acute) Leg wound, right Dizziness (Acute) Acute hypotension (Acute) Encounter for pre-operative examination Encounter for pre-operative examination Chondrosarcoma (Chronic Unknown) S/P resection Elevated LFTs (Acute) Ileitis (Acute) GI bleed (Acute) Atrial flutter (Chronic) Meningioma (Chronic) Diverticulitis (Chronic) Abdominal pain Elevated LFTs Encounter for pre-operative examination Stroke syndrome (Acute) Stenosis, cervical spine (Acute) Spinal stenosis of lumbar region (Acute) Memory loss (Acute) Lumbar radiculopathy (Acute) Migraine headache (Acute) Crohn's disease (Acute) Cervicalgia (Acute) Cervical radiculopathy (Acute) Carpal tunnel syndrome (Acute) Meningioma Cervicalgia Cervical spinal stenosis Cervical facet joint syndrome Cervical spondylosis Cervicogenic headache Dizziness (Acute) Acute hyponatremia (Acute) Headache (Acute) Weakness (Acute) History of meningioma (Acute) Hyponatremia History of atrial flutter Acute GI bleeding (Acute) Colitis (Acute) Right rib fracture (Acute) Lumbar transverse process fracture (Acute) Fall (Acute) Prosthetic aortic valve stenosis Rectal bleed Unexplained weight loss NSVT (nonsustained ventricular tachycardia) Ulcerative colitis (Chronic) S/P colon resection (Chronic) History of total hysterectomy (Chronic Unknown) "2001 " Intracranial meningioma (Chronic Unknown) PT STATES NO SURGERY Medical History GERD (gastroesophageal reflux disease) Hx of sarcoma of bone SURGERY ONLY Poor historian Acute on chronic diastolic heart failure due to valvular disease Carotid artery occlusion NO SURGERY ON CAROTID Crohns disease Spinal stenosis Osteoarthritis Cardiac murmur FOLLOWS WITH [facility] CARDS Hyperlipidemia Former smoker Surgical History H/O knee surgery LEFT History of colonoscopy History of tooth extraction History of tonsillectomy X 2 S/P aortic valve replacement 12+ YEARS AGO *[facility] "NEEDS REPAIRED" History of thoracic surgery SARCOMA REMOVED History of appendectomy Family History Mother Coronary heart disease Father Coronary heart disease Other No family history of adverse response to anesthesia Social History Smoking Status: Former smoker Tobacco Type: Cigarettes Second Hand Exposure: No; Do You Dip or Chew Tobacco: No; Hx Alcohol Use: Yes Alcohol type: beer Alcohol type Comment: 2 reagan lights a day Hx Substance Use: No Preferred Language: Macanese Communication Ability: Effective Channel Specialist Required: No Beliefs That Will Affect Care: None Current Living Situation: Alone Current Living Situation Comment: Independent, still drives Feels Safe at Home: Yes Assistive Devices: None Review of Systems Review of Systems: All systems reviewed & are unremarkable except as noted in Subjective Physical Exam Physical Exam: General: Alert, confused at times. No acute distress Skin: periorbital erythema and swelling, scratches in various stages of healing on face, lower extremities Psych: Alert, confused at times HEENT: periorbital erythema and swelling. Left eye with noted discharge CV: Irregular, murmur present Resp: Breath sounds decreased bilaterally, no increased effort of breathing Abdomen: Soft, distended Extremities: edema in the upper parts of her lower extremities bilaterally. Results & Data Results & Data Vital Signs (Past 12 Hours) Vital Signs Temp Pulse Pulse Resp BP BP Pulse Ox 08/27/24 12:42 67 08/27/24 12:00 59 L 22 109/64 96 08/27/24 11:44 59 L 19 96 08/27/24 10:51 36.6 C 74 18 137/75 96 O2 Del Method 08/27/24 12:42 08/27/24 12:00 Room Air 08/27/24 11:44 Room Air 08/27/24 10:51 Room Air Diagnostic Findings Cervical Spine CT 08/27/24 11:16 CT cervical spine wo con CT DOSE: 1235.91 mGy.cm CLINICAL HISTORY: 84 years-old Female with fall, CHI. Acute neck injury status post fall COMPARISON: CT head and maxillofacial studies of same day, CT cervical spine 10/24/2020 TECHNIQUE: Multiple axial CT images of the cervical spine were obtained without contrast. A dose lowering technique was utilized adhering to the principles of ALARA. FINDINGS: Demineralized appearance of the bones. Straightening of the normal cervical lordosis. Moderate to severe degenerative changes of the cervical spine redemonstrated. No acute cervical spine fracture or subluxation is identified. M ildly progressive degenerative related erosive changes at C1-C2. The cervical soft tissues appear unremarkable. Layering left pleural effusion. No pneumothorax. Multinodular thyroid goiter redemonstrated. Atherosclerosis of the carotid bulbs, severe on the right. IMPRESSION: 1. No acute cervical spine fracture or subluxation identified. 2. Layering left pleural effusion. 3. Severe calcified plaque at the right carotid bulb. ACT 112: Negative or not required by law. The above report was generated using voice recognition software. It may contain grammatical, syntax or spelling errors. Electronically signed by: Cole Peguero M.D. 08/27/2024 12:50 PM Chest X-Ray 08/27/24 11:16 XR chest 1V portable HISTORY: 84 years-old Female weakness COMPARISON: 05/12/2024 TECHNIQUE: AP view the chest FINDINGS: Cardiac silhouette is enlarged. Median sternotomy with prosthetic aortic valve. Pulmonary vascular congestion with chronic interstitial coarsening. Linear atelectasis versus scarring in the midlung distributions bilaterally. Small pleural effusions with bibasilar opacities, left greater than right. Bones appear grossly intact. IMPRESSION: 1. Cardiomegaly with chronic interstitial coarsening. 2. Left greater than right small pleural effusions with bibasilar opacities favoring atelectasis. ACT 112: Negative or not required by law. The above report was generated using voice recognition software. It may contain grammatical, syntax or spelling errors. Electronically signed by: Cole Peguero M.D. 08/27/2024 12:[address] 08/27/24 11:16 CT facial bones wo con CLINICAL HISTORY: 84 years-old Female presenting with fall, CHI, sig L facial and periorbital swelling. COMPARISON STUDY: Head CT of same day TECHNIQUE: High-resolution CT scan of the facial bones is performed. Images are reviewed in the axial, sagittal, and coronal planes. IV contrast was not administered for this examination. A dose lowering technique was utilized adhering to the principles of ALARA. FINDINGS: Large left scalp, periorbital and facial contusions with small contusions on the right. Prior bilateral lens repair. Streak artifact from dental amalgam hardware. Severe calcified plaque of the right carotid bulb. Advanced changes of the cervical spine. Severe degeneration of the temporomandibular joints. Mastoid air cells and middle ear cavities are clear. Paranasal sinuses are also generally clear. No acute facial bone fracture is seen. IMPRESSION: 1. No acute facial bone fracture. 2. Large left scalp and facial contusions. ACT 112: Negative or not required by law. The above report was generated using voice recognition software. It may contain grammatical, syntax or spelling errors. Electronically signed by: Cole Peguero M.D. 08/27/2024 12:[address] 08/27/24 11:17 CT head/brain wo con CLINICAL HISTORY: 84 years-old Female with FALL, chi, sig L facial and periorbital swelling. Acute head trauma status post fall TECHNIQUE: Multiple axial CT images of the head were obtained without contrast. A dose lowering technique was utilized adhering to the principles of ALARA. COMPARISON: 11/10/2023 FINDINGS: No acute intracranial hemorrhage, midline shift, intracranial mass, hydrocephalus, territorial ischemia or abnormal extra-axial collection. Involutional changes with chronic microvascular ischemic disease. Study is mildly motion degraded. The calvarium is intact. There is a large contusion/hematoma the left frontal temporal scalp extending into the periorbital tissues and left cheek. Small right periorbital contusion. Bilateral prior lens repair The paranasal sinuses, mastoid air cells, and middle ear cavities are clear. IMPRESSION: 1. No acute intracranial abnormality or calvarial fracture. 2. Large scalp/facial contusions. ACT 112: Negative or not required by law. The above report was generated using voice recognition software. It may contain grammatical, syntax or spelling errors. Electronically signed by: Cole Peguero M.D. 08/27/2024 12:[address] 08/27/24 12:43 CT chest diagnostic wo con CT DOSE: 244.44 mGy.cm CLINICAL HISTORY: 84 years-old Female with fall, effusions on cxr. Acute chest trauma status post fall TECHNIQUE: Multiaxial CT images of the chest were performed without contrast. A dose lowering technique was utilized adhering to the principles of ALARA. COMPARISON: CT chest 11/10/2023 FINDINGS: Multinodular thyroid. Mildly enlarged left axillary and mediastinal lymph nodes measuring up to approximately 11 mm are unchanged. Marked cardiomegaly without pericardial effusion. Aortic valvular prosthesis. Moderate coronary artery calcifications. Median sternotomy. Probable pulmonary arterial hypertension. Soft tissue thickening posterior to the sternum, likely postoperative. Small right with moderate left pleural effusions. Intralobular septal thickening with bronchial wall thickening. Pulmonary emphysema. Minimal right basilar atelectasis. Left basilar consolidation, also likely atelectatic. Central airways are patent. Probable hepatic steatosis. Small amount of upper abdominal ascites. Anasarca. No acute fracture. IMPRESSION: 1. Cardiomegaly with mild interstitial pulmonary edema, small right and moderate left pleural effusions. 2. Left basilar predominant consolidation suggestive of probable atelectasis. 3. Anasarca with abdominal ascites. 4. No acute fracture or pneumothorax. 5. Unchanged mediastinal and left axillary lymphadenopathy. ACT 112: Negative or not required by law. Electronically signed by: Cole Peguero M.D. 08/27/2024 2:02 PM
[2024-08-27 15:49] LABS: Troponin I High Sensitivity 76.9 pg/ml (0-14)
[2024-08-27] MEDS: FUROSEMIDE INJ 20 MG/2 ML VIAL IV ONE (17:17)
[2024-08-27 17:52] LABS: Base Excess VBG 6.4 mEq/L; HCO3 VBG 34 mmol/L; Oxygen Saturation VBG < 60.0 %; PCO2 VBG 58 mmHg (38-50); PO2 VBG 24 mmHg; pH VBG 7.37 (7.36-7.41)
[2024-08-27] MEDS ORDERED: ALBUTEROL HFA 8 GM INHALER INH PRN (17:59)
[2024-08-27] MEDS ORDERED: LORazepam 2 MG/1 ML VIAL IV PRN (17:59)
[2024-08-27 18:07] LABS: INR 1.3 (0.9-1.1); Prothrombin Time 13.9 Seconds (9.0-12.0)
[2024-08-27] MEDS: MIDODRINE HCL 2.5 MG TAB PO SCH (18:18)
[2024-08-27 18:40] LABS: Troponin I High Sensitivity 79.5 pg/ml (0-14)
[2024-08-27] MEDS: ERYTHROMYCIN OP OINT 5 MG/GM 3.5 GM TUBE OPL SCH (20:09)
[2024-08-28] MEDS: LEVOTHYROXINE SODIUM 100 MCG TABLET PO SCH (05:10)
[2024-08-28 07:03] LABS: Basophils # (auto) 0.04 K/uL (0.00-0.20); Basophils % (auto) 0.8 %; Eosinophils # (auto) 0.01 K/uL (0.00-0.50); Eosinophils % (auto) 0.2 %; Hematocrit (blood only) 40.7 % (37.0-47.0); Hemoglobin 12.8 g/dl (12.0-16.0); Immature Granulocytes # (auto) 0.02 K/uL (0.01-0.20); Immature Granulocytes % (auto) 0.4 %; Lymphocytes # (auto) 1.05 K/uL (1.20-3.40); Lymphocytes % (auto) 22.1 %; Mean Corpuscular Hemoglobin 31.6 pg (25.0-34.0); Mean Corpuscular Hgb Conc 31.4 g/dL (32.0-36.0); Mean Corpuscular Volume 100.5 fL (80.0-100.0); Mean Platelet Volume 10.5 fL (9.4-12.4); Monocytes # (auto) 0.53 K/uL (0.11-0.59); Monocytes % (auto) 11.1 %; Neutrophils # (auto) 3.11 K/uL (1.40-6.50); Neutrophils % (auto) 65.4 %; Platelet Count 105 K/uL (130-400); RDW Coefficient of Variation 16.4 % (11.5-14.5); RDW Standard Deviation 61.9 fL (36.4-46.3); Red Blood Count 4.05 M/uL (4.20-5.40); White Blood Count 4.76 K/ul (4.8-10.8)
[2024-08-28 07:22] LABS: Albumin Level 3.4 gm/dl (3.4-5.0); Anion Gap 5 (3-11); Calcium 9.1 mg/dl (8.6-10.3); Carbon Dioxide 33 mmol/L (21-32); Chloride 97 mmol/L (98-107); Magnesium 2.2 mg/dl (1.7-2.4); Sodium 135 mmol/L (136-145)
[2024-08-28 07:28] LABS: Alanine Aminotransferase 7 U/L (7-52); Alkaline Phosphatase 71 U/L (34-104); Aspartate Aminotransferase 34 U/L (13-39); BUN Creatinine Ratio 29.3 (10-20); Blood Urea Nitrogen 29 mg/dl (6-23); Globulin 3.3 gm/dl (2.5-4.0); Glucose 71 mg/dl (70-99(Fasting)); Total Protein 6.7 gm/dl (6.0-8.3)
--- NOTE | 2024-08-28 07:52 | Oral/Maxillofacial Consult ---
Date of Consultation August 28, 2024 Assessment & Plan (1) Traumatic periorbital ecchymosis: (2) Traumatic subconjunctival hemorrhage of left eye: (3) Facial contusion: (4) Fall: (5) Hematoma: History of Present Illness Attending Physician: Pari Goncalves MD History of Present Illness I was asked to evaluate the facial area associated with significant facial swelling from a recent fall. The CT does not show any fractures. All swelling is secondary to soft tissue edema from the trauma. I feel the primary impact area was the left forehead as there is a small hematoma that is resolving. It is this that is causing the edema and ecchymoses to the dependent areas of the eyes, and the left cheek and starting down the anterior neck and chin area. There is no hematoma that will require any drainage. Nereida has no issues with vision and she has good ROM. I told her this is self limiting and should resolve in a few weeks. No further follow up is needed. OK for discharge as per hospital medicine. 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 OMFS consult for contusions and impressive facial traumatic changes secondary to recent fall. Patient is alert and oriented x 3 Family states that [place] 3 days ago she tripped over her dog blanket. Patient states she keeps the dog blanket at the front of her bed and she had another fall again last night. They state she fell and could not get up. she kept yelling and someone working at the farm came to help her out. Patient is unclear as to exactly how she fell. She does have a history of chronic alcohol use. They note she has had recent eye surgery especially on the right side. She denies any new vision loss. States that she uses oxygen at nighttime at baseline but she was unsure of how much. The son-in-law confirms that it might be a few Liters at baseline. They also note that she has no sternum and that she was told that she can never have CPR. She is however agreeable to defibrillation if needed as well as intubation. 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 Patient notes that she frequently gets lower extremity edema and today her legs look much improved from baseline. She stated at the time of exam that she was feeling short of breath and that they were noting on the monitor that her oxygen saturations was decreasing to the 70s. better after placed on oxygen. CT scan impressions: Head CT and Face CT noting large scalp and facial contusions but no acute fracture Cervical spine CT and chest CT without acute fracture/acute trauma signs Past Medical History: Acute on Chronic Congestive heart failure Acute on Chronic hypoxic respiratory failure Atrial Fibrillation s/p TAVR Ascites Chronic alcohol use--AWSS at risk protocol Monitor for signs of withdrawal Thrombocytopenia--Thrombocytopenia chronic likely in the setting of chronic alcohol use Multinodular Goiter Skin Wounds--Pt with multiple scratches and skin wounds on lower extremities and face,Notes dogs at home that scratch Hx of sternal chondrosarcoma s/p sternotomy Allergies Allergy/AdvReac Type Severity Reaction Status Date / Time pantoprazole Allergy Intermediate ITCHY RASH Verified 08/27/24 12:57 Penicillins Allergy Intermediate HIVES Verified 08/27/24 12:57 Home Medications Medication Instructions Recorded Confirmed Type acetaminophen 650 mg 2 tab PO BID PRN Pain 04/12/18 08/27/24 History tablet,extended release (Tylenol Arthritis Pain) metoprolol succinate 25 mg 25 mg PO QAM 11/12/21 08/27/24 History tablet,extended release 24 hr Oxygen Home 12/04/21 05/12/24 History aspirin 81 mg tablet,delayed 81 mg PO UD 11/10/23 08/27/24 History release cyanocobalamin (vitamin B-12) 1,000 mcg IM Q4WK 11/10/23 08/27/24 History 1,000 mcg/mL injection solution cetirizine 10 mg tablet (Zyrtec) 10 mg PO DAILY 05/12/24 08/27/24 History ferrous sulfate 325 mg (65 mg 325 mg PO DAILY 05/12/24 08/27/24 History iron) tablet (Iron (ferrous sulfate)) umeclidinium 62.5 mcg-vilanterol 1 inh inhalation QAM 05/12/24 08/27/24 History 25 mcg/actuation powdr for inhalation (Anoro Ellipta) vitamin B12 1,000 mcg-folic acid 1 tye sublingual DAILY 05/12/24 08/27/24 History 400 mcg sublingual lozenge digoxin 125 mcg (0.125 mg) tablet 125 mcg PO 3XWK 05/13/24 08/27/24 History albuterol sulfate 90 mcg/actuation 2 puff inhalation Q4H PRN 08/27/24 08/27/24 History aerosol inhaler Shortness Of Breath Or Wheezing furosemide 40 mg tablet 40 mg PO DAILY 08/27/24 08/27/24 History gabapentin 100 mg capsule 100 mg PO DAILY 08/27/24 08/27/24 History levothyroxine 100 mcg tablet 100 mcg PO DAILYBB 08/27/24 08/27/24 History mesalamine 0.375 gram 1.5 g PO QAM 08/27/24 08/27/24 History capsule,extended release 24 hr Patient History Medical History GERD (gastroesophageal reflux disease) Hx of sarcoma of bone SURGERY ONLY Poor historian Acute on chronic diastolic heart failure due to valvular disease Carotid artery occlusion NO SURGERY ON CAROTID Crohns disease Spinal stenosis Osteoarthritis Cardiac murmur FOLLOWS WITH [facility] CARDS Hyperlipidemia Former smoker Surgical History H/O knee surgery LEFT History of colonoscopy History of tooth extraction History of tonsillectomy X 2 S/P aortic valve replacement 12+ YEARS AGO *[facility] "NEEDS REPAIRED" History of thoracic surgery SARCOMA REMOVED History of appendectomy Family History Mother Coronary heart disease Father Coronary heart disease Other No family history of adverse response to anesthesia Social History Smoking Status: Former smoker Tobacco Type: Cigarettes Second Hand Exposure: No; Do You Dip or Chew Tobacco: No; Hx Alcohol Use: Yes Alcohol type: beer Alcohol type Comment: 2 reagan lights a day Hx Substance Use: No Preferred Language: Mauritanian Communication Ability: Effective 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: No Beliefs That Will Affect Care: None Current Living Situation: Alone Current Living Situation Comment: Independent, still drives Feels Safe at Home: Yes Assistive Devices: None Results & Data Vital Signs (Past 12 Hours) Vital Signs Temp Pulse Pulse Resp BP Pulse Ox O2 Del Method 08/28/24 07:00 80 08/28/24 03:55 66 08/28/24 00:46 66 08/27/24 22:47 36.5 C 57 L 17 90/58 L 99 Nasal Cannula 08/27/24 22:22 Nasal Cannula O2 Flow Rate 08/28/24 07:00 08/28/24 03:55 08/28/24 00:46 08/27/24 22:47 2 08/27/24 22:22 2 PG Care Time/CCT Total # of Minutes Spent Total Time Spent with Patient: Total time spent is greater than 50% in coordination of care (as documented) at patient's floor/unit and/or counseling patient: Coding Level of Care Code 86291 INT INP/OBS CARE 40MIN Diagnoses Traumatic periorbital ecchymosis of left eye, subsequent encounter S05.12XD Encounter type: subsequent encounter Laterality: left Traumatic subconjunctival hemorrhage of left eye H11.32 Contusion of face, subsequent encounter S00.83XD Encounter type: subsequent encounter Fall, subsequent encounter W19.XXXD Encounter type: subsequent encounter Hematoma T14.8XXA (1) Traumatic periorbital ecchymosis Encounter type: subsequent encounter Laterality: left Qualified Code(s): S05.12XD - Contusion of eyeball and orbital tissues, left eye, subsequent encounter (3) Facial contusion Encounter type: subsequent encounter Qualified Code(s): S00.83XD - Contusion of other part of head, subsequent encounter (4) Fall Encounter type: subsequent encounter Qualified Code(s): W19.XXXD - Unspecified fall, subsequent encounter
[2024-08-28] MEDS: FOLIC ACID 400 MCG TAB PO SCH (08:04)
[2024-08-28] MEDS: CETIRIZINE HCL 10 MG TABLET PO SCH (08:04)
[2024-08-28] MEDS: CYANOCOBALAMIN (B-12) 500 MCG TABLET PO SCH (08:04)
[2024-08-28] MEDS: GABAPENTIN 100 MG CAP PO SCH (08:04)
[2024-08-28] MEDS: METOPROLOL SUCC 25MG EXT REL TAB PO SCH (08:05)
[2024-08-28] MEDS: ACETAMINOPHEN 500 MG TAB PO PRN (09:36)
--- NOTE | 2024-08-28 11:49 | Pulmonary Consultation ---
Date of Consultation August 28, 2024 Assessment & Plan (1) Bilateral pleural effusion: Upon my evaluation of the CT chest there is very minimal if any right sided pleural effusion and moderate left-sided pleural effusion with compressive atelectasis. Patient is asymptomatic from a respiratory perspective and is opposed to the idea of thoracentesis unless absolutely necessary. We came to a shared decision about repeating a chest x-ray tomorrow and following her clinical symptoms. Should her effusion increase in size or her symptoms worsen, we can consider a thoracentesis at that time. (2) Secondary pulmonary arterial hypertension: Patient has secondary pulmonary hypertension due to a history of aortic valve disease and mitral valve disease. Continue diuresis as able. (3) Chronic hypotension: Patient has chronic hypotension due to a history of severe tricuspid regurgitation and chronic RV failure. Continue midodrine as tolerated. (4) Ascites: Clinically she does not seem to have significant ascites, but there was note of ascites on CT chest. Suggest an ultrasound of her abdomen to evaluate further her liver and ascites. If she has a large volume ascites, may need to consider paracentesis by interventional radiology to evaluate for infectious or malignant process. 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 There was also some mention in the original H&P regarding alcoholi sm. Will defer management to the primary team. Plan Thank you for the consult. Pulmonary will continue to follow. History of Present Illness Reason for Consultation: "Pulm edema, pleural eff, resp failure, hypotension" Attending Physician: Vik Erickson MD History of Present Illness 84-year-old female with a prior history of valvular heart disease status post bioprosthetic aortic valve surgery, carotid disease, moderate mitral regurgitation and severe tricuspid regurgitation presenting to the hospital due to a fall. She tripped over a blanket and was found down by her family. She had numerous other falls. She sustained facial contusions, scalp contusions and traumatic periorbital ecchymosis. As part of her trauma workup in the ER she had a CT of her chest/10/16 which revealed cardiomegaly with mild interstitial pulmonary edema and a small right pleural effusion and moderate left pleural effusion. Left basilar predominant consolidation was noted suggestive of probable atelectasis. There was evidence of anasarca with abdominal ascites. No fractures or pneumothorax was seen. There was unchanged mediastinal left axillary lymphadenopathy. Patient notes that she chronically intermittently uses supplemental oxygen at home. She is currently saturating 91% on room air and has been intermittently on supplemental oxygen while in the hospital. She denies any shortness of breath at present. She denies any cough. She denies any prior history of thoracentesis. She notes she was a smoker and quit about 30 years ago. Echo 11/11/2023 revealed an LVEF of 55 to 60%. Moderate concentric LVH. Left atrium was moderately dilated. There was severe TR and moderate mitral regurgitation. Allergies Allergy/AdvReac Type Severity Reaction Status Date / Time pantoprazole Allergy Intermediate ITCHY RASH Verified 08/27/24 12:57 Penicillins Allergy Intermediate HIVES Verified 08/27/24 12:57 Home Medications Medication Instructions Recorded Confirmed Type acetaminophen 650 mg 2 tab PO BID PRN Pain 04/12/18 08/27/24 History tablet,extended release (Tylenol Arthritis Pain) metoprolol succinate 25 mg 25 mg PO QAM 11/12/21 08/27/24 History tablet,extended release 24 hr Oxygen Home 12/04/21 05/12/24 History aspirin 81 mg tablet,delayed 81 mg PO UD 11/10/23 08/27/24 History release cyanocobalamin (vitamin B-12) 1,000 mcg IM Q4WK 11/10/23 08/27/24 History 1,000 mcg/mL injection solution cetirizine 10 mg tablet (Zyrtec) 10 mg PO DAILY 05/12/24 08/27/24 History ferrous sulfate 325 mg (65 mg 325 mg PO DAILY 05/12/24 08/27/24 History iron) tablet (Iron (ferrous sulfate)) umeclidinium 62.5 mcg-vilanterol 1 inh inhalation QAM 05/12/24 08/27/24 History 25 mcg/actuation powdr for inhalation (Anoro Ellipta) vitamin B12 1,000 mcg-folic acid 1 tye sublingual DAILY 05/12/24 08/27/24 History 400 mcg sublingual lozenge digoxin 125 mcg (0.125 mg) tablet 125 mcg PO 3XWK 05/13/24 08/27/24 History albuterol sulfate 90 mcg/actuation 2 puff inhalation Q4H PRN 08/27/24 08/27/24 History aerosol inhaler Shortness Of Breath Or Wheezing furosemide 40 mg tablet 40 mg PO DAILY 08/27/24 08/27/24 History gabapentin 100 mg capsule 100 mg PO DAILY 08/27/24 08/27/24 History levothyroxine 100 mcg tablet 100 mcg PO DAILYBB 08/27/24 08/27/24 History mesalamine 0.375 gram 1.5 g PO QAM 08/27/24 08/27/24 History capsule,extended release 24 hr Patient History Medical History GERD (gastroesophageal reflux disease) Hx of sarcoma of bone SURGERY ONLY Poor historian Acute on chronic diastolic heart failure due to valvular disease Carotid artery occlusion NO SURGERY ON CAROTID Crohns disease Spinal stenosis Osteoarthritis Cardiac murmur FOLLOWS WITH [employer] CARDS Hyperlipidemia Former smoker Surgical History H/O knee surgery LEFT History of colonoscopy History of tooth extraction History of tonsillectomy X 2 S/P aortic valve replacement 12+ YEARS AGO *[facility] [place] "NEEDS REPAIRED" History of thoracic surgery SARCOMA REMOVED History of appendectomy Family History Mother Coronary heart disease Father Coronary heart disease Other No family history of adverse response to anesthesia Social History Smoking Status: Former smoker Tobacco Type: Cigarettes Second Hand Exposure: No; Do You Dip or Chew Tobacco: No; Hx Alcohol Use: Yes Alcohol type: beer Alcohol type Comment: 2 reagan lights a day Hx Substance Use: No Preferred Language: [place] Communication Ability: Effective Warehouse Attendant Required: No Beliefs That Will Affect Care: None Current Living Situation: Alone Current Living Situation Comment: Independent, still drives Feels Safe at Home: Yes Assistive Devices: None Review of Systems Review of Systems: All systems reviewed & are unremarkable except as noted in HPI & below Physical Exam Physical Exam: Constitutional: Frail and elderly appearing female no apparent distress. Eyes: Bilateral periorbital ecchymosis noted with mild conjunctivitis bilaterally. Ears nose, mouth and throat: No cyanosis Neck: Trachea is midline. Visual inspection is normal. Respiratory: Mild crackles in the bilateral lower lobes. No tachypnea Cardiovascular: Regular rate and rhythm. Mild systolic flow murmur. No murmurs. Mild pitting edema. Gastrointestinal: Normal bowel sounds, soft, nontender and nondistended. No hepatosplenomegaly noted. Musculoskeletal: No cyanosis. Patient is able to move all extremities. Strength is 5 out of 5 in the upper and lower extremities. Skin: No rashes, warm dry and intact. Neurologic: No obvious focal neurological deficits seen. Psychiatric: Alert and oriented x3 with a euthymic affect. Results & Data Results & Data Vital Signs (Past 12 Hours) Vital Signs Temp Pulse Pulse Resp BP Pulse Ox O2 Del Method 08/28/24 11:00 36.2 C L 84 16 107/69 95 Nasal Cannula 08/28/24 08:15 Room Air 08/28/24 07:45 36.7 C 94 H 17 94/62 L 91 Nasal Cannula 08/28/24 07:00 80 08/28/24 03:55 66 08/28/24 00:46 66 O2 Flow Rate 08/28/24 11:00 2.0 08/28/24 08:15 08/28/24 07:45 2.0 08/28/24 07:00 08/28/24 03:55 08/28/24 00:46 PG Care Time/CCT Total # of Minutes Spent Total Time Spent with Patient: Total time spent is greater than 50% in coordination of care (as documented) at patient's floor/unit and/or counseling patient: Coding Level of Care Code 21380 INT INP/OBS CARE 255MIN Diagnoses Bilateral pleural effusion J90 Secondary pulmonary arterial hypertension I27.21 Chronic hypotension I95.89 Ascites R18.8
--- NOTE | 2024-08-28 12:38 | Electrocardiogram Report ---
Test Reason : Blood Pressure : */* mmHG Vent. Rate : 64 BPM Atrial Rate : * BPM P-R Int : * ms QRS Dur : 84 ms QT Int : 386 ms P-R-T Axes : * -20 -3 degrees QTcB Int : 398 ms Atrial flutter Low voltage QRS Cannot rule out Anterior infarct (cited on or before 13-May-2024) Abnormal ECG When compared with ECG of 13-May-2024 06:36, Vent. rate has decreased by 42 bpm Questionable change in initial forces of Anteroseptal leads Confirmed by Suraj Mercer ([id number]) on 08/28/2024 12:38:12 PM Referred By: REFERRED SELF Confirmed By: Suraj Mercer
--- NOTE | 2024-08-28 13:14 | Cardiology Consultation ---
Date of Consultation August 28, 2024 Assessment & Plan (1) Acute on chronic heart failure with preserved ejection fraction (HFpEF): (2) Fall: (3) Bilateral pleural effusion: (4) Chronic hypotension: Plan 84-year-old female with past medical history of HFpEF, aortic stenosis s/p AVR and s/p TAVR valve in valve in 2022, paroxysmal atrial flutter (not on AC due to history of bleeding), COPD, sternal chondrosarcoma s/p resection, who presented to ED after unwitnessed fall at home, frequent falls over last week. Also noted to have significant lower extremity edema at home. - BNP elevated, chest CT with bilateral pleural effusions, clinical picture suggestive of acute on chronic HFpEF - start furosemide IV 20 mg twice daily - increase midodrine to 5 mg TID - continue metoprolol succinate and digoxin - continue to monitor on telemetry - repeat echo pending - strict I and Os, daily weights Case discussed with attending physician, further recommendations per Dr. Greco. I spent a total of 40 minutes on the date of service in preparation, delivery, and documentation of the care provided to this patient excluding any time spent in the performance of separately billed services. This visit was a split-shared visit with the substantial portion of the decision making performed by the supervising exhaust machine operator/billing provider. Supervising Physician Co-Signing Physician Notes I spent a total of 40 minutes on the date of service in preparation, delivery, and documentation of the care provided to this patient, excluding any time spent in the performance of separately billed services. I have personally performed a history and physical examination on the patient. I have reviewed the advance practitioner's documentation, and I agree with, and take responsibility for the plan of care. 4-year-old female with history of chronic diastolic heart failure, severe pulmonary hypertension, aortic stenosis status post AVR and TAVR valve in valve in 2022, paroxysmal atrial flutter (not on anticoagulation due to history of significant bleeding/falls, COPD, sternal chondral sarcoma status resection presented to the ED after mechanical fall. Patient states that she has had multiple falls over the past week. She sustained significant trauma to her orbital area. She was noted to be significantly volume overloaded. Patient does state that she has been having shortness of breath with exertion. ECG showed rate controlled atrial flutter. With no acute ischemic changes. Cardiac troponins flat at 76, 82, 79 secondary to decompensated heart failure. Showed cardiomegaly pulmonary edema moderate effusion anasarca with abdominal ascites. Patient does examine to be volume overloaded on exam. Diuresis has been limited due to low normal blood pressure readings. Midodrine was started yesterday will increase midodrine dose to 5 mg p.o. 3 times daily which will hopefully allow us more efficient diuresis. Continue with Lasix 20 mg IV twice daily. Patient already got her dose of digoxin. Would recommend checking digoxin level in the morning. History of Present Illness Reason for Consultation: Acute on chronic CHF Requesting Physician: [facility] hospitalist Attending Physician: Vik Erickson MD History of Present Illness 84-year-old female with past medical history of HFpEF, aortic stenosis s/p AVR and s/p TAVR valve in valve in 2022, paroxysmal atrial flutter (not on AC due to history of bleeding), COPD, sternal chondrosarcoma s/p resection, who presented to ED after fall. Patient is poor historian. Lives alone, unclear how she fell. Thinks she passed out. Fell onto face. Has had 3 falls in past week. Thinks one time she tripped over dog blanket. Per patient and family at bedside, has also noticed worsening edema over past few weeks. Had weeping legs at one point. Notes daughter manages medications, but she does not think she missed any doses of her diuretics. In ED, BNP elevated. Chest CT with bilateral pleural effusions, L>R. Blood pressure has been hypotensive, on arrival 92/61. On exam today, patient states she feels well and is eager to go home. Denies chest pain, palpitations, shortness of breath. Denies abnormal bleeding. History of daily alcohol use, but states she "no longer does that". Former tobacco use. Denies illicit drug use. Denies history of cirrhosis. Notes she sometimes wears 2-3 L oxygen at home. Allergies Allergy/AdvReac Type Severity Reaction Status Date / Time pantoprazole Allergy Intermediate ITCHY RASH Verified 08/27/24 12:57 Penicillins Allergy Intermediate HIVES Verified 08/27/24 12:57 Home Medications Medication Instructions Recorded Confirmed Type acetaminophen 650 mg 2 tab PO BID PRN Pain 04/12/18 08/27/24 History tablet,extended release (Tylenol Arthritis Pain) metoprolol succinate 25 mg 25 mg PO QAM 11/12/21 08/27/24 History tablet,extended release 24 hr Oxygen Home 12/04/21 05/12/24 History aspirin 81 mg tablet,delayed 81 mg PO UD 11/10/23 08/27/24 History release cyanocobalamin (vitamin B-12) 1,000 mcg IM Q4WK 11/10/23 08/27/24 History 1,000 mcg/mL injection solution cetirizine 10 mg tablet (Zyrtec) 10 mg PO DAILY 05/12/24 08/27/24 History ferrous sulfate 325 mg (65 mg 325 mg PO DAILY 05/12/24 08/27/24 History iron) tablet (Iron (ferrous sulfate)) umeclidinium 62.5 mcg-vilanterol 1 inh inhalation QAM 05/12/24 08/27/24 History 25 mcg/actuation powdr for inhalation (Anoro Ellipta) vitamin B12 1,000 mcg-folic acid 1 tye sublingual DAILY 05/12/24 08/27/24 History 400 mcg sublingual lozenge digoxin 125 mcg (0.125 mg) tablet 125 mcg PO 3XWK 05/13/24 08/27/24 History albuterol sulfate 90 mcg/actuation 2 puff inhalation Q4H PRN 08/27/24 08/27/24 History aerosol inhaler Shortness Of Breath Or Wheezing furosemide 40 mg tablet 40 mg PO DAILY 08/27/24 08/27/24 History gabapentin 100 mg capsule 100 mg PO DAILY 08/27/24 08/27/24 History levothyroxine 100 mcg tablet 100 mcg PO DAILYBB 08/27/24 08/27/24 History mesalamine 0.375 gram 1.5 g PO QAM 08/27/24 08/27/24 History capsule,extended release 24 hr Patient History Medical History Chest tightness Heart failure, diastolic, with acute decompensation Atrial flutter with rapid ventricular response Severe tricuspid regurgitation Atrial flutter with controlled response Crohn disease Hypothyroidism COPD (chronic obstructive pulmonary disease) HAS O2 BUT NOT USING CURRENLTY Atrial fibrillation with RVR History of thyroidectomy (Unknown) GERD (gastroesophageal reflux disease) Hx of sarcoma of bone SURGERY ONLY Poor historian Acute on chronic diastolic heart failure due to valvular disease Carotid artery occlusion NO SURGERY ON CAROTID Crohns disease Spinal stenosis Osteoarthritis Cardiac murmur FOLLOWS WITH [facility] CARDS Hyperlipidemia Former smoker Surgical History S/P TAVR (transcatheter aortic valve replacement) H/O knee surgery LEFT History of colonoscopy History of tooth extraction History of tonsillectomy X 2 S/P aortic valve replacement 12+ YEARS AGO *[facility] "NEEDS REPAIRED" History of thoracic surgery SARCOMA REMOVED History of appendectomy Family History Mother Coronary heart disease Father Coronary heart disease Other No family history of adverse response to anesthesia Social History Smoking Status: Former smoker Tobacco Type: Cigarettes Second Hand Exposure: No; Do You Dip or Chew Tobacco: No; Hx Alcohol Use: Yes Alcohol type: beer Alcohol type Comment: 2 reagan lights a day Hx Substance Use: No Preferred Language: Czech Communication Ability: Effective Online Marketing Analyst Required: No Beliefs That Will Affect Care: None Current Living Situation: Alone Current Living Situation Comment: Independent, still drives Feels Safe at Home: Yes Assistive Devices: None Review of Systems Review of Systems: CONSTITUTIONAL: No change in weight, No weakness, No fatigue and No fevers, No sweats or chills. PULMONARY: No cough, sputum, or hemoptysis, No wheezing, No shortness of breath and No recent change in breathing. CARDIOVASCULAR: No chest pain, No dyspnea on exertion, No edema, No palpitations and No syncope. GASTROINTESTINAL: No abdominal pain, No change in bowel habits, No significant heartburn, No nausea, No vomiting, No diarrhea, No constipation, No blood in stools or black tarry stools. No dysphagia. HEMATOLOGIC: No abnormal bleeding and No bruising. NEUROLOGICAL: Normal balance, No headaches and No weakness. Physical Exam Physical Exam: General: No acute distress. A+Ox3. HEENT: Normocephalic. Atraumatic. PERRL. EOMI. Conjunctiva and sclera clear. Ecchymosis and periorbital edema bilaterally. Bruising on forehead. NECK: No carotid bruits. + JVD. Carotid upstrokes are brisk. Heart: RRR. S1 and S2 noted. +2/6 systolic murmur. No rubs or gallops. PMI non displaced. Lungs: Clear to auscultation. No wheezes. No rhonchi. No rales. Abdomen: Normal bowel sounds. Soft. Nontender. No masses or organomegaly. No abdominal bruits. +distention Extremities: No edema. No clubbing or cyanosis. Pulses: radial=2/4, posterior tibial=2/4, dorsalis pedis = 2/4. NEURO: No focal deficits. PSYCH: Appropriate affect and insight. Results & Data Vital Signs (Past 12 Hours) Vital Signs Temp Pulse Pulse Resp BP Pulse Ox O2 Del Method 08/28/24 11:00 36.2 C L 84 16 107/69 95 Nasal Cannula 08/28/24 08:15 Room Air 08/28/24 07:45 36.7 C 94 H 17 94/62 L 91 Nasal Cannula 08/28/24 07:00 80 08/28/24 03:55 66 O2 Flow Rate 08/28/24 11:00 2.0 08/28/24 08:15 08/28/24 07:45 2.0 08/28/24 07:00 08/28/24 03:55 Laboratory Results Cardiac Enzymes 08/27/24 08/27/24 08/27/24 Range/Units 11:46 14:11 17:39 AST (13-39) U/L Troponin I High Sens 76.9 H* 82.1 H* 79.5 H* (0-14) pg/ml B-Natriuretic Peptide 760 H (0-100) pg/ml 08/28/24 Range/Units 05:35 AST 34 (13-39) U/L Troponin I High Sens (0-14) pg/ml B-Natriuretic Peptide (0-100) pg/ml Coagulation 08/27/24 Range/Units 17:39 PT 13.9 H (9.0-12.0) Seconds B-Natriuretic Peptide 760 H (0-100) pg/ml CBC 08/28/24 Range/Units 05:35 WBC 4.76 L (4.8-10.8) K/ul RBC 4.05 L (4.20-5.40) M/uL Hgb 12.8 (12.0-16.0) g/dl Hct 40.7 (37.0-47.0) % Plt Count 105 L (130-400) K/uL Neut # (Auto) 3.11 (1.40-6.50) K/uL Lymph # (Auto) 1.05 L (1.20-3.40) K/uL [place] # (Auto) 0.53 (0.11-0.59) K/uL Eos # (Auto) 0.01 (0.00-0.50) K/uL Baso # (Auto) 0.04 (0.00-0.20) K/uL Comprehensive Metabolic Panel 08/28/24 Range/Units 05:35 Sodium 135 L (136-145) mmol/L Potassium 5.0 (3.5-5.1) mmol/L Chloride 97 L (98-107) mmol/L Carbon Dioxide 33 H (21-32) mmol/L BUN 29 H (6-23) mg/dl Creatinine 0.99 (0.6-1.2) mg/dl Glucose 71 (70-99(Fasting)) mg/dl Calcium 9.1 (8.6-10.3) mg/dl AST 34 (13-39) U/L ALT 7 (7-52) U/L Alkaline Phosphatase 71 (34-104) U/L Total Protein 6.7 (6.0-8.3) gm/dl Albumin 3.4 (3.4-5.0) gm/dl Intake and Output 08/27/24 08/28/24 08/28/24 22:59 06:59 14:59 Intake Total 100 / 100 Balance 100 / 100 Intake: IV 100 / 100 Acetaminophen 1,000 mg In 100 100 / 100 ml @ 400 mls/hr IV NOW STA Rx#: [id number] Diagnostic Findings EKG 08/27/24 atrial flutter, 64 bpm (2) Fall Encounter type: subsequent encounter Qualified Code(s): W19.XXXD - Unspecified fall, subsequent encounter
--- NOTE | 2024-08-28 13:35 | Hospitalist Progress Note ---
Date of Service August 28, 2024 Assessment & Plan (1) Traumatic periorbital ecchymosis: (2) Facial contusion: Plan per previous hospitalist notes with addendum: Pt is an 84yoF with PMhx significant for chronic diastolic heart failure, valvular heart disease (mild to moderate MR, severe TR), pulmonary hypertension, PAF, bioprosthetic AVR stenosis status post surgery, PVD, COPD, RLS, Crohn's disease, meningioma status post gamma knife surgery, 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 Fall Scalp and facial contusions Traumatic periorbital ecchymosis Left eye conjunctivitis Pt unsure of details Family notes that she has been having frequent falls, lives alone, unsure how long she was on the ground Pt with swollen and bruised eyelids On aspirin at home Head CT and Face CT noting large scalp and facial contusions but no acute fracture Cervical spine CT and chest CT without acute fracture/acute trauma signs CPK pending Hold home aspirin, on it 3x a week OMFS consult for contusions and impressive facial traumatic changes Erythromycin ointment to L eye PT/OT 08/28 No neurologic deficits No visual deficits CP K within normal limits Appreciate Dr. Peguero's recommendations Aspirin on hold Continue to monitor closely Acute on Chronic Congestive heart failure Acute on Chronic hypoxic respiratory failure Pt unsure if she has taken her daily diuretic States she uses oxygen at home, 2L nightly Chest XR concerning for Left greater than right small pleural effusions CT chest noting mild interstitial pulmonary edema, small right and moderate left pleural effusions. Repeat echo pending VBG ordered and pending BNP pending Pt currently hypotensive, will need very cautious diuretics Cardiology consulted, appreciate recs. -case discussed with Dr Greco who recommended midodrine with diuresis -midodrine 2.5mg TID ordered, titrate dose as needed -IV lAsix once BP improves -holding home lasix 40mg daily (dose was increased on 08/11/24) Pulmonology consulted for possible thoracentesis as well, appreciate recs Oxygen supplementation as needed Continue to monitor 08/28 echocardiogram: Pending Lasix 20 mg IV twice daily ordered together with midodrine 5 mg p.o. 3 times daily Appreciate cardiology service recommendations Atrial Fibrillation s/p TAVR Pt on metoprolol 25mg daily with digoxin 125mcg MWF Not on anticoagulation due multiple contraindications Bilateral lower extremity edema likely secondary to CHF exacerbation Associated with some erythema and warmth trial of Lasix IV If without improvement, will start antibiotics Ascites Pt with noted ascites on CT chest No known diagnosis of cirrhosis Consider dedicated imaging of the abdomen Diuresis as above Consider GI consult 08/28 no abdominal distention Monitor LFTs Chronic alcohol use Thrombocytopenia Frequent falls and pt with poor memory of what happened Alcohol level pending Thrombocytopenia chronic likely in the setting of chronic alcohol use AWSS at risk protocol Monitor for signs of withdrawal 08/28 When asked, patient reports last drink of alcohol was more than a week ago States he only consumes alcohol about once a month No signs of overt withdrawal at this time Platelets stable around 100 K Monitor closely Elevated Troponin Trop elevated at 76.9 and 82.1, third set 79.5 EKG with known atrial fibrillation Repeat Echo pending Likely elevated in demand setting Multinodular Goiter Noted on imaging TSH normal Continue home levothyroxine Outpt followup Skin Wounds Pt with multiple scratches and skin wounds on lower extremities and face Notes dogs at home that scratch Wound care consult Hx of sternal chondrosarcoma s/p sternotomy Pt nots she was told she should not have CPR as a result of her sternotomy so she is a DNR However she would like defib if needed as well as intubation Continue other home meds as ordered Diet: HH DVT prophylaxis: SCDs in the setting of thrombocytopenia, hematoma Dispo: pending Lives at home Will order PT and OT eval Admission and Anticipated Discharge Date Admission Date: August 27, 2024 Subjective follow-up for CHF exacerbation, acute respiratory failure, multiple falls, etc. Seen resting in bed, sitting up, on 2 L of O2 by nasal cannula Awake, alert, oriented x 3 Answering all questions appropriately States she feels fine overall Denies shortness of breath, chest pain, nausea, palpitations, dizziness denies significant pain, denies problems with vision Denies other pain in her body No other new symptoms Review of Systems Review of Systems: all noted and negative except for above Physical Exam Physical Exam: General- oriented x 3, not in distress, speaks in sentences with no effort or accessory muscle use Positive moderate periorbital edema, ecchymosis Eyes- No hemorrhage noted, full extraocular movement no visual deficits Neck- no JVD Lungs- Mild rales at the bases, no wheezing Heart- normal rate, regular rhythm; no murmurs Abdomen- normal bowel sounds, nondistended, soft, no tenderness Extremities- grade 1 bilateral lower extremity edema, with mild erythema, mild warmth, no tenderness Neuro- alert, oriented x 3; no gross focal neurologic deficits Skin- warm & dry Results & Data Results & Data Vital Signs (Past 12 Hours) Vital Signs Temp Pulse Pulse Resp BP Pulse Ox O2 Del Method 08/28/24 11:00 36.2 C L 84 16 107/69 95 Nasal Cannula 08/28/24 08:15 Room Air 08/28/24 07:45 36.7 C 94 H 17 94/62 L 91 Nasal Cannula 08/28/24 07:00 80 08/28/24 03:55 66 O2 Flow Rate 08/28/24 11:00 2.0 08/28/24 08:15 08/28/24 07:45 2.0 08/28/24 07:00 08/28/24 03:55 all noted and reviewed including below
[2024-08-28] MEDS: FUROSEMIDE INJ 20 MG/2 ML VIAL IV SCH (16:55)
[2024-08-28] MEDS: MIDODRINE HCL 2.5 MG TAB PO SCH (16:55)
--- NOTE | 2024-08-29 07:49 | XRay Report ---
EXAM: XR chest 1V portable CLINICAL HISTORY: Left pleural effusion TECHNIQUE: X-ray image of the chest obtained in AP projection. COMPARISON: Prior X-ray dated 08/27/2024. FINDINGS: Pulmonary Parenchyma: Unchanged moderate left and mild right pleural effusion. Unchanged left lung lower zone airspace opacity/atelectasis. Unchanged atelectatic bands in bilateral mid zones. Heart and Mediastinum: Stable cardiomegaly. Aortic stent seen. Aortic calcification. Bony Thorax: Sternotomy sutures. Bony thorax appears intact without fractures or deformities. Soft Tissues: Soft tissues overlying the chest wall are unremarkable. IMPRESSION: 1. Unchanged moderate left and mild right pleural effusion. 2. Unchanged left lung lower zone airspace opacity/atelectasis. 3. Unchanged atelectatic bands in bilateral mid zones. 4. Stable cardiomegaly. Electronically signed by Higinio Martinez 08-29-2024 07:48 AM
[2024-08-29] MEDS ORDERED: DIGOXIN 0.125 MG TAB PO SCH (09:00)
--- NOTE | 2024-08-29 09:05 | Pulmonology Progress Note ---
Date of Service August 29, 2024 Assessment & Plan (1) Bilateral pleural effusion: (2) Secondary pulmonary arterial hypertension: Plan Impression: 84-year-old female with complex medical history admitted status post fall found to have bilateral pleural effusions left greater than right. Recommendations: 1. Pleural effusion: Discussed thoracentesis with the patient. The chest x-ray today demonstrates stability. Diuresis warranted but may take some time for the effusions to resolve. Advised her that given her slight increased work of breathing today and oxygen requirement, proceeding with diagnostic and therapeutic thoracentesis would be reasonable. She expressed understanding and is in agreement with the plan. Will plan on the procedure later today. Fluid will be sent for routine microbiologic as well as cytologic evaluation. 2. Hypoxemia: Wean oxygen as tolerated. Incentive spirometry recommended. Out of bed to chair as tolerated. Anticipate improvement in her oxygen requirement postthoracentesis. 3. Management of the patient's other medical issues per primary admitting service Admission and Anticipated Discharge Date Admission Date: August 27, 2024 Subjective Patient seen and examined. EMR reviewed. Discussed with outgoing barber. The patient is awake alert and conversant this morning. Her breathing is slight ly labored but she reports no respiratory symptoms. She denies any pain, coughing, or sputum production. She is on a low flow of oxygen currently Review of Systems Review of Systems: All systems reviewed & are unremarkable except as noted in Subjective Physical Exam Constitutional: WD/WN, vitals as above Neck: trachea midline, no thyromegaly Respiratory: + tachypneic; no labored breathing and n o cough Auscultation: + diminished lung sounds Decreased breath sounds at the left lung base with dullness to percussion Cardiovascular: RRR, no murmur, no edema Gastrointestinal (Abdomen): normal bowel sounds, soft, nontender, no hepatosplenomegaly Musculoskeletal: Extremities: extremities normal to inspection Skin: no rashes, warm and dry Neurologic: Nonfocal exam Lymphatic: no cervical lymphadenopathy Results & Data Results & Data Vital Signs (Past 12 Hours) Vital Signs Temp Pulse Pulse Resp BP Pulse Ox O2 Del Method 08/29/24 08:17 74 08/29/24 07:52 36.5 C 91 H 16 109/78 98 Room Air 08/29/24 07:42 Nasal Cannula 08/29/24 03:00 36.7 C 98 H 19 106/76 93 Nasal Cannula 08/28/24 22:58 36.8 C 95 H 16 114/78 98 Nasal Cannula 08/28/24 21:00 Nasal Cannula O2 Flow Rate 08/29/24 08:17 08/29/24 07:52 08/29/24 07:42 2 08/29/24 03:00 2 08/28/24 22:58 2 08/28/24 21:00 2 Critical Care Results & Data Vital Signs (Past 12 Hours) Vital Signs Temp Pulse Pulse Resp BP Pulse Ox O2 Del Method 08/29/24 08:17 74 08/29/24 07:52 36.5 C 91 H 16 109/78 98 Room Air 08/29/24 07:42 Nasal Cannula 08/29/24 03:00 36.7 C 98 H 19 106/76 93 Nasal Cannula 08/28/24 22:58 36.8 C 95 H 16 114/78 98 Nasal Cannula O2 Flow Rate 08/29/24 08:17 08/29/24 07:52 08/29/24 07:42 2 08/29/24 03:00 2 08/28/24 22:58 2 Lab & Micro Results (Past 24 Hours) No Data to Display No Data to Display No Data to Display Diagnostic Findings (Past 24 Hours) Chest X-Ray 08/29/24 07:00 EXAM: XR chest 1V portable CLINICAL HISTORY: Left pleural effusion TECHNIQUE: X-ray image of the chest obtained in AP projection. COMPARISON: Prior X-ray dated 08/27/2024. FINDINGS: Pulmonary Parenchyma: Unchanged moderate left and mild right pleural effusion. Unchanged left lung lower zone airspace opacity/atelectasis. Unchanged atelectatic bands in bilateral mid zones. Heart and Mediastinum: Stable cardiomegaly. Aortic stent seen. Aortic calcification. Bony Thorax: Sternotomy sutures. Bony thorax appears intact without fractures or deformities. Soft Tissues: Soft tissues overlying the chest wall are unremarkable. IMPRESSION: 1. Unchanged moderate left and mild right pleural effusion. 2. Unchanged left lung lower zone airspace opacity/atelectasis. 3. Unchanged atelectatic bands in bilateral mid zones. 4. Stable cardiomegaly. Electronically signed by Higinio Martinez 08-29-2024 07:48 AM I & O Totals 24 Hours 08/28/24 08/29/24 08/30/24 06:59 06:59 06:59 Intake Total 100 / 100 160 / 160 Balance 100 / 100 160 / 160 Cumulative 08/27/24 10:48 thru 08/29/24 06:27 Intake Total 260 Balance 260 RT Ventilator Mngmt (Last Documented) Ventilator Ordered Settings Respiratory Rate 16 08/29/24 07:52 Ventilator - PT Measurements Respiratory Rate 16 PG Care Time/CCT Total # of Minutes Spent Total Time Spent with Patient: Total time spent is greater than 50% in coordination of care (as documented) at patient's floor/unit and/or counseling patient: Coding Level of Care Code 48652 SUB INP/OBS CARE 2/35MIN Diagnoses Bilateral pleural effusion J90 Secondary pulmonary arterial hypertension I27.21
--- NOTE | 2024-08-29 11:09 | Procedure Note ---
Procedure Note Date of Service August 29, 2024 Procedure: Diagnostic therapeutic ultrasound-guided catheter thoracentesis, left Fruit Shipper: Dr. Noel Lopez Indication: Pleural effusion Consent: Signed by patient and verified with timeout prior to procedure Anesthesia: 8 mL's 1% lidocaine without epinephrine local. Procedure: Consent was verified and timeout performed. Appropriate imaging studies were reviewed prior to the procedure. Patient was placed in a seated position and limited thoracic ultrasound was performed of the left chest. A small to moderate pleural effusion was identified. Site appropriate for thoracentesis was selected. The skin was prepped and draped in normal sterile fashion. Lidocaine was used for local analgesia. Fluid was aspirated via the finder needle. A small skin rasheeda was made with the scalpel and the catheter over the needle apparatus was advanced over the rib into the pleural space. Using the syringe one-way valve system, a total of 600 mL's of bloody fluid was removed. Procedure was terminated due to patient coughing. The catheter was removed and observed to be intact. A sterile dressing was applied. Post procedure chest x- ray was ordered. Fluid was sent for cytology, cell count differential, Gram stain and culture, LDH, pH, glucose, total protein. The patient tolerated the procedure well without obvious complication [facility] [place] Procedure Codes (Charges) Pulmonary/Thoracic Procedure 1: Pulmonary and Thoracic: 63900 Thoracentesis w imaging Coding CPT Codes Pulmonary/Thoracic - Pulmonary and Thoracic: 64302 Thoracentesis w imaging ([id number]) Additional Codes Date of Service (PG.SURGERY)
--- NOTE | 2024-08-29 11:36 | XRay Report ---
XR chest 1V portable CLINICAL HISTORY: S/P Thoracentesis COMPARISON STUDY: 08/29/2024 FINDINGS: Stable cardiac valve repair. Stable cardiomegaly without pulmonary vascular congestion. The re are small bilateral pleural effusions and associated lung base consolidation, left greater than ri ght, mildly improved on the left. There is no pneumothorax. IMPRESSION: No pneumothorax. ACT 112: Negative or not required by law. Electronically signed by: David Verma M.D. 08/29/2024 11:35 AM
[2024-08-29 12:07] LABS: Glucose Pleural Fluid 117 mg/dl; LDH Pleural Fluid 87 U/L; Total Protein Pleural Fluid < 3.0 gm/dl
[2024-08-29 12:26] LABS: Appearance Pleural Fluid Cloudy; Color Pleural Fluid Red; RBC Pleural Fluid Auto 87000 /uL; Source Pleural Fluid Left Lung; WBC Pleural Fluid Auto 1084 /uL
--- NOTE | 2024-08-29 12:26 | Cardiology Progress Note ---
Date of Service August 29, 2024 Assessment & Plan (1) Acute on chronic heart failure with preserved ejection fraction (HFpEF): (2) Fall: (3) Bilateral pleural effusion: (4) Chronic hypotension: Plan 84-year-old female with past medical history of HFpEF, aortic stenosis s/p AVR and s/p TAVR valve in valve in 2022, paroxysmal atrial flutter (not on AC due to history of bleeding), COPD, sternal chondrosarcoma s/p resection, who presented to ED after unwitnessed fall at home, frequent falls over last week. Also noted to have significant lower extremity edema at home. - BNP elevated, chest CT with bilateral pleural effusions, clinical picture suggestive of acute on chronic HFpEF - start furosemide IV 20 mg twice daily - increase midodrine to 5 mg TID - continue metoprolol succinate and digoxin - continue to monitor on telemetry - repeat echo pending - strict I and Os, daily weights 08/29/2024 Very complex 84-year-old female admitted after mechanical fall and facial injury increased lower extremity edema per reports on exam Patient with multi valvular heart disease as well as severe pulmonary hypertension secondary to left-sided issues as well as right-sided concerns. Patient wears oxygen sporadically at home Very preload dependent given Severe pulmonary hypertension Thoracentesis planned today Will hold IV furosemide after dose this evening. Recheck renal function in a.m. Prior Entresto use resulted in profound hypotension and hyperkalemia Could consider Entresto though potassium climbing Atrial fibrillation rates controlled adequately. Anticoagulation contraindicated Admission and Anticipated Discharge Date Admission Date: August 27, 2024 Subjective Patient was seen and personally examined. No acute cardiac implants though with planned thoracentesis later this morning. No chest pains or discomfort. Significant facial ecchymoses present Blood pressure trending towards low but no dizziness orthostasis currently Lower extremity edema improved Weights and I's and O's not accurately reflecting response Review of Systems Review of Systems: All systems reviewed & are unremarkable except as noted in Subjective Physical Exam Constitutional: + ill appearing and + thin; no acute dis tress Eyes: Significant facial and periorbital ecchymoses left greater than right Neck: trachea midline, no thyromegaly Cardiovascular: Rate/Rhythm: + irregularly irregular Vessels: no JVD Extremities: + edema Sternal heave Gastrointestinal (Abdomen): normal bowel sounds, soft, nontender, no hepatosplenomegaly Results & Data Vital Signs (Past 12 Hours) Vital Signs Temp Pulse Pulse Resp BP Pulse Ox O2 Del Method 08/29/24 11:33 98/65 L 08/29/24 10:37 36.5 C 96 H 20 116/76 97 Room Air 08/29/24 08:17 74 08/29/24 07:52 36.5 C 91 H 16 109/78 98 Room Air 08/29/24 07:42 Nasal Cannula 08/29/24 03:00 36.7 C 98 H 19 106/76 93 Nasal Cannula O2 Flow Rate 08/29/24 11:33 08/29/24 10:37 08/29/24 08:17 08/29/24 07:52 08/29/24 07:42 2 08/29/24 03:00 2 Laboratory Results Laboratory Results - last 24 hr 08/29/24 Unknown Fluid Neutrophils % Pending Fluid Comment Pleural Fluid Source Pending Pleural Color Pending Pleural Appearance Pending Pleural pH 7.49 H Pleural Total Protein < 3.0 Pleural LDH 87 Pleural Glucose 117 (2) Fall Encounter type: subsequent encounter Qualified Code(s): W19.XXXD - Unspecifie d fall, subsequent encounter
[2024-08-29 13:31] LABS: Lymphocytes, Fluid 62 %; Mono,Macrophage,Mesothelial 36 %; Neutrophils, Fluid 2 %
--- NOTE | 2024-08-29 17:37 | Hospitalist Progress Note ---
Date of Service August 29, 2024 Assessment & Plan (1) Traumatic periorbital ecchymosis: (2) Facial contusion: Plan per previous hospitalist notes with addendum: Pt is an 84yoF with PMhx significant for chronic diastolic heart failure, valvular heart disease (mild to moderate MR, severe TR), pulmonary hypertension, PAF, bioprosthetic AVR stenosis status post surgery, PVD, COPD, RLS, Crohn's disease, meningioma status post gamma knife surgery, 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 Fall Scalp and facial contusions Traumatic periorbital ecchymosis Left eye conjunctivitis Pt unsure of details Family notes that she has been having frequent falls, lives alone, unsure how long she was on the ground Pt with swollen and bruised eyelids On aspirin at home Head CT and Face CT noting large scalp and facial contusions but no acute fracture Cervical spine CT and chest CT without acute fracture/acute trauma signs CPK pending Hold home aspirin, on it 3x a week OMFS consult for contusions and impressive facial traumatic changes Erythromycin ointment to L eye PT/OT 4/ No neurologic deficits No visual deficits CP K within normal limits Appreciate Dr. Peguero's recommendations Aspirin on hold Continue to monitor closely 08/29 facial edema, periorbital hematoma improving Aspirin on hold Acute on Chronic Congestive heart failure Acute on Chronic hypoxic respiratory failure Pt unsure if she has taken her daily diuretic States she uses oxygen at home, 2L nightly Chest XR concerning for Left greater than right small pleural effusions CT chest noting mild interstitial pulmonary edema, small right and moderate left pleural effusions. Repeat echo pending VBG ordered and pending BNP pending Pt currently hypotensive, will need very cautious diuretics Cardiology consulted, appreciate recs. -case discussed with Dr Greco who recommended midodrine with diuresis -midodrine 2.5mg TID ordered, titrate dose as needed -IV lAsix once BP improves -holding home lasix 40mg daily (dose was increased on 08/11/24) Pulmonology consulted for possible thoracentesis as well, appreciate recs Oxygen supplementation as needed Continue to monitor /6 echocardiogram: Pending Lasix 20 mg IV twice daily ordered together with midodrine 5 mg p.o. 3 times daily Appreciate cardiology service recommendations 4/7 for thoracentesis today current 600 mL of bloody fluid removed pleural fluid studies: Pending Pleural fluid culture: Pending holding Lasix 20 mg IV twice daily, with midodrine 5 mg p.o. 3 times daily Continue digoxin Monitor closely Atrial Fibrillation s/p TAVR Pt on metoprolol 25mg daily with digoxin 125mcg MWF Not on anticoagulation due multiple contraindications Bilateral lower extremity edema likely secondary to CHF exacerbation Associated with some erythema and warmth trial of Lasix IV -- seems to be improving with diuresis Hold off on antibiotics Ascites Pt with noted ascites on CT chest No known diagnosis of cirrhosis Consider dedicated imaging of the abdomen Diuresis as above Consider GI consult 08/28 no abdominal distention Monitor LFTs Chronic alcohol use Thrombocytopenia Frequent falls and pt with poor memory of what happened Alcohol level pending Thrombocytopenia chronic likely in the setting of chronic alcohol use AWSS at risk protocol Monitor for signs of withdrawal 08/28 When asked, patient reports last drink of alcohol was more than a week ago States he only consumes alcohol about once a month No signs of overt withdrawal at this time Platelets stable around 100 K Monitor closely Elevated Troponin Trop elevated at 76.9 and 82.1, third set 79.5 EKG with known atrial fibrillation Repeat Echo pending Likely elevated in demand setting Multinodular Goiter Noted on imaging TSH normal Continue home levothyroxine Outpt followup Skin Wounds Pt with multiple scratches and skin wounds on lower extremities and face Notes dogs at home that scratch Wound care consult Hx of sternal chondrosarcoma s/p sternotomy Pt nots she was told she should not have CPR as a result of her sternotomy so she is a DNR However she would like defib if needed as well as intubation Continue other home meds as ordered Diet: HH DVT prophylaxis: SCDs in the setting of thrombocytopenia, hematoma Dispo: pending Lives at home Will order PT and OT eval Admission and Anticipated Discharge Date Admission Date: August 27, 2024 Subjective follow-up for CHF etc. Seen resting in bed, comfortable, not in distress States she feels okay overall No shortness of breath, chest pain, palpitations, dizziness No abdominal pain no headache, focal neurologic symptoms denies visual symptoms or deficits No other new symptoms Review of Systems Review of Systems: all noted and negative except for above Physical Exam Physical Exam: General- oriented x 3, not in distress, speaks in sentences with no effort or accessory muscle use Eyes- mild to moderate periorbital edema, improving, periorbital hematoma, improving Neck- no JVD Lungs- mild rales at the bases Heart- normal rate, regular rhythm; positive holosystolic murmur Abdomen- normal bowel sounds, nondistended, soft, nontender Extremities- trace bilateral extremity edema with moderate erythema and mild warmth, no tenderness Neuro- alert, oriented x 3; no gross focal neurologic deficits Skin- warm & dry Results & Data Results & Data Vital Signs (Past 12 Hours) Vital Signs Temp Pulse Pulse Resp BP Pulse Ox O2 Del Method 08/29/24 15:54 36.3 C L 104 H 18 92/64 L 90 Nasal Cannula 08/29/24 15:46 104 H 08/29/24 11:33 98/65 L 08/29/24 10:37 36.5 C 96 H 20 116/76 97 Room Air 08/29/24 08:17 74 08/29/24 07:52 36.5 C 91 H 16 109/78 98 Room Air 08/29/24 07:42 Nasal Cannula O2 Flow Rate 08/29/24 15:54 2 08/29/24 15:46 08/29/24 11:33 08/29/24 10:37 08/29/24 08:17 08/29/24 07:52 08/29/24 07:42 2 all noted and reviewed including below (1) Traumatic periorbital ecchymosis Encounter type: subsequent encounter Laterality: left Qualified Code(s): S05.12XD - Contusion of eyeball and orbital tissues, left eye, subsequent encounter (2) Facial contusion Encounter type: subsequent encounter Qualified Code(s): S00.83XD - Contusion of other part of head, subsequent encounter
[2024-08-29] MEDS: MESALAMINE 1.2 GM TABDR PO SCH (18:23)
--- NOTE | 2024-08-30 07:23 | Pulmonology Progress Note ---
Date of Service August 30, 2024 Assessment & Plan (1) Bilateral pleural effusion: (2) Secondary pulmonary arterial hypertension: Plan Impression: 84-year-old female with complex medical history admitted status post fall found to have bilateral pleural effusions left greater than right. Recommendations: 1. Pleural effusion: Status post thoracentesis with 600 mL of drainage yesterday. Fluid appears lymphocytic predominant with negative Gram stain initially. Cytology pending. These can be followed up with primary service and/or in the outpatient setting. Otherwise, patient is doing well and no further intervention necessary at this time. Continue gentle diuresis as to lerated. 2. Hypoxemia: Resolved. Saturating well on room air. 3. Management of the patient's other medical issues per primary admitting service. Thank you for allowing us to participate in the care of this pleasant patient. Pulmonary medicine will sign off at this time. Admission and Anticipated Discharge Date Admission Date: August 27, 2024 Supervising Physician Co-Signing Physician Notes Seen and examined. EMR reviewed. Discussed with JULIA. Agree with assessment plan as noted. Pulmonary will sign off. Feel free to contact us with questions or concerns Subjective Patient seen and evaluated at bedside. She notes no significant change in her breathing. She is not struggling. No complaints of chest pain or palpitations. No pleuritic discomfort. No hemoptysis. She is anxious to be discharged home. Review of Systems Review of Systems: Per subjective Physical Exam Constitutional: WD/WN, vitals as above Neck: trachea midline, no thyromegaly Respiratory: + tachypneic; no labored breathing and n o cough Auscultation: + diminished lung sounds Decreased breath sounds at the left lung base with dullness to percussion Cardiovascular: RRR, no murmur, no edema Gastrointestinal (Abdomen): normal bowel sounds, soft, nontender, no hepatosplenomegaly Musculoskeletal: Extremities: extremities normal to inspection Skin: no rashes, warm and dry Neurologic: Nonfocal exam Lymphatic: no cervical lymphadenopathy Results & Data Results & Data Vital Signs (Past 12 Hours) Vital Signs Temp Pulse Pulse Resp BP BP Pulse Ox 08/30/24 07:11 36.2 C L 100 H 20 90/61 L 90 08/30/24 02:46 36.5 C 92 H 16 94/61 L 91 08/29/24 22:39 36.5 C 100 H 16 104/70 91 08/29/24 22:00 99 H 08/29/24 20:20 08/29/24 19:30 36.6 C 100 H 18 100/68 91 O2 Del Method O2 Flow Rate 08/30/24 07:11 Room Air 08/30/24 02:46 Room Air 08/29/24 22:39 Nasal Cannula 1 08/29/24 22:00 08/29/24 20:20 Room Air 08/29/24 19:30 Room Air PG Care Time/CCT Total # of Minutes Spent Total Time Spent with Patient: Total time spent is greater than 50% in coordination of care (as documented) at patient's floor/unit and/or counseling patient: Coding Level of Care Code 95958 SUB INP/OBS CARE 2/35MIN Diagnoses Bilateral pleural effusion J90 Secondary pulmonary arterial hypertension I27.21
[2024-08-30] MEDS: DIGOXIN 0.125 MG TAB PO SCH (08:14)
[2024-08-30] MEDS ORDERED: MESALAMINE 1.2 GM TABDR PO SCH (09:00)
[2024-08-30 11:50] LABS: Basophils # (auto) 0.05 K/uL (0.00-0.20); Basophils % (auto) 1.2 %; Eosinophils # (auto) 0.01 K/uL (0.00-0.50); Eosinophils % (auto) 0.2 %; Hematocrit (blood only) 39.7 % (37.0-47.0); Hemoglobin 12.8 g/dl (12.0-16.0); Immature Granulocytes # (auto) 0.02 K/uL (0.01-0.20); Immature Granulocytes % (auto) 0.5 %; Lymphocytes # (auto) 0.94 K/uL (1.20-3.40); Lymphocytes % (auto) 22.7 %; Mean Corpuscular Hemoglobin 32.1 pg (25.0-34.0); Mean Corpuscular Hgb Conc 32.2 g/dL (32.0-36.0); Mean Corpuscular Volume 99.5 fL (80.0-100.0); Monocytes # (auto) 0.56 K/uL (0.11-0.59); Monocytes % (auto) 13.5 %; Neutrophils # (auto) 2.56 K/uL (1.40-6.50); Neutrophils % (auto) 61.9 %; Platelet Count 112 K/uL (130-400); RDW Coefficient of Variation 16.2 % (11.5-14.5); RDW Standard Deviation 59.7 fL (36.4-46.3); Red Blood Count 3.99 M/uL (4.20-5.40); White Blood Count 4.14 K/ul (4.8-10.8)
[2024-08-30 12:08] LABS: Creatinine Clr Calc Pharmacy 38.8 ml/min; Magnesium 2.1 mg/dl (1.7-2.4); Potassium 4.5 mmol/L (3.5-5.1)
--- NOTE | 2024-08-30 13:16 | Cardiology Progress Note ---
Date of Service August 30, 2024 Assessment & Plan (1) Acute on chronic heart failure with preserved ejection fraction (HFpEF): (2) Fall: (3) Bilateral pleural effusion: (4) Chronic hypotension: Plan 84-year-old female with past medical history of HFpEF, aortic stenosis s/p AVR and s/p TAVR valve in valve in 2022, paroxysmal atrial flutter (not on AC due to history of bleeding), COPD, sternal chondrosarcoma s/p resection, who presented to ED after unwitnessed fall at home, frequent falls over last week. Also noted to have significant lower extremity edema at home. - BNP elevated, chest CT with bilateral pleural effusions, clinical picture suggestive of acute on chronic HFpEF - start furosemide IV 20 mg twice daily - increase midodrine to 5 mg TID - continue metoprolol succinate and digoxin - continue to monitor on telemetry - repeat echo pending - strict I and Os, daily weights 08/29/2024 Very complex 84-year-old female admitted after mechanical fall and facial injury increased lower extremity edema per reports on exam Patient with multi valvular heart disease as well as severe pulmonary hypertension secondary to left-sided issues as well as right-sided concerns. Patient wears oxygen sporadically at home Very preload dependent given Severe pulmonary hypertension Thoracentesis planned today Will hold IV furosemide after dose this evening. Recheck renal function in a.m. Prior Entresto use resulted in profound hypotension and hyperkalemia Could consider Entresto though potassium climbing Atrial fibrillation rates controlled adequately. Anticoagulation contraindicated 08/30/2024 Patient issues addressed as follows 1. Mechanical fall with facial contusion 2. Chronic diastolic/right heart failure/valvular heart disease 3. Pulmonary hypertension secondary to valvular heart disease and as well as underlying pulmonary issues status post sternal resection. Pulmonary hypertension present with patient with chronic right heart failure Recommendations: Discontinue IV furosemide persistent lower extremity midnight likely to completely resolve. Will resume oral dosing Patient not receiving metoprolol due to low blood pressures we will separate dosing to 12.5 mg twice per day and reduce BP parameters. Needs heart rate controlled for hemodynamic stability Admission and Anticipated Discharge Date Admission Date: August 27, 2024 Subjective Patient seen and examined, chart, medications, telemetry reviewed Clinically improved following thoracentesis yesterday. Better oxygenation on room air Heart rate elevated but not receiving metoprolol due to marginal blood pressures. Physical Exam Constitutional: + ill appearing and + thin; no acute dis tress Neck: trachea midline, no thyromegaly Cardiovascular: Rate/Rhythm: + irregularly irregular Vessels: no JVD Extremities: + edema Gastrointestinal (Abdomen): normal bowel sounds, soft, nontender, no hepatosplenomegaly Results & Data Vital Signs (Past 12 Hours) Vital Signs Temp Pulse Pulse Resp BP BP Pulse Ox 08/30/24 11:38 36.7 C 104 H 20 93/66 L 94 08/30/24 09:03 100 H 08/30/24 08:14 95 H 08/30/24 07:42 08/30/24 07:11 36.2 C L 100 H 20 90/61 L 90 08/30/24 02:46 36.5 C 92 H 16 94/61 L 91 O2 Del Method 08/30/24 11:38 Room Air 08/30/24 09:03 08/30/24 08:14 08/30/24 07:42 Room Air 08/30/24 07:11 Room Air 08/30/24 02:46 Room Air Laboratory Results Laboratory Results - last 24 hr 08/29/24 08/30/24 Unknown 11:23 WBC 4.14 L RBC 3.99 L Hgb 12.8 Hct 39.7 MCV 99.5 MCH 32.1 MCHC 32.2 RDW Std Deviation 59.7 H RDW Coeff of Brendon 16.2 H Plt Count 112 L MPV 10.0 Immature Gran % (Auto) 0.5 Neut % (Auto) 61.9 Lymph % (Auto) 22.7 [place] % (Auto) 13.5 Eos % (Auto) 0.2 Baso % (Auto) 1.2 Neut # (Auto) 2.56 Lymph # (Auto) 0.94 L [place] # (Auto) 0.56 Eos # (Auto) 0.01 Baso # (Auto) 0.05 Immature Gran # (Auto) 0.02 Sodium 135 L Potassium 4.5 Chloride 95 L Carbon Dioxide 38 H Anion Gap 2 L BUN 34 H Creatinine 1.03 Est Cr Clr Drug Dosing 38.8 eGFR 53.28 BUN/Creatinine Ratio 33.0 H Glucose 84 Calcium 9.0 Magnesium 2.1 Fluid Neutrophils % 2 Fluid Lymphocytes % 62 Fluid Meso/Macro/[place]ion % 36 (2) Fall Encounter type: subsequent encounter Qualified Code(s): W19.XXXD - Unspecified fall, subsequent encounter
--- NOTE | 2024-08-30 16:44 | Hospitalist Progress Note ---
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 Fall Scalp and facial contusions Traumatic periorbital ecchymosis Left eye conjunctivitis Pt unsure of details Family notes that she has been having frequent falls, lives alone, unsure how long she was on the ground Pt with swollen and bruised eyelids On aspirin at home Head CT and Face CT noting large scalp and facial contusions but no acute fracture Cervical spine CT and chest CT without acute fracture/acute trauma signs Hold home aspirin, on it 3x a week OMFS consult for contusions and impressive facial traumatic changes Erythromycin ointment to L eye PT/OT 08/30 No neurologic deficits No visual deficits CP K within normal limits no surgical procedures indicated, Appreciate Dr. Peguero's recommendations facial edema, periorbital hematoma improving Aspirin on hold Acute on Chronic Congestive heart failure Acute on Chronic hypoxic respiratory failure Pt unsure if she has taken her daily diuretic States she uses oxygen at home, 2L nightly Chest XR concerning for Left greater than right small pleural effusions CT chest noting mild interstitial pulmonary edema, small right and moderate left pleural effusions. Repeat echo pending VBG ordered and pending BNP pending Pt currently hypotensive, will need very cautious diuretics Cardiology consulted, appreciate recs. -case discussed with Dr Greco who recommended midodrine with diuresis -midodrine 2.5mg TID ordered, titrate dose as needed -IV lAsix once BP improves -holding home lasix 40mg daily (dose was increased on 08/11/24) Pulmonology consulted for possible thoracentesis as well, appreciate recs Oxygen supplementation as needed Continue to monitor 08/28 echocardiogram: Pending Lasix 20 mg IV twice daily ordered together with midodrine 5 mg p.o. 3 times daily Appreciate cardiology service recommendations 08/29 s/p thoracentesis today current 600 mL of bloody fluid removed pleural fluid studies: Pending Pleural fluid culture: Pending 08/30 improving overall Currently on room air Per cardiology: Discontinue IV furosemide persistent lower extremity midnight likely to completely resolve. Will resume oral dosing Patient not receiving metoprolol due to low blood pressures we will separate dosing to 12.5 mg twice per day and reduce BP parameters. Needs heart rate controlled for hemodynamic stability -- Also started on midodrine 5 mg p.o. 3 times daily since admission for blood pressure support Atrial Fibrillation s/p TAVR Pt on metoprolol 25mg daily with digoxin 125mcg MWF Not on anticoagulation due multiple contraindications Bilateral lower extremity edema mostly secondary to CHF exacerbation Associated with some erythema and warmth trial of Lasix IV -- seems to be improving with diuresis Hold off on antibiotics Ascites Pt with noted ascites on CT chest No known diagnosis of cirrhosis Consider dedicated imaging of the abdomen Diuresis as above 08/30 no abdominal distention Monitor LFTs Chronic alcohol use Thrombocytopenia Frequent falls and pt with poor memory of what happened Alcohol level negative Thrombocytopenia chronic likely in the setting of chronic alcohol use AWSS at risk protocol When sasked, patient reports last drink of alcohol was more than a week ago States he only consumes alcohol about once a month No signs of overt withdrawal at this time Platelets stable around 100 K Monitor closely Pancytopenia WBC 4K Hemoglobin 12K Platelet count around 100k CBC stable since admission Elevated Troponin demand ischemia Trop elevated at 76.9 and 82.1, third set 79.5 EKG with known atrial fibrillation Multinodular Goiter Noted on imaging TSH normal Continue home levothyroxine Outpt followup Skin Wounds Pt with multiple scratches and skin wounds on lower extremities and face Notes dogs at home that scratch Wound care consult Hx of sternal chondrosarcoma s/p sternotomy Pt nots she was told she should not have CPR as a result of her sternotomy so she is a DNR However she would like defib if needed as well as intubation Continue other home meds as ordered Diet: HH DVT prophylaxis: SCDs in the setting of thrombocytopenia, hematoma Dispo: pending Lives at home PT and OT eval may need acute aleisha/SNF Admission and Anticipated Discharge Date Admission Date: August 27, 2024 Subjective follow-up for CHF, hypertension, etc. Seen resting in bedSide chair, comfortable, not in distress on room air states she feels fine overall Denies shortness of breath, chest pain Denies abdominal pain, nausea Denies pain in her body No other new symptom Review of Systems Review of Systems: all noted and negative except for above Physical Exam Physical Exam: General- oriented x 3, not in distress, speaks in sentences with no effort or accessory muscle use Eyes- periorbital hematoma and edema improving Neck- no JVD Lungs- mild rales bilateral bases Heart- normal rate, regular rhythm; no murmurs Abdomen- normal bowel sounds, nondistended, soft, nontender Extremities- mild pretibial edema, mild erythema bilaterally Neuro- alert, oriented x 3; no gross focal neurologic deficits Skin- warm & dry Results & Data Results & Data Vital Signs (Past 12 Hours) Vital Signs Temp Pulse Pulse Resp BP Pulse Ox O2 Del Method 08/30/24 15:30 36.8 C 103 H 22 101/72 94 Room Air 08/30/24 14:36 102 H 08/30/24 11:38 36.7 C 104 H 20 93/66 L 94 Room Air 08/30/24 09:03 100 H 08/30/24 08:14 95 H 08/30/24 07:42 Room Air 08/30/24 07:11 36.2 C L 100 H 20 90/61 L 90 Room Air all noted and reviewed including below (1) Traumatic periorbital ecchymosis Encounter type: subsequent encounter Laterality: left Qualified Code(s): S05.12XD - Contusion of eyeball and orbital tissues, left eye, subsequent encounter (2) Facial contusion Encounter type: subsequent encounter Qualified Code(s): S00.83XD - Contusion of other part of head, subsequent encounter
[2024-08-30] MEDS: METOPROLOL SUCC 25MG EXT REL TAB PO SCH (20:04)
[2024-08-31 06:23] LABS: Basophils # (auto) 0.05 K/uL (0.00-0.20); Basophils % (auto) 1.1 %; Eosinophils # (auto) 0.01 K/uL (0.00-0.50); Eosinophils % (auto) 0.2 %; Hemoglobin 12.7 g/dl (12.0-16.0); Immature Granulocytes # (auto) 0.03 K/uL (0.01-0.20); Immature Granulocytes % (auto) 0.6 %; Lymphocytes # (auto) 1.08 K/uL (1.20-3.40); Mean Corpuscular Hemoglobin 32.3 pg (25.0-34.0); Mean Corpuscular Hgb Conc 33.4 g/dL (32.0-36.0); Mean Corpuscular Volume 96.7 fL (80.0-100.0); Mean Platelet Volume 9.7 fL (9.4-12.4); Monocytes # (auto) 0.54 K/uL (0.11-0.59); Monocytes % (auto) 11.5 %; Neutrophils # (auto) 2.99 K/uL (1.40-6.50); Neutrophils % (auto) 63.6 %; Platelet Count 108 K/uL (130-400); RDW Coefficient of Variation 16.1 % (11.5-14.5); RDW Standard Deviation 57.2 fL (36.4-46.3); Red Blood Count 3.93 M/uL (4.20-5.40)
[2024-08-31 06:44] LABS: BUN Creatinine Ratio 37.5 (10-20); Magnesium 2.1 mg/dl (1.7-2.4); Potassium 4.6 mmol/L (3.5-5.1)
[2024-08-31] MEDS: FUROSEMIDE 40 MG TAB PO SCH (09:38)
--- NOTE | 2024-08-31 11:28 | Cardiology Progress Note ---
Date of Service August 31, 2024 Assessment & Plan (1) Acute on chronic heart failure with preserved ejection fraction (HFpEF): (2) Fall: (3) Bilateral pleural effusion: (4) Chronic hypotension: Plan 84-year-old female with past medical history of HFpEF, aortic stenosis s/p AVR and s/p TAVR valve in valve in 2022, paroxysmal atrial flutter (not on AC due to history of bleeding), COPD, sternal chondrosarcoma s/p resection, who presented to ED after unwitnessed fall at home, frequent falls over last week. Also noted to have significant lower extremity edema at home. - BNP elevated, chest CT with bilateral pleural effusions, clinical picture suggestive of acute on chronic HFpEF - start furosemide IV 20 mg twice daily - increase midodrine to 5 mg TID - continue metoprolol succinate and digoxin - continue to monitor on telemetry - repeat echo pending - strict I and Os, daily weights 08/29/2024 Very complex 84-year-old female admitted after mechanical fall and facial injury increased lower extremity edema per reports on exam Patient with multi valvular heart disease as well as severe pulmonary hypertension secondary to left-sided issues as well as right-sided concerns. Patient wears oxygen sporadically at home Very preload dependent given Severe pulmonary hypertension Thoracentesis planned today Will hold IV furosemide after dose this evening. Recheck renal function in a.m. Prior Entresto use resulted in profound hypotension and hyperkalemia Could consider Entresto though potassium climbing Atrial fibrillation rates controlled adequately. Anticoagulation contraindicated 08/30/2024 Patient issues addressed as follows 1. Mechanical fall with facial contusion 2. Chronic diastolic/right heart failure/valvular heart disease 3. Pulmonary hypertension secondary to valvular heart disease and as well as underlying pulmonary issues status post sternal resection. Pulmonary hypertension present with patient with chronic right heart failure Recommendations: Discontinue IV furosemide persistent lower extremity midnight likely to completely resolve. Will resume oral dosing Patient not receiving metoprolol due to low blood pressures we will separate dosing to 12.5 mg twice per day and reduce BP parameters. Needs heart rate controlled for hemodynamic stability 08/31/2024 Cardiac status clinically stable prior evaluation as noted above and patient tolerating current medications. Continue midodrine, daily dose of furosemide and split dose of metoprolol succinate Once again urged patient with caution on sudden standing and movement. Patient aware of impulsive nature to her activities Admission and Anticipated Discharge Date Admission Date: August 27, 2024 Subjective Patient seen and examined, telemetry reviewed. No acute complaints. Blood pressure good today on current therapies heart rate trending lower with now taking metoprolol succinate Physical Exam Constitutional: + ill appearing and + thin; no acute dis tress Neck: trachea midline, no thyromegaly Cardiovascular: Rate/Rhythm: + irregularly irregular Vessels: no JVD Extremities: + edema Gastrointestinal (Abdomen): normal bowel sounds, soft, nontender, no hepatosplenomegaly Results & Data Vital Signs (Past 12 Hours) Vital Signs Temp Pulse Pulse Resp BP Pulse Ox O2 Del Method 08/31/24 11:08 36.5 C 95 H 20 103/71 97 Room Air 08/31/24 09:53 102 H 08/31/24 08:15 36.6 C 99 H 20 104/66 92 Room Air 08/31/24 07:27 Room Air 08/31/24 03:04 36.6 C 100 H 18 106/74 94 Room Air Laboratory Results Laboratory Results - last 24 hr 08/30/24 08/31/24 11:23 05:28 WBC 4.14 L 4.70 L RBC 3.99 L 3.93 L Hgb 12.8 12.7 Hct 39.7 38.0 MCV 99.5 96.7 MCH 32.1 32.3 MCHC 32.2 33.4 RDW Std Deviation 59.7 H 57.2 H RDW Coeff of Brendon 16.2 H 16.1 H Plt Count 112 L 108 L MPV 10.0 9.7 Immature Gran % (Auto) 0.5 0.6 Neut % (Auto) 61.9 63.6 Lymph % (Auto) 22.7 23.0 [place] % (Auto) 13.5 11.5 Eos % (Auto) 0.2 0.2 Baso % (Auto) 1.2 1.1 Neut # (Auto) 2.56 2.99 Lymph # (Auto) 0.94 L 1.08 L [place] # (Auto) 0.56 0.54 Eos # (Auto) 0.01 0.01 Baso # (Auto) 0.05 0.05 Immature Gran # (Auto) 0.02 0.03 Sodium 135 L 135 L Potassium 4.5 4.6 Chloride 95 L 96 L Carbon Dioxide 38 H 35 H Anion Gap 2 L 4 BUN 34 H 30 H Creatinine 1.03 0.80 Est Cr Clr Drug Dosing 38.8 50.0 eGFR 53.28 72.16 BUN/Creatinine Ratio 33.0 H 37.5 H Glucose 84 80 Calcium 9.0 9.0 Phosphorus 3.0 Magnesium 2.1 2.1 (2) Fall Encounter type: subsequent encounter Qualified Code(s): W19.XXXD - Unspecified fall, subsequent encounter
--- NOTE | 2024-08-31 19:00 | Hospitalist Progress Note ---
Date of Service August 31, 2024 Assessment & Plan (1) Traumatic periorbital ecchymosis: (2) Facial contusion: Plan per previous hospitalist notes with addendum: Pt is an 84yoF with PMhx significant for chronic diastolic heart failure, valvular heart disease (mild to moderate MR, severe TR), pulmonary hypertension, PAF, bioprosthetic AVR stenosis status post surgery, PVD, COPD, RLS, Crohn's disease, meningioma status post gamma knife surgery, 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 Fall Scalp and facial contusions Traumatic periorbital ecchymosis Left eye conjunctivitis Pt unsure of details Family notes that she has been having frequent falls, lives alone, unsure how long she was on the ground Pt with swollen and bruised eyelids On aspirin at home Head CT and Face CT noting large scalp and facial contusions but no acute fracture Cervical spine CT and chest CT without acute fracture/acute trauma signs Hold home aspirin, on it 3x a week OMFS consult for contusions and impressive facial traumatic changes Erythromycin ointment to L eye PT/OT 08/30 No neurologic deficits No visual deficits CP K within normal limits no surgical procedures indicated, Appreciate Dr. Peguero's recommendations facial edema, periorbital hematoma improving Aspirin on hold Acute on Chronic Congestive heart failure Acute on Chronic hypoxic respiratory failure Pt unsure if she has taken her daily diuretic States she uses oxygen at home, 2L nightly Chest XR concerning for Left greater than right small pleural effusions CT chest noting mild interstitial pulmonary edema, small right and moderate left pleural effusions. Repeat echo VBG ordered BNP Pt currently hypotensive, will need very cautious diuretics Cardiology consulted, appreciate recs. -case discussed with Dr Greco who recommended midodrine with diuresis -midodrine 2.5mg TID ordered, titrate dose as needed -IV lAsix once BP improves -holding home lasix 40mg daily (dose was increased on 08/11/24) Pulmonology consulted for possible thoracentesis as well, appreciate recs Oxygen supplementation as needed Continue to monitor 08/28 echocardiogram: Pending Lasix 20 mg IV twice daily ordered together with midodrine 5 mg p.o. 3 times daily Appreciate cardiology service recommendations 08/29 s/p thoracentesis today current 600 mL of bloody fluid removed pleural fluid studies: Pending Pleural fluid culture: Pending 08/30 improving overall Currently on room air Per cardiology: Discontinue IV furosemide persistent lower extremity midnight likely to completely resolve. Will resume oral dosing Patient not receiving metoprolol due to low blood pressures we will separate dosing to 12.5 mg twice per day and reduce BP parameters. Needs heart rate controlled for hemodynamic stability -- Also started on midodrine 5 mg p.o. 3 times daily since admission for blood pressure support Atrial Fibrillation s/p TAVR Pt on metoprolol 25mg daily with digoxin 125mcg MWF Not on anticoagulation due multiple contraindications Per cardiology - Cardiac status clinically stable, patient tolerating current medications. Continue midodrine, daily dose of furosemide and split dose of metoprolol succinate Bilateral lower extremity edema mostly secondary to CHF exacerbation Associated with some erythema and warmth trial of Lasix IV -- seems to be improving with diuresis Hold off on antibiotics Ascites Pt with noted ascites on CT chest No known diagnosis of cirrhosis Consider dedicated imaging of the abdomen Diuresis as above 08/30 no abdominal distention Monitor LFTs Chronic alcohol use Thrombocytopenia Frequent falls and pt with poor memory of what happened Alcohol level negative Thrombocytopenia chronic likely in the setting of chronic alcohol use AWSS at risk protocol When asked, patient reports last drink of alcohol was more than a week ago States she only consumes alcohol about once a month No signs of overt withdrawal at this time Platelets stable around 100 K Monitor closely Pancytopenia WBC 4K Hemoglobin 12K Platelet count around 100k CBC stable since admission Elevated Troponin demand ischemia Trop elevated at 76.9 and 82.1, third set 79.5 EKG with known atrial fibrillation Multinodular Goiter Noted on imaging TSH normal Continue home levothyroxine Outpt followup Skin Wounds Pt with multiple scratches and skin wounds on lower extremities and face Notes dogs at home that scratch Wound care consult Hx of sternal chondrosarcoma s/p sternotomy Pt nots she was told she should not have CPR as a result of her sternotomy so she is a DNR However she would like defib if needed as well as intubation Continue other home meds as ordered Diet: HH DVT prophylaxis: SCDs in the setting of thrombocytopenia, hematoma Dispo: pending Lives at home PT and OT eval may need acute rehab/SNF Admission and Anticipated Discharge Date Admission Date: August 27, 2024 Subjective Follow-up for CHF, hypertension, etc. Seen resting in bed, comfortable, not in distress on room air states she feels well overall Denies shortness of breath, chest pain Denies abdominal pain, nausea Denies pain in her body No other new symptom Review of Systems Review of Systems: All systems reviewed & are unremarkable except as noted in Subjective Physical Exam Physical Exam: General- oriented x 3, not in distress, speaks in sentences with no effort or accessory muscle use Eyes- periorbital hematoma and edema improving Neck- no JVD Lungs- mild rales bilateral bases Heart- normal rate, regular rhythm; no murmurs Abdomen- normal bowel sounds, nondistended, soft, nontender Extremities- mild pretibial edema, mild erythema bilaterally Neuro- alert, oriented x 3; no gross focal neurologic deficits Skin- warm & dry Results & Data Results & Data Vital Signs (Past 12 Hours) Vital Signs Temp Pulse Pulse Resp BP Pulse Ox O2 Del Method 08/31/24 15:25 36.4 C L 100 H 20 107/68 100 Nasal Cannula 08/31/24 14:12 100 H 08/31/24 11:08 36.5 C 95 H 20 103/71 97 Room Air 08/31/24 09:53 102 H 08/31/24 08:15 36.6 C 99 H 20 104/66 92 Room Air 08/31/24 07:27 Room Air O2 Flow Rate 08/31/24 15:25 2 08/31/24 14:12 08/31/24 11:08 08/31/24 09:53 08/31/24 08:15 08/31/24 07:27 Laboratory Results 08/31/24 Range/Units 05:28 WBC 4.70 L (4.8-10.8) K/ul RBC 3.93 L (4.20-5.40) M/uL Hgb 12.7 (12.0-16.0) g/dl Hct 38.0 (37.0-47.0) % MCV 96.7 (80.0-100.0) fL MCH 32.3 (25.0-34.0) pg MCHC 33.4 (32.0-36.0) g/dL RDW Std Deviation 57.2 H (36.4-46.3) fL RDW Coeff of Brendon 16.1 H (11.5-14.5) % Plt Count 108 L (130-400) K/uL MPV 9.7 (9.4-12.4) fL Immature Gran % (Auto) 0.6 % Neut % (Auto) 63.6 % Lymph % (Auto) 23.0 % [place] % (Auto) 11.5 % Eos % (Auto) 0.2 % Baso % (Auto) 1.1 % Neut # (Auto) 2.99 (1.40-6.50) K/uL Lymph # (Auto) 1.08 L (1.20-3.40) K/uL [place] # (Auto) 0.54 (0.11-0.59) K/uL Eos # (Auto) 0.01 (0.00-0.50) K/uL Baso # (Auto) 0.05 (0.00-0.20) K/uL Immature Gran # (Auto) 0.03 (0.01-0.20) K/uL Sodium 135 L (136-145) mmol/L Potassium 4.6 (3.5-5.1) mmol/L Chloride 96 L (98-107) mmol/L Carbon Dioxide 35 H (21-32) mmol/L Anion Gap 4 (3-11) BUN 30 H (6-23) mg/dl Creatinine 0.80 (0.6-1.2) mg/dl Est Cr Clr Drug Dosing 50.0 ml/min eGFR 72.16 BUN/Creatinine Ratio 37.5 H (10-20) Glucose 80 (70-99(Fasting)) mg/dl Calcium 9.0 (8.6-10.3) mg/dl Phosphorus 3.0 (2.5-4.9) mg/dl Magnesium 2.1 (1.7-2.4) mg/dl Medications Administered Current Inpatient Medications Acetaminophen (Acetaminophen 500 Mg Tab) 1,000 mg PO TID PRN PRN Reason: Mild-Mod Pain (Scale 1-6) Stop: 09/26/24 18:16 Last Admin: 08/31/24 15:00 Dose: 1,000 mg Albuterol (Albuterol Hfa 8 Gm Inhaler) 2 puffs INH Q4H PRN PRN Reason: Shortness Of Breath Or Wheezing Stop: 09/26/24 17:58 Cetirizine HCl (Cetirizine Hcl 10 Mg Tablet) 10 mg PO DAILY SALLY Stop: 09/27/24 08:59 Last Admin: 08/31/24 08:21 Dose: 10 mg Cyanocobalamin (Cyanocobalamin (B-12) 500 Mcg Tablet) 1,000 mcg PO DAILY SALLY Stop: 09/27/24 08:59 Last Admin: 08/31/24 08:21 Dose: 1,000 mcg Digoxin (Digoxin 0.125 Mg Tab) 0.125 mg PO TuThSa@0900 SALLY Stop: 09/29/24 08:59 Last Admin: 08/30/24 08:14 Dose: 0.125 mg Erythromycin (Erythromycin Op Oint 5 Mg/Gm 3.5 Gm Tube) 1 appln OPL BID SALLY Stop: 09/06/24 20:59 Last Admin: 08/31/24 08:22 Dose: 1 appln Folic Acid (Folic Acid 400 Mcg Tab) 400 mcg PO DAILY SALLY Stop: 09/27/24 08:59 Last Admin: 08/31/24 08:21 Dose: 400 mcg Furosemide (Furosemide 40 Mg Tab) 40 mg PO QAM SALLY Stop: 09/30/24 08:59 Last Admin: 08/31/24 09:38 Dose: 40 mg Gabapentin (Gabapentin 100 Mg Cap) 100 mg PO DAILY SALLY Stop: 09/27/24 08:59 Last Admin: 08/31/24 08:20 Dose: 100 mg Levothyroxine Sodium (Levothyroxine Sodium 100 Mcg Tablet) 100 mcg PO DAILYBB SALLY Stop: 09/27/24 06:29 Last Admin: 08/31/24 06:15 Dose: 100 mcg Lorazepam (Lorazepam 2 Mg/1 Ml Vial) 1 mg IV ONE PRN; Protocol PRN Reason: EtoH Withdrawal AWSS 6-10 Mesalamine (Mesalamine 1.2 Gm Tabdr) 2.4 gm PO QAM SALLY Stop: 09/28/24 18:14 Last Admin: 08/31/24 08:19 Dose: 2.4 gm Metoprolol Succinate (Metoprolol Succ 25mg Ext Rel Tab) 12.5 mg PO BID SALLY Stop: 09/29/24 20:59 Last Admin: 08/31/24 08:20 Dose: 12.5 mg Midodrine (Midodrine Hcl 2.5 Mg Tab) 5 mg PO TID@0800,1200,1700 SALLY Stop: 09/27/24 16:59 Last Admin: 08/31/24 16:12 Dose: 5 mg (1) Traumatic periorbital ecchymosis Encounter type: subsequent encounter Laterality: left Qualified Code(s): S05.12XD - Contusion of eyeball and orbital tissues, left eye, subsequent encounter (2) Facial contusion Encounter type: subsequent encounter Qualified Code(s): S00.83XD - Contusion of other part of head, subsequent encounter
[2024-09-01 07:20] LABS: Hematocrit (blood only) 40.7 % (37.0-47.0); Hemoglobin 13.3 g/dl (12.0-16.0); Mean Corpuscular Hgb Conc 32.7 g/dL (32.0-36.0); Mean Corpuscular Volume 98.1 fL (80.0-100.0); Platelet Count 116 K/uL (130-400); RDW Coefficient of Variation 15.9 % (11.5-14.5); RDW Standard Deviation 57.5 fL (36.4-46.3); Red Blood Count 4.15 M/uL (4.20-5.40); White Blood Count 4.35 K/ul (4.8-10.8)
[2024-09-01 08:18] LABS: BUN Creatinine Ratio 36.1 (10-20); Calcium 9.3 mg/dl (8.6-10.3); Creatinine Clr Calc Pharmacy 48.2 ml/min; Magnesium 2.1 mg/dl (1.7-2.4); Phosphorus 3.7 mg/dl (2.5-4.9); Potassium 4.6 mmol/L (3.5-5.1)
--- NOTE | 2024-09-01 16:20 | Hospitalist Progress Note ---
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 Fall Scalp and facial contusions Traumatic periorbital ecchymosis Left eye conjunctivitis Pt unsure of details Family notes that she has been having frequent falls, lives alone, unsure how long she was on the ground Pt with swollen and bruised eyelids On aspirin at home Head CT and Face CT noting large scalp and facial contusions but no acute fracture Cervical spine CT and chest CT without acute fracture/acute trauma signs Hold home aspirin, on it 3x a week OMFS consult for contusions and impressive facial traumatic changes Erythromycin ointment to L eye PT/OT 08/30 No neurologic deficits No visual deficits CP K within normal limits no surgical procedures indicated, Appreciate Dr. Peguero's recommendations facial edema, periorbital hematoma improving Aspirin on hold Acute on Chronic Congestive heart failure Acute on Chronic hypoxic respiratory failure Pt unsure if she has taken her daily diuretic States she uses oxygen at home, 2L nightly Chest XR concerning for Left greater than right small pleural effusions CT chest noting mild interstitial pulmonary edema, small right and moderate left pleural effusions. Repeat echo VBG ordered BNP Pt currently hypotensive, will need very cautious diuretics Cardiology consulted, appreciate recs. -case discussed with Dr Greco who recommended midodrine with diuresis -midodrine 2.5mg TID ordered, titrate dose as needed -IV lAsix once BP improves -holding home lasix 40mg daily (dose was increased on 08/11/24) Pulmonology consulted for possible thoracentesis as well, appreciate recs Oxygen supplementation as needed Continue to monitor 08/28 echocardiogram: Pending Lasix 20 mg IV twice daily ordered together with midodrine 5 mg p.o. 3 times daily Appreciate cardiology service recommendations 08/29 s/p thoracentesis today current 600 mL of bloody fluid removed pleural fluid studies: Pending Pleural fluid culture: Pending 08/30 improving overall Currently on room air Per cardiology: Discontinue IV furosemide persistent lower extremity midnight likely to completely resolve. Will resume oral dosing Patient not receiving metoprolol due to low blood pressures we will separate dosing to 12.5 mg twice per day and reduce BP parameters. Needs heart rate controlled for hemodynamic stability -- Also started on midodrine 5 mg p.o. 3 times daily since admission for blood pressure support Atrial Fibrillation s/p TAVR Pt on metoprolol 25mg daily with digoxin 125mcg MWF Not on anticoagulation due multiple contraindications Per cardiology - Cardiac status clinically stable, patient tolerating current medications. Continue midodrine, daily dose of furosemide and split dose of metoprolol succinate Bilateral lower extremity edema mostly secondary to CHF exacerbation Associated with some erythema and warmth trial of Lasix IV -- seems to be improving with diuresis Hold off on antibiotics Ascites Pt with noted ascites on CT chest No known diagnosis of cirrhosis Consider dedicated imaging of the abdomen Diuresis as above 08/30 no abdominal distention Monitor LFTs Chronic alcohol use Thrombocytopenia Frequent falls and pt with poor memory of what happened Alcohol level negative Thrombocytopenia chronic likely in the setting of chronic alcohol use AWSS at risk protocol When asked, patient reports last drink of alcohol was more than a week ago States she only consumes alcohol about once a month No signs of overt withdrawal at this time Platelets stable around 100 K Monitor closely Pancytopenia WBC 4K Hemoglobin 12K Platelet count around 100k CBC stable since admission Elevated Troponin demand ischemia Trop elevated at 76.9 and 82.1, third set 79.5 EKG with known atrial fibrillation Multinodular Goiter Noted on imaging TSH normal Continue home levothyroxine Outpt followup Skin Wounds Pt with multiple scratches and skin wounds on lower extremities and face Notes dogs at home that scratch Wound care consult Hx of sternal chondrosarcoma s/p sternotomy Pt nots she was told she should not have CPR as a result of her sternotomy so she is a DNR However she would like defib if needed as well as intubation Continue other home meds as ordered Diet: HH DVT prophylaxis: SCDs in the setting of thrombocytopenia, hematoma Dispo: pending Lives at home PT and OT eval may need acute rehab/SNF Admission and Anticipated Discharge Date Admission Date: August 27, 2024 Subjective Follow-up for CHF, hypertension, etc. Seen resting in bed, comfortable, not in distress on room air states she feels well overall Denies shortness of breath, chest pain Denies abdominal pain, nausea Denies pain in her body No other new symptom Family (daughter) present yesterday at the bedside Review of Systems Review of Systems: All systems reviewed & are unremarkable except as noted in Subjective Physical Exam Physical Exam: General- oriented x 3, not in distress, speaks in sentences with no effort or accessory muscle use Eyes- periorbital hematoma and edema improving Neck- no JVD Lungs- mild rales bilateral bases Heart- normal rate, regular rhythm; no murmurs Abdomen- normal bowel sounds, nondistended, soft, nontender Extremities- mild pretibial edema, mild erythema bilaterally Neuro- alert, oriented x 3; no gross focal neurologic deficits Skin- warm & dry Results & Data Results & Data Vital Signs (Past 12 Hours) Vital Signs Temp Pulse Pulse Resp BP Pulse Ox O2 Del Method 09/01/24 15:36 36.7 C 76 17 119/82 99 Nasal Cannula 09/01/24 11:00 36.6 C 101 H 18 102/68 98 Nasal Cannula 09/01/24 10:47 90 09/01/24 08:21 89 09/01/24 08:18 Nasal Cannula 09/01/24 08:00 36.7 C 89 20 124/76 97 Nasal Cannula O2 Flow Rate 09/01/24 15:36 2 09/01/24 11:00 09/01/24 10:47 09/01/24 08:21 09/01/24 08:18 1 09/01/24 08:00 Laboratory Results 09/01/24 Range/Units 06:29 WBC 4.35 L (4.8-10.8) K/ul RBC 4.15 L (4.20-5.40) M/uL Hgb 13.3 (12.0-16.0) g/dl Hct 40.7 (37.0-47.0) % MCV 98.1 (80.0-100.0) fL MCH 32.0 (25.0-34.0) pg MCHC 32.7 (32.0-36.0) g/dL RDW Std Deviation 57.5 H (36.4-46.3) fL RDW Coeff of Brendon 15.9 H (11.5-14.5) % Plt Count 116 L (130-400) K/uL MPV 10.0 (9.4-12.4) fL Sodium 136 (136-145) mmol/L Potassium 4.6 (3.5-5.1) mmol/L Chloride 96 L (98-107) mmol/L Carbon Dioxide 35 H (21-32) mmol/L Anion Gap 5 (3-11) BUN 30 H (6-23) mg/dl Creatinine 0.83 (0.6-1.2) mg/dl Est Cr Clr Drug Dosing 48.2 ml/min eGFR 69.04 BUN/Creatinine Ratio 36.1 H (10-20) Glucose 77 (70-99(Fasting)) mg/dl Calcium 9.3 (8.6-10.3) mg/dl Phosphorus 3.7 (2.5-4.9) mg/dl Magnesium 2.1 (1.7-2.4) mg/dl Medications Administered Current Inpatient Medications Acetaminophen (Acetaminophen 500 Mg Tab) 1,000 mg PO TID PRN PRN Reason: Mild-Mod Pain (Scale 1-6) Stop: 09/26/24 18:16 Last Admin: 09/01/24 14:04 Dose: 1,000 mg Albuterol (Albuterol Hfa 8 Gm Inhaler) 2 puffs INH Q4H PRN PRN Reason: Shortness Of Breath Or Wheezing Stop: 09/26/24 17:58 Cetirizine HCl (Cetirizine Hcl 10 Mg Tablet) 10 mg PO DAILY [facility] Stop: 09/27/24 08:59 Last Admin: 09/01/24 08:21 Dose: 10 mg Cyanocobalamin (Cyanocobalamin (B-12) 500 Mcg Tablet) 1,000 mcg PO DAILY [facility] Stop: 09/27/24 08:59 Last Admin: 09/01/24 08:22 Dose: 1,000 mcg Digoxin (Digoxin 0.125 Mg Tab) 0.125 mg PO TuThSa@0900 [facility] Stop: 09/29/24 08:59 Last Admin: 09/01/24 08:21 Dose: 0.125 mg Erythromycin (Erythromycin Op Oint 5 Mg/Gm 3.5 Gm Tube) 1 appln OPL BID [facility] Stop: 09/06/24 20:59 Last Admin: 09/01/24 08:24 Dose: 1 appln Folic Acid (Folic Acid 400 Mcg Tab) 400 mcg PO DAILY [facility] Stop: 09/27/24 08:59 Last Admin: 09/01/24 08:21 Dose: 400 mcg Furosemide (Furosemide 40 Mg Tab) 40 mg PO QAM [facility] Stop: 09/30/24 08:59 Last Admin: 09/01/24 08:22 Dose: 40 mg Gabapentin (Gabapentin 100 Mg Cap) 100 mg PO DAILY [facility] Stop: 09/27/24 08:59 Last Admin: 09/01/24 08:22 Dose: 100 mg Levothyroxine Sodium (Levothyroxine Sodium 100 Mcg Tablet) 100 mcg PO DAILYBB [facility] Stop: 09/27/24 06:29 Last Admin: 09/01/24 06:15 Dose: 100 mcg Lorazepam (Lorazepam 2 Mg/1 Ml Vial) 1 mg IV ONE PRN; Protocol PRN Reason: EtoH Withdrawal AWSS 6-10 Mesalamine (Mesalamine 1.2 Gm Tabdr) 2.4 gm PO QAM [facility] Stop: 09/28/24 18:14 Last Admin: 09/01/24 08:23 Dose: 2.4 gm Metoprolol Succinate (Metoprolol Succ 25mg Ext Rel Tab) 12.5 mg PO BID [facility] Stop: 09/29/24 20:59 Last Admin: 09/01/24 08:22 Dose: 12.5 mg Midodrine (Midodrine Hcl 2.5 Mg Tab) 5 mg PO TID@0800,1200,1700 [facility] Stop: 09/27/24 16:59 Last Admin: 09/01/24 12:21 Dose: 5 mg (1) Traumatic periorbital ecchymosis Encounter type: subsequent encounter Laterality: left Qualified Code(s): S05.12XD - Contusion of eyeball and orbital tissues, left eye, subsequent encounter (2) Facial contusion Encounter type: subsequent encounter Qualified Code(s): S00.83XD - Contusion of other part of head, subsequent encounter
[2024-09-02 08:21] LABS: Hematocrit (blood only) 40.6 % (37.0-47.0); Hemoglobin 13.1 g/dl (12.0-16.0); Mean Corpuscular Hemoglobin 31.5 pg (25.0-34.0); Mean Corpuscular Hgb Conc 32.3 g/dL (32.0-36.0); Mean Corpuscular Volume 97.6 fL (80.0-100.0); Mean Platelet Volume 9.4 fL (9.4-12.4); Platelet Count 118 K/uL (130-400); RDW Standard Deviation 57.2 fL (36.4-46.3); Red Blood Count 4.16 M/uL (4.20-5.40); White Blood Count 3.76 K/ul (4.8-10.8)
[2024-09-02 08:38] LABS: BUN Creatinine Ratio 37.2 (10-20); Calcium 9.3 mg/dl (8.6-10.3); Creatinine Clr Calc Pharmacy 51.3 ml/min; Magnesium 2.1 mg/dl (1.7-2.4); Phosphorus 3.9 mg/dl (2.5-4.9); Potassium 4.4 mmol/L (3.5-5.1)
[2024-09-02 10:47] VITALS: BP 99/66; RESP 18; TEMP 97.9; O2SAT 97
--- NOTE | 2024-09-02 12:01 | Discharge Summary ---
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 History obtained from patient sitting at bedside. Patient is alert and oriented x 3 but seems confused while gathering the history and providing collaborating details. Family states [place] 3 days ago she tripped over her dog blanket. Patient states she keeps the dog blanket at the front of her bed and she had another fall again last night. They state she fell and could not get up. she kept yelling and someone working at the farm came to help her out. Patient is unclear as to exactly how she fell. She does have a history of chronic alcohol use. They note she has had recent eye surgery especially on the right side. She denies any new vision loss. States that she uses oxygen at nighttime at baseline but she was unsure of how much. The son-in-law confirms that it might be a few Liters at baseline. They also note that she has no sternum and that she was told that she can never have CPR. She is however agreeable to defibrillation if needed as well as intubation. States that she follows with Dr. Jordan as her solid waste management engineer and is unsure of whether or not she takes a diuretic. Patient notes that she frequently gets lower extremity edema and today her legs look much improved from baseline. She stated at the time of exam that she was feeling short of breath and that they were noting on the monitor that her oxygen saturations was decreasing to the 70s. better after placed on oxygen. Admission Exam Per Admitting Provider General: Alert, confused at times. No acute distress Skin: periorbital erythema and swelling, scratches in various stages of healing on face, lower extremities Psych: Alert, confused at times HEENT: periorbital erythema and swelling. Left eye with noted discharge CV: Irregular, murmur present Resp: Breath sounds decreased bilaterally, no increased effort of breathing Abdomen: Soft, distended Extremities: edema in the upper parts of her lower extremities bilaterally. Principal Diagnosis Fall Acute on chronic heart failure with preserved ejection fraction (HFpEF) Pl. effusion s/p thoracentesis Discharge Exam General- oriented x 3, not in distress, speaks in sentences with no effort or accessory muscle use Eyes- periorbital hematoma and edema improving Neck- no JVD Lungs- mild rales bilateral bases Heart- normal rate, regular rhythm; no murmurs Abdomen- normal bowel sounds, nondistended, soft, nontender Extremities- mild pretibial edema, mild erythema bilaterally Neuro- alert, oriented x 3; no gross focal neurologic deficits Skin- warm & dry Discharge Data Allergies Allergy/AdvReac Type Severity Reaction Status Date / Time pantoprazole Allergy Intermediate ITCHY RASH Verified 08/27/24 12:57 Penicillins Allergy Intermediate HIVES Verified 08/27/24 12:57 Consultations 08/27/24 15:56 Consult Cardiology Routine 08/27/24 16:17 Consult Pulmonology Routine 08/27/24 17:59 Consult Oromaxillofacial Surgery Routine Ordered Studies 08/27/24 11:16 CT cervical spine wo con Stat FINDINGS: Demineralized appearance of the bones. Straightening of the normal cervical lordosis. Moderate to severe degenerative changes of the cervical spine redemonstrated. No acute cervical spine fracture or subluxation is identified. Mildly progressive degenerative related erosive changes at C1-C2. The cervical soft tissues appear unremarkable. Layering left pleural effusion. No pneumothorax. Multinodular thyroid goiter redemonstrated. Atherosclerosis of the carotid bulbs, severe on the right. IMPRESSION: 1. No acute cervical spine fracture or subluxation identified. 2. Layering left pleural effusion. 3. Severe calcified plaque at the right carotid bulb. CT facial bones wo con Stat 08/27/24 11:17 CT head/brain wo con Stat FINDINGS: No acute intracranial hemorrhage, midline shift, intracranial mass, hydrocephalus, territorial ischemia or abnormal extra-axial collection. Involutional changes with chronic microvascular ischemic disease. Study is mildly motion degraded. The calvarium is intact. There is a large contusion/hematoma the left frontal temporal scalp extending into the periorbital tissues and left cheek. Small right periorbital contusion. Bilateral prior lens repair The paranasal sinuses, mastoid air cells, and middle ear cavities are clear. IMPRESSION: 1. No acute intracranial abnormality or calvarial fracture. 2. Large scalp/facial contusions. 08/27/24 12:43 CT chest diagnostic wo con Stat FINDINGS: Multinodular thyroid. Mildly enlarged left axillary and mediastinal lymph nodes measuring up to approximately 11 mm are unchanged. Marked cardiomegaly without pericardial effusion. Aortic valvular prosthesis. Moderate coronary artery calcifications. Median sternotomy. Probable pulmonary arterial hypertension. Soft tissue thickening posterior to the sternum, likely postoperative. Small right with moderate left pleural effusions. Intralobular septal thickening with bronchial wall thickening. Pulmonary emphysema. Minimal right basilar atelectasis. Left basilar consolidation, also likely atelectatic. Central air ways are patent. Probable hepatic steatosis. Small amount of upper abdominal ascites. Anasarca. No acute fracture. IMPRESSION: 1. Cardiomegaly with mild interstitial pulmonary edema, small right and moderate left pleural effusions. 2. Left basilar predominant consolidation suggestive of probable atelectasis. 3. Anasarca with abdominal ascites. 4. No acute fracture or pneumothorax. 5. Unchanged mediastinal and left axillary lymphadenopathy. 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 Fall Scalp and facial contusions Traumatic periorbital ecchymosis Left eye conjunctivitis Pt unsure of details Family notes that she has been having frequent falls, lives alone, unsure how long she was on the ground Pt with swollen and bruised eyelids On aspirin at home Head CT and Face CT noting large scalp and facial contusions but no acute fracture Cervical spine CT and chest CT without acute fracture/acute trauma signs Hold home aspirin, on it 3x a week OMFS consult for contusions and impressive facial traumatic changes Erythromycin ointment to L eye PT/OT 08/30 No neurologic deficits No visual deficits CP K within normal limits no surgical procedures indicated, Appreciate Dr. Peguero's recommendations facial edema, periorbital hematoma improving Aspirin on hold Acute on Chronic Congestive heart failure Acute on Chronic hypoxic respiratory failure Pt unsure if she has taken her daily diuretic States she uses oxygen at home, 2L nightly Chest XR concerning for Left greater than right small pleural effusions CT chest noting mild interstitial pulmonary edema, small right and moderate left pleural effusions. Repeat echo VBG ordered BNP Pt currently hypotensive, will need very cautious diuretics Cardiology consulted, appreciate recs. -case discussed with Dr Greco who recommended midodrine with diuresis -midodrine 2.5mg TID ordered, titrate dose as needed -IV lAsix once BP improves -holding home lasix 40mg daily (dose was increased on 08/11/24) Pulmonology consulted for possible thoracentesis as well, appreciate recs Oxygen supplementation as needed Continue to monitor 08/28 echocardiogram: Pending Lasix 20 mg IV twice daily ordered together with midodrine 5 mg p.o. 3 times daily Appreciate cardiology service recommendations 08/29 s/p thoracentesis today current 600 mL of bloody fluid removed pleural fluid studies: Pending Pleural fluid culture: Pending 08/30 improving overall Currently on room air Per cardiology: Discontinue IV furosemide persistent lower extremity midnight likely to completely resolve. Will resume oral dosing - recommend 40 mg every other day Patient not receiving metoprolol due to low blood pressures we will separate dosing to 12.5 mg twice per day and reduce BP parameters. Needs heart rate controlled for hemodynamic stability -- Also started on midodrine 5 mg p.o. 3 times daily since admission for blood pressure support Atrial Fibrillation s/p TAVR Pt on metoprolol 25mg daily with digoxin 125mcg MWF Not on anticoagulation due multiple contraindications Per cardiology - Cardiac status clinically stable, patient tolerating current medications. Continue midodrine, furosemide and split dose of metoprolol succinate. Discussed on 09/02 - will cont. with 40 mg lasix po every other day. Bilateral lower extremity edema mostly secondary to CHF exacerbation Associated with some erythema and warmth trial of Lasix IV -- seems to be improving with diuresis Hold off on antibiotics Ascites Pt with noted ascites on CT chest No known diagnosis of cirrhosis Consider dedicated imaging of the abdomen Diuresis as above 08/30 no abdominal distention Monitor LFTs Chronic alcohol use Thrombocytopenia Frequent falls and pt with poor memory of what happened Alcohol level negative Thrombocytopenia chronic likely in the setting of chronic alcohol use AWSS at risk protocol When asked, patient reports last drink of alcohol was more than a week ago States she only consumes alcohol about once a month No signs of overt withdrawal at this time Platelets stable around 100 K Monitor closely Pancytopenia WBC 4K Hemoglobin 12-13K Platelet count around 100k CBC stable since admission Elevated Troponin demand ischemia Trop elevated at 76.9 and 82.1, third set 79.5 EKG with known atrial fibrillation Multinodular Goiter Noted on imaging TSH normal Continue home levothyroxine Outpt followup Skin Wounds Pt with multiple scratches and skin wounds on lower extremities and face Notes dogs at home that scratch Wound care consult Hx of sternal chondrosarcoma s/p sternotomy Pt nots she was told she should not have CPR as a result of her sternotomy so she is a DNR However she would like defib if needed as well as intubation Continue other home meds as ordered Total Time Total Time Spent Total Time Spent (In Minutes): 40 Discharge Plan Discharge Items Patient Disposition: Transfer [facility] Fac Reason For Visit: FALL, CHF Discharge Diagnosis: Fall Acute on chronic heart failure with preserved ejection fraction (HFpEF) Pl. effusion s/p thoracentesis Activity: Per Instructions section Non-emergency contact: Primary Care Provider, Specialist and Power Line Installer And Repairer Call non-emergency contact if: you have any medication questions and your symptoms worsen Follow-up/Referrals: Leyda Ahn MD [Primary Care Provider] - Diet: Low Sodium (2gm) Jasson Attending Provider Instructions: Follow up with primary care doctor and solid waste management engineer. Take metoprolol succinate 12.5 mg twice a day. Take furosemide 40mg every other day. Take midodrine 5 mg three times a day. Jasson Railcar Brake Operator Provider Instructions: Call your Primary Care doctor if any of the following symptoms or problems start or get worse: * Shortness of breath or difficulty breathing * Wake up at night short of breath * Chest pain * Cough * Swelling of your hands, feet, or legs * More fatigued or tired with your normal activity * Palpitations - sudden fast heart beats WEIGHT * Weigh yourself every morning after using the bathroom. * Use the same scale. * Wear the same amount of clothing. * Write your weight down on a chart. * Call your Primary Care doctor if you gain more than 2-3 pounds in 1-2 days. MEDICATIONS * Use this discharge instruction sheet for medication instructions. * Take your medications at the time your doctor ordered. * Do not skip a dose of your medicines. * If you miss a dose of medicine, take it as soon as possible, but DO NOT DOUBLE A DOSE. * Read your medicine information when you get home. * Know all of the side effects of your medicine. If in doubt, ask your pharmacist * Call your Primary Care doctor's office if you have any side effects. * Be sure all of your doctors know what medicine and herbs you take (including cold, flu, and herbal medicine). Take the following with you to your follow-up doctor appointments: * Weight Chart * Medication List * List of questions Do not drink excessive alcohol, beer or wine. Pending Studies at Discharge: No Stand-Alone Forms: My [facility] Skilled Items Patient informed of condition?: Yes DNR: No (conditional code) Discharge Level of Care: Skilled Communicable Disease: No Discharge Prognosis: Stable Lines: None Urinary Catheter: No Medications and DC Order Prescriptions: New midodrine 5 mg tablet 5 mg PO TID Qty: 60 0RF Rx Instructions: do not give last dose of day after 6PM or within 4 hrs of bedtime metoprolol succinate 25 mg Tablet Extended Release 24 Hr 12.5 mg PO BID Qty: 60 0RF furosemide 40 mg Tablet 40 mg PO Q OTHER DAY Qty: 20 0RF folic acid 400 mcg Tablet 400 mcg PO DAILY Qty: 30 0RF Continued acetaminophen [Tylenol Arthritis Pain] 650 mg Tablet Extended Release 2 tab PO BID PRN (Reason: Pain) Rx Instructions: Unable to verify OTC meds at this date/time. (DME) Oxygen Home cyanocobalamin (vitamin B-12) 1,000 mcg/mL Solution 1,000 mcg IM Q4WK Rx Instructions: Unable to verify this medication at this date/time. ferrous sulfate [Iron (ferrous sulfate)] 325 mg (65 mg iron) Tablet 325 mg PO DAILY Rx Instructions: Unable to verify OTC meds at this date/time. cetirizine [Zyrtec] 10 mg Tablet 10 mg PO DAILY Rx Instructions: Unable to verify OTC meds at this date/time. vitamin [id number] acid 1,000-400 mcg Lozenge 1 tye SUBLINGUAL DAILY Rx Instructions: Unable to verify OTC meds at this date/time. Anoro Ellipta 62.5-25 mcg/actuation blister with device 1 inh INHALATION QAM Rx Instructions: Not on file w/ pharmacy. digoxin 125 mcg (0.125 mg) tablet 125 mcg PO 3XWK furosemide 40 mg tablet 40 mg PO DAILY Rx Instructions: TAKE 40mg BY MOUTH TUES,THURS, AND SAT, AND TAKE 20mg BY MOUTH OTHER DAYS levothyroxine 100 mcg tablet 100 mcg PO DAILYBB albuterol sulfate 90 mcg/actuation HFA aerosol inhaler 2 puff INHALATION Q4H PRN (Reason: Shortness Of Breath Or Wheezing) mesalamine 0.375 gram capsule,extended release 24hr 1.5 g PO QAM gabapentin 100 mg capsule 100 mg PO DAILY Held aspirin 81 mg Tablet,Delayed Release (Dr/Ec) 81 mg PO UD Hold Instructions: Resume on 09/09/24. until seen and discussed with primary care physician Rx Instructions: Per Dr Jordan: Take one tab 3 days per week Discontinued metoprolol succinate 25 mg tablet extended release 24 hr 25 mg PO QAM Discharge Orders: Discharge Order- CHF (Routine); Ordered 09/02/24 Ordered By: Kamar Mathis Admission Data Admit Date/Time: 08/27/24 14:18 Attending Provider: Kamar Mathis Admit Provider: Pari Goncalves Primary Care Provider: Leyda Ahn Other Providers: Hardeep Greco; Hector Guidry; Aguila Peguero; Mike Devries; [facility]; [facility]; [facility]; [facility]; Vik Erickson
[2024-09-02 14:13] VITALS: PULSE 77
== END 2024-09-02 14:30 | DRG 124 ==
LOC: ED 10:48 → 2S 14:18 → SUATTDRO 14:18 → 2S 17:10

== ENCOUNTER 2025-01-20 17:57 | Inpatient (IN) ==
--- NOTE | 2025-01-20 18:02 | Emergency Department Note ---
Impression & Plan Acute hypoxemic respiratory failure, Acute on chronic heart failure with preserved ejection fraction (HFpEF), Pleural effusion ED Provider Note NAME: KARTHIK TATE AGE: 84 SEX: F : 1940 ARRIVES VIA: Ambulance INFORMANT: Patient, ED PROVIDER(S): Isaias Schneider MD CHIEF COMPLAINT: Shortness of breath, hypoxia MEDICAL DECISION MAKING: Patient presents with the above. Patient appears very ill on initial exam and initially oxygen was not hooked up to the patient's nonrebreather this was turned up to 15. I did ask that respiratory be called. The patient was able to be awakened without significant prompting and is able to follow commands she does complain of shortness of breath.` Patient may have evidence of acral cyanosis pulse ox was attempted to be obtained and did as a respiratory patient placed on high flow empirically after nonrebreather management. Subsequently did speak with the daughter did present at bedside after ordering initial labs and testing. Patient has had a progressive decline in the last 3 weeks and the patient does not appear to far off from her baseline per the daughter. She is DNR/DNI. They have not discussed hospice but this is something that she may consider as the patient had expressed to her daughter that she does not know why her body will not "quit" when she does not feel well. Patient did receive a DuoNeb treatment. The patient's chest x-ray does show concern for significant left-sided pleural effusion the patient has had a thoracentesis in the past. Patient with mild leukopenia with white count of 4.1. The patient was covered with empiric antibiotics. Platelet count of 90. ABG was obtained [id number] which was reassuring with a [id number] pH of 7.37 with a pCO2 of 62 and a pO2 of 333 on high flow. Kidney function with an elevated BUN but creatinine 1.4. Troponin to 40.6 likely demand in nature. Patient's BNP of 1080. The patient was ordered 40 Lasix. Procalcitonin 0.1. I did speak the on-call hospitalist service Dr. Buck and the patient was admitted to the medicine service. Critical Care: I have personally spent 75 minutes of critical care time in direct management of this patient. This includes bedside care, interpretation of diagnostic studies, and testing, discussion with consultants, patient, and family members, and other require inpatient management activities. This 75 minutes is in excess of all separately billable procedures. Discussion w/ other healthcare providers: Dr. Buck inpatient medicine service Prior /Outside records reviewed: None Differential diagnosis: Reactive airway disease, pneumonia, pneumothorax, COPD, CHF, ACS, pulmonary embolism, musculoskeletal, GERD as well as other pathologies were considered. Diagnostics, as interpreted by me: ECG: Sinus versus A-fib, rate of 60 normal intervals normal axis no ST elevations possible ST depressions in the lateral leads. Cardiac monitoring: An order was placed for continuous cardiac monitoring. The monitor shows a rate of 68 with occasional irregular rhythm. Patient was placed on pulse oximetry Medical decision rules: None Imaging studies: I informally interpreted the patient's chest x-ray does show left-sided pleural effusion with formal report to follow. HPI: Patient presents due to concern for shortness of breath. Limited history upon arrival but reportedly hypoxic to 70%. Patient does admit to shortness of breath and associated cough. After the daughter arrived additional history obtained the patient send a progressive decline the last 3 weeks was refusing to take her medications or eat today. Have discussed palliative care but no hospice prior. The patient does have significant heart history and COPD does wear chronic oxygen at all times. PAST MEDICAL HISTORY: See Below PAST SURGICAL HISTORY: See Below SOCIAL HISTORY: See Below HOME MEDICATIONS: See Below ALLERGIES: See Below VITALS: See Below PHYSICAL EXAMINATION: GENERAL: Severe distress, nonrebreather in place. EYE EXAM: Normal conjunctiva. PERRL, no anisocoria and EOM's grossly intact w/o pain. OROPHARYNX: Moist mucus membranes, grossly normal dentition. NECK: Trachea midline, no stridor. JVD noted. LUNGS: Diminished breath sounds throughout especially at the left base. Normal chest wall mechanics. HEART: NSR, no MRG. ABDOMEN: Abdomen soft, non-tender, no masses, no rebound or guarding. BACK: No CVA TTP. SKIN: No rashes and no bruising. UPPER EXTREMITIES: Some swelling noted to the bilateral forearms. LOWER EXTREMITIES: Grossly normal, n edema noted with chronic venous stasis changes. NEURO EXAM: Does awaken to voice and painful stimuli follows basic commands. Past Med/Surg History Problem List (Updated 01/21/25 @ 14:17 by Isaias Schneider MD) Pleural effusion (Acute) Acute hypoxemic respiratory failure (Acute) Acute on chronic heart failure with preserved ejection fraction (HFpEF) (Acute) Hematoma Fall Facial contusion (Acute) Traumatic periorbital ecchymosis (Acute) Ascites Chronic hypotension Secondary pulmonary arterial hypertension Bilateral pleural effusion Traumatic subconjunctival hemorrhage of left eye (Acute) CHI (closed head injury) (Acute) Fall (Acute) Leg pain (Acute) Elevated troponin (Acute) Leg wound, right Dizziness (Acute) Acute hypotension (Acute) Encounter for pre-operative examination Encounter for pre-operative examination Chondrosarcoma (Chronic Unknown) S/P resection Elevated LFTs (Acute) Ileitis (Acute) GI bleed (Acute) Atrial flutter (Chronic) Meningioma (Chronic) Diverticulitis (Chronic) Abdominal pain Elevated LFTs Encounter for pre-operative examination Stroke syndrome (Acute) Stenosis, cervical spine (Acute) Spinal stenosis of lumbar region (Acute) Memory loss (Acute) Lumbar radiculopathy (Acute) Migraine headache (Acute) Crohn's disease (Acute) Cervicalgia (Acute) Cervical radiculopathy (Acute) Carpal tunnel syndrome (Acute) Meningioma Cervicalgia Cervical spinal stenosis Cervical facet joint syndrome Cervical spondylosis Cervicogenic headache Dizziness (Acute) Acute hyponatremia (Acute) Headache (Acute) Weakness (Acute) History of meningioma (Acute) Hyponatremia History of atrial flutter Acute GI bleeding (Acute) Colitis (Acute) Right rib fracture (Acute) Lumbar transverse process fracture (Acute) Fall (Acute) Prosthetic aortic valve stenosis Rectal bleed Unexplained weight loss NSVT (nonsustained ventricular tachycardia) Ulcerative colitis (Chronic) S/P colon resection (Chronic) History of total hysterectomy (Chronic Unknown) "2001 " Intracranial meningioma (Chronic Unknown) PT STATES NO SURGERY Medical History Chest tightness Heart failure, diastolic, with acute decompensation Atrial flutter with rapid ventricular response Severe tricuspid regurgitation Atrial flutter with controlled response Crohn disease Hypothyroidism COPD (chronic obstructive pulmonary disease) HAS O2 BUT NOT USING CURRENLTY Atrial fibrillation with RVR History of thyroidectomy (Unknown) GERD (gastroesophageal reflux disease) Hx of sarcoma of bone SURGERY ONLY Poor historian Acute on chronic diastolic heart failure due to valvular disease Carotid artery occlusion NO SURGERY ON CAROTID Crohns disease Spinal stenosis Osteoarthritis Cardiac murmur FOLLOWS WITH [facility] CARDS Hyperlipidemia Former smoker Surgical History S/P TAVR (transcatheter aortic valve replacement) H/O knee surgery LEFT History of colonoscopy History of tooth extraction History of tonsillectomy X 2 S/P aortic valve replacement 12+ YEARS AGO *[facility] "NEEDS REPAIRED" History of thoracic surgery SARCOMA REMOVED History of appendectomy Family History Mother Coronary heart disease Father Coronary heart disease Other No family history of adverse response to anesthesia Social History Smoking Status: Former smoker Tobacco Type: Cigarettes Second Hand Exposure: No; Do You Dip or Chew Tobacco: No; Hx Alcohol Use: No Hx Substance Use: No Preferred Language: Bulgarian Communication Ability: Effective Chimney Mechanic Required: No Beliefs That Will Affect Care: None Current Living Situation: Other Current Living Situation Comment: home alone with 24 hour care Other Information That Helps Us Care for You: No Feels Safe at Home: Yes Safety Concerns: Feels Safe At This Time Assistive Devices: Walker Allergies Allergies Allergy/AdvReac Type Severity Reaction Status Date / Time pantoprazole Allergy Intermediate ITCHY RASH Verified 08/27/24 12:57 Penicillins Allergy Intermediate HIVES Verified 08/27/24 12:57 Home Meds Home Medications Medication Instructions Recorded Confirmed acetaminophen 650 mg 2 tab PO BID PRN Pain 04/12/18 01/20/25 tablet,extended release (Tylenol Arthritis Pain) Oxygen Home 12/04/21 05/12/24 aspirin 81 mg tablet,delayed 81 mg PO UD 11/10/23 01/20/25 release cyanocobalamin (vitamin B-12) 1,000 mcg IM Q4WK 11/10/23 01/20/25 1,000 mcg/mL injection solution ferrous sulfate 325 mg (65 mg 325 mg PO DAILY 05/12/24 01/20/25 iron) tablet (Iron (ferrous sulfate)) vitamin B12 1,000 mcg-folic acid 1 tye sublingual DAILY 05/12/24 01/20/25 400 mcg sublingual lozenge digoxin 125 mcg (0.125 mg) tablet 125 mcg PO 3XWK 05/13/24 01/20/25 albuterol sulfate 90 mcg/actuation 2 puff inhalation Q4H PRN 08/27/24 01/20/25 aerosol inhaler Shortness Of Breath Or Wheezing furosemide 40 mg tablet 60 mg PO BID 08/27/24 01/20/25 levothyroxine 100 mcg tablet 100 mcg PO DAILYBB 08/27/24 01/20/25 mesalamine 0.375 gram 1.5 g PO QAM 08/27/24 01/20/25 capsule,extended release 24 hr metoprolol succinate 25 mg 12.5 mg PO DAILY 01/20/25 01/20/25 tablet,extended release 24 hr midodrine 5 mg tablet 10 mg PO TID 01/20/25 01/20/25 tiotropium 2.5 mcg-olodaterol 2.5 2 puff inhalation DAILY 01/20/25 01/20/25 mcg/actuation mist for inhalation (Stiolto Respimat) Previous Rx's Medication Instructions Recorded folic acid 400 mcg tablet 400 mcg PO DAILY #30 tabs 09/02/24 Results & Data (ED) Vital Signs Vital Signs - 24 hr 01/20/25 18:03 01/20/25 18:20 01/20/25 18:25 Temperature 35.0 C L Temperature Source Rectal Pulse Rate 52 L 63 57 L Pulse Rate [Apical] Pulse Rate from SpO2 Sensor Respiratory Rate 12 12 Respiratory Effort / Characteristics Non-Labored Spontaneous Respiratory Depth Normal Respiratory Pattern Regular Blood Pressure 103/55 L Blood Pressure Mean 71 Blood Pressure Position Lying Pulse Oximetry 76 L 77 L Oxygen Delivery Method Non-rebreather Non-rebreather Oxygen Flow Rate 15 15 Fraction of Inspired Oxygen Sepsis Recent Fever Within 48 Hours No Sepsis New/Unexplained Change in Mental Status No Sepsis Action Taken by Nursing No Action Required 01/20/25 18:39 01/20/25 19:54 01/20/25 20:00 Temperature Temperature Source Pulse Rate 59 L 56 L Pulse Rate [Apical] Pulse Rate from SpO2 Sensor 52 L Respiratory Rate 65 H 14 14 Respiratory Effort / Characteristics Non-Labored Spontaneous Respiratory Depth Respiratory Pattern Blood Pressure Blood Pressure Mean Blood Pressure Position Pulse Oximetry 100 88 L 95 Oxygen Delivery Method High Flow Nasal Cannula Oxygen Flow Rate 40 Fraction of Inspired Oxygen 50 Sepsis Recent Fever Within 48 Hours Sepsis New/Unexplained Change in Mental Status Sepsis Action Taken by Nursing 01/20/25 20:00 Temperature Temperature Source Pulse Rate Pulse Rate [Apical] 62 Pulse Rate from SpO2 Sensor Respiratory Rate 17 Respiratory Effort / Characteristics Non-Labored Spontaneous Respiratory Depth Respiratory Pattern Blood Pressure Blood Pressure Mean Blood Pressure Position Pulse Oximetry 98 Oxygen Delivery Method High Flow Nasal Cannula Oxygen Flow Rate 40 Fraction of Inspired Oxygen 40 Sepsis Recent Fever Within 48 Hours Sepsis New/Unexplained Change in Mental Status Sepsis Action Taken by Care Home Medications Current Medication List: was personally reviewed by me Laboratory Data Attestation: I reviewed the patient's lab results. 01/21/25 05:56 01/21/25 05:56 Lab Results 01/20/25 01/20/25 01/20/25 Range/Units 18:25 18:26 18:27 WBC 4.15 L (4.8-10.8) K/ul RBC 4.79 (4.20-5.40) M/uL Hgb 15.7 (12.0-16.0) g/dl POC Hgb 18.0 H 16.7 H (12.0-16.0) g/dl Hct 48.6 H (37.0-47.0) % POC Hct 53 H 49 H (37-47) % MCV 101.5 H (80.0-100.0) fL MCH 32.8 (25.0-34.0) pg MCHC 32.3 (32.0-36.0) g/dL RDW Std Deviation 67.2 H (36.4-46.3) fL RDW Coeff of Brendon 18.7 H (11.5-14.5) % Plt Count 90 L (130-400) K/uL MPV 10.1 (9.4-12.4) fL Immature Gran % (Auto) 0.2 % Neut % (Auto) 75.2 % Lymph % (Auto) 13.5 % Levy % (Auto) 11.1 % Eos % (Auto) 0.0 % Baso % (Auto) 0.0 % Neut # (Auto) 3.12 (1.40-6.50) K/uL Lymph # (Auto) 0.56 L (1.20-3.40) K/uL Levy # (Auto) 0.46 (0.11-0.59) K/uL Eos # (Auto) 0.00 (0.00-0.50) K/uL Baso # (Auto) 0.00 (0.00-0.20) K/uL Immature Gran # (Auto) 0.01 (0.01-0.20) K/uL PT 18.6 H (9.0-12.0) Seconds INR 1.8 H (0.9-1.1) Specimen Type Arterial Sample Site R Radial POC pH 7.37 (7.35-7.45) POC pCO2 62 H (35-46) mmHg POC pO2 333 H (80-95) mmHg POC HCO3 36 H (19-24) melanie/L POC Base Excess 10.0 H (-9-1.8) melanie/L ABG pH (Temp Correct) 7.386 (7.35-7.45) ABG pCO2 (Temp Corrct 58 H (35-46) mmHg POC ABG pO2 at Pt Temp 326 POC ABG O2 Sat 100.0 H (90-95) % Urbano Test Pass O2 Delivery Device Hi Boris Can POC FiO2 100 % POC Sodium 137 137 (135-144) mmol/L Sodium 136 (136-145) mmol/L POC Potassium 4.5 3.9 (3.3-5.0) mmol/L Potassium TNP POC Chloride 92 L (101-112) mmol/L Chloride 92 L (98-107) mmol/L Carbon Dioxide 34 H (21-32) mmol/L POC Total CO2 34 H 37 H (24-31) mmol/L Anion Gap 10 (3-11) POC Anion Gap 16.0 (16-25) mmol/L POC BUN 75 H (7-18) mg/dl BUN 62 H (6-23) mg/dl Creatinine 1.40 H (0.6-1.2) mg/dl POC Creatinine 1.5 H (0.6-1.3) mg/dl Est Cr Clr Drug Dosing 31.8 ml/min eGFR 36.87 BUN/Creatinine Ratio 44.3 H (10-20) Glucose 78 (70-99(Fasting)) mg/dl POC Glucose (other) 81 (70-99) mg/dl Calcium 9.7 (8.6-10.3) mg/dl POC Ioniz Calcium Natalie 1.00 L (1.12-1.32) mmol/l Magnesium 2.5 H (1.7-2.4) mg/dl Total Bilirubin 4.0 H (0.2-1.0) mg/dl AST TNP ALT 7 (7-52) U/L Alkaline Phosphatase 71 (34-104) U/L Troponin I High Sens 40.6 H (0-14) pg/ml B-Natriuretic Peptide (0-100) pg/ml Total Protein 8.2 (6.0-8.3) gm/dl Albumin 3.2 L (3.4-5.0) gm/dl Globulin 5.0 H (2.5-4.0) gm/dl Albumin/Globulin Ratio 0.6 L (0.9-2) Procalcitonin (0-0.5) ng/ml TSH 2.933 (0.300-4.500) uIu/ml 01/20/25 01/20/25 Range/Units 18:58 19:52 WBC (4.8-10.8) K/ul RBC (4.20-5.40) M/uL Hgb (12.0-16.0) g/dl POC Hgb (12.0-16.0) g/dl Hct (37.0-47.0) % POC Hct (37-47) % MCV (80.0-100.0) fL MCH (25.0-34.0) pg MCHC (32.0-36.0) g/dL RDW Std Deviation (36.4-46.3) fL RDW Coeff of Brendon (11.5-14.5) % Plt Count (130-400) K/uL MPV (9.4-12.4) fL Immature Gran % (Auto) % Neut % (Auto) % Lymph % (Auto) % Levy % (Auto) % Eos % (Auto) % Baso % (Auto) % Neut # (Auto) (1.40-6.50) K/uL Lymph # (Auto) (1.20-3.40) K/uL Levy # (Auto) (0.11-0.59) K/uL Eos # (Auto) (0.00-0.50) K/uL Baso # (Auto) (0.00-0.20) K/uL Immature Gran # (Auto) (0.01-0.20) K/uL PT (9.0-12.0) Seconds INR (0.9-1.1) Specimen Type Sample Site POC pH (7.35-7.45) POC pCO2 (35-46) mmHg POC pO2 (80-95) mmHg POC HCO3 (19-24) melanie/L POC Base Excess (-9-1.8) melanie/L ABG pH (Temp Correct) (7.35-7.45) ABG pCO2 (Temp Corrct (35-46) mmHg POC ABG pO2 at Pt Temp POC ABG O2 Sat (90-95) % Urbano Test O2 Delivery Device POC FiO2 % POC Sodium (135-144) mmol/L Sodium (136-145) mmol/L POC Potassium (3.3-5.0) mmol/L Potassium 4.1 POC Chloride (101-112) mmol/L Chloride (98-107) mmol/L Carbon Dioxide (21-32) mmol/L POC Total CO2 (24-31) mmol/L Anion Gap (3-11) POC Anion Gap (16-25) mmol/L POC BUN (7-18) mg/dl BUN (6-23) mg/dl Creatinine (0.6-1.2) mg/dl POC Creatinine (0.6-1.3) mg/dl Est Cr Clr Drug Dosing ml/min eGFR BUN/Creatinine Ratio (10-20) Glucose (70-99(Fasting)) mg/dl POC Glucose (other) (70-99) mg/dl Calcium (8.6-10.3) mg/dl POC Ioniz Calcium Natalie (1.12-1.32) mmol/l Magnesium (1.7-2.4) mg/dl Total Bilirubin (0.2-1.0) mg/dl AST 30 ALT (7-52) U/L Alkaline Phosphatase (34-104) U/L Troponin I High Sens 43.2 H (0-14) pg/ml B-Natriuretic Peptide 1080 H (0-100) pg/ml Total Protein (6.0-8.3) gm/dl Albumin (3.4-5.0) gm/dl Globulin (2.5-4.0) gm/dl Albumin/Globulin Ratio (0.9-2) Procalcitonin 0.16 (0-0.5) ng/ml TSH (0.300-4.500) uIu/ml Administered Medications Albuterol (Albut/Ipratrop 3mg/0.5mg Neb 3 Ml Vial) 3 ml NEB QIDR SALLY; Protocol Stop: 02/20/25 06:59 Last Admin: 01/21/25 11:25 Dose: 3 ml Documented By: Admin: 01/21/25 07:20 Dose: 3 ml Documented By: NOEL Aspirin (Aspirin 81 Mg Ectab) 81 mg PO SuTuThSa@0900 [facility] Stop: 02/20/25 08:59 Last Admin: 01/21/25 07:54 Dose: 81 mg Documented By: LB Digoxin (Digoxin 0.125 Mg Tab) 0.125 mg PO MoWeFr@1600 [facility] Stop: 02/19/25 21:59 Last Admin: 01/20/25 22:55 Dose: Not Given Documented By: CRISTIN Ferrous Sulfate (Ferrous Sulfate 325 Mg Tab) 325 mg PO DAILY [facility] Stop: 02/20/25 08:59 Last Admin: 01/21/25 07:49 Dose: 325 mg Documented By: LB Furosemide (Furosemide 40 Mg/4 Ml Vial) 40 mg IV BID [facility] Stop: 02/19/25 21:59 Last Admin: 01/21/25 13:13 Dose: 40 mg Documented By: Admin: 01/20/25 22:55 Dose: Not Given Documented By: CRISTIN Doxycycline Hyclate 100 mg/ (Dextrose) 100 mls @ 50 mls/hr IV Q12H [facility] Stop: 01/27/25 21:59 Last Infusion: 01/21/25 11:06 Dose: Infused Documented By: Admin: 01/21/25 09:00 Dose: 50 mls/hr Documented By: Infusion: 01/21/25 01:28 Dose: Infused Documented By: Admin: 01/20/25 23:20 Dose: 50 mls/hr Documented By: CRISTIN Ceftriaxone Sodium (Rocephin) 2,000 mg in 50 mls @ 100 mls/hr IV Q24H [facility] Stop: 01/23/25 08:59 Last Infusion: 01/21/25 10:56 Dose: Infused Documented By: Admin: 01/21/25 09:58 Dose: 100 mls/hr Documented By: LB Albumin Human (Albumin 25%) 12.5 gm in 50 mls @ 50 mls/hr IV Q1H [facility]; Protocol Stop: 01/21/25 15:29 Last Admin: 01/21/25 13:14 Dose: 50 mls/hr Documented By: Infusion: 01/21/25 13:14 Dose: Infused Documented By: Admin: 01/21/25 12:33 Dose: 50 mls/hr Documented By: LB Levothyroxine Sodium (Levothyroxine Sodium 100 Mcg Tablet) 100 mcg PO DAILYBB [facility] Stop: 02/20/25 06:29 Last Admin: 01/21/25 06:36 Dose: Not Given Documented By: CRISTIN Metoprolol Succinate (Metoprolol Succ 25mg Ext Rel Tab) 12.5 mg PO DAILY SALLY Stop: 02/20/25 08:59 Last Admin: 01/21/25 11:15 Dose: 12.5 mg Documented By: LB Midodrine (Midodrine Hcl 10 Mg Tab) 10 mg PO TID@0800,1200,1700 [facility] Stop: 02/19/25 21:59 Last Admin: 01/21/25 10:56 Dose: 10 mg Documented By: Admin: 01/21/25 07:48 Dose: 10 mg Documented By: Admin: 01/20/25 22:55 Dose: Not Given Documented By: CRISTIN Miscellaneous (Mesalamine 0.375gm Er: Order Awaiting Action) 1 each N/A QS [facility] Stop: 02/20/25 07:59 Last Admin: 01/21/25 07:54 Dose: Not Given Documented By: LB Discontinued Medications Albuterol (Albut/Ipratrop 3mg/0.5mg Neb 3 Ml Vial) 3 ml NEB NOW STA; Protocol Stop: 01/20/25 18:30 Last Admin: 01/20/25 18:39 Dose: 3 ml Documented By: JUAN FRANCISCO Furosemide (Furosemide 40 Mg/4 Ml Vial) 40 mg IV ONE ONE Stop: 01/20/25 19:29 Last Admin: 01/20/25 19:39 Dose: 40 mg Documented By: CHAD Ceftriaxone Sodium (Rocephin) 2,000 mg in 50 mls @ 100 mls/hr IV NOW STA Stop: 01/20/25 19:57 Last Infusion: 01/20/25 21:25 Dose: Infused Documented By: Admin: 01/20/25 19:39 Dose: 100 mls/hr Documented By: CHAD Discharge Plan Visit Data Chief Complaint: Abnormal Labs/Diagnostic Testing ED Provider: Isaias Schneider Discharge Problem: Acute hypoxemic respiratory failure, Acute on chronic heart failure with preserved ejection fraction (HFpEF), Pleural effusion Patient Disposition: Admitted As Inpatient Condition: Serious Discharge Instructions Interventions: ED Discharge Assessment Last Done: 01/20/25 22:10
[2025-01-20] MEDS: ALBUT/IPRATROP 3MG/0.5MG NEB 3 ML VIAL NEB STA (18:39)
[2025-01-20 18:47] LABS: iSTAT Art Bld Gas Base Excess 10.0 meg/L (-9-1.8); iSTAT Art Bld Gas pCO2 Correct 58 mmHg (35-46); iSTAT Art Bld Gas pH Corrected 7.386 (7.35-7.45); iSTAT Arterial Blood Gas pO2 C 326
[2025-01-20 19:04] LABS: Hematocrit (blood only) 48.6 % (37.0-47.0); Hemoglobin 15.7 g/dl (12.0-16.0); Immature Granulocytes # (auto) 0.01 K/uL (0.01-0.20); Immature Granulocytes % (auto) 0.2 %; Mean Corpuscular Hemoglobin 32.8 pg (25.0-34.0); Mean Corpuscular Volume 101.5 fL (80.0-100.0); Platelet Count 90 K/uL (130-400); RDW Standard Deviation 67.2 fL (36.4-46.3); Red Blood Count 4.79 M/uL (4.20-5.40); White Blood Count 4.15 K/ul (4.8-10.8)
[2025-01-20 19:13] LABS: INR 1.8 (0.9-1.1); Prothrombin Time 18.6 Seconds (9.0-12.0)
[2025-01-20 19:16] LABS: Alanine Aminotransferase 7 U/L (7-52); Albumin Globulin Ratio 0.6 (0.9-2); Alkaline Phosphatase 71 U/L (34-104); Anion Gap 10 (3-11); Bilirubin,Total 4.0 mg/dl (0.2-1.0); Blood Urea Nitrogen 62 mg/dl (6-23); Calcium 9.7 mg/dl (8.6-10.3); Carbon Dioxide 34 mmol/L (21-32); Chloride 92 mmol/L (98-107); Creatinine Clr Calc Pharmacy 31.8 ml/min; Globulin 5.0 gm/dl (2.5-4.0); Glucose 78 mg/dl (70-99(Fasting)); Magnesium 2.5 mg/dl (1.7-2.4); Sodium 136 mmol/L (136-145); Total Protein 8.2 gm/dl (6.0-8.3)
--- NOTE | 2025-01-20 19:21 | XRay Report ---
Clinical History: Weakness Technique: A frontal view of the chest was obtained Comparison is made to the prior examination dated 08/29/2024 Findings: There is worsened left lower lobe opacity that may be due to either atelectasis or pneumonia. There is suspected mild pulmonary edema. The heart is enlarged. There is an aortic valve replacement. No definite right pleural effusion or pneumothorax is seen. There is a large left pleural effusion, increased in size No fracture is noted. There is thoracic scoliosis and degenerative disc disease. Sternal wires are present Impression: 1. Large left pleural effusion 2. Left lower lobe opacity that may be due to either atelectasis or pneumonia 3. Cardiomegaly and mild pulmonary edema ACT 112: Positive. There are findings on this exam that require communication between the performing entity and the patient following Patient Test Result Information Act ([place] ACT 112) guidelines. Electronically signed by Jose Armando Mcdonald 01-20-2025 7:21 PM
[2025-01-20 19:32] LABS: Thyroid Stimulating Hormone 2.933 uIu/ml (0.300-4.500)
[2025-01-20] MEDS: cefTRIAXone SODIUM 2,000 MG/50 ML BAG IV STA (19:39)
[2025-01-20] MEDS: FUROSEMIDE 40 MG/4 ML VIAL IV ONE (19:39)
--- NOTE | 2025-01-20 19:45 | History & Physical Report ---
Date of Service January 20, 2025 Assessment & Plan (1) Acute on chronic heart failure with preserved ejection fraction (HFpEF): Plan: Acute on chronic respiratory failure with hypoxia and hypercarbia Acute on chronic diastolic heart failure Valvular heart disease: Moderate mitral regurgitation, severe tricuspid regurgitation S/P TAVR Pulmonary hypertension Multifactorial secondary to CHF, COPD, pulmonary hypertension Chronic oxygen dependency: Currently using 2 L at home --CXR: Large left pleural effusion, Left lower lobe opacity that may be due to either atelectasis or pneumonia, Cardiomegaly and mild pulmonary edema --[employer] pending update ECHO BNP 1080 Hold PO diuretics Start IV Lasix 40mg twice daily Monitor Daily weight, I/Os, electrolytes, renal function Will place on BiPAP Monitor renal function/electrolytes Cardiology consulted Continue home metoprolol with holding parameters Also on digoxin Continue DuoNebs, supplemental oxygen as needed Will need thoracentesis for left pleural effusion Consulted pulmonology Possible sepsis Presented with lactic acidosis with KRIS, hypothermia Possible sources: Community-acquired pneumonia, leg cellulitis Normal procalcitonin Chest x-ray as above Check nasal MRSA Urinalysis pending Lactic acidosis 3.1 Blood cultures ordered Empirically started on Rocephin, doxycycline Would not give aggressive IV fluids given significant volume overload status Continue Neri chand Acute kidney injury Likely prerenal/ATN Could not give IV fluids due to volume overload status Bladder scan as needed Monitor urine output Urinalysis pending Avoid nephrotoxic agents as able Pancytopenia H/O chronic thrombocytopenia likely due to liver disease No acute bleeding issues Monitor CBC Acute metabolic encephalopathy Likely multifactorial Obtain CT head Neurochecks Aspiration precautions N.p.o. for now Chronic troponin elevation Less likely ACS Likely demand ischemia Troponin levels better when compared to prior Hyperbilirubinemia H/O alcohol use disorder H/O hemangioma of liver INR 1.8 No recent alcohol use per patient's family Obtain liver ultrasound Monitor LFTs Avoid nephrotoxic agents as able Follows with gastroenterology as outpatient Suspected ascites Ordered abdominal paracentesis Monitor volume status Empirically on Rocephin as above Chronic hypotension Continue midodrine Paroxysmal atrial fibrillation Continue metoprolol, digoxin Obtain digoxin level Not on chronic anticoagulation Rate controlled COPD Prior tobacco use disorder Continue nebs for now Resume home inhalers as able Hypothyroidism H/O multinodular goiter Normal TSH Continue levothyroxine H/O sternal chondrosarcoma S/P stem ostomy Meningioma S/P gamma knife surgery Crohn's disease Continue mesalamine Moderate dementia Recurrent falls As per record DVT Px: SCDs Code Status DNI/DNR: As per my discussion with patient's daughter--POA Prognosis Guarded Disposition Admit to PCU I spent a total [id number] discussing with patient's family and ER physician, reviewing old records and coordinating, documenting, and providing care for this patient. History of Present Illness Chief Complaint: Altered mental status Primary Care Provider: Leyda Ahn MD Patient is an 84-year-old female with history of diastolic heart failure, valvular heart disease (moderate mitral regurgitation, severe tricuspid regurgitation), chronic hypotension, pulmonary hypertension, ulcerative colitis, paroxysmal atrial fibrillation, COPD, chronic thrombocytopenia, hypothyroidism, chondrosarcoma, TAVR, B12 deficiency, meningioma, Crohn's disease, hemangioma of liver, chronic oxygen dependency on 2 L at bedtime, moderate dementia as per record, alcohol use disorder, past tobacco use disorder, recurrent falls and other medical problems presents with history of altered mental status, failure to thrive. Patient is drowsy and lethargic while in ED, history is obtained from ER physician, old records and patient's daughter at bedside. Patient's daughter states that since her discharge from the last hospitalization in August 2024 patient has been deteriorating gradually. She has been requiring supplemental oxygen throughout the day and has been extremely tired especially since 3 to 4 weeks duration. She has been sleeping mostly throughout the day and requiring 2 person assist for any activity. Her mental status have been gradually worsened over the. Since last hospital stay. Family discontinued Zyrtec which they believe is contributing to the confusion. They noticed her leg swelling has been gradually worsening and also noted her abdomen has been more distended. Patient's PCP was planning to schedule her for thoracentesis and repeat chest x-ray per patient's family. Patient's appetite has been significantly decreased and hardly eating or drinking. Patient did have minimal cough associated with shortness of breath with minimal activity. Her last thoracentesis was in October. No recent alcohol use per patient's family. Patient's daughter confirms patient to be DNI DNR. Patient ran out of her home inhaler and has been using rescue inhaler for the last few days. She was found to be hypothermic in ED and was placed on Neri hugger. Allergies Allergy/AdvReac Type Severity Reaction Status Date / Time pantoprazole Allergy Intermediate ITCHY RASH Verified 08/27/24 12:57 Penicillins Allergy Intermediate HIVES Verified 08/27/24 12:57 Home Medications Medication Instructions Recorded Confirmed Type acetaminophen 650 mg 2 tab PO BID PRN Pain 04/12/18 01/20/25 History tablet,extended release (Tylenol Arthritis Pain) Oxygen Home 12/04/21 05/12/24 History aspirin 81 mg tablet,delayed 81 mg PO UD 11/10/23 01/20/25 History release cyanocobalamin (vitamin B-12) 1,000 mcg IM Q4WK 11/10/23 01/20/25 History 1,000 mcg/mL injection solution ferrous sulfate 325 mg (65 mg 325 mg PO DAILY 05/12/24 01/20/25 History iron) tablet (Iron (ferrous sulfate)) vitamin B12 1,000 mcg-folic acid 1 tye sublingual DAILY 05/12/24 01/20/25 History 400 mcg sublingual lozenge digoxin 125 mcg (0.125 mg) tablet 125 mcg PO 3XWK 05/13/24 01/20/25 History albuterol sulfate 90 mcg/actuation 2 puff inhalation Q4H PRN 08/27/24 01/20/25 History aerosol inhaler Shortness Of Breath Or Wheezing furosemide 40 mg tablet 60 mg PO BID 08/27/24 01/20/25 History levothyroxine 100 mcg tablet 100 mcg PO DAILYBB 08/27/24 01/20/25 History mesalamine 0.375 gram 1.5 g PO QAM 08/27/24 01/20/25 History capsule,extended release 24 hr folic acid 400 mcg tablet 400 mcg PO DAILY #30 tabs 09/02/24 01/20/25 Rx metoprolol succinate 25 mg 12.5 mg PO DAILY 01/20/25 01/20/25 History tablet,extended release 24 hr midodrine 5 mg tablet 10 mg PO TID 01/20/25 01/20/25 History tiotropium 2.5 mcg-olodaterol 2.5 2 puff inhalation DAILY 01/20/25 01/20/25 History mcg/actuation mist for inhalation (Stiolto Respimat) Past Med/Surg History Problem List Acute on chronic heart failure with preserved ejection fraction (HFpEF) Hematoma Fall Facial contusion (Acute) Traumatic periorbital ecchymosis (Acute) Ascites Chronic hypotension Secondary pulmonary arterial hypertension Bilateral pleural effusion Traumatic subconjunctival hemorrhage of left eye (Acute) CHI (closed head injury) (Acute) Fall (Acute) Leg pain (Acute) Elevated troponin (Acute) Leg wound, right Dizziness (Acute) Acute hypotension (Acute) Encounter for pre-operative examination Encounter for pre-operative examination Chondrosarcoma (Chronic Unknown) S/P resection Elevated LFTs (Acute) Ileitis (Acute) GI bleed (Acute) Atrial flutter (Chronic) Meningioma (Chronic) Diverticulitis (Chronic) Abdominal pain Elevated LFTs Encounter for pre-operative examination Stroke syndrome (Acute) Stenosis, cervical spine (Acute) Spinal stenosis of lumbar region (Acute) Memory loss (Acute) Lumbar radiculopathy (Acute) Migraine headache (Acute) Crohn's disease (Acute) Cervicalgia (Acute) Cervical radiculopathy (Acute) Carpal tunnel syndrome (Acute) Meningioma Cervicalgia Cervical spinal stenosis Cervical facet joint syndrome Cervical spondylosis Cervicogenic headache Dizziness (Acute) Acute hyponatremia (Acute) Headache (Acute) Weakness (Acute) History of meningioma (Acute) Hyponatremia History of atrial flutter Acute GI bleeding (Acute) Colitis (Acute) Right rib fracture (Acute) Lumbar transverse process fracture (Acute) Fall (Acute) Prosthetic aortic valve stenosis Rectal bleed Unexplained weight loss NSVT (nonsustained ventricular tachycardia) Ulcerative colitis (Chronic) S/P colon resection (Chronic) History of total hysterectomy (Chronic Unknown) "2001 " Intracranial meningioma (Chronic Unknown) PT STATES NO SURGERY Medical History Chest tightness Heart failure, diastolic, with acute decompensation Atrial flutter with rapid ventricular response Severe tricuspid regurgitation Atrial flutter with controlled response Crohn disease Hypothyroidism COPD (chronic obstructive pulmonary disease) HAS O2 BUT NOT USING CURRENLTY Atrial fibrillation with RVR History of thyroidectomy (Unknown) GERD (gastroesophageal reflux disease) Hx of sarcoma of bone SURGERY ONLY Poor historian Acute on chronic diastolic heart failure due to valvular disease Carotid artery occlusion NO SURGERY ON CAROTID Crohns disease Spinal stenosis Osteoarthritis Cardiac murmur FOLLOWS WITH [facility] CARDS Hyperlipidemia Former smoker Surgical History S/P TAVR (transcatheter aortic valve replacement) H/O knee surgery LEFT History of colonoscopy History of tooth extraction History of tonsillectomy X 2 S/P aortic valve replacement 12+ YEARS AGO *[facility] "NEEDS REPAIRED" History of thoracic surgery SARCOMA REMOVED History of appendectomy Family History Mother Coronary heart disease Father Coronary heart disease Other No family history of adverse response to anesthesia Social History Smoking Status: Never smoker Tobacco Type: Cigarettes Second Hand Exposure: No; Do You Dip or Chew Tobacco: No; Hx Alcohol Use: Yes Alcohol type: beer Alcohol type Comment: 2 reagan lights a day Hx Substance Use: No Preferred Language: Pashto Communication Ability: Effective Home Performance Laborer Required: No Beliefs That Will Affect Care: None Current Living Situation: Alone Current Living Situation Comment: Independent, still drives Feels Safe at Home: Yes Assistive Devices: Oxygen - at Night and Walker Review of Systems Review of Systems: All systems reviewed & are unremarkable except as noted in Subjective Physical Exam Physical Exam: Physical Exam: Vitals signs as noted above General Appearance: Thin, frail, ill-appearing, elderly, no apparent distress Head: normocephalic, Atraumatic Eyes: normal inspection, EOMI Neck: supple, Trachea midline Respiratory/Chest: Decreased breath sounds, basilar crackles, No accessory muscle use Cardiovascular: S1, S2, +murmur Abdomen/GI:Soft, Non tender, distended, abdominal hernia+, bowel sounds present Extremities/Musculoskeletal:normal inspection, 3+ B/L LE edema, chronic venous stasis, bilateral leg erythema Neurologic/Psych:AAOX1, grossly moves all extremities. Unable to perform complete neurological exam. Skin: normal color, warm Results & Data Results & Data Vital Signs (Past 12 Hours) Vital Signs Temp Pulse Resp BP Pulse Ox O2 Del Method O2 Flow Rate 01/20/25 18:39 65 H 100 High Flow Nasal Cannula 40 01/20/25 18:25 57 L 01/20/25 18:20 63 12 77 L Non-rebreather 15 01/20/25 18:03 35.0 C L 52 L 12 103/55 L 76 L Non-rebreather 15 FiO2 01/20/25 18:39 50 01/20/25 18:25 01/20/25 18:20 01/20/25 18:03 Laboratory Results Short CBC 01/20/25 Range/Units 18:25 WBC 4.15 L (4.8-10.8) K/ul Hgb 15.7 (12.0-16.0) g/dl Hct 48.6 H (37.0-47.0) % Plt Count 90 L (130-400) K/uL BMP 01/20/25 01/20/25 18:25 19:52 Sodium 136 Potassium TNP 4.1 Chloride 92 L Carbon Dioxide 34 H BUN 62 H Creatinine 1.40 H Glucose 78 Calcium 9.7 Liver Function 01/20/25 01/20/25 Range/Units 18:25 19:52 Total Bilirubin 4.0 H (0.2-1.0) mg/dl AST TNP 30 ALT 7 (7-52) U/L Alkaline Phosphatase 71 (34-104) U/L Albumin 3.2 L (3.4-5.0) gm/dl Diagnostic Findings --CXR: Large left pleural effusion. Left lower lobe opacity that may be due to either atelectasis or pneumonia. Cardiomegaly and mild pulmonary edema Medications Administered Home Medications Medication Instructions Recorded Confirmed acetaminophen 650 mg 2 tab PO BID PRN Pain 04/12/18 01/20/25 tablet,extended release (Tylenol Arthritis Pain) Oxygen Home 12/04/21 05/12/24 aspirin 81 mg tablet,delayed 81 mg PO UD 11/10/23 01/20/25 release cyanocobalamin (vitamin B-12) 1,000 mcg IM Q4WK 11/10/23 01/20/25 1,000 mcg/mL injection solution ferrous sulfate 325 mg (65 mg 325 mg PO DAILY 05/12/24 01/20/25 iron) tablet (Iron (ferrous sulfate)) vitamin B12 1,000 mcg-folic acid 1 tye sublingual DAILY 05/12/24 01/20/25 400 mcg sublingual lozenge digoxin 125 mcg (0.125 mg) tablet 125 mcg PO 3XWK 05/13/24 01/20/25 albuterol sulfate 90 mcg/actuation 2 puff inhalation Q4H PRN 08/27/24 01/20/25 aerosol inhaler Shortness Of Breath Or Wheezing furosemide 40 mg tablet 60 mg PO BID 08/27/24 01/20/25 levothyroxine 100 mcg tablet 100 mcg PO DAILYBB 08/27/24 01/20/25 mesalamine 0.375 gram 1.5 g PO QAM 08/27/24 01/20/25 capsule,extended release 24 hr metoprolol succinate 25 mg 12.5 mg PO DAILY 01/20/25 01/20/25 tablet,extended release 24 hr midodrine 5 mg tablet 10 mg PO TID 01/20/25 01/20/25 tiotropium 2.5 mcg-olodaterol 2.5 2 puff inhalation DAILY 01/20/25 01/20/25 mcg/actuation mist for inhalation (Stiolto Respimat) Previous Rx's Medication Instructions Recorded folic acid 400 mcg tablet 400 mcg PO DAILY #30 tabs 09/02/24 ECG Additional Comments: --EKG: Sinus rhythm with PVCs, low voltage QRS, QTc 420. Nonspecific ST-T wave changes.
[2025-01-20 20:42] LABS: Potassium 4.1 mmol/L (3.5-5.1)
[2025-01-20] MEDS ORDERED: ONDANSETRON INJ 2 MG/ML 2 ML VIAL IV PRN (22:00)
[2025-01-20] MEDS ORDERED: LEVALBUTEROL HCL 0.63 MG/3 ML NEB NEB PRN (22:00)
[2025-01-20 22:19] LABS: Chlamydia pneumoniae PCR Not Detected (NotDetected); Coronavirus 229E PCR Not Detected (NotDetected); Coronavirus CoV-2 (COVID19)PCR Not Detected (NotDetected); Coronavirus HKU1 PCR Not Detected (NotDetected); Coronavirus NL63 PCR Not Detected (NotDetected); Coronavirus OC43PCR Not Detected (NotDetected); Human Metapneumovirus PCR Not Detected (NotDetected); Parainfluenza Virus 1 PCR Not Detected (NotDetected); Parainfluenza Virus 2 PCR Not Detected (NotDetected); Parainfluenza Virus 3 PCR Not Detected (NotDetected); Parainfluenza Virus 4 PCR Not Detected (NotDetected); Respiratory Syncytial VirusPCR Not Detected (NotDetected); Rhinovirus/Enterovirus PCR Not Detected (NotDetected)
[2025-01-20] MEDS: DIGOXIN 0.125 MG TAB PO SCH (22:55)
[2025-01-20] MEDS: FUROSEMIDE 40 MG/4 ML VIAL IV SCH (22:55)
[2025-01-20] MEDS: MIDODRINE HCL 10 MG TAB PO SCH (22:55)
[2025-01-20] MEDS: DOXYCYCLINE HYCLATE 100 MG in DEXTROSE 5% MINI-B 100 ML IV SCH (23:20)
[2025-01-20 23:41] LABS: Appearance Urine Cloudy (Clear); Bacteria Urine Automated 1+ (None Seen); Cast Urine Automated >20 /lpf (0-2); Epithelial Cell Urine Auto 0-2 /hpf (0-2); Glucose Urine UA Negative (Negative); RBC Urine Automated >20 /hpf (0-2); WBC Urine Automated 0-5 /hpf (0-5)
[2025-01-21 06:03] LABS: Base Excess VBG 11.1 mEq/L; HCO3 VBG 37 mmol/L; Oxygen Saturation VBG 90.5 %; PCO2 VBG 55 mmHg (38-50); PO2 VBG 59 mmHg; pH VBG 7.44 (7.36-7.41)
[2025-01-21 06:13] LABS: Hematocrit (blood only) 43.1 % (37.0-47.0); Hemoglobin 14.2 g/dl (12.0-16.0); Mean Corpuscular Hemoglobin 32.6 pg (25.0-34.0); Mean Corpuscular Volume 98.9 fL (80.0-100.0); Platelet Count 102 K/uL (130-400); RDW Standard Deviation 63.4 fL (36.4-46.3); Red Blood Count 4.36 M/uL (4.20-5.40); White Blood Count 4.91 K/ul (4.8-10.8)
[2025-01-21 06:31] LABS: Alanine Aminotransferase 7.0 U/L (7-52); Albumin Globulin Ratio 0.7 (0.9-2); Alkaline Phosphatase 63.0 U/L (34-104); Anion Gap 10.0 (3-11); Bilirubin,Total 3.3 mg/dl (0.2-1.0); Blood Urea Nitrogen 62.0 mg/dl (6-23); Calcium 9.5 mg/dl (8.6-10.3); Carbon Dioxide 33.0 mmol/L (21-32); Chloride 94.0 mmol/L (98-107); Creatinine Clr Calc Pharmacy 29.7 ml/min; Globulin 4.4 gm/dl (2.5-4.0); Glucose 63.0 mg/dl (70-99(Fasting)); Magnesium 2.4 mg/dl (1.7-2.4); Potassium 4.3 mmol/L (3.5-5.1); Sodium 137.0 mmol/L (136-145); Total Protein 7.3 gm/dl (6.0-8.3)
[2025-01-21] MEDS: LEVOTHYROXINE SODIUM 100 MCG TABLET PO SCH (06:34)
[2025-01-21 06:36] LABS: INR 1.8 (0.9-1.1); Prothrombin Time 18.6 Seconds (9.0-12.0)
[2025-01-21] MEDS: ALBUT/IPRATROP 3MG/0.5MG NEB 3 ML VIAL NEB SCH (07:20)
[2025-01-21] MEDS: FERROUS SULFATE 325 MG TAB PO SCH (07:49)
[2025-01-21] MEDS: ASPIRIN 81 MG ECTAB PO SCH (07:54)
--- NOTE | 2025-01-21 09:08 | Hospitalist Progress Note ---
Date of Service January 21, 2025 Assessment & Plan (1) Acute on chronic heart failure with preserved ejection fraction (HFpEF): Plan: 84-year-old female with history of diastolic heart failure, valvular heart disease (moderate mitral regurgitation, severe tricuspid regurgitation), chronic hypotension, pulmonary hypertension, ulcerative colitis, paroxysmal atrial fibrillation, COPD, chronic thrombocytopenia, hypothyroidism, chondrosarcoma, TAVR, B12 deficiency, meningioma, Crohn's disease, hemangioma of liver, chronic oxygen dependency on 2 L at bedtime, moderate dementia as per record, alcohol use disorder, past tobacco use disorder, recurrent falls and other medical problems presents with history of altered mental status, failure to thrive. Acute on chronic respiratory failure with hypoxia and hypercarbia Acute on chronic diastolic heart failure Valvular heart disease: Moderate mitral regurgitation, severe tricuspid regurgitation S/P TAVR, Pulmonary hypertension Chronic oxygen dependency: Currently using 2 L at home Labs on admission notable for platelet of 90, INR 1.8,ABG pH of 7.37/pCO2 62, Cr 1.4, BUN 62, lactate 3.1, BNP 1080, Trop 40>>57.7 --CXR: Large left pleural effusion, Left lower lobe opacity that may be due to either atelectasis or pneumonia, Cardiomegaly and mild pulmonary edema --BioFire negative Continue IV lasix Monitor Daily weight, I/Os, electrolytes, renal function Respiratory just weaned to NC. Will monitor Continue home metoprolol, digoxin Will follow up Cardiology eval May benefit from thoracentesis. Will follow up Pulm eval Possible sepsis Presented with lactic acidosis with KRIS, hypothermia Lactic acidosis and KRIS could also be due to heart failure Possible sources: Community-acquired pneumonia, leg cellulitis Normal procalcitonin Follow up blood cultures Continue empirical ceftriaxone, doxycycline Off Neri hugger this AM Acute kidney injury Likely prerenal/ATN Monitor urine output Avoid nephrotoxic agents as able If continues to worsen, will get Nephrology on board Acute metabolic encephalopathy Going down for CT head this AM Neurochecks Aspiration precautions Chronic troponin elevation Less likely ACS Likely demand ischemia Troponin level on admission better when compared to trop in August 2024 H/O chronic thrombocytopenia No acute bleeding issues Monitor Hyperbilirubinemia H/O alcohol use disorder H/O hemangioma of liver No recent alcohol use per patient's family Going to get Liver USS this AM Monitor LFTs Follows with gastroenterology as outpatient Suspected ascites Ordered abdominal paracentesis Monitor volume status Follow up liver USS Chronic hypotension Continue midodrine Paroxysmal atrial fibrillation Continue metoprolol, digoxin Obtain digoxin level Not on chronic anticoagulation Rate controlled COPD Prior tobacco use disorder Continue nebs for now Resume home inhalers as able Hypothyroidism H/O multinodular goiter Normal TSH Continue levothyroxine H/O sternal chondrosarcoma S/P stem ostomy Meningioma S/P gamma knife surgery Crohn's disease On mesalamine at home Moderate dementia Recurrent falls As per record Will get PT/OT eval once stable DVT Px:SCDs Code Status DNI/DNR: I spent a total of 55 minutes coordinating, documenting and providing care for this patient excluding time spent in performance of separately billed services Admission and Anticipated Discharge Date Admission Date: January 20, 2025 Subjective Patient seen and examined She is alert and oriented to person only Unable to obtain ROS due to mental status Physical Exam Constitutional: + ill appearing Elderly woman Eyes: PERRL, conjunctivae normal, anicteric sclerae ENMT: external ear and nose normal, oropharynx normal Respiratory: On HFNC, diminished breath sounds (L>R) Cardiovascular: Rate/Rhythm: + irregularly irregular Gastrointestinal (Abdomen): Soft, distended, nontender, +bowel sounds Musculoskeletal: significant b/l LE edema Neurologic: PERRL EOMI +confused Results & Data Results & Data Vital Signs (Past 12 Hours) Vital Signs Temp Pulse Pulse Resp BP Pulse Ox Pulse Ox 01/21/25 07:38 90 01/21/25 07:28 36.3 C L 81 17 97/64 L 91 01/21/25 07:20 103 H 22 93 01/21/25 06:43 37 C 84 24 94 01/21/25 03:26 101 H 17 93 01/21/25 03:03 78 16 104/50 L 97 01/21/25 00:58 35.8 C L 74 01/20/25 23:55 51 L 16 105/73 97 01/20/25 23:00 57 L 01/20/25 22:55 50 L 01/20/25 22:39 71 16 96 01/20/25 22:21 01/20/25 22:05 35.1 C L 92 H 16 99/69 L 97 01/20/25 22:00 37 C 84 24 96 01/20/25 22:00 97 O2 Del Method O2 Del Method O2 Flow Rate O2 Flow Rate FiO2 01/21/25 07:38 01/21/25 07:28 High Flow Nasal Cannula 35 01/21/25 07:20 High Flow Nasal Cannula 35 40 01/21/25 06:43 High Flow Nasal Cannula 35 40 01/21/25 03:26 High Flow Nasal Cannula 35 40 01/21/25 03:03 High Flow Nasal Cannula 35 40 01/21/25 00:58 01/20/25 23:55 High Flow Nasal Cannula 35 40 01/20/25 23:00 01/20/25 22:55 01/20/25 22:39 High Flow Nasal Cannula 35 40 01/20/25 22:21 High Flow Nasal Cannula 01/20/25 22:05 High Flow Nasal Cannula 30 40 01/20/25 22:00 High Flow Nasal Cannula 35 40 01/20/25 22:00 High Flow Nasal Cannula 40 Laboratory Results Abnormal lab results 01/20/25 01/20/25 01/20/25 Range/Units 18:25 18:26 18:27 WBC 4.15 L (4.8-10.8) K/ul POC Hgb 18.0 H 16.7 H (12.0-16.0) g/dl Hct 48.6 H (37.0-47.0) % POC Hct 53 H 49 H (37-47) % MCV 101.5 H (80.0-100.0) fL RDW Std Deviation 67.2 H (36.4-46.3) fL RDW Coeff of Brendon 18.7 H (11.5-14.5) % Plt Count 90 L (130-400) K/uL Lymph # (Auto) 0.56 L (1.20-3.40) K/uL PT 18.6 H (9.0-12.0) Seconds INR 1.8 H (0.9-1.1) POC pCO2 62 H (35-46) mmHg POC pO2 333 H (80-95) mmHg POC HCO3 36 H (19-24) melanie/L POC Base Excess 10.0 H (-9-1.8) melanie/L ABG pCO2 (Temp Corrct 58 H (35-46) mmHg POC ABG O2 Sat 100.0 H (90-95) % VBG pH (7.36-7.41) VBG pCO2 (38-50) mmHg POC Chloride 92 L (101-112) mmol/L Chloride 92 L (98-107) mmol/L Carbon Dioxide 34 H (21-32) mmol/L POC Total CO2 34 H 37 H (24-31) mmol/L POC BUN 75 H (7-18) mg/dl BUN 62 H (6-23) mg/dl Creatinine 1.40 H (0.6-1.2) mg/dl POC Creatinine 1.5 H (0.6-1.3) mg/dl BUN/Creatinine Ratio 44.3 H (10-20) Glucose (70-99(Fasting)) mg/dl Lactate (0.4-2.0) mmol/L POC Ioniz Calcium Natalie 1.00 L (1.12-1.32) mmol/l Magnesium 2.5 H (1.7-2.4) mg/dl Total Bilirubin 4.0 H (0.2-1.0) mg/dl Troponin I High Sens 40.6 H (0-14) pg/ml B-Natriuretic Peptide (0-100) pg/ml Albumin 3.2 L (3.4-5.0) gm/dl Globulin 5.0 H (2.5-4.0) gm/dl Albumin/Globulin Ratio 0.6 L (0.9-2) Urine Appearance (Clear) Urine Protein (Negative) Urine Ketones (Negative) Urine Blood (Negative) Urine Nitrite (Negative) Urine Bilirubin (Negative) Ur Leukocyte Esterase (Negative) Urine RBC (Auto) (0-2) /hpf U Hyaline Cast (Auto) (0-2) /lpf Urine Bacteria (Auto) (None Seen) 01/20/25 01/20/25 01/20/25 Range/Units 18:58 19:52 21:03 WBC (4.8-10.8) K/ul POC Hgb (12.0-16.0) g/dl Hct (37.0-47.0) % POC Hct (37-47) % MCV (80.0-100.0) fL RDW Std Deviation (36.4-46.3) fL RDW Coeff of Brendon (11.5-14.5) % Plt Count (130-400) K/uL Lymph # (Auto) (1.20-3.40) K/uL PT (9.0-12.0) Seconds INR (0.9-1.1) POC pCO2 (35-46) mmHg POC pO2 (80-95) mmHg POC HCO3 (19-24) melanie/L POC Base Excess (-9-1.8) melanie/L ABG pCO2 (Temp Corrct (35-46) mmHg POC ABG O2 Sat (90-95) % VBG pH (7.36-7.41) VBG pCO2 (38-50) mmHg POC Chloride (101-112) mmol/L Chloride (98-107) mmol/L Carbon Dioxide (21-32) mmol/L POC Total CO2 (24-31) mmol/L POC BUN (7-18) mg/dl BUN (6-23) mg/dl Creatinine (0.6-1.2) mg/dl POC Creatinine (0.6-1.3) mg/dl BUN/Creatinine Ratio (10-20) Glucose (70-99(Fasting)) mg/dl Lactate 3.1 H* (0.4-2.0) mmol/L POC Ioniz Calcium Natalie (1.12-1.32) mmol/l Magnesium (1.7-2.4) mg/dl Total Bilirubin (0.2-1.0) mg/dl Troponin I High Sens 43.2 H (0-14) pg/ml B-Natriuretic Peptide 1080 H (0-100) pg/ml Albumin (3.4-5.0) gm/dl Globulin (2.5-4.0) gm/dl Albumin/Globulin Ratio (0.9-2) Urine Appearance (Clear) Urine Protein (Negative) Urine Ketones (Negative) Urine Blood (Negative) Urine Nitrite (Negative) Urine Bilirubin (Negative) Ur Leukocyte Esterase (Negative) Urine RBC (Auto) (0-2) /hpf U Hyaline Cast (Auto) (0-2) /lpf Urine Bacteria (Auto) (None Seen) 01/20/25 01/20/25 01/21/25 Range/Units 23:00 23:27 05:56 WBC (4.8-10.8) K/ul POC Hgb (12.0-16.0) g/dl Hct (37.0-47.0) % POC Hct (37-47) % MCV (80.0-100.0) fL RDW Std Deviation 63.4 H (36.4-46.3) fL RDW Coeff of Brendon 17.8 H (11.5-14.5) % Plt Count 102 L (130-400) K/uL Lymph # (Auto) (1.20-3.40) K/uL PT 18.6 H (9.0-12.0) Seconds INR 1.8 H (0.9-1.1) POC pCO2 (35-46) mmHg POC pO2 (80-95) mmHg POC HCO3 (19-24) melanie/L POC Base Excess (-9-1.8) melanie/L ABG pCO2 (Temp Corrct (35-46) mmHg POC ABG O2 Sat (90-95) % VBG pH 7.44 H (7.36-7.41) VBG pCO2 55 H (38-50) mmHg POC Chloride (101-112) mmol/L Chloride 94 L (98-107) mmol/L Carbon Dioxide 33 H (21-32) mmol/L POC Total CO2 (24-31) mmol/L POC BUN (7-18) mg/dl BUN 62 H (6-23) mg/dl Creatinine 1.50 H (0.6-1.2) mg/dl POC Creatinine (0.6-1.3) mg/dl BUN/Creatinine Ratio 41.3 H (10-20) Glucose 63 L (70-99(Fasting)) mg/dl Lactate 3.3 H* (0.4-2.0) mmol/L POC Ioniz Calcium Natalie (1.12-1.32) mmol/l Magnesium (1.7-2.4) mg/dl Total Bilirubin 3.3 H (0.2-1.0) mg/dl Troponin I High Sens 57.7 H* D (0-14) pg/ml B-Natriuretic Peptide (0-100) pg/ml Albumin 2.9 L (3.4-5.0) gm/dl Globulin 4.4 H (2.5-4.0) gm/dl Albumin/Globulin Ratio 0.7 L (0.9-2) Urine Appearance Cloudy A (Clear) Urine Protein Trace H (Negative) Urine Ketones Trace H (Negative) Urine Blood 2+ H (Negative) Urine Nitrite Positive A (Negative) Urine Bilirubin 1+ H (Negative) Ur Leukocyte Esterase Trace H (Negative) Urine RBC (Auto) >20 H (0-2) /hpf U Hyaline Cast (Auto) >20 H (0-2) /lpf Urine Bacteria (Auto) 1+ H (None Seen) 01/21/25 01/21/25 Range/Units 07:19 09:01 WBC (4.8-10.8) K/ul POC Hgb (12.0-16.0) g/dl Hct (37.0-47.0) % POC Hct (37-47) % MCV (80.0-100.0) fL RDW Std Deviation (36.4-46.3) fL RDW Coeff of Brendon (11.5-14.5) % Plt Count (130-400) K/uL Lymph # (Auto) (1.20-3.40) K/uL PT (9.0-12.0) Seconds INR (0.9-1.1) POC pCO2 (35-46) mmHg POC pO2 (80-95) mmHg POC HCO3 (19-24) melanie/L POC Base Excess (-9-1.8) melanie/L ABG pCO2 (Temp Corrct (35-46) mmHg POC ABG O2 Sat (90-95) % VBG pH (7.36-7.41) VBG pCO2 (38-50) mmHg POC Chloride (101-112) mmol/L Chloride (98-107) mmol/L Carbon Dioxide (21-32) mmol/L POC Total CO2 (24-31) mmol/L POC BUN (7-18) mg/dl BUN (6-23) mg/dl Creatinine (0.6-1.2) mg/dl POC Creatinine (0.6-1.3) mg/dl BUN/Creatinine Ratio (10-20) Glucose (70-99(Fasting)) mg/dl Lactate 2.7 H* 3.0 H* (0.4-2.0) mmol/L POC Ioniz Calcium Natalie (1.12-1.32) mmol/l Magnesium (1.7-2.4) mg/dl Total Bilirubin (0.2-1.0) mg/dl Troponin I High Sens (0-14) pg/ml B-Natriuretic Peptide (0-100) pg/ml Albumin (3.4-5.0) gm/dl Globulin (2.5-4.0) gm/dl Albumin/Globulin Ratio (0.9-2) Urine Appearance (Clear) Urine Protein (Negative) Urine Ketones (Negative) Urine Blood (Negative) Urine Nitrite (Negative) Urine Bilirubin (Negative) Ur Leukocyte Esterase (Negative) Urine RBC (Auto) (0-2) /hpf U Hyaline Cast (Auto) (0-2) /lpf Urine Bacteria (Auto) (None Seen)
--- NOTE | 2025-01-21 09:24 | Pulmonary Consultation ---
Date of Consultation January 21, 2025 Assessment & Plan (1) Pleural effusion: (2) Acute hypoxemic respiratory failure: (3) Acute on chronic heart failure with preserved ejection fraction (HFpEF): (4) Ascites: Plan CT chest 08/27/2024 personally reviewed: Small left-sided pleural effusion compressive atelectasis of the left lower lobe Cardiomegaly No significant mediastinal lymphadenopathy Chest x-ray 01/20/2025 personally reviewed: Portable film, good inspiratory effort, mild blunting of the right costophrenic angle, blunting of the left costophrenic angle increased cardiac silhouette 2D echo 08/28/2024: EF 50-60%, RV severely dilated with PASP 66 mmHg, moderate MR, severe TR --Acute hypoxic respiratory failure Left-sided pleural effusion Previous thoracentesis on 08/29/2024, 600 mL fluid, lymphocytic, transudative Cytology negative for malignancy BNP 1080 Procalcitonin 0.16, respiratory BioFire negative for everything Abdominal ascites, the etiology for pleural effusion is most likely cardiac in origin, she also has significant ascitic fluid which could be transposition into the left pleural space --Pulmonary hypertension Likely type II -- COPD On Stiolto at home Not in acute exacerbation Plan: On bedside ultrasound the left-sided pleural effusion seems to be small to moderate in size. Abdominal ascites, the etiology for pleural effusion is most likely cardiac in origin, she also has significant ascitic fluid which could be transposition into the left pleural space Would perform a thoracentesis today as that might relieve the pressure from the belly. Thoracentesis could be thought of on Thursday if need be by IR Would recommend to continue with diuresis to keep the patient negative balance of at least 1 L on a daily basis Risk and benefit of the procedure explained to the patient's daughter in depth. She understands and wants to go ahead with the procedures Consent signed, witnessed and put in the chart I spent more than 75 minutes looking in the chart, images, discussing the plan of care with the patient, RN as well as primary team Please note the above document was generated using voice recognition software. It may contain grammatical, syntax or spelling errors.Any formal questions or concerns about the content, text or information contained within the body of this dictation should be directly addressed to the provider for clarification. History of Present Illness Attending Physician: Chantal Cardona MD History of Present Illness 84-year-old female presented to the hospital for failure to thrive and altered mental status Past medical history: HFpEF, moderate MR, severe TR, pulmonary hypertension, ulcerative colitis, paroxysmal A-fib, hemangioma of the liver, on chronic 2 L oxygen, dementia Pulmonary consulted for pleural effusion and hypoxia At the time of examination patient's daughter was in the room Patient is not a good historian. History is obtained from patient's daughter. She was in mild distress. She was saturating 99% on 4 L nasal cannula, I went down to 2 L She denied any chest pain As per the daughter no fever or chills No abdominal pain No dysuria or diarrhea. Patient has been gradually worsening when it comes to her mental status. She denies any headache or blurry vision. Social history: Used to be a daily smoker, quit a while ago Allergies Allergy/AdvReac Type Severity Reaction Status Date / Time pantoprazole Allergy Intermediate ITCHY RASH Verified 08/27/24 12:57 Penicillins Allergy Intermediate HIVES Verified 08/27/24 12:57 Home Medications Medication Instructions Recorded Confirmed Type acetaminophen 650 mg 2 tab PO BID PRN Pain 04/12/18 01/20/25 History tablet,extended release (Tylenol Arthritis Pain) Oxygen Home 12/04/21 05/12/24 History aspirin 81 mg tablet,delayed 81 mg PO UD 11/10/23 01/20/25 History release cyanocobalamin (vitamin B-12) 1,000 mcg IM Q4WK 11/10/23 01/20/25 History 1,000 mcg/mL injection solution ferrous sulfate 325 mg (65 mg 325 mg PO DAILY 05/12/24 01/20/25 History iron) tablet (Iron (ferrous sulfate)) vitamin B12 1,000 mcg-folic acid 1 tye sublingual DAILY 05/12/24 01/20/25 History 400 mcg sublingual lozenge digoxin 125 mcg (0.125 mg) tablet 125 mcg PO 3XWK 05/13/24 01/20/25 History albuterol sulfate 90 mcg/actuation 2 puff inhalation Q4H PRN 08/27/24 01/20/25 History aerosol inhaler Shortness Of Breath Or Wheezing furosemide 40 mg tablet 60 mg PO BID 08/27/24 01/20/25 History levothyroxine 100 mcg tablet 100 mcg PO DAILYBB 08/27/24 01/20/25 History mesalamine 0.375 gram 1.5 g PO QAM 08/27/24 01/20/25 History capsule,extended release 24 hr folic acid 400 mcg tablet 400 mcg PO DAILY #30 tabs 09/02/24 01/20/25 Rx metoprolol succinate 25 mg 12.5 mg PO DAILY 01/20/25 01/20/25 History tablet,extended release 24 hr midodrine 5 mg tablet 10 mg PO TID 01/20/25 01/20/25 History tiotropium 2.5 mcg-olodaterol 2.5 2 puff inhalation DAILY 01/20/25 01/20/25 History mcg/actuation mist for inhalation (Stiolto Respimat) Patient History Medical History Chest tightness Heart failure, diastolic, with acute decompensation Atrial flutter with rapid ventricular response Severe tricuspid regurgitation Atrial flutter with controlled response Crohn disease Hypothyroidism COPD (chronic obstructive pulmonary disease) HAS O2 BUT NOT USING CURRENLTY Atrial fibrillation with RVR History of thyroidectomy (Unknown) GERD (gastroesophageal reflux disease) Hx of sarcoma of bone SURGERY ONLY Poor historian Acute on chronic diastolic heart failure due to valvular disease Carotid artery occlusion NO SURGERY ON CAROTID Crohns disease Spinal stenosis Osteoarthritis Cardiac murmur FOLLOWS WITH [employer] CARDS Hyperlipidemia Former smoker Surgical History S/P TAVR (transcatheter aortic valve replacement) H/O knee surgery LEFT History of colonoscopy History of tooth extraction History of tonsillectomy X 2 S/P aortic valve replacement 12+ YEARS AGO *[facility] "NEEDS REPAIRED" History of thoracic surgery SARCOMA REMOVED History of appendectomy Family History Mother Coronary heart disease Father Coronary heart disease Other No family history of adverse response to anesthesia Social History Smoking Status: Former smoker Tobacco Type: Cigarettes Second Hand Exposure: No; Do You Dip or Chew Tobacco: No; Hx Alcohol Use: No Hx Substance Use: No Preferred Language: Icelandic Communication Ability: Effective Minister Of Religion Required: No Beliefs That Will Affect Care: None Current Living Situation: Other Current Living Situation Comment: home alone with 24 hour care Other Information That Helps Us Care for You: No Feels Safe at Home: Yes Safety Concerns: Feels Safe At This Time Assistive Devices: Walker Review of Systems 2 Review of Systems: All systems reviewed & are unremarkable except as noted in HPI & below Physical Exam 2 Physical Exam: Constitutional: No acute distress HEENT: EOMI, PERRLA Respiratory system: Decreased air entry bilaterally, more decreased on the left side, no wheeze, no rhonchi, positive crackles CVS: S1-S2 positive, positive 2 out of 6 systolic murmur appreciated best at left parasternal border Abdomen: Soft, nontender, distended, positive bowel sounds x4 Extremities: +2 pulses bilaterally radialis/ dorsalis pedis, no cyanosis, +2 pitting edema bilateral lower extremity Neuro: Awake and alert, oriented to himself Psych: Flat mood and affect G/U: Positive [place] Skin: no rashes, warm and dry Lymphatic: no cervical or axillary lymphadenopathy Results & Data Results & Data Vital Signs (Past 12 Hours) Vital Signs Temp Pulse Pulse Resp BP Pulse Ox Pulse Ox 01/21/25 07:38 90 01/21/25 07:28 36.3 C L 81 17 97/64 L 91 01/21/25 07:20 103 H 22 93 01/21/25 06:43 37 C 84 24 94 01/21/25 03:26 101 H 17 93 01/21/25 03:03 78 16 104/50 L 97 01/21/25 00:58 35.8 C L 74 01/20/25 23:55 51 L 16 105/73 97 01/20/25 23:00 57 L 01/20/25 22:55 50 L 01/20/25 22:39 71 16 96 01/20/25 22:21 01/20/25 22:05 35.1 C L 92 H 16 99/69 L 97 01/20/25 22:00 37 C 84 24 96 01/20/25 22:00 97 O2 Del Method O2 Del Method O2 Flow Rate O2 Flow Rate FiO2 01/21/25 07:38 01/21/25 07:28 High Flow Nasal Cannula 35 01/21/25 07:20 High Flow Nasal Cannula 35 40 01/21/25 06:43 High Flow Nasal Cannula 35 40 01/21/25 03:26 High Flow Nasal Cannula 35 40 01/21/25 03:03 High Flow Nasal Cannula 35 40 01/21/25 00:58 01/20/25 23:55 High Flow Nasal Cannula 35 40 01/20/25 23:00 01/20/25 22:55 01/20/25 22:39 High Flow Nasal Cannula 35 40 01/20/25 22:21 High Flow Nasal Cannula 01/20/25 22:05 High Flow Nasal Cannula 30 40 01/20/25 22:00 High Flow Nasal Cannula 35 40 01/20/25 22:00 High Flow Nasal Cannula 40 Laboratory Results 01/21/25 05:56 01/21/25 05:56 PG Care Time/CCT Total # of Minutes Spent Total Time Spent with Patient: Total time spent is greater than 50% in coordination of care (as documented) at patient's floor/unit and/or counseling patient: [place] [address] INT INP/OBS CARE 3/75MIN Patient Type New Diagnoses Pleural effusion J90 Acute hypoxemic respiratory failure J96.01 Acute on chronic heart failure with preserved ejection fraction (HFpEF) I50.33 Ascites R18.8
--- NOTE | 2025-01-21 09:28 | Cardiology Consultation ---
Date of Consultation January 21, 2025 Assessment & Plan (1) Acute on chronic heart failure with preserved ejection fraction (HFpEF): (2) Ascites: (3) Chronic hypotension: (4) Secondary pulmonary arterial hypertension: (5) Bilateral pleural effusion: (6) Elevated troponin: Plan End stage ill appearing 84-year-old female readmitted with acute on chronic decompensated right heart failure with associated pleural effusion, acute metabolic encephalopathy, possible sepsis, acute kidney injury, auto- anticoagulation. Elevated high-sensitivity troponin likely secondary to demand ischemia in the setting of multiple acute stressors. Past catheterization last in February 2022 with only mild luminal irregularities. 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 * Thoracentesis as per pulmonary medicine * Continue midodrine, metoprolol succinate and low digoxin * Strict I's and O's, daily weights, daily labs * Maintain telemetry * Hypotension, renal insufficiency, and past intolerance/adverse reactions preclude use of ACEI/ARB/ARNI * Consider palliative care consultation Supervising Physician Co-Signing Physician Notes Patient seen and examined. Past medical history, surgical history, social history and family history have been reviewed. The medical record and all the above studies have been reviewed. Case DW JULIA including management. Acute RHF RV systolic dysfunction Large L pleural effusion Moderate mitral regurgitation Severe tricuspid regurgitation S/P TAVR Severe pulmonary hypertension Acute kidney injury on CKD Acute metabolic encephalopathy Abnormal troponin - likely demand ischemia, not indicative of Type I HI Abnormal LFTs Paroxysmal atrial fibrillation COPD Dementia Recurrent falls correct and f/u electrolytes f/u renal function IV diuretics consider thoracentesis f/u with Pulmonary ASA not a candidate for chronic anticoagulation due to h/o and risk for fall GDMT for HFpEF limited due to renal insufficiency and low BP adjust rate control meds keeping HR between 60 to 100 BPM and systolic BP between 100-140 mmHg adjust anti-HTN meds keeping systolic BP between 100-140 mmHg avoid hypovolemia keep patient euvolemic DVT prophylaxis keep LE elevated when sitting 1.5 L / 24 hr fluid restriction strict I&Os salt restriction History of Present Illness Reason for Consultation: CHF Requesting Physician: [facility] Hospitalist Service, Dr. Chris Haider Attending Physician: [facility] Hospitalist Service, Dr. Chantal Cardona MD History of Present Illness Complex 84-year-old female who presented to [facility] ER on January 20, 2025 with failure to thrive, gradual decline over the last month or more. Information obtained by chart review. No family members at bedside. Patient is not a reliable source of information. Patient with fatigue, ambulatory dysfunction, declining mental status/confusion, worsening abdominal bloating and lower extremity peripheral edema, decreased appetite and intake. EKG in the ER revealed atrial flutter with a ventricular rate of 60 bpm, without overt acute change. High-sensitivity troponin elevated as follows: 40.6-> 43.2 -> 57.7 pg/mL. INR notably 1.8, not prescribed anticoagulation Chest x-ray with large left pleural effusion, recurrent, left lower lobe opacity, cardiomegaly and mild pulmonary edema Head CT without acute findings, revealing cerebral atrophy and chronic small vessel ischemic change. Problem list Mixed aortic valve disease, and AI Status post aortic valve replacement in March of 2010, receiving a 21 mm M agna bioprosthesis Severe prosthesis stenosis status post TAVR valve in valve on 09/12/22 at [facility]. LV thrombus noted during TAVR case with patient started on heparin, developing a retroperitoneal bleed requiring discontinuation. LV thrombus was resolved on repeat echo and no anticoagulation therapy was given on discharge No coronary disease by preoperative cardiac catheterization, 2009. Repeat cardiac catheterization at [facility], [place] showing mild luminal irregularities of the coronary anatomy, 03/03/2022 Chondrosarcoma of the sternum and chest, status post partial resection with redo surgery April 2017 with resection of the mid lower sternum and right costal cartilage with anterior chest wall reconstruction with mesh and pectoral flap Status post meningioma resection via gamma knife, May 2014 no growth on follow-up 2016 Paroxysmal/Persistent Atrial flutter. Not on chronic anticoagulation due to bleeding complications Chronic diastolic heart failure, severe right heart failure, severe pulmonary hypertension Nocturnal hypoxemia treated with supplemental oxygen, 2 L/min Carotid artery occlusion, right. COPD Mechanical fall with left tentorium subdural hematoma identified December 28, 2018 History of chronic low back pain and spinal stenosis, prior epidural injections. History of ulcerative colitis/diverticulosis. Chronic thrombocytopenia Hypothyroidism B12 deficiency History of hyponatremia secondary to dehydration and alcohol consumption Allergies Allergy/AdvReac Type Severity Reaction Status Date / Time pantoprazole Allergy Intermediate ITCHY RASH Verified 08/27/24 12:57 Penicillins Allergy Intermediate HIVES Verified 08/27/24 12:57 Home Medications Medication Instructions Recorded Confirmed Type acetaminophen 650 mg 2 tab PO BID PRN Pain 04/12/18 01/20/25 History tablet,extended release (Tylenol Arthritis Pain) Oxygen Home 12/04/21 05/12/24 History aspirin 81 mg tablet,delayed 81 mg PO UD 11/10/23 01/20/25 History release cyanocobalamin (vitamin B-12) 1,000 mcg IM Q4WK 11/10/23 01/20/25 History 1,000 mcg/mL injection solution ferrous sulfate 325 mg (65 mg 325 mg PO DAILY 05/12/24 01/20/25 History iron) tablet (Iron (ferrous sulfate)) vitamin B12 1,000 mcg-folic acid 1 tye sublingual DAILY 05/12/24 01/20/25 History 400 mcg sublingual lozenge digoxin 125 mcg (0.125 mg) tablet 125 mcg PO 3XWK 05/13/24 01/20/25 History albuterol sulfate 90 mcg/actuation 2 puff inhalation Q4H PRN 08/27/24 01/20/25 History aerosol inhaler Shortness Of Breath Or Wheezing furosemide 40 mg tablet 60 mg PO BID 08/27/24 01/20/25 History levothyroxine 100 mcg tablet 100 mcg PO DAILYBB 08/27/24 01/20/25 History mesalamine 0.375 gram 1.5 g PO QAM 08/27/24 01/20/25 History capsule,extended release 24 hr folic acid 400 mcg tablet 400 mcg PO DAILY #30 tabs 09/02/24 01/20/25 Rx metoprolol succinate 25 mg 12.5 mg PO DAILY 01/20/25 01/20/25 History tablet,extended release 24 hr midodrine 5 mg tablet 10 mg PO TID 01/20/25 01/20/25 History tiotropium 2.5 mcg-olodaterol 2.5 2 puff inhalation DAILY 01/20/25 01/20/25 History mcg/actuation mist for inhalation (Stiolto Respimat) Patient History Medical History Chest tightness Heart failure, diastolic, with acute decompensation Atrial flutter with rapid ventricular response Severe tricuspid regurgitation Atrial flutter with controlled response Crohn disease Hypothyroidism COPD (chronic obstructive pulmonary disease) HAS O2 BUT NOT USING CURRENLTY Atrial fibrillation with RVR History of thyroidectomy (Unknown) GERD (gastroesophageal reflux disease) Hx of sarcoma of bone SURGERY ONLY Poor historian Acute on chronic diastolic heart failure due to valvular disease Carotid artery occlusion NO SURGERY ON CAROTID Crohns disease Spinal stenosis Osteoarthritis Cardiac murmur FOLLOWS WITH [employer] CARDS Hyperlipidemia Former smoker Surgical History S/P TAVR (transcatheter aortic valve replacement) H/O knee surgery LEFT History of colonoscopy History of tooth extraction History of tonsillectomy X 2 S/P aortic valve replacement 12+ YEARS AGO *[facility] "NEEDS REPAIRED" History of thoracic surgery SARCOMA REMOVED History of appendectomy Family History Mother Coronary heart disease Father Coronary heart disease Other No family history of adverse response to anesthesia Social History Smoking Status: Former smoker Tobacco Type: Cigarettes Second Hand Exposure: No; Do You Dip or Chew Tobacco: No; Hx Alcohol Use: No Hx Substance Use: No Preferred Language: Thai Communication Ability: Effective Cotton Weigher Required: No Beliefs That Will Affect Care: None Current Living Situation: Other Current Living Situation Comment: home alone with 24 hour care Other Information That Helps Us Care for You: No Feels Safe at Home: Yes Safety Concerns: Feels Safe At This Time Assistive Devices: Walker Review of Systems Review of Systems: Unable to be obtained secondary to patient's status. Physical Exam Physical Exam: General: Alert to person. Thin. Frail Neck: + JVD. + Bilateral carotid bruits Lungs: Diminished. Absent breath sounds 1/2 on the left, 1/4 on the right. Right basilar rales. No wheeze. Heart: Irregular at 90 bpm. Right sided heave. Grade III/ systolic murmur. No diastolic murmur. Abdomen: + BS. Nontender. No organomegaly. Extremities: Marked stasis changes. 1-2+ edema. Results & Data Vital Signs (Past 12 Hours) Vital Signs Temp Pulse Pulse Resp BP Pulse Ox Pulse Ox 01/21/25 07:38 90 01/21/25 07:28 36.3 C L 81 17 97/64 L 91 01/21/25 07:20 103 H 22 93 01/21/25 06:43 37 C 84 24 94 01/21/25 03:26 101 H 17 93 01/21/25 03:03 78 16 104/50 L 97 01/21/25 00:58 35.8 C L 74 01/20/25 23:55 51 L 16 105/73 97 01/20/25 23:00 57 L 01/20/25 22:55 50 L 01/20/25 22:39 71 16 96 01/20/25 22:21 01/20/25 22:05 35.1 C L 92 H 16 99/69 L 97 01/20/25 22:00 37 C 84 24 96 01/20/25 22:00 97 O2 Del Method O2 Del Method O2 Flow Rate O2 Flow Rate FiO2 01/21/25 07:38 01/21/25 07:28 High Flow Nasal Cannula 35 01/21/25 07:20 High Flow Nasal Cannula 35 40 01/21/25 06:43 High Flow Nasal Cannula 35 40 01/21/25 03:26 High Flow Nasal Cannula 35 40 01/21/25 03:03 High Flow Nasal Cannula 35 40 01/21/25 00:58 01/20/25 23:55 High Flow Nasal Cannula 35 40 01/20/25 23:00 01/20/25 22:55 01/20/25 22:39 High Flow Nasal Cannula 35 40 01/20/25 22:21 High Flow Nasal Cannula 01/20/25 22:05 High Flow Nasal Cannula 30 40 01/20/25 22:00 High Flow Nasal Cannula 35 40 01/20/25 22:00 High Flow Nasal Cannula 40 Laboratory Results Cardiac Enzymes 01/20/25 01/20/25 01/20/25 Range/Units 18:25 18:58 19:52 AST TNP 30 Troponin I High Sens 40.6 H 43.2 H (0-14) pg/ml B-Natriuretic Peptide 1080 H (0-100) pg/ml 01/21/25 Range/Units 05:56 AST 26 Troponin I High Sens 57.7 H* D (0-14) pg/ml B-Natriuretic Peptide (0-100) pg/ml Coagulation 01/20/25 01/20/25 01/21/25 Range/Units 18:25 18:58 05:56 PT 18.6 H 18.6 H (9.0-12.0) Seconds B-Natriuretic Peptide 1080 H (0-100) pg/ml CBC 01/20/25 01/21/25 Range/Units 18:25 05:56 WBC 4.15 L 4.91 (4.8-10.8) K/ul RBC 4.79 4.36 (4.20-5.40) M/uL Hgb 15.7 14.2 (12.0-16.0) g/dl Hct 48.6 H 43.1 (37.0-47.0) % Plt Count 90 L 102 L (130-400) K/uL Neut # (Auto) 3.12 (1.40-6.50) K/uL Lymph # (Auto) 0.56 L (1.20-3.40) K/uL [place] # (Auto) 0.46 (0.11-0.59) K/uL Eos # (Auto) 0.00 (0.00-0.50) K/uL Baso # (Auto) 0.00 (0.00-0.20) K/uL Comprehensive Metabolic Panel 01/20/25 01/20/25 01/21/25 Range/Units 18:25 19:52 05:56 Sodium 136 137 (136-145) mmol/L Potassium TNP 4.1 4.3 Chloride 92 L 94 L (98-107) mmol/L Carbon Dioxide 34 H 33 H (21-32) mmol/L BUN 62 H 62 H (6-23) mg/dl Creatinine 1.40 H 1.50 H (0.6-1.2) mg/dl Glucose 78 63 L (70-99(Fasting)) mg/dl Calcium 9.7 9.5 (8.6-10.3) mg/dl AST TNP 30 26 ALT 7 7 (7-52) U/L Alkaline Phosphatase 71 63 (34-104) U/L Total Protein 8.2 7.3 (6.0-8.3) gm/dl Albumin 3.2 L 2.9 L (3.4-5.0) gm/dl Intake and Output 01/20/25 01/21/25 01/21/25 22:59 06:59 14:59 Intake Total 50 / 150 100 / 150 Output Total 150 / 150 Balance 50 / 0 -50 / 0 Intake: IV 50 / 150 100 / 150 Doxycycline Hyclate 100 mg In 100 / 100 Dextrose 5% Mini-B 100 ml @ 50 mls/hr IV Q12H [facility] Rx#:[id number] cefTRIAXone SODIUM 2,000 mg In 50 / 50 50 ml @ 100 mls/hr IV NOW STA Rx#:[id number] Output: Urine Amount (Catheter) 150 / 150 Palma/Indwelling 150 / 150 Other: Weight 78.8 kg 78.8 kg Weight Measurement Method Built in [facility] Built in [facility] Diagnostic Findings August 28, 2024 TTE: Left ventricular ejection fraction 55 to 60%. Severely dilated right ventricle. Moderately reduced RV systolic function. Severely dilated right atrium. No prosthetic aortic valve stenosis. Moderate mitral regurgitation. Severe tricuspid valve regurgitation. Severe pulmonary hypertension. Estimated systolic pulmonary pressure 66 mmHg. Moderate left pleural effusion. EKG on January 20, 2025 revealed atrial flutter with ventricular rate of 60 bpm, low voltage QRS. Possible old inferior infarct. Telemetry: Atrial flutter throughout currently at 90 bpm. Lowest 54 bpm noted overnight. PG Care Time/CCT Total # of Minutes Spent Total Time Spent with Patient: Total time spent is greater than 50% in coordination of care (as documented) at patient's floor/unit and/or counseling patient. I spent a total of 90 minutes on the date of service in preparation, delivery, and documentation of the care provided to this patient excluding any time spent in the performance of separately billed services. This visit was a split-shared visit with the substantive portion of the medical decision making performed by the supervising assembler latches and springs/billing provider, Dr. Hester. Coding Level of Care Code 25654 IN/OBS CONSULT LVL 5,80M Diagnoses Acute on chronic heart failure with preserved ejection fraction (HFpEF) I50.33 Ascites R18.8 Chronic hypotension I95.89 Secondary pulmonary arterial hypertension I27.21 Bilateral pleural effusion J90 Elevated troponin R79.89
--- NOTE | 2025-01-21 09:39 | CT Scan Report ---
Clinical History: Altered mental status Technique: Axial computed tomography images were obtained of the brain without intravenous contrast. Comparison is made to the prior CT dated 08/27/2024 Findings: There is unchanged cerebral atrophy, within expected limits for the patient's age. Areas of decreased attenuation are seen within the periventricular white matter, likely representing chronic small vessel ischemic disease. There is no definite sign of acute or old infarction. No intracranial hemorrhage is evident. No definite mass lesion is seen on this noncontrast examination. There is no midline shift or other form of herniation. No hydrocephalus is seen. No fracture is identified. The orbits and the visualized paranasal sinuses appear unremarkable. The mastoid air cells appear clear. Impression: 1. Cerebral atrophy and chronic small vessel ischemic disease 2. Otherwise unremarkable noncontrast CT of the brain Electronically signed by Jose Armando Mcdonald 01-21-2025 09:38 AM
--- NOTE | 2025-01-21 09:42 | Ultrasound Report ---
Clinical history: Hyperbilirubinemia Technique: Sonography was performed of the right upper quadrant of the abdomen Findings: The liver is nodular in contour and coarsened echotexture, consistent with cirrhosis. No definite liver mass is seen There is apparent gallbladder sludge. No clear gallstones are identified. The gallbladder wall is slightly thickened at 4 mm. Overlying tenderness was detected. There is no intrahepatic or extrahepatic bile duct dilatation. The common bile duct measures 4 mm The right kidney demonstrates normal cortical thickness and echogenicity. There is no hydronephrosis. No definite renal calculus or mass is seen. There is a 1.6 cm right renal cyst The pancreas could not be visualized. There is a moderate amount of ascites Impression: 1. Possible acalculus cholecystitis with gallbladder sludge, mild gallbladder wall thickening, and overlying tenderness. No clear gallstones are seen 2. Cirrhosis 3. Moderate amount of ascites 4. Right renal cyst ACT 112: Positive. There are findings on this exam that require communication between the performing entity and the patient following Patient Test Result Information Act ([place] ACT 112) guidelines. Electronically signed by Jose Armando Mcdonald 01-21-2025 09:42 AM
[2025-01-21] MEDS: cefTRIAXone SODIUM 2,000 MG/50 ML BAG IV SCH (09:58)
[2025-01-21] MEDS: METOPROLOL SUCC 25MG EXT REL TAB PO SCH (11:15)
--- NOTE | 2025-01-21 12:08 | XCELERA ---
[id number]
--- NOTE | 2025-01-21 12:24 | Procedure Note ---
Procedure Note Date of Service January 21, 2025 Bedside Ultrasound: Lung: Right:-No pleural effusion, curtain sign appreciated Left:-Small to moderate left-sided pleural effusion with atelectasis of the left lower lobe Abdomen: Large ascites fluid free-flowing Please note the above document was generated using voice recognition software. It may contain grammatical, syntax or spelling errors.Any formal questions or concerns about the content, text or information contained within the body of this dictation should be directly addressed to the provider for clarification. [facility] [place] Procedure Codes (Charges) Pulmonary/Thoracic Procedure 1: Pulmonary and Thoracic: 03863 US, Chest, real time with imaging documentation Coding CPT Codes Pulmonary/Thoracic - Pulmonary and Thoracic: 84248 US, Chest, real time with imaging documentation ([id number]) Additional Codes Date of Service (PG.SURGERY)
--- NOTE | 2025-01-21 12:26 | Procedure Note ---
Procedure Note Date of Service January 21, 2025 Procedure: Diagnostic therapeutic ultrasound-guided catheter paracentesis Legal Analyst: Dr. Ameya Alcala Indication: Ascites for symptomatic relief and to rule out SBP Consent: Signed by patient's daughter and verified with timeout prior to procedure Anesthesia: 1% lidocaine without epinephrine local. Procedure: Consent was verified and timeout performed. Ultrasound was used to locate the appropriate pocket of fluid and images were stored Patient was placed in a supine position and limited abdominal ultrasound was performed. See separate imaging. Appropriate site for paracentesis in the right lower quadrant was selected. The skin was prepped and draped in normal sterile fashion. Lidocaine was used for local analgesia. Fluid was aspirated via the finder needle. A small skin rasheeda was made with the scalpel and the catheter over the needle apparatus was advanced via Z technique. Using the syringe one-way valve system, a total of 3100 mL's of sanguinous fluid was removed. The catheter was removed and observed to be intact. A sterile dressing was applied. Fluid was sent for labs, culture and cytology. The patient tolerated the procedure without obvious complication Blood loss: Less than 2 cc [facility] [place] Codes (Charges) Abdomen Abdominal: 98524 Abdominal Paracentesis (diagnostic or therapeutic); W/O imaging Coding CPT Codes Abdomen - Abdominal: 47415 Abdominal Paracentesis (diagnostic or therapeutic); W/O imaging ([id number]) Additional Codes Date of Service (PG.SURGERY)
[2025-01-21] MEDS: ALBUMIN 25% 12.5 GM/50 ML VIAL IV SCH (12:33)
[2025-01-21 13:16] LABS: Appearance Peritoneal Fluid Cloudy; Color Peritoneal Fluid Red; RBC Peritoneal Fluid Auto 41000 /uL; WBC Peritoneal Fluid Auto 743 /ul (0-300)
[2025-01-21 13:18] LABS: Albumin Peritoneal Fluid 1.6 gm/dl; Lipase Peritoneal Fluid 13.0 U/L
[2025-01-21 13:33] LABS: Lymphocytes, Fluid 13 %; Mono,Macrophage,Mesothelial 29 %; Neutrophils, Fluid 58 %
[2025-01-22 06:07] LABS: Hematocrit (blood only) 44.4 % (37.0-47.0); Hemoglobin 14.4 g/dl (12.0-16.0); Mean Corpuscular Hemoglobin 32.2 pg (25.0-34.0); Mean Corpuscular Volume 99.3 fL (80.0-100.0); Platelet Count 86 K/uL (130-400); RDW Standard Deviation 64.9 fL (36.4-46.3); Red Blood Count 4.47 M/uL (4.20-5.40); White Blood Count 4.70 K/ul (4.8-10.8)
[2025-01-22 06:28] LABS: Albumin Globulin Ratio 0.8 (0.9-2); Anion Gap 12.0 (3-11); Bilirubin,Total 3.2 mg/dl (0.2-1.0); Globulin 4.0 gm/dl (2.5-4.0); Magnesium 2.4 mg/dl (1.7-2.4); Sodium 135.0 mmol/L (136-145); Total Protein 7.2 gm/dl (6.0-8.3)
[2025-01-22 06:29] LABS: Alanine Aminotransferase 5.0 U/L (7-52); Alkaline Phosphatase 53.0 U/L (34-104); Blood Urea Nitrogen 66.0 mg/dl (6-23); Calcium 9.6 mg/dl (8.6-10.3); Carbon Dioxide 31.0 mmol/L (21-32); Chloride 92.0 mmol/L (98-107); Creatinine Clr Calc Pharmacy 25.0 ml/min; Glucose 86.0 mg/dl (70-99(Fasting)); Potassium 4.4 mmol/L (3.5-5.1)
--- NOTE | 2025-01-22 07:27 | Electrocardiogram Report ---
Test Reason : Blood Pressure : */* mmHG Vent. Rate : 60 BPM Atrial Rate : 60 BPM P-R Int : 134 ms QRS Dur : 86 ms QT Int : 420 ms P-R-T Axes : -7 -13 157 degrees QTcB Int : 420 ms Atrial fibrillation vs flutter Low voltage QRS possible Inferior infarct , age undetermined Abnormal ECG When compared with ECG of 27-Aug-2024 11:27, T wave inversion now evident in Lateral leads Confirmed by Jim Stephen ([id number]) on 01/22/2025 7:26:45 AM Referred By: Leyda Ahn Confirmed By: Jim Stephen
--- NOTE | 2025-01-22 10:11 | Hospitalist Progress Note ---
Date of Service January 22, 2025 Assessment & Plan (1) Acute on chronic heart failure with preserved ejection fraction (HFpEF): Plan: 84-year-old female with history of diastolic heart failure, valvular heart disease (moderate mitral regurgitation, severe tricuspid regurgitation), chronic hypotension, pulmonary hypertension, ulcerative colitis, paroxysmal atrial fibrillation, COPD, chronic thrombocytopenia, hypothyroidism, chondrosarcoma, TAVR, B12 deficiency, meningioma, Crohn's disease, hemangioma of liver, chronic oxygen dependency on 2 L at bedtime, moderate dementia as per record, alcohol use disorder, past tobacco use disorder, recurrent falls and other medical problems presents with history of altered mental status, failure to thrive. Acute on chronic respiratory failure with hypoxia and hypercarbia Acute on chronic diastolic heart failure Valvular heart disease: Moderate mitral regurgitation, severe tricuspid regurgitation S/P TAVR, Pulmonary hypertension Chronic oxygen dependency: Currently using 2 L at home Labs on admission notable for platelet of 90, INR 1.8,ABG pH of 7.37/pCO2 62, Cr 1.4, BUN 62, lactate 3.1, BNP 1080, Trop 40>>57.7 --CXR: Large left pleural effusion, Left lower lobe opacity that may be due to either atelectasis or pneumonia, Cardiomegaly and mild pulmonary edema --BioFire negative Very poor urine output Currently on IV lasix Monitor Daily weight, I/Os, electrolytes, renal function Continue home metoprolol, digoxin Cardiology and Pulmonology on board Sepsis Presented with lactic acidosis with KRIS, hypothermia Lactic acidosis and KRIS could also be due to heart failure Possible sources: Community-acquired pneumonia, leg cellulitis, SBP Required Neri hugger initially for hypothermia Had Paracentesis on 01/21/25 with 3.1L fluid removed. Got albumin afterwards Peritoneal fluid analysis suggests SBP even after correction for RBC Continue IV ceftriaxone and doxycycline Acute kidney injury Likely ATN Not making much urine output in the past 24h Discussed with Nephro who recommends increasing lasix to 40mg TID and adding albumin 25g TID Avoid nephrotoxic agents as able Acute metabolic encephalopathy CT head did not show any acute abnormalities Neurochecks Aspiration precautions Liver cirrhosis with ascites Hyperbilirubinemia H/O alcohol use disorder H/O hemangioma of liver No recent alcohol use per patient's family Daughter reports cirrhosis is a new diagnosis for her Paracentesis suggests SBP as above She follows with GI outpatient for IBD and hyperbilirubinemia Chronic troponin elevation Less likely ACS Likely demand ischemia Troponin level on admission better when compared to trop in August 2024 H/O chronic thrombocytopenia No acute bleeding issues Monitor Chronic hypotension Continue midodrine Paroxysmal atrial fibrillation Continue metoprolol, digoxin Not on chronic anticoagulation Rate controlled COPD Prior tobacco use disorder Continue nebs for now Hypothyroidism H/O multinodular goiter Continue levothyroxine H/O sternal chondrosarcoma S/P stem ostomy Meningioma S/P gamma knife surgery Crohn's disease Was on mesalamine at home Moderate dementia Recurrent falls As per record Will get PT/OT eval once stable DVT Px:SCDs Code Status DNI/DNR: I called daughter and updated her. Reviewed findings and her poor prognosis She reports that they are aware. They maintain DNR, no dialysis and will like to continue current therapies with IV meds/antibiotics, but if patient does not improve or continues worsen, they will make plans for home hospice. I spent a total of 60 minutes coordinating, documenting and providing care for this patient excluding time spent in performance of separately billed services Admission and Anticipated Discharge Date Admission Date: January 20, 2025 Subjective Patient seen and examined She is alert and oriented to person, knows she is in a hospital but does not know name of hospital, not oriented to time Other ROS limited due to cognitive status Had 3.1L fluid removed via paracentesis yesterday Physical Exam Constitutional: + ill appearing Eyes: Anisocoria (granddaughter at bedside noted patient had left eye issues in the past) ENMT: external ear and nose normal, oropharynx normal Respiratory: On nasal cannula, diminished breath sounds Cardiovascular: Rate/Rhythm: + irregularly irregular Gastrointestinal (Abdomen): Soft, abd distention improved, nontender Musculoskeletal: B/L LE edema Neurologic: PERRL, EOMI Alert and oriented to person. Limited exam Genitourinary: Palma in situ, pinkish urine in tube Results & Data Results & Data Vital Signs (Past 12 Hours) Vital Signs Temp Pulse Pulse Resp BP BP Pulse Ox 01/22/25 07:52 95 H 14 97 01/22/25 07:03 36.3 C L 97 H 18 104/64 94 01/22/25 03:53 35.6 C L 97 H 14 94/62 L 88/53 L 92 01/22/25 01:03 99 H 01/21/25 23:20 35.4 C L 98 H 16 102/63 94 01/21/25 23:20 81 L O2 Del Method O2 Flow Rate 01/22/25 07:52 Nasal Cannula 2 01/22/25 07:03 Nasal Cannula 2 01/22/25 03:53 Nasal Cannula 2 01/22/25 01:03 01/21/25 23:20 Nasal Cannula 2 01/21/25 23:20 Room Air Laboratory Results Abnormal lab results 01/21/25 01/22/25 Range/Units 12:15 05:22 WBC 4.70 L (4.8-10.8) K/ul RDW Std Deviation 64.9 H (36.4-46.3) fL RDW Coeff of Brendon 18.5 H (11.5-14.5) % Plt Count 86 L (130-400) K/uL Sodium 135 L (136-145) mmol/L Chloride 92 L (98-107) mmol/L Anion Gap 12 H (3-11) BUN 66 H (6-23) mg/dl Creatinine 1.78 H (0.6-1.2) mg/dl BUN/Creatinine Ratio 37.1 H (10-20) Phosphorus 5.0 H (2.5-4.9) mg/dl Total Bilirubin 3.2 H (0.2-1.0) mg/dl ALT 5 L (7-52) U/L Albumin 3.2 L (3.4-5.0) gm/dl Albumin/Globulin Ratio 0.8 L (0.9-2) Peritoneal WBC (Auto) 743 H (0-300) /ul
--- NOTE | 2025-01-22 11:08 | Pulmonology Progress Note ---
Date of Service January 22, 2025 Assessment & Plan (1) Pleural effusion: (2) Acute hypoxemic respiratory failure: (3) Acute on chronic heart failure with preserved ejection fraction (HFpEF): (4) Ascites: Plan CT chest 08/27/2024 personally reviewed: Small left-sided pleural effusion compressive atelectasis of the left lower lobe Cardiomegaly No significant mediastinal lymphadenopathy Chest x-ray 01/20/2025 personally reviewed: Portable film, good inspiratory effort, mild blunting of the right costophrenic angle, blunting of the left costophrenic angle increased cardiac silhouette 2D echo 08/28/2024: EF 50-60%, RV severely dilated with PASP 66 mmHg, moderate MR, severe TR --Acute hypoxic respiratory failure Left-sided pleural effusion Previous thoracentesis on 08/29/2024, 600 mL fluid, lymphocytic, transudative Cytology negative for malignancy BNP 1080 Procalcitonin 0.16, respiratory BioFire negative for everything Abdominal ascites, the etiology for pleural effusion is most likely cardiac in origin, she also has significant ascitic fluid which could be transposition into the left pleural space --Pulmonary hypertension Likely type II -- COPD On Stiolto at home Not in acute exacerbation Plan: Peritoneal fluid seems to have elevated WBC count going towards SBP. SAAG > 1.1 going more towards cardiac etiology Continue with Rocephin to cover for it. Patient does have left-sided pleural effusion but she is resting comfortably. Saturating well on room air now. Okay to hold back on thoracentesis. If there is any worsening then would recommend thoracentesis by IR on Thursday The etiology for pleural effusion as well as ascites is most likely cardiac in origin, she also has significant ascitic fluid which could be transposition into the left pleural space No further recommendation from pulmonary perspective, will sign off Please call directly with any questions Please note the above document was generated using voice recognition software. It may contain grammatical, syntax or spelling errors.Any formal questions or concerns about the content, text or information contained within the body of this dictation should be directly addressed to the provider for clarification. Admission and Anticipated Discharge Date Admission Date: January 20, 2025 Subjective Patient seen and examined at bedside. No acute distress, no symptoms overnight She was saturating 99% on 2 L nasal cannula. I went down to 1 L Patient's [id number] was in the room Patient seems to be more awake and alert compared to yesterday Complain of some abdominal discomfort. Appetite is poor, no nausea or vomiting Denied any headache or blurry vision Review of Systems 2 Review of Systems: All systems reviewed & are unremarkable except as noted in Subjective Physical Exam 2 Physical Exam: Constitutional: No acute distress HEENT: EOMI, PERRLA Respiratory system: Decreased air entry bilaterally, more decreased on the left side, no wheeze, no rhonchi, positive crackles CVS: S1-S2 positive, positive 2 out of 6 systolic murmur appreciated best at left parasternal border Abdomen: Soft, nontender, distended, positive bowel sounds x4 Extremities: +2 pulses bilaterally radialis/ dorsalis pedis, no cyanosis, +2 pitting edema bilateral lower extremity Neuro: Awake and alert, oriented to himself Psych: Flat mood and affect G/U: Positive Palma Skin: no rashes, warm and dry Lymphatic: no cervical or axillary lymphadenopathy Results & Data Results & Data Vital Signs (Past 12 Hours) Vital Signs Temp Pulse Pulse Resp BP BP Pulse Ox 01/22/25 10:51 85 15 96 01/22/25 07:52 95 H 14 97 01/22/25 07:03 36.3 C L 97 H 18 104/64 94 01/22/25 03:53 35.6 C L 97 H 14 94/62 L 88/53 L 92 01/22/25 01:03 99 H 01/21/25 23:20 35.4 C L 98 H 16 102/63 94 01/21/25 23:20 81 L O2 Del Method O2 Flow Rate 01/22/25 10:51 Nasal Cannula 2 01/22/25 07:52 Nasal Cannula 2 01/22/25 07:03 Nasal Cannula 2 01/22/25 03:53 Nasal Cannula 2 01/22/25 01:03 01/21/25 23:20 Nasal Cannula 2 01/21/25 23:20 Room Air Laboratory Results 01/22/25 05:22 01/22/25 05:22 PG Care Time/CCT Total # of Minutes Spent Total Time Spent with Patient: Total time spent is greater than 50% in coordination of care (as documented) at patient's floor/unit and/or counseling patient: Coding Level of Care Code 62190 SUB INP/OBS CARE 2/35MIN Diagnoses Pleural effusion J90 Acute hypoxemic respiratory failure J96.01 Acute on chronic heart failure with preserved ejection fraction (HFpEF) I50.33 Ascites R18.8
--- NOTE | 2025-01-22 12:06 | Electrocardiogram Report ---
Test Reason : Blood Pressure : */* mmHG Vent. Rate : 86 BPM Atrial Rate : 197 BPM P-R Int : * ms QRS Dur : 82 ms QT Int : 346 ms P-R-T Axes : 71 -24 159 degrees QTcB Int : 414 ms Atrial flutter with variable A-V block Low voltage QRS Nonspecific ST abnormality When compared with ECG of 22-Jan-2025 05:58, (unconfirmed) Atrial flutter has replaced Sinus rhythm ST now depressed in Inferior leads T wave inversion no longer evident in Inferior leads T wave inversion no longer evident in Anterior leads T wave inversion more evident in Lateral leads QT has shortened Confirmed by Jim Stephen ([id number]) on 01/22/2025 12:06:19 PM Referred By: Leyda Ahn Confirmed By: Jim Stephen
--- NOTE | 2025-01-22 12:07 | Electrocardiogram Report ---
Test Reason : Blood Pressure : */* mmHG Vent. Rate : 80 BPM Atrial Rate : 96 BPM P-R Int : * ms QRS Dur : 80 ms QT Int : 408 ms P-R-T Axes : * 95 220 degrees QTcB Int : 470 ms Atrial fibrillation Low voltage QRS Possible Anterolateral infarct (cited on or before 27-Aug-2024) Abnormal ECG When compared with ECG of 20-Jan-2025 18:56, Questionable change in initial forces of Anterior leads Non-specific change in ST segment in Inferior leads T wave inversion now evident in Inferior leads Confirmed by Jim Stephen ([id number]) on 01/22/2025 12:07:42 PM Referred By: Leyda Ahn Confirmed By: Jim Stephen
[2025-01-22] MEDS: ALBUMIN 25% 25 GM/100 ML VIAL IV SCH (13:50)
[2025-01-22] MEDS: FUROSEMIDE 40 MG/4 ML VIAL IV SCH (13:53)
[2025-01-22] MEDS ORDERED: ALBUT/IPRATROP 3MG/0.5MG NEB 3 ML VIAL NEB PRN (14:56)
--- NOTE | 2025-01-22 15:51 | Nephrology Consultation ---
Date of Consultation January 22, 2025 Assessment & Plan (1) Acute kidney injury: Acute kidney injury-- 2/ volume overload ( Ascitis / pleural effusion)due to Acute on chronic diastolic heart failure Likely ATN, previous normal renal fucntions UOP in Oligoanuric range Recommends increasing lasix to 40mg TID and adding albumin 25g TID, continue on midodrine at current dose -Continue to manage this conservatively, Family has opted NOT for dialysis if neeed, All efforts to make her comfortable Avoid nephrotoxic agents as able (2) Acute on chronic heart failure with preserved ejection fraction (HFpEF): Lasix as above - Rest as per Cardiology recs (3) Ascites: Had paracentesis Albumin w/ Lasix as above (4) Bilateral pleural effusion: lasix as above Pulmonary on board-- f/w w/ theit recs. History of Present Illness Attending Physician: Chantal Cardona MD History of Present Illness 84-year-old female with recurrent falls and other medical problems presents with history of altered mental status, failure to thrive.Labs on admission notable for platelet of 90, INR 1.8,ABG pH of 7.37/pCO2 62, Cr 1.4, BUN 62, lactate 3.1, BNP 1080, Trop 40>>57.7 Chest X ray showed Large left pleural effusion with likley Pneumonia, she also had large volume ascitis s/p , with elevated WBC, suspicious of SBP, She is on Ceftrioxone. Left lower lobe opacity that may be due to either atelectasis or pneumonia, Cardiomegaly and mild pulmonary edema, Bp has been soft, and her UOP has been in Oligianuric range. Very ill appearing, but comfortable on exam. Her Cr was 0.78 on the labs doen on 09/02/24, No intervening labs until thsi admission when thsi was found to 1.4 and has decline to 1.7 today.UOP has been @ 200 -300 mls daily.Sodium has dropped to 135 from 137 from yesterday, Albumin is 3.2, up from 2.9 yesterday. PMH-history of diastolic heart failure, valvular heart disease (moderate mitral regurgitation, severe tricuspid regurgitation), chronic hypotension, pulmonary hypertension, ulcerative colitis, paroxysmal atrial fibrillation, COPD, chronic thrombocytopenia, hypothyroidism, chondrosarcoma, TAVR, B12 deficiency, meningioma, Crohn's disease, hemangioma of liver, chronic oxygen dependency on 2 L at bedtime, moderate dementia as per record, alcohol use disorder, past tobacco use disorde Allergies Allergy/AdvReac Type Severity Reaction Status Date / Time pantoprazole Allergy Intermediate ITCHY RASH Verified 08/27/24 12:57 Penicillins Allergy Intermediate HIVES Verified 08/27/24 12:57 Home Medications Medication Instructions Recorded Confirmed Type acetaminophen 650 mg 2 tab PO BID PRN Pain 04/12/18 01/20/25 History tablet,extended release (Tylenol Arthritis Pain) Oxygen Home 12/04/21 05/12/24 History aspirin 81 mg tablet,delayed 81 mg PO UD 11/10/23 01/20/25 History release cyanocobalamin (vitamin B-12) 1,000 mcg IM Q4WK 11/10/23 01/20/25 History 1,000 mcg/mL injection solution ferrous sulfate 325 mg (65 mg 325 mg PO DAILY 05/12/24 01/20/25 History iron) tablet (Iron (ferrous sulfate)) vitamin B12 1,000 mcg-folic acid 1 tye sublingual DAILY 05/12/24 01/20/25 History 400 mcg sublingual lozenge digoxin 125 mcg (0.125 mg) tablet 125 mcg PO 3XWK 05/13/24 01/20/25 History albuterol sulfate 90 mcg/actuation 2 puff inhalation Q4H PRN 08/27/24 01/20/25 History aerosol inhaler Shortness Of Breath Or Wheezing furosemide 40 mg tablet 60 mg PO BID 08/27/24 01/20/25 History levothyroxine 100 mcg tablet 100 mcg PO DAILYBB 08/27/24 01/20/25 History mesalamine 0.375 gram 1.5 g PO QAM 08/27/24 01/20/25 History capsule,extended release 24 hr folic acid 400 mcg tablet 400 mcg PO DAILY #30 tabs 09/02/24 01/20/25 Rx metoprolol succinate 25 mg 12.5 mg PO DAILY 01/20/25 01/20/25 History tablet,extended release 24 hr midodrine 5 mg tablet 10 mg PO TID 01/20/25 01/20/25 History tiotropium 2.5 mcg-olodaterol 2.5 2 puff inhalation DAILY 01/20/25 01/20/25 History mcg/actuation mist for inhalation (Stiolto Respimat) Patient History Medical History Chest tightness Heart failure, diastolic, with acute decompensation Atrial flutter with rapid ventricular response Severe tricuspid regurgitation Atrial flutter with controlled response Crohn disease Hypothyroidism COPD (chronic obstructive pulmonary disease) HAS O2 BUT NOT USING CURRENLTY Atrial fibrillation with RVR History of thyroidectomy (Unknown) GERD (gastroesophageal reflux disease) Hx of sarcoma of bone SURGERY ONLY Poor historian Acute on chronic diastolic heart failure due to valvular disease Carotid artery occlusion NO SURGERY ON CAROTID Crohns disease Spinal stenosis Osteoarthritis Cardiac murmur FOLLOWS WITH [facility] CARDS Hyperlipidemia Former smoker Surgical History S/P TAVR (transcatheter aortic valve replacement) H/O knee surgery LEFT History of colonoscopy History of tooth extraction History of tonsillectomy X 2 S/P aortic valve replacement 12+ YEARS AGO *[facility] [place] "NEEDS REPAIRED" History of thoracic surgery SARCOMA REMOVED History of appendectomy Family History Mother Coronary heart disease Father Coronary heart disease Other No family history of adverse response to anesthesia Social History Smoking Status: Former smoker Tobacco Type: Cigarettes Second Hand Exposure: No; Do You Dip or Chew Tobacco: No; Hx Alcohol Use: No Hx Substance Use: No Preferred Language: Iranian Communication Ability: Effective Certified Medicine Aide Required: No Beliefs That Will Affect Care: None Current Living Situation: Other Current Living Situation Comment: home alone with 24 hour care Other Information That Helps Us Care for You: No Feels Safe at Home: Yes Safety Concerns: Feels Safe At This Time Assistive Devices: Walker Physical Exam 2 Physical Exam: Alert and oriented to person. + ill appearing B/L LE xin Results & Data Vital Signs (Past 12 Hours) Vital Signs Temp Pulse Pulse Resp BP BP Pulse Ox 01/22/25 15:28 36.3 C L 99 H 18 94/61 L 98 01/22/25 13:17 104 H 01/22/25 11:08 36.4 C L 99 H 18 96/63 L 94 01/22/25 10:51 85 15 96 01/22/25 07:52 95 H 14 97 01/22/25 07:03 36.3 C L 97 H 18 104/64 94 01/22/25 06:30 01/22/25 03:53 35.6 C L 97 H 14 94/62 L 88/53 L 92 O2 Del Method O2 Flow Rate 01/22/25 15:28 Nasal Cannula 2 01/22/25 13:17 01/22/25 11:08 Nasal Cannula 2 01/22/25 10:51 Nasal Cannula 2 01/22/25 07:52 Nasal Cannula 2 01/22/25 07:03 Nasal Cannula 2 01/22/25 06:30 Nasal Cannula 2 01/22/25 03:53 Nasal Cannula 2 Laboratory Results 01/22/25 05:22 01/22/25 05:22
[2025-01-22] MEDS ORDERED: SODIUM CHLORIDE 0.65% NA SOLN 45 ML (OCEAN) PRN (16:40)
--- NOTE | 2025-01-22 16:42 | Cardiology Progress Note ---
Date of Service January 22, 2025 Assessment & Plan (1) Acute on chronic heart failure with preserved ejection fraction (HFpEF): (2) Ascites: (3) Chronic hypotension: (4) Secondary pulmonary arterial hypertension: (5) Bilateral pleural effusion: (6) Elevated troponin: Plan End stage ill appearing 84-year-old female readmitted with acute on chronic decompensated right heart failure with associated pleural effusion, acute metabolic encephalopathy, possible sepsis, acute kidney injury, auto- anticoagulation. Elevated high-sensitivity troponin likely secondary to demand ischemia in the setting of multiple acute stressors. Past catheterization last in February 2022 with only mild luminal irregularities. 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 with resection of the mid lower sternum and right costal cartilage with anterior chest wall reconstruction with mesh and pectoral flap, status post meningioma resection via gamma knife Acute RHF RV systolic dysfunction Pleural effusion Ascites - s/p paracentesis - about 3 L SBP Moderate mitral regurgitation Severe tricuspid regurgitation S/P TAVR Severe pulmonary hypertension Acute kidney injury on CKD Acute metabolic encephalopathy Abnormal troponin - likely demand ischemia, not indicative of Type I IN Abnormal LFTs Paroxysmal atrial fibrillation COPD Dementia Recurrent falls ABX as per hospitalist correct and f/u electrolytes f/u renal function check Dig level F/U with Renal repeat CXR f/u with Pulmonary ASA not a candidate for chronic anticoagulation due to h/o and risk for fall GDMT for HFpEF limited due to renal insufficiency and low BP adjust rate control meds keeping HR between 60 to 100 BPM and systolic BP between 100-140 mmHg adjust anti-HTN meds keeping systolic BP between 100-140 mmHg avoid hypovolemia keep patient euvolemic DVT prophylaxis keep LE elevated when sitting Daily weights strict I&Os salt restriction Admission and Anticipated Discharge Date Admission Date: January 20, 2025 Subjective Patient on exam is lying in bed in NAD; breathing is stablr; lethargic Review of Systems Review of Systems: Unable to be obtained secondary to patient's status. Physical Exam Physical Exam: General: Alert to person. Thin. Frail Neck: + JVD. + Bilateral carotid bruits Lungs: Diminished. Absent breath sounds 1/2 on the left, 1/4 on the right. Right basilar rales. No wheeze. Heart: Irregular. Right sided heave. Grade III/ systolic murmur. No diastolic murmur. Abdomen: + BS. Nontender. No organomegaly. Extremities: Marked stasis changes. 1+ edema. Results & Data Vital Signs (Past 12 Hours) Vital Signs Temp Pulse Pulse Resp BP Pulse Ox O2 Del Method 01/22/25 15:28 36.3 C L 99 H 18 94/61 L 98 Nasal Cannula 01/22/25 13:17 104 H 01/22/25 11:08 36.4 C L 99 H 18 96/63 L 94 Nasal Cannula 01/22/25 10:51 85 15 96 Nasal Cannula 01/22/25 07:52 95 H 14 97 Nasal Cannula 01/22/25 07:03 36.3 C L 97 H 18 104/64 94 Nasal Cannula 01/22/25 06:30 Nasal Cannula O2 Flow Rate 01/22/25 15:28 2 01/22/25 13:17 01/22/25 11:08 2 01/22/25 10:51 2 01/22/25 07:52 2 01/22/25 07:03 2 01/22/25 06:30 2 Laboratory Results Cardiac Enzymes 01/22/25 Range/Units 05:22 AST 30 (13-39) U/L CBC 01/22/25 Range/Units 05:22 WBC 4.70 L (4.8-10.8) K/ul RBC 4.47 (4.20-5.40) M/uL Hgb 14.4 (12.0-16.0) g/dl Hct 44.4 (37.0-47.0) % Plt Count 86 L (130-400) K/uL Comprehensive Metabolic Panel 01/22/25 Range/Units 05:22 Sodium 135 L (136-145) mmol/L Potassium 4.4 (3.5-5.1) mmol/L Chloride 92 L (98-107) mmol/L Carbon Dioxide 31 (21-32) mmol/L BUN 66 H (6-23) mg/dl Creatinine 1.78 H (0.6-1.2) mg/dl Glucose 86 (70-99(Fasting)) mg/dl Calcium 9.6 (8.6-10.3) mg/dl AST 30 (13-39) U/L ALT 5 L (7-52) U/L Alkaline Phosphatase 53 (34-104) U/L Total Protein 7.2 (6.0-8.3) gm/dl Albumin 3.2 L (3.4-5.0) gm/dl Intake and Output 01/22/25 01/22/25 01/22/25 06:59 14:59 22:59 Intake Total 100 / 424.167 330 / 430 100 / 430 Output Total 3151 200 / 200 Balance 79 / -2726.833 130 / 230 100 / 230 Intake: IV 100 / 384.167 150 / 250 100 / 250 Albumin 25% 25 gm In 100 ml @ 100 / 100 50 mls/hr IV Q8H [facility] Rx#: [id number] Doxycycline Hyclate 100 mg In 100 / 200 100 / 100 Dextrose 5% Mini-B 100 ml @ 50 mls/hr IV Q12H [facility] Rx#:[id number] cefTRIAXone SODIUM 2,000 mg In 50 / 50 50 ml @ 100 mls/hr IV Q24H [facility] Rx#:[id number] Oral 180 / 180 Output: Urine Amount (Catheter) 200 / 200 [place]/Indwelling 200 / 200 Diagnostic Findings Laboratory Results WBC 4.70 K/ul (4.8-10.8) L 01/22/25 05:22 RBC 4.47 M/uL (4.20-5.40) 01/22/25 05:22 Hgb 14.4 g/dl (12.0-16.0) 01/22/25 05:22 POC Hgb 16.7 g/dl (12.0-16.0) H 01/20/25 18:27 Hct 44.4 % (37.0-47.0) 01/22/25 05:22 POC Hct 49 % (37-47) H 01/20/25 18:27 MCV 99.3 fL (80.0-100.0) 01/22/25 05:22 MCH 32.2 pg (25.0-34.0) 01/22/25 05:22 MCHC 32.4 g/dL (32.0-36.0) 01/22/25 05:22 RDW Std Deviation 64.9 fL (36.4-46.3) H 01/22/25 05:22 RDW Coeff of Brendon 18.5 % (11.5-14.5) H 01/22/25 05:22 Plt Count 86 K/uL (130-400) L 01/22/25 05:22 MPV 10.3 fL (9.4-12.4) 01/22/25 05:22 Immature Gran % (Auto) 0.2 % 01/20/25 18: Neut % (Auto) 75.2 % 01/20/25 18:25 Lymph % (Auto) 13.5 % 01/20/25 18:25 [place] % (Auto) 11.1 % 01/20/25 18:25 Eos % (Auto) 0.0 % 01/20/25 18: Baso % (Auto) 0.0 % 01/20/25 18: Neut # (Auto) 3.12 K/uL (1.40-6.50) 01/20/25 18: Lymph # (Auto) 0.56 K/uL (1.20-3.40) L 01/20/25 18:25 [place] # (Auto) 0.46 K/uL (0.11-0.59) 01/20/25 18:25 Eos # (Auto) 0.00 K/uL (0.00-0.50) 01/20/25 18:25 Baso # (Auto) 0.00 K/uL (0.00-0.20) 01/20/25 18: Immature Gran # (Auto) 0.01 K/uL (0.01-0.20) 01/20/25 18:25 Absolute Nucleated RBC 0.02 K/uL (0.00-0.12) 01/22/25 05:22 Nucleated RBC % (auto) 0.4 % 01/22/25 05:22 PT 18.6 Seconds (9.0-12.0) H 01/21/25 05:56 INR 1.8 (0.9-1.1) H 01/21/25 05:56 Specimen Type Arterial 01/20/25 18:27 Sample Site R Radial 01/20/25 18:27 POC pH 7.37 (7.35-7.45) 01/20/25 18:27 POC pCO2 62 mmHg (35-46) H 01/20/25 18:27 POC pO2 333 mmHg (80-95) H 01/20/25 18:27 POC HCO3 36 melanie/L (19-24) H 01/20/25 18:27 POC Total CO2 37 mmol/L (24-31) H 01/20/25 18:27 POC Base Excess 10.0 melanie/L (-9-1.8) H 01/20/25 18:27 ABG pH (Temp Correct) 7.386 (7.35-7.45) 01/20/25 18:27 ABG pCO2 (Temp Corrct 58 mmHg (35-46) H 01/20/25 18:27 POC ABG pO2 at Pt Temp 326 01/20/25 18:27 POC ABG O2 Sat 100.0 % (90-95) H 01/20/25 18:27 [place] Test Pass 01/20/25 18:27 VBG pH 7.44 (7.36-7.41) H 01/21/25 05:56 VBG pCO2 55 mmHg (38-50) H 01/21/25 05:56 VBG pO2 59 mmHg 01/21/25 05:56 VBG HCO3 37 mmol/L 01/21/25 05:56 VBG O2 Saturation 90.5 % 01/21/25 05:56 VBG Base Excess 11.1 mEq/L 01/21/25 05:56 O2 Delivery Device Hi Boris Can 01/20/25 18:27 POC FiO2 100 % 01/20/25 18:27 POC Sodium 137 mmol/L (135-144) 01/20/25 18:27 Sodium 135 mmol/L (136-145) L 01/22/25 05:22 POC Potassium 3.9 mmol/L (3.3-5.0) 01/20/25 18:27 Potassium 4.4 mmol/L (3.5-5.1) 01/22/25 05:22 POC Chloride 92 mmol/L (101-112) L 01/20/25 18:26 Chloride 92 mmol/L (98-107) L 01/22/25 05:22 Carbon Dioxide 31 mmol/L (21-32) 01/22/25 05:22 POC Total CO2 34 mmol/L (24-31) H 01/20/25 18:26 Anion Gap 12 (3-11) H 01/22/25 05:22 POC Anion Gap 16.0 mmol/L (16-25) 01/20/25 18:26 POC BUN 75 mg/dl (7-18) H 01/20/25 18:26 BUN 66 mg/dl (6-23) H 01/22/25 05:22 Creatinine 1.78 mg/dl (0.6-1.2) H 01/22/25 05:22 POC Creatinine 1.5 mg/dl (0.6-1.3) H 01/20/25 18:26 Est Cr Clr Drug Dosing 25.0 ml/min 01/22/25 05:22 eGFR 27.64 01/22/25 05:22 BUN/Creatinine Ratio 37.1 (10-20) H 01/22/25 05:22 Glucose 86 mg/dl (70-99(Fasting)) 01/22/25 05:22 POC Glucose (other) 81 mg/dl (70-99) 01/20/25 18:26 Lactate 3.0 mmol/L (0.4-2.0) H* 01/21/25 09:01 Calcium 9.6 mg/dl (8.6-10.3) 01/22/25 05:22 POC Ioniz Calcium Natalie 1.00 mmol/l (1.12-1.32) L 01/20/25 18:26 Phosphorus 5.0 mg/dl (2.5-4.9) H 01/22/25 05:22 Magnesium 2.4 mg/dl (1.7-2.4) 01/22/25 05:22 Total Bilirubin 3.2 mg/dl (0.2-1.0) H 01/22/25 05:22 AST 30 U/L (13-39) 01/22/25 05:22 ALT 5 U/L (7-52) L 01/22/25 05:22 Alkaline Phosphatase 53 U/L (34-104) 01/22/25 05:22 Troponin I High Sens 57.7 pg/ml (0-14) H* D 01/21/25 05:56 B-Natriuretic Peptide 1080 pg/ml (0-100) H 01/20/25 18:58 Total Protein 7.2 gm/dl (6.0-8.3) 01/22/25 05:22 Albumin 3.2 gm/dl (3.4-5.0) L 01/22/25 05:22 Globulin 4.0 gm/dl (2.5-4.0) 01/22/25 05:22 Albumin/Globulin Ratio 0.8 (0.9-2) L 01/22/25 05:22 Procalcitonin 0.16 ng/ml (0-0.5) 01/20/25 19:52 TSH 2.933 uIu/ml (0.300-4.500) 01/20/25 18:25 Urine Color Dark Yellow 01/20/25 23:00 Urine Appearance Cloudy (Clear) A 01/20/25 23:00 Urine pH 5.0 (4.5-7.5) 01/20/25 23:00 Ur Specific [place] 1.023 (1.000-1.030) 01/20/25 23:00 Urine Protein Trace (Negative) H 01/20/25 23:00 Urine Glucose (UA) Negative (Negative) 01/20/25 23:00 Urine Ketones Trace (Negative) H 01/20/25 23:00 Urine Blood 2+ (Negative) H 01/20/25 23:00 Urine Nitrite Positive (Negative) A 01/20/25 23:00 Urine Bilirubin 1+ (Negative) H 01/20/25 23:00 Urine Urobilinogen Negative (Negative) 01/20/25 23:00 Ur Leukocyte Esterase Trace (Negative) H 01/20/25 23:00 Urine WBC (Auto) 0-5 /hpf (0-5) 01/20/25 23:00 Urine RBC (Auto) >20 /hpf (0-2) H 01/20/25 23:00 U Hyaline Cast (Auto) >20 /lpf (0-2) H 01/20/25 23:00 U Epithel Cells (Auto) 0-2 /hpf (0-2) 01/20/25 23:00 Urine Bacteria (Auto) 1+ (None Seen) H 01/20/25 23:00 Urine Comment 01/20/25 23:00 Fluid Neutrophils % 58 % 01/21/25 12:15 Fluid Lymphocytes % 13 % 01/21/25 12:15 Fluid Meso/Macro/[place] % 29 % 01/21/25 12:15 Fluid Comment 01/21/25 12:15 Peritoneal Color Red 01/21/25 12:15 Peritoneal Appearance Cloudy 01/21/25 12:15 Peritoneal WBC (Auto) 743 /ul (0-300) H 01/21/25 12:15 Peritoneal RBC (Auto) 44349 /uL 01/21/25 12:15 Peritoneal Tot Protein 3.9 gm/dl 01/21/25 12:15 Peritoneal Albumin 1.6 gm/dl 01/21/25 12:15 Peritoneal LDH 105 U/L 01/21/25 12:15 Peritoneal Glucose 69 mg/dl 01/21/25 12:15 Peritoneal Amylase 16 U/L 01/21/25 12:15 Peritoneal Lipase 13 U/L 01/21/25 12:15 Nasal Screen MRSA (PCR) Negative (Negative) 01/21/25 Unknown Digoxin 1.9 ng/ml (0.8-2.0) 01/21/25 05:56 Adenovirus (PCR) Not Detected (NotDetected) 01/20/25 21:24 B. pertussis DNA (PCR) Not Detected (NotDetected) 01/20/25 21:24 B.parapertussis DNA PCR Not Detected (NotDetected) 01/20/25 21:24 C. pneumoniae DNA (PCR) Not Detected (NotDetected) 01/20/25 21:24 Coronavirus OC43 (PCR) Not Detected (NotDetected) 01/20/25 21:24 Coronavirus HKU1 (PCR) Not Detected (NotDetected) 01/20/25 21:24 Coronavirus 229E (PCR) Not Detected (NotDetected) 01/20/25 21:24 SARS-CoV-2 (PCR) Not Detected (NotDetected) 01/20/25 21:24 Coronavirus NL63 (PCR) Not Detected (NotDetected) 01/20/25 21:24 Human Metapneumovir PCR Not Detected (NotDetected) 01/20/25 21:24 Influenza Type A (PCR) Not Detected (NotDetected) 01/20/25 21:24 Influenza Type B (PCR) Not Detected (NotDetected) 01/20/25 21:24 M. pneumoniae (PCR) Not Detected (NotDetected) 01/20/25 21:24 Parainfluenza 1 (PCR) Not Detected (NotDetected) 01/20/25 21:24 Parainfluenza 2 (PCR) Not Detected (NotDetected) 01/20/25 21:24 Parainfluenza 3 (PCR) Not Detected (NotDetected) 01/20/25 21:24 Parainfluenza 4 (PCR) Not Detected (NotDetected) 01/20/25 21:24 RSV (PCR) Not Detected (NotDetected) 01/20/25 21:24 Entero/Rhino (PCR) Not Detected (NotDetected) 01/20/25 21:24 Impressions Chest X-Ray 01/20/25 18:11 Clinical History: Weakness Technique: A frontal view of the chest was obtained Comparison is made to the prior examination dated 08/29/2024 Findings: There is worsened left lower lobe opacity that may be due to either atelectasis or pneumonia. There is suspected mild pulmonary edema. The heart is enlarged. There is an aortic valve replacement. No definite right pleural effusion or pneumothorax is seen. There is a large left pleural effusion, increased in size No fracture is noted. There is thoracic scoliosis and degenerative disc disease. Sternal wires are present Impression: 1. Large left pleural effusion 2. Left lower lobe opacity that may be due to either atelectasis or pneumonia 3. Cardiomegaly and mild pulmonary edema ACT 112: Positive. There are findings on this exam that require communication between the performing entity and the patient following Patient Test Result Information Act ([place] ACT 112) guidelines. Electronically signed by Jose Armando Mcdonald 01-20-2025 7:[address] 01/20/25 22:00 Clinical History: Altered mental status Technique: Axial computed tomography images were obtained of the brain without intravenous contrast. Comparison is made to the prior CT dated 08/27/2024 Findings: There is unchanged cerebral atrophy, within expected limits for the patient's age. Areas of decreased attenuation are seen within the periventricular white matter, likely representing chronic small vessel ischemic disease. There is no definite sign of acute or old infarction. No intracranial hemorrhage is evident. No definite mass lesion is seen on this noncontrast examination. There is no midline shift or other form of herniation. No hydrocephalus is seen. No fracture is identified. The orbits and the visualized paranasal sinuses appear unremarkable. The mastoid air cells appear clear. Impression: 1. Cerebral atrophy and chronic small vessel ischemic disease 2. Otherwise unremarkable noncontrast CT of the brain Electronically signed by Jose Armando Mcdonald 01-21-2025 09:38 AM Liver Ultrasound 01/21/25 07:00 Clinical history: Hyperbilirubinemia Technique: Sonography was performed of the right upper quadrant of the abdomen Findings: The liver is nodular in contour and coarsened echotexture, consistent with cirrhosis. No definite liver mass is seen There is apparent gallbladder sludge. No clear gallstones are identified. The gallbladder wall is slightly thickened at 4 mm. Overlying tenderness was detected. There is no intrahepatic or extrahepatic bile duct dilatation. The common bile duct measures 4 mm The right kidney demonstrates normal cortical thickness and echogenicity. There is no hydronephrosis. No definite renal calculus or mass is seen. There is a 1.6 cm right renal cyst The pancreas could not be visualized. There is a moderate amount of ascites Impression: 1. Possible acalculus cholecystitis with gallbladder sludge, mild gallbladder wall thickening, and overlying tenderness. No clear gallstones are seen 2. Cirrhosis 3. Moderate amount of ascites 4. Right renal cyst ACT 112: Positive. There are findings on this exam that require communication between the performing entity and the patient following Patient Test Result Information Act ([place] ACT 112) guidelines. Electronically signed by Jose Armando Mcdonald 01-21-2025 09:42 AM Medications Administered Home Medications Medication Instructions Recorded Confirmed Last Taken acetaminophen 650 mg 2 tab PO BID PRN Pain 04/12/18 01/20/25 04/21/18 06:30 tablet,extended release (Tylenol Arthritis Pain) Oxygen Home 12/04/21 05/12/24 Unknown aspirin 81 mg tablet,delayed 81 mg PO UD 11/10/23 01/20/25 11/10/23 release cyanocobalamin (vitamin B-12) 1,000 mcg IM Q4WK 11/10/23 01/20/25 Unknown 1,000 mcg/mL injection solution ferrous sulfate 325 mg (65 mg 325 mg PO DAILY 05/12/24 01/20/25 Unknown iron) tablet (Iron (ferrous sulfate)) vitamin B12 1,000 mcg-folic acid 1 tye sublingual DAILY 05/12/24 01/20/25 Unknown 400 mcg sublingual lozenge digoxin 125 mcg (0.125 mg) tablet 125 mcg PO 3XWK 05/13/24 01/20/25 Unknown albuterol sulfate 90 mcg/actuation 2 puff inhalation Q4H PRN 08/27/24 01/20/25 Unknown aerosol inhaler Shortness Of Breath Or Wheezing furosemide 40 mg tablet 60 mg PO BID 08/27/24 01/20/25 Unknown levothyroxine 100 mcg tablet 100 mcg PO DAILYBB 08/27/24 01/20/25 Unknown mesalamine 0.375 gram 1.5 g PO QAM 08/27/24 01/20/25 Unknown capsule,extended release 24 hr folic acid 400 mcg tablet 400 mcg PO DAILY #30 tabs 09/02/24 01/20/25 Unknown metoprolol succinate 25 mg 12.5 mg PO DAILY 01/20/25 01/20/25 Unknown tablet,extended release 24 hr midodrine 5 mg tablet 10 mg PO TID 01/20/25 01/20/25 Unknown tiotropium 2.5 mcg-olodaterol 2.5 2 puff inhalation DAILY 01/20/25 01/20/25 Unknown mcg/actuation mist for inhalation (Stiolto Respimat) Active Medications Generic Name Dose Route Start Last Admin Trade Name Freq PRN Reason Stop Dose Admin Aspirin 81 mg 01/21/25 09:00 01/22/25 08:36 Aspirin 81 Mg Ectab PO 02/20/25 08:59 Not Given [email or web address] [facility] Digoxin 0.125 mg 01/20/25 22:00 01/20/25 22:55 Digoxin 0.125 Mg Tab PO 02/19/25 21:59 Not Given [email or web address] [facility] Ferrous Sulfate 325 mg 01/21/25 09:00 01/22/25 08:36 Ferrous Sulfate 325 Mg Tab PO 02/20/25 08:59 325 mg DAILY S[facility] Administration Furosemide 40 mg 01/22/25 14:00 01/22/25 13:53 Furosemide 40 Mg/4 Ml Vial IV 02/21/25 13:59 40 mg TID SALLY Administration Doxycycline Hyclate 100 mg/ 100 mls @ 50 mls/hr 01/20/25 22:00 01/22/25 11:14 Dextrose IV 01/27/25 21:59 Infused Q12H [facility] Infusion Ceftriaxone Sodium 2,000 mg in 50 mls @ 100 mls/hr 01/21/25 09:00 01/22/25 11:14 Rocephin IV 01/31/25 08:59 Infused Q24H [facility] Infusion Albumin Human 25 gm in 100 mls @ 50 mls/hr 01/22/25 13:30 01/22/25 15:37 Albumin 25% IV 01/25/25 13:29 Infused Q8H [facility] Infusion Levothyroxine Sodium 100 mcg 01/21/25 06:30 01/22/25 05:54 Levothyroxine Sodium 100 Mcg Tablet PO 02/20/25 06:29 100 mcg DAILYBB [facility] Administration Metoprolol Succinate 12.5 mg 01/21/25 09:00 01/22/25 08:36 Metoprolol Succ 25mg Ext Rel Tab PO 02/20/25 08:59 12.5 mg DAILY S[facility] Administration Midodrine 10 mg 01/20/25 22:00 01/22/25 12:46 Midodrine Hcl 10 Mg Tab PO 02/19/25 21:59 10 mg TID@0800,1200,1700 S[facility] Administration Miscellaneous 1 each 01/21/25 08:00 01/22/25 12:46 Mesalamine 0.375gm Er: Order Awaiting Action N/A 02/20/25 07:59 Not Given QS [facility] PG Care Time/CCT Total # of Minutes Spent Total Time Spent with Patient: Total time spent is greater than 50% in coordination of care (as documented) at patient's floor/unit and/or counseling patient: Coding Level of Care Code 01015 SUB INP/OBS CARE 3/50MIN Diagnoses Acute on chronic heart failure with preserved ejection fraction (HFpEF) I50.33 Ascites R18.8 Chronic hypotension I95.89 Secondary pulmonary arterial hypertension I27.21 Bilateral pleural effusion J90 Elevated troponin R79.89
--- NOTE | 2025-01-22 19:47 | XRay Report ---
HISTORY: Pleural effusion. TECHNIQUE: Portable AP radiographs of the chest. Imaging is performed direct. COMPARISON: Chest radiograph dated 01/20/2025 FINDINGS: Large left pleural effusion. Small right pleural effusion. Left mid and lower lung and right lung base opacity. No pneumothorax. Cardiomegaly. Aortic valve replacement. Left-sided aortic arch containing atherosclerotic calcification. Degenerative changes of the shoulders and spine.Included upper abdomen is unremarkable. IMPRESSION: 1. Cardiomegaly with pulmonary vascular congestion suggesting CHF. 2. Large left pleural effusion and mid and lower left lung opacity are similar. 3. Similar small right pleural effusion and right basilar airspace opacity. Electronically signed by Akil Carreno 01-22-2025 7:47 PM
[2025-01-23 06:16] LABS: Alanine Aminotransferase 5.0 U/L (7-52); Albumin Globulin Ratio 1.0 (0.9-2); Alkaline Phosphatase 49.0 U/L (34-104); Anion Gap 9.0 (3-11); Bilirubin,Total 2.7 mg/dl (0.2-1.0); Blood Urea Nitrogen 68.0 mg/dl (6-23); Calcium 9.7 mg/dl (8.6-10.3); Carbon Dioxide 36.0 mmol/L (21-32); Chloride 90.0 mmol/L (98-107); Creatinine Clr Calc Pharmacy 24.7 ml/min; Globulin 3.7 gm/dl (2.5-4.0); Glucose 104.0 mg/dl (70-99(Fasting)); Potassium 4.0 mmol/L (3.5-5.1); Sodium 135.0 mmol/L (136-145); Total Protein 7.3 gm/dl (6.0-8.3)
[2025-01-23 06:35] LABS: Hematocrit (blood only) 44.1 % (37.0-47.0); Hemoglobin 14.0 g/dl (12.0-16.0); Mean Corpuscular Hemoglobin 31.8 pg (25.0-34.0); Mean Corpuscular Volume 100.2 fL (80.0-100.0); Platelet Count 74 K/uL (130-400); RDW Standard Deviation 66.0 fL (36.4-46.3); Red Blood Count 4.40 M/uL (4.20-5.40); White Blood Count 4.94 K/ul (4.8-10.8)
[2025-01-23] MEDS: POLYETHYLENE (MIRALAX) 17 GM PACK PO PRN (08:20)
[2025-01-23] MEDS: ACETAMINOPHEN 325 MG TAB PO PRN (08:26)
--- NOTE | 2025-01-23 09:24 | Cardiology Progress Note ---
Date of Service January 23, 2025 Assessment & Plan (1) Acute on chronic heart failure with preserved ejection fraction (HFpEF): (2) Ascites: (3) Chronic hypotension: (4) Secondary pulmonary arterial hypertension: (5) Bilateral pleural effusion: (6) Elevated troponin: Plan End stage ill appearing 84-year-old female readmitted with acute on chronic decompensated right heart failure with associated pleural effusion, acute metabolic encephalopathy, possible sepsis, acute kidney injury, auto- anticoagulation. Elevated high-sensitivity troponin likely secondary to demand ischemia in the setting of multiple acute stressors. Past catheterization last in February 2022 with only mild luminal irregularities. 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 with resection of the mid lower sternum and right costal cartilage with anterior chest wall reconstruction with mesh and pectoral flap, status post meningioma resection via gamma knife Acute RHF RV systolic dysfunction Pleural effusion - persistent - consider L thoracentesis Ascites - s/p paracentesis - about 3 L SBP Moderate mitral regurgitation Severe tricuspid regurgitation S/P TAVR Severe pulmonary hypertension Acute kidney injury on CKD Acute metabolic encephalopathy Abnormal troponin - likely demand ischemia, not indicative of Type I FL Abnormal LFTs Paroxysmal atrial fibrillation - in AFib with CVR COPD Dementia Recurrent falls ABX as per hospitalist correct and f/u electrolytes f/u renal function F/U with Renal f/u with Pulmonary ASA not a candidate for chronic anticoagulation due to h/o and risk for fall GDMT for HFpEF limited due to renal insufficiency and low BP adjust rate control meds keeping HR between 60 to 100 BPM and systolic BP between 100-140 mmHg adjust anti-HTN meds keeping systolic BP between 100-140 mmHg avoid hypovolemia keep patient euvolemic DVT prophylaxis keep LE elevated when sitting Daily weights strict I&Os salt restriction Admission and Anticipated Discharge Date Admission Date: January 20, 2025 Subjective Patient on exam is lying in bed, more awake today, in NAD; no c/o cp, sob, palpitations, dizziness, LOC, abdominal pain; as per RN she at risk for aspirat ion and has decreased PO intake Review of Systems Review of Systems: Unable to be obtained secondary to patient's status. Physical Exam Physical Exam: General: Alert to person. Thin. Frail Neck: + JVD. + Bilateral carotid bruits Lungs: decreased BS at bases No wheezing. Heart: Irregular. Right sided heave. Grade III/ systolic murmur. No diastolic murmur. Abdomen: + BS. Nontender. No organomegaly. Extremities: Marked stasis changes. no cyanosis. Results & Data Vital Signs (Past 12 Hours) Vital Signs Temp Pulse Pulse Resp BP BP Pulse Ox 01/23/25 07:54 01/23/25 07:21 36.3 C L 96 H 16 90/66 L 93 01/23/25 03:33 36.2 C L 97 H 18 117/90 93 01/23/25 00:48 84 01/22/25 23:28 36.3 C L 94 H 16 99/65 L 92 O2 Del Method O2 Flow Rate 01/23/25 07:54 Nasal Cannula 2 01/23/25 07:21 Nasal Cannula 2 01/23/25 03:33 Nasal Cannula 2 01/23/25 00:48 01/22/25 23:28 Nasal Cannula 2 Laboratory Results Cardiac Enzymes 01/23/25 Range/Units 05:19 AST 21 (13-39) U/L CBC 01/23/25 Range/Units 05:19 WBC 4.94 (4.8-10.8) K/ul RBC 4.40 (4.20-5.40) M/uL Hgb 14.0 (12.0-16.0) g/dl Hct 44.1 (37.0-47.0) % Plt Count 74 L (130-400) K/uL Comprehensive Metabolic Panel 01/23/25 Range/Units 05:19 Sodium 135 L (136-145) mmol/L Potassium 4.0 (3.5-5.1) mmol/L Chloride 90 L (98-107) mmol/L Carbon Dioxide 36 H (21-32) mmol/L BUN 68 H (6-23) mg/dl Creatinine 1.80 H (0.6-1.2) mg/dl Glucose 104 H (70-99(Fasting)) mg/dl Calcium 9.7 (8.6-10.3) mg/dl AST 21 (13-39) U/L ALT 5 L (7-52) U/L Alkaline Phosphatase 49 (34-104) U/L Total Protein 7.3 (6.0-8.3) gm/dl Albumin 3.6 (3.4-5.0) gm/dl Intake and Output 01/22/25 01/23/25 01/23/25 22:59 06:59 14:59 Intake Total 300 / 630 150 / 150 Output Total 75 / 325 50 / 325 Balance 225 / 305 -50 / 305 150 / 150 Intake: IV 300 / 450 150 / 150 Albumin 25% 25 gm In 100 ml @ 200 / 200 100 / 100 50 mls/hr IV Q8H SALLY Rx#: [id number] Doxycycline Hyclate 100 mg In 100 / 200 Dextrose 5% Mini-B 100 ml @ 50 mls/hr IV Q12H SALLY Rx#:[id number] cefTRIAXone SODIUM 2,000 mg In 50 / 50 50 ml @ 100 mls/hr IV Q24H SALLY Rx#:[id number] Output: Urine Amount (Catheter) 75 / 325 50 / 325 Palma/Indwelling 75 / 325 50 / 325 Other: Weight 69.9 kg Weight Measurement Method Built in [facility] Diagnostic Findings Laboratory Results WBC 4.94 K/ul (4.8-10.8) 01/23/25 05:19 RBC 4.40 M/uL (4.20-5.40) 01/23/25 05:19 Hgb 14.0 g/dl (12.0-16.0) 01/23/25 05:19 POC Hgb 16.7 g/dl (12.0-16.0) H 01/20/25 18:27 Hct 44.1 % (37.0-47.0) 01/23/25 05:19 POC Hct 49 % (37-47) H 01/20/25 18:27 MCV 100.2 fL (80.0-100.0) H 01/23/25 05:19 MCH 31.8 pg (25.0-34.0) 01/23/25 05:19 MCHC 31.7 g/dL (32.0-36.0) L 01/23/25 05:19 RDW Std Deviation 66.0 fL (36.4-46.3) H 01/23/25 05:19 RDW Coeff of Brendon 18.2 % (11.5-14.5) H 01/23/25 05:19 Plt Count 74 K/uL (130-400) L 01/23/25 05:19 MPV 10.0 fL (9.4-12.4) 01/23/25 05:19 Immature Gran % (Auto) 0.2 % 01/20/25 18: Neut % (Auto) 75.2 % 01/20/25 18:25 Lymph % (Auto) 13.5 % 01/20/25 18:25 [place] % (Auto) 11.1 % 01/20/25 18:25 Eos % (Auto) 0.0 % 01/20/25 18:25 Baso % (Auto) 0.0 % 01/20/25 18: Neut # (Auto) 3.12 K/uL (1.40-6.50) 01/20/25 18: Lymph # (Auto) 0.56 K/uL (1.20-3.40) L 01/20/25 18:25 [place] # (Auto) 0.46 K/uL (0.11-0.59) 01/20/25 18:25 Eos # (Auto) 0.00 K/uL (0.00-0.50) 01/20/25 18: Baso # (Auto) 0.00 K/uL (0.00-0.20) 01/20/25 18: Immature Gran # (Auto) 0.01 K/uL (0.01-0.20) 01/20/25 18: Absolute Nucleated RBC 0.02 K/uL (0.00-0.12) 01/22/25 05:22 Nucleated RBC % (auto) 0.4 % 01/22/25 05:22 PT 18.6 Seconds (9.0-12.0) H 01/21/25 05:56 INR 1.8 (0.9-1.1) H 01/21/25 05:56 Specimen Type Arterial 01/20/25 18:27 Sample Site R Radial 01/20/25 18:27 POC pH 7.37 (7.35-7.45) 01/20/25 18:27 POC pCO2 62 mmHg (35-46) H 01/20/25 18:27 POC pO2 333 mmHg (80-95) H 01/20/25 18:27 POC HCO3 36 melanie/L (19-24) H 01/20/25 18:27 POC Total CO2 37 mmol/L (24-31) H 01/20/25 18:27 POC Base Excess 10.0 melanie/L (-9-1.8) H 01/20/25 18:27 ABG pH (Temp Correct) 7.386 (7.35-7.45) 01/20/25 18:27 ABG pCO2 (Temp Corrct 58 mmHg (35-46) H 01/20/25 18:27 POC ABG pO2 at Pt Temp 326 01/20/25 18:27 POC ABG O2 Sat 100.0 % (90-95) H 01/20/25 18:27 [place] Test Pass 01/20/25 18:27 VBG pH 7.44 (7.36-7.41) H 01/21/25 05:56 VBG pCO2 55 mmHg (38-50) H 01/21/25 05:56 VBG pO2 59 mmHg 01/21/25 05:56 VBG HCO3 37 mmol/L 01/21/25 05:56 VBG O2 Saturation 90.5 % 01/21/25 05:56 VBG Base Excess 11.1 mEq/L 01/21/25 05:56 O2 Delivery Device Hi Boris Can 01/20/25 18:27 POC FiO2 100 % 01/20/25 18:27 POC Sodium 137 mmol/L (135-144) 01/20/25 18:27 Sodium 135 mmol/L (136-145) L 01/23/25 05:19 POC Potassium 3.9 mmol/L (3.3-5.0) 01/20/25 18:27 Potassium 4.0 mmol/L (3.5-5.1) 01/23/25 05:19 POC Chloride 92 mmol/L (101-112) L 01/20/25 18:26 Chloride 90 mmol/L (98-107) L 01/23/25 05:19 Carbon Dioxide 36 mmol/L (21-32) H 01/23/25 05:19 POC Total CO2 34 mmol/L (24-31) H 01/20/25 18:26 Anion Gap 9 (3-11) 01/23/25 05:19 POC Anion Gap 16.0 mmol/L (16-25) 01/20/25 18:26 POC BUN 75 mg/dl (7-18) H 01/20/25 18:26 BUN 68 mg/dl (6-23) H 01/23/25 05:19 Creatinine 1.80 mg/dl (0.6-1.2) H 01/23/25 05:19 POC Creatinine 1.5 mg/dl (0.6-1.3) H 01/20/25 18:26 Est Cr Clr Drug Dosing 24.7 ml/min 01/23/25 05:19 eGFR 27.27 01/23/25 05:19 BUN/Creatinine Ratio 37.8 (10-20) H 01/23/25 05:19 Glucose 104 mg/dl (70-99(Fasting)) H 01/23/25 05:19 POC Glucose (other) 81 mg/dl (70-99) 01/20/25 18:26 Lactate 3.0 mmol/L (0.4-2.0) H* 01/21/25 09:01 Calcium 9.7 mg/dl (8.6-10.3) 01/23/25 05:19 POC Ioniz Calcium Natalie 1.00 mmol/l (1.12-1.32) L 01/20/25 18:26 Phosphorus 5.0 mg/dl (2.5-4.9) H 01/22/25 05:22 Magnesium 2.4 mg/dl (1.7-2.4) 01/22/25 05:22 Total Bilirubin 2.7 mg/dl (0.2-1.0) H 01/23/25 05:19 AST 21 U/L (13-39) 01/23/25 05:19 ALT 5 U/L (7-52) L 01/23/25 05:19 Alkaline Phosphatase 49 U/L (34-104) 01/23/25 05:19 Troponin I High Sens 57.7 pg/ml (0-14) H* D 01/21/25 05:56 B-Natriuretic Peptide 1080 pg/ml (0-100) H 01/20/25 18:58 Total Protein 7.3 gm/dl (6.0-8.3) 01/23/25 05:19 Albumin 3.6 gm/dl (3.4-5.0) 01/23/25 05:19 Globulin 3.7 gm/dl (2.5-4.0) 01/23/25 05:19 Albumin/Globulin Ratio 1.0 (0.9-2) 01/23/25 05:19 Procalcitonin 0.16 ng/ml (0-0.5) 01/20/25 19:52 TSH 2.933 uIu/ml (0.300-4.500) 01/20/25 18:25 Urine Color Dark Yellow 01/20/25 23:00 Urine Appearance Cloudy (Clear) A 01/20/25 23:00 Urine pH 5.0 (4.5-7.5) 01/20/25 23:00 Ur Specific Sulphur 1.023 (1.000-1.030) 01/20/25 23:00 Urine Protein Trace (Negative) H 01/20/25 23:00 Urine Glucose (UA) Negative (Negative) 01/20/25 23:00 Urine Ketones Trace (Negative) H 01/20/25 23:00 Urine Blood 2+ (Negative) H 01/20/25 23:00 Urine Nitrite Positive (Negative) A 01/20/25 23:00 Urine Bilirubin 1+ (Negative) H 01/20/25 23:00 Urine Urobilinogen Negative (Negative) 01/20/25 23:00 Ur Leukocyte Esterase Trace (Negative) H 01/20/25 23:00 Urine WBC (Auto) 0-5 /hpf (0-5) 01/20/25 23:00 Urine RBC (Auto) >20 /hpf (0-2) H 01/20/25 23:00 U Hyaline Cast (Auto) >20 /lpf (0-2) H 01/20/25 23:00 U Epithel Cells (Auto) 0-2 /hpf (0-2) 01/20/25 23:00 Urine Bacteria (Auto) 1+ (None Seen) H 01/20/25 23:00 Urine Comment 01/20/25 23:00 Fluid Neutrophils % 58 % 01/21/25 12:15 Fluid Lymphocytes % 13 % 01/21/25 12:15 Fluid Meso/Macro/[place] % 29 % 01/21/25 12:15 Fluid Comment 01/21/25 12:15 Peritoneal Color Red 01/21/25 12:15 Peritoneal Appearance Cloudy 01/21/25 12:15 Peritoneal WBC (Auto) 743 /ul (0-300) H 01/21/25 12:15 Peritoneal RBC (Auto) 62427 /uL 01/21/25 12:15 Peritoneal Tot Protein 3.9 gm/dl 01/21/25 12:15 Peritoneal Albumin 1.6 gm/dl 01/21/25 12:15 Peritoneal LDH 105 U/L 01/21/25 12:15 Peritoneal Glucose 69 mg/dl 01/21/25 12:15 Peritoneal Amylase 16 U/L 01/21/25 12:15 Peritoneal Lipase 13 U/L 01/21/25 12:15 Nasal Screen MRSA (PCR) Negative (Negative) 01/21/25 Unknown Digoxin 1.9 ng/ml (0.8-2.0) 01/21/25 05:56 Adenovirus (PCR) Not Detected (NotDetected) 01/20/25 21:24 B. pertussis DNA (PCR) Not Detected (NotDetected) 01/20/25 21:24 B.parapertussis DNA PCR Not Detected (NotDetected) 01/20/25 21:24 C. pneumoniae DNA (PCR) Not Detected (NotDetected) 01/20/25 21:24 Coronavirus OC43 (PCR) Not Detected (NotDetected) 01/20/25 21:24 Coronavirus HKU1 (PCR) Not Detected (NotDetected) 01/20/25 21:24 Coronavirus 229E (PCR) Not Detected (NotDetected) 01/20/25 21:24 SARS-CoV-2 (PCR) Not Detected (NotDetected) 01/20/25 21:24 Coronavirus NL63 (PCR) Not Detected (NotDetected) 01/20/25 21:24 Human Metapneumovir PCR Not Detected (NotDetected) 01/20/25 21:24 Influenza Type A (PCR) Not Detected (NotDetected) 01/20/25 21:24 Influenza Type B (PCR) Not Detected (NotDetected) 01/20/25 21:24 M. pneumoniae (PCR) Not Detected (NotDetected) 01/20/25 21:24 Parainfluenza 1 (PCR) Not Detected (NotDetected) 01/20/25 21:24 Parainfluenza 2 (PCR) Not Detected (NotDetected) 01/20/25 21:24 Parainfluenza 3 (PCR) Not Detected (NotDetected) 01/20/25 21:24 Parainfluenza 4 (PCR) Not Detected (NotDetected) 01/20/25 21:24 RSV (PCR) Not Detected (NotDetected) 01/20/25 21:24 Entero/Rhino (PCR) Not Detected (NotDetected) 01/20/25 21:[address] 01/20/25 22:00 Clinical History: Altered mental status Technique: Axial computed tomography images were obtained of the brain without intravenous contrast. Comparison is made to the prior CT dated 08/27/2024 Findings: There is unchanged cerebral atrophy, within expected limits for the patient's age. Areas of decreased attenuation are seen within the periventricular white matter, likely representing chronic small vessel ischemic disease. There is no definite sign of acute or old infarction. No intracranial hemorrhage is evident. No definite mass lesion is seen on this noncontrast examination. There is no midline shift or other form of herniation. No hydrocephalus is seen. No fracture is identified. The orbits and the visualized paranasal sinuses appear unremarkable. The mastoid air cells appear clear. Impression: 1. Cerebral atrophy and chronic small vessel ischemic disease 2. Otherwise unremarkable noncontrast CT of the brain Electronically signed by Jose Armando Mcdonald 01-21-2025 09:38 AM Liver Ultrasound 01/21/25 07:00 Clinical history: Hyperbilirubinemia Technique: Sonography was performed of the right upper quadrant of the abdomen Findings: The liver is nodular in contour and coarsened echotexture, consistent with cirrhosis. No definite liver mass is seen There is apparent gallbladder sludge. No clear gallstones are identified. The gallbladder wall is slightly thickened at 4 mm. Overlying tenderness was detected. There is no intrahepatic or extrahepatic bile duct dilatation. The common bile duct measures 4 mm The right kidney demonstrates normal cortical thickness and echogenicity. There is no hydronephrosis. No definite renal calculus or mass is seen. There is a 1.6 cm right renal cyst The pancreas could not be visualized. There is a moderate amount of ascites Impression: 1. Possible acalculus cholecystitis with gallbladder sludge, mild gallbladder wall thickening, and overlying tenderness. No clear gallstones are seen 2. Cirrhosis 3. Moderate amount of ascites 4. Right renal cyst ACT 112: Positive. There are findings on this exam that require communication between the performing entity and the patient following Patient Test Result Information Act ([place] ACT 112) guidelines. Electronically signed by Jose Armando Mcdonald 01-21-2025 09:42 AM Chest X-Ray 01/22/25 16:50 HISTORY: Pleural effusion. TECHNIQUE: Portable AP radiographs of the chest. Imaging is performed direct. COMPARISON: Chest radiograph dated 01/20/2025 FINDINGS: Large left pleural effusion. Small right pleural effusion. Left mid and lower lung and right lung base opacity. No pneumothorax. Cardiomegaly. Aortic valve replacement. Left-sided aortic arch containing atherosclerotic calcification. Degenerative changes of the shoulders and spine.Included upper abdomen is unremarkable. IMPRESSION: 1. Cardiomegaly with pulmonary vascular congestion suggesting CHF. 2. Large left pleural effusion and mid and lower left lung opacity are similar. 3. Similar small right pleural effusion and right basilar airspace opacity. Electronically signed by Akil Carreno 01-22-2025 7:47 PM Medications Administered Home Medications Medication Instructions Recorded Confirmed Last Taken acetaminophen 650 mg 2 tab PO BID PRN Pain 04/12/18 01/20/25 04/21/18 06:30 tablet,extended release (Tylenol Arthritis Pain) Oxygen Home 12/04/21 05/12/24 Unknown aspirin 81 mg tablet,delayed 81 mg PO UD 11/10/23 01/20/25 11/10/23 release cyanocobalamin (vitamin B-12) 1,000 mcg IM Q4WK 11/10/23 01/20/25 Unknown 1,000 mcg/mL injection solution ferrous sulfate 325 mg (65 mg 325 mg PO DAILY 05/12/24 01/20/25 Unknown iron) tablet (Iron (ferrous sulfate)) vitamin B12 1,000 mcg-folic acid 1 tye sublingual DAILY 05/12/24 01/20/25 Unknown 400 mcg sublingual lozenge digoxin 125 mcg (0.125 mg) tablet 125 mcg PO 3XWK 05/13/24 01/20/25 Unknown albuterol sulfate 90 mcg/actuation 2 puff inhalation Q4H PRN 08/27/24 01/20/25 U nknown aerosol inhaler Shortness Of Breath Or Wheezing furosemide 40 mg tablet 60 mg PO BID 08/27/24 01/20/25 Unknown levothyroxine 100 mcg tablet 100 mcg PO DAILYBB 08/27/24 01/20/25 Unknown mesalamine 0.375 gram 1.5 g PO QAM 08/27/24 01/20/25 Unknown capsule,extended release 24 hr folic acid 400 mcg tablet 400 mcg PO DAILY #30 tabs 09/02/24 01/20/25 Unknown metoprolol succinate 25 mg 12.5 mg PO DAILY 01/20/25 01/20/25 Unknown tablet,extended release 24 hr midodrine 5 mg tablet 10 mg PO TID 01/20/25 01/20/25 Unknown tiotropium 2.5 mcg-olodaterol 2.5 2 puff inhalation DAILY 01/20/25 01/20/25 Unknown mcg/actuation mist for inhalation (Stiolto Respimat) Active Medications Generic Name Dose Route Start Last Admin Trade Name Freq PRN Reason Stop Dose Admin Acetaminophen 650 mg 01/20/25 22:00 01/23/25 08:26 Acetaminophen 325 Mg Tab PO 02/19/25 21:59 650 mg Q4H PRN Administration Pain or Fever Aspirin 81 mg 01/21/25 09:00 01/23/25 08:15 Aspirin 81 Mg Ectab PO 02/20/25 08:59 81 mg [email or web address] SALLY Administration Digoxin 0.125 mg 01/20/25 22:00 01/20/25 22:55 Digoxin 0.125 Mg Tab PO 02/19/25 21:59 Not Given [email or web address] SALLY Ferrous Sulfate 325 mg 01/21/25 09:00 01/23/25 08:15 Ferrous Sulfate 325 Mg Tab PO 02/20/25 08:59 325 mg DAILY SALLY Administration Doxycycline Hyclate 100 mg/ 100 mls @ 50 mls/hr 01/20/25 22:00 01/22/25 21:54 Dextrose IV 01/27/25 21:59 Infused Q12H SALLY Infusion Ceftriaxone Sodium 2,000 mg in 50 mls @ 100 mls/hr 01/21/25 09:00 01/23/25 08:52 Rocephin IV 01/31/25 08:59 Infused Q24H SALLY Infusion Levothyroxine Sodium 100 mcg 01/21/25 06:30 01/23/25 05:26 Levothyroxine Sodium 100 Mcg Tablet PO 02/20/25 06:29 100 mcg DAILYBB SALLY Administration Metoprolol Succinate 12.5 mg 01/21/25 09:00 01/23/25 08:16 Metoprolol Succ 25mg Ext Rel Tab PO 02/20/25 08:59 12.5 mg DAILY SALLY Administration Midodrine 10 mg 01/20/25 22:00 01/23/25 08:28 Midodrine Hcl 10 Mg Tab PO 02/19/25 21:59 10 mg TID@0800,1200,1700 SALLY Administration Miscellaneous 1 each 01/21/25 08:00 01/23/25 07:53 Mesalamine 0.375gm Er: Order Awaiting Action N/A 02/20/25 07:59 Not Given QS SALLY Polyethylene Glycol 17 gm 01/20/25 22:00 01/23/25 08:20 Polyethylene (Miralax) 17 Gm Pack PO 02/19/25 21:59 17 gm DAILY PRN Administration Constipation PG Care Time/CCT Total # of Minutes Spent Total Time Spent with Patient: Total time spent is greater than 50% in coordination of care (as documented) at patient's floor/unit and/or counseling patient: Coding Level of Care Code 18851 SUB INP/OBS CARE 3/50MIN Diagnoses Acute on chronic heart failure with preserved ejection fraction (HFpEF) I50.33 Ascites R18.8 Chronic hypotension I95.89 Secondary pulmonary arterial hypertension I27.21 Bilateral pleural effusion J90 Elevated troponin R79.89
[2025-01-23] MEDS: FUROSEMIDE 40 MG/4 ML VIAL IV SCH (10:18)
--- NOTE | 2025-01-23 11:52 | Hospitalist Progress Note ---
Date of Service January 23, 2025 Assessment & Plan (1) Acute on chronic heart failure with preserved ejection fraction (HFpEF): Plan: 84-year-old female with history of diastolic heart failure, valvular heart disease (moderate mitral regurgitation, severe tricuspid regurgitation), chronic hypotension, pulmonary hypertension, ulcerative colitis, paroxysmal atrial fibrillation, COPD, chronic thrombocytopenia, hypothyroidism, chondrosarcoma, TAVR, B12 deficiency, meningioma, Crohn's disease, hemangioma of liver, chronic oxygen dependency on 2 L at bedtime, moderate dementia as per record, alcohol use disorder, past tobacco use disorder, recurrent falls and other medical problems presents with history of altered mental status, failure to thrive. Acute on chronic respiratory failure with hypoxia and hypercarbia Acute on chronic diastolic heart failure Valvular heart disease: Moderate mitral regurgitation, severe tricuspid regurgitation S/P TAVR, Pulmonary hypertension Chronic oxygen dependency: Currently using 2 L at home Labs on admission notable for platelet of 90, INR 1.8,ABG pH of 7.37/pCO2 62, Cr 1.4, BUN 62, lactate 3.1, BNP 1080, Trop 40>>57.7 --CXR: Large left pleural effusion, Left lower lobe opacity that may be due to either atelectasis or pneumonia, Cardiomegaly and mild pulmonary edema --BioFire negative Very poor urine output Currently on IV lasix Monitor Daily weight, I/Os, electrolytes, renal function Continue home metoprolol, digoxin Cardiology on board Sepsis Presented with lactic acidosis with KRIS, hypothermia Lactic acidosis and KRIS could also be due to heart failure Possible sources: Community-acquired pneumonia, leg cellulitis, SBP Required Neri hugger initially for hypothermia Had Paracentesis on 01/21/25 with 3.1L fluid removed. Got albumin afterwards Peritoneal fluid analysis suggests SBP even after correction for RBC Continue IV ceftriaxone and doxycycline Acute kidney injury Likely ATN Urine output improved to 325 in the past 24h Discussed with Nephro who recommends reducing lasix to 40mg BID and stopping IV albumin Avoid nephrotoxic agents as able Liver cirrhosis with ascites Hyperbilirubinemia H/O alcohol use disorder H/O hemangioma of liver No recent alcohol use per patient's family Daughter reports cirrhosis is a new diagnosis for her but has been suspected for sometime Paracentesis suggests SBP as above. Continue antibiotics She follows with GI outpatient for IBD and hyperbilirubinemia Chronic troponin elevation Less likely ACS Likely demand ischemia Troponin level on admission better when compared to trop in August 2024 Acute metabolic encephalopathy Multiple etiologies as above CT head did not show any acute abnormalities Neurochecks Aspiration precautions H/O chronic thrombocytopenia No acute bleeding issues Monitor Chronic hypotension Continue midodrine Paroxysmal atrial fibrillation Continue metoprolol, digoxin Not on chronic anticoagulation Rate controlled COPD Prior tobacco use disorder Continue nebs for now Hypothyroidism H/O multinodular goiter Continue levothyroxine H/O sternal chondrosarcoma S/P stem ostomy Meningioma S/P gamma knife surgery Crohn's disease Was on mesalamine at home Moderate dementia Recurrent falls As per record Will get PT/OT eval once stable DVT Px:SCDs Code Status DNI/DNR: I discussed with family at bedside, reviewed findings and poor prognosis Family wants to continue current therapies till tomorrow, no escalation of care. They are considering home hospice. Will have CM follow up with family in AM I spent a total of 50 minutes coordinating, documenting and providing care for this patient excluding time spent in performance of separately billed services Admission and Anticipated Discharge Date Admission Date: January 20, 2025 Subjective Patient seen and examined Daughter, son, daughter in law, son in law and granddaughter at bedside Patient reports feeling very weak and wants to go home Reports cough No other complaints Physical Exam Constitutional: + ill appearing Eyes: Anisocoria ENMT: external ear and nose normal, oropharynx normal Respiratory: On nasal cannula, diminished breath sounds Cardiovascular: Rate/Rhythm: + irregularly irregular Gastrointestinal (Abdomen): Soft, mildly distended, nontender, normal bowel sounds Musculoskeletal: +LE edema Neurologic: Alert and oriented to person and place only Genitourinary: [place] in situ with reddish urine Results & Data Results & Data Vital Signs (Past 12 Hours) Vital Signs Temp Pulse Pulse Resp BP BP Pulse Ox 01/23/25 11:45 89 01/23/25 07:54 01/23/25 07:21 36.3 C L 96 H 16 90/66 L 93 01/23/25 03:33 36.2 C L 97 H 18 117/90 93 01/23/25 00:48 84 O2 Del Method O2 Flow Rate 01/23/25 11:45 01/23/25 07:54 Nasal Cannula 2 01/23/25 07:21 Nasal Cannula 2 01/23/25 03:33 Nasal Cannula 2 01/23/25 00:48 Laboratory Results Abnormal lab results 01/23/25 Range/Units 05:19 MCV 100.2 H (80.0-100.0) fL MCHC 31.7 L (32.0-36.0) g/dL RDW Std Deviation 66.0 H (36.4-46.3) fL RDW Coeff of Brendon 18.2 H (11.5-14.5) % Plt Count 74 L (130-400) K/uL Sodium 135 L (136-145) mmol/L Chloride 90 L (98-107) mmol/L Carbon Dioxide 36 H (21-32) mmol/L BUN 68 H (6-23) mg/dl Creatinine 1.80 H (0.6-1.2) mg/dl BUN/Creatinine Ratio 37.8 H (10-20) Glucose 104 H (70-99(Fasting)) mg/dl Total Bilirubin 2.7 H (0.2-1.0) mg/dl ALT 5 L (7-52) U/L
--- NOTE | 2025-01-23 13:40 | Nephrology Progress Note ---
Date of Service January 23, 2025 Assessment & Plan (1) Acute kidney injury: Plan: 84-year-old female with history of diastolic heart failure, valvular heart disease (moderate mitral regurgitation, severe tricuspid regurgitation), chronic hypotension, pulmonary hypertension, ulcerative colitis, paroxysmal atrial fibrillation, COPD, chronic thrombocytopenia, hypothyroidism, chondrosarcoma, TAVR, B12 deficiency, meningioma, Crohn's disease, hemangioma of liver, chronic oxygen dependency on 2 L at bedtime, moderate dementia as per record, alcohol use disorder, past tobacco use disorder, recurrent falls and other medical problems presents with history of altered mental status, failure to thrive. w/Acute on chronic respiratory failure with hypoxia and hypercarbia 2/ Acute on chronic diastolic heart failure. Acute kidney injury-- 2/ volume overload ( Ascitis / pleural effusion)due to Acute on chronic diastolic heart failure Likely ATN, previous normal renal fucntions UOP in Oligoanuric range, BP continues to be soft. Recommend decreasing lasix to 40mg BID, no albumin, continue on midodrine at current dose -Continue to manage this conservatively, Family has opted NOT for dialysis if neeed, All efforts to make her comfortable Avoid nephrotoxic agents as able (2) Acute on chronic heart failure with preserved ejection fraction (HFpEF): Plan: Lasix as above - Rest as per Cardiology recs (3) Ascites: Plan: Had paracentesis, Paracentesis suggests SBP as above. Continue antibiotics She follows with GI outpatient for IBD and hyperbilirubinemia Lasix as above (4) Bilateral pleural effusion: Plan: lasix as above Pulmonary on board-- f/w w/ their recs. Admission and Anticipated Discharge Date Admission Date: January 20, 2025 Subjective Patient seen and examined Patient reports feeling very weak and wants to go home Reports cough Review of Systems 2 Review of Systems: All systems reviewed & are unremarkable except as noted in HPI & below Physical Exam 2 Physical Exam: Alert and oriented to person. + ill appearing B/L LE xin Results & Data Vital Signs (Past 12 Hours) Vital Signs Temp Pulse Pulse Resp BP BP Pulse Ox 01/23/25 11:45 89 01/23/25 07:54 01/23/25 07:21 36.3 C L 96 H 16 90/66 L 93 01/23/25 03:33 36.2 C L 97 H 18 117/90 93 O2 Del Method O2 Flow Rate 01/23/25 11:45 01/23/25 07:54 Nasal Cannula 2 01/23/25 07:21 Nasal Cannula 2 01/23/25 03:33 Nasal Cannula 2 Laboratory Results 01/23/25 05:19 01/23/25 05:19
[2025-01-24 06:26] LABS: Hematocrit (blood only) 42.1 % (37.0-47.0); Hemoglobin 14.2 g/dl (12.0-16.0); Mean Corpuscular Hemoglobin 32.9 pg (25.0-34.0); Mean Corpuscular Volume 97.5 fL (80.0-100.0); Platelet Count 88 K/uL (130-400); RDW Standard Deviation 62.7 fL (36.4-46.3); Red Blood Count 4.32 M/uL (4.20-5.40); White Blood Count 4.64 K/ul (4.8-10.8)
[2025-01-24 07:18] VITALS: RESP 16; TEMP 97.5; O2SAT 95
[2025-01-24 08:51] LABS: Alanine Aminotransferase 5.0 U/L (7-52); Albumin Globulin Ratio 1.1 (0.9-2); Alkaline Phosphatase 45.0 U/L (34-104); Anion Gap 6.0 (3-11); Bilirubin,Total 2.8 mg/dl (0.2-1.0); Blood Urea Nitrogen 65.0 mg/dl (6-23); Calcium 9.6 mg/dl (8.6-10.3); Carbon Dioxide 37.0 mmol/L (21-32); Chloride 93.0 mmol/L (98-107); Creatinine Clr Calc Pharmacy 31.5 ml/min; Globulin 3.3 gm/dl (2.5-4.0); Glucose 81.0 mg/dl (70-99(Fasting)); Potassium 4.0 mmol/L (3.5-5.1); Sodium 136.0 mmol/L (136-145); Total Protein 6.8 gm/dl (6.0-8.3)
[2025-01-24 09:35] VITALS: BP 104/73
--- NOTE | 2025-01-24 10:06 | Nephrology Progress Note ---
Date of Service January 24, 2025 Assessment & Plan (1) Acute kidney injury: Plan: 84-year-old female with history of diastolic heart failure, valvular heart disease (moderate mitral regurgitation, severe tricuspid regurgitation), chronic hypotension, pulmonary hypertension, ulcerative colitis, paroxysmal atrial fibrillation, COPD, chronic thrombocytopenia, hypothyroidism, chondrosarcoma, TAVR, B12 deficiency, meningioma, Crohn's disease, hemangioma of liver, chronic oxygen dependency on 2 L at bedtime, moderate dementia as per record, alcohol use disorder, past tobacco use disorder, recurrent falls and other medical problems presents with history of altered mental status, failure to thrive. w/Acute on chronic respiratory failure with hypoxia and hypercarbia 2/ Acute on chronic diastolic heart failure. Acute kidney injury-- 2/ volume overload ( Ascitis / pleural effusion) due to Acute on chronic diastolic heart failure Likely ATN, previous normal renal fucntions in spring 2024 (creat 0.8) UOP in Oligoanuric range previously but a bit better past 24 hrs -continue IV lasix 40mg BID, no albumin, continue on midodrine at current dose -Continue to manage this conservatively, Family has opted NOT for dialysis if need, All efforts to make her comfortable Avoid nephrotoxic agents as able (2) Acute on chronic heart failure with preserved ejection fraction (HFpEF): Plan: Lasix as above - Rest as per Cardiology recs (3) Ascites: Plan: Had paracentesis, Paracentesis suggests SBP as above. Continue antibiotics She follows with GI outpatient for IBD and hyperbilirubinemia Lasix as above (4) Bilateral pleural effusion: Plan: lasix as above Pulmonary on board-- f/w w/ their recs. Admission and Anticipated Discharge Date Admission Date: January 20, 2025 Results & Data Vital Signs (Past 12 Hours) Vital Signs Temp Pulse Pulse Resp BP BP Pulse Ox 01/24/25 09:34 97 H 16 104/73 01/24/25 07:40 96 H 01/24/25 07:40 01/24/25 07:17 36.4 C L 97 H 16 85/61 L 95 01/24/25 03:21 36.3 C L 96 H 20 100/63 94 01/23/25 23:14 36.3 C L 94 H 18 108/70 96 01/23/25 23:03 77 O2 Del Method O2 Flow Rate 01/24/25 09:34 01/24/25 07:40 01/24/25 07:40 Nasal Cannula 2 01/24/25 07:17 Nasal Cannula 2 01/24/25 03:21 Nasal Cannula 2 01/23/25 23:14 Nasal Cannula 2 01/23/25 23:03 Laboratory Results 01/24/25 06:07 01/24/25 08:03
--- NOTE | 2025-01-24 12:11 | Hospitalist Progress Note ---
Date of Service January 24, 2025 Assessment & Plan (1) Acute on chronic heart failure with preserved ejection fraction (HFpEF): Plan: 84-year-old female with history of diastolic heart failure, valvular heart disease (moderate mitral regurgitation, severe tricuspid regurgitation), chronic hypotension, pulmonary hypertension, ulcerative colitis, paroxysmal atrial fibrillation, COPD, chronic thrombocytopenia, hypothyroidism, chondrosarcoma, TAVR, B12 deficiency, meningioma, Crohn's disease, hemangioma of liver, chronic oxygen dependency on 2 L at bedtime, moderate dementia as per record, alcohol use disorder, past tobacco use disorder, recurrent falls and other medical problems presents with history of altered mental status, failure to thrive. Acute on chronic respiratory failure with hypoxia and hypercarbia Acute on chronic diastolic heart failure Valvular heart disease: Moderate mitral regurgitation, severe tricuspid regurgitation S/P TAVR, Pulmonary hypertension Chronic oxygen dependency: Currently using 2 L at home Labs on admission notable for platelet of 90, INR 1.8,ABG pH of 7.37/pCO2 62, Cr 1.4, BUN 62, lactate 3.1, BNP 1080, Trop 40>>57.7 --CXR: Large left pleural effusion, Left lower lobe opacity that may be due to either atelectasis or pneumonia, Cardiomegaly and mild pulmonary edema --BioFire negative Have been on IV diuretic Sepsis Presented with lactic acidosis with KRIS, hypothermia Lactic acidosis and KRIS could also be due to heart failure Possible sources: Community-acquired pneumonia, leg cellulitis, SBP Required Neri hugger initially for hypothermia Had Paracentesis on 01/21/25 with 3.1L fluid removed. Got albumin afterwards Peritoneal fluid analysis suggests SBP even after correction for RBC Currently on IV ceftriaxone and doxycycline Acute kidney injury Likely ATN Liver cirrhosis with ascites Hyperbilirubinemia H/O alcohol use disorder H/O hemangioma of liver No recent alcohol use per patient's family Daughter reported cirrhosis is a new diagnosis for her but has been suspected for sometime Paracentesis suggests SBP as above. Continue antibiotics Chronic troponin elevation Less likely ACS Likely demand ischemia Troponin level on admission better when compared to trop in August 2024 Acute metabolic encephalopathy Multiple etiologies as above CT head did not show any acute abnormalities Neurochecks Aspiration precautions H/O chronic thrombocytopenia No acute bleeding issues Monitor Chronic hypotension Currently on midodrine Paroxysmal atrial fibrillation Continue metoprolol, digoxin Not on chronic anticoagulation Rate controlled COPD Prior tobacco use disorder Hypothyroidism H/O multinodular goiter Currently levothyroxine H/O sternal chondrosarcoma S/P stem ostomy Meningioma S/P gamma knife surgery Crohn's disease Was on mesalamine at home Had more Goals of care discussion with daughter Yola today She reported the family wants to transition to [employer] and plan for home hospice She wants to only continue IV antibiotics only while inpatient until discharge. She wants to continue her home lasix, midodrine and levothyroxine on discharge but to stop all other meds Comfort measure only status Meds changed per wishes CM notified and making arrangements for home hospice I spent a total of 60 minutes coordinating, documenting and providing care for this patient excluding time spent in performance of separately billed services Admission and Anticipated Discharge Date Admission Date: January 20, 2025 Subjective Patient seen and examined Patient is drowsy, oriented to person only and confused Physical Exam Constitutional: + ill appearing Eyes: Anisocoria ENMT: external ear and nose normal, oropharynx normal Respiratory: On nasal cannula, diminished breath sounds Cardiovascular: Rate/Rhythm: + irregularly irregular Gastrointestinal (Abdomen): Soft, nontender, normal bowel sounds Musculoskeletal: +pedal edema Neurologic: Drowsy,oriented to person only but easily falls back to sleep Genitourinary: [place] in situ Results & Data Results & Data Vital Signs (Past 12 Hours) Vital Signs Temp Pulse Pulse Resp BP BP Pulse Ox 01/24/25 09:34 97 H 16 104/73 01/24/25 07:40 96 H 01/24/25 07:40 01/24/25 07:17 36.4 C L 97 H 16 85/61 L 95 01/24/25 03:21 36.3 C L 96 H 20 100/63 94 O2 Del Method O2 Flow Rate 01/24/25 09:34 01/24/25 07:40 01/24/25 07:40 Nasal Cannula 2 01/24/25 07:17 Nasal Cannula 2 01/24/25 03:21 Nasal Cannula 2 Laboratory Results Abnormal lab results 01/24/25 01/24/25 Range/Units 06:07 08:03 WBC 4.64 L (4.8-10.8) K/ul RDW Std Deviation 62.7 H (36.4-46.3) fL RDW Coeff of Brendon 17.8 H (11.5-14.5) % Plt Count 88 L (130-400) K/uL Chloride 93 L (98-107) mmol/L Carbon Dioxide 37 H (21-32) mmol/L BUN 65 H (6-23) mg/dl Creatinine 1.41 H D (0.6-1.2) mg/dl BUN/Creatinine Ratio 46.1 H (10-20) Total Bilirubin 2.8 H (0.2-1.0) mg/dl ALT 5 L (7-52) U/L
--- NOTE | 2025-01-24 14:11 | Ultrasound Report ---
ULTRASOUND-GUIDED PARACENTESIS CLINICAL HISTORY: Ascites PROCEDURE: Procedure and risks were explained. Informed consent was obtained via telephone. A final t imeout was completed. A pocket of ascites was identified in the right lower quadrant. The abdomen was prepped and draped in sterile fashion. 1% lidocaine was utilized for skin anesthesia. Utilizing ultrasound guidance, a 5 Thai safety centesis catheter was advanced into the pocket of as cites. Ultrasound image was obtained. A total of 2.2 L of ascites fluid was removed, with 1 L sent to lab. The catheter was removed and Band-Aid applied. The patient tolerated the procedure well. Vital signs will be monitored postprocedure. IMPRESSION: Ultrasound-guided paracentesis as above. Performed, dictated, and signed by Adam Greenfield PA-C; to be co-signed by Dr. Erasto Bhakta. Electronically signed by: Erasto Bhakta M.D. 01/24/2025 2:16 PM
[2025-01-25] MEDS: DOXYCYCLINE HYCLATE 100 MG CAP PO SCH (07:58)
--- NOTE | 2025-01-25 13:37 | Hospitalist Progress Note ---
Date of Service January 25, 2025 Assessment & Plan (1) Acute on chronic heart failure with preserved ejection fraction (HFpEF): Plan: 84-year-old female with history of diastolic heart failure, valvular heart disease (moderate mitral regurgitation, severe tricuspid regurgitation), chronic hypotension, pulmonary hypertension, ulcerative colitis, paroxysmal atrial fibrillation, COPD, chronic thrombocytopenia, hypothyroidism, chondrosarcoma, TAVR, B12 deficiency, meningioma, Crohn's disease, hemangioma of liver, chronic oxygen dependency on 2 L at bedtime, moderate dementia as per record, alcohol use disorder, past tobacco use disorder, recurrent falls and other medical problems presents with history of altered mental status, failure to thrive. #Acute on chronic respiratory failure with hypoxia and hypercarbia #Acute on chronic diastolic heart failure #Valvular heart disease: Moderate mitral regurgitation, severe tricuspid regurgitation S/P TAVR, #Pulmonary hypertension #Chronic oxygen dependency: Currently using 2 L at home #Sepsis Presented with lactic acidosis with RKIS, hypothermia Lactic acidosis and KRIS could also be due to heart failure Possible sources: Community-acquired pneumonia, leg cellulitis, SBP Required Neri hugger initially for hypothermia Had Paracentesis on 01/21/25 with 3.1L fluid removed. 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 Continue antibiotics Chronic troponin elevation Less likely ACS Likely demand ischemia Troponin level on admission better when compared to trop in August 2024 Acute metabolic encephalopathy Multiple etiologies as above CT head did not show any acute abnormalities Aspiration precautions H/O chronic thrombocytopenia No acute bleeding issues Monitor Chronic hypotension Currently on midodrine Paroxysmal atrial fibrillation Continue metoprolol, digoxin Not on chronic anticoagulation Rate controlled COPD Prior tobacco use disorder Hypothyroidism H/O multinodular goiter Currently levothyroxine H/O sternal chondrosarcoma S/P stem ostomy Meningioma S/P gamma knife surgery Crohn's disease Was on mesalamine at home Admission and Anticipated Discharge Date Admission Date: January 20, 2025 Subjective Patient is drowsy. not answering questions appropriately Physical Exam Physical Exam: Vitals and labs reviewed General: Elderly and chronically ill appearing in NAD HEENT: EOMI, PERRLA Neck: Supple Cardiac: irregular rhythm. regular rate no rubs gallops or murmurs Lungs: decreased bs bilaterally Abd: S ND BS positive : camejo MSK: Full ROM. No obvious deformities Ext: b/l LE Edema Skin: Warm, Dry Neuro: drowsy. Psych: calm Results & Data Results & Data Vital Signs (Past 12 Hours) Vital Signs O2 Del Method O2 Flow Rate 01/25/25 07:40 Nasal Cannula 2
[2025-01-26] MEDS: MoRPHine SULFATE 2 MG/ML CARP IV PRN (05:05)
[2025-01-26 10:03] VITALS: PULSE 86
--- NOTE | 2025-01-26 14:11 | Hospitalist Progress Note ---
Date of Service January 26, 2025 Assessment & Plan (1) Acute on chronic heart failure with preserved ejection fraction (HFpEF): Plan: 84-year-old female with history of diastolic heart failure, valvular heart disease (moderate mitral regurgitation, severe tricuspid regurgitation), chronic hypotension, pulmonary hypertension, ulcerative colitis, paroxysmal atrial fibrillation, COPD, chronic thrombocytopenia, hypothyroidism, chondrosarcoma, TAVR, B12 deficiency, meningioma, Crohn's disease, hemangioma of liver, chronic oxygen dependency on 2 L at bedtime, moderate dementia as per record, alcohol use disorder, past tobacco use disorder, recurrent falls and other medical problems presents with history of altered mental status, failure to thrive. #Acute on chronic respiratory failure with hypoxia and hypercarbia #Acute on chronic diastolic heart failure #Valvular heart disease: Moderate mitral regurgitation, severe tricuspid regurgitation S/P TAVR, #Pulmonary hypertension #Chronic oxygen dependency: Currently using 2 L at home #Sepsis Presented with lactic acidosis with KRIS, hypothermia Lactic acidosis and KRIS could also be due to heart failure Possible sources: Community-acquired pneumonia, leg cellulitis, SBP Required Neri hugger initially for hypothermia Had Paracentesis on 01/21/25 with 3.1L fluid removed. 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 Continue antibiotics Chronic troponin elevation Less likely ACS Likely demand ischemia Troponin level on admission better when compared to trop in August 2024 Acute metabolic encephalopathy Multiple etiologies as above CT head did not show any acute abnormalities Aspiration precautions H/O chronic thrombocytopenia No acute bleeding issues Monitor Chronic hypotension Currently on midodrine Paroxysmal atrial fibrillation Continue metoprolol, digoxin Not on chronic anticoagulation Rate controlled COPD Prior tobacco use disorder Hypothyroidism H/O multinodular goiter Currently levothyroxine H/O sternal chondrosarcoma S/P stem ostomy Meningioma S/P gamma knife surgery Crohn's disease Was on mesalamine at home Admission and Anticipated Discharge Date Admission Date: January 20, 2025 Subjective non responsive Results & Data Results & Data Vital Signs (Past 12 Hours) Vital Signs Temp Pulse Pulse Resp BP Pulse Ox O2 Del Method 01/26/25 11:02 Nasal Cannula 01/26/25 10:01 36.4 C L 86 97 H 16 104/73 95
[2025-01-26] MEDS ORDERED: GLYCOPYRROLATE 0.2 MG/ML VIAL IV PRN (15:46)
[2025-01-26] MEDS ORDERED: ATROPINE SULFATE 1% OP SOLN 5 ML BTL SL PRN (15:46)
[2025-01-26] MEDS ORDERED: HALOPERIDOL ORAL SOLN 2 MG/ML PO PRN (15:46)
--- NOTE | 2025-01-26 22:01 | Death Pronouncement Note ---
Date of Service January 26, 2025 Pronouncement Note Admission Date January 20, 2025 Date and Time of Date of : 01/26/25 Time of : 22:07 Additional Data Confirmation of : no pulse, no respirations, no heart sounds and pupils fixed and dilated Family: at bedside Attending physician: Yahir Siddiqi DO Supervising Physician Co-Signing Physician Notes Discharge summary and certificate to be completed by Dr. Siddiqi.
--- NOTE | 2025-01-27 07:12 | Discharge Summary ---
Discharge Summary Date of Service January 27, 2025 Principal Dx & Hospital Course #1 = Principal Diagnosis (1) Acute hypoxemic respiratory failure: (2) Acute on chronic heart failure with preserved ejection fraction (HFpEF): Plan Discharge/ summary 84-year-old female with history of diastolic heart failure, valvular heart disease (moderate mitral regurgitation, severe tricuspid regurgitation), chronic hypotension, pulmonary hypertension, ulcerative colitis, paroxysmal atrial fibrillation, COPD, chronic thrombocytopenia, hypothyroidism, chondrosarcoma, TAVR, B12 deficiency, meningioma, Crohn's disease, hemangioma of liver, chronic oxygen dependency on 2 L at bedtime, moderate dementia as per record, alcohol use disorder, past tobacco use disorder, recurrent falls and other medical problems presents with history of altered mental status, failure to thrive. #Acute on chronic respiratory failure with hypoxia and hypercarbia #Acute on chronic diastolic heart failure #Valvular heart disease: Moderate mitral regurgitation, severe tricuspid regurgitation S/P TAVR, #Pulmonary hypertension #Chronic oxygen dependency: Currently using 2 L at home #Sepsis Presented with lactic acidosis with KRIS, hypothermia Lactic acidosis and KRIS could also be due to heart failure Possible sources: Community-acquired pneumonia, leg cellulitis, SBP Required Neri hugger initially for hypothermia Had Paracentesis on 01/21/25 with 3.1L fluid removed. Got albumin afterwards Peritoneal fluid analysis suggests SBP even after correction for RBC Plan Currently on IV ceftriaxone and doxycycline, will continue while hospitalized Plan was to DC to home hospice today but patient unlikely to survive transport Family has elected to keep patient here Continue comfort measures here 01/26- . See note. Patient not seen by author. TOB 22:07. Cause of acute on chronic resp failure with hypoxia, hypercarbia. #[employer] status -For home hospice likely tomorrow -Ensure patient is comfortable -Prn medications added for comfort # Pressure-induced deep tissue damage of sacrococcygeal area, POA -Continue wound care Acute kidney injury Likely ATN Liver cirrhosis with ascites Hyperbilirubinemia H/O alcohol use disorder H/O hemangioma of liver No recent alcohol use per patient's family Daughter reported cirrhosis is a new diagnosis for her but has been suspected for sometime Paracentesis suggests SBP as above. Continue antibiotics Chronic troponin elevation Less likely ACS Likely demand ischemia Troponin level on admission better when compared to trop in August 2024 Acute metabolic encephalopathy Multiple etiologies as above CT head did not show any acute abnormalities Aspiration precautions H/O chronic thrombocytopenia No acute bleeding issues Monitor Chronic hypotension Currently on midodrine Paroxysmal atrial fibrillation Continue metoprolol, digoxin Not on chronic anticoagulation Rate controlled COPD Prior tobacco use disorder Hypothyroidism H/O multinodular goiter Currently levothyroxine H/O sternal chondrosarcoma S/P stem ostomy Meningioma S/P gamma knife surgery Crohn's disease Was on mesalamine at home Notes For Next Care Provider Medication Changes From Visit CTB Admission HPI Per Admitting Provider Patient is an 84-year-old female with history of diastolic heart failure, valvular heart disease (moderate mitral regurgitation, severe tricuspid regurgitation), chronic hypotension, pulmonary hypertension, ulcerative colitis, paroxysmal atrial fibrillation, COPD, chronic thrombocytopenia, hypothyroidism, chondrosarcoma, TAVR, B12 deficiency, meningioma, Crohn's disease, hemangioma of liver, chronic oxygen dependency on 2 L at bedtime, moderate dementia as per record, alcohol use disorder, past tobacco use disorder, recurrent falls and other medical problems presents with history of altered mental status, failure to thrive. Patient is drowsy and lethargic while in ED, history is obtained from ER physician, old records and patient's daughter at bedside. Patient's daughter states that since her discharge from the last hospitalization in August 2024 patient has been deteriorating gradually. She has been requiring supplemental oxygen throughout the day and has been extremely tired especially since 3 to 4 weeks duration. She has been sleeping mostly throughout the day and requiring 2 person assist for any activity. Her mental status have been gradually worsened over the. Since last hospital stay. Family discontinued Zyrtec which they believe is contributing to the confusion. They noticed her leg swelling has been gradually worsening and also noted her abdomen has been more distended. Patient's PCP was planning to schedule her for thoracentesis and repeat chest x-ray per patient's family. Patient's appetite has been significantly decreased and hardly eating or drinking. Patient did have minimal cough associated with shortness of breath with minimal activity. Her last thoracentesis was in October. No recent alcohol use per patient's family. Patient's daughter confirms patient to be DNI DNR. Patient ran out of her home inhaler and has been using rescue inhaler for the last few days. She was found to be hypothermic in ED and was placed on Neri hugger. Updated Medication List Medication Instructions Recorded Confirmed Type Oxygen Home 12/04/21 05/12/24 History albuterol sulfate 90 mcg/actuation 2 puff inhalation Q4H PRN 08/27/24 01/20/25 History aerosol inhaler Shortness Of Breath Or Wheezing furosemide 40 mg tablet 60 mg PO BID 08/27/24 01/20/25 History levothyroxine 100 mcg tablet 100 mcg PO DAILYBB 08/27/24 01/20/25 History midodrine 5 mg tablet 10 mg PO TID 01/20/25 01/20/25 History Hospital Stay Data Consultations 01/20/25 19:26 ED Decision to Admit Stat 01/20/25 22:00 Consult Cardiology Routine Consult Pulmonology Routine 01/22/25 07:52 Consult Nephrology Routine Diagnostic Imagining Performed 01/20/25 22:00 CT head/brain wo con Routine 01/21/25 07:00 US liver Routine 01/21/25 09:59 US point of care ultrasound Urgent 01/24/25 07:00 IR paracentesis abd w/img US Routine Pending Results Patient Have Any Pending Studies at Discharge: No Discharge Instructions Given to Patient (Per Discharging Provider) Ms. Stephen will be going home on home hospice. the hospice team will provide for any needs that may arise to assure Ms Stephen is comfortable Total Time Total Time Spent Total Time Spent (In Minutes): 0
== END 2025-01-26 22:07 | disposition expired | DRG 871 ==
LOC: ED 17:57 → SUATTDRO 20:37 → 4W 20:37 → 3E 01-24 19:30